=== PATIENT | female | born 1950 | race Caucasian/White ===

== ENCOUNTER → 2017-06-04 09:49 | Outpatient (CLI) | payer MEDICARE, SELFPAY ==
--- NOTE | 2017-06-04 09:54 | VDLE_ITS ---
Reason For Study: LEG PAIN AND SWELLING RIGHT LEFT GSV is normal. CFV is compressible, spontaneous, phasic, CFV is compressible, spontaneous, phasic, competent, and demonstrates normal competent and demonstrates normal augmentation. augmentation. FV is compressible, spontaneous, phasic, competent and demonstrates normal augmentation. POP V is compressible, spontaneous, phasic, competent and demonstrates normal augmentation. T/P Trunk is compressible. PTV is compressible. RT PerV is compressible. Procedure Exam performed in department. A preliminary report was called and/or faxed to Dr. Johnson. Interpretation Summary Deep veins of the right lower extremity are patent and compressible segmentally. There is no evidence of right lower extremity deep vein thrombosis. Valvular competence appears intact within the proximal deep venous system on the right . The right greater saphenous vein appears patent and compressible segmentally. Ordering Physician: Nicola Johnson Performed By: Ayleen Tong RVT
--- NOTE | 2017-06-06 10:59 | LEAS ---
Arterial Study - Arterial Study Arterial Study: This is a 66-year-old female with a history of smoking and diabetes mellitus. The patient presents with right lower extremity pain and discoloration of her toes, suspicious for ischemia. She is brought to the noninvasive vascular laboratory at this time for the purpose of bilateral noninvasive lower extremity arterial assessment. Doppler signal assessment was used to evaluate the pulses at ankle level bilaterally. The posterior tibial and dorsalis pedis pulses were triphasic bilaterally. Segmental limb pressures were obtained bilaterally. The right ankle pressure, as determined by posterior tibial pulse, was measured at 179 mmHg. The right ankle pressure, as determined by dorsalis pedis pulse, was measured at 154 mmHg. The right digital pressure was measured at 131 mmHg. The left ankle pressure, as determined by posterior tibial pulse, was measured at 189 mmHg. The left ankle pressure, as determined by dorsalis pedis pulse, was measured at 186 mmHg. The left digital pressure was measured at 148 mmHg. Pulse-volume recordings were obtained bilaterally and segmentally. Waveform amplitudes appeared to be satisfactory at all levels bilaterally, including low thigh, calf, ankle, and digital levels. Resting ankle-brachial indices were calculated bilaterally. The resting right ankle-brachial index was calculated to be 1.14. The resting left ankle-brachial index was calculated to be 1.20. Digital-brachial indices were calculated bilaterally. The right digital-brachial index was calculated to be 0.83. The left digital-brachial index was calculated to be 0.94. Impression: Based upon the findings of this resting noninvasive lower extremity arterial study, there is no evidence of significant atherosclerotic peripheral arterial occlusive disease in the lower extremities bilaterally. Triphasic waveforms were noted at ankle level bilaterally. Resting ankle-brachial indices are bilaterally normal. Digital-brachial indices are also normal bilaterally. In summary, this represents a normal resting noninvasive lower extremity arterial study bilaterally.
--- NOTE | 2017-06-06 11:02 | LEAS_ITS ---
Arterial Study - Arterial Study Arterial Study: This is a 66-year-old female with a history of smoking and diabetes mellitus. The patient presents with right lower extremity pain and discoloration of her toes, suspicious for ischemia. She is brought to the noninvasive vascular laboratory at this time for the purpose of bilateral noninvasive lower extremity arterial assessment. Doppler signal assessment was used to evaluate the pulses at ankle level bilaterally. The posterior tibial and dorsalis pedis pulses were triphasic bilaterally. Segmental limb pressures were obtained bilaterally. The right ankle pressure, as determined by posterior tibial pulse, was measured at 179 mmHg. The right ankle pressure, as determined by dorsalis pedis pulse, was measured at 154 mmHg. The right digital pressure was measured at 131 mmHg. The left ankle pressure, as determined by posterior tibial pulse, was measured at 189 mmHg. The left ankle pressure, as determined by dorsalis pedis pulse, was measured at 186 mmHg. The left digital pressure was measured at 148 mmHg. Pulse-volume recordings were obtained bilaterally and segmentally. Waveform amplitudes appeared to be satisfactory at all levels bilaterally, including low thigh, calf, ankle, and digital levels. Resting ankle-brachial indices were calculated bilaterally. The resting right ankle-brachial index was calculated to be 1.14. The resting left ankle- brachial index was calculated to be 1.20. Digital-brachial indices were calculated bilaterally. The right digital- brachial index was calculated to be 0.83. The left digital-brachial index was calculated to be 0.94. Impression: Based upon the findings of this resting noninvasive lower extremity arterial study, there is no evidence of significant atherosclerotic peripheral arterial occlusive disease in the lower extremities bilaterally. Triphasic waveforms were noted at ankle level bilaterally. Resting ankle-brachial indices are bilaterally normal. Digital-brachial indices are also normal bilaterally. In summary, this represents a normal resting noninvasive lower extremity arterial study bilaterally.
== END ==
PROVIDERS: Family Provider Family Medicine; PCP Family Medicine; Visit Provider Family Medicine
DX: I73.9 Peripheral vascular disease, unspecified (principal); M79.604 Pain in right leg
CPT/HCPCS: 93923; 93971

== ENCOUNTER → 2017-10-19 10:23 | Outpatient (CLI) | payer MEDICARE, SELFPAY | LOC: CVS 10:25 | PROVIDERS: Family Provider Family Medicine; PCP Family Medicine; Visit Provider Surgery Vascular Surgery | DX: M79.89 Other specified soft tissue disorders (principal); I87.2 Venous insufficiency (chronic) (peripheral); M79.604 Pain in right leg; M79.605 Pain in left leg | CPT/HCPCS: 93970 ==

== ENCOUNTER → 2018-04-27 09:05 | Outpatient (CLI) | payer MEDICARE, SELFPAY ==
--- NOTE | 2018-04-27 09:10 | ART_ITS ---
Reason For Study: Atherosclerosis Procedure A bilateral lower extremity continuous wave Doppler with analog waveform analysis and ankle brachial indexes. Left Segmental Pressures Left brachial= 178mmHg. Left posterior tibial artery = 187mmHg. Left dorsalis pedis artery = 206mmHg. Left digit = 163 mmHg. The left dorsalis pedis waveforms are triphasic. The left posterior tibial artery waveforms are triphasic. Right Segmental Pressures Right brachial= 157mmHg. Right posterior tibial artery = 187mmHg. Right dorsalis pedis artery = 190mmHg. Right digit = 161 mmHg. The right dorsalis pedis waveforms are triphasic. The right posterior tibial artery waveforms are triphasic. Indices The right ankle brachial index by the dorsalis pedis is 1.07. The right ankle brachial index by the posterior tibial artery is 1.05. The right digital-brachial index is 0.90. The left ankle brachial index by the dorsalis pedis is 1.16. The left ankle brachial index by the posterior tibial artery is 1.05. The left digital-brachial index is 0.92. Interpretation Summary 1. Bilateral triphasic flow with BRANDT 1.07/1.16 2. DBI 0.9/0.92. Ordering Physician: Armen Rivas Referring Physician: Nicola Johnson M.D. Performed By: Ayleen Tong RVT and Student
--- NOTE | 2018-04-27 09:10 | ADU_ITS ---
Reason For Study: Atheroslcerosis Right Velocities Left Velocities Ext. Iliac Artery, dist = 141 cm./sec. Ext Iliac Artery, dist = 167 cm./sec. Common Femoral Artery, mid = 139 cm./sec. Common Femoral Artery, mid = 154 cm./sec. Supf Femoral Artery, prox = 120 cm./sec. Supf. Femoral Artery, prox = 112 cm./sec. Supf Femoral Artery, mid = 101 cm./sec. Supf. Femoral Artery, mid = 111 cm./sec. Supf Femoral Artery, dist. = 99.3 cm./sec. Supf. Femoral Artery, dist = 101 cm./sec. Profunda Femoral Artery = 126 cm./sec. Profunda Femoral Artery = 91.9 cm./sec. Popliteal Artery, prox. = 55.2 cm./sec. Popliteal Artery, proximal, = 80.1 cm./sec. Popliteal Artery, mid = 65.4 cm./sec. Popliteal Artery, mid = 61.7 cm./sec. Popliteal Artery, dist = 90.4 cm./sec. Popliteal Artery, distal = 72.1 cm./sec. Post. Tibial Artery, prox = 76.8 cm./sec. Post Tibial Artery, mid = 118 cm./sec. Post. Tibial Artery, mid = 76.8 cm./sec. Post Tibial Artery, dist. = 72.1 cm./sec. Post. Tibial Artery, dist = 82.1 cm./sec. Post Tibial Arterty, prox was not visualized. Peroneal Artery not visualized due to pt body Peroneal Artery was not visualized due to pt body habitus. habitus. Ant. Tibial Artery, prox = 42 cm./sec. Ant.Tibial Artery, prox = 45.2 cm./sec. Ant. Tibial Artery, mid = 55 cm./sec. Ant Tibial Artery, mid = 53.8 cm./sec. Ant. Tibial Artery, dist = 60.1 cm./sec. Ant. Tibial Artery, distal = 58.1 cm./sec. Interpretation Summary 1. Bilateral with no stenosis where visualized and triphasic flow noted through tibials and into foot. Ordering Physician: Armen Rivas Referring Physician: Nicola Johnson M.D. Performed By: Ayleen Tong RVT and Student
== END ==
PROVIDERS: Family Provider Family Medicine; PCP Family Medicine; Referring Provider Surgery Vascular Surgery; Visit Provider Surgery Vascular Surgery
DX: I70.213 Atherosclerosis of native arteries of extremities with intermittent claudication, bilateral legs (principal)
CPT/HCPCS: 93922; 93925

== ENCOUNTER 2018-05-22 19:40 | Emergency (ER) | payer MEDICARE, SELFPAY ==
[2018-05-22 19:41] VITALS: BP 172/101; PULSE 104; RESP 26; TEMP 36.9; O2SAT 97; BMI 58.9
--- NOTE | 2018-05-22 19:43 | ED.RN ---
CALLED FOR EKG PER RN REQUEST, PULLED OLD EKGS FOR
--- NOTE | 2018-05-22 19:58 | RAD_ITS ---
STUDY: X-RAY CHEST REASON FOR EXAM: Female, 67 years old. Shortness of breath TECHNIQUE: Single frontal view COMPARISON: September 29, 2014 FINDINGS: The lungs are expanded. Mild interstitial prominence. Calcified granulomas of the left lung are stable. Normal size heart. Normal mediastinum and cheryle. Normal visualized pulmonary arteries. Calcified aortic arch and descending thoracic aorta. Degenerative changes of the thoracic spine. Normal visualized ribs, clavicles, and shoulders. There is no demonstrated abnormality of the visualized soft tissue structures of the upper abdomen. RAD/Chest 1 View (Portable) IMPRESSION: Stable mild interstitial prominence. Stable left calcified granulomas. Electronically Signed: Yann Tsang DO at 22:03 EDT Tel [phone], Service support ,
--- NOTE | 2018-05-22 19:59 | EKG12_ITS ---
Test Reason : PALPITATIONS Blood Pressure : / mmHG Vent. Rate : 103 BPM Atrial Rate : 103 BPM P-R Int : 166 ms QRS Dur : 092 ms QT Int : 332 ms P-R-T Axes : 060 051 039 degrees QTc Int : 434 ms Sinus tachycardia Otherwise normal ECG Confirmed by GREER BRAGG, BOB ([id number]), editor in chief DESTINY SAENZ ([id number]) on 05/24/2018 1:25:15 PM Referred By: JUN Confirmed By:BOB BUTTERFIELD MD
[2018-05-22 20:08] LABS: Basophil# 0.05 X10^3/uL; Basophil% 0.4 % (0-1); Eosinophil# 0.13 X10^3/uL; Eosinophils% 1.1 % (0-5); Hemoglobin 15.2 g/dl (12.0-15.0); Lymphocyte % 29.1 % (19-41); Mean Corpuscular Hgb 31.5 pg (27.0-32.0); Mean Corpuscular Volume 95.2 fL (81-99); Mean Platelet Vol. 12.1 fl (6.2-12.0); Monocyte# 0.85 X10^3/uL; Monocyte% 7.5 % (0-10); Neutrophil # 6.98 X10^3/uL (2.7-7.7); Neutrophil % 61.6 % (47-70); Platelet Count 275 K/mm3 (150-450); RBC Distribution Width CV 13.5 % (11.6-14.6); RBC Distribution Width SD 46.5 fl (35.1-43.9); Red Blood Count 4.83 M/mm3 (4.2-5.4); White Blood Count 11.3 K/mm3 (4.4-11.0)
[2018-05-22 20:10] LABS: POSITIVE COUNT NO; POSITIVE DIFFERENTIAL NO; POSITIVE MORPHOLOGY NO
[2018-05-22] MEDS: 0.9% Normal Saline 1,000 ML 150 ML IV (20:13)
[2018-05-22 20:27] LABS: Anion Gap 4 (5-15); BUN 13 mg/dL (7-18); BUN/Creat Ratio 15.9 RATIO (10-20); Calcium,Total 8.8 mg/dL (8.5-10.1); Chloride 101 mmol/L (98-107); Creatinine, Serum 0.82 mg/dL (0.55-1.02); EST Glomerular Filtration Rate 74 mL/min (>60); Est Glom Filt Rate - Afr Amer 90 mL/min (>60); Estimated Creatinine Clearance 48.47 ml/min; Glucose 114 mg/dL (74-106); Potassium 3.7 mmol/L (3.5-5.1); Sodium Level 137 mmol/L (136-145); Thyroid Stim Hormone (TSH) 2.84 uIU/mL (0.358-3.74)
[2018-05-22 20:40] VITALS: BP 157/92; PULSE 92; RESP 18; O2SAT 96
--- NOTE | 2018-05-22 20:49 | ED.VISSUMM ---
- ER Visit Summary Date of Service: 05/22/18 Chief Complaint: Palpitations History of Present Illness: The patient is a 67 F with a several week history of intermittent palpitations and chest heaviness. She reports a history of paroxysmal A. fib. 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 She believes she was on Rythmol and a medication that may have been metoprolol. Denies being on anticoagulant. Today the palpitations seemed worse so she called family member who brought her to the emergency room. Physical Examination: Blood pressure is 172/101, temperature 98.4, heart rate 104, respiratory rate 26, pulse ox 97% on room air. Patient is sitting upright in bed no acute distress. She is speaking full sentences. Head neck examination is unremarkable. Heart is tachycardic. Lungs sounds are clear. Abdomen is soft and nontender. Lower extremity examination was 2+ edema bilaterally. Test Results: EKG is sinus tach at 103 with no acute ischemia. CBC was a white count 11.3. Hemoglobin 15.2. Chemistry studies significant only for glucose of 114. Troponin and TSH are both unremarkable. Portable chest x-ray per my review shows chronic changes. Emergency Department Course and Treatment: With observation patient's heart rate is in the upper 70s to low 90s. Blood pressure is 119/91. I spoke with Dr. Montiel, on-call for cardiology. He recommended having the patient take a full size aspirin daily, Toprol-XL 25 mg daily, and place a 24-hour Holter monitor on the patient. He will see the patient in the office for follow-up. Patient is agreeable to this plan. She will be given aspirin and first dose of Toprol in the emergency room. Treatment Plan: [] Disposition: Discharge Impression: Palpitations with history of paroxysmal A. fib This note was generated with Total-traxation software. It may contain incorrect words, spelling, and punctuation that were not noted in review of the chart prior to signing ED Disposition - Plan for ED Patient: Referrals: Nicola Johnson DO [Primary Care Provider] -
[2018-05-22 20:54] VITALS: BP 119/91; PULSE 86; RESP 17; O2SAT 97
[2018-05-22 21:00] VITALS: BP 136/88; PULSE 97; RESP 19; O2SAT 100
--- NOTE | 2018-05-22 21:11 | ED.DEP ---
ED Disposition - Plan for ED Patient: Disposition: Home or Assisted Living Instructions: ED Palpitations Prescriptions: Aspirin 325 mg PO DAILY@0800 #30 tablet Metoprolol Succinate [Toprol Xl] 25 mg PO DAILY #30 tab.er.24h Referrals: yRder Montiel MD [STAFF PHYSICIAN] - 1-2 Weeks
[2018-05-22] MEDS: Aspirin 325 MG Tablet PO (21:18)
[2018-05-22] MEDS: Metoprolol(XL)Succ 25 MG Tablet PO (21:18)
[2018-05-22 21:27] VITALS: BP 136/80; PULSE 93; RESP 21; O2SAT 98
== END 2018-05-22 22:04 | disposition home or self-care (01) ==
PROVIDERS: Emergency Provider Emergency Medicine; Family Provider Family Medicine; PCP Family Medicine
DX: R00.2 Palpitations (principal); I48.0 Paroxysmal atrial fibrillation; G47.33 Obstructive sleep apnea (adult) (pediatric); M19.90 Unspecified osteoarthritis, unspecified site; Z72.0 Tobacco use
CPT/HCPCS: 71045; 80048; 84443; 84484; 85025; 93005; J7030; A4216

== ENCOUNTER → 2018-05-22 21:08 | Outpatient (CLI) | payer MEDICARE, SELFPAY ==
[2018-05-22 19:41] VITALS: BMI 58.9
== END ==
PROVIDERS: Family Provider Family Medicine; PCP Family Medicine; Visit Provider Internal Medicine Cardiovascular Disease
DX: R00.2 Palpitations (principal); I48.0 Paroxysmal atrial fibrillation; G47.33 Obstructive sleep apnea (adult) (pediatric); M19.90 Unspecified osteoarthritis, unspecified site; Z72.0 Tobacco use
CPT/HCPCS: 71045; 80048; 84443; 84484; 85025; 93005; 93225; 93226; 96360; 96361; 99285; J7030; A4216

== ENCOUNTER → 2018-08-16 | Outpatient (CLI) | payer MEDICARE, SELFPAY ==
[2018-07-07 15:13] VITALS: BMI 58.1
--- NOTE | 2018-08-16 14:49 | ECHOCS_ITS ---
Reason For Study: DYSPNEA/SOB Procedure This was a 2D Doppler, Color Flow transthoracic echocardiogram. The study was technically difficult. Contrast injection was performed. Exam performed in department. Left Ventricle Normal LV size. Left ventricular systolic function is normal. The estimated ejection fraction is 65 %. Diastolic function is indeterminate. No regional wall motion abnormalities noted. Right Ventricle Normal RV size. Normal systolic function. Atria Normal left atrium. Normal right atrium. No doppler evidence for ASD. Mitral Valve There is no mitral annular calcification. Normal mitral valve. Trivial mitral valve insufficiency. Tricuspid Valve Normal tricuspid valve. Trivial tricuspid valve insufficiency. Unable to estimate RV systolic pressure/pulmonary artery pressure due to technically difficult study. Aortic Valve The aortic valve is not well visualized. Pulmonic Valve The pulmonic valve is not well visualized. Great Vessels The aortic root is not well visualized. Pericardium/Pleural No pericardial effusion. Medication 22 gauge I.V. with prn adaptor inserted into right arm. Diluted definity 5ml given slow IV push to enhance endocardial definition. MMode/2D Measurements & Calculations LVIDd: 5.5 cm IVSd: 0.94 cm LAV(MOD-bp): 33.0 ml LVIDs: 3.8 cm LVPWd: 0.95 cm RVDd: 3.2 cm FS: 31.0 % LAV(MOD-bp) Indexed: 15.0 ml/m2 LAV(MOD-sp2): 39.4 ml LAV(MOD-sp4): 22.9 ml SV(MOD-sp4): 63.6 ml SV(sp4-el): 70.8 ml LVAd ap4: 33.1 cm2 EDV(MOD-sp4): 119.4 ml EDV(sp4-el): 127.5 ml LVAs ap4: 20.7 cm2 ESV(MOD-sp4): 55.8 ml ESV(sp4-el): 56.7 ml EF(MOD-sp4): 53.3 % EF(sp4-el): 55.5 % LA A4 area: 10.8 cm2 RA A4 area: 11.3 cm2 Time Measurements MV dec time: 0.30 sec Doppler Measurements & Calculations MV E max santiago: 68.5 cm/sec Lat Peak E' Santiago: 8.3 cm/sec Med Peak E' Santiago: 6.8 cm/sec MV A max santiago: 89.2 cm/sec E/E' lat: 8.3 E/E' med: 10.1 MV E/A: 0.77 Ao V2 max: 135.2 cm/sec LV V1 max: 108.7 cm/sec PA V2 max: 88.9 cm/sec Ao max P.3 mmHg LV V1 max P.7 mmHg Interpretation Summary The study was technically difficult. Contrast injection was performed. Left ventricular systolic function is normal. The estimated ejection fraction is 65 %. Trivial mitral valve insufficiency. Trivial tricuspid valve insufficiency. Unable to estimate RV systolic pressure/pulmonary artery pressure due to technically difficult study. Diastolic function is indeterminate. Ordering Physician: Ryder Montiel Referring Physician: ACOSTA KESSLER Performed By: Melissa Christensen RDCS
== END | disposition home or self-care (01) ==
LOC: CVS 14:49
PROVIDERS: Family Provider Family Medicine; PCP Family Medicine; Referring Provider Internal Medicine Cardiovascular Disease; Visit Provider Internal Medicine Cardiovascular Disease
DX: R06.00 Dyspnea, unspecified (principal); R00.2 Palpitations; I48.0 Paroxysmal atrial fibrillation
CPT/HCPCS: 93306; Q9957; A4216; C8929

== ENCOUNTER → 2019-03-29 10:45 | Outpatient (CLI) | payer MEDICARE, SELFPAY ==
[2018-07-07 15:13] VITALS: BMI 58.1
--- NOTE | 2019-03-29 10:48 | ECHOCS_ITS ---
Reason For Study: Palpitations Procedure This was a 2D Doppler, Color Flow transthoracic echocardiogram. The study was technically difficult. Contrast injection was performed. Exam performed in department. Left Ventricle Based upon the 2D echocardiographic and contrast enhanced images obtained there appears to be grossly normal left ventricular size, wall motion, and systolic function. The estimated ejection fraction is 65 %. Diastolic function is indeterminate. Right Ventricle Normal RV size. Normal systolic function. Atria The left atrium is mildly enlarged. Normal right atrium. No doppler evidence for ASD. Mitral Valve There is mild mitral annular calcification. Extension of the mitral annular calcification onto the base of the posterior mitral valve leaflet. Trivial mitral valve insufficiency. Tricuspid Valve Normal tricuspid valve. Trivial tricuspid valve insufficiency. Unable to estimate RV systolic pressure/pulmonary artery pressure due to technically difficult study. Aortic Valve The aortic valve is not well visualized. Pulmonic Valve The pulmonic valve is not well visualized. Great Vessels The aortic root is not well visualized. Pericardium/Pleural No pericardial effusion. Epicardial fat. Medication 22 gauge I.V. with prn adaptor inserted into right arm. Diluted definity 3ml given slow IV push to enhance endocardial definition. MMode/2D Measurements & Calculations LVIDd: 5.2 cm IVSd: 1.0 cm LA dimension: 3.9 cm LVIDs: 3.5 cm LVPWd: 1.1 cm FS: 31.7 % LAV(MOD-bp): 55.4 ml LA A4 area: 19.0 cm2 RA A4 area: 11.3 cm2 LAV(MOD-bp) Indexed: 25.1 ml/m2 LAV(MOD-sp2): 52.8 ml LAV(MOD-sp4): 55.6 ml Time Measurements MV dec time: 0.19 sec Doppler Measurements & Calculations MV E max santiago: 68.9 cm/sec Lat Peak E' Santiago: 7.2 cm/sec Med Peak E' Santiago: 6.7 cm/sec MV A max santiago: 86.6 cm/sec E/E' lat: 9.5 E/E' med: 10.3 MV E/A: 0.80 MV V2 max: 122.1 cm/sec MV P1/2t max santiago: 98.9 cm/sec Ao V2 max: 136.3 cm/sec MV max P.0 mmHg MV P1/2t: 46.8 msec Ao max P.4 mmHg MV V2 mean: 71.9 cm/sec MV dec slope: 618.4 cm/sec2 MV mean P.4 mmHg MV V2 VTI: 25.7 cm MVA(P1/2t): 4.7 cm2 LV V1 max: 93.0 cm/sec PA V2 max: 88.6 cm/sec LV V1 max P.5 mmHg Interpretation Summary The study was technically difficult. Contrast injection was performed. Based upon the 2D echocardiographic and contrast enhanced images obtained there appears to be grossly normal left ventricular size, wall motion, and systolic function. The estimated ejection fraction is 65 %. The left atrium is mildly enlarged. There is mild mitral annular calcification. Extension of the mitral annular calcification onto the base of the posterior mitral valve leaflet. Trivial mitral valve insufficiency. Trivial tricuspid valve insufficiency. Epicardial fat. Unable to estimate RV systolic pressure/pulmonary artery pressure due to technically difficult study. Diastolic function is indeterminate. Ordering Physician: Jarett Hurley Referring Physician: Jarett Hurley V Performed By: Juliocesar Romero RCS
== END ==
LOC: CVS 10:46
PROVIDERS: PCP Preventive Medicine Occupational Medicine; Referring Provider Internal Medicine Pulmonary Disease; Visit Provider Internal Medicine Pulmonary Disease
DX: R06.00 Dyspnea, unspecified (principal); R00.2 Palpitations
CPT/HCPCS: 93306; Q9957; A4216; C8929

== ENCOUNTER → 2019-04-19 10:30 | Outpatient (CLI) | payer MEDICARE, SELFPAY ==
[2018-07-07 15:13] VITALS: BMI 58.1
[2019-04-19 11:35] LABS: Erythrocyte Sedimentation Rate 14 mm/hr (0-30)
[2019-04-19 11:37] LABS: Hematocrit 43.3 % (37-47); Hemoglobin 13.8 g/dL (12.0-15.0); Mean Corp Hgb Conc 31.9 g/dL (32-36); Mean Corpuscular Hgb 30.3 pg (27.0-32.0); Mean Platelet Vol. 11.9 fl (6.2-12.0); Platelet Count 261 K/mm3 (150-450); RBC Distribution Width SD 45.1 fl (35.1-43.9); Red Blood Count 4.56 M/mm3 (4.2-5.4); White Blood Count 8.4 K/mm3 (4.4-11.0)
[2019-04-19 12:14] LABS: ALB/GLOB Ratio 0.9 RATIO (0.9-2.4); AST(SGOT) 8 U/L (15-37); Alanine Aminotransfer ALT/SGPT 20 U/L (13-56); Albumin, Serum 3.3 g/dL (3.2-5.0); Alkaline Phosphatase 119 U/L (45-117); Anion Gap 4 (5-15); BUN 13 mg/dL (7-18); BUN/Creat Ratio 16.6 RATIO (10-20); Calcium,Total 8.5 mg/dL (8.5-10.1); Chloride 103 mmol/L (98-107); Creatinine, Serum 0.78 mg/dL (0.55-1.02); EST Glomerular Filtration Rate 78 mL/min (>60); Est Glom Filt Rate - Afr Amer 94 mL/min (>60); Globulin 3.8 g/dL (2.2-4.2); Glucose 203 mg/dL (74-106); Protein, Total 7.1 g/dL (6.4-8.2); Rheumatoid Factor < 10.0 IU/mL (<15); Sodium Level 137 mmol/L (136-145); Thyroid Stim Hormone (TSH) 1.98 uIU/mL (0.358-3.74)
[2019-04-20 15:45] LABS: ANTINUCLEAR ANTIBODIES DIRECT Negative (Negative)
== END ==
LOC: LAB 10:32
PROVIDERS: PCP Preventive Medicine Occupational Medicine; Visit Provider Student in an Organized Health Care Education/Training Program
DX: M25.50 Pain in unspecified joint (principal); F41.9 Anxiety disorder, unspecified
CPT/HCPCS: 36415; 80053; 84443; 85027; 85652; 86038; 86140; 86431

== ENCOUNTER 2019-07-16 12:22 | Inpatient (IN) | payer MEDICARE, SELFPAY ==
[2018-07-07 15:13] VITALS: BMI 58.1
[2019-07-16] VITALS (14 sets, daily range): BP systolic 103–166; BP diastolic 77–92; PULSE 94–117; RESP 18–30; TEMP 36.6–37.8; O2SAT 94–98; BMI 58.8; BMI 58.1
--- NOTE | 2019-07-16 12:39 | RAD_ITS ---
STUDY: X-RAY CHEST REASON FOR EXAM: Female, 68 years old. CP SINCE YESTERDAY TECHNIQUE: Single frontal view of the chest. COMPARISON: May 22, 2018. FINDINGS: There are stable prominent interstitial markings. There is no new focal consolidation. There is a stable well-circumscribed round calcification within the left midlung which may reflect a granuloma. There is mild cardiomegaly. Normal mediastinum and cheryle. Normal visualized pulmonary arteries. Normal visualized aortic arch and descending thoracic aorta. There are diffuse degenerative changes of the visualized thoracic spine. Normal visualized ribs, clavicles, and shoulders. There is no demonstrated abnormality of the visualized soft tissue structures of the upper abdomen. RAD/Chest 1 View (Portable) IMPRESSION: Cardiomegaly. Electronically Signed: Viviane Bo MD at 14:12 EDT Tel , Service support ,
--- NOTE | 2019-07-16 12:40 | EKG12_ITS ---
Test Reason : Blood Pressure : / mmHG Vent. Rate : 114 BPM Atrial Rate : 114 BPM P-R Int : 162 ms QRS Dur : 094 ms QT Int : 320 ms P-R-T Axes : 068 -23 066 degrees QTc Int : 441 ms Sinus tachycardia Otherwise normal ECG Confirmed by BOB BUTTERFIELD MD ([id number]), editor department DIANA BERMAN ([id number] on 07/18/2019 3:18:33 PM Referred By: Confirmed By:BOB BUTTERFIELD MD
--- NOTE | 2019-07-16 12:43 | ED.VIS.GEN ---
History of Present Illness Chief Complaint: Chest Pain Informant: Patient Onset: Days - 2 days Context: Gradual Onset Current Severity: Moderate Maximum Severity: Moderate Narrative: Patient presents with chest pain or shortness of breath of the past 2 days. Patient states she went to the doctor last Wednesday to get her back adjusted. She woke the next morning with pain around her ribs and up into the left side of her neck. She does feel short of breath. She is coughing but states is not really any worse than her baseline. She has not noted a fever at home. - Past Medical History (1) Diabetes mellitus type 2 in obese Status: Chronic (2) Hypercholesteremia Status: Chronic (3) Obesity Status: Chronic (4) Obstructive sleep apnea Status: Chronic (5) Osteoarthritis Status: Chronic (6) Paroxysmal atrial fibrillation Status: Chronic (7) Peripheral vascular disease Status: Chronic Past Medical History - Allergies and Home Meds Allergies/Adverse Reactions: Allergies acetaminophen [From Darvocet-N] Allergy (Verified 07/16/19 12:31) Hives ampicillin Allergy (Verified 07/16/19 12:31) Hives codeine Allergy (Verified 07/16/19 12:31) Hives meperidine HCl [From Demerol] Allergy (Verified 07/16/19 12:31) Hives Penicillins [PCN] Allergy (Verified 07/16/19 12:31) Hives propoxyphene napsylate [From Darvocet-N] Allergy (Verified 07/16/19 12:31) Hives Primary Care Physician: Jarett Davies DO [COURTESY STAFF PHYSICIAN] - Prior records reviewed: Yes Surgical History: appendectomy, cholecystectomy, - - Patient has bilateral knee replacement cholecystectomy appendectomy Smoking Status: Current every day smoker - Family History Maternal Family History: Family History (Last Reviewed 07/07/18 @ 15:18 by Charleen Hall) Mother Heart disease Brother Heart disease Grandfather CVA (cerebral vascular accident) Grandmother Myocardial infarction Family History: Reports: Unknown, No pertinent history Review of Systems General: Denies: Fever Eyes: Denies: Visual changes - bilaterally ENT: Denies: Bilateral ear pain Cardiovascular: Reports: Chest pain Respiratory: Reports: Dyspnea, Cough Gastrointestinal: Denies: Abdominal pain, Nausea, Vomiting, Diarrhea Genitourinary: Denies: Dysuria Musculoskeletal: Denies: Extremity Pain Skin: Denies: Rash Neurological: Denies: Headache Hematologic: Denies: Easy bruising Allergy: Denies: Uticaria Physical Exam Vital Signs/Narrative: Vital Signs Temp Pulse Resp BP Pulse Ox 07/16/19 12:26 117 H 24 H 95 07/16/19 12:25 100.1 F H 117 H 30 H 166/79 H 94 07/16/19 12:22 100.1 F H 117 H 30 H 166/79 H 94 Inital Vital Signs reviewed: Yes General: Well nourished, Well developed Head: Normocephalic ENT: Moist mucous membranes Neck: Supple Cardiovascular: Tachycardia Respiratory: No distress, Diminished, - - Mild expiratory wheezes, most noted left upper lung Abdomen: Soft, Nontender Skin: Normal color Neurological: Alert, Oriented x3 Psychological: Normal affect Diagnostic/Tx/Re-eval 07/16/19 12:39 Chest 1 View (Portable) [RAD] Stat -Cardiomegaly Laboratory Results 07/16/19 07/16/19 07/16/19 12:35 12:35 12:35 WBC 17.5 H RBC 4.47 Hgb 13.8 Hct 42.7 MCV 95.5 MCH 30.9 MCHC 32.3 RDW Std Deviation 45.6 H RDW Coeff of Penny 13.1 Plt Count 317 MPV 11.1 Immature Gran % (Auto) 0.600 Neut % (Auto) 79.3 H Lymph % (Auto) 11.0 L Levy % (Auto) 8.5 Eos % (Auto) 0.2 Baso % (Auto) 0.4 Absolute Neuts (auto) 13.8 H Absolute Lymphs (auto) 1.92 Nucleated RBC % 0 Sodium 134 L Potassium 4.3 Chloride 98 Carbon Dioxide 30.0 Anion Gap 6 BUN 10 Creatinine 0.70 Estim Creat Clear Calc 39.21 Est GFR (MDRD) Af Amer 107 Est GFR (MDRD) Non-Af 89 BUN/Creatinine Ratio 14.3 Glucose 141 H Lactic Acid 1.1 Calcium 9.0 Total Bilirubin 1.00 Direct Bilirubin 0.28 AST 10 L ALT 17 Alkaline Phosphatase 96 Troponin I < 0.015 Total Protein 7.3 Albumin 2.9 L Globulin 4.4 H - EKG Initial EKG Interpretation: Sinus Tachycardia - Sinus tachycardia at 114. No acute ST change. - Medical Decision Making Patient was given albuterol MDI with spacer. Vital signs remained stable. Chest x-ray was read as cardiomegaly, however I am suspicious that she may have an infiltrate at the left base. She will be covered with Levaquin. Troponin is negative at this time with greater than 6 hours of pain. Covid test is currently pending. Patient will be admitted to the Covid floor for further testing and evaluation. ED Disposition - Plan for ED Patient: Disposition: Acute Care Hospital [facility] Diagnosis: Pneumonia, Chest pain Referrals: Jarett Davies DO [COURTESY STAFF PHYSICIAN] -
[2019-07-16 12:47] LABS: Absolute Lymphocyte Count 1.92 X10^3/uL (0.83-4.51); Absolute Neutrophil Count 13.8 X10^3/uL (2.0-7.7); Basophil# 0.07 X10^3/uL; Basophil% 0.4 % (0-1); Eosinophil# 0.03 X10^3/uL; Eosinophils% 0.2 % (0-5); Hematocrit 42.7 % (37-47); Hemoglobin 13.8 g/dL (12.0-15.0); Lymphocyte # 1.92 X10^3/ul (4.0); Mean Corp Hgb Conc 32.3 g/dL (32-36); Mean Corpuscular Hgb 30.9 pg (27.0-32.0); Mean Corpuscular Volume 95.5 fL (81-99); Mean Platelet Vol. 11.1 fl (6.2-12.0); Monocyte# 1.49 X10^3/uL; Monocyte% 8.5 % (0-10); NRBC Flagged by Analyzer 0 % (0-5); Neutrophil # 13.84 X10^3/uL (2.7-7.7); Neutrophil % 79.3 % (47-70); Platelet Count 317 K/mm3 (150-450); RBC Distribution Width CV 13.1 % (11.6-14.6); RBC Distribution Width SD 45.6 fl (35.1-43.9); Red Blood Count 4.47 M/mm3 (4.2-5.4); White Blood Count 17.5 K/mm3 (4.4-11.0)
[2019-07-16] MEDS: Acetaminophen 325 MG Tablet 650 MG PO (13:03)
[2019-07-16] MEDS: Aspirin 81 MG TAB.CHEW 324 MG PO (13:03)
[2019-07-16 13:06] LABS: AST(SGOT) 10 U/L (15-37); Alanine Aminotransfer ALT/SGPT 17 U/L (13-56); Albumin, Serum 2.9 g/dL (3.2-5.0); Alkaline Phosphatase 96 U/L (45-117); Anion Gap 6 (5-15); BUN 10 mg/dL (7-18); BUN/Creat Ratio 14.3 RATIO (10-20); Bilirubin, Direct 0.28 mg/dL (0.00-0.30); Chloride 98 mmol/L (98-107); EST Glomerular Filtration Rate 89 mL/min (>60); Est Glom Filt Rate - Afr Amer 107 mL/min (>60); Estimated Creatinine Clearance 39.21 ml/min; Globulin 4.4 g/dL (2.2-4.2); Glucose 141 mg/dL (74-106); Potassium 4.3 mmol/L (3.5-5.1); Protein, Total 7.3 g/dL (6.4-8.2); Sodium Level 134 mmol/L (136-145)
[2019-07-16 13:13] LABS: Lactic Acid 1.1 mmol/L (0.4-1.9)
[2019-07-16] MEDS: INHALER, ASSIST DEVICES 1 EACH SPACER INHALATION (13:56)
--- NOTE | 2019-07-16 14:21 | PCM.HP.STD ---
Problem List (1) Acute respiratory failure with hypoxia Status: Acute (2) Pneumonia Status: Acute Qualifiers: Pneumonia type: due to unspecified organism Laterality: left Lung location: lower lobe of lung Qualified Code(s): J18.9 - Pneumonia, unspecified organism (3) COPD exacerbation Status: Acute (4) HTN (hypertension) Status: Chronic Qualifiers: Hypertension type: essential hypertension Qualified Code(s): I10 - Essential (primary) hypertension (5) Morbid obesity Status: Chronic (6) Hypercholesteremia Status: Chronic (7) Peripheral vascular disease Status: Chronic (8) Osteoarthritis Status: Chronic Qualifiers: Osteoarthritis location: unspecified site Osteoarthritis type: unspecified Qualified Code(s): M19.90 - Unspecified osteoarthritis, unspecified site (9) Tobacco abuse disorder Status: Chronic (10) Diabetes mellitus type 2 in obese Status: Chronic (11) Paroxysmal atrial fibrillation Status: Chronic (12) Obstructive sleep apnea Status: Chronic History of Present Illness Date of Admission: 07/16/19 Chief Complaint: Dyspnea, cough, chest pain, fever The patient is a 68 y/o F w/ PMHx: Chronic COPD, Tobacco use, TUSHAR with q HS O2, HTN, HLD, PVD, PAF, Diabetes mellitus type II, Morbid Obesity who presents to the [facility] ED on 07/16/19 who presents to the [facility] ED on 07/16/19 with history of fatigue, malaise, lower back discomfort with adjustment per her primary care on Wednesday with following this awakening on Wednesday noting onset of worsening back discomfort, some neck discomfort, chest tightness and dyspnea as well as increased cough without productive sputum and mild nasal congestion with denied nausea, emesis, abdominal pain, diarrhea, alterations in sense of taste or smell, headache however not improving from to ED presentation with noted elevated temperatures although she denied any history of fever prior to this or did not notice it she states. She lives with several family members and friends and denies any of them having been recently ill. Work-up in the ED included T1 100.1, heart rate 117, BP 166/79, respiratory rate 30, 94% on room air, CBC with WC 17.5, hemoglobin 13.8, platelet 317 with left shift, no evidence of lymphopenia, CMP with sodium 134, glucose 141, lactic acid 1.1, otherwise not marked appearing, troponin less than 0.015, EKG with sinus tachycardia with no acute evidence of ischemia, chest x-ray read currently pending but per evaluation suspicious for possible left basilar infiltrate. In the ED patient administered aspirin, albuterol, Tylenol and Levaquin therapy. Past Medical History Past Medical History (Chronic Problems): Chronic Problems (Last Reviewed 07/07/18 @ 15:18 by Charleen Hall) HTN (hypertension) (Chronic) Morbid obesity (Chronic) Hypercholesteremia (Chronic) Peripheral vascular disease (Chronic) Urinary, incontinence, stress female (Chronic) Osteoarthritis (Chronic) Tobacco abuse disorder (Chronic) Obesity (Chronic) Diabetes mellitus type 2 in obese (Chronic) Paroxysmal atrial fibrillation (Chronic) Obstructive sleep apnea (Chronic) Medical History: Medical History (Last Reviewed 07/07/18 @ 15:18 by Charleen Hall) Hypercholesteremia (Chronic) E78.00 Peripheral vascular disease (Chronic) I73.9 Palpitations (Acute) R00.2 Vertigo (Acute) R42 Osteoarthritis (Chronic) M19.90 Diabetes mellitus type 2 in obese (Chronic) E11.9, E66.9 Paroxysmal atrial fibrillation (Chronic) I48.0 Obstructive sleep apnea (Chronic) G47.33 Allergies acetaminophen [From Darvocet-N] Allergy (Verified 07/16/19 12:31) Hives ampicillin Allergy (Verified 07/16/19 12:31) Hives codeine Allergy (Verified 07/16/19 12:31) Hives meperidine HCl [From Demerol] Allergy (Verified 07/16/19 12:31) Hives Penicillins [PCN] Allergy (Verified 07/16/19 12:31) Hives propoxyphene napsylate [From Darvocet-N] Allergy (Verified 07/16/19 12:31) Hives Home Medications: Ambulatory Orders Medication Instructions Recorded Insulin Glargine [Lantus SoloStar 100 units SUBCUT QHS 03/14/14 Pen] Liraglutide [Victoza 2-Bronson] 0.8 mg SQ DAILY 12/04/14 Oxycodone HCl/Acetaminophen 1 tab PO Q6H 04/02/16 [Percocet 5/325] Gabapentin [Neurontin] 300 mg PO TID 05/22/18 aspirin 81 mg tablet,delayed 81 mg PO DAILY #90 tab 05/16/19 release metoprolol succinate 25 mg 25 mg PO DAILY #90 tab 07/10/19 tablet,extended release 24 hr Fluticasone 0.05% [Flonase Nasal 1 spray NARES BID 07/16/19 [place]] Surgical History: Surgical History (Last Reviewed 07/07/18 @ 15:18 by Charleen Hall) History of appendectomy Z90.49 History of cardiac catheterization Z98.890 History of hysterectomy Z90.710 History of knee replacement Z96.659 Bilateral History of lumpectomy of both breasts Z98.890 History of tubal ligation Z98.51 Surgical History: appendectomy, cholecystectomy, - - Patient has bilateral knee replacement cholecystectomy appendectomy Psychiatric History: Anxiety, Depression [employer] History: No pertinent [employer] history Lives: With Family, Friends Smoking Status: Current every day smoker - Patient with ongoing 1 pack/day cigarette tobacco usage since youth. Tobacco Use: Cigarettes Alcohol: None Drugs: None - *Family History Maternal Family History: Family History (Last Reviewed 07/07/18 @ 15:18 by Charleen Hall) Mother Heart disease Brother Heart disease Grandfather CVA (cerebral vascular accident) Grandmother Myocardial infarction History Items: High Cholesterol, Heart Disease, Hypertension Paternal Family History: Family History (Last Reviewed 07/07/18 @ 15:18 by Cahrleen Hall) Mother Heart disease Brother Heart disease Grandfather CVA (cerebral vascular accident) Grandmother Myocardial infarction History Items: Hypertension Review of Systems Constitutional: Reports: Anorexia, Fever, Malaise, Weakness, Fatigue. Denies: Chills, Weight Change HEENT: Reports: Nasal Congestion, Sinus Congestion, Sinus Drainage. Denies: Head Aches Cardiovascular: Reports: Chest Tightness. Denies: Chest Pain, Chest Pressure, Light Headedness, Orthopnea, Palpitations, Syncope Respiratory: Reports: Cough, Shortness of Breath, Shortness of breath at rest, Shortness of breath upon exertion, Wheezing. Denies: Sputum production Gastrointestinal: Denies: Abdominal Pain, Nausea, Vomiting Genitourinary: Denies: Dysuria Musculoskeletal: Reports: Back Pain, Joint Pain, Muscle pain. Denies: Joint Tenderness Skin: Denies: Rash, Wounds Neurological: Denies: Numbness, Tingling, Focal weakness Psychiatric: Denies: Anxiety, Depression, Homicidal Ideations, Suicidal Ideations Hematologic/ Lymphatic: Denies: Easy Bruising, Easy Bleeding VTE Information - Inpt Only VTE Present on Admission: No VTE Mechan Device Prophylaxis: SCD's VTE Pharm Prophylaxis ordered?: Yes Patient Problems: Active and Suspected Problems (Last Reviewed 07/07/18 @ 15:18 by Charleen Hall) COPD exacerbation (Acute) Acute respiratory failure with hypoxia (Acute) Pneumonia (Acute) Subjective: Patient seated upright in ED bed, fatigued appearance, some conversational dyspnea noted, mild accessory muscle usage. Objective: Physical Examination: General: awake, alert, oriented x 3 and cooperative, seated upright in the ED bed, some conversational dyspnea, some accessory muscle usage, fatigued appearance, no market distress. Skin: normal color, turgor, no icterus, cyanosis. HEENT: AT/NC, EOMI, PERRLA, dry MM, no carotid bruits or JVD noted. Lungs: Diminished breath sounds, greater left based, and expiratory wheezing, worse posterior schmidt, mild increased work of breathing with very mild accessory muscle usage and some conversational dyspnea, no obvious rhonchi or rales. Heart: Tachycardic with regular rhythm; no gallop, rub audible. Abdomen: soft, morbidly obese, NTTP, ND, distant normal BS, no obvious HSM; however, habitus makes examination difficult. Extremities: no cyanosis, clubbing, or edema. Neurological: patient awake, alert, oriented x 3; cognitive function intact; pupils equally reactive to light and accomodation; cranial nerves II-XII grossly normal, moving all 4 extremities, no focal deficits, strength severely globally decreased secondary to acute presentation. Psychiatric: affect appears fatigued, ill-appearing, no acute evidence of depressive or anxiety feelings. - Physical Exam Vitals/I&O's: Vital Signs Temp Pulse Resp BP Pulse Ox 98 F 108 H 20 H 134/77 H 98 07/16/19 13:34 07/16/19 13:56 07/16/19 13:56 07/16/19 13:34 07/16/19 13:34 Oxygen Delivery Method Room Air Weight: 301 lb 9.478 oz Body Mass Index (BMI) 58.8 Laboratory Results 07/16/19 12:35: WBC 17.5 H, RBC 4.47, Hgb 13.8, Hct 42.7, MCV 95.5, MCH 30.9, MCHC 32.3, RDW Std Deviation 45.6 H, RDW Coeff of Penny 13.1, Plt Count 317, MPV 11.1, Immature Gran % (Auto) 0.600, Neut % (Auto) 79.3 H, Lymph % (Auto) 11.0 L, Haralson % (Auto) 8.5, Eos % (Auto) 0.2, Baso % (Auto) 0.4, Absolute Neuts (auto) 13.8 H, Absolute Lymphs (auto) 1.92, Nucleated RBC % 0 07/16/19 12:35: Sodium 134 L, Potassium 4.3, Chloride 98, Carbon Dioxide 30.0, Anion Gap 6, BUN 10, Creatinine 0.70, Estim Creat Clear Calc 39.21, Est GFR (MDRD) Af Amer 107, Est GFR (MDRD) Non-Af 89, BUN/Creatinine Ratio 14.3, Glucose 141 H, Calcium 9.0, Total Bilirubin 1.00, Direct Bilirubin 0.28, AST 10 L, ALT 17, Alkaline Phosphatase 96, Troponin I < 0.015, Total Protein 7.3, Albumin 2.9 L, Globulin 4.4 H 07/16/19 12:35: Lactic Acid 1.1 Assessment/Plan All Active Problems (Last Reviewed 07/07/18 @ 15:18 by Charleen Hall) COPD exacerbation (Acute) Acute respiratory failure with hypoxia (Acute) Pneumonia (Acute) Palpitations (Acute) Vertigo (Acute) Fatigue, malaise, lower back discomfort with adjustment per her primary care on Wednesday with following this awakening on Wednesday noting onset of worsening back discomfort, some neck discomfort, chest tightness and dyspnea as well as increased cough without productive sputum and mild nasal congestion with denied nausea, emesis, abdominal pain, diarrhea, alterations in sense of taste or smell, headache however not improving from to ED presentation with noted elevated temperatures although she denied any history of fever prior to this or did not notice it she states. 1. Acute Sepsis secondary to Acute Hypoxic Respiratory Failure secondary to Acute on chronic COPD exacerbation with suspected LLL PNA, Possible Acute Viral Syndrome, COVID-19: Will admit to the COVID unit with pending admission COVID testing per ED, will maintain on oxygen with wean as tolerated to room air, ATC duoneb, PRN albuterol, maintain on IV Levaquin, initiate and continue IV solumedrol, HOB, IS parameters w/ pending sputum cultures, respiratory viral panel and urine antigens, will obtain procalcitonin, CRP, D-dimer, CPK, Ferritin, LDH, cycle cardiac enzymes, repeat EKG in AM, continue supportive care including q 2 hour turning, judicious hydration, closely monitor for worsening status. 2. PAF: We will continue patient home metoprolol regimen, not anticoagulated. 3. Hypertension: Continue home regimen including metoprolol, PRN hydralazine. 4. Hyperlipidemia: Not on regimen, FLP in AM. 5. Morbid Obesity: Weight loss and lifestyle changes encouraged, nutrition consulted. 6. PVD: Continue aspirin, hypertensive regimen, diabetic regimen, FLP in a.m. as noted but not currently on statin therapy. 7. Tobacco Abuse: Encouraged cessation, inpatient consultation per RT, NR if desired. 8. Chronic pain syndrome: We will continue patient chronic scheduled narcotic regimen with current breakthrough given acute presentation as noted. 9. TUSHAR: Notes need for repeat assessment, following outpatient with Dr. Hurley, uses oxygen supplementation at night only. 10. GERD: Maintain on famotidine. 11. DVT prophylaxis: SCDs, Lovenox with pending d-dimer and if further elevated given COVID concerns will transition to higher dose. 12. CODE status: Patient does not have HCPOA nor living will in place. Given patient's comorbidities encouraged her to consider settings up another that she could discuss this with case management/social work. Discussed CODE status at length including difference between FULL code, DNR-CCA and DNR-CC status. Following discussions about the differences in these status, requested Full Code. Advanced Care Planning Face to Face Time: 16 minutes. Inpatient E&M: 21172 Init Hosp L3 Procedures: 20873 Advncd Care Plan 30 Min
--- NOTE | 2019-07-16 14:28 | NURSING ---
MS2 COVID FLOOR PNEUMONIA, CP WHITE
--- NOTE | 2019-07-16 14:42 | NURSING ---
CV ICU 203
[2019-07-16] MEDS: levoFLOXacin IV 750 MG/150 ML BAG 100 MG IV (15:19)
[2019-07-16 15:45] LABS: D-Dimer Quantitative (DVT/PE) 4.15 FEU/ug/m (0.27-0.49)
--- NOTE | 2019-07-16 16:19 | CT_ITS ---
STUDY: CTA CHEST REASON FOR EXAM: Female, 68 years old. COUGH,FATIGUE,MALAISE,LOW BACK Pain, chest TIGHNESS,DYSPNEA --history of respiratory FAILURE,PNEUMONIA,COPD, diabetes, hypertension-- +SMOKER 1PPD RADIATION DOSAGE (If Supplied By Facility): CTDIvol = ( 11.47 ) mGy, DLP = ( 500.17 ) mGycm TECHNIQUE: The examination was performed with the intravenous administration of 100CC ISOVUE 370. Post-processing of the angiographic images was performed, with multiplanar reformation and 3D reconstruction. Individualized dose optimization techniques were used for this CT. COMPARISON: None. FINDINGS: There is a small left pleural effusion associated with dependent consolidation within the left lower lobe. There is minimal dependent atelectasis within the right lower lobe. There are scattered tree-in-bud opacities throughout the lungs. There is bronchiectasis within the right middle lobe associated with partial collapse of the medial segment. There are scattered granulomas. There is a 2.3 mm nodule within the left upper lobe. Normal enhancement of the main pulmonary artery and right and left pulmonary arteries. Normal enhancement of the bilateral peripheral pulmonary arteries. There is no demonstrated pulmonary embolism. There is atherosclerotic calcification of the aortic arch . There is no demonstrated aortic dissection. There are calcifications of the coronary arteries. There is a small pericardial effusion measuring up to 5.1 mm. There are calcified mediastinal and hilar lymph nodes. Normal visualized trachea and bronchi. Normal chest wall structures. There are degenerative changes of thoracic spine. The limited images of the upper abdomen demonstrates splenic granulomas. There is a well-circumscribed low-attenuation 1.2 cm rounded focus within the left hepatic lobe which may reflect underlying granulomas. CT/CTA Chest W/WO Contrast IMPRESSION: No demonstrated pulmonary embolism or arterial dissection. Scattered tree-in-bud opacities, suggestive of small airway disease possibly of an infectious etiology. Left pleural effusion associated with dependent consolidation within the left lower lobe. Atherosclerosis. Minimal right basilar dependent atelectasis. Evidence of prior granulomatous disease. Electronically Signed: Viviane Bo MD at 19:04 EDT Tel , Service support ,
[2019-07-16] MEDS: 0.9% Normal Saline 1,000 ML 100 ML IV (16:29)
[2019-07-16] MEDS: oxyCODONE 5 MG Tablet PO ×2 (16:30→21:58)
[2019-07-16] MEDS: Insulin Lispro 100 UNIT/ML INSULN.PEN SC ×2 (16:30→21:50)
[2019-07-16 16:31] LABS: Bedside Glucose 162 mg/dL (70-110)
[2019-07-16] MEDS: MethylPREDNISolone 125 MG/2 ML Vial IV (16:34)
[2019-07-16 17:05] LABS: CPK Total, Creatine Kinase 26 U/L (26-192); Ferritin 248 ng/mL (8-252); LDH 188 U/L (84-246); Magnesium 1.8 mg/dL (1.6-2.6)
[2019-07-16] MEDS: Enoxaparin 150 MG/ML Syringe 140 MG SC (18:40)
[2019-07-16] MEDS: Ipratropium/Albuterol Sulfate 3 ML AMPUL.NEB INHALATION (19:25)
[2019-07-16] MEDS: Fluticasone 0.05% 1 SPRAY NASAL.SRY NASAL (21:48)
[2019-07-16] MEDS: 0.9% Saline Lock 10 ML Syringe IV (21:49)
[2019-07-16] MEDS: Gabapentin 300 MG Capsule PO (21:49)
[2019-07-16 22:36] LABS: Bedside Glucose 248 mg/dL (70-110)
--- NOTE | 2019-07-16 22:45 | NURSING ---
Report given to Lisa cuevasu weigh and charge worker at this time.
--- NOTE | 2019-07-16 22:58 | NURSING ---
Pts nandini Holloway aware of pts transfer to pcu 128 at this time.
[2019-07-17] VITALS (10 sets, daily range): BP systolic 119–153; BP diastolic 67–84; PULSE 72–114; RESP 16–22; TEMP 36.4–36.9; O2SAT 92–96
[2019-07-17] MEDS: Acetaminophen 325 MG Tablet 650 MG PO (00:52)
[2019-07-17] MEDS: guaiFENesin 10 ML UDC (200MG/10ML) 20 ML PO ×2 (01:37→14:12)
[2019-07-17] MEDS: Albuterol 2.5 MG/3 ML VIAL.NEB. INHALATION (01:49)
[2019-07-17] MEDS: oxyCODONE 5 MG Tablet PO ×5 (02:01→23:14)
[2019-07-17] MEDS: 0.9% Normal Saline 1,000 ML 100 ML IV ×2 (05:07→17:16)
[2019-07-17] MEDS: Enoxaparin 150 MG/ML Syringe 140 MG SC ×2 (05:29→19:00)
[2019-07-17] MEDS: Gabapentin 300 MG Capsule PO ×3 (05:29→21:58)
[2019-07-17] MEDS: 0.9% Saline Lock 10 ML Syringe IV ×2 (05:29→14:13)
--- NOTE | 2019-07-17 05:55 | RAD_ITS ---
STUDY: X-RAY CHEST REASON FOR EXAM: Female, 68 years old. Shortness of breath and cough TECHNIQUE: Single AP portable view of the chest. COMPARISON: 07/16/2019 FINDINGS: Stable thickening of the interstitial lung markings. There is a calcified granuloma in the peripheral left upper lobe. A small left pleural effusion. Mild enlargement of the cardiac silhouette. Normal mediastinum and cheryle. Normal visualized pulmonary arteries. Normal visualized aortic arch and descending thoracic aorta. Normal visualized thoracic spine. Normal visualized ribs, clavicles, and shoulders. There is no demonstrated abnormality of the visualized soft tissue structures of the upper abdomen. RAD/Chest 1 View (Portable) IMPRESSION: Diffuse pulmonary edema and small left pleural effusion suggestive of acute CHF exacerbation. Electronically Signed: Carl Canchola, at 17:03 EDT Tel , Service support ,
--- NOTE | 2019-07-17 05:55 | EKG12_ITS ---
Test Reason : AM EKG Blood Pressure : / mmHG Vent. Rate : 091 BPM Atrial Rate : 091 BPM P-R Int : 178 ms QRS Dur : 090 ms QT Int : 368 ms P-R-T Axes : 074 -18 043 degrees QTc Int : 452 ms Normal sinus rhythm Low voltage QRS Borderline ECG Confirmed by EMILY BRAGG, CLEMENCIA ([id number]), editorial specialist DIANA BERMAN ([id number]) on 07/20/2019 3:07:08 PM Referred By: ANIVAL Confirmed By:CLEMENCIA DIAZ MD
[2019-07-17 07:01] LABS: Absolute Lymphocyte Count 0.89 X10^3/uL (0.83-4.51); Absolute Neutrophil Count 13.8 X10^3/uL (2.0-7.7); Basophil# 0.01 X10^3/uL; Basophil% 0.1 % (0-1); Hematocrit 37.9 % (37-47); Hemoglobin 12.4 g/dL (12.0-15.0); Lymphocyte # 0.89 X10^3/ul (4.0); Lymphocyte % 5.8 % (19-41); Mean Corp Hgb Conc 32.7 g/dL (32-36); Mean Corpuscular Hgb 30.8 pg (27.0-32.0); Mean Platelet Vol. 11.2 fl (6.2-12.0); Monocyte# 0.51 X10^3/uL; Monocyte% 3.3 % (0-10); NRBC Flagged by Analyzer 0 % (0-5); Neutrophil % 90.1 % (47-70); Platelet Count 304 K/mm3 (150-450); RBC Distribution Width CV 12.7 % (11.6-14.6); Red Blood Count 4.03 M/mm3 (4.2-5.4); White Blood Count 15.3 K/mm3 (4.4-11.0)
[2019-07-17] MEDS: Insulin Lispro 100 UNIT/ML INSULN.PEN SC ×4 (07:06→21:56)
[2019-07-17 07:10] LABS: Bedside Glucose 222 mg/dL (70-110)
[2019-07-17] MEDS: Ipratropium/Albuterol Sulfate 3 ML AMPUL.NEB INHALATION ×3 (07:14→19:22)
[2019-07-17 07:26] LABS: ALB/GLOB Ratio 0.6 RATIO (0.9-2.4); AST(SGOT) 10 U/L (15-37); Alanine Aminotransfer ALT/SGPT 18 U/L (13-56); Albumin, Serum 2.5 g/dL (3.2-5.0); Alkaline Phosphatase 88 U/L (45-117); Anion Gap 5 (5-15); BUN 14 mg/dL (7-18); Calcium,Total 8.7 mg/dL (8.5-10.1); Chloride 103 mmol/L (98-107); Cholesterol 163 mg/dL (200); Creatinine, Serum 0.64 mg/dL (0.55-1.02); EST Glomerular Filtration Rate 99 mL/min (>60); Est Glom Filt Rate - Afr Amer 120 mL/min (>60); Estimated Creatinine Clearance 39.21 ml/min; Globulin 4.3 g/dL (2.2-4.2); Glucose 231 mg/dL (74-106); High Density Lipoprotein 36 mg/dL; Potassium 4.3 mmol/L (3.5-5.1); Protein, Total 6.8 g/dL (6.4-8.2); Sodium Level 135 mmol/L (136-145); Triglycerides 88 mg/dL; Very Low Density Lipoprotein 18 mg/dL (5-40)
[2019-07-17] MEDS: Aspirin 81 MG TAB.CHEW PO (08:33)
[2019-07-17] MEDS: Famotidine 20 MG Tablet PO (08:34)
[2019-07-17] MEDS: Metoprolol(XL)Succ 25 MG Tablet PO (08:34)
[2019-07-17 09:13] LABS: Procalcitonin 0.07 ng/mL (0.00-0.09)
[2019-07-17] MEDS: levoFLOXacin IV 750 MG/150 ML BAG 100 MG IV (11:00)
[2019-07-17 11:16] LABS: Bedside Glucose 246 mg/dL (70-110)
--- NOTE | 2019-07-17 16:18 | PCM.PN.HOSP ---
Patient Problems: Active and Suspected Problems (Last Reviewed 07/07/18 @ 15:18 by Charleen Hall) COPD exacerbation (Acute) Acute respiratory failure with hypoxia (Acute) Pneumonia (Acute) Pneumonia (Acute) Chest pain (Acute) Reason for Visit: pneumonia Subjective: anxious. breathing well. Vitals/I&O's: Vital Signs Temp Pulse Resp BP Pulse Ox 36.9 C 104 H 18 133/84 H 93 07/17/19 11:00 07/17/19 13:30 07/17/19 13:30 07/17/19 11:00 07/17/19 11:00 Oxygen Flow Rate (L/min) 2 Oxygen Delivery Method Room Air Weight: 135 kg Body Mass Index (BMI) 58.1 Intake and Output for Last 24 Hours 07/15/19 07/16/19 07/17/19 23:59 23:59 23:59 Intake Total 905 / 905 1805 / 1805 Balance 905 / 905 1805 / 1805 General: Alert, No apparent distress HEENT: Atraumatic, Normocephalic Oral: Moist Mucosa, No Gingival or Mucosal Lesions/ Ulcerations Neck: No Nodes, Trachea Midline Lungs: Clear to auscultation, Normal air movement, No rhonchi, No wheeze Cardiovascular: Regular rate, Regular Rhythm, Normal S1, Normal S2, No murmurs Abdomen: Bowel Sounds Present, Soft, Non Tender, Non-Distended, No Hepato-splenomegaly Extremities: No edema, No Calf Tenderness Psych/Mental Status: Normal Affect, Appropriate Microbiology Past 72 Hours 07/16/19 16:40 Mucosa - Nasopharyngeal Respiratory Panel (PCR) - Final 07/16/19 18:55 Urine, Clean Catch Legionella Antigen - Final 07/16/19 18:55 Urine, Clean Catch Streptococcus pneumoniae Antigen (M - Final 07/16/19 12:49 Mucosa - Nasopharyngeal Coronavirus COVID-19 PCR - Final Laboratory Results 07/16/19 12:35: Magnesium 1.8, Ferritin 248, Lactate Dehydrogenase 188, Total Creatine Kinase 26, C-React Prot Ext Range 150.00 H 07/16/19 14:25: Procalcitonin 0.07 07/16/19 14:25: Troponin I < 0.015 07/16/19 16:21: POC Glucose 162 H 07/16/19 18:45: Troponin I < 0.015 07/16/19 21:45: POC Glucose 248 H 07/17/19 06:53: WBC 15.3 H, RBC 4.03 L, Hgb 12.4, Hct 37.9, MCV 94.0, MCH 30.8, MCHC 32.7, RDW Std Deviation 44.0 H, RDW Coeff of Penny 12.7, Plt Count 304, MPV 11.2, Immature Gran % (Auto) 0.700, Neut % (Auto) 90.1 H, Lymph % (Auto) 5.8 L, Howell % (Auto) 3.3, Eos % (Auto) 0.0, Baso % (Auto) 0.1, Absolute Neuts (auto) 13.8 H, Absolute Lymphs (auto) 0.89, Nucleated RBC % 0 07/17/19 06:53: Sodium 135 L, Potassium 4.3, Chloride 103, Carbon Dioxide 27.0, Anion Gap 5, BUN 14, Creatinine 0.64, Estim Creat Clear Calc 39.21, Est GFR (MDRD) Af Amer 120, Est GFR (MDRD) Non-Af 99, BUN/Creatinine Ratio 22.0 H, Glucose 231 H, Calcium 8.7, Total Bilirubin 0.40, AST 10 L, ALT 18, Alkaline Phosphatase 88, Total Protein 6.8, Albumin 2.5 L, Globulin 4.3 H, Albumin/Globulin Ratio 0.6 L, Triglycerides 88, Cholesterol 163, LDL Cholesterol 109, VLDL Cholesterol 18, HDL Cholesterol 36 L 07/17/19 07:04: POC Glucose 222 H 07/17/19 10:59: POC Glucose 246 H Current Medications Acetaminophen (Tylenol) 650 mg PO Q4H PRN PRN PRN Reason: Pain Score 1-10/Temp > 100.7 F Last Admin: 07/17/19 00:52 Dose: 650 mg Documented by: Al Hydroxide/Mg Hydroxide (Mylanta Ii) 30 ml PO Q6H PRN PRN PRN Reason: Gastric Burning Albuterol Sulfate (Ventolin Aerosols) 2.5 mg INHALATION Q2H PRN PRN PRN Reason: Dyspnea, wheezing Last Admin: 07/17/19 01:49 Dose: 2.5 mg Documented by: Albuterol/Ipratropium (Duoneb) 3 ml INHALATION Q4HWA.RT KATHY Last Admin: 07/17/19 13:30 Dose: 3 ml Documented by: Aspirin (Aspirin, Baby) 81 mg PO DAILY@0800 [facility] Last Admin: 07/17/19 08:33 Dose: 81 mg Documented by: Dextrose (D50w Syringe) 0 gm IV X1 PRN; Protocol PRN Reason: Hypoglycemia Enoxaparin Sodium (Lovenox) 140 mg SC Q12@0600,1800 [facility] Last Admin: 07/17/19 05:29 Dose: 140 mg Documented by: Famotidine (Pepcid) 20 mg PO DAILY [facility] Last Admin: 07/17/19 08:34 Dose: 20 mg Documented by: Fluticasone Propionate (Flonase Nasal [place]) 1 spray NASAL BID [facility] Last Admin: 07/17/19 09:15 Dose: Not Given Documented by: Gabapentin (Neurontin) 300 mg PO TID [facility] Last Admin: 07/17/19 14:12 Dose: 300 mg Documented by: Glucagon () 1 mg IM .X1 PRN PRN Reason: Hypoglycemia Guaifenesin (Robitussin) 20 ml PO Q4H PRN PRN PRN Reason: COUGH Last Admin: 07/17/19 14:12 Dose: 20 ml Documented by: Hydralazine HCl (Apresoline Iv) 10 mg IV Q4H PRN PRN PRN Reason: SBP > 160 Sodium Chloride () 1,000 mls @ 100 mls/hr IV .Q10H [facility] Last Admin: 07/17/19 05:07 Dose: 100 mls/hr Documented by: Levofloxacin (Levaquin Iv) 750 mg in 150 mls @ 100 mls/hr IV Q24 [facility] Last Admin: 07/17/19 11:00 Dose: 100 mls/hr Documented by: Sodium Chloride () 250 mls @ 15 mls/hr IV .[id number] PRN PRN Reason: Saline Flush Sodium Chloride () 250 mls @ 15 mls/hr IV .[id number] PRN PRN Reason: Additional IVPB Infusion Insulin Glargine (Lantus (Bk)) 100 units SC QHS [facility] Last Admin: 07/16/19 21:50 Dose: 100 u Documented by: Insulin Human Lispro (Humalog Kwikpen (Bk)) 0 unit SC ACHS [facility]; Protocol Last Admin: 07/17/19 11:01 Dose: 4 u Documented by: Magnesium Hydroxide (Milk Of Magnesia) 30 ml PO DAILY PRN PRN PRN Reason: Constipation Melatonin (Melatonin) 3 mg PO QHS PRN PRN PRN Reason: INSOMNIA Methylprednisolone (Solu-Medrol) 40 mg IV Q8 [facility] Last Admin: 07/17/19 14:11 Dose: 40 mg Documented by: Metoprolol Succinate (Toprol Xl (Beta Vaughn)) 25 mg PO DAILY [facility] Last Admin: 07/17/19 08:34 Dose: 25 mg Documented by: Morphine Sulfate () 2 mg IV Q3H PRN PRN PRN Reason: Pain Score 6-10/10 Nicotine (Nicoderm Cq (Pbkc)) 21 mg TRANSDERM. DAILY [facility] Last Admin: 07/17/19 08:33 Dose: 21 mg Documented by: Nitroglycerin (Nitrostat) 0.4 mg SUBLINGUAL Q5M PRN PRN Reason: CARDIAC/CHEST PAIN Ondansetron HCl (Zofran) 4 mg IV Q8H PRN PRN PRN Reason: NAUSEA/VOMITING Oxycodone HCl (Oxyir) 5 mg PO Q6 [facility] Last Admin: 07/17/19 11:00 Dose: 5 mg Documented by: Oxycodone HCl (Oxyir) 5 mg PO Q4H PRN PRN PRN Reason: Pain Score 4-5/10 Last Admin: 07/17/19 02:01 Dose: 5 mg Documented by: Prochlorperazine Edisylate (Compazine Iv) 5 mg IV Q4H PRN PRN PRN Reason: Breakthrough Nausea/Vomiting Psyllium Hydrophilic Mucilloid (Metamucil) 1 packet PO DAILY PRN PRN PRN Reason: Constipation Senna/Docusate Sodium (Senokot-S, Joanne-Colace) 2 tablet PO BID PRN PRN PRN Reason: Constipation Sodium Chloride () 10 - 40 ml IV UD PRN PRN Reason: SALINE FLUSH Last Admin: 07/17/19 14:13 Dose: 10 ml Documented by: Throat Lozenges (Cepacol Sore Throat Lozenge) 1 lozenge MUCOUS MEM Q2H PRN PRN PRN Reason: SORE THROAT STROKE Vital Signs/Narrative: Vital Signs Pulse Resp 07/17/19 13:30 104 H 18 Medical Necessity - Tobacco Use Smoking Status: Current every day smoker Tobacco Use: Cigarettes Assessment/Plan All Active Problems (Last Reviewed 07/07/18 @ 15:18 by Charleen Hall) COPD exacerbation (Acute) Acute respiratory failure with hypoxia (Acute) Pneumonia (Acute) Pneumonia (Acute) Chest pain (Acute) Palpitations (Acute) Vertigo (Acute) 1. sepsis improved related to pneumonia recheck COVID-19 2. pneumonia presumed pneumococcal on levofloxacin 3. COPD exacerbation on methylpred 4. acute hypoxic respiratory insufficiency no respiratory failure 2/2 above 5. VTE prophylaxis: anticoagulated greater than 40 minutes, of which greater than 50% of the time was discussing COVID-19, COVID-19 sensitivity, pneumonia Inpatient E&M: 09872 Subs Hosp L3
[2019-07-17 16:41] LABS: Bedside Glucose 251 mg/dL (70-110)
--- NOTE | 2019-07-17 20:19 | EKG12_ITS ---
Test Reason : CHEST PAIN Blood Pressure : / mmHG Vent. Rate : 108 BPM Atrial Rate : 108 BPM P-R Int : 162 ms QRS Dur : 094 ms QT Int : 334 ms P-R-T Axes : 064 -21 050 degrees QTc Int : 447 ms Sinus tachycardia Low voltage QRS Poor R wave progression Borderline ECG Confirmed by EMILY BRAGG, CLEMENCIA ([id number]), writer editor DIANA BERMAN ([id number]) on 07/20/2019 2:57:13 PM Referred By: ELAINE Confirmed By:CLEMENCIA DIAZ MD
[2019-07-17] MEDS: Senna/Docusate Sodium 1 Tablet 2 TABLET PO (21:58)
[2019-07-17 22:26] LABS: Bedside Glucose 231 mg/dL (70-110)
[2019-07-18] VITALS (14 sets, daily range): BP systolic 125–151; BP diastolic 60–78; PULSE 86–105; RESP 19–25; TEMP 36.4–36.6; O2SAT 91–96
[2019-07-18] MEDS: 0.9% Normal Saline 1,000 ML 100 ML IV (02:58)
[2019-07-18] MEDS: Enoxaparin 150 MG/ML Syringe 140 MG SC (05:51)
[2019-07-18] MEDS: Gabapentin 300 MG Capsule PO (05:52)
[2019-07-18] MEDS: oxyCODONE 5 MG Tablet PO ×2 (05:52→12:13)
[2019-07-18] MEDS: Ipratropium/Albuterol Sulfate 3 ML AMPUL.NEB INHALATION ×2 (06:36→11:12)
[2019-07-18] MEDS: Insulin Lispro 100 UNIT/ML INSULN.PEN SC ×2 (06:49→11:13)
[2019-07-18 07:05] LABS: Bedside Glucose 162 mg/dL (70-110)
[2019-07-18] MEDS: Famotidine 20 MG Tablet PO (08:38)
[2019-07-18] MEDS: Aspirin 81 MG TAB.CHEW PO (08:38)
[2019-07-18] MEDS: Fluticasone 0.05% 1 SPRAY NASAL.SRY NASAL (08:39)
[2019-07-18] MEDS: guaiFENesin 10 ML UDC (200MG/10ML) 20 ML PO (08:41)
[2019-07-18] MEDS: Metoprolol(XL)Succ 25 MG Tablet PO (08:42)
--- NOTE | 2019-07-18 10:06 | CASEMGMT ---
RN CM Assessment Note Presentation: shortness of breath,pneumonia Intro role of CM and purpose of RN CM assessment to patient via phone. Pt is awake, alert and able to participate in assessment. Demographics, PCP and Pharmacy verified. Pt states she lives independently in home. independent in ADL, driving, but states her niece lives nearby and is able to assist if needed. PCP: Dr. Curran Specialists: Dr. Hurley, pulmonology; Dr. Montiel, cardiology; sees arthritis physician, not sure of name. Preferred Pharmacy: [facility] Insurance: Mad Mimi, card not available- call to company to verify, pt is [facility] medicare plan 1 HM and they use [facility] network. website [email or web address] Prescription Benefit: yes LNOK : NieceAmie Living Arrangements: Lives in one story home. one step down to living area, and one step up to kitchen. States she is independent in ADL. No care needs identified @ this time. Transportation: drives, or niece is able to assist with driving DME: Cpap, States she has walker but does not use. HHC/SNF: none Patient DC goals: Home DC PLAN: Home on dc. If home oxygen is needed, [facility] and [facility] are [facility] per [facility] site. RN CM advised to contact cm for any concerns/needs that may arise. Santosh SELBY RN ACM
[2019-07-18] MEDS: levoFLOXacin IV 750 MG/150 ML BAG 100 MG IV (10:52)
[2019-07-18 11:25] LABS: Bedside Glucose 254 mg/dL (70-110)
--- NOTE | 2019-07-18 11:33 | PCM.DC ---
- Discharge Diagnoses Current Active Problems: Current Active and Chronic Problems (Last Reviewed 07/07/18 @ 15:18 by Charleen Hall) HTN (hypertension) (Chronic) Morbid obesity (Chronic) COPD exacerbation (Acute) Acute respiratory failure with hypoxia (Acute) Pneumonia (Acute) Pneumonia (Acute) Chest pain (Acute) You will use the following diet at home:: Calorie/Carbohydrate Controlled (specify 1200, 1400, etc) - 1800 Your food should be the consistency of: Regular Discharge Activity: Return to Normal Activity Call your doctor if you observe: Fever of 101 or Higher, Shortness of breath Allergies/Adverse Reactions: Allergies acetaminophen [From Darvocet-N] Allergy (Verified 07/16/19 12:31) Hives ampicillin Allergy (Verified 07/16/19 12:31) Hives codeine Allergy (Verified 07/16/19 12:31) Hives meperidine HCl [From Demerol] Allergy (Verified 07/16/19 12:31) Hives Penicillins [PCN] Allergy (Verified 07/16/19 12:31) Hives propoxyphene napsylate [From Darvocet-N] Allergy (Verified 07/16/19 12:31) Hives Medications to take at Discharge Insulin Glargine [Lantus SoloStar Pen] 100 units SUBCUT QHS 03/14/14 Liraglutide [Victoza 2-Bronson] 0.8 mg SQ DAILY 12/04/14 Oxycodone HCl/Acetaminophen [Percocet 5-325] 1 tab PO Q6H 04/02/16 Gabapentin [Neurontin] 300 mg PO TID 05/22/18 aspirin 81 mg tablet,delayed release 81 mg PO DAILY #90 tab 07/07/18 metoprolol succinate 25 mg tablet,extended release 24 hr 25 mg PO DAILY #90 tab 07/10/19 Fluticasone 0.05% [Flonase Nasal [place]] 1 spray NARES BID 07/16/19 Levofloxacin [Levaquin] 750 mg PO DAILY #4 tab 07/18/19 Prednisone 10 mg PO DAILY #26 tab 07/18/19 The following prescriptions were given: Levofloxacin [Levaquin] 750 mg PO DAILY #4 tab Transmission Status: Pending to [facility]/pharmacy #[id number] Prednisone 10 mg PO DAILY #26 tab Transmission Status: Pending to [facility]/pharmacy #[id number] Primary Care Physician: Jarett Davies DO [COURTESY STAFF PHYSICIAN] - Within 2 Weeks Test Results: Test results from this visit will be discussed in further detail at your follow-up appointment, if applicable. Please Follow Up With: Jarett Hurley MD When: 4-6 weeks Proposed Discharge Date: 07/18/19
--- NOTE | 2019-07-18 11:37 | DS.PCM_ITS ---
Discharge Date and Diagnosis - Problem List Patient Problems: Active and Suspected Problems (Last Reviewed 07/07/18 @ 15:18 by Charleen Hall) COPD exacerbation (Acute) Acute respiratory failure with hypoxia (Acute) Pneumonia (Acute) Pneumonia (Acute) Chest pain (Acute) Date of Admission: 07/16/19 Date of Discharge: 07/18/19 - Primary Discharge Diagnosis Acute Problems: Active Problems (Last Reviewed 07/07/18 @ 15:18 by Charleen Hall) COPD exacerbation (Acute) Acute respiratory failure with hypoxia (Acute) Pneumonia (Acute) Pneumonia (Acute) Chest pain (Acute) - Secondary Discharge Diagnosis Chronic Problems: Chronic Problems (Last Reviewed 07/07/18 @ 15:18 by Charleen Hall) HTN (hypertension) (Chronic) Morbid obesity (Chronic) Hypercholesteremia (Chronic) Peripheral vascular disease (Chronic) Urinary, incontinence, stress female (Chronic) Osteoarthritis (Chronic) Tobacco abuse disorder (Chronic) Obesity (Chronic) Diabetes mellitus type 2 in obese (Chronic) Paroxysmal atrial fibrillation (Chronic) Obstructive sleep apnea (Chronic) Hospital Course and Treatment Imaging Results: Clinical Impression(s) from Imaging Studies Chest X-Ray 07/17/19 05:55 IMPRESSION: Diffuse pulmonary edema and small left pleural effusion suggestive of acute CHF exacerbation. Electronically Signed: Carl Canchola, at 17:03 EDT Tel , Service support , Operations: None Procedures: None Summary of Care Provided: The patient is a 68 year old F presents with dyspnea, cough, chest pain and fever. Patient had a CAT scan that was significant for an effusion and pneumonia. Patient was checked for COVID-19 x3 which were all negative. Patient had no obvious risk factors for COVID-19 so that is presumed to be a true negative test. Course complicated by her underlying COPD and was on steroids and breathing treatments and overall has done well. Patient will have an amatory pulse ox prior to discharge and if needed, patient will be given oxygen prior to discharge. Patient instructed to follow-up with her tax accountant, Dr. Hurley in the coming weeks. Patient expressed some concern as some black mold has been recently found in her attic. I informed the patient that that was likely not contributing directly to this acute exacerbation and pneumonia but did recommend that further be looked into by proper professionals. Also advised that she may bring that up with her tax accountant as well. [] Patient Problems: Active and Suspected Problems (Last Reviewed 07/07/18 @ 15:18 by Charleen Hall) COPD exacerbation (Acute) Acute respiratory failure with hypoxia (Acute) Pneumonia (Acute) Pneumonia (Acute) Chest pain (Acute) - Physical Exam Vitals/I&O's: Vital Signs Temp Pulse Resp BP Pulse Ox 36.5 C L 98 20 H 144/60 H 91 07/18/19 10:30 07/18/19 10:30 07/18/19 10:30 07/18/19 10:30 07/18/19 11:16 Oxygen Flow Rate (L/min) 2 Oxygen Delivery Method Room Air Weight: 135 kg Body Mass Index (BMI) 58.1 Intake and Output for Last 24 Hours 07/16/19 07/17/19 07/18/19 23:59 23:59 23:59 Intake Total 905 / 905 3435 / 3435 2560 / 2560 Output Total 325 / 325 275 / 275 Balance 905 / 905 3110 / 3110 2285 / 2285 General: Alert, No apparent distress HEENT: Atraumatic, Normocephalic Oral: Moist Mucosa, No Gingival or Mucosal Lesions/ Ulcerations Lungs: Clear to auscultation, Normal air movement, No rhonchi, No wheeze Cardiovascular: Regular rate, Regular Rhythm, Normal S1, Normal S2 Abdomen: Bowel Sounds Present, Soft, Non Tender, Non-Distended Microbiology Past 72 Hours 07/16/19 12:35 Blood Culture (Wb) - Anticubital Right Blood Culture - Preliminary No growth in 48 hours. 07/16/19 13:00 Blood Culture (Wb) - Right Hand Blood Culture - Preliminary No growth in 48 hours. 07/17/19 13:17 Mucosa - Nasopharyngeal Coronavirus COVID-19 PCR - Final 07/16/19 16:40 Mucosa - Nasopharyngeal Respiratory Panel (PCR) - Final 07/16/19 18:55 Urine, Clean Catch Legionella Antigen - Final 07/16/19 18:55 Urine, Clean Catch Streptococcus pneumoniae Antigen (M - Final 07/16/19 12:49 Mucosa - Nasopharyngeal Coronavirus COVID-19 PCR - Final Laboratory Results 07/17/19 16:34: POC Glucose 251 H 07/17/19 21:54: POC Glucose 231 H 07/18/19 06:48: POC Glucose 162 H 07/18/19 11:09: POC Glucose 254 H Current Medications Acetaminophen (Tylenol) 650 mg PO Q4H PRN PRN PRN Reason: Pain Score 1-10/Temp > 100.7 F Last Admin: 07/17/19 00:52 Dose: 650 mg Documented by: Al Hydroxide/Mg Hydroxide (Mylanta Ii) 30 ml PO Q6H PRN PRN PRN Reason: Gastric Burning Albuterol Sulfate (Ventolin Aerosols) 2.5 mg INHALATION Q2H PRN PRN PRN Reason: Dyspnea, wheezing Last Admin: 07/17/19 01:49 Dose: 2.5 mg Documented by: Albuterol/Ipratropium (Duoneb) 3 ml INHALATION Q4HWA.RT ON LICENSE OF [facility] Last Admin: 07/18/19 11:12 Dose: 3 ml Documented by: Aspirin (Aspirin, Baby) 81 mg PO DAILY@0800 ON LICENSE OF [facility] Last Admin: 07/18/19 08:38 Dose: 81 mg Documented by: Dextrose (D50w Syringe) 0 gm IV X1 PRN; Protocol PRN Reason: Hypoglycemia Enoxaparin Sodium (Lovenox) 140 mg SC Q12@0600,1800 ON LICENSE OF [facility] Last Admin: 07/18/19 05:51 Dose: 140 mg Documented by: Famotidine (Pepcid) 20 mg PO DAILY ON LICENSE OF [facility] Last Admin: 07/18/19 08:38 Dose: 20 mg Documented by: Fluticasone Propionate (Flonase Nasal [place]) 1 spray NASAL BID ON LICENSE OF [facility] Last Admin: 07/18/19 08:39 Dose: 1 spray Documented by: Gabapentin (Neurontin) 300 mg PO TID ON LICENSE OF [facility] Last Admin: 07/18/19 05:52 Dose: 300 mg Documented by: Glucagon () 1 mg IM .X1 PRN PRN Reason: Hypoglycemia Guaifenesin (Robitussin) 20 ml PO Q4H PRN PRN PRN Reason: COUGH Last Admin: 07/18/19 08:41 Dose: 20 ml Documented by: Hydralazine HCl (Apresoline Iv) 10 mg IV Q4H PRN PRN PRN Reason: SBP > 160 Sodium Chloride () 1,000 mls @ 100 mls/hr IV .Q10H ON LICENSE OF [facility] Last Infusion: 07/18/19 10:52 Dose: 0 mls/hr Documented by: Levofloxacin (Levaquin Iv) 750 mg in 150 mls @ 100 mls/hr IV Q24 ON LICENSE OF [facility] Last Admin: 07/18/19 10:52 Dose: 100 mls/hr Documented by: Sodium Chloride () 250 mls @ 15 mls/hr IV .[id number] PRN PRN Reason: Saline Flush Sodium Chloride () 250 mls @ 15 mls/hr IV .[id number] PRN PRN Reason: Additional IVPB Infusion Insulin Glargine (Lantus ([facility])) 100 units SC QHS ON LICENSE OF [facility] Last Admin: 07/17/19 21:57 Dose: 100 u Documented by: Insulin Human Lispro (Humalog Kwikpen ([facility])) 0 unit SC ACHS ON LICENSE OF [facility]; Protocol Last Admin: 07/18/19 11:13 Dose: 4 u Documented by: Magnesium Hydroxide (Milk Of Magnesia) 30 ml PO DAILY PRN PRN PRN Reason: Constipation Melatonin (Melatonin) 3 mg PO QHS PRN PRN PRN Reason: INSOMNIA Metoprolol Succinate (Toprol Xl (Beta Vaughn)) 25 mg PO DAILY ON LICENSE OF [facility] Last Admin: 07/18/19 08:42 Dose: 25 mg Documented by: Morphine Sulfate () 2 mg IV Q3H PRN PRN PRN Reason: Pain Score 6-10/10 Nicotine (Nicoderm Cq (Pbkc)) 21 mg TRANSDERM. DAILY ON LICENSE OF [facility] Last Admin: 07/18/19 08:38 Dose: 21 mg Documented by: Nitroglycerin (Nitrostat) 0.4 mg SUBLINGUAL Q5M PRN PRN Reason: CARDIAC/CHEST PAIN Ondansetron HCl (Zofran) 4 mg IV Q8H PRN PRN PRN Reason: NAUSEA/VOMITING Oxycodone HCl (Oxyir) 5 mg PO Q6 ON LICENSE OF [facility] Last Admin: 07/18/19 05:52 Dose: 5 mg Documented by: Oxycodone HCl (Oxyir) 5 mg PO Q4H PRN PRN PRN Reason: Pain Score 4-5/10 Last Admin: 07/17/19 02:01 Dose: 5 mg Documented by: Prednisone () 40 mg PO DAILY@0800 ON LICENSE OF [facility] Prochlorperazine Edisylate (Compazine Iv) 5 mg IV Q4H PRN PRN PRN Reason: Breakthrough Nausea/Vomiting Psyllium Hydrophilic Mucilloid (Metamucil) 1 packet PO DAILY PRN PRN PRN Reason: Constipation Senna/Docusate Sodium (Senokot-S, Joanne-Colace) 2 tablet PO BID PRN PRN PRN Reason: Constipation Last Admin: 07/17/19 21:58 Dose: 2 tablet Documented by: Sodium Chloride () 10 - 40 ml IV UD PRN PRN Reason: SALINE FLUSH Last Admin: 07/17/19 14:13 Dose: 10 ml Documented by: Throat Lozenges (Cepacol Sore Throat Lozenge) 1 lozenge MUCOUS MEM Q2H PRN PRN PRN Reason: SORE THROAT Discharge Diet: No Restrictions Discharge Activity: Return to Normal Activity Call your doctor if you observe: Fever of 101 or Higher, Shortness of breath Home Medications: Medications to take at Discharge Insulin Glargine [Lantus SoloStar Pen] 100 units SUBCUT QHS 03/14/14 Liraglutide [Victoza 2-Bronson] 0.8 mg SQ DAILY 12/04/14 Oxycodone HCl/Acetaminophen [Percocet 5-325] 1 tab PO Q6H 04/02/16 Gabapentin [Neurontin] 300 mg PO TID 05/22/18 aspirin 81 mg tablet,delayed release 81 mg PO DAILY #90 tab 07/07/18 metoprolol succinate 25 mg tablet,extended release 24 hr 25 mg PO DAILY #90 tab 07/10/19 Fluticasone 0.05% [Flonase Nasal [place]] 1 spray NARES BID 07/16/19 Levofloxacin [Levaquin] 750 mg PO DAILY #4 tab 07/18/19 Prednisone 10 mg PO DAILY #26 tab 07/18/19 Following Prescrptions Were Given to Patient: Levofloxacin [Levaquin] 750 mg PO DAILY #4 tab Transmission Status: [id number] Prednisone 10 mg PO DAILY #26 tab Transmission Status: Pending to [facility]/pharmacy #[id number] Primary Care Physician: Jarett Davies DO [COURTESY STAFF PHYSICIAN] - Within 2 Weeks Please Follow Up With: Jarett Hurley MD When: 4-6 weeks Disposition: Home Minutes spent on discharge:: 32 Patient Condition:: Good Medical Necessity - Tobacco Use Smoking Status: Current every day smoker Tobacco Use: Cigarettes Meaningful Use Info Meaningful Use Diagnoses (Choose all that apply): None applicable Inpatient E&M: 03838 Disch Hosp
[2019-07-18] MEDS: predniSONE 20 MG Tablet 40 MG PO (12:13)
--- NOTE | 2019-07-20 15:17 | CASEMGMT ---
RN MARANDA Discharge Follow-Up Phone Call. Lace: 10 Strata: 3 Discharge Date: 07/18/19 Adm Dx: Possible COVID, ? PNA, CP Attempted discharge follow-up phone call. No answer. VM message left for pt to return call if she has any concerns/needs. Phone number provided to this RN MARANDA. Domi NIETON RN CM
== END 2019-07-18 13:47 | disposition home or self-care (01) | DRG 871 ==
LOC: ED 14:38 → ICU 14:51 → PCU 07-17 01:27 → ICU 07-17 12:17
PROVIDERS: Admitting Provider Family Medicine; Emergency Provider Emergency Medicine; PCP Student in an Organized Health Care Education/Training Program
DX: A41.9 Sepsis, unspecified organism (principal); J18.9 Pneumonia, unspecified organism; J13 Pneumonia due to Streptococcus pneumoniae; J44.0 Chronic obstructive pulmonary disease with (acute) lower respiratory infection; J44.1 Chronic obstructive pulmonary disease with (acute) exacerbation; Z68.43 Body mass index [BMI] 50.0-59.9, adult; R09.02 Hypoxemia; I48.0 Paroxysmal atrial fibrillation; E11.51 Type 2 diabetes mellitus with diabetic peripheral angiopathy without gangrene; I10 Essential (primary) hypertension; N39.3 Stress incontinence (female) (male); E78.5 Hyperlipidemia, unspecified; M19.90 Unspecified osteoarthritis, unspecified site; G89.4 Chronic pain syndrome; K21.9 Gastro-esophageal reflux disease without esophagitis; G47.33 Obstructive sleep apnea (adult) (pediatric); F32.9 Major depressive disorder, single episode, unspecified; F41.9 Anxiety disorder, unspecified; F17.210 Nicotine dependence, cigarettes, uncomplicated; E66.01 Morbid (severe) obesity due to excess calories; Z79.4 Long term (current) use of insulin; Z79.899 Other long term (current) drug therapy; Z79.82 Long term (current) use of aspirin; Z96.653 Presence of artificial knee joint, bilateral
CPT/HCPCS: 36415; 71045; 71275; 80048; 80053; 80061; 80076; 82550; 82728; 82962; 83605; 83615; 83735; 84145; 84484; 85025; 85379; 86140; 87040; 87449; 87633; 87635; 93005; 94640; 97802; 99285; 99406; G2023; J7030; J7050; Q9967; A4216; U0004

== ENCOUNTER → 2019-07-18 13:53 | Outpatient (CLI) | payer MEDICARE, SELFPAY ==
[2019-07-16 16:07] VITALS: BMI 58.1
[2019-07-18 14:37] LABS: Absolute Lymphocyte Count 0.99 X10^3/uL (0.83-4.51); Absolute Neutrophil Count 18.1 X10^3/uL (2.0-7.7); Basophil# 0.04 X10^3/uL; Basophil% 0.2 % (0-1); Hematocrit 38.6 % (37-47); Hemoglobin 12.4 g/dL (12.0-15.0); Lymphocyte # 0.99 X10^3/ul (4.0); Lymphocyte % 4.8 % (19-41); Mean Corp Hgb Conc 32.1 g/dL (32-36); Mean Corpuscular Hgb 30.6 pg (27.0-32.0); Mean Corpuscular Volume 95.3 fL (81-99); Mean Platelet Vol. 11.7 fl (6.2-12.0); Monocyte# 1.36 X10^3/uL; Monocyte% 6.6 % (0-10); NRBC Flagged by Analyzer 0 % (0-5); Neutrophil # 18.06 X10^3/uL (2.7-7.7); Neutrophil % 87.3 % (47-70); Platelet Count 354 K/mm3 (150-450); RBC Distribution Width CV 12.9 % (11.6-14.6); RBC Distribution Width SD 45.1 fl (35.1-43.9); Red Blood Count 4.05 M/mm3 (4.2-5.4); White Blood Count 20.7 K/mm3 (4.4-11.0)
[2019-07-18 14:44] LABS: ALB/GLOB Ratio 0.6 RATIO (0.9-2.4); AST(SGOT) 13 U/L (15-37); Alanine Aminotransfer ALT/SGPT 19 U/L (13-56); Albumin, Serum 2.5 g/dL (3.2-5.0); Alkaline Phosphatase 87 U/L (45-117); Anion Gap 9 (5-15); BUN 18 mg/dL (7-18); BUN/Creat Ratio 20.7 RATIO (10-20); Calcium,Total 8.6 mg/dL (8.5-10.1); Chloride 104 mmol/L (98-107); Creatinine, Serum 0.87 mg/dL (0.55-1.02); EST Glomerular Filtration Rate 69 mL/min (>60); Est Glom Filt Rate - Afr Amer 83 mL/min (>60); Globulin 4.2 g/dL (2.2-4.2); Glucose 286 mg/dL (74-106); Potassium 4.4 mmol/L (3.5-5.1); Protein, Total 6.7 g/dL (6.4-8.2); Rheumatoid Factor < 10.0 IU/mL (<15); Sodium Level 139 mmol/L (136-145)
[2019-07-18 15:17] LABS: Hepatitis B Surface Antibody Non-Reactive; Hepatitis B Surface Antigen Non-Reactive (Nonreactive); Hepatitis C Antibody Non-Reactive (Nonreactive)
[2019-07-18 15:38] LABS: Erythrocyte Sedimentation Rate 69 mm/hr (0-30)
[2019-07-20 15:30] LABS: ANTINUCLEAR ANTIBODIES DIRECT Negative (Negative)
[2019-07-21 09:12] LABS: CCP IgG Antibodies 4 units (0-19); Hepatitis B Core AB IgM Negative (Negative)
== END ==
PROVIDERS: PCP Student in an Organized Health Care Education/Training Program; Visit Provider Internal Medicine Rheumatology
DX: M06.4 Inflammatory polyarthropathy (principal); M79.7 Fibromyalgia; M19.041 Primary osteoarthritis, right hand; M17.0 Bilateral primary osteoarthritis of knee; M21.41 Flat foot [pes planus] (acquired), right foot; M47.897 Other spondylosis, lumbosacral region; G25.81 Restless legs syndrome; I48.91 Unspecified atrial fibrillation
CPT/HCPCS: 36415; 80053; 85025; 85652; 86038; 86140; 86200; 86431; 86705; 86706; 86803; 87340

== ENCOUNTER 2019-11-15 22:38 | Observation (INO) | payer MEDICARE, SELFPAY ==
[2019-07-16 16:07] VITALS: BMI 58.1
[2019-11-15 21:21] VITALS: BMI 52.5
[2019-11-15 21:29] VITALS: BMI 52.6
[2019-11-15 21:47] VITALS: BP 138/80; PULSE 98; RESP 16; TEMP 37.1; O2SAT 97
[2019-11-15 21:50] VITALS: BMI 52.5
--- NOTE | 2019-11-15 22:40 | HP.PCM_ITS ---
Problem List (1) Acute cholecystitis Status: Acute History of Present Illness Date of Admission: 11/15/19 The patient is a 69 year old F who was transferred from outside ER with acute cholecystitis. The patient reports 5-day history of abdominal pain. She said the pain started in her lower abdomen is now migrated to the right upper quadrant and radiates to the back. She denies any fevers or chills or nausea or vomiting. Past Medical History Past Medical History (Chronic Problems): Chronic Problems (Last Reviewed 07/07/18 @ 15:18 by Charleen Hall) HTN (hypertension) (Chronic) Morbid obesity (Chronic) Hypercholesteremia (Chronic) Peripheral vascular disease (Chronic) Urinary, incontinence, stress female (Chronic) Osteoarthritis (Chronic) Tobacco abuse disorder (Chronic) Obesity (Chronic) Diabetes mellitus type 2 in obese (Chronic) Paroxysmal atrial fibrillation (Chronic) Obstructive sleep apnea (Chronic) Medical History: Medical History (Last Reviewed 07/07/18 @ 15:18 by Charleen Hall) Hypercholesteremia (Chronic) E78.00 Peripheral vascular disease (Chronic) I73.9 Palpitations (Acute) R00.2 Vertigo (Acute) R42 Osteoarthritis (Chronic) M19.90 Diabetes mellitus type 2 in obese (Chronic) E11.9, E66.9 Paroxysmal atrial fibrillation (Chronic) I48.0 Obstructive sleep apnea (Chronic) G47.33 Allergies ampicillin Allergy (Verified 07/16/19 12:31) Hives codeine Allergy (Verified 07/16/19 12:31) Hives meperidine HCl [From Demerol] Allergy (Verified 07/16/19 12:31) Hives Penicillins [PCN] Allergy (Verified 07/16/19 12:31) Hives propoxyphene napsylate [From Darvocet-N] Allergy (Verified 07/16/19 12:31) Hives Home Medications: Ambulatory Orders Medication Instructions Recorded Insulin Glargine [Lantus SoloStar 100 units SUBCUT QHS 03/14/14 Pen] Liraglutide [Victoza 2-Bronson] 0.8 mg SQ DAILY 12/04/14 Oxycodone HCl/Acetaminophen 1 tab PO Q6H 04/02/16 [Percocet 5-325] Fluticasone 0.05% [Flonase Nasal 1 spray NARES BID PRN 07/16/19 [place]] Aspirin [Low Dose Aspirin EC] 81 mg PO DAILY 11/15/19 Gabapentin [Neurontin] 400 mg PO TID 11/15/19 Metoprolol Succinate [Toprol Xl] 25 mg PO DAILY 11/15/19 Surgical History: Surgical History (Last Reviewed 07/07/18 @ 15:18 by Charleen Hall) History of appendectomy Z90.49 History of cardiac catheterization Z98.890 History of hysterectomy Z90.710 History of knee replacement Z96.659 Bilateral History of lumpectomy of both breasts Z98.890 History of tubal ligation Z98.51 Surgical History: appendectomy, cholecystectomy, - - Patient has bilateral knee replacement cholecystectomy appendectomy Psychiatric History: Anxiety, Depression 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: No pertinent 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 WINDOW TINTER history Smoking Status: Current every day smoker Tobacco Use: Cigarettes - *Family History Paternal Family History: Family History (Last Reviewed 07/07/18 @ 15:18 by Charleen Hall) Mother Heart disease Brother Heart disease Grandfather CVA (cerebral vascular accident) Grandmother Myocardial infarction History Items: Hypertension Maternal Family History: Family History (Last Reviewed 07/07/18 @ 15:18 by Charleen Hall) Mother Heart disease Brother Heart disease Grandfather CVA (cerebral vascular accident) Grandmother Myocardial infarction History Items: High Cholesterol, Heart Disease, Hypertension Review of Systems Constitutional: Denies: Anorexia, Fever HEENT: Denies: Difficulty Swallowing Cardiovascular: Denies: Chest Pain Respiratory: Denies: Cough, Pleuritic Pain, Shortness of Breath Gastrointestinal: Reports: Abdominal Pain. Denies: Diarrhea, Dyspepsia, Hematemesis, Hematochezia, Nausea, Vomiting Genitourinary: Denies: Dysuria Musculoskeletal: Denies: Joint Tenderness Skin: Denies: Jaundice Neurological: Denies: Balance problems Hematologic/ Lymphatic: Denies: Anemia VTE Information - Inpt Only VTE Present on Admission: No VTE Mechan Device Prophylaxis: SCD's Patient Problems: Active and Suspected Problems (Last Reviewed 07/07/18 @ 15:18 by Charleen Hall) Acute cholecystitis (Acute) - Physical Exam Vitals/I&O's: Vital Signs Temp Pulse Resp BP Pulse Ox 98.7 F 98 16 138/80 H 97 11/15/19 21:47 11/15/19 21:47 11/15/19 21:47 11/15/19 21:47 11/15/19 21:47 Oxygen Delivery Method Room Air Weight: 278 lb 3.2 oz Body Mass Index (BMI) 52.5 General: Alert, Oriented x3 Neck: No JVD Lungs: Normal air movement Cardiovascular: Regular rate, Regular Rhythm Abdomen: Soft, Non-Distended, Tender - Tender right upper quadrant with no guarding or rebound Extremities: No clubbing Skin: No rashes Musculoskeletal: No Muscle Wasting Neurological: Cranial nerves II-XII grossly intact Psych/Mental Status: Normal Affect Current Medications Acetaminophen (Tylenol) 650 mg PO Q4H PRN PRN PRN Reason: Pain or Fever Fluticasone Propionate (Flonase Nasal [place]) 1 spray NASAL BID PRN PRN Reason: ALLERGIES Gabapentin (Neurontin) 400 mg PO TID PENDING SALE TO [facility] Sodium Chloride () 250 mls @ 15 mls/hr IV .[id number] PRN PRN Reason: Saline Flush Sodium Chloride () 1,000 mls @ 100 mls/hr IV .Q10H KATHY Pantoprazole Sodium 40 mg/ (Sodium Chloride) 110 mls @ 330 mls/hr IV Q24 KATHY Ciprofloxacin (Cipro) 400 mg in 200 mls @ 200 mls/hr IV Q12 KATHY Metronidazole (Flagyl) 500 mg in 100 mls @ 100 mls/hr IV Q8 PENDING SALE TO [facility] Influenza Virus Vaccine Quadrival (Flucelvax /Fluzone ) 0.5 ml IM .ONCE ONE Stop: 11/16/19 10:01 Insulin Human Lispro (Humalog Kwikpen (Bkc)) 0 unit SC Q6 KATHY; Protocol Metoprolol Succinate (Toprol Xl (Beta Vaughn)) 25 mg PO DAILY PENDING SALE TO [facility] Morphine Sulfate () 2 - 4 mg IV Q2H PRN PRN PRN Reason: Pain Score 4-10/10 Ondansetron HCl (Zofran) 4 mg IV Q6H PRN PRN PRN Reason: NAUSEA Sodium Chloride () 10 - 40 ml IV UD PRN PRN Reason: SALINE FLUSH Assessment/Plan All Active Problems (Last Reviewed 07/07/18 @ 15:18 by Charleen Hall) COPD exacerbation (Acute) Acute respiratory failure with hypoxia (Acute) Pneumonia (Acute) Pneumonia (Acute) Chest pain (Acute) Acute cholecystitis (Acute) Palpitations (Acute) Vertigo (Acute) 69-year-old female with acute cholecystitis and dilated common bile duct 1. Patient was transferred from outside hospital with an ultrasound that showed a thickened gallbladder wall at 5 mm with multiple stones. The common bile duct was also over 7 mm. Her LFTs are normal. Patient also has elevated white count with left shift. 2. I discussed surgical options with the patient in detail. I discussed performing a laparoscopic cholecystectomy with possible common bile duct exploration tomorrow. I discussed the procedure in detail with the patient. I discussed the risks, benefits, and alternatives of the procedure. I discussed the risks including but not limited to bleeding, infection, pancreatitis, trans- cystic stent placement, injury to surrounding organs such as the liver, bile duct, bowels. I did discuss the possibility of having to convert to an open procedure as well as the possibility that if any injuries occurred this may necessitate further surgery at a tertiary care center. I discussed that if there was a stone is unable to be removed or stent was unable to be placed trans-cystic that I would perform an ERCP on Wednesday. 3. Patient will be admitted and labs will be rechecked in the morning and started on Cipro and Flagyl due to penicillin allergy. Patient will be kept n.p.o. and started on IV fluids. Insulin sliding scale for diabetes. Pain control. SCDs. PPI. Bossman Rios MD Pager: [facility] [address] [place] [address], [address] [place] [address] Office:
[2019-11-15] MEDS: 0.9% Normal Saline 1,000 ML 100 ML IV (23:08)
[2019-11-15] MEDS: Morphine 2 MG/ML Syringe IV (23:17)
[2019-11-15 23:21] LABS: Bedside Glucose 140 mg/dL (70-110)
[2019-11-16] VITALS (16 sets, daily range): BP systolic 126–179; BP diastolic 62–86; PULSE 89–97; RESP 16–18; TEMP 36.7–37.1; O2SAT 91–98; BMI 52.5; BMI 52.6
[2019-11-16] MEDS: Ondansetron 4 MG/2 ML Vial IV (02:59)
[2019-11-16] MEDS: Morphine 2 MG/ML Syringe IV ×5 (02:59→20:37)
[2019-11-16] MEDS: 0.9% Saline Lock 10 ML Syringe IV (02:59)
--- NOTE | 2019-11-16 05:00 | RAD_ITS ---
STUDY: X-RAY CHEST REASON FOR EXAM: Female, 69 years old. DYSPNEA -- PRE OP TECHNIQUE: Single AP portable view of the chest. COMPARISON: July 17, 2019 chest x-ray FINDINGS: There is increased linear density in the bilateral lung bases. There is a calcified granuloma in the left upper lobe. There is no demonstrated pleural abnormality. Normal size heart. Normal mediastinum and cheryle. Normal visualized pulmonary arteries. There is atherosclerotic calcification of the aortic arch with tortuosity. There are diffuse degenerative changes of the visualized thoracic spine. Normal visualized ribs, clavicles, and shoulders. There is no demonstrated abnormality of the visualized soft tissue structures of the upper abdomen. RAD/Chest 1 View (Portable) IMPRESSION: Bilateral lower lobe atelectasis cannot exclude early developing infiltrates. Findings suspicious for underlying chronic lung disease. Evidence of a granulomatous disease left upper lobe. Electronically Signed: Naima Marquez MD at 5:33 EDT Tel , Service support ,
[2019-11-16 05:20] LABS: Bedside Glucose 113 mg/dL (70-110)
[2019-11-16 05:51] LABS: Absolute Lymphocyte Count 1.54 X10^3/uL (0.83-4.51); Absolute Neutrophil Count 6.9 X10^3/uL (2.0-7.7); Basophil# 0.04 X10^3/uL; Basophil% 0.4 % (0-1); Eosinophil# 0.09 X10^3/uL; Eosinophils% 0.9 % (0-5); Hematocrit 37.3 % (37-47); Lymphocyte # 1.54 X10^3/ul (4.0); Mean Corp Hgb Conc 32.2 g/dL (32-36); Mean Corpuscular Hgb 29.8 pg (27.0-32.0); Mean Corpuscular Volume 92.6 fL (81-99); Mean Platelet Vol. 11.3 fl (6.2-12.0); Monocyte# 1.03 X10^3/uL; Monocyte% 10.7 % (0-10); NRBC Flagged by Analyzer 0 % (0-5); Neutrophil # 6.89 X10^3/uL (2.7-7.7); Neutrophil % 71.6 % (47-70); POSITIVE MORPHOLOGY YES; Platelet Count 309 K/mm3 (150-450); RBC Distribution Width CV 13.2 % (11.6-14.6); RBC Distribution Width SD 44.9 fl (35.1-43.9); Red Blood Count 4.03 M/mm3 (4.2-5.4); White Blood Count 9.6 K/mm3 (4.4-11.0)
[2019-11-16 05:58] LABS: Differential Indicated SCAN CRITERIA MET
--- NOTE | 2019-11-16 06:00 | EKG12_ITS ---
Test Reason : PRE-OP Blood Pressure : / mmHG Vent. Rate : 087 BPM Atrial Rate : 087 BPM P-R Int : 168 ms QRS Dur : 092 ms QT Int : 370 ms P-R-T Axes : 072 -43 021 degrees QTc Int : 445 ms Normal sinus rhythm Left axis deviation Abnormal ECG When compared with ECG of 17-JUL-2019 20:25, Non-specific change in ST segment in Inferior leads Confirmed by GREER BRAGG, BOB ([id number]), supervising editor trailer DESTINY SAENZ ([id number]) on 11/21/2019 12:44:09 PM Referred By: YARON Confirmed By:BOB BUTTERFIELD MD
[2019-11-16 06:13] LABS: Differential Comment SCANNED; Reactive Lymphocyte RARE
[2019-11-16] MEDS: metroNIDAZOLE 500 MG/100 ML BAG 100 MG IV ×3 (06:14→21:46)
[2019-11-16 06:37] LABS: ALB/GLOB Ratio 0.5 RATIO (0.9-2.4); AST(SGOT) 6 U/L (15-37); Alanine Aminotransfer ALT/SGPT 11 U/L (13-56); Albumin, Serum 2.3 g/dL (3.2-5.0); Alkaline Phosphatase 73 U/L (45-117); Anion Gap 5 (5-15); BUN 7 mg/dL (7-18); BUN/Creat Ratio 13.1 RATIO (10-20); Calcium,Total 8.5 mg/dL (8.5-10.1); Chloride 104 mmol/L (98-107); Creatinine, Serum 0.54 mg/dL (0.55-1.02); EST Glomerular Filtration Rate 121 mL/min (>60); Est Glom Filt Rate - Afr Amer 146 mL/min (>60); Estimated Creatinine Clearance 40.63 ml/min; Globulin 4.2 g/dL (2.2-4.2); Glucose 117 mg/dL (74-106); Lipase 46 U/L (73-393); Potassium 4.1 mmol/L (3.5-5.1); Protein, Total 6.5 g/dL (6.4-8.2); Sodium Level 136 mmol/L (136-145)
--- NOTE | 2019-11-16 07:19 | PN.SURG_ITS ---
Patient Problems: Active and Suspected Problems (Last Reviewed 07/07/18 @ 15:18 by Charleen Hall) Acute cholecystitis (Acute) Subjective: Patient reports feeling better than yesterday - Physical Exam Vitals/I&O's: Vital Signs Temp Pulse Resp BP Pulse Ox 98.4 F 91 18 126/62 H 98 11/16/19 03:37 11/16/19 03:37 11/16/19 03:37 11/16/19 03:37 11/16/19 03:37 Oxygen Flow Rate (L/min) 2 Oxygen Delivery Method Nasal Cannula Weight: 278 lb 3.2 oz Body Mass Index (BMI) 52.5 Intake and Output for Last 24 Hours 11/14/19 11/15/19 11/16/19 23:59 23:59 23:59 Intake Total 710 / 710 Output Total 500 / 500 Balance 210 / 210 General: Alert, Oriented x3 Neck: No JVD Cardiovascular: Regular rate, Regular Rhythm Abdomen: Tender - Tender right upper quadrant Laboratory Results 11/15/19 23:09: POC Glucose 140 H 11/16/19 05:12: POC Glucose 113 H 11/16/19 05:40: WBC 9.6, RBC 4.03 L, Hgb 12.0, Hct 37.3, MCV 92.6, MCH 29.8, MCHC 32.2, RDW Std Deviation 44.9 H, RDW Coeff of Penny 13.2, Plt Count 309, MPV 11.3, Immature Gran % (Auto) 0.400, Neut % (Auto) 71.6 H, Lymph % (Auto) 16.0 L, [place] % (Auto) 10.7 H, Eos % (Auto) 0.9, Baso % (Auto) 0.4, Absolute Neuts (auto) 6.9, Absolute Lymphs (auto) 1.54, Nucleated RBC % 0, Differential Comment SCANNED, Reactive Lymphocytes RARE 11/16/19 05:40: Sodium 136, Potassium 4.1, Chloride 104, Carbon Dioxide 27.0, Anion Gap 5, BUN 7, Creatinine 0.54 L, Estim Creat Clear Calc 40.63, Est GFR (MDRD) Af Amer 146, Est GFR (MDRD) Non-Af 121, BUN/Creatinine Ratio 13.1, Glucose 117 H, Calcium 8.5, Total Bilirubin 0.50, AST 6 L, ALT 11 L, Alkaline Phosphatase 73, Total Protein 6.5, Albumin 2.3 L, Globulin 4.2, Albumin/Globulin Ratio 0.5 L, Lipase 46 L 11/16/19 05:40: Hemoglobin A1c Pending Current Medications Acetaminophen (Tylenol) 650 mg PO Q4H PRN PRN PRN Reason: Pain Score 1-10/10/FEVER Dextrose (D50w Syringe) 0 gm IV X1 PRN; Protocol PRN Reason: Hypoglycemia Fluticasone Propionate (Flonase Nasal [place]) 1 spray NASAL BID PRN PRN PRN Reason: ALLERGIES Gabapentin (Neurontin) 400 mg PO TID [facility] Last Admin: 11/16/19 05:14 Dose: Not Given Documented by: Glucagon () 1 mg IM .X1 PRN PRN Reason: Hypoglycemia Sodium Chloride () 250 mls @ 15 mls/hr IV .[id number] PRN PRN Reason: Saline Flush Sodium Chloride () 1,000 mls @ 100 mls/hr IV .Q10H [facility] Last Infusion: 11/16/19 06:14 Dose: 0 mls/hr Documented by: Pantoprazole Sodium 40 mg/ (Sodium Chloride) 110 mls @ 330 mls/hr IV Q24 KATHY Ciprofloxacin (Cipro) 400 mg in 200 mls @ 200 mls/hr IV Q12 KATHY Metronidazole (Flagyl) 500 mg in 100 mls @ 100 mls/hr IV Q8 [facility] Last Admin: 11/16/19 06:14 Dose: 100 mls/hr Documented by: Influenza Virus Vaccine Quadrival (Flucelvax /Fluzone ) 0.5 ml IM .ONCE ONE Stop: 11/16/19 10:01 Insulin Human Lispro (Humalog Kwikpen (Bkc)) 0 unit SC Q6 KATHY; Protocol Last Admin: 11/16/19 05:13 Dose: Not Given Documented by: Metoprolol Succinate (Toprol Xl (Beta Vaughn)) 25 mg PO DAILY [facility] Morphine Sulfate () 2 - 4 mg IV Q2H PRN PRN PRN Reason: Pain Score 4-10/10 Last Admin: 11/16/19 02:59 Dose: 4 mg Documented by: Ondansetron HCl (Zofran) 4 mg IV Q6H PRN PRN PRN Reason: NAUSEA Last Admin: 11/16/19 02:59 Dose: 4 mg Documented by: Sodium Chloride () 10 - 40 ml IV UD PRN PRN Reason: SALINE FLUSH Last Admin: 11/16/19 02:59 Dose: 10 ml Documented by: Medical Necessity - Tobacco Use Smoking Status: Current every day smoker Tobacco Use: Cigarettes Assessment/Plan All Active Problems (Last Reviewed 07/07/18 @ 15:18 by Charleen Hall) COPD exacerbation (Acute) Acute respiratory failure with hypoxia (Acute) Pneumonia (Acute) Pneumonia (Acute) Chest pain (Acute) Acute cholecystitis (Acute) Palpitations (Acute) Vertigo (Acute) 69-year-old female with acute cholecystitis 1. Patient is doing well this morning but still having some pain. White count is returned normal. Plan for laparoscopic cholecystectomy with possible bile duct exploration this afternoon. ERCP if necessary tomorrow. Bossman Rios MD Pager: [facility] [address] [place] [address] [address] [place] [address] Office:
[2019-11-16 08:09] LABS: Hemoglobin A1c 6.2 % (3.8-5.6)
[2019-11-16] MEDS: Metoprolol(XL)Succ 25 MG Tablet PO (08:16)
[2019-11-16 09:55] LABS: Bedside Glucose 143 mg/dL (70-110)
--- NOTE | 2019-11-16 10:30 | GALL_PTH ---
PATIENT: [address] LOC: MS3 U#:[id number] AGE/SX: 69/F ROOM: UT322 RE11/15/[address]: Dr. Bossman Rios MD : [id number] BED: 1 DIS: 11/18/2019 SPEC #: [id number] RECD: 11/16/19 12:05 STATUS: MACHELLE YVETTE #: [id number] MENDEZ: 11/16/19 10:[address]: Bossman Rios DEPT: SURGICAL PATHOLOGY RECD BY: Romina Camacho ENTERED: 11/16/19 13:23 SP TYPE: ANGELITA LLAMAS DR: Dr. Jesse Curran DO Tissues: Gallbladder, NOS Procedures: Surgery Specimen Level III HEADER OPERATION: Laparoscopic cholecystectomy with IOC PRE-OP DIAGNOSIS: Acute cholecystitis TISSUE SUBMITTED: Gallbladder MICROSCOPIC DIAGNOSIS Gallbladder, cholecystectomy: Acute and chronic ulcerated cholecystitis and cholelithiasis. Focal dysplastic changes present. Cystic duct margin with no pathologic change. BEAN:kaden 11/20/19 COMMENT Case has been reviewed in consultation with Dr. Ramos who concurs with the above diagnosis. IDC:SJ MICROSCOPIC DESCRIPTION Slides are reviewed. GROSS DESCRIPTION Received is one container labeled with the patient's name and designated gallbladder. The specimen consists of a gallbladder measuring 12 cm in length and up to 4 cm in diameter. The external surface is pink-gurrola, smooth and glistening for the most part. Focally it is granular, hemorrhagic and contains cautery artifact. The gallbladder contains green-yellow mucoid bile and multiple multifaceted, utqdlsdt-snvtuy-itnxmd stones measuring in aggregate 7 x 6 x 3 cm and 1.5 to 2 cm in greatest dimension. The mucosa is bile-stained and without any mass lesions. The gallbladder wall measures 0.2 cm in thickness. [employer]iologic Technology Instructor sections from the gallbladder and the cystic duct are submitted in four cassettes. / BEAN:kaden 11/16/19 More sections are submitted in three more cassettes, 2-4. / BEAN:kaden 11/17/19 TC:2 CPT: 32785
[2019-11-16] MEDS: Ciprofloxacin 400 MG/200 ML BAG 200 MG IV ×2 (10:37→21:45)
[2019-11-16] MEDS: Bupiv/Epi 0.25% 30 ML Vial (10:50)
--- NOTE | 2019-11-16 10:56 | RAD_ITS ---
STUDY: INTRAOPERATIVE CHOLANGIOGRAM. REASON FOR EXAM: Female, 69 years old. LAP ESTEFANI -- 1 CINE RUN, 16.4 FLUORO SEC, 13.16mGy FLUOROSCOPY TIME (if supplied): ( 16.4 seconds ) minutes/seconds. A single loop consisting of 108 frames was submitted. TECHNIQUE: Intraoperative quadrant was performed by the surgeon. Imaging was submitted. COMPARISON: None. FINDINGS: The visualized intra and extrahepatic biliary ducts are unremarkable. No intraluminal filling defect is seen. There is free flow of contrast into the duodenum. RAD/Cholangiogram/ O R,Initial IMPRESSION: Unremarkable intraoperative cholangiogram. Electronically Signed: Jesse Huntley, at 13:31 EDT , Service support ,
--- NOTE | 2019-11-16 10:58 | CPS ---
SMI AT BEDSIDE...PT NOT IN ROOM
--- NOTE | 2019-11-16 12:39 | OP.PCM_ITS ---
Problem List (1) Acute cholecystitis Status: Resolved Report of Operation Date of Procedure: 11/16/19 Pre-Operative Diagnosis: Acute cholecystitis Post-Operative Diagnosis: Same Surgery/Procedure Performed:: Laparoscopic cholecystectomy with cholangiogram Description of Surgical Findings:: Inflamed area in the right upper quadrant. Inflamed gallbladder. Normal intraoperative cholangiogram Specimen's removed: Gallbladder and contents Description of Procedure: After obtaining informed consent patient was brought back to the operating room. General anesthesia was induced. The abdomen was prepped and draped in usual sterile fashion. A small midline incision was made superior to the umbilicus and deepened to the level of fascia. The fascia was elevated and incised. Next the peritoneum was elevated and incised in the same fashion. Finger sweep was performed and the Marsh trocar was placed into the abdomen. The balloon was inflated. The abdomen was inflated to 15 mmHg. Next a camera was introduced into the abdomen and the abdomen was inspected. Next under direct visualization three 5-mm ports were placed one subxiphoid and 2 subcostal. Next the gallbladder was elevated and retracted toward the right shoulder. The peritoneum was stripped from the gallbladder. The infundibulum was located and retracted laterally. Next the triangle of Calot was dissected and the cystic duct and cystic artery were identified. Cholangiograms were performed. The Rizo clamp was used to clamp across the infundibulum and the catheter needle was inserted into the gallbladder. Under fluoroscopy contrast was instilled into the gallbladder and the common duct, cystic duct as well as proximal hepatic ducts were identified. There was good filling of the duodenum. There were no filling defects noted in the common bile duct. The clamp was removed as well as the needle and the infundibulum was grasped once more. Three hemolock clips were placed across the cystic duct. The cystic duct was then divided leaving 2 clips on the stump. The cystic artery was clipped and divided in the same fashion. The hook cautery was then used to take the gallbladder off of the gallbladder bed. Hemostasis was obtained. Gallbladder fossa was irrigated and no active bleeding or bile leakage was noted. Next the camera was introduced in the subxiphoid port. An Endopouch bag was placed through the umbilical port and the gallbladder was placed into it. The gallbladder was then removed through the umbilical incision. The camera was then reinserted through the umbilical port. The gallbladder fossa was inspected once more and noted to be hemostatic with no leaking bile. The abdomen was suctioned dry. The 5 mm ports were remove d under direct visualization. The umbilical port was then removed and the air was removed from the abdomen. Next using an 0 Vicryl suture the umbilical fascia was closed in a [id number]-[id number] fashion. The umbilical port site was irrigated local anesthetic was administered to all the incisions. All the incisions were closed with interrupted subcuticular 4-0 Monocryl sutures followed by Steri-Strips and dressings. The patient was awoken and taken to PACU in stable condition. - Admit VTE Documentation VTE Mechan Device Prophylaxis: SCD's
[2019-11-16 13:21] LABS: Bedside Glucose 179 mg/dL (70-110)
[2019-11-16] MEDS: 0.9% Normal Saline 1,000 ML 100 ML IV (14:18)
[2019-11-16 14:30] LABS: Bedside Glucose 169 mg/dL (70-110)
[2019-11-16] MEDS: Insulin Lispro 100 UNIT/ML INSULN.PEN SC (14:32)
[2019-11-16] MEDS: Gabapentin 400 MG Capsule PO ×2 (15:54→21:45)
--- NOTE | 2019-11-16 16:10 | CASEMGMT ---
KWAKU CM in to complete JENKINS form with patient. JENKINS form explained to patient, patient voiced understanding. Patient signed JENKINS form and original filed in chart. Patient provided with copy of signed JENKINS form. Patient had no further questions or concerns at this time.
--- NOTE | 2019-11-16 17:06 | CPS ---
patient not interested
[2019-11-16 18:55] LABS: Bedside Glucose 122 mg/dL (70-110)
[2019-11-16 23:55] LABS: Bedside Glucose 134 mg/dL (70-110)
[2019-11-17] VITALS (8 sets, daily range): BP systolic 127–159; BP diastolic 50–78; PULSE 86–97; RESP 16–18; TEMP 36.8–37.2; O2SAT 91–97; BMI 52.6
[2019-11-17] MEDS: Morphine 2 MG/ML Syringe IV ×4 (01:14→15:26)
[2019-11-17] MEDS: 0.9% Normal Saline 1,000 ML 100 ML IV ×2 (02:45→15:20)
[2019-11-17] MEDS: metroNIDAZOLE 500 MG/100 ML BAG 100 MG IV ×3 (05:22→21:03)
[2019-11-17] MEDS: Gabapentin 400 MG Capsule PO ×3 (05:30→21:03)
[2019-11-17 05:41] LABS: Bedside Glucose 119 mg/dL (70-110)
[2019-11-17 06:08] LABS: Absolute Lymphocyte Count 1.31 X10^3/uL (0.83-4.51); Absolute Neutrophil Count 8.2 X10^3/uL (2.0-7.7); Basophil# 0.04 X10^3/uL; Basophil% 0.4 % (0-1); Eosinophil# 0.06 X10^3/uL; Eosinophils% 0.6 % (0-5); Hematocrit 38.8 % (37-47); Hemoglobin 12.1 g/dL (12.0-15.0); Lymphocyte # 1.31 X10^3/ul (4.0); Lymphocyte % 12.2 % (19-41); Mean Corp Hgb Conc 31.2 g/dL (32-36); Mean Corpuscular Hgb 29.4 pg (27.0-32.0); Mean Corpuscular Volume 94.2 fL (81-99); Mean Platelet Vol. 11.1 fl (6.2-12.0); Monocyte# 1.12 X10^3/uL; Monocyte% 10.4 % (0-10); NRBC Flagged by Analyzer 0 % (0-5); Neutrophil # 8.15 X10^3/uL (2.7-7.7); Neutrophil % 75.8 % (47-70); Platelet Count 297 K/mm3 (150-450); RBC Distribution Width SD 45.1 fl (35.1-43.9); Red Blood Count 4.12 M/mm3 (4.2-5.4); White Blood Count 10.7 K/mm3 (4.4-11.0)
[2019-11-17 06:40] LABS: ALB/GLOB Ratio 0.5 RATIO (0.9-2.4); AST(SGOT) 16 U/L (15-37); Alanine Aminotransfer ALT/SGPT 15 U/L (13-56); Albumin, Serum 2.2 g/dL (3.2-5.0); Alkaline Phosphatase 71 U/L (45-117); Anion Gap 3 (5-15); BUN 6 mg/dL (7-18); BUN/Creat Ratio 10.5 RATIO (10-20); Calcium,Total 8.3 mg/dL (8.5-10.1); Chloride 103 mmol/L (98-107); Creatinine, Serum 0.57 mg/dL (0.55-1.02); EST Glomerular Filtration Rate 111 mL/min (>60); Est Glom Filt Rate - Afr Amer 135 mL/min (>60); Estimated Creatinine Clearance 40.63 ml/min; Globulin 4.1 g/dL (2.2-4.2); Glucose 132 mg/dL (74-106); Potassium 4.1 mmol/L (3.5-5.1); Protein, Total 6.3 g/dL (6.4-8.2); Sodium Level 137 mmol/L (136-145)
--- NOTE | 2019-11-17 07:24 | PN.SURG_ITS ---
Subjective: Patient reports that she tolerated clears. No nausea or vomiting overnight. Abdominal pain is improved. - Physical Exam Vitals/I&O's: Vital Signs Temp Pulse Resp BP Pulse Ox 98.3 F 90 18 140/68 H 94 11/17/19 04:35 11/17/19 04:35 11/17/19 04:35 11/17/19 04:35 11/17/19 04:35 Oxygen Flow Rate (L/min) 2 Oxygen Delivery Method Nasal Cannula Weight: 278 lb 3.2 oz Body Mass Index (BMI) 52.5 Intake and Output for Last 24 Hours 11/15/19 11/16/19 11/17/19 23:59 23:59 23:59 Intake Total 2009 / 0 1900 / 1900 Output Total 1200 / 1400 850 / 850 Balance 810 / 1110 1050 / 1050 General: Alert, Oriented x3 Neck: No JVD Lungs: Clear to auscultation, Normal air movement Abdomen: Soft, Non-Distended, Tender - Mildly tender Musculoskeletal: No Muscle Wasting Neurological: Cranial nerves II-XII grossly intact Laboratory Results 11/16/19 05:40: Hemoglobin A1c 6.2 H 11/16/19 09:44: POC Glucose 143 H 11/16/19 13:15: POC Glucose 179 H 11/16/19 14:23: POC Glucose 169 H 11/16/19 18:04: POC Glucose 122 H 11/16/19 23:51: POC Glucose 134 H 11/17/19 05:28: POC Glucose 119 H 11/17/19 05:55: WBC 10.7, RBC 4.12 L, Hgb 12.1, Hct 38.8, MCV 94.2, MCH 29.4, MCHC 31.2 L, RDW Std Deviation 45.1 H, RDW Coeff of Penny 13.0, Plt Count 297, MPV 11.1, Immature Gran % (Auto) 0.600, Neut % (Auto) 75.8 H, Lymph % (Auto) 12.2 L, [place] % (Auto) 10.4 H, Eos % (Auto) 0.6, Baso % (Auto) 0.4, Absolute Neuts (auto) 8.2 H, Absolute Lymphs (auto) 1.31, Nucleated RBC % 0 11/17/19 05:55: Sodium 137, Potassium 4.1, Chloride 103, Carbon Dioxide 31.0, Anion Gap 3 L, BUN 6 L, Creatinine 0.57, Estim Creat Clear Calc 40.63, Est GFR (MDRD) Af Amer 135, Est GFR (MDRD) Non-Af 111, BUN/Creatinine Ratio 10.5, Glucose 132 H, Calcium 8.3 L, Total Bilirubin 0.40, AST 16, ALT 15, Alkaline Phosphatase 71, Total Protein 6.3 L, Albumin 2.2 L, Globulin 4.1, Albumin/Globulin Ratio 0.5 L Current Medications Acetaminophen (Tylenol) 650 mg PO Q4H PRN PRN PRN Reason: Pain Score 1-10/10/FEVER Dextrose (D50w Syringe) 0 gm IV X1 PRN; Protocol PRN Reason: Hypoglycemia Fluticasone Propionate (Flonase Nasal [place]) 1 spray NASAL BID PRN PRN PRN Reason: ALLERGIES Gabapentin (Neurontin) 400 mg PO TID [facility] Last Admin: 11/17/19 05:30 Dose: 400 mg Documented by: Glucagon () 1 mg IM .X1 PRN PRN Reason: Hypoglycemia Sodium Chloride () 250 mls @ 15 mls/hr IV .[id number] PRN PRN Reason: Saline Flush Sodium Chloride () 1,000 mls @ 100 mls/hr IV .Q10H [facility] Last Admin: 11/17/19 02:45 Dose: 100 mls/hr Documented by: Pantoprazole Sodium 40 mg/ (Sodium Chloride) 110 mls @ 330 mls/hr IV Q24 [facility] Last Infusion: 11/16/19 10:10 Dose: Infused Documented by: Ciprofloxacin (Cipro) 400 mg in 200 mls @ 200 mls/hr IV Q12 KATHY Last Infusion: 11/16/19 22:49 Dose: Infused Documented by: Metronidazole (Flagyl) 500 mg in 100 mls @ 100 mls/hr IV Q8 [facility] Last Infusion: 11/17/19 06:28 Dose: Infused Documented by: Influenza Virus Vaccine Quadrival (Flucelvax /Fluzone ) 0.5 ml IM .ONCE ONE Stop: 11/17/19 10:01 Insulin Human Lispro (Humalog Kwikpen (Bkc)) 0 unit SC Q6 [facility]; Protocol Last Admin: 11/17/19 05:29 Dose: Not Given Documented by: Metoprolol Succinate (Toprol Xl (Beta Vaughn)) 25 mg PO DAILY KATHY Last Admin: 11/16/19 08:16 Dose: 25 mg Documented by: Morphine Sulfate () 2 - 4 mg IV Q2H PRN PRN PRN Reason: Pain Score 4-10/10 Last Admin: 11/17/19 05:29 Dose: 4 mg Documented by: Ondansetron HCl (Zofran) 4 mg IV Q6H PRN PRN PRN Reason: NAUSEA Last Admin: 11/16/19 02:59 Dose: 4 mg Documented by: Sodium Chloride () 10 - 40 ml IV UD PRN PRN Reason: SALINE FLUSH Last Admin: 11/16/19 02:59 Dose: 10 ml Documented by: Medical Necessity - Tobacco Use Smoking Status: Current every day smoker Tobacco Use: Cigarettes Assessment/Plan All Active Problems (Last Reviewed 07/07/18 @ 15:18 by Charleen Hall) COPD exacerbation (Acute) Acute respiratory failure with hypoxia (Acute) Pneumonia (Acute) Pneumonia (Acute) Chest pain (Acute) Acute cholecystitis (Resolved) Palpitations (Acute) Vertigo (Acute) 69-year-old female with acute cholecystitis 1. Patient is doing well today. Her white count is returned to normal. She tolerated clears and I will advance her to full's for breakfast. If she tolerates that she can try regular food for lunch and maybe be discharged today or tomorrow. I encouraged her to ambulate and use incentive spirometer. Patient is on a sliding scale for her diabetes. Bossman Rios MD Pager: [facility] [address] [place] [address], [address] [place] [address] Office:
--- NOTE | 2019-11-17 07:28 | PCM.DC.GB ---
Discharge Diet: Light diet - advance as tolerated Discharge Activity: Return to Normal Activity, May Not Drive - for 2-3 days or while taking narcotic pain medicataions., - - Do not drive, work heavy equipment or sign legal documents for 24 hours. May shower in (days): 1 - with the bandage in place. Additional Activity Instructions:: Pain medication may cause nausea. You should typically eat light foods as you take your pain medications. Pain medication may also cause constipation. If this is a problem for you, please discuss with your doctor. Call your doctor if your incision/area has: Continuous Slow Oozing, Sudden Increased Bleeding, Increased Pain/ Swelling, Increased Redness, Foul Smelling Discharge, Fever of 101 or Higher Call your doctor if you observe: Fever of 101 or Higher Suture Line Care: Avoid Pulling/Pushing, Avoid Pinching/Bending Additional Dressing/Incision Instructions:: Leave operative bandaids on for 2 days. When you remove dressing, leave Steri-Strips on until your follow-up appointment, or until the Steri-Strips fall off on their own. Allergies/Adverse Reactions: Allergies ampicillin Allergy (Verified 07/16/19 12:31) Hives codeine Allergy (Verified 07/16/19 12:31) Hives meperidine HCl [From Demerol] Allergy (Verified 07/16/19 12:31) Hives Penicillins [PCN] Allergy (Verified 07/16/19 12:31) Hives propoxyphene napsylate [From Darvocet-N] Allergy (Verified 07/16/19 12:31) Hives Medications to take at Discharge Insulin Glargine [Lantus SoloStar Pen] 100 units SUBCUT QHS 03/14/14 Liraglutide [Victoza 2-Bronson] 0.8 mg SQ DAILY 12/04/14 Oxycodone HCl/Acetaminophen [Percocet 5-325] 1 tab PO Q6H 04/02/16 Fluticasone 0.05% [Flonase Nasal [place]] 1 spray NARES BID PRN 07/16/19 Aspirin [Low Dose Aspirin EC] 81 mg PO DAILY 11/15/19 Gabapentin [Neurontin] 400 mg PO TID 11/15/19 Metoprolol Succinate [Toprol Xl] 25 mg PO DAILY 11/15/19 Primary Care Physician: Jesse Curran DO [Primary Care Provider] - Test Results: Test results from this visit will be discussed in further detail at your follow-up appointment, if applicable. Please Follow Up With: Bossman Rios MD When: Please call to schedule 2 week follow up appointment. [phone]
[2019-11-17] MEDS: Metoprolol(XL)Succ 25 MG Tablet PO (09:32)
[2019-11-17] MEDS: Ciprofloxacin 400 MG/200 ML BAG 200 MG IV ×2 (09:51→21:03)
[2019-11-17] MEDS: oxyCODONE 5 MG Tablet PO ×3 (09:56→18:49)
--- NOTE | 2019-11-17 10:12 | NURSING ---
Sitting up in chair. Went for her first walk this morning.
[2019-11-17] MEDS: Insulin Lispro 100 UNIT/ML INSULN.PEN SC ×2 (11:51→18:49)
[2019-11-17 12:00] LABS: Bedside Glucose 223 mg/dL (70-110)
[2019-11-17 17:50] LABS: Bedside Glucose 150 mg/dL (70-110)
[2019-11-18] MEDS: oxyCODONE 5 MG Tablet PO ×3 (01:21→10:25)
[2019-11-18 01:26] LABS: Bedside Glucose 147 mg/dL (70-110)
[2019-11-18 03:00] VITALS: O2SAT 95
[2019-11-18 03:30] VITALS: BP 146/56; PULSE 97; RESP 18; TEMP 37; O2SAT 95
[2019-11-18] MEDS: Acetaminophen 325 MG Tablet 650 MG PO ×2 (03:49→08:26)
[2019-11-18] MEDS: 0.9% Normal Saline 1,000 ML 100 ML IV (03:52)
[2019-11-18] MEDS: metroNIDAZOLE 500 MG/100 ML BAG 100 MG IV (05:08)
[2019-11-18] MEDS: Insulin Lispro 100 UNIT/ML INSULN.PEN SC ×2 (05:28→11:31)
[2019-11-18] MEDS: Gabapentin 400 MG Capsule PO (05:29)
[2019-11-18 05:46] LABS: Bedside Glucose 176 mg/dL (70-110)
[2019-11-18 07:15] VITALS: O2SAT 95
[2019-11-18 08:20] VITALS: BP 141/72; PULSE 97; RESP 20; TEMP 36.6; O2SAT 93
[2019-11-18 08:25] VITALS: PULSE 97
[2019-11-18] MEDS: Metoprolol(XL)Succ 25 MG Tablet PO (08:25)
--- NOTE | 2019-11-18 10:09 | PCM.PN.SRG ---
Subjective: Patient without complaints of discomfort this morning. Tolerating diet. Objective: Abdomen is obese and soft - Physical Exam Vitals/I&O's: Vital Signs Temp Pulse Resp BP Pulse Ox 98.6 F 97 18 146/56 H 95 11/18/19 03:30 11/18/19 08:25 11/18/19 03:30 11/18/19 03:30 11/18/19 07:15 Oxygen Flow Rate (L/min) 2 Oxygen Delivery Method Nasal Cannula Weight: 278 lb 3.2 oz Body Mass Index (BMI) 52.5 Intake and Output for Last 24 Hours 11/16/19 11/17/19 11/18/19 23:59 23:59 23:59 Intake Total 2009 / 0 4800.00 / 5200.00 1770 / 1770 Output Total 1200 / 1400 2300 / 2450 700 / 700 Balance 810 / 1110 2500.00 / 2750.00 1070 / 1070 Laboratory Results 11/17/19 11:49: POC Glucose 223 H 11/17/19 17:34: POC Glucose 150 H 11/18/19 01:17: POC Glucose 147 H 11/18/19 05:25: POC Glucose 176 H Current Medications Acetaminophen (Tylenol) 650 mg PO Q4H PRN PRN PRN Reason: Pain Score 1-10/10/FEVER Last Admin: 11/18/19 08:26 Dose: 650 mg Documented by: Dextrose (D50w Syringe) 0 gm IV X1 PRN; Protocol PRN Reason: Hypoglycemia Fluticasone Propionate (Flonase Nasal [place]) 1 spray NASAL BID PRN PRN PRN Reason: ALLERGIES Gabapentin (Neurontin) 400 mg PO TID [facility] Last Admin: 11/18/19 05:29 Dose: 400 mg Documented by: Glucagon () 1 mg IM .X1 PRN PRN Reason: Hypoglycemia Sodium Chloride () 250 mls @ 15 mls/hr IV .[id number] PRN PRN Reason: Saline Flush Sodium Chloride () 1,000 mls @ 100 mls/hr IV .Q10H [facility] Last Admin: 11/18/19 03:52 Dose: 100 mls/hr Documented by: Pantoprazole Sodium 40 mg/ (Sodium Chloride) 110 mls @ 330 mls/hr IV Q24 [facility] Last Admin: 09/26/20 08:27 Dose: 330 mls/hr Documented by: Ciprofloxacin (Cipro) 400 mg in 200 mls @ 200 mls/hr IV Q12 [facility] Last Infusion: 11/17/19 22:11 Dose: Infused Documented by: Metronidazole (Flagyl) 500 mg in 100 mls @ 100 mls/hr IV Q8 [facility] Last Infusion: 11/18/19 06:18 Dose: Infused Documented by: Insulin Human Lispro (Humalog Kwikpen (Bkc)) 0 unit SC Q6 [facility]; Protocol Last Admin: 11/18/19 05:28 Dose: 2 u Documented by: Metoprolol Succinate (Toprol Xl (Beta Vaughn)) 25 mg PO DAILY [facility] Last Admin: 11/18/19 08:25 Dose: 25 mg Documented by: Morphine Sulfate () 2 - 4 mg IV Q2H PRN PRN PRN Reason: Pain Score 4-10/10 Last Admin: 11/17/19 15:26 Dose: 2 mg Documented by: Ondansetron HCl (Zofran) 4 mg IV Q6H PRN PRN PRN Reason: NAUSEA Last Admin: 11/16/19 02:59 Dose: 4 mg Documented by: Oxycodone HCl (Oxyir) 5 - 10 mg PO Q4H PRN PRN PRN Reason: Pain Score 4-10/10 Last Admin: 11/18/19 05:29 Dose: 5 mg Documented by: Sodium Chloride () 10 - 40 ml IV UD PRN PRN Reason: SALINE FLUSH Last Admin: 11/16/19 02:59 Dose: 10 ml Documented by: Medical Necessity - Tobacco Use Smoking Status: Current every day smoker Tobacco Use: Cigarettes Assessment/Plan All Active Problems (Last Reviewed 07/07/18 @ 15:18 by Charleen Hall) COPD exacerbation (Acute) Acute respiratory failure with hypoxia (Acute) Pneumonia (Acute) Pneumonia (Acute) Chest pain (Acute) Acute cholecystitis (Resolved) Palpitations (Acute) Vertigo (Acute) Okay for discharge home.
[2019-11-18] MEDS: Ciprofloxacin 400 MG/200 ML BAG 200 MG IV (10:25)
[2019-11-18 11:36] LABS: Bedside Glucose 228 mg/dL (70-110)
[2019-11-18 12:15] VITALS: BP 135/103; PULSE 88; RESP 18; TEMP 36.6; O2SAT 94
== END 2019-11-18 12:30 | disposition home or self-care (01) ==
PROVIDERS: Anesthesiology; Admitting Provider Surgery; PCP Student in an Organized Health Care Education/Training Program; Visit Provider Surgery
PROC: (CPT 47610; principal; 2019-11-16 10:10)
DX: K80.12 Calculus of gallbladder with acute and chronic cholecystitis without obstruction (principal); E66.01 Morbid (severe) obesity due to excess calories; E11.51 Type 2 diabetes mellitus with diabetic peripheral angiopathy without gangrene; M19.90 Unspecified osteoarthritis, unspecified site; G47.33 Obstructive sleep apnea (adult) (pediatric); I48.0 Paroxysmal atrial fibrillation; E78.00 Pure hypercholesterolemia, unspecified; I10 Essential (primary) hypertension; Z23 Encounter for immunization; N39.3 Stress incontinence (female) (male); F17.210 Nicotine dependence, cigarettes, uncomplicated; Z68.43 Body mass index [BMI] 50.0-59.9, adult; K83.8 Other specified diseases of biliary tract; Z79.899 Other long term (current) drug therapy; Z79.4 Long term (current) use of insulin; Z79.82 Long term (current) use of aspirin; Z86.718 Personal history of other venous thrombosis and embolism
CPT/HCPCS: 00790; 47563; 36415; 71045; 74300; 76000; 80053; 82962; 83036; 83690; 85025; 88304; 93005; 96361; 96365; 96366; 96367; 96375; 96376; 99218; 99406; G0008; J7030; J7120; 90686; A4216; G0378; J0744; J2405

== ENCOUNTER 2019-11-20 15:22 | Emergency (ER) | payer MEDICARE, SELFPAY ==
[2019-11-16 09:33] VITALS: BMI 52.5
[2019-11-20 15:24] VITALS: BP 130/71; PULSE 99; RESP 16; TEMP 36.8; O2SAT 97; BMI 56.0
--- NOTE | 2019-11-20 17:25 | ED.DCSUM_ITS ---
- ER Visit Summary Date of Service: 11/20/19 Chief Complaint: Cellulitis? History of Present Illness: The patient is a [address] Leoncio Olmstead. 4 days ago she had a laparoscopic cholecystectomy by Dr. Rios. She was discharged from the hospital 2 days ago. She reports that the day prior to discharge she began having pain in her right antecubital fossa where the IV was. States pain is now worsened. It is a sharp pain that is 7 on 10 at worst and 3-10 currently. Is worsened by bending her elbow and relieved by rest. She denies any paresthesias distally. Patient denies any fever or chills. She reports that her abdomen is healing well and she has no concerns in that regard. She reports that she has had 2 episodes of diarrhea today after eating yogurt. She is had nausea without vomiting. Her pain is controlled with oxycodone. She denies any pain currently. Physical Examination: Vitals: Stable. Afebrile. General: Well-nourished and well-developed. Head: Normocephalic atraumatic. Neck: Supple, no lymphadenopathy. No JVD. Nontender. Cardiovascular: Regular rate and rhythm. No murmurs. Respiratory: No respiratory distress. Clear to auscultation bilaterally. Abdominal: Soft, nontender, nondistended, normal bowel sounds. No guarding, rebound, or peritoneal signs. Incisions are clean, dry, intact. There is no erythema or induration to suggest infection. Back: Nontender. Extremities: Right antecubital fossa shows a palpable superficial clot with minimal surrounding erythema consistent with superficial thrombophlebitis. She has no swelling distal to this. There is no evidence of a deeper venous thrombosis. She is a 2+ radial pulse and normal sensation light touch. Skin: Normal color, no rash. Neurologic: Alert and oriented ?3. Cranial nerves II through XII are intact. Normal strength and sensation. Psych: Normal affect. Emergency Department Course and Treatment: Patient was treated with ibuprofen. Had a prolonged discussion with her about symptomatic management of this. Treatment Plan: Patient we discharged instructions to use ibuprofen and warm compresses. Follow-up with her primary care physician in 2 days for wound check. Return to the emergency department for any worsening symptoms. Disposition: To home in improved and stable condition. Impression: 1. Superficial thrombophlebitis right antecubital fossa. 2. 4-day status post cholecystectomy. This note was generated with [employer] dictation software. It may contain incorrect words, spelling, and punctuation that were not noted in review of the chart prio r to signing ED Disposition - Plan for ED Patient: Disposition: Home or Assisted Living Instructions: ED Phlebitis Superficial Referrals: Jesse Curran DO [Primary Care Provider] - 2 Days for wound check
[2019-11-20] MEDS: Ibuprofen 600 MG Tablet PO (17:41)
== END 2019-11-20 17:44 | disposition home or self-care (01) ==
LOC: ED 17:37
PROVIDERS: Emergency Provider Emergency Medicine; PCP Student in an Organized Health Care Education/Training Program
DX: I80.9 Phlebitis and thrombophlebitis of unspecified site (principal); Z90.49 Acquired absence of other specified parts of digestive tract; E11.9 Type 2 diabetes mellitus without complications; Z72.0 Tobacco use
CPT/HCPCS: 99283

== ENCOUNTER → 2020-04-08 10:10 | Outpatient (CLI) | payer MEDICARE, SELFPAY ==
[2020-04-08 11:25] LABS: Anion Gap 6 (5-15); BUN 14 mg/dL (7-18); BUN/Creat Ratio 16.2 RATIO (10-20); Calcium,Total 8.7 mg/dL (8.5-10.1); Chloride 100 mmol/L (98-107); Creatinine, Serum 0.87 mg/dL (0.55-1.02); EST Glomerular Filtration Rate 69 mL/min (>60); Est Glom Filt Rate - Afr Amer 84 mL/min (>60); Glucose 291 mg/dL (74-106); Potassium 4.1 mmol/L (3.5-5.1); Sodium Level 135 mmol/L (136-145)
== END ==
PROVIDERS: PCP Student in an Organized Health Care Education/Training Program; Referring Provider Student in an Organized Health Care Education/Training Program; Visit Provider Student in an Organized Health Care Education/Training Program
DX: I50.9 Heart failure, unspecified (principal)
CPT/HCPCS: 36415; 80048

== ENCOUNTER → 2020-07-11 13:08 | Outpatient (CLI) | payer MEDICARE, SELFPAY ==
--- NOTE | 2020-07-11 13:10 | CT_ITS ---
STUDY: LOW DOSE CT LUNG CANCER SCREENING REASON FOR EXAM: Female, 69 years old. TOBACCO USE 1.5 pack per day x55 years RADIATION DOSAGE (If Supplied By Facility): CTDIvol = ( 3.18 ) mGy, DLP = ( 104.83 ) mGycm TECHNIQUE: No contrast was administered. Low dose technique was utilized (average mAS-38 and kVp 120). 1.25 mm axial source images with a slice interval of 1.25-mm were reconstructed in lung windows. 2.5 mm axial source images with a slice interval of 2.5-mm were reconstructed in lung windows. 5.0 mm axial source images with a slice interval of 5.0-mm were reconstructed in soft tissue windows. Nodule measured using lung windows on PACS and/or independent workstation with automated measurement of minimum and maximum diameter. Nodule measurement reported as average diameter rounded to the nearest whole number. Growth is defined as an increase ins size of greater than 1.5 mm. COMPARISON: 07/16/2019 There is underlying emphysema. No organized infiltrate. No suspicious noncalcified mass or nodule. Scattered groundglass opacifications are noted along with tree-in-bud opacification suggesting small airways inflammation. There is a calcified granuloma in the left upper lobe. There is dependent atelectasis. Calcified coronary vessels noted. Peripheral calcifications in the thoracic aorta without aneurysm. Bony structures show degenerative change CT/Low Dose CT Lung Screening IMPRESSION: Lung-RADS category 2 - Continue annual screening with LDCT in 12 months. IMPORTANT NOTES FOR USE: ACR Lung-RADS Version 1.1 Assessment Categories Release Date: 2018 Category: Coded 0-4 bases on nodule(s) with highest degree of suspicion. Negative screen is defined as categories 1 and 2; a positive screen is defined as categories 3 and 4. Category 3 and 4A nodules that are unchanged on interval CT should be coded as category 2, and individuals returned to screening in 12 months. Category 4X: Category 3 or 4 nodules with additional imaging findings that increase the suspicion of lung cancer, such as spiculation, GGN that doubles in size in 1 year, enlarged lymph notes, etc. Category Modifiers: S (significant finding unrelated to lung cancer) Electronically Signed: Aftab Marquez MD at 13:36 EDT , Service support ,
[2020-07-11 13:38] LABS: Hematocrit 43.4 % (37-47); Hemoglobin 13.6 g/dL (12.0-15.0); Mean Corp Hgb Conc 31.3 g/dL (32-36); Mean Corpuscular Hgb 29.3 pg (27.0-32.0); Mean Corpuscular Volume 93.5 fL (81-99); Mean Platelet Vol. 11.4 fl (6.2-12.0); Platelet Count 303 K/mm3 (150-450); RBC Distribution Width CV 14.1 % (11.6-14.6); RBC Distribution Width SD 48.4 fl (35.1-43.9); Red Blood Count 4.64 M/mm3 (4.2-5.4); White Blood Count 8.3 K/mm3 (4.4-11.0)
[2020-07-11 13:52] LABS: Anion Gap 4 (5-15); BUN 12 mg/dL (7-18); BUN/Creat Ratio 16.3 RATIO (10-20); Calcium,Total 8.9 mg/dL (8.5-10.1); Chloride 104 mmol/L (98-107); Creatinine, Serum 0.74 mg/dL (0.55-1.02); EST Glomerular Filtration Rate 83 mL/min (>60); Est Glom Filt Rate - Afr Amer 101 mL/min (>60); Glucose 160 mg/dL (74-106); Potassium 4.3 mmol/L (3.5-5.1); Sodium Level 139 mmol/L (136-145)
== END ==
PROVIDERS: PCP Student in an Organized Health Care Education/Training Program; Referring Provider Internal Medicine Pulmonary Disease; Visit Provider Internal Medicine Pulmonary Disease
DX: Z01.818 Encounter for other preprocedural examination (principal); Z87.891 Personal history of nicotine dependence; Z12.2 Encounter for screening for malignant neoplasm of respiratory organs
CPT/HCPCS: 36415; 71271; 80048; 85027

== ENCOUNTER → 2020-08-16 16:26 | Outpatient (CLI) | payer MEDICARE, SELFPAY | PROVIDERS: PCP Student in an Organized Health Care Education/Training Program; Visit Provider Otolaryngology | DX: Z11.52 Encounter for screening for COVID-19 (principal) | CPT/HCPCS: 87635; U0005; U0003 ==

== ENCOUNTER 2020-10-04 21:01 | Emergency (ER) | payer MEDICARE, SELFPAY ==
[2020-10-04 21:03] VITALS: BP 155/100; PULSE 91; RESP 16; TEMP 36.4; O2SAT 98; BMI 51.7
[2020-10-04 21:37] VITALS: BP 172/70; PULSE 83; RESP 24; O2SAT 98
--- NOTE | 2020-10-04 21:37 | EKG12_ITS ---
Test Reason : CP Blood Pressure : / mmHG Vent. Rate : 078 BPM Atrial Rate : 078 BPM P-R Int : 164 ms QRS Dur : 088 ms QT Int : 382 ms P-R-T Axes : 065 -10 017 degrees QTc Int : 435 ms Normal sinus rhythm Low voltage QRS Borderline ECG Confirmed by GREER BRAGG, BOB ([id number]), purchase request editor DESTINY SAENZ ([id number]) on 10/08/2020 9:13:58 AM Referred By: Confirmed By:BOB BUTTERFIELD MD
[2020-10-04 21:56] LABS: Absolute Lymphocyte Count 2.86 X10^3/uL (0.83-4.51); Absolute Neutrophil Count 8.7 X10^3/uL (2.0-7.7); Basophil# 0.08 X10^3/uL; Basophil% 0.6 % (0-1); Eosinophil# 0.26 X10^3/uL; Hematocrit 43.6 % (37-47); Lymphocyte # 2.86 X10^3/ul (0.83-4.51); Lymphocyte % 22.2 % (19-41); Mean Corp Hgb Conc 32.1 g/dL (32-36); Mean Corpuscular Hgb 30.6 pg (27.0-32.0); Mean Corpuscular Volume 95.2 fL (81-99); Mean Platelet Vol. 11.2 fl (6.2-12.0); Monocyte# 0.87 X10^3/uL; Monocyte% 6.7 % (0-10); NRBC Flagged by Analyzer 0 % (0-5); Neutrophil # 8.72 X10^3/uL (2.7-7.7); Neutrophil % 67.7 % (47-70); Platelet Count 310 K/mm3 (150-450); RBC Distribution Width CV 14.5 % (11.6-14.6); RBC Distribution Width SD 50.3 fl (35.1-43.9); Red Blood Count 4.58 M/mm3 (4.2-5.4); White Blood Count 12.9 K/mm3 (4.4-11.0)
--- NOTE | 2020-10-04 22:00 | RAD_ITS ---
INDICATION: chest pain EXAMINATION/TECHNIQUE: X-RAY - XR Chest 1 View COMPARISON: CT chest 07/16/2019 and chest x-ray 11/16/2019 FINDINGS: LINES/DEVICES: None. Overlying heart monitoring wires are present. LUNGS: Calcified pulmonary nodule periphery left upper lobe. Mildly increased interstitial markings lung bases likely representing atelectasis. No pleural effusion. No pneumothorax. MEDIASTINUM AND CARDIOVASCULAR STRUCTURES: Cardiac silhouette not enlarged. Central airways and mediastinal contour are unremarkable. BONES AND SOFT TISSUES: Age expected degenerative thoracic spine. RAD/Chest 1 View (Portable) IMPRESSION: All increased interstitial markings lung bases likely representing atelectasis. Electronically Signed: Jesse Harden DO at 22:49 EDT Tel , Service support ,
[2020-10-04 22:21] LABS: Anion Gap 5 (5-15); BUN 21 mg/dL (7-18); Calcium,Total 8.4 mg/dL (8.5-10.1); Chloride 106 mmol/L (98-107); EST Glomerular Filtration Rate 88 mL/min (>60); Est Glom Filt Rate - Afr Amer 107 mL/min (>60); Estimated Creatinine Clearance 38.14 ml/min; Glucose 137 mg/dL (74-106); Potassium 3.9 mmol/L (3.5-5.1); Sodium Level 140 mmol/L (136-145); Troponin-I HS 9.5 pg/mL (3.0-53.7)
--- NOTE | 2020-10-04 22:22 | EDS_ITS ---
HPI History of Present Illness Chief Complaint: Chest Pain Informant: patient Onset/Context/Timing Onset: Yesterday Activity at onset: gradual Timing: Continuous and Waxes and wanes Quality: Positive for Heaviness and Tightness Location: Substernal (Without radiation) Current Severity: Moderate Maximum Severity: Moderate Worsened By: Exertion; Not Worsened By Movement of Arm, Movement of Torso, Palpation and Breathing Relieved By: Nothing (Tried an albuterol treatment at home) Associated Symptoms: Positive for Dyspnea (Mild with wheezing), Cough (Bronchitis) and Palpitations (Occasional brief skipping-sensation); Negative for Nausea, Vomiting, Diaphoresis, Fever and Lightheadedness Narrative Narrative: Patient states I get bronchitis every time the weather changes and her doctor has her on prednisone for it, 50 mg daily, states it is helping some but she just started this course, she has been having chest heaviness and tightness since yesterday. She denies any known cardiac history. She sees pulmonary. She has been vaccinated against Covid. [facility] Medical History Diabetes mellitus type 2 in obese Hypercholesteremia Obstructive sleep apnea Osteoarthritis Palpitations Paroxysmal atrial fibrillation Peripheral vascular disease Vertigo Home Medications insulin glargine 100 units SC QHS 03/14/14 [History Last Taken 11/14/19 23:00] oxycodone-acetaminophen 1 tab PO Q6H 04/02/16 [History Last Taken 11/15/19 13:00] aspirin 81 mg PO DAILY 11/15/19 [History Last Taken 11/15/19 07:00] gabapentin 400 mg PO TID 11/15/19 [History Last Taken 11/15/19 12:00] metoprolol succinate 25 mg tablet,extended release 24 hr 25 mg PO DAILY #90 tab 07/23/20 [Rx Last Taken Unknown] Allergy/AdvReac Type Severity Reaction Status Date / Time ampicillin Allergy Hives Verified 10/04/20 21:03 codeine Allergy Hives Verified 10/04/20 21:03 meperidine HCl [From Demerol] Allergy Hives Verified 10/04/20 21:03 Penicillins [PCN] Allergy Hives Verified 10/04/20 21:03 propoxyphene napsylate Allergy Hives Verified 10/04/20 21:03 [From Darvocet-N] Family History Mother Heart disease Brother Heart disease Grandfather CVA (cerebral vascular accident) Grandmother Myocardial infarction Surgical History History of appendectomy History of cardiac catheterization History of hysterectomy History of knee replacement History of laparoscopic cholecystectomy (~11/2019) History of lumpectomy of both breasts History of tubal ligation Social History Smoking Status: Current every day smoker tobacco type: cigarettes alcohol intake: never substance use type: does not use caffeine: Yes Type: coffee Number of servings: 5 ROS ROS ED Constitutional Constitutional ED: Denies chills or fever(s) Eyes Eyes: Denies change in vision or diplopia ENT ENT ED: Denies rhinorrhea or sore throat Cardiovascular Cardiovascular: Reports as per HPI, chest pain and palpitations; Denies pounding heartbeat, racing heartbeat, rapid heart rate, syncope or vomiting Respiratory/Chest Respiratory/Chest: Reports as per HPI, chest congestion, cough, dyspnea, dyspnea on exertion and wheezing Gastrointestinal Gastrointestinal: Denies abdominal pain, diarrhea, nausea or vomiting Genitourinary Genitourinary ED: Denies dysuria or hematuria Musculoskeletal Musculoskeletal: Denies back pain or neck pain Integumentary Denies abscess or rash Neurologic Neurologic: Denies headache(s), paresthesias or weakness Psychiatric Psychiatric: Denies anxiety or suicidal thoughts EXAM Physical Exam Const Vital Signs: 10/04/20 21:03 10/04/20 21:37 10/04/20 21:38 Temperature 97.6 F L Temperature Source Temporal Pulse Rate 91 83 Respiratory Rate 16 24 H Respiratory Pattern Blood Pressure 155/100 H 172/70 H Blood Pressure Mean 118 104 Pulse Ox 98 98 Oxygen Delivery Method Room Air Room Air Room Air 10/04/20 22:45 10/04/20 23:15 Temperature Temperature Source Pulse Rate 77 83 Respiratory Rate 18 16 Respiratory Pattern Normal Blood Pressure 148/59 H Blood Pressure Mean 88 Pulse Ox 94 95 Oxygen Delivery Method Room Air Room Air Positive well nourished, well developed and obese Constitutional Narrative: No distress. Speaking full sentences. General Appearance ED: well developed and NAD Nutritional Appearance: obese HEENT Reports moist mucous membranes normocephalic and atraumatic Eyes PERRL and EOMs intact bilaterally Neck full ROM and supple Resp normal respiratory effort Auscultation: wheezes expiratory wheezes and throughout; Negative for crackles, rales or rhonchi Cardio regular rate, regular rhythm and no murmurs GI non-tender and non-distended Auscultation: normoactive bowel sounds Palpation: soft Back/Spine no CVA tenderness General Back: other FROM Extremity normal to inspection General Extremety ED: Yes edema; Negative for pulses abnormal or tenderness General Extremity: edema bilateral lower extremity Details: trace; Negative for pulses abnormal Neuro oriented x3, CN's II-XII intact bilaterally and no sensory deficits noted Sensorium / Orientation: awake and alert Motor Exam: strength 5/5 throughout Skin no rashes or lesions noted and no wounds Heart Score History: Slightly/Non-Suspicious ECG: Normal Age: >/= 65 years Risk Factors: >/= 3 Risk Factors or History of CAD Troponin: </= Normal Limit Score: 4 MDM MDM MDM Narrative Medical decision making narrative: I think his symptoms are likely pulmonary in etiology and less likely cardiac. The work-up is confirming the suspicion with normal EKG and troponin after having over 24 hours worth of discomfort. I do not think she needs to be admitted for this at this time given that. She was given a duo nebulizer treatment. She did have improvement, she was given another albuterol as well. She was offered more but declines and prefers to go home. I advised following up with her range scientist, she is comfortable with that plan and has nebulizer treatments at home which we discussed using. Lab Data Attestation: I reviewed the patient's lab results. Labs: Laboratory Results - last 24 hr 10/04/20 10/04/20 21:43 21:43 WBC 12.9 H RBC 4.58 Hgb 14.0 Hct 43.6 MCV 95.2 MCH 30.6 MCHC 32.1 RDW Std Deviation 50.3 H RDW Coeff of Penny 14.5 Plt Count 310 MPV 11.2 Immature Gran % (Auto) 0.800 Neut % (Auto) 67.7 Lymph % (Auto) 22.2 [place] % (Auto) 6.7 Eos % (Auto) 2.0 Baso % (Auto) 0.6 Absolute Neuts (auto) 8.7 H Absolute Lymphs (auto) 2.86 Nucleated RBC % 0 Sodium 140 Potassium 3.9 Chloride 106 Carbon Dioxide 29.0 Anion Gap 5 BUN 21 H Creatinine 0.70 Estim Creat Clear Calc 38.14 Est GFR (MDRD) Af Amer 107 Est GFR (MDRD) Non-Af 88 BUN/Creatinine Ratio 30.0 H Glucose 137 H Calcium 8.4 L Troponin I High Sens 9.5 Radiography Chest X-Ray - ED: 1 View, Read by ED Physician and No Acute Disease Diagnostic Testing: Radiology Impression Chest X-Ray 10/04/20 22:00 IMPRESSION: All increased interstitial markings lung bases likely representing atelectasis. Electronically Signed: Jesse Harden DO at 22:49 EDT Tel , Service support , EKG Initial EKG: Attestation: I personally reviewed and interpreted this EKG as follows: Interpretation: Sinus Rhythm and No Acute Injury Pattern Comments: normal EKG Discharge Plan Triage Chief Complaint: Chest Pain ED Provider: Coy Syed Dx/Rx/DC Orders Clinical Impression: Chest pain, unspecified, Chronic wheezy bronchitis Instructions: Bronchitis Chronic Dc Prescriptions: No Action insulin glargine 100 UNITS/ML insulin pen 100 units SC QHS RF: 0 oxycodone-acetaminophen 1 TABLET tablet 1 tab PO Q6H RF: 0 gabapentin 400 MG capsule 400 mg PO TID RF: 0 aspirin 81 MG tablet,delayed release (DR/EC) 81 mg PO DAILY RF: 0 metoprolol succinate 25 mg tablet extended release 24 hr 25 mg PO DAILY Qty: 90 RF: 3 Primary Care Provider: Jesse Curran Referrals: Jesse Curran DO [Primary Care Provider] - Jarett Hurley MD [STAFF PHYSICIAN] - 3-5 Days Disposition Disposition: Home, Self Care
[2020-10-04] MEDS: Ipratropium/Albuterol Sulfate 3 ML AMPUL.NEB INHALATION (22:44)
[2020-10-04] MEDS: Albuterol 2.5 MG/3 ML VIAL.NEB. INHALATION (22:44)
[2020-10-04 22:45] VITALS: PULSE 77; RESP 18; O2SAT 94
[2020-10-04 23:15] VITALS: BP 148/59; PULSE 83; RESP 16; O2SAT 95
[2020-10-05 00:45] VITALS: BP 153/66
== END 2020-10-05 00:48 | disposition home or self-care (01) ==
PROVIDERS: Emergency Provider Emergency Medicine; PCP Student in an Organized Health Care Education/Training Program
DX: R07.9 Chest pain, unspecified (principal); J42 Unspecified chronic bronchitis; E11.9 Type 2 diabetes mellitus without complications; E66.9 Obesity, unspecified; E78.00 Pure hypercholesterolemia, unspecified; M19.90 Unspecified osteoarthritis, unspecified site; F17.210 Nicotine dependence, cigarettes, uncomplicated; Z79.52 Long term (current) use of systemic steroids; Z79.4 Long term (current) use of insulin; Z79.899 Other long term (current) drug therapy
CPT/HCPCS: 71045; 80048; 84484; 85025; 93005; 94640; 99284; A4216

== ENCOUNTER → 2020-11-02 12:11 | Outpatient (CLI) | payer MEDICARE, SELFPAY ==
[2020-11-02 13:03] LABS: BUN 11 mg/dL (7-18); BUN/Creat Ratio 16.3 RATIO (10-20); Calcium,Total 8.9 mg/dL (8.5-10.1); Chloride 102 mmol/L (98-107); Creatinine, Serum 0.67 mg/dL (0.55-1.02); EST Glomerular Filtration Rate 92 mL/min (>60); Est Glom Filt Rate - Afr Amer 112 mL/min (>60); Glucose 157 mg/dL (74-106); Phosphorus 4.1 mg/dL (2.5-4.9); Potassium 4.2 mmol/L (3.5-5.1); Sodium Level 137 mmol/L (136-145)
== END ==
PROVIDERS: PCP Student in an Organized Health Care Education/Training Program; Visit Provider Student in an Organized Health Care Education/Training Program
DX: M79.89 Other specified soft tissue disorders (principal)
CPT/HCPCS: 36415; 80069

== ENCOUNTER 2021-04-26 12:59 | Emergency (ER) | payer MEDICARE, SELFPAY ==
[2021-04-26 13:00] VITALS: BP 128/99; PULSE 89; RESP 16; TEMP 36.2; O2SAT 94; BMI 48.2
--- NOTE | 2021-04-26 13:28 | EDS_ITS ---
HPI History of Present Illness Chief Complaint: Back Informant: patient Onset/Context/Timing Onset: Weeks (1) Timing: Continuous Quality: Sharp Location: Lumbar, Buttock and Right Leg Worsened by: improves with Movement Relieved by: Nothing Associated Symptoms Associated Symptoms: Radiation to Right Leg; Negative for Numbness, Tingling, Radiation to Left Leg, Fever, Abdominal Pain, Dysuria, Unable to Ambulate, Unable to Transfer, Urinary Retention, Urinary Incontinence, Constipation and Fecal Incontinence Narrative Narrative: Patient presents with sciatic nerve pain that has been getting prog ressively worse over the past week. Patient states she saw her doctor last week and he pulled on her right leg. Patient states she felt a pop. Patient states her pain has gotten worse since that time. Patient describes her pain is sharp and stabbing. Patient states her pain is worse with any ambulation. Patient denies any radiation into her abdomen. Patient denies any paresthesias or weakness. Patient denies any bowel or bladder changes. Patient denies any saddle anesthesia. [facility] Medical History Diabetes mellitus type 2 in obese Hypercholesteremia Obstructive sleep apnea Osteoarthritis Palpitations Paroxysmal atrial fibrillation Peripheral vascular disease Vertigo Home Medications insulin glargine 100 units SC QHS 03/14/14 [History Last Taken 11/14/19 23:00] oxycodone-acetaminophen 1 tab PO Q6H 04/02/16 [History Last Taken 11/15/19 13:00] gabapentin 400 mg PO TID 11/15/19 [History Last Taken 11/15/19 12:00] metoprolol succinate 25 mg tablet,extended release 24 hr 25 mg PO DAILY #90 tab 07/23/20 [Rx Last Taken Unknown] aspirin 81 mg tablet,delayed release 81 mg PO DAILY #90 tab 10/25/20 [Rx Last Taken Unknown] Allergy/AdvReac Type Severity Reaction Status Date / Time ampicillin Allergy Hives Verified 04/26/21 12:59 codeine Allergy Hives Verified 04/26/21 12:59 meperidine HCl [From Demerol] Allergy Hives Verified 04/26/21 12:59 Penicillins [PCN] Allergy Hives Verified 04/26/21 12:59 propoxyphene napsylate Allergy Hives Verified 04/26/21 12:59 [From Darvocet-N] Family History Mother Heart disease Brother Heart disease Grandfather CVA (cerebral vascular accident) Grandmother Myocardial infarction Surgical History History of appendectomy History of cardiac catheterization History of hysterectomy History of knee replacement History of laparoscopic cholecystectomy (~11/2019) History of lumpectomy of both breasts History of tubal ligation Social History Smoking Status: Current every day smoker tobacco type: cigarettes alcohol intake: never substance use type: does not use caffeine: Yes Type: coffee Number of servings: 5 ROS ROS ED Constitutional Constitutional ED: Denies chills or fever(s) Eyes Eyes: Denies blurry vision or change in vision ENT ENT ED: Denies rhinorrhea or sore throat Cardiovascular Cardiovascular: Denies chest pain or palpitations Respiratory/Chest Respiratory/Chest: Reports cough; Denies dyspnea Gastrointestinal Gastrointestinal: Denies nausea or vomiting Genitourinary Genitourinary ED: Denies dysuria or hematuria Musculoskeletal Musculoskeletal: Reports back pain; Denies neck pain Integumentary Reports rash; Denies abscess Neurologic Neurologic: Denies headache(s) or weakness Allergic/Immunologic Allergic/Immunologic ED: Denies mouth swelling or urticaria EXAM Physical Exam Const Vital Signs: 04/26/21 13:00 Temperature 97.1 F L Temperature Source Temporal Pulse Rate 89 Respiratory Rate 16 Blood Pressure 128/99 H Blood Pressure Mean 108 Pulse Ox 94 Oxygen Delivery Method Room Air Positive well nourished, well developed and obese General Appearance ED: well developed and NAD Nutritional Appearance: obese HEENT Reports moist mucous membranes Neck supple and no JVD Back/Spine Back/Spine Narrative: There is tenderness over the right lumbar paraspinal muscles and over the sciatic notch on the right. There is also tenderness in t he right gluteal area. Strength is 5/5 bilaterally in the lower extremities. There are no sensory deficits noted. Straight leg raises were negative bilaterally. Lumbar Spine / Lower Back: ROM limited and straight leg raise negative bilaterally Extremity normal to inspection Extremity Narrative: There is some mild tenderness over the anterior aspect of the right lower leg. There is no bony crepitance or step-off. There is no edema or ecchymosis. General Extremety ED: Yes tenderness Psych mental status grossly normal MDM MDM MDM Narrative Medical decision making narrative: Injection of morphine here. X-rays of the tibia and fibula were obtained. There are 2 views. On my interpretation, there are no acute fractures noted. There is no dislocation noted. There is no soft tissue swelling. Radiologist also interpreted the x-rays and agrees. X-rays of the lumbar spine were obtained. There are 3 views. On my interpretation, there is no acute fracture or spondylolisthesis. There is some mild degenerative changes noted. Radiologist also interpreted the x-rays and agrees. Patient is feeling better on reevaluation. Patient was instructed to continue her pain medications as previously prescribed. Patient was instructed use ice to the area. Patient was instructed to follow-up with her primary care physician in 5 to 7 days. Patient understood and was agreeable with the plan. All questions were answered. Radiography X-Ray: LS SPine, Read by ED Physician, Read by Radiologist, No Fracture, Normal Bony Alignment and DJD Diagnostic Testing: Clinical Impression(s) from Imaging Studies Tibia/Fibula X-Ray 04/26/21 14:00 IMPRESSION: No acute osseous finding. Total knee arthroplasty without evidence of hardware failure. at 1423 Reported and signed by: Monster Sneed MD Electronically Signed: Monster Sneed MD at 14:22 EST , Lumbar Spine X-Ray 04/26/21 14:05 IMPRESSION: Moderate lumbar spondylosis. No evidence of lumbar spinal fracture or spondylolisthesis. at 1420 Reported and signed by: Monster Sneed MD Electronically Signed: Monster Sneed MD at 14:19 EST , Discharge Plan Triage Chief Complaint: Back ED Provider: Mejia Cohn Dx/Rx/DC Orders Clinical Impression: Acute exacerbation of chronic low back pain Instructions: ED Sciatica Prescriptions: No Action insulin glargine 100 UNITS/ML insulin pen 100 units SC QHS RF: 0 oxycodone-acetaminophen 1 TABLET tablet 1 tab PO Q6H RF: 0 gabapentin 400 MG capsule 400 mg PO TID RF: 0 metoprolol succinate 25 mg tablet extended release 24 hr 25 mg PO DAILY Qty: 90 RF: 3 aspirin 81 mg tablet,delayed release (DR/EC) 81 mg PO DAILY Qty: 90 RF: 3 Primary Care Provider: Jesse Curran Referrals: Jesse Curran DO [Primary Care Provider] - 5-7 Days Disposition Disposition: Home, Self Care
[2021-04-26] MEDS: Morphine 4 MG/ML Syringe IM (13:37)
--- NOTE | 2021-04-26 14:00 | RAD_ITS ---
HISTORY: Injury/Pain COMPARISON: None FINDINGS: # of images incl. paperwork: 2 XR Tibia/Fibula 2 Views: Frontal and lateral tibia-fibula SOFT TISSUES: Diffuse soft tissue prominence about the lower extremity. No radiodense soft tissue foreign body. Anterior garrido peripheral venous calcifications. OSSEOUS: Total knee arthroplasty with patellar resurfacing. No evidence of hardware failure. No dislocation. No fracture. No aggressive osseous lesion. BONE MINERALIZATION: Unremarkable. RAD/Tibia & Fibula 2 Views IMPRESSION: No acute osseous finding. Total knee arthroplasty without evidence of hardware failure. at 1423 Reported and signed by: Monster Sneed MD Electronically Signed: Monster Sneed MD at 14:22 EST Reading Location ID and State: [facility] / [place] Tel , Service support ,
--- NOTE | 2021-04-26 14:05 | RAD_ITS ---
HISTORY: Injury/Pain EXAMINATION/TECHNIQUE: XR Spine Lumbar 2 or 3 Views: Three-view lumbar spine COMPARISON: None FINDINGS: VERTEBRAE: 6 [id number] lumbar type vertebra. No fracture or acute compression deformity. Preservation of the normal lumbar lordosis. Bulky bridging osteophytes in the upper lumbar spine. Diffuse facet arthropathy most prominent at L5-S1. DISCS: Mild diffuse disc height loss with endplate osteophyte formation.. INCLUDED ABDOMEN: Included bowel gas pattern is non-obstructive. Diffuse aortic atherosclerosis. RAD/Lumbar Spine 2 or 3 Views IMPRESSION: Moderate lumbar spondylosis. No evidence of lumbar spinal fracture or spondylolisthesis. at 1420 Reported and signed by: Monster Sneed MD Electronically Signed: Monster Sneed MD at 14:19 EST ,
[2021-04-26 15:06] VITALS: BP 154/74; PULSE 87; RESP 16; O2SAT 95
== END 2021-04-26 15:34 | disposition home or self-care (01) ==
PROVIDERS: Emergency Provider Emergency Medicine; PCP Student in an Organized Health Care Education/Training Program; Visit Provider Emergency Medicine
DX: M54.50 Low back pain, unspecified (principal); E11.51 Type 2 diabetes mellitus with diabetic peripheral angiopathy without gangrene; E11.69 Type 2 diabetes mellitus with other specified complication; I48.0 Paroxysmal atrial fibrillation; Z68.42 Body mass index [BMI] 45.0-49.9, adult; E11.9 Type 2 diabetes mellitus without complications; Z79.4 Long term (current) use of insulin; E78.00 Pure hypercholesterolemia, unspecified; G89.29 Other chronic pain; E66.9 Obesity, unspecified; G47.33 Obstructive sleep apnea (adult) (pediatric); M19.90 Unspecified osteoarthritis, unspecified site; Z79.82 Long term (current) use of aspirin; Z79.899 Other long term (current) drug therapy; F17.210 Nicotine dependence, cigarettes, uncomplicated
CPT/HCPCS: 72100; 73590; 96372; 99282; A4216

== ENCOUNTER 2021-05-23 20:39 | Emergency (ER) | payer MEDICARE, SELFPAY ==
[2021-05-23 20:40] VITALS: BP 128/79; PULSE 90; RESP 18; TEMP 36.7; O2SAT 94; BMI 46.3
--- NOTE | 2021-05-23 20:58 | EKG12_ITS ---
Test Reason : DIZZY Blood Pressure : / mmHG Vent. Rate : 075 BPM Atrial Rate : 075 BPM P-R Int : 158 ms QRS Dur : 096 ms QT Int : 402 ms P-R-T Axes : 066 -29 026 degrees QTc Int : 448 ms Normal sinus rhythm poor r wave progression anterio MS, age undetermined, cannot be excluded Left wave axis Confirmed by EMILY BRAGG, CLEMENCIA ([id number]), editor in chief newspaper JASVIR NESBITT ([id number]) on 05/27/2021 11:26:43 AM Referred By: DEMETRICE Confirmed By:CLEMENCIA DIAZ MD
--- NOTE | 2021-05-23 20:59 | EX.ED.DYSGE1 ---
HPI History of Present Illness Chief Complaint: Dizziness Narrative Narrative: 70-year-old female with past medical history of diabetes presents with vertigo for the last 4 days. She also states that her right-sided sciatica is acting up. She has had vertigo in the past but does not take medications, the last episode being a few years ago. She states her symptoms began 4 days ago and were subsiding as she tried not to bend over that much. However, within the last 2 days it has become severe that it is even at rest when she is lying flat on her back. She could not get up because of her sciatica. She states she is nauseated and vomited a little. States she has a slight headache. This is typical of her previous vertigo symptoms. She denies other symptoms. No dysuria or hematuria. She states that the last time this happened she had to be hospitalized overnight because of her previous vertigo. [facility] Medical History Diabetes mellitus type 2 in obese Hypercholesteremia Obstructive sleep apnea Osteoarthritis Palpitations Paroxysmal atrial fibrillation Peripheral vascular disease Vertigo Home Medications insulin glargine 100 units SC QHS 03/14/14 [History Last Taken 11/14/19 23:00] oxycodone-acetaminophen 1 tab PO Q6H 04/02/16 [History Last Taken 11/15/19 13:00] gabapentin 400 mg PO TID 11/15/19 [History Last Taken 11/15/19 12:00] metoprolol succinate 25 mg tablet,extended release 24 hr 25 mg PO DAILY #90 tab 07/23/20 [Rx Last Taken Unknown] aspirin 81 mg tablet,delayed release 81 mg PO DAILY #90 tab 10/25/20 [Rx Last Taken Unknown] empagliflozin [Jardiance] 25 mg DAILY 05/23/21 [History Last Taken Unknown] furosemide 40 mg DAILY 05/23/21 [History Last Taken Unknown] meclizine 25 mg PO TID #20 tab 05/23/21 [Rx Last Taken Unknown] metformin 500 mg PO BID 05/23/21 [History Last Taken Unknown] ropinirole 1 mg QHS 05/23/21 [History Last Taken Unknown] Allergy/AdvReac Type Severity Reaction Status Date / Time ampicillin Allergy Hives Verified 05/23/21 20:44 codeine Allergy Hives Verified 05/23/21 20:44 meperidine HCl [From Demerol] Allergy Hives Verified 05/23/21 20:44 Penicillins [PCN] Allergy Hives Verified 05/23/21 20:44 propoxyphene napsylate Allergy Hives Verified 05/23/21 20:44 [From Darvocet-N] Family History Mother Heart disease Brother Heart disease Grandfather CVA (cerebral vascular accident) Grandmother Myocardial infarction Surgical History History of appendectomy History of cardiac catheterization History of hysterectomy History of knee replacement History of laparoscopic cholecystectomy (~11/2019) History of lumpectomy of both breasts History of tubal ligation Social History Smoking Status: Current every day smoker tobacco type: cigarettes alcohol intake: never substance use type: does not use caffeine: Yes Type: coffee Number of servings: 5 ROS ROS ED ROS Narrative Constitutional: No fever, no chills. HEENT: No sore throat. No neck pain. No loss of vision. No rhinorrhea. Cardiovascular: No chest pain. No palpitations. No pedal edema. Respiratory: No cough, no shortness of breath. Abdominal: No abdominal pain. No nausea. No vomiting. Genitourinary: No dysuria. No hematuria. Musculoskeletal: No myalgias. No arthralgias. Neurologic: Mild headaches. Positive dizziness/vertigo. No lightheadedness. Skin: No rash. No change in color. Psychiatric: No depression. No anxiety. EXAM Physical Exam Narrative Exam Narrative: Afebrile. Vital signs noted. HEENT: Normocephalic. Atraumatic. PERRL, EOMI. Neck soft and supple. No point tenderness or step off. Cardiovascular: Regular rate and rhythm. No murmurs, rubs, or gallops appreciated. Respiratory: No tachypnea. Lungs clear to auscultation bilaterally. Gastrointestinal: Abdomen soft, nontender, with normoactive bowel sounds. No rebound or guarding. Neurological: Awake. Alert. Oriented x3. Nonfocal, nonlateralizing. Courtney functioning normal with [id number]. Skin: No rash. Normal color. No pallor. Musculoskeletal: No pedal edema. Full range of motion extremities. Const Vital Signs: 05/23/21 20:40 05/23/21 22:08 05/23/21 23:04 Temperature 98.1 F Temperature Source Oral Pulse Rate 90 75 68 Respiratory Rate 18 18 Blood Pressure 128/79 H 135/57 H Blood Pressure Mean 95 83 Pulse Ox 94 96 Oxygen Delivery Method Room Air Room Air MDM MDM MDM Narrative Medical decision making narrative: As she has not had this problem in a few years, I will obtain CT imaging of her brain. Since she is diabetic I will check her electrolytes. She will be bolused normal saline. I will consider meclizine after normal CT of the brain. EKG will also be obtained. EKG demonstrates normal sinus rhythm at 75 bpm without ectopy or acute ST changes, no STEMI. She has a normal CBC with a white count of 7.4 and hemoglobin slightly hemoconcentrated at 15.1, normal platelets of 291. High-sensitivity troponin negative at 8. CT of the brain shows no acute intracranial finding. BMP will also be checked. As she has a negative CT of the brain, she will be given 1 meclizine 25 mg tablet by mouth then reevaluated. Her BMP shows a chloride of 108 but normal sodium of 139. For her sciatic pain, she was administered Toradol 30 mg intravenously. She will be ambulating and I will write her prescription for 20 tablets of meclizine to take up to 3 times a day for her vertigo. She was able to ambulate to the bathroom. At this point in time, I feel she can be discharged safely home with follow-up. Return instructions were reviewed. Disposition is discharged home in stable condition. Lab Data Attestation: I reviewed the patient's lab results. Labs: Laboratory Results - last 24 hr 05/23/21 05/23/21 05/23/21 21:10 21:10 21:10 WBC 7.4 RBC 4.88 Hgb 15.1 H Hct 46.3 MCV 94.9 MCH 30.9 MCHC 32.6 RDW Std Deviation 47.0 H RDW Coeff of Penny 13.2 Plt Count 291 MPV 11.8 Immature Gran % (Auto) 0.500 Neut % (Auto) 64.7 Lymph % (Auto) 24.8 Foster % (Auto) 8.4 Eos % (Auto) 1.2 Baso % (Auto) 0.4 Absolute Neuts (auto) 4.8 Absolute Lymphs (auto) 1.83 Nucleated RBC % 0 Sodium 139 Potassium 3.9 Chloride 108 H Carbon Dioxide 26.0 Anion Gap 5 BUN 8 Creatinine 1.04 H Estim Creat Clear Calc 36.67 Est GFR (MDRD) Af Amer 67 Est GFR (MDRD) Non-Af 56 L BUN/Creatinine Ratio 7.7 L Glucose 170 H Calcium 8.9 Troponin I High Sens 8 Radiography Diagnostic Testing: Clinical Impression(s) from Imaging Studies Brain CT 05/23/21 21:22 IMPRESSION: No acute intracranial finding. MRI may be obtained if clinically indicated. Electronically Signed: Corey Agarwal MD at 21:51 EDT , Discharge Plan Triage Chief Complaint: Dizziness ED Provider: Hunter Ryan Dx/Rx/DC Orders Clinical Impression: Vertigo, Sciatica Instructions: ED Sciatica, ED Vertigo, Unspecified Prescriptions: New meclizine 25 mg tablet 25 mg PO TID Qty: 20 RF: 0 No Action insulin glargine 100 UNITS/ML insulin pen 100 units SC QHS RF: 0 oxycodone-acetaminophen 1 TABLET tablet 1 tab PO Q6H RF: 0 gabapentin 400 MG capsule 400 mg PO TID RF: 0 furosemide 40 mg tablet 40 mg DAILY RF: 0 ropinirole 0.5 mg tablet 1 mg QHS RF: 0 metformin 500 mg tablet extended release 24 hr 500 mg PO BID RF: 0 Jardiance 25 mg tablet 25 mg DAILY RF: 0 metoprolol succinate 25 mg tablet extended release 24 hr 25 mg PO DAILY Qty: 90 RF: 3 aspirin 81 mg tablet,delayed release (DR/EC) 81 mg PO DAILY Qty: 90 RF: 3 Primary Care Provider: Jesse Curran Referrals: Jesse Curran DO [Primary Care Provider] - 3-5 Days if not improving Disposition Disposition: Home, Self Care
[2021-05-23] MEDS: 0.9% Normal Saline 1,000 ML 1000 ML IV (21:10)
--- NOTE | 2021-05-23 21:22 | CT_ITS ---
STUDY: CT BRAIN WITHOUT CONTRAST REASON FOR EXAM: Female, 70 years old. Dizziness RADIATION DOSAGE (If Supplied By Facility): CTDIvol = ( 44.99 ) mGy, DLP = ( 829.85 ) mGycm TECHNIQUE: Transaxial CT imaging of the brain was performed without administration of intravenous contrast material. Individualized dose optimization techniques were used for this CT. COMPARISON: No relevant priors. FINDINGS: There is no intra-/extra-axial fluid collection, mass effect, or midline shift. The delvalle/white matter junction is preserved. Hypoattenuation of periventricular and subcortical white matter suggestive of chronic small vessel ischemic disease. Mild diffuse parenchymal volume loss is noted. There is vascular calcification. The basal cisterns are patent. Bilateral paranasal sinuses and mastoid air cells are clear. The calvarium is intact. CT/Brain/Head without Contrast IMPRESSION: No acute intracranial finding. MRI may be obtained if clinically indicated. Electronically Signed: Corey Agarwal MD at 21:51 EDT ,
[2021-05-23 21:36] LABS: Absolute Lymphocyte Count 1.83 X10^3/uL (0.83-4.51); Absolute Neutrophil Count 4.8 X10^3/uL (2.0-7.7); Basophil# 0.03 X10^3/uL; Basophil% 0.4 % (0-1); Eosinophil# 0.09 X10^3/uL; Eosinophils% 1.2 % (0-5); Hematocrit 46.3 % (37-47); Hemoglobin 15.1 g/dL (12.0-15.0); Lymphocyte # 1.83 X10^3/ul (0.83-4.51); Lymphocyte % 24.8 % (19-41); Mean Corp Hgb Conc 32.6 g/dL (32-36); Mean Corpuscular Hgb 30.9 pg (27.0-32.0); Mean Corpuscular Volume 94.9 fL (81-99); Mean Platelet Vol. 11.8 fl (6.2-12.0); Monocyte# 0.62 X10^3/uL; Monocyte% 8.4 % (0-10); NRBC Flagged by Analyzer 0 % (0-5); Neutrophil # 4.76 X10^3/uL (2.7-7.7); Neutrophil % 64.7 % (47-70); Platelet Count 291 K/mm3 (150-450); RBC Distribution Width CV 13.2 % (11.6-14.6); Red Blood Count 4.88 M/mm3 (4.2-5.4); White Blood Count 7.4 K/mm3 (4.4-11.0)
[2021-05-23 21:57] LABS: Troponin-I HS 8 pg/mL (3.0-54.0)
[2021-05-23 22:08] VITALS: PULSE 75
[2021-05-23 22:29] LABS: Anion Gap 5 (5-15); BUN 8 mg/dL (7-18); BUN/Creat Ratio 7.7 RATIO (10-20); Calcium,Total 8.9 mg/dL (8.5-10.1); Chloride 108 mmol/L (98-107); Creatinine, Serum 1.04 mg/dL (0.55-1.02); EST Glomerular Filtration Rate 56 mL/min (>60); Est Glom Filt Rate - Afr Amer 67 mL/min (>60); Estimated Creatinine Clearance 36.67 ml/min; Glucose 170 mg/dL (74-106); Potassium 3.9 mmol/L (3.5-5.1); Sodium Level 139 mmol/L (136-145)
[2021-05-23] MEDS: Meclizine HCl 25 MG Tablet PO (22:46)
[2021-05-23] MEDS: Ketorolac 30 MG/ML Syringe IV (23:00)
[2021-05-23 23:04] VITALS: BP 135/57; PULSE 68; RESP 18; O2SAT 96
== END 2021-05-23 23:32 | disposition home or self-care (01) ==
PROVIDERS: Emergency Provider Emergency Medicine; PCP Student in an Organized Health Care Education/Training Program; Visit Provider Emergency Medicine
DX: R42 Dizziness and giddiness (principal); E11.51 Type 2 diabetes mellitus with diabetic peripheral angiopathy without gangrene; I48.0 Paroxysmal atrial fibrillation; Z79.4 Long term (current) use of insulin; E78.00 Pure hypercholesterolemia, unspecified; M54.30 Sciatica, unspecified side; E66.9 Obesity, unspecified; G47.33 Obstructive sleep apnea (adult) (pediatric); M19.90 Unspecified osteoarthritis, unspecified site; Z79.899 Other long term (current) drug therapy; Z79.82 Long term (current) use of aspirin; F17.210 Nicotine dependence, cigarettes, uncomplicated
CPT/HCPCS: 70450; 80048; 84484; 85025; 93005; 96361; 96374; 99285; J7030; A4216

== ENCOUNTER → 2021-11-06 | Outpatient (CLI) | payer MEDICARE, SELFPAY ==
--- NOTE | 2021-11-06 13:32 | RAD_ITS ---
STUDY: XR Shoulder Min 2 Views REASON FOR EXAM: Female, 71 years old. LEFT SHOULDER PAIN TECHNIQUE: XR Shoulder Min 2 Views LEFT COMPARISON: None. FINDINGS: Normal glenohumeral articulation. There is degenerative arthrosis of the acromioclavicular joint without inferior osseous spur formation. Normal acromion. Comminuted impaction fracture of the lateral humeral head. Small fracture fragment near the joint space. The soft tissue structures are unremarkable. Normal visualized pulmonary apex. RAD/Shoulder min 2 Views IMPRESSION: Comminuted impaction fracture of the lateral humeral head. Small fracture fragment near the joint space. Electronically Signed: Pritesh Benson MD at 17:01 EDT ,
== END | disposition home or self-care (01) ==
PROVIDERS: PCP Student in an Organized Health Care Education/Training Program; Visit Provider Student in an Organized Health Care Education/Training Program
DX: M25.512 Pain in left shoulder (principal)
CPT/HCPCS: 73030

== ENCOUNTER → 2022-03-03 | Outpatient (CLI) | payer MEDICARE, SELFPAY ==
[2022-03-03 16:35] LABS: Hematocrit 42.3 % (37-47); Hemoglobin 13.5 g/dL (12.0-15.0); Mean Corp Hgb Conc 31.9 g/dL (32-36); Mean Corpuscular Hgb 30.8 pg (27.0-32.0); Mean Corpuscular Volume 96.4 fL (81-99); Mean Platelet Vol. 11.7 fl (6.2-12.0); Platelet Count 225 K/mm3 (150-450); RBC Distribution Width CV 14.3 % (11.6-14.6); RBC Distribution Width SD 51.1 fl (35.1-43.9); Red Blood Count 4.39 M/mm3 (4.2-5.4); White Blood Count 6.8 K/mm3 (4.4-11.0)
[2022-03-03 16:39] LABS: Color, Urine Yellow (Yellow); Glucose, Dipstick Normal (Normal); Ketone-Dipstick Negative (Negative); Leukocyte Esterase-Dipstick Negative /ul (Negative); Nitrite-Dipstick Negative (Negative); Occult Blood-Urine Negative /ul (Negative); Protein-Dipstick Negative (Negative); Urine Bilirubin Dipstick Negative (Negative); Urine Clarity Clear (Clear); Urine Urobilinogen Normal (Normal)
[2022-03-03 17:05] LABS: ALB/GLOB Ratio 1.1 RATIO (0.9-2.4); AST(SGOT) 12 U/L (15-37); Alanine Aminotransfer ALT/SGPT 20 U/L (13-56); Albumin, Serum 3.3 g/dL (3.2-5.0); Alkaline Phosphatase 68 U/L (45-117); Anion Gap 7 (5-15); BUN 25 mg/dL (7-18); Calcium,Total 8.8 mg/dL (8.5-10.1); Chloride 103 mmol/L (98-107); Cholesterol 170 mg/dL (200); Creatinine, Serum 0.74 mg/dL (0.55-1.02); EST Glomerular Filtration Rate 83 mL/min (>60); Est Glom Filt Rate - Afr Amer 100 mL/min (>60); Glucose 153 mg/dL (74-106); High Density Lipoprotein 44 mg/dL; Microalbumin,Random Urine 26.7 mg/L (NO RANGE EST.); Potassium 4.4 mmol/L (3.5-5.1); Protein, Total 6.3 g/dL (6.4-8.2); Sodium Level 138 mmol/L (136-145); Thyroid Stim Hormone (TSH) 1.74 uIU/mL (0.358-3.74); Triglycerides 128 mg/dL; Very Low Density Lipoprotein 26 mg/dL (5-40)
[2022-03-03 17:09] LABS: Hemoglobin A1c 6.6 % (3.8-5.6)
== END | disposition home or self-care (01) ==
LOC: LAB.FUTURE 14:45 → LAB 15:21
PROVIDERS: PCP Student in an Organized Health Care Education/Training Program; Referring Provider Student in an Organized Health Care Education/Training Program; Visit Provider Student in an Organized Health Care Education/Training Program
DX: E11.9 Type 2 diabetes mellitus without complications (principal); E03.9 Hypothyroidism, unspecified
CPT/HCPCS: 36415; 80053; 80061; 81002; 82043; 83036; 84439; 84443; 85027

== ENCOUNTER → 2022-04-22 | Outpatient (CLI) | payer MEDICARE, SELFPAY ==
--- NOTE | 2022-04-22 13:19 | CDU_ITS ---
Reason For Study: Ocular Ischemia Rt. Velocities/BP Lt. Velocities/BP Prox CCA 81.5/12.6 cm/sec. Prox CCA 115.6/15.2 cm/sec. Mid CCA 57.9/12.6 cm/sec. Mid CCA 115.6/13.3 cm/sec. Dist CCA 49.4/11.6 cm/sec. Dist CCA 79.1/15.2 cm/sec. Prox ICA 52.9/13.7 cm/sec. Prox ICA 88.2/24.3 cm/sec. Mid ICA 61.4/12.3 cm/sec. Mid ICA 88.2/18.8 cm/sec. Dist ICA 61.4/14.4 cm/sec. Dist ICA 70.0/21.3 cm/sec. Rt. ICA/CCA = 1.1. Lt. ICA/CCA = 0.8. Prox ECA 51.3/13.5 cm/sec. Prox ECA 121.9/12.6 cm/sec. Rt. Vert. 45.0/10.9 cm/sec. Lt. Vert. 52.6/9.0 cm/sec. Right Extracranial There is homogeneous, smooth atherosclerotic plaque noted in the right common carotid artery. There is heterogeneous, irregular atherosclerotic plaque noted in the right internal carotid artery. There is heterogeneous, irregular atherosclerotic plaque noted in the right external carotid artery. Antegrade flow is noted in the right vertebral artery. Left Extracranial There is homogeneous, smooth atherosclerotic plaque noted in the left common carotid artery. There is heterogeneous, irregular atherosclerotic plaque noted in the left internal carotid artery. The atherosclerotic plaque causes acoustic shadowing. There is heterogeneous, irregular atherosclerotic plaque noted in the left external carotid artery. Antegrade flow is noted in the left vertebral artery. Procedure Carotid Duplex [id number]. This is a Carotid Duplex examination using B-mode, color flow and specral Doppler. The study was technically difficult. Exam performed in department. VL/Carotid Duplex Ultrasound Interpretation Summary Mild (<50%) stenosis right extracranial internal carotid. Mild (<50%) stenosis left extracranial internal carotid. Patent and antegrade vertebrals bilaterally. Ordering Physician: Jarett Hurley V Referring Physician: Jesse Curran Performed By: Esteban Maddox RVT
--- NOTE | 2022-04-22 13:21 | CT_ITS ---
STUDY: CT CHEST T ABDOMEN CONTRAST REASON FOR EXAM: Female, 71 years old. COUGH RADIATION DOSAGE (If Supplied By Facility): CTDIvol = ( 27.55 ) mGy, DLP = ( 937.61 ) mGycm TECHNIQUE: Transaxial imaging was performed without the administration of intravenous contrast material. Multiplanar coronal and sagittal images were reformatted. Individualized dose optimization techniques were used for this CT. COMPARISON: Comparison is made with prior study dated 07/11/2020. FINDINGS: CHEST Calcified granulomas in the lateral aspect of the left upper lobe. There is no demonstrated pleural abnormality. There are calcifications of the coronary arteries. There are multiple small lymph nodes within the mediastinum, which are normal in size and morphology most compatible with reactive lymph hyperplasia. Normal hilar regions. Normal unenhanced pulmonary arteries. There is atherosclerotic calcification of the aortic arch with tortuosity and elongation of the aortic arch and descending thoracic aorta. There are multi-level degenerative changes of the thoracic spine. 1.7 cm cyst in the left lobe of the liver. Calcified splenic granulomas. CT/Chest without Contrast IMPRESSION: Calcified granuloma in the lateral aspect of the left upper lobe. Electronically Signed: Jesse Huntley MD at 15:16 EST ,
== END | disposition home or self-care (01) ==
LOC: CVS 13:15
PROVIDERS: PCP Student in an Organized Health Care Education/Training Program; Visit Provider Internal Medicine Pulmonary Disease
DX: H35.82 Retinal ischemia (principal); R05.9 Cough, unspecified
CPT/HCPCS: 71250; 93880

== ENCOUNTER → 2022-07-07 | Outpatient (CLI) | payer MEDICARE, MEDICAID, SELFPAY ==
[2022-07-07 17:21] LABS: Hematocrit 43.9 % (37-47); Hemoglobin 14.2 g/dL (12.0-15.0); Mean Corp Hgb Conc 32.3 g/dL (32-36); Mean Corpuscular Hgb 31.5 pg (27.0-32.0); Mean Corpuscular Volume 97.3 fL (81-99); Mean Platelet Vol. 11.1 fl (6.2-12.0); Platelet Count 263 K/mm3 (150-450); RBC Distribution Width CV 13.5 % (11.6-14.6); RBC Distribution Width SD 48.2 fl (35.1-43.9); Red Blood Count 4.51 M/mm3 (4.2-5.4); White Blood Count 11.8 K/mm3 (4.4-11.0)
[2022-07-07 17:34] LABS: Hemoglobin A1c 6.5 % (3.8-5.6)
[2022-07-07 18:43] LABS: AST(SGOT) 14 U/L (15-37); Alanine Aminotransfer ALT/SGPT 24 U/L (13-56); Albumin, Serum 3.5 g/dL (3.2-5.0); Alkaline Phosphatase 80 U/L (45-117); Anion Gap 6 (5-15); BUN 23 mg/dL (7-18); BUN/Creat Ratio 25.1 RATIO (10-20); Calcium,Total 9.1 mg/dL (8.5-10.1); Chloride 104 mmol/L (98-107); Creatinine, Serum 0.92 mg/dL (0.55-1.02); EST Glomerular Filtration Rate 64 mL/min (>60); Est Glom Filt Rate - Afr Amer 78 mL/min (>60); Globulin 3.5 g/dL (2.2-4.2); Glucose 161 mg/dL (74-106); Potassium 4.6 mmol/L (3.5-5.1); Sodium Level 138 mmol/L (136-145); T4 Free Direct 0.96 ng/dL (0.76-1.46); Thyroid Stim Hormone (TSH) 2.44 uIU/mL (0.358-3.74)
[2022-07-07 18:50] LABS: BNP,B-Type NATRIURETIC PEPTIDE 76.7 pg/mL (0-100)
== END | disposition home or self-care (01) ==
PROVIDERS: PCP Student in an Organized Health Care Education/Training Program; Referring Provider Student in an Organized Health Care Education/Training Program; Visit Provider Student in an Organized Health Care Education/Training Program
DX: I50.30 Unspecified diastolic (congestive) heart failure (principal); E11.69 Type 2 diabetes mellitus with other specified complication; R53.83 Other fatigue; M79.89 Other specified soft tissue disorders
CPT/HCPCS: 80053; 83036; 83880; 84439; 84443; 85027

== ENCOUNTER 2022-10-20 19:22 | Emergency (ER) | payer MEDICARE, MEDICAID, SELFPAY ==
[2022-10-20 19:23] VITALS: BP 140/111; PULSE 111; RESP 18; TEMP 36.6; O2SAT 98
--- NOTE | 2022-10-20 20:17 | US_ITS ---
STUDY: VENOUS DOPPLER ULTRASOUND - LEFT LOWER EXTREMITY REASON FOR EXAM: Female, 72 years old. LT LEG PAIN TECHNIQUE: Ultrasound evaluation of the deep vein system to include hawthorne-scale imaging and compression was performed. Hawthorne-scale imaging and Doppler sonographic evaluation, including duplex spectral analysis and qualitative color flow sonography, was performed. COMPARISON: None. FINDINGS: Common Femoral Vein: Normal compression, spontaneity and augmentation. Normal color Doppler. Common Femoral Vein/Greater Saphenous Junction: Normal compression, spontaneity and augmentation. Normal color Doppler. Deep Femoral Vein: Normal compression, spontaneity and augmentation. Normal color Doppler. Femoral Proximal: Normal compression, spontaneity and augmentation. Normal color Doppler. Femoral Middle: Normal compression, spontaneity and augmentation. Normal color Doppler. Femoral Distal: Normal compression, spontaneity and augmentation. Normal color Doppler. Popliteal Vein: Normal compression, spontaneity and augmentation. Normal color Doppler. Posterior Tibial Vein: Normal compression, spontaneity and augmentation. Normal color Doppler. Peroneal Vein: Normal compression, spontaneity and augmentation. Normal color Doppler. Thrombosed superficial vein in the calf. US/Venous Duplex Imag/Limited/Uni IMPRESSION: No deep venous thrombosis. Electronically Signed: Luis Cedeno MD at 21:30 EDT ,
--- NOTE | 2022-10-20 20:40 | EKG12_ITS ---
Test Reason : DYSRHYTHMIA Blood Pressure : / mmHG Vent. Rate : 094 BPM Atrial Rate : 094 BPM P-R Int : 170 ms QRS Dur : 094 ms QT Int : 364 ms P-R-T Axes : 069 -52 056 degrees QTc Int : 455 ms Normal sinus rhythm Left anterior fascicular block Cannot rule out Inferior infarct , age undetermined Abnormal ECG Confirmed by CHRISTIAN BRAGG, FIONA ([id number]), index editor JASVIR NESBITT ([id number]) on 11/26/2022 1:22:49 PM Referred By: Confirmed By:JESUS GONZALES MD
--- NOTE | 2022-10-20 20:45 | EX.ED.DYSGE1 ---
HPI History of Present Illness Chief Complaint: General Illness Informant: patient and family Narrative Narrative: 72-year-old female presenting to the emergency room with a multiple of complaints. She states that she has had pain in her bilateral legs for a very long time. She went to see her family doctor yesterday who felt that she may have a blood clot in her left leg scheduled an ultrasound for today but she did not make that appointment. She states that she has had diarrhea for the past 2 days. She notes that her lungs hurt (while pointing to her abdomen). She is concerned that she has blood clots in her lungs. She states that she feels like her feet are tingling. She feels short of breath. Patient is a diabetic type II. No reported fevers. She wears home oxygen at night. [facility] Medical History Diabetes mellitus type 2 in obese Hypercholesteremia Obstructive sleep apnea Osteoarthritis Palpitations Paroxysmal atrial fibrillation Peripheral vascular disease Vertigo Home Medications insulin glargine 100 unit/mL (3 mL) subcutaneous pen 100 units subcut QHS diabetes 03/14/14 [History Last Taken 11/14/19 23:00] oxycodone-acetaminophen 5 mg-325 mg tablet 1 tab PO Q6H pain 04/02/16 [History Last Taken 11/15/19 13:00] gabapentin 400 mg capsule 400 mg PO TID neuropathy 11/15/19 [History Last Taken 11/15/19 12:00] metoprolol succinate 25 mg tablet,extended release 24 hr 25 mg PO DAILY blood pressure #90 tabs 07/23/20 [Rx Last Taken Unknown] aspirin 81 mg tablet,delayed release 81 mg PO DAILY heart #90 tabs 10/25/20 [Rx Last Taken Unknown] empagliflozin 25 mg tablet (Jardiance) 25 mg DAILY 05/23/21 [History Last Taken Unknown] furosemide 40 mg tablet 40 mg DAILY 05/23/21 [History Last Taken Unknown] meclizine 25 mg tablet 25 mg PO TID #20 tabs 05/23/21 [Rx Last Taken Unknown] metformin 500 mg tablet,extended release 24 hr 500 mg PO BID 05/23/21 [History Last Taken Unknown] ropinirole 0.5 mg tablet 1 mg QHS 05/23/21 [History Last Taken Unknown] bupropion HCl 150 mg tablet,12 hr sustained-release 150 mg PO BID 06/06/21 [History Last Taken Unknown] Allergy/AdvReac Type Severity Reaction Status Date / Time ampicillin Allergy Hives Verified 10/20/22 19:25 codeine Allergy Hives Verified 10/20/22 19:25 meperidine HCl [From Demerol] Allergy Hives Verified 10/20/22 19:25 Penicillins [PCN] Allergy Hives Verified 10/20/22 19:25 propoxyphene napsylate Allergy Hives Verified 10/20/22 19:25 [From Darvocet-N] Family History Mother Heart disease Brother Heart disease Grandfather CVA (cerebral vascular accident) Grandmother Myocardial infarction Surgical History History of appendectomy History of cardiac catheterization History of hysterectomy History of knee replacement History of laparoscopic cholecystectomy (~11/2019) History of lumpectomy of both breasts History of tubal ligation Social History Smoking Status: Current every day smoker tobacco type: cigarettes alcohol intake: never substance use type: does not use caffeine: Yes Type: coffee Number of servings: 5 ROS ROS ED Constitutional Constitutional ED: Reports sweats; Denies chills, fever(s) or weight loss Eyes Eyes: Denies change in vision or diplopia ENT ENT ED: Denies ear pain, rhinorrhea or sore throat Cardiovascular Cardiovascular: Reports chest pain; Denies orthopnea, palpitations or racing heartbeat Respiratory/Chest Respiratory/Chest: Reports cough, dyspnea and dyspnea on exertion; Denies orthopnea Gastrointestinal Gastrointestinal: Reports diarrhea; Denies abdominal pain, nausea or vomiting Genitourinary Genitourinary ED: Denies dysuria, hematuria or urinary frequency Musculoskeletal Musculoskeletal: Reports other Details: Left greater than right leg pain. ; Denies arthralgias, myalgias or neck pain Integumentary Denies abscess or rash Neurologic Neurologic: Reports paresthesias; Denies headache(s) or weakness Psychiatric Psychiatric: Denies anxiety, depression, suicidal ideation or suicidal thoughts Endocrine Endocrinology: Denies polydipsia, polyphagia or polyuria Allergic/Immunologic Allergic/Immunologic ED: Denies mouth swelling, tongue swelling or urticaria EXAM Physical Exam Const Vital Signs: 10/20/22 19:23 10/20/22 20:31 10/20/22 21:55 Temperature 97.8 F 97.7 F L Temperature Source Temporal Temporal Pulse Rate 111 H 101 H Respiratory Rate 18 16 Respiratory Effort Short of Breath Blood Pressure 140/111 H 114/66 Blood Pressure Mean 120 82 Pulse Ox 98 98 Oxygen Delivery Method Room Air Room Air Positive well nourished, well developed and obese General Appearance ED: well developed Nutritional Appearance: obese HEENT Reports normocephalic, head/scalp atraumatic and moist mucous membranes Eyes PERRL and EOMs intact bilaterally Neck no lymphadenopathy, supple and no JVD Resp normal respiratory effort and clear to auscultation bilaterally Cardio regular rate, regular rhythm and no murmurs GI normal to inspection, nondistended, normoactive bowel sounds and non-tender GI Narrative: Abdominal habitus precludes confident palpable exam. Palpation: soft Back/Spine no CVA tenderness and normal ROM Extremity Extremity Narrative: There is no significant lower extremity edema from side to side. There appears to be some superficial thrombosed veins on the left medial aspect of the lower leg. She has multiple varicosities. General Extremety ED: Negative for edema General Extremity: Negative for edema Neuro oriented x3 and CN's II-XII intact bilaterally Sensorium / Orientation: alert Motor Exam: strength 5/5 throughout Psych mental status grossly normal Mood & Affect: Negative for depressed or tearful Skin no rashes or lesions noted and no wounds MDM MDM MDM Narrative Medical decision making narrative: Duplex was negative for DVT. CTA of the chest is negative for pulmonary embolism. White count is 13.7 hemoglobin 13.3. See the showed a glucose of 150 creatinine of 1.12. Patient has not required any supplemental oxygen. She has had several bouts of diarrhea. This was sent to the lab for C. difficile enteric pathogens ova and parasites as well as fecal leukocytes. She was advised that this test will not come back during her emergency room stay. Pain is most likely a viral illness. The abdominal exam is benign. She appears hydrated. Patient to be discharged home instructions for Imodium oral hydration follow-up with primary care return if worsening Lab Data Attestation: I reviewed the patient's lab results. Labs: Laboratory Results - last 24 hr 10/20/22 10/20/22 10/20/22 20:30 20:30 21:20 WBC Cancelled 13.7 H Corrected WBC Cancelled RBC Cancelled 4.46 Hgb Cancelled 13.6 Hct Cancelled 43.4 MCV Cancelled 97.3 MCH Cancelled 30.5 MCHC Cancelled 31.3 L RDW Std Deviation Cancelled 47.7 H RDW Coeff of Penny Cancelled 13.2 Plt Count Cancelled 370 MPV Cancelled 11.1 Immature Gran % (Auto) Cancelled 0.700 Neut % (Auto) Cancelled 81.1 H Lymph % (Auto) Cancelled 9.5 L [place] % (Auto) Cancelled 7.9 Eos % (Auto) Cancelled 0.4 Baso % (Auto) Cancelled 0.4 Absolute Neuts (auto) Cancelled 11.1 H Absolute Lymphs (auto) Cancelled 1.30 Total Counted Cancelled Neutrophils % (Manual) Cancelled Band Neutrophils % Cancelled Lymphocytes % (Manual) Cancelled Monocytes % (Manual) Cancelled Eosinophils % (Manual) Cancelled Basophils % (Manual) Cancelled Metamyelocytes % Cancelled Myelocytes % Cancelled Promyelocytes % Cancelled Blast Cells % Cancelled Plasma Cell % (Manual) Cancelled Other Cells % Cancelled Nucleated RBC % Cancelled 0 Nucleated RBCs/100 WBC Cancelled Differential Comment Cancelled Diff Path Review Cancelled Hypersegmented Neuts Cancelled Atypical Lymphocytes Cancelled Reactive Lymphocytes Cancelled Smudge Cells Cancelled Toxic Granulation Cancelled Toxic Vacuolation Cancelled Dohle Bodies Cancelled Ravi Rods Cancelled Platelet Estimate Cancelled Plt Morphology Comment Cancelled RBC Morphology Cancelled Cancelled Polychromasia Cancelled Hypochromasia Cancelled Poikilocytosis Cancelled Basophilic Stippling Cancelled Anisocytosis Cancelled Microcytosis Cancelled Macrocytosis Cancelled Spherocytes Cancelled Sickle Cells Cancelled Target Cells Cancelled Tear Drop Cells Cancelled Ovalocytes Cancelled Stomatocytes Cancelled [place] Bodies Cancelled West Cells Cancelled Bite Cells Cancelled Crenated Cell Cancelled Acanthocytes (Spur) Cancelled Rouleaux Cancelled Schistocytes Cancelled Sodium 132 L Potassium 4.8 Chloride 101 Carbon Dioxide 21.0 Anion Gap 10 BUN 17 Creatinine 1.12 H Est GFR (MDRD) Af Amer 62 Est GFR (MDRD) Non-Af 51 L BUN/Creatinine Ratio 15.2 Glucose 150 H Calcium 9.5 Total Bilirubin 0.70 AST 21 ALT 16 Alkaline Phosphatase 70 Troponin I High Sens 17 Total Protein 7.3 Albumin 2.9 L Globulin 4.4 H Albumin/Globulin Ratio 0.7 L Radiography Diagnostic Testing: Clinical Impression(s) from Imaging Studies Venous Duplex 10/20/22 20:17 IMPRESSION: No deep venous thrombosis. Electronically Signed: Luis Cedeno MD at 21:30 EDT Reading Location ID and State: [id number] / [employer] Tel , Service support , Chest CTA 10/20/22 20:53 IMPRESSION: Normal CTA chest examination, without a demonstrated pulmonary embolism or arterial dissection. Electronically Signed: Luis Cedeno MD at 22:27 EDT Reading Location ID and State: [id number] / [employer] Tel , Service support , EKG Initial EKG: Attestation: I personally reviewed and interpreted this EKG as follows: Comments: Normal sinus rhythm with a ventricular rate of 94 bpm Discharge Plan Triage Chief Complaint: General Illness ED Provider: Darius Ryan Dx/Rx/DC Orders Clinical Impression: Acute dyspnea, Diarrhea, Superficial thrombophlebitis of leg, Diabetes mellitus type 2 in obese Instructions: ED Diarrhea, Unknown Cause, ED Thrombophlebitis, Superficial Prescriptions: No Action bupropion HCl 150 mg tablet sustained-release 12 hr 150 mg PO BID insulin glargine 100 UNITS/ML insulin pen 100 units SC QHS Patient Comments: blood sugar oxycodone-acetaminophen 1 TABLET tablet 1 tab PO Q6H gabapentin 400 MG capsule 400 mg PO TID furosemide 40 mg tablet 40 mg DAILY Patient Comments: TAKE 1 TABLET BY MOUTH EVERY DAY ropinirole 0.5 mg tablet 1 mg QHS Patient Comments: TAKE 1 TO 2 TABLETS BY MOUTH EVERY NIGHT AT BEDTIME metformin 500 mg tablet extended release 24 hr 500 mg PO BID Patient Comments: PLEASE SEE ATTACHED FOR DETAILED DIRECTIONS Jardiance 25 mg tablet 25 mg DAILY Patient Comments: TAKE 1 TABLET BY MOUTH EVERY MORNING meclizine 25 mg tablet 25 mg PO TID Qty: 20 0RF metoprolol succinate 25 mg tablet extended release 24 hr 25 mg PO DAILY Qty: 90 3RF aspirin 81 mg tablet,delayed release (DR/EC) 81 mg PO DAILY Qty: 90 3RF Primary Care Provider: Jesse Curran Referrals: Jesse Curran DO [Primary Care Provider] - 3-5 Days if not improving Disposition Disposition: Home, Self Care
[2022-10-20 20:52] LABS: ALB/GLOB Ratio 0.7 RATIO (0.9-2.4); AST(SGOT) 21 U/L (15-37); Alanine Aminotransfer ALT/SGPT 16 U/L (13-56); Albumin, Serum 2.9 g/dL (3.2-5.0); Alkaline Phosphatase 70 U/L (45-117); Anion Gap 10 (5-15); BUN 17 mg/dL (7-18); BUN/Creat Ratio 15.2 RATIO (10-20); Calcium,Total 9.5 mg/dL (8.5-10.1); Chloride 101 mmol/L (98-107); Creatinine, Serum 1.12 mg/dL (0.55-1.02); EST Glomerular Filtration Rate 51 mL/min (>60); Est Glom Filt Rate - Afr Amer 62 mL/min (>60); Globulin 4.4 g/dL (2.2-4.2); Glucose 150 mg/dL (74-106); Potassium 4.8 mmol/L (3.5-5.1); Protein, Total 7.3 g/dL (6.4-8.2); Sodium Level 132 mmol/L (136-145); Troponin-I HS 17 pg/mL (3.0-54.0)
--- NOTE | 2022-10-20 20:53 | CT_ITS ---
STUDY: CTA CHEST REASON FOR EXAM: Female, 72 years old. pulmonary embolism RADIATION DOSAGE (If Supplied By Facility): CTDIvol = ( 16.21 ) mGy, DLP = ( 753.74 ) mGycm TECHNIQUE: The examination was performed with the intravenous administration of IV 100mL Isovue-370. Post-processing of the angiographic images was performed, with multiplanar reformation and 3D reconstruction. Individualized dose optimization techniques were used for this CT. COMPARISON: 04/22/2022 FINDINGS: Normal enhancement of the main pulmonary artery and right and left pulmonary arteries. Normal enhancement of the bilateral peripheral pulmonary arteries. There is no demonstrated pulmonary embolism. Normal thoracic aorta and visualized great vessels. There is no demonstrated aortic dissection. Normal heart and pericardium. Normal mediastinum. Normal hilar regions. Normal visualized trachea and bronchi. The lungs are well expanded. Mild emphysema. Normal pleura. Normal chest wall structures. Normal osseous structures. Normal visualized upper abdomen. CT/CTA Chest W/WO Contrast IMPRESSION: Normal CTA chest examination, without a demonstrated pulmonary embolism or arterial dissection. Electronically Signed: Luis Cedeno MD at 22:27 EDT ,
[2022-10-20 21:19] VITALS: BMI 51.4
[2022-10-20 21:27] LABS: Absolute Neutrophil Count 11.1 X10^3/uL (2.0-7.7); Basophil# 0.06 X10^3/uL; Basophil% 0.4 % (0-1); Eosinophil# 0.05 X10^3/uL; Eosinophils% 0.4 % (0-5); Hematocrit 43.4 % (37-47); Hemoglobin 13.6 g/dL (12.0-15.0); Lymphocyte % 9.5 % (19-41); Mean Corp Hgb Conc 31.3 g/dL (32-36); Mean Corpuscular Hgb 30.5 pg (27.0-32.0); Mean Corpuscular Volume 97.3 fL (81-99); Mean Platelet Vol. 11.1 fl (6.2-12.0); Monocyte# 1.08 X10^3/uL; Monocyte% 7.9 % (0-10); NRBC Flagged by Analyzer 0 % (0-5); Neutrophil % 81.1 % (47-70); Platelet Count 370 K/mm3 (150-450); RBC Distribution Width CV 13.2 % (11.6-14.6); RBC Distribution Width SD 47.7 fl (35.1-43.9); Red Blood Count 4.46 M/mm3 (4.2-5.4); White Blood Count 13.7 K/mm3 (4.4-11.0)
[2022-10-20 21:55] VITALS: BP 114/66; PULSE 101; RESP 16; TEMP 36.5; O2SAT 98
== END 2022-10-20 23:29 | disposition home or self-care (01) ==
PROVIDERS: Emergency Provider Emergency Medicine; PCP Student in an Organized Health Care Education/Training Program; Visit Provider Emergency Medicine
DX: R06.00 Dyspnea, unspecified (principal); E11.51 Type 2 diabetes mellitus with diabetic peripheral angiopathy without gangrene; I73.9 Peripheral vascular disease, unspecified; R19.7 Diarrhea, unspecified; E78.00 Pure hypercholesterolemia, unspecified; I80.00 Phlebitis and thrombophlebitis of superficial vessels of unspecified lower extremity; M79.604 Pain in right leg; M79.605 Pain in left leg; F17.210 Nicotine dependence, cigarettes, uncomplicated; R07.9 Chest pain, unspecified; E66.9 Obesity, unspecified
CPT/HCPCS: 36415; 71275; 80053; 83630; 84484; 85025; 87177; 87209; 87493; 87506; 93005; 93971; 99285; Q9967; A4216

== ENCOUNTER → 2023-01-25 | Outpatient (CLI) | payer MEDICARE, MEDICAID, SELFPAY ==
[2023-01-25 13:44] LABS: Hemoglobin 13.5 g/dL (12.0-15.0); Mean Corp Hgb Conc 31.4 g/dL (32-36); Mean Corpuscular Hgb 30.8 pg (27.0-32.0); Mean Corpuscular Volume 97.9 fL (81-99); Mean Platelet Vol. 12.4 fl (6.2-12.0); Platelet Count 246 K/mm3 (150-450); RBC Distribution Width CV 15.3 % (11.6-14.6); RBC Distribution Width SD 55.4 fl (35.1-43.9); Red Blood Count 4.39 M/mm3 (4.2-5.4); White Blood Count 7.7 K/mm3 (4.4-11.0)
[2023-01-25 14:08] LABS: Vitamin B12 199 pg/mL (211-911)
[2023-01-25 14:17] LABS: ALB/GLOB Ratio 0.9 RATIO (0.9-2.4); AST(SGOT) 9 U/L (15-37); Alanine Aminotransfer ALT/SGPT 11 U/L (13-56); Albumin, Serum 3.4 g/dL (3.2-5.0); Alkaline Phosphatase 84 U/L (45-117); Anion Gap 4 (5-15); BUN 18 mg/dL (7-18); BUN/Creat Ratio 16.5 RATIO (10-20); Calcium,Total 9.2 mg/dL (8.5-10.1); Chloride 104 mmol/L (98-107); Cholesterol 142 mg/dL (200); Creatinine, Serum 1.09 mg/dL (0.55-1.02); EST Glomerular Filtration Rate 53 mL/min (>60); Est Glom Filt Rate - Afr Amer 64 mL/min (>60); Globulin 3.6 g/dL (2.2-4.2); Glucose 83 mg/dL (74-106); High Density Lipoprotein 35 mg/dL; Potassium 4.6 mmol/L (3.5-5.1); Sodium Level 139 mmol/L (136-145); T4 Free Direct 0.95 ng/dL (0.76-1.46); Thyroid Stim Hormone (TSH) 4.44 uIU/mL (0.358-3.74); Triglycerides 173 mg/dL; Very Low Density Lipoprotein 35 mg/dL (5-40)
== END | disposition home or self-care (01) ==
LOC: LAB 12:42
PROVIDERS: PCP Student in an Organized Health Care Education/Training Program; Referring Provider Student in an Organized Health Care Education/Training Program; Visit Provider Student in an Organized Health Care Education/Training Program
DX: E03.9 Hypothyroidism, unspecified (principal); E11.69 Type 2 diabetes mellitus with other specified complication; R41.3 Other amnesia
CPT/HCPCS: 36415; 80053; 80061; 82607; 84439; 84443; 85027

== ENCOUNTER 2023-01-27 08:30 | Inpatient (IN) | payer MEDICARE, MEDICAID, SELFPAY ==
[2023-01-27] VITALS (39 sets, daily range): BP systolic 88–199; BP diastolic 47–147; PULSE 87–173; RESP 12–97; TEMP 37.3–39.5; O2SAT 8–100; BMI 49.8; BMI 49.2
--- NOTE | 2023-01-27 08:39 | CT_ITS ---
STUDY: CT BRAIN WITHOUT CONTRAST REASON FOR EXAM: Female, 72 years old. Altered mental status. RADIATION DOSAGE (If Supplied By Facility): CTDIvol = ( 44.99 ) mGy, DLP = ( 812.98 ) mGycm TECHNIQUE: Transaxial CT imaging of the brain was performed without administration of intravenous contrast material. Individualized dose optimization techniques were used for this CT. COMPARISON: Comparison is made with prior study May 23, 2021. FINDINGS: Normal soft tissue structures. Normal calvarium. There is mild cerebral atrophy with widening of the extra-axial spaces and ventricular dilatation. Normal white matter tracts of the cerebral hemispheres. There are small punctate calcifications of the basal ganglia which are seen in the aging brain as a normal variant. Normal brainstem. Normal cerebellum. There is no intracranial hemorrhage. There are no findings of an acute ischemic infarction. Atherosclerotic calcific plaques of the vertebral arteries bilaterally as well as the cavernous portions of the internal carotid arteries bilaterally. Normal visualized paranasal sinuses. CT/Brain/Head without Contrast IMPRESSION: Chronic involutional changes of the brain. Electronically Signed: Jesse Huntley MD at 9:28 EST ,
--- NOTE | 2023-01-27 08:49 | EX.ED.DYSGE1 ---
HPI History of Present Illness Chief Complaint: Unresponsive Informant: family and EMS Narrative Narrative: 72-year-old female brought to the emergency department with a chief complaint of being unresponsive. Family states the patient seemed fine last evening. She cooked dinner and went to bed. Family notes that around 0300 hrs. the patient was noted to have nausea and took Zofran. When they checked on her this morning she was unresponsive. They noted that she did not have her CPAP on. They noted that her pulse ox was in the mid 80s. EMS was called. They confirm some hypoxia and administer supplemental oxygen. They note that she feels very warm. She is a long-term smoker but does not wear home oxygen. [facility] Medical History Diabetes mellitus type 2 in obese Hypercholesteremia Obstructive sleep apnea Osteoarthritis Palpitations Paroxysmal atrial fibrillation Peripheral vascular disease Vertigo Home Medications insulin glargine 100 unit/mL (3 mL) subcutaneous pen 100 units subcut QHS diabetes 03/14/14 [History Last Taken 11/14/19 23:00] oxycodone-acetaminophen 5 mg-325 mg tablet 1 tab PO Q6H PAIN 04/02/16 [History Last Taken 01/26/23] gabapentin 400 mg capsule 400 mg PO DAILY NEUROPATHY 11/15/19 [History Last Taken 01/26/23] aspirin 81 mg tablet,delayed release 81 mg PO DAILY HEART HEALTH #90 tabs 10/25/20 [Rx Last Taken 01/26/23] empagliflozin 25 mg tablet (Jardiance) 25 mg PO DAILY DIABETES 05/23/21 [History Last Taken 01/26/23] metformin 500 mg tablet,extended release 24 hr 1,000 mg PO DAILY DIABETES 05/23/21 [History Last Taken 01/26/23] ropinirole 0.5 mg tablet 0.5 - 1 mg PO QHS RESTLESS LEGS 05/23/21 [History Last Taken 01/26/23] albuterol sulfate 90 mcg/actuation aerosol inhaler 2 puff inhalation Q4H SHORTNESS OF BREATH 01/27/23 [History Last Taken 01/26/23] bumetanide 1 mg tablet 1 mg PO DAILY EDEMA 01/27/23 [History Last Taken 01/26/23] bupropion HCl 150 mg 24 hr tablet, extended release 150 mg PO DAILY DEPRESSION 01/27/23 [History Last Taken 01/26/23] calcium carbonate 600 mg-vitamin D3 10 mcg (400 unit) tablet 1 tab PO BID SUPPLEMENT 01/27/23 [History Last Taken 01/26/23] escitalopram oxalate 20 mg tablet 20 mg PO DAILY DEPRESSION 01/27/23 [History Last Taken 01/26/23] fluticasone fur. 100 mcg-umeclid 62.5 mcg-vilant 25 mcg inhalat.powder (Trelegy Ellipta) 1 inh inhalation DAILY SHORTNESS OF BREATH/WHEEZING 01/27/23 [History Last Taken 01/26/23] gabapentin 400 mg capsule 800 mg PO QPM NEUROPATHY 01/27/23 [History Last Taken 01/26/23] meloxicam 15 mg tablet 15 mg PO DAILY ARTHRITIS 01/27/23 [History Last Taken 01/26/23] pravastatin 40 mg tablet 40 mg PO QPM CHOLESTEROL 01/27/23 [History Last Taken 01/26/23] ropinirole 0.5 mg tablet 1 mg PO QPM PRN RESTLESS LEGS 01/27/23 [History Last Taken Unknown] Allergy/AdvReac Type Severity Reaction Status Date / Time ampicillin Allergy Hives Verified 01/27/23 08:31 codeine Allergy Hives Verified 01/27/23 08:31 meperidine HCl [From Demerol] Allergy Hives Verified 01/27/23 08:31 Penicillins [PCN] Allergy Hives Verified 01/27/23 08:31 propoxyphene napsylate Allergy Hives Verified 01/27/23 08:31 [From Darvocet-N] Family History Mother Heart disease Brother Heart disease Grandfather CVA (cerebral vascular accident) Grandmother Myocardial infarction Surgical History History of appendectomy History of cardiac catheterization History of hysterectomy History of knee replacement History of laparoscopic cholecystectomy (~11/2019) History of lumpectomy of both breasts History of tubal ligation Social History Smoking Status: Current every day smoker tobacco type: cigarettes alcohol intake: never substance use type: does not use caffeine: Yes Type: coffee Number of servings: 5 ROS ROS ED Review of Systems ROS Unobtainable: due to mental status EXAM Physical Exam Const Vital Signs: 01/27/23 08:31 01/27/23 08:39 01/27/23 08:34 Temperature 99.8 F H 99.8 F H Temperature Source Temporal Temporal Pulse Rate 119 H 119 H Respiratory Rate 26 H 26 H Blood Pressure 155/84 H 155/84 H Blood Pressure Mean 107 107 Pulse Ox 100 100 Oxygen Delivery Method Non-Rebreather Non-Rebreather Non-Rebreather Oxygen Flow Rate (L/min) 01/27/23 09:34 01/27/23 09:31 01/27/23 10:31 Temperature 102.4 F H Temperature Source Core Pulse Rate 115 H 116 H 104 H Respiratory Rate 23 H 23 H 23 H Blood Pressure 103/66 124/69 H 88/57 L Blood Pressure Mean 78 87 67 Pulse Ox 97 98 96 Oxygen Delivery Method Venturi Mask Room Air Nasal Cannula Oxygen Flow Rate (L/min) 01/27/23 11:23 01/27/23 11:32 Temperature 101 F H 100.9 F H Temperature Source Core Pulse Rate 97 97 Respiratory Rate 24 H 17 Blood Pressure 103/55 L 106/57 L Blood Pressure Mean 71 73 Pulse Ox 97 99 Oxygen Delivery Method Nasal Cannula Oxygen Flow Rate (L/min) 4 Positive well nourished, well developed and obese General Appearance ED: well developed Nutritional Appearance: obese HEENT Reports normocephalic, head/scalp atraumatic and moist mucous membranes Eyes PERRL and EOMs intact bilaterally Eyes Narrative: Pupils 4-2 bilaterally Neck no lymphadenopathy, supple and no JVD Neck Narrative: The neck is supple with no meningeal signs Resp normal respiratory effort and clear to auscultation bilaterally Cardio regular rate, regular rhythm and no murmurs Rate: tachycardic GI normal to inspection, nondistended, normoactive bowel sounds and non-tender Palpation: soft Back/Spine no CVA tenderness and normal ROM Extremity normal to inspection General Extremety ED: Yes edema General Extremity: edema bilateral (Mild bilateral lower extremity edema) lower extremity Neuro CN's II-XII intact bilaterally Neuro Narrative: Patient is able to communicate but is lethargic. She notes that she needs to use the bathroom. Sensorium / Orientation: lethargic Motor Exam: strength 5/5 throughout Psych Psych Narrative: Unable to assess Skin no rashes or lesions noted and no wounds Sepsis Attestation Sepsis Alert: Yes Sepsis Attestation: Agree w/Sepsis Date exam was performed: 01/27/23 Time exam was performed: 11:30 Possible Source of Sepsis: Unknown Sepsis Organ Dysfunction Criteria Present: Lactic Acid > 2 mmol/L and New/Unexplained change in mental status MDM MDM MDM Narrative Medical decision making narrative: Broad-based differential. Pulmonary infection bacteremia UTI ACS. temperature sensitive Das was placed. Her temperature was 102.4 and she received Tylenol. She received supplemental oxygen. Mental status has gradually been improving. White count 10.8 with 95.3 neutrophils. Lactic acid slightly elevated at 2.2. This is probably multifactorial. She is on metformin and she has been hypoxic. I think this is most likely the cause of the elevated lactic acid. She has not had hypotension. Troponin is elevated did at 852. Patient received a dose of aspirin. EKG is nonischemic in nature. BMP showed a creatinine 1.2 with a BUN of 18. Liver and normal. Urinalysis 0-5 white is 10-25 epithelial cells. Negative nitrates 2+ bacteria. Most likely contaminant but no overt infection. This was sent for culture. Blood cultures were also obtained. CT the brain demonstrates no acute findings. My independent interpretation of the chest x-ray is no definitive infiltrate. Normal mediastinal silhouette. Patient had some lower than expected blood pressures but still greater than mean of 65. It is being taken off of a forearm cuff. We will attempt a upper arm reading but due to the patient's body habitus this may be difficult. We will continue to provide IV fluids. At this point I am think that the patient's mental status is improving. I am not convinced that she needs pressors at this point. As she continues to improve I am not convinced that large volume fluid resuscitation is necessarily needed. We will continue with hydration with frequent reassessments. Her second troponin came back elevated more so than the first. We are going to obtain a CTA. History & Record Review Discussion w/independent historian: EMS personnel, Patient and Family Additional record(s) reviewed:: Prior inpatient record, Prior ED visit and Prior labs Lab Data Attestation: I reviewed the patient's lab results. Labs: Laboratory Results - last 24 hr 01/27/23 01/27/23 01/27/23 08:51 08:56 10:57 WBC 10.8 RBC 4.78 Hgb 14.4 Hct 45.3 MCV 94.8 MCH 30.1 MCHC 31.8 L RDW Std Deviation 53.7 H RDW Coeff of Penny 15.2 H Plt Count 200 MPV 11.6 Immature Gran % (Auto) 0.400 Neut % (Auto) 95.3 H Lymph % (Auto) 3.0 L [place] % (Auto) 0.7 Eos % (Auto) 0.3 Baso % (Auto) 0.3 Absolute Neuts (auto) 10.3 H Absolute Lymphs (auto) 0.32 L Nucleated RBC % 0 Differential Comment COMMENT PT 13.3 INR 1.0 APTT 25.3 Sodium 135 L Potassium 4.5 Chloride 104 Carbon Dioxide 26.0 Anion Gap 5 BUN 16 Creatinine 1.20 H Estim Creat Clear Calc 78.20 Est GFR (MDRD) Af Amer 57 L Est GFR (MDRD) Non-Af 47 L BUN/Creatinine Ratio 13.3 Glucose 150 H Lactic Acid 2.2 H* Calcium 9.2 Total Bilirubin 0.80 Direct Bilirubin 0.19 AST 10 L ALT 13 Alkaline Phosphatase 92 Troponin I High Sens 852 H* 1612 H* Total Protein 6.9 Albumin 3.3 Globulin 3.6 Lipase 25 Urine Color Yellow Urine Clarity Sl. Cloudy Urine pH 7.0 Ur Specific [place] 1.005 Urine Protein 30 H Urine Glucose (UA) 1000 H Urine Ketones Negative Urine Occult Blood 50 H Urine Nitrite Negative Urine Bilirubin Negative Urine Urobilinogen Normal Ur Leukocyte Esterase 25 H Urine RBC 0-5 SEEN Urine WBC 0-5 SEEN Ur Squamous Epith Cells 10-25 SEEN Urine Bacteria 2+ Urine Mucus 0 SEEN Radiography Diagnostic Testing: Clinical Impression(s) from Imaging Studies Brain CT 01/27/23 08:39 IMPRESSION: Chronic involutional changes of the brain. Electronically Signed: Jesse Huntley MD at 9:28 EST , Chest X-Ray 01/27/23 09:12 IMPRESSION: Stable mild increased markings at the lung bases. No acute abnormality is seen. Electronically Signed: Jesse Huntley MD at 9:41 EST , EKG Initial EKG: Attestation: I personally reviewed and interpreted this EKG as follows: Comments: Sinus tachycardia ventricular rate of 117 bpm. No definitive features of ACS noted. Follow-up EKG: Attestation: I personally reviewed and interpreted this EKG as follows: Comments: Normal sinus rhythm ventricular rate of 98 bpm. No definitive features of ACS noted Management Discussion w/another healthcare provider: Hospitalist Discharge Plan Dx/Rx/DC Orders Clinical Impression: Obstructive sleep apnea, Morbid obesity, Diabetes mellitus type 2 in obese, Hypoxemia, Elevated troponin, Altered mental status, Acute febrile illness Disposition Disposition: Acute Care [facility]
[2023-01-27 09:05] LABS: Absolute Lymphocyte Count 0.32 X10^3/uL (0.83-4.51); Absolute Neutrophil Count 10.3 X10^3/uL (2.0-7.7); Basophil# 0.03 X10^3/uL; Basophil% 0.3 % (0-1); Eosinophil# 0.03 X10^3/uL; Eosinophils% 0.3 % (0-5); Hematocrit 45.3 % (37-47); Hemoglobin 14.4 g/dL (12.0-15.0); Lymphocyte # 0.32 X10^3/ul (0.83-4.51); Mean Corp Hgb Conc 31.8 g/dL (32-36); Mean Corpuscular Hgb 30.1 pg (27.0-32.0); Mean Corpuscular Volume 94.8 fL (81-99); Mean Platelet Vol. 11.6 fl (6.2-12.0); Monocyte# 0.08 X10^3/uL; Monocyte% 0.7 % (0-10); NRBC Flagged by Analyzer 0 % (0-5); Neutrophil # 10.32 X10^3/uL (2.7-7.7); Neutrophil % 95.3 % (47-70); POSITIVE DIFFERENTIAL YES; Platelet Count 200 K/mm3 (150-450); RBC Distribution Width CV 15.2 % (11.6-14.6); RBC Distribution Width SD 53.7 fl (35.1-43.9); Red Blood Count 4.78 M/mm3 (4.2-5.4); White Blood Count 10.8 K/mm3 (4.4-11.0)
[2023-01-27 09:11] LABS: Differential Indicated SCAN CRITERIA MET
--- NOTE | 2023-01-27 09:12 | RAD_ITS ---
STUDY: X-RAY CHEST REASON FOR EXAM: Female, 72 years old. Fever TECHNIQUE: Patient was found unresponsive. COMPARISON: Comparison is made with prior study dated October 04, 2020. FINDINGS: EKG electrodes are seen. Hyperinflation. Stable mild increased markings at the lung bases suggestive of basilar scarring. Stable calcified granuloma in the lateral aspect of the left upper lobe. There is no demonstrated pleural abnormality. Normal size heart. Normal mediastinum and cheryle. Normal visualized pulmonary arteries. There is atherosclerotic calcification of the aortic arch with tortuosity. Normal visualized thoracic spine. Normal visualized ribs, clavicles, and shoulders. There is no demonstrated abnormality of the visualized soft tissue structures of the upper abdomen. RAD/Chest 1 View (Portable) IMPRESSION: Stable mild increased markings at the lung bases. No acute abnormality is seen. Electronically Signed: Jesse Huntley MD at 9:41 EST ,
[2023-01-27 09:16] LABS: Prothrombin Time (Protime)PT. 13.3 SECONDS (11.7-14.9)
[2023-01-27 09:17] LABS: Partial Thromboplast Time 25.3 Seconds (24.1-36.2)
[2023-01-27 09:20] LABS: Mucous, Urine 0 SEEN /hpf (<or=2+)
[2023-01-27 09:25] LABS: Color, Urine Yellow (Yellow); Glucose, Dipstick 1000 mg/dl (Normal); Ketone-Dipstick Negative (Negative); Leukocyte Esterase-Dipstick 25 /ul (Negative); Nitrite-Dipstick Negative (Negative); Occult Blood-Urine 50 /ul (Negative); Protein-Dipstick 30 mg/dl (Negative); Specific Gravity, Urine 1.005 (1.002-1.030); Urine Bilirubin Dipstick Negative (Negative); Urine Clarity Sl. Cloudy (Clear); Urine Urobilinogen Normal (Normal)
[2023-01-27] MEDS: Acetaminophen 650 MG Suppository RC (09:27)
[2023-01-27] MEDS: 0.9% Normal Saline (1000mL) 1,000 ML 200 ML IV ×3 (09:28→23:11)
[2023-01-27 09:31] LABS: Lactic Acid 2.2 mmol/L (0.4-1.9)
[2023-01-27 09:35] LABS: Bacteria 2+ /hpf (None Seen); Red Blood Cells-Urine 0-5 SEEN /hpf (0-5); Squamous Epithelial Cells - UA 10-25 SEEN /hpf (5-10); White Blood Cells 0-5 SEEN /hpf (0-5)
[2023-01-27 09:38] LABS: AST(SGOT) 10 U/L (15-37); Alanine Aminotransfer ALT/SGPT 13 U/L (13-56); Albumin, Serum 3.3 g/dL (3.2-5.0); Alkaline Phosphatase 92 U/L (45-117); Anion Gap 5 (5-15); BUN 16 mg/dL (7-18); BUN/Creat Ratio 13.3 RATIO (10-20); Bilirubin, Direct 0.19 mg/dL (0.00-0.30); Calcium,Total 9.2 mg/dL (8.5-10.1); Chloride 104 mmol/L (98-107); EST Glomerular Filtration Rate 47 mL/min (>60); Est Glom Filt Rate - Afr Amer 57 mL/min (>60); Globulin 3.6 g/dL (2.2-4.2); Glucose 150 mg/dL (74-106); Lipase 25 U/L (13-75); Potassium 4.5 mmol/L (3.5-5.1); Protein, Total 6.9 g/dL (6.4-8.2); Sodium Level 135 mmol/L (136-145); Troponin-I HS 852 pg/mL (3.0-54.0)
[2023-01-27] MEDS: 0.9% Normal Saline (1000mL) 1,000 ML 999 ML IV ×2 (10:36→11:24)
[2023-01-27] MEDS: Cefepime HCl 2 GM in 0.9% Normal Saline (100mL MB+) 100 ML IV ×2 (11:24→22:06)
--- NOTE | 2023-01-27 11:26 | HP.PCM.HOS_ITS ---
HPI - General General Date of Admission: 01/27/23 Date of Service: 01/27/23 Chief Complaint: Generalized weakness HPI Narrative [address], is a 72 F who presents with past medical history significant diabetes mellitus type 2, COPD who was brought to the emergency department by the family. Patient was apparently in her usual state of health the day prior to admission however on the morning of her presentation patient was found by family not to be acting right. Patient was reported to be confused unable to recognize family members who were with her. Her level of sensorium continued to worsen resulting in family calling EMS. Patient was brought to the emergency department an assessment of sepsis secondary to acute cystitis was made treatment initiated per protocol patient admitted to intensive care unit for further management [facility] Medical History Diabetes mellitus type 2 in obese Hypercholesteremia Obstructive sleep apnea Osteoarthritis Palpitations Paroxysmal atrial fibrillation Peripheral vascular disease Vertigo Home Medications insulin glargine 100 unit/mL (3 mL) subcutaneous pen 100 units subcut QHS diabetes 03/14/14 [History Last Taken 11/14/19 23:00] oxycodone-acetaminophen 5 mg-325 mg tablet 1 tab PO Q6H PAIN 04/02/16 [History Last Taken 01/26/23] gabapentin 400 mg capsule 400 mg PO DAILY NEUROPATHY 11/15/19 [History Last Taken 01/26/23] aspirin 81 mg tablet,delayed release 81 mg PO DAILY HEART HEALTH #90 tabs 10/25/20 [Rx Last Taken 01/26/23] empagliflozin 25 mg tablet (Jardiance) 25 mg PO DAILY DIABETES 05/23/21 [History Last Taken 01/26/23] metformin 500 mg tablet,extended release 24 hr 1,000 mg PO DAILY DIABETES 05/23/21 [History Last Taken 01/26/23] ropinirole 0.5 mg tablet 0.5 - 1 mg PO QHS RESTLESS LEGS 05/23/21 [History Last Taken 01/26/23] albuterol sulfate 90 mcg/actuation aerosol inhaler 2 puff inhalation Q4H SHORTNESS OF BREATH 01/27/23 [History Last Taken 01/26/23] bumetanide 1 mg tablet 1 mg PO DAILY EDEMA 01/27/23 [History Last Taken 01/26/23] bupropion HCl 150 mg 24 hr tablet, extended release 150 mg PO DAILY DEPRESSION 01/27/23 [History Last Taken 01/26/23] calcium carbonate 600 mg-vitamin D3 10 mcg (400 unit) tablet 1 tab PO BID SUPPLEMENT 01/27/23 [History Last Taken 01/26/23] escitalopram oxalate 20 mg tablet 20 mg PO DAILY DEPRESSION 01/27/23 [History Last Taken 01/26/23] fluticasone fur. 100 mcg-umeclid 62.5 mcg-vilant 25 mcg inhalat.powder (Trelegy Ellipta) 1 inh inhalation DAILY SHORTNESS OF BREATH/WHEEZING 01/27/23 [History Last Taken 01/26/23] gabapentin 400 mg capsule 800 mg PO QPM NEUROPATHY 01/27/23 [History Last Taken 01/26/23] meloxicam 15 mg tablet 15 mg PO DAILY ARTHRITIS 01/27/23 [History Last Taken 01/26/23] pravastatin 40 mg tablet 40 mg PO QPM CHOLESTEROL 01/27/23 [History Last Taken 01/26/23] ropinirole 0.5 mg tablet 1 mg PO QPM PRN RESTLESS LEGS 01/27/23 [History Last Taken Unknown] Allergy/AdvReac Type Severity Reaction Status Date / Time ampicillin Allergy Hives Verified 01/27/23 08:31 codeine Allergy Hives Verified 01/27/23 08:31 meperidine HCl [From Demerol] Allergy Hives Verified 01/27/23 08:31 Penicillins [PCN] Allergy Hives Verified 01/27/23 08:31 propoxyphene napsylate Allergy Hives Verified 01/27/23 08:31 [From Darvocet-N] Family History Mother Heart disease Brother Heart disease Grandfather CVA (cerebral vascular accident) Grandmother Myocardial infarction Surgical History History of appendectomy History of cardiac catheterization History of hysterectomy History of knee replacement History of laparoscopic cholecystectomy (~11/2019) History of lumpectomy of both breasts History of tubal ligation Social History Smoking Status: Current every day smoker tobacco type: cigarettes alcohol intake: never substance use type: does not use caffeine: Yes Type: coffee Number of servings: 5 ROS ROS Narrative GENERAL: Generalized weakness HEENT: denies headache, sinus congestion, RESPIRATORY: denies cough, sputum production, CARDIAC: denies chest pain, palpitations, orthopnea, GASTROINTESTINAL: denies abdominal pain, nausea, GENITOURINARY: denies dysuria, urgency, frequency, EXTREMITY: denies swelling MUSCULOSKELETAL: denies current joint pain or tenderness NEUROLOGIC: Forgetfulness HEMATOLOGIC: denies easy bruising and/or hemorrhage INTEGUMENT: denies rashes PSYCHIATRIC: denies suicidal or homicidal ideation Vital Signs Vital Signs Vital Signs: 01/27/23 08:31 01/27/23 08:39 01/27/23 08:34 Temperature 99.8 F H 99.8 F H Temperature Source Temporal Temporal Pulse Rate 119 H 119 H Respiratory Rate 26 H 26 H Blood Pressure 155/84 H 155/84 H Blood Pressure Mean 107 107 Pulse Ox 100 100 Oxygen Delivery Method Non-Rebreather Non-Rebreather Non-Rebreather Oxygen Flow Rate (L/min) 01/27/23 09:34 01/27/23 09:31 01/27/23 10:31 Temperature 102.4 F H Temperature Source Core Pulse Rate 115 H 116 H 104 H Respiratory Rate 23 H 23 H 23 H Blood Pressure 103/66 124/69 H 88/57 L Blood Pressure Mean 78 87 67 Pulse Ox 97 98 96 Oxygen Delivery Method Venturi Mask Room Air Nasal Cannula Oxygen Flow Rate (L/min) 01/27/23 11:23 Temperature 101 F H Temperature Source Core Pulse Rate 97 Respiratory Rate 24 H Blood Pressure 103/55 L Blood Pressure Mean 71 Pulse Ox 97 Oxygen Delivery Method Nasal Cannula Oxygen Flow Rate (L/min) 4 Weight Weight: 115.2 kg Body Mass Index (BMI) 49.8 Physical Exam Narrative GENERAL: Somewhat lethargic HEENT: Atraumatic; normocephalic EYES; Anicteric, Normal Conjunctiva NECK; supple, normal thyroid, RESPIRATORY: Diminished to auscultation CARDIOVASCULAR: Regular S1 S2, GI: soft, normoactive bowel sounds, : No Renal angle tenderness; EXTREMITIES: No edema, no clubbing, MUSCULOSKELETAL: no muscle wasting NEURO: Awake; no lateralizing signs. SKIN: No Rash PSYCH; Flat affect Results Lab / Micro Data 01/27/23 08:56 01/27/23 08:56 Labs: Laboratory Results - last 24 hr 01/27/23 08:51: Urine Color Yellow, Urine Clarity Sl. Cloudy, Urine pH 7.0, Ur Specific [place] 1.005, Urine Protein 30 H, Urine Glucose (UA) 1000 H, Urine Ketones Negative, Urine Occult Blood 50 H, Urine Nitrite Negative, Urine Bilirubin Negative, Urine Urobilinogen Normal, Ur Leukocyte Esterase 25 H, Urine RBC 0-5 SEEN, Urine WBC 0-5 SEEN, Ur Squamous Epith Cells 10-25 SEEN, Urine Bacteria 2+, Urine Mucus 0 SEEN 01/27/23 08:56: WBC 10.8, RBC 4.78, Hgb 14.4, Hct 45.3, MCV 94.8, MCH 30.1, MCHC 31.8 L, RDW Std Deviation 53.7 H, RDW Coeff of Penny 15.2 H, Plt Count 200, MPV 11.6, Immature Gran % (Auto) 0.400, Neut % (Auto) 95.3 H, Lymph % (Auto) 3.0 L, [place] % (Auto) 0.7, Eos % (Auto) 0.3, Baso % (Auto) 0.3, Absolute Neuts (auto) 10.3 H, Absolute Lymphs (auto) 0.32 L, Nucleated RBC % 0, Differential Comment COMMENT, PT 13.3, INR 1.0, APTT 25.3, Sodium 135 L, Potassium 4.5, Chloride 104, Carbon Dioxide 26.0, Anion Gap 5, BUN 16, Creatinine 1.20 H, Estim Creat Clear Calc 78.20, Est GFR (MDRD) Af Amer 57 L, Est GFR (MDRD) Non-Af 47 L, BUN/Creatinine Ratio 13.3, Glucose 150 H, Lactic Acid 2.2 H*, Calcium 9.2, Total Bilirubin 0.80, Direct Bilirubin 0.19, AST 10 L, ALT 13, Alkaline Phosphatase 92, Troponin I High Sens 852 H*, Total Protein 6.9, Albumin 3.3, Globulin 3.6, Lipase 25 Micro: Microbiology 01/27/23 08:51 Nasal Secretion SARS-CoV-2 & FLU Antigen (Rapid) - Final Imagaing Radiology Impression Brain CT 01/27/23 08:39 IMPRESSION: Chronic involutional changes of the brain. Electronically Signed: Jesse Huntley MD at 9:28 EST , Chest X-Ray 01/27/23 09:12 IMPRESSION: Stable mild increased markings at the lung bases. No acute abnormality is seen. Electronically Signed: Jesse Huntley MD at 9:41 EST , Assessment & Plan Assessment/Plan (1) Sepsis: QUALIFIERS: Sepsis acute organ dysfunction status: with acute organ dysfunction Sepsis type: sepsis due to unspecified organism Acute renal failure type: with acute tubular necrosis Severe sepsis shock status: without septic shock Severe sepsis acute organ dysfunction type: acute renal failure Qualified Code(s): A41.9 - Sepsis, unspecified organism; R65.20 - Severe sepsis without septic shock; N17.0 - Acute kidney failure with tubular necrosis PLAN: Plan Patient is a 72-year-old lady presented with increasing lethargy workup was consistent with sepsis secondary to acute acute cystitis admitted to a monitored bed for further management 1. Sepsis ? Secondary to acute cystitis evidence of sepsis (patient febrile with temperature of 102.4, respiratory rate of 26,Pulse rate of 120, with evidence of endorgan dysfunction acute kidney injury and lactic acidosis) admitted to monitored bed treatment initiated per protocol with aggressive IV fluid resusc itation after cultures have been sent. Patient response to therapy being monitored with blood pressure as well as serial lactic acid levels 2. Acute cystitis ? Patient started on cefepime cultures sent 3. Acute kidney injury ? Creatinine on admission was 1.20. Patient baseline creatinine from November 2022 was 0.73 started on IV fluid with subsequent monitoring of electrolytes ordered 4. COPD ? Without acute exacerbation aerosol treatment as needed 5. Diabetes mellitus type II -patient's oral hypoglycemics held. Placed on long acting insulin, Accu-Cheks a.c. and at bedtime and covered with sliding scale insulin 6. Class III obesity with BMI of 49.9 ? Complicating care weight loss advised 7. Paroxysmal A-fib ? Patient was in sinus rhythm on admission 8. Obstructive sleep apnea ? Consistent use of PAP therapy encourage 9. Tobacco dependence - Counseled on cessation, offered nicotine patch for tobacco cravings 10. Depression with anxiety ? Patient is on escitalopram as well as bupropion continue 11. Restless leg syndrome ? Patient is on ropinirole continue 12. DVT prophylaxis - On enoxaparin Time spent in the patient's overall evaluation,decision-making process, review of diagnostic data, adjustment of management, discussion with other providers, nursing nursing and ancillary staff involved in patient's care documentation, 76 Minutes Advance planning; did discuss with the patient and family regarding advanced directives as well as CODE STATUS. Did explain the various scenarios involved ( FULL CODE, DNR CCA, DNR CCA with no intubation, and DNR CC and what each meant) patient elected remain full code with CPR and intubation if needed. Order was placed. Time spent on discussion 18 minutes. Sepsis Attestation Sepsis Attestation: Agree w/Sepsis Date exam was performed: 01/27/23 Time exam was performed: 11:53 Possible Source of Sepsis: Genitourinary Sepsis Organ Dysfunction Criteria Present: SBP < 90 mmHg or MAP < 65 mmHg, Lactic Acid > 2 mmol/L and New/Unexplained change in mental status Fluid Resuscitation Fluid resuscitation indicated?: Yes Fluid Resuscitation ordered: 30 ml/kg fluid bolus ordered Sepsis Note Date exam was performed: 01/27/23 Response to fluids: Fluid responsive hypotension Charges/Coding Visit Charges Inpatient E&M: 07476 Init Hosp L3 Procedures Hospitalists Procedures: 50269 Advncd Care Plan 30 Min
[2023-01-27] MEDS: Aspirin 325 MG Tablet PO (11:31)
--- NOTE | 2023-01-27 11:35 | ED.RN ---
2000ml ordered for fluid resuscitation per ED MD
[2023-01-27 12:09] LABS: Troponin-I HS 1612 pg/mL (3.0-54.0)
--- NOTE | 2023-01-27 12:12 | ECHOD_ITS ---
Reason For Study: s/p mi Procedure This was a 2D Doppler, Color Flow transthoracic echocardiogram. The study was technically difficult. PT had difficulty lying still due to RLS. Exam performed portable in ICU/CCU. Left Ventricle Normal LV size. Mild concentric left ventricular hypertrophy. The left ventricular ejection fraction is 65 %. Diastolic function is indeterminate. Right Ventricle Normal right ventricle. Atria The left atrium is mildly enlarged. Normal right atrium. Mitral Valve Severe mitral annular calcification. Mild (1+) mitral valve insufficiency. Tricuspid Valve Mild tricuspid valve insufficiency. Right ventricular systolic pressure estimated to be 35 mmHg. Aortic Valve Aortic sclerosis, no stenosis. Pulmonic Valve The pulmonic valve is not well visualized. Great Vessels Normal aortic root. Pericardium/Pleural Trivial pericardial effusion. MMode/2D Measurements & Calculations LVIDd: 4.8 cm IVSd: 1.2 cm Ao root diam: 2.9 cm LVIDs: 3.6 cm LVPWd: 1.1 cm RVDd: 3.7 cm FS: 25.1 % LAV(MOD-bp): 59.8 ml LVAd ap4: 25.5 cm2 LVAd ap2: 30.2 cm2 LAV(MOD-bp) Indexed: 29.3 ml/m2 LVLd ap4: 7.0 cm LVLd ap2: 7.3 cm LAV(MOD-sp2): 66.4 ml EDV(MOD-sp4): 76.1 ml EDV(MOD-sp2): 105.0 ml LAV(MOD-sp4): 49.6 ml EDV(sp4-el): 78.3 ml EDV(sp2-el): 106.7 ml LVAs ap4: 14.0 cm2 LVAs ap2: 18.8 cm2 LVLs ap4: 5.7 cm LVLs ap2: 6.5 cm ESV(MOD-sp4): 31.0 ml ESV(MOD-sp2): 46.6 ml ESV(sp4-el): 29.0 ml ESV(sp2-el): 46.3 ml EF(MOD-sp4): 59.2 % EF(MOD-sp2): 55.6 % EF(sp4-el): 62.9 % SV(MOD-sp4): 45.1 ml SV(MOD-sp2): 58.4 ml SV(sp4-el): 49.3 ml LA dimension(2D): 3.9 cm LA A4 area: 19.0 cm2 RA A4 area: 15.8 cm2 TAPSE: 2.3 cm Time Measurements MV dec time: 0.21 sec Doppler Measurements & Calculations MV E max santiago: 106.4 cm/sec Lat Peak E' Santiago: 7.3 cm/sec Med Peak E' Santiago: 5.3 cm/sec MV A max santiago: 85.2 cm/sec E/E' lat: 14.7 E/E' med: 19.9 MV E/A: 1.2 MV V2 max: 135.4 cm/sec MV P1/2t max santiago: 135.4 cm/sec Ao V2 max: 159.3 cm/sec MV max P.3 mmHg MV P1/2t: 69.5 msec Ao max P.2 mmHg MV V2 mean: 81.4 cm/sec MV dec slope: 571.1 cm/sec2 Ao V2 mean: 112.0 cm/sec MV mean P.9 mmHg Ao mean P.7 mmHg MV V2 VTI: 26.6 cm MVA(P1/2t): 3.2 cm2 Ao V2 VTI: 34.9 cm AV (velocity ratio): 0.61 LV V1 max: 106.9 cm/sec MR max santiago: 465.3 cm/sec PA V2 max: 75.1 cm/sec LV V1 max P.6 mmHg MR max P.6 mmHg PA V2 mean: 59.5 cm/sec LV V1 mean P.7 mmHg LV V1 mean: 78.6 cm/sec LV V1 VTI: 21.4 cm TR max santiago: 274.4 cm/sec TR max P.1 mmHg ECHO/Echo Complete Interpretation Summary Mild concentric left ventricular hypertrophy. The left ventricular ejection fraction is 65 %. Diastolic function is indeterminate. Severe mitral annular calcification. Mild (1+) mitral valve insufficiency. Aortic sclerosis, no stenosis. Ordering Physician: Maximilian Kitchen Referring Physician: Jesse Curran Performed By: Amelia Giron RDCS, RVT
--- NOTE | 2023-01-27 12:13 | CT_ITS ---
STUDY: CTA CHEST REASON FOR EXAM: Female, 72 years old. Pulmonary embolism RADIATION DOSAGE (If Supplied By Facility): CTDIvol = ( 19.74 ) mGy, DLP = ( 752.70 ) mGycm TECHNIQUE: The examination was performed with the intravenous administration of IV 100mL Isovue-370. Post-processing of the angiographic images was performed, with multiplanar reformation and 3D reconstruction. Individualized dose optimization techniques were used for this CT. COMPARISON: Comparison is made with prior study dated October 20, 2022. FINDINGS: Normal enhancement of the main pulmonary artery and right and left pulmonary arteries. Normal enhancement of the bilateral peripheral pulmonary arteries. There is no demonstrated pulmonary embolism. There is atherosclerotic calcification of the aortic arch with tortuosity. There is no demonstrated aortic dissection. There are calcifications of the coronary arteries. Normal mediastinum. Normal hilar regions. Normal visualized trachea and bronchi. The lungs are well expanded. Emphysematous changes. Small bullous formation seen in the right upper lobe. Stable calcified granuloma in the left lower lobe. There is evidence of scarring and bronchiectasis in the posterior medial aspect of the right middle lobe. Findings suggest mild atelectasis superimposed on scarring in the lower lobes. Normal pleura. Normal chest wall structures. There are degenerative changes of thoracic spine. Stable 1.4 cm hypodensity in the left lobe of the liver suggestive of a small cyst. Calcified splenic granulomas. CT/CTA Chest W/WO Contrast IMPRESSION: No evidence of pulmonary embolism. Mild degree of emphysematous changes with scarring and bronchiectasis as described. Electronically Signed: Jeses Huntley MD at 12:47 EST ,
[2023-01-27] MEDS: Vancomycin HCl 2,000 MG in 0.9% Normal Saline (500mL Bag) 500 ML 250 MG IV (12:39)
[2023-01-27] MEDS: Lactated Ringers 1,000 ML 999 ML IV (12:46)
[2023-01-27 13:00] LABS: Reflex Lactate? Y
[2023-01-27 13:39] LABS: Lactic Acid 1.3 mmol/L (0.4-1.9)
--- NOTE | 2023-01-27 13:50 | ED.RN ---
RADIOLOGY NURSING AT BEDSIDE FOR PICC PLACEMENT
--- NOTE | 2023-01-27 15:25 | ED.RN ---
instructed to notify family member Amie when pt. ready to move to floor, called Amie at this time regarding inpatient room number.
--- NOTE | 2023-01-27 15:37 | SEPSISATNOTE ---
Sepsis Attestation Sepsis Alert: Yes Date exam was performed: 01/27/23 Time exam was performed: 11:53 Possible Source of Sepsis: Genitourinary Sepsis Organ Dysfunction Criteria Present: SBP < 90 mmHg or MAP < 65 mmHg and Lactic Acid > 2 mmol/L Fluid Resuscitation Fluid Resuscitation ordered: 30 ml/kg fluid bolus ordered Sepsis Note Date exam was performed: 01/27/23 Time exam was performed: 15:38 Response to fluids: Fluid responsive hypotension
--- NOTE | 2023-01-27 16:27 | PRO.PCM_ITS ---
Procedure Report Date of Procedure: 01/27/23 Assessment & Plan Assessment/Plan (1) Sepsis: QUALIFIERS: Sepsis type: sepsis due to unspecified organism Sepsis acute organ dysfunction status: with acute organ dysfunction Severe sepsis acute organ dysfunction type: acute renal failure Acute renal failure type: with acute tubular necrosis Severe sepsis shock status: without septic shock Qualified Code(s): A41.9 - Sepsis, unspecified organism; R65.20 - Severe sepsis without septic shock; N17.0 - Acute kidney failure with tubular necrosis Procedures Radiology Radiology Access Procedures: PICC Procedure Time Out Time Out Informed consent given: Yes Consent signed: Yes Time out checklist: patient, procedure, positioning of patient, supplies available, allergies confirmed and team agrees on procedure Time out staff in room: No Time out verified: Yes Time out date: 01/27/23 Time out time: 13:30 PICC Line Consent Screening tool completed:: Yes Consent obtained:: Yes Consent given by (patient or responsible republican):: niece Line successful (if no, document why in comments):: Yes Insertion Reason for Insertion: Poor Venous Access Date of Insertion: 01/27/23 Ok to use: Yes Type of PICC inserted: Dual Power PICC PICC Lot #: [id number] PICC Reference #: [id number] Ultrasound/Equipment Used: Probe Cover Kit Trimmed Length (cm): 53 Insertion Length (cm): 49 Exposed Length (cm): 1 Tip Placement: Caval Atrial Junction Placement Confirmation: 3CG Insertion Vein: Left Basilic Insertion Attempts: 2 Local Anesthesia Used: Lidocaine 1% (in kit) Dressing Applied: Statlock and Tegaderm CHG Arm Measurement above site (in cm): 46 Patient Tolerated Procedure: Well Threading Difficulties: No Comments Comment: PICC line insertion initially attempted on the right basilic. However, the PICC line would not assume a downward descent into the SVC, despite attempts to troubleshoot. Second PICC line insertion attempt on left basilic was successful. Towards the end of the procedure, the patient became restless, complaining of chills. Patient was also complaining of shortness of breath. Primary RN was notified. Patient was placed on nonrebreather, respiratory was called to obtain BiPAP. Charge nurse and ED physician were also at bedside to evaluate. Patient was placed on BiPAP and plan for admission was to be discussed with hospitalist for possible transfer to ICU. Right PICC line was removed and sterile occlusive dressing was applied.
--- NOTE | 2023-01-27 16:27 | ED.RN ---
Dr Kitchen update on pt's change in status and vital signs. Lasix 40 mg iv ordered
[2023-01-27] MEDS: Furosemide 40 MG/4 ML Vial IV (16:29)
--- NOTE | 2023-01-27 18:03 | ED.RN ---
report called to ICU nurseKoko at [id number]
[2023-01-27] MEDS: Albuterol 2.5 MG/3 ML VIAL.NEB. INHALATION (19:17)
[2023-01-27 19:23] LABS: Troponin-I HS 6729 pg/mL (3.0-54.0)
[2023-01-27 20:52] LABS: Troponin-I HS 6714 pg/mL (3.0-54.0)
[2023-01-27 21:35] LABS: Allen Test Positive; Base Excess -2 mmol/L (-2 to +2); Blood Gas Specimen Type ART; Mode Not entered; O2 Delivery Device BiPAP; PEEP 10; PO2 86 mmHG (75-100); RR 12; SITE R Radial; SO2 96 % (95-99); Total Carbon Dioxide 25 mmol/L; pCO2 42.5 mmHg (35-45); pH 7.36 (7.35-7.45)
[2023-01-27] MEDS: 0.9% Saline Lock 10 ML Syringe IV (22:07)
[2023-01-27 22:27] LABS: Bedside Glucose 118 mg/dL (74-106)
[2023-01-27] MEDS: Acetaminophen 325 MG Tablet 650 MG PO (23:10)
[2023-01-28] VITALS (24 sets, daily range): BP systolic 96–156; BP diastolic 51–105; PULSE 75–103; RESP 12–33; TEMP 36.7–38.2; O2SAT 91–100; BMI 49.3
[2023-01-28] MEDS: 0.9% Saline Lock 10 ML Syringe IV ×4 (00:23→23:20)
[2023-01-28 01:21] LABS: Troponin-I HS 4907 pg/mL (3.0-54.0)
[2023-01-28] MEDS: 0.9% Normal Saline (1000mL) 1,000 ML 200 ML IV ×2 (04:26→13:24)
[2023-01-28 04:30] LABS: Absolute Lymphocyte Count 2.14 X10^3/uL (0.83-4.51); Basophil# 0.07 X10^3/uL; Basophil% 0.4 % (0-1); Eosinophil# 0.07 X10^3/uL; Eosinophils% 0.4 % (0-5); Hematocrit 38.2 % (37-47); Hemoglobin 11.9 g/dL (12.0-15.0); Lymphocyte # 2.14 X10^3/ul (0.83-4.51); Lymphocyte % 12.9 % (19-41); Mean Corp Hgb Conc 31.2 g/dL (32-36); Mean Corpuscular Hgb 30.3 pg (27.0-32.0); Mean Corpuscular Volume 97.2 fL (81-99); Monocyte# 1.24 X10^3/uL; Monocyte% 7.5 % (0-10); NRBC Flagged by Analyzer 0 % (0-5); Neutrophil # 12.98 X10^3/uL (2.7-7.7); Neutrophil % 78.3 % (47-70); Platelet Count 196 K/mm3 (150-450); RBC Distribution Width CV 15.5 % (11.6-14.6); RBC Distribution Width SD 55.7 fl (35.1-43.9); Red Blood Count 3.93 M/mm3 (4.2-5.4); White Blood Count 16.6 K/mm3 (4.4-11.0)
--- NOTE | 2023-01-28 04:34 | NURSING ---
pt taken off of bi-pap for a drink at approximately 0230. 1 hour later, this RN offered bi-pap to be placed back on patient. Pt refused at this time despite education taught by RN, pt states lets see how i do on just oxygen
[2023-01-28 05:01] LABS: Anion Gap 3 (5-15); BUN 21 mg/dL (7-18); BUN/Creat Ratio 19.3 RATIO (10-20); Calcium,Total 7.6 mg/dL (8.5-10.1); Chloride 111 mmol/L (98-107); Creatinine, Serum 1.09 mg/dL (0.55-1.02); EST Glomerular Filtration Rate 53 mL/min (>60); Est Glom Filt Rate - Afr Amer 64 mL/min (>60); Estimated Creatinine Clearance 85.12 ml/min; Glucose 102 mg/dL (74-106); Phosphorus 3.7 mg/dL (2.5-4.9); Potassium 4.6 mmol/L (3.5-5.1); Sodium Level 141 mmol/L (136-145)
[2023-01-28] MEDS: Albuterol 2.5 MG/3 ML VIAL.NEB. INHALATION ×3 (06:49→20:19)
[2023-01-28] MEDS: Dextrose 50%-Water 25 GM/50 ML DISP.SYRIN IV (07:57)
[2023-01-28] MEDS: Cefepime HCl 2 GM in 0.9% Normal Saline (100mL MB+) 100 ML IV ×3 (08:41→22:18)
[2023-01-28] MEDS: Acetaminophen 325 MG Tablet 650 MG PO ×2 (08:42→16:25)
[2023-01-28] MEDS: Aspirin E.C. 81 MG Tablet PO (08:42)
[2023-01-28] MEDS: Calcium Carb/Vitamin D 1 TABLET Tablet PO ×2 (08:42→16:25)
[2023-01-28 09:11] LABS: Bedside Glucose 38 mg/dL (74-106)
[2023-01-28 09:11] LABS: Bedside Glucose 65 mg/dL (74-106)
[2023-01-28 09:11] LABS: Bedside Glucose 91 mg/dL (74-106)
--- NOTE | 2023-01-28 09:11 | PN.HOSP_ITS ---
Reason for Visit Reason for Visit: Diagnoses Sepsis, unspecified organism (01/27/23) Acute kidney failure with tubular necrosis (01/27/23) Severe sepsis without septic shock (01/27/23) Subjective Subjective Patient went into respiratory distress thought to be secondary to aggressive fluid resuscitation. Patient did receive Lasix placed on BiPAP and transferred to the intensive care unit. Patient troponin peaked at 6000. Objective Data Objective Data Vital Signs: Vital Signs Temp Pulse Resp BP Pulse Ox O2 Del Method O2 Flow Rate 98.7 F 103 H 22 H 125/63 H 96 Nasal Cannula 5 01/28/23 08:00 01/28/23 08:00 01/28/23 08:00 01/28/23 08:00 01/28/23 08:40 01/28/23 08:40 01/28/23 08:40 FiO2 55 01/28/23 07:00 Oxygen Flow Rate (L/min) 5 Oxygen Delivery Method Nasal Cannula Weight: 113.9 kg Body Mass Index (BMI) 49.3 Intake & Output: Intake and Output for Last 24 Hours 01/26/23 01/27/23 01/28/23 23:59 23:59 23:59 Intake Total 5596.67 / 5596.67 1000 / 1000 Output Total 1840 / 1900 225 / 225 Balance 3756.67 / 3696.67 775 / 775 Lab / Micro Data 01/28/23 04:23 01/28/23 04:23 Labs: Laboratory Results - last 24 hr 01/27/23 08:51: Urine Color Yellow, Urine Clarity Sl. Cloudy, Urine pH 7.0, Ur Specific [place] 1.005, Urine Protein 30 H, Urine Glucose (UA) 1000 H, Urine Ketones Negative, Urine Occult Blood 50 H, Urine Nitrite Negative, Urine Placido irubin Negative, Urine Urobilinogen Normal, Ur Leukocyte Esterase 25 H, Urine RBC 0-5 SEEN, Urine WBC 0-5 SEEN, Ur Squamous Epith Cells 10-25 SEEN, Urine Bacteria 2+, Urine Mucus 0 SEEN 01/27/23 08:56: WBC 10.8, RBC 4.78, Hgb 14.4, Hct 45.3, MCV 94.8, MCH 30.1, MCHC 31.8 L, RDW Std Deviation 53.7 H, RDW Coeff of Penny 15.2 H, Plt Count 200, MPV 11.6, Immature Gran % (Auto) 0.400, Neut % (Auto) 95.3 H, Lymph % (Auto) 3.0 L, [place] % (Auto) 0.7, Eos % (Auto) 0.3, Baso % (Auto) 0.3, Absolute Neuts (auto) 10.3 H, Absolute Lymphs (auto) 0.32 L, Nucleated RBC % 0, Differential Comment COMMENT, PT 13.3, INR 1.0, APTT 25.3, Sodium 135 L, Potassium 4.5, Chloride 104, Carbon Dioxide 26.0, Anion Gap 5, BUN 16, Creatinine 1.20 H, Estim Creat Clear Calc 78.20, Est GFR (MDRD) Af Amer 57 L, Est GFR (MDRD) Non-Af 47 L, BUN/Creatinine Ratio 13.3, Glucose 150 H, Lactic Acid 2.2 H*, Calcium 9.2, Total Bilirubin 0.80, Direct Bilirubin 0.19, AST 10 L, ALT 13, Alkaline Phosphatase 92, Troponin I High Sens 852 H*, Total Protein 6.9, Albumin 3.3, Globulin 3.6, Lipase 25 01/27/23 10:57: Troponin I High Sens 1612 H* 01/27/23 13:05: Lactic Acid 1.3 01/27/23 18:45: Troponin I High Sens 6729 H* 01/27/23 20:21: Troponin I High Sens 6714 H* 01/27/23 22:01: POC Glucose 118 H 01/28/23 00:18: Troponin I High Sens 4907 H* 01/28/23 04:23: WBC 16.6 H, RBC 3.93 L, Hgb 11.9 L, Hct 38.2, MCV 97.2, MCH 30.3, MCHC 31.2 L, RDW Std Deviation 55.7 H, RDW Coeff of Penny 15.5 H, Plt Count 196, MPV 12.0, Immature Gran % (Auto) 0.500, Neut % (Auto) 78.3 H, Lymph % (Auto) 12.9 L, [place] % (Auto) 7.5, Eos % (Auto) 0.4, Baso % (Auto) 0.4, Absolute Neuts (auto) 13.0 H, Absolute Lymphs (auto) 2.14, Nucleated RBC % 0, Sodium 141, Potassium 4.6, Chloride 111 H, Carbon Dioxide 27.0, Anion Gap 3 L, BUN 21 H, Creatinine 1.09 H, Estim Creat Clear Calc 85.12, Est GFR (MDRD) Af Amer 64, Est GFR (MDRD) Non-Af 53 L, BUN/Creatinine Ratio 19.3, Glucose 102, Calcium 7.6 L, Phosphorus 3.7, Magnesium 2.0 Micro: Microbiology 01/27/23 08:56 Blood Culture (Wb) - Venous Blood Culture - Preliminary Gram negative gregg 01/27/23 10:54 Mucosa - Nasopharyngeal Respiratory Panel (PCR) - Final 01/27/23 08:51 Nasal Secretion SARS-CoV-2 & FLU Antigen (Rapid) - Final ABG Data ABG results: ABG 01/27/23 21:32 Specimen Type ART Sample Site R Radial pH 7.36 Bicarbonate Actual 24.0 Total CO2 25 Base Excess -2 O2 Saturation 96 O2 % 35.0 ABG pCO2 42.5 ABG pO2 86 Tobi Test Positive Respiration Rate 12 O2 Delivery Device BiPAP Vent Mode Not entered POC PEEP 10 Radiography Diagnostic Testing: Radiology Impression Brain CT 01/27/23 08:39 IMPRESSION: Chronic involutional changes of the brain. Electronically Signed: Jesse Huntley MD at 9:28 EST , Chest X-Ray 01/27/23 09:12 IMPRESSION: Stable mild increased markings at the lung bases. No acute abnormality is seen. Electronically Signed: Jesse Huntley MD at 9:41 EST , Chest CTA 01/27/23 12:13 IMPRESSION: No evidence of pulmonary embolism. Mild degree of emphysematous changes with scarring and bronchiectasis as described. Electronically Signed: Jesse Huntley MD at 12:47 EST , Physical Exam Narrative GENERAL: Dyspneic at rest HEENT: Atraumatic; normocephalic EYES; Anicteric, Normal Conjunctiva NECK; supple, normal thyroid, RESPIRATORY: Diminished to auscultation CARDIOVASCULAR: Regular S1 S2, GI: soft, normoactive bowel sounds, : No Renal angle tenderness; EXTREMITIES: edema, no clubbing, MUSCULOSKELETAL: no muscle wasting NEURO: Awake; no lateralizing signs. SKIN: No Rash PSYCH; Flat affect Assessment & Plan Assessment/Plan (1) Sepsis: QUALIFIERS: Acute renal failure type: with acute tubular necrosis Sepsis acute organ dysfunction status: with acute organ dysfunction Sepsis type: sepsis due to unspecified organism Severe sepsis acute organ dysfunction type: acute renal failure Severe sepsis shock status: without septic shock Qualified Code(s): A41.9 - Sepsis, unspecified organism; R65.20 - Severe sepsis without septic shock; N17.0 - Acute kidney failure with tubular necrosis PLAN: Plan Patient is a 72-year-old lady presented with increasing lethargy workup was consistent with sepsis secondary to acute acute cystitis admitted to a monitored bed for further management 1. Sepsis ? Secondary to acute cystitis evidence of sepsis (patient febrile with temperature of 102.4, respiratory rate of 26,Pulse rate of 120, with evidence of endorgan dysfunction acute kidney injury and lactic acidosis) admitted to monitored bed treatment initiated per protocol with aggressive IV fluid resuscitation after cultures have been sent. Patient response to therapy being monitored with blood pressure as well as serial lactic acid levels ? 01/28/2023 patient cultures so far positive for gram-negative rods in the blood 2. Acute cystitis ? Patient started on cefepime cultures sent 3. Acute kidney injury ? Creatinine on admission was 1.20. Patient baseline creatinine from November 2022 was 0.73 started on IV fluid with subsequent monitoring of electrolytes ordered ? 01/28/2023; patient on IV fluid with subsequent monitoring of electrolyte 4. Acute hypoxic respiratory failure ? This was evidenced by tachypnea as well as hypoxia secondary to fluid overload patient had to be placed on noninvasive ventilation BiPAP and subsequently transferred to the intensive care unit. Patient has since been weaned off BiPAP as of this a.m. 5. Elevated troponin ? Secondary to suspected myocardial injury from above patient started on heparin drip consult placed to cardiology also ordered 2D echo 6. Diabetes mellitus type II -patient's oral hypoglycemics held. Placed on long acting insulin, Accu-Cheks a.c. and at bedtime and covered with sliding scale insulin 7. COPD ? Without acute exacerbation aerosol treatment as needed 8. Class III obesity with BMI of 49.9 ? Complicating care weight loss advised 9. Paroxysmal A-fib ? Patient was in sinus rhythm on admission 10. Obstructive sleep apnea ? Consistent use of PAP therapy encourage 11. Tobacco dependence - Counseled on cessation, offered nicotine patch for tobacco cravings 12. Depression with anxiety ? Patient is on escitalopram as well as bupropion continue 13. Restless leg syndrome ? Patient is on ropinirole continue 14. DVT prophylaxis - On enoxaparin Time critical Spent in the patient's overall evaluation,decision-making process, review of diagnostic data, adjustment of management, discussion with other providers, nursing nursing and ancillary staff involved in patient's care documentation, 55 minutes Charges/Coding Procedures Hospitalists Procedures: [id number] [facility]
[2023-01-28] MEDS: Escitalopram Oxalate 20 MG Tablet PO (10:56)
[2023-01-28 11:03] LABS: International Normalized Ratio 1.3; Partial Thromboplast Time 32.2 Seconds (24.1-36.2)
[2023-01-28] MEDS: HEPARIN/D5w 25,000 UNITS 25,000 UNITS/250 ML IV.SOLN. 10 UNITS CONT INF (11:15)
[2023-01-28] MEDS: Heparin Injection (Vial) 5,000 UNIT/ML VIAL 4000 UNIT IV (11:18)
[2023-01-28 13:44] LABS: Bedside Glucose 95 mg/dL (74-106)
--- NOTE | 2023-01-28 14:50 | PCM.CONS.C ---
Assessment & Plan Assessment/Plan (1) NSTEMI (non-ST elevated myocardial infarction): PLAN: Likely type II elevation in the setting of sepsis with febrile illness. Continue aspirin. Check echo. (2) Sepsis: QUALIFIERS: Sepsis type: sepsis due to unspecified organism Sepsis acute organ dysfunction status: with acute organ dysfunction Severe sepsis acute organ dysfunction type: acute renal failure Acute renal failure type: with acute tubular necrosis Severe sepsis shock status: without septic shock Qualified Code(s): A41.9 - Sepsis, unspecified organism; R65.20 - Severe sepsis without septic shock; N17.0 - Acute kidney failure with tubular necrosis PLAN: On antibiotics. Continue to manage as per internal medicine/critical care. (3) HTN (hypertension): QUALIFIERS: Hypertension type: essential hypertension Qualified Code(s): I10 - Essential (primary) hypertension PLAN: Monitor. (4) Diabetes mellitus type 2 in obese: (5) Paroxysmal atrial fibrillation: PLAN: Maintaining sinus rhythm. HPI Consult Data Date of Consult: 01/28/23 HPI Narrative Reason for Consultation: NSTEMI HPI Narrative: This lady has history significant for diabetes mellitus, dyslipidemia and paroxysmal atrial fibrillation. She was brought to the hospital with complaints of confusion at home. Workup revealed cystitis. Diagnosis of acute cystitis with sepsis was made. As part of her workup, troponins were checked. These are noted to be elevated ruling her in for NSTEMI. Patient denies any chest pains or shortness of breath. Denies any palpitations. FORMERLY [facility] Medical History Diabetes mellitus type 2 in obese Hypercholesteremia Obstructive sleep apnea Osteoarthritis Palpitations Paroxysmal atrial fibrillation Peripheral vascular disease Vertigo Home Medications insulin glargine 100 unit/mL (3 mL) subcutaneous pen 100 units subcut QHS diabetes 03/14/14 [History Last Taken 11/14/19 23:00] oxycodone-acetaminophen 5 mg-325 mg tablet 1 tab PO Q6H PAIN 04/02/16 [History Last Taken 01/26/23] gabapentin 400 mg capsule 400 mg PO DAILY NEUROPATHY 11/15/19 [History Last Taken 01/26/23] aspirin 81 mg tablet,delayed release 81 mg PO DAILY HEART HEALTH #90 tabs 10/25/20 [Rx Last Taken 01/26/23] empagliflozin 25 mg tablet (Jardiance) 25 mg PO DAILY DIABETES 05/23/21 [History Last Taken 01/26/23] metformin 500 mg tablet,extended release 24 hr 1,000 mg PO DAILY DIABETES 05/23/21 [History Last Taken 01/26/23] ropinirole 0.5 mg tablet 0.5 - 1 mg PO QHS RESTLESS LEGS 05/23/21 [History Last Taken 01/26/23] albuterol sulfate 90 mcg/actuation aerosol inhaler 2 puff inhalation Q4H SHORTNESS OF BREATH 01/27/23 [History Last Taken 01/26/23] bumetanide 1 mg tablet 1 mg PO DAILY EDEMA 01/27/23 [History Last Taken 01/26/23] bupropion HCl 150 mg 24 hr tablet, extended release 150 mg PO DAILY DEPRESSION 01/27/23 [History Last Taken 01/26/23] calcium carbonate 600 mg-vitamin D3 10 mcg (400 unit) tablet 1 tab PO BID SUPPLEMENT 01/27/23 [History Last Taken 01/26/23] escitalopram oxalate 20 mg tablet 20 mg PO DAILY DEPRESSION 01/27/23 [History Last Taken 01/26/23] fluticasone fur. 100 mcg-umeclid 62.5 mcg-vilant 25 mcg inhalat.powder (Trelegy Ellipta) 1 inh inhalation DAILY SHORTNESS OF BREATH/WHEEZING 01/27/23 [History Last Taken 01/26/23] gabapentin 400 mg capsule 800 mg PO QPM NEUROPATHY 01/27/23 [History Last Taken 01/26/23] meloxicam 15 mg tablet 15 mg PO DAILY ARTHRITIS 01/27/23 [History Last Taken 01/26/23] pravastatin 40 mg tablet 40 mg PO QPM CHOLESTEROL 01/27/23 [History Last Taken 01/26/23] ropinirole 0.5 mg tablet 1 mg PO QPM PRN RESTLESS LEGS 01/27/23 [History Last Taken Unknown] Allergy/AdvReac Type Severity Reaction Status Date / Time ampicillin Allergy Hives Verified 01/27/23 08:31 codeine Allergy Hives Verified 01/27/23 08:31 meperidine HCl [From Demerol] Allergy Hives Verified 01/27/23 08:31 Penicillins [PCN] Allergy Hives Verified 01/27/23 08:31 propoxyphene napsylate Allergy Hives Verified 01/27/23 08:31 [From Saira-N] Family History Mother Heart disease Brother Heart disease Grandfather CVA (cerebral vascular accident) Grandmother Myocardial infarction Surgical History History of appendectomy History of cardiac catheterization History of hysterectomy History of knee replacement History of laparoscopic cholecystectomy (~11/2019) History of lumpectomy of both breasts History of tubal ligation Social History Smoking Status: Current every day smoker tobacco type: cigarettes alcohol intake: never substance use type: does not use caffeine: Yes Type: coffee Number of servings: 5 Physical Exam Narrative Appears comfortable. No apparent distress. Heart sounds 1 and 2 are noted. Decreased breath sounds both bases. Alert oriented x 3. No ankle edema. Risk Stratification Risk Stratification Applicable: No Objective Data Vital Signs: Vital Signs Temp Pulse Resp BP Pulse Ox O2 Del Method O2 Flow Rate 99.6 F H 88 18 142/62 H 97 Nasal Cannula 2 01/28/23 13:00 01/28/23 14:16 01/28/23 14:16 01/28/23 13:00 01/28/23 14:16 01/28/23 14:16 01/28/23 14:16 FiO2 55 01/28/23 07:00 Oxygen Flow Rate (L/min) 2 Oxygen Delivery Method Nasal Cannula Weight: 251 lb 1.704 oz Body Mass Index (BMI) 49.3 Intake & Output: Intake and Output for Last 24 Hours 01/26/23 01/27/23 01/28/23 23:59 23:59 23:59 Intake Total 5596.67 / 5596.67 2580 / 2580 Output Total 1840 / 1900 675 / 675 Balance 3756.67 / 3696.67 1905 / 1905 Lab / Micro Data 01/28/23 04:23 01/28/23 04:23 Labs: Laboratory Results - last 24 hr 01/27/23 18:45: Troponin I High Sens 6729 H* 01/27/23 20:21: Troponin I High Sens 6714 H* 01/27/23 22:01: POC Glucose 118 H 01/28/23 00:18: Troponin I High Sens 4907 H* 01/28/23 04:23: WBC 16.6 H, RBC 3.93 L, Hgb 11.9 L, Hct 38.2, MCV 97.2, MCH 30.3, MCHC 31.2 L, RDW Std Deviation 55.7 H, RDW Coeff of Penny 15.5 H, Plt Count 196, MPV 12.0, Immature Gran % (Auto) 0.500, Neut % (Auto) 78.3 H, Lymph % (Auto) 12.9 L, [place] % (Auto) 7.5, Eos % (Auto) 0.4, Baso % (Auto) 0.4, Absolute Neuts (auto) 13.0 H, Absolute Lymphs (auto) 2.14, Nucleated RBC % 0, Sodium 141, Potassium 4.6, Chloride 111 H, Carbon Dioxide 27.0, Anion Gap 3 L, BUN 21 H, Creatinine 1.09 H, Estim Creat Clear Calc 85.12, Est GFR (MDRD) Af Amer 64, Est GFR (MDRD) Non-Af 53 L, BUN/Creatinine Ratio 19.3, Glucose 102, Calcium 7.6 L, Phosphorus 3.7, Magnesium 2.0 01/28/23 07:52: POC Glucose 38 L* 01/28/23 08:20: POC Glucose 65 L 01/28/23 08:52: POC Glucose 91 01/28/23 10:40: PT 16.0 H, INR 1.3, APTT 32.2 01/28/23 13:20: POC Glucose 95 Micro: Microbiology 01/27/23 08:51 Urine Catheter - Das Urine Culture - Preliminary Gram negative gregg Gram negative gregg#2 01/27/23 08:56 Blood Culture (Wb) - Venous Blood Culture - Preliminary Gram negative gregg 01/27/23 10:54 Mucosa - Nasopharyngeal Respiratory Panel (PCR) - Final ABG Data ABG results: ABG 01/27/23 21:32 Specimen Type ART Sample Site R Radial pH 7.36 Bicarbonate Actual 24.0 Total CO2 25 Base Excess -2 O2 Saturation 96 O2 % 35.0 ABG pCO2 42.5 ABG pO2 86 Tobi Test Positive Respiration Rate 12 O2 Delivery Device BiPAP Vent Mode Not entered POC PEEP 10 Cardiology Labs/Tests 01/27/23 21:32: pH 7.36, Bicarbonate Actual 24.0, Base Excess -2, O2 Saturation 96, ABG pCO2 42.5, ABG pO2 86, Tobi Test Positive 01/28/23 04:23: WBC 16.6 H, RBC 3.93 L, Hgb 11.9 L, Hct 38.2, MCV 97.2, MCH 30.3, MCHC 31.2 L, Plt Count 196, MPV 12.0, Immature Gran % (Auto) 0.500, Neut % (Auto) 78.3 H, Lymph % (Auto) 12.9 L, [place] % (Auto) 7.5, Eos % (Auto) 0.4, Baso % (Auto) 0.4, Absolute Neuts (auto) 13.0 H, Nucleated RBC % 0, Sodium 141, Potassium 4.6, Chloride 111 H, Carbon Dioxide 27.0, Anion Gap 3 L, BUN 21 H, Creatinine 1.09 H, Est GFR (MDRD) Af Amer 64, Est GFR (MDRD) Non-Af 53 L, BUN/Creatinine Ratio 19.3, Glucose 102, Calcium 7.6 L, Phosphorus 3.7, Magnesium 2.0 01/28/23 10:40: PT 16.0 H, INR 1.3, APTT 32.2 Rhythm: EKG: ECHO: Stress Test: Cardiac Cath: PCI: CT Surgery: Holter monitor: EPS: PPM: CXR: Chest CT Scan:
[2023-01-28 16:21] LABS: M R Staph aureus DNA By PCR Negative (Negative); Probe Check PASS; Specimen Processing Control PASS
--- NOTE | 2023-01-28 16:35 | CHAPLAIN ---
Type of Pastoral Visit _x__ Initial Visit ___ Follow-up Visit ___ On-call Visit ___ General Patient Visit ___ Spiritual Assessment ___ Family Conference ___ Bereavement ___ Rapid Response ___ Code Blue ___ Other (describe below) Pastoral Care Referral From _x__ Patient ___ Family ___ Nurse ___ Physician ___ Scouts ___ Commercial Analyst ___ Other (describe below) Sacrament/Intervention _x__ Active listening ___ Anointing ___ Druze ___ Bereavement ___ Communion _x__ Jud exploration ___ _x__ Life review _x__ Prayer ___ Reconciliation ___ Sacrament of Sick _x__ Supportive presence ___ Wedding ___ Other (describe below) Pastoral Comments patient is very open to talk and expresses her fears of how her memory is bad right now and that she is missing her family really bad; physical effects and mental / emotional concerns are discussed; pt is reminded of the good events that have led to her receiving care and that improvement has started; time given to listen, console, support, review her resources, discover her jud heritage, and prayer are used to help pt; pt would like future visits if possible
[2023-01-28 16:41] LABS: Bedside Glucose 116 mg/dL (74-106)
[2023-01-28 17:58] LABS: Partial Thromboplast Time 39.4 Seconds (24.1-36.2)
[2023-01-28] MEDS: Heparin Injection (Vial) 5,000 UNIT/ML VIAL IV (18:29)
[2023-01-28] MEDS: Budesonide Respules 0.5 MG/2 ML AMPUL.NEB. INHALATION (20:19)
[2023-01-28] MEDS: Pravastatin 40 MG Tablet PO (22:25)
[2023-01-28 22:44] LABS: Bedside Glucose 105 mg/dL (74-106)
[2023-01-28] MEDS: Ondansetron 4 MG/2 ML Vial IV (23:20)
[2023-01-28] MEDS: Nystatin Powder 15gm Bottle 1 APPLIC TOPICAL (23:37)
[2023-01-29] VITALS (14 sets, daily range): BP systolic 103–167; BP diastolic 68–83; PULSE 82–98; RESP 12–24; TEMP 36.6–36.9; O2SAT 95–99; BMI 49.6
[2023-01-29 01:29] LABS: Partial Thromboplast Time 46.3 Seconds (24.1-36.2)
[2023-01-29] MEDS: Cefepime HCl 2 GM in 0.9% Normal Saline (100mL MB+) 100 ML IV ×3 (05:27→21:24)
[2023-01-29] MEDS: Nystatin Powder 15gm Bottle 1 APPLIC TOPICAL ×3 (05:28→21:28)
[2023-01-29] MEDS: 0.9% Normal Saline (1000mL) 1,000 ML 200 ML IV (05:28)
[2023-01-29] MEDS: Albuterol 2.5 MG/3 ML VIAL.NEB. INHALATION ×3 (07:14→19:37)
[2023-01-29] MEDS: Budesonide Respules 0.5 MG/2 ML AMPUL.NEB. INHALATION ×2 (07:14→19:38)
--- NOTE | 2023-01-29 07:44 | PCM.PN.HOSP ---
Reason for Visit Reason for Visit: Diagnoses Sepsis, unspecified organism (01/27/23) Type 2 diabetes mellitus without complications (01/27/23) Obesity, unspecified (01/27/23) Essential (primary) hypertension (01/27/23) Non-ST elevation (NSTEMI) myocardial infarction (01/27/23) Paroxysmal atrial fibrillation (01/27/23) Acute kidney failure with tubular necrosis (01/27/23) Severe sepsis without septic shock (01/27/23) Subjective Subjective Patient blood cultures positive for Escherichia coli. Patient remains on appropriate antibiotic therapy. Also complains of having experienced restlessness during the night. Objective Data Objective Data Vital Signs: Vital Signs Temp Pulse Resp BP Pulse Ox O2 Del Method O2 Flow Rate 97.9 F 98 23 H 144/83 H 95 Room Air 2 01/29/23 04:00 01/29/23 04:35 01/29/23 04:35 01/29/23 04:00 01/29/23 04:35 01/29/23 04:00 01/28/23 14:16 FiO2 30 01/29/23 04:35 Oxygen Flow Rate (L/min) 2 Oxygen Delivery Method Room Air Weight: 114.7 kg Body Mass Index (BMI) 49.6 Intake & Output: Intake and Output for Last 24 Hours 01/27/23 01/28/23 01/29/23 23:59 23:59 23:59 Intake Total 5596.67 / 5596.67 3972.83 / 4122.83 435.4 / 435.4 Output Total 1840 / 1900 675 / 1025 353 / 353 Balance 3756.67 / 3696.67 3297.83 / 3097.83 82.4 / 82.4 Lab / Micro Data 01/28/23 04:23 01/28/23 04:23 Labs: Laboratory Results - last 24 hr 01/28/23 07:52: POC Glucose 38 L* 01/28/23 08:20: POC Glucose 65 L 01/28/23 08:52: POC Glucose 91 01/28/23 10:40: PT 16.0 H, INR 1.3, APTT 32.2 01/28/23 13:20: POC Glucose 95 01/28/23 14:17: MRSA (PCR) Negative 01/28/23 16:23: POC Glucose 116 H 01/28/23 17:30: APTT 39.4 H 01/28/23 22:24: POC Glucose 105 01/29/23 01:00: APTT 46.3 H Micro: Microbiology 01/28/23 19:40 Stool Stool Occult Blood (TWYLA) - Final 01/28/23 14:17 Mucosa - Nose Influenza Types A,B Direct FA (TWYLA) - Final 01/28/23 14:17 Mucosa - Nasopharyngeal Rapid RSV (DFA) - Final 01/27/23 08:51 Urine Catheter - Das Urine Culture - Preliminary Gram negative gregg Gram negative gregg#2 01/27/23 08:56 Blood Culture (Wb) - Venous Blood Culture - Preliminary Gram negative gregg 01/27/23 10:54 Mucosa - Nasopharyngeal Respiratory Panel (PCR) - Final 01/27/23 08:51 Nasal Secretion SARS-CoV-2 & FLU Antigen (Rapid) - Final Radiography Diagnostic Testing: Radiology Impression Echocardiogram 01/27/23 12:12 Interpretation Summary Mild concentric left ventricular hypertrophy. The left ventricular ejection fraction is 65 %. Diastolic function is indeterminate. Severe mitral annular calcification. Mild (1+) mitral valve insufficiency. Aortic sclerosis, no stenosis. Ordering Physician: Maximilian Kitchen Referring Physician: Jesse Curran Performed By: Amelia Giron, JOHANN, RVT Physical Exam Narrative GENERAL: Dyspneic at rest HEENT: Atraumatic; normocephalic EYES; Anicteric, Normal Conjunctiva NECK; supple, normal thyroid, RESPIRATORY: Diminished to auscultation CARDIOVASCULAR: Regular S1 S2, GI: soft, normoactive bowel sounds, : No Renal angle tenderness; EXTREMITIES: edema, no clubbing, MUSCULOSKELETAL: no muscle wasting NEURO: Awake; no lateralizing signs. SKIN: No Rash PSYCH; Flat affect Assessment & Plan Assessment/Plan (1) Sepsis: QUALIFIERS: Acute renal failure type: with acute tubular necrosis Sepsis acute organ dysfunction status: with acute organ dysfunction Sepsis type: sepsis due to unspecified organism Severe sepsis acute organ dysfunction type: acute renal failure Severe sepsis shock status: without septic shock Qualified Code(s): A41.9 - Sepsis, unspecified organism; R65.20 - Severe sepsis without septic shock; N17.0 - Acute kidney failure with tubular necrosis PLAN: Plan Patient is a 72-year-old lady presented with increasing lethargy workup was consistent with sepsis secondary to acute acute cystitis admitted to a monitored bed for further management 1. Sepsis secondary to acute cystitis with E. coli ? Secondary to acute cystitis evidence of sepsis (patient febrile with temperature of 102.4, respiratory rate of 26,Pulse rate of 120, with evidence of endorgan dysfunction acute kidney injury and lactic acidosis) admitted to monitored bed treatment initiated per protocol with aggressive IV fluid resuscitation after cultures have been sent. Patient response to therapy being monitored with blood pressure as well as serial lactic acid levels ? 01/28/2023 patient cultures so far positive for gram-negative rods in the blood ? 01/29/2023 patient blood cultures positive for E. coli 2. Acute cystitis with E. coli ? Patient started on cefepime cultures sent ? 01/29/2023; patient remains on appropriate antibiotic therapy 3. Acute kidney injury ? Creatinine on admission was 1.20. Patient baseline creatinine from November 2022 was 0.73 started on IV fluid with subsequent monitoring of electrolytes ordered ? 01/28/2023; patient on IV fluid with subsequent monitoring of electrolyte 4. Acute hypoxic respiratory failure ? This was evidenced by tachypnea as well as hypoxia secondary to fluid overload patient had to be placed on noninvasive ventilation BiPAP and subsequently transferred to the intensive care unit. Patient has since been weaned off BiPAP as of this a.m. 5. Elevated troponin ? Secondary to suspected myocardial injury from above patient started on heparin drip consult placed to cardiology also ordered 2D echo ? 01/29/2023 patient was seen in consultation by Dr. Saravia's notes and recommendations reviewed. 6. Diabetes mellitus type II -patient's oral hypoglycemics held. Placed on long acting insulin, Accu-Cheks a.c. and at bedtime and covered with sliding scale insulin 7. COPD ? Without acute exacerbation aerosol treatment as needed 8. Class III obesity with BMI of 49.9 ? Complicating care weight loss advised 9. Paroxysmal A-fib ? Patient was in sinus rhythm on admission 10. Obstructive sleep apnea ? Consistent use of PAP therapy encourage 11. Tobacco dependence - Counseled on cessation, offered nicotine patch for tobacco cravings 12. Depression with anxiety ? Patient is on escitalopram as well as bupropion continue 13. Restless leg syndrome ? Patient is on ropinirole continue 14. DVT prophylaxis - On enoxaparin Time critical Spent in the patient's overall evaluation,decision-making process, review of diagnostic data, adjustment of management, discussion with other providers, nursing nursing and ancillary staff involved in patient's care documentation, 50 minutes Charges/Coding Visit Charges Inpatient E&M: 92472 Subs Hosp L3
[2023-01-29 08:23] LABS: Bedside Glucose 105 mg/dL (74-106)
[2023-01-29] MEDS: HEPARIN/D5w 25,000 UNITS 25,000 UNITS/250 ML IV.SOLN. 13 UNITS CONT INF (08:24)
[2023-01-29 08:58] LABS: Partial Thromboplast Time 46.2 Seconds (24.1-36.2)
[2023-01-29] MEDS: Aspirin E.C. 81 MG Tablet PO (09:39)
[2023-01-29] MEDS: Calcium Carb/Vitamin D 1 TABLET Tablet PO ×2 (09:39→17:25)
[2023-01-29] MEDS: Escitalopram Oxalate 20 MG Tablet PO (09:40)
--- NOTE | 2023-01-29 11:35 | CASEMGMT ---
KWAKU LOW Face to Face with patient for initial transition planning/care coordination assessment. RN MARANDA introduced self and role at [facility]. Patient sitting chair, alert and oriented. Patient willing to participate in assessment and is able to answer all questions appropriately. Care providers, pharmacy, and demographics verified. Patient wishes to discharge home with possible HHC, patient provided with HHC list . Patient states she has no further needs or concerns at this time. CM to follow for discharge planning needs that may arise. PCP: Magdy Specialists: Babita Chandler Pharmacy: [facility] Insurance: [facility] Dual MCR Prescription Benefit: yes Living Will/HPOA: none, interested in completing, SW notified LNOK: nieces Living Arrangements: Patient lives with nieces in a mobile home with 4 steps and railing to enter the home. Patient states she was independent at home prior to current illness. Transportation: self, nieces DME/HHC: Patient has shower chair, walker, rollator, cpap, pulse ox, glucometer, and home oxygen through [facility] at 1lpm at . No previous HHC or SNF. Patient has waiver services with [facility] at Disposition Plan: Patient to discharge home with family support and follow-up plans in plans. Sarai SELBY, RN, CM
[2023-01-29] MEDS: Gabapentin 400 MG Capsule PO ×2 (11:53→17:24)
[2023-01-29] MEDS: Oxycodone/Apap 5/325 Tablet PO ×3 (11:56→23:43)
[2023-01-29 12:01] LABS: Bedside Glucose 97 mg/dL (74-106)
--- NOTE | 2023-01-29 12:06 | CASEMGMT ---
Discharge Planning A list of?HH providers including quality and resource use data and consistent with the patient's preferred geographic region, medical needs, and insurance network was created in [facility] Guide.? This list was provided to the RN MARANDA. Kira Krause, Discharge Planning Asst.
[2023-01-29] MEDS: buPROPion (XL) 150 MG TABLET.XL PO (13:57)
[2023-01-29 16:05] LABS: Absolute Lymphocyte Count 1.26 X10^3/uL (0.83-4.51); Absolute Neutrophil Count 6.6 X10^3/uL (2.0-7.7); Basophil# 0.04 X10^3/uL; Basophil% 0.5 % (0-1); Eosinophils% 1.2 % (0-5); Hematocrit 31.7 % (37-47); Hemoglobin 10.3 g/dL (12.0-15.0); Lymphocyte # 1.26 X10^3/ul (0.83-4.51); Lymphocyte % 14.6 % (19-41); Mean Corp Hgb Conc 32.5 g/dL (32-36); Mean Corpuscular Hgb 31.5 pg (27.0-32.0); Mean Corpuscular Volume 96.9 fL (81-99); Mean Platelet Vol. 12.3 fl (6.2-12.0); Monocyte# 0.62 X10^3/uL; Monocyte% 7.2 % (0-10); NRBC Flagged by Analyzer 0 % (0-5); Neutrophil # 6.55 X10^3/uL (2.7-7.7); Platelet Count 147 K/mm3 (150-450); RBC Distribution Width CV 15.3 % (11.6-14.6); RBC Distribution Width SD 54.3 fl (35.1-43.9); Red Blood Count 3.27 M/mm3 (4.2-5.4); White Blood Count 8.6 K/mm3 (4.4-11.0)
[2023-01-29 16:26] LABS: Anion Gap 0 (5-15); BUN 15 mg/dL (7-18); BUN/Creat Ratio 23.3 RATIO (10-20); Calcium,Total 7.5 mg/dL (8.5-10.1); Chloride 117 mmol/L (98-107); Creatinine, Serum 0.64 mg/dL (0.55-1.02); EST Glomerular Filtration Rate 96 mL/min (>60); Est Glom Filt Rate - Afr Amer 117 mL/min (>60); Estimated Creatinine Clearance 93.43 ml/min; Glucose 93 mg/dL (74-106); Potassium 3.9 mmol/L (3.5-5.1); Sodium Level 142 mmol/L (136-145)
[2023-01-29] MEDS: Enoxaparin 40 MG/0.4 ML Syringe SC (17:24)
[2023-01-29 17:47] LABS: Bedside Glucose 78 mg/dL (74-106)
[2023-01-29] MEDS: 0.9% Saline Lock 10 ML Syringe IV (21:24)
[2023-01-29 22:30] LABS: Bedside Glucose 95 mg/dL (74-106)
[2023-01-29] MEDS: Pravastatin 40 MG Tablet PO (23:21)
[2023-01-30] VITALS (8 sets, daily range): BP systolic 123–127; BP diastolic 57–72; PULSE 74–94; RESP 12–18; TEMP 36.4–36.8; O2SAT 87–99; BMI 49.6
[2023-01-30] MEDS: Cefepime HCl 2 GM in 0.9% Normal Saline (100mL MB+) 100 ML IV ×2 (05:45→13:56)
[2023-01-30] MEDS: Nystatin Powder 15gm Bottle 1 APPLIC TOPICAL ×2 (05:45→13:56)
[2023-01-30] MEDS: Enoxaparin 40 MG/0.4 ML Syringe SC (06:07)
[2023-01-30] MEDS: Oxycodone/Apap 5/325 Tablet PO ×2 (06:07→11:57)
[2023-01-30 06:32] LABS: Bedside Glucose 86 mg/dL (74-106)
[2023-01-30 06:51] LABS: Absolute Lymphocyte Count 1.18 X10^3/uL (0.83-4.51); Absolute Neutrophil Count 5.6 X10^3/uL (2.0-7.7); Basophil# 0.04 X10^3/uL; Basophil% 0.5 % (0-1); Eosinophil# 0.16 X10^3/uL; Eosinophils% 2.1 % (0-5); Hematocrit 33.6 % (37-47); Hemoglobin 10.5 g/dL (12.0-15.0); Lymphocyte # 1.18 X10^3/ul (0.83-4.51); Lymphocyte % 15.4 % (19-41); Mean Corp Hgb Conc 31.3 g/dL (32-36); Mean Corpuscular Hgb 30.3 pg (27.0-32.0); Mean Corpuscular Volume 97.1 fL (81-99); Mean Platelet Vol. 12.6 fl (6.2-12.0); Monocyte# 0.65 X10^3/uL; Monocyte% 8.5 % (0-10); NRBC Flagged by Analyzer 0 % (0-5); Neutrophil % 73.1 % (47-70); Platelet Count 168 K/mm3 (150-450); RBC Distribution Width CV 15.3 % (11.6-14.6); RBC Distribution Width SD 54.1 fl (35.1-43.9); Red Blood Count 3.46 M/mm3 (4.2-5.4); White Blood Count 7.7 K/mm3 (4.4-11.0)
[2023-01-30] MEDS: Budesonide Respules 0.5 MG/2 ML AMPUL.NEB. INHALATION (07:08)
[2023-01-30] MEDS: Albuterol 2.5 MG/3 ML VIAL.NEB. INHALATION (07:08)
[2023-01-30 07:18] LABS: Anion Gap 2 (5-15); BUN 10 mg/dL (7-18); BUN/Creat Ratio 14.7 RATIO (10-20); Calcium,Total 8.1 mg/dL (8.5-10.1); Chloride 113 mmol/L (98-107); Creatinine, Serum 0.68 mg/dL (0.55-1.02); EST Glomerular Filtration Rate 91 mL/min (>60); Est Glom Filt Rate - Afr Amer 110 mL/min (>60); Estimated Creatinine Clearance 93.51 ml/min; Glucose 78 mg/dL (74-106); Potassium 4.2 mmol/L (3.5-5.1); Sodium Level 140 mmol/L (136-145)
--- NOTE | 2023-01-30 08:08 | PCM.PN.HOSP ---
Reason for Visit Reason for Visit: Diagnoses Sepsis, unspecified organism (01/27/23) Type 2 diabetes mellitus without complications (01/27/23) Obesity, unspecified (01/27/23) Essential (primary) hypertension (01/27/23) Non-ST elevation (NSTEMI) myocardial infarction (01/27/23) Paroxysmal atrial fibrillation (01/27/23) Acute kidney failure with tubular necrosis (01/27/23) Severe sepsis without septic shock (01/27/23) Subjective Subjective Seen back to baseline culture results reviewed. Patient will be assessed for possible discharge Objective Data Objective Data Vital Signs: Vital Signs Temp Pulse Resp BP Pulse Ox O2 Del Method O2 Flow Rate 98.2 F 74 15 123/57 H 98 Bi-pap 2 01/30/23 03:40 01/30/23 04:38 01/30/23 04:38 01/30/23 03:40 01/30/23 04:38 01/30/23 03:40 01/29/23 18:06 FiO2 30 01/30/23 04:38 Oxygen Flow Rate (L/min) 2 Oxygen Delivery Method Bi-pap Weight: 114.8 kg Body Mass Index (BMI) 49.6 Intake & Output: Intake and Output for Last 24 Hours 01/28/23 01/29/23 01/30/23 23:59 23:59 23:59 Intake Total 3972.83 / 4122.83 1721.80 / 2121.80 720 / 720 Output Total 675 / 1025 353 / 353 Balance 3297.83 / 3097.83 1368.80 / 1768.80 720 / 720 Lab / Micro Data 01/30/23 05:55 01/30/23 05:55 Labs: Laboratory Results - last 24 hr 01/29/23 08:00: APTT 46.2 H, POC Glucose 105 01/29/23 11:41: POC Glucose 97 01/29/23 15:55: WBC 8.6, RBC 3.27 L, Hgb 10.3 L, Hct 31.7 L, MCV 96.9, MCH 31.5, MCHC 32.5, RDW Std Deviation 54.3 H, RDW Coeff of Penny 15.3 H, Plt Count 147 L, MPV 12.3 H, Immature Gran % (Auto) 0.500, Neut % (Auto) 76.0 H, Lymph % (Auto) 14.6 L, [place] % (Auto) 7.2, Eos % (Auto) 1.2, Baso % (Auto) 0.5, Absolute Neuts (auto) 6.6, Absolute Lymphs (auto) 1.26, Nucleated RBC % 0, Sodium 142, Potassium 3.9, Chloride 117 H, Carbon Dioxide 25.0, Anion Gap 0 L, BUN 15, Creatinine 0.64, Estim Creat Clear Calc 93.43, Est GFR (MDRD) Af Amer 117, Est GFR (MDRD) Non-Af 96, BUN/Creatinine Ratio 23.3 H, Glucose 93, Calcium 7.5 L 01/29/23 17:29: POC Glucose 78 01/29/23 21:27: POC Glucose 95 01/30/23 05:55: WBC 7.7, RBC 3.46 L, Hgb 10.5 L, Hct 33.6 L, MCV 97.1, MCH 30.3, MCHC 31.3 L, RDW Std Deviation 54.1 H, RDW Coeff of Penny 15.3 H, Plt Count 168, MPV 12.6 H, Immature Gran % (Auto) 0.400, Neut % (Auto) 73.1 H, Lymph % (Auto) 15.4 L, [place] % (Auto) 8.5, Eos % (Auto) 2.1, Baso % (Auto) 0.5, Absolute Neuts (auto) 5.6, Absolute Lymphs (auto) 1.18, Nucleated RBC % 0, Sodium 140, Potassium 4.2, Chloride 113 H, Carbon Dioxide 25.0, Anion Gap 2 L, BUN 10, Creatinine 0.68, Estim Creat Clear Calc 93.51, Est GFR (MDRD) Af Amer 110, Est GFR (MDRD) Non-Af 91, BUN/Creatinine Ratio 14.7, Glucose 78, Calcium 8.1 L 01/30/23 06:14: POC Glucose 86 Micro: Microbiology 01/27/23 08:51 Urine Catheter - Das Urine Culture - Final Escherichia coli 01/29/23 01:40 Stool Enteric Bacteriology - Final 01/29/23 13:13 Sputum, Expectorated/Coughed Gram Stain - Final 01/27/23 09:40 Blood Culture (Wb) - Right Forearm Blood Culture - Preliminary No growth in 48 hours. 01/27/23 08:56 Blood Culture (Wb) - Venous Blood Culture - Final Escherichia coli 01/28/23 19:40 Stool Stool Occult Blood (TWYLA) - Final 01/28/23 14:17 Mucosa - Nose Influenza Types A,B Direct FA (TWYLA) - Final 01/28/23 14:17 Mucosa - Nasopharyngeal Rapid RSV (DFA) - Final 01/27/23 10:54 Mucosa - Nasopharyngeal Respiratory Panel (PCR) - Final 01/27/23 08:51 Nasal Secretion SARS-CoV-2 & FLU Antigen (Rapid) - Final Physical Exam Narrative GENERAL: Dyspneic at rest HEENT: Atraumatic; normocephalic EYES; Anicteric, Normal Conjunctiva NECK; supple, normal thyroid, RESPIRATORY: Diminished to auscultation CARDIOVASCULAR: Regular S1 S2, GI: soft, normoactive bowel sounds, : No Renal angle tenderness; EXTREMITIES: edema, no clubbing, MUSCULOSKELETAL: no muscle wasting NEURO: Awake; no lateralizing signs. SKIN: No Rash PSYCH; Flat affect Assessment & Plan Assessment/Plan (1) Sepsis: QUALIFIERS: Acute renal failure type: with acute tubular necrosis Sepsis acute organ dysfunction status: with acute organ dysfunction Sepsis type: sepsis due to unspecified organism Severe sepsis acute organ dysfunction type: acute renal failure Severe sepsis shock status: without septic shock Qualified Code(s): A41.9 - Sepsis, unspecified organism; R65.20 - Severe sepsis without septic shock; N17.0 - Acute kidney failure with tubular necrosis PLAN: Plan Patient is a 72-year-old lady presented with increasing lethargy workup was consistent with sepsis secondary to acute acute cystitis admitted to a monitored bed for further management 1. Sepsis secondary to acute cystitis with E. coli ? Secondary to acute cystitis evidence of sepsis (patient febrile with temperature of 102.4, respiratory rate of 26,Pulse rate of 120, with evidence of endorgan dysfunction acute kidney injury and lactic acidosis) admitted to monitored bed treatment initiated per protocol with aggressive IV fluid resuscitation after cultures have been sent. Patient response to therapy being monitored with blood pressure as well as serial lactic acid levels ? 01/28/2023 patient cultures so far positive for gram-negative rods in the blood ? 01/29/2023 patient blood cultures positive for E. coli 2. Acute cystitis with E. coli ? Patient started on cefepime cultures sent ? 01/29/2023; patient remains on appropriate antibiotic therapy 3. Acute kidney injury ? Creatinine on admission was 1.20. Patient baseline creatinine from November 2022 was 0.73 started on IV fluid with subsequent monitoring of electrolytes ordered ? 01/28/2023; patient on IV fluid with subsequent monitoring of electrolyte 4. Acute hypoxic respiratory failure ? This was evidenced by tachypnea as well as hypoxia secondary to fluid overload patient had to be placed on noninvasive ventilation BiPAP and subsequently transferred to the intensive care unit. Patient has since been weaned off BiPAP as of this a.m. 5. Elevated troponin ? Secondary to suspected myocardial injury from above patient started on heparin drip consult placed to cardiology also ordered 2D echo ? 01/29/2023 patient was seen in consultation by Dr. Saravia's notes and recommendations reviewed. 6. Diabetes mellitus type II -patient's oral hypoglycemics held. Placed on long acting insulin, Accu-Cheks a.c. and at bedtime and covered with sliding scale insulin 7. COPD ? Without acute exacerbation aerosol treatment as needed 8. Class III obesity with BMI of 49.9 ? Complicating care weight loss advised 9. Paroxysmal A-fib ? Patient was in sinus rhythm on admission 10. Obstructive sleep apnea ? Consistent use of PAP therapy encourage 11. Tobacco dependence - Counseled on cessation, offered nicotine patch for tobacco cravings 12. Depression with anxiety ? Patient is on escitalopram as well as bupropion continue 13. Restless leg syndrome ? Patient is on ropinirole continue 14. DVT prophylaxis - On enoxaparin Time critical Spent in the patient's overall evaluation,decision-making process, review of diagnostic data, adjustment of management, discussion with other providers, nursing nursing and ancillary staff involved in patient's care documentation, 35 minutes Charges/Coding Visit Charges Inpatient E&M: 03134 Subs Hosp L2
[2023-01-30] MEDS: Gabapentin 400 MG Capsule PO (09:49)
[2023-01-30] MEDS: Aspirin E.C. 81 MG Tablet PO (09:51)
[2023-01-30] MEDS: Calcium Carb/Vitamin D 1 TABLET Tablet PO (10:01)
[2023-01-30] MEDS: buPROPion (XL) 150 MG TABLET.XL PO (10:01)
[2023-01-30] MEDS: Escitalopram Oxalate 20 MG Tablet PO (10:01)
--- NOTE | 2023-01-30 10:56 | DS.PCM_ITS ---
Providers Date of Admission: 01/27/23 Date of Discharge: 01/30/23 Primary Care Physician: Dr. Jesse Curran, DO Consultations 01/27/23 12:12 Consult: Cardiology Routine Consulting Provider: Michael Saravia Reason for Consult: Elevated troponin EMERGENT Consult: No MD Notified: Yes Date Notified: 01/27/23 Time Notified: 12:13 Method of Notification: ED Physician Initiated Reason For Visit: SEPSIS Diagnosis Discharge Diagnosis (1) Sepsis: Status: Acute Code(s): A41.9 - Sepsis, unspecified organism Qualifiers: Sepsis type: sepsis due to unspecified organism Sepsis acute organ dysfunction status: with acute organ dysfunction Severe sepsis acute organ dysfunction type: acute renal failure Acute renal failure type: with acute tubular necrosis Severe sepsis shock status: without septic shock Qualified Code(s): A41.9 - Sepsis, unspecified organism; R65.20 - Severe sepsis without septic shock; N17.0 - Acute kidney failure with tubular necrosis Plan Patient is a 72-year-old lady presented with increasing lethargy workup was consistent with sepsis secondary to acute acute cystitis admitted to a monitored bed for further management 1. Sepsis secondary to acute cystitis with E. coli ? Secondary to acute cystitis evidence of sepsis (patient febrile with temperature of 102.4, respiratory rate of 26,Pulse rate of 120, with evidence of endorgan dysfunction acute kidney injury and lactic acidosis) admitted to monitored bed treatment initiated per protocol with aggressive IV fluid resuscitation after cultures have been sent. Patient response to therapy being monitored with blood pressure as well as serial lactic acid levels ? 01/28/2023 patient cultures so far positive for gram-negative rods in the blood ? 01/29/2023 patient blood cultures positive for E. coli 2. Acute cystitis with E. coli ? Patient started on cefepime cultures sent ? 01/29/2023; patient remains on appropriate antibiotic therapy 3. Acute kidney injury ? Creatinine on admission was 1.20. Patient baseline creatinine from November 2022 was 0.73 started on IV fluid with subsequent monitoring of electrolytes ordered ? 01/28/2023; patient on IV fluid with subsequent monitoring of electrolyte 4. Acute hypoxic respiratory failure ? This was evidenced by tachypnea as well as hypoxia secondary to fluid overload patient had to be placed on noninvasive ventilation BiPAP and subsequently transferred to the intensive care unit. Patient has since been weaned off BiPAP as of this a.m. 5. Elevated troponin ? Secondary to suspected myocardial injury from above patient started on heparin drip consult placed to cardiology also ordered 2D echo ? 01/29/2023 patient was seen in consultation by Dr. Saravia's notes and recommendations reviewed. 6. Diabetes mellitus type II -patient's oral hypoglycemics held. Placed on long acting insulin, Accu-Cheks a.c. and at bedtime and covered with sliding scale insulin 7. COPD ? Without acute exacerbation aerosol treatment as needed 8. Class III obesity with BMI of 49.9 ? Complicating care weight loss advised 9. Paroxysmal A-fib ? Patient was in sinus rhythm on admission 10. Obstructive sleep apnea ? Consistent use of PAP therapy encourage 11. Tobacco dependence - Counseled on cessation, offered nicotine patch for tobacco cravings 12. Depression with anxiety ? Patient is on escitalopram as well as bupropion continue 13. Restless leg syndrome ? Patient is on ropinirole continue 14. DVT prophylaxis - On enoxaparin Time critical Spent in the patient's overall evaluation,decision-making process, review of diagnostic data, adjustment of management, discussion with other providers, nursing nursing and ancillary staff involved in patient's care documentation, 35 minutes Medications at Discharge Home Medications insulin glargine 100 unit/mL (3 mL) subcutaneous pen 100 units subcut QHS diabetes 03/14/14 oxycodone-acetaminophen 5 mg-325 mg tablet 1 tab PO Q6H PAIN 04/02/16 gabapentin 400 mg capsule 400 mg PO DAILY NEUROPATHY 11/15/19 aspirin 81 mg tablet,delayed release 81 mg PO DAILY HEART HEALTH #90 tabs 10/25/20 empagliflozin 25 mg tablet (Jardiance) 25 mg PO DAILY DIABETES 05/23/21 metformin 500 mg tablet,extended release 24 hr 1,000 mg PO DAILY DIABETES 05/23/21 ropinirole 0.5 mg tablet 0.5 - 1 mg PO QHS RESTLESS LEGS 05/23/21 albuterol sulfate 90 mcg/actuation aerosol inhaler 2 puff inhalation Q4H SHORTNESS OF BREATH 01/27/23 bumetanide 1 mg tablet 1 mg PO DAILY EDEMA 01/27/23 bupropion HCl 150 mg 24 hr tablet, extended release 150 mg PO DAILY DEPRESSION 01/27/23 calcium carbonate 600 mg-vitamin D3 10 mcg (400 unit) tablet 1 tab PO BID SUPPLEMENT 01/27/23 escitalopram oxalate 20 mg tablet 20 mg PO DAILY DEPRESSION 01/27/23 fluticasone fur. 100 mcg-umeclid 62.5 mcg-vilant 25 mcg inhalat.powder (Trelegy Ellipta) 1 inh inhalation DAILY SHORTNESS OF BREATH/WHEEZING 01/27/23 gabapentin 400 mg capsule 800 mg PO QPM NEUROPATHY 01/27/23 meloxicam 15 mg tablet 15 mg PO DAILY ARTHRITIS 01/27/23 pravastatin 40 mg tablet 40 mg PO QPM CHOLESTEROL 01/27/23 ropinirole 0.5 mg tablet 1 mg PO QPM PRN RESTLESS LEGS 01/27/23 cefdinir 300 mg capsule 300 mg PO BID #14 caps 01/30/23 Hospital Course Summary of Care Provided Minutes Spent on Discharge: 35 Physical Exam Narrative GENERAL: Cooperative no acute distress HEENT: Atraumatic; normocephalic EYES; Anicteric, Normal Conjunctiva NECK; supple, normal thyroid, RESPIRATORY: Diminished to auscultation CARDIOVASCULAR: Regular S1 S2, GI: soft, normoactive bowel sounds, : No Renal angle tenderness; EXTREMITIES: edema, no clubbing, MUSCULOSKELETAL: no muscle wasting NEURO: Awake; no lateralizing signs. SKIN: No Rash PSYCH; Flat affect Weight / BMI Weight Weight: 114.8 kg Body Mass Index (BMI) 49.6 ABG / Lab / Microbiology Data 01/30/23 05:55 01/30/23 05:55 Laboratory: Laboratory Results - last 24 hr 01/29/23 11:41: POC Glucose 97 01/29/23 15:55: WBC 8.6, RBC 3.27 L, Hgb 10.3 L, Hct 31.7 L, MCV 96.9, MCH 31.5, MCHC 32.5, RDW Std Deviation 54.3 H, RDW Coeff of Penny 15.3 H, Plt Count 147 L, MPV 12.3 H, Immature Gran % (Auto) 0.500, Neut % (Auto) 76.0 H, Lymph % (Auto) 14.6 L, [place] % (Auto) 7.2, Eos % (Auto) 1.2, Baso % (Auto) 0.5, Absolute Neuts (auto) 6.6, Absolute Lymphs (auto) 1.26, Nucleated RBC % 0, Sodium 142, Potassium 3.9, Chloride 117 H, Carbon Dioxide 25.0, Anion Gap 0 L, BUN 15, Creatinine 0.64, Estim Creat Clear Calc 93.43, Est GFR (MDRD) Af Amer 117, Est GFR (MDRD) Non-Af 96, BUN/Creatinine Ratio 23.3 H, Glucose 93, Calcium 7.5 L 01/29/23 17:29: POC Glucose 78 01/29/23 21:27: POC Glucose 95 01/30/23 05:55: WBC 7.7, RBC 3.46 L, Hgb 10.5 L, Hct 33.6 L, MCV 97.1, MCH 30.3, MCHC 31.3 L, RDW Std Deviation 54.1 H, RDW Coeff of Penny 15.3 H, Plt Count 168, MPV 12.6 H, Immature Gran % (Auto) 0.400, Neut % (Auto) 73.1 H, Lymph % (Auto) 15.4 L, [place] % (Auto) 8.5, Eos % (Auto) 2.1, Baso % (Auto) 0.5, Absolute Neuts (auto) 5.6, Absolute Lymphs (auto) 1.18, Nucleated RBC % 0, Sodium 140, Potassium 4.2, Chloride 113 H, Carbon Dioxide 25.0, Anion Gap 2 L, BUN 10, Creatinine 0.68, Estim Creat Clear Calc 93.51, Est GFR (MDRD) Af Amer 110, Est GFR (MDRD) Non-Af 91, BUN/Creatinine Ratio 14.7, Glucose 78, Calcium 8.1 L 01/30/23 06:14: POC Glucose 86 Microbiology: Microbiology 01/27/23 08:51 Urine Catheter - Das Urine Culture - Final Escherichia coli 01/29/23 01:40 Stool Enteric Bacteriology - Final 01/29/23 13:13 Sputum, Expectorated/Coughed Gram Stain - Final 01/27/23 09:40 Blood Culture (Wb) - Right Forearm Blood Culture - Preliminary No growth in 48 hours. 01/27/23 08:56 Blood Culture (Wb) - Venous Blood Culture - Final Escherichia coli 01/28/23 19:40 Stool Stool Occult Blood (TWYLA) - Final 01/28/23 14:17 Mucosa - Nose Influenza Types A,B Direct FA (TWYLA) - Final 01/28/23 14:17 Mucosa - Nasopharyngeal Rapid RSV (DFA) - Final 01/27/23 10:54 Mucosa - Nasopharyngeal Respiratory Panel (PCR) - Final 01/27/23 08:51 Nasal Secretion SARS-CoV-2 & FLU Antigen (Rapid) - Final D/C Instructions Discharge Diet: 1800 Calorie Control Diet Discharge Activity: Return to Normal Activity Call your doctor if you observe: Fever of 101 or Higher, Shortness of breath, Fainting spells and Chest pain Meaningful Use Info Meaningful Use Diagnoses (Choose all that apply): None applicable Discharge Plan Admission Admit Date/Time: 01/27/23 13:11 Attending Provider: Maximilian Kitchen Primary Care Provider: Jesse Curran Consulting Providers: Michael Saravia Discharge Orders/Prescriptions Prescriptions: New cefdinir 300 mg capsule 300 mg PO BID Qty: 14 0RF Continued insulin glargine 100 UNITS/ML insulin pen 100 units SC QHS Patient Comments: PTS FAMILY MEMBER STATES THAT THE PT IS SUPPOSED TO BE USING INSULIN BUT THEY HAVE NOT BEEN DOING THAT. UNSURE OF WHEN THE PT LAST USED THEIR INSULIN. ( OF 01-27-23) oxycodone-acetaminophen 1 TABLET tablet 1 tab PO Q6H gabapentin 400 MG capsule 400 mg PO DAILY ropinirole 0.5 mg tablet 0.5 - 1 mg PO QHS Patient Comments: TAKE TWO TABLETS (1MG) BY MOUTH ONCE EVERY EVENING IF NEEDED. TAKE AN ADDITIONAL 1-2 TABLETS (0.5MG-1MG) AT BEDTIME. metformin 500 mg tablet extended release 24 hr 1,000 mg PO DAILY Jardiance 25 mg tablet 25 mg PO DAILY ropinirole 0.5 mg tablet 1 mg PO QPM PRN (Reason: RESTLESS LEGS) Rx Instructions: TAKE TWO TABLETS (1MG) BY MOUTH ONCE EVERY EVENING IF NEEDED. TAKE AN ADDITIONAL 1-2 TABLETS (0.5MG-1MG) AT BEDTIME. albuterol sulfate 90 mcg/actuation HFA aerosol inhaler 2 puff INHALATION Q4H bumetanide 1 mg tablet 1 mg PO DAILY bupropion HCl 150 mg tablet extended release 24 hr 150 mg PO DAILY calcium carbonate-vitamin D3 600 mg-10 mcg (400 unit) tablet 1 tab PO BID Trelegy Ellipta 100-62.5-25 mcg blister with device 1 inh INHALATION DAILY meloxicam 15 mg tablet 15 mg PO DAILY pravastatin 40 mg tablet 40 mg PO QPM escitalopram oxalate 20 mg tablet 20 mg PO DAILY gabapentin 400 mg capsule 800 mg PO QPM aspirin 81 mg tablet,delayed release (DR/EC) 81 mg PO DAILY Qty: 90 3RF Referrals / Follow Up: Jesse Curran DO [Primary Care Provider] - In 1 Week Disposition Disposition (needs filled in before D/C Order can be placed): Home, Self Care Charges/Coding Visit Charges Inpatient E&M: 25339 Disch Hosp >30min
--- NOTE | 2023-01-30 11:22 | PN.CARD_ITS ---
Subjective Subjective Denies any complaints. Objective Data Vital Signs: Vital Signs Temp Pulse Resp BP Pulse Ox O2 Del Method O2 Flow Rate 97.8 F 94 16 127/66 H 99 Nasal Cannula 3 01/30/23 09:45 01/30/23 09:45 01/30/23 09:45 01/30/23 09:45 01/30/23 09:45 01/30/23 09:45 01/30/23 09:45 FiO2 30 01/30/23 04:38 Oxygen Flow Rate (L/min) 3 Oxygen Delivery Method Nasal Cannula Weight: 253 lb 1.451 oz Body Mass Index (BMI) 49.6 Intake & Output: Intake and Output for Last 24 Hours 01/28/23 01/29/23 01/30/23 23:59 23:59 23:59 Intake Total 3972.83 / 4122.83 1721.80 / 2121.80 720 / 720 Output Total 675 / 1025 353 / 353 Balance 3297.83 / 3097.83 1368.80 / 1768.80 720 / 720 Lab / Micro Data 01/30/23 05:55 01/30/23 05:55 Labs: Laboratory Results - last 24 hr 01/29/23 11:41: POC Glucose 97 01/29/23 15:55: WBC 8.6, RBC 3.27 L, Hgb 10.3 L, Hct 31.7 L, MCV 96.9, MCH 31.5, MCHC 32.5, RDW Std Deviation 54.3 H, RDW Coeff of Penny 15.3 H, Plt Count 147 L, MPV 12.3 H, Immature Gran % (Auto) 0.500, Neut % (Auto) 76.0 H, Lymph % (Auto) 14.6 L, [place] % (Auto) 7.2, Eos % (Auto) 1.2, Baso % (Auto) 0.5, Absolute Neuts (auto) 6.6, Absolute Lymphs (auto) 1.26, Nucleated RBC % 0, Sodium 142, Potassium 3.9, Chloride 117 H, Carbon Dioxide 25.0, Anion Gap 0 L, BUN 15, Creatinine 0.64, Estim Creat Clear Calc 93.43, Est GFR (MDRD) Af Amer 117, Est GFR (MDRD) Non-Af 96, BUN/Creatinine Ratio 23.3 H, Glucose 93, Calcium 7.5 L 01/29/23 17:29: POC Glucose 78 01/29/23 21:27: POC Glucose 95 01/30/23 05:55: WBC 7.7, RBC 3.46 L, Hgb 10.5 L, Hct 33.6 L, MCV 97.1, MCH 30.3, MCHC 31.3 L, RDW Std Deviation 54.1 H, RDW Coeff of Penny 15.3 H, Plt Count 168, MPV 12.6 H, Immature Gran % (Auto) 0.400, Neut % (Auto) 73.1 H, Lymph % (Auto) 15.4 L, [place] % (Auto) 8.5, Eos % (Auto) 2.1, Baso % (Auto) 0.5, Absolute Neuts (auto) 5.6, Absolute Lymphs (auto) 1.18, Nucleated RBC % 0, Sodium 140, Potassium 4.2, Chloride 113 H, Carbon Dioxide 25.0, Anion Gap 2 L, BUN 10, Creatinine 0.68, Estim Creat Clear Calc 93.51, Est GFR (MDRD) Af Amer 110, Est GFR (MDRD) Non-Af 91, BUN/Creatinine Ratio 14.7, Glucose 78, Calcium 8.1 L 01/30/23 06:14: POC Glucose 86 Micro: Microbiology 01/27/23 08:51 Urine Catheter - Das Urine Culture - Final Escherichia coli 01/29/23 01:40 Stool Enteric Bacteriology - Final 01/29/23 13:13 Sputum, Expectorated/Coughed Gram Stain - Final 01/27/23 09:40 Blood Culture (Wb) - Right Forearm Blood Culture - Preliminary No growth in 48 hours. 01/27/23 08:56 Blood Culture (Wb) - Venous Blood Culture - Final Escherichia coli Cardiology Labs/Tests 01/29/23 15:55: WBC 8.6, RBC 3.27 L, Hgb 10.3 L, Hct 31.7 L, MCV 96.9, MCH 31.5, MCHC 32.5, Plt Count 147 L, MPV 12.3 H, Immature Gran % (Auto) 0.500, Neut % (Auto) 76.0 H, Lymph % (Auto) 14.6 L, [place] % (Auto) 7.2, Eos % (Auto) 1.2, Baso % (Auto) 0.5, Absolute Neuts (auto) 6.6, Nucleated RBC % 0, Sodium 142, Potassium 3.9, Chloride 117 H, Carbon Dioxide 25.0, Anion Gap 0 L, BUN 15, Creatinine 0.64, Est GFR (MDRD) Af Amer 117, Est GFR (MDRD) Non-Af 96, BUN/Creatinine Ratio 23.3 H, Glucose 93, Calcium 7.5 L 01/30/23 05:55: WBC 7.7, RBC 3.46 L, Hgb 10.5 L, Hct 33.6 L, MCV 97.1, MCH 30.3, MCHC 31.3 L, Plt Count 168, MPV 12.6 H, Immature Gran % (Auto) 0.400, Neut % (Auto) 73.1 H, Lymph % (Auto) 15.4 L, [place] % (Auto) 8.5, Eos % (Auto) 2.1, Baso % (Auto) 0.5, Absolute Neuts (auto) 5.6, Nucleated RBC % 0, Sodium 140, Potassium 4.2, Chloride 113 H, Carbon Dioxide 25.0, Anion Gap 2 L, BUN 10, Creatinine 0.68, Est GFR (MDRD) Af Amer 110, Est GFR (MDRD) Non-Af 91, BUN/Creatinine Ratio 14.7, Glucose 78, Calcium 8.1 L Rhythm: EKG: ECHO: Stress Test: Cardiac Cath: PCI: CT Surgery: Holter monitor: EPS: PPM: CXR: Chest CT Scan: Physical Exam Narrative Appears comfortable. No apparent distress. Heart sounds 1 and 2 are noted. Chest clear to auscultation bilaterally.. Alert oriented x 3. No ankle edema. Assessment & Plan Assessment/Plan (1) NSTEMI (non-ST elevated myocardial infarction): PLAN: Likely type II elevation in the setting of sepsis with febrile illness. Continue aspirin. Normal LV systolic function. Start low-dose beta-blockers. Recommend pharmacological stress test as outpatient. (2) Sepsis: QUALIFIERS: Sepsis type: sepsis due to unspecified organism Sepsis acute organ dysfunction status: with acute organ dysfunction Severe sepsis acute organ dysfunction type: acute renal failure Acute renal failure type: with acute tubular necrosis Severe sepsis shock status: without septic shock Qualified Code(s): A41.9 - Sepsis, unspecified organism; R65.20 - Severe sepsis without septic shock; N17.0 - Acute kidney failure with tubular necrosis PLAN: On antibiotics. Continue to manage as per internal medicine/critical care. (3) HTN (hypertension): QUALIFIERS: Hypertension type: essential hypertension Qualified Code(s): I10 - Essential (primary) hypertension PLAN: Monitor. (4) Diabetes mellitus type 2 in obese:
[2023-01-30] MEDS: Metoprolol Tartrate 25 MG Tablet 12.5 MG PO (12:03)
--- NOTE | 2023-01-30 12:05 | CASEMGMT ---
KWAKU CM into pt room, pt sitting up in chair. Pt gave the following HHC for preference: [facility]. [facility]. [facility] 3. [facility]. Pt is dc'ing today, she is aware that HHC will be set up on Wednesday. Pt states she will have people staying with her and will be fine.
[2023-01-30 12:28] LABS: Bedside Glucose 91 mg/dL (74-106)
[2023-01-30 17:55] LABS: Bedside Glucose 81 mg/dL (74-106)
--- NOTE | 2023-02-01 09:41 | CASEMGMT ---
Addendum entered by Kira Krause 02/01/23 11:42: Discharge Planning Rec'd call from patient. [facility] Patiend provided updated contact number (niiveth phone). Msg sent via [facility] with new phone number. Kira Krause, Discharge Planning Asst. Addendum entered by Kira Krause 02/01/23 11:38: Discharge Planning Patient has been accepted by [facility] with soc within 48hrs. This editorial writer attempted to update patient with number provide but it was out of service. A vm was left for patients niece who is listed as an emergency contact. KWAKU LOW updated. Kira Krause, Discharge Planning Asst. Original Note: Discharge Planning HH referral sent to [facility], [facility], and [facility]. Kira Krause, Discharge Planning Asst.
== END 2023-01-30 17:56 | disposition home health service (06) | DRG 871 ==
LOC: ED 11:19 → PCU 15:29 → ICU 17:21 → PCU 01-30 10:59
PROVIDERS: Internal Medicine; Admitting Provider Internal Medicine; Emergency Provider Emergency Medicine; PCP Student in an Organized Health Care Education/Training Program; Referring Provider Emergency Medicine; Visit Provider Internal Medicine
DX: A41.51 Sepsis due to Escherichia coli [E. coli] (principal); J96.01 Acute respiratory failure with hypoxia; N17.0 Acute kidney failure with tubular necrosis; I5A Non-ischemic myocardial injury (non-traumatic); Z68.42 Body mass index [BMI] 45.0-49.9, adult; N30.00 Acute cystitis without hematuria; E11.51 Type 2 diabetes mellitus with diabetic peripheral angiopathy without gangrene; I48.0 Paroxysmal atrial fibrillation; G25.81 Restless legs syndrome; J44.9 Chronic obstructive pulmonary disease, unspecified; E66.01 Morbid (severe) obesity due to excess calories; Z79.4 Long term (current) use of insulin; R65.20 Severe sepsis without septic shock; I10 Essential (primary) hypertension; F32.A Depression, unspecified; E78.00 Pure hypercholesterolemia, unspecified; G47.33 Obstructive sleep apnea (adult) (pediatric); F41.9 Anxiety disorder, unspecified; F17.210 Nicotine dependence, cigarettes, uncomplicated; E87.70 Fluid overload, unspecified; Z79.82 Long term (current) use of aspirin; Z79.84 Long term (current) use of oral hypoglycemic drugs; Z79.51 Long term (current) use of inhaled steroids; Z79.899 Other long term (current) drug therapy
CPT/HCPCS: 36415; 36569; 36600; 51702; 70450; 71045; 71275; 80048; 80053; 80061; 80076; 81001; 82274; 82607; 82803; 82962; 83605; 83690; 83735; 84100; 84439; 84443; 84484; 85025; 85027; 85610; 85730; 87040; 87070; 87077; 87086; 87088; 87177; 87186; 87205; 87209; 87329; 87428; 87506; 87633; 87641; 87804; 87807; 93005; 93306; 94002; 94003; 94640; 94762; 97162; 97166; 97802; 99285; 99406; J7030; J7040; J7050; J7120; Q9957; Q9967; A4216; J1940; J2405

== ENCOUNTER → 2023-04-20 | Outpatient (CLI) | payer MEDICARE, MEDICAID, SELFPAY ==
[2023-04-20 13:19] LABS: Hematocrit 43.7 % (37-47); Hemoglobin 13.6 g/dL (12.0-15.0); Mean Corp Hgb Conc 31.1 g/dL (32-36); Mean Corpuscular Hgb 29.9 pg (27.0-32.0); Mean Platelet Vol. 11.5 fl (6.2-12.0); Platelet Count 320 K/mm3 (150-450); RBC Distribution Width SD 49.8 fl (35.1-43.9); Red Blood Count 4.55 M/mm3 (4.2-5.4); White Blood Count 8.1 K/mm3 (4.4-11.0)
[2023-04-20 13:50] LABS: BNP,B-Type NATRIURETIC PEPTIDE 106.6 pg/mL (0-100)
[2023-04-20 13:54] LABS: Vitamin B12 655 pg/mL (211-911); Vitamin D,25 Hydroxy 26.1 ng/mL
[2023-04-20 13:58] LABS: Hemoglobin A1c 5.8 % (3.8-5.6)
[2023-04-20 14:43] LABS: Microalbumin,Random Urine 10.4 mg/L (NO RANGE EST.); Microalbumin:Creatinine Ratio 8.3 mg/g CRE (<30 mg/g CRE)
[2023-04-20 14:48] LABS: AST(SGOT) 10 U/L (15-37); Alanine Aminotransfer ALT/SGPT 14 U/L (13-56); Albumin, Serum 3.4 g/dL (3.2-5.0); Alkaline Phosphatase 102 U/L (45-117); Anion Gap 1 (5-15); BUN 28 mg/dL (7-18); BUN/Creat Ratio 25.9 RATIO (10-20); Calcium,Total 9.6 mg/dL (8.5-10.1); Chloride 106 mmol/L (98-107); Cholesterol 191 mg/dL (200); Creatinine, Serum 1.08 mg/dL (0.55-1.02); EST Glomerular Filtration Rate 53 mL/min (>60); Est Glom Filt Rate - Afr Amer 64 mL/min (>60); Globulin 3.5 g/dL (2.2-4.2); Glucose 130 mg/dL (74-106); High Density Lipoprotein 46 mg/dL; Potassium 4.4 mmol/L (3.5-5.1); Protein, Total 6.9 g/dL (6.4-8.2); Sodium Level 139 mmol/L (136-145); T4 Free Direct 0.92 ng/dL (0.76-1.46); Triglycerides 114 mg/dL; Very Low Density Lipoprotein 23 mg/dL (5-40)
[2023-04-26 12:08] LABS: Vitamin B1, Thiamine 126.6 nmol/L (66.5-200.0)
== END | disposition home or self-care (01) ==
PROVIDERS: PCP Student in an Organized Health Care Education/Training Program; Referring Provider Student in an Organized Health Care Education/Training Program; Visit Provider Student in an Organized Health Care Education/Training Program
DX: R41.3 Other amnesia (principal); E11.40 Type 2 diabetes mellitus with diabetic neuropathy, unspecified; E03.9 Hypothyroidism, unspecified; E55.9 Vitamin D deficiency, unspecified; M79.89 Other specified soft tissue disorders
CPT/HCPCS: 36415; 80053; 80061; 82043; 82306; 82570; 82607; 82746; 83036; 83880; 84425; 84439; 84443; 85027

== ENCOUNTER 2023-07-26 15:52 | Emergency (ER) | payer MEDICAID, MEDICARE, SELFPAY ==
[2023-07-26 15:53] VITALS: BP 119/41; PULSE 74; RESP 11; TEMP 36.8; O2SAT 100; BMI 49.4
--- NOTE | 2023-07-26 16:21 | EKG12_ITS ---
Test Reason : CONFUSED Blood Pressure : / mmHG Vent. Rate : 071 BPM Atrial Rate : 071 BPM P-R Int : 182 ms QRS Dur : 100 ms QT Int : 404 ms P-R-T Axes : 072 -26 015 degrees QTc Int : 439 ms Normal sinus rhythm Low voltage QRS Abnormal ECG Confirmed by GREER BRAGG, BOB ([id number]), brands editor JASVIR NESBITT ([id number]) on 07/27/2023 2:13:58 PM Referred By: DEMETRICE SURESH Confirmed By:BOB BUTTERFIELD MD
--- NOTE | 2023-07-26 16:32 | EX.ED.DYSGE1 ---
HPI History of Present Illness Chief Complaint: Fatigue Narrative Narrative: 73-year-old female past medical history of COPD, wears oxygen per nasal cannula at all times presents with feelings of fatigue, and lethargy. She lives at home, states that she has been tired all day. She denies fevers or chills, no cough, no problems with urination. She states that this morning all she wanted to do was sleep all day. [facility] Medical History Hypercholesteremia Peripheral vascular disease Palpitations Vertigo Osteoarthritis Diabetes mellitus type 2 in obese Paroxysmal atrial fibrillation Obstructive sleep apnea Home Medications ?Medication ?Instructions ?Recorded ?Last Taken ?Type insulin glargine 100 unit/mL (3 100 units subcut QHS diabetes 03/14/14 11/14/19 23:00 History mL) subcutaneous pen oxycodone-acetaminophen 5 mg-325 1 tab PO Q6H PAIN 04/02/16 01/26/23 History mg tablet gabapentin 400 mg capsule 400 mg PO DAILY NEUROPATHY 11/15/19 01/26/23 History aspirin 81 mg tablet,delayed 81 mg PO DAILY HEART HEALTH #90 10/25/20 01/26/23 Rx release tabs empagliflozin 25 mg tablet 25 mg PO DAILY DIABETES 05/23/21 01/26/23 History (Jardiance) metformin 500 mg tablet,extended 1,000 mg PO DAILY DIABETES 05/23/21 01/26/23 History release 24 hr ropinirole 0.5 mg tablet 0.5 - 1 mg PO QHS RESTLESS LEGS 05/23/21 01/26/23 History albuterol sulfate 90 mcg/actuation 2 puff inhalation Q4H SHORTNESS OF 01/27/23 01/26/23 History aerosol inhaler BREATH bumetanide 1 mg tablet 1 mg PO DAILY EDEMA 01/27/23 01/26/23 History bupropion HCl 150 mg 24 hr tablet, 150 mg PO DAILY DEPRESSION 01/27/23 01/26/23 History extended release calcium carbonate 600 mg-vitamin 1 tab PO BID SUPPLEMENT 01/27/23 01/26/23 History D3 10 mcg (400 unit) tablet escitalopram oxalate 20 mg tablet 20 mg PO DAILY DEPRESSION 01/27/23 01/26/23 History fluticasone fur. 100 mcg-umeclid 1 inh inhalation DAILY SHORTNESS 01/27/23 01/26/23 History 62.5 mcg-vilant 25 mcg OF BREATH/WHEEZING inhalat.powder (Trelegy Ellipta) gabapentin 400 mg capsule 800 mg PO QPM NEUROPATHY 01/27/23 01/26/23 History meloxicam 15 mg tablet 15 mg PO DAILY ARTHRITIS 01/27/23 01/26/23 History pravastatin 40 mg tablet 40 mg PO QPM CHOLESTEROL 01/27/23 01/26/23 History ropinirole 0.5 mg tablet 1 mg PO QPM PRN RESTLESS LEGS 01/27/23 Unknown History cefdinir 300 mg capsule 300 mg PO BID #14 caps 01/30/23 Unknown Rx Allergy/AdvReac Type Severity Reaction Status Date / Time ampicillin Allergy Hives Verified 01/27/23 08:31 codeine Allergy Hives Verified 01/27/23 08:31 meperidine HCl (From Demerol) Allergy Hives Verified 01/27/23 08:31 Penicillins (PCN) Allergy Hives Verified 01/27/23 08:31 propoxyphene napsylate (From Allergy Hives Verified 01/27/23 08:31 Darvocet-N) Family History Mother Heart disease Brother Heart disease Grandfather CVA (cerebral vascular accident) Grandmother Myocardial infarction Surgical History History of laparoscopic cholecystectomy (~11/2019) History of lumpectomy of both breasts History of cardiac catheterization History of knee replacement History of hysterectomy History of tubal ligation History of appendectomy Social History Smoking Status: Former smoker alcohol intake: never substance use type: does not use caffeine: Yes Type: coffee Number of servings: 5 ROS ROS ED ROS Narrative Constitutional: No fever, no chills. Positive fatigue. Increased sleepiness/drowsiness. HEENT: No sore throat. No neck pain. No loss of vision. No rhinorrhea. Cardiovascular: No chest pain. No palpitations. No pedal edema. Respiratory: No cough, no shortness of breath. Abdominal: No abdominal pain. No nausea. No vomiting. Genitourinary: No dysuria. No hematuria. Musculoskeletal: No myalgias. No arthralgias. Neurologic: No headaches. No dizziness. No lightheadedness. Skin: No rash. No change in color. Psychiatric: No depression. No anxiety. EXAM Physical Exam Narrative Exam Narrative: Afebrile. Vital signs noted. HEENT: Normocephalic. Atraumatic. PERRL, EOMI. Neck soft and supple. No point tenderness or step off. Cardiovascular: Regular rate and rhythm. No murmurs, rubs, or gallops appreciated. Respiratory: No tachypnea. Lungs clear to auscultation bilaterally. Gastrointestinal: Abdomen soft, nontender, with normoactive bowel sounds. No rebound or guarding. Neurological: Awake. Alert. Nonfocal, nonlateralizing. Skin: No rash. Normal color. No pallor. Musculoskeletal: No pedal edema. Full range of motion extremities. Const Vital Signs: 07/26/23 15:53 07/26/23 16:00 Temperature 98.2 F Temperature Source Oral Pulse Rate 74 Respiratory Rate 11 L Respiratory Pattern Normal Blood Pressure 119/41 L Blood Pressure Mean 67 Pulse Ox 100 Oxygen Delivery Method Nasal Cannula Oxygen Flow Rate (L/min) 3 MDM MDM MDM Narrative Medical decision making narrative: Concern is for hepatic encephalopathy although she has no history of this versus CO2 retention versus infectious process or dehydration/electrolyte imbalance. Comprehensive workup was pursued. EKG was obtained and interpreted by myself independently as normal sinus rhythm at 71 bpm without ectopy or acute ST changes. No STEMI. I reviewed her laboratory work and she has a normal white count of 7.7, hemoglobin normal at 13.2 with platelet count normal at 312. Electrolytes show normal sodium of 141 with potassium 3.7, chloride 104, BUN slightly elevated at 22 with a creatinine of 1.05. Glucose is appropriately elevated at 95 with a normal anion gap of 5. Urinalysis is negative for infection with 0-5 WBCs, I do not feel she needs antibiotics. There is 2+ yeast but there is a possibility that this is a skin contaminant. She has a normal ammonia level. Venous blood gas does show a pH of 7.38 with a pCO2 slightly elevated at 59. Chest x-ray interpreted by myself independently shows no pneumonia, but she does have interstitial lung disease. I reviewed the radiology report which confirms my independent interpretation. I do not feel that her CO2 retention requires BiPAP or admission at this time. Repeat examination at approximately 1735 shows her more awake and not drowsy. She does state that she is supposed to be wearing CPAP at night, but she wakes up with the mask off. She was told that if she is drowsy during the day that may be she should wear her CPAP for an hour, she does wear her oxygen at night. At this point in time, she is agreeable to discharge and feels well enough to go home. Her family is at the bedside. Return instructions to the emergency department were reviewed. Disposition is discharged home in stable condition. History & Record Review Discussion w/independent historian: Patient Lab Data Attestation: I reviewed the patient's lab results. Labs: Laboratory Results - last 24 hr 07/26/23 07/26/23 15:35 16:30 WBC 7.7 RBC 4.20 Hgb 13.2 Hct 41.9 MCV 99.8 H MCH 31.4 MCHC 31.5 L RDW Std Deviation 48.7 H RDW Coeff of Penny 13.3 Plt Count 312 MPV 11.6 Immature Gran % (Auto) 0.500 Neut % (Auto) 61.7 Lymph % (Auto) 28.4 [place] % (Auto) 6.6 Eos % (Auto) 2.2 Baso % (Auto) 0.6 Absolute Neuts (auto) 4.8 Absolute Lymphs (auto) 2.19 Nucleated RBC % 0 Sodium 141 Potassium 3.7 Chloride 104 Carbon Dioxide 32.0 Anion Gap 5 BUN 22 H Creatinine 1.05 H Estim Creat Clear Calc 54.79 Est GFR (MDRD) Af Amer 66 Est GFR (MDRD) Non-Af 55 L BUN/Creatinine Ratio 21.0 H Glucose 95 Calcium 8.8 Total Bilirubin 0.20 AST 18 ALT 21 Alkaline Phosphatase 144 H Ammonia 19.0 Troponin I High Sens 9 Total Protein 6.8 Albumin 3.3 Globulin 3.5 Albumin/Globulin Ratio 0.9 Urine Color Yellow Urine Clarity Sl. Cloudy Urine pH 5.0 Ur Specific [place] 1.020 Urine Protein Negative Urine Glucose (UA) 1000 H Urine Ketones Negative Urine Occult Blood Negative Urine Nitrite Negative Urine Bilirubin Negative Urine Urobilinogen Normal Ur Leukocyte Esterase Negative Urine RBC 0 SEEN Urine WBC 0-5 SEEN Ur Squamous Epith Cells 0-5 SEEN Urine Bacteria 0 SEEN Urine Mucus 0 SEEN Urine Yeast 2+ Radiography Diagnostic Testing: Clinical Impression(s) from Imaging Studies Chest X-Ray 07/26/23 16:34 IMPRESSION: Interstitial prominence. Electronically Signed: Yann Tsang DO at 16:51 EDT , Discharge Plan Triage Chief Complaint: Fatigue ED Provider: Hunter Ryan Dx/Rx/DC Orders Clinical Impression: Fatigue, Increased sleeping Instructions: ED Weakness (Uncertain Cause) Prescriptions: No Action insulin glargine 100 UNITS/ML insulin pen 100 units SC QHS Patient Comments: PTS FAMILY MEMBER STATES THAT THE PT IS SUPPOSED TO BE USING INSULIN BUT THEY HAVE NOT BEEN DOING THAT. UNSURE OF WHEN THE PT LAST USED THEIR INSULIN. ( OF 01-27-23) oxycodone-acetaminophen 1 TABLET tablet 1 tab PO Q6H gabapentin 400 MG capsule 400 mg PO DAILY ropinirole 0.5 mg tablet 0.5 - 1 mg PO QHS Patient Comments: TAKE TWO TABLETS (1MG) BY MOUTH ONCE EVERY EVENING IF NEEDED. TAKE AN ADDITIONAL 1-2 TABLETS (0.5MG-1MG) AT BEDTIME. metformin 500 mg tablet extended release 24 hr 1,000 mg PO DAILY Jardiance 25 mg tablet 25 mg PO DAILY ropinirole 0.5 mg tablet 1 mg PO QPM PRN (Reason: RESTLESS LEGS) Rx Instructions: TAKE TWO TABLETS (1MG) BY MOUTH ONCE EVERY EVENING IF NEEDED. TAKE AN ADDITIONAL 1-2 TABLETS (0.5MG-1MG) AT BEDTIME. albuterol sulfate 90 mcg/actuation HFA aerosol inhaler 2 puff INHALATION Q4H bumetanide 1 mg tablet 1 mg PO DAILY bupropion HCl 150 mg tablet extended release 24 hr 150 mg PO DAILY calcium carbonate-vitamin D3 600 mg-10 mcg (400 unit) tablet 1 tab PO BID Trelegy Ellipta 100-62.5-25 mcg blister with device 1 inh INHALATION DAILY meloxicam 15 mg tablet 15 mg PO DAILY pravastatin 40 mg tablet 40 mg PO QPM escitalopram oxalate 20 mg tablet 20 mg PO DAILY gabapentin 400 mg capsule 800 mg PO QPM cefdinir 300 mg capsule 300 mg PO BID Qty: 14 0RF aspirin 81 mg tablet,delayed release (DR/EC) 81 mg PO DAILY Qty: 90 3RF Primary Care Provider: Jesse Curran Referrals: Jesse Curran, [Primary Care Provider] - 3-5 Days if not improving Activity Restrictions/Additional Instructions: Wear your CPAP at night. You may need to wear it during the day for at least an hour as well. Return with fever, new or worsening symptoms. Print Language: Kyrgyz Disposition Disposition: Home, Self Care
--- NOTE | 2023-07-26 16:34 | RAD_ITS ---
INDICATION: shortness of breath EXAMINATION/TECHNIQUE: X-RAY - XR Chest 1 View COMPARISON: FINDINGS: LINES/DEVICES: None. LUNGS: No consolidation, edema or effusion. Interstitial prominence. Left pulmonary calcified granulomas. No pneumothorax. MEDIASTINUM AND CARDIOVASCULAR STRUCTURES: Cardiac silhouette not enlarged. Central airways and mediastinal contour are unremarkable. BONES AND SOFT TISSUES: Degenerative vertebral changes. RAD/Chest 1 View (Portable) IMPRESSION: Interstitial prominence. Electronically Signed: Yann Tsang DO at 16:51 EDT ,
[2023-07-26 16:39] LABS: Bacteria 0 SEEN /hpf (None Seen); Mucous, Urine 0 SEEN /hpf (<or=2+); Red Blood Cells-Urine 0 SEEN /hpf (0-5)
[2023-07-26 16:43] LABS: Absolute Lymphocyte Count 2.19 X10^3/uL (0.83-4.51); Absolute Neutrophil Count 4.8 X10^3/uL (2.0-7.7); Basophil# 0.05 X10^3/uL; Basophil% 0.6 % (0-1); Eosinophil# 0.17 X10^3/uL; Eosinophils% 2.2 % (0-5); Hematocrit 41.9 % (37-47); Hemoglobin 13.2 g/dL (12.0-15.0); Lymphocyte # 2.19 X10^3/ul (0.83-4.51); Lymphocyte % 28.4 % (19-41); Mean Corp Hgb Conc 31.5 g/dL (32-36); Mean Corpuscular Hgb 31.4 pg (27.0-32.0); Mean Corpuscular Volume 99.8 fL (81-99); Mean Platelet Vol. 11.6 fl (6.2-12.0); Monocyte# 0.51 X10^3/uL; Monocyte% 6.6 % (0-10); NRBC Flagged by Analyzer 0 % (0-5); Neutrophil # 4.76 X10^3/uL (2.7-7.7); Neutrophil % 61.7 % (47-70); Platelet Count 312 K/mm3 (150-450); RBC Distribution Width CV 13.3 % (11.6-14.6); RBC Distribution Width SD 48.7 fl (35.1-43.9); White Blood Count 7.7 K/mm3 (4.4-11.0)
[2023-07-26 16:43] LABS: Color, Urine Yellow (Yellow); Glucose, Dipstick 1000 mg/dl (Normal); Ketone-Dipstick Negative (Negative); Leukocyte Esterase-Dipstick Negative /ul (Negative); Nitrite-Dipstick Negative (Negative); Occult Blood-Urine Negative /ul (Negative); Protein-Dipstick Negative (Negative); Urine Bilirubin Dipstick Negative (Negative); Urine Clarity Sl. Cloudy (Clear); Urine Urobilinogen Normal (Normal)
[2023-07-26 16:51] LABS: Yeast-Urine 2+ /hpf (None Seen)
[2023-07-26 16:52] LABS: Squamous Epithelial Cells - UA 0-5 SEEN /hpf (5-10); White Blood Cells 0-5 SEEN /hpf (0-5)
[2023-07-26 17:04] LABS: ALB/GLOB Ratio 0.9 RATIO (0.9-2.4); AST(SGOT) 18 U/L (15-37); Alanine Aminotransfer ALT/SGPT 21 U/L (13-56); Albumin, Serum 3.3 g/dL (3.2-5.0); Alkaline Phosphatase 144 U/L (45-117); Anion Gap 5 (5-15); BUN 22 mg/dL (7-18); Calcium,Total 8.8 mg/dL (8.5-10.1); Chloride 104 mmol/L (98-107); Creatinine, Serum 1.05 mg/dL (0.55-1.02); EST Glomerular Filtration Rate 55 mL/min (>60); Est Glom Filt Rate - Afr Amer 66 mL/min (>60); Estimated Creatinine Clearance 54.79 ml/min; Globulin 3.5 g/dL (2.2-4.2); Glucose 95 mg/dL (74-106); Potassium 3.7 mmol/L (3.5-5.1); Protein, Total 6.8 g/dL (6.4-8.2); Sodium Level 141 mmol/L (136-145); Troponin-I HS 9 pg/mL (3.0-54.0)
[2023-07-26 17:52] VITALS: BP 121/51; PULSE 82; RESP 16; TEMP 36.8; O2SAT 100
[2023-07-27 06:56] LABS: Blood Gas Specimen Type VEN; O2 Delivery Device Cannula; SITE Not entered; VBG BASE EXCESS 10 mmol/L (-1.0-3.5); VBG Bicarbonate 35 mmol/L (22-26); VBG PO2 45 mmHg (25-40); VBG SO2 78 % (50-70); VBG TCO2 37 mmol/L (23-33); VBG pCO2 59.8 mmHg (41-51); VBG pH 7.38 (7.32-7.42)
== END 2023-07-26 17:56 | disposition home or self-care (01) ==
PROVIDERS: Emergency Provider Emergency Medicine; PCP Student in an Organized Health Care Education/Training Program; Visit Provider Emergency Medicine
DX: R53.83 Other fatigue (principal); J84.9 Interstitial pulmonary disease, unspecified; J44.9 Chronic obstructive pulmonary disease, unspecified; E11.9 Type 2 diabetes mellitus without complications; Z87.891 Personal history of nicotine dependence; Z99.81 Dependence on supplemental oxygen; E78.00 Pure hypercholesterolemia, unspecified
CPT/HCPCS: 51701; 71045; 80053; 81001; 82140; 82803; 84484; 85025; 93005; 99285; P9612; A4216

== ENCOUNTER 2023-08-25 05:05 | Inpatient (IN) | payer MEDICARE, MEDICAID, SELFPAY ==
[2023-08-25] VITALS (15 sets, daily range): BP systolic 110–142; BP diastolic 54–116; PULSE 64–110; RESP 16–20; TEMP 36.5–38.3; O2SAT 88–100; BMI 48.2; BMI 47.0
--- NOTE | 2023-08-25 05:12 | RAD_ITS ---
INDICATION: fall/injury EXAMINATION/TECHNIQUE: X-RAY - XR Ribs Unilateral W/ PA Chest Min 3 Views COMPARISON: No relevant prior comparison study available FINDINGS: SOFT TISSUES: No soft tissue swelling or gas. BONES: No displaced fracture. No sclerotic or destructive changes observed. VISUALIZED LUNGS: Clear. No pneumothorax. There is a calcified granuloma in the left lung upper lobe measures 1.2 cm in diameter. RAD/Ribs Uni Min 3V w/PA Chest IMPRESSION: No evidence of displaced rib fracture. Electronically Signed: Maximo Khoury MD at 7:10 EDT ,
--- NOTE | 2023-08-25 05:22 | RAD_ITS ---
EXAM: XR PELVIS, 1 OR 2 VIEWS CLINICAL INDICATION: fall/pain (pain right, fell on left; nontend) TECHNIQUE: Frontal view of the pelvis. COMPARISON: No relevant prior studies available. FINDINGS: BONES/JOINTS: Unremarkable. No displaced fracture. No destructive or sclerotic lesions. Note that overlapping bowel shadows may however obscure fine detail. Sacroiliac joints are unremarkable. No widening of the pubic symphysis. The articular structures are unremarkable. SOFT TISSUES: Unremarkable. No soft tissue swelling or gas. RAD/Pelvis 1 or 2 Views IMPRESSION: No evidence of displaced pelvic fracture. Electronically Signed: Jesse Lopez MD at 7:09 EDT ,
--- NOTE | 2023-08-25 05:23 | ED.VIS.FALL ---
HPI HPI - Fall History of Present Illness Chief Complaint: Fall Informant: patient and EMS Narrative Narrative: 73-year-old female accidentally rolled out of bed falling to the floor against her left side, saying that she is having pain on the right side. Initially EMS reported that she was having pain in her right hip but the patient is pointing to her right flank/ribs. She has no more dyspnea than she usually does, she is on 4 L of oxygen at home for COPD stating that her symptoms have been relatively consistent there with regards to cough and trouble breathing. EMS did not appreciate any length discrepancy with regards to her lower extremities. Patient denies any pain or injury to her arms or her legs otherwise. She complains of no pain on the left hip where she landed. [facility] Medical History Hypercholesteremia Peripheral vascular disease Palpitations Vertigo Osteoarthritis Diabetes mellitus type 2 in obese Paroxysmal atrial fibrillation Obstructive sleep apnea Home Medications ?Medication ?Instructions ?Recorded ?Last Taken ?Type insulin glargine 100 unit/mL (3 100 units subcut QHS diabetes 03/14/14 11/14/19 23:00 History mL) subcutaneous pen oxycodone-acetaminophen 5 mg-325 1 tab PO Q6H PAIN 04/02/16 01/26/23 History mg tablet gabapentin 400 mg capsule 400 mg PO DAILY NEUROPATHY 11/15/19 01/26/23 History aspirin 81 mg tablet,delayed 81 mg PO DAILY HEART HEALTH #90 10/25/20 01/26/23 Rx release tabs empagliflozin 25 mg tablet 25 mg PO DAILY DIABETES 05/23/21 01/26/23 History (Jardiance) metformin 500 mg tablet,extended 1,000 mg PO DAILY DIABETES 05/23/21 01/26/23 History release 24 hr ropinirole 0.5 mg tablet 0.5 - 1 mg PO QHS RESTLESS LEGS 05/23/21 01/26/23 History albuterol sulfate 90 mcg/actuation 2 puff inhalation Q4H SHORTNESS OF 01/27/23 01/26/23 History aerosol inhaler BREATH bumetanide 1 mg tablet 1 mg PO DAILY EDEMA 01/27/23 01/26/23 History bupropion HCl 150 mg 24 hr tablet, 150 mg PO DAILY DEPRESSION 01/27/23 01/26/23 History extended release calcium carbonate 600 mg-vitamin 1 tab PO BID SUPPLEMENT 01/27/23 01/26/23 History D3 10 mcg (400 unit) tablet escitalopram oxalate 20 mg tablet 20 mg PO DAILY DEPRESSION 01/27/23 01/26/23 History fluticasone fur. 100 mcg-umeclid 1 inh inhalation DAILY SHORTNESS 01/27/23 01/26/23 History 62.5 mcg-vilant 25 mcg OF BREATH/WHEEZING inhalat.powder (Trelegy Ellipta) gabapentin 400 mg capsule 800 mg PO QPM NEUROPATHY 01/27/23 01/26/23 History meloxicam 15 mg tablet 15 mg PO DAILY ARTHRITIS 01/27/23 01/26/23 History pravastatin 40 mg tablet 40 mg PO QPM CHOLESTEROL 01/27/23 01/26/23 History ropinirole 0.5 mg tablet 1 mg PO QPM PRN RESTLESS LEGS 01/27/23 Unknown History cefdinir 300 mg capsule 300 mg PO BID #14 caps 01/30/23 Unknown Rx Allergy/AdvReac Type Severity Reaction Status Date / Time ampicillin Allergy Hives Verified 08/25/23 05:14 codeine Allergy Hives Verified 08/25/23 05:14 meperidine HCl (From Demerol) Allergy Hives Verified 08/25/23 05:14 Penicillins (PCN) Allergy Hives Verified 08/25/23 05:14 propoxyphene napsylate (From Allergy Hives Verified 08/25/23 05:14 Darvocet-N) Family History Mother Heart disease Brother Heart disease Grandfather CVA (cerebral vascular accident) Grandmother Myocardial infarction Surgical History History of laparoscopic cholecystectomy (~11/2019) History of lumpectomy of both breasts History of cardiac catheterization History of knee replacement History of hysterectomy History of tubal ligation History of appendectomy Social History Smoking Status: Former smoker alcohol intake: never substance use type: does not use caffeine: Yes Type: coffee Number of servings: 5 ROS ROS ED Constitutional Constitutional ED: Denies chills or fever(s) Eyes Eyes: Denies change in vision or diplopia ENT ENT ED: Denies rhinorrhea or sore throat Cardiovascular Cardiovascular: Reports other Details: Right-sided rib pain see HPI ; Denies chest pain or palpitations Respiratory/Chest Respiratory/Chest: Reports cough and dyspnea on exertion Gastrointestinal Gastrointestinal: Denies abdominal pain, diarrhea, nausea or vomiting Genitourinary Genitourinary ED: Denies dysuria or hematuria Musculoskeletal Musculoskeletal: Reports other Details: Chronic pain in both knees ; Denies back pain or neck pain Integumentary Denies abscess Neurologic Neurologic: Denies headache(s), paresthesias or weakness Psychiatric Psychiatric: Denies suicidal thoughts EXAM Physical Exam Const Vital Signs: 08/25/23 05:07 08/25/23 05:15 08/25/23 05:23 Temperature 101.0 F H 101 F H Temperature Source Oral Pulse Rate 100 Respiratory Rate 20 H Respiratory Effort Short of Breath Labored Blood Pressure 137/116 H Blood Pressure Mean 123 Pulse Ox 100 100 Oxygen Delivery Method Nasal Cannula Nasal Cannula Oxygen Flow Rate (L/min) 4 4 4 Positive well nourished, well developed and obese General Appearance ED: well developed and NAD Nutritional Appearance: obese HEENT Reports moist mucous membranes normocephalic and atraumatic Eyes PERRL and EOMs intact bilaterally Neck full ROM and supple Chest Wall Chest Narrative: Tenderness throughout much of the very lateral right chest wall from the level of the fourth breast quadrant all the way down. There is no palpable crepitance but this portion of the exam is limited by her morbid obesity. There is no splinting with deep inspiration but when trying to sit her up she refuses and forces herself back to a supine position due to pain in the right rib cage. Resp normal respiratory effort and clear to auscultation bilaterally Cardio regular rate, regular rhythm and no murmurs GI non-tender and non-distended Auscultation: normoactive bowel sounds Palpation: soft Back/Spine Back/Spine Narrative: Limited range of motion and limited exam due to patient refusing to sit up. We did roll her over she has no spinal tenderness throughout. No obvious signs of injury, no ecchymosis or rash. Extremity normal to inspection Extremity Narrative: Limited range of motion of the lower extremities due to pain in the knees that she states is chronic and stable. She has well-healed TKA anterior surgical incisions bilaterally without any signs of erythema, cellulitis, deformity, swelling. With regards to the hip she has painless full range of motion without any difficulty including logroll bilaterally. ASIS nontender bilaterally, pelvis stable to AP compression. Arms full range of motion throughout both and they are atraumatic. General Extremety ED: Negative for edema, pulses abnormal or tenderness General Extremity: Negative for edema or pulses abnormal Neuro oriented x3, CN's II-XII intact bilaterally and no sensory deficits noted Sensorium / Orientation: awake and alert Motor Exam: strength 5/5 throughout Psych Mood & Affect: anxious Skin no wounds Skin Narrative: Although across beneath her pannus, there is a foul-smelling yeasty erythematous rash. No other rashes or signs of trauma. MDM MDM MDM Narrative Medical decision making narrative: Nurses are doing vital signs and she has a temperature of 101.0 Fahrenheit. She is on her home oxygen and at 100% on 4 L. Given all of the history and exam, and the fact that after I left the room the patient still indicates that her right hip is hurting, pointing to her right ASIS, in addition to the right rib cage which is hurting her more than anything else, performing right rib series with PA chest, a pelvis AP, as well as more of a septic workup including COVID/influenza/RSV and urinalysis, labs, lactic acid. In addition given her dose of morphine, I reviewed her allergy list she has had morphine before and states she does not react to it. This helped her pain. With regards to her workup, she does have a leukocytosis without bandemia, her urine looks clean, rib series with PA chest 5 views of my interpretation shows no acute fractures and no pneumonia, radiology was in agreement. COVID/influenza/RSV test is negative. Pelvis AP 1 view on my interpretation is negative for fracture radiology also in agreement. I discussed more with the patient, she states she was running some fevers yesterday and agrees that the fall today was accidental from rolling out of bed and seems unrelated to her fever. She does states she has been coughing more than usual, sometimes the sputum is discolored no blood/hemoptysis. Short of breath but not necessarily more than usual she states she always is with regards to her COPD/wheezing. At this time I see no evidence of pneumonia so my suspicion is that she has a viral infection that is making her COPD worse perhaps making her febrile with a white blood count. Providing broad-spectrum antibiotics to prevent bacterial superinfection is reasonable so I am starting her on doxycycline. Nursing attempted to help her out of bed. She is not able to walk even with a walker due to being in so much pain with regards to her right rib cage. I see no evidence of fracture, but even if she had a small nondisplaced fracture not visible on x-ray, the treatment would not be any different. However, she states she lives with her 90-year-old mother who is worse off than she is, and it does not sound like she has help at home, and although she does not initially want to stay in the hospital she later agrees that it is safer. With bearing weight on her legs, she does not have limiting hip discomfort. Lab Data Attestation: I reviewed the patient's lab results. Labs: Laboratory Results - last 24 hr 08/25/23 08/25/23 05:36 05:50 WBC 14.3 H RBC 4.16 L Hgb 13.1 Hct 40.2 MCV 96.6 MCH 31.5 MCHC 32.6 RDW Std Deviation 47.8 H RDW Coeff of Penny 13.4 Plt Count 266 MPV 11.1 Immature Gran % (Auto) 0.900 Neut % (Auto) 86.5 H Lymph % (Auto) 6.3 L [place] % (Auto) 5.5 Eos % (Auto) 0.3 Baso % (Auto) 0.5 Absolute Neuts (auto) 12.4 H Absolute Lymphs (auto) 0.90 Nucleated RBC % 0 Sodium 135 L Potassium 3.6 Chloride 100 Carbon Dioxide 27.0 Anion Gap 8 BUN 18 Creatinine 1.42 H Estim Creat Clear Calc 39.92 Est GFR (MDRD) Af Amer 47 L Est GFR (MDRD) Non-Af 39 L BUN/Creatinine Ratio 12.7 Glucose 176 H Lactic Acid 2.0 Calcium 8.7 Urine Color Yellow Urine Clarity Clear Urine pH 6.0 Ur Specific [place] 1.015 Urine Protein Negative Urine Glucose (UA) 1000 H Urine Ketones Negative Urine Occult Blood Negative Urine Nitrite Negative Urine Bilirubin Negative Urine Urobilinogen Normal Ur Leukocyte Esterase Negative Urine RBC 0 SEEN Urine WBC 0 SEEN Ur Squamous Epith Cells 0 SEEN Urine Bacteria 0 SEEN Urine Mucus 0 SEEN Radiography Diagnostic Testing: Clinical Impression(s) from Imaging Studies Ribs w/Chest X-Ray 08/25/23 05:12 IMPRESSION: No evidence of displaced rib fracture. Electronically Signed: Maximo Khoury MD at 7:10 EDT , Pelvis X-Ray 08/25/23 05:22 IMPRESSION: No evidence of displaced pelvic fracture. Electronically Signed: Jesse Lopez MD at 7:09 EDT , Rhythm Strip Rhythm Strip: Sinus Tach Rate: 100 Ectopy: None Management Discussion w/another healthcare provider: Hospitalist Discharge Plan Triage Chief Complaint: Fall ED Provider: Coy Syed Dx/Rx/DC Orders Clinical Impression: Intractable pain, Acute exacerbation of chronic obstructive pulmonary disease (COPD), Contusion of right chest wall, Accidental fall from bed Prescriptions: No Action insulin glargine 100 UNITS/ML insulin pen 100 units SC QHS Patient Comments: PTS FAMILY MEMBER STATES THAT THE PT IS SUPPOSED TO BE USING INSULIN BUT THEY HAVE NOT BEEN DOING THAT. UNSURE OF WHEN THE PT LAST USED THEIR INSULIN. ( OF 01-27-23) oxycodone-acetaminophen 1 TABLET tablet 1 tab PO Q6H gabapentin 400 MG capsule 400 mg PO DAILY ropinirole 0.5 mg tablet 0.5 - 1 mg PO QHS Patient Comments: TAKE TWO TABLETS (1MG) BY MOUTH ONCE EVERY EVENING IF NEEDED. TAKE AN ADDITIONAL 1-2 TABLETS (0.5MG-1MG) AT BEDTIME. metformin 500 mg tablet extended release 24 hr 1,000 mg PO DAILY Jardiance 25 mg tablet 25 mg PO DAILY ropinirole 0.5 mg tablet 1 mg PO QPM PRN (Reason: RESTLESS LEGS) Rx Instructions: TAKE TWO TABLETS (1MG) BY MOUTH ONCE EVERY EVENING IF NEEDED. TAKE AN ADDITIONAL 1-2 TABLETS (0.5MG-1MG) AT BEDTIME. albuterol sulfate 90 mcg/actuation HFA aerosol inhaler 2 puff INHALATION Q4H bumetanide 1 mg tablet 1 mg PO DAILY bupropion HCl 150 mg tablet extended release 24 hr 150 mg PO DAILY calcium carbonate-vitamin D3 600 mg-10 mcg (400 unit) tablet 1 tab PO BID Trelegy Ellipta 100-62.5-25 mcg blister with device 1 inh INHALATION DAILY meloxicam 15 mg tablet 15 mg PO DAILY pravastatin 40 mg tablet 40 mg PO QPM escitalopram oxalate 20 mg tablet 20 mg PO DAILY gabapentin 400 mg capsule 800 mg PO QPM cefdinir 300 mg capsule 300 mg PO BID Qty: 14 0RF aspirin 81 mg tablet,delayed release (DR/EC) 81 mg PO DAILY Qty: 90 3RF Primary Care Provider: Jesse Curran Referrals: Jesse Curran DO [Primary Care Provider] - Print Language: Thai Disposition Disposition: Acute Care Hospital [facility]
[2023-08-25 05:50] LABS: Bacteria 0 SEEN /hpf (None Seen); Mucous, Urine 0 SEEN /hpf (<or=2+); Red Blood Cells-Urine 0 SEEN /hpf (0-5); Squamous Epithelial Cells - UA 0 SEEN /hpf (5-10); White Blood Cells 0 SEEN /hpf (0-5)
[2023-08-25] MEDS: Acetaminophen 500 MG Tablet 1000 MG PO ×3 (05:55→21:06)
[2023-08-25] MEDS: Morphine 4 MG/ML Syringe IV ×2 (05:56→07:36)
[2023-08-25 06:07] LABS: Absolute Neutrophil Count 12.4 X10^3/uL (2.0-7.7); Basophil# 0.07 X10^3/uL; Basophil% 0.5 % (0-1); Eosinophil# 0.04 X10^3/uL; Eosinophils% 0.3 % (0-5); Hematocrit 40.2 % (37-47); Hemoglobin 13.1 g/dL (12.0-15.0); Lymphocyte % 6.3 % (19-41); Mean Corp Hgb Conc 32.6 g/dL (32-36); Mean Corpuscular Hgb 31.5 pg (27.0-32.0); Mean Corpuscular Volume 96.6 fL (81-99); Mean Platelet Vol. 11.1 fl (6.2-12.0); Monocyte# 0.78 X10^3/uL; Monocyte% 5.5 % (0-10); NRBC Flagged by Analyzer 0 % (0-5); Neutrophil # 12.36 X10^3/uL (2.7-7.7); Neutrophil % 86.5 % (47-70); Platelet Count 266 K/mm3 (150-450); RBC Distribution Width CV 13.4 % (11.6-14.6); RBC Distribution Width SD 47.8 fl (35.1-43.9); Red Blood Count 4.16 M/mm3 (4.2-5.4); White Blood Count 14.3 K/mm3 (4.4-11.0)
[2023-08-25 06:14] LABS: Glucose, Dipstick 1000 mg/dl (Normal); Ketone-Dipstick Negative (Negative); Leukocyte Esterase-Dipstick Negative /ul (Negative); Nitrite-Dipstick Negative (Negative); Occult Blood-Urine Negative /ul (Negative); Protein-Dipstick Negative (Negative); Specific Gravity, Urine 1.015 (1.002-1.030); Urine Bilirubin Dipstick Negative (Negative); Urine Urobilinogen Normal (Normal)
[2023-08-25 06:22] LABS: Color, Urine Yellow (Yellow); Urine Clarity Clear (Clear)
[2023-08-25 06:24] LABS: Anion Gap 8 (5-15); BUN 18 mg/dL (7-18); BUN/Creat Ratio 12.7 RATIO (10-20); Calcium,Total 8.7 mg/dL (8.5-10.1); Chloride 100 mmol/L (98-107); Creatinine, Serum 1.42 mg/dL (0.55-1.02); EST Glomerular Filtration Rate 39 mL/min (>60); Est Glom Filt Rate - Afr Amer 47 mL/min (>60); Estimated Creatinine Clearance 39.92 ml/min; Glucose 176 mg/dL (74-106); Potassium 3.6 mmol/L (3.5-5.1); Sodium Level 135 mmol/L (136-145)
--- NOTE | 2023-08-25 07:16 | ED.RN ---
PT BENNIE DOMINGUEZ. [address]. PT AND NURSE BUSY IN PT RM. NUMBER LEFT [phone]
[2023-08-25] MEDS: Ipratropium/Albuterol Sulfate 3 ML AMPUL.NEB INHALATION ×5 (07:36→23:34)
[2023-08-25] MEDS: Doxycycline 100 MG CAPSULE PO (07:36)
--- NOTE | 2023-08-25 07:45 | PCM.HP.STD ---
[facility] - General General Date of Admission: 08/25/23 Date of Service: 08/25/23 Chief Complaint: Shortness of breath HPI Narrative [address], is a 73 F with past medical history is again for diabetes mellitus type 2, morbid obesity with BMI of 48.2, chronic hypoxic respiratory failure on baseline home oxygen who presented with shortness of breath. Per patient symptoms have been ongoing for the past couple of days. She in addition did extremities intermittent fever and chills. She apparently had a fall on the morning of her admission. She did call the EMS squad and was brought to the emergency department. She did complain of right flank pain imaging studies however did not show any broken ribs. She was found to have elevated WBC count as well as low-grade fever in addition to tachycardia. Checks x-ray and urinalysis both came back unremarkable admitted to regular nursing floor for further management [facility] Medical History Hypercholesteremia Peripheral vascular disease Palpitations Vertigo Osteoarthritis Diabetes mellitus type 2 in obese Paroxysmal atrial fibrillation Obstructive sleep apnea Home Medications ?Medication ?Instructions ?Recorded ?Last Taken ?Type insulin glargine 100 unit/mL (3 100 units subcut QHS diabetes 03/14/14 11/14/19 23:00 History mL) subcutaneous pen oxycodone-acetaminophen 5 mg-325 1 tab PO Q6H PAIN 04/02/16 01/26/23 History mg tablet gabapentin 400 mg capsule 400 mg PO DAILY NEUROPATHY 11/15/19 01/26/23 History aspirin 81 mg tablet,delayed 81 mg PO DAILY HEART HEALTH #90 10/25/20 01/26/23 Rx release tabs empagliflozin 25 mg tablet 25 mg PO DAILY DIABETES 05/23/21 01/26/23 History (Jardiance) metformin 500 mg tablet,extended 1,000 mg PO DAILY DIABETES 05/23/21 01/26/23 History release 24 hr ropinirole 0.5 mg tablet 0.5 - 1 mg PO QHS RESTLESS LEGS 05/23/21 01/26/23 History albuterol sulfate 90 mcg/actuation 2 puff inhalation Q4H SHORTNESS OF 01/27/23 01/26/23 History aerosol inhaler BREATH bumetanide 1 mg tablet 1 mg PO DAILY EDEMA 01/27/23 01/26/23 History bupropion HCl 150 mg 24 hr tablet, 150 mg PO DAILY DEPRESSION 01/27/23 01/26/23 History extended release calcium carbonate 600 mg-vitamin 1 tab PO BID SUPPLEMENT 01/27/23 01/26/23 History D3 10 mcg (400 unit) tablet escitalopram oxalate 20 mg tablet 20 mg PO DAILY DEPRESSION 01/27/23 01/26/23 History fluticasone fur. 100 mcg-umeclid 1 inh inhalation DAILY SHORTNESS 01/27/23 01/26/23 History 62.5 mcg-vilant 25 mcg OF BREATH/WHEEZING inhalat.powder (Trelegy Ellipta) gabapentin 400 mg capsule 800 mg PO QPM NEUROPATHY 01/27/23 01/26/23 History meloxicam 15 mg tablet 15 mg PO DAILY ARTHRITIS 01/27/23 01/26/23 History pravastatin 40 mg tablet 40 mg PO QPM CHOLESTEROL 01/27/23 01/26/23 History ropinirole 0.5 mg tablet 1 mg PO QPM PRN RESTLESS LEGS 01/27/23 Unknown History cefdinir 300 mg capsule 300 mg PO BID #14 caps 01/30/23 Unknown Rx Allergy/AdvReac Type Severity Reaction Status Date / Time ampicillin Allergy Hives Verified 08/25/23 05:14 codeine Allergy Hives Verified 08/25/23 05:14 meperidine HCl (From Demerol) Allergy Hives Verified 08/25/23 05:14 Penicillins (PCN) Allergy Hives Verified 08/25/23 05:14 propoxyphene napsylate (From Allergy Hives Verified 08/25/23 05:14 Darvocet-N) Family History Mother Heart disease Brother Heart disease Grandfather CVA (cerebral vascular accident) Grandmother Myocardial infarction Surgical History History of laparoscopic cholecystectomy (~11/2019) History of lumpectomy of both breasts History of cardiac catheterization History of knee replacement History of hysterectomy History of tubal ligation History of appendectomy Social History Smoking Status: Former smoker alcohol intake: never substance use type: does not use caffeine: Yes Type: coffee Number of servings: 5 ROS ROS Narrative GENERAL: fever, chills, night sweats, HEENT: denies headache, sinus congestion, RESPIRATORY: shortness of breath, dyspnea on exertion CARDIAC: denies chest pain, palpitations, orthopnea, GASTROINTESTINAL: denies abdominal pain, nausea, GENITOURINARY: denies dysuria, urgency, frequency, EXTREMITY: denies swelling MUSCULOSKELETAL: Right flank pain NEUROLOGIC: denies focal numbness, weakness, tingling HEMATOLOGIC: denies easy bruising and/or hemorrhage INTEGUMENT: denies rashes PSYCHIATRIC: denies suicidal or homicidal ideation Vital Signs Vital Signs Vital Signs: 08/25/23 05:07 08/25/23 05:15 08/25/23 05:23 Temperature 101.0 F H 101 F H Temperature Source Oral Pulse Rate 100 Respiratory Rate 20 H Respiratory Effort Short of Breath Labored Respiratory Pattern Blood Pressure 137/116 H Blood Pressure Mean 123 Pulse Ox 100 100 Oxygen Delivery Method Nasal Cannula Nasal Cannula Oxygen Flow Rate (L/min) 4 4 4 08/25/23 07:07 08/25/23 07:33 08/25/23 07:40 Temperature 98.2 F Temperature Source Pulse Rate 88 78 110 H Respiratory Rate 17 18 16 Respiratory Effort Respiratory Pattern Normal Blood Pressure 123/63 H 110/56 L Blood Pressure Mean 83 74 Pulse Ox 100 100 Oxygen Delivery Method Nasal Cannula Oxygen Flow Rate (L/min) 4 Weight Weight: 108.3 kg Body Mass Index (BMI) 48.2 Physical Exam Narrative GENERAL: cooperative HEENT: Atraumatic; normocephalic EYES; Anicteric, Normal Conjunctiva NECK; supple, normal thyroid, RESPIRATORY: Diminished to auscultation CARDIOVASCULAR: Regular S1 S2, GI: soft, normoactive bowel sounds, : No Renal angle tenderness; EXTREMITIES: No edema, no clubbing, MUSCULOSKELETAL: no muscle wasting NEURO: Awake; no lateralizing signs. SKIN: No Rash PSYCH; Flat affect Results Lab / Micro Data 08/25/23 05:50 08/25/23 05:50 Labs: Laboratory Results - last 24 hr 08/25/23 05:36: Urine Color Yellow, Urine Clarity Clear, Urine pH 6.0, Ur Specific [place] 1.015, Urine Protein Negative, Urine Glucose (UA) 1000 H, Urine Ketones Negative, Urine Occult Blood Negative, Urine Nitrite Negative, Urine Bilirubin Negative, Urine Urobilinogen Normal, Ur Leukocyte Esterase Negative, Urine RBC 0 SEEN, Urine WBC 0 SEEN, Ur Squamous Epith Cells 0 SEEN, Urine Bacteria 0 SEEN, Urine Mucus 0 SEEN 08/25/23 05:50: WBC 14.3 H, RBC 4.16 L, Hgb 13.1, Hct 40.2, MCV 96.6, MCH 31.5, MCHC 32.6, RDW Std Deviation 47.8 H, RDW Coeff of Penny 13.4, Plt Count 266, MPV 11.1, Immature Gran % (Auto) 0.900, Neut % (Auto) 86.5 H, Lymph % (Auto) 6.3 L, [place] % (Auto) 5.5, Eos % (Auto) 0.3, Baso % (Auto) 0.5, Absolute Neuts (auto) 12.4 H, Absolute Lymphs (auto) 0.90, Nucleated RBC % 0, Sodium 135 L, Potassium 3.6, Chloride 100, Carbon Dioxide 27.0, Anion Gap 8, BUN 18, Creatinine 1.42 H, Estim Creat Clear Calc 39.92, Est GFR (MDRD) Af Amer 47 L, Est GFR (MDRD) Non-Af 39 L, BUN/Creatinine Ratio 12.7, Glucose 176 H, Lactic Acid 2.0, Calcium 8.7 Micro: Microbiology 08/25/23 05:36 Mucosa - Nose SARS-CoV-2, Influenza & RSV (PCR) - Final Rhythm Strip Rhythm Strip: Sinus Tach Rate: 100 Ectopy: None Imaging Radiology Impression Ribs w/Chest X-Ray 08/25/23 05:12 IMPRESSION: No evidence of displaced rib fracture. Electronically Signed: Maximo Khoury MD at 7:10 EDT , Pelvis X-Ray 08/25/23 05:22 IMPRESSION: No evidence of displaced pelvic fracture. Electronically Signed: Jesse Lopez MD at 7:09 EDT , Assessment & Plan Assessment/Plan (1) Accidental fall from bed: (2) Acute exacerbation of chronic obstructive pulmonary disease (COPD): PLAN: Plan Patient is a 73-year-old lady presented with shortness of breath, intermittent fever as well as falls 1. COPD with acute exacerbation - Patient started on bronchodilator treatment, systemic steroid as well as antibiotic therapy. Patient placed on oxygen titrated to keep saturation greater than 90. As part of evaluation ordered ABGs 2. Adult failure to thrive with falls ? Patient did complain of right flank pain imaging studies however negative for any rib fractures. Patient admitted to regular nursing floor requested for PT OT eval and social work supervisor to assist with discharge planning 3. Intermittent fever ?Urinalysis obtained came back unremarkable checks x-ray did not show any infiltrate do suspect bronchitis. Patient has been started on azithromycin as part of management of her COPD exacerbation 4. Chronic hypoxic respiratory failure ? Secondary to COPD patient is on home oxygen 4 L at rest 5. Elevated troponin ? Secondary to suspected myocardial injury from above 6. Diabetes mellitus type II -patient's oral hypoglycemics held. Placed on long acting insulin, Accu-Cheks a.c. and at bedtime and covered with sliding scale insulin 7. Class III obesity with BMI of 48 ? Complicating care weight loss advised 8. Intertrigo ? Requested for nystatin powder to be applied to skin folds 9. Paroxysmal A-fib ? Patient was in sinus rhythm on admission 10. Obstructive sleep apnea ? Consistent use of PAP therapy encourage 11. Depression with anxiety ? Patient is on escitalopram as well as bupropion continue 12. Restless leg syndrome ? Patient is on ropinirole continue 13. Acute kidney injury ? Baseline creatinine from 01/30/2023 was 0.68 creatinine on admission was 1.42 started on IV fluids with avoidance of potential nephrotoxic medications 14. DVT prophylaxis -Heparin SC Time spent in the patient's overall evaluation,decision-making process, review of diagnostic data, adjustment of management, discussion with other providers, nursing nursing and ancillary staff involved in patient's care documentation, 75 Minutes Advance planning; did discuss with the patient and family regarding advanced directives as well as CODE STATUS. Did explain the various scenarios involved ( FULL CODE, DNR CCA, DNR CCA with no intubation, and DNR CC and what each meant) patient elected remain full code with CPR and intubation if needed. Order was placed. Time spent on discussion 16 minutes. Charges/Coding Multi Select Codes Visit Charges Visit Charges: 15805 Init Hosp L3 Hospitalists' Procedures Procedures: 19152 Advncd Care Plan 30 Min
[2023-08-25 08:36] LABS: Allen Test Positive; Base Excess 3 mmol/L (-2 to +2); Bicarbonate 26.9 mmol/L (22-26); Blood Gas Specimen Type ART; Mode Not entered; O2 Delivery Device Cannula; PO2 90 mmHG (75-100); SITE R Brach; SO2 97 % (95-99); Total Carbon Dioxide 28 mmol/L; pCO2 40.3 mmHg (35-45); pH 7.43 (7.35-7.45)
[2023-08-25] MEDS: Azithromycin 250 MG Tablet 500 MG PO (09:39)
[2023-08-25] MEDS: 0.9% Normal Saline (1000mL) 1,000 ML 100 ML IV ×2 (09:40→17:38)
[2023-08-25 10:02] LABS: Reflex Lactate? Y
[2023-08-25 11:03] LABS: Lactic Acid 3.2 mmol/L (0.4-1.9)
[2023-08-25 11:34] LABS: Bedside Glucose 107 mg/dL (74-106)
[2023-08-25] MEDS: oxyCODONE 5 MG Tablet PO ×3 (12:13→21:06)
--- NOTE | 2023-08-25 12:26 | CASEMGMT ---
Addendum entered by Nohemi Mccarty 08/25/23 16:17: Dr. Kitchen anticipates DC home tomorrow (08/25). RN CM to pt room at this time. Pt states that she prefers [facility] over all of the other options. TC to [facility] and Dora states that they can accept the pt for SN and PT with SOC on Saturday 08/26. Dora states that they need an OT eval to add on OT for home. KWAKU LOW updated the pt and the pt states that she is content with this plan. Green Sheet placed on chart regarding HH and potential updated home oxygen needs. Original Note: RN MARANDA Assessment Face to Face with patient for initial transition planning/care coordination assessment. RN MARANDA introduced self and role at [facility], pt voices understanding. Pt is A&Ox4 and is resting comfortably in bed and is calm. Care providers, pharmacy, and demographics verified. Admitting dx: FTT PCP: Jesse Curran Specialists: Mei (Pulm) Preferred Pharmacy: [facility] during this stay Insurance: [facility] Community Plan ([facility]), [facility] H[facility] Prescription Benefit: Yes LNOK: Amie Josealla (Niece), Eliud (Nephew) Living Arrangements: Pt lives with her Great Nephew Eliud (21 y/o) in a mobile home with 4 steps to enter with a handrail ADLs/IADLs: States independent at baseline Transportation: Niece, Nephew. Pt stopped driving x 1 year ago DME: Home oxygen through [facility]. Verified that the pt current order states 2L continuous via NC and 2L @ HS through CPAP. Pt has a pulse ox, concentrator, and portable oxygen. Pt states that she does not have portability with her currently and states that someone can bring this in for her. Pt also reports that she has a working BGM and supplies. Shower chair. FWW. Rollator. HHC/SNF: States HHC Hx with [place] services. Denies SNF Hx or needs. Pt is active with [facility]. TC to the Agency. [facility] states that the pt CM is Ele Frank. TC to the CM, no answer at this time. VM left. Pt states that she has a home health aide that comes to her home every Wednesday and . Pt?s goal: Home with HHC Plan: Home with HHC. CM to follow for updated O2 Rx. 6-click is 18. PT/OT eval pending. Pt is refusing SNF needs at this time. Pt states that she would benefit from HHC services again. A local list of in-network HHC agencies (printed via [employer]) provided to the pt at this time for review. WCTM. Jessica Mccarty RN CM
[2023-08-25] MEDS: Heparin Injection (Vial) 5,000 UNIT/ML VIAL 5000 UNIT SC ×2 (13:47→21:08)
--- NOTE | 2023-08-25 15:42 | CASEMGMT ---
Social Work SW met with pt to validate advance directives. Pt stating she and her niece Amie were working on documents. SW informed pt that SW can assist in completion of advance directives. Pt does not feel up to it today but is agreeable for SW to visit another day for this. SW will follow up for Advance Directives. SUZY Mcguire
[2023-08-25 16:37] LABS: Bedside Glucose 189 mg/dL (74-106)
[2023-08-25] MEDS: Calcium Carb/Vitamin D 1 TABLET Tablet PO (17:38)
[2023-08-25] MEDS: Pramipexole Di-HCl 0.25 MG Tablet PO (21:05)
[2023-08-25] MEDS: Gabapentin 400 MG Capsule 800 MG PO (21:06)
[2023-08-25] MEDS: Insulin Glargine-YFGN 100 UNIT/ML Pen 10 UNIT SC (21:06)
[2023-08-25] MEDS: Pravastatin 40 MG Tablet PO (21:06)
[2023-08-25] MEDS: Menthol/Lanolin/Calamine/Znox 113 GM Tube 1 APPLIC TOPICAL (21:09)
[2023-08-25] MEDS: Nystatin Powder 15gm Bottle 1 APPLIC TOPICAL (21:09)
[2023-08-25 21:54] LABS: Bedside Glucose 181 mg/dL (74-106)
[2023-08-26] VITALS (13 sets, daily range): BP systolic 94–140; BP diastolic 42–72; PULSE 89–129; RESP 16–22; TEMP 36.4–39.1; O2SAT 92–100
[2023-08-26] MEDS: Ipratropium/Albuterol Sulfate 3 ML AMPUL.NEB INHALATION ×6 (03:23→23:06)
[2023-08-26] MEDS: Acetaminophen 500 MG Tablet 1000 MG PO ×3 (05:02→22:44)
[2023-08-26] MEDS: Heparin Injection (Vial) 5,000 UNIT/ML VIAL 5000 UNIT SC ×3 (05:14→22:43)
--- NOTE | 2023-08-26 05:32 | EKG12_ITS ---
Test Reason : TACHY Blood Pressure : / mmHG Vent. Rate : 114 BPM Atrial Rate : 115 BPM P-R Int : 174 ms QRS Dur : 098 ms QT Int : 334 ms P-R-T Axes : 073 -40 060 degrees QTc Int : 460 ms Sinus tachycardia Left axis deviation Cannot rule out Inferior [place] Cannot rule out Anterior infarct , age undetermined Abnormal ECG When compared with ECG of 26-JUL-2023 16:55, Vent. rate has increased BY 43 BPM Nonspecific T wave abnormality now evident in Lateral leads Confirmed by Jesse Small ([id number]), manuscript editor DESTINY SAENZ ([id number]) on 08/31/2023 7:55:15 AM Referred By: Confirmed By:Jesse Small
[2023-08-26 05:41] LABS: Bedside Glucose 160 mg/dL (74-106)
[2023-08-26] MEDS: 0.9% Normal Saline (500mL Bag) 500 ML 999 ML IV (05:45)
[2023-08-26 05:49] LABS: Hematocrit 38.5 % (37-47); Hemoglobin 12.5 g/dL (12.0-15.0); Mean Corp Hgb Conc 32.5 g/dL (32-36); Mean Corpuscular Hgb 31.7 pg (27.0-32.0); Mean Corpuscular Volume 97.7 fL (81-99); Mean Platelet Vol. 11.4 fl (6.2-12.0); POSITIVE DIFFERENTIAL YES; POSITIVE MORPHOLOGY YES; Platelet Count 212 K/mm3 (150-450); RBC Distribution Width CV 13.6 % (11.6-14.6); RBC Distribution Width SD 49.7 fl (35.1-43.9); Red Blood Count 3.94 M/mm3 (4.2-5.4); White Blood Count 16.9 K/mm3 (4.4-11.0)
[2023-08-26 06:12] LABS: Phosphorus 1.7 mg/dL (2.5-4.9)
[2023-08-26 06:18] LABS: Anion Gap 10 (5-15); BUN 23 mg/dL (7-18); Calcium,Total 8.5 mg/dL (8.5-10.1); Chloride 104 mmol/L (98-107); Creatinine, Serum 1.15 mg/dL (0.55-1.02); EST Glomerular Filtration Rate 49 mL/min (>60); Est Glom Filt Rate - Afr Amer 60 mL/min (>60); Estimated Creatinine Clearance 48.54 ml/min; Glucose 197 mg/dL (74-106); Magnesium 1.4 mg/dL (1.6-2.6); Potassium 3.8 mmol/L (3.5-5.1); Sodium Level 138 mmol/L (136-145)
[2023-08-26] MEDS: oxyCODONE 5 MG Tablet PO ×2 (06:20→17:16)
[2023-08-26 06:21] LABS: Lactic Acid 2.5 mmol/L (0.4-1.9)
--- NOTE | 2023-08-26 08:29 | PN.HOSP_ITS ---
Reason for Visit Reason for Visit: Diagnoses Chronic obstructive pulmonary disease with (acute) exacerbation (08/25/23) Fall from bed, initial encounter (08/25/23) Subjective Subjective 74-year-old female with history of type 2 diabetes, morbid obesity with BMI of 48.2, chronic respiratory failure on home oxygen, presented to the ED with concerns regarding fall at home and worsening shortness of breath. At the time of presentation she was found to have elevated WBCs with low-grade fever and tachycardia. Chest x-ray was unremarkable and she is being treated on the lines of acute exacerbation of COPD. This morning she had an episode of fever with associated delirium and altered mentation. Urgent CT head was done to rule out stroke but no infarct was seen. Her care was escalated and she was transferred from [facility] to PCU. On repeat evaluation there was some improvement in alertness and orientation. Still having fever spikes. Given her presentation blood cultures were sent, and steroids were discontinued as presentation is more concerning for pneumonia and sepsis. Objective Data Objective Data Vital Signs: Vital Signs Temp Pulse Resp BP Pulse Ox O2 Del Method O2 Flow Rate 100.1 F H 108 H 20 H 111/53 L 96 Nasal Cannula 3 08/26/23 06:14 08/26/23 07:15 08/26/23 07:15 08/26/23 06:14 08/26/23 06:14 08/26/23 07:49 08/26/23 07:49 Oxygen Flow Rate (L/min) 3 Oxygen Delivery Method Nasal Cannula Weight: 232 lb 12.8 oz Body Mass Index (BMI) 47.0 Intake & Output: Intake and Output for Last 24 Hours 08/24/23 08/25/23 08/26/23 23:59 23:59 23:59 Intake Total 1246.67 / 1246.67 1500 / 1500 Output Total 750 / 750 900 / 900 Balance 496.67 / 496.67 600 / 600 Lab / Micro Data 08/26/23 05:30 08/26/23 05:30 Labs: Laboratory Results - last 24 hr 08/25/23 10:14: Lactic Acid 3.2 H* 08/25/23 11:14: POC Glucose 107 H 08/25/23 16:18: POC Glucose 189 H 08/25/23 21:04: POC Glucose 181 H 08/26/23 04:58: POC Glucose 160 H 08/26/23 05:30: WBC 16.9 H, RBC 3.94 L, Hgb 12.5, Hct 38.5, MCV 97.7, MCH 31.7, MCHC 32.5, RDW Std Deviation 49.7 H, RDW Coeff of Penny 13.6, Plt Count 212, MPV 11.4, Immature Gran % (Auto) 0.700, Neut % (Auto) 84.1 H, Lymph % (Auto) 1.5 L, [place] % (Auto) 4.1, Eos % (Auto) 9.2 H, Baso % (Auto) 0.4, Absolute Neuts (auto) 14.2 H, Absolute Lymphs (auto) 0.25 L, Nucleated RBC % 0, Sodium 138, Potassium 3.8, Chloride 104, Carbon Dioxide 24.0, Anion Gap 10, BUN 23 H, Creatinine 1.15 H, Estim Creat Clear Calc 48.54, Est GFR (MDRD) Af Amer 60, Est GFR (MDRD) Non- Af 49 L, BUN/Creatinine Ratio 20.0, Glucose 197 H, Lactic Acid 2.5 H*, Calcium 8.5, Phosphorus 1.7 L, Magnesium 1.4 L Micro: Microbiology 08/25/23 08:17 Mucosa - Nasopharyngeal Respiratory Panel (PCR) - Final 08/25/23 05:36 Mucosa - Nose SARS-CoV-2, Influenza & RSV (PCR) - Final ABG Data ABG results: ABG 08/25/23 08:33 Specimen Type ART Sample Site R Brach pH 7.43 Bicarbonate Actual 26.9 H Total CO2 28 Base Excess 3 H O2 Saturation 97 O2 % 4.0 ABG pCO2 40.3 ABG pO2 90 Tobi Test Positive O2 Delivery Device Cannula Vent Mode Not entered Rhythm Strip Rhythm Strip: Sinus Tach Rate: 100 Ectopy: None Physical Exam Const alert and oriented x3 Constitutional Narrative: Intermittent episodes of confusion present Eyes PERRL Neck no lymphadenopathy Resp Resp Narrative: Left-sided crepitations present, intermittent wheezes on the inter scapular region. Cardio regular rate GI normal to inspection, nondistended, normoactive bowel sounds Extremity normal to inspection Neuro oriented x3 Sensorium / Orientation: awake, alert and oriented to person Assessment & Plan Assessment/Plan (1) Hypoxemia: PLAN: Plan 73-year-old female with past medical history of type 2 diabetes, morbid obesity [BMI 40.2] COPD on home oxygen was admitted for evaluation of acute on chronic respiratory failure with worsening shortness of breath and hide features consistent with COPD exacerbation. There was a deviation of her presentation this morning, with an episode of confusion, fever and she has been transferred to the PCU. Given her presentation and examination findings of crepitations on the left side this is more concerning for pneumonia and sepsis. Her lactic acid is also elevated. For this reason we have discontinued the steroids and started her on IV antibiotics. #Community-acquired pneumonia with sepsis -IV ceftriaxone and azithromycin -IV fluids LR at the rate 100 cc/h 1 L -Repeat lactate levels after the fluid bolus -Transfer to PCU and continuous monitoring -Follow-up on the blood cultures # COPD with acute exacerbation -On albuterol every 2 hours as needed -Switch to azithromycin IV -Hold steroids for now -Target saturation 88 to 92% # Adult failure to thrive with falls ? Patient did complain of right flank pain imaging studies however negative for any rib fractures. Patient admitted to regular nursing floor requested for PT OT eval and social sciences instructor to assist with discharge planning # Elevated troponin ? Secondary to suspected myocardial injury from above -Echocardiogram to assess current further function #. Diabetes mellitus type II -patient's oral hypoglycemics held. Placed on long acting insulin, Accu-Cheks a.c. and at bedtime and covered with sliding scale insulin # Class III obesity with BMI of 48 ? Complicating care weight loss advised # Intertrigo ? Requested for nystatin powder to be applied to skin folds # Paroxysmal A-fib ? Patient was in sinus rhythm on admission # Obstructive sleep apnea ? Consistent use of PAP therapy encourage # Depression with anxiety ? Patient is on escitalopram as well as bupropion continue # Restless leg syndrome ? Patient is on ropinirole continue # Acute kidney injury ? Baseline creatinine from 01/30/2023 was 0.68 creatinine on admission was 1.42 started on IV fluids with avoidance of potential nephrotoxic medications # DVT prophylaxis -Heparin SC
[2023-08-26 08:43] LABS: Differential Indicated MANUAL DIFF
[2023-08-26 08:49] LABS: Lymphocyte 2 % (19-41); Metamyelocyte 1 % (0-1); Monocyte 4 % (0-10); Neutrophil-Band 4 % (0-5); Neutrophil-Segmented 89 % (47-70); Total Cells Counted 100 (MANUAL DIFF)
[2023-08-26 08:50] LABS: Absolute Neutrophil Count 14.6 X10^3/uL (2.0-7.7); Lymphocyte # 0.34 X10^3/ul (0.83-4.51); Neutrophil # 14.57 X10^3/uL (2.7-7.7)
[2023-08-26 08:51] LABS: Absolute Lymphocyte Count 0.34 X10^3/uL (0.83-4.51); Platelet Estimate ADEQUATE (ADEQ); Red Cell Morphology NORM C+C NORMAL (NORM C&C)
[2023-08-26 09:46] LABS: Reflex Lactate? Y
--- NOTE | 2023-08-26 10:18 | CT_ITS ---
STUDY: CT BRAIN WITH AND WITHOUT CONTRAST REASON FOR EXAM: Female, 73 years old. confusion RADIATION DOSAGE (If Supplied By Facility): CTDIvol = ( 44.99 ) mGy, DLP = ( 1580.97 ) mGycm TECHNIQUE: Transaxial CT imaging of the brain was performed pre and post contrast administration. The examination was performed with intravenous administration of IV 50mL Isovue-370. Individualized dose optimization techniques were used for this CT. COMPARISON: None. FINDINGS: Normal soft tissue structures. Normal calvarium. There is mild cerebral atrophy with widening of the extra-axial spaces and ventricular dilatation. There are areas of decreased attenuation within the white matter tracts of the supratentorial brain, consistent with microvascular disease changes. There are small punctate calcifications of the basal ganglia which are seen in the aging brain as a normal variant. Normal brainstem. Normal cerebellum. No suspicious enhancing lesion. There is no intracranial hemorrhage. There are no findings of an acute ischemic infarction. Normal visualized paranasal sinuses. CT/Brain/Head W/WO Contrast IMPRESSION: Age consistent senescent changes, no acute hemorrhage or midline shift, mass effect or enhancing lesion Electronically Signed: Aftab Marquez MD at 11:13 EDT ,
[2023-08-26 10:23] LABS: Allen Test Positive; Base Excess -1 mmol/L (-2 to +2); Bicarbonate 23.3 mmol/L (22-26); Blood Gas Specimen Type ART; Mode Not entered; O2 Delivery Device Cannula; PO2 99 mmHG (75-100); SITE R Radial; SO2 98 % (95-99); Total Carbon Dioxide 24 mmol/L; pCO2 32.3 mmHg (35-45); pH 7.47 (7.35-7.45)
[2023-08-26] MEDS: Gabapentin 400 MG Capsule PO (11:34)
[2023-08-26] MEDS: Calcium Carb/Vitamin D 1 TABLET Tablet PO ×2 (11:34→16:29)
[2023-08-26] MEDS: Escitalopram Oxalate 20 MG Tablet PO (11:35)
[2023-08-26] MEDS: Empagliflozin 25 MG Tablet PO (11:35)
[2023-08-26] MEDS: buPROPion (XL) 150 MG TABLET.XL PO (11:35)
[2023-08-26] MEDS: Menthol/Lanolin/Calamine/Znox 113 GM Tube 1 APPLIC TOPICAL ×2 (11:36→22:43)
[2023-08-26] MEDS: Aspirin E.C. 81 MG Tablet PO (11:36)
[2023-08-26] MEDS: Meloxicam 15 MG Tablet PO (11:36)
[2023-08-26] MEDS: Nystatin Powder 15gm Bottle 1 APPLIC TOPICAL ×2 (11:37→22:45)
[2023-08-26 12:42] LABS: Bedside Glucose 139 mg/dL (74-106)
[2023-08-26] MEDS: Ceftriaxone 2 GM in 0.9% Normal Saline (50mL MB+) 50 ML IV (13:08)
[2023-08-26] MEDS: Azithromycin 500 MG in Dextrose 5%-Water (250mL Bag) 250 ML 250 MG IV (13:49)
--- NOTE | 2023-08-26 15:07 | EKG12_ITS ---
Test Reason : CHANGE Blood Pressure : / mmHG Vent. Rate : 152 BPM Atrial Rate : 138 BPM P-R Int : 144 ms QRS Dur : 096 ms QT Int : 300 ms P-R-T Axes : 042 -67 083 degrees QTc Int : 477 ms Critical Test Result: High HR Paroxysmal Atrial Fibrillation and Sinus Tachycardia Left anterior fascicular block Cannot rule out Inferior infarct , age undetermined Cannot rule out Anterior infarct , age undetermined Abnormal ECG When compared with ECG of 26-AUG-2023 14:58, MANUAL COMPARISON REQUIRED, DATA IS UNCONFIRMED Confirmed by GREER BRAGG, BOB ([id number]), mapping editor DESTINY SAENZ ([id number]) on 08/30/2023 10:25:45 AM Referred By: DAVID Confirmed By:BOB BUTTERFIELD MD
[2023-08-26 15:14] LABS: Lactic Acid 3.4 mmol/L (0.4-1.9)
--- NOTE | 2023-08-26 16:26 | ECHOD_ITS ---
Reason For Study: AFIB Procedure This was a 2D Doppler, Color Flow transthoracic echocardiogram. The study was technically difficult. Definity deferred due to patient becoming sick. Exam performed portable in patient room. Left Ventricle Normal LV size. Left ventricular systolic function is normal. The left ventricular ejection fraction is 60 %. No regional wall motion abnormalities noted. Right Ventricle Normal RV size. Normal systolic function. Mitral Valve There is moderate mitral annular calcification. Great Vessels Normal aortic root. Pericardium/Pleural No pericardial effusion. MMode/2D Measurements & Calculations Ao root diam: 2.6 cm LAV(MOD-bp): 47.0 ml LA A4 area: 18.9 cm2 LAV(MOD-bp) Indexed: 24.2 ml/m2 LAV(MOD-sp2): 38.2 ml LAV(MOD-sp4): 45.9 ml LA dimension(2D): 3.8 cm RA A4 area: 12.2 cm2 TAPSE: 2.4 cm Doppler Measurements & Calculations Ao V2 max: 162.3 cm/sec LV V1 max: 125.9 cm/sec Ao max P.6 mmHg LV V1 max P.3 mmHg Ao V2 mean: 122.9 cm/sec LV V1 mean P.9 mmHg Ao mean P.7 mmHg LV V1 mean: 93.3 cm/sec Ao V2 VTI: 23.5 cm LV V1 VTI: 23.3 cm AV (velocity ratio): 0.99 ECHO/Echo Complete Interpretation Summary Normal LV size. Left ventricular systolic function is normal. The left ventricular ejection fraction is 60 %. There is moderate mitral annular calcification. Ordering Physician: Daryl Verduzco Referring Physician: RICHIE HEREDIA Performed By: Laura Moeller and Student
[2023-08-26] MEDS: 0.9% Normal Saline (1000mL) 1,000 ML 100 ML IV (16:28)
[2023-08-26] MEDS: Insulin Lispro 100 UNIT/ML INSULN.PEN SC ×2 (16:32→22:46)
[2023-08-26 16:52] LABS: Bedside Glucose 155 mg/dL (74-106)
[2023-08-26] MEDS: Acetaminophen 325 MG Tablet 650 MG PO (17:16)
[2023-08-26] MEDS: Magnesium Sulfate 4gm/100mL 4 GM/100 ML IV.SOLN. IV (17:17)
[2023-08-26] MEDS: Sodium Phosphate/Na Biphos 30 MMOL in 0.9% Normal Saline (250mL Bag) 250 ML 62.5 MMOL IV (17:18)
[2023-08-26 22:24] LABS: Bedside Glucose 188 mg/dL (74-106)
[2023-08-26] MEDS: Gabapentin 400 MG Capsule 800 MG PO (22:41)
[2023-08-26] MEDS: Pravastatin 40 MG Tablet PO (22:43)
[2023-08-26] MEDS: Insulin Glargine-YFGN 100 UNIT/ML Pen 10 UNIT SC (22:46)
[2023-08-27] VITALS (12 sets, daily range): BP systolic 91–140; BP diastolic 53–86; PULSE 89–129; RESP 16–20; TEMP 36.1–38.1; O2SAT 93–99
[2023-08-27] MEDS: oxyCODONE 5 MG Tablet PO ×2 (01:56→08:41)
[2023-08-27] MEDS: 0.9% Normal Saline (1000mL) 1,000 ML 100 ML IV ×3 (02:30→20:38)
[2023-08-27] MEDS: Ipratropium/Albuterol Sulfate 3 ML AMPUL.NEB INHALATION ×2 (03:44→07:03)
[2023-08-27] MEDS: Heparin Injection (Vial) 5,000 UNIT/ML VIAL 5000 UNIT SC ×3 (05:32→20:32)
[2023-08-27] MEDS: Acetaminophen 500 MG Tablet 1000 MG PO ×3 (05:33→20:33)
[2023-08-27 05:58] LABS: Bedside Glucose 79 mg/dL (74-106)
[2023-08-27] MEDS: Gabapentin 400 MG Capsule PO (07:43)
[2023-08-27] MEDS: Calcium Carb/Vitamin D 1 TABLET Tablet PO ×2 (07:44→15:55)
[2023-08-27] MEDS: Aspirin E.C. 81 MG Tablet PO (07:44)
[2023-08-27] MEDS: Menthol/Lanolin/Calamine/Znox 113 GM Tube 1 APPLIC TOPICAL ×2 (07:44→20:32)
[2023-08-27] MEDS: Nystatin Powder 15gm Bottle 1 APPLIC TOPICAL ×2 (07:45→20:33)
[2023-08-27] MEDS: buPROPion (XL) 150 MG TABLET.XL PO (07:46)
[2023-08-27] MEDS: Escitalopram Oxalate 20 MG Tablet PO (07:46)
[2023-08-27] MEDS: Ceftriaxone 2 GM in 0.9% Normal Saline (50mL MB+) 50 ML IV (08:24)
[2023-08-27] MEDS: Meloxicam 15 MG Tablet PO (08:41)
[2023-08-27 09:34] LABS: Pathologist Review Reviewed
[2023-08-27] MEDS: Azithromycin 500 MG in Dextrose 5%-Water (250mL Bag) 250 ML 250 MG IV (09:46)
--- NOTE | 2023-08-27 10:44 | EKG12_ITS ---
Test Reason : TACHY Blood Pressure : / mmHG Vent. Rate : 120 BPM Atrial Rate : 120 BPM P-R Int : 158 ms QRS Dur : 096 ms QT Int : 318 ms P-R-T Axes : 065 -45 071 degrees QTc Int : 449 ms Sinus tachycardia with Premature atrial complexes Low voltage QRS Left anterior fascicular block Cannot rule out Inferior infarct , age undetermined Cannot rule out Anterior infarct , age undetermined Abnormal ECG When compared with ECG of 26-AUG-2023 05:31, MANUAL COMPARISON REQUIRED, DATA IS UNCONFIRMED Confirmed by Jesse Small ([id number]), newspaper managing editor DESTINY SAENZ ([id number]) on 08/31/2023 7:54:48 AM Referred By: Confirmed By:Jesse Small
--- NOTE | 2023-08-27 11:13 | EKG12_ITS ---
Test Reason : REPEAT Blood Pressure : / mmHG Vent. Rate : 139 BPM Atrial Rate : 139 BPM P-R Int : 154 ms QRS Dur : 098 ms QT Int : 294 ms P-R-T Axes : 068 -60 075 degrees QTc Int : 447 ms Sinus tachycardia Left anterior fascicular block Inferior infarct , age undetermined Abnormal ECG When compared with ECG of 27-AUG-2023 10:48, MANUAL COMPARISON REQUIRED, DATA IS UNCONFIRMED Confirmed by GREER BRAGG, BOB ([id number]), publications editor DESTINY SAENZ ([id number]) on 08/30/2023 10:26:24 AM Referred By: DAVID Confirmed By:BOB BUTTERFIELD MD
--- NOTE | 2023-08-27 12:10 | CASEMGMT ---
Addendum entered by Willa Kemp 08/27/23 12:32: [facility] states they are able to accept pt w/SOC slated for 08/30 w/anticipated discharge 08/29. Original Note: KWAKU LOW NOTE: Call received from [facility], who states with pt's change in medical condition they will need new HHC order placed and new referral if HHC is still the plan. Therapy notes reviewed from this AM, needing 2 assist, and additional therapy recommended. KWAKU LOW to room. Introduced self and role. Discussed discharge planning. Pt verifies she is more weak than usual. Broached topic of SNF. Pt adamant she does not want to go to a SNF and wishes to discharge home. She states she has enough help @ home that she could have 2 people w/her when up ambulating, if needed. She states her great-niece, Michell, is w/her basically all the time. She also states her niece, Amie, comes in the AM and PM, and her great nephew, Elgin, comes every day around 4 PM. She also has aides 2 x's/week. She states she feels she will be safe @ home and plans to talk w/her family today to ensure they are aware she is more weak than usual. Discussed HHC and she verifies she does still want [facility] @ [place]. KWAKU LOW spoke w/Elizabeth from therapy who states with the help available @ home, she feels pt is safe to discharge home. Call placed to [facility] and referral placed. Per Dr Verduzco, he anticipates pt will not be medically ready until at least Wed. Paula made aware of same. Awaiting response re: acceptance. Domi SELBY RN, CM
[2023-08-27 12:26] LABS: Bedside Glucose 136 mg/dL (74-106)
--- NOTE | 2023-08-27 13:32 | CASEMGMT ---
Social Work SW checked in w/pt to see if she spoke w/family yet about needing more support at home, pt states she sent them messages and is waiting for them to call her back. SW spoke w/pt about completing LW/POA. Pt states wants to speak w/her family about this before doing the documents, not ready to do them today. SW provided to pt blank forms along with a RAC card to call the SW dept should she want to come in at a later time to complete the paperwork. Pt states understanding. ANTHONY Reed
[2023-08-27 14:21] LABS: Absolute Lymphocyte Count 0.66 X10^3/uL (0.83-4.51); Absolute Neutrophil Count 13.3 X10^3/uL (2.0-7.7); Basophil# 0.04 X10^3/uL; Basophil% 0.3 % (0-1); Eosinophil# 0.01 X10^3/uL; Eosinophils% 0.1 % (0-5); Hematocrit 37.1 % (37-47); Hemoglobin 11.9 g/dL (12.0-15.0); Lymphocyte # 0.66 X10^3/ul (0.83-4.51); Lymphocyte % 4.4 % (19-41); Mean Corp Hgb Conc 32.1 g/dL (32-36); Mean Corpuscular Hgb 31.2 pg (27.0-32.0); Mean Corpuscular Volume 97.4 fL (81-99); Mean Platelet Vol. 12.1 fl (6.2-12.0); Monocyte# 0.65 X10^3/uL; Monocyte% 4.4 % (0-10); NRBC Flagged by Analyzer 0 % (0-5); Neutrophil # 13.28 X10^3/uL (2.7-7.7); Neutrophil % 89.3 % (47-70); POSITIVE MORPHOLOGY YES; Platelet Count 173 K/mm3 (150-450); RBC Distribution Width CV 13.9 % (11.6-14.6); RBC Distribution Width SD 50.1 fl (35.1-43.9); Red Blood Count 3.81 M/mm3 (4.2-5.4); White Blood Count 14.9 K/mm3 (4.4-11.0)
[2023-08-27 14:33] LABS: Differential Indicated SCAN CRITERIA MET
[2023-08-27 14:40] LABS: ALB/GLOB Ratio 0.5 RATIO (0.9-2.4); AST(SGOT) 20 U/L (15-37); Alanine Aminotransfer ALT/SGPT 11 U/L (13-56); Albumin, Serum 2.1 g/dL (3.2-5.0); Alkaline Phosphatase 96 U/L (45-117); Anion Gap 9 (5-15); BUN 34 mg/dL (7-18); BUN/Creat Ratio 24.6 RATIO (10-20); Calcium,Total 8.4 mg/dL (8.5-10.1); Chloride 104 mmol/L (98-107); Creatinine, Serum 1.38 mg/dL (0.55-1.02); EST Glomerular Filtration Rate 40 mL/min (>60); Est Glom Filt Rate - Afr Amer 48 mL/min (>60); Estimated Creatinine Clearance 40.45 ml/min; Globulin 4.1 g/dL (2.2-4.2); Glucose 175 mg/dL (74-106); Potassium 3.4 mmol/L (3.5-5.1); Protein, Total 6.2 g/dL (6.4-8.2); Sodium Level 138 mmol/L (136-145)
--- NOTE | 2023-08-27 14:49 | PCM.PN.HOSP ---
Reason for Visit Reason for Visit: Diagnoses Chronic obstructive pulmonary disease with (acute) exacerbation (08/26/23) Hypoxemia (08/26/23) Fall from bed, initial encounter (08/26/23) Subjective Subjective No active symptoms, 1 fever spike this morning, participating actively with physical therapy. Objective Data Objective Data Leukocytosis is improving Vital Signs: Vital Signs Temp Pulse Resp BP Pulse Ox O2 Del Method O2 Flow Rate 98.4 F 119 H 18 102/59 L 99 Nasal Cannula 2 08/27/23 13:30 08/27/23 13:30 08/27/23 13:30 08/27/23 13:30 08/27/23 13:30 08/27/23 13:30 08/27/23 13:30 Oxygen Flow Rate (L/min) 2 Oxygen Delivery Method Nasal Cannula Weight: 232 lb 12.8 oz Body Mass Index (BMI) 47.0 Intake & Output: Intake and Output for Last 24 Hours 08/25/23 08/26/23 08/27/23 23:59 23:59 23:59 Intake Total 1246.67 / 1246.67 2165 / 2165 3515 / 3515 Output Total 750 / 750 900 / 900 825 / 825 Balance 496.67 / 496.67 1265 / 1265 2690 / 2690 Lab / Micro Data Attestation: I reviewed the patient's lab results. 08/27/23 14:04 08/27/23 14:04 Labs: Laboratory Results - last 24 hr 08/26/23 05:30: Diff Path Review Reviewed 08/26/23 14:25: Lactic Acid 3.4 H* 08/26/23 16:31: POC Glucose 155 H 08/26/23 21:58: POC Glucose 188 H 08/27/23 05:26: POC Glucose 79 08/27/23 11:54: POC Glucose 136 H 08/27/23 14:04: WBC 14.9 H, RBC 3.81 L, Hgb 11.9 L, Hct 37.1, MCV 97.4, MCH 31.2, MCHC 32.1, RDW Std Deviation 50.1 H, RDW Coeff of Penny 13.9, Plt Count 173, MPV 12.1 H, Immature Gran % (Auto) 1.500 H, Neut % (Auto) 89.3 H, Lymph % (Auto) 4.4 L, [place] % (Auto) 4.4, Eos % (Auto) 0.1, Baso % (Auto) 0.3, Absolute Neuts (auto) 13.3 H, Absolute Lymphs (auto) 0.66 L, Nucleated RBC % 0, Sodium 138, Potassium 3.4 L, Chloride 104, Carbon Dioxide 25.0, Anion Gap 9, BUN 34 H, Creatinine 1.38 H, Estim Creat Clear Calc 40.45, Est GFR (MDRD) Af Amer 48 L, Est GFR (MDRD) Non-Af 40 L, BUN/Creatinine Ratio 24.6 H, Glucose 175 H, Calcium 8.4 L, Total Bilirubin 0.20, AST 20, ALT 11 L, Alkaline Phosphatase 96, Total Protein 6.2 L, Albumin 2.1 L, Globulin 4.1, Albumin/Globulin Ratio 0.5 L Micro: Microbiology 08/26/23 10:10 Mucosa - Nasopharyngeal SARS-CoV-2, Influenza & RSV (PCR) - Final 08/25/23 08:17 Mucosa - Nasopharyngeal Respiratory Panel (PCR) - Final 08/25/23 05:36 Mucosa - Nose SARS-CoV-2, Influenza & RSV (PCR) - Final Rhythm Strip Rhythm Strip: Sinus Tach Rate: 100 Ectopy: None Physical Exam Const alert and oriented x3 HEENT head/scalp atraumatic Eyes PERRL Neck no lymphadenopathy Resp normal respiratory effort Resp Narrative: No adventitious sounds present Cardio regular rate and regular rhythm GI normal to inspection, nondistended, normoactive bowel sounds Extremity normal to inspection Neuro oriented x3, CN's II-XII intact bilaterally and moves all extremities Psych affect normal Assessment & Plan Assessment/Plan (1) Accidental fall from bed: (2) Acute exacerbation of chronic obstructive pulmonary disease (COPD): PLAN: Plan 73-year-old female with past medical history of type 2 diabetes, morbid obesity [BMI 40.2] COPD on home oxygen was admitted for evaluation of acute on chronic respiratory failure with worsening shortness of breath and hide features consistent with COPD exacerbation. There was a deviation of her presentation this morning, with an episode of confusion, fever and she has been transferred to the PCU. With IV antibiotics her clinical symptoms have improved, and she is working now with physical therapy. Will continue antibiotics for now. #Community-acquired pneumonia with sepsis -IV ceftriaxone and azithromycin -IV fluids LR at the rate 100 cc/h 1 L -Follow-up on the blood cultures # COPD with acute exacerbation -On albuterol every 2 hours as needed -Switch to azithromycin IV -Hold steroids for now -Target saturation 88 to 92% # Adult failure to thrive with falls ? Patient did complain of right flank pain imaging studies however negative for any rib fractures. Patient admitted to regular nursing floor requested for PT OT eval and social work coordinator to assist with discharge planning # Elevated troponin ? Secondary to suspected myocardial injury from above -Echocardiogram to assess current further function #. Diabetes mellitus type II -patient's oral hypoglycemics held. Placed on long acting insulin, Accu-Cheks a.c. and at bedtime and covered with sliding scale insulin # Class III obesity with BMI of 48 ? Complicating care weight loss advised # Intertrigo ? Requested for nystatin powder to be applied to skin folds # Paroxysmal A-fib ? Patient was in sinus rhythm on admission # Obstructive sleep apnea ? Consistent use of PAP therapy encourage # Depression with anxiety ? Patient is on escitalopram as well as bupropion continue # Restless leg syndrome ? Patient is on ropinirole continue # Acute kidney injury ? Baseline creatinine from 01/30/2023 was 0.68 creatinine on admission was 1.42 started on IV fluids with avoidance of potential nephrotoxic medications # DVT prophylaxis -Heparin SC Charges/Coding Visit Charges Inpatient E&M: 86797 Subs Hosp L2
[2023-08-27] MEDS: Potassium Chloride Oral Tablet 20 MEQ 40 MEQ PO (15:55)
[2023-08-27] MEDS: Insulin Lispro 100 UNIT/ML INSULN.PEN SC (16:00)
[2023-08-27 16:18] LABS: Bedside Glucose 179 mg/dL (74-106)
[2023-08-27] MEDS: Gabapentin 400 MG Capsule 800 MG PO (20:32)
[2023-08-27] MEDS: Pravastatin 40 MG Tablet PO (20:32)
[2023-08-27] MEDS: Insulin Glargine-YFGN 100 UNIT/ML Pen 10 UNIT SC (20:38)
[2023-08-27 20:57] LABS: Bedside Glucose 123 mg/dL (74-106)
--- NOTE | 2023-08-27 22:56 | NURSING ---
Previously, IV's were being documented in the Right AC and Right forearm. This RN assessed patient and noticed that the IV's are both in the left arm. I added those IV's to the assessment and made the right side IV's inactive.
[2023-08-28] VITALS (10 sets, daily range): BP systolic 103–148; BP diastolic 58–90; PULSE 80–123; RESP 16–26; TEMP 36.6–36.9; O2SAT 92–99
[2023-08-28] MEDS: oxyCODONE 5 MG Tablet PO ×3 (01:07→17:36)
[2023-08-28] MEDS: Ipratropium/Albuterol Sulfate 3 ML AMPUL.NEB INHALATION ×2 (03:27→07:24)
[2023-08-28] MEDS: Ondansetron 4 MG/2 ML Vial IV (05:38)
[2023-08-28] MEDS: Heparin Injection (Vial) 5,000 UNIT/ML VIAL 5000 UNIT SC ×3 (05:38→20:24)
[2023-08-28] MEDS: 0.9% Normal Saline (1000mL) 1,000 ML 100 ML IV ×2 (05:39→15:34)
[2023-08-28 06:49] LABS: Bedside Glucose 101 mg/dL (74-106)
--- NOTE | 2023-08-28 08:30 | PN.HOSP_ITS ---
Reason for Visit Reason for Visit: Diagnoses Chronic obstructive pulmonary disease with (acute) exacerbation (08/26/23) Hypoxemia (08/26/23) Fall from bed, initial encounter (08/26/23) Objective Data Objective Data Vital Signs: Vital Signs Temp Pulse Resp BP Pulse Ox O2 Del Method O2 Flow Rate 97.9 F 80 16 103/90 H 92 Nasal Cannula 2 08/28/23 03:00 08/28/23 07:24 08/28/23 07:24 08/28/23 03:00 08/28/23 07:24 08/28/23 07:52 08/28/23 07:52 Oxygen Flow Rate (L/min) 2 Oxygen Delivery Method Nasal Cannula Weight: 232 lb 12.8 oz Body Mass Index (BMI) 47.0 Intake & Output: Intake and Output for Last 24 Hours 08/26/23 08/27/23 08/28/23 23:59 23:59 23:59 Intake Total 2165 / 2165 4968.33 / 4968.33 901.67 / 901.67 Output Total 900 / 900 1175 / 1175 Balance 1265 / 1265 3793.33 / 3793.33 901.67 / 901.67 Lab / Micro Data 08/27/23 14:04 08/27/23 14:04 Labs: Laboratory Results - last 24 hr 08/26/23 05:30: Diff Path Review Reviewed 08/27/23 11:54: POC Glucose 136 H 08/27/23 14:04: WBC 14.9 H, RBC 3.81 L, Hgb 11.9 L, Hct 37.1, MCV 97.4, MCH 31.2, MCHC 32.1, RDW Std Deviation 50.1 H, RDW Coeff of Penny 13.9, Plt Count 173, MPV 12.1 H, Immature Gran % (Auto) 1.500 H, Neut % (Auto) 89.3 H, Lymph % (Auto) 4.4 L, [place] % (Auto) 4.4, Eos % (Auto) 0.1, Baso % (Auto) 0.3, Absolute Neuts (auto) 13.3 H, Absolute Lymphs (auto) 0.66 L, Nucleated RBC % 0, Sodium 138, P otassium 3.4 L, Chloride 104, Carbon Dioxide 25.0, Anion Gap 9, BUN 34 H, C reatinine 1.38 H, Estim Creat Clear Calc 40.45, Est GFR (MDRD) Af Amer 48 L, Est GFR (MDRD) Non-Af 40 L, BUN/Creatinine Ratio 24.6 H, Glucose 175 H, Calcium 8.4 L, Total Bilirubin 0.20, AST 20, ALT 11 L, Alkaline Phosphatase 96, Total Protein 6.2 L, Albumin 2.1 L, Globulin 4.1, Albumin/Globulin Ratio 0.5 L 08/27/23 15:57: POC Glucose 179 H 08/27/23 20:37: POC Glucose 123 H 08/28/23 06:31: POC Glucose 101 Micro: Microbiology 08/26/23 10:10 Mucosa - Nasopharyngeal SARS-CoV-2, Influenza & RSV (PCR) - Final 08/25/23 08:17 Mucosa - Nasopharyngeal Respiratory Panel (PCR) - Final 08/25/23 05:36 Mucosa - Nose SARS-CoV-2, Influenza & RSV (PCR) - Final Radiography Diagnostic Testing: Radiology Impression Echocardiogram 08/26/23 16:26 Interpretation Summary Normal LV size. Left ventricular systolic function is normal. The left ventricular ejection fraction is 60 %. There is moderate mitral annular calcification. Ordering Physician: Daryl Verduzco Referring Physician: JESSE HEREDIA Performed By: Laura Moeller and Student Rhythm Strip Rhythm Strip: Sinus Tach Rate: 100 Ectopy: None Physical Exam Narrative Seen and examined. The patient complain of leg cramps, starts from heel of right leg and then goes to calf. She has a history of restless leg disease and is on Restoril 0.5 to 1 mg daily and as needed. Patient also found tachycardic heart rate 123/min. Patient has history of paroxysmal A-fib. Physical exam General: Alert, Oriented x3, Cooperative. Morbid obesity BMI 47.0 kg/m?. HEENT: Atraumatic, PERRLA, EOMI, Normocephalic Oral: No Gingival or Mucosal Lesions/ Ulcerations. Deep pharyngeal structures could not be visualized Neck: Supple, No JVD, Negative Carotid Bruits Chest wall/Lungs: Air entry diminished in bilateral lung bases. No crepitation/rhonchi Cardiovascular: Irregular rate and rhythm, multiple PVCs normal S1, Normal S2, sinus tachycardia. Abdomen: Bowel Sounds Present, Soft, Non Tender, Non-Distended : No dysuria. No renal angle tenderness. No suprapubic tenderness. Extremities: Mild bilateral pitting edema, Capillary Refill Less than 3 Seconds Skin: No rashes, No breakdown Musculoskeletal: Muscle tenderness present on right calf. Muscle strength 4/5 at knees and hip joints. Bilateral TKR. Right knee multiple surgical scar. ROM limited. Neurological: Cranial nerves II-XII grossly intact, DTR 2+/4. No acute focal neurological deficit. Psych/Mental Status: Flat affect. Assessment & Plan Assessment/Plan (1) Accidental fall from bed: (2) Acute exacerbation of chronic obstructive pulmonary disease (COPD): PLAN: Plan 73-year-old female with past medical history of type 2 diabetes, morbid obesity, COPD on home oxygen was admitted for evaluation of acute on chronic respiratory failure with worsening shortness of breath and hide features consistent with COPD exacerbation. There was a deviation of her presentation this morning, with an episode of confusion, fever and she has been transferred to the PCU. With IV antibiotics her clinical symptoms have improved, and she is working now with physical therapy. continue antibiotics for now. #Community-acquired pneumonia. -IV ceftriaxone and azithromycin. Respiratory panel and triple PCR test for flu, RSV and COVID-19 are negative. No acute fever. Patient has leukocytosis with immature granulocyte 1.5%. Mainly polymorphs. Patient has positive SIRS criteria including tachycardia, tachypnea but has history of paroxysmal A-fib and is on metoprolol succinate 50 mg daily which was held. BP dropped to 91/53, 1 time on 08/26 noontime. Low- grade fever temperature 100.5 ?F. Patient does not look toxic and does not meet criteria for organ dysfunction. The patient has lactic acidosis but that might be confounding factors for example metformin 1 g and multiple other comorbidities. # COPD with acute exacerbation -On albuterol every 2 hours as needed -Switch to azithromycin IV -Hold steroids for now -Target saturation 88 to 92% # Adult failure to thrive with falls ? Patient did complain of right flank pain imaging studies however negative for any rib fractures. Patient admitted to regular nursing floor requested for PT OT eval and psychotherapist social worker to assist with discharge planning # Elevated troponin ? Secondary to suspected myocardial injury from above -Echocardiogram reported EF 65% with normal systolic function. #. Diabetes mellitus type II -patient's oral hypoglycemics held. Placed on long acting insulin, Accu-Cheks a.c. and at bedtime and covered with sliding scale insulin # Class III obesity with BMI of 48 ? Complicating care weight loss advised # Intertrigo ? Requested for nystatin powder to be applied to skin folds # Paroxysmal A-fib ? Patient was in sinus rhythm on admission # Obstructive sleep apnea ? Consistent use of PAP therapy encourage # Depression with anxiety ? Patient is on escitalopram as well as bupropion continue # Restless leg syndrome ? Patient is on ropinirole continue # Acute kidney injury ? Baseline creatinine from 01/30/2023 was 0.68 creatinine on admission was 1.42 started on IV fluids with avoidance of potential nephrotoxic medications 08/27: Creatinine fluctuates, decreased to 1.15 and then 1.38. Patient on bumetanide 1 mg daily at home currently on hold # DVT prophylaxis -Heparin SC Total time of the visit including total time spent in counseling or coordination of care, (more than 50% of the total time, spent in obtaining medical information from nurses and other ancillary care providers,explaining to the patient about labs, imaging, diagnosis and management of active complex medical conditions), multiple EKGs, discussion with nursing staff, review of labs and imaging is 40 minutes. Clinical Impression(s) from Imaging Studies Ribs w/Chest X-Ray 08/25/23 05:12 IMPRESSION: No evidence of displaced rib fracture. Electronically Signed: Maximo Khoury MD at 7:10 EDT , Pelvis X-Ray 08/25/23 05:22 IMPRESSION: No evidence of displaced pelvic fracture. Electronically Signed: Jesse Lopez MD at 7:09 EDT , Brain CT 08/26/23 10:18 IMPRESSION: Age consistent senescent changes, no acute hemorrhage or midline shift, mass effect or enhancing lesion Electronically Signed: Aftab Marquez MD at 11:13 EDT , Echocardiogram 08/26/23 16:26 Interpretation Summary Normal LV size. Left ventricular systolic function is normal. The left ventricular ejection fraction is 60 %. There is moderate mitral annular calcification. Ordering Physician: Daryl Verduzco Referring Physician: JESSE HEREDIA Performed By: Laura Moeller and Student Charges/Coding Visit Charges Inpatient E&M: 03607 Subs Hosp L3
[2023-08-28] MEDS: Meloxicam 7.5 MG Tablet PO (09:28)
[2023-08-28] MEDS: Escitalopram Oxalate 20 MG Tablet PO (09:28)
[2023-08-28] MEDS: Aspirin E.C. 81 MG Tablet PO (09:28)
[2023-08-28] MEDS: buPROPion (XL) 150 MG TABLET.XL PO (09:28)
[2023-08-28] MEDS: Empagliflozin 25 MG Tablet PO (09:30)
[2023-08-28] MEDS: Calcium Carb/Vitamin D 1 TABLET Tablet PO ×2 (09:30→17:36)
[2023-08-28] MEDS: Menthol/Lanolin/Calamine/Znox 113 GM Tube 1 APPLIC TOPICAL (09:31)
[2023-08-28] MEDS: Nystatin Powder 15gm Bottle 1 APPLIC TOPICAL ×2 (09:31→20:25)
[2023-08-28] MEDS: Metoprolol(XL)Succ 50 MG Tablet PO (09:38)
[2023-08-28] MEDS: Gabapentin 400 MG Capsule PO (09:39)
[2023-08-28] MEDS: Azithromycin 500 MG in Dextrose 5%-Water (250mL Bag) 250 ML 250 MG IV (09:40)
[2023-08-28 09:49] LABS: Magnesium 2.5 mg/dL (1.6-2.6); Phosphorus 2.6 mg/dL (2.5-4.9)
[2023-08-28] MEDS: Ipratropium 0.5 MG/2.5 ML SOLUTION INHALATION ×3 (11:11→22:24)
[2023-08-28] MEDS: Ceftriaxone 2 GM in 0.9% Normal Saline (50mL MB+) 50 ML IV (11:11)
[2023-08-28] MEDS: Senna/Docusate Sodium 1 Tablet 2 TABLET PO ×2 (11:17→20:22)
[2023-08-28 11:40] LABS: Bedside Glucose 138 mg/dL (74-106)
--- NOTE | 2023-08-28 14:44 | CASEMGMT ---
Social Work SW assisted pt in completing Living will and health care POA naming her niece Amie Maria. Copy placed on chart and original given to pt. SUZY Mcguire
[2023-08-28] MEDS: Acetaminophen 500 MG Tablet 1000 MG PO ×2 (15:23→20:22)
[2023-08-28] MEDS: Acetaminophen 325 MG Tablet 650 MG PO (17:37)
[2023-08-28 17:40] LABS: Bedside Glucose 96 mg/dL (74-106)
[2023-08-28] MEDS: Gabapentin 400 MG Capsule 800 MG PO (20:22)
[2023-08-28] MEDS: Pramipexole Di-HCl 0.5 MG Tablet PO (20:22)
[2023-08-28] MEDS: Pravastatin 40 MG Tablet PO (20:24)
[2023-08-28 21:03] LABS: Bedside Glucose 88 mg/dL (74-106)
[2023-08-29] VITALS (8 sets, daily range): BP systolic 114–135; BP diastolic 59–72; PULSE 76–88; RESP 15–18; TEMP 36.1–36.5; O2SAT 94–98
[2023-08-29] MEDS: 0.9% Normal Saline (1000mL) 1,000 ML 100 ML IV (01:12)
[2023-08-29 05:50] LABS: Absolute Lymphocyte Count 1.15 X10^3/uL (0.83-4.51); Absolute Neutrophil Count 11.4 X10^3/uL (2.0-7.7); Basophil# 0.05 X10^3/uL; Basophil% 0.4 % (0-1); Eosinophil# 0.07 X10^3/uL; Eosinophils% 0.5 % (0-5); Hematocrit 35.8 % (37-47); Hemoglobin 11.4 g/dL (12.0-15.0); Lymphocyte # 1.15 X10^3/ul (0.83-4.51); Lymphocyte % 8.5 % (19-41); Mean Corp Hgb Conc 31.8 g/dL (32-36); Mean Corpuscular Hgb 31.4 pg (27.0-32.0); Mean Corpuscular Volume 98.6 fL (81-99); Monocyte# 0.75 X10^3/uL; Monocyte% 5.5 % (0-10); NRBC Flagged by Analyzer 0 % (0-5); Neutrophil # 11.43 X10^3/uL (2.7-7.7); Neutrophil % 84.6 % (47-70); Platelet Count 148 K/mm3 (150-450); RBC Distribution Width SD 51.8 fl (35.1-43.9); Red Blood Count 3.63 M/mm3 (4.2-5.4); White Blood Count 13.5 K/mm3 (4.4-11.0)
[2023-08-29] MEDS: Acetaminophen 500 MG Tablet 1000 MG PO ×3 (05:50→20:44)
[2023-08-29] MEDS: Heparin Injection (Vial) 5,000 UNIT/ML VIAL 5000 UNIT SC ×3 (05:50→20:44)
[2023-08-29 06:13] LABS: Bedside Glucose 82 mg/dL (74-106)
[2023-08-29 06:25] LABS: Anion Gap 7 (5-15); BUN 29 mg/dL (7-18); BUN/Creat Ratio 37.9 RATIO (10-20); Calcium,Total 8.8 mg/dL (8.5-10.1); Chloride 105 mmol/L (98-107); Creatinine, Serum 0.76 mg/dL (0.55-1.02); EST Glomerular Filtration Rate 79 mL/min (>60); Est Glom Filt Rate - Afr Amer 96 mL/min (>60); Estimated Creatinine Clearance 69.78 ml/min; Glucose 70 mg/dL (74-106); Potassium 3.8 mmol/L (3.5-5.1); Sodium Level 138 mmol/L (136-145)
[2023-08-29] MEDS: Ipratropium 0.5 MG/2.5 ML SOLUTION INHALATION ×3 (07:08→20:05)
--- NOTE | 2023-08-29 07:59 | PCM.PN.HOSP ---
Reason for Visit Reason for Visit: Diagnoses Chronic obstructive pulmonary disease with (acute) exacerbation (08/26/23) Hypoxemia (08/26/23) Fall from bed, initial encounter (08/26/23) Objective Data Objective Data Vital Signs: Vital Signs Temp Pulse Resp BP Pulse Ox O2 Del Method O2 Flow Rate 97 F L 82 16 124/63 H 98 Nasal Cannula 3.5 08/29/23 03:15 08/29/23 07:08 08/29/23 07:08 08/29/23 03:15 08/29/23 07:08 08/29/23 07:08 08/29/23 07:08 Oxygen Flow Rate (L/min) 3.5 Oxygen Delivery Method Nasal Cannula Weight: 232 lb 12.8 oz Body Mass Index (BMI) 47.0 Intake & Output: Intake and Output for Last 24 Hours 08/27/23 08/28/23 08/29/23 23:59 23:59 23:59 Intake Total 4968.33 / 4968.33 2678.34 / 2878.34 1163.33 / 1163.33 Output Total 1175 / 1175 Balance 3793.33 / 3793.33 2678.34 / 2878.34 1163.33 / 1163.33 Lab / Micro Data 08/29/23 04:45 08/29/23 04:45 Labs: Laboratory Results - last 24 hr 08/28/23 09:04: Phosphorus 2.6, Magnesium 2.5 08/28/23 11:18: POC Glucose 138 H 08/28/23 17:20: POC Glucose 96 08/28/23 20:20: POC Glucose 88 08/29/23 04:45: WBC 13.5 H, RBC 3.63 L, Hgb 11.4 L, Hct 35.8 L, MCV 98.6, MCH 31.4, MCHC 31.8 L, RDW Std Deviation 51.8 H, RDW Coeff of Penny 14.0, Plt Count 148 L, MPV 13.0 H, Immature Gran % (Auto) 0.500, Neut % (Auto) 84.6 H, Lymph % (Auto) 8.5 L, [place] % (Auto) 5.5, Eos % (Auto) 0.5, Baso % (Auto) 0.4, Absolute Neuts (auto) 11.4 H, Absolute Lymphs (auto) 1.15, Nucleated RBC % 0, Sodium 138, Potassium 3.8, Chloride 105, Carbon Dioxide 26.0, Anion Gap 7, BUN 29 H, Creatinine 0.76, Estim Creat Clear Calc 69.78, Est GFR (MDRD) Af Amer 96, Est GFR (MDRD) Non-Af 79, BUN/Creatinine Ratio 37.9 H, Glucose 70 L, Calcium 8.8 08/29/23 05:49: POC Glucose 82 Micro: Microbiology 08/26/23 14:05 Blood Culture (Wb) - Right Hand Blood Culture - Preliminary No growth in 48 hours. 08/26/23 14:25 Blood Culture (Wb) - Right Wrist Blood Culture - Preliminary No growth in 48 hours. 08/26/23 10:10 Mucosa - Nasopharyngeal SARS-CoV-2, Influenza & RSV (PCR) - Final 08/25/23 08:17 Mucosa - Nasopharyngeal Respiratory Panel (PCR) - Final 08/25/23 05:36 Mucosa - Nose SARS-CoV-2, Influenza & RSV (PCR) - Final Rhythm Strip Rhythm Strip: Sinus Tach Rate: 100 Ectopy: None Physical Exam Narrative Seen and examined. The patient complain of leg cramps, starts from right foot and then goes to calf. All toes are very tender and swollen. She also has neuropathy pain but is mainly hurting her right toes, foot and leg. She has a history of restless leg disease and is on Restoril 0.5 to 1 mg daily and as needed. Tachycardia has resolved. Patient has history of paroxysmal A-fib. Physical exam General: Alert, Oriented x3, Cooperative. Morbid obesity BMI 47.0 kg/m?. HEENT: Atraumatic, PERRLA, EOMI, Normocephalic Oral: No Gingival or Mucosal Lesions/ Ulcerations. Deep pharyngeal structures could not be visualized Neck: Supple, No JVD, Negative Carotid Bruits Chest wall/Lungs: Air entry diminished in bilateral lung bases. No crepitation/rhonchi Cardiovascular: Irregular rate and rhythm, multiple PVCs normal S1, Normal S2. No murmur. Abdomen: Bowel Sounds Present, Soft, Non Tender, Non-Distended : No dysuria. No renal angle tenderness. No suprapubic tenderness. Extremities: Mild bilateral pitting edema, Capillary Refill Less than 3 Seconds Skin: No rashes, No breakdown Musculoskeletal: Toes of right foot, forefoot are swollen and tender. Muscle tenderness present on right calf. Muscle strength 4/5 at knees and hip joints. Bilateral TKR. Right knee multiple surgical scar. ROM limited. Neurological: Cranial nerves II-XII grossly intact, DTR 2+/4. No acute focal neurological deficit. Psych/Mental Status: Flat affect. Assessment & Plan Assessment/Plan (1) Accidental fall from bed: (2) Acute exacerbation of chronic obstructive pulmonary disease (COPD): PLAN: Plan 73-year-old female with past medical history of type 2 diabetes, morbid obesity, COPD on home oxygen was admitted for evaluation of acute on chronic respiratory failure with worsening shortness of breath and hide features consistent with COPD exacerbation. There was a deviation of her presentation this morning, with an episode of confusion, fever and she has been transferred to the PCU. With IV antibiotics her clinical symptoms have improved, and she is working now with physical therapy. continue antibiotics for now. #Community-acquired pneumonia. -IV ceftriaxone and azithromycin. Respiratory panel and triple PCR test for flu, RSV and COVID-19 are negative. No acute fever. Patient has leukocytosis with immature granulocyte 1.5%. Mainly polymorphs. Patient has positive SIRS criteria including tachycardia, tachypnea but has history of paroxysmal A-fib and is on metoprolol succinate 50 mg daily which was held. BP dropped to 91/53, 1 time on 08/26 noontime. Low-grade fever temperature 100.5 ?F. Patient does not look toxic and does not meet criteria for organ dysfunction. The patient has lactic acidosis but that might be confounding factors for example metformin 1 g and multiple other comorbidities. 08/28: Cough shortness of breath and congestion much better. Leukocytosis improving but gradual. Patient had 4 days of azithromycin therefore discontinued. Continue IV ceftriaxone. Severe pain over right leg possible inflammatory arthropathy/neuropathy: On exam there is tenderness and swelling of right foot and toes and very sensitive. Mild leukocytosis probably due to inflammatory arthropathy. Pain is from right foot goes all the way to the right calf. Venous duplex has already been ordered. Patient on meloxicam but has not gotten better. She states oxycodone gives relief for 6 hours. Patient on gabapentin 400 mg a.m. and 800 mg p.m. but not effective therefore discontinued. Started on Lyrica 75 mg 3 times daily. ESR, CRP and uric acid ordered. Colchicine 1.2 mg 1 dose to see medication response. # COPD with acute exacerbation -On albuterol every 2 hours as needed -Switch to azithromycin IV -Hold steroids for now -Target saturation 88 to 92% # Adult failure to thrive with falls ? Patient did complain of right flank pain imaging studies however negative for any rib fractures. Patient admitted to regular nursing floor requested for PT OT eval and social worker masters to assist with discharge planning # Elevated troponin ? Secondary to suspected myocardial injury from above -Echocardiogram reported EF 65% with normal systolic function. #. Diabetes mellitus type II -patient's oral hypoglycemics held. Placed on long acting insulin, Accu-Cheks a.c. and at bedtime and covered with sliding scale insulin # Class III obesity with BMI of 48 ? Complicating care weight loss advised # Intertrigo ? Requested for nystatin powder to be applied to skin folds # Paroxysmal A-fib ? Patient was in sinus rhythm on admission # Obstructive sleep apnea ? Consistent use of PAP therapy encourage # Depression with anxiety ? Patient is on escitalopram as well as bupropion continue # Restless leg syndrome ? Patient is on ropinirole continue # Acute kidney injury ? Baseline creatinine from 01/30/2023 was 0.68 creatinine on admission was 1.42 started on IV fluids with avoidance of potential nephrotoxic medications 08/27: Creatinine fluctuates, decreased to 1.15 and then 1.38. Patient on bumetanide 1 mg daily at home currently on hold 08/28: BUNs/creatinine 29/0.76. CHONG resolved. # DVT prophylaxis -Heparin SC Total time of the visit including total time spent in counseling or coordination of care, (more than 50% of the total time, spent in obtaining medical information from nurses and other ancillary care providers,explaining to the patient about labs, imaging, diagnosis and management of active complex medical conditions), multiple EKGs, discussion with nursing staff, review of labs and imaging is 40 minutes. Microbiology Past 72 Hours 08/26/23 14:05 Blood Culture (Wb) - Right Hand Blood Culture - Preliminary No growth in 48 hours. 08/26/23 14:25 Blood Culture (Wb) - Right Wrist Blood Culture - Preliminary No growth in 48 hours. 08/26/23 10:10 Mucosa - Nasopharyngeal SARS-CoV-2, Influenza & RSV (PCR) - Final Laboratory Results 08/28/23 17:20: POC Glucose 96 08/28/23 20:20: POC Glucose 88 08/29/23 04:45: WBC 13.5 H, RBC 3.63 L, Hgb 11.4 L, Hct 35.8 L, MCV 98.6, MCH 31.4, MCHC 31.8 L, RDW Std Deviation 51.8 H, RDW Coeff of Penny 14.0, Plt Count 148 L, MPV 13.0 H, Immature Gran % (Auto) 0.500, Neut % (Auto) 84.6 H, Lymph % (Auto) 8.5 L, [place] % (Auto) 5.5, Eos % (Auto) 0.5, Baso % (Auto) 0.4, Absolute Neuts (auto) 11.4 H, Absolute Lymphs (auto) 1.15, Nucleated RBC % 0, Sodium 138, Potassium 3.8, Chloride 105, Carbon Dioxide 26.0, Anion Gap 7, BUN 29 H, Creatinine 0.76, Estim Creat Clear Calc 69.78, Est GFR (MDRD) Af Amer 96, Est GFR (MDRD) Non-Af 79, BUN/Creatinine Ratio 37.9 H, Glucose 70 L, Calcium 8.8 08/29/23 05:49: POC Glucose 82 08/29/23 11:25: POC Glucose 122 H Clinical Impression(s) from Imaging Studies Ribs w/Chest X-Ray 08/25/23 05:12 IMPRESSION: No evidence of displaced rib fracture. Electronically Signed: Maximo Khoury MD at 7:10 EDT , Pelvis X-Ray 08/25/23 05:22 IMPRESSION: No evidence of displaced pelvic fracture. Electronically Signed: Jesse Lopez MD at 7:09 EDT , Brain CT 08/26/23 10:18 IMPRESSION: Age consistent senescent changes, no acute hemorrhage or midline shift, mass effect or enhancing lesion Electronically Signed: Aftab Marquez MD at 11:13 EDT , Echocardiogram 08/26/23 16:26 Interpretation Summary Normal LV size. Left ventricular systolic function is normal. The left ventricular ejection fraction is 60 %. There is moderate mitral annular calcification. Ordering Physician: Daryl Verduzco Referring Physician: JESSE HEREDIA Performed By: Laura Moeller and Student Charges/Coding Visit Charges Inpatient E&M: 55484 Subs Hosp L2
[2023-08-29] MEDS: Ceftriaxone 2 GM in 0.9% Normal Saline (50mL MB+) 50 ML IV (09:12)
[2023-08-29] MEDS: Metoprolol(XL)Succ 50 MG Tablet PO (09:17)
[2023-08-29] MEDS: Calcium Carb/Vitamin D 1 TABLET Tablet PO ×2 (09:18→16:08)
[2023-08-29] MEDS: Empagliflozin 25 MG Tablet PO (09:18)
[2023-08-29] MEDS: Escitalopram Oxalate 20 MG Tablet PO (09:18)
[2023-08-29] MEDS: buPROPion (XL) 150 MG TABLET.XL PO (09:18)
[2023-08-29] MEDS: Meloxicam 7.5 MG Tablet PO (09:18)
[2023-08-29] MEDS: Aspirin E.C. 81 MG Tablet PO (09:18)
[2023-08-29] MEDS: Nystatin Powder 15gm Bottle 1 APPLIC TOPICAL ×2 (09:19→20:44)
[2023-08-29] MEDS: Menthol/Lanolin/Calamine/Znox 113 GM Tube 1 APPLIC TOPICAL ×2 (09:19→20:45)
[2023-08-29] MEDS: Gabapentin 400 MG Capsule PO (09:22)
[2023-08-29] MEDS: Azithromycin 500 MG in Dextrose 5%-Water (250mL Bag) 250 ML 250 MG IV (10:04)
[2023-08-29] MEDS: Pregabalin 75 MG Capsule PO ×3 (11:28→20:47)
[2023-08-29 11:43] LABS: Bedside Glucose 122 mg/dL (74-106)
--- NOTE | 2023-08-29 12:36 | VDLE_ITS ---
Reason For Study: Bilateral leg pain RIGHT LEFT GSV is normal. GSV is normal. CFV is compressible, spontaneous, phasic, CFV is compressible, spontaneous, phasic, competent and demonstrates normal competent, and demonstrates normal augmentation. augmentation. FV is compressible, spontaneous, phasic, FV is compressible, spontaneous, phasic, competent and demonstrates normal competent and demonstrates normal augmentation. augmentation. POP V is compressible, spontaneous, phasic, POP V is compressible, spontaneous, phasic, competent and demonstrates normal competent and demonstrates normal augmentation. augmentation. T/P Trunk is compressible. T/P Trunk is compressible. PTV is compressible. PTV is compressible. RT PerV is compressible. LT PerV is compressible. Procedure This is a venous duplex using B-mode, color flow and spectral Doppler. Exam performed portable in patient room. The study was technically difficult. A preliminary report was called and/or faxed to [facility]. VL/Venous Duplex US - Placido Extrem Interpretation Summary Deep veins of the bilateral lower extremities are patent and compressible segme ntally. There is no evidence of bilateral lower extremity deep vein thrombosis. The bilateral great saphenous veins appear patent and compressible segmentally. Ordering Physician: Jaya Rachel Referring Physician: Jesse Curran Performed By: Sarai Ashby RVT
--- NOTE | 2023-08-29 12:38 | RAD_ITS ---
INDICATION: RIGHT FOOT AND TOES PAIN EXAMINATION/TECHNIQUE: X-RAY - RIGHT XR Foot Min 3 Views 3 VIEWS COMPARISON: No relevant prior comparison study available FINDINGS: SOFT TISSUES: No soft tissue swelling or gas. No radiopaque foreign body. BONES/JOINTS: No acute fracture or subluxation.. Normal alignment. Preservation of the joint space.. No sclerotic or destructive changes observed. Heel spurs are noted. RAD/Foot min 3 Views IMPRESSION: No fracture or malalignment. Electronically Signed: Christian Huggins MD at 5:21 EDT ,
[2023-08-29 13:14] LABS: Erythrocyte Sedimentation Rate 77 mm/hr (0-30)
[2023-08-29] MEDS: Colchicine 0.6 MG TABLET 1.2 MG PO (13:21)
[2023-08-29 13:32] LABS: Uric Acid 5.7 mg/dL (2.6-6.0)
[2023-08-29] MEDS: oxyCODONE 5 MG Tablet PO (14:25)
[2023-08-29 16:28] LABS: Bedside Glucose 78 mg/dL (74-106)
--- NOTE | 2023-08-29 18:20 | RAD_ITS ---
EXAM: XR RIGHT TIBIA AND FIBULA, 1 VIEW CLINICAL INDICATION: RIGHT LEG PAIN TECHNIQUE: Frontal or lateral views of the right tibia and fibula. COMPARISON: No relevant prior studies available. FINDINGS: BONES/JOINTS: Total knee arthroplasty. Achilles enthesophyte. No acute fracture. No dislocation. SOFT TISSUES: Soft tissue calcifications. No radiopaque foreign body. RAD/Tibia & Fibula 2 Views IMPRESSION: No acute findings in the right tibia and fibula or surrounding soft tissues. Electronically Signed: Pritesh Benson MD at 21:44 EDT ,
--- NOTE | 2023-08-29 20:07 | CPS ---
pt very lethargic. RN notified
[2023-08-29] MEDS: Pravastatin 40 MG Tablet PO (20:44)
[2023-08-29] MEDS: Pramipexole Di-HCl 0.5 MG Tablet PO (20:48)
[2023-08-29] MEDS: 0.9% Saline Lock 10 ML Syringe IV (20:59)
[2023-08-29] MEDS: Dextrose 10%-Water 250 ML 999 ML IV (21:31)
--- NOTE | 2023-08-29 21:35 | NURSING ---
Patient refusing to eat for RN, states she will eat later is not hungry. Blood sugar 60 so follow hypoglycemia protocol
[2023-08-29 22:17] LABS: Bedside Glucose 60 mg/dL (74-106)
[2023-08-29 22:17] LABS: Bedside Glucose 67 mg/dL (74-106)
[2023-08-29 22:17] LABS: Bedside Glucose 75 mg/dL (74-106)
[2023-08-29 23:19] LABS: Bedside Glucose 101 mg/dL (74-106)
[2023-08-30] VITALS (7 sets, daily range): BP systolic 115–149; BP diastolic 55–95; PULSE 83–92; RESP 17–18; TEMP 36.1–36.7; O2SAT 94–99
[2023-08-30] MEDS: Pramipexole Di-HCl 0.25 MG Tablet PO ×2 (01:11→14:02)
[2023-08-30] MEDS: oxyCODONE 5 MG Tablet PO ×2 (01:11→18:54)
--- NOTE | 2023-08-30 01:26 | NURSING ---
Patient blood sugar 64 getting second part of d10w bag that was hung earlier
[2023-08-30 01:44] LABS: Bedside Glucose 69 mg/dL (74-106)
[2023-08-30] MEDS: Heparin Injection (Vial) 5,000 UNIT/ML VIAL 5000 UNIT SC ×3 (05:36→20:58)
[2023-08-30] MEDS: Acetaminophen 500 MG Tablet 1000 MG PO ×3 (05:36→20:57)
[2023-08-30] MEDS: Pregabalin 75 MG Capsule PO ×3 (05:36→20:57)
[2023-08-30 06:19] LABS: Absolute Lymphocyte Count 1.34 X10^3/uL (0.83-4.51); Absolute Neutrophil Count 11.5 X10^3/uL (2.0-7.7); Basophil# 0.06 X10^3/uL; Basophil% 0.4 % (0-1); Eosinophil# 0.08 X10^3/uL; Eosinophils% 0.6 % (0-5); Hematocrit 37.9 % (37-47); Lymphocyte # 1.34 X10^3/ul (0.83-4.51); Lymphocyte % 9.7 % (19-41); Mean Corp Hgb Conc 31.7 g/dL (32-36); Mean Corpuscular Hgb 31.3 pg (27.0-32.0); Mean Platelet Vol. 12.5 fl (6.2-12.0); Monocyte# 0.71 X10^3/uL; Monocyte% 5.1 % (0-10); NRBC Flagged by Analyzer 0 % (0-5); Neutrophil # 11.46 X10^3/uL (2.7-7.7); Neutrophil % 82.8 % (47-70); Platelet Count 173 K/mm3 (150-450); RBC Distribution Width CV 14.2 % (11.6-14.6); RBC Distribution Width SD 52.1 fl (35.1-43.9); Red Blood Count 3.83 M/mm3 (4.2-5.4); White Blood Count 13.9 K/mm3 (4.4-11.0)
[2023-08-30 06:20] LABS: Bedside Glucose 90 mg/dL (74-106)
[2023-08-30 06:20] LABS: Bedside Glucose 79 mg/dL (74-106)
[2023-08-30 06:37] LABS: Anion Gap 7 (5-15); BUN 25 mg/dL (7-18); BUN/Creat Ratio 39.5 RATIO (10-20); Chloride 107 mmol/L (98-107); Creatinine, Serum 0.63 mg/dL (0.55-1.02); EST Glomerular Filtration Rate 98 mL/min (>60); Est Glom Filt Rate - Afr Amer 119 mL/min (>60); Estimated Creatinine Clearance 69.78 ml/min; Glucose 77 mg/dL (74-106); Potassium 3.8 mmol/L (3.5-5.1); Sodium Level 138 mmol/L (136-145)
[2023-08-30] MEDS: Ceftriaxone 2 GM in 0.9% Normal Saline (50mL MB+) 50 ML IV (09:16)
[2023-08-30] MEDS: Empagliflozin 25 MG Tablet PO (09:21)
[2023-08-30] MEDS: Escitalopram Oxalate 20 MG Tablet PO (09:21)
[2023-08-30] MEDS: Nystatin Powder 15gm Bottle 1 APPLIC TOPICAL ×2 (09:22→21:07)
[2023-08-30] MEDS: Aspirin E.C. 81 MG Tablet PO (09:22)
[2023-08-30] MEDS: Calcium Carb/Vitamin D 1 TABLET Tablet PO ×2 (09:22→16:38)
[2023-08-30] MEDS: Menthol/Lanolin/Calamine/Znox 113 GM Tube 1 APPLIC TOPICAL ×2 (09:22→21:07)
[2023-08-30] MEDS: buPROPion (XL) 150 MG TABLET.XL PO (09:23)
[2023-08-30] MEDS: Metoprolol(XL)Succ 50 MG Tablet PO (09:23)
--- NOTE | 2023-08-30 09:25 | PN.HOSP_ITS ---
Reason for Visit Reason for Visit: Diagnoses Chronic obstructive pulmonary disease with (acute) exacerbation (08/26/23) Hypoxemia (08/26/23) Fall from bed, initial encounter (08/26/23) Subjective Subjective Complaining of pain in her legs. Objective Data Objective Data Vital Signs: Vital Signs Temp Pulse Resp BP Pulse Ox O2 Del Method O2 Flow Rate 36.3 C L 92 18 149/55 H 98 Nasal Cannula 1.5 08/30/23 09:00 08/30/23 09:00 08/30/23 09:00 08/30/23 09:00 08/30/23 09:00 08/30/23 09:00 08/30/23 09:00 Oxygen Flow Rate (L/min) 1.5 Oxygen Delivery Method Nasal Cannula Weight: 105.596 kg Body Mass Index (BMI) 47.0 Intake & Output: Intake and Output for Last 24 Hours 08/28/23 08/29/23 08/30/23 23:59 23:59 23:59 Intake Total 2678.34 / 2878.34 2684.78 / 2684.78 350 / 350 Balance 2678.34 / 2878.34 2684.78 / 2684.78 350 / 350 Lab / Micro Data 08/30/23 05:48 08/30/23 05:48 Labs: Laboratory Results - last 24 hr 08/29/23 04:45: ESR 77 H, Uric Acid 5.7, C-React Prot Ext Range 311.00 H 08/29/23 11:25: POC Glucose 122 H 08/29/23 16:06: POC Glucose 78 08/29/23 20:39: POC Glucose 67 L 08/29/23 21:28: POC Glucose 60 L 08/29/23 21:59: POC Glucose 75 08/29/23 23:01: POC Glucose 101 08/30/23 01:21: POC Glucose 69 L 08/30/23 01:48: POC Glucose 90 08/30/23 05:38: POC Glucose 79 08/30/23 05:48: WBC 13.9 H, RBC 3.83 L, Hgb 12.0, Hct 37.9, MCV 99.0, MCH 31.3, MCHC 31.7 L, RDW Std Deviation 52.1 H, RDW Coeff of Penny 14.2, Plt Count 173, MPV 12.5 H, Immature Gran % (Auto) 1.400 H, Neut % (Auto) 82.8 H, Lymph % (Auto) 9.7 L, Sanders % (Auto) 5.1, Eos % (Auto) 0.6, Baso % (Auto) 0.4, Absolute Neuts (auto) 11.5 H, Absolute Lymphs (auto) 1.34, Nucleated RBC % 0, Sodium 138, Potassium 3.8, Chloride 107, Carbon Dioxide 24.0, Anion Gap 7, BUN 25 H, Creatinine 0.63, Estim Creat Clear Calc 69.78, Est GFR (MDRD) Af Amer 119, Est GFR (MDRD) Non-Af 98, BUN/Creatinine Ratio 39.5 H, Glucose 77, Calcium 9.0 Micro: Microbiology 08/26/23 14:05 Blood Culture (Wb) - Right Hand Blood Culture - Preliminary No growth in 48 hours. 08/26/23 14:25 Blood Culture (Wb) - Right Wrist Blood Culture - Preliminary No growth in 48 hours. 08/26/23 10:10 Mucosa - Nasopharyngeal SARS-CoV-2, Influenza & RSV (PCR) - Final 08/25/23 08:17 Mucosa - Nasopharyngeal Respiratory Panel (PCR) - Final 08/25/23 05:36 Mucosa - Nose SARS-CoV-2, Influenza & RSV (PCR) - Final Radiography Diagnostic Testing: Radiology Impression Foot X-Ray 08/29/23 12:38 IMPRESSION: No fracture or malalignment. Electronically Signed: Christian Huggins MD at 5:21 EDT , Tibia/Fibula X-Ray 08/29/23 18:20 IMPRESSION: No acute findings in the right tibia and fibula or surrounding soft tissues. Electronically Signed: Pritesh Benson MD at 21:44 EDT , Rhythm Strip Rhythm Strip: Sinus Tach Rate: 100 Ectopy: None Physical Exam Const Constitutional Narrative: oriented to self. Orientation / Consciousness: confused HEENT head/scalp atraumatic and moist oral mucous membranes Resp normal respiratory effort and no retractions Cardio regular rate, regular rhythm, S1 normal heart sound and S2 normal heart sound GI normal to inspection, nondistended, normoactive bowel sounds, soft to palpation, non-tender and non-distended Extremity normal to inspection and no clubbing, cyanosis or edema Neuro Sensorium / Orientation: awake Assessment & Plan Assessment/Plan (1) Accidental fall from bed: (2) Acute exacerbation of chronic obstructive pulmonary disease (COPD): PLAN: Plan Community-acquired pneumonia. * RULED OUT * infectious work up negative * DC abx and observe. COPD w/o exacarbation * stable * BDs Adult failure to thrive with falls * PT OT Elevated troponin * I see no troponins in recent labs, though they had been high in 02/13. * ?Echo 08/26 shows an EF of 60% Elevated ESR and CRP * have been both elevated in the past, though higher now. * infectious work up, tib-fib xrays, foot xray negative. * in 2020, had RF, CCP, NATALIE that were negative. * recommend outpt follow up with rheumatology. DM2 * stable * glargine, empagliflozin Acute kidney injury * improved with IVF. Chronic conditions: * Class III obesity with BMI of 48? Complicating care weight loss advised * Intertrigo? Requested for nystatin powder to be applied to skin folds * Paroxysmal A-fib? Patient was in sinus rhythm on admission * Obstructive sleep apnea? Consistent use of PAP therapy encourage * Depression with anxiety? Patient is on escitalopram as well as bupropion continue * Restless leg syndrome? Patient is on ropinirole continue VTE prophylaxis: -Heparin SC Charges/Coding Visit Charges Inpatient E&M: 84750 Subs Hosp L2
--- NOTE | 2023-08-30 09:54 | CASEMGMT ---
Patient is not doing well with therapy. SW met with patient. Patient was sleeping, but did wake somewhat to talk to SW. SW explained recommendations. Patient was agreeable to a list of SNF's. Arin RANDALL
--- NOTE | 2023-08-30 10:05 | CASEMGMT ---
Discharge Planning A list of?SNF providers including quality and resource use data and consistent with the patient's preferred geographic region, medical needs, and insurance network was created in [facility].? This list was provided to the SW. Kira Krause Discharge Planning Asst.
--- NOTE | 2023-08-30 11:23 | CASEMGMT ---
SW went back to patient's room with SNF list. Patient was sitting up in her chair, still sleepy. SW re-introduced self and role at [facility]. SW explained therapy's [facility]hab. Patient did not say anything. SW asked patient if patient would like SW to call family to discuss which facility. Patient said yes. SW called patient's niece, Amie. SW explained that patient is not doing well with therapy and will need to go somewhere short term for rehab. JESSICA explained patient has not been agreeable earlier in her stay, however she is currently in agreement. Amie said she will be in to [facility] and will look over the list and talk with patient. Amie is thinking [facility] or [place], but she will talk with patient. Arin Burton MSW [place]
[2023-08-30 12:01] LABS: Bedside Glucose 93 mg/dL (74-106)
[2023-08-30 16:57] LABS: Bedside Glucose 77 mg/dL (74-106)
[2023-08-30] MEDS: Ipratropium 0.5 MG/2.5 ML SOLUTION INHALATION (19:04)
[2023-08-30] MEDS: Pramipexole Di-HCl 0.5 MG Tablet PO (20:57)
[2023-08-30] MEDS: Pravastatin 40 MG Tablet PO (20:58)
[2023-08-30] MEDS: Senna/Docusate Sodium 1 Tablet 2 TABLET PO (20:58)
[2023-08-30] MEDS: MELATONIN 10 MG TABLET PO (21:00)
[2023-08-30 21:30] LABS: Bedside Glucose 77 mg/dL (74-106)
[2023-08-31] VITALS (8 sets, daily range): BP systolic 146–159; BP diastolic 84–96; PULSE 85–92; RESP 18; TEMP 36.5–36.9; O2SAT 95–98
[2023-08-31] MEDS: Heparin Injection (Vial) 5,000 UNIT/ML VIAL 5000 UNIT SC ×3 (06:00→21:57)
[2023-08-31] MEDS: Pregabalin 75 MG Capsule PO (06:00)
[2023-08-31] MEDS: Acetaminophen 500 MG Tablet 1000 MG PO ×3 (06:00→21:56)
[2023-08-31 06:53] LABS: Bedside Glucose 79 mg/dL (74-106)
[2023-08-31 06:53] LABS: Bedside Glucose 67 mg/dL (74-106)
[2023-08-31] MEDS: Ipratropium 0.5 MG/2.5 ML SOLUTION INHALATION ×3 (07:20→23:01)
--- NOTE | 2023-08-31 07:49 | PN.HOSP_ITS ---
Reason for Visit Reason for Visit: Diagnoses Chronic obstructive pulmonary disease with (acute) exacerbation (08/26/23) Hypoxemia (08/26/23) Fall from bed, initial encounter (08/26/23) Objective Data Objective Data Vital Signs: Vital Signs Temp Pulse Resp BP Pulse Ox O2 Del Method O2 Flow Rate 36.5 C L 91 18 159/86 H 96 Room Air 1.5 08/31/23 02:45 08/31/23 02:45 08/31/23 02:45 08/31/23 02:45 08/31/23 02:45 08/31/23 04:00 08/30/23 10:52 Oxygen Flow Rate (L/min) 1.5 Oxygen Delivery Method Room Air Weight: 105.596 kg Body Mass Index (BMI) 47.0 Intake & Output: Intake and Output for Last 24 Hours 08/29/23 08/30/23 08/31/23 23:59 23:59 23:59 Intake Total 2684.78 / 2684.78 880 / 880 Output Total 300 / 400 250 / 250 Balance 2684.78 / 2684.78 580 / 480 -250 / -250 Lab / Micro Data 08/30/23 05:48 08/30/23 05:48 Labs: Laboratory Results - last 24 hr 08/30/23 11:42: POC Glucose 93 08/30/23 16:36: POC Glucose 77 08/30/23 21:02: POC Glucose 77 08/31/23 06:02: POC Glucose 67 L 08/31/23 06:36: POC Glucose 79 Micro: Microbiology 08/26/23 14:05 Blood Culture (Wb) - Right Hand Blood Culture - Preliminary No growth in 48 hours. 08/26/23 14:25 Blood Culture (Wb) - Right Wrist Blood Culture - Preliminary No growth in 48 hours. 08/26/23 10:10 Mucosa - Nasopharyngeal SARS-CoV-2, Influenza & RSV (PCR) - Final 08/25/23 08:17 Mucosa - Nasopharyngeal Respiratory Panel (PCR) - Final 08/25/23 05:36 Mucosa - Nose SARS-CoV-2, Influenza & RSV (PCR) - Final Rhythm Strip Rhythm Strip: Sinus Tach Rate: 100 Ectopy: None Assessment & Plan Assessment/Plan (1) Accidental fall from bed: (2) Acute exacerbation of chronic obstructive pulmonary disease (COPD): PLAN: Plan Community-acquired pneumonia. * RULED OUT * infectious work up negative * DC abx and observe. COPD w/o exacarbation * stable * BDs Adult failure to thrive with falls * PT OT Elevated troponin * I see no troponins in recent labs, though they had been high in 02/13. * ?Echo 08/26 shows an EF of 60% Elevated ESR and CRP * have been both elevated in the past, though higher now. * infectious work up, tib-fib xrays, foot xray negative. * in 2019, had RF, CCP, NATALIE that were negative. * recommend outpt follow up with rheumatology. DM2 * stable * glargine, empagliflozin Acute kidney injury * improved with IVF. Chronic conditions: * Class III obesity with BMI of 48? Complicating care weight loss advised * Intertrigo? Requested for nystatin powder to be applied to skin folds * Paroxysmal A-fib? Patient was in sinus rhythm on admission * Obstructive sleep apnea? Consistent use of PAP therapy encourage * Depression with anxiety? Patient is on escitalopram as well as bupropion continue * Restless leg syndrome? Patient is on ropinirole continue VTE prophylaxis: -Heparin SC
--- NOTE | 2023-08-31 07:49 | PCM.PN.HOSP ---
Reason for Visit Reason for Visit: Diagnoses Chronic obstructive pulmonary disease with (acute) exacerbation (08/26/23) Hypoxemia (08/26/23) Fall from bed, initial encounter (08/26/23) Subjective Subjective Feels well. Complains of pain in right big toe. Objective Data Objective Data Vital Signs: Vital Signs Temp Pulse Resp BP Pulse Ox O2 Del Method O2 Flow Rate 36.5 C L 91 18 159/86 H 96 Room Air 1.5 08/31/23 02:45 08/31/23 02:45 08/31/23 02:45 08/31/23 02:45 08/31/23 02:45 08/31/23 04:00 08/30/23 10:52 Oxygen Flow Rate (L/min) 1.5 Oxygen Delivery Method Room Air Weight: 105.596 kg Body Mass Index (BMI) 47.0 Intake & Output: Intake and Output for Last 24 Hours 08/29/23 08/30/23 08/31/23 23:59 23:59 23:59 Intake Total 2684.78 / 2684.78 880 / 880 Output Total 300 / 400 250 / 250 Balance 2684.78 / 2684.78 580 / 480 -250 / -250 Lab / Micro Data 08/30/23 05:48 08/30/23 05:48 Labs: Laboratory Results - last 24 hr 08/30/23 11:42: POC Glucose 93 08/30/23 16:36: POC Glucose 77 08/30/23 21:02: POC Glucose 77 08/31/23 06:02: POC Glucose 67 L 08/31/23 06:36: POC Glucose 79 Micro: Microbiology 08/26/23 14:05 Blood Culture (Wb) - Right Hand Blood Culture - Preliminary No growth in 48 hours. 08/26/23 14:25 Blood Culture (Wb) - Right Wrist Blood Culture - Preliminary No growth in 48 hours. 08/26/23 10:10 Mucosa - Nasopharyngeal SARS-CoV-2, Influenza & RSV (PCR) - Final 08/25/23 08:17 Mucosa - Nasopharyngeal Respiratory Panel (PCR) - Final 08/25/23 05:36 Mucosa - Nose SARS-CoV-2, Influenza & RSV (PCR) - Final Rhythm Strip Rhythm Strip: Sinus Tach Rate: 100 Ectopy: None Physical Exam Const alert and no apparent distress HEENT head/scalp atraumatic and moist oral mucous membranes Resp normal respiratory effort, no retractions, no use of accessory muscles and clear to auscultation bilaterally Cardio regular rate, regular rhythm, S1 normal heart sound and S2 normal heart sound GI normal to inspection, nondistended, normoactive bowel sounds, soft to palpation, non-tender and non-distended Extremity normal to inspection Extremity Narrative: no TTP of right great toe. Neuro Sensorium / Orientation: awake and alert Assessment & Plan Assessment/Plan (1) Accidental fall from bed: (2) Acute exacerbation of chronic obstructive pulmonary disease (COPD): PLAN: Plan Community-acquired pneumonia. RULED OUT infectious work up negative DC abx and observe. COPD w/o exacarbation stable BDs Adult failure to thrive with falls PT OT Elevated troponin I see no troponins in recent labs, though they had been high in 02/13. Echo 08/26 shows an EF of 60% Elevated ESR and CRP have been both elevated in the past, though higher now. infectious work up, tib-fib xrays, foot xray negative. in 2019, had RF, CCP, NATALIE that were negative. recommend outpt follow up with rheumatology. DM2 stable glargine, empagliflozin Acute kidney injury improved with IVF. Chronic conditions: Class III obesity with BMI of 48? Complicating care weight loss advised Intertrigo? Requested for nystatin powder to be applied to skin folds Paroxysmal A-fib? Patient was in sinus rhythm on admission Obstructive sleep apnea? Consistent use of PAP therapy encourage Depression with anxiety? Patient is on escitalopram as well as bupropion continue Restless leg syndrome? Patient is on ropinirole continue VTE prophylaxis: -Heparin SC Charges/Coding Visit Charges Inpatient E&M: 56477 Subs Hosp L2
--- NOTE | 2023-08-31 09:15 | CASEMGMT ---
SW met with patient. Introduced self and role at [facility]. SW went over therapy recommendations. Patient and her niece Amie talked and they would like for patient to go to [facility]. SW asked Kira to please make a referral to [facility]. Arin Burton CHIEF BUSINESS OFFICER [place]
--- NOTE | 2023-08-31 09:50 | CASEMGMT ---
Discharge Planning Referral sent to [facility]. Kira Krause DC Planning Asst.
--- NOTE | 2023-08-31 11:00 | CASEMGMT ---
[facility] accepted patient and will start pre-cert. called patient's niece Amie and let her know above. JESSICA did tell Amie that we could have a response today vs tomorrow. Someone will definitely let her know. Plan: d/c to [facility] pending pre-cert. Arin Burton MSW [place]
[2023-08-31] MEDS: buPROPion (XL) 150 MG TABLET.XL PO (11:18)
[2023-08-31] MEDS: Calcium Carb/Vitamin D 1 TABLET Tablet PO ×2 (11:18→17:18)
[2023-08-31] MEDS: Metoprolol(XL)Succ 50 MG Tablet PO (11:18)
[2023-08-31] MEDS: Escitalopram Oxalate 20 MG Tablet PO (11:18)
[2023-08-31] MEDS: Aspirin E.C. 81 MG Tablet PO (11:19)
[2023-08-31] MEDS: Nystatin Powder 15gm Bottle 1 APPLIC TOPICAL ×2 (11:23→21:55)
[2023-08-31] MEDS: Menthol/Lanolin/Calamine/Znox 113 GM Tube 1 APPLIC TOPICAL ×2 (11:23→21:55)
--- NOTE | 2023-08-31 11:57 | TREXTCAR_ITS ---
Diet Diet Order/Speech Therapy: 08/25/23 08:44 Diet: Consistent Carb - Calorie Controlled Food consistency:: Regular Liquid Consistency:: Regular/Thin Type of Dietary Supplement:: Glucerna Shake Diet Comments: 240 ml GS w/ meals tid How many daily calories?: 1600 calorie Routine Orders/Code Status Code Status: Full Code Wound(s) buttocks: Wound Type: Pressure Injury groin fold: Wound Type: Abrasion Therapies Weight Bearing: Full weight bearing Physical Therapy: Eval and Treat Occupational Therapy: Eval and Treat Problem/Diagnosis (1) Accidental fall from bed: Status: Acute Code(s): W06.XXXA - Fall from bed, initial encounter (2) Acute exacerbation of chronic obstructive pulmonary disease (COPD): Status: Chronic Code(s): J44.1 - Chronic obstructive pulmonary disease with (acute) exacerbation Plan Community-acquired pneumonia. * RULED OUT * infectious work up negative * DC abx and observe. COPD w/o exacarbation * stable * BDs Adult failure to thrive with falls * PT OT Elevated troponin * I see no troponins in recent labs, though they had been high in 02/13. * Echo 08/26 shows an EF of 60% Elevated ESR and CRP * have been both elevated in the past, though higher now. * infectious work up, tib-fib xrays, foot xray negative. * in 2019, had RF, CCP, NATALIE that were negative. * recommend outpt follow up with rheumatology. DM2 * stable * glargine, empagliflozin Acute kidney injury * improved with IVF. Chronic conditions: * Class III obesity with BMI of 48? Complicating care weight loss advised * Intertrigo? Requested for nystatin powder to be applied to skin folds * Paroxysmal A-fib? Patient was in sinus rhythm on admission * Obstructive sleep apnea? Consistent use of PAP therapy encourage * Depression with anxiety? Patient is on escitalopram as well as bupropion continue * Restless leg syndrome? Patient is on ropinirole continue VTE prophylaxis: -Heparin SC Allergies/Procedures Done in Hospital Allergies ampicillin Allergy (Verified 08/25/23 05:14) Hives codeine Allergy (Verified 08/25/23 05:14) Hives meperidine HCl (From Demerol) Allergy (Verified 08/25/23 05:14) Hives Penicillins (PCN) Allergy (Verified 08/25/23 05:14) H[facility] (Verified 08/25/23 05:14) Hives Procedures: None Type of Care/Length of Stay Estimated LOS: Convalescent Care Less Than 30 days Type of Care Needed: Skilled Rehab Potential: Fair Prognosis: Fair Additional Orders/Day of Discharge Day of Discharge: 08/31/23 Dietary and Speech Recommendations Dietitian Recommendations/Changes: Continue 1600 addy Consistent CHO Continue 240 ml glucerna shake tid w/ meals for increased nutrition if consumed. Discharge Plan Admission Admit Date/Time: 08/26/23 16:20 Attending Provider: Mejia Grissom Primary Care Provider: Jesse Curran Consulting Providers: Maximilian Kitchen; Daryl Verduzco; Jaya Rachel Discharge Orders/Prescriptions Prescriptions: New acetaminophen 500 mg Tablet 1,000 mg PO Q8 Qty: 0 0RF nystatin [Nyamyc] 100,000 unit/gram Powder 1 applic topical BID Qty: 0 0RF Protocol: *Topical Application Instructions APPLICATION INSTRUCTIONS: groin folds, under breasts Continued albuterol sulfate 90 mcg/actuation HFA aerosol inhaler 2 puff INHALATION Q4H bumetanide 1 mg tablet 1 mg PO DAILY bupropion HCl 150 mg tablet extended release 24 hr 150 mg PO DAILY calcium carbonate-vitamin D3 600 mg-10 mcg (400 unit) tablet 1 tab PO BID Trelegy Ellipta 100-62.5-25 mcg blister with device 1 inh INHALATION DAILY meloxicam 15 mg tablet 15 mg PO DAILY pravastatin 40 mg tablet 40 mg PO QPM escitalopram oxalate 20 mg tablet 20 mg PO DAILY metoprolol succinate 50 mg tablet extended release 24 hr 50 mg PO DAILY aspirin 81 mg tablet,delayed release (DR/EC) 81 mg PO DAILY Qty: 90 3RF Discontinued insulin glargine 100 UNITS/ML insulin pen 100 units SC QHS Patient Comments: PTS FAMILY MEMBER STATES THAT THE PT IS SUPPOSED TO BE USING INSULIN BUT THEY HAVE NOT BEEN DOING THAT. UNSURE OF WHEN THE PT LAST USED THEIR INSULIN. ( OF 01-27-23) oxycodone-acetaminophen 1 TABLET tablet 1 tab PO Q6H gabapentin 400 MG capsule 400 mg PO DAILY ropinirole 0.5 mg tablet 0.5 - 1 mg PO QHS Patient Comments: TAKE TWO TABLETS (1MG) BY MOUTH ONCE EVERY EVENING IF NEEDED. TAKE AN ADDITIONAL 1-2 TABLETS (0.5MG-1MG) AT BEDTIME. metformin 500 mg tablet extended release 24 hr 1,000 mg PO DAILY Jardiance 25 mg tablet 25 mg PO DAILY ropinirole 0.5 mg tablet 1 mg PO QPM PRN (Reason: RESTLESS LEGS) Rx Instructions: TAKE TWO TABLETS (1MG) BY MOUTH ONCE EVERY EVENING IF NEEDED. TAKE AN ADDITIONAL 1-2 TABLETS (0.5MG-1MG) AT BEDTIME. gabapentin 400 mg capsule 800 mg PO QPM Referrals / Follow Up: Jesse Curran DO [Primary Care Provider] - Disposition Disposition (needs filled in before D/C Order can be placed): Longterm Facility
[2023-08-31 12:15] LABS: Bedside Glucose 80 mg/dL (74-106)
[2023-08-31 12:16] LABS: Bedside Glucose 48 mg/dL (74-106)
[2023-08-31 16:08] LABS: Bedside Glucose 107 mg/dL (74-106)
[2023-08-31] MEDS: Pravastatin 40 MG Tablet PO (21:56)
[2023-08-31] MEDS: Senna/Docusate Sodium 1 Tablet 2 TABLET PO (21:56)
[2023-08-31 22:27] LABS: Bedside Glucose 94 mg/dL (74-106)
[2023-09-01] VITALS (9 sets, daily range): BP systolic 140–159; BP diastolic 88–97; PULSE 80–95; RESP 16–18; TEMP 36.1–36.7; O2SAT 92–100
[2023-09-01] MEDS: Acetaminophen 500 MG Tablet 1000 MG PO ×2 (06:38→14:29)
[2023-09-01] MEDS: Heparin Injection (Vial) 5,000 UNIT/ML VIAL 5000 UNIT SC ×2 (06:38→14:28)
[2023-09-01 07:07] LABS: Bedside Glucose 131 mg/dL (74-106)
[2023-09-01] MEDS: Ipratropium 0.5 MG/2.5 ML SOLUTION INHALATION ×2 (07:26→15:03)
[2023-09-01] MEDS: Metoprolol(XL)Succ 50 MG Tablet PO (08:04)
[2023-09-01] MEDS: Escitalopram Oxalate 20 MG Tablet PO (08:04)
[2023-09-01] MEDS: Aspirin E.C. 81 MG Tablet PO (08:04)
[2023-09-01] MEDS: Menthol/Lanolin/Calamine/Znox 113 GM Tube 1 APPLIC TOPICAL (08:05)
[2023-09-01] MEDS: Calcium Carb/Vitamin D 1 TABLET Tablet PO ×2 (08:05→18:40)
[2023-09-01] MEDS: Nystatin Powder 15gm Bottle 1 APPLIC TOPICAL (08:21)
--- NOTE | 2023-09-01 08:42 | PN.HOSP_ITS ---
Reason for Visit Reason for Visit: Diagnoses Chronic obstructive pulmonary disease with (acute) exacerbation (08/26/23) Hypoxemia (08/26/23) Fall from bed, initial encounter (08/26/23) Subjective Subjective Feels well. Objective Data Objective Data Vital Signs: Vital Signs Temp Pulse Resp BP Pulse Ox O2 Del Method O2 Flow Rate 36.1 C L 88 16 144/92 H 92 Room Air 1.5 09/01/23 03:40 09/01/23 08:04 09/01/23 07:26 09/01/23 08:04 09/01/23 07:26 09/01/23 07:26 08/30/23 10:52 Oxygen Flow Rate (L/min) 1.5 Oxygen Delivery Method Room Air Weight: 105.596 kg Body Mass Index (BMI) 47.0 Intake & Output: Intake and Output for Last 24 Hours 08/30/23 08/31/23 09/01/23 23:59 23:59 23:59 Intake Total 880 / 880 1000 / 1300 650 / 650 Output Total 300 / 400 1600 / 2000 1100 / 1100 Balance 580 / 480 -600 / -700 -450 / -450 Lab / Micro Data 08/30/23 05:48 08/30/23 05:48 Labs: Laboratory Results - last 24 hr 08/31/23 11:13: POC Glucose 48 L 08/31/23 11:55: POC Glucose 80 08/31/23 15:39: POC Glucose 107 H 08/31/23 22:04: POC Glucose 94 09/01/23 06:37: POC Glucose 131 H Micro: Microbiology 08/26/23 14:05 Blood Culture (Wb) - Right Hand Blood Culture - Final No growth in 5 days. 08/26/23 14:25 Blood Culture (Wb) - Right Wrist Blood Culture - Final No growth in 5 days. 08/26/23 10:10 Mucosa - Nasopharyngeal SARS-CoV-2, Influenza & RSV (PCR) - Final 08/25/23 08:17 Mucosa - Nasopharyngeal Respiratory Panel (PCR) - Final 08/25/23 05:36 Mucosa - Nose SARS-CoV-2, Influenza & RSV (PCR) - Final Radiography Diagnostic Testing: Radiology Impression Venous Doppler Study 08/29/23 12:36 Interpretation Summary Deep veins of the bilateral lower extremities are patent and compressible segmentally. There is no evidence of bilateral lower extremity deep vein thrombosis. The bilateral great saphenous veins appear patent and compressible segmentally. Ordering Physician: Jaya Rachel Referring Physician: Jesse Curran Performed By: Sarai Ashby RVT Rhythm Strip Rhythm Strip: Sinus Tach Rate: 100 Ectopy: None Physical Exam Const alert Constitutional Narrative: pleasant. Orientation / Consciousness: confused HEENT head/scalp atraumatic and moist oral mucous membranes Resp normal respiratory effort, no retractions, no use of accessory muscles and clear to auscultation bilaterally Cardio regular rate, regular rhythm, S1 normal heart sound and S2 normal heart sound GI normal to inspection, nondistended, normoactive bowel sounds, soft to palpation and non-tender Extremity normal to inspection and full ROM Extremity Narrative: ice pack on right ankle. no edema. Assessment & Plan Assessment/Plan (1) Accidental fall from bed: (2) Acute exacerbation of chronic obstructive pulmonary disease (COPD): PLAN: Plan Community-acquired pneumonia. * RULED OUT * infectious work up negative * DC abx and observe. COPD w/o exacarbation * stable * BDs Adult failure to thrive with falls * PT OT Elevated troponin * I see no troponins in recent labs, though they had been high in 02/13. * Echo 08/26 shows an EF of 60% Elevated ESR and CRP * have been both elevated in the past, though higher now. * infectious work up, tib-fib xrays, foot xray negative. * in 2019, had RF, CCP, NATALIE that were negative. * recommend outpt follow up with rheumatology. DM2 * stable * glargine, empagliflozin Acute kidney injury * improved with IVF. Chronic conditions: * Class III obesity with BMI of 48? Complicating care weight loss advised * Intertrigo? Requested for nystatin powder to be applied to skin folds * Paroxysmal A-fib? Patient was in sinus rhythm on admission * Obstructive sleep apnea? Consistent use of PAP therapy encourage * Depression with anxiety? Patient is on escitalopram as well as bupropion continue * Restless leg syndrome? Patient is on ropinirole continue VTE prophylaxis: -Heparin SC Disposition: pending insurance authorization. Charges/Coding Visit Charges Inpatient E&M: 22532 Subs Hosp L2
[2023-09-01] MEDS: Insulin Lispro 100 UNIT/ML INSULN.PEN SC (11:39)
[2023-09-01 11:54] LABS: Bedside Glucose 188 mg/dL (74-106)
--- NOTE | 2023-09-01 15:47 | CASEMGMT ---
JESSICA sent today's PT/OT notes to [facility] and asked if they have heard anything from insurance. They have not, but will check. Arin RANDALL
--- NOTE | 2023-09-01 16:00 | DS.PCM_ITS ---
Providers Date of Admission: 08/26/23 Primary Care Physician: Dr. Jesse Curran, DO Reason For Visit: FAILURE TO THRIVE Diagnosis Discharge Diagnosis (1) Accidental fall from bed: Status: Acute Code(s): W06.XXXA - Fall from bed, initial encounter (2) Acute exacerbation of chronic obstructive pulmonary disease (COPD): Status: Chronic Code(s): J44.1 - Chronic obstructive pulmonary disease with (acute) exacerbation Plan Community-acquired pneumonia. * RULED OUT * infectious work up negative * DC abx and observe. 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 * Echo 08/26 shows an EF of 60% Elevated ESR and CRP * have been both elevated in the past, though higher now. * infectious work up, tib-fib xrays, foot xray negative. * in 2019, had RF, CCP, NATALIE that were negative. * recommend outpt follow up with rheumatology. DM2 * stable * glargine, empagliflozin Acute kidney injury * improved with IVF. Chronic conditions: * Class III obesity with BMI of 48? Complicating care weight loss advised * Intertrigo? Requested for nystatin powder to be applied to skin folds * Paroxysmal A-fib? Patient was in sinus rhythm on admission * Obstructive sleep apnea? Consistent use of PAP therapy encourage * Depression with anxiety? Patient is on escitalopram as well as bupropion continue * Restless leg syndrome? Patient is on ropinirole continue VTE prophylaxis: -Heparin SC Disposition: to [facility] Medications at Discharge Home Medications aspirin 81 mg tablet,delayed release 81 mg PO DAILY HEART HEALTH #90 tabs 10/25/20 albuterol sulfate 90 mcg/actuation aerosol inhaler 2 puff inhalation Q4H SHORTNESS OF BREATH 01/27/23 bumetanide 1 mg tablet 1 mg PO DAILY EDEMA 01/27/23 bupropion HCl 150 mg 24 hr tablet, extended release 150 mg PO DAILY DEPRESSION 01/27/23 calcium carbonate 600 mg-vitamin D3 10 mcg (400 unit) tablet 1 tab PO BID SUPPLEMENT 01/27/23 escitalopram oxalate 20 mg tablet 20 mg PO DAILY DEPRESSION 01/27/23 fluticasone fur. 100 mcg-umeclid 62.5 mcg-vilant 25 mcg inhalat.powder (Trelegy Ellipta) 1 inh inhalation DAILY SHORTNESS OF BREATH/WHEEZING 01/27/23 meloxicam 15 mg tablet 15 mg PO DAILY ARTHRITIS 01/27/23 pravastatin 40 mg tablet 40 mg PO QPM CHOLESTEROL 01/27/23 metoprolol succinate 50 mg tablet,extended release 24 hr 50 mg PO DAILY blood pressure 08/28/23 acetaminophen 500 mg tablet 1,000 mg (2 x 500 mg) PO Q8 #0 tabs 08/31/23 nystatin 100,000 unit/gram topical powder (Nyamyc) 1 applic topical BID #0 grams 08/31/23 Hospital Course Operations None Summary of Care Provided Hospital Course: Patient presents with shortness of breath. There was some initial concern for pneumonia but no infiltrate was noted on chest x-ray so antibiotics discontinued. Seen primarily her symptoms related with COPD exacerbation. Patient was started on bronchodilators and steroids and patient overall improved. Patient will be discharged with prednisone. Patient does have elevated ESR and CRP but that is been elevated in the past. Patient's workup here was negative. She has also been evaluated for rheumatologic workup in the past which is also been negative. Would advise patient follow-up with rheumatology as outpatient. Patient was weak and debilitated will be going to [facility] in stable condition. Weight / BMI Weight Weight: 105.596 kg Body Mass Index (BMI) 47.0 ABG / Lab / Microbiology Data 08/30/23 05:48 08/30/23 05:48 Laboratory: Laboratory Results - last 24 hr 08/31/23 15:39: POC Glucose 107 H 08/31/23 22:04: POC Glucose 94 09/01/23 06:37: POC Glucose 131 H 09/01/23 11:37: POC Glucose 188 H Microbiology: Microbiology 08/26/23 14:05 Blood Culture (Wb) - Right Hand Blood Culture - Final No growth in 5 days. 08/26/23 14:25 Blood Culture (Wb) - Right Wrist Blood Culture - Final No growth in 5 days. 08/26/23 10:10 Mucosa - Nasopharyngeal SARS-CoV-2, Influenza & RSV (PCR) - Final 08/25/23 08:17 Mucosa - Nasopharyngeal Respiratory Panel (PCR) - Final 08/25/23 05:36 Mucosa - Nose SARS-CoV-2, Influenza & RSV (PCR) - Final Meaningful Use Info Meaningful Use Meaningful Use Diagnoses (Choose all that apply): None applicable Ischemic Stroke Statin Dosing Therapy Reference: STATIN DOSE THERAPY REFERENCE: * Patients > 75 years receive moderate or high dose statin therapy. * Patients 75 years or YOUNGER should receive HIGH intensity statin dose unless contraindicated. You will be required to document reason for non-treatment if statin daily dose does not meet guidelines. HIGH DOSE STATIN THERAPY DAILY Atorvastatin > than or = to 40 mg Rosuvastatin > than or = to 20 mg Amlodipine + Atorvastatin > than or = to 2.5/40 mg Ezetimibe + Simvastatin 10/80 mg Simvastatin 80mg Discharge Plan Admission Admit Date/Time: 08/26/23 16:20 Attending Provider: Mejia Grissom Primary Care Provider: Jesse Curran Consulting Providers: Maximilian Kitchen; Daryl Verduzco; Jaya Rachel Instructions Additional Instructions / Restrictions: Follow up with Rheumatology in next 2-3 months. Discharge Orders/Prescriptions Prescriptions: New acetaminophen 500 mg Tablet 1,000 mg PO Q8 Qty: 0 0RF nystatin [Nyamyc] 100,000 unit/gram Powder 1 applic topical BID Qty: 0 0RF Protocol: *Topical Application Instructions APPLICATION INSTRUCTIONS: groin folds, under breasts Continued albuterol sulfate 90 mcg/actuation HFA aerosol inhaler 2 puff INHALATION Q4H bumetanide 1 mg tablet 1 mg PO DAILY bupropion HCl 150 mg tablet extended release 24 hr 150 mg PO DAILY calcium carbonate-vitamin D3 600 mg-10 mcg (400 unit) tablet 1 tab PO BID Trelegy Ellipta 100-62.5-25 mcg blister with device 1 inh INHALATION DAILY meloxicam 15 mg tablet 15 mg PO DAILY pravastatin 40 mg tablet 40 mg PO QPM escitalopram oxalate 20 mg tablet 20 mg PO DAILY metoprolol succinate 50 mg tablet extended release 24 hr 50 mg PO DAILY aspirin 81 mg tablet,delayed release (DR/EC) 81 mg PO DAILY Qty: 90 3RF Discontinued insulin glargine 100 UNITS/ML insulin pen 100 units SC QHS Patient Comments: PTS FAMILY MEMBER STATES THAT THE PT IS SUPPOSED TO BE USING INSULIN BUT THEY HAVE NOT BEEN DOING THAT. UNSURE OF WHEN THE PT LAST USED THEIR INSULIN. ( OF 01-27-23) oxycodone-acetaminophen 1 TABLET tablet 1 tab PO Q6H gabapentin 400 MG capsule 400 mg PO DAILY ropinirole 0.5 mg tablet 0.5 - 1 mg PO QHS Patient Comments: TAKE TWO TABLETS (1MG) BY MOUTH ONCE EVERY EVENING IF NEEDED. TAKE AN ADDITIONAL 1-2 TABLETS (0.5MG-1MG) AT BEDTIME. metformin 500 mg tablet extended release 24 hr 1,000 mg PO DAILY Jardiance 25 mg tablet 25 mg PO DAILY ropinirole 0.5 mg tablet 1 mg PO QPM PRN (Reason: RESTLESS LEGS) Rx Instructions: TAKE TWO TABLETS (1MG) BY MOUTH ONCE EVERY EVENING IF NEEDED. TAKE AN ADDITIONAL 1-2 TABLETS (0.5MG-1MG) AT BEDTIME. gabapentin 400 mg capsule 800 mg PO QPM Referrals / Follow Up: Jesse Curran DO [Primary Care Provider] - Disposition Disposition (needs filled in before D/C Order can be placed): [facility] Charges/Coding Visit Charges Inpatient E&M: 94988 Disch Hosp
--- NOTE | 2023-09-01 16:02 | CASEMGMT ---
Discharge Planning Msg received from [facility] that patient can admit today. Kira Krause DC Planning Asst.
--- NOTE | 2023-09-01 16:03 | CASEMGMT ---
[facility] said they don't have official approval, but they will have it by the end of the day so transport can be set up. SW notified physician and RN. SW completed a 7000 in HENS system. Plan: d/c to [facility] under skilled level of care on a convalescent stay. Physicians will transport patient via cot. Arin RANDALL
--- NOTE | 2023-09-01 16:11 | NURSING ---
report called to [facility]
--- NOTE | 2023-09-01 16:17 | CASEMGMT ---
Discharge Planning Discharge orders, signed med list, and transport time sent to [facility] via [facility]. Physicians will transport patient by cot at 7:30p. Nursing and SW updated. Attempted to call pts niece (Amie) but her vm was not set up. typing secretary updated. Kira Krause DC Planning Asst.
[2023-09-01 18:59] LABS: Bedside Glucose 99 mg/dL (74-106)
== END 2023-09-01 21:00 | disposition skilled nursing facility (03) | DRG 191 ==
LOC: ED 07:58 → MS3 08:00 → PCU 08-26 10:50
PROVIDERS: Internal Medicine; Admitting Provider Internal Medicine; Emergency Provider Emergency Medicine; PCP Student in an Organized Health Care Education/Training Program
DX: J44.1 Chronic obstructive pulmonary disease with (acute) exacerbation (principal); E87.20 Acidosis, unspecified; N17.9 Acute kidney failure, unspecified; J96.11 Chronic respiratory failure with hypoxia; Z68.42 Body mass index [BMI] 45.0-49.9, adult; E11.51 Type 2 diabetes mellitus with diabetic peripheral angiopathy without gangrene; I48.0 Paroxysmal atrial fibrillation; G25.81 Restless legs syndrome; R62.7 Adult failure to thrive; E66.01 Morbid (severe) obesity due to excess calories; Z79.4 Long term (current) use of insulin; F32.A Depression, unspecified; E78.00 Pure hypercholesterolemia, unspecified; G47.33 Obstructive sleep apnea (adult) (pediatric); F41.9 Anxiety disorder, unspecified; S20.211A Contusion of right front wall of thorax, initial encounter; W06.XXXA Fall from bed, initial encounter; L30.4 Erythema intertrigo; M79.604 Pain in right leg; R50.9 Fever, unspecified; Z99.81 Dependence on supplemental oxygen; Z11.52 Encounter for screening for COVID-19; Z79.84 Long term (current) use of oral hypoglycemic drugs; Z79.51 Long term (current) use of inhaled steroids; Z79.82 Long term (current) use of aspirin; Z79.899 Other long term (current) drug therapy; Z87.891 Personal history of nicotine dependence; R41.0 Disorientation, unspecified
CPT/HCPCS: 36415; 36600; 70470; 71101; 72170; 73590; 73630; 80048; 80053; 81001; 82803; 82962; 83605; 83735; 84100; 84550; 85025; 85652; 86140; 87040; 87631; 87633; 93005; 93306; 93970; 94640; 97163; 97166; 97530; 97535; 99284; 99406; J7030; J7040; J7050; P9612; Q9957; Q9967; A4216; J0696; J2405

== ENCOUNTER 2024-02-21 21:12 | Emergency (ER) | payer MEDICARE, MEDICAID, SELFPAY ==
[2024-02-21 21:13] VITALS: BP 150/98; PULSE 102; RESP 40; TEMP 36.6; O2SAT 97
[2024-02-21 21:42] VITALS: O2SAT 100
--- NOTE | 2024-02-21 21:42 | EKG12_ITS ---
Test Reason : SOB Blood Pressure : */* mmHG Vent. Rate : 92 BPM Atrial Rate : 92 BPM P-R Int : 164 ms QRS Dur : 90 ms QT Int : 366 ms P-R-T Axes : 68 -49 57 degrees QTcB Int : 452 ms Normal sinus rhythm Left anterior fascicular block Cannot rule out Inferior infarct (cited on or before 26-Jul-2023) Cannot rule out Anterior infarct , age undetermined Abnormal ECG Confirmed by BOB BUTTERFIELD MD ([id number]), news video editor JASVIR NESBITT ([id number]) on 02/22/2024 8:03:35 AM Referred By: Confirmed By: BOB BUTTERFIELD MD
[2024-02-21] MEDS: Ipratropium/Albuterol Sulfate 3 ML AMPUL.NEB 9 ML INHALATION (21:48)
[2024-02-21 21:51] VITALS: PULSE 118; RESP 24
[2024-02-21] MEDS: MethylPREDNISolone 125 MG/2 ML Vial IV (22:05)
[2024-02-21] MEDS: 0.9% Normal Saline (500mL Bag) 500 ML 999 ML IV (22:05)
--- NOTE | 2024-02-21 22:05 | ED.VIS.DYS ---
HPI History of Present Illness Chief Complaint: Shortness of Breath Narrative Narrative: Chief complaint and HPI: Shortness of breath. 73-year-old female with history of COPD on as needed oxygen, HTN, HLD presents for evaluation of shortness of breath. Patient states that a young family member was recently diagnosed with RSV. Patient states this evening she became progressively short of breath. She endorses nasal congestion and mild cough. Endorses chest tightness but no true chest pain. She denies any fever, chills, abdominal pain, nausea, vomiting. Patient is on Trelegy Ellipta 1-year-old and as needed albuterol for her COPD. Previous smoker. She does not use nebulizers. Review of systems: See HPI Medications: As listed on the chart Allergies: As listed on the chart PFSH: Per chart Vital signs: As listed on the chart. Reviewed. Physical exam: Gen: A&O x3, NAD Head: Normocephalic, atraumatic Eyes: No sclera icterus, conjunctiva clear ENT: Moist mucous membranes Neck: Trachea midline, No JVD CV: Tachycardic, regular rhythm, no murmurs, no peripheral edema Resp: Poor airflow, diminished throughout, tight, expiratory wheezing GI: Abd soft, non-distended, non-tender, no r/r/g Musc: Full ROM, no deformity Skin: Warm, dry Neuro: Alert, oriented, grossly intact, sensation intact Psych: Cooperative, appropriate mood and affect [facility] Medical History Hypercholesteremia Peripheral vascular disease Palpitations Vertigo Osteoarthritis Diabetes mellitus type 2 in obese Paroxysmal atrial fibrillation Obstructive sleep apnea Home Medications ?Medication ?Instructions ?Recorded ?Last Taken ?Type aspirin 81 mg tablet,delayed 81 mg PO DAILY HEART HEALTH #90 10/25/20 01/26/23 Rx release tabs albuterol sulfate 90 mcg/actuation 2 puff inhalation Q4H SHORTNESS OF 01/27/23 01/26/23 History aerosol inhaler BREATH bumetanide 1 mg tablet 1 mg PO DAILY EDEMA 01/27/23 01/26/23 History bupropion HCl 150 mg 24 hr tablet, 150 mg PO DAILY DEPRESSION 01/27/23 01/26/23 History extended release calcium 600 mg (as 1 tab PO BID SUPPLEMENT 01/27/23 01/26/23 History carbonate)-vitamin D3 10 mcg (400 unit) tablet escitalopram oxalate 20 mg tablet 20 mg PO DAILY DEPRESSION 01/27/23 01/26/23 History fluticasone fur. 100 mcg-umeclid 1 inh inhalation DAILY SHORTNESS 01/27/23 01/26/23 History 62.5 mcg-vilant 25 mcg OF BREATH/WHEEZING inhalat.powder (Trelegy Ellipta) meloxicam 15 mg tablet 15 mg PO DAILY ARTHRITIS 01/27/23 01/26/23 History pravastatin 40 mg tablet 40 mg PO QPM CHOLESTEROL 01/27/23 01/26/23 History metoprolol succinate 50 mg 50 mg PO DAILY blood pressure 08/28/23 Unknown History tablet,extended release 24 hr acetaminophen 500 mg tablet 1,000 mg (2 x 500 mg) PO Q8 #0 tabs 08/31/23 Unknown Rx nystatin 100,000 unit/gram topical 1 applic topical BID #0 grams 08/31/23 Unknown Rx powder ([facility]) prednisone 20 mg tablet 60 mg (3 x 20 mg) PO DAILY 5 days 02/21/24 Unknown Rx #15 TABLETS Allergy/AdvReac Type Severity Reaction Status Date / Time ampicillin Allergy Hives Verified 02/21/24 21:16 codeine Allergy Hives Verified 02/21/24 21:16 meperidine HCl (From Demerol) Allergy Hives Verified 02/21/24 21:16 Penicillins (PCN) Allergy Hives Verified 02/21/24 21:16 propoxyphene napsylate (From Allergy Hives Verified 02/21/24 21:16 Darvocet-N) Family History Mother Heart disease Brother Heart disease Grandfather CVA (cerebral vascular accident) Grandmother Myocardial infarction Surgical History History of laparoscopic cholecystectomy (~11/2019) History of lumpectomy of both breasts History of cardiac catheterization History of knee replacement History of hysterectomy History of tubal ligation History of appendectomy Social History Smoking Status: Former smoker alcohol intake: never substance use type: does not use caffeine: Yes Type: coffee Number of servings: 5 EXAM Physical Exam Const Vital Signs: 02/21/24 21:13 02/21/24 21:42 02/21/24 21:51 Temperature 97.8 F Temperature Source Temporal Pulse Rate 102 H 118 H Respiratory Rate 40 H 24 H Respiratory Effort Respiratory Depth Respiratory Pattern Blood Pressure 150/98 H Blood Pressure Mean 115 Pulse Ox 97 100 Oxygen Delivery Method Room Air Room Air 02/21/24 22:00 02/21/24 22:12 02/21/24 23:00 Temperature Temperature Source Pulse Rate 98 88 Respiratory Rate 16 18 Respiratory Effort Short of Breath Respiratory Depth Deep Respiratory Pattern Tachypnea Blood Pressure 154/67 H 154/80 H Blood Pressure Mean 96 104 Pulse Ox 98 98 Oxygen Delivery Method Room Air Room Air Room Air 02/21/24 23:54 Temperature 97.8 F Temperature Source Pulse Rate 93 Respiratory Rate 20 H Respiratory Effort Respiratory Depth Respiratory Pattern Blood Pressure 160/82 H Blood Pressure Mean 108 Pulse Ox 98 Oxygen Delivery Method MDM MDM MDM Narrative Medical decision making narrative: 73-year-old female with history of COPD on oxygen as needed, HTN, HLD presents for evaluation of shortness of breath. Differential diagnosis includes but is not limited to COPD exacerbation, RSV infection, COVID-19 infection, influenza, pneumonia. Suspect less likely ACS. Solu-Medrol, NS bolus, DuoNebs x 3 ordered. Respiratory workup ordered. Chest x-ray and EKG reviewed. No pneumonia. CBC with mild leukocytosis of 11.6. No anemia. BMP shows renal insufficiency with a creatinine of 1.36. Patient has a history of renal insufficiency on chart review. Troponin unremarkable. COVID, influenza, RSV negative. On reexamination, patient's shortness of breath has improved. Her vitals are stable other than mild hypertension. No hypoxia. She has more airflow and is no longer tight. Wheezing improved. Patient's symptoms are likely secondary to his COPD exacerbation. Plan is for discharge home on 5-day course of prednisone. Follow-up with PCP. Continue home inhalers. Patient confirmed understanding of the plan. EKG: Interpreted by me/EM physician: EKG shows normal sinus rhythm without any acute ischemic changes. Patient does have a left anterior fascicular block that's known. Heart rate 92. Diagnostic: Interpreted by me/EM physician: Chest x-ray without pneumonia, effusion, cardiomegaly, pneumothorax Impression: 1. COPD exacerbation Lab Data Labs: Laboratory Results - last 24 hr 02/21/24 22:06 WBC 11.6 H RBC 4.04 L Hgb 13.0 Hct 39.3 MCV 97.3 MCH 32.2 H MCHC 33.1 RDW Std Deviation 51.4 H RDW Coeff of Penny 14.3 Plt Count 375 MPV 10.8 Immature Gran % (Auto) 0.700 Neut % (Auto) 69.9 Lymph % (Auto) 22.2 [place] % (Auto) 5.5 Eos % (Auto) 1.2 Baso % (Auto) 0.5 Absolute Neuts (auto) 8.1 H Absolute Lymphs (auto) 2.58 Nucleated RBC % 0 Sodium 138 Potassium 3.8 Chloride 100 Carbon Dioxide 30.0 Anion Gap 8 BUN 18 Creatinine 1.36 H Est GFR (MDRD) Af Amer 49 L Est GFR (MDRD) Non-Af 41 L BUN/Creatinine Ratio 13.2 Glucose 148 H Calcium 9.7 Troponin I High Sens 12 ABG Data ABG results: ABG 02/21/24 22:35 Specimen Type ANDRÉS Sample Site Not entered VBG pH 7.51 H VBG pO2 28 VBG HCO3 24 VBG Total CO2 25 VBG O2 Sat (Calc) 61 VBG Base Excess 1 POC Mix VBG pCO2 Pt Tmp 29.7 L O2 Delivery Device Room Air Radiography Diagnostic Testing: Clinical Impression(s) from Imaging Studies Chest X-Ray 02/21/24 22:32 IMPRESSION: No acute cardiopulmonary disease. Electronically Signed: Mikey Vanegas MD at 0:08 EST , Discharge Plan Triage Chief Complaint: Shortness of Breath ED Provider: Juliocesar Hyatt Dx/Rx/DC Orders Clinical Impression: COPD exacerbation Instructions: ED COPD Flare Prescriptions: New prednisone 20 mg tablet 60 mg PO DAILY 5 Days Qty: 15 0RF No Action albuterol sulfate 90 mcg/actuation HFA aerosol inhaler 2 puff INHALATION Q4H bumetanide 1 mg tablet 1 mg PO DAILY bupropion HCl 150 mg tablet extended release 24 hr 150 mg PO DAILY calcium carbonate-vitamin D3 600 mg-10 mcg (400 unit) tablet 1 tab PO BID Trelegy Ellipta 100-62.5-25 mcg blister with device 1 inh INHALATION DAILY meloxicam 15 mg tablet 15 mg PO DAILY pravastatin 40 mg tablet 40 mg PO QPM escitalopram oxalate 20 mg tablet 20 mg PO DAILY metoprolol succinate 50 mg tablet extended release 24 hr 50 mg PO DAILY acetaminophen 500 mg Tablet 1,000 mg PO Q8 Qty: 0 0RF nystatin [Nyamyc] 100,000 unit/gram Powder 1 applic topical BID Qty: 0 0RF Protocol: *Topical Application Instructions APPLICATION INSTRUCTIONS: groin folds, under breasts aspirin 81 mg tablet,delayed release (DR/EC) 81 mg PO DAILY Qty: 90 3RF Primary Care Provider: Jesse Curran Referrals: Jesse Curran DO [Primary Care Provider] - 3-5 Days Activity Restrictions/Additional Instructions: Return back to the ED if symptoms change or worsen. Follow-up with your primary care physician. Use your inhalers Print Language: Palauan Disposition Disposition: Home, Self Care Discharge Date/Time: 02/21/24 23:55
[2024-02-21 22:12] VITALS: BP 154/67; PULSE 98; RESP 16; O2SAT 98
[2024-02-21 22:13] LABS: Absolute Lymphocyte Count 2.58 X10^3/uL (0.83-4.51); Absolute Neutrophil Count 8.1 X10^3/uL (2.0-7.7); Basophil# 0.06 X10^3/uL; Basophil% 0.5 % (0-1); Eosinophil# 0.14 X10^3/uL; Eosinophils% 1.2 % (0-5); Hematocrit 39.3 % (37-47); Lymphocyte # 2.58 X10^3/ul (0.83-4.51); Lymphocyte % 22.2 % (19-41); Mean Corp Hgb Conc 33.1 g/dL (32-36); Mean Corpuscular Hgb 32.2 pg (27.0-32.0); Mean Corpuscular Volume 97.3 fL (81-99); Mean Platelet Vol. 10.8 fl (6.2-12.0); Monocyte# 0.64 X10^3/uL; Monocyte% 5.5 % (0-10); NRBC Flagged by Analyzer 0 % (0-5); Neutrophil % 69.9 % (47-70); Platelet Count 375 K/mm3 (150-450); RBC Distribution Width CV 14.3 % (11.6-14.6); RBC Distribution Width SD 51.4 fl (35.1-43.9); Red Blood Count 4.04 M/mm3 (4.2-5.4); White Blood Count 11.6 K/mm3 (4.4-11.0)
[2024-02-21 22:30] LABS: Anion Gap 8 (5-15); BUN 18 mg/dL (7-18); BUN/Creat Ratio 13.2 RATIO (10-20); Calcium,Total 9.7 mg/dL (8.5-10.1); Chloride 100 mmol/L (98-107); Creatinine, Serum 1.36 mg/dL (0.55-1.02); EST Glomerular Filtration Rate 41 mL/min (>60); Est Glom Filt Rate - Afr Amer 49 mL/min (>60); Glucose 148 mg/dL (74-106); Potassium 3.8 mmol/L (3.5-5.1); Sodium Level 138 mmol/L (136-145); Troponin-I HS 12 pg/mL (3.0-54.0)
--- NOTE | 2024-02-21 22:32 | RAD_ITS ---
EXAM: XR CHEST, 2 VIEWS CLINICAL INDICATION: Shortness of breath TECHNIQUE: Frontal and lateral views of the chest. COMPARISON: No relevant prior studies available. FINDINGS: LUNGS AND PLEURAL SPACES: Calcified granulomas at the periphery of the left upper lobe. Mild subsegmental atelectasis and/or scarring at the lung bases. No consolidation. No pleural effusion or pneumothorax. HEART: Unremarkable. Cardiac silhouette not enlarged. MEDIASTINUM: Central airways and mediastinal contour are unremarkable. BONES/JOINTS: Degenerative changes of the spine and acromioclavicular joints. No acute fracture. SOFT TISSUES: Unremarkable. VASCULATURE: Atherosclerotic calcifications of the nonenlarged thoracic arch. RAD/Chest PA and Lateral IMPRESSION: No acute cardiopulmonary disease. Electronically Signed: Mikey Vanegas MD at 0:08 EST ,
[2024-02-21 22:38] LABS: Blood Gas Specimen Type VEN; O2 Delivery Device Room Air; SITE Not entered; VBG BASE EXCESS 1 mmol/L (-1.0-3.5); VBG Bicarbonate 24 mmol/L (22-26); VBG PO2 28 mmHg (25-40); VBG SO2 61 % (50-70); VBG TCO2 25 mmol/L (23-33); VBG pCO2 29.7 mmHg (41-51); VBG pH 7.51 (7.32-7.42)
[2024-02-21 23:00] VITALS: BP 154/80; PULSE 88; RESP 18; O2SAT 98
[2024-02-21 23:54] VITALS: BP 160/82; PULSE 93; RESP 20; TEMP 36.6; O2SAT 98
== END 2024-02-21 23:55 | disposition home or self-care (01) ==
PROVIDERS: Emergency Provider Surgery; PCP Student in an Organized Health Care Education/Training Program; Visit Provider Surgery
DX: J44.1 Chronic obstructive pulmonary disease with (acute) exacerbation (principal); I48.0 Paroxysmal atrial fibrillation; E11.9 Type 2 diabetes mellitus without complications; E78.00 Pure hypercholesterolemia, unspecified; I10 Essential (primary) hypertension; Z87.891 Personal history of nicotine dependence; Z79.51 Long term (current) use of inhaled steroids; Z79.82 Long term (current) use of aspirin; Z79.899 Other long term (current) drug therapy; M19.90 Unspecified osteoarthritis, unspecified site; Z90.49 Acquired absence of other specified parts of digestive tract; Z96.659 Presence of unspecified artificial knee joint; Z90.710 Acquired absence of both cervix and uterus; Z98.51 Tubal ligation status
CPT/HCPCS: 71046; 80048; 82803; 84484; 85025; 87631; 93005; 94640; 96361; 96374; 99284

== ENCOUNTER 2024-03-09 22:06 | Emergency (ER) | payer MEDICARE, MEDICAID, SELFPAY ==
[2024-03-09 22:06] VITALS: PULSE 100; RESP 24; TEMP 36.6; O2SAT 100; O2SAT 96; BMI 45.5
[2024-03-09 22:13] VITALS: BP 166/87; PULSE 100; RESP 24; TEMP 36.6; O2SAT 100
[2024-03-09 22:32] VITALS: O2SAT 100
--- NOTE | 2024-03-09 22:36 | EDS_ITS ---
HPI History of Present Illness Chief Complaint: Shortness of Breath Narrative Narrative: 73-year-old female past medical history of COPD presents via EMS with 1 hour of shortness of breath. She states it was sudden onset. Of note, she states she was also seen in the emergency department about a week ago for COPD and was discharged home. She has multiple somatic complaints. She states has been out of aerosol treatments for at least a month. She quit smoking a year ago. She has oxygen at home which she wears as needed but mostly during the day. States she has been coughing, sometimes productive. She has chest tightness as well. No exacerbating or alleviating factors. [facility] Medical History Morbid obesity HTN (hypertension) Urinary, incontinence, stress female Tobacco abuse disorder Obesity Hypercholesteremia Peripheral vascular disease Palpitations Vertigo Osteoarthritis Diabetes mellitus type 2 in obese Paroxysmal atrial fibrillation Obstructive sleep apnea Home Medications ?Medication ?Instructions ?Recorded ?Last Taken ?Type aspirin 81 mg tablet,delayed 81 mg PO DAILY HEART [employer] #90 10/25/20 01/26/23 Rx release tabs albuterol sulfate 90 mcg/actuation 2 puff inhalation Q4H SHORTNESS OF 01/27/23 01/26/23 History aerosol inhaler BREATH bumetanide 1 mg tablet 1 mg PO DAILY EDEMA 01/27/23 01/26/23 History bupropion HCl 150 mg 24 hr tablet, 150 mg PO DAILY DEPRESSION 01/27/23 01/26/23 History extended release calcium 600 mg (as 1 tab PO BID SUPPLEMENT 01/27/23 01/26/23 History carbonate)-vitamin D3 10 mcg (400 unit) tablet escitalopram oxalate 20 mg tablet 20 mg PO DAILY DEPRESSION 01/27/23 01/26/23 History fluticasone fur. 100 mcg-umeclid 1 inh inhalation DAILY SHORTNESS 01/27/23 01/26/23 History 62.5 mcg-vilant 25 mcg OF BREATH/WHEEZING inhalat.powder (Trelegy Ellipta) pravastatin 40 mg tablet 40 mg PO QPM CHOLESTEROL 01/27/23 01/26/23 History metoprolol succinate 50 mg 50 mg PO DAILY blood pressure 08/28/23 Unknown History tablet,extended release 24 hr acetaminophen 500 mg tablet 1,000 mg (2 x 500 mg) PO Q8 #0 tabs 08/31/23 Unknown Rx apixaban 5 mg tablet (Eliquis) 5 mg PO BID 03/09/24 Unknown History empagliflozin 25 mg tablet 25 mg PO DAILY 03/09/24 Unknown History (Jardiance) gabapentin 400 mg capsule 400 mg PO TID 03/09/24 Unknown History levothyroxine 75 mcg tablet 75 mcg PO DAILY 03/09/24 Unknown History meloxicam 7.5 mg tablet 7.5 mg PO DAILY 03/09/24 Unknown History metformin 500 mg tablet,extended 1,000 mg PO DAILY 03/09/24 Unknown History release 24 hr mupirocin 2 % topical ointment 1 applic topical DAILY 03/09/24 Unknown History nystatin 100,000 unit/gram topical 1 applic topical BID PRN rash 03/09/24 Unknown History powder ([facility] [place]) oxycodone-acetaminophen 5 mg-325 1 tab PO Q6H PRN pain 03/09/24 Unknown History mg tablet ropinirole 0.5 mg tablet 1 mg PO BID 03/09/24 Unknown History venlafaxine 225 mg tablet,extended 225 mg PO DAILY 03/09/24 Unknown History release 24 hr Allergy/AdvReac Type Severity Reaction Status Date / Time ampicillin Allergy Hives Verified 03/09/24 22:08 codeine Allergy Hives Verified 03/09/24 22:08 meperidine HCl (From Demerol) Allergy Hives Verified 03/09/24 22:08 Penicillins (PCN) Allergy Hives Verified 03/09/24 22:08 propoxyphene napsylate (From Allergy Hives Verified 03/09/24 22:08 Darvocet-N) Family History Mother Heart disease Brother Heart disease Grandfather CVA (cerebral vascular accident) Grandmother Myocardial infarction Surgical History History of laparoscopic cholecystectomy (~11/2019) History of lumpectomy of both breasts History of cardiac catheterization History of knee replacement History of hysterectomy History of tubal ligation History of appendectomy Social History Smoking Status: Former smoker alcohol intake: never substance use type: does not use caffeine: Yes Type: coffee Number of servings: 5 ROS ROS ED ROS Narrative Constitutional: No fever, no chills. HEENT: No sore throat. No neck pain. No loss of vision. No rhinorrhea. Cardiovascular: Positive chest tightness/chest pain. No palpitations. No pedal edema. Respiratory: Positive cough, 1 hour shortness of breath. Abdominal: No abdominal pain. Positive nausea. Genitourinary: No dysuria. No hematuria. Musculoskeletal: No myalgias. No arthralgias. Neurologic: No headaches. No dizziness. No lightheadedness. Skin: No rash. No change in color. Psychiatric: No depression. No anxiety. EXAM Physical Exam Narrative Exam Narrative: Afebrile. Vital signs noted. Nontoxic-appearing. HEENT examination grossly unremarkable. Neck soft and supple without stridor. Cardiovascular examination reveals a regular rate and rhythm. Mild tachypnea. Lungs are clear to auscultation bilaterally without wheezing, moving a good amount of air. Speaking in full sentences. Abdomen soft, nontender, obese, with positive bowel sounds. Neurological examination shows her to be awake, alert, and oriented. Const Vital Signs: 03/09/24 22:06 03/09/24 22:13 03/09/24 22:32 Temperature 97.8 F 97.8 F Temperature Source Oral Oral Pulse Rate 100 100 Respiratory Rate 24 H 24 H Respiratory Effort Short of Breath Respiratory Depth Deep Respiratory Pattern Tachypnea Blood Pressure 166/87 H Blood Pressure Mean 113 Pulse Ox 100 100 Oxygen Delivery Method Room Air Room Air Room Air 03/09/24 22:33 03/09/24 23:13 03/10/24 00:00 Temperature 98 F 97.8 F Temperature Source Oral Oral Pulse Rate 92 66 Respiratory Rate 19 H 22 H Respiratory Effort Respiratory Depth Respiratory Pattern Blood Pressure 139/107 H 99/67 Blood Pressure Mean 117 77 Pulse Ox 97 98 Oxygen Delivery Method Room Air Room Air Room Air MDM MDM MDM Narrative Medical decision making narrative: Differential diagnosis includes but not limited to ACS versus COPD exacerbation versus pneumonia versus pneumothorax versus CHF. Comprehensive workup was pursued. EKG was obtained and interpreted by myself independently as normal sinus rhythm at 87 bpm with premature supraventricular complexes. No acute ST changes. No STEMI. Her pulse ox is 100% on room air. She was placed on 3 L nasal cannula for comfort. She was weaned off oxygen later. She is satting 98 to 100% on room air. I reviewed her laboratory work and she has slight leukocytosis of 13.1 which I think is nonspecific and additionally she has chronic leukocytosis, hemoglobin normal at 14.9, platelet count normal at 332. Electrolyte panel shows BUN of 20 with creatinine slightly elevated at 1.46, glucose 171 but normal anion gap of 7. BNP is normal at 49 so I doubt CHF. Initial high-sensitivity troponin is 16 with repeat at 2 hours being 17 for an acceptable delta troponin. I doubt ACS and feel she has not been ruled out for this with biomarkers. Chest x-ray 1 view interpreted by myself shows no pneumonia or pneumothorax. I reviewed the radiology report which confirms my independent interpretation. At this point in time, I do not feel she requires observation or admission. She has home oxygen to use. Additionally, I asked if she used a nebulizer but do not see any nebulizer treatments written as home medications. She states she has 3 albuterol inhalers at home and she was encouraged to use them 1 to 2 puffs inhaled every 4-6 hours especially over the next few days. Additionally, previously she was given a 5-day burst of steroids. I offered this to her again, but she declined. She will call her business excellence leader tomorrow. I feel she can be discharged safely home with follow-up. Return instructions reviewed. Disposition is discharged home in stable condition. History & Record Review Discussion w/independent historian: Patient Additional record(s) reviewed:: Prior labs Lab Data Attestation: I reviewed the patient's lab results. Labs: Laboratory Results - last 24 hr 03/09/24 03/10/24 22:21 00:35 WBC 13.1 H RBC 4.65 Hgb 14.9 Hct 44.8 MCV 96.3 MCH 32.0 MCHC 33.3 RDW Std Deviation 49.6 H RDW Coeff of Penny 14.0 Plt Count 332 MPV 11.7 Immature Gran % (Auto) 0.800 Neut % (Auto) 67.2 Lymph % (Auto) 23.9 [place] % (Auto) 6.5 Eos % (Auto) 0.8 Baso % (Auto) 0.8 Absolute Neuts (auto) 8.8 H Absolute Lymphs (auto) 3.14 Nucleated RBC % 0 Sodium 137 Potassium 3.8 Chloride 102 Carbon Dioxide 28.0 Anion Gap 7 BUN 20 H Creatinine 1.46 H Estim Creat Clear Calc 37.51 Est GFR (MDRD) Af Amer 45 L Est GFR (MDRD) Non-Af 37 L BUN/Creatinine Ratio 13.7 Glucose 171 H Calcium 9.9 Troponin I High Sens 16 17 B-Natriuretic Peptide 49.2 Radiography Chest X-Ray - ED: 1 View, Read by ED Physician, Read by Radiologist and Normal Diagnostic Testing: Clinical Impression(s) from Imaging Studies Chest X-Ray 03/09/24 23:00 IMPRESSION: No acute findings in the chest. Electronically Signed: Perez Khoury MD at 23:34 EST , Discharge Plan Triage Chief Complaint: Shortness of Breath ED Provider: Hunter Ryan Dx/Rx/DC Orders Clinical Impression: SOB (shortness of breath), COPD exacerbation, Chest pain Instructions: ED COPD Flare, ED Chest Pain, Uncertain Cause, ED Dyspnea Prescriptions: No Action albuterol sulfate 90 mcg/actuation HFA aerosol inhaler 2 puff INHALATION Q4H bumetanide 1 mg tablet 1 mg PO DAILY bupropion HCl 150 mg tablet extended release 24 hr 150 mg PO DAILY calcium carbonate-vitamin D3 600 mg-10 mcg (400 unit) tablet 1 tab PO BID Trelegy Ellipta 100-62.5-25 mcg blister with device 1 inh INHALATION DAILY pravastatin 40 mg tablet 40 mg PO QPM escitalopram oxalate 20 mg tablet 20 mg PO DAILY metoprolol succinate 50 mg tablet extended release 24 hr 50 mg PO DAILY acetaminophen 500 mg Tablet 1,000 mg PO Q8 Qty: 0 0RF Eliquis 5 mg tablet 5 mg PO BID Jardiance 25 mg tablet 25 mg PO DAILY gabapentin 400 mg capsule 400 mg PO TID levothyroxine 75 mcg tablet 75 mcg PO DAILY meloxicam 7.5 mg tablet 7.5 mg PO DAILY oxycodone-acetaminophen 5-325 mg tablet 1 tab PO Q6H PRN (Reason: pain) ropinirole 0.5 mg tablet 1 mg PO BID mupirocin 2 % ointment 1 applic topical DAILY metformin 500 mg tablet extended release 24 hr 1,000 mg PO DAILY venlafaxine 225 mg tablet extended release 24hr 225 mg PO DAILY nystatin [Nyamyc] 100,000 unit/gram Powder 1 applic topical BID PRN (Reason: rash) Protocol: *Topical Application Instructions APPLICATION INSTRUCTIONS: groin folds, under breasts aspirin 81 mg tablet,delayed release (DR/EC) 81 mg PO DAILY Qty: 90 3RF Primary Care Provider: Jesse Curran Referrals: Jesse Curran, [Primary Care Provider] - 3-5 Days if not improving Activity Restrictions/Additional Instructions: Call your business excellence leader tomorrow. Return to the emergency department with increased difficulty breathing, new or worsening symptoms. Use your albuterol inhaler 1 to 2 puffs inhaled every 4-6 hours especially over the next few days. Print Language: Nauruan Disposition Disposition: Home, Self Care
[2024-03-09 22:51] LABS: Absolute Lymphocyte Count 3.14 X10^3/uL (0.83-4.51); Absolute Neutrophil Count 8.8 X10^3/uL (2.0-7.7); Basophil% 0.8 % (0-1); Eosinophils% 0.8 % (0-5); Hematocrit 44.8 % (37-47); Hemoglobin 14.9 g/dL (12.0-15.0); Lymphocyte # 3.14 X10^3/ul (0.83-4.51); Lymphocyte % 23.9 % (19-41); Mean Corp Hgb Conc 33.3 g/dL (32-36); Mean Corpuscular Volume 96.3 fL (81-99); Mean Platelet Vol. 11.7 fl (6.2-12.0); Monocyte# 0.86 X10^3/uL; Monocyte% 6.5 % (0-10); NRBC Flagged by Analyzer 0 % (0-5); Neutrophil # 8.84 X10^3/uL (2.7-7.7); Neutrophil % 67.2 % (47-70); Platelet Count 332 K/mm3 (150-450); RBC Distribution Width SD 49.6 fl (35.1-43.9); Red Blood Count 4.65 M/mm3 (4.2-5.4); White Blood Count 13.1 K/mm3 (4.4-11.0)
--- NOTE | 2024-03-09 23:00 | RAD_ITS ---
EXAM: XR CHEST, 1 VIEW CLINICAL INDICATION: Shortness of breath TECHNIQUE: Frontal view of the chest. COMPARISON: 02/21/2024 FINDINGS: LUNGS AND PLEURAL SPACES: There is a calcified granuloma in the left midlung. No pneumothorax. No effusion. HEART: Unremarkable. Cardiac silhouette not enlarged. MEDIASTINUM: Central airways and mediastinal contour are unremarkable. BONES/JOINTS: Unremarkable. No acute fracture. SOFT TISSUES: Unremarkable. RAD/Chest 1 View (Portable) IMPRESSION: No acute findings in the chest. Electronically Signed: Perez Khoury MD at 23:34 EST ,
[2024-03-09 23:03] VITALS: O2SAT 100
[2024-03-09 23:10] LABS: BNP,B-Type NATRIURETIC PEPTIDE 49.2 pg/mL (0-100)
[2024-03-09 23:11] LABS: Anion Gap 7 (5-15); BUN 20 mg/dL (7-18); BUN/Creat Ratio 13.7 RATIO (10-20); Calcium,Total 9.9 mg/dL (8.5-10.1); Chloride 102 mmol/L (98-107); Creatinine, Serum 1.46 mg/dL (0.55-1.02); EST Glomerular Filtration Rate 37 mL/min (>60); Est Glom Filt Rate - Afr Amer 45 mL/min (>60); Estimated Creatinine Clearance 37.51 ml/min; Glucose 171 mg/dL (74-106); Potassium 3.8 mmol/L (3.5-5.1); Sodium Level 137 mmol/L (136-145); Troponin-I HS 16 pg/mL (3.0-54.0)
[2024-03-09 23:13] VITALS: BP 139/107; PULSE 92; RESP 19; TEMP 36.6; O2SAT 97
[2024-03-10] VITALS: BP 99/67; PULSE 66; RESP 22; TEMP 36.6; O2SAT 98
[2024-03-10 00:58] LABS: Troponin-I HS 17 pg/mL (3.0-54.0)
[2024-03-10 01:00] VITALS: BP 133/88; PULSE 94; RESP 20; O2SAT 98
[2024-03-10 01:11] VITALS: BP 132/78; PULSE 97; RESP 16; TEMP 36.6; O2SAT 99
== END 2024-03-10 01:12 | disposition home or self-care (01) ==
PROVIDERS: Emergency Provider Emergency Medicine; PCP Student in an Organized Health Care Education/Training Program; Visit Provider Emergency Medicine
DX: J44.1 Chronic obstructive pulmonary disease with (acute) exacerbation (principal); E11.9 Type 2 diabetes mellitus without complications; Z87.891 Personal history of nicotine dependence; E78.00 Pure hypercholesterolemia, unspecified; I10 Essential (primary) hypertension; Z79.84 Long term (current) use of oral hypoglycemic drugs; Z79.890 Hormone replacement therapy; Z79.01 Long term (current) use of anticoagulants; Z79.899 Other long term (current) drug therapy; R06.02 Shortness of breath; R07.9 Chest pain, unspecified
CPT/HCPCS: 71045; 80048; 83880; 84484; 85025; 87631; 93005; 99285; A4216

== ENCOUNTER 2024-06-01 10:44 | Emergency (ER) | payer MEDICAID, MEDICARE, SELFPAY ==
[2024-06-01 10:45] VITALS: BP 96/78; PULSE 92; RESP 26; TEMP 36.8; O2SAT 100; BMI 49.9
[2024-06-01 11:06] VITALS: BP 135/44
--- NOTE | 2024-06-01 11:07 | EKG12_ITS ---
Test Reason : CONFUSION Blood Pressure : */* mmHG Vent. Rate : 90 BPM Atrial Rate : 90 BPM P-R Int : 174 ms QRS Dur : 98 ms QT Int : 388 ms P-R-T Axes : 70 -32 63 degrees QTcB Int : 474 ms Sinus rhythm with occasional Premature ventricular complexes Left axis deviation Low voltage QRS Cannot rule out Anterior infarct , age undetermined Abnormal ECG Confirmed by Jesse Small ([id number]), graphic editor DESTINY SAENZ ([id number]) on 06/05/2024 6:39:06 AM Referred By: Confirmed By: Jesse Small
--- NOTE | 2024-06-01 11:08 | EX.ED.DYSGE1 ---
HPI History of Present Illness Chief Complaint: Weakness Informant: patient Narrative Narrative: 73-year-old female presenting to the emergency room with weakness. Patient states she got up to use the bathroom the middle of the night and felt like her legs were shaky and she felt weak. She states that her home appraiser came this morning and she was very shaky when she tried to get out of the chair. Therefore EMS was called. She denies any fevers nausea vomiting diarrhea change in cough chest pains. She does note that occasionally her voice goes a week when she talks. She denies new medications. She states that she does not have any urinary symptoms but her doctor tells her that her urine is contaminated whenever she tries to give a specimen. [facility] Medical History Morbid obesity HTN (hypertension) Urinary, incontinence, stress female Tobacco abuse disorder Obesity Hypercholesteremia Peripheral vascular disease Palpitations Vertigo Osteoarthritis Diabetes mellitus type 2 in obese Paroxysmal atrial fibrillation Obstructive sleep apnea Home Medications ?Medication ?Instructions ?Recorded ?Last Taken ?Type aspirin 81 mg tablet,delayed 81 mg PO DAILY HEART HEALTH #90 10/25/20 01/26/23 Rx release tabs albuterol sulfate 90 mcg/actuation 2 puff inhalation Q4H SHORTNESS OF 01/27/23 01/26/23 History aerosol inhaler BREATH bumetanide 1 mg tablet 1 mg PO Q12H EDEMA 01/27/23 01/26/23 History calcium 600 mg (as 1 tab PO BID SUPPLEMENT 01/27/23 01/26/23 History carbonate)-vitamin D3 10 mcg (400 unit) tablet fluticasone fur. 100 mcg-umeclid 1 inh inhalation DAILY SHORTNESS 01/27/23 01/26/23 History 62.5 mcg-vilant 25 mcg OF BREATH/WHEEZING inhalat.powder (Trelegy Ellipta) pravastatin 40 mg tablet 40 mg PO QPM CHOLESTEROL 01/27/23 01/26/23 History metoprolol succinate 50 mg 50 mg PO DAILY blood pressure 08/28/23 Unknown History tablet,extended release 24 hr acetaminophen 500 mg tablet 1,000 mg (2 x 500 mg) PO Q8 #0 tabs 08/31/23 Unknown Rx apixaban 5 mg tablet (Eliquis) 5 mg PO BID 03/09/24 Unknown History empagliflozin 25 mg tablet 25 mg PO DAILY 03/09/24 Unknown History (Jardiance) gabapentin 400 mg capsule 400 mg PO Q12H 03/09/24 Unknown History levothyroxine 75 mcg tablet 75 mcg PO DAILY 03/09/24 Unknown History meloxicam 7.5 mg tablet 7.5 mg PO DAILY 03/09/24 Unknown History metformin 500 mg tablet,extended 500 mg PO DAILY 03/09/24 Unknown History release 24 hr mupirocin 2 % topical ointment 1 applic topical DAILY 03/09/24 Unknown History nystatin 100,000 unit/gram topical 1 applic topical BID PRN rash 03/09/24 Unknown History powder ([facility]) oxycodone-acetaminophen 5 mg-325 1 tab PO Q6H PRN pain 03/09/24 Unknown History mg tablet ropinirole 0.5 mg tablet 1 mg PO QHS 03/09/24 Unknown History venlafaxine 225 mg tablet,extended 225 mg PO DAILY 03/09/24 Unknown History release 24 hr vitamin B complex 1 tab PO DAILY 06/01/24 Unknown History Allergy/AdvReac Type Severity Reaction Status Date / Time ampicillin Allergy Hives Verified 06/01/24 10:49 codeine Allergy Hives Verified 06/01/24 10:49 meperidine HCl (From Demerol) Allergy Hives Verified 06/01/24 10:49 Penicillins (PCN) Allergy Hives Verified 06/01/24 10:49 propoxyphene napsylate (From Allergy Hives Verified 06/01/24 10:49 Darvocet-N) Family History Mother Heart disease Brother Heart disease Grandfather CVA (cerebral vascular accident) Grandmother Myocardial infarction Surgical History History of laparoscopic cholecystectomy (~11/2019) History of lumpectomy of both breasts History of cardiac catheterization History of knee replacement History of hysterectomy History of tubal ligation History of appendectomy Social History Smoking Status: Former smoker alcohol intake: never substance use type: does not use caffeine: Yes Type: coffee Number of servings: 5 ROS ROS ED ROS Narrative Generalized weakness and jittery Constitutional Constitutional ED: Denies chills or weight loss Eyes Eyes: Denies change in vision or diplopia ENT ENT ED: Denies ear pain, rhinorrhea or sore throat Cardiovascular Cardiovascular: Denies chest pain, orthopnea, palpitations or racing heartbeat Respiratory/Chest Respiratory/Chest: Denies cough, dyspnea or orthopnea Gastrointestinal Gastrointestinal: Denies abdominal pain, diarrhea, nausea or vomiting Genitourinary Genitourinary ED: Denies dysuria, hematuria or urinary frequency Musculoskeletal Musculoskeletal: Denies arthralgias or myalgias Integumentary Denies abscess or rash Neurologic Neurologic: Denies headache(s) or weakness Psychiatric Psychiatric: Denies anxiety, depression, suicidal ideation or suicidal thoughts Endocrine Endocrinology: Denies polydipsia, polyphagia or polyuria Allergic/Immunologic Allergic/Immunologic ED: Denies mouth swelling, tongue swelling or urticaria EXAM Physical Exam Const Vital Signs: 06/01/24 10:45 06/01/24 11:01 06/01/24 11:06 Temperature 98.2 F Temperature Source Oral Pulse Rate 92 Respiratory Rate 26 H Respiratory Effort Short of Breath Respiratory Pattern Irregular Blood Pressure 96/78 135/44 H Blood Pressure Mean 84 74 Pulse Ox 100 Oxygen Delivery Method Nasal Cannula Oxygen Flow Rate (L/min) 3 06/01/24 12:10 06/01/24 12:17 Temperature Temperature Source Pulse Rate 89 86 Respiratory Rate 16 18 Respiratory Effort Respiratory Pattern Blood Pressure 154/78 H 140/72 H Blood Pressure Mean 103 94 Pulse Ox 100 100 Oxygen Delivery Method Nasal Cannula Nasal Cannula Oxygen Flow Rate (L/min) 3 3 Positive well nourished, well developed and obese General Appearance ED: well developed and NAD Nutritional Appearance: obese HEENT Reports normocephalic, head/scalp atraumatic and moist mucous membranes Eyes PERRL and EOMs intact bilaterally Neck no lymphadenopathy, supple and no JVD Resp normal respiratory effort and clear to auscultation bilaterally Cardio regular rate, regular rhythm and no murmurs GI normal to inspection, nondistended, normoactive bowel sounds and non-tender Palpation: soft Back/Spine no CVA tenderness and normal ROM Extremity normal to inspection General Extremety ED: Negative for edema General Extremity: Negative for edema Neuro oriented x3 and CN's II-XII intact bilaterally Sensorium / Orientation: alert Motor Exam: strength 5/5 throughout Psych Psych Narrative: Patient is intermittently tearful when speaking. Mood & Affect: depressed and tearful Skin no rashes or lesions noted and no wounds MDM MDM MDM Narrative Medical decision making narrative: Differential diagnosis includes but not limited to UTI and dehydration hide abnormalities viral syndrome anxiety depression anemia Patient's EKG is nonischemic and sinus rhythm. My independent interpretation of the chest x-ray is no acute process. COVID influenza RSV swab is negative. Urinalysis which was a cath specimen showed no overt infection. Will be sent for culture. White count 10.8 hemoglobin 11.8 platelet count 339. BUN of 33 creatinine 1.63. Patient able to use the rollator to get down to the bathroom. I social work visit with the patient to discuss home care. She does have 5 days a week help coming into the home as well as supportive family. I do not have a clear explanation for the patient's intermittent shaky legs and weakness. Patient feels comfortable going home. I do not see an obvious reason to hospitalize her. Patient to follow-up with primary care return if worsening History & Record Review Discussion w/independent historian: Patient Lab Data Attestation: I reviewed the patient's lab results. Labs: Laboratory Results - last 24 hr 06/01/24 06/01/24 10:26 11:40 WBC 10.5 RBC 3.73 L Hgb 11.8 L Hct 36.6 L MCV 98.1 MCH 31.6 MCHC 32.2 RDW Std Deviation 49.4 H RDW Coeff of Penny 13.8 Plt Count 339 MPV 11.4 Immature Gran % (Auto) 0.500 Neut % (Auto) 64.8 Lymph % (Auto) 25.7 [place] % (Auto) 5.7 Eos % (Auto) 2.8 Baso % (Auto) 0.5 Absolute Neuts (auto) 6.8 Absolute Lymphs (auto) 2.69 Nucleated RBC % 0 Sodium 138 Potassium 3.4 Chloride 98 Carbon Dioxide 29.1 Anion Gap 11 BUN 33 H Creatinine 1.63 H Estim Creat Clear Calc 35.55 L Est GFR (MDRD) Non-Af 33 L BUN/Creatinine Ratio 20.4 H Glucose 211 H Calcium 9.2 Total Bilirubin < 0.15 AST 17 ALT 17 Alkaline Phosphatase 104 Total Protein 6.7 Albumin 3.7 Globulin 3.0 Albumin/Globulin Ratio 1.3 Urine Color Straw Urine Clarity Cloudy Urine pH 5.0 Ur Specific [place] 1.010 Urine Protein Negative Urine Glucose (UA) 1000 H Urine Ketones Negative Urine Occult Blood 10 H Urine Nitrite Positive H Urine Bilirubin Negative Urine Urobilinogen Normal Ur Leukocyte Esterase 100 H Urine RBC 0-5 SEEN Urine WBC 0-5 SEEN Ur Squamous Epith Cells 0 SEEN Ur Renal Epithelial Cell 0-5 SEEN Calcium Oxalate Crystal 1+ Urine Bacteria 1+ Urine Mucus 0 SEEN Radiography Diagnostic Testing: Clinical Impression(s) from Imaging Studies Chest X-Ray 06/01/24 11:55 IMPRESSION: No acute cardiopulmonary process. Reading Location: [facility] EKG Initial EKG: Attestation: I personally reviewed and interpreted this EKG as follows: Comments: Sinus rhythm with occasional PVC ventricular rate of 90 bpm Discharge Plan Triage Chief Complaint: Weakness ED Provider: Darius Ryan Dx/Rx/DC Orders Clinical Impression: Weakness, Hypertension, Chronic kidney disease Instructions: ED Weakness Uncertain Cause Prescriptions: No Action albuterol sulfate 90 mcg/actuation HFA aerosol inhaler 2 puff INHALATION Q4H bumetanide 1 mg tablet 1 mg PO Q12H calcium carbonate-vitamin D3 600 mg-10 mcg (400 unit) tablet 1 tab PO BID Trelegy Ellipta 100-62.5-25 mcg blister with device 1 inh INHALATION DAILY pravastatin 40 mg tablet 40 mg PO QPM metoprolol succinate 50 mg tablet extended release 24 hr 50 mg PO DAILY acetaminophen 500 mg Tablet 1,000 mg PO Q8 Qty: 0 0RF Eliquis 5 mg tablet 5 mg PO BID Jardiance 25 mg tablet 25 mg PO DAILY gabapentin 400 mg capsule 400 mg PO Q12H levothyroxine 75 mcg tablet 75 mcg PO DAILY meloxicam 7.5 mg tablet 7.5 mg PO DAILY oxycodone-acetaminophen 5-325 mg tablet 1 tab PO Q6H PRN (Reason: pain) ropinirole 0.5 mg tablet 1 mg PO QHS mupirocin 2 % ointment 1 applic topical DAILY metformin 500 mg tablet extended release 24 hr 500 mg PO DAILY venlafaxine 225 mg tablet extended release 24hr 225 mg PO DAILY nystatin [Nyamyc] 100,000 unit/gram Powder 1 applic topical BID PRN (Reason: rash) Protocol: *Topical Application Instructions APPLICATION INSTRUCTIONS: groin folds, under breasts vitamin B complex Tablet 1 tab PO DAILY aspirin 81 mg tablet,delayed release (DR/EC) 81 mg PO DAILY Qty: 90 3RF Primary Care Provider: Jesse Curran Referrals: Jesse Curran DO [Primary Care Provider] - 3-5 Days Print Language: Serbian Disposition Disposition: Home, Self Care
[2024-06-01 11:43] LABS: Absolute Lymphocyte Count 2.69 X10^3/uL (0.83-4.51); Absolute Neutrophil Count 6.8 X10^3/uL (2.0-7.7); Basophil# 0.05 X10^3/uL; Basophil% 0.5 % (0-1); Eosinophil# 0.29 X10^3/uL; Eosinophils% 2.8 % (0-5); Hematocrit 36.6 % (37-47); Hemoglobin 11.8 g/dL (12.0-15.0); Lymphocyte # 2.69 X10^3/ul (0.83-4.51); Lymphocyte % 25.7 % (19-41); Mean Corp Hgb Conc 32.2 g/dL (32-36); Mean Corpuscular Hgb 31.6 pg (27.0-32.0); Mean Corpuscular Volume 98.1 fL (81-99); Mean Platelet Vol. 11.4 fl (6.2-12.0); Monocyte% 5.7 % (0-10); NRBC Flagged by Analyzer 0 % (0-5); Neutrophil # 6.77 X10^3/uL (2.7-7.7); Neutrophil % 64.8 % (47-70); Platelet Count 339 K/mm3 (150-450); RBC Distribution Width CV 13.8 % (11.6-14.6); RBC Distribution Width SD 49.4 fl (35.1-43.9); Red Blood Count 3.73 M/mm3 (4.2-5.4); White Blood Count 10.5 K/mm3 (4.4-11.0)
[2024-06-01 11:50] LABS: Mucous, Urine 0 SEEN /hpf (<or=2+); Squamous Epithelial Cells - UA 0 SEEN /hpf (5-10)
[2024-06-01 11:52] LABS: ALB/GLOB Ratio 1.3 RATIO (0.9-2.4); AST(SGOT) 17 U/L (<=31); Alanine Aminotransfer ALT/SGPT 17 U/L (<=34); Albumin, Serum 3.7 g/dL (3.4-4.8); Alkaline Phosphatase 104 U/L (35-104); Anion Gap 11 (5-15); BUN 33 mg/dL (4-19); BUN/Creat Ratio 20.4 RATIO (10-20); Calcium,Total 9.2 mg/dL (7.6-11.0); Carbon Dioxide 29.1 mmol/L (21.0-32.0); Chloride 98 mmol/L (98-108); Creatinine, Serum 1.63 mg/dL (0.70-1.20); EST Glomerular Filtration Rate 33 (>60); Estimated Creatinine Clearance 35.55 ml/min (50-250); Glucose 211 mg/dL (70-99); Potassium 3.4 mmol/L (3.3-5.1); Protein, Total 6.7 g/dL (5.9-8.4); Sodium Level 138 mmol/L (133-145); Total Bilirubin < 0.15 mg/dL (0.00-1.30)
--- NOTE | 2024-06-01 11:55 | RAD_ITS ---
EXAM: XR Chest, 1 View CLINICAL INDICATION: WEAKNESS TECHNIQUE: Frontal view of the chest. COMPARISON: No relevant prior studies available. FINDINGS: LUNGS AND PLEURAL SPACES: Unremarkable. No consolidation. No pneumothorax. HEART: Unremarkable. No cardiomegaly. MEDIASTINUM: Unremarkable. Normal mediastinal contour. BONES/JOINTS: Unremarkable. No acute fracture. RAD/Chest 1 View (Portable) IMPRESSION: No acute cardiopulmonary process. Reading [id number]
[2024-06-01 12:10] VITALS: BP 154/78; PULSE 89; RESP 16; O2SAT 100
[2024-06-01 12:10] LABS: Color, Urine Straw (Yellow); Glucose, Dipstick 1000 mg/dl (Normal); Ketone-Dipstick Negative (Negative); Leukocyte Esterase-Dipstick 100 /ul (Negative); Nitrite-Dipstick Positive (Negative); Occult Blood-Urine 10 /ul (Negative); Protein-Dipstick Negative (Negative); Urine Bilirubin Dipstick Negative (Negative); Urine Clarity Cloudy (Clear); Urine Urobilinogen Normal (Normal)
[2024-06-01 12:17] VITALS: BP 140/72; PULSE 86; RESP 18; O2SAT 100
[2024-06-01 13:04] LABS: Calcium Oxalate Crystals Ur 1+ /hpf (<or=2+)
[2024-06-01 13:05] LABS: Red Blood Cells-Urine 0-5 SEEN /hpf (0-5); Renal Epithelial Cells 0-5 SEEN /hpf (0-5); White Blood Cells 0-5 SEEN /hpf (0-5)
[2024-06-01 13:06] LABS: Bacteria 1+ /hpf (None Seen)
[2024-06-01 14:23] VITALS: BP 137/59; PULSE 94; RESP 26; TEMP 36.2; O2SAT 95
--- NOTE | 2024-06-01 14:43 | CM.ED ---
Social Work SW introduced self to patient and explained role in the hospital. Patient consented to visit. Patient states that she lives with, what she calls her niece and nephew, altho they are not blood relatives. Patient stated that her husbands nephew had a girlfriend who had three children, an older daughter and then twins. Patient stated that the mother of the children became addicted to meth and would come in and out of the childrens lives. The children stayed at patients house and she ended up raising all three. Two of these children still live with patient, they are 23 and 25 years old. Patient reports that she has trouble ambulating long distances, that she uses a rollator and has to stop to take breaks. Patient also reports that she has been falling more and requires assistance to get up. Patient states her niece and nephew take care of things around the house for her such as cleaning, cooking and grocery shopping. Patient has two different aides that provide care 5 days a week. Patient states that she also has a life alert bracelet and is connected with [facility]. Patient denies concerns with safety, utilities or food. No concerns or resources needed. Kassandra Palmer, WARP DRAWER, STATISTICAL CONSULTANT
== END 2024-06-01 14:41 | disposition home or self-care (01) ==
PROVIDERS: Emergency Provider Emergency Medicine; PCP Student in an Organized Health Care Education/Training Program; Visit Provider Emergency Medicine
DX: R53.1 Weakness (principal); E11.22 Type 2 diabetes mellitus with diabetic chronic kidney disease; E78.00 Pure hypercholesterolemia, unspecified; N18.9 Chronic kidney disease, unspecified; Z87.891 Personal history of nicotine dependence; I12.9 Hypertensive chronic kidney disease with stage 1 through stage 4 chronic kidney disease, or unspecified chronic kidney disease; E66.9 Obesity, unspecified
CPT/HCPCS: 51701; 71045; 80053; 81001; 85025; 87077; 87086; 87088; 87631; 93005; 99285; P9612

== ENCOUNTER 2024-12-12 15:36 | Inpatient (IN) | payer MEDICARE, MEDICAID, SELFPAY ==
[2024-12-12] VITALS (7 sets, daily range): BP systolic 106–148; BP diastolic 65–92; PULSE 66–89; RESP 14–20; TEMP 36.5–36.6; O2SAT 96–100; BMI 40.8; BMI 38.7
--- NOTE | 2024-12-12 16:04 | CT_ITS ---
PROCEDURE: ABDOMEN/PELVIS W IV CONT ONLY 12/12/2024 REASON FOR EXAM: ABDOMINAL PAIN TECHNIQUE: Procedure Code: [id number] Modality: CT Procedure: ABDOMEN/PELVIS W IV CONT ONLY Coronal and Sagittal reconstruction series were provided. CONTRAST: Isovue 370 VOLUME: 75 mL One or more dose reduction techniques were used (e.g., Automated exposure control, adjustment of the mA and/or kV according to patient size, use of iterative reconstruction technique. RADIATION DOSE SUMMARY: CTDlvol: 9.97, 22.86 mGy DLP: 1055.97 mGycm COMPARISON: None. FINDINGS: LUNG BASES: No basilar airspace consolidation or pleural effusion. Calcified right lower lobe granuloma. Densely calcified mitral annulus. LIVER: Few hypodense lesions, the largest is 1.5 cm, likely cysts. GALLBLADDER: Prior cholecystectomy. BILE DUCTS: No ductal dilation. PANCREAS: Unremarkable. SPLEEN: Multiple calcified splenic granulomas. ADRENAL GLANDS: Unremarkable. KIDNEYS: The kidneys enhance symmetrically. Well-defined, rounded 2.1 (AP) x 2.0 (TR) x 2.3 (CC) cm exophytic mass in the anterior inferior left kidney, with central radiating low density areas. No infiltration into perinephric fat, collecting system or vessels. No regional lymphadenopathy. No hydronephrosis or hydroureter. STOMACH AND BOWEL: Several dilated small bowel loops, with no transition point seen. Air-fluid levels throughout the small bowel and in the colon to the splenic flexure. No perforation or signs of obstruction. No wall thickening. Colonic diverticulosis. No CT evidence of colitis or acute diverticulitis. APPENDIX: The appendix is not definitively seen. No pericecal inflammatory changes. RETRO/PERITONEUM: No free fluid. No free air. LYMPH NODES: No lymphadenopathy. PELVIC ORGANS: Unremarkable urinary bladder. Prior hysterectomy. No adnexal lesions. VASCULATURE: No aortic aneurysm. Scattered calcified atherosclerosis. ABDOMINAL WALL AND SOFT TISSUES: No acute abnormality. BONES: No fracture or suspicious osseous abnormality. Degenerative changes of the spine. Sacroiliac joint sclerosis bilaterally. CT/Abdomen/Pelvis W IV Cont ONLY IMPRESSION: 1. Left renal mass with central radiating hypodense areas, possibly an oncocyt jagruti with central scar or renal cell carcinoma with central necrosis. 2. Dilated small bowel loops with small and large bowel air-fluid levels. Fin dings likely represent acute enterocolitis, an ileus or other diarrheal illness. 3. Colonic diverticulosis without signs of diverticulitis. Reading Location: [id number]
--- NOTE | 2024-12-12 16:05 | EX.ED.DYSGE1 ---
HPI History of Present Illness Chief Complaint: Nausea/Vomiting/Diarrhea Detail of Chief Complaint: Vomiting, diarrhea, abdominal pain Informant: patient Narrative Narrative: Patient presents to the emergency department with vomiting and diarrhea started 3 days ago. She describes diffuse abdominal discomfort. Denies sick contacts. No recent antibiotics. She been feeling clammy and hot and cold at times but did not take her temperature. Denies eating any unusual or undercooked foods. Patient's had prior appendectomy and hysterectomy. Patient denies recent travel out of country [facility] Medical History Morbid obesity HTN (hypertension) Urinary, incontinence, stress female Tobacco abuse disorder Obesity Hypercholesteremia Peripheral vascular disease Palpitations Vertigo Osteoarthritis Diabetes mellitus type 2 in obese Paroxysmal atrial fibrillation Obstructive sleep apnea Home Medications Medication Instructions Recorded Last Taken Type aspirin 81 mg tablet,delayed 81 mg PO DAILY SEEC AB #90 10/25/20 01/26/23 Rx release tabs albuterol sulfate 90 mcg/actuation 2 puff inhalation Q4H SHORTNESS OF 01/27/23 01/26/23 History aerosol inhaler BREATH bumetanide 1 mg tablet 1 mg PO Q12H EDEMA 01/27/23 01/26/23 History calcium 600 mg (as 1 tab PO BID SUPPLEMENT 01/27/23 01/26/23 History carbonate)-vitamin D3 10 mcg (400 unit) tablet fluticasone fur. 100 mcg-umeclid 1 inh inhalation DAILY SHORTNESS 01/27/23 01/26/23 History 62.5 mcg-vilant 25 mcg OF BREATH/WHEEZING inhalat.powder (Trelegy Ellipta) pravastatin 40 mg tablet 40 mg PO QPM CHOLESTEROL 01/27/23 01/26/23 History metoprolol succinate 50 mg 50 mg PO DAILY blood pressure 08/28/23 Unknown History tablet,extended release 24 hr acetaminophen 500 mg tablet 1,000 mg (2 x 500 mg) PO Q8 #0 tabs 08/31/23 Unknown Rx apixaban 5 mg tablet (Eliquis) 5 mg PO BID 03/09/24 Unknown History empagliflozin 25 mg tablet 25 mg PO DAILY 03/09/24 Unknown History (Jardiance) gabapentin 400 mg capsule 400 mg PO TID 03/09/24 Unknown History levothyroxine 75 mcg tablet 75 mcg PO DAILY 03/09/24 Unknown History meloxicam 7.5 mg tablet 7.5 mg PO DAILY 03/09/24 Unknown History metformin 500 mg tablet,extended 500 mg PO DAILY 03/09/24 Unknown History release 24 hr oxycodone-acetaminophen 5 mg-325 1 tab PO Q6H PRN pain 03/09/24 Unknown History mg tablet ropinirole 0.5 mg tablet 1 mg PO QHS 03/09/24 Unknown History venlafaxine 225 mg tablet,extended 225 mg PO DAILY 03/09/24 Unknown History release 24 hr vitamin B complex 1 tab PO DAILY 06/01/24 Unknown History Allergy/AdvReac Type Severity Reaction Status Date / Time ampicillin Allergy Hives Verified 12/12/24 15:51 codeine Allergy Hives Verified 12/12/24 15:51 meperidine HCl (From Demerol) Allergy Hives Verified 12/12/24 15:51 Penicillins (PCN) Allergy Hives Verified 12/12/24 15:51 propoxyphene napsylate (From Allergy Hives Verified 12/12/24 15:51 Darvocet-N) Family History Mother Heart disease Brother Heart disease Grandfather CVA (cerebral vascular accident) Grandmother Myocardial infarction Surgical History History of laparoscopic cholecystectomy (~11/2019) History of lumpectomy of both breasts History of cardiac catheterization History of knee replacement History of hysterectomy History of tubal ligation History of appendectomy Social History Smoking Status: Current every day smoker tobacco type: cigarettes alcohol intake: never substance use type: does not use caffeine: Yes Type: coffee Number of servings: 5 ROS ROS ED Review of Systems ROS Unobtainable: other Constitutional Constitutional ED: Reports lethargy; Denies chills, fever(s), sweats or weight loss Eyes Eyes: Denies blurry vision, change in vision or diplopia ENT ENT ED: Denies rhinorrhea or sore throat Cardiovascular Cardiovascular: Denies chest pain, orthopnea or racing heartbeat Respiratory/Chest Respiratory/Chest: Denies cough, dyspnea, dyspnea on exertion, orthopnea or sputum Gastrointestinal Gastrointestinal: Reports abdominal pain, diarrhea, nausea and vomiting Genitourinary Genitourinary ED: Denies dysuria or urinary frequency Musculoskeletal Musculoskeletal: Denies arthralgias, back pain, myalgias or neck pain Integumentary Denies abscess, Abrasions or rash Neurologic Neurologic: Denies headache(s) or weakness Psychiatric Psychiatric: Denies anxiety, depression or suicidal thoughts Endocrine Endocrinology: Denies polydipsia, polyphagia or polyuria Hematologic/Lymphatic Hematologic/Lymphatic: Denies easy bleeding, easy bruising or lymphadenopathy Allergic/Immunologic Allergic/Immunologic ED: Denies mouth swelling, tongue swelling or urticaria EXAM Physical Exam Const Vital Signs: 12/12/24 15:39 12/12/24 17:36 12/12/24 19:03 Temperature 97.7 F L Temperature Source Oral Pulse Rate 89 85 84 Respiratory Rate 20 H Blood Pressure 148/92 H 119/76 106/71 Blood Pressure Mean 110 90 82 Pulse Ox 100 97 100 Oxygen Delivery Method Room Air Positive well nourished and well developed General Appearance ED: well developed and NAD HEENT Reports TM's clear and moist mucous membranes normocephalic and atraumatic; Negative for trauma or tenderness Tympanic Membrane ED: Yes TM's clear Eyes PERRL and EOMs intact bilaterally General Eye ED: Negative for pale conjunctiva or scleral icterus Neck no lymphadenopathy, supple and no JVD General: Negative for tenderness Chest Wall inspection of chest normal and palpation of chest normal Chest: Negative for tenderness Resp normal respiratory effort and clear to auscultation bilaterally Effort and Inspection: Negative for respiratory distress or pain with movement Auscultation: Negative for rhonchi, wheezes or diminished lung sounds Cardio regular rate, regular rhythm, S1 normal heart sound, S2 normal heart sound and no murmurs Peripheral Pulses: pulses 2+ throughout GI soft to palpation, non-distended and no masses; Negative for normal to inspection, nondistended, normoactive bowel sounds GI Narrative: Hyperactive bowel sounds. Mild diffuse tenderness throughout. No rebound or rigidity. No masses palpated. Morbidly obese. Back/Spine no CVA tenderness and no thoracic nor lumbar tenderness Extremity normal to inspection General Extremety ED: Negative for edema General Extremity: Negative for edema Neuro oriented x3, CN's II-XII intact bilaterally, no sensory deficits noted and gait normal Sensorium / Orientation: awake, alert, oriented to person, oriented to place and oriented to time Motor Exam: strength 5/5 throughout and strength abnormal Psych mental status grossly normal Skin no rashes or lesions noted and no wounds MDM MDM MDM Narrative Medical decision making narrative: Patient presents to the emergency department with vomiting and diarrhea. Complaining of abdominal pain. IV line established. Medicated with Zofran and Bentyl. She was given a liter Mustain fluid bolus. CBC with differential obtained showed white count 14.2 with hemoglobin 15 platelet count of 336. Chemistries unremarkable. BUN 26 and creatinine 1.61. Lactate normal at 1.5. LFTs normal. Urinalysis unremarkable. CT scan of the abdomen pelvis shows a left renal mass with central radiating hypodense areas possibly oncocytoma with central scar renal cell carcinoma with central necrosis. Patient had dilated bowel loops with small and large bowel air-fluid levels findings likely represent enterocolitis. Patient continues to feel nauseated. She went to the bathroom and was very lightheaded and dizzy after. Will discuss with hospitalist to evaluate for admission for hydration and symptom control. She will need further evaluation for the left renal mass. Lab Data Attestation: I reviewed the patient's lab results. Labs: Laboratory Results - last 24 hr 12/12/24 12/12/24 12/12/24 16:02 16:23 16:33 WBC 14.2 H RBC 4.93 Hgb 15.1 H Hct 46.1 MCV 93.5 MCH 30.6 MCHC 32.8 RDW Std Deviation 48.7 H RDW Coeff of Penny 14.2 Plt Count 336 MPV 12.4 H Immature Gran % (Auto) 0.500 Neut % (Auto) 74.2 H Lymph % (Auto) 16.1 L [place] % (Auto) 8.0 Eos % (Auto) 0.5 Baso % (Auto) 0.7 Absolute Neuts (auto) 10.5 H Absolute Lymphs (auto) 2.28 Nucleated RBC % 0 Differential Comment SCANNED Platelet Estimate ADEQUATE Sodium 138 Potassium 3.4 Chloride 94 L Carbon Dioxide 30.1 Anion Gap 14 BUN 26 H Creatinine 1.61 H Estim Creat Clear Calc 31.43 L Est GFR (MDRD) Non-Af 34 L BUN/Creatinine Ratio 16.0 Glucose 152 H Lactic Acid 1.5 Calcium 10.0 Total Bilirubin 0.49 AST 23 ALT 22 Alkaline Phosphatase 122 H Total Protein 7.8 Albumin 4.2 Globulin 3.6 Albumin/Globulin Ratio 1.2 Lipase 15 Urine Color Yellow Urine Clarity Sl. Cloudy Urine pH 6.0 Ur Specific [place] 1.010 Urine Protein 15 H Urine Glucose (UA) 1000 H Urine Ketones 5 H Urine Occult Blood Negative Urine Nitrite Negative Urine Bilirubin Negative Urine Urobilinogen Normal Ur Leukocyte Esterase Negative Radiography Diagnostic Testing: Clinical Impression(s) from Imaging Studies Abdomen/Pelvis CT 12/12/24 16:04 IMPRESSION: 1. Left renal mass with central radiating hypodense areas, possibly an oncocytoma with central scar or renal cell carcinoma with central necrosis. 2. Dilated small bowel loops with small and large bowel air-fluid levels. Findings likely represent acute enterocolitis, an ileus or other diarrheal illness. 3. Colonic diverticulosis without signs of diverticulitis. Reading Location: [id number] Discharge Plan Dx/Rx/DC Orders Clinical Impression: Viral gastroenteritis, Left renal mass, History of atrial fibrillation Disposition Disposition: Acute Care Hospital [facility]
[2024-12-12] MEDS: 0.9% Normal Saline (1000mL) 1,000 ML 999 ML IV (16:14)
[2024-12-12 16:34] LABS: Hematocrit 46.1 % (37-47); Hemoglobin 15.1 g/dL (12.0-15.0); Immature Granulocytes Count 0.070 X10^3/uL (0.0-0.0); Mean Corp Hgb Conc 32.8 g/dL (32-36); Mean Corpuscular Volume 93.5 fL (81-99); Mean Platelet Vol. 12.4 fl (6.2-12.0); NRBC Flagged by Analyzer 0 % (0-5); POSITIVE MORPHOLOGY YES; Platelet Count 336 K/mm3 (150-450); RBC Distribution Width CV 14.2 % (11.6-14.6); RBC Distribution Width SD 48.7 fl (35.1-43.9); Red Blood Count 4.93 M/mm3 (4.2-5.4); White Blood Count 14.2 K/mm3 (4.4-11.0)
[2024-12-12 16:37] LABS: Mucous, Urine 0 SEEN /hpf (<or=2+)
[2024-12-12 16:43] LABS: Differential Indicated SCAN CRITERIA MET
[2024-12-12 17:00] LABS: AST(SGOT) 23 U/L (<=31); Alanine Aminotransfer ALT/SGPT 22 U/L (<=34); Albumin, Serum 4.2 g/dL (3.4-4.8); Alkaline Phosphatase 122 U/L (35-104); Anion Gap 14 (5-15); BUN 26 mg/dL (4-19); BUN/Creat Ratio 16.0 RATIO (10-20); Calcium,Total 10.0 mg/dL (7.6-11.0); Carbon Dioxide 30.1 mmol/L (21.0-32.0); Chloride 94 mmol/L (98-108); Estimated Creatinine Clearance 31.43 ml/min (50-250); Globulin 3.6 g/dL (2.2-4.2); Glucose 152 mg/dL (70-99); Lipase 15 U/L (13-75); Potassium 3.4 mmol/L (3.3-5.1)
--- OUTSIDE RECORDS SUMMARY | 2024-12-12 17:01 | XMS RPT_ITS | CCD ---
Author Organization [facility] Care Team Providers Care Headrig Sawyer Name Role Phone Nicola Johnson Primary Care Provider RICHIE HEREDIA DO Primary Care Physician [phone] Giovanna LANDON MD, Michael Primary Care Provider [phone] Giovanna LANDON MD, Michael Primary Care Provider [phone] RICHIE HEREDIA IV Referring Unavailable RICHIE HEREDIA IV Primary Care Unavailable MARY THOMAS Attending Unavailable Dr. Richie Heredia Primary Care Provider Dr. Mejia Vega Attending Provider Dr. Richie Heredia Primary Care Provider Dr. Darius Ryan Referring Provider Dr. Darius Ryan Emergency Provider Dr. Junior Marquez Other Provider Dr. Remy Guido Other Provider Dr. Mora Live Other Provider Unavailable Dr. Dominic Cantu Other Provider Unavailab Castro RIBBON WINDER, RIBBON WINDER-C Maeve Other Provider Dr. Maximilian Kitchen Attending Provider Unavailable Dr. Michael Saravia Other Provider Dr. Maximilian Kitchen Admit Provider Unavailable Dr. Maximilian Kitchen Other Provider Unavailable RUPA Rodriguez Attending Provider Dr. Michael Saravia Attending Provider Dr. Richie Heredia Primary Care Provider Dr. Darius Ryan Referring Provider HALKO DO, RICHIE Attending Unavailable HALKO DO, RICHIE Primary Care Unavailable HALKO DO, RICHIE Attending Unavailable HALKO DO, RICHIE Primary Care Unavailable HALKO DO, RICHIE Attending Unavailable HALKO DO, RICHIE Primary Care Unavailable HALKO DO, RICHIE Attending Unavailable HALKO DO, RICHIE Primary Care Unavailable HALKO DO, RICHIE Attending Unavailable HALKO DO, RICHIE Primary Care Unavailable HALKO DO, RICHIE Attending Unavailable HALKO DO, RICHIE Primary Care Unavailable HALKO DO, RICHIE Attending Unavailable HALKO DO, RICHIE Primary Care Unavailable HALKO DO, RICHIE Attending Unavailable HALKO DO, RICHIE Primary Care Unavailable HALKO DO, RICHIE Attending Unavailable HALKO DO, RICHIE Primary Care Unavailable Halko DO, Dr. Molina Primary Care Provider [phone] Olena DAVISON, Dr. Gandara Attending Provider Dr. Juliocesar Hyatt DO Emergency Provider Hunter Ryan MD Attending Provider Hunter Ryan MD Emergency Provider [phone] Darius Ryan DO Emergency Provider [phone] Halko, Richie Primary Care Unavailable Halko, Richie Referring Unavailable Halko, Richie Attending Unavailable Halko, Richie Primary Care Unavailable Ryder Green Attending Unavailable Halko, Richie Primary Care Unavailable Maximilian Kitchen Attending Unavailable Maximilian Kitchen Consulting Unavailable KittoMaximilian jorgensen Admitting Unavailable Halko, Richie Primary Care Unavailable Kittoe, Maximilian Admitting Unavailable Kittoe, Maximilian Consulting Unavailable Verduzco, Achintya Attending Unavailable Verduzco, Achintya Consulting Unavailable Wilson, Jaya Attending Unavailable Wilson, Jaya Consulting Unavailable Mejia Grissom Attending Unavailable Mejia Grissom Consulting Unavailable Halko, Richie Primary Care Unavailable Mejia Vega Attending Unavailable Wilson, Jaya Referring Unavailable Halko, Richie Primary Care Unavailable Small, Richie Referring Unavailable Small, Richie Attending Unavailable Halko, Richie Primary Care Unavailable Alberto Williamson Attending Unavailable Halko, Richie Primary Care Unavailable Darius Ryan Attending Unavailable Halko, Richie Primary Care Unavailable Juliocesar Hyatt Attending Unavailabl e Halko, Richie Primary Care Unavailable Shelby, Hunter Attending Unavailable Halko, Richie Primary Care Unavailable Hunter Ryan Attending Unavailable Halko, Richie Primary Care Unavailable Maximilian Kitchen Consulting Unavailable Mejia Grissom Attending Unavailable Maximilian Kitchen Admitting Unavailable Verduzco, Achintya Consulting Unavailable Wilson, Jaya Consulting Unavailable HALKO, RICHIE Attending Unavailable HALKO, RICHIE Primary Care Unavailable HALKO, RICHIE Primary Care Unavailable HALKO, RICHIE Attending Unavailable HALKO, RICHIE Primary Care Unavailable HALKO, RICHIE Attending Unavailable HALKO, RICHIE Primary Care Unavailable HALKO, RICHIE Attending Unavailable FLORENCIA CALLAWAY MD Attending Unavailable HALKO, RICHIE Primary Care Unavailable HALKO, RICHIE Primary Care Unavailable HALKO, RICHIE Attending Unavailable HALKO, RICHIE Attending Unavailable HALKO, RICHIE Primary Care Unavailable HALKO, RICHIE Attending Unavailable HALKO, RICHIE Primary Care Unavailable Allergies Allergy Classification Reported Allergen(s) Allergy Type Date of Onset Reaction(s) Facility (17 sources) Meperidine; Translations: [MEPERIDINE] Drug Allergy 7 Burning (qualifier value) [facility] (16 sources) Penicillins; Translations: [PENICILLINS] Propensity to adverse reactions 7 [facility] (6 sources) Propoxyphene; Translations: [PROPOXYPHENE HCL] Drug Allergy 7 [facility] (6 sources) Propoxyphene N-Acetaminophen; Translations: [PROPOXYPHENE N-ACETAMINOPHEN] Propensity to adverse reactions 7 [facility] (20 sources) Ampicillin; Translations: [ampicillin] Drug Allergy 2 Unknown, [facility] (20 sources) Penicillin; Translations: [penicillin] Drug Allergy Unknown [facility] (20 sources) Propoxyphene; Translations: [propoxyphene] Drug Allergy Unknown [facility] (9 sources) Codeine Drug Allergy 2 [facility] (10 sources) Meperidine; Translations: [meperidine HCl] Drug Allergy 2 [facility] (10 sources) Propoxyphene; Translations: [propoxyphene napsylate] Drug Allergy 2 [facility] (11 sources) cilostazol; Translations: [cilostazol] Drug Allergy dizziness, peripheral edema [facility] (1 source) Ampicillin Drug Allergy 5 [facility] (1 source) Codeine Drug Allergy 5 [facility] Medications Current Medications Medication Drug Class(es) Dates Sig (Normalized) Sig (Original) ACCU-CHEK MAURISIO PLUS TEST STRP (17 sources) Start: 10-25-2018 ACCU-CHEK MAURISIO PLUS TEST STRP ACCU-CHEK MAUIRSIO PLUS TEST STRP, See Instructions, one daily, 0 Refill(s) Start Date: 10/25/18 Status: Ordered Repeat number: 1 Start: 10-25-2018 ACCU-CHEK MISAEL A PLUS TEST STRP ACCU-CHEK MAURISIO PLUS TEST STRP, See Instructions, one daily, 0 Refill(s) Start Date: 10/25/18 Status: Ordered acetaminophen 500 mg oral ta blet (3 sources) Start: 10-28-2023 End: 04-25-2024 acetaminophen 500 mg oral tablet Dose : 500 mg = 1 tab(s), Oral, q8h, PRN as needed for pain, X 90 day(s), # 270 tab(s), 1 Refill(s), 04/25/24 11:57:00 AM EST, Pharmacy: [facility], 155, cm, 10/28/23 11:31:00 EDT, Height, kg, 10/28/23 11:19:00 EDT, Dosing Weight Start Date: 10/28/23 Stop Date: 04/25/24 Status: Ordered Start: 08-31-2023 take 2 tablets by mo [facility] every eight hours Acetaminophen 500 mg Tablet Active 1000 mg PO EVERY 8 HOURS 0 August 31, 2023 12:00am acetaminophen 325 mg / oxyCODONE hydrochloride 5 mg oral tablet (20 sources) Opioid Agonist Start: 08-07-2024 End: 09-06-2024 take 1 tablet by mouth every four hours acetaminophen-oxyCODONE 325 mg-5 mg oral tablet Dose = 1 tab(s), Oral, q4h, fill on or after 08/07/2024; new pharmacy, [facility] closing per patient, # 180 tab(s), 0 Refill(s), Pharmacy: [id number], Low back pain with sciatica Inflammatory polyarthropathy, 150.3, cm, 08/07/24 15:40:00 EDT, Height, 104.8, kg, 08/07/24 15:40:00 EDT, Dosing Weight Start Date: 08/07/24 Stop Date: 09/06/24 Status: Ordered Quantity: 180.0 Unit: tab(s) Repeat number: 1 Indications: Inflammatory polyarthropathy; Lumbago with sciatica, unspecified side; Start: 03-09-2024 Oxycodone-Acet aminophen 5-325 mg tablet Active 1 {tbl} PO EVERY 6 HOURS as needed for pain March 09, 2024 1:00am Start: 11-25-2023 End: 12-25-2023 take 1 tablet by mouth every eight hours acetaminophen-oxyCODONE 325 mg-5 mg oral tablet Dose = 1 tab(s), Oral, q8h, to fill on or after 11/26/2023, # 90 tab(s), 0 Refill(s), [facility]acy: [facility] #[id number], Low back pain with sciatica Inflammatory polyarthropathy, 155, cm, 11/25/23 8:45:00 EDT, Height, 98.9, kg, 11/25/23 8:45:00 EDT, Dosing Weight Start Date: 11/25/23 Stop Date: 12/25/23 Status: Ordered Start: 08-12-2023 End: 09-11-2023 take 1 tablet by mouth every six hours acetaminophen-oxyCODONE 325 mg-5 mg oral tablet Dose = 1 tab(s), Oral, q6hr, to fill on or after 08/20/2023, # 120 tab(s), 0 Refill(s), Pharmacy: [facility], Low back pain with sciatica Inflammatory polyarthropathy, 155, cm, 08/12/23 13:54:00 EDT, Height, 107.2, kg, 08/12/23 13:54:00 EDT, Dosing Weight Start Date: 08/12/23 Stop Date: 09/11/23 Status: Ordered Start: 03-19-2023 End: 04-18-2023 take 1 tablet by mouth every six hours acetaminophen-oxyCODONE 325 mg-5 mg oral tablet Dose = 1 tab(s), Oral, q6hr, to fill on or after 03/20/2023, # 120 tab(s), 0 Refill(s), [facility]acy: [facility] #[id number], Low back pain with sciatica Inflammatory polyarthropathy, 155, cm, 02/05/23 10:24:00 EST, Height, 105.3, kg, 03/19/23 15:04:00 EST, Dosing Weight Start Date: 03/19/23 Stop Date: 04/18/23 Status: Ordered Start: 10-14-2022 End: 11-13-2022 take 1 tablet by mouth every six hours acetaminophen-oxyCODONE 325 mg-5 mg oral tablet Dose = 1 tab(s), Oral, q6hr, to fill on or after 10/25/22, # 120 tab(s), 0 Refill(s), [facility]: [facility] #[id number], Low back pain with sciatica Inflammatory polyarthropathy, 155, cm, 10/14/22 9:25:00 EDT, Height, 120.7, kg, 10/14/22 9:25:00 EDT, Dosing Weight Start Date: 10/14/22 Stop Date: 11/13/22 Status: Ordered Start: 03-27-2022 End: 05-23-2022 take 1 tablet by mouth every six hours acetaminophen-oxyCODONE 325 mg-5 mg oral tablet Dose = 1 tab(s), Oral, q6hr, to fill on or after 04/29/2022, # 120 tab(s), 0 Refill(s), [facility]: [facility] #[id number], Low back pain with sciatica Inflammatory polyarthropathy, 156, cm, 04/23/22 15:20:00 EST, Height, 120.9, kg, 04/23/22 15:20:00 EST, Dosi... Start Date: 04/23/22 Stop Date: 05/23/22 Status: Ordered Start: 08-13-2021 End: 09-12-2021 take 1 tablet by mouth every six hours Percocet 5 mg-325 mg oral tablet Dose = 1 tab(s), Oral, q6hr, to fill on or after 08/06/21; patient switching pharmacies for all meds, X 30 day(s), # 120 tab(s), 0 Refill(s), [facility]acy: [facility], Low back pain with sciatica, 152, cm, 07/11/21 15:19:00 EDT, Height, 103... Start Date: 08/13/21 Stop Date: 09/12/21 Status: Ordered Start: 04-02-2016 End: 08-31-2023 take 1 tablet by mouth every six hours Percocet 5 mg-325 mg oral tablet Dose = 1 tab(s), Oral, q6hr, to be filled on or after 05/28/21, X 30 day(s), # 120 tab(s), 0 Refill(s), Pharmacy: [facility]/pharmacy #[id number], Inflammatory polyarthropathy Chronic low back pain, 155.4, cm, 04/30/21 13:11:00 EST, Height, 106.6, kg, 05/19/21 15:... Start Date: 05/19/21 Stop Date: 06/18/21 Status: Ordered Start: 04-02-2016 take 1 tablet by kee th every six hours Oxycodone-Acetaminophen Active 1 TABLET PO EVERY 6 HOURS April 02, 2016 12:00am amitriptyline hydrochloride 25 mg oral tablet (2 sources) Tricyclic Antidepressant Start: 08-12-2023 End: 11-10-2023 amitriptyline 25 mg oral tablet Dose : 25 mg = 1 tab(s), Oral, qHS, new dose, # 90 tab(s), 0 Refill(s), Pharmacy: [facility], 155, cm, 08/12/23 13:54:00 EDT, Height, kg, 08/12/23 13:54:00 EDT, Dosing Weight Start Date: 08/12/23 Stop Date: 11/10/23 Status: Ordered Start: 04-12-2023 End: 05-12-2023 amitriptyline 25 mg oral tab let Dose : 25 mg = 1 tab(s), Oral, qHS, # 30 tab(s), 0 Refill(s), Pharmacy: [facility] #[id number], 155, cm, 02/05/23 10:24:00 EST, Height, kg, 04/12/23 15:40:00 EST, Dosing Weight Start Date: 04/12/23 Stop Date: 05/12/23 Status: Ordered apixaban 5 mg oral tablet (6 sources) Factor Xa Inhibitor Start: 03-09-2024 Eliquis 5 mg oral tablet Dose : 5 mg = 1 tab(s), Oral, BID, dx I48.91, # 180 tab(s), 1 Refill(s), Pharmacy: [facility], 155, cm, 03/30/24 15:26:00 EST, Height, 104.1, kg, 03/30/24 15:26:00 EST, Dosing Weight Start Date: 04/25/24 Status: Ordered Quantity: 180.0 Unit: tab(s) Repeat number: 2 Start: 10-28-2023 Eliquis 5 mg o ral tablet Dose : 5 mg = 1 tab(s), Oral, BID, dx I48.91, # 180 tab(s), 1 Refill(s), Pharmacy: [facility], 155, cm, 10/28/23 11:31:00 EDT, Height, 99.5, kg, 10/28/23 11:19:00 EDT, Dosing Weight Start Date: 10/28/23 Status: Ordered Start: 06-10-2023 Eliquis 5 mg o ral tablet Dose : 5 mg = 1 tab(s), Oral, BID, dx I48.91, # 180 tab(s), 1 Refill(s), Pharmacy: [facility] #[id number], 155, cm, 06/10/23 16:49:00 EDT, Height, 108, kg, 06/10/23 16:49:00 EDT, Dosing Weight Start Date: 06/10/23 Status: Ordered aspirin 81 mg delayed release oral tablet (20 sources) Platelet Aggregation Inhibitor, Nonsteroidal Anti-inflammatory Drug Start: 04-13-2024 aspirin 81 mg ora l delayed release tablet Dose : 81 mg = 1 tab(s), Oral, Daily, # 90 tab(s), 1 Refill(s), Pharmacy: [facility], 155, cm, 03/30/24 15:26:00 EST, Height, kg, 03/30/24 15:26:00 EST, Dosing Weight Start Date: 04/13/24 Status: Ordered Quantity: 90.0 Unit: tab(s) Repeat number: 2 Start: 10-28-2023 aspirin 81 mg oral delayed release tablet Dose : 81 mg = 1 tab(s), Oral, Daily, # 90 tab(s), 1 Refill(s), Pharmacy: [facility], 155, cm, 10/28/23 11:31:00 EDT, Height, kg, 10/28/23 11:19:00 EDT, Dosing Weight Start Date: 10/28/23 Status: Ordered Start: 05-22-2018 End: 07-07-2018 take 1 tablet by mouth once daily Aspirin 325 MG tablet Discontinued 325 mg PO DAILY@0800 May 22, 2018 12:00am July 07, 2018 3:14pm Start: 05-17-2006 End: 10-25-2020 take 1 tablet by mouth once daily Aspirin 81 mg tablet,delayed release (DR/EC) Discontinued 81 mg PO DAILY October 24, 2019 10:09am November 15, 2019 9:44pm Comment on above: Take one(1) tablet d sharee. Aspirin Enteric Coated 81 mg oral delayed release tablet (9 sources) Start: 10-25-2018 Aspirin Enteric Coated 81 mg oral delayed release tablet Dose : 81 mg = 1 tab(s), Oral, qDay, 0 Refill(s) Start Date: 10/25/18 Status: Ordered azithromycin 250 mg oral tablet (1 source) Macrolide Antimicrobial Start: 03-27-2022 End: 06-25-2022 azithromycin 250 mg oral tablet Dose : 250 mg = 1 tab(s), Oral, Every other day, start after completing Zpak, X 90 day(s), # 45 tab(s), 0 Refill(s), 06/25/22 16:52:00 EDT, [facility]acy: [facility] #[id number], 156, cm, 01/02/22 13:01:00 EST, Height, 118 Start Date: 03/27/22 Stop Date: 06/25/22 Status: Ordered bumetanide 1 mg oral tablet (12 sources) Loop Diuretic Start: 01-27-2023 bumetanide 1 mg oral tablet Dose : 1 mg = 1 tab(s), Oral, BID, # 180 tab(s), 1 Refill(s), Pharmacy: [facility], 155, cm, 03/30/24 15:26:00 EST, Height, kg, 03/30/24 15:26:00 EST, Dosing Weight Start Date: 04/25/24 Status: Ordered Quantity: 180.0 Unit: tab(s) Repeat number: 2 Start: 07-27-2022 End: 04-25-2024 bumetanide 1 mg oral tablet Dose : 1 mg = 1 tab(s), Oral, BID, # 180 tab(s), 1 Refill(s), Pharmacy: [facility], 155, cm, 10/28/23 11:31:00 EDT, Height, kg, 10/28/23 11:19:00 EDT, Dosing Weight Start Date: 10/28/23 Stop Date: 04/25/24 Status: Ordered buPROPion hydrochloride 75 mg oral tablet (15 sources) Aminoketone Start: 07-03-2024 buPROPion 75 m g oral tablet Dose : 75 mg = 1 tab(s), Oral, BID, am and afternoon, # 60 tab(s), 0 Refill(s), [facility]acy: [facility] #[id number], 150.3, cm, 07/03/24 14:25:00 EDT, Height, kg, 07/03/24 14:25:00 EDT, Dosing Weight Start Date: 07/03/24 Status: Ordered Quantity: 60.0 Unit: tab(s) Repeat number: 1 Start: 01-27-2023 End: 06-01-2024 take 1 tablet by mouth once daily Bupropion Hcl 150 mg tablet extended release 24 hr Discontinued 150 mg PO DAILY January 27, 2023 1:00am June 01, 2024 10:54am Start: 10-14-2022 take 1 tablet by kee th every hour, then take 1 tablet by mouth every twenty-four hours Wellbutrin XL 150 mg/24 hours oral tablet, extended release Dose : 150 mg = 1 tab(s), Oral, q24h, # 30 tab(s), 1 Refill(s), Pharmacy: [facility] #[id number], 155, cm, 10/14/22 9:25:00 EDT, Height, kg, 10/14/22 9:25:00 EDT, Dosing Weight Start Date: 10/14/22 Status: Ordered Start: 06-06-2021 End: 01-27-2023 take 1 tablet by mouth twice daily Bupropion Hcl 150 mg tablet sustained-release 12 hr Discontinued 150 mg PO TWICE A DAY June 06, 2021 12:00am January 27, 2023 11:18am calcium carbonate 1500 mg / cholecalciferol 0.01 mg oral tablet (15 sources) Vitamin D Start: 01-27-2023 take 1 tablet by mouth twice daily Calcium Carbonate-Vitamin D3 Active 1 TABLET PO TWICE A DAY January 27, 2023 12:00am Start: 02-25-2022 End: 09-26-2024 take 1 tablet by mouth twice daily calcium (as carbonate)-vitamin D 600 mg-10 mcg (400 intl units) oral tablet Dose = 1 tab(s), Oral, BID, # 180 tab(s), 1 Refill(s), Pharmacy: [facility] #[id number], 155, cm, 03/30/24 15:26:00 EST, Height, kg, 03/30/24 15:26:00 EST, Dosing Weight Start Date: 03/30/24 Stop Date: 09/26/24 Status: Ordered Quantity: 180.0 Unit: tab(s) Repeat number: 2 cefdinir 300 mg oral capsule (9 sources) Cephalosporin Antibacterial Start: 08-10-2024 End: 08-15-2024 cefdinir 300 mg oral capsule Dose : 300 mg = 1 cap(s), Oral, q12h, stop bactrim, X 5 day(s), # 10 cap(s), 0 Refill(s), 08/15/24 8:04:00 AM EDT, Pharmacy: [facility], 150.3, cm, 08/07/24 15:40:00 EDT, Height, 104.8, kg, 08/07/24 15:40:00 EDT, Dosing Weight Start Date: 08/10/24 Stop Date: 08/15/24 Status: Ordered Quantity: 10.0 Unit: cap(s) Repeat number: 1 Start: 11-25-2023 End: 12-05-2023 cefdinir 300 mg oral capsule Dose : 300 mg = 1 cap(s), Oral, q12h, X 10 day(s), # 20 cap(s), 0 Refill(s), 12/05/23 9:18:00 AM EDT, Pharmacy: [facility] #[id number], 155, cm, 11/25/23 8:45:00 EDT, Height, 98.9, kg, 11/25/23 8:45:00 EDT, Dosing Weight Start Date: 11/25/23 Stop Date: 12/05/23 Status: Ordered Start: 01-30-2023 End: 08-25-2023 take 1 capsule by mouth twice daily Cefdinir 300 mg capsule Discontinued 300 mg PO TWICE A DAY January 30, 2023 1:00am August 25, 2023 7:34pm cholecalciferol 0.125 mg oral capsule (5 sources) Vitamin D Start: 06-10-2023 End: 09-26-2024 cholecalciferol 125 mcg (5000 intl units) oral capsule Dose : 125 mcg = 1 cap(s), Oral, qDay, # 90 cap(s), 1 Refill(s), Pharmacy: [facility] #[id number], 155, cm, 03/30/24 15:26:00 EST, Height, kg, 03/30/24 15:26:00 EST, Dosing Weight Start Date: 03/30/24 Stop Date: 09/26/24 Status: Ordered Quantity: 90.0 Unit: cap(s) Repeat number: 2 DME MISCellaneous (20 sources) Start: 08-07-2024 DME MISCellane ous See Instructions, dx G89.4, J46.11, J43.9, M54.4, M79.7 dispense one standard wheelchair., # 1 EA, 0 Refill(s), Chronic pain disorder Bullous emphysema, 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 dx M54.4, M79.7, G89.4, # 1 EA, 0 Refill(s) Start Date: 03/30/24 Status: Ordered Quantity: 1.0 Unit: EA Repeat number: 1 Start: 03-30-2024 DME MISCellane ous See Instructions, dx J44.9, R53.81, R26.81; dispense one power scooter, # 1 EA, 0 Refill(s), Debility Unsteady gait Start Date: 03/30/24 Status: Ordered Quantity: 1.0 Unit: EA Repeat number: 1 Indications: Unsteadiness on feet; Other malaise; Start: 03-30-2024 DME MISCellane ous See Instructions, dx: M51.36, J44.9, R09.02 dispense one gel pressure relief mattress overlay, 1 EA, 0 Refill(s)., # 1 EA, 0 Refill(s), 104.1 Start Date: 03/30/24 Status: Ordered Quantity: 1.0 Unit: EA Repeat number: 1 Start: 03-01-2024 DME MISCellane ous See Instructions, dispense one lift chair with massage capabilities; dx M54.4, M79.7, G89.4., # 1 EA, 0 Refill(s) Start Date: 03/01/24 Status: Ordered Quantity: 1.0 Unit: EA Repeat number: 1 Start: 12-29-2023 DME MISCellane ous See Instructions, dx J43.9, J46.11, M51.36 dispense one wheeled walker with seat, # 1 EA, 0 Refill(s), COPD with emphysema, 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 Start Date: 12/29/23 Status: Ordered Quantity: 1.0 Unit: EA Repeat number: 1 Indications: Emphysema, unspecified; Start: 11-25-2023 DME MISCellane ous See Instructions, dispense one motorized scooter dx: G25.71, M51.36, E11.49, # 1 EA, 0 Refill(s), DDD (degenerative disc disease), lumbar Diabetic neuropathy, 98.9 Start Date: 11/25/23 Status: Ordered Quantity: 1.0 Unit: EA Repeat number: 1 Indications: Other intervertebral disc degeneration, lumbar region; Type 2 diabetes mellitus with diabetic neuropathy, unspecified; Start: 11-25-2023 DME MISCellane ous See Instructions, dispense one motorized scooter dx: G25.71, M51.36, E11.49, # 1 EA, 0 Refill(s), DDD (degenerative disc disease), lumbar Diabetic neuropathy, 98.9 Start Date: 11/25/23 Status: Ordered Start: 03-01-2023 DME MISCellane ous See Instructions, dispense one lift chair; dx M54.4, M79.7, G89.4., # 1 EA, 0 Refill(s), 110.5 Start Date: 03/01/23 Status: Ordered Start: 02-08-2023 DME MISCellane ous See Instructions, dx: M51.36, J44.9, R09.02 dispense one hosptial bed and pressure relief mattress, # 1 EA, 0 Refill(s), DDD (degenerative disc disease), lumbar COPD with hypoxia Start Date: 02/08/23 Status: Ordered Quantity: 1.0 Unit: EA Repeat number: 1 Indications: Other intervertebral disc degeneration, lumbar region; Chronic obstructive pulmonary disease, unspecified; Start: 02-08-2023 DME MISCellane ous See Instructions, dx: M51.36, J44.9, R09.02 dispense one hosptial bed and pressure relief mattress, # 1 EA, 0 Refill(s), DDD (degenerative disc disease), lumbar COPD with hypoxia Start Date: 02/08/23 Status: Ordered Start: 10-14-2022 DME MISCellane ous See Instructions, ., # 1 EA, 0 Refill(s), 120.7 Start Date: 10/14/22 Status: Ordered Quantity: 1.0 Unit: EA Repeat number: 1 Start: 10-14-2022 DME MISCellane ous See Instructions, dx J44.9, R53.81, R26.81; dispense one power scooter, # 1 EA, 0 Refill(s), Debility Unsteady gait, 120.7 Start Date: 10/14/22 Status: Ordered Start: 10-14-2022 DME MISCellane ous See Instructions, ., # 1 EA, 0 Refill(s), 120.7 Start Date: 10/14/22 Status: Ordered Start: 02-25-2022 DME MISCellane ous See Instructions, dispense one lift massaging reclining chair. dx M54.4, M79.7, G89.4, # 1 EA, 0 Refill(s), 117.1 Start Date: 02/25/22 Status: Ordered Start: 06-18-2021 DME MISCellane ous See Instructions, full breathing mask and tubing for nebulizer; dx J43.9, # 1 EA, 5 Refill(s), COPD with emphysema, 155.4, cm, 04/30/21 13:11:00 EST, Height, 105.2, kg, 06/18/21 14:30:00 EDT, Dosing Weight Start Date: 06/18/21 Status: Ordered Quantity: 1.0 Unit: EA Repeat number: 6 Indications: Emphysema, unspecified; Start: 06-18-2021 DME MISCellane ous See Instructions, full breathing mask and tubing for nebulizer; dx J43.9, # 1 EA, 5 Refill(s), COPD with emphysema, 155.4, cm, 04/30/21 13:11:00 EST, Height, 105.2, kg, 06/18/21 14:30:00 EDT, Dosing Weight Start Date: 06/18/21 Status: Ordered Start: 05-02-2021 DME MISCellane ous See Instructions, dispense one pair of crutches; dx M84.30XA, # 1 EA, 0 Refill(s), Stress fracture, 155.4, cm, 04/30/21 13:11:00 EST, Height, 109.7, kg, 04/30/21 13:11:00 EST, Dosing Weight Start Date: 05/02/21 Status: Ordered Quantity: 1.0 Unit: EA Repeat number: 1 Indications: Stress fracture, unspecified site, initial encounter for fracture; Start: 05-02-2021 DME MISCellane ous See Instructions, dispense one pair of crutches; dx M84.30XA, # 1 EA, 0 Refill(s), Stress fracture, 155.4, cm, 04/30/21 13:11:00 EST, Height, 109.7, kg, 04/30/21 13:11:00 EST, Dosing Weight Start Date: 05/02/21 Status: Ordered Start: 03-19-2021 DME MISCellane ous See Instructions, dx: M79.89; dispense 2 pair 20-30 mmHg knee high compresssion stockings, # 2 EA, 0 Refill(s), 117.2 Start Date: 03/19/21 Status: Ordered Quantity: 2.0 Unit: EA Repeat number: 1 Start: 03-19-2021 DME MISCellane ous See Instructions, dx: M79.89; dispense 2 pair 20-30 mmHg knee high compresssion stockings, # 2 EA, 0 Refill(s), 117.2 Start Date: 03/19/21 Status: Ordered Start: 10-17-2019 DME MISCellane ous See Instructions, full breathing mask and tubing for nebulizer; dx J43.9, # 1 EA, 5 Refill(s), COPD with emphysema, Dosing Weight Start Date: 10/17/19 Status: Ordered Start: 2019 DME MISCellane ous See Instructions, dispense one shower chair; dx R53.81, # 1 EA, 0 Refill(s), Debility, 152.5, cm, 07/14/19 15:58:00 EDT, Height, 137.4, kg, 07/24/19 15:44:00 EDT, Dosing Weight Start Date: 07/24/19 Status: Ordered Quantity: 1.0 Unit: EA Repeat number: 1 Indications: Other malaise; Start: 2019 DME MISCellane ous See Instructions, dispense one flutter valve; dx J44.1., # 1 EA, 0 Refill(s), 152.5, cm, 07/14/19 15:58:00 EDT, Height, 137.4, kg, 07/24/19 15:44:00 EDT, Dosing Weight Start Date: 07/24/19 Status: Ordered Quantity: 1.0 Unit: EA Repeat number: 1 Start: 2019 DME MISCellane ous See Instructions, dispense one shower chair; dx R53.81, # 1 EA, 0 Refill(s), Debility, 152.5, cm, 07/14/19 15:58:00 EDT, Height, 137.4, kg, 07/24/19 15:44:00 EDT, Dosing Weight Start Date: 07/24/19 Status: Ordered Start: 2019 DME MISCellane ous See Instructions, dispense one flutter valve; dx J44.1., # 1 EA, 0 Refill(s), 152.5, cm, 07/14/19 15:58:00 EDT, Height, 137.4, kg, 07/24/19 15:44:00 EDT, Dosing Weight Start Date: 07/24/19 Status: Ordered Start: 07-04-2019 DME MISCellane ous See Instructions, Accucheck 1 box of 100 testing 2 times daily; dx E11.42, # 1 EA, 11 Refill(s), [id number], Type 2 diabetes mellitus, 152.4, cm, 05/31/19 10:39:00 EDT, Height, 135.5, kg, 05/31/19 10:39:00 EDT, Dosing Weight Start Date: 07/04/19 Status: Ordered Quantity: 1.0 Unit: EA Repeat number: 12 Indications: Type 2 diabetes mellitus without complications; Start: 07-04-2019 DME MISCellane ous See Instructions, Accucheck 1 box of 100 testing 2 times daily; dx E11.42, # 1 EA, 11 Refill(s), Pharmacy: [facility]/pharmacy #[id number], Type 2 diabetes mellitus, 152.4, cm, 05/31/19 10:39:00 EDT, Height, 135.5, kg, 05/31/19 10:39:00 EDT, Dosing Weight Start Date: 07/04/19 Status: Ordered doxycycline hyclate 100 mg oral capsule (2 sources) Tetracycline-class Drug Start: 11-29-2023 End: 12-09-2023 doxycycline hyclate 100 mg oral capsule Dose : 100 mg = 1 cap(s), Oral, BID, stop cefdinir, X 10 day(s), # 20 cap(s), 0 Refill(s), 12/09/23 12:50:00 PM EDT, Pharmacy: [facility] #[id number], 155, cm, 11/25/23 8:45:00 EDT, Height, 98.9, kg, 11/25/23 8:45:00 EDT, Dosing Weight Start Date: 11/29/23 Stop Date: 12/09/23 Status: Ordered empagliflozin 25 mg oral tablet (20 sources) Sodium-Glucose Cotransporter 2 Inhibitor Start: 03-09-2024 Jardiance 25 m g oral tablet Dose : 25 mg = 1 tab(s), Oral, qAM, # 90 tab(s), 1 Refill(s), Pharmacy: [facility], 155, cm, 03/30/24 15:26:00 EST, Height, kg, 03/30/24 15:26:00 EST, Dosing Weight Start Date: 04/13/24 Status: Ordered Quantity: 90.0 Unit: tab(s) Repeat number: 2 Start: 10-25-2020 End: 12-07-2023 take 1 tablet by mouth once daily Empagliflozin (Jardiance) 25 mg tablet Discontinued 25 mg PO DAILY May 23, 2021 12:00am August 31, 2023 12:00pm Comment on above: Take 25 mg by mouth daily with breakfast. Fluticasone-Umeclidin -Vilanter (4 sources) Anticholinergic, Corticosteroid, beta2-Adrenergic Agonist Start: 01-27-2023 Jzvwfnbmnwy-Bxvnzxjhr-Hv lanter (Trelegy Ellipta) 100-62.5-25 mcg blister with device Active 1 NMA INHALATION DAILY January 27, 2023 1:00am Start: 01-27-2023 Fluticasone-Um eclidin-Vilanter (Trelegy Ellipta) 100-62.5-25 mcg blister with device Active 1 INH INHALATION DAILY January 27, 2023 12:00am Start: 01-27-2023 Fluticasone-Um eclidin-Vilanter [Fluticasone Fur. 100 Mcg- Umeclid 62.5 Mcg-Vilant 25 Mcg Inhalat.Powder] (Fluticasone Fur. 100 Mcg-Umeclid 62.5 Mcg-Vilant ) 100-62.5-25 mcg blister with device Active 1 INH INHALATION DAILY January 27, 2023 12:00am gabapentin 400 mg oral capsule (20 sources) Anti-epileptic Agent Start: 08-07-2024 End: 11-05-2024 gabapentin 400 mg oral capsule Dose : 400 mg = 1 cap(s), Oral, TID, fill on or after 08/07/2024, # 90 cap(s), 2 Refill(s), Pharmacy: [facility], Low back pain with sciatica, 150.3, cm, 08/07/24 15:40:00 EDT, Height, 104.8, kg, 08/07/24 15:40:00 EDT, Dosing Weight Start Date: 08/07/24 Stop Date: 11/05/24 Status: Ordered Quantity: 90.0 Unit: cap(s) Repeat number: 3 Indications: Lumbago with sciatica, unspecified side; Start: 03-09-2024 take 1 capsule by mo [facility] every twelve hours Gabapentin 400 mg capsule Active 400 mg PO Q12H March 09, 2024 1:00am Start: 11-25-2023 End: 12-25-2023 gabapentin 400 mg oral capsu le Dose : 400 mg = 1 cap(s), Oral, BID, fill on or after 11/26/2023, # 60 cap(s), 0 Refill(s), [facility]: [facility][id number], Low back pain with sciatica, 155, cm, 11/25/23 8:45:00 EDT, Height, 98.9, kg, 11/25/23 8:45:00 EDT, Dosing Weight Start Date: 11/25/23 Stop Date: 12/25/23 Status: Ordered Start: 08-12-2023 End: 09-11-2023 gabapentin 600 mg oral table t Dose : 600 mg = 1 tab(s), Oral, TID, new dose fill on or after 08/12/2023, # 90 tab(s), 0 Refill(s), Pharmacy: [facility], Diabetic neuropathy, 155, cm, 08/12/23 13:54:00 EDT, Height, 107.2, kg, 08/12/23 13:54:00 EDT, Dosing Weight Start Date: 08/12/23 Stop Date: 09/11/23 Status: Ordered Start: 01-27-2023 End: 08-31-2023 take 2 capsules by mouth once daily in the evening Gabapentin 400 mg capsule Discontinued 800 mg PO EVERY EVENING January 27, 2023 1:00am August 31, 2023 12:00pm Start: 01-27-2023 take 800 mg by mouth once daily in the evening Gabapentin Active 800 MG PO EVERY EVENING January 27, 2023 12:00am Start: 11-15-2019 End: 08-31-2023 take 1 capsule by mouth once daily Gabapentin 400 MG capsule Discontinued 400 mg PO DAILY November 15, 2019 12:00am August 31, 2023 12:00pm Start: 11-15-2019 End: 05-26-2022 gabapentin 400 mg oral capsu le Dose : 400 mg = 1 cap(s), Oral, TID, oarrs appropriate; to be filled on or after 02/25/22, # 90 cap(s), 2 Refill(s), [facility]: [facility] #[id number], Radiculopathy, 156, cm, 01/02/22 13:01:00 EST, Height, 117.1, kg, 02/25/22 15:58:00 EST, Dosing Weight Start Date: 02/25/22 Stop Date: 05/26/22 Status: Ordered Start: 07-05-2018 End: 07-05-2018 take 1 capsule by mouth three times daily Gabapentin 300 mg capsule Discontinued 300 mg PO THREE TIMES A DAY July 05, 2018 12:00am July 05, 2018 2:14pm Comment on above: Take 400 mg by mouth three times daily. 12 hr guaiFENesin 600 mg extended release oral tablet (3 sources) Start: 01-27-20 End: 07-26-19 Mucinex 600 mg oral tablet, extended release Dose : 600 mg = 1 tab(s), Oral, q12h, X 90 day(s), # 180 tab(s), 1 Refill(s), 07/25/22 16:39:00 EDT, [facility]: [facility] #[id number], 156, cm, 01/02/22 13:01:00 EST, Height Start Date: 01/26/22 Stop Date: 07/25/22 Status: Ordered 3 ml insulin detemir 100 unt/ml pen injector (1 source) Insulin Analog Start: 09-17-19 End: 12-16-19 inject 1 dose by subcutaneous injection twice daily Levemir 100 units/mL FlexPen 3 mL Pen Dose : 50 unit(s) =, Subcutaneous, BID, # 90 mL, 0 Refill(s), [facility]: [facility] #[id number], 152, cm, 08/31/22 9:34:00 EDT, Height, kg, 08/31/22 9:34:00 EDT, Dosing Weight Start Date: 09/16/22 Stop Date: 12/15/22 Status: Ordered levothyroxine sodium 0.075 mg oral tablet (6 sources) l-Thyroxine Start: 04-13-19 levothyroxine 75 mcg (0.075 mg) oral tablet Dose : 75 mcg = 1 tab(s), Oral, qDay, new dose Take first thing in am on an empty stomach with plenty of water; wait 30 minutes before ingesting anything other than water, # 90 tab(s), 1 Refill(s), Pharmacy: [facility], 155, cm, 03/30/24 15:26:00 EST, Height, kg, 03/30/24 15:26:00 EST, Dosing Weight Start Date: 04/13/24 Status: Ordered Quantity: 90.0 Unit: tab(s) Repeat number: 2 Start: 03-09-2024 take 1 tablet by once daily Levothyroxine 75 mcg tablet Active 75 ug PO DAILY March 09, 2024 1:00am Start: 11-29-2023 levothyroxine 75 mcg (0.075 mg) oral tablet Dose : 75 mcg = 1 tab(s), Oral, qDay, new dose Take first thing in am on an empty stomach with plenty of water; wait 30 minutes before ingesting anything other than water, # 90 tab(s), 1 Refill(s), Pharmacy: [facility], 155, cm, 11/25/23 8:45:00 EDT, Height, kg, 11/25/23 8:45:00 EDT, Dosing Weight Start Date: 11/29/23 Status: Ordered Start: 08-13-2023 levothyroxine 50 mcg (0.05 mg) oral tablet Dose : 50 mcg = 1 tab(s), Oral, qDay, new dose Take first thin in am on an empty stomach with plenty of water; wait 30 minutes before ingesting anything other than water, # 90 tab(s), 0 Refill(s), Pharmacy: [facility], 155, cm, 08/12/23 13:54:00 EDT, Height, kg, 08/12/23 13:54:00 EDT, Dosing Weight Start Date: 08/13/23 Status: Ordered meclizine hydrochloride 25 m g oral tablet (20 sources) Antiemetic Start: 07-01-2023 meclizine 25 m g oral tablet Dose : 25 mg = 1 tab(s), Oral, TID, PRN as needed for dizziness, # 30 tab(s), 2 Refill(s), Pharmacy: [facility], 155, cm, 06/10/23 16:49:00 EDT, Height, kg, 06/10/23 16:49:00 EDT, Dosing Weight Start Date: 07/01/23 Status: Ordered Start: 05-23-2021 End: 01-27-2023 take 1 tablet by mouth three times daily Meclizine 25 mg tablet Discontinued 25 mg PO THREE TIMES A DAY May 23, 2021 12:00am January 27, 2023 11:14am Start: 05-31-2019 take 1-2 tablets by mouth three times daily as needed for dizziness meclizine 12.5 mg oral tablet 1 to 2 tabs, Oral, TID, PRN for dizziness, # 40 tab(s), 1 Refill(s), Pharmacy: [facility]/pharmacy #[id number], Benign positional vertigo, 152.4, cm, 05/31/19 10:39:00 EDT, Height, kg, 05/31/19 10:39:00 EDT, Dosing Weight Start Date: 05/31/19 Status: Ordered meloxicam 7.5 mg oral tablet (18 sources) Nonsteroidal Anti-inflammatory Drug Start: 03-09-2024 meloxicam 7.5 mg oral tablet Dose : 7.5 mg = 1 tab(s), Oral, qDay, # 90 tab(s), 1 Refill(s), Pharmacy: [facility], 155, cm, 03/30/24 15:26:00 EST, Height, kg, 03/30/24 15:26:00 EST, Dosing Weight Start Date: 04/13/24 Status: Ordered Quantity: 90.0 Unit: tab(s) Repeat number: 2 Start: 10-28-2023 meloxicam 7.5 mg oral tablet Dose : 7.5 mg = 1 tab(s), Oral, qDay, # 90 tab(s), 0 Refill(s), Pharmacy: [facility], 155, , 10/28/23 11:31:00 EDT, Height, kg, 10/28/23 11:19:00 EDT, Dosing Weight Start Date: 10/28/23 Status: Ordered Start: 07-26-2023 End: 01-22-2024 meloxicam 15 mg oral tablet Dose : 15 mg = 1 tab(s), Oral, qDay, # 90 tab(s), 1 Refill(s), Pharmacy: [facility], 155, , 07/08/23 16:10:00 EDT, Height, kg, 07/08/23 16:10:00 EDT, Dosing Weight Start Date: 07/26/23 Stop Date: 01/22/24 Status: Ordered Start: 07-27-2022 End: 06-19-2023 take 15 mg by mouth once daily Meloxicam Active 15 MG PO DAILY January 27, 2023 12:00am Start: 01-26-2022 End: 07-25-2022 meloxicam 15 mg oral tablet Dose : 15 mg = 1 tab(s), Oral, qDay, # 90 tab(s), 1 Refill(s), [facility]: [facility] #[id number], 156, cm, 01/02/22 13:01:00 EST, Height, kg, 01/26/22 15:00:00 EST, Dosing Weight Start Date: 01/26/22 Stop Date: 07/25/22 Status: Ordered take 1 tablet by kee once daily meloxicam (MOBIC) 15 mg tablet Take 15 mg by mouth once daily. 0 Active Comment on above: Take 15 mg by mouth once daily. metFORMIN hydrochloride 500 mg oral tablet (20 sources) Biguanide Start: 03-09-2024 take 1 tablet by mouth once daily Metformin 500 mg tablet extended release 24 hr Active 500 mg PO DAILY March 09, 2024 1:00am Start: 07-27-2022 End: 10-10-2024 MetFORMIN (Eqv-Glucophage XR ) 500 mg oral tablet, EXTENDED RELEASE Dose : 500 mg = 1 tab(s), Oral, qDay, # 90 tab(s), 1 Refill(s), [facility], 155, cm, 03/30/24 15:26:00 EST, Height, kg, 03/30/24 15:26:00 EST, Dosing Weight Start Date: 04/13/24 Stop Date: 10/10/24 Status: Ordered Quantity: 90.0 Unit: tab(s) Repeat number: 2 Start: 08-13-2021 End: 07-25-2022 MetFORMIN (Eqv-Glucophage XR ) 500 mg oral tablet, EXTENDED RELEASE Dose : 1,000 mg = 2 tab(s), Oral, qDay, # 180 tab(s), 1 Refill(s), [facility]: [facility] #[id number], 156, cm, 01/02/22 13:01:00 EST, Height, kg, 01/26/22 15:00:00 EST, Dosing Weight Start Date: 01/26/22 Stop Date: 07/25/22 Status: Ordered Start: 05-23-2021 End: 08-31-2023 Metformin 500 mg tablet exte nded release 24 hr Discontinued 1000 mg PO DAILY May 23, 2021 12:00am August 31, 2023 12:01pm Start: 05-23-2021 take 1000 mg by mout h once daily Metformin Active 1000 MG PO DAILY May 22, 2021 11:00pm Start: 05-23-2021 take 500 mg by mouth twice daily Metformin Active 500 MG PO TWICE A DAY May 23, 2021 12:00am Start: 04-30-2021 End: 07-29-2021 MetFORMIN (Eqv-Glucophage XR ) 500 mg oral tablet, EXTENDED RELEASE Dose : 1,000 mg = 2 tab(s), Oral, qDay, start 1 tab with dinner x7 days, then 1 tab BID x7d, then 1 tab am and 2 tabs pm x7d, then 2 tabs BID, # 180 tab(s), 0 Refill(s), Pharmacy: [facility]/pharmacy #[id number], 155.4, cm, 04/30/21 13:11:00 EST, Height, kg, 04/30... Start Date: 04/30/21 Stop Date: 07/29/21 Status: Ordered take 2 tablets by mo [facility] twice daily at mealtime metFORMIN (GLUCOPHAGE) 500 mg tablet Take 1,000 mg by mouth twice daily with meals. 0 Active Comment on above: Take 1,000 mg by kee twice daily with meals. methylPREDNISolone 4 mg oral tablet (2 sources) Corticosteroid Start: 04-23-2022 Medrol Dosepak 4 mg oral tablet 0 Refill(s) Start Date: 04/23/22 Status: Ordered metoprolol tartrate 50 mg oral tablet (20 sources) beta-Adrenergic Vaughn Start: 04-13-2024 Metoprolol Succinate ER 50 mg oral TABLET extended release Dose : 50 mg = 1 tab(s), Oral, qDay, new dose, # 90 tab(s), 1 Refill(s), Pharmacy: [facility], 155, cm, 03/30/24 15:26:00 EST, Height, kg, 03/30/24 15:26:00 EST, Dosing Weight Start Date: 04/13/24 Status: Ordered Quantity: 90.0 Unit: tab(s) Repeat number: 2 Start: 10-28-2023 Metoprolol Suc cinate ER 50 mg oral TABLET extended release Dose : 50 mg = 1 tab(s), Oral, qDay, new dose, # 90 tab(s), 1 Refill(s), Pharmacy: [facility], 155, cm, 10/28/23 11:31:00 EDT, Height, kg, 10/28/23 11:19:00 EDT, Dosing Weight Start Date: 10/28/23 Status: Ordered Start: 08-28-2023 take 1 tablet by [facility] once daily Metoprolol Succinate 50 mg tablet extended release 24 hr Active 50 mg PO DAILY August 28, 2023 12:00am Start: 07-01-2023 Metoprolol Suc cinate ER 50 mg oral TABLET extended release Dose : 50 mg = 1 tab(s), Oral, qDay, new dose, # 90 tab(s), 1 Refill(s), Pharmacy: [facility], 155, cm, 06/10/23 16:49:00 EDT, Height, kg, 06/10/23 16:49:00 EDT, Dosing Weight Start Date: 07/01/23 Status: Ordered Start: 04-14-2021 End: 09-15-2023 Metoprolol Succinate ER 25 m g oral TABLET extended release Dose : 25 mg = 1 tab(s), Oral, qDay, # 90 tab(s), 1 Refill(s), [facility]: [facility] #[id number], 155, cm, 02/05/23 10:24:00 EST, Height, kg, 03/19/23 15:04:00 EST, Dosing Weight Start Date: 03/19/23 Stop Date: 09/15/23 Status: Ordered Start: 07-26-2020 End: 03-23-2021 Metoprolol Succinate ER 25 m g oral TABLET extended release Dose : 25 mg = 1 tab(s), Oral, qDay, # 120 tab(s), 1 Refill(s), Pharmacy: [facility]/pharmacy #[id number], 152.5, cm, 07/26/20 15:04:00 EDT, Height, kg, 07/26/20 15:04:00 EDT, Dosing Weight Start Date: 07/26/20 Stop Date: 03/23/21 Status: Ordered Start: 05-22-2018 End: 01-27-2023 take 1 tablet by mouth once daily Metoprolol Succinate 25 mg tablet extended release 24 hr Discontinued 25 mg PO DAILY July 23, 2020 5:06pm January 27, 2023 12:01pm Comment on above: Take 25 mg by mouth once daily. mupirocin 0.02 mg/mg topical ointment (1 source) RNA Synthetase Inhibitor Antibacterial Start: 5 Mupirocin 2 % ointment Active 1 NMA TOPICAL DAILY March 09, 2024 1:00am Nasacort Allergy 24HR 55 mcg/inh nasal spray (4 sources) Start: 1 take 1 dose nasal route once daily Nasacort Allergy 24HR 55 mcg/inh nasal spray Dose = 1 spray(s), Nostril, each, qDay, # 16.9 mL, 0 Refill(s), Pharmacy: [facility]/pharmacy #[id number], 152.4, cm, 11/19/20 17:11:00 EDT, Height, kg, 11/19/20 17:11:00 EDT, Dosing Weight Start Date: 11/19/20 Status: Ordered 24 hr nicotine 0.292 mg/hr transdermal system (20 sources) Cholinergic Nicotinic Agonist Start: nicotine 14 mg/24 hr transdermal film, extended release Apply 1 patch(es), Transdermal, qDay, # 21 patch(es), 0 Refill(s), [facility]: [facility] #[id number], 155, cm, 02/05/23 10:24:00 EST, Height, 105.3, kg, 03/19/23 15:04:00 EST, Dosing Weight Start Date: 03/19/23 Status: Ordered Start: 03-19-2023 apply 1 dose transde rmal route once daily nicotine 21mg / 24hrs transdermal patch Dose = 1 patch(es), Transdermal, qDay, # 21 patch(es), 0 Refill(s), [facility]: [facility] #[id number], 155, cm, 02/05/23 10:24:00 EST, Height, kg, 03/19/23 15:04:00 EST, Dosing Weight Start Date: 03/19/23 Status: Ordered Start: 03-19-2023 nicotine 7 mg/ 24 hr transdermal film, extended release Apply 1 patch(es), Transdermal, qDay, # 21 patch(es), 0 Refill(s), [facility]: [facility][id number], 155, cm, 02/05/23 10:24:00 EST, Height, 105.3, kg, 03/19/23 15:04:00 EST, Dosing Weight Start Date: 03/19/23 Status: Ordered Start: 10-14-2022 nicotine 14 mg /24 hr transdermal film, extended release Apply 1 patch(es), Transdermal, qDay, # 21 patch(es), 0 Refill(s), Pharmacy: [facility] #[id number], 155, cm, 10/14/22 9:25:00 EDT, Height, 120.7, kg, 10/14/22 9:25:00 EDT, Dosing Weight Start Date: 10/14/22 Status: Ordered Start: 10-14-2022 nicotine 7 mg/ 24 hr transdermal film, extended release Apply 1 patch(es), Transdermal, qDay, # 21 patch(es), 0 Refill(s), Pharmacy: [facility] #[id number], 155, cm, 10/14/22 9:25:00 EDT, Height, 120.7, kg, 10/14/22 9:25:00 EDT, Dosing Weight Start Date: 10/14/22 Status: Ordered Start: 03-27-2022 apply 1 dose transde rmal route once daily nicotine 7mg / 24hrs transdermal patch Dose = 1 patch(es), Transdermal, qDay, # 21 patch(es), 0 Refill(s), [facility][id number], 156, cm, 01/02/22 13:01:00 EST, Height Start Date: 03/27/22 Status: Ordered Start: 01-26-2022 apply 1 dose transde rmal route once daily nicotine 21mg / 24hrs transdermal patch Dose = 1 patch(es), Transdermal, qDay, # 21 patch(es), 0 Refill(s), [facility]: [facility] #[id number], 156, cm, 01/02/22 13:01:00 EST, Height Start Date: 01/26/22 Status: Ordered Start: 01-26-2022 nicotine 14 mg /24 hr transdermal film, extended release Apply 1 patch(es), Transdermal, qDay, # 21 patch(es), 0 Refill(s), [facility][id number], 156, cm, 01/02/22 13:01:00 EST, Height, 118 Start Date: 03/27/22 Status: Ordered Start: 01-26-2022 nicotine 7 mg/ 24 hr transdermal film, extended release Apply 1 patch(es), Transdermal, qDay, # 21 patch(es), 0 Refill(s), [facility][id number], 156, cm, 01/02/22 13:01:00 EST, Height, 118, kg, 01/26/22 15:00:00 EST, Dosing Weight Start Date: 01/26/22 Status: Ordered nystatin 100 unt/mg topical powder (4 sources) Polyene Antifungal Start: 04-13-2024 nystatin 10 0,000 units/g topical powder Apply 1 moni, Topical, BID, # 60 gram(s), 1 Refill(s), Pharmacy: [facility], Powder, 155, cm, 03/30/24 15:26:00 EST, Height, 104.1, kg, 03/30/24 15:26:00 EST, Dosing Weight Start Date: 04/13/24 Status: Ordered Quantity: 60.0 Unit: g Repeat number: 2 Start: 08-31-2023 End: 03-09-2024 Nystatin ([facility]) 100,000 un it/gram Powder Active 1 NMA TOPICAL TWICE A DAY as needed for rash March 09, 2024 1:00am Please contact the information source for Protocol details. OLANZapine 5 mg oral tablet (4 sources) Atypical Antipsychotic Start: 08-07-2024 OLANZap ine 5 mg oral tablet Dose : 5 mg = 1 tab(s), Oral, Daily, fill after 2.5 starting dose, # 30 tab(s), 0 Refill(s), Pharmacy: [id number], 150.3, cm, 08/07/24 15:40:00 EDT, Height, kg, 08/07/24 15:40:00 EDT, Dosing Weight Start Date: 08/07/24 Status: Ordered Quantity: 30.0 Unit: tab(s) Repeat number: 1 Start: 08-07-2024 End: 08-14-2024 OLANZapine 2.5 mg oral table t Dose : 2.5 mg = 1 tab(s), Oral, Daily, # 7 tab(s), 0 Refill(s), Pharmacy: [facility], 150.3, cm, 08/07/24 15:40:00 EDT, Height, kg, 08/07/24 15:40:00 EDT, Dosing Weight Start Date: 08/07/24 Stop Date: 08/14/24 Status: Ordered Quantity: 7.0 Unit: tab(s) Repeat number: 1 ondansetron 4 mg oral tablet (5 sources) Serotonin-3 Receptor Antagonist Start: 10-25-2020 Zofran 4 mg oral tab let Dose : 4 mg = 1 tab(s), Oral, q8h, # 10 tab(s), 1 Refill(s), Pharmacy: [facility]/pharmacy #[id number], Superficial thrombophlebitis of arm S/P laparoscopic cholecystectomy, 152.5, cm, 10/25/20 14:47:00 EDT, Height, kg, 10/25/20 14:47:00 EDT, Dosing Weight Start Date: 10/25/20 Status: Ordered Pen needles (4 sources) Start: 05-10-2019 Pen needles Se e Instructions, dispense #60 Novofine 32 G pen needles; 11 refills; dx E11.9, # 60 EA, 11 Refill(s), Pharmacy: [facility]/pharmacy #[id number], 153.5, cm, 04/17/19 16:11:00 EST, Height, 136.1, kg, 04/17/19 16:11:00 EST, Dosing Weight Start Date: 05/10/19 Status: Ordered pravastatin sodium 40 mg oral tablet (19 sources) HMG-CoA Reductase Inhibitor Start: 07-27-2022 End: 10-10-2024 pravastatin 40 mg oral tablet Dose : 40 mg = 1 tab(s), Oral, qHS, # 90 tab(s), 1 Refill(s), Pharmacy: [facility], 155, cm, 03/30/24 15:26:00 EST, Height, kg, 03/30/24 15:26:00 EST, Dosing Weight Start Date: 04/13/24 Stop Date: 10/10/24 Status: Ordered Quantity: 90.0 Unit: tab(s) Repeat number: 2 Start: 08-13-2021 End: 07-25-2022 pravastatin 20 mg oral table t Dose : 20 mg = 1 tab(s), Oral, qDay, # 90 tab(s), 1 Refill(s), Pharmacy: [facility] #[id number], 156, cm, 01/02/22 13:01:00 EST, Height, kg, 01/26/22 15:00:00 EST, Dosing Weight Start Date: 01/26/22 Stop Date: 07/25/22 Status: Ordered take 1 tablet by kee once daily pravastatin (PRAVACHOL) 10 mg tablet Take 10 mg by mouth once daily. 0 Active Comment on above: Take 10 mg by mouth once daily. rOPINIRole 0.5 mg oral tablet (20 sources) Nonergot Dopamine Agonist Start: 03-09-2024 take 2 tablets by mouth at bedtime Ropinirole 0.5 mg tablet Active 1 mg PO AT BEDTIME March 09, 2024 1:00am Start: 05-23-2021 End: 08-31-2023 take 2 tablets by mouth once daily in the evening, then take 1-2 tablets by mouth at bedtime Ropinirole 0.5 mg tablet Discontinued 1 mg PO EVERY EVENING as needed for RESTLESS LEGS January 27, 2023 1:00am August 31, 2023 12:01pm TAKE TWO TABLETS (1MG) BY MOUTH ONCE EVERY EVENING IF NEEDED. TAKE AN ADDITIONAL 1-2 TABLETS (0.5MG-1MG) AT BEDTIME. Start: 05-23-2021 take 2 tablets by mo uth once daily in the evening, then take 1-2 tablets by mouth at bedtime Ropinirole Active 1 MG PO EVERY EVENING January 27, 2023 12:00am TAKE TWO TABLETS (1MG) BY MOUTH ONCE EVERY EVENING IF NEEDED. TAKE AN ADDITIONAL 1-2 TABLETS (0.5MG-1MG) AT BEDTIME. Start: 05-23-2021 take 1 mg by mouth at bedtime Ropinirole Active 1 MG PO AT BEDTIME May 23, 2021 12:00am Start: 05-23-2021 Ropinirole Act massimo 1 MG AT BEDTIME May 22, 2021 11:00pm Start: 04-02-2020 End: 10-10-2024 rOPINIRole 0.5 mg oral table t Dose : 1 mg = 2 tab(s), Oral, BID, # 360 tab(s), 1 Refill(s), Pharmacy: [facility], 155, cm, 03/30/24 15:26:00 EST, Height, kg, 03/30/24 15:26:00 EST, Dosing Weight Start Date: 04/13/24 Stop Date: 10/10/24 Status: Ordered Quantity: 360.0 Unit: tab(s) Repeat number: 2 Comment on above: Take 1 mg by mouth d aily at bedtime. silver sulfADIAZINE 10 mg/ml topical cream (3 sources) Sulfonamide Antibacterial Start: 11-29-19 silver sulfADIAZINE 1% topical cream Apply 1 moni, Topical, BID, # 30 gram(s), 2 Refill(s), [id number] Cream, 152, cm, 11/28/21 14:22:00 EDT, Height, 110.1 Start Date: 11/28/21 Status: Ordered Trelegy Ellipta 100 mcg-62.5 mcg-25 mcg/inh inhalation powder (17 sources) Start: 04-13-19 End: 10-11-19 take 1 dose by inhalation once daily Trelegy Ellipta 100 mcg-62.5 mcg-25 mcg/inh inhalation powder Dose = 1 puff(s), Inhalation, qDay, # 3 EA, 1 Refill(s), Pharmacy: [facility] [facility], [facility], cm, 03/30/24 15:26:00 EST, Height, kg, 03/30/24 15:26:00 EST, Dosing Weight Start Date: 04/13/24 Stop Date: 10/10/24 Status: Ordered Quantity: 3.0 Unit: EA Repeat number: 2 Start: 10-28-2023 End: 04-25-2024 take 1 dose by inhalation once daily Trelegy Ellipta 100 mcg-62.5 mcg-25 mcg/inh inhalation powder Dose = 1 puff(s), Inhalation, qDay, # 3 EA, 1 Refill(s), Pharmacy: [facility], 155, cm, 10/28/23 11:31:00 EDT, Height, kg, 10/28/23 11:19:00 EDT, Dosing Weight Start Date: 10/28/23 Stop Date: 04/25/24 Status: Ordered Start: 06-10-2023 End: 12-07-2023 take 1 dose by inhalation once daily Trelegy Ellipta 100 mcg-62.5 mcg-25 mcg/inh inhalation powder Dose = 1 puff(s), Inhalation, qDay, # 3 EA, 1 Refill(s), Pharmacy: [facility] #[id number], 155, cm, 06/10/23 16:49:00 EDT, Height, kg, 06/10/23 16:49:00 EDT, Dosing Weight Start Date: 06/10/23 Stop Date: 12/07/23 Status: Ordered Start: 12-21-2022 End: 06-19-2023 take 1 dose by inhalation once daily Trelegy Ellipta 100 mcg-62.5 mcg-25 mcg/inh inhalation powder Dose = 1 puff(s), Inhalation, qDay, # 3 EA, 1 Refill(s), Pharmacy: [facility] #[id number], 155, cm, 12/21/22 14:33:00 EDT, Height, kg, 12/21/22 14:33:00 EDT, Dosing Weight Start Date: 12/21/22 Stop Date: 06/19/23 Status: Ordered Start: 07-27-2022 End: 01-23-2023 take 1 dose by inhalation once daily Trelegy Ellipta 100 mcg-62.5 mcg-25 mcg/inh inhalation powder Dose = 1 puff(s), Inhalation, qDay, # 3 EA, 1 Refill(s), Pharmacy: [facility] #[id number], 153, cm, 07/27/22 16:06:00 EDT, Height, kg, 07/27/22 16:06:00 EDT, Dosing Weight Start Date: 07/27/22 Stop Date: 01/23/23 Status: Ordered Start: 01-26-2022 End: 07-25-2022 take 1 dose by inhalation once daily Trelegy Ellipta 100 mcg-62.5 mcg-25 mcg/inh inhalation powder Dose = 1 puff(s), Inhalation, qDay, # 3 EA, 1 Refill(s), Pharmacy: [facility] #[id number], 156, cm, 01/02/22 13:01:00 EST, Height, kg, 01/26/22 15:00:00 EST, Dosing Weight Start Date: 01/26/22 Stop Date: 07/25/22 Status: Ordered Start: 08-13-2021 End: 02-09-2022 take 1 dose by inhalation once daily Trelegy Ellipta 100 mcg-62.5 mcg-25 mcg/inh inhalation powder Dose = 1 puff(s), Inhalation, qDay, # 3 EA, 1 Refill(s), Pharmacy: [facility], 152, cm, 07/11/21 15:19:00 EDT, Height, kg, 08/13/21 13:00:00 EDT, Dosing Weight Start Date: 08/13/21 Stop Date: 02/09/22 Status: Ordered Start: 02-06-2020 End: 08-04-2020 take 1 dose by inhalation once daily Trelegy Ellipta 100 mcg-62.5 mcg-25 mcg/inh inhalation powder Dose = 1 puff(s), Inhalation, qDay, # 3 EA, 1 Refill(s), Pharmacy: [facility]/pharmacy #[id number], 152, cm, 02/06/20 13:12:00 EST, Height, kg, 02/06/20 13:12:00 EST, Dosing Weight Start Date: 02/06/20 Stop Date: 08/04/20 Status: Ordered 24 hr venlafaxine 225 mg extended release oral tablet (11 sources) Serotonin and Norepinephrine Reuptake Inhibitor Start: 08-04-2024 venlafaxine 225 mg oral tablet, extended release Dose : 225 mg = 1 tab(s), Oral, qDay, Take with food, # 90 tab(s), 0 Refill(s), Pharmacy: [facility], 150.3, cm, 07/03/24 14:25:00 EDT, Height, kg, 07/03/24 14:25:00 EDT, Dosing Weight Start Date: 08/04/24 Status: Ordered Quantity: 90.0 Unit: tab(s) Repeat number: 1 Start: 03-09-2024 take 1 tablet by [facility] once daily Venlafaxine 225 mg tablet extended release 24hr Active 225 mg PO DAILY March 09, 2024 1:00am Start: 08-02-2023 End: 01-29-2024 venlafaxine 225 mg oral tabl et, extended release Dose : 225 mg = 1 tab(s), Oral, qDay, new rx, # 90 tab(s), 1 Refill(s), Pharmacy: [facility], 155, cm, 10/28/23 11:31:00 EDT, Height, kg, 10/28/23 11:19:00 EDT, Dosing Weight Start Date: 10/28/23 Status: Ordered Start: 03-19-2023 End: 04-18-2023 take 3 capsules by mouth once daily, then take 2 capsules by mouth once daily, then take 3 capsules by mouth once daily venlafaxine 75 mg oral capsule, extended release 3 cap, Oral, qDay, stop lexapro and wellbutrin start 2 capsules daily for 3 days, then take 3 capsules daily, # 90 cap(s), 0 Refill(s), [facility]: [facility] #[id number], 155, cm, 02/05/23 10:24:00 EST, Height, kg, 03/19/23 15:04:00 EST, Dosing Weight Start Date: 03/19/23 Stop Date: 04/18/23 Status: Ordered Start: 05-17-2006 EFFEXOR 75 MG TAB Take one(1) tablet two(2) times daily. 0 05/17/2006 Active Comment on above: Take one(1) tablet t wo(2) times daily. Vitamin B Complex tablet (1 source) Start: 06-01-2024 Vitamin B Complex tablet Active 1 {tbl} PO DAILY June 01, 2024 12:00am vitamin b12 0.5 mg sublingual tablet (7 sources) Vitamin B12 Start: 03-30-2024 cyanocobalamin 500 mcg sublingual tablet Dose : 500 mcg = 1 tab(s), Sublingual, qDay, # 100 tab(s), 1 Refill(s), [facility]: [facility] #[id number], 155, cm, 03/30/24 15:26:00 EST, Height, kg, 03/30/24 15:26:00 EST, Dosing Weight Start Date: 03/30/24 Status: Ordered Quantity: 100.0 Unit: tab(s) Repeat number: 2 Start: 10-28-2023 cyanocobalamin 500 mcg sublingual tablet Dose : 500 mcg = 1 tab(s), Sublingual, qDay, # 100 tab(s), 1 Refill(s), [facility], [facility], cm, 10/28/23 11:31:00 EDT, Height, kg, 10/28/23 11:19:00 EDT, Dosing Weight Start Date: 10/28/23 Status: Ordered Start: 06-10-2023 cyanocobalamin 500 mcg sublingual tablet Dose : 500 mcg = 1 tab(s), Sublingual, qDay, # 100 tab(s), 1 Refill(s), [facility]: [facility] #[id number], 155, cm, 06/10/23 16:49:00 EDT, Height, kg, 06/10/23 16:49:00 EDT, Dosing Weight Start Date: 06/10/23 Status: Ordered Start: 01-26-2023 cyanocobalamin 500 mcg sublingual tablet Dose : 500 mcg = 1 tab(s), Sublingual, qDay, # 100 tab(s), 0 Refill(s), Pharmacy: [facility] #[id number], 155, cm, 01/08/23 16:04:00 EST, Height, kg, 01/08/23 16:04:00 EST, Dosing Weight Start Date: 01/26/23 Status: Ordered Start: 01-26-2023 cyanocobalamin 500 mcg sublingual tablet Dose : 500 mcg = 1 tab(s), Sublingual, qDay, # 100 tab(s), 0 Refill(s), [facility]: [facility] #[id number], 155, cm, 01/08/23 16:04:00 EST, Height, kg, 01/08/23 16:04:00 EST, Dosing Weight Start Date: 01/26/23 Status: Ordered Completed/Discontinued Medications Medication Drug Class(es) Dates Sig (Normalized) Sig (Original) albuterol 0.21 mg/ml inhalation solution (20 sources) beta2-Adrenergic Agonist Start: 06-10-2023 End: 04-25-2024 take 1 dose by inhalation four times daily albuterol 0.63 mg/3 mL (0.021%) inhalation solution Dose : 0.63 mg = 3 mL, Nebulized, QID, # 360 mL, 5 Refill(s), [facility], 155, cm, 10/28/23 11:31:00 EDT, Height, kg, 10/28/23 11:19:00 EDT, Dosing Weight Start Date: 10/28/23 Stop Date: 04/25/24 Status: Ordered Quantity: 360.0 Unit: mL Repeat number: 6 Start: 01-27-2023 Albuterol Sulf ate 90 mcg/actuation HFA aerosol inhaler Active 2 NMA INHALATION Q4H January 27, 2023 1:00am Start: 01-27-2023 take 1 puff(s) by in halation every four hours Albuterol Sulfate Active 2 PUFF INHALATION Q4H January 27, 2023 12:00am Start: 04-01-2022 End: 09-28-2022 take 2 puff(s) by inhalation every four hours as needed for wheezing ProAir HFA MDI (90 mcg/inh) inhalation aerosol 2 puff(s), Inhalation, q4h, PRN as needed for wheezing, # 3 EA, 1 Refill(s), Pharmacy: [facility] #[id number], 156, cm, 01/02/22 13:01:00 EST, Height Start Date: 04/01/22 Stop Date: 09/28/22 Status: Ordered Start: 04-14-2021 End: 07-25-2022 take 1 dose by inhalation four times daily albuterol 0.63 mg/3 mL (0.021%) inhalation solution Dose : 0.63 mg = 3 mL, Nebulized, QID, # 360 mL, 5 Refill(s), Pharmacy: [facility] #[id number], 156, cm, 01/02/22 13:01:00 EST, Height, kg, 01/26/22 15:00:00 EST, Dosing Weight Start Date: 01/26/22 Stop Date: 07/25/22 Status: Ordered Start: 04-14-2021 End: 10-11-2021 take 1 dose by inhalation four times daily albuterol 0.63 mg/3 mL (0.021%) inhalation solution Dose : 0.63 mg = 3 mL, Nebulized, QID, # 360 mL, 5 Refill(s), Pharmacy: [facility]/pharmacy #[id number], 154.5, cm, 04/14/21 16:08:00 EST, Height, kg, 04/14/21 16:08:00 EST, Dosing Weight Start Date: 04/14/21 Stop Date: 10/11/21 Status: Ordered Start: 2019 End: 01-20-2020 take 1 dose by inhalation four times daily albuterol 0.63 mg/3 mL (0.021%) inhalation solution Dose : 0.63 mg = 3 mL, Nebulized, QID, # 360 mL, 5 Refill(s), Pharmacy: [facility]/pharmacy #[id number], 152.5, cm, 07/14/19 15:58:00 EDT, Height, kg, 07/24/19 15:44:00 EDT, Dosing Weight Start Date: 07/24/19 Stop Date: 01/20/20 Status: Ordered albuterol MDI (90 mcg/inh) CFC free inhalation aerosol (17 sources) Start: 10-28-2023 End: 04-25-2024 take 2 puff(s) by inhalation every four hours albuterol MDI (90 mcg/inh) CFC free inhalation aerosol 2 puff(s), Inhalation, q4h, # 3 EA, 1 Refill(s), Pharmacy: [facility], [facility], 155, cm, 10/28/23 11:31:00 EDT, Height, kg, 10/28/23 11:19:00 EDT, Dosing Weight Start Date: 10/28/23 Stop Date: 04/25/24 Status: Ordered Quantity: 3.0 Unit: EA Repeat number: 2 Indications: Wheezing; Start: 10-28-2023 End: 04-25-2024 take 2 puff(s) by inhalation every four hours albuterol MDI (90 mcg/inh) CFC free inhalation aerosol 2 puff(s), Inhalation, q4h, # 3 EA, 1 Refill(s), Pharmacy: [facility], [facility], 155, cm, 10/28/23 11:31:00 EDT, Height, kg, 10/28/23 11:19:00 EDT, Dosing Weight Start Date: 10/28/23 Stop Date: 04/25/24 Status: Ordered Start: 07-26-2023 End: 01-22-2024 take 2 puff(s) by inhalation every four hours albuterol MDI (90 mcg/inh) CFC free inhalation aerosol 2 puff(s), Inhalation, q4h, # 3 EA, 1 Refill(s), Pharmacy: [facility], [place], 155, cm, 07/08/23 16:10:00 EDT, Height, kg, 07/08/23 16:10:00 EDT, Dosing Weight Start Date: 07/26/23 Stop Date: 01/22/24 Status: Ordered Start: 03-19-2023 End: 09-15-2023 take 2 puff(s) by inhalation every four hours albuterol MDI (90 mcg/inh) CFC free inhalation aerosol 2 puff(s), Inhalation, q4h, dispense Proair, # 3 EA, 1 Refill(s), [facility]: [facility] #[id number], [facility], 155, cm, 02/05/23 10:24:00 EST, Height, kg, 03/19/23 15:04:00 EST, Dosing Weight Start Date: 03/19/23 Stop Date: 09/15/23 Status: Ordered Start: 09-16-2022 End: 03-15-2023 take 2 puff(s) by inhalation every four hours albuterol MDI (90 mcg/inh) CFC free inhalation aerosol 2 puff(s), Inhalation, q4h, dispense Proair, # 3 EA, 1 Refill(s), Pharmacy: [facility] #[id number], [facility], 152, cm, 08/31/22 9:34:00 EDT, Height, kg, 08/31/22 9:34:00 EDT, Dosing Weight Start Date: 09/16/22 Stop Date: 03/15/23 Status: Ordered Start: 03-18-2022 End: 09-14-2022 take 2 puff(s) by inhalation every four hours albuterol MDI (90 mcg/inh) CFC free inhalation aerosol 2 puff(s), Inhalation, q4h, # 3 EA, 1 Refill(s), Pharmacy: [facility] #[id number], [facility], 156, cm, 01/02/22 13:01:00 EST, Height, kg, 02/25/22 15:58:00 EST, Dosing Weight Start Date: 03/18/22 Stop Date: 09/14/22 Status: Ordered Start: 08-13-2021 End: 02-09-2022 take 2 puff(s) by inhalation every four hours albuterol MDI (90 mcg/inh) CFC free inhalation aerosol 2 puff(s), Inhalation, q4h, # 3 EA, 1 Refill(s), [facility]acy: [facility], [facility], 152, cm, 07/11/21 15:19:00 EDT, Height, kg, 08/13/21 13:00:00 EDT, Dosing Weight Start Date: 08/13/21 Stop Date: 02/09/22 Status: Ordered Start: 03-13-2021 End: 09-09-2021 take 2 puff(s) by inhalation every four hours albuterol MDI (90 mcg/inh) CFC free inhalation aerosol 2 puff(s), Inhalation, q4h, # 3 EA, 1 Refill(s), Pharmacy: [facility]/pharmacy #[id number], [facility], 153.5, cm, 03/13/21 11:47:00 EST, Height, kg, 03/13/21 11:47:00 EST, Dosing Weight Start Date: 03/13/21 Stop Date: 09/09/21 Status: Ordered Start: 11-15-2019 End: 12-15-2019 take 2 puff(s) by inhalation every four hours albuterol MDI (90 mcg/inh) CFC free inhalation aerosol 2 puff(s), Inhalation, q4h, # 1 EA, 0 Refill(s), Pharmacy: [facility]/pharmacy #[id number], [facility], 155, cm, 11/15/19 15:33:00 EDT, Height, kg, 11/15/19 15:33:00 EDT, Dosing Weight Start Date: 11/15/19 Stop Date: 12/15/19 Status: Ordered citalopram 40 mg oral tablet (9 sources) Serotonin Reuptake Inhibitor Start: 07-05-2018 End: 07-07-2018 Citalopram 40 mg tablet Discontinued 20 mg PO DAILY July 05, 2018 12:00am July 07, 2018 3:14pm Start: 07-05-2018 End: 07-07-2018 take 20 mg by mouth once daily Citalopram Discontinued 20 MG PO DAILY July 04, 2018 11:00pm July 07, 2018 2:14pm dextromethorphan hydrobromide 3 mg/ml / promethazine hydrochloride 1.25 mg/ml oral solution (3 sources) Phenothiazine, Uncompetitive D-bqwmwy-S-aspartate Receptor Antagonist, Sigma-1 Agonist Start: 07-27-2022 End: 10-19-2022 take 1 dose by mouth every six hours dextromethorphan-promethazine 15 mg-6.25 mg/5 mL oral syrup Dose = 5 mL, Oral, q6hr, # 280 mL, 5 Refill(s), Pharmacy: [facility] #[id number], 153, cm, 07/27/22 16:06:00 EDT, Height Start Date: 07/27/22 Stop Date: 10/19/22 Status: Ordered Digitoxin (3 sources) Start: 05-17-2006 DIGITOXIN POWDER Take one(1) tablet daily. 0 05/17/2006 Active Comment on above: Take one(1) tablet d aily. 24 hr dilTIAZem hydrochloride 240 mg extended release oral capsule (3 sources) Calcium Channel Vaughn Start: 05-17-2006 DILTIAZEM CR 240 MG CAP Take one(1) tablet daily. 0 05/17/2006 Active Comment on above: Take one(1) tablet d aily. escitalopram 20 mg oral tablet (12 sources) Serotonin Reuptake Inhibitor Start: 01-27-2023 End: 06-01-2024 take 1 tablet by mouth once daily Escitalopram Oxalate 20 mg tablet Discontinued 20 mg PO DAILY January 27, 2023 1:00am June 01, 2024 10:54am Start: 07-27-2022 escitalopram 2 0 mg oral tablet Dose : 20 mg = 1 tab(s), Oral, qDay, increased dose, # 90 tab(s), 1 Refill(s), Pharmacy: [facility] #[id number], 153, cm, 07/27/22 16:06:00 EDT, Height, kg, 07/27/22 16:06:00 EDT, Dosing Weight Start Date: 07/27/22 Status: Ordered Start: 01-26-2022 escitalopram 2 0 mg oral tablet Dose : 20 mg = 1 tab(s), Oral, qDay, increased dose, # 90 tab(s), 1 Refill(s), Pharmacy: [facility] #[id number], 156, cm, 01/02/22 13:01:00 EST, Height, kg, 01/26/22 15:00:00 EST, Dosing Weight Start Date: 01/26/22 Status: Ordered Start: 08-13-2021 End: 02-09-2022 escitalopram 10 mg oral tabl et Dose : 10 mg = 1 tab(s), Oral, qDay, # 90 tab(s), 1 Refill(s), Pharmacy: [facility], 152, cm, 07/11/21 15:19:00 EDT, Height, kg, 08/13/21 13:00:00 EDT, Dosing Weight Start Date: 08/13/21 Stop Date: 02/09/22 Status: Ordered take 1 tablet by kee th once daily escitalopram oxalate (LEXAPRO) 20 mg tablet Take 20 mg by mouth once daily. 0 Active Comment on above: Take 20 mg by mouth once daily. 60 actuat fluticasone propionate 0.05 mg/actuat dry powder inhaler (9 sources) Corticosteroid Start: 07-05-2018 End: 07-07-2018 Fluticasone Propionate 50 mcg/actuation blister with device Discontinued 2 NMA INHALATION DAILY July 05, 2018 12:00am July 07, 2018 3:15pm Start: 07-05-2018 End: 07-07-2018 Fluticasone Propionate Disco ntinued 2 INH INHALATION DAILY July 04, 2018 11:00pm July 07, 2018 2:15pm furosemide 40 mg oral tablet (20 sources) Loop Diuretic Start: 10-29-2020 End: 01-27-2023 take 1 tablet by mouth once daily Furosemide 40 mg tablet Discontinued 40 mg PO DAILY May 23, 2021 12:00am January 27, 2023 11:14am Comment on above: Take 40 mg by mouth once daily. glipiZIDE 10 mg oral tablet (3 sources) Sulfonylurea Start: 05-17-2006 GLUCOTROL 10 MG TAB Take one(1) tablet daily. 0 05/17/2006 Active Comment on above: Take one(1) tablet daily. 3 ml insulin glargine 100 unt/ml pen injector (20 sources) Insulin Analog Start: 07-27-2022 End: 12-07-2023 inject 1 dose by subcutaneous injection twice daily Lantus Solostar Pen 100 units/mL 3 mL Pen Dose : 50 unit(s) =, Subcutaneous, BID, holding at this time, # 90 mL, 1 Refill(s), Pharmacy: [facility] #[id number], 155, cm, 06/10/23 16:49:00 EDT, Height, kg, 06/10/23 16:49:00 EDT, Dosing Weight Start Date: 06/10/23 Stop Date: 12/07/23 Status: Ordered Quantity: 90.0 Unit: mL Repeat number: 2 Start: 03-13-2021 End: 07-25-2022 inject 1 dose by subcutaneous injection twice daily Lantus Solostar Pen 100 units/mL 3 mL Pen Dose : 50 unit(s) =, Subcutaneous, BID, # 90 mL, 1 Refill(s), Pharmacy: [facility] #[id number], 156, cm, 01/02/22 13:01:00 EST, Height, kg, 01/26/22 15:00:00 EST, Dosing Weight Start Date: 01/26/22 Stop Date: 07/25/22 Status: Ordered Start: 12-17-2020 End: 09-09-2021 inject 1 dose by subcutaneous injection twice daily Lantus Solostar Pen 100 units/mL 3 mL Pen Dose : 50 unit(s) =, Subcutaneous, BID, # 90 mL, 1 Refill(s), Pharmacy: [facility]/pharmacy #[id number], 153.5, cm, 03/13/21 11:47:00 EST, Height, kg, 03/13/21 11:47:00 EST, Dosing Weight Start Date: 03/13/21 Stop Date: 09/09/21 Status: Ordered Start: 03-14-2014 End: 08-31-2023 Insulin Glargine 100 UNITS/M L insulin pen Discontinued 100 U SC AT BEDTIME March 14, 2014 1:00am August 31, 2023 12:00pm Start: 03-14-2014 Insulin Glargi ne Active 100 UNITS SC AT BEDTIME March 14, 2014 12:00am morphine sulfate 20 mg extended release oral capsule (6 sources) Opioid Agonist Start: 06-25-2006 take 1 tablet by mouth once daily morphine SR (MARISSA) 20 mg ORAL CSRP Take one(1) tablet two(2) times daily. 0 06/25/2006 Active Start: 06-15-2006 take 1 tablet by kee th once daily morphine SR 20 mg ORAL C24P Take one(1) tablet daily. 0 06/15/2006 Active Comment on above: Take one(1) tablet d aily. Take one(1) tablet t wo(2) times daily. oxyCODONE hydrochloride 5 mg oral tablet (12 sources) Opioid Agonist Start: 0 End: 0 take 5-10 mg by mouth every four hours as needed for pain Oxycodone 5 MG tablet Discontinued 5 - 10 mg PO EVERY 4 HOURS NEEDED as needed for Pain Score 4-10/10 40 5 November 17, 2019 November 21, 2019 12:00am November 22, 2019 12:02am take 1 tablet by mouth four time s daily oxyCODONE IR (ROXICODONE) 10 mg tab Take 10 mg by mouth four times daily. 0 Active Comment on above: Take 10 mg by mouth four times daily. polyethylene glycol 3350 [id number] mg / potassium chloride 2970 mg / sodium bicarbonate 6740 mg / sodium chloride 5860 mg / sodium sulfate 82935 mg powder for oral solution (2 sources) Osmotic Laxative Start: 2 End: 2 peg 3350-Electrolytes (GOLYTELY) 236-22.74-6.74 -5.86 gram suspension Take 4,000 mL by mouth one time only for 1 dose. 1 Each 0 09/09/2021 09/09/2021 Comment on above: Take 4,000 mL by kee th one time only for 1 dose. predniSONE 20 mg oral tablet (6 sources) Start: 4 End: 5 take 3 tablets by mouth once daily Prednisone 20 mg tablet Discontinued 60 mg PO DAILY 15 February 22, 2024 12:30am March 09, 2024 11:56pm Start: 04-25-2021 End: 04-30-2021 predniSONE 50 mg oral tablet Dose : 50 mg = 1 tab(s), Oral, qDayM, # 5 tab(s), 0 Refill(s), Pharmacy: [facility]/pharmacy #[id number], 154.5, cm, 04/14/21 16:08:00 EST, Height, kg, 04/14/21 16:08:00 EST, Dosing Weight Start Date: 04/25/21 Stop Date: 04/30/21 Status: Ordered Start: 04-14-2021 End: 04-19-2021 predniSONE 50 mg oral tablet Dose : 50 mg = 1 tab(s), Oral, qDayM, # 5 tab(s), 0 Refill(s), Pharmacy: [facility]/pharmacy #[id number], 154.5, cm, 04/14/21 16:08:00 EST, Height, kg, 04/14/21 16:08:00 EST, Dosing Weight Start Date: 04/14/21 Stop Date: 04/19/21 Status: Ordered Start: 01-13-2021 End: 01-18-2021 predniSONE 50 mg oral tablet Dose : 50 mg = 1 tab(s), Oral, qDayM, # 5 tab(s), 0 Refill(s), Pharmacy: [facility]/pharmacy #[id number], 153, cm, 12/24/20 14:55:00 EDT, Height, kg, 01/07/21 10:05:00 EST, Dosing Weight Start Date: 01/13/21 Stop Date: 01/18/21 Status: Ordered propafenone hydrochloride 150 mg oral tablet (3 sources) Antiarrhythmic Start: 05-17-2006 PROPAFENONE 150 MG TAB Take one(1) tablet daily. 0 05/17/2006 Active Comment on above: Take one(1) tablet d aily. 0.25 mg, 0.5 mg dose 1.5 ml semaglutide 1.34 mg/ml pen injector (2 sources) Start: 10-02-2020 End: 12-31-2020 inject 0.5 mg by subcutaneous injection every week Ozempic 2 mg/1.5 mL (0.25 mg or 0.5 mg dose) subcutaneous solution 0.5 mg, Subcutaneous, qWeek, # 3 EA, 0 Refill(s), [id number], 152.5, cm, 08/23/20 14:51:00 EDT, Height, kg, 09/20/20 14:33:00 EDT, Dosing Weight Start Date: 10/02/20 Stop Date: 12/31/20 Status: Ordered Problems Active Problems Problem Classification Problem Date Documented Da te Episodic/Chronic Acute myocardial infarction (7 sources) Myocardial infarction; Translations: [Non-ST elevation (NSTEMI) myocardial infarction] 01-28-2023 Chronic Anxiety disorders (20 sources) Anxiety; Translations: [Claustrophobia] 10-25-2018 Chronic Biliary tract disease (9 sources) Acute cholecystitis; Translations: [Acute cholecystitis] 11-16-2019 Episodic Cardiac dysrhythmias (20 sources) Atrial fibrillation; Translations: [Paroxysmal atrial fibrillation] 10-25-2018 Chronic Cardiac dysrhythmias (9 sources) Palpitations; Translations: [Palpitations] 05-30-2018 Episodic Chronic kidney disease (1 source) Chronic kidney disease; Translations: [Chronic kidney disease, unspecified] 06-01-2024 Chronic Chronic obstructive pulmonary disease and bronchiectasis (20 sources) Pulmonary emphysema; Translations: [Chronic bronchitis co-occurrent with wheeze] Onset: 4 08-23-2019 Chronic Comment on above: may call in for pred nisone when exacerbates Chronic obstructive pulmonary disease and bronchiectasis (10 sources) Bronchitis 01-09-2020 Episodic Conditions associated with dizziness or vertigo (20 sources) Benign paroxysmal positional vertigo; Translations: [Vertigo] 05-31-2019 Episodic Conduction disorders (10 sources) Bundle branch block 12-21-2022 Chronic Congestive heart failure; nonhypertensive (11 sources) Diastolic heart failure 05-27-2022 Chronic Coronary atherosclerosis and other heart disease (11 sources) Coronary arteriosclerosis 05-27-2022 Chronic Diabetes mellitus with complications (20 sources) Neuropathy due to diabetes mellitus; Translations: [Type II diabetes mellitus uncontrolled] Onset: 5 05-31-2020 Chronic Diabetes mellitus without complication (20 sources) Type 2 diabetes mellitus; Translations: [Type 2 diabetes mellitus without complications] Onset: 4 10-25-2018 Chronic Disorders of lipid metabolism (20 sources) Hypercholesterolemia; Translations: [Pure hypercholesterolemia, unspecified] 10-25-2018 Chronic Essential hypertension (13 sources) Hypertensive disorder; Translations: [Essential (primary) hypertension] 11-15-2019 Chronic Fever of unknown origin (7 sources) Fever; Translations: [Fever, unspecified] 01-27-2023 Episodic Genitourinary symptoms and ill-defined conditions (20 sources) Female stress incontinence; Translations: [Stress incontinence (female) (male)] 07-16-2019 Chronic Genitourinary symptoms and ill-defined conditions (4 sources) Unspecified symptoms and signs involving the genitourinary system; Translations: [Dysuria] Onset: 4 Episodic Immunity disorders (10 sources) Secondary immune deficiency disorder 11-13-2022 Chronic Malaise and fatigue (4 sources) Fatigue; Translations: [Other fatigue] Onset: 4 08-03-2023 Episodic Mood disorders (15 sources) Major depressive disorder; Translations: [Recurrent major depression] 06-18-2021 Chronic Mycoses (20 sources) Pityriasis versicolor 07-26-2020 Episodic Nausea and vomiting (20 sources) Nausea 11-22-2019 Episodic Nonspecific chest pain (19 sources) Chest pain; Translations: [Chest pain, unspecified] 07-16-2019 Episodic Nutritional deficiencies (12 sources) Vitamin D deficiency; Translations: [Vitamin D deficiency, unspecified] Onset: 4 04-23-2023 Chronic Osteoarthritis (20 sources) Arthritis; Translations: [Osteoarthritis of knee] 12-20-2018 Chronic Other aftercare (10 sources) Post-discharge follow-up 02-05-2023 Episodic Other and ill-defined heart disease (20 sources) Left atrial enlargement 04-01-2019 Chronic Other bone disease and musculoskeletal deformities (20 sources) Cervical somatic dysfunction 08-23-2019 Episodic Other bone disease and musculoskeletal deformities (20 sources) Somatic dysfunction of lower limb 04-17-2019 Episodic Other bone disease and musculoskeletal deformities (20 sources) Somatic dysfunction of lumbar region 08-23-2019 Episodic Other bone disease and musculoskeletal deformities (20 sources) Somatic dysfunction of pelvic region 08-23-2019 Episodic Other bone disease and musculoskeletal deformities (20 sources) Somatic dysfunction of rib 08-23-2019 Episodic Other bone disease and musculoskeletal deformities (20 sources) Somatic dysfunction of sacral region 08-23-2019 Episodic Other bone disease and musculoskeletal deformities (20 sources) Somatic dysfunction of thoracic region 08-23-2019 Episodic Other bone disease and musculoskeletal deformities (17 sources) Bone pain 04-30-2021 Episodic Other bone disease and musculoskeletal deformities (14 sources) Osteopenia 09-04-2021 Episodic Other connective tissue disease (20 sources) Fibromyalgia 06-28-2019 Episodic Other connective tissue disease (20 sources) Swelling of lower limb 04-02-2020 Episodic Other connective tissue disease (20 sources) Trochanteric bursitis 10-17-2019 Episodic Other connective tissue disease (8 sources) Achilles tendinitis 05-19-2021 Episodic Other connective tissue disease (16 sources) Tibialis posterior tendinitis 05-19-2021 Episodic Other connective tissue disease (11 sources) Pain in left lower limb 10-14-2022 Episodic Other ear and sense organ disorders (20 sources) Otitis externa 07-26-2020 Chronic Other gastrointestinal disorders (2 sources) Dysphagia; Translations: [Dysphagia, unspecified] Episodic Other gastrointestinal disorders (5 sources) Diarrhea; Translations: [Diarrhea, unspecified] 10-20-2022 Episodic Other gastrointestinal disorders (8 sources) Complete fecal incontinence 08-12-2023 Episodic Other injuries and conditions due to external causes (20 sources) Foreign body in ear 05-21-2021 Episodic Other injuries and conditions due to external causes (16 sources) At risk for falls 05-19-2021 Episodic Other lower respiratory disease (12 sources) Cough 01-04-2019 Episodic Other lower respiratory disease (20 sources) Dyspnea; Translations: [Dyspnea, unspecified] 04-02-2020 Episodic Other lower respiratory disease (20 sources) H/O: pneumonia 08-23-2019 Episodic Other lower respiratory disease (5 sources) Wheezing 12-21-2018 Episodic Other lower respiratory disease (11 sources) Hypoxia 06-22-2022 Episodic Other lower respiratory disease (4 sources) Hypoxemia; Translations: [Hypoxemia] 01-27-2023 Episodic Other lower respiratory disease (1 source) Shortness of breath; Translations: [Shortness of breath] Onset: 5 Episodic Other nervous system disorders (20 sources) Chronic pain syndrome 11-30-2018 Chronic Other nervous system disorders (20 sources) Nerve root disorder 07-14-2019 Chronic Other non-traumatic joint disorders (20 sources) Hip pain 11-19-2020 Episodic Other non-traumatic joint disorders (20 sources) Joint pain 04-17-2019 Episodic Other non-traumatic joint disorders (1 source) Pain in unspecified hip; Translations: [Pain in unspecified hip] Onset: 5 Episodic Other nutritional; endocrine; and metabolic disorders (20 sources) Morbid obesity; Translations: [Morbid (severe) obesity due to excess calories] 12-21-2018 Chronic Other nutritional; endocrine; and metabolic disorders (17 sources) Body mass index 40+ - severely obese 04-14-2021 Chronic Other nutritional; endocrine; and metabolic disorders (9 sources) Obesity; Translations: [Obesity, unspecified] 07-16-2019 Chronic Other nutritional; endocrine; and metabolic disorders (3 sources) Morbid (severe) obesity due to excess calories; Translations: [Morbid obesity] 01-27-2023 Chronic Other nutritional; endocrine; and metabolic disorders (9 sources) Metabolic syndrome X 04-12-2023 Chronic Other screening for suspected conditions (not mental disorders or infectious disease) (9 sources) Patient encounter status; Translations: [Encounter for screening for malignant neoplasm of colon] Episodic Other skin disorders (20 sources) Eruption 12-24-2020 Episodic Pathological fracture (2 sources) Stress fracture of tibia 05-13-2021 Episodic Peripheral and visceral atherosclerosis (20 sources) Intermittent claudication; Translations: [Peripheral vascular disease] 03-05-2020 Chronic Phlebitis; thrombophlebitis and thromboembolism (5 sources) Thrombophlebitis of superficial veins of lower extremity; Translations: [Phlebitis and thrombophlebitis of superficial vessels of unspecified lower extremity] 10-20-2022 Episodic Pneumonia (except that caused by tuberculosis or sexually transmitted disease) (18 sources) Pneumonia; Translations: [Pneumonia, unspecified organism] 11-15-2019 Episodic Residual codes; unclassified (9 sources) Sleep apnea 10-25-2018 Chronic Residual codes; unclassified (20 sources) Obstructive sleep apnea syndrome; Translations: [Obstructive sleep apnea (adult) (pediatric)] 07-16-2019 Chronic Residual codes; unclassified (5 sources) Obstructive sleep apnea (adult) (pediatric); Translations: [Obstructive sleep apnea (adult)(pediatric)] Onset: 01-27-2023 Chronic Residual codes; unclassified (1 source) Hypersomnia; Translations: [Hypersomnia, unspecified] 08-03-2023 Chronic Residual codes; unclassified (20 sources) Immunization due 12-24-2020 Episodic Residual codes; unclassified (20 sources) Insomnia 10-25-2018 Episodic Residual codes; unclassified (20 sources) Peripheral edema 10-25-2018 Episodic Residual codes; unclassified (20 sources) Tobacco user; Translations: [Tobacco use] 12-21-2018 Episodic Residual codes; unclassified (14 sources) Screening due 12-26-2021 Episodic Residual codes; unclassified (4 sources) Altered mental status; Translations: [Altered mental status, unspecified] 01-27-2023 Episodic Residual codes; unclassified (3 sources) Altered mental status, unspecified; Translations: [Altered mental status] 01-27-2023 Episodic Residual codes; unclassified (10 sources) Memory impairment 01-08-2023 Episodic Residual codes; unclassified (1 source) Pain; Translations: [Pain, unspecified] 09-09-2023 Episodic Residual codes; unclassified (1 source) Amnesia; Translations: [Other amnesia] Episodic Residual codes; unclassified (1 source) Other amnesia; Translations: [Other amnesia] Onset: Episodic Respiratory failure; insufficiency; arrest (adult) (15 sources) Dependence on supplemental oxygen; Translations: [Chronic hypoxemic respiratory failure] 04-23-2023 Chronic Respiratory failure; insufficiency; arrest (adult) (17 sources) Acute respiratory failure; Translations: [Acute respiratory failure with hypoxia] 11-15-2019 Episodic Rheumatoid arthritis and related disease (20 sources) Inflammatory polyarthropathy 06-28-2019 Chronic Septicemia (except in labor) (7 sources) Sepsis; Translations: [Sepsis, unspecified organism] 01-27-2023 Episodic Spondylosis; intervertebral disc disorders; other back problems (10 sources) Degeneration of lumbar intervertebral disc 12-21-2022 Chronic Spondylosis; intervertebral disc disorders; other back problems (20 sources) Chronic low back pain; Translations: [Lumbago with sciatica] 08-23-2019 Episodic Substance-related disorders (20 sources) Continuous opioid dependence 10-17-2019 Chronic Superficial injury; contusion (1 source) Contusion of right chest wall; Translations: [Contusion of right front wall of thorax, initial encounter] 09-09-2023 Episodic Thyroid disorders (20 sources) Hypothyroidism; Translations: [Hypothyroidism, unspecified] Onset: 4 10-25-2018 Chronic Unclassified (20 sources) Bilateral total knee chronic pain following arthroplasty 11-30-2018 Unclassified (20 sources) Patient encounter status 07-12-2020 Unclassified (14 sources) Burn of digit of hand 11-28-2021 Unclassified (14 sources) Drug therapy finding 03-27-2022 Unclassified (14 sources) Fracture of head of humerus 11-28-2021 Unclassified (11 sources) Coronary artery disease due to type 2 diabetes mellitus 05-27-2022 Unclassified (7 sources) Hypercoagulable state due to atrial fibrillation 10-28-2023 Unclassified (1 source) Other intervertebral disc degeneration, lumbar region with discogenic back pain only; Translations: [Other intervertebral disc degeneration, lumbar region with discogenic back pain only] Onset: 5 Unclassified (2 sources) Finding of employment status 05-22-2024 Urinary tract infections (6 sources) Acute cystitis; Translations: [Urinary tract infectious disease] Onset: 5 03-19-2023 Episodic Varicose veins of lower extremity (16 sources) Varicose veins of lower extremity 05-19-2021 Episodic Viral infection (17 sources) Herpes zoster 03-13-2021 Episodic Viral infection (18 sources) Disease caused by 2019-nCoV; Translations: [COVID-19] Onset: Past or Other Problems Problem Classification Problem Date Documented Date Episodic/Chronic Allergic reactions (20 sources) Allergic condition; Translations: [Allergy status to penicillin] Onset: 03-27-2024 11-19-2020 Episodic Complications of surgical procedures or medical care (5 sources) Other complications of procedures, not elsewhere classified, initial encounter; Translations: [Non-healing surgical wound] Onset: 06-25-2006 06-25-2006 Episodic E Codes: Fall (2 sources) Fall from bed, initial encounter; Translations: [Fall from bed] Onset: 09-02-2023 09-09-2023 Episodic Nutritional deficiencies (10 sources) Cobalamin deficiency; Translations: [Deficiency of other specified B group vitamins] Onset: 11-25-2023 08-12-2023 Episodic Other lower respiratory disease (4 sources) Hypoxemia; Translations: [Hypoxemia] Onset: 09-01-2023 01-27-2023 Episodic Other nutritional; endocrine; and metabolic disorders (1 source) Adult failure to thrive; Translations: [Adult failure to thrive] Onset: 09-14-2023 Episodic Screening and history of mental health and substance abuse codes (11 sources) Tobacco use and exposure - finding; Translations: [Personal history of nicotine dependence] Onset: 03-27-2024 Episodic Skin and subcutaneous tissue infections (2 sources) Cellulitis of right toe; Translations: [Cellulitis of right toe] Onset: 11-25-2023 Episodic Results Test Name Value Interpretation Reference Range Facility [facility] 09-07-2024 Order Number [id number] [facility] Comment on above: Order Comment: Send to [facility] lavender frozen [id number] pour off Performed By: #### U PACO HANNON #### [address] Test Name phosphorylated tau 217 [facility] Comment on above: Order Comment: Send to [facility] lavender frozen [id number] pour off Performed By: #### U PARVEZ UA #### [address] 09-06-2024 [facility] Test Result COMMENT Normal [facility] Comment on above: Order Comment: Send to [employer] lavender frozen [id number] pour off Result Comment: Test Ordered: [id number] [id number] 0.99 [H ] pg/mL L9 Reference Range: 0.00-0.18 This test was developed and its performance characteristics determined by [facility]. It has not been cleared or approved by the Food and Drug Administration. Clinical cutoff value was established using samples from a patient cohort characterized with amyloid PET data. A p-zeh694 value of >0.18 is a reported surrogate marker for beta amyloid pathology, and can be used to facilitate biological identification of Alzheimer's disease (1). p-[id number] has also been used in clinical trials to monitor patients on anti-amyloid therapy (2,3). Test performed by [employer] chemiluminescent enzyme immunoassay (CLEIA). Values obtained with different methods cannot be used interchangeably. The validated limit of quantification is 0.06 pg/mL. Assay detection limit is 0.03 pg/mL. Footnotes Comment L9 1. Obdulio Loyola, et al. "Diagnostic Accuracy of a Plasma Phosphorylated Tau 217 Immunoassay for Alzheimer Disease Pathology." [facility] (2023). 2. Obdulio Loyola, et al. "Differential roles of A42/40, p-ois502 and p-rzd459 for Alzheimer's trial selection and disease monitoring." Nature medicine 28.12 (2021): 1758-9726. 3. Livia ART, Peyton M, [place], et al. "Association of Donanemab Treatment With Exploratory Plasma Biomarkers in Early Symptomatic Alzheimer Disease: A Secondary Analysis of the TRAILBLAZER-ALZ Randomized Clinical Trial". [facility]. 2021;79(12):8683-5420. Performed At: [facility] [id number] Shi Joy PhD Ph:[phone] Performed At: [facility] [address] [place] [address], [place] [id number] Clem Nazario MD Ph:[phone] Performed By: #### U PARVEZ UA #### [address] [address] .Auto Diffon 09-01-2024 Basophil, Absolute 0.1 10 3/mcL Normal 0.0-0.3 [facility] Comment on above: Performed By: #### U AMICAO, UA #### [address] [address] Basophils/100 WBC (Bld) 0.8 % Normal 0.0-2.5 [facility] Comment on above: Performed By: #### U AMICAO, UA #### [address] [address] Eosinophil, Absolute 0.2 10 3/mcL Normal 0.0-0.7 [facility] Comment on above: Performed By: #### U AMICAO, UA #### [address] [address] Eosinophils/100 WBC (Bld) 1.7 % Normal 0.0-6.0 [facility] Comment on above: Performed By: #### U AMICAO, UA #### [address] [address] Lymphocyte, Absolute 2.7 10 3/mcL Normal 0.9-4.3 [facility] Comment on above: Performed By: #### U AMICAO, UA #### [address] [address] Lymphocytes/100 WBC (Bld) 27.3 % Normal 20.0-40.0 [facility] Comment on above: Performed By: #### U AMICAO, UA #### [address] [address] Monocyte, Absolute 0.6 10 3/mcL Normal 0.1-1.4 [facility] Comment on above: Performed By: #### U AMICAO, UA #### [address] [address] Monocytes/100 WBC (Bld) 5.9 % Normal 2.0-13.0 [facility] Comment on above: Performed By: #### U PARVEZ UA #### [address] [place], [place] [address] Neutrophils/100 WBC (Bld) 64.3 % Normal 50.0-75.0 [facility] Comment on above: Performed By: #### U PARVEZ UA #### [address] [place], [place] [address] .GFRon 09-01-2024 Estimated Glomerular Filtration Rate 41 ml/min/1.73sqm Normal [facility] Comment on above: Result Comment: Stages of Chronic Kidney Disease (CKD) Stage Description eGFR(ml/min/1.73 sq.m.) CKD 1 Normal kidney function or >=90 normal kindney function with possible kidney damage (ex. Proteinuria) CKD 2 Kidney damage with mild loss 60-89 of kidney function CKD 3a Mild to moderate loss of kidney 45-59 function CKD 3b Moderate to severe loss of 30-44 of kindey function CKD 4 Severe loss of kidney function 15-29 CKD 5 Kidney failure <15 Note: (go live 2024) the eGFR calculation was updated to the 2020 CKD-EPI creatinine equation without a race factor to calculate the eGFR results. Performed By: #### T SH, GFR, FT4, CBC, ADIFF, VIDH, A1C, CMP, ANEU #### [address] [address] #### B12 #### [address] [address] .NEUABSon 09-01-2024 Neutrophil, Absolute 6.3 10 3/mcL Normal 2.3-8.1 [facility] Comment on above: Performed By: #### U PARVEZ UA #### [address] [place], [place] [address] A1Con 09-01-2024 Glucose [Mass/Vol] 128 mg/dL Normal [facility] Comment on above: Result Comment: Eloisa mated Average Glucose calculated by equation ((28.7xA1C)-46.7) Estimated average glucose (eAG) is a calculated value from Hemoglobin A1C and is manufacturing sales representative of the average blood glucose level in the last 2-3 month period. Normal range: less than 114 mg/dL Performed By: #### T SH, GFR, FT4, CBC, ADIFF, VIDH, A1C, CMP, ANEU #### [address] [address] #### B12 #### [address] [address] HbA1c (Bld) [Mass fraction] 6.1 % Normal 4.3-6.4 [facility] Comment on above: Performed By: #### T SH, GFR, FT4, CBC, ADIFF, VIDH, A1C, CMP, ANEU #### [address] [address] #### B12 #### [address] [address] B12on 09-01-2024 Cobalamin (Vitamin B12) [Mass/Vol] 336 pg/mL Normal 211-911 [facility] Comment on above: Performed By: #### T SH, GFR, FT4, CBC, ADIFF, VIDH, A1C, CMP, ANEU #### [address] [address] #### B12 #### [address] [address] CBCon 09-01-2024 Erythrocyte distribution width (RBC) [Ratio] 14.9 % Normal 11.5-15.5 [facility] Comment on above: Performed By: #### U PARVEZ UA #### [address] [address] Hematocrit (Bld) [Volume fraction] 42.0 % Normal 34.0-46.0 [facility] Comment on above: Performed By: #### U PARVEZ UA #### [address] [address] Hgb 13.9 G/dL Normal 12.0-16.0 [facility] Comment on above: Performed By: #### PACO ASHFORD #### [address] [address] MCH (RBC) [Entitic mass] 31.3 pg Normal 27.0-33.0 [facility] Comment on above: Performed By: #### PACO ASHFORD #### [address] [address] MCHC 33.0 G/dL Normal 32.0-36.0 [facility] Comment on above: Performed By: #### Kush HANNON UA #### [address] [address] MCV (RBC) [Entitic vol] 94.8 fL Normal 80.0-99.0 [facility] Comment on above: Performed By: #### Kush HANNON UA #### [address] [address] Platelet 274 10 3/mcL Normal 150-450 [facility] Comment on above: Performed By: #### PACO ASHFORD #### [address] [address] Platelet mean volume (Bld) [Entitic vol] 10.8 fL High 6.6-10.5 [facility] Comment on above: Performed By: #### Kush HANNON UA #### [address] [address] RBC 4.43 10 6/mcL Normal 4.10-5.30 [facility] Comment on above: Performed By: #### Kush HANNON UA #### [address] [address] WBC 9.8 10 3/mcL Normal 4.5-10.8 [facility] Comment on above: Performed By: #### Kush HANNON UA #### [address] [address] CMPon 09-01-2024 Albumin Level 3.5 G/dL Normal 3.4-4.8 [facility] Comment on above: Performed By: #### T SH, GFR, FT4, CBC, ADIFF, VIDH, A1C, CMP, ANEU #### [place] [address] #### B12 #### [address] [address] Albumin/Globulin [Mass ratio] 0.9 {ratio} Low 1.1-2.5 [facility] Comment on above: Performed By: #### T SH, GFR, FT4, CBC, ADIFF, VIDH, A1C, CMP, ANEU #### [place] [address] #### B12 #### [address] [address] ALP [Catalytic activity/Vol] 114 U/L Normal 40-135 [facility] Comment on above: Performed By: #### T SH, GFR, FT4, CBC, ADIFF, VIDH, A1C, CMP, ANEU #### [place] [address] #### B12 #### [place] [address] ALT [Catalytic activity/Vol] 19 U/L Normal 14-59 [facility] Comment on above: Performed By: #### T SH, GFR, FT4, CBC, ADIFF, VIDH, A1C, CMP, ANEU #### [place] [address] #### B12 #### [place] [address] AST [Catalytic activity/Vol] 13 U/L Normal 10-40 [facility] Comment on above: Performed By: #### T SH, GFR, FT4, CBC, ADIFF, VIDH, A1C, CMP, ANEU #### [place] [address] #### B12 #### [place] [address] Bili Total 0.4 mg/dL Normal 0.2-1.0 [facility] Comment on above: Result Comment: Use of this assay is not recommended for patients undergoing treatment with eltrombopag due to the potential for falsely elevated results. Performed By: #### T SH, GFR, FT4, CBC, ADIFF, VIDH, A1C, CMP, ANEU #### [address] [address] #### B12 #### [address] [address] BUN/Creatinine Ratio 16 ratio Normal 7-27 [facility] Comment on above: Performed By: #### T SH, GFR, FT4, CBC, ADIFF, VIDH, A1C, CMP, ANEU #### [place] [address] #### B12 #### [address] [address] Calcium [Mass/Vol] 9.4 mg/dL Normal 8.4-10.2 [facility] Comment on above: Performed By: #### T SH, GFR, FT4, CBC, ADIFF, VIDH, A1C, CMP, ANEU #### [place] [address] #### B12 #### [address] [address] Chloride [Moles/Vol] 104 mmol/L Normal 98-107 [facility] Comment on above: Performed By: #### T SH, GFR, FT4, CBC, ADIFF, VIDH, A1C, CMP, ANEU #### [place] [address] #### B12 #### [address] [address] CO2 [Moles/Vol] 29 mmol/L Normal 23-31 [facility] Comment on above: Performed By: #### T SH, GFR, FT4, CBC, ADIFF, VIDH, A1C, CMP, ANEU #### [place] [address] #### B12 #### [address] [address] Creatinine [Mass/Vol] 1.37 mg/dL High 0.51-0.95 [facility] Comment on above: Performed By: #### T SH, GFR, FT4, CBC, ADIFF, VIDH, A1C, CMP, ANEU #### [place] [address] #### B12 #### [address] [address] Electrolyte Balance 10.0 mEq/L Normal 4.0-15.0 [facility] Comment on above: Performed By: #### T SH, GFR, FT4, CBC, ADIFF, VIDH, A1C, CMP, ANEU #### [place] [address] #### B12 #### [address] [address] Globulin 3.9 G/dL Normal 2.7-4.4 [facility] Comment on above: Performed By: #### T SH, GFR, FT4, CBC, ADIFF, VIDH, A1C, CMP, ANEU #### [place] [address] #### B12 #### [place] [address] Glucose [Mass/Vol] 174 mg/dL High 83-110 [facility] Comment on above: Performed By: #### T SH, GFR, FT4, CBC, ADIFF, VIDH, A1C, CMP, ANEU #### [place] [address] #### B12 #### [place] [address] Potassium [Moles/Vol] 3.5 mmol/L Normal 3.5-5.1 [facility] Comment on above: Performed By: #### T SH, GFR, FT4, CBC, ADIFF, VIDH, A1C, CMP, ANEU #### [place] [address] #### B12 #### [address] [address] Sodium [Moles/Vol] 143 mmol/L Normal 136-145 [facility] Comment on above: Performed By: #### T SH, GFR, FT4, CBC, ADIFF, VIDH, A1C, CMP, ANEU #### [address] [address] #### B12 #### [place] [address] Total Protein 7.4 G/dL Normal 6.4-8.2 [facility] Comment on above: Performed By: #### T SH, GFR, FT4, CBC, ADIFF, VIDH, A1C, CMP, ANEU #### [address] [address] #### B12 #### [place] [address] Urea nitrogen [Mass/Vol] 22 mg/dL High 7-18 [facility] Comment on above: Performed By: #### T SH, GFR, FT4, CBC, ADIFF, VIDH, A1C, CMP, ANEU #### [place] [address] #### B12 #### [place] [address] FT4on 09-01-2024 Free T4 [Mass/Vol] 0.99 ng/dL Normal 0.76-1.46 [facility] Comment on above: Performed By: #### T SH, GFR, FT4, CBC, ADIFF, VIDH, A1C, CMP, ANEU #### [place] [address] #### B12 #### [place] [address] LABORATORYOrdered By: SYSTEM SYSTEM on 09-01-2024 25-hydroxyvitamin D3 [Mass/Vol] 48.6 ng/mL Invalid Interpretation Code AO ADM SS Comment on above: Interpretive Data: I nterpretive Values Based on Total 25(OH) Vitamin D: Deficient <20 ng/mL Insufficient 20 - <30 ng/mL Sufficient 30-100 ng/mL Albumin BCP dye [Mass/Vol] 3.5 G/dL Normal 3.4 - 4.8 G/dL AO ADM SS Albumin/Globulin [Mass ratio] 0.9 {ratio} Low 1.1 - 2.5 ratio AO ADM SS ALP [Catalytic activity/Vol] 114 U/L Normal 40 - 135 U/L AO ADM SS ALT With P-5'-P [Catalytic activity/Vol] 19 U/L Normal 14 - 59 U/L AO ADM SS AST With P-5'-P [Catalytic activity/Vol] 13 U/L Normal 10 - 40 U/L AO ADM SS Basophils (Bld) [#/Vol] 0.1 103/mcL Normal 0.0 - 0.3 10^3/mcL AO Workflow SS Basophils/100 WBC (Bld) 0.8 % Normal 0.0 - 2.5 % AO Workflow SS Bilirubin [Mass/Vol] 0.4 mg/dL Normal 0.2 - 1 .0 mg/dL AO ADM SS Comment on above: Interpretive Data: U se of this assay is not recommended for patients undergoing treatment with eltrombopag due to the potential for falsely elevated results. Calcium [Mass/Vol] 9.4 mg/dL Normal 8.4 - 10. 2 mg/dL AO ADM SS Chloride [Moles/Vol] 104 mmol/L Normal 98 - 10 7 mmol/L AO ADM SS CO2 [Moles/Vol] 29 mmol/L Normal 23 - 31 mmol/L AO ADM SS Cobalamin (Vitamin B12) [Mass/Vol] 336 pg/mL Normal 211 - 911 pg/mL AH ADM SS Creatinine [Mass/Vol] 1.37 mg/dL High 0.51 - 0.95 mg/dL AO ADM SS Electrolyte Balance 10.0 mEq/L Normal 4.0 - 15 .0 mEq/L AO ADM SS Eosinophil, Absolute 0.2 103/mcL Normal 0.0 - 0 .7 10^3/mcL AO Workflow SS Eosinophils/100 WBC (Bld) 1.7 % Normal 0.0 - 6.0 % AO Workflow SS Erythrocyte distribution width (RBC) [Ratio] 14.9 % Normal 11.5 - 15.5 % AO Workflow SS Estimated Glomerular Filtration Rate 41 ml/min/1.73sqm Invalid Interpretation Code AO Chemistry S Comment on above: Interpretive Data: Stages of Chronic Kidney Disease (CKD) Stage Description eGFR(ml/min/1.73 sq.m.) CKD 1 Normal kidney function or >=90 normal kindney function with possible kidney damage (ex. Proteinuria) CKD 2 Kidney damage with mild loss 60-89 of kidney function CKD 3a Mild to moderate loss of kidney 45-59 function CKD 3b Moderate to severe loss of 30-44 of kindey function CKD 4 Severe loss of kidney function 15-29 CKD 5 Kidney failure <15 Note: (go live 2024) the eGFR calculation was updated to the 2020 CKD-EPI creatinine equation without a race factor to calculate the eGFR results. Free T4 [Mass/Vol] 0.99 ng/dL Normal 0.76 - 1. 46 ng/dL AO ADM SS Globulin 3.9 G/dL Normal 2.7 - 4.4 G/dL AO ADM SS Glucose [Mass/Vol] 174 mg/dL High 83 - 110 mg/dL AO ADM SS Glucose [Mass/Vol] 128 mg/dL Invalid Interpretation Code AO Chemistry S Comment on above: Interpretive Data: E stimated average glucose (eAG) is a calculated value from Hemoglobin A1C and is manufacturing sales representative of the average blood glucose level in the last 2-3 month period. Normal range: less than 114 mg/dL HbA1c (Bld) [Mass fraction] 6.1 % Normal 4.3 - 6.4 % AO ADM SS Hematocrit (Bld) [Volume fraction] 42.0 % Normal 34.0 - 46.0 % AO Workflow SS Hemoglobin (Bld) [Mass/Vol] 13.9 G/dL Normal 12.0 - 16.0 G/dL AO Workflow SS Lymphocytes (Bld) [#/Vol] 2.7 103/mcL Normal 0.9 - 4.3 10^3/mcL AO Workflow SS Lymphocytes/100 WBC (Bld) 27.3 % Normal 20.0 - 40.0 % AO Workflow SS MCH (RBC) [Entitic mass] 31.3 pg Normal 27. 0 - 33.0 pg AO Workflow SS MCHC 33.0 G/dL Normal 32.0 - 36.0 G/dL AO Workflow SS MCV (RBC) [Entitic vol] 94.8 fL Normal 80.0 - 99.0 fL AO Workflow SS Monocytes (Bld) [#/Vol] 0.6 103/mcL Normal 0.1 - 1.4 10^3/mcL AO Workflow SS Monocytes/100 WBC (Bld) 5.9 % Normal 2.0 - 13.0 % AO Workflow SS Neutrophils (Bld) [#/Vol] 6.3 103/mcL Normal 2.3 - 8.1 10^3/mcL AO Workflow SS Neutrophils/100 WBC (Bld) 64.3 % Normal 50.0 - 75.0 % AO Workflow SS Platelet mean volume (Bld) [Entitic vol] 10.8 fL High 6.6 - 10.5 fL AO Workflow SS Platelets (Bld) [#/Vol] 274 103/mcL Normal 150 - 450 10^3/mcL AO Workflow SS Potassium [Moles/Vol] 3.5 mmol/L Normal 3.5 - 5.1 mmol/L AO ADM SS Protein [Mass/Vol] 7.4 G/dL Normal 6.4 - 8.2 G/dL AO ADM SS RBC (Bld) [#/Vol] 4.43 106/mcL Normal 4.10 - 5.3 0 10^6/mcL AO Workflow SS Sodium [Moles/Vol] 143 mmol/L Normal 136 - 145 mmol/L AO ADM SS TSH Qn 0.86 m[IU]/L Normal 0.36 - 3.74 mcIU/mL AO ADM SS Urea nitrogen [Mass/Vol] 22 mg/dL High 7 - 18 mg/d L AO ADM SS Urea nitrogen/Creatinine [Mass ratio] 16 ratio Normal 7 - 27 ratio AO ADM SS WBC (Bld) [#/Vol] 9.8 103/mcL Normal 4.5 - 10.8 10^3/mcL AO Workflow SS LABORATORYOrdered By: Christie Broderick on 09-01-2024 Cholesterol [Mass/Vol] 167 mg/dL Normal 0 - 2 00 mg/dL AO ADM SS Comment on above: Interpretive Data: C holesterol Reference Interval: Less than 200 Desirable 200-239 Borderline high risk 240 and above High risk Cholesterol in HDL [Mass/Vol] 42 mg/dL Normal 40 - 60 mg/dL AO ADM SS Cholesterol in LDL [Mass/Vol] 98 mg/dL Normal 0 - 130 mg/dL AO ADM SS Triglyceride [Mass/Vol] 136 mg/dL Normal 0 - 150 mg/dL AO ADM SS Comment on above: Interpretive Data: T riglyceride Reference Interval: Less than 150 Normal 150-199 Borderline high risk 200-499 High risk 500 or higher Very high risk LIPIDon 09-01-2024 Cholesterol [Mass/Vol] 167 mg/dL Normal 0-200 [facility] Comment on above: Result Comment: Chol esterol Reference Interval: Less than 200 Desirable 200-239 Borderline high risk 240 and above High risk Performed By: #### T SH, GFR, FT4, CBC, ADIFF, VIDH, A1C, CMP, ANEU #### [address] [address] #### B12 #### [address] [address] Cholesterol in HDL [Mass/Vol] 42 mg/dL Normal 40-60 [facility] Comment on above: Performed By: #### T SH, GFR, FT4, CBC, ADIFF, VIDH, A1C, CMP, ANEU #### [address] [address] #### B12 #### [address] [address] Cholesterol in LDL [Mass/Vol] 98 mg/dL Normal 0-130 [facility] Comment on above: Performed By: #### T SH, GFR, FT4, CBC, ADIFF, VIDH, A1C, CMP, ANEU #### [address] [address] #### B12 #### [address] [address] Triglyceride [Mass/Vol] 136 mg/dL Normal 0-150 [facility] Comment on above: Result Comment: Trig lyceride Reference Interval: Less than 150 Normal 150-199 Borderline high risk 200-499 High risk 500 or higher Very high risk Performed By: #### T SH, GFR, FT4, CBC, ADIFF, VIDH, A1C, CMP, ANEU #### [address] [address] #### B12 #### [address] [address] TSHon 09-01-2024 TSH Qn 0.86 m[IU]/L Normal 0.36-3.74 [facility] Comment on above: Performed By: #### U AMIMIRYAM, UA #### [place] [address] VIDHon 09-01-2024 Vit. D 25-Hydroxy 48.6 ng/mL Normal [facility] Comment on above: Result Comment: Inte rpretive Values Based on Total 25(OH) Vitamin D: Deficient <20 ng/mL Insufficient 20 - <30 ng/mL Sufficient 30-100 ng/mL Performed By: #### T SH, GFR, FT4, CBC, ADIFF, VIDH, A1C, CMP, ANEU #### [facility] [address] [place], [place] [address] #### B12 #### [facility] [address] [place] [address] LEVOFLOXACIN:SUSC:PT:ISOLATE :ORDQN:MICon 08-07-2024 levoFLOXacin TWYLA [Susc] >100,000 cfu/ml Escherichia coli [facility] Work Phone: levoFLOXacin TWYLA [Susc]on Escherichia coli Escherichia coli [facility] Work Phone: Urine Cultureon 06-03-2024 URC Escherichia coli [place] Count >100,000 Escherichia coli: REACTION Ampicillin Islt TWYLA >=32 Ampicillin+Sulbac Islt TWYLA 4 S Cefepime Islt TWYLA <=0.12 S cefTRIAXone Islt TWYLA <=0.25 S Ciprofloxacin Islt TWYLA 0.5 I B-Lactamase Extended Susc Islt NEG Gentamicin Islt TWYLA <=1 S levoFLOXacin Islt TWYLA 0.5 S Meropenem Islt TWYLA <=0.25 S Nitrofurantoin Islt TWYLA 128 R Pip+Tazo Islt TWYLA <=4 S TMP SMX Islt TWYLA >=320 R Normal [facility] Comment on above: Performed By: #### L 501.4020, L500.2500, L100.0100 #### [facility] [address] [place], [address] 12 Lead EKGon 06-01-2024 12 Lead EKG [facility] Cardiovascular Services [address] [place] [address] 12 Lead EKG 06/01/24 1119 MR#: [id number] Acct: [id number] Name: DAVID STREET Rep #: [id number] : 1950 73 From: Richie Small MD Attending Dr: Status: DEP ER Ordering Dr: Darius Ryan DO Date: 06/01/24 Location: ED Sex: F C Admitted: Test Reason : CONFUSION Blood Pressure : */* mmHG Vent. Rate : 90 BPM Atrial Rate : 90 BPM P-R Int : 174 ms QRS Dur : 98 ms QT Int : 388 ms P-R-T Axes : 70 -32 63 degrees QTcB Int : 474 ms Sinus rhythm with occasional Premature ventricular complexes Left axis deviation Low voltage QRS Cannot rule out Anterior infarct , age undetermined Abnormal ECG Confirmed by Richie Small ([id number]), technical editor MARY SAENZ ([id number]) on 06/05/2024 6:39:06 AM Referred By: Confirmed By: Richie Small 06/05/24 0639 Date Richie Small MD CC: Dr. Darius Ryan DO; Dr. Richie Heredia DO Signed Normal [facility] Absolute neutrophil countOrd ered By: Darius Ryan on 06-01-2024 Neutrophils (Bld) [#/Vol] 6.8 10*3/uL 2.0-7.7 [facility] Anion gap in Serum or Plasma Ordered By: Darius Ryan on 06-01-2024 Anion gap [Moles/Vol] 11 mmol/L 5-15 [facility] BUN/creatinine ratioOrdered By: Darius Ryan on 06-01-2024 Urea nitrogen/Creatinine [Mass ratio] 20.4 mg/mg High 10-20 [facility] Basophil percentageOrdered B y: Darius Ryan on 06-01-2024 Basophils/100 WBC (Bld) 0.5 % 0-1 [facility] Bilirubin Test strip Ql (U)O rdered By: Darius Ryan on 06-01-2024 Bilirubin Ql (U) Negative Negative [facility] Bilirubin, totalOrdered By: Darius Ryan on 06-01-2024 Bilirubin [Mass/Vol] mg/dL 0.00-1.30 [facility] CBC W/Diff, Automatedon 04-1 0-5 Absolute Lymph 2.69 X10 3/uL Normal 0.83-4.51 [facility] Comment on above: Performed By: #### L 100.0100, L500.4050 ####[facility] [address] [place], [address] Absolute Neut 6.8 X10 3/uL Normal 2.0-7.7 [facility] Comment on above: Performed By: #### L 100.0100, L500.4050 ####[facility] [address] [place], [address] Basophils/100 WBC (Bld) 0.5 % Normal 0-1 [facility] Comment on above: Performed By: #### L 100.0100, L500.4050 ####[facility] [address] [place], [address] Eosinophils/100 WBC (Bld) 2.8 % Normal 0-5 [facility] Comment on above: Performed By: #### L 100.0100, L500.4050 ####[facility] [address] [place], [address] Erythrocyte distribution width (RBC) [Ratio] 13.8 % Normal 11.6-14.6 [facility] Comment on above: Performed By: #### L 100.0100, L500.4050 ####[facility] [address] [place], [address] Hematocrit (Bld) [Volume fraction] 36.6 % Low 37-47 [facility] Comment on above: Performed By: #### L 100.0100, L500.4050 ####[facility] [address] [place], [address] Hemoglobin (Bld) [Mass/Vol] 11.8 g/dL Low 12.0-15.0 [facility] Comment on above: Performed By: #### L 100.0100, L500.4050 ####[facility] [address] [place], [address] IG% 0.500 Normal 0.0-0.9 [facility] Comment on above: Result Comment: IG% - Immature Granulocytes (promyelocytes, myelocytes and metamyelocytes) > 1% indicates that a LEFT SHIFT is Present. Performed By: #### L 100.0100, L500.4050 ####[facility] [address] [place], [address] Lymphocytes/100 WBC (Bld) 25.7 % Normal 19-41 [facility] Comment on above: Performed By: #### L 100.0100, L500.4050 ####[facility] [address] [place], [address] MCH (RBC) [Entitic mass] 31.6 pg Normal 27.0-32.0 [facility] Comment on above: Performed By: #### L 100.0100, L500.4050 ####[facility] [address] [place], [address] MCHC (RBC) [Mass/Vol] 32.2 g/dL Normal 32-36 [facility] Comment on above: Performed By: #### L 100.0100, L500.4050 ####[facility] [address] [place], [address] MCV (RBC) [Entitic vol] 98.1 fL Normal 81-99 [facility] Comment on above: Performed By: #### L 100.0100, L500.4050 ####[facility] [address] [place], [address] Monocytes/100 WBC (Bld) 5.7 % Normal 0-10 [facility] Comment on above: Performed By: #### L 100.0100, L500.4050 ####[facility] [address] [place], [address] Neutrophils/100 WBC (Bld) 64.8 % Normal 47-70 [facility] Comment on above: Performed By: #### L 100.0100, L500.4050 ####[facility] [address] [place], [address] Nucleated RBC (Bld) [#/Vol] 0 10*3/uL Normal 0-5 [facility] Comment on above: Performed By: #### L 100.0100, L500.4050 ####[facility] [address] [place], [address] Platelet mean volume (Bld) [Entitic vol] 11.4 fL Normal 6.2-12.0 [facility] Comment on above: Performed By: #### L 100.0100, L500.4050 ####[facility] [address] [place], [address] Platelets (Bld) [#/Vol] 339 10*3/uL Normal 150-450 [facility] Comment on above: Performed By: #### L 100.0100, L500.4050 ####[facility] [address] [place], [address] RBC (Bld) [#/Vol] 3.73 10*6/uL Low 4.2-5.4 [facility] Comment on above: Performed By: #### L 100.0100, L500.4050 ####[facility] [address] [place], [address] RDW SD 49.4 fl High 35.1-43.9 [facility] Comment on above: Performed By: #### L 100.0100, L500.4050 ####[facility] [address] [place], [address] WBC (Bld) [#/Vol] 10.5 10*3/uL Normal 4.4-11.0 [facility] Comment on above: Performed By: #### L 100.0100, L500.4050 ####[facility] [address] [facility] [place], [place], [address] Calcium oxalate crystals LM Ql (Urine sed)Ordered By: Darius Ryan on 06-01-2024 Urine Calcium Oxalate Crystals 1+ /hpf [facility] Carbon dioxide, total [Moles /volume] in Central venous bloodOrdered By: Darius Ryan on 06-01-2024 CO2 [Moles/Vol] 29.1 mmol/L 21.0-32.0 [facility] Chest 1 View (Portable)on Chest 1 View (Portable) [facility] Imaging Services [address] [place] [address] Chest 1 View (Portable) MR#: [id number] Acct: [id number] Name: DAVID STREET Rep #: [id number] : 1950 F 73 From: Justin Jackson MD PCP: Dr. Richie Heredia DO Status: [facility] ER Study: Chest 1 View (Portable) Date of Exam: 06/01/24 Exam# [id number] Ordering Dr: Darius Ryan DO EXAM: XR Chest, 1 View CLINICAL INDICATION: WEAKNESS TECHNIQUE: Frontal view of the chest. COMPARISON: No relevant prior studies available. FINDINGS: LUNGS AND PLEURAL SPACES: Unremarkable. No consolidation. No pneumothorax. HEART: Unremarkable. No cardiomegaly. MEDIASTINUM: Unremarkable. Normal mediastinal contour. BONES/JOINTS: Unremarkable. No acute fracture. RAD/Chest 1 View (Portable) IMPRESSION: No acute cardiopulmonary process. Reading [facility] CC: Dr. Darius Ryan DO; Dr. 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, [address] Albumin/Globulin [Mass ratio] 1.3 {ratio} Normal 0.9-2.4 [facility] Comment on above: Performed By: #### L 100.0100, L500.4050 ####[facility] [address] [place], [address] ALK PHOS 104 U/L Normal 35-104 [facility] Comment on above: Performed By: #### L 100.0100, L500.4050 ####[facility] [address] [place], [address] ALT [Catalytic activity/Vol] 17 U/L Normal <=34 [facility] Comment on above: Performed By: #### L 100.0100, L500.4050 ####[facility] [address] [place], [address] AST [Catalytic activity/Vol] 17 U/L Normal <=31 [facility] Comment on above: Performed By: #### L 100.0100, L500.4050 ####[facility] [address] [place], [address] BUN/CRE 20.4 RATIO High 10-20 [facility] Comment on above: Performed By: #### L 100.0100, L500.4050 ####[facility] [address] [place], [address] Calcium [Mass/Vol] 9.2 mg/dL Normal 7.6-11.0 [facility] Comment on above: Performed By: #### L 100.0100, L500.4050 ####[facility] [address] [place], [address] Chloride [Moles/Vol] 98 mmol/L Normal 98-108 [facility] Comment on above: Performed By: #### L 100.0100, L500.4050 ####[facility] [address] [place], [address] CO2 [Moles/Vol] 29.1 mmol/L Normal 21.0-32.0 [facility] Comment on above: Performed By: #### L 100.0100, L500.4050 ####[facility] [address] [place], [address] Creatinine [Mass/Vol] 1.63 mg/dL High 0.70-1.20 [facility] Comment on above: Performed By: #### L 100.0100, L500.4050 ####[facility] [address] [place], [address] ECRCL 35.55 ml/min Low 50-250 [facility] Comment on above: Performed By: #### L 100.0100, L500.4050 ####[facility] [address] [place], [address] GAP 11 Normal 5-15 [facility] Comment on above: Performed By: #### L 100.0100, L500.4050 ####[facility] [address] [place], [address] GFR/1.73 sq M.predicted among non-blacks MDRD (S/P/Bld) [Vol rate/Area] 33 mL/min/{1.73_m2} Low >60 [facility] Comment on above: Result Comment: mL/m in/1.73m2 CKD-EPI Creatinine Equation (2020) Performed By: #### L 100.0100, L500.4050 ####[facility] [address] [place], [address] Globulin (S) [Mass/Vol] 3.0 g/dL Normal 2.2-4.2 [facility] Comment on above: Performed By: #### L 100.0100, L500.4050 ####[facility] [address] [place], [address] Glucose [Mass/Vol] 211 mg/dL High 70-99 [facility] Comment on above: Performed By: #### L 100.0100, L500.4050 ####[facility] [address] [place], [address] Potassium [Moles/Vol] 3.4 mmol/L Normal 3.3-5.1 [facility] Comment on above: Performed By: #### L 100.0100, L500.4050 ####[facility] [address] [place], [address] Sodium [Moles/Vol] 138 mmol/L Normal 133-145 [facility] Comment on above: Performed By: #### L 100.0100, L500.4050 ####[facility] [address] [place], [address] T BILI < 0.15 Normal 0.00-1.30 [facility] Comment on above: Performed By: #### L 100.0100, L500.4050 ####[facility] [address] [place], [address] T PROT 6.7 g/dL Normal 5.9-8.4 [facility] Comment on above: Performed By: #### L 100.0100, L500.4050 ####[facility] [address] [place], [address] Urea nitrogen [Mass/Vol] 33 mg/dL High 4-19 [facility] Comment on above: Performed By: #### L 100.0100, L500.4050 ####[facility] [address] [place], [address] Emergency Department Summary on 06-01-2024 Emergency Department Summary [facility] Medical Records Department [address] [place] [address] Emergency Department Summary 06/01/24 MR#: [id number] Acct: [id number] Name: DAVID STREET Rep #: [id number] : 1950 73 From: Darius Ryan DO PCP: Dr. Richie Heredia DO Status:DEP ER Location: ED HPI History of Present Illness Chief Complaint: Weakness Informant: patient Narrative Narrative: 73-year-old female presenting to the emergency room with weakness. Patient states she got up to use the bathroom the middle of the night and felt like her legs were shaky and she felt weak. She states that her home advisor came this morning and she was very shaky when she tried to get out of the chair. Therefore EMS was called. She denies any fevers nausea vomiting diarrhea change in cough chest pains. She does note that occasionally her voice goes a week when she talks. She denies new medications. She states that she does not have any urinary symptoms but her doctor tells her that her urine is contaminated whenever she tries to give a specimen. [facility] Medical History Morbid obesity HTN (hypertension) Urinary, incontinence, stress female Tobacco abuse disorder Obesity Hypercholesteremia Peripheral vascular disease Palpitations Vertigo Osteoarthritis Diabetes mellitus type 2 in obese Paroxysmal atrial fibrillation Obstructive sleep apnea Home Medications ???Medication ???Instructions ???Recorded ???Last Taken ???Type aspirin 81 mg tablet,delayed 81 mg PO DAILY [facility] 01/26/23 Rx release tabs albuterol sulfate 90 mcg/actuation 2 puff inhalation Q4H SHORTNESS OF 01/27/23 01/26/23 History aerosol inhaler BREATH bumetanide 1 mg tablet 1 mg PO Q12H EDEMA 01/27/23 History calcium 600 mg (as 1 tab PO BID SUPPLEMENT 01/27/23 1 03/29/22 History carbonate)-vitamin D3 10 mcg (400 unit) tablet fluticasone fur. 100 mcg-umeclid 1 inh inhalation DAILY SHORTNESS 1 03/30/22 01/26/23 History 62.5 mcg-vilant 25 mcg OF BREATH/WHEEZING inhalat.powder (Trelegy Ellipta) pravastatin 40 mg tablet 40 mg PO QPM CHOLESTEROL 01/27/23 01/26/23 History metoprolol succinate 50 mg 50 mg PO DAILY blood pressure 08/15 Unknown History tablet,extended release 24 hr acetaminophen 500 mg tablet 1,000 mg (2 x 500 mg) PO Q8 #0 tab s 08/31/23 Unknown Rx apixaban 5 mg tablet (Eliquis) 5 mg PO BID 03/09/24 Unknown Histo ry empagliflozin 25 mg tablet 25 mg PO DAILY 03/09/24 Unknown Hi story (Jardiance) gabapentin 400 mg capsule 400 mg PO Q12H 03/09/24 Unknown Hi story levothyroxine 75 mcg tablet 75 mcg PO DAILY 03/09/24 Unknown H istory meloxicam 7.5 mg tablet 7.5 mg PO DAILY 03/09/24 Unknown H istory metformin 500 mg tablet,extended 500 mg PO DAILY 03/09/24 Unknown H istory release 24 hr mupirocin 2 % topical ointment 1 applic topical DAILY 03/09/24 Un known History nystatin 100,000 unit/gram topical 1 applic topical BID PRN rash Unknown History powder (Nyamyc) oxycodone-acetaminop hen 5 mg-325 1 tab PO Q6H PRN pain 03/09/24 Unk nown History mg tablet ropinirole 0.5 mg tablet 1 mg PO QHS 03/09/24 Unknown Histo ry venlafaxine 225 mg tablet,extended 225 mg PO DAILY 03/09/24 Unknown History release 24 hr vitamin B complex 1 tab PO DAILY 06/01/24 Unknown Hi story Allergy/AdvReac Type Severity Reaction Status Date / Time ampicillin Allergy Hives Verified 06/01/24 10:49 codeine Allergy Hives Verified 06/01/24 10:49 meperidine HCl (From Demerol) Allergy Hives Verified 06/01/24 10:49 Penicillins (PCN) Allergy Hives Verified 06/01/24 10:49 propoxyphene napsylate (From Allergy Hives Verified 06/01/24 10:49 Darvocet-N) Family History Mother Heart disease Brother Heart disease Grandfather CVA (cerebral vascular accident) Grandmother Myocardial infarction Surgical History History of laparoscopic cholecystectomy ( 11/2019) History of lumpectomy of both breasts History of cardiac catheterization History of knee replacement History of hysterectomy History of tubal ligation History of appendectomy Social History Smoking Status: Former smoker alcohol intake: never substance use type: does not use caffeine: Yes Type: coffee Number of servings: 5 ROS ROS ED ROS Narrative Generalized weakness and jittery Constitutional Constitutional ED: Denies chills or weight loss Eyes Eyes: Denies change in vision or diplopia ENT ENT ED: Denies ear pain, rhinorrhea or sore throat Cardiovascular Cardiovascular: Denies chest pain, orthopnea, palpitation (more content not included)... Normal [facility] Eosinophil percentageOrdered By: Darius Ryan on 06-01-2024 Eosinophils/100 WBC (Bld) 2.8 % 0-5 [facility] Epithelial cells.renal LM.HP F (Urine sed) [#/Area]Ordered By: Darius Ryan on 06-01-2024 Urine Renal Epithelial Cells 0-5 SEEN /hpf 0-5 [facility] Epithelial cells.squamous LM Ql (Urine sed)Ordered By: Darius Ryan on 06-01-2024 Epithelial cells.squamous LM.HPF (Urine sed) [#/Area] 0 /[HPF] 5-10 [facility] Erythrocyte distribution wid th (RBC) [Ratio]Ordered By: Darius Ryan on 06-01-2024 Erythrocyte distribution width (RBC) [Entitic vol] 49.4 fL High 35.1-43.9 [facility] Erythrocyte distribution wid th ratioOrdered By: Darius Ryan on 06-01-2024 Erythrocyte distribution width (RBC) [Ratio] 13.8 % 11.6-14.6 [facility] Estimation of creatinine crissy aranceOrdered By: Darius Ryan on 06-01-2024 Estimated Creatinine Clearance Calc 35.55 ml/min Low 50-250 [facility] GFR/1.73 sq M.predicted olga g non-blacks MDRD (S/P/Bld) [Vol rate/Area]Ordered By: Darius Ryan on 06-01-2024 Estimated GFR (MDRD) Non-Af Amer 33 Low >60 [facility] Comment on above: mL/min/1.73m2 CKD-EP I Creatinine Equation (2020) Glucose Ql (U)Ordered By: Reymundo Ryan on 06-01-2024 Glucose (U) [Mass/Vol] 1000 mg/dL High Normal [facility] Hematocrit Auto (Bld) [Volum e fraction]Ordered By: Darius Ryan on 06-01-2024 Hematocrit (Bld) [Volume fraction] 36.6 % Low 37-47 [facility] Hemoglobin measurementOrdere d By: Darius Ryan on 06-01-2024 Hemoglobin (Bld) [Mass/Vol] 11.8 g/dL Low 12.0-15.0 [facility] Immature granulocytes/100 WB C Auto (Bld)Ordered By: Darius Ryan on 06-01-2024 Immature granulocytes/100 WBC (Bld) 0.500 % 0.0-0.9 [facility] Comment on above: IG% - Immature Granu locytes (promyelocytes, myelocytes and metamyelocytes) > 1% indicates that a LEFT SHIFT is Present. Influenza virus A and B and SARS-CoV-2 (COVID-19) and Respiratory syncytial virus RNAOrdered By: Darius Ryan on 06-01-2024 SARS-CoV-2 (COVID-19) RNA IVAN+probe Ql (Unsp spec) [facility] Ketones Test strip Ql (U)Ord ered By: Darius Ryan on 06-01-2024 Ketones Ql (U) Negative Negative [facility] - Chemistry and C hemistry - challengeOrdered By: Darius Ryan on 06-01-2024 AST [Catalytic activity/Vol] 17 U/L <32 [facility] Lymphocytes Auto (Unsp spec) [#/Vol]Ordered By: Darius Ryan on 06-01-2024 Lymphocytes (Bld) [#/Vol] 2.69 10*3/uL 0.83-4.51 [facility] Lymphocytes/100 WBC Auto (Un sp spec)Ordered By: Darius Ryan on 06-01-2024 Lymphocytes/100 WBC (Bld) 25.7 % 19-41 [facility] M100.678on 06-01-2024 M100.678 Normal Reference Range = Negative FLUABV+SARS-CoV-2+RS V Pnl Resp IVAN+probe GeneXpert Instrument, PCR method SARS-CoV-2 (COVID 19) Negative INFLUENZA A Negative INFLUENZA B Negative RSV PCR Negative Normal [facility] Comment on above: Performed By: #### L 501.4020, L500.2500, L100.0100 #### [facility] [address] [place], [address] MCV (mean corpuscular volume ) determinationOrdered By: Darius Ryan on 06-01-2024 MCV (RBC) [Entitic vol] 98.1 fL 81-99 [facility] Mean corpuscular hemoglobin (MCH) determinationOrdered By: Darius Ryan on 06-01-2024 MCH (RBC) [Entitic mass] 31.6 pg 27.0-32.0 [facility] Mean corpuscular hemoglobin concentration (MCHC) determinationOrdered By: Darius Ryan on 06-01-2024 MCHC (RBC) [Mass/Vol] 32.2 g/dL 32-36 [facility] Mean platelet volume determi nationOrdered By: Darius Ryan on 06-01-2024 Platelet mean volume (Bld) [Entitic vol] 11.4 fL 6.2-12.0 [facility] Microscopic analysis of urin e for red blood cells (RBC)Ordered By: Darius Ryan on 06-01-2024 Urine RBC 0-5 SEEN /hpf 0-5 [facility] Monocyte percentageOrdered B y: Darius Ryan on 06-01-2024 Monocytes/100 WBC (Bld) 5.7 % 0-10 [facility] Mucus LM Ql (Urine sed)Order ed By: Darius Ryan on 06-01-2024 Mucus Ql (Urine sed) 0 SEEN /hpf [facility] Neutrophil percentageOrdered By: Darius Ryan on 06-01-2024 Neutrophils/100 WBC (Bld) 64.8 % 47-70 [facility] Nitrite Test strip Ql (U)Ord ered By: Darius Ryan on 06-01-2024 Nitrite Ql (U) Positive High Negative [facility] Nucleated red blood cell per centageOrdered By: Darius Ryan on 06-01-2024 Nucleated RBC/100 WBC (Bld) [Ratio] 0 % 0-5 [facility] Platelet countOrdered By: Reymundo Ryan on 06-01-2024 Platelets (Bld) [#/Vol] 339 10*3/uL 150-450 [facility] Potassium (Unsp spec) [Mass/ Vol]Ordered By: Darius Ryan on 06-01-2024 Potassium [Moles/Vol] 3.4 mmol/L 3.3-5.1 [facility] Protein Test strip Ql (U)Ord ered By: Darius Ryan on 06-01-2024 Protein Ql (U) Negative Negative [facility] RBC Auto (Bld) [#/Vol]Ordere d By: Darius Ryan on 06-01-2024 RBC (Bld) [#/Vol] 3.73 10*6/uL Low 4.2-5.4 [facility] Serum creatinine measurement (mass/volume)Ordered By: Darius Ryan on 06-01-2024 Creatinine [Mass/Vol] 1.63 mg/dL High 0.70-1.20 [facility] Serum globulin measurementOr dered By: Darius Ryan on 06-01-2024 Globulin (S) [Mass/Vol] 3.0 g/dL 2.2-4.2 [facility] Serum glucose measurement (m ass/volume)Ordered By: Darius Ryan on 06-01-2024 Glucose [Mass/Vol] 211 mg/dL High 70-99 [facility] Serum or plasma alanine lawson otransferase (ALT) measurementOrdered By: Darius Ryan on 06-01-2024 ALT [Catalytic activity/Vol] 17 U/L <35 [facility] Serum or plasma albumin brittny urement (mass/volume)Ordered By: Darius Ryan on 06-01-2024 Albumin [Mass/Vol] 3.7 g/dL 3.4-4.8 [facility] Serum or plasma albumin/glob ulin mass ratioOrdered By: Darius Ryan on 06-01-2024 Albumin/Globulin [Mass ratio] 1.3 {ratio} 0.9-2.4 [facility] Serum or plasma alkaline ghazala sphatase measurementOrdered By: Darius Ryan on 06-01-2024 ALP [Catalytic activity/Vol] 104 U/L 35-104 [facility] Serum or plasma calcium brittny urement (mass/volume)Ordered By: Darius Ryan on 06-01-2024 Calcium [Mass/Vol] 9.2 mg/dL 7.6-11.0 [facility] Serum or plasma urea nitroge n measurement (mass/volume)Ordered By: Darius Ryan on 06-01-2024 Urea nitrogen [Mass/Vol] 33 mg/dL High 4-19 [facility] Sodium levelOrdered By: Jason Ryan on 06-01-2024 Sodium [Moles/Vol] 138 mmol/L 133-145 [facility] Total proteinOrdered By: Bruce Ryan on 06-01-2024 Protein [Mass/Vol] 6.7 g/dL 5.9-8.4 [facility] Urinalysis, Completeon 06-01 BACTERIA 1+ /hpf Normal None Seen [facility] Comment on above: Order Comment: AUDREY TER SPECIMEN Performed By: #### L [id number] ####[facility] [address] [place], [place], [id number] EPI,RENAL 0-5 SEEN Normal 0-5 [facility] Comment on above: Order Comment: AUDREY TER SPECIMEN Performed By: #### L [id number] ####[facility] [address] [place], [address] RBC 0-5 SEEN Normal 0-5 [facility] Comment on above: Order Comment: AUDREY TER SPECIMEN Performed By: #### L [id number] ####[facility] [address] [place], [address] WBC 0-5 SEEN Normal 0-5 [facility] Comment on above: Order Comment: AUDREY TER SPECIMEN Performed By: #### L [id number] ####[facility] [address] [place], [address] CA OX CRYSTAL 1+ /hpf Normal [facility] Comment on above: Order Comment: AUDREY TER SPECIMEN Performed By: #### L [id number] ####[facility] [address] [place], [address] EPI,SQUAMOUS 0 SEEN Normal 5-10 [facility] Comment on above: Order Comment: AUDREY TER SPECIMEN Performed By: #### L [id number] ####[facility] [address] [place], [address] Mucus Ql (Urine sed) 0 SEEN Normal [facility] Comment on above: Order Comment: AUDREY TER SPECIMEN Performed By: #### L [id number] ####[facility] [address] [place], [address] Urine blood detectionOrdered By: Daruis Ryan on 06-01-2024 Urine Occult Blood 10 /ul High Negative [facility] Urine clarityOrdered By: Bruce Ryan on 06-01-2024 Clarity (U) Cloudy Clear [facility] Urine color determinationOrd ered By: Darius Ryan on 06-01-2024 Color (U) Straw Yellow [facility] Urine leukocyte esterase det ection by dipstickOrdered By: Darius Ryan on 06-01-2024 Leukocyte esterase Test strip Ql (U) 100 /ul High Negative [facility] Urine pHOrdered By: Darius jennings on 06-01-2024 pH (U) 5.0 [pH] 5.0 - 8.0 [facility] Urine sediment bacteria coun t by microscopy (number/high power field)Ordered By: Darius Ryan on 06-01-2024 Bacteria LM.HPF (Urine sed) [#/Area] 1 /[HPF] None Seen [facility] Urine specific gravity measu rementOrdered By: Darius Ryan on 06-01-2024 Specific gravity (U) [Rel density] 1.010 1.002-1.030 [facility] Urobilinogen Ql (U)Ordered B y: Darius Ryan on 06-01-2024 Urine Urobilinogen Normal mg/dl Normal [facility] White blood cell (WBC) count Ordered By: Darius Ryan on 06-01-2024 WBC (Bld) [#/Vol] 10.5 10*3/uL 4.4-11.0 [facility] White blood cell countOrdere d By: Darius Ryan on 06-01-2024 Urine WBC 0-5 SEEN /hpf 0-5 [facility] MALBRon 05-05-2024 U Ratio Alb/Cre 61 mg/G High 0-30 [facility] Comment on above: Performed By: #### U AMICAO, UA #### [place] [address] .Urinalysis Microscopic (AO) on 04-20-2024 UA Bacteria 3+ /hpf Abnormal [facility] Comment on above: Performed By: #### U AMICAO, UA #### [place] [address] UA RBC 0-5 Abnormal None Seen [facility] Comment on above: Performed By: #### U AMICAO, UA #### [address] [address] UA Squam Epithelial 5-10 Abnormal None Seen [facility] Comment on above: Performed By: #### U AMICAO, UA #### [place] [address] UA WBC LOADED Abnormal None Seen [facility] Comment on above: Performed By: #### U AMICAO, UA #### [place] [id number] LABORATORYOrdered By: Kristie Hollis on 04-20-2024 Appearance (U) Cloudy *ABN* (04/20/24 3:32 PM) Invalid Interpretation Code Clear AO Auto Urine SS Bacteria LM.HPF (Urine sed) [#/Area] 3 /[HPF] Invalid Interpretation Code AO Auto Urine SS Bilirubin Ql (U) Negative (04/20/24 3:32 PM) Normal Negative AO Auto Urine SS Color (U) Yellow (04/20/24 3:32 PM) Normal AO Auto Urine SS Glucose Test strip (U) [Mass/Vol] >=1000 mg/dL Invalid Interpretation Code Negative AO Auto Urine SS Hemoglobin Auto test strip (U) [Mass/Vol] Trace *ABN* (04/20/24 3:32 PM) Invalid Interpretation Code Negative AO Auto Urine SS Ketones Ql (U) Negative Normal Negative AO Auto Urine SS UA Leuk Est Small *ABN* (04/20/24 3:32 PM) Invalid Interpretation Code Negative AO Auto Urine SS UA Nitrite Positive *ABN* (04/20/24 3:32 PM) Invalid Interpretation Code Negative AO Auto Urine SS UA pH 6.5 (04/20/24 3:32 PM) Normal 5.0 - 8.0 AO Auto Urine SS UA Protein Negative Normal Negative AO Auto Urine SS UA RBC 0-5 /HPF Invalid Interpretation Code None Seen AO Auto Urine SS UA Spec Grav 1.015 (04/20/24 3:32 PM) Normal 1.015-1.025 AO Auto Urine SS UA Specimen Type Clean Catch (04/20/24 3:32 PM) Normal AO Auto Urine SS UA Squam Epithelial 5-10 /HPF Invalid Interpretation Code None Seen AO Auto Urine SS UA Urobilinogen 0.2 E.U./dL Normal 0.2-1.0 AO Auto Urine SS WBC LM.HPF (Urine sed) [#/Area] LOADED /HPF Invalid Interpretation Code None Seen AO Auto Urine SS No Panel Informationon 04-20 Culture Urine >100,000 cfu/ml Multiple bacterial morphotypes present. Probable Contamination. Suggest recollection if clinically indicated. [facility] Work Phone: UAon 04-20-2024 Color (U) Yellow Normal [facility] Comment on above: Performed By: #### U TEEO, UA #### [address] [address] Glucose (U) [Mass/Vol] mg/dL Abnormal Negative [facility] Comment on above: Performed By: #### U AMICAO, UA #### [address] [address] Ketones Ql (U) Negative Normal Negative [facility] Comment on above: Performed By: #### U AMICAO, UA #### [place] [address] UA Appear Cloudy Abnormal Clear [facility] Comment on above: Performed By: #### U AMICAO, UA #### [place] [address] UA Blood Trace Abnormal Negative [facility] Comment on above: Performed By: #### U AMICAO, UA #### [place] [address] UA Leuk Est Small Abnormal Negative [facility] Comment on above: Performed By: #### U AMICAO, UA #### [place] [address] UA Nitrite Positive Abnormal Negative [facility] Comment on above: Performed By: #### U AMICAO, UA #### [place] [address] UA pH 6.5 Normal 5.0 - 8.0 [facility] Comment on above: Performed By: #### U AMICAO, UA #### [address] [address] UA Protein Negative Normal Negative [facility] Comment on above: Performed By: #### U AMICAO, UA #### [place] [address] UA Spec Grav 1.015 Normal 1.015-1.025 [facility] Comment on above: Performed By: #### U AMICAO, UA #### [place] [address] UA Specimen Type Clean Catch Normal [facility] Comment on above: Performed By: #### U AMICAO, UA #### [place] [address] UA Urobilinogen 0.2 E.U./dL Normal 0.2-1.0 [facility] Comment on above: Performed By: #### U AMICAO, UA #### [place] [address] Urobilinogen (U) [Mass/Vol] Negative Normal Negative [facility] Comment on above: Performed By: #### U AMICAO, UA #### [place] [address] MALBRon 03-31-2024 U Creatinine 71.3 mg/dL Normal [facility] Comment on above: Performed By: #### U AMICAO, UA #### [place] [address] U Microalb 43.7 mg/L Normal [facility] Comment on above: Performed By: #### U AMICAO, UA #### [place] [address] .Urinalysis Microscopic (AO) on 03-27-2024 UA Bacteria 1+ /hpf Abnormal [facility] Comment on above: Performed By: #### U AMICAO, UA #### [place] [address] UA RBC LOADED Abnormal None Seen [facility] Comment on above: Performed By: #### U AMICAO, UA #### [address] [address] UA Squam Epithelial None Seen Normal None Seen [facility] Comment on above: Performed By: #### U AMICAO, UA #### [place] [address] UA WBC 5-10 Abnormal None Seen [facility] Comment on above: Performed By: #### U AMICAO, UA #### [place] [address] [place], [place] [address] LABORATORYOrdered By: Pancho Luna on 03-27-2024 Appearance (U) Cloudy *ABN* (03/27/24 10:32 PM) Invalid Interpretation Code Clear AO Auto Urine SS Bacteria LM.HPF (Urine sed) [#/Area] 1 /[HPF] Invalid Interpretation Code AO Auto Urine SS Bilirubin Ql (U) Negative (03/27/24 10:32 PM) Normal Negative AO Auto Urine SS Color (U) Brown *ABN* (03/27/24 10:32 PM) Invalid Interpretation Code AO Auto Urine SS Glucose Test strip (U) [Mass/Vol] >=1000 mg/dL Invalid Interpretation Code Negative AO Auto Urine SS Hemoglobin Auto test strip (U) [Mass/Vol] Large *ABN* (03/27/24 10:32 PM) Invalid Interpretation Code Negative AO Auto Urine SS Ketones Ql (U) Negative Normal Negative AO Auto Urine SS UA Leuk Est Trace *ABN* (03/27/24 10:32 PM) Invalid Interpretation Code Negative AO Auto Urine SS UA Nitrite Positive *ABN* (03/27/24 10:32 PM) Invalid Interpretation Code Negative AO Auto Urine SS UA pH 5.5 (03/27/24 10:32 PM) Normal 5.0 - 8.0 AO Auto Urine SS UA Protein >=300 mg/dL Invalid Interpretation Code Negative AO Auto Urine SS UA RBC LOADED /HPF Invalid Interpretation Code None Seen AO Auto Urine SS UA Spec Grav 1.015 (03/27/24 10:32 PM) Normal 1.015-1.025 AO Auto Urine SS UA Specimen Type Void (03/27/24 10:32 PM) Normal AO Auto Urine SS UA Squam Epithelial None Seen /HPF Normal None Seen A O Auto Urine SS UA Urobilinogen 1.0 E.U./dL Normal 0.2-1.0 AO Auto Urine SS WBC LM.HPF (Urine sed) [#/Area] 5-10 /HPF Invalid Interpretation Code None Seen AO Auto Urine SS UAon 03-27-2024 Color (U) Brown Abnormal [facility] Comment on above: Performed By: #### U PARVEZ UA #### [place] [address] [place], [place] [address] Glucose (U) [Mass/Vol] mg/dL Abnormal Negative [facility] Comment on above: Performed By: #### U AMICAO, UA #### [place] [address] Ketones Ql (U) Negative Normal Negative [facility] Comment on above: Performed By: #### U AMICAO, UA #### [place] [address] UA Appear Cloudy Abnormal Clear [facility] Comment on above: Performed By: #### U AMICAO, UA #### [address] [address] UA Blood Large Abnormal Negative [facility] Comment on above: Performed By: #### U AMICAO, UA #### [place] [address] UA Leuk Est Trace Abnormal Negative [facility] Comment on above: Performed By: #### U AMICAO, UA #### [place] [address] UA Nitrite Positive Abnormal Negative [facility] Comment on above: Performed By: #### U AMICAO, UA #### [place] [address] UA pH 5.5 Normal 5.0 - 8.0 [facility] Comment on above: Performed By: #### U AMICAO, UA #### [place] [address] UA Protein >=300 Abnormal Negative [facility] Comment on above: Performed By: #### U AMICAO, UA #### [place] [address] UA Spec Grav 1.015 Normal 1.015-1.025 [facility] Comment on above: Performed By: #### U AMICAO, UA #### [place] [address] UA Specimen Type Void Normal [facility] Comment on above: Performed By: #### U AMICAO, UA #### [facility] [address] [place], [place] [address] UA Urobilinogen 1.0 E.U./dL Normal 0.2-1.0 [facility] Comment on above: Performed By: #### U AMICAO, UA #### [facility] [address] [place], [place] [address] Urobilinogen (U) [Mass/Vol] Negative Normal Negative [facility] Comment on above: Performed By: #### U AMICAO, UA #### [facility] [address] [place], [place] [address] L501.4020on 03-10-2024 TROPONIN-I HS 17 pg/mL Normal 3.0-54.0 [facility] Comment on above: Order Comment: 'TROP ' Serial specimen #1, #2 or #3: 2 Result Comment: Pledena feng Note: New Test Units and Gender Specific Reference Ranges. For more information see Policy Stat Procedure [place] High Sensitivity Troponin (TNIH) and attachments. Performed By: #### L [id number] ####[facility] [address] [place], [address] Troponin IOrdered By: Hunter cao on 03-10-2024 Troponin I High Sensitivity 17 pg/mL 3.0-54.0 [facility] Comment on above: Please Note: New Alanis t Units and Gender Specific Reference Ranges. For more information see Policy Stat Procedure [place] High Sensitivity Troponin (TNIH) and attachments. Absolute neutrophil countOrd ered By: Hunter Ryan on 03-09-2024 Neutrophils (Bld) [#/Vol] 8.8 10*3/uL High 2.0-7.7 [facility] BNP (brain natriuretic pepti de measurement)Ordered By: Hunter Ryan on 03-09-2024 Natriuretic peptide B (Bld) [Mass/Vol] 49.2 pg/mL 0-100 [facility] BNP,B-Type NATRIURETIC PEPTI Rory 03-09-2024 Natriuretic peptide B (Bld) [Mass/Vol] 49.2 pg/mL Normal 0-100 [facility] Comment on above: Performed By: #### L 501.080 #### [facility] [address] [place], [address] Basic Metabolic Profile (BMP )on 03-09-2024 BUN/CRE 13.7 RATIO Normal 10-20 [facility] Comment on above: Order Comment: 'TROP ' Serial specimen #1, #2 or #3: 1 Performed By: #### L 501.080 #### [facility] [address] [place], [address] CA,Total 9.9 mg/dL Normal 8.5-10.1 [facility] Comment on above: Order Comment: 'TROP ' Serial specimen #1, #2 or #3: 1 Performed By: #### L 501.080 #### [facility] [address] [place], [address] Chloride [Moles/Vol] 102 mmol/L Normal 98-107 [facility] Comment on above: Order Comment: 'TROP ' Serial specimen #1, #2 or #3: 1 Performed By: #### L 501.080 #### [facility] [address] [place], [address] CO2 [Moles/Vol] 28.0 mmol/L Normal 21.0-32.0 [facility] Comment on above: Order Comment: 'TROP ' Serial specimen #1, #2 or #3: 1 Performed By: #### L 501.080 #### [facility] [address] [place], [address] Creatinine [Mass/Vol] 1.46 mg/dL High 0.55-1.02 [facility] Comment on above: Order Comment: 'TROP ' Serial specimen #1, #2 or #3: 1 Result Comment: The validity of the calculated GFR GFRAA in patients over 70 years has not been determined. Clinical correlation is essential. Performed By: #### L 501.080 #### [facility] [address] [place], [address] ECRCL 37.51 ml/min Normal [facility] Comment on above: Order Comment: 'TROP ' Serial specimen #1, #2 or #3: 1 Performed By: #### L 501.080 #### [facility] [address] [place], [address] EST GFR - AA 45 mL/min Low >60 [facility] Comment on above: Order Comment: 'TROP ' Serial specimen #1, #2 or #3: 1 Result Comment: Afri can Latvian GFR Calc Performed By: #### L 501.080 #### [facility] [address] [place], [address] GAP 7 Normal 5-15 [facility] Comment on above: Order Comment: 'TROP ' Serial specimen #1, #2 or #3: 1 Performed By: #### L 501.080 #### [facility] [address] [place], [address] GFR/1.73 sq M.predicted among non-blacks MDRD (S/P/Bld) [Vol rate/Area] 37 mL/min/{1.73_m2} Low >60 [facility] Comment on above: Order Comment: 'TROP ' Serial specimen #1, #2 or #3: 1 Result Comment: Non- GFR Calc Performed By: #### L 501.080 #### [facility] [address] [place], [address] Glucose [Mass/Vol] 171 mg/dL High 74-106 [facility] Comment on above: Order Comment: 'TROP ' Serial specimen #1, #2 or #3: 1 Result Comment: Fast ing Glucose result greater than or equal to 126 mg/dL suggests DIABETES MELLITUS per A.D.A. criteria. Performed By: #### L 501.080 #### [facility] [address] [place], [address] Potassium [Moles/Vol] 3.8 mmol/L Normal 3.5-5.1 [facility] Comment on above: Order Comment: 'TROP ' Serial specimen #1, #2 or #3: 1 Result Comment: Mode rate Hemolysis, Result may be falsely increased. Performed By: #### L 501.080 #### [facility] [address] [place], [address] Sodium [Moles/Vol] 137 mmol/L Normal 136-145 [facility] Comment on above: Order Comment: 'TROP ' Serial specimen #1, #2 or #3: 1 Performed By: #### L 501.080 #### [facility] [address] [place], [address] Urea nitrogen [Mass/Vol] 20 mg/dL High 7-18 [facility] Comment on above: Order Comment: 'TROP ' Serial specimen #1, #2 or #3: 1 Performed By: #### L 501.080 #### [facility] [address] [place], [address] Basophil percentageOrdered B y: Hunter Ryan on 03-09-2024 Basophils/100 WBC (Bld) 0.8 % 0-1 [facility] Blood urea nitrogen (BUN)/cr eatinine ratioOrdered By: Hunter Ryan on 03-09-2024 Urea nitrogen/Creatinine [Mass ratio] 13.7 mg/mg 10-20 [facility] CBC W/Diff, Automatedon 02-22 Absolute Lymph 3.14 X10 3/uL Normal 0.83-4.51 [facility] Comment on above: Performed By: #### L 501.080 #### [facility] [address] [place], [address] Absolute Neut 8.8 X10 3/uL High 2.0-7.7 [facility] Comment on above: Performed By: #### L 501.080 #### [facility] [address] [place], [address] Basophils/100 WBC (Bld) 0.8 % Normal 0-1 [facility] Comment on above: Performed By: #### L [id number] #### [facility] [address] [place], [address] Eosinophils/100 WBC (Bld) 0.8 % Normal 0-5 [facility] Comment on above: Performed By: #### L [id number] #### [facility] [address] [place], [address] Erythrocyte distribution width (RBC) [Ratio] 14.0 % Normal 11.6-14.6 [facility] Comment on above: Performed By: #### L [id number] #### [facility] [address] [place], [address] Hematocrit (Bld) [Volume fraction] 44.8 % Normal 37-47 [facility] Comment on above: Performed By: #### L 501.080 #### [facility] [address] [place], [address] Hemoglobin (Bld) [Mass/Vol] 14.9 g/dL Normal 12.0-15.0 [facility] Comment on above: Performed By: #### L 501.080 #### [facility] [address] [place], [address] IG% 0.800 Normal 0.0-0.9 [facility] Comment on above: Result Comment: IG% - Immature Granulocytes (promyelocytes, myelocytes and metamyelocytes) > 1% indicates that a LEFT SHIFT is Present. Performed By: #### L 501.080 #### [facility] [address] [place], [address] Lymphocytes/100 WBC (Bld) 23.9 % Normal 19-41 [facility] Comment on above: Performed By: #### L 501.080 #### [facility] [address] [place], [address] MCH (RBC) [Entitic mass] 32.0 pg Normal 27.0-32.0 [facility] Comment on above: Performed By: #### L [id number] #### [facility] [address] [place], [address] MCHC (RBC) [Mass/Vol] 33.3 g/dL Normal 32-36 [facility] Comment on above: Performed By: #### L [id number] #### [facility] [address] [place], [address] MCV (RBC) [Entitic vol] 96.3 fL Normal 81-99 [facility] Comment on above: Performed By: #### L 501.080 #### [facility] [address] [place], [address] Monocytes/100 WBC (Bld) 6.5 % Normal 0-10 [facility] Comment on above: Performed By: #### L 501.080 #### [facility] [address] [place], [address] Neutrophils/100 WBC (Bld) 67.2 % Normal 47-70 [facility] Comment on above: Performed By: #### L 501.080 #### [facility] [address] [place], [address] Nucleated RBC (Bld) [#/Vol] 0 10*3/uL Normal 0-5 [facility] Comment on above: Performed By: #### L 501.080 #### [facility] [facility] [address] [place], [address] Platelet mean volume (Bld) [Entitic vol] 11.7 fL Normal 6.2-12.0 [facility] Comment on above: Performed By: #### L 501.080 #### [facility] [address] [place], [address] Platelets (Bld) [#/Vol] 332 10*3/uL Normal 150-450 [facility] Comment on above: Performed By: #### L 501.080 #### [facility] [address] [place], [address] RBC (Bld) [#/Vol] 4.65 10*6/uL Normal 4.2-5.4 [facility] Comment on above: Performed By: #### L 501.080 #### [facility] [address] [place], [address] RDW SD 49.6 fl High 35.1-43.9 [facility] Comment on above: Performed By: #### L 501.080 #### [facility] [address] [place], [address] WBC (Bld) [#/Vol] 13.1 10*3/uL High 4.4-11.0 [facility] Comment on above: Performed By: #### L 501.080 #### [facility] [address] [place], [address] Carbon dioxide measurementOr dered By: Hunter Ryan on 03-09-2024 CO2 [Moles/Vol] 28.0 mmol/L 21.0-32.0 [facility] Chest 1 View (Portable)on Chest 1 View (Portable) [facility] Imaging Services [address] [place] [address] Chest 1 View (Portable) MR#: [id number] Acct: [id number] Name: DAVID STREET Rep #: [id number] : 1950 F 73 From: Perez Khoury MD PCP: Dr. Richie Heredia, DO Status: [facility] ER Study: Chest 1 View (Portable) Date of Exam: 03/09/24 Exam# [id number] Ordering Dr: Hunter Ryan MD [id number] EXAM: XR CHEST, 1 VIEW CLINICAL INDICATION: Shortness of breath TECHNIQUE: Frontal view of the chest. COMPARISON: 02/21/2024 FINDINGS: LUNGS AND PLEURAL SPACES: There is a calcified granuloma in the left midlung. No pneumothorax. No effusion. HEART: Unremarkable. Cardiac silhouette not enlarged. MEDIASTINUM: Central airways and mediastinal contour are unremarkable. BONES/JOINTS: Unremarkable. No acute fracture. SOFT TISSUES: Unremarkable. RAD/Chest 1 View (Portable) IMPRESSION: No acute findings in the chest. Electronically Signed: Perez Khoury MD at 23:34 EST , CC: Dr. Hunter Ryan MD; Dr. 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 Richie Heredia, Status:REG ER Location: ED HPI History of Present Illness Chief Complaint: Shortness of Breath Narrative Narrative: 73-year-old female past medical history of COPD presents via EMS with 1 hour of shortness of breath. She states it was sudden onset. Of note, she states she was also seen in the emergency department about a week ago for COPD and was discharged home. She has multiple somatic complaints. She states has been out of aerosol treatments for at least a month. She quit smoking a year ago. She has oxygen at home which she wears as needed but mostly during the day. States she has been coughing, sometimes productive. She has chest tightness as well. No exacerbating or alleviating factors. PFS PFSH Medical History Morbid obesity HTN (hypertension) Urinary, incontinence, stress female Tobacco abuse disorder Obesity Hypercholesteremia Peripheral vascular disease Palpitations Vertigo Osteoarthritis Diabetes mellitus type 2 in obese Paroxysmal atrial fibrillation Obstructive sleep apnea Home Medications ???Medication ???Instructions ???Recorded ???Last Taken ???Type aspirin 81 mg tablet,delayed 81 mg PO DAILY [facility] #90 10/25/20 01/26/23 Rx release tabs albuterol sulfate 90 mcg/actuation 2 puff inhalation Q4H SHORTNESS OF 01/27/23 01/26/23 History aerosol inhaler BREATH bumetanide 1 mg tablet 1 mg PO DAILY EDEMA 01/27/23 01/26/23 History bupropion HCl 150 mg 24 hr tablet, 150 mg PO DAILY DEPRESSION 01/27/23 01/26/23 History extended release calcium 600 mg (as 1 tab PO BID SUPPLEMENT 01/27/23 01/26/23 History carbonate)-vitamin D3 10 mcg (400 unit) tablet escitalopram oxalate 20 mg tablet 20 mg PO DAILY DEPRESSION 01/27/23 01/26/23 History fluticasone fur. 100 mcg-umeclid 1 inh inhalation DAILY SHORTNESS 01/27/23 01/26/23 History 62.5 mcg-vilant 25 mcg OF BREATH/WHEEZING inhalat.powder (Trelegy Ellipta) pravastatin 40 mg tablet 40 mg PO QPM CHOLESTEROL 01/27/23 01/26/23 History metoprolol succinate 50 mg 50 mg PO DAILY blood pressure 08/28/23 Unknown History tablet,extended release 24 hr acetaminophen 500 mg tablet 1,000 mg (2 x 500 mg) PO Q8 #0 tabs 08/31/23 Unknown Rx apixaban 5 mg tablet (Eliquis) 5 mg PO BID 03/09/24 Unknown History empagliflozin 25 mg tablet 25 mg PO DAILY 03/09/24 Unknown History (Jardiance) gabapentin 400 mg capsule 400 mg PO TID 03/09/24 Unknown History levothyroxine 75 mcg tablet 75 mcg PO DAILY 03/09/24 Unknown History meloxicam 7.5 mg tablet 7.5 mg PO DAILY 03/09/24 Unknown History metformin 500 mg tablet,extended 1,000 mg PO DAILY 03/09/24 Unknown History release 24 hr mupirocin 2 % topical ointment 1 applic topical DAILY 03/09/24 Unknown History nystatin 100,000 unit/gram topical 1 applic topical BID PRN rash 03/09/24 Unknown History powder ([facility]) oxycodone-acetaminop hen 5 mg-325 1 tab PO Q6H PRN pain 03/09/24 Unknown History mg tablet ropinirole 0.5 mg tablet 1 mg PO BID 03/09/24 Unknown History venlafaxine 225 mg tablet,extended 225 mg PO DAILY 03/09/24 Unknown History release 24 hr Allergy/AdvReac Type Severity Reaction Status Date / Time ampicillin Allergy Hives Verified 03/09/24 22:08 codeine Allergy Hives Verified 03/09/24 22:08 meperidine HCl (From Demerol) Allergy Hives Verified 03/09/24 22:08 Penicillins (PCN) Allergy Hives Verified 03/09/24 22:08 propoxyphene napsylate (From Allergy Hives Verified 03/09/24 22:08 Darvocet-N) Family History Mother Heart disease Brother Heart disease Grandfather CVA (cerebral vascular accident) Grandmother Myocardial infarction Surgical History History of laparoscopic cholecystectomy ( 11/2019) History of lumpectomy of both breasts History of cardiac catheterization History of knee replacement History of hysterectomy History of tubal ligation History of appendectomy Social History Smoking Status: Former smoker alcohol intake: never substance use type: does not use caffeine: Yes Type: coffee Number of servings: 5 ROS ROS ED ROS Narrative Constitutional: No fever, no chills. HEENT: No sore throat. No neck pain. No loss of vision. No rhinorrhea. Cardiovascular: Positive chest tightness/chest pain. No palpitations. No pedal edema. Respiratory: Positive cough, 1 hour shortness of breath. Abdominal: No abdominal pain. Positive n (more content not included)... Normal [facility] Eosinophil percentageOrdered By: Hunter Ryan on 03-09-2024 Eosinophils/100 WBC (Bld) 0.8 % 0-5 [facility] Erythrocyte distribution wid th (RBC) [Ratio]Ordered By: Hunter Ryan on 03-09-2024 Erythrocyte distribution width (RBC) [Entitic vol] 49.6 fL High 35.1-43.9 [facility] Erythrocyte distribution wid th ratioOrdered By: Hunter Ryan on 03-09-2024 Erythrocyte distribution width (RBC) [Ratio] 14.0 % 11.6-14.6 [facility] Estimated glomerular filtrat ion rate (GFR) AmericanOrdered By: Hunter Ryan on 03-09-2024 Estimated GFR (MDRD) Amer 45 mL/min Low >60 [facility] Comment on above: GFR Calc Estimation of creatinine crissy aranceOrdered By: Hunter Ryan on 03-09-2024 Estimated Creatinine Clearance Calc 37.51 ml/min [facility] Glomerular filtration rate ( GFR) estimationOrdered By: Hunter Ryan on 03-09-2024 Estimated GFR (MDRD) Non-Af Amer 37 mL/min Low >60 [facility] Comment on above: Non- GFR Calc Glucose measurementOrdered B y: Hunter Ryan on 03-09-2024 Glucose [Mass/Vol] 171 mg/dL High 74-106 [facility] Comment on above: Fasting Glucose resu lt greater than or equal to 126 mg/dL suggests DIABETES MELLITUS per A.D.A. criteria. Hematocrit Auto (Bld) [Volum e fraction]Ordered By: Hunter Ryan on 03-09-2024 Hematocrit (Bld) [Volume fraction] 44.8 % 37-47 [facility] Hemoglobin measurementOrdere d By: Hunter Ryan on 03-09-2024 Hemoglobin (Bld) [Mass/Vol] 14.9 g/dL 12.0-15.0 [facility] Immature granulocytes/100 WB C Auto (Bld)Ordered By: Hunter Ryan on 03-09-2024 Immature granulocytes/100 WBC (Bld) 0.800 % 0.0-0.9 [facility] Comment on above: IG% - Immature Granu locytes (promyelocytes, myelocytes and metamyelocytes) > 1% indicates that a LEFT SHIFT is Present. Influenza virus A and B and SARS-CoV-2 (COVID-19) and Respiratory syncytial virus RNAOrdered By: Hunter yRan on 03-09-2024 SARS-CoV-2 (COVID-19) RNA IVAN+probe Ql (Unsp spec) [facility] L501.4020on 03-09-2024 TROPONIN-I HS 16 pg/mL Normal 3.0-54.0 [facility] Comment on above: Order Comment: 'TROP ' Serial specimen #1, #2 or #3: 1 Result Comment: Plea se Note: New Test Units and Gender Specific Reference Ranges. For more information see Policy Stat Procedure [place] High Sensitivity Troponin (TNIH) and attachments. Performed By: #### L 501.080 #### [facility] [address] [place], [address] Lymphocytes Auto (Unsp spec) [#/Vol]Ordered By: Hunter Ryan on 03-09-2024 Lymphocytes (Bld) [#/Vol] 3.14 10*3/uL 0.83-4.51 [facility] Lymphocytes/100 WBC Auto (Un sp spec)Ordered By: Hunter Ryan on 03-09-2024 Lymphocytes/100 WBC (Bld) 23.9 % 19-41 [facility] M100.678on 03-09-2024 M100.678 Pending SARS-CoV-2 (COVID 19) Negative INFLUENZA A Negative INFLUENZA B Negative RSV PCR Negative Normal [facility] Comment on above: Performed By: #### L 501.4020, L500.2500, L100.0100 #### [facility] [address] [facility] [place], [address] MCV (mean corpuscular volume ) determinationOrdered By: Hunter Ryan on 03-09-2024 MCV (RBC) [Entitic vol] 96.3 fL 81-99 [facility] Mean corpuscular hemoglobin (MCH) determinationOrdered By: Hunter Ryan on 03-09-2024 MCH (RBC) [Entitic mass] 32.0 pg 27.0-32.0 [facility] Mean corpuscular hemoglobin concentration (MCHC) determinationOrdered By: Hunter Ryan on 03-09-2024 MCHC (RBC) [Mass/Vol] 33.3 g/dL 32-36 [facility] Mean platelet volume determi nationOrdered By: Hunter Ryan on 03-09-2024 Platelet mean volume (Bld) [Entitic vol] 11.7 fL 6.2-12.0 [facility] Monocyte percentageOrdered B y: Hunter Ryan on 03-09-2024 Monocytes/100 WBC (Bld) 6.5 % 0-10 [facility] Neutrophil percentageOrdered By: Hunter Ryan on 03-09-2024 Neutrophils/100 WBC (Bld) 67.2 % 47-70 [facility] Nucleated red blood cell per centageOrdered By: Hunter Ryan on 03-09-2024 Nucleated RBC/100 WBC (Bld) [Ratio] 0 % 0-5 [facility] Platelet countOrdered By: Reynold Ryan on 03-09-2024 Platelets (Bld) [#/Vol] 332 10*3/uL 150-450 [facility] Potassium measurementOrdered By: Hunter Ryan on 03-09-2024 Potassium [Moles/Vol] 3.8 mmol/L 3.5-5.1 [facility] Comment on above: Moderate Hemolysis, Result may be falsely increased. RBC Auto (Bld) [#/Vol]Ordere d By: Hunter Ryan on 03-09-2024 RBC (Bld) [#/Vol] 4.65 10*6/uL 4.2-5.4 [facility] Serum anion gap measurementO rdered By: Hunter Ryan on 03-09-2024 Anion gap [Moles/Vol] 7 mmol/L 5-15 [facility] Serum or plasma calcium brittny urement (mass/volume)Ordered By: Hunter Ryan on 03-09-2024 Calcium [Mass/Vol] 9.9 mg/dL 8.5-10.1 [facility] Serum or plasma creatinine m easurement (mass/volume)Ordered By: Hunter Ryan on 03-09-2024 Creatinine [Mass/Vol] 1.46 mg/dL High 0.55-1.02 [facility] Comment on above: The validity of the calculated GFR & GFRAA in patients over 70 years has not been determined. Clinical correlation is essential. Serum or plasma urea nitroge n measurement (mass/volume)Ordered By: Hunter Ryan on 03-09-2024 Urea nitrogen [Mass/Vol] 20 mg/dL High 7-18 [facility] Sodium levelOrdered By: Hunter Ryan on 03-09-2024 Sodium [Moles/Vol] 137 mmol/L 136-145 [facility] White blood cell (WBC) count Ordered By: Hunter Ryan on 03-09-2024 WBC (Bld) [#/Vol] 13.1 10*3/uL High 4.4-11.0 [facility] 12 Lead EKGon 02-21-2024 12 Lead EKG [facility] Cardiovascular Services [address] [place] [address] 12 Lead EKG 02/21/242120 MR#: [id number] Acct: [id number] Name: DAVID STREET Rep #: [id number] : 1950 73 From: Alberto Williamson MD Attending Dr: Status: DEP ER Ordering Dr: Juliocesar Hyatt DO Date: 4 Location: ED Sex: F C Admitted: Test Reason : SOB Blood Pressure : */* mmHG Vent. Rate : 92 BPM Atrial Rate : 92 BPM P-R Int : 164 ms QRS Dur : 90 ms QT Int : 366 ms P-R-T Axes : 68 -49 57 degrees QTcB Int : 452 ms Normal sinus rhythm Left anterior fascicular block Cannot rule out Inferior infarct (cited on or before 26-Jul-2023) Cannot rule out Anterior infarct , age undetermined Abnormal ECG Confirmed by ALBERTO WILLIAMSON MD ([id number]), technical editor JASVIR NESBITT ([id number]) on 02/22/2024 8:03:35 AM Referred By: Confirmed By: ALBERTO WILLIAMSON MD 02/22/24 0803 Date Alberto Williamson MD CC: Dr. Juliocesar Hyatt, DO; Dr. Richie Heredia DO Signed Normal [facility] Absolute neutrophil countOrd ered By: Juliocesar Hyatt on 02-21-2024 Neutrophils (Bld) [#/Vol] 8.1 10*3/uL High 2.0-7.7 [facility] Base excess Calc (BldV) [Mol es/Vol]Ordered By: Juliocesar Hyatt on 02-21-2024 Venous Blood Base Excess 1 mmol/L -1.0-3.5 [facility] Basic Metabolic Profile (BMP )on 02-21-2024 BUN/CRE 13.2 RATIO Normal 10-20 [facility] Comment on above: Order Comment: 'TROP ' Serial specimen #1, #2 or #3: 1 Performed By: #### L 501.4020, L500.2500, L100.0100 #### [facility] [address] [place], [address] CA,Total 9.7 mg/dL Normal 8.5-10.1 [facility] Comment on above: Order Comment: 'TROP ' Serial specimen #1, #2 or #3: 1 Performed By: #### L 501.4020, L500.2500, L100.0100 #### [facility] [address] [place], [address] Chloride [Moles/Vol] 100 mmol/L Normal 98-107 [facility] Comment on above: Order Comment: 'TROP ' Serial specimen #1, #2 or #3: 1 Performed By: #### L 501.4020, L500.2500, L100.0100 #### [facility] [address] [place], [address] CO2 [Moles/Vol] 30.0 mmol/L Normal 21.0-32.0 [facility] Comment on above: Order Comment: 'TROP ' Serial specimen #1, #2 or #3: 1 Performed By: #### L 501.4020, L500.2500, L100.0100 #### [facility] [address] [place], [address] Creatinine [Mass/Vol] 1.36 mg/dL High 0.55-1.02 [facility] Comment on above: Order Comment: 'TROP ' Serial specimen #1, #2 or #3: 1 Result Comment: The validity of the calculated GFR GFRAA in patients over 70 years has not been determined. Clinical correlation is essential. Performed By: #### L 501.4020, L500.2500, L100.0100 #### [facility] [address] [place], [address] EST GFR - AA 49 mL/min Low >60 [facility] Comment on above: Order Comment: 'TROP ' Serial specimen #1, #2 or #3: 1 Result Comment: Afri can Latvian GFR Calc Performed By: #### L 501.4020, L500.2500, L100.0100 #### [facility] [address] [place], [address] GAP 8 Normal 5-15 [facility] Comment on above: Order Comment: 'TROP ' Serial specimen #1, #2 or #3: 1 Performed By: #### L 501.4020, L500.2500, L100.0100 #### [facility] [address] [place], [address] GFR/1.73 sq M.predicted among non-blacks MDRD (S/P/Bld) [Vol rate/Area] 41 mL/min/{1.73_m2} Low >60 [facility] Comment on above: Order Comment: 'TROP ' Serial specimen #1, #2 or #3: 1 Result Comment: Non- GFR Calc Performed By: #### L 501.4020, L500.2500, L100.0100 #### [facility] [address] [place], [address] Glucose [Mass/Vol] 148 mg/dL High 74-106 [facility] Comment on above: Order Comment: 'TROP ' Serial specimen #1, #2 or #3: 1 Result Comment: Fast ing Glucose result greater than or equal to 126 mg/dL suggests DIABETES MELLITUS per A.D.A. criteria. Performed By: #### L 501.4020, L500.2500, L100.0100 #### [facility] [address] [place], [address] Potassium [Moles/Vol] 3.8 mmol/L Normal 3.5-5.1 [facility] Comment on above: Order Comment: 'TROP ' Serial specimen #1, #2 or #3: 1 Performed By: #### L 501.4020, L500.2500, L100.0100 #### [facility] [address] [place], [address] Sodium [Moles/Vol] 138 mmol/L Normal 136-145 [facility] Comment on above: Order Comment: 'TROP ' Serial specimen #1, #2 or #3: 1 Performed By: #### L 501.4020, L500.2500, L100.0100 #### [facility] [address] [place], [address] Urea nitrogen [Mass/Vol] 18 mg/dL Normal 7-18 [facility] Comment on above: Order Comment: 'TROP ' Serial specimen #1, #2 or #3: 1 Performed By: #### L 501.4020, L500.2500, L100.0100 #### [facility] [address] [place], [address] Basophil percentageOrdered B y: Juliocesar Hyatt on 02-21-2024 Basophils/100 WBC (Bld) 0.5 % 0-1 [facility] Blood urea nitrogen (BUN)/cr eatinine ratioOrdered By: Juliocesar Hyatt on 02-21-2024 Urea nitrogen/Creatinine [Mass ratio] 13.2 mg/mg 10-20 [facility] CBC W/Diff, Automatedon 12-3 0-2024 Absolute Lymph 2.58 X10 3/uL Normal 0.83-4.51 [facility] Comment on above: Performed By: #### L 501.4020, L500.2500, L100.0100 #### [facility] [address] [place], [address] Absolute Neut 8.1 X10 3/uL High 2.0-7.7 [facility] Comment on above: Performed By: #### L 501.4020, L500.2500, L100.0100 #### [facility] [address] [place], [address] Basophils/100 WBC (Bld) 0.5 % Normal 0-1 [facility] Comment on above: Performed By: #### L 501.4020, L500.2500, L100.0100 #### [facility] [address] [place], [address] Eosinophils/100 WBC (Bld) 1.2 % Normal 0-5 [facility] Comment on above: Performed By: #### L 501.4020, L500.2500, L100.0100 #### [facility] [address] [place], [address] Erythrocyte distribution width (RBC) [Ratio] 14.3 % Normal 11.6-14.6 [facility] Comment on above: Performed By: #### L 501.4020, L500.2500, L100.0100 #### [facility] [address] [place], [address] Hematocrit (Bld) [Volume fraction] 39.3 % Normal 37-47 [facility] Comment on above: Performed By: #### L 501.4020, L500.2500, L100.0100 #### [facility] [address] [place], [address] Hemoglobin (Bld) [Mass/Vol] 13.0 g/dL Normal 12.0-15.0 [facility] Comment on above: Performed By: #### L 501.4020, L500.2500, L100.0100 #### [facility] [address] [place], [address] IG% 0.700 Normal 0.0-0.9 [facility] Comment on above: Result Comment: IG% - Immature Granulocytes (promyelocytes, myelocytes and metamyelocytes) > 1% indicates that a LEFT SHIFT is Present. Performed By: #### L 501.4020, L500.2500, L100.0100 #### [facility] [address] [place], [address] Lymphocytes/100 WBC (Bld) 22.2 % Normal 19-41 [facility] Comment on above: Performed By: #### L 501.4020, L500.2500, L100.0100 #### [facility] [address] [place], [address] MCH (RBC) [Entitic mass] 32.2 pg High 27.0-32.0 [facility] Comment on above: Performed By: #### L 501.4020, L500.2500, L100.0100 #### [facility] [address] [place], [address] MCHC (RBC) [Mass/Vol] 33.1 g/dL Normal 32-36 [facility] Comment on above: Performed By: #### L 501.4020, L500.2500, L100.0100 #### [facility] [address] [place], [address] MCV (RBC) [Entitic vol] 97.3 fL Normal 81-99 [facility] Comment on above: Performed By: #### L 501.4020, L500.2500, L100.0100 #### [facility] [address] [place], [address] Monocytes/100 WBC (Bld) 5.5 % Normal 0-10 [facility] Comment on above: Performed By: #### L 501.4020, L500.2500, L100.0100 #### [facility] [address] [place], [address] Neutrophils/100 WBC (Bld) 69.9 % Normal 47-70 [facility] Comment on above: Performed By: #### L 501.4020, L500.2500, L100.0100 #### [facility] [address] [place], [address] Nucleated RBC (Bld) [#/Vol] 0 10*3/uL Normal 0-5 [facility] Comment on above: Performed By: #### L 501.4020, L500.2500, L100.0100 #### [facility] [address] [place], [address] Platelet mean volume (Bld) [Entitic vol] 10.8 fL Normal 6.2-12.0 [facility] Comment on above: Performed By: #### L 501.4020, L500.2500, L100.0100 #### [facility] [address] [place], [address] Platelets (Bld) [#/Vol] 375 10*3/uL Normal 150-450 [facility] Comment on above: Performed By: #### L 501.4020, L500.2500, L100.0100 #### [facility] [address] [place], [address] RBC (Bld) [#/Vol] 4.04 10*6/uL Low 4.2-5.4 [facility] Comment on above: Performed By: #### L 501.4020, L500.2500, L100.0100 #### [facility] [address] [place], [address] RDW SD 51.4 fl High 35.1-43.9 [facility] Comment on above: Performed By: #### L 501.4020, L500.2500, L100.0100 #### [facility] [address] [place], [address] WBC (Bld) [#/Vol] 11.6 10*3/uL High 4.4-11.0 [facility] Comment on above: Performed By: #### L 501.4020, L500.2500, L100.0100 #### [facility] [address] [place], [address] CO2 (BldV) [Moles/Vol]Ordere d By: Juliocesar Hyatt on 02-21-2024 CO2 [Moles/Vol] 25 mmol/L 23-33 [facility] CO2 (BldV) [Partial pressure ]Ordered By: Juliocesar Hyatt on 02-21-2024 Bed Mix Venous Bld PCO2 at Pat Temp 29.7 mmHg Low 41-51 [facility] Carbon dioxide measurementOr dered By: Juliocesar Hyatt on 02-21-2024 CO2 [Moles/Vol] 30.0 mmol/L 21.0-32.0 [facility] Chest PA and Lateralon 02-20 Chest PA and Lateral [facility] Imaging Services [address] [place] [address] Chest PA and Lateral MR#: [id number] Acct: [id number] Name: DAVID STREET Ramesh Rep #: [id number] : 1950 F 73 From: Mikey Vanegas MD PCP: Dr. Richie Heredia, DO Status: [facility] ER Study: Chest PA and Lateral Date of Exam: 02/21/24 Exam# [id number] Ordering Dr: Juliocesar Hyatt DO [id number] EXAM: XR CHEST, 2 VIEWS CLINICAL INDICATION: Shortness of breath TECHNIQUE: Frontal and lateral views of the chest. COMPARISON: No relevant prior studies available. FINDINGS: LUNGS AND PLEURAL SPACES: Calcified granulomas at the periphery of the left upper lobe. Mild subsegmental atelectasis and/or scarring at the lung bases. No consolidation. No pleural effusion or pneumothorax. HEART: Unremarkable. Cardiac silhouette not enlarged. MEDIASTINUM: Central airways and mediastinal contour are unremarkable. BONES/JOINTS: Degenerative changes of the spine and acromioclavicular joints. No acute fracture. SOFT TISSUES: Unremarkable. VASCULATURE: Atherosclerotic calcifications of the nonenlarged thoracic arch. RAD/Chest PA and Lateral IMPRESSION: No acute cardiopulmonary disease. Electronically Signed: Mikey Vanegas MD at 0:08 EST , CC: Dr. Juliocesar Hyatt DO; Dr. 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 Richie Heredia DO Status:DEP ER Location: ED HPI History of Present Illness Chief Complaint: Shortness of Breath Narrative Narrative: Chief complaint and HPI: Shortness of breath. 73-year-old female with history of COPD on as needed oxygen, HTN, HLD presents for evaluation of shortness of breath. Patient states that a young family member was recently diagnosed with RSV. Patient states this evening she became progressively short of breath. She endorses nasal congestion and mild cough. Endorses chest tightness but no true chest pain. She denies any fever, chills, abdominal pain, nausea, vomiting. Patient is on Trelegy Ellipta 1-year-old and as needed albuterol for her COPD. Previous smoker. She does not use nebulizers. Review of systems: See HPI Medications: As listed on the chart Allergies: As listed on the chart PFSH: Per chart Vital signs: As listed on the chart. Reviewed. Physical exam: Gen: A O x3, NAD Head: Normocephalic, atraumatic Eyes: No sclera icterus, conjunctiva clear ENT: Moist mucous membranes Neck: Trachea midline, No JVD CV: Tachycardic, regular rhythm, no murmurs, no peripheral edema Resp: Poor airflow, diminished throughout, tight, expiratory wheezing GI: Abd soft, non-distended, non-tender, no r/r/g Musc: Full ROM, no deformity Skin: Warm, dry Neuro: Alert, oriented, grossly intact, sensation intact Psych: Cooperative, appropriate mood and affect [facility] Medical History Hypercholesteremia Peripheral vascular disease Palpitations Vertigo Osteoarthritis Diabetes mellitus type 2 in obese Paroxysmal atrial fibrillation Obstructive sleep apnea Home Medications ???Medication ???Instructions ???Recorded ???Last Taken ???Type aspirin 81 mg tablet,delayed 81 mg PO DAILY Zeebo #90 10/25/20 01/26/23 Rx release tabs albuterol sulfate 90 mcg/actuation 2 puff inhalation Q4H SHORTNESS OF 01/27/23 01/26/23 History aerosol inhaler BREATH bumetanide 1 mg tablet 1 mg PO DAILY EDEMA 01/27/23 01/26/23 History bupropion HCl 150 mg 24 hr tablet, 150 mg PO DAILY DEPRESSION 01/27/23 01/26/23 History extended release calcium 600 mg (as 1 tab PO BID SUPPLEMENT 01/27/23 01/26/23 History carbonate)-vitamin D3 10 mcg (400 unit) tablet escitalopram oxalate 20 mg tablet 20 mg PO DAILY DEPRESSION 01/27/23 01/26/23 History fluticasone fur. 100 mcg-umeclid 1 inh inhalation DAILY SHORTNESS 01/27/23 01/26/23 History 62.5 mcg-vilant 25 mcg OF BREATH/WHEEZING inhalat.powder (Trelegy Ellipta) meloxicam 15 mg tablet 15 mg PO DAILY ARTHRITIS 01/27/23 01/26/23 History pravastatin 40 mg tablet 40 mg PO QPM CHOLESTEROL 01/27/23 01/26/23 History metoprolol succinate 50 mg 50 mg PO DAILY blood pressure 08/28/23 Unknown History tablet,extended release 24 hr acetaminophen 500 mg tablet 1,000 mg (2 x 500 mg) PO Q8 #0 tabs 08/31/23 Unknown Rx nystatin 100,000 unit/gram topical 1 applic topical BID #0 grams 08/31/23 Unknown Rx powder ([facility]) prednisone 20 mg tablet 60 mg (3 x 20 mg) PO DAILY 5 days 02/21/24 Unknown Rx #15 TABLETS Allergy/AdvReac Type Severity Reaction Status Date / Time ampicillin Allergy Hives Verified 02/21/24 21:16 codeine Allergy Hives Verified 02/21/24 21:16 meperidine HCl (From Demerol) Allergy Hives Verified 02/21/24 21:16 Penicillins (PCN) Allergy Hives Verified 02/21/24 21:16 propoxyphene napsylate (From Allergy Hives Verified 02/21/24 21:16 Darvocet-N) Family History Mother Heart disease Brother Heart disease Grandfather CVA (cerebral vascular accident) Grandmother Myocardial infarction Surgical History History of laparoscopic cholecystectomy ( 11/2019) History of lumpectomy of both breasts History of cardiac catheterization History of knee replacement History of hysterectomy History of tubal ligation History of appendectomy Social History Smoking Status: Former smoker alcohol intake: never substance use type: does not use caffeine: Yes Type: coffee Number of servings: 5 EXAM Physical Exam Const Vital Signs: 02/21/24 21:13 02/21/24 21:42 02/21/24 21:51 Temperature 97.8 F Temperature Source Temporal Pulse Rate 102 H 118 H Respiratory Rate 40 H 24 H Respiratory Effort Respiratory Depth Respiratory Pattern Blood Pressure 150/98 H Blood Pressure Mean 115 Pul (more content not included)... Normal [facility] Eosinophil percentageOrdered By: Juliocesar Hyatt on 02-21-2024 Eosinophils/100 WBC (Bld) 1.2 % 0-5 [facility] Erythrocyte distribution wid th (RBC) [Ratio]Ordered By: Juliocesar Hyatt on 02-21-2024 Erythrocyte distribution width (RBC) [Entitic vol] 51.4 fL High 35.1-43.9 [facility] Erythrocyte distribution wid th ratioOrdered By: Magnolia Olena on 02-21-2024 Erythrocyte distribution width (RBC) [Ratio] 14.3 % 11.6-14.6 [facility] Estimated glomerular filtrat ion rate (GFR) AmericanOrdered By: Magnolia Olena on 02-21-2024 Estimated GFR (MDRD) Amer 49 mL/min Low >60 [facility] Comment on above: GFR Calc Glomerular filtration rate ( GFR) estimationOrdered By: Juliocesarmargarette Hyatt on 02-21-2024 Estimated GFR (MDRD) Non-Af Amer 41 mL/min Low >60 [facility] Comment on above: Non- GFR Calc Glucose measurementOrdered B y: Juliocesarmargarette TorresUsama on 02-21-2024 Glucose [Mass/Vol] 148 mg/dL High 74-106 [facility] Comment on above: Fasting Glucose resu lt greater than or equal to 126 mg/dL suggests DIABETES MELLITUS per A.D.A. criteria. Hematocrit Auto (Bld) [Volum e fraction]Ordered By: Juliocesarmargarette Hyatt on 02-21-2024 Hematocrit (Bld) [Volume fraction] 39.3 % 37-47 [facility] Hemoglobin measurementOrdere d By: Juliocesar Hyatt on 02-21-2024 Hemoglobin (Bld) [Mass/Vol] 13.0 g/dL 12.0-15.0 [facility] Immature granulocytes/100 WB C Auto (Bld)Ordered By: Juliocesarmargarette Hyatt on 02-21-2024 Immature granulocytes/100 WBC (Bld) 0.700 % 0.0-0.9 [facility] Comment on above: IG% - Immature Granu locytes (promyelocytes, myelocytes and metamyelocytes) > 1% indicates that a LEFT SHIFT is Present. Influenza virus A and B and SARS-CoV-2 (COVID-19) and Respiratory syncytial virus RNAOrdered By: Juliocesar Hyatt on 02-21-2024 SARS-CoV-2 (COVID-19) RNA IVAN+probe Ql (Unsp spec) [facility] L501.4020on 02-21-2024 TROPONIN-I HS 12 pg/mL Normal 3.0-54.0 [facility] Comment on above: Order Comment: 'TROP ' Serial specimen #1, #2 or #3: 1 Result Comment: Plea se Note: New Test Units and Gender Specific Reference Ranges. For more information see Policy Stat Procedure [place] High Sensitivity Troponin (TNIH) and attachments. Performed By: #### L 501.4020, L500.2500, L100.0100 #### [facility] [address] [place], [address] Lymphocytes Auto (Unsp spec) [#/Vol]Ordered By: Juliocesar Hyatt on 02-21-2024 Lymphocytes (Bld) [#/Vol] 2.58 10*3/uL 0.83-4.51 [facility] Lymphocytes/100 WBC Auto (Un sp spec)Ordered By: Juliocesar Hyatt on 02-21-2024 Lymphocytes/100 WBC (Bld) 22.2 % 19-41 [facility] M100.678on 02-21-2024 M100.678 Pending SARS-CoV-2 (COVID 19) Negative INFLUENZA A Negative INFLUENZA B Negative RSV PCR Negative Normal [facility] Comment on above: Performed By: #### M 100.678 ####[facility] [address] [place], [place], [id number] MCV (mean corpuscular volume ) determinationOrdered By: Juliocesar Hyatt on 02-21-2024 MCV (RBC) [Entitic vol] 97.3 fL 81-99 [facility] Mean corpuscular hemoglobin (MCH) determinationOrdered By: Juliocesar Hyatt on 02-21-2024 MCH (RBC) [Entitic mass] 32.2 pg High 27.0-32.0 [facility] Mean corpuscular hemoglobin concentration (MCHC) determinationOrdered By: Juliocesar Hyatt on 02-21-2024 MCHC (RBC) [Mass/Vol] 33.1 g/dL 32-36 [facility] Mean platelet volume determi nationOrdered By: Juliocesar Hyatt on 02-21-2024 Platelet mean volume (Bld) [Entitic vol] 10.8 fL 6.2-12.0 [facility] Monocyte percentageOrdered B y: Juliocesar Hyatt on 02-21-2024 Monocytes/100 WBC (Bld) 5.5 % 0-10 [facility] Neutrophil percentageOrdered By: Juliocesar Hyatt on 02-21-2024 Neutrophils/100 WBC (Bld) 69.9 % 47-70 [facility] No Panel InformationOrdered By: Juliocesar Hyatt on 02-21-2024 Blood Gas Sample Site Not entered [facility] Blood Gas Specimen Type ANDRÉS [facility] Oxygen Delivery Device Room Air [facility] Nucleated red blood cell per centageOrdered By: Juliocesar Hyatt on 02-21-2024 Nucleated RBC/100 WBC (Bld) [Ratio] 0 % 0-5 [facility] Oxygen (BldV) [Partial press ure]Ordered By: Juliocesar Hyatt on 02-21-2024 Venous Blood Partial Pressure O2 28 mmHg 25-40 [facility] Platelet countOrdered By: Errol Hyatt on 02-21-2024 Platelets (Bld) [#/Vol] 375 10*3/uL 150-450 [facility] Potassium measurementOrdered By: Juliocesar Hyatt on 02-21-2024 Potassium [Moles/Vol] 3.8 mmol/L 3.5-5.1 [facility] RBC Auto (Bld) [#/Vol]Ordere d By: Juliocesar Hyatt on 02-21-2024 RBC (Bld) [#/Vol] 4.04 10*6/uL Low 4.2-5.4 [facility] Serum anion gap measurementO rdered By: Juliocesar Hyatt on 02-21-2024 Anion gap [Moles/Vol] 8 mmol/L 5-15 [facility] Serum or plasma calcium brittny urement (mass/volume)Ordered By: Juliocesar Forrester on 02-21-2024 Calcium [Mass/Vol] 9.7 mg/dL 8.5-10.1 [facility] Serum or plasma creatinine m easurement (mass/volume)Ordered By: Juliocesar Forrester on 02-21-2024 Creatinine [Mass/Vol] 1.36 mg/dL High 0.55-1.02 [facility] Comment on above: The validity of the calculated GFR & GFRAA in patients over 70 years has not been determined. Clinical correlation is essential. Serum or plasma urea nitroge n measurement (mass/volume)Ordered By: Juliocesar Hyatt on 02-21-2024 Urea nitrogen [Mass/Vol] 18 mg/dL 7-18 [facility] Sodium levelOrdered By: Diego Hyatt on 02-21-2024 Sodium [Moles/Vol] 138 mmol/L 136-145 [facility] Troponin IOrdered By: Juliocesar Hyatt on 02-21-2024 Troponin I High Sensitivity 12 pg/mL 3.0-54.0 [facility] Comment on above: Please Note: New Alanis t Units and Gender Specific Reference Ranges. For more information see Policy Stat Procedure [place] High Sensitivity Troponin (TNIH) and attachments. Venous Blood Gason 4 Blood Gas Type ANDRÉS Normal [facility] Comment on above: Performed By: #### L 9000.0810 ####[facility] [address] [place], [address] CO2 [Moles/Vol] 25 mmol/L Normal 23-33 [facility] Comment on above: Performed By: #### L 9000.0810 ####[facility] [address] [place], [address] HCO3 (Bld) [Moles/Vol] 24 mmol/L Normal 22-26 [facility] Comment on above: Performed By: #### L 9000.0810 ####[facility] [address] [place], [address] O2 Delivery Dev Room Air Normal [facility] Comment on above: Performed By: #### L 900.0810 ####[facility] [address] [place], [address] SITE Not entered Normal [facility] Comment on above: Performed By: #### L 9000.0810 ####[facility] [address] [place], [address] VBG BE 1 mmol/L Normal -1.0-3.5 [facility] Comment on above: Performed By: #### L 900.0810 ####[facility] [address] [place], [address] VBG pCO2 29.7 mmHg Low 41-51 [facility] Comment on above: Performed By: #### L 900.0810 ####[facility] [address] [place], [address] VBG pH 7.51 High 7.32-7.42 [facility] Comment on above: Performed By: #### L 9000.0810 ####[facility] [address] [place], [address] VBG PO2 28 mmHg Normal 25-40 [facility] Comment on above: Performed By: #### L 9000.0810 ####[facility] [address] [place], [address] VBG SO2 61 Normal 50-70 [facility] Comment on above: Performed By: #### L 9000.0810 ####[facility] [address] [place], [address] Venous blood bicarbonate peter surementOrdered By: Juliocesar Hyatt on 02-21-2024 HCO3 (Bld) [Moles/Vol] 24 mmol/L - [facility] Venous blood oxygen saturati on measurementOrdered By: Juliocesar Hyatt on 02-21-2024 Oxygen saturation in Blood 61 % 50-70 [facility] White blood cell (WBC) count Ordered By: Juliocesar Hyatt on 02-21-2024 WBC (Bld) [#/Vol] 11.6 10*3/uL High 4.4-11.0 [facility] pH (BldV)Ordered By: Juliocesar Patricia on 02-21-2024 Venous Blood pH 7.51 High 7.32-7.42 [facility] .Auto Diffon 11-25-2023 Basophil, Absolute 0.1 10 3/mcL Normal 0.0-0.2 [facility] Comment on above: Performed By: #### T SH, GFR, FT4, CBC, ADIFF, VIDH, A1C, CMP, ANEU #### [address] [address] #### B12 #### [address] [address] Basophils/100 WBC (Bld) 0.9 % Normal 0.0-2.5 [facility] Comment on above: Performed By: #### T SH, GFR, FT4, CBC, ADIFF, VIDH, A1C, CMP, ANEU #### [address] [address] #### B12 #### [address] [address] Eosinophil, Absolute 0.3 10 3/mcL Normal 0.0-0.7 [facility] Comment on above: Performed By: #### T SH, GFR, FT4, CBC, ADIFF, VIDH, A1C, CMP, ANEU #### [address] [address] #### B12 #### [address] [address] Eosinophils/100 WBC (Bld) 2.8 % Normal 0.0-7.0 [facility] Comment on above: Performed By: #### T SH, GFR, FT4, CBC, ADIFF, VIDH, A1C, CMP, ANEU #### [address] [address] #### B12 #### [address] [address] Lymphocyte, Absolute 2.2 10 3/mcL Normal 0.9-4.3 [facility] Comment on above: Performed By: #### T SH, GFR, FT4, CBC, ADIFF, VIDH, A1C, CMP, ANEU #### [place] [address] #### B12 #### [address] [address] Lymphocytes/100 WBC (Bld) 20.5 % Normal 20.0-40.0 [facility] Comment on above: Performed By: #### T SH, GFR, FT4, CBC, ADIFF, VIDH, A1C, CMP, ANEU #### [place] [address] #### B12 #### [address] [address] Monocyte, Absolute 0.6 10 3/mcL Normal 0.1-1.4 [facility] Comment on above: Performed By: #### T SH, GFR, FT4, CBC, ADIFF, VIDH, A1C, CMP, ANEU #### [place] [address] #### B12 #### [address] [address] Monocytes/100 WBC (Bld) 5.9 % Normal 2.0-13.0 [facility] Comment on above: Performed By: #### T SH, GFR, FT4, CBC, ADIFF, VIDH, A1C, CMP, ANEU #### [place] [address] #### B12 #### [address] [address] Neutrophils/100 WBC (Bld) 69.9 % Normal 50.0-75.0 [facility] Comment on above: Performed By: #### T SH, GFR, FT4, CBC, ADIFF, VIDH, A1C, CMP, ANEU #### [address] [address] #### B12 #### [address] [address] .GFRon 11-25-2023 GFR 42 ml/min/1.73sqm Normal [facility] Comment on above: Result Comment: GFR Population mean for , Non- Americans Ages 20-29 = 116 mL/min/1.73 sq.m. Ages 30-39 = 107 mL/min/1.73 sq.m. Ages 40-49 = 99 mL/min/1.73 sq.m. Ages 50-59 = 93 mL/min/1.73 sq.m. Ages 60-69 = 85 mL/min/1.73 sq.m. Ages 70+ = 75 mL/min/1.73 sq.m. Chronic Kidney Disease: Less than 60 mL/min/1.73 square meters End Stage Renal Disease: Less than 15 mL/min/1.73 square meters Performed By: #### T SH, GFR, FT4, CBC, ADIFF, VIDH, A1C, CMP, ANEU #### [address] [address] #### B12 #### [address] [address] GFR Non- 34 ml/min/1.73sqm Normal [facility] Comment on above: Result Comment: GFR Population mean for , Non- Americans Ages 20-29 = 116 mL/min/1.73 sq.m. Ages 30-39 = 107 mL/min/1.73 sq.m. Ages 40-49 = 99 mL/min/1.73 sq.m. Ages 50-59 = 93 mL/min/1.73 sq.m. Ages 60-69 = 85 mL/min/1.73 sq.m. Ages 70+ = 75 mL/min/1.73 sq.m. Chronic Kidney Disease: Less than 60 mL/min/1.73 square meters End Stage Renal Disease: Less than 15 mL/min/1.73 square meters Performed By: #### T SH, GFR, FT4, CBC, ADIFF, VIDH, A1C, CMP, ANEU #### [address] [address] #### B12 #### [address] [address] .NEUABSon 11-25-2023 Neutrophil, Absolute 7.6 10 3/mcL Normal 2.3-8.1 [facility] Comment on above: Performed By: #### T SH, GFR, FT4, CBC, ADIFF, VIDH, A1C, CMP, ANEU #### [address] [address] #### B12 #### [address] [address] A1Con 11-25-2023 Glucose [Mass/Vol] 111 mg/dL Normal [facility] Comment on above: Result Comment: Eloisa mated Average Glucose calculated by equation ((28.7xA1C)-46.7) Estimated average glucose (eAG) is a calculated value from Hemoglobin A1C and is manufacturing sales representative of the average blood glucose level in the last 2-3 month period. Normal range: less than 114 mg/dL Performed By: #### U PARVEZ UA #### [address] [address] HbA1c (Bld) [Mass fraction] 5.5 % Normal 4.3-6.4 [facility] Comment on above: Performed By: #### Kush HANNON UA #### [address] [address] B12on 11-25-2023 Cobalamin (Vitamin B12) [Mass/Vol] 638 pg/mL Normal 211-911 [facility] Comment on above: Performed By: #### Kush HANNON UA #### [address] [address] CBCon 11-25-2023 Erythrocyte distribution width (RBC) [Ratio] 13.9 % Normal 11.5-15.5 [facility] Comment on above: Performed By: #### T SH, GFR, FT4, CBC, ADIFF, VIDH, A1C, CMP, ANEU #### [place] [address] #### B12 #### [place] [address] Hematocrit (Bld) [Volume fraction] 38.3 % Normal 34.0-46.0 [facility] Comment on above: Performed By: #### T SH, GFR, FT4, CBC, ADIFF, VIDH, A1C, CMP, ANEU #### [place] [address] #### B12 #### [place] [address] Hgb 12.9 G/dL Normal 12.0-16.0 [facility] Comment on above: Performed By: #### T SH, GFR, FT4, CBC, ADIFF, VIDH, A1C, CMP, ANEU #### [place] [address] #### B12 #### [place] [address] MCH (RBC) [Entitic mass] 31.9 pg Normal 27.0-33.0 [facility] Comment on above: Performed By: #### T SH, GFR, FT4, CBC, ADIFF, VIDH, A1C, CMP, ANEU #### [place] [address] #### B12 #### [place] [address] MCHC 33.5 G/dL Normal 32.0-36.0 [facility] Comment on above: Performed By: #### T SH, GFR, FT4, CBC, ADIFF, VIDH, A1C, CMP, ANEU #### [place] [address] #### B12 #### [place] [address] MCV (RBC) [Entitic vol] 95.1 fL Normal 80.0-99.0 [facility] Comment on above: Performed By: #### T SH, GFR, FT4, CBC, ADIFF, VIDH, A1C, CMP, ANEU #### [place] [address] #### B12 #### [place] [address] Platelet 340 10 3/mcL Normal 150-450 [facility] Comment on above: Performed By: #### T SH, GFR, FT4, CBC, ADIFF, VIDH, A1C, CMP, ANEU #### [place] [address] #### B12 #### [place] [address] Platelet mean volume (Bld) [Entitic vol] 10.4 fL Normal 6.6-10.5 [facility] Comment on above: Performed By: #### T SH, GFR, FT4, CBC, ADIFF, VIDH, A1C, CMP, ANEU #### [place] [address] #### B12 #### [place] [address] RBC 4.03 10 6/mcL Low 4.10-5.30 [facility] Comment on above: Performed By: #### T SH, GFR, FT4, CBC, ADIFF, VIDH, A1C, CMP, ANEU #### [place] [address] #### B12 #### [place] [address] WBC 10.9 10 3/mcL High 4.5-10.8 [facility] Comment on above: Performed By: #### T SH, GFR, FT4, CBC, ADIFF, VIDH, A1C, CMP, ANEU #### [place] [address] #### B12 #### [address] [address] CLINDAMYCIN:SUSC:PT:ISOLATE: ALEKSANDARQN:MICon 11-25-2023 Clindamycin TWYLA [Susc] Light Staphylococ cus aureus This staphylococci does not demonstrate inducible clindamycin resistance in vitro. Few normal skin alan present. Sensitivity testing not indicated. [facility] Albumin Level 3.5 G/dL Normal 3.4-4.8 [facility] Comment on above: Performed By: #### T SH, GFR, FT4, CBC, ADIFF, VIDH, A1C, CMP, ANEU #### [place] [address] #### B12 #### [place] [address] Albumin/Globulin [Mass ratio] 0.9 {ratio} Low 1.1-2.5 [facility] Comment on above: Performed By: #### T SH, GFR, FT4, CBC, ADIFF, VIDH, A1C, CMP, ANEU #### [place] [address] #### B12 #### [address] [address] ALP [Catalytic activity/Vol] 115 U/L Normal 40-135 [facility] Comment on above: Performed By: #### T SH, GFR, FT4, CBC, ADIFF, VIDH, A1C, CMP, ANEU #### [place] [address] #### B12 #### [address] [address] ALT [Catalytic activity/Vol] 19 U/L Normal 14-59 [facility] Comment on above: Performed By: #### T SH, GFR, FT4, CBC, ADIFF, VIDH, A1C, CMP, ANEU #### [place] [address] #### B12 #### [address] [address] AST [Catalytic activity/Vol] 9 U/L Low 10-40 [facility] Comment on above: Performed By: #### T SH, GFR, FT4, CBC, ADIFF, VIDH, A1C, CMP, ANEU #### [address] [address] #### B12 #### [place] [address] Bili Total 0.3 mg/dL Normal 0.2-1.0 [facility] Comment on above: Result Comment: Use of this assay is not recommended for patients undergoing treatment with eltrombopag due to the potential for falsely elevated results. Performed By: #### T SH, GFR, FT4, CBC, ADIFF, VIDH, A1C, CMP, ANEU #### [place] [address] #### B12 #### [place] [address] BUN/Creatinine Ratio 11 ratio Normal 7-27 [facility] Comment on above: Performed By: #### T SH, GFR, FT4, CBC, ADIFF, VIDH, A1C, CMP, ANEU #### [place] [address] #### B12 #### [place] [address] Calcium [Mass/Vol] 9.5 mg/dL Normal 8.4-10.2 [facility] Comment on above: Performed By: #### T SH, GFR, FT4, CBC, ADIFF, VIDH, A1C, CMP, ANEU #### [place] [address] #### B12 #### [place] [address] Chloride [Moles/Vol] 96 mmol/L Low 98-107 [facility] Comment on above: Performed By: #### T SH, GFR, FT4, CBC, ADIFF, VIDH, A1C, CMP, ANEU #### [place] [address] #### B12 #### [address] [address] CO2 [Moles/Vol] 26 mmol/L Normal 23-31 [facility] Comment on above: Performed By: #### T SH, GFR, FT4, CBC, ADIFF, VIDH, A1C, CMP, ANEU #### [place] [address] #### B12 #### [place] [address] Creatinine [Mass/Vol] 1.49 mg/dL High 0.55-1.02 [facility] Comment on above: Result Comment: Test ing performed on [employer] Dimension EXL analyzer using a modified kinetic Jesi technique. Performed By: #### T SH, GFR, FT4, CBC, ADIFF, VIDH, A1C, CMP, ANEU #### [place] [address] #### B12 #### [place] [address] Electrolyte Balance 14.0 mEq/L Normal 4.0-15.0 [facility] Comment on above: Performed By: #### T SH, GFR, FT4, CBC, ADIFF, VIDH, A1C, CMP, ANEU #### [place] [address] #### B12 #### [place] [address] Globulin 3.9 G/dL Normal [facility] Comment on above: Performed By: #### T SH, GFR, FT4, CBC, ADIFF, VIDH, A1C, CMP, ANEU #### [place] [address] #### B12 #### [place] [address] Glucose [Mass/Vol] 142 mg/dL High 83-110 [facility] Comment on above: Performed By: #### T SH, GFR, FT4, CBC, ADIFF, VIDH, A1C, CMP, ANEU #### [address] [address] #### B12 #### [address] [address] Potassium [Moles/Vol] 3.3 mmol/L Low 3.5-5.1 [facility] Comment on above: Performed By: #### T SH, GFR, FT4, CBC, ADIFF, VIDH, A1C, CMP, ANEU #### [address] [address] #### B12 #### [address] [address] Sodium [Moles/Vol] 136 mmol/L Normal 136-145 [facility] Comment on above: Performed By: #### T SH, GFR, FT4, CBC, ADIFF, VIDH, A1C, CMP, ANEU #### [place] [address] #### B12 #### [address] [address] Total Protein 7.4 G/dL Normal 6.4-8.2 [facility] Comment on above: Performed By: #### T SH, GFR, FT4, CBC, ADIFF, VIDH, A1C, CMP, ANEU #### [address] [address] #### B12 #### [address] [address] Urea nitrogen [Mass/Vol] 17 mg/dL Normal 7-18 [facility] Comment on above: Performed By: #### T SH, GFR, FT4, CBC, ADIFF, VIDH, A1C, CMP, ANEU #### [place] [address] #### B12 #### [address] [address] Clindamycin TWYLA [Susc]on GS No organisms seen. [facility] Work Phone: Staphylococcus aureus Staphylococcus aureus [facility] Work Phone: FT4on 11-25-2023 Free T4 [Mass/Vol] 1.05 ng/dL Normal 0.76-1.46 [facility] Comment on above: Performed By: #### T SH, GFR, FT4, CBC, ADIFF, VIDH, A1C, CMP, ANEU #### [facility] [address] [place], [place] [address] #### B12 #### [facility] [address] [place] [address] LABORATORYOrdered By: SYSTEM SYSTEM on 11-25-2023 25-hydroxyvitamin D3 [Mass/Vol] 34.6 ng/mL Invalid Interpretation Code AO ADM SS Comment on above: Interpretive Data: I nterpretive Values Based on Total 25(OH) Vitamin D: Deficient <20 ng/mL Insufficient 20 - <30 ng/mL Sufficient 30-100 ng/mL Albumin BCP dye [Mass/Vol] 3.5 G/dL Normal 3.4 - 4.8 G/dL AO ADM SS Albumin/Globulin [Mass ratio] 0.9 {ratio} Low 1.1 - 2.5 ratio AO ADM SS ALP [Catalytic activity/Vol] 115 U/L Normal 40 - 135 U/L AO ADM SS ALT With P-5'-P [Catalytic activity/Vol] 19 U/L Normal 14 - 59 U/L AO ADM SS AST With P-5'-P [Catalytic activity/Vol] 9 U/L Low 10 - 40 U/L AO ADM SS Basophils (Bld) [#/Vol] 0.1 103/mcL Normal 0.0 - 0.2 10^3/mcL AO Workflow SS Basophils/100 WBC (Bld) 0.9 % Normal 0.0 - 2.5 % AO Workflow SS Bilirubin [Mass/Vol] 0.3 mg/dL Normal 0.2 - 1 .0 mg/dL AO ADM SS Comment on above: Interpretive Data: U se of this assay is not recommended for patients undergoing treatment with eltrombopag due to the potential for falsely elevated results. Calcium [Mass/Vol] 9.5 mg/dL Normal 8.4 - 10. 2 mg/dL AO ADM SS Chloride [Moles/Vol] 96 mmol/L Low 98 - 10 7 mmol/L AO ADM SS CO2 [Moles/Vol] 26 mmol/L Normal 23 - 31 mmol/L AO ADM SS Cobalamin (Vitamin B12) [Mass/Vol] 638 pg/mL Normal 211 - 911 pg/mL AH ADM SS Creatinine [Mass/Vol] 1.49 mg/dL High 0.55 - 1.02 mg/dL AO ADM SS Comment on above: Interpretive Data: T esting performed on Siemens Dimension EXL analyzer using a modified kinetic Jesi technique. Electrolyte Balance 14.0 mEq/L Normal 4.0 - 15 .0 mEq/L AO ADM SS Eosinophil, Absolute 0.3 103/mcL Normal 0.0 - 0 .7 10^3/mcL AO Workflow SS Eosinophils/100 WBC (Bld) 2.8 % Normal 0.0 - 7.0 % AO Workflow SS Erythrocyte distribution width (RBC) [Ratio] 13.9 % Normal 11.5 - 15.5 % AO Workflow SS Free T4 [Mass/Vol] 1.05 ng/dL Normal 0.76 - 1. 46 ng/dL AO ADM SS GFR/1.73 sq M.predicted among blacks MDRD (S/P/Bld) [Vol rate/Area] 42 ml/min/1.73sqm Invalid Interpretation Code AO Chemistry S Comment on above: Interpretive Data: GFR Population mean for , Non- Americans Ages 20-29 = 116 mL/min/1.73 sq.m. Ages 30-39 = 107 mL/min/1.73 sq.m. Ages 40-49 = 99 mL/min/1.73 sq.m. Ages 50-59 = 93 mL/min/1.73 sq.m. Ages 60-69 = 85 mL/min/1.73 sq.m. Ages 70+ = 75 mL/min/1.73 sq.m. Chronic Kidney Disease: Less than 60 mL/min/1.73 square meters End Stage Renal Disease: Less than 15 mL/min/1.73 square meters GFR/1.73 sq M.predicted among non-blacks MDRD (S/P/Bld) [Vol rate/Area] 34 ml/min/1.73sqm Invalid Interpretation Code AO Chemistry S Comment on above: Interpretive Data: GFR Population mean for , Non- Americans Ages 20-29 = 116 mL/min/1.73 sq.m. Ages 30-39 = 107 mL/min/1.73 sq.m. Ages 40-49 = 99 mL/min/1.73 sq.m. Ages 50-59 = 93 mL/min/1.73 sq.m. Ages 60-69 = 85 mL/min/1.73 sq.m. Ages 70+ = 75 mL/min/1.73 sq.m. Chronic Kidney Disease: Less than 60 mL/min/1.73 square meters End Stage Renal Disease: Less than 15 mL/min/1.73 square meters Globulin 3.9 G/dL Invalid Interpretation Code AO ADM SS Glucose [Mass/Vol] 142 mg/dL High 83 - 110 mg/dL AO ADM SS Glucose [Mass/Vol] 111 mg/dL Invalid Interpretation Code AO Chemistry S Comment on above: Interpretive Data: E stimated average glucose (eAG) is a calculated value from Hemoglobin A1C and is manufacturing sales representative of the average blood glucose level in the last 2-3 month period. Normal range: less than 114 mg/dL HbA1c (Bld) [Mass fraction] 5.5 % Normal 4.3 - 6.4 % AO ADM SS Hematocrit (Bld) [Volume fraction] 38.3 % Normal 34.0 - 46.0 % AO Workflow SS Hemoglobin (Bld) [Mass/Vol] 12.9 G/dL Normal 12.0 - 16.0 G/dL AO Workflow SS Lymphocytes (Bld) [#/Vol] 2.2 103/mcL Normal 0.9 - 4.3 10^3/mcL AO Workflow SS Lymphocytes/100 WBC (Bld) 20.5 % Normal 20.0 - 40.0 % AO Workflow SS MCH (RBC) [Entitic mass] 31.9 pg Normal 27. 0 - 33.0 pg AO Workflow SS MCHC 33.5 G/dL Normal 32.0 - 36.0 G/dL AO Workflow SS MCV (RBC) [Entitic vol] 95.1 fL Normal 80.0 - 99.0 fL AO Workflow SS Monocytes (Bld) [#/Vol] 0.6 103/mcL Normal 0.1 - 1.4 10^3/mcL AO Workflow SS Monocytes/100 WBC (Bld) 5.9 % Normal 2.0 - 13.0 % AO Workflow SS Neutrophils (Bld) [#/Vol] 7.6 103/mcL Normal 2.3 - 8.1 10^3/mcL AO Workflow SS Neutrophils/100 WBC (Bld) 69.9 % Normal 50.0 - 75.0 % AO Workflow SS Platelet mean volume (Bld) [Entitic vol] 10.4 fL Normal 6.6 - 10.5 fL AO Workflow SS Platelets (Bld) [#/Vol] 340 103/mcL Normal 150 - 450 10^3/mcL AO Workflow SS Potassium [Moles/Vol] 3.3 mmol/L Low 3.5 - 5.1 mmol/L AO ADM SS Protein [Mass/Vol] 7.4 G/dL Normal 6.4 - 8.2 G/dL AO ADM SS RBC (Bld) [#/Vol] 4.03 106/mcL Low 4.10 - 5.3 0 10^6/mcL AO Workflow SS Sodium [Moles/Vol] 136 mmol/L Normal 136 - 145 mmol/L AO ADM SS TSH Qn 4.70 m[IU]/L High 0.36 - 3.74 mcIU/mL AO ADM SS Urea nitrogen [Mass/Vol] 17 mg/dL Normal 7 - 18 mg/d L AO ADM SS Urea nitrogen/Creatinine [Mass ratio] 11 ratio Normal 7 - 27 ratio AO ADM SS WBC (Bld) [#/Vol] 10.9 103/mcL High 4.5 - 10.8 10^3/mcL AO Workflow SS TSHon 11-25-2023 TSH Qn 4.70 m[IU]/L High 0.36-3.74 [facility] Comment on above: Performed By: #### T SH, GFR, FT4, CBC, ADIFF, VIDH, A1C, CMP, ANEU #### [place] [address] [place], [place] [address] #### B12 #### [address] [address] VIDHon 11-25-2023 Vit. D 25-Hydroxy 34.6 ng/mL Normal [facility] Comment on above: Result Comment: Inte rpretive Values Based on Total 25(OH) Vitamin D: Deficient <20 ng/mL Insufficient 20 - <30 ng/mL Sufficient 30-100 ng/mL Performed By: #### T SH, GFR, FT4, CBC, ADIFF, VIDH, A1C, CMP, ANEU #### [place] [address] [place], [place] [address] #### B12 #### [facility] [address] [place] [address] Basic Metabolic Profile (BMP )on 09-02-2023 BUN/CRE 33.1 RATIO High 10-20 [facility] Comment on above: Order Comment: 'TROP ' Serial specimen #1, #2 or #3: 1 Performed By: #### L 501.4020, L500.2500, L100.0100 #### [facility] [address] [place], [address] CA,Total 9.1 mg/dL Normal 8.5-10.1 [facility] Comment on above: Order Comment: 'TROP ' Serial specimen #1, #2 or #3: 1 Performed By: #### L 501.4020, L500.2500, L100.0100 #### [facility] [address] [place], [address] Chloride [Moles/Vol] 102 mmol/L Normal 98-107 [facility] Comment on above: Order Comment: 'TROP ' Serial specimen #1, #2 or #3: 1 Performed By: #### L 501.4020, L500.2500, L100.0100 #### [facility] [address] [place], [address] CO2 [Moles/Vol] 24.0 mmol/L Normal 21.0-32.0 [facility] Comment on above: Order Comment: 'TROP ' Serial specimen #1, #2 or #3: 1 Performed By: #### L [id number], L500.2500, L100.0100 #### [facility] [address] [place], [address] Creatinine [Mass/Vol] 0.36 mg/dL Low 0.55-1.02 [facility] Comment on above: Order Comment: 'TROP ' Serial specimen #1, #2 or #3: 1 Result Comment: The validity of the calculated GFR GFRAA in patients over 70 years has not been determined. Clinical correlation is essential. Performed By: #### L 501.4020, L500.2500, L100.0100 #### [facility] [address] [place], [address] EST GFR - AA 226 mL/min Normal >60 [facility] Comment on above: Order Comment: 'TROP ' Serial specimen #1, #2 or #3: 1 Result Comment: Afri can Latvian GFR Calc Performed By: #### L 501.4020, L500.2500, L100.0100 #### [facility] [address] [place], [address] GAP 10 Normal 5-15 [facility] Comment on above: Order Comment: 'TROP ' Serial specimen #1, #2 or #3: 1 Performed By: #### L 501.4020, L500.2500, L100.0100 #### [facility] [address] [place], [address] GFR/1.73 sq M.predicted among non-blacks MDRD (S/P/Bld) [Vol rate/Area] 187 mL/min/{1.73_m2} Normal >60 [facility] Comment on above: Order Comment: 'TROP ' Serial specimen #1, #2 or #3: 1 Result Comment: Non- GFR Calc Performed By: #### L 501.4020, L500.2500, L100.0100 #### [facility] [address] [place], [address] Glucose [Mass/Vol] 98 mg/dL Normal 74-106 [facility] Comment on above: Order Comment: 'TROP ' Serial specimen #1, #2 or #3: 1 Performed By: #### L 501.4020, L500.2500, L100.0100 #### [facility] [address] [place], [address] Potassium [Moles/Vol] 3.9 mmol/L Normal 3.5-5.1 [facility] Comment on above: Order Comment: 'TROP ' Serial specimen #1, #2 or #3: 1 Performed By: #### L 501.4020, L500.2500, L100.0100 #### [facility] [address] [place], [address] Sodium [Moles/Vol] 136 mmol/L Normal 136-145 [facility] Comment on above: Order Comment: 'TROP ' Serial specimen #1, #2 or #3: 1 Performed By: #### L 501.4020, L500.2500, L100.0100 #### [facility] [address] [place], [address] Urea nitrogen [Mass/Vol] 12 mg/dL Normal 7-18 [facility] Comment on above: Order Comment: 'TROP ' Serial specimen #1, #2 or #3: 1 Performed By: #### L 501.4020, L500.2500, L100.0100 #### [facility] [address] [place], [address] CBC-Complete Blood Cnt No Di ffon 09-02-2023 Erythrocyte distribution width (RBC) [Ratio] 14.0 % Normal 11.6-14.6 [facility] Comment on above: Order Comment: 'TROP ' Serial specimen #1, #2 or #3: 1 Performed By: #### L 501.4020, L500.2500, L100.0100 #### [facility] [address] [place], [address] Hematocrit (Bld) [Volume fraction] 37.3 % Normal 37-47 [facility] Comment on above: Order Comment: 'TROP ' Serial specimen #1, #2 or #3: 1 Performed By: #### L 501.4020, L500.2500, L100.0100 #### [facility] [address] [place], [address] Hemoglobin (Bld) [Mass/Vol] 12.0 g/dL Normal 12.0-15.0 [facility] Comment on above: Order Comment: 'TROP ' Serial specimen #1, #2 or #3: 1 Performed By: #### L 501.4020, L500.2500, L100.0100 #### [facility] [address] [place], [address] MCH (RBC) [Entitic mass] 30.8 pg Normal 27.0-32.0 [facility] Comment on above: Order Comment: 'TROP ' Serial specimen #1, #2 or #3: 1 Performed By: #### L 501.4020, L500.2500, L100.0100 #### [facility] [address] [place], [address] MCHC (RBC) [Mass/Vol] 32.2 g/dL Normal 32-36 [facility] Comment on above: Order Comment: 'TROP ' Serial specimen #1, #2 or #3: 1 Performed By: #### L 501.4020, L500.2500, L100.0100 #### [facility] [address] [place], [address] MCV (RBC) [Entitic vol] 95.9 fL Normal 81-99 [facility] Comment on above: Order Comment: 'TROP ' Serial specimen #1, #2 or #3: 1 Performed By: #### L 501.4020, L500.2500, L100.0100 #### [facility] [address] [place], [address] Platelet mean volume (Bld) [Entitic vol] 11.3 fL Normal 6.2-12.0 [facility] Comment on above: Order Comment: 'TROP ' Serial specimen #1, #2 or #3: 1 Performed By: #### L 501.4020, L500.2500, L100.0100 #### [facility] [address] [place], [address] Platelets (Bld) [#/Vol] 268 10*3/uL Normal 150-450 [facility] Comment on above: Order Comment: 'TROP ' Serial specimen #1, #2 or #3: 1 Performed By: #### L 501.4020, L500.2500, L100.0100 #### [facility] [address] [place], [address] RBC (Bld) [#/Vol] 3.89 10*6/uL Low 4.2-5.4 [facility] [place] Comment on above: Order Comment: 'TROP ' Serial specimen #1, #2 or #3: 1 Performed By: #### L 501.4020, L500.2500, L100.0100 #### [facility] [address] [place], [address] RDW SD 49.3 fl High 35.1-43.9 [facility] Comment on above: Order Comment: 'TROP ' Serial specimen #1, #2 or #3: 1 Performed By: #### L 501.4020, L500.2500, L100.0100 #### [facility] [address] [place], [address] WBC (Bld) [#/Vol] 14.2 10*3/uL High 4.4-11.0 [facility] [place] Comment on above: Order Comment: 'TROP ' Serial specimen #1, #2 or #3: 1 Performed By: #### L 501.4020, L500.2500, L100.0100 #### [facility] [address] [place], [address] Hemoglobin A1con 09-02-2023 HbA1c (Bld) [Mass fraction] 5.8 % High 3.8-5.6 [facility] Comment on above: Order Comment: 'TROP ' Serial specimen #1, #2 or #3: 1 Result Comment: Norm al < 5.7 % Prediabetic 5.7 - 6.4 % Diabetic >or= 6.5 % Please note range changes. Performed By: #### L 501.4020, L500.2500, L100.0100 #### [facility] [address] [place], [address] Lipid Profileon 09-02-2023 Cholesterol [Mass/Vol] 105 mg/dL Normal 200 [facility] Comment on above: Order Comment: 'TROP ' Serial specimen #1, #2 or #3: 1 Result Comment: <200 mg/dL Desirable 200-240 mg/dL Borderline >240 mg/dL High Risk Performed By: #### L 501.4020, L500.2500, L100.0100 #### [facility] [address] [place], [address] Cholesterol in HDL [Mass/Vol] 24 mg/dL Low [facility] Comment on above: Order Comment: 'TROP ' Serial specimen #1, #2 or #3: 1 Result Comment: The drugs N-Acetylcysteine and Metamizole may falsely depress this assay. Reference Range HDL <40 mg/dL Low HDL Cholesterol HDL >or= 60 mg/dL High HDL Cholesterol Performed By: #### L 501.4020, L500.2500, L100.0100 #### [facility] [address] [place], [address] Cholesterol in LDL [Mass/Vol] 39 mg/dL Normal 0-130 [facility] Comment on above: Order Comment: 'TROP ' Serial specimen #1, #2 or #3: 1 Performed By: #### L 501.4020, L500.2500, L100.0100 #### [facility] [address] [place], [address] Cholesterol in VLDL [Mass/Vol] 42 mg/dL High 5-40 [facility] Comment on above: Order Comment: 'TROP ' Serial specimen #1, #2 or #3: 1 Performed By: #### L 501.4020, L500.2500, L100.0100 #### [facility] [address] [place], [address] Triglyceride [Mass/Vol] 209 mg/dL High [facility] Comment on above: Order Comment: 'TROP ' Serial specimen #1, #2 or #3: 1 Result Comment: The drugs N-Acetylcysteine and Metamizole may falsely depress this assay. Serum Triglycerides Reference Interval Normal <150 mg/dL Borderline high 150 - 199 mg/dL High 200 - 499 mg/dL Very High > or = 500 mg/dL Performed By: #### L 501.4020, L500.2500, L100.0100 #### [facility] [address] [place], [address] Bedside Glucoseon 09-01-2023 FINGERSTICK GLU 99 mg/dL Normal 74-106 [facility] Comment on above: Result Comment: JEAN GEMENT OF PATIENT CARE PER NURSING PROTOCOL Performed By: #### L 501.080 ####[facility] [address] [place], [address] FINGERSTICK GLU 188 mg/dL High 74-106 [facility] Comment on above: Result Comment: JEAN GEMENT OF PATIENT CARE PER NURSING PROTOCOL Performed By: #### L 501.080 ####[facility] [address] [place], [address] FINGERSTICK GLU 131 mg/dL High 74-106 [facility] Comment on above: Result Comment: JEAN GEMENT OF PATIENT CARE PER NURSING PROTOCOL Performed By: #### L 501.4020, L500.2500, L100.0100 #### [facility] [address] [place], [address] Bedside Glucoseon 08-31-2023 FINGERSTICK GLU 94 mg/dL Normal 74-106 [facility] Comment on above: Result Comment: JEAN GEMENT OF PATIENT CARE PER NURSING PROTOCOL Performed By: #### L 501.080 ####[facility] [address] [place], [address] FINGERSTICK GLU 107 mg/dL High 74-106 [facility] Comment on above: Result Comment: JEAN GEMENT OF PATIENT CARE PER NURSING PROTOCOL Performed By: #### L 501.080 ####[facility] [address] [place], [address] FINGERSTICK GLU 48 mg/dL Low 74-106 [facility] Comment on above: Result Comment: JEAN GEMENT OF PATIENT CARE PER NURSING PROTOCOL Performed By: #### L 501.080 #### [facility] [address] [place], [address] FINGERSTICK GLU 80 mg/dL Normal 74-106 [facility] Comment on above: Result Comment: JEAN GEMENT OF PATIENT CARE PER NURSING PROTOCOL Performed By: #### L 501.4020, L500.2500, L100.0100 #### [facility] [address] [place], [address] FINGERSTICK GLU 79 mg/dL Normal 74-106 [facility] Comment on above: Result Comment: JEAN GEMENT OF PATIENT CARE PER NURSING PROTOCOL Performed By: #### L 501.080 ####[facility] [address] [place], [address] FINGERSTICK GLU 67 mg/dL Low 74-106 [facility] Comment on above: Result Comment: JEAN GEMENT OF PATIENT CARE PER NURSING PROTOCOL Performed By: #### L 501.080 ####[facility] [address] [place], [address] Culture, Blood (WB)on 2023 CUB No growth in 5 days. Normal [facility] Comment on above: Performed By: #### L 501.4020, L500.2500, L100.0100 #### [facility] [address] [place], [address] CUB No growth in 5 days. Normal [facility] Comment on above: Performed By: #### L 501.4020, L500.2500, L100.0100 #### [facility] [address] [place], [address] Basic Metabolic Profile (BMP )on 08-30-2023 BUN/CRE 39.5 RATIO High 10-20 [facility] Comment on above: Performed By: #### L 501.4020, L500.2500, L100.0100 #### [facility] [address] [place], [address] CA,Total 9.0 mg/dL Normal 8.5-10.1 [facility] Comment on above: Performed By: #### L 501.4020, L500.2500, L100.0100 #### [facility] [address] [place], [address] Chloride [Moles/Vol] 107 mmol/L Normal 98-107 [facility] Comment on above: Performed By: #### L 501.4020, L500.2500, L100.0100 #### [facility] [address] [place], [address] CO2 [Moles/Vol] 24.0 mmol/L Normal 21.0-32.0 [facility] Comment on above: Performed By: #### L 501.4020, L500.2500, L100.0100 #### [facility] [address] [place], [address] Creatinine [Mass/Vol] 0.63 mg/dL Normal 0.55-1.02 [facility] Comment on above: Result Comment: The validity of the calculated GFR GFRAA in patients over 70 years has not been determined. Clinical correlation is essential. Performed By: #### L 501.4020, L500.2500, L100.0100 #### [facility] [address] [place], [address] ECRCL 69.78 ml/min Normal [facility] Comment on above: Performed By: #### L 501.4020, L500.2500, L100.0100 #### [facility] [address] [place], [address] EST GFR - AA 119 mL/min Normal >60 [facility] Comment on above: Result Comment: Afri can Latvian GFR Calc Performed By: #### L 501.4020, L500.2500, L100.0100 #### [facility] [address] [place], [address] GAP 7 Normal 5-15 [facility] Comment on above: Performed By: #### L 501.4020, L500.2500, L100.0100 #### [facility] [address] [place], [address] GFR/1.73 sq M.predicted among non-blacks MDRD (S/P/Bld) [Vol rate/Area] 98 mL/min/{1.73_m2} Normal >60 [facility] Comment on above: Result Comment: Non- GFR Calc Performed By: #### L 501.4020, L500.2500, L100.0100 #### [facility] [address] [place], [address] Glucose [Mass/Vol] 77 mg/dL Normal 74-106 [facility] Comment on above: Performed By: #### L 501.4020, L500.2500, L100.0100 #### [facility] [address] [place], [address] Potassium [Moles/Vol] 3.8 mmol/L Normal 3.5-5.1 [facility] Comment on above: Performed By: #### L 501.4020, L500.2500, L100.0100 #### [facility] [address] [place], [address] Sodium [Moles/Vol] 138 mmol/L Normal 136-145 [facility] Comment on above: Performed By: #### L 501.4020, L500.2500, L100.0100 #### [facility] [address] [place], [address] Urea nitrogen [Mass/Vol] 25 mg/dL High 7-18 [facility] Comment on above: Performed By: #### L 501.4020, L500.2500, L100.0100 #### [facility] [address] [place], [address] Bedside Glucoseon 08-30-2023 FINGERSTICK GLU 77 mg/dL Normal 74-106 [facility] Comment on above: Result Comment: JEAN GEMENT OF PATIENT CARE PER NURSING PROTOCOL Performed By: #### L 501.4020, L500.2500, L100.0100 #### [facility] [address] [place], [address] FINGERSTICK GLU 77 mg/dL Normal 74-106 [facility] Comment on above: Result Comment: JEAN GEMENT OF PATIENT CARE PER NURSING PROTOCOL Performed By: #### L 501.080 #### [facility] [address] [place], [address] FINGERSTICK GLU 93 mg/dL Normal 74-106 [facility] Comment on above: Result Comment: JEAN GEMENT OF PATIENT CARE PER NURSING PROTOCOL Performed By: #### L 501.4020, L500.2500, L100.0100 #### [facility] [address] [place], [address] FINGERSTICK GLU 79 mg/dL Normal 74-106 [facility] Comment on above: Result Comment: JEAN GEMENT OF PATIENT CARE PER NURSING PROTOCOL Performed By: #### L 501.080 ####[facility] [address] [place], [address] FINGERSTICK GLU 90 mg/dL Normal 74-106 [facility] Comment on above: Result Comment: JEAN GEMENT OF PATIENT CARE PER NURSING PROTOCOL Performed By: #### L 501.080 ####[facility] [address] [place], [address] FINGERSTICK GLU 69 mg/dL Low 74-106 [facility] Comment on above: Result Comment: JEAN GONZALES OF PATIENT CARE PER NURSING PROTOCOL Performed By: #### L 501.080 #### [facility] [address] [place], [address] CBC W/Diff, Automatedon 07-0 8-2023 Absolute Lymph 1.34 X10 3/uL Normal 0.83-4.51 [facility] Comment on above: Performed By: #### L 501.4020, L500.2500, L100.0100 #### [facility] [address] [place], [address] Absolute Neut 11.5 X10 3/uL High 2.0-7.7 [facility] Comment on above: Performed By: #### L 501.4020, L500.2500, L100.0100 #### [facility] [address] [place], [address] Basophils/100 WBC (Bld) 0.4 % Normal 0-1 [facility] Comment on above: Performed By: #### L 501.4020, L500.2500, L100.0100 #### [facility] [address] [place], [address] Eosinophils/100 WBC (Bld) 0.6 % Normal 0-5 [facility] Comment on above: Performed By: #### L 501.4020, L500.2500, L100.0100 #### [facility] [address] [place], [address] Erythrocyte distribution width (RBC) [Ratio] 14.2 % Normal 11.6-14.6 [facility] Comment on above: Performed By: #### L 501.4020, L500.2500, L100.0100 #### [facility] [address] [place], [address] Hematocrit (Bld) [Volume fraction] 37.9 % Normal 37-47 [facility] Comment on above: Performed By: #### L 501.4020, L500.2500, L100.0100 #### [facility] [address] [place], [address] Hemoglobin (Bld) [Mass/Vol] 12.0 g/dL Normal 12.0-15.0 [facility] Comment on above: Performed By: #### L 501.4020, L500.2500, L100.0100 #### [facility] [address] [place], [address] IG% 1.400 High 0.0-0.9 [facility] Comment on above: Result Comment: IG% - Immature Granulocytes (promyelocytes, myelocytes and metamyelocytes) > 1% indicates that a LEFT SHIFT is Present. Performed By: #### L 501.4020, L500.2500, L100.0100 #### [facility] [address] [place], [address] Lymphocytes/100 WBC (Bld) 9.7 % Low 19-41 [facility] Comment on above: Performed By: #### L 501.4020, L500.2500, L100.0100 #### [facility] [address] [place], [address] MCH (RBC) [Entitic mass] 31.3 pg Normal 27.0-32.0 [facility] Comment on above: Performed By: #### L 501.4020, L500.2500, L100.0100 #### [facility] [address] [place], [address] MCHC (RBC) [Mass/Vol] 31.7 g/dL Low 32-36 [facility] Comment on above: Performed By: #### L 501.4020, L500.2500, L100.0100 #### [facility] [address] [place], [address] MCV (RBC) [Entitic vol] 99.0 fL Normal 81-99 [facility] Comment on above: Performed By: #### L 501.4020, L500.2500, L100.0100 #### [facility] [address] [place], [address] Monocytes/100 WBC (Bld) 5.1 % Normal 0-10 [facility] Comment on above: Performed By: #### L 501.4020, L500.2500, L100.0100 #### [facility] [address] [place], [address] Neutrophils/100 WBC (Bld) 82.8 % High 47-70 [facility] Comment on above: Performed By: #### L 501.4020, L500.2500, L100.0100 #### [facility] [address] [place], [address] Nucleated RBC (Bld) [#/Vol] 0 10*3/uL Normal 0-5 [facility] Comment on above: Performed By: #### L 501.4020, L500.2500, L100.0100 #### [facility] [address] [place], [address] Platelet mean volume (Bld) [Entitic vol] 12.5 fL High 6.2-12.0 [facility] Comment on above: Performed By: #### L 501.4020, L500.2500, L100.0100 #### [facility] [address] [place], [address] Platelets (Bld) [#/Vol] 173 10*3/uL Normal 150-450 [facility] Comment on above: Performed By: #### L 501.4020, L500.2500, L100.0100 #### [facility] [address] [place], [address] RBC (Bld) [#/Vol] 3.83 10*6/uL Low 4.2-5.4 [facility] Comment on above: Performed By: #### L 501.4020, L500.2500, L100.0100 #### [facility] [address] [place], [address] RDW SD 52.1 fl High 35.1-43.9 [facility] Comment on above: Performed By: #### L 501.4020, L500.2500, L100.0100 #### [facility] [address] [place], [address] WBC (Bld) [#/Vol] 13.9 10*3/uL High 4.4-11.0 [facility] Comment on above: Performed By: #### L 501.4020, L500.2500, L100.0100 #### [facility] [address] [place], [address] Basic Metabolic Profile (BMP )on 08-29-2023 BUN/CRE 37.9 RATIO High 10-20 [facility] Comment on above: Performed By: #### L 501.4020, L500.2500, L100.0100 #### [facility] [address] [place], [address] CA,Total 8.8 mg/dL Normal 8.5-10.1 [facility] Comment on above: Performed By: #### L 501.4020, L500.2500, L100.0100 #### [facility] [address] [place], [address] Chloride [Moles/Vol] 105 mmol/L Normal 98-107 [facility] Comment on above: Performed By: #### L 501.4020, L500.2500, L100.0100 #### [facility] [address] [place], [address] CO2 [Moles/Vol] 26.0 mmol/L Normal 21.0-32.0 [facility] Comment on above: Performed By: #### L 501.4020, L500.2500, L100.0100 #### [facility] [address] [place], [address] Creatinine [Mass/Vol] 0.76 mg/dL Normal 0.55-1.02 [facility] Comment on above: Result Comment: The validity of the calculated GFR GFRAA in patients over 70 years has not been determined. Clinical correlation is essential. Performed By: #### L 501.4020, L500.2500, L100.0100 #### [facility] [address] [place], [address] ECRCL 69.78 ml/min Normal [facility] Comment on above: Performed By: #### L 501.4020, L500.2500, L100.0100 #### [facility] [address] [place], [address] EST GFR - AA 96 mL/min Normal >60 [facility] Comment on above: Result Comment: Afri can Latvian GFR Calc Performed By: #### L 501.4020, L500.2500, L100.0100 #### [facility] [address] [place], [address] GAP 7 Normal 5-15 [facility] Comment on above: Performed By: #### L 501.4020, L500.2500, L100.0100 #### [facility] [address] [place], [address] GFR/1.73 sq M.predicted among non-blacks MDRD (S/P/Bld) [Vol rate/Area] 79 mL/min/{1.73_m2} Normal >60 [facility] Comment on above: Result Comment: Non- GFR Calc Performed By: #### L 501.4020, L500.2500, L100.0100 #### [facility] [address] [place], [address] Glucose [Mass/Vol] 70 mg/dL Low 74-106 [facility] Comment on above: Performed By: #### L 501.4020, L500.2500, L100.0100 #### [facility] [address] [place], [address] Potassium [Moles/Vol] 3.8 mmol/L Normal 3.5-5.1 [facility] Comment on above: Performed By: #### L 501.4020, L500.2500, L100.0100 #### [facility] [address] [place], [address] Sodium [Moles/Vol] 138 mmol/L Normal 136-145 [facility] Comment on above: Performed By: #### L 501.4020, L500.2500, L100.0100 #### [facility] [address] [place], [address] Urea nitrogen [Mass/Vol] 29 mg/dL High 7-18 [facility] Comment on above: Performed By: #### L 501.4020, L500.2500, L100.0100 #### [facility] [address] [place], [address] Bedside Glucoseon 08-29-2023 FINGERSTICK GLU 101 mg/dL Normal 74-106 [facility] Comment on above: Result Comment: JEAN GEMENT OF PATIENT CARE PER NURSING PROTOCOL Performed By: #### L 501.080 ####[facility] [address] [place], [address] FINGERSTICK GLU 75 mg/dL Normal 74-106 [facility] Comment on above: Result Comment: JEAN GEMENT OF PATIENT CARE PER NURSING PROTOCOL Performed By: #### L 501.080 #### [facility] [address] [place], [address] FINGERSTICK GLU 60 mg/dL Low 74-106 [facility] Comment on above: Result Comment: JEAN GEMENT OF PATIENT CARE PER NURSING PROTOCOL Performed By: #### L 501.080 ####[facility] [address] [place], [address] FINGERSTICK GLU 67 mg/dL Low 74-106 [facility] Comment on above: Result Comment: JEAN GEMENT OF PATIENT CARE PER NURSING PROTOCOL Performed By: #### L 501.4020, L500.2500, L100.0100 #### [facility] [address] [place], [address] FINGERSTICK GLU 78 mg/dL Normal 74-106 [facility] Comment on above: Result Comment: JEAN GEMENT OF PATIENT CARE PER NURSING PROTOCOL Performed By: #### L 501.4020, L500.2500, L100.0100 #### [facility] [address] [place], [address] FINGERSTICK GLU 122 mg/dL High 74-106 [facility] Comment on above: Result Comment: JEAN GEMENT OF PATIENT CARE PER NURSING PROTOCOL Performed By: #### L 501.4020, L500.2500, L100.0100 #### [facility] [address] [place], [address] FINGERSTICK GLU 82 mg/dL Normal 74-106 [facility] Comment on above: Result Comment: JEAN GEMENT OF PATIENT CARE PER NURSING PROTOCOL Performed By: #### L 501.4020, L500.2500, L100.0100 #### [facility] [address] [place], [address] CBC W/Diff, Automatedon 07-0 -2023 Absolute Lymph 1.15 X10 3/uL Normal 0.83-4.51 [facility] Comment on above: Performed By: #### L 501.4020, L500.2500, L100.0100 #### [facility] [address] [place], [address] Absolute Neut 11.4 X10 3/uL High 2.0-7.7 [facility] Comment on above: Performed By: #### L 501.4020, L500.2500, L100.0100 #### [facility] [address] [place], [address] Basophils/100 WBC (Bld) 0.4 % Normal 0-1 [facility] Comment on above: Performed By: #### L 501.4020, L500.2500, L100.0100 #### [facility] [address] [place], [address] Eosinophils/100 WBC (Bld) 0.5 % Normal 0-5 [facility] Comment on above: Performed By: #### L 501.4020, L500.2500, L100.0100 #### [facility] [address] [place], [address] Erythrocyte distribution width (RBC) [Ratio] 14.0 % Normal 11.6-14.6 [facility] Comment on above: Performed By: #### L 501.4020, L500.2500, L100.0100 #### [facility] [address] [place], [address] Hematocrit (Bld) [Volume fraction] 35.8 % Low 37-47 [facility] Comment on above: Performed By: #### L 501.4020, L500.2500, L100.0100 #### [facility] [address] [place], [address] Hemoglobin (Bld) [Mass/Vol] 11.4 g/dL Low 12.0-15.0 [facility] Comment on above: Performed By: #### L 501.4020, L500.2500, L100.0100 #### [facility] [address] [place], [address] IG% 0.500 Normal 0.0-0.9 [facility] Comment on above: Result Comment: IG% - Immature Granulocytes (promyelocytes, myelocytes and metamyelocytes) > 1% indicates that a LEFT SHIFT is Present. Performed By: #### L 501.4020, L500.2500, L100.0100 #### [facility] [address] [place], [address] Lymphocytes/100 WBC (Bld) 8.5 % Low 19-41 [facility] Comment on above: Performed By: #### L 501.4020, L500.2500, L100.0100 #### [facility] [address] [place], [address] MCH (RBC) [Entitic mass] 31.4 pg Normal 27.0-32.0 [facility] Comment on above: Performed By: #### L 501.4020, L500.2500, L100.0100 #### [facility] [address] [place], [address] MCHC (RBC) [Mass/Vol] 31.8 g/dL Low 32-36 [facility] Comment on above: Performed By: #### L 501.4020, L500.2500, L100.0100 #### [facility] [address] [place], [address] MCV (RBC) [Entitic vol] 98.6 fL Normal 81-99 [facility] Comment on above: Performed By: #### L 501.4020, L500.2500, L100.0100 #### [facility] [address] [place], [address] Monocytes/100 WBC (Bld) 5.5 % Normal 0-10 [facility] Comment on above: Performed By: #### L 501.4020, L500.2500, L100.0100 #### [facility] [address] [place], [address] Neutrophils/100 WBC (Bld) 84.6 % High 47-70 [facility] Comment on above: Performed By: #### L 501.4020, L500.2500, L100.0100 #### [facility] [address] [place], [address] Nucleated RBC (Bld) [#/Vol] 0 10*3/uL Normal 0-5 [facility] Comment on above: Performed By: #### L 501.4020, L500.2500, L100.0100 #### [facility] [address] [place], [address] Platelet mean volume (Bld) [Entitic vol] 13.0 fL High 6.2-12.0 [facility] Comment on above: Performed By: #### L 501.4020, L500.2500, L100.0100 #### [facility] [address] [place], [address] Platelets (Bld) [#/Vol] 148 10*3/uL Low 150-450 [facility] Comment on above: Performed By: #### L 501.4020, L500.2500, L100.0100 #### [facility] [address] [place], [address] RBC (Bld) [#/Vol] 3.63 10*6/uL Low 4.2-5.4 [facility] Comment on above: Performed By: #### L 501.4020, L500.2500, L100.0100 #### [facility] [address] [place], [address] RDW SD 51.8 fl High 35.1-43.9 [facility] Comment on above: Performed By: #### L 501.4020, L500.2500, L100.0100 #### [facility] [address] [place], [address] WBC (Bld) [#/Vol] 13.5 10*3/uL High 4.4-11.0 [facility] Comment on above: Performed By: #### L 501.4020, L500.2500, L100.0100 #### [facility] [address] [place], [address] CRPon 08-29-2023 C-REACTIVE PROT 311.00 mg/L High 0.0-3.0 [facility] Comment on above: Result Comment: C-Re active Protein (CRP) provides useful information for the diagnosis, therapy and monitoring of inflammatory processes and associated diseases. For the evaluation of Relative Risk for Cardiovascular Disease, a High Sensitivity CRP (HSCRP) should be ordered. Performed By: #### L 501.080 #### [facility] [address] [place], [address] Erythrocyte Sed Rateon 08-28 SED RATE 77 mm/hr High 0-30 [facility] Comment on above: Performed By: #### L 101.9900 ####[facility] [address] [place], [address] Foot min 3 Viewson 4 Foot min 3 Views [facility] Imaging Services [address] [place] [address] Foot min 3 Views MR#: [id number] Acct: [id number] Name: YENIFERDAVID Ramesh Rep #: [id number] : 1950 F 73 From: Christian gilliam MD PCP: Dr. Richie Heredia, Status: ADM IN Study: Foot min 3 Views Date of Exam: 08/29/23 Exam# [id number] Ordering Dr: Jaya Rachel MD [id number] INDICATION: RIGHT FOOT AND TOES PAIN EXAMINATION/TECHNIQU E: X-RAY - RIGHT XR Foot Min 3 Views 3 VIEWS COMPARISON: No relevant prior comparison study available ____ FINDINGS: SOFT TISSUES: No soft tissue swelling or gas. No radiopaque foreign body. BONES/JOINTS: No acute fracture or subluxation.. Normal alignment. Preservation of the joint space.. No sclerotic or destructive changes observed. Heel spurs are noted. RAD/Foot min 3 Views IMPRESSION: No fracture or malalignment. Electronically Signed: Christian Huggins MD at 5:21 EDT , CC: Dr. Richie Heredia DO; Dr. Jaya Rachel MD Slab Depiler Operator: Signed Normal [facility] Tibia Fibula 2 Viewson 08-28 Tibia Fibula 2 Views [facility] Imaging Services [address] [place] [address] Tibia Fibula 2 Views MR#: [id number] Acct: [id number] Name: DAVID STREET Rep #: [id number] : 1950 F 73 From: Pritesh Chandler PCP: Dr. Richie Heredia DO Status: ADM IN Study: Tibia Fibula 2 Views Date of Exam: 08/29/23 Exam# [id number] Ordering Dr: Jaya Rachel MD [id number] EXAM: XR RIGHT TIBIA AND FIBULA, 1 VIEW CLINICAL INDICATION: RIGHT LEG PAIN TECHNIQUE: Frontal or lateral views of the right tibia and fibula. COMPARISON: No relevant prior studies available. FINDINGS: BONES/JOINTS: Total knee arthroplasty. Achilles enthesophyte. No acute fracture. No dislocation. SOFT TISSUES: Soft tissue calcifications. No radiopaque foreign body. RAD/Tibia Fibula 2 Views IMPRESSION: No acute findings in the right tibia and fibula or surrounding soft tissues. Electronically Signed: Pritesh Benson MD at 21:44 EDT , CC: Dr. Richie Heredia DO; Dr. Jaya Rachel MD Slab Depiler Operator: Signed Normal [facility] Uric Acidon 08-29-2023 URIC 5.7 mg/dL Normal 2.6-6.0 [facility] Comment on above: Result Comment: The drugs N-Acetylcysteine and Metamizole may falsely depress this assay. Performed By: #### L 501.1400, L501.6710 ####[facility] [address] [place], [address] Venous Duplex US - Placido Extre [facility] 08-29-2023 Venous Duplex US - Placido Extrem [facility] [address] [place] [address] Venous Duplex US - Placido Extrem 08/30/23 0847 MR#: [id number] Acct: [id number] Name: DAVID STREET Rep #: [id number] : 1950 73 From: Mejia Vega MD Attending Dr: Dr. Mejia Grissom DO Status: ADM IN Ordering Dr: Jaya Rachel MD Date: 08/29/23 Location: U Sex: F C Admitted: 08/26/23 Reason For Study: Bilateral leg pain RIGHT LEFT GSV is normal. GSV is normal. CFV is compressible, spontaneous, phasic, CFV is compressible, spontaneous, phasic, competent and demonstrates normal competent, and demonstrates normal augmentation. augmentation. FV is compressible, spontaneous, phasic, FV is compressible, spontaneous, phasic, competent and demonstrates normal competent and demonstrates normal augmentation. augmentation. POP V is compressible, spontaneous, phasic, POP V is compressible, spontaneous, phasic, competent and demonstrates normal competent and demonstrates normal augmentation. augmentation. T/P Trunk is compressible. T/P Trunk is compressible. PTV is compressible. PTV is compressible. RT PerV is compressible. LT PerV is compressible. Procedure This is a venous duplex using B-mode, color flow and spectral Doppler. Exam performed portable in patient room. The study was technically difficult. A preliminary report was called and/or faxed to [facility]. VL/Venous Duplex US - Placido Extrem Interpretation Summary Deep veins of the bilateral lower extremities are patent and compressible segmentally. There is no evidence of bilateral lower extremity deep vein thrombosis. The bilateral great saphenous veins appear patent and compressible segmentally. Ordering Physician: Jaya Rachel Referring Physician: Richie Heredia Performed By: Sarai Ashby RVT 08/31/23 1534 Date Mejia Vega MD CC: Dr. Mejia Grissom DO; Dr. Richie Heredia DO; Dr. Jaya Rachel MD Date Dictated: 08/30/23 0847 Date Transcribed: 08/31/[id number] Slab Depiler Operator: Signed Normal [facility] Bedside Glucoseon 08-28-2023 FINGERSTICK GLU 88 mg/dL Normal 74-106 [facility] Comment on above: Result Comment: JEAN GEMENT OF PATIENT CARE PER NURSING PROTOCOL Performed By: #### L 501.080 #### [facility] [address] [place], [address] FINGERSTICK GLU 96 mg/dL Normal 74-106 [facility] Comment on above: Result Comment: JEAN GEMENT OF PATIENT CARE PER NURSING PROTOCOL Performed By: #### L 501.080 #### [facility] [address] [place], [address] FINGERSTICK GLU 138 mg/dL High 74-106 [facility] Comment on above: Result Comment: JEAN GEMENT OF PATIENT CARE PER NURSING PROTOCOL Performed By: #### L 501.080 #### [facility] [address], [address] FINGERSTICK GLU 101 mg/dL Normal 74-106 [facility] Comment on above: Result Comment: JEAN GEMENT OF PATIENT CARE PER NURSING PROTOCOL Performed By: #### L 501.080 #### [facility] [address] [place], [address] Magnesiumon 08-28-2023 Magnesium [Mass/Vol] 2.5 mg/dL Normal 1.6-2.6 [facility] Comment on above: Performed By: #### L 501.080 #### [facility] [address] [place], [address] Phosphoruson 08-28-2023 Phosphate [Mass/Vol] 2.6 mg/dL Normal 2.5-4.9 [facility] Comment on above: Performed By: #### L 501.080 #### [facility] [address] [place], [address] 12 Lead EKGon 08-27-2023 12 Lead EKG [facility] Cardiovascular Services [address] [place] [address] 12 Lead EKG 08/27/23 1131 MR#: [id number] Acct: [id number] Name: DAVID STREET Rep #: [id number] : 1950 73 From: Alberto Williamson MD Attending Dr: Dr. Mejia Grissom, Status: ADM IN Ordering Dr: Daryl Verduzco MD Date: 08/27/23 Location: [facility] Sex: F C Admitted: 08/26/23 Test Reason : REPEAT Blood Pressure : / mmHG Vent. Rate : 139 BPM Atrial Rate : 139 BPM P-R Int : 154 ms QRS Dur : 098 ms QT Int : 294 ms P-R-T Axes : 068 -60 075 degrees QTc Int : 447 ms Sinus tachycardia Left anterior fascicular block Inferior infarct , age undetermined Abnormal ECG When compared with ECG of 27-AUG-2023 10:48, MANUAL COMPARISON REQUIRED, DATA IS UNCONFIRMED Confirmed by GREER BRAGG, ALBERTO ([id number]), technical editor MARY SAENZ ([id number]) on 08/30/2023 10:26:24 AM Referred By: DAVID Confirmed By:ALBERTO WILLIAMSON MD 08/30/23 1026 Date Alberto Williamson MD CC: Dr. Daryl Verduzco MD; Dr. Mejia Grissom DO; Dr. Richie Heredia DO Signed Normal [facility] 12 Lead EKG [facility] Cardiovascular Services [address] [place] [address] 12 Lead EKG 08/26/23 1458 MR#: [id number] Acct: [id number] Name: DAVID STREET Rep #: [id number] : 1950 73 From: Richie Small MD Attending Dr: Dr. Mejia Grissom DO Status: ADM IN Ordering Dr: Daryl Verduzco MD Date: 08/27/23 Location: [facility] Sex: F C Admitted: 08/26/23 Test Reason : TACHY Blood Pressure : / mmHG Vent. Rate : 120 BPM Atrial Rate : 120 BPM P-R Int : 158 ms QRS Dur : 096 ms QT Int : 318 ms P-R-T Axes : 065 -45 071 degrees QTc Int : 449 ms Sinus tachycardia with Premature atrial complexes Low voltage QRS Left anterior fascicular block Cannot rule out Inferior infarct , age undetermined Cannot rule out Anterior infarct , age undetermined Abnormal ECG When compared with ECG of 26-AUG-2023 05:31, MANUAL COMPARISON REQUIRED, DATA IS UNCONFIRMED Confirmed by Richie Small ([id number]), technical editor MARY SAENZ ([id number]) on 08/31/2023 7:54:48 AM Referred By: Confirmed By:Richie Small 08/31/23 0754 Date Richie Small MD CC: Dr. Daryl Verduzco MD; Dr. Mejia Grissom DO; Dr. Richie Heredia DO Signed Normal [facility] Bedside Glucoseon 08-27-2023 FINGERSTICK GLU 123 mg/dL High 74-106 [facility] Comment on above: Result Comment: JEAN GEMENT OF PATIENT CARE PER NURSING PROTOCOL Performed By: #### L 501.080 #### [facility] [address] [place], [address] FINGERSTICK GLU 179 mg/dL High 74-106 [facility] Comment on above: Result Comment: JEAN GEMENT OF PATIENT CARE PER NURSING PROTOCOL Performed By: #### L 501.080 #### [facility] [address] [place], [address] FINGERSTICK GLU 136 mg/dL High -106 [facility] Comment on above: Result Comment: JEAN GEMENT OF PATIENT CARE PER NURSING PROTOCOL Performed By: #### L 501.080 #### [facility] [address] [place], [address] FINGERSTICK GLU 79 mg/dL Normal 74-106 [facility] Comment on above: Result Comment: JEAN GEMENT OF PATIENT CARE PER NURSING PROTOCOL Performed By: #### L 501.080 #### [facility] [address] [place], [address] CBC W/Diff, Automatedon 07-0 Absolute Lymph 0.66 X10 3/uL Low 0.83-4.51 [facility] Comment on above: Performed By: #### L 501.080 #### [facility] [address] [place], [address] Absolute Neut 13.3 X10 3/uL High 2.0-7.7 [facility] Comment on above: Performed By: #### L 501.080 #### [facility] [address] [place], [address] Basophils/100 WBC (Bld) 0.3 % Normal 0-1 [facility] Comment on above: Performed By: #### L 501.080 #### [facility] [address] [place], [address] Eosinophils/100 WBC (Bld) 0.1 % Normal 0-5 [facility] Comment on above: Performed By: #### L 501.080 #### [facility] [address] [place], [address] Erythrocyte distribution width (RBC) [Ratio] 13.9 % Normal 11.6-14.6 [facility] Comment on above: Performed By: #### L 501.080 #### [facility] [address] [place], [address] Hematocrit (Bld) [Volume fraction] 37.1 % Normal 37-47 [facility] Comment on above: Performed By: #### L 501.080 #### [facility] [address] [place], [address] Hemoglobin (Bld) [Mass/Vol] 11.9 g/dL Low 12.0-15.0 [facility] Comment on above: Performed By: #### L 501.080 #### [facility] [address] [place], [address] IG% 1.500 High 0.0-0.9 [facility] Comment on above: Result Comment: IG% - Immature Granulocytes (promyelocytes, myelocytes and metamyelocytes) > 1% indicates that a LEFT SHIFT is Present. Performed By: #### L 501.080 #### [facility] [address] [place], [address] Lymphocytes/100 WBC (Bld) 4.4 % Low 19-41 [facility] Comment on above: Performed By: #### L 501.080 #### [facility] [address] [place], [address] MCH (RBC) [Entitic mass] 31.2 pg Normal 27.0-32.0 [facility] Comment on above: Performed By: #### L 501.080 #### [facility] [address] [place], [address] MCHC (RBC) [Mass/Vol] 32.1 g/dL Normal 32-36 [facility] Comment on above: Performed By: #### L 501.080 #### [facility] [address] [place], [address] MCV (RBC) [Entitic vol] 97.4 fL Normal 81-99 [facility] Comment on above: Performed By: #### L 501.080 #### [facility] [address] [place], [address] Monocytes/100 WBC (Bld) 4.4 % Normal 0-10 [facility] Comment on above: Performed By: #### L 501.080 #### [facility] [address] [place], [address] Neutrophils/100 WBC (Bld) 89.3 % High 47-70 [facility] Comment on above: Performed By: #### L 501.080 #### [facility] [address] [place], [address] Nucleated RBC (Bld) [#/Vol] 0 10*3/uL Normal 0-5 [facility] Comment on above: Performed By: #### L 501.080 #### [facility] [address] [place], [address] Platelet mean volume (Bld) [Entitic vol] 12.1 fL High 6.2-12.0 [facility] Comment on above: Performed By: #### L 501.080 #### [facility] [address] [place], [address] Platelets (Bld) [#/Vol] 173 10*3/uL Normal 150-450 [facility] Comment on above: Performed By: #### L 501.080 #### [facility] [address] [place], [address] RBC (Bld) [#/Vol] 3.81 10*6/uL Low 4.2-5.4 [facility] Comment on above: Performed By: #### L 501.080 #### [facility] [address] [place], [address] RDW SD 50.1 fl High 35.1-43.9 [facility] Comment on above: Performed By: #### L 501.080 #### [facility] [address] [place], [address] WBC (Bld) [#/Vol] 14.9 10*3/uL High 4.4-11.0 [facility] Comment on above: Performed By: #### L 501.080 #### [facility] [address] [place], [address] PATH REV Reviewed Normal [facility] Comment on above: Result Comment: Neut rophilic leukocytosis. Clinical correlation necessary. Kenneth Ramos M.D. 08/27/23 AMENDED REPORT 08/27/23 0934 PATH REV previously reported as: June marychuy Performed By: #### L 501.080 #### [facility] [address] [place], [address] Comprehensive Metabolic Prof ilon 08-27-2023 Albumin [Mass/Vol] 2.1 g/dL Low 3.2-5.0 [facility] Comment on above: Performed By: #### L 501.080 #### [facility] [address] [place], [address] Albumin/Globulin [Mass ratio] 0.5 {ratio} Low 0.9-2.4 [facility] Comment on above: Performed By: #### L 501.080 #### [facility] [address] [place], [address] ALK P 96 U/L Normal 45-117 [facility] Comment on above: Performed By: #### L 501.080 #### [facility] [address] [place], [address] ALT [Catalytic activity/Vol] 11 U/L Low 13-56 [facility] Comment on above: Performed By: #### L 501.080 #### [facility] [address] [place], [address] AST [Catalytic activity/Vol] 20 U/L Normal 15-37 [facility] Comment on above: Performed By: #### L 501.080 #### [facility] [address] [place], [address] Bilirubin [Mass/Vol] 0.20 mg/dL Normal 0.20-1.00 [facility] Comment on above: Result Comment: For patients on eltrombopag therapy, use of Dimension [place] TBIL is not recommended. Performed By: #### L 501.080 #### [facility] [address] [place], [address] BUN/CRE 24.6 RATIO High 10-20 [facility] Comment on above: Performed By: #### L 501.080 #### [facility] [address] [place], [address] CA,Total 8.4 mg/dL Low 8.5-10.1 [facility] Comment on above: Performed By: #### L 501.080 #### [facility] [address] [place], [address] Chloride [Moles/Vol] 104 mmol/L Normal 98-107 [facility] Comment on above: Performed By: #### L 501.080 #### [facility] [address] [place], [address] CO2 [Moles/Vol] 25.0 mmol/L Normal 21.0-32.0 [facility] Comment on above: Performed By: #### L 501.080 #### [facility] [address] [place], [address] Creatinine [Mass/Vol] 1.38 mg/dL High 0.55-1.02 [facility] Comment on above: Result Comment: The validity of the calculated GFR GFRAA in patients over 70 years has not been determined. Clinical correlation is essential. Performed By: #### L 501.080 #### [facility] [address] [place], [address] ECRCL 40.45 ml/min Normal [facility] Comment on above: Performed By: #### L 501.080 #### [facility] [address] [place], [address] EST GFR - AA 48 mL/min Low >60 [facility] Comment on above: Result Comment: Afri can Latvian GFR Calc Performed By: #### L 501.080 #### [facility] [address] [place], [address] GAP 9 Normal 5-15 [facility] Comment on above: Performed By: #### L 501.080 #### [facility] [address] [place], [address] GFR/1.73 sq M.predicted among non-blacks MDRD (S/P/Bld) [Vol rate/Area] 40 mL/min/{1.73_m2} Low >60 [facility] Comment on above: Result Comment: Non- GFR Calc Performed By: #### L 501.080 #### [facility] [address] [place], [address] Globulin (S) [Mass/Vol] 4.1 g/dL Normal 2.2-4.2 [facility] Comment on above: Performed By: #### L 501.080 #### [facility] [address] [place], [address] Glucose [Mass/Vol] 175 mg/dL High 74-106 [facility] Comment on above: Result Comment: Fast ing Glucose result greater than or equal to 126 mg/dL suggests DIABETES MELLITUS per A.D.A. criteria. Performed By: #### L 501.080 #### [facility] [address] [place], [address] Potassium [Moles/Vol] 3.4 mmol/L Low 3.5-5.1 [facility] Comment on above: Performed By: #### L 501.080 #### [facility] [address] [place], [address] Sodium [Moles/Vol] 138 mmol/L Normal 136-145 [facility] Comment on above: Performed By: #### L 501.080 #### [facility] [address] [place], [address] T PROT 6.2 g/dL Low 6.4-8.2 [facility] Comment on above: Performed By: #### L 501.080 #### [facility] [address] [place], [address] Urea nitrogen [Mass/Vol] 34 mg/dL High 7-18 [facility] Comment on above: Performed By: #### L 501.080 #### [facility] [address] [place], [address] 12 Lead EKGon 08-26-2023 12 Lead EKG [facility] Services [address] [place] [address] 12 Lead EKG 08/27/23 1048 MR#: [id number] Acct: [id number] Name: DAVID STREET Rep #: [id number] : 1950 73 From: Alberto Williamson MD Attending Dr: Dr. Mejia Grissom DO Status: ADM IN Ordering Dr: Daryl Verduzco MD Date: 08/26/23 Location: [facility] Sex: F C Admitted: 08/26/23 Test Reason : CHANGE Blood Pressure : / mmHG Vent. Rate : 152 BPM Atrial Rate : 138 BPM P-R Int : 144 ms QRS Dur : 096 ms QT Int : 300 ms P-R-T Axes : 042 -67 083 degrees QTc Int : 477 ms Critical Test Result: High HR Paroxysmal Atrial Fibrillation and Sinus Tachycardia Left anterior fascicular block Cannot rule out Inferior infarct , age undetermined Cannot rule out Anterior infarct , age undetermined Abnormal ECG When compared with ECG of 26-AUG-2023 14:58, MANUAL COMPARISON REQUIRED, DATA IS UNCONFIRMED Confirmed by GREER BRAGG, ALBERTO ([id number]), technical editor MARY SAENZ ([id number]) on 08/30/2023 10:25:45 AM Referred By: DAVID Confirmed By:ALBERTO WILLIAMSON MD 08/30/23 1025 Date Alberto Williamson MD CC: Dr. Daryl Verduzco MD; Dr. Mejia Grissom DO; Dr. Richie Heredia DO Signed Normal [facility] 12 Lead EKG [facility] [address] [place] [address] 12 Lead EKG 08/26/23 0531 MR#: [id number] Acct: [id number] Name: DAVID STREET Rep #: [id number] : 1950 73 From: Richie Small MD Attending Dr: Dr. Mejia Grissom DO Status: ADM IN Ordering Dr: Maximilian Ellison DO Date: 08/26/23 Location: [facility] Sex: F C Admitted: 08/26/23 Test Reason : TACHY Blood Pressure : / mmHG Vent. Rate : 114 BPM Atrial Rate : 115 BPM P-R Int : 174 ms QRS Dur : 098 ms QT Int : 334 ms P-R-T Axes : 073 -40 060 degrees QTc Int : 460 ms Sinus tachycardia Left axis deviation Cannot rule out Inferior LA Cannot rule out Anterior infarct , age undetermined Abnormal ECG When compared with ECG of 26-JUL-2023 16:55, Vent. rate has increased BY 43 BPM Nonspecific T wave abnormality now evident in Lateral leads Confirmed by Richie Small ([id number]), technical editor MARY SAENZ ([id number]) on 08/31/2023 7:55:15 AM Referred By: Confirmed By:Richie Small 08/31/23 0755 Date Richie Small MD CC: Dr. Maximilian Ellison DO; Dr. Mejia Grissom DO; Dr. Richie Heredia DO Signed Normal [facility] Basic Metabolic Profile (BMP )on 08-26-2023 BUN/CRE 20.0 RATIO Normal 10-20 [facility] Comment on above: Performed By: #### L 501.080 #### [facility] [address] [place], [place], [address] ([address] CA,Total 8.5 mg/dL Normal 8.5-10.1 [facility] Comment on above: Performed By: #### L 501.080 #### [facility] [address] [place], [address] Chloride [Moles/Vol] 104 mmol/L Normal 98-107 [facility] Comment on above: Performed By: #### L 501.080 #### [facility] [address] [place], [address] CO2 [Moles/Vol] 24.0 mmol/L Normal 21.0-32.0 [facility] Comment on above: Performed By: #### L 501.080 #### [facility] [address] [place], [address] Creatinine [Mass/Vol] 1.15 mg/dL High 0.55-1.02 [facility] Comment on above: Result Comment: The validity of the calculated GFR GFRAA in patients over 70 years has not been determined. Clinical correlation is essential. Performed By: #### L 501.080 #### [facility] [address] [place], [address] ECRCL 48.54 ml/min Normal [facility] Comment on above: Performed By: #### L 501.080 #### [facility] [address] [place], [address] EST GFR - AA 60 mL/min Normal >60 [facility] Comment on above: Result Comment: Afri can Latvian GFR Calc Performed By: #### L 501.080 #### [facility] [address] [place], [address] GAP 10 Normal 5-15 [facility] Comment on above: Performed By: #### L 501.080 #### [facility] [address] [place], [address] GFR/1.73 sq M.predicted among non-blacks MDRD (S/P/Bld) [Vol rate/Area] 49 mL/min/{1.73_m2} Low >60 [facility] Comment on above: Result Comment: Non- GFR Calc Performed By: #### L 501.080 #### [facility] [address] [place], [address] Glucose [Mass/Vol] 197 mg/dL High 74-106 [facility] Comment on above: Result Comment: Fast ing Glucose result greater than or equal to 126 mg/dL suggests DIABETES MELLITUS per A.D.A. criteria. Performed By: #### L 501.080 #### [facility] [address] [place], [address] Potassium [Moles/Vol] 3.8 mmol/L Normal 3.5-5.1 [facility] Comment on above: Performed By: #### L 501.080 #### [facility] [address] [place], [address] Sodium [Moles/Vol] 138 mmol/L Normal 136-145 [facility] Comment on above: Performed By: #### L 501.080 #### [facility] [address] [place], [address] Urea nitrogen [Mass/Vol] 23 mg/dL High 7-18 [facility] Comment on above: Performed By: #### L 501.080 #### [facility] [address] [place], [address] Bedside Glucoseon 08-26-2023 FINGERSTICK GLU 188 mg/dL High 74-106 [facility] Comment on above: Result Comment: JEAN GEMENT OF PATIENT CARE PER NURSING PROTOCOL Performed By: #### L 501.080 #### [facility] [address] [place], [address] FINGERSTICK GLU 155 mg/dL High 74-106 [facility] Comment on above: Result Comment: JEAN GEMENT OF PATIENT CARE PER NURSING PROTOCOL Performed By: #### L 501.080 #### [facility] [address] [place], [address] FINGERSTICK GLU 139 mg/dL High 74-106 [facility] Comment on above: Result Comment: JEAN GEMENT OF PATIENT CARE PER NURSING PROTOCOL Performed By: #### L 501.080 ####[facility] [address] [place], [address] FINGERSTICK GLU 160 mg/dL High 74-106 [facility] Comment on above: Result Comment: JEAN GONZALES OF PATIENT CARE PER NURSING PROTOCOL Performed By: #### L 501.4020, L500.2500, L100.0100 #### [facility] [address] [place], [address] Blood Gases by [facility] 024 KADEEM TEST Positive Normal [facility] Comment on above: Performed By: #### L 9000.0800 ####[facility] [address] [place], [address] Base excess Calc (Bld) [Moles/Vol] -1 mmol/L Normal -2 to +2 [facility] Comment on above: Performed By: #### L 9000.0800 ####[facility] [address] [place], [address] Blood Gas Type ART Normal [facility] Comment on above: Performed By: #### L 9000.0800 ####[facility] [address] [place], [address] CO2 [Moles/Vol] 24 mmol/L Normal [facility] Comment on above: Performed By: #### L 9000.0800 ####[facility] [address] [place], [address] FI02 3.0 Normal [facility] Comment on above: Performed By: #### L 9000.0800 ####[facility] [address] [place], [address] HCO3 (Bld) [Moles/Vol] 23.3 mmol/L Normal 22-26 [facility] Comment on above: Performed By: #### L 9000.0800 ####[facility] [address] [place], [address] Mode Not entered Normal [facility] Comment on above: Performed By: #### L 9000.0800 ####[facility] [address] [place], [address] O2 Delivery Dev Cannula Normal [facility] Comment on above: Performed By: #### L 9000.0800 ####[facility] [address] [place], [address] pCO2 32.3 mmHg Low 35-45 [facility] Comment on above: Performed By: #### L 9000.0800 ####[facility] [address] [place], [address] pH (Bld) 7.47 [pH] High 7.35-7.45 [facility] Comment on above: Performed By: #### L 9000.0800 ####[facility] [address] [place], [address] PO2 99 mmHG Normal 75-100 [facility] Comment on above: Performed By: #### L 9000.0800 ####[facility] [address] [place], [address] SITE R Radial Normal [facility] Comment on above: Performed By: #### L 9000.0800 ####[facility] [address] [place], [address] SO2 98 Normal 95-99 [facility] Comment on above: Performed By: #### L 9000.0800 ####[facility] [address] [place], [address] Brain/Head W/WO Contraston 0 08-26-2023 Brain/Head W/WO Contrast [facility] Imaging Services [address] [place] [address] Brain/Head W/WO Contrast MR#: [id number] Acct: [id number] Name: DAVID STREET Rep #: [id number] : 1950 F 73 From: Holger Marquez MD PCP: Dr. Richie Heredia DO Status: ADM PIERCE Study: Brain/Head W/WO Contrast Date of Exam: 4 Exam# [id number] Ordering Dr: Daryl Verduzco MD [id number] STUDY: CT BRAIN WITH AND WITHOUT CONTRAST REASON FOR EXAM: Female, 73 years old. confusion RADIATION DOSAGE (If Supplied By Facility): CTDIvol = ( 44.99 ) mGy, DLP = ( 1580.97 ) mGycm TECHNIQUE: Transaxial CT imaging of the brain was performed pre and post contrast administration. The examination was performed with intravenous administration of IV 50mL Isovue-370. Individualized dose optimization techniques were used for this CT. COMPARISON: None. FINDINGS: Normal soft tissue structures. Normal calvarium. There is mild cerebral atrophy with widening of the extra-axial spaces and ventricular dilatation. There are areas of decreased attenuation within the white matter tracts of the supratentorial brain, consistent with microvascular disease changes. There are small punctate calcifications of the basal ganglia which are seen in the aging brain as a normal variant. Normal brainstem. Normal cerebellum. No suspicious enhancing lesion. There is no intracranial hemorrhage. There are no findings of an acute ischemic infarction. Normal visualized paranasal sinuses. CT/Brain/Head W/WO Contrast IMPRESSION: Age consistent senescent changes, no acute hemorrhage or midline shift, mass effect or enhancing lesion Electronically Signed: Aftab Marquez MD at 11:13 EDT , CC: Dr. Daryl Verduzco MD; Dr. Richie Heredia DO Slab Depiler Operator: Signed Normal [facility] Echo Completeon 08-26-2023 Echo Complete [facility] Cardi[facility] Services [address] [place], [place] [address] [address] Echo Complete 08/27/2331 MR#: [id number] Acct: [id number] Name: DAVID STREET Rep #: [id number] : 1950 73 From: Alberto Williamson MD Attending Dr: Dr. Daryl Verduzco MD Status: AD M IN Ordering Dr: Daryl Verduzco MD Date: 08/26/23 Location: [facility] Sex: F C Admitted: 08/26/23 Reason For Study: AFIB Procedure This was a 2D Doppler, Color Flow transthoracic echocardiogram. The study was technically difficult. Definity deferred due to patient becoming sick. Exam performed portable in patient room. Left Ventricle Normal LV size. Left ventricular systolic function is normal. The left ventricular ejection fraction is 60 %. No regional wall motion abnormalities noted. Right Ventricle Normal RV size. Normal systolic function. Mitral Valve There is moderate mitral annular calcification. Great Vessels Normal aortic root. Pericardium/Pleural No pericardial effusion. MMode/2D Measurements Calculations Ao root diam: 2.6 cm LAV(MOD-bp): 47.0 ml LA A4 area: 18.9 cm2 LAV(MOD-bp) Indexed: 24.2 ml/m2 LAV(MOD-sp2): 38.2 ml LAV(MOD-sp4): 45.9 ml _ LA dimension(2D): 3.8 cm RA A4 area: 12.2 cm2 TAPSE: 2.4 cm Doppler Measurements Calculations Ao V2 max: 162.3 cm/sec LV V1 max: 125.9 cm/sec Ao max P.6 mmHg LV V1 max P.3 mmHg Ao V2 mean: 122.9 cm/sec LV V1 mean P.9 mmHg Ao mean P.7 mmHg LV V1 mean: 93.3 cm/sec Ao V2 VTI: 23.5 cm LV V1 VTI: 23.3 cm AV (velocity ratio): 0.99 ECHO/Echo Complete Interpretation Summary Normal LV size. Left ventricular systolic function is normal. The left ventricular ejection fraction is 60 %. There is moderate mitral annular calcification. Ordering Physician: Daryl Verduzco Referring Physician: RICHIE HEREDIA Performed By: Laura Moeller and Student 08/27/231739 Date Alberto Williamson MD CC: Dr. Daryl Verduzco MD; Dr. Richie Heredia DO Date Dictated: 08/27/23930 Date Transcribed: 08/27/231739 Slab Depiler Operator: Signed Normal [facility] Lactic Acidon 08-26-2023 Lactate [Moles/Vol] 3.4 mmol/L Invalid Interpretation Code 0.4-1.9 [facility] Comment on above: Result Comment: Crit ical Result(s) Called at: 15:12:55 08/26/2023 by: Mi Mccarty. Results read back by same. Performed By: #### L 501.080 #### [facility] [address] [place], [address] Lactate [Moles/Vol] 2.5 mmol/L Invalid Interpretation Code 0.4-1.9 [facility] Comment on above: Order Comment: Y Result Comment: Crit ical Result(s) Called at: 06:19:45 08/26/2023 by: Huong Martins to Brianda Bustamante. Results read back by same. Performed By: #### L 503.6005 ####[facility] [address] [place], [address] M100.678on 08-26-2023 M100.678 Normal Reference Range = Negative GeneXpert Instrument, PCR method SARS-CoV-2 (COVID 19) Negative INFLUENZA A Negative INFLUENZA B Negative RSV PCR Negative Normal [facility] Comment on above: Performed By: #### L 501.4020, L500.2500, L100.0100 #### [facility] [address] [place], [address] Magnesiumon 08-26-2023 Magnesium [Mass/Vol] 1.4 mg/dL Low 1.6-2.6 [facility] Comment on above: Performed By: #### L 501.080 #### [facility] [address] [place], [address] Phosphoruson 08-26-2023 Phosphate [Mass/Vol] 1.7 mg/dL Low 2.5-4.9 [facility] Comment on above: Performed By: #### L 501.080 #### [facility] [address] [place], [address] Basic Metabolic Profile (BMP )on 08-25-2023 BUN/CRE 12.7 RATIO Normal 10-20 [facility] Comment on above: Performed By: #### L 100.0100, L500.2500 ####[facility] [address] [place], [address] CA,Total 8.7 mg/dL Normal 8.5-10.1 [facility] Comment on above: Performed By: #### L 100.0100, L500.2500 ####[facility] [address] [place], [address] Chloride [Moles/Vol] 100 mmol/L Normal 98-107 [facility] Comment on above: Performed By: #### L 100.0100, L500.2500 ####[facility] [address] [place], [address] CO2 [Moles/Vol] 27.0 mmol/L Normal 21.0-32.0 [facility] Comment on above: Performed By: #### L 100.0100, L500.2500 ####[facility] [address] [place], [address] Creatinine [Mass/Vol] 1.42 mg/dL High 0.55-1.02 [facility] Comment on above: Result Comment: The validity of the calculated GFR GFRAA in patients over 70 years has not been determined. Clinical correlation is essential. Performed By: #### L 100.0100, L500.2500 ####[facility] [address] [place], [address] ECRCL 39.92 ml/min Normal [facility] Comment on above: Performed By: #### L 100.0100, L500.2500 ####[facility] [address] [place], [address] EST GFR - AA 47 mL/min Low >60 [facility] Comment on above: Result Comment: Afri can Latvian GFR Calc Performed By: #### L 100.0100, L500.2500 ####[facility] [facility] [address] [place], [address] GAP 8 Normal 5-15 [facility] Comment on above: Performed By: #### L 100.0100, L500.2500 ####[facility] [address] [place], [address] GFR/1.73 sq M.predicted among non-blacks MDRD (S/P/Bld) [Vol rate/Area] 39 mL/min/{1.73_m2} Low >60 [facility] Comment on above: Result Comment: Non- GFR Calc Performed By: #### L 100.0100, L500.2500 ####[facility] [address] [place], [address] Glucose [Mass/Vol] 176 mg/dL High 74-106 [facility] Comment on above: Result Comment: Fast ing Glucose result greater than or equal to 126 mg/dL suggests DIABETES MELLITUS per A.D.A. criteria. Performed By: #### L 100.0100, L500.2500 ####[facility] [address] [place], [address] Potassium [Moles/Vol] 3.6 mmol/L Normal 3.5-5.1 [facility] Comment on above: Performed By: #### L 100.0100, L500.2500 ####[facility] [address] [place], [address] Sodium [Moles/Vol] 135 mmol/L Low 136-145 [facility] Comment on above: Performed By: #### L 100.0100, L500.2500 ####[facility] [address] [place], [address] Urea nitrogen [Mass/Vol] 18 mg/dL Normal 7-18 [facility] Comment on above: Performed By: #### L 100.0100, L500.2500 ####[facility] [address] [place], [address] Bedside Glucoseon 08-25-2023 FINGERSTICK GLU 181 mg/dL High 74-106 [facility] Comment on above: Result Comment: JEAN GEMENT OF PATIENT CARE PER NURSING PROTOCOL Performed By: #### L 501.4020, L500.2500, L100.0100 #### [facility] [address] [place], [address] FINGERSTICK GLU 189 mg/dL High 74-106 [facility] Comment on above: Result Comment: JEAN GEMENT OF PATIENT CARE PER NURSING PROTOCOL Performed By: #### L 501.080 #### [facility] [address] [place], [address] FINGERSTICK GLU 107 mg/dL High 74-106 [facility] Comment on above: Result Comment: JEAN GONZALES OF PATIENT CARE PER NURSING PROTOCOL Performed By: #### L 501.080 #### [facility] [address] [place], [address] Blood [facility] KADEEM TEST Positive Normal [facility] Comment on above: Performed By: #### L 9000.0800 ####[facility] [address] [place], [address] Base excess Calc (Bld) [Moles/Vol] 3 mmol/L High -2 to +2 [facility] Comment on above: Performed By: #### L 9000.0800 ####[facility] [address] [place], [address] Blood Gas Type ART Normal [facility] Comment on above: Performed By: #### L 9000.0800 ####[facility] [address] [place], [address] CO2 [Moles/Vol] 28 mmol/L Normal [facility] Comment on above: Performed By: #### L 9000.0800 ####[facility] [address] [place], [address] FI02 4.0 Normal [facility] Comment on above: Performed By: #### L 9000.0800 ####[facility] [address] [place], [address] HCO3 (Bld) [Moles/Vol] 26.9 mmol/L High 22-26 [facility] Comment on above: Performed By: #### L 9000.0800 ####[facility] [address] [place], [address] Mode Not entered Normal [facility] Comment on above: Performed By: #### L 9000.0800 ####[facility] [address] [place], [address] O2 Delivery Dev Cannula Normal [facility] Comment on above: Performed By: #### L 0.0800 ####[facility] [address] [place], [address] pCO2 40.3 mmHg Normal 35-45 [facility] Comment on above: Performed By: #### L 0.0800 ####[facility] [address] [place], [address] pH (Bld) 7.43 [pH] Normal 7.35-7.45 [facility] Comment on above: Performed By: #### L 0.0800 ####[facility] [address] [place], [address] PO2 90 mmHG Normal 75-100 [facility] Comment on above: Performed By: #### L 0.0800 ####[facility] [address] [place], [address] SITE R Brach Normal [facility] Comment on above: Performed By: #### L 0.0800 ####[facility] [address] [place], [address] SO2 97 Normal 95-99 [facility] Comment on above: Performed By: #### L 0.0800 ####[facility] [address] [place], [address] CBC W/Diff, Automatedon 07-0 3-2024 Absolute Lymph 0.90 X10 3/uL Normal 0.83-4.51 [facility] Comment on above: Performed By: #### L 100.0100, L500.2500 ####[facility] [address] [place], [address] Absolute Neut 12.4 X10 3/uL High 2.0-7.7 [facility] Comment on above: Performed By: #### L 100.0100, L500.2500 ####[facility] [address] [place], [address] Basophils/100 WBC (Bld) 0.5 % Normal 0-1 [facility] Comment on above: Performed By: #### L 100.0100, L500.2500 ####[facility] [address] [place], [address] Eosinophils/100 WBC (Bld) 0.3 % Normal 0-5 [facility] Comment on above: Performed By: #### L 100.0100, L500.2500 ####[facility] [address] [place], [address] Erythrocyte distribution width (RBC) [Ratio] 13.4 % Normal 11.6-14.6 [facility] Comment on above: Performed By: #### L 100.0100, L500.2500 ####[facility] [address] [place], [address] Hematocrit (Bld) [Volume fraction] 40.2 % Normal 37-47 [facility] Comment on above: Performed By: #### L 100.0100, L500.2500 ####[facility] [address] [place], [address] Hemoglobin (Bld) [Mass/Vol] 13.1 g/dL Normal 12.0-15.0 [facility] Comment on above: Performed By: #### L 100.0100, L500.2500 ####[facility] [address] [place], [address] IG% 0.900 Normal 0.0-0.9 [facility] Comment on above: Result Comment: IG% - Immature Granulocytes (promyelocytes, myelocytes and metamyelocytes) > 1% indicates that a LEFT SHIFT is Present. Performed By: #### L 100.0100, L500.2500 ####[facility] [address] [place], [address] Lymphocytes/100 WBC (Bld) 6.3 % Low 19-41 [facility] Comment on above: Performed By: #### L 100.0100, L500.2500 ####[facility] [address] [place], [address] MCH (RBC) [Entitic mass] 31.5 pg Normal 27.0-32.0 [facility] Comment on above: Performed By: #### L 100.0100, L500.2500 ####[facility] [address] [place], [address] MCHC (RBC) [Mass/Vol] 32.6 g/dL Normal 32-36 [facility] Comment on above: Performed By: #### L 100.0100, L500.2500 ####[facility] [address] [place], [address] MCV (RBC) [Entitic vol] 96.6 fL Normal 81-99 [facility] Comment on above: Performed By: #### L 100.0100, L500.2500 ####[facility] [address] [place], [address] Monocytes/100 WBC (Bld) 5.5 % Normal 0-10 [facility] Comment on above: Performed By: #### L 100.0100, L500.2500 ####[facility] [address] [place], [address] Neutrophils/100 WBC (Bld) 86.5 % High 47-70 [facility] Comment on above: Performed By: #### L 100.0100, L500.2500 ####[facility] [address] [place], [address] Nucleated RBC (Bld) [#/Vol] 0 10*3/uL Normal 0-5 [facility] Comment on above: Performed By: #### L 100.0100, L500.2500 ####[facility] [address] [place], [address] Platelet mean volume (Bld) [Entitic vol] 11.1 fL Normal 6.2-12.0 [facility] Comment on above: Performed By: #### L 100.0100, L500.2500 ####[facility] [address] [place], [address] Platelets (Bld) [#/Vol] 266 10*3/uL Normal 150-450 [facility] Comment on above: Performed By: #### L 100.0100, L500.2500 ####[facility] [address] [place], [address] RBC (Bld) [#/Vol] 4.16 10*6/uL Low 4.2-5.4 [facility] Comment on above: Performed By: #### L 100.0100, L500.2500 ####[facility] [address] [place], [address] RDW SD 47.8 fl High 35.1-43.9 [facility] Comment on above: Performed By: #### L 100.0100, L500.2500 ####[facility] [address] [place], [address] WBC (Bld) [#/Vol] 14.3 10*3/uL High 4.4-11.0 [facility] Comment on above: Performed By: #### L 100.0100, L500.2500 ####[facility] [address] [place], [address] Emergency Department Summary on 08-25-2023 Emergency Department Summary [facility] Medical Records Department [address] [place] [address] Emergency Department Summary 08/25/23 MR#: [id number] Acct: [id number] Name: DAVID STREET Rep #: [id number] : 1950 73 From: Coy Syed MD PCP: Dr. Richie Heredia, DO Status:REG ER Location: ED HPI HPI - Fall History of Present Illness Chief Complaint: Fall Informant: patient and EMS Narrative Narrative: 73-year-old female accidentally rolled out of bed falling to the floor against her left side, saying that she is having pain on the right side. Initially EMS reported that she was having pain in her right hip but the patient is pointing to her right flank/ribs. She has no more dyspnea than she usually does, she is on 4 L of oxygen at home for COPD stating that her symptoms have been relatively consistent there with regards to cough and trouble breathing. EMS did not appreciate any length discrepancy with regards to her lower extremities. Patient denies any pain or injury to her arms or her legs otherwise. She complains of no pain on the left hip where she landed. [facility] Medical History Hypercholesteremia Peripheral vascular disease Palpitations Vertigo Osteoarthritis Diabetes mellitus type 2 in obese Paroxysmal atrial fibrillation Obstructive sleep apnea Home Medications ???Medication ???Instructions ???Recorded ???Last Taken ???Type insulin glargine 100 unit/mL (3 100 units subcut QHS diabetes 03/14/14 11/14/19 23:00 History mL) subcutaneous pen oxycodone-acetaminop hen 5 mg-325 1 tab PO Q6H PAIN 04/02/16 01/26/23 History mg tablet gabapentin 400 mg capsule 400 mg PO DAILY NEUROPATHY 11/15/19 01/26/23 History aspirin 81 mg tablet,delayed 81 mg PO DAILY HEART HEALTH #90 10/25/20 01/26/23 Rx release tabs empagliflozin 25 mg tablet 25 mg PO DAILY DIABETES 05/23/21 01/26/23 History (Jardiance) metformin 500 mg tablet,extended 1,000 mg PO DAILY DIABETES 05/23/21 01/26/23 History release 24 hr ropinirole 0.5 mg tablet 0.5 - 1 mg PO QHS RESTLESS LEGS 05/23/21 01/26/23 History albuterol sulfate 90 mcg/actuation 2 puff inhalation Q4H SHORTNESS OF 01/27/23 01/26/23 History aerosol inhaler BREATH bumetanide 1 mg tablet 1 mg PO DAILY EDEMA 01/27/23 01/26/23 History bupropion HCl 150 mg 24 hr tablet, 150 mg PO DAILY DEPRESSION 01/27/23 01/26/23 History extended release calcium carbonate 600 mg-vitamin 1 tab PO BID SUPPLEMENT 01/27/23 01/26/23 History D3 10 mcg (400 unit) tablet escitalopram oxalate 20 mg tablet 20 mg PO DAILY DEPRESSION 01/27/23 01/26/23 History fluticasone fur. 100 mcg-umeclid 1 inh inhalation DAILY SHORTNESS 01/27/23 01/26/23 History 62.5 mcg-vilant 25 mcg OF BREATH/WHEEZING inhalat.powder (Trelegy Ellipta) gabapentin 400 mg capsule 800 mg PO QPM NEUROPATHY 01/27/23 01/26/23 History meloxicam 15 mg tablet 15 mg PO DAILY ARTHRITIS 01/27/23 01/26/23 History pravastatin 40 mg tablet 40 mg PO QPM CHOLESTEROL 01/27/23 01/26/23 History ropinirole 0.5 mg tablet 1 mg PO QPM PRN RESTLESS LEGS 01/27/23 Unknown History cefdinir 300 mg capsule 300 mg PO BID #14 caps 01/30/23 Unknown Rx Allergy/AdvReac Type Severity Reaction Status Date / Time ampicillin Allergy Hives Verified 08/25/23 05:14 codeine Allergy Hives Verified 08/25/23 05:14 meperidine HCl (From Demerol) Allergy Hives Verified 08/25/23 05:14 Penicillins (PCN) Allergy Hives Verified 08/25/23 05:14 propoxyphene napsylate (From Allergy Hives Verified 08/25/23 05:14 Darvocet-N) Family History Mother Heart disease Brother Heart disease Grandfather CVA (cerebral vascular accident) Grandmother Myocardial infarction Surgical History History of laparoscopic cholecystectomy ( 11/2019) History of lumpectomy of both breasts History of cardiac catheterization History of knee replacement History of hysterectomy History of tubal ligation History of appendectomy Social History Smoking Status: Former smoker alcohol intake: never substance use type: does not use caffeine: Yes Type: coffee Number of servings: 5 ROS ROS ED Constitutional Constitutional ED: Denies chills or fever(s) Eyes Eyes: Denies change in vision or diplopia ENT ENT ED: Denies rhinorrhea or sore throat Cardiovascular Cardiovascular: Reports other Details: Right-sided rib pain see HPI ; Denies chest pain or palpitations Respiratory/Chest Respiratory/Chest: Reports cough and dyspnea on exertion Gastrointestinal Gastrointestinal: Denies abdominal pain, diarrhea, nausea or vomiting Genitourinary Genitourinary ED: Denies dysuria or hematuria Muscu (more content not included)... Normal [facility] H AND P Exam - Hospitaliston 08-25-2023 H&P Exam - Hospitalist [facility] Medical Records Department [address] [place] [address] H P Exam - Hospitalist 08/25/23 0745 MR#: [id number] Acct: [id number] Name: DAVID STREET Rep #: [id number] : 1950 73 From: Maximilian Kitchen MD PCP: Dr. Richie Heredia, DO Status:ADM PIERCE [place] [facility] [id number] HPI - General General Date of Admission: 08/25/23 Date of Service: 08/25/23 Chief Complaint: Shortness of breath HPI Narrative DAVID STREET, is a 73 F with past medical history is again for diabetes mellitus type 2, morbid obesity with BMI of 48.2, chronic hypoxic respiratory failure on baseline home oxygen who presented with shortness of breath. Per patient symptoms have been ongoing for the past couple of days. She in addition did extremities intermittent fever and chills. She apparently had a fall on the morning of her admission. She did call the EMS squad and was brought to the emergency department. She did complain of right flank pain imaging studies however did not show any broken ribs. She was found to have elevated WBC count as well as low-grade fever in addition to tachycardia. Checks x-ray and urinalysis both came back unremarkable admitted to regular nursing floor for further management [facility] Medical History Hypercholesteremia Peripheral vascular disease Palpitations Vertigo Osteoarthritis Diabetes mellitus type 2 in obese Paroxysmal atrial fibrillation Obstructive sleep apnea Home Medications ???Medication ???Instructions ???Recorded ???Last Taken ???Type insulin glargine 100 unit/mL (3 100 units subcut QHS diabetes 03/14/14 11/14/19 23:00 History mL) subcutaneous pen oxycodone-acetaminop hen 5 mg-325 1 tab PO Q6H PAIN 04/02/16 01/26/23 History mg tablet gabapentin 400 mg capsule 400 mg PO DAILY NEUROPATHY 11/15/19 01/26/23 History aspirin 81 mg tablet,delayed 81 mg PO DAILY HEART HEALTH #90 10/25/20 01/26/23 Rx release tabs empagliflozin 25 mg tablet 25 mg PO DAILY DIABETES 05/23/21 01/26/23 History (Jardiance) metformin 500 mg tablet,extended 1,000 mg PO DAILY DIABETES 05/23/21 01/26/23 History release 24 hr ropinirole 0.5 mg tablet 0.5 - 1 mg PO QHS RESTLESS LEGS 05/23/21 01/26/23 History albuterol sulfate 90 mcg/actuation 2 puff inhalation Q4H SHORTNESS OF 01/27/23 01/26/23 History aerosol inhaler BREATH bumetanide 1 mg tablet 1 mg PO DAILY EDEMA 01/27/23 01/26/23 History bupropion HCl 150 mg 24 hr tablet, 150 mg PO DAILY DEPRESSION 01/27/23 01/26/23 History extended release calcium carbonate 600 mg-vitamin 1 tab PO BID SUPPLEMENT 01/27/23 01/26/23 History D3 10 mcg (400 unit) tablet escitalopram oxalate 20 mg tablet 20 mg PO DAILY DEPRESSION 01/27/23 01/26/23 History fluticasone fur. 100 mcg-umeclid 1 inh inhalation DAILY SHORTNESS 01/27/23 01/26/23 History 62.5 mcg-vilant 25 mcg OF BREATH/WHEEZING inhalat.powder (Trelegy Ellipta) gabapentin 400 mg capsule 800 mg PO QPM NEUROPATHY 01/27/23 01/26/23 History meloxicam 15 mg tablet 15 mg PO DAILY ARTHRITIS 01/27/23 01/26/23 History pravastatin 40 mg tablet 40 mg PO QPM CHOLESTEROL 01/27/23 01/26/23 History ropinirole 0.5 mg tablet 1 mg PO QPM PRN RESTLESS LEGS 01/27/23 Unknown History cefdinir 300 mg capsule 300 mg PO BID #14 caps 01/30/23 Unknown Rx Allergy/AdvReac Type Severity Reaction Status Date / Time ampicillin Allergy Hives Verified 08/25/23 05:14 codeine Allergy Hives Verified 08/25/23 05:14 meperidine HCl (From Demerol) Allergy Hives Verified 08/25/23 05:14 Penicillins (PCN) Allergy Hives Verified 08/25/23 05:14 propoxyphene napsylate (From Allergy Hives Verified 08/25/23 05:14 Darvocet-N) Family History Mother Heart disease Brother Heart disease Grandfather CVA (cerebral vascular accident) Grandmother Myocardial infarction Surgical History History of laparoscopic cholecystectomy ( 11/2019) History of lumpectomy of both breasts History of cardiac catheterization History of knee replacement History of hysterectomy History of tubal ligation History of appendectomy Social History Smoking Status: Former smoker alcohol intake: never substance use type: does not use caffeine: Yes Type: coffee Number of servings: 5 ROS ROS Narrative GENERAL: fever, chills, night sweats, HEENT: denies headache, sinus congestion, RESPIRATORY: shortness of breath, dyspnea on exertion CARDIAC: denies chest pain, palpitations, orthopnea, GASTROINTESTINAL: denies abdominal pain, nausea, GENITOURINARY: denies dysuria, urgency, frequency, EXTREMITY: denies swelling MUSCULOSKELETAL: Right flank pain NEUROLOGIC: denies focal num (more content not included)... Normal [facility] Lactic Acidon 08-25-2023 Lactate [Moles/Vol] 3.2 mmol/L Invalid Interpretation Code 0.4-1.9 [facility] Comment on above: Result Comment: Crit ical Result(s) Called at: 11:00:25 08/25/2023 by: OTF COFFEY TO WENCESLAO FRYE. Results read back by same. Performed By: #### L 503.6005 ####[facility] [address] [place], [address] Lactate [Moles/Vol] 2.0 mmol/L Normal 0.4-1.9 [facility] Comment on above: Order Comment: 'TROP ' Serial specimen #1, #2 or #3: 1 Result Comment: Crit ical Result(s) Called at: 06:55:28 08/25/2023 by: YARY FLORIAN to Steve Ward. Results read back by same. Performed By: #### L 501.4020, L500.2500, L100.0100 #### [facility] [address] [place], [address] M100.678on 08-25-2023 M100.678 SARS-CoV-2 (COVID 19) Negative INFLUENZA A Negative INFLUENZA B Negative RSV PCR Negative Normal [facility] Comment on above: Performed By: #### L 400.0001, M100.678 ####[facility] [address] [place], [address] Pelvis 1 or 2 Viewson 2023 Pelvis 1 or 2 Views [facility] Imaging Services [address] [place] [address] Pelvis 1 or 2 Views MR#: [id number] Acct: [id number] Name: DAVID STREET Rep #: [id number] : 1950 F 73 From: Richie Chandler PCP: Dr. Richie Heredia, DO Status: DIS IN Study: Pelvis 1 or 2 Views Date of Exam: 08/25/23 Exam# [id number] Ordering Dr: Coy Syed MD [id number] EXAM: XR PELVIS, 1 OR 2 VIEWS CLINICAL INDICATION: fall/pain (pain right, fell on left; nontend) TECHNIQUE: Frontal view of the pelvis. COMPARISON: No relevant prior studies available. FINDINGS: BONES/JOINTS: Unremarkable. No displaced fracture. No destructive or sclerotic lesions. Note that overlapping bowel shadows may however obscure fine detail. Sacroiliac joints are unremarkable. No widening of the pubic symphysis. The articular structures are unremarkable. SOFT TISSUES: Unremarkable. No soft tissue swelling or gas. RAD/Pelvis 1 or 2 Views IMPRESSION: No evidence of displaced pelvic fracture. Electronically Signed: Richie Lopez MD at 7:09 EDT , CC: Dr. Coy Syed MD; Dr. Richie Heredia DO Slab Depiler Operator: Signed Normal [facility] RESPIRATORY PANEL MOLECULARo n 08-25-2023 RP PANEL ADENOVIRUS Not Detected INFLUENZA A Not Detected INFLUENZA A (SUBTYPE H1) Not Detected INFLUENZA A (SUBTYPE H3) Not Detected INFLUENZA B Not Detected HUMAN METAPHNEUMO Not Detected PARAINFLUENZA 1 Not Detected PARAINFLUENZA 2 Not Detected PARAINFLUENZA 3 Not Detected PARAINFLUENZA 4 Not Detected RHINOVIRUS Not Detected RSV A Not Detected RSV B Not Detected Normal [facility] Comment on above: Performed By: #### L 501.4020, L500.2500, L100.0100 #### [facility] [address] [facility] [place], [address] Ribs Uni Min 3V w/PA Cheston 08-25-2023 Ribs Uni Min 3V w/PA Chest [facility] Imaging Services [address] [place] [address] Ribs Uni Min 3V w/PA Chest MR#: [id number] Acct: [id number] Name: DAVID STREET Rep #: [id number] : 1950 F 73 From: Maximo Chandler PCP: Dr. Richie Heredia DO Status: REG ER Study: Ribs Uni Min 3V w/PA Chest Date of Exam: 08/24 Exam# [id number] Ordering Dr: Coy Syed MD [id number] INDICATION: fall/injury EXAMINATION/TECHNIQU E: X-RAY - XR Ribs Unilateral W/ PA Chest Min 3 Views COMPARISON: No relevant prior comparison study available ____ FINDINGS: SOFT TISSUES: No soft tissue swelling or gas. BONES: No displaced fracture. No sclerotic or destructive changes observed. VISUALIZED LUNGS: Clear. No pneumothorax. There is a calcified granuloma in the left lung upper lobe measures 1.2 cm in diameter. RAD/Ribs Uni Min 3V w/PA Chest IMPRESSION: No evidence of displaced rib fracture. Electronically Signed: Maximo Khoury MD at 7:10 EDT , CC: Dr. Coy Syed MD; Dr. Richie Heredia DO Slab Depiler Operator: Signed Normal [facility] Urinalysis, Completeon 08-24 BACTERIA 0 SEEN Normal None Seen [facility] Comment on above: Order Comment: BLADD ER TAP Performed By: #### L 400.0001, M1. ####[facility] [address] [place], [address] EPI,SQUAMOUS 0 SEEN Normal 5-10 [facility] Comment on above: Order Comment: BLADD ER TAP Performed By: #### L 400.0001, M1 ####[facility] [address] [place], [address] Mucus Ql (Urine sed) 0 SEEN Normal [facility] Comment on above: Order Comment: BLADD ER TAP Performed By: #### L 400.0001, M100.678 ####[facility] [address] [place], [address] RBC 0 SEEN Normal 0-5 [facility] Comment on above: Order Comment: BLADD ER TAP Performed By: #### L 400.0001, M100.678 ####[facility] [address] [place], [address] WBC 0 SEEN Normal 0-5 [facility] Comment on above: Order Comment: BLADD ER TAP Performed By: #### L 400.0001, M100.678 ####[facility] [address] [place], [address] CREATININE FINGERSTICKon 4 CREATININE WB < 1.0 Normal 0.55-1.02 [facility] Comment on above: Performed By: #### L 9100.0210, L9100.0220 ####[facility] [address] [place], [address] EGFR FINGERSTICKon 4 EGFR WB > 60.0 Normal >60 [facility] Comment on above: Performed By: #### L 9100.0210, L9100.0220 ####[facility] [address] [place], [address] FT3on 08-12-2023 Free T3 [Mass/Vol] 2.22 pg/mL Low 2.30-4.00 [facility] Comment on above: Performed By: #### T SH, FT3, FT4 #### [address] [address] FT4on 08-12-2023 Free T4 [Mass/Vol] 0.92 ng/dL Normal 0.76-1.46 [facility] [place] ([place] Comment on above: Performed By: #### T SH, FT3, FT4 #### [place] [address] [address] LABORATORYOrdered By: SYSTEM SYSTEM on 08-12-2023 Free T3 [Mass/Vol] 2.22 pg/mL Low 2.30 - 4. 00 pg/mL AO ADM SS Free T4 [Mass/Vol] 0.92 ng/dL Normal 0.76 - 1. 46 ng/dL AO ADM SS TSH Qn 4.34 m[IU]/L High 0.36 - 3.74 mcIU/mL AO ADM SS TSHon 08-12-2023 TSH Qn 4.34 m[IU]/L High 0.36-3.74 [facility] ([place]) Comment on above: Performed By: #### T SH, FT3, FT4 #### [address] [place], [place] [address] Venous Blood Gason 4 Blood Gas Type ANDRÉS [facility] Comment on above: Performed By: #### L 9000.0810 ####[facility] [address] [place], [address] CO2 [Moles/Vol] 37 mmol/L High 23-33 [facility] Comment on above: Performed By: #### L 9000.0810 ####[facility] [address] [place], [address] FI02 2.0 [facility] Comment on above: Performed By: #### L 9000.0810 ####[facility] [address] [place], [address] HCO3 (Bld) [Moles/Vol] 35 mmol/L High 22-26 [facility] Comment on above: Performed By: #### L 9000.0810 ####[facility] [address] [place], [address] O2 Delivery Dev Cannula Normal [facility] Comment on above: Performed By: #### L 9000.0810 ####[facility] [address] [place], [address] SITE Not entered [facility] Comment on above: Performed By: #### L 9000.0810 ####[facility] [address] [place], [place], [address] VBG BE 10 mmol/L High -1.0-3.5 [facility] Comment on above: Performed By: #### L 9000.0810 ####[facility] [address] [place], [address] VBG pCO2 59.8 mmHg High 41-51 [facility] Comment on above: Performed By: #### L 9000.0810 ####[facility] [address] [place], [address] VBG pH 7.38 Normal 7.32-7.42 [facility] Comment on above: Performed By: #### L 9000.0810 ####[facility] [address] [place], [address] VBG PO2 45 mmHg High 25-40 [facility] Comment on above: Performed By: #### L 9000.0810 ####[facility] [address] [place], [address] VBG SO2 78 High 50-70 [facility] Comment on above: Performed By: #### L 9000.0810 ####[facility] [address] [place], [address] 12 Lead EKGon 07-26-2023 12 Lead EKG [facility] Cardiovascular Services [address] [place] [address] 12 Lead EKG 07/26/23 1655 MR#: [id number] Acct: [id number] Name: DAVID STREET Rep #: [id number] : 1950 73 From: Alberto Williamson MD Attending Dr: Status: DEP ER Ordering Dr: Hunter Ryan MD Date: 07/26/23 Location: ED Sex: F C Admitted: Test Reason : CONFUSED Blood Pressure : / mmHG Vent. Rate : 071 BPM Atrial Rate : 071 BPM P-R Int : 182 ms QRS Dur : 100 ms QT Int : 404 ms P-R-T Axes : 072 -26 015 degrees QTc Int : 439 ms Normal sinus rhythm Low voltage QRS Abnormal ECG Confirmed by GREER BRAGG, ALBERTO ([id number]), technical editor JASVIR NESBITT ([id number]) on 07/27/2023 2:13:58 PM Referred By: ERROL SURESH Confirmed By:ALBERTO WILLIAMSON MD 07/27/23 1414 Date Alberto Williamson MD CC: Dr. Hunter Ryan MD; Dr. Richie Heredia, DO Signed Normal [facility] Ammoniaon 07-26-2023 Ammonia (P) [Moles/Vol] 19.0 umol/L Normal -32 [facility] Comment on above: Performed By: #### L 501.4020, L100.0100, L500.4050, L503.5510 ####[facility] [address] [place], [address] CBC W/Diff, Automatedon 06- Absolute Lymph 2.19 X10 3/uL Normal 0.83-4.51 [facility] Comment on above: Performed By: #### L 501.4020, L100.0100, L500.4050, L503.5510 ####[facility] [address] [place], [address] Absolute Neut 4.8 X10 3/uL Normal 2.0-7.7 [facility] Comment on above: Performed By: #### L 501.4020, L100.0100, L500.4050, L503.5510 ####[facility] [address] [place], [address] Basophils/100 WBC (Bld) 0.6 % Normal 0-1 [facility] Comment on above: Performed By: #### L 501.4020, L100.0100, L500.4050, L503.5510 ####[facility] [address] [place], [address] Eosinophils/100 WBC (Bld) 2.2 % Normal 0-5 [facility] Comment on above: Performed By: #### L 501.4020, L100.0100, L500.4050, L503.5510 ####[facility] [address] [place], [address] Erythrocyte distribution width (RBC) [Ratio] 13.3 % Normal 11.6-14.6 [facility] Comment on above: Performed By: #### L 501.4020, L100.0100, L500.4050, L503.5510 ####[facility] [address] [place], [address] Hematocrit (Bld) [Volume fraction] 41.9 % Normal 37-47 [facility] Comment on above: Performed By: #### L 501.4020, L100.0100, L500.4050, L503.5510 ####[facility] [address] [place], [address] Hemoglobin (Bld) [Mass/Vol] 13.2 g/dL Normal 12.0-15.0 [facility] Comment on above: Performed By: #### L 501.4020, L100.0100, L500.4050, L503.5510 ####[facility] [address] [place], [address] IG% 0.500 Normal 0.0-0.9 [facility] Comment on above: Result Comment: IG% - Immature Granulocytes (promyelocytes, myelocytes and metamyelocytes) > 1% indicates that a LEFT SHIFT is Present. Performed By: #### L 501.4020, L100.0100, L500.4050, L503.5510 ####[facility] [address] [place], [address] Lymphocytes/100 WBC (Bld) 28.4 % Normal 19-41 [facility] Comment on above: Performed By: #### L 501.4020, L100.0100, L500.4050, L503.5510 ####[facility] [address] [place] [place], [address] MCH (RBC) [Entitic mass] 31.4 pg Normal 27.0-32.0 [facility] Comment on above: Performed By: #### L 501.4020, L100.0100, L500.4050, L503.5510 ####[facility] [address] [place], [address] MCHC (RBC) [Mass/Vol] 31.5 g/dL Low 32-36 [facility] Comment on above: Performed By: #### L 501.4020, L100.0100, L500.4050, L503.5510 ####[facility] [address] [place], [address] MCV (RBC) [Entitic vol] 99.8 fL High 81-99 [facility] Comment on above: Performed By: #### L 501.4020, L100.0100, L500.4050, L503.5510 ####[facility] [address] [place], [address] Monocytes/100 WBC (Bld) 6.6 % Normal 0-10 [facility] Comment on above: Performed By: #### L 501.4020, L100.0100, L500.4050, L503.5510 ####[facility] [address] [place], [address] Neutrophils/100 WBC (Bld) 61.7 % Normal 47-70 [facility] Comment on above: Performed By: #### L 501.4020, L100.0100, L500.4050, L503.5510 ####[facility] [address] [place], [address] Nucleated RBC (Bld) [#/Vol] 0 10*3/uL Normal 0-5 [facility] Comment on above: Performed By: #### L 501.4020, L100.0100, L500.4050, L503.5510 ####[facility] [address] [place], [address] Platelet mean volume (Bld) [Entitic vol] 11.6 fL Normal 6.2-12.0 [facility] Comment on above: Performed By: #### L 501.4020, L100.0100, L500.4050, L503.5510 ####[facility] [address] [place], [address] Platelets (Bld) [#/Vol] 312 10*3/uL Normal 150-450 [facility] Comment on above: Performed By: #### L 501.4020, L100.0100, L500.4050, L503.5510 ####[facility] [address] [place], [address] RBC (Bld) [#/Vol] 4.20 10*6/uL Normal 4.2-5.4 [facility] Comment on above: Performed By: #### L 501.4020, L100.0100, L500.4050, L503.5510 ####[facility] [address] [place], [address] RDW SD 48.7 fl High 35.1-43.9 [facility] Comment on above: Performed By: #### L 501.4020, L100.0100, L500.4050, L503.5510 ####[facility] [address] [place], [address] WBC (Bld) [#/Vol] 7.7 10*3/uL Normal 4.4-11.0 [facility] Comment on above: Performed By: #### L 501.4020, L100.0100, L500.4050, L503.5510 ####[facility] [address] [place], [address] Chest 1 View (Portable)on Chest 1 View (Portable) [facility] Imaging Services [address] [place] [address] Chest 1 View (Portable) MR#: [id number] Acct: [id number] Name: DAVID STREET Rep #: [id number] : 1950 F 73 From: Yann Tsang DO PCP: Dr. Richie Heredia DO Status: PRE ER Study: Chest 1 View (Portable) Date of Exam: 07/26/23 Exam# [id number] Ordering Dr: Hunter Ryan MD [id number] INDICATION: shortness of breath EXAMINATION/TECHNIQU E: X-RAY - XR Chest 1 View COMPARISON: ____ FINDINGS: LINES/DEVICES: None. LUNGS: No consolidation, edema or effusion. Interstitial prominence. Left pulmonary calcified granulomas. No pneumothorax. MEDIASTINUM AND CARDIOVASCULAR STRUCTURES: Cardiac silhouette not enlarged. Central airways and mediastinal contour are unremarkable. BONES AND SOFT TISSUES: Degenerative vertebral changes. RAD/Chest 1 View (Portable) IMPRESSION: Interstitial prominence. Electronically Signed: Yann Tsang DO at 16:51 EDT , CC: Dr. Hunter Ryan MD; Dr. Richie Heredia DO Slab Depiler Operator: Signed Normal [facility] Comprehensive Metabolic Prof ilon 07-26-2023 Albumin [Mass/Vol] 3.3 g/dL Normal 3.2-5.0 [facility] Comment on above: Order Comment: 'TROP ' Serial specimen #1, #2 or #3: 1 Performed By: #### L 501.4020, L100.0100, L500.4050, L503.5510 ####[facility] [address] [place], [address] Albumin/Globulin [Mass ratio] 0.9 {ratio} Normal 0.9-2.4 [facility] Comment on above: Order Comment: 'TROP ' Serial specimen #1, #2 or #3: 1 Performed By: #### L 501.4020, L100.0100, L500.4050, L503.5510 ####[facility] [address] [place], [address] ALK P 144 U/L High 45-117 [facility] Comment on above: Order Comment: 'TROP ' Serial specimen #1, #2 or #3: 1 Performed By: #### L 501.4020, L100.0100, L500.4050, L503.5510 ####[facility] [address] [place], [address] ALT [Catalytic activity/Vol] 21 U/L Normal 13-56 [facility] Comment on above: Order Comment: 'TROP ' Serial specimen #1, #2 or #3: 1 Performed By: #### L 501.4020, L100.0100, L500.4050, L503.5510 ####[facility] [address] [place], [address] AST [Catalytic activity/Vol] 18 U/L Normal 15-37 [facility] Comment on above: Order Comment: 'TROP ' Serial specimen #1, #2 or #3: 1 Performed By: #### L 501.4020, L100.0100, L500.4050, L503.5510 ####[facility] [address] [place], [address] Bilirubin [Mass/Vol] 0.20 mg/dL Normal 0.20-1.00 [facility] Comment on above: Order Comment: 'TROP ' Serial specimen #1, #2 or #3: 1 Result Comment: For patients on eltrombopag therapy, use of Dimension [place] TBIL is not recommended. Performed By: #### L 501.4020, L100.0100, L500.4050, L503.5510 ####[facility] [address] [place], [address] BUN/CRE 21.0 RATIO High 10-20 [facility] Comment on above: Order Comment: 'TROP ' Serial specimen #1, #2 or #3: 1 Performed By: #### L 501.4020, L100.0100, L500.4050, L503.5510 ####[facility] [address] [place], [address] CA,Total 8.8 mg/dL Normal 8.5-10.1 [facility] Comment on above: Order Comment: 'TROP ' Serial specimen #1, #2 or #3: 1 Performed By: #### L 501.4020, L100.0100, L500.4050, L503.5510 ####[facility] [address] [place], [address] Chloride [Moles/Vol] 104 mmol/L Normal 98-107 [facility] Comment on above: Order Comment: 'TROP ' Serial specimen #1, #2 or #3: 1 Performed By: #### L 501.4020, L100.0100, L500.4050, L503.5510 ####[facility] [address] [place], [address] CO2 [Moles/Vol] 32.0 mmol/L Normal 21.0-32.0 [facility] Comment on above: Order Comment: 'TROP ' Serial specimen #1, #2 or #3: 1 Performed By: #### L 501.4020, L100.0100, L500.4050, L503.5510 ####[facility] [address] [place], [address] Creatinine [Mass/Vol] 1.05 mg/dL High 0.55-1.02 [facility] Comment on above: Order Comment: 'TROP ' Serial specimen #1, #2 or #3: 1 Result Comment: The validity of the calculated GFR GFRAA in patients over 70 years has not been determined. Clinical correlation is essential. Performed By: #### L 501.4020, L100.0100, L500.4050, L503.5510 ####[facility] [address] [place], [address] ECRCL 54.79 ml/min Normal [facility] Comment on above: Order Comment: 'TROP ' Serial specimen #1, #2 or #3: 1 Performed By: #### L 501.4020, L100.0100, L500.4050, L503.5510 ####[facility] [address] [place], [address] EST GFR - AA 66 mL/min Normal >60 [facility] Comment on above: Order Comment: 'TROP ' Serial specimen #1, #2 or #3: 1 Result Comment: Afri can Latvian GFR Calc Performed By: #### L 501.4020, L100.0100, L500.4050, L503.5510 ####[facility] [address] [place], [address] GAP 5 Normal 5-15 [facility] Comment on above: Order Comment: 'TROP ' Serial specimen #1, #2 or #3: 1 Performed By: #### L 501.4020, L100.0100, L500.4050, L503.5510 ####[facility] [address] [place], [address] GFR/1.73 sq M.predicted among non-blacks MDRD (S/P/Bld) [Vol rate/Area] 55 mL/min/{1.73_m2} Low >60 [facility] Comment on above: Order Comment: 'TROP ' Serial specimen #1, #2 or #3: 1 Result Comment: Non- GFR Calc Performed By: #### L 501.4020, L100.0100, L500.4050, L503.5510 ####[facility] [address] [place], [address] Globulin (S) [Mass/Vol] 3.5 g/dL Normal 2.2-4.2 [facility] Comment on above: Order Comment: 'TROP ' Serial specimen #1, #2 or #3: 1 Performed By: #### L 501.4020, L100.0100, L500.4050, L503.5510 ####[facility] [address] [place], [address] Glucose [Mass/Vol] 95 mg/dL Normal 74-106 [facility] Comment on above: Order Comment: 'TROP ' Serial specimen #1, #2 or #3: 1 Performed By: #### L 501.4020, L100.0100, L500.4050, L503.5510 ####[facility] [address] [place], [address] Potassium [Moles/Vol] 3.7 mmol/L Normal 3.5-5.1 [facility] Comment on above: Order Comment: 'TROP ' Serial specimen #1, #2 or #3: 1 Performed By: #### L 501.4020, L100.0100, L500.4050, L503.5510 ####[facility] [address] [place], [address] Sodium [Moles/Vol] 141 mmol/L Normal 136-145 [facility] Comment on above: Order Comment: 'TROP ' Serial specimen #1, #2 or #3: 1 Performed By: #### L 501.4020, L100.0100, L500.4050, L503.5510 ####[facility] [address] [place], [address] T PROT 6.8 g/dL Normal 6.4-8.2 [facility] Comment on above: Order Comment: 'TROP ' Serial specimen #1, #2 or #3: 1 Performed By: #### L 501.4020, L100.0100, L500.4050, L503.5510 ####[facility] [address] [place], [address] Urea nitrogen [Mass/Vol] 22 mg/dL High 7-18 [facility] Comment on above: Order Comment: 'TROP ' Serial specimen #1, #2 or #3: 1 Performed By: #### L 501.4020, L100.0100, L500.4050, L503.5510 ####[facility] [address] [facility] [place], [address] Emergency Department Summary on 07-26-2023 Emergency Department Summary [facility] Medical Records Department [address] [place] [address] Emergency Department Summary 07/26/23 MR#: [id number] Acct: [id number] Name: ADVID STREET Rep #: [id number] : 1950 73 From: Hunter Ryan MD PCP: Dr. Richie Heredia, DO Status:[facility] ER Location: ED HPI History of Present Illness Chief Complaint: Fatigue Narrative Narrative: 73-year-old female past medical history of COPD, wears oxygen per nasal cannula at all times presents with feelings of fatigue, and lethargy. She lives at home, states that she has been tired all day. She denies fevers or chills, no cough, no problems with urination. She states that this morning all she wanted to do was sleep all day. [facility] Medical History Hypercholesteremia Peripheral vascular disease Palpitations Vertigo Osteoarthritis Diabetes mellitus type 2 in obese Paroxysmal atrial fibrillation Obstructive sleep apnea Home Medications ???Medication ???Instructions ???Recorded ???Last Taken ???Type insulin glargine 100 unit/mL (3 100 units subcut QHS diabetes 03/14/14 11/14/19 23:00 History mL) subcutaneous pen oxycodone-acetaminop hen 5 mg-325 1 tab PO Q6H PAIN 04/02/16 01/26/23 History mg tablet gabapentin 400 mg capsule 400 mg PO DAILY NEUROPATHY 11/15/19 01/26/23 History aspirin 81 mg tablet,delayed 81 mg PO DAILY HEART HEALTH #90 10/25/20 01/26/23 Rx release tabs empagliflozin 25 mg tablet 25 mg PO DAILY DIABETES 05/23/21 01/26/23 History (Jardiance) metformin 500 mg tablet,extended 1,000 mg PO DAILY DIABETES 05/23/21 01/26/23 History release 24 hr ropinirole 0.5 mg tablet 0.5 - 1 mg PO QHS RESTLESS LEGS 05/23/21 01/26/23 History albuterol sulfate 90 mcg/actuation 2 puff inhalation Q4H SHORTNESS OF 01/27/23 01/26/23 History aerosol inhaler BREATH bumetanide 1 mg tablet 1 mg PO DAILY EDEMA 01/27/23 01/26/23 History bupropion HCl 150 mg 24 hr tablet, 150 mg PO DAILY DEPRESSION 01/27/23 01/26/23 History extended release calcium carbonate 600 mg-vitamin 1 tab PO BID SUPPLEMENT 01/27/23 01/26/23 History D3 10 mcg (400 unit) tablet escitalopram oxalate 20 mg tablet 20 mg PO DAILY DEPRESSION 01/27/23 01/26/23 History fluticasone fur. 100 mcg-umeclid 1 inh inhalation DAILY SHORTNESS 01/27/23 01/26/23 History 62.5 mcg-vilant 25 mcg OF BREATH/WHEEZING inhalat.powder (Trelegy Ellipta) gabapentin 400 mg capsule 800 mg PO QPM NEUROPATHY 01/27/23 01/26/23 History meloxicam 15 mg tablet 15 mg PO DAILY ARTHRITIS 01/27/23 01/26/23 History pravastatin 40 mg tablet 40 mg PO QPM CHOLESTEROL 01/27/23 01/26/23 History ropinirole 0.5 mg tablet 1 mg PO QPM PRN RESTLESS LEGS 01/27/23 Unknown History cefdinir 300 mg capsule 300 mg PO BID #14 caps 01/30/23 Unknown Rx Allergy/AdvReac Type Severity Reaction Status Date / Time ampicillin Allergy Hives Verified 01/27/23 08:31 codeine Allergy Hives Verified 01/27/23 08:31 meperidine HCl (From Demerol) Allergy Hives Verified 01/27/23 08:31 Penicillins (PCN) Allergy Hives Verified 01/27/23 08:31 propoxyphene napsylate (From Allergy Hives Verified 01/27/23 08:31 Darvocet-N) Family History Mother Heart disease Brother Heart disease Grandfather CVA (cerebral vascular accident) Grandmother Myocardial infarction Surgical History History of laparoscopic cholecystectomy ( 11/2019) History of lumpectomy of both breasts History of cardiac catheterization History of knee replacement History of hysterectomy History of tubal ligation History of appendectomy Social History Smoking Status: Former smoker alcohol intake: never substance use type: does not use caffeine: Yes Type: coffee Number of servings: 5 ROS ROS ED ROS Narrative Constitutional: No fever, no chills. Positive fatigue. Increased sleepiness/drowsines s. HEENT: No sore throat. No neck pain. No loss of vision. No rhinorrhea. Cardiovascular: No chest pain. No palpitations. No pedal edema. Respiratory: No cough, no shortness of breath. Abdominal: No abdominal pain. No nausea. No vomiting. Genitourinary: No dysuria. No hematuria. Musculoskeletal: No myalgias. No arthralgias. Neurologic: No headaches. No dizziness. No lightheadedness. Skin: No rash. No change in color. Psychiatric: No depression. No anxiety. EXAM Physical Exam Narrative Exam Narrative: Afebrile. Vital signs noted. HEENT: Normocephalic. Atraumatic. PERRL, EOMI. Neck soft and supple. No point tenderness or step off. Cardiovascular: Regular rate and rhythm. No murmurs, rubs, or gallops appreciated. Respiratory: No tachypnea. Lungs clear to auscultation bilaterally. (more content not included)... Normal [facility] L501.4020on 06-03-2024 TROPONIN-I HS 9 pg/mL Normal 3.0-54.0 [facility] Comment on above: Order Comment: 'TROP ' Serial specimen #1, #2 or #3: 1 Result Comment: Beranrdo feng Note: New Test Units and Gender Specific Reference Ranges. For more information see Policy Stat Procedure Preston High Sensitivity Troponin (TNIH) and attachments. Performed By: #### L 501.4020, L100.0100, L500.4050, L503.5510 ####[facility] [address] [place], [address] Urinalysis, Completeon 07-25 EPI,SQUAMOUS 0-5 SEEN Normal 5-10 [facility] Comment on above: Order Comment: AUDREY TER SPECIMEN Performed By: #### L 501.080 #### [facility] [address] [place], [address] WBC 0-5 SEEN Normal 0-5 [facility] Comment on above: Order Comment: AUDREY TER SPECIMEN Performed By: #### L 501.080 #### [facility] [address] [place], [address] YEAST 2+ /hpf Normal None Seen [facility] Comment on above: Order Comment: AUDREY TER SPECIMEN Performed By: #### L 501.080 #### [facility] [address] [place], [address] BACTERIA 0 SEEN Normal None Seen [facility] Comment on above: Order Comment: AUDREY TER SPECIMEN Performed By: #### L 501.080 #### [facility] [address] [place], [address] Mucus Ql (Urine sed) 0 SEEN Normal [facility] Comment on above: Order Comment: AUDREY TER SPECIMEN Performed By: #### L 501.080 #### [facility] [address] [place], [address] RBC 0 SEEN Normal 0-5 [facility] Comment on above: Order Comment: AUDREY [facility] SPECIMEN Performed By: #### L 501.080 #### [facility] [address] [place], [place], [id number] Basophil percentageOrdered B y: Richie Heredia on 04-20-2023 Bilirubin [Mass/Vol] 0.40 mg/dL 0.20-1.00 [facility] Comment on above: For patients on eltr ombopag therapy, use of Dimension [place] TBIL is not recommended. Chloride [Moles/Vol] 106 mmol/L 98-107 [facility] Cholesterol [Mass/Vol] 191 mg/dL <200 [facility] Comment on above: <200 mg/dL Desirable 200-240 mg/dL Borderline >240 mg/dL High Risk Glucose [Mass/Vol] 130 mg/dL 74-106 [facility] Comment on above: Fasting Glucose resu lt greater than or equal to 126 mg/dL suggests DIABETES MELLITUS per A.D.A. criteria. Hemoglobin (Bld) [Mass/Vol] 13.6 g/dL 12.0-15.0 [facility] Potassium [Moles/Vol] 4.4 mmol/L 3.5-5.1 [facility] Protein [Mass/Vol] 6.9 g/dL 6.4-8.2 [facility] Sodium [Moles/Vol] 139 mmol/L 136-145 [facility] Triglyceride [Mass/Vol] 114 mg/dL <199 [facility] Comment on above: The drugs N-Acetylcy steine and Metamizole may falsely depress this assay.Serum Triglycerides Reference Interval Normal <150 mg/dL Borderline high 150 - 199 mg/dL High 200 - 499 mg/dL Very High > or = 500 mg/dL WBC (Bld) [#/Vol] 8.1 10*3/uL 4.4-11.0 [facility] Determination of erythrocyte mean corpuscular volume (MCV)Ordered By: Richie Heredia on 04-20-2023 MCV (RBC) [Entitic vol] 96.0 fL 81-99 [facility] Erythrocyte distribution wid th ratioOrdered By: Richie Heredia on 04-20-2023 Erythrocyte distribution width (RBC) [Ratio] 14.0 % 11.6-14.6 [facility] Erythrocyte distribution wid th standard deviationOrdered By: Richie Heredia on 04-20-2023 Erythrocyte distribution width (RBC) [Entitic vol] 49.8 fL 35.1-43.9 [facility] Hematocrit Auto (Bld) [Volum e fraction]Ordered By: Richie Heredia on 04-20-2023 Hematocrit (Bld) [Volume fraction] 43.7 % 37-47 [facility] Laboratory - Chemistry and C hemistry - challengeOrdered By: Richie Heredia on 04-20-2023 Albumin/Globulin [Mass ratio] 1.0 {ratio} 0.9-2.4 [facility] ALP [Catalytic activity/Vol] 102 U/L 45-117 [facility] ALT [Catalytic activity/Vol] 14 U/L 13-56 [facility] Cholesterol in HDL [Mass/Vol] 46 mg/dL >40 [facility] Comment on above: The drugs N-Acetylcy steine and Metamizole may falsely depress this assay. Reference Range HDL <40 mg/dL Low HDL Cholesterol HDL >or= 60 mg/dL High HDL Cholesterol Cholesterol in LDL [Mass/Vol] 122 mg/dL 0-130 [facility] CO2 [Moles/Vol] 32.0 mmol/L 21.0-32.0 [facility] Cobalamin (Vitamin B12) [Mass/Vol] 655 pg/mL 211-911 [facility] Globulin (S) [Mass/Vol] 3.5 g/dL 2.2-4.2 [facility] Natriuretic peptide B (Bld) [Mass/Vol] 106.6 pg/mL 0-100 [facility] Urea nitrogen/Creatinine [Mass ratio] 25.9 mg/mg 10-20 [facility] Laboratory - Hematology and Cell countsOrdered By: Richie Heredia on 04-20-2023 MCH (RBC) [Entitic mass] 29.9 pg 27.0-32.0 [facility] MCHC (RBC) [Mass/Vol] 31.1 g/dL 32-36 [facility] Platelet mean volume (Bld) [Entitic vol] 11.5 fL 6.2-12.0 [facility] Platelets (Bld) [#/Vol] 320 10*3/uL 150-450 [facility] No Panel InformationOrdered By: Richie Heredia on 04-20-2023 Estimated GFR (MDRD) Amer 64 mL/min >60 [facility] Comment on above: GFR Calc Estimated GFR (MDRD) Non-Af Amer 53 mL/min >60 [facility] Comment on above: Non- GFR Calc Folate 3.20 ng/mL 3.1-55.4 [facility] Urine Microalbumin/Creatinine Ratio 8.3 mg/g CRE <30 [facility] Vitamin D 25-Hydroxy 26.1 ng/mL [facility] Comment on above: Vitamin D 25(OH) Sta tus Range Deficiency <20 ng/mL (50nmol/L) Insufficiency 20 - 30 ng/mL (50 - 75 nmol/L) Sufficiency 30 - 100 ng/mL (75 - 250 nmol/L) Toxicity >100 ng/mL (>250 nmol/L) VLDL Cholesterol 23 mg/dL 5-40 [facility] RBC Auto (Bld) [#/Vol]Ordere d By: Richie Heredia on 04-20-2023 RBC (Bld) [#/Vol] 4.55 10*6/uL 4.2-5.4 [facility] Serum or plasma calcium brittny urement (mass/volume)Ordered By: Richie Heredia on 04-20-2023 Calcium [Mass/Vol] 9.6 mg/dL 8.5-10.1 [facility] Serum or plasma creatinine m easurement (mass/volume)Ordered By: Richie Heredia on 04-20-2023 Creatinine [Mass/Vol] 1.08 mg/dL 0.55-1.02 [facility] Comment on above: The validity of the calculated GFR & GFRAA in patients over 70 years has not been determined. Clinical correlation is essential. Serum or plasma thyroid stim ulating hormone (TSH) measurement (units/volume)Ordered By: Richie Heredia on 04-20-2023 TSH Qn 3.70 uIU/mL 0.358-3.74 [facility] Serum or plasma urea nitroge n measurement (mass/volume)Ordered By: Richie Heredia on 04-20-2023 Urea nitrogen [Mass/Vol] 28 mg/dL 7-18 [facility] Thin prep Papanicolaou smear with manual screeningOrdered By: Richie Heredia on 04-20-2023 Thin prep Papanicolaou smear with manual screening 3.4 g/dL 3.2-5.0 [facility] Thin prep Papanicolaou smear with manual screening 10 U/L 15-37 [facility] Thin prep Papanicolaou smear with manual screening 1 5-15 [facility] Thin prep Papanicolaou smear with manual screening 10.4 mg/L NO RANGE EST. [facility] Thin prep Papanicolaou smear with manual screening 0.92 ng/dL 0.76-1.46 [facility] Urine creatinine measurement (mass/volume)Ordered By: Richie Heredia on 04-20-2023 Creatinine (U) [Mass/Vol] 125.00 mg/dL NO RANGE EST. [facility] Whole blood hemoglobin A1c/t otal hemoglobin ratio (mass fraction)Ordered By: Richie Heredia on 04-20-2023 HbA1c (Bld) [Mass fraction] 5.8 % 3.8-5.6 [facility] Comment on above: Normal < 5.7 % Predi abetic 5.7 - 6.4 % Diabetic >or= 6.5 % Please note range changes. .Urinalysis Microscopic (AO) on 03-18-2023 UA Bacteria 4+ /hpf Abnormal [facility] ([place]) Comment on above: Performed By: #### U A, UAMICAO #### [address] [address] UA RBC 5-10 Abnormal None Seen [facility] ([place] Comment on above: Performed By: #### U A, UAMICAO #### [address] [address] UA Squam Epithelial 15-25 Abnormal None Seen [facility] ([place] Comment on above: Performed By: #### U A, UAMICAO #### [address] [address] UA WBC LOADED Abnormal None Seen [facility] ([place] Comment on above: Performed By: #### U A, UAMICAO #### [address] [place] [address] LABORATORYOrdered By: Oxana Ball on 03-18-2023 Appearance (U) Slightly Cloudy *ABN* (03/18/23 11:41 AM) Invalid Interpretation Code Clear AO Auto Urine SS Bacteria LM.HPF (Urine sed) [#/Area] 4 /[HPF] Invalid Interpretation Code AO Auto Urine SS Bilirubin Ql (U) Negative (03/18/23 11:41 AM) Normal Negative AO Auto Urine SS Color (U) Yellow (03/18/23 11:41 AM) Normal AO Auto Urine SS Glucose Test strip (U) [Mass/Vol] 500 mg/dL Invalid Interpretation Code Negative AO Auto Urine SS Hemoglobin Auto test strip (U) [Mass/Vol] Trace *ABN* (03/18/23 11:41 AM) Invalid Interpretation Code Negative AO Auto Urine SS Ketones Ql (U) Negative Normal Negative AO Auto Urine SS UA Leuk Est Large *ABN* (03/18/23 11:41 AM) Invalid Interpretation Code Negative AO Auto Urine SS UA Nitrite Negative (03/18/23 11:41 AM) Normal Negative AO Auto Urine SS UA pH 6.0 (03/18/23 11:41 AM) Normal 5.0 - 8.0 AO Auto Urine SS UA Protein Negative Normal Negative AO Auto Urine SS UA RBC 5-10 /HPF Invalid Interpretation Code None Seen AO Auto Urine SS UA Spec Grav 1.015 (03/18/23 11:41 AM) Normal 1.015-1.025 AO Auto Urine SS UA Specimen Type Not Given (03/18/23 11:41 AM) Normal AO Auto Urine SS UA Squam Epithelial 15-25 /HPF Invalid Interpretation Code None Seen AO Auto Urine SS UA Urobilinogen 0.2 E.U./dL Normal 0.2-1.0 AO Auto Urine SS WBC LM.HPF (Urine sed) [#/Area] LOADED /HPF Invalid Interpretation Code None Seen AO Auto Urine SS LEVOFLOXACIN:SUSC:PT:ISOLATE :ORDQN:MICon 03-18-2023 levoFLOXacin TWYLA [Susc] >100,000 cfu/ml Escherichia coli [facility] Work Phone: UAon 03-18-2023 Color (U) Yellow Normal [facility] ([place]) Comment on above: Performed By: #### U A, UAMICAO #### [address] [address] Glucose (U) [Mass/Vol] 500 mg/dL Abnormal Negative [facility] ([place]) Comment on above: Performed By: #### U A, UAMICAO #### [address] [address] Ketones Ql (U) Negative Normal Negative [facility] [place] Comment on above: Performed By: #### U A, UAMICAO #### [address] [address] UA Appear Slightly Cloudy Abnormal Clear [facility] ([place] Comment on above: Performed By: #### U A, UAMICAO #### [address] [address] UA Blood Trace Abnormal Negative [facility] ([place] Comment on above: Performed By: #### U A, UAMICAO #### [address] [address] UA Leuk Est Large Abnormal Negative [facility] ([place] Comment on above: Performed By: #### U A, UAMICAO #### [address] [address] UA Nitrite Negative Normal Negative [facility] ([place] Comment on above: Performed By: #### U A, UAMICAO #### [address] [address] UA pH 6.0 Normal 5.0 - 8.0 [facility] ([place] Comment on above: Performed By: #### U A, UAMICAO #### [address] [address] UA Protein Negative Normal Negative [facility] ([place] Comment on above: Performed By: #### U A, UAMICAO #### [address] [address] UA Spec Grav 1.015 Normal 1.015-1.025 [facility] ([place] Comment on above: Performed By: #### U A, UAMICAO #### [facility] [address] [place], [place] [address] UA Specimen Type Not Given Normal [facility] [place] Comment on above: Performed By: #### U A, UAMICAO #### [facility] [address] [place], [place] [address] UA Urobilinogen 0.2 E.U./dL Normal 0.2-1.0 [facility] ([place] Comment on above: Performed By: #### U A, UAMICAO #### [facility] [address] [place], [place] [address] Urobilinogen (U) [Mass/Vol] Negative Normal Negative [facility] ([place] Comment on above: Performed By: #### U A, UAMICAO #### [address] [place], [place] [address] levoFLOXacin TWYLA [[facility]]on Escherichia coli Escherichia coli [facility] Work Phone: Absolute lymphocyte countOrd ered By: Maximilian Kitchen on 01-30-2023 Lymphocytes Auto (Unsp spec) [#/Vol] 1.18 10*3/uL 0.83-4.51 [facility] Basophil percentageOrdered B y: Maximilian Kitchen on 01-30-2023 Basophils/100 WBC (Bld) 0.5 % 0-1 [facility] Chloride [Moles/Vol] 113 mmol/L 98-107 [facility] Eosinophils/100 WBC (Bld) 2.1 % 0-5 [facility] Glucose [Mass/Vol] 78 mg/dL 74-106 [facility] Neutrophils (Bld) [#/Vol] 5.6 10*3/uL 2.0-7.7 [facility] Neutrophils/100 WBC (Bld) 73.1 % 47-70 [facility] Potassium [Moles/Vol] 4.2 mmol/L 3.5-5.1 [facility] Sodium [Moles/Vol] 140 mmol/L 136-145 [facility] WBC (Bld) [#/Vol] 7.7 10*3/uL 4.4-11.0 [facility] Blood erythrocytes count (nu mber/volume)Ordered By: Maximilian Kitchen on 01-30-2023 RBC (Bld) [#/Vol] 3.46 10*6/uL 4.2-5.4 [facility] Blood hemoglobin measurement (mass/volume)Ordered By: Maximilian Kitchen on 01-30-2023 Hemoglobin (Bld) [Mass/Vol] 10.5 g/dL 12.0-15.0 [facility] Blood lymphocytes/100 leukoc ytesOrdered By: Maximilian Kitchen on 01-30-2023 Lymphocytes/100 WBC (Bld) 15.4 % 19-41 [facility] Blood monocytes/100 leukocyt esOrdered By: Maximilian Kitchen on 01-30-2023 Monocytes/100 WBC (Bld) 8.5 % 0-10 [facility] Blood platelet mean volumeOr dered By: Maximilian Kitchen on 01-30-2023 Platelet mean volume (Bld) [Entitic vol] 12.6 fL 6.2-12.0 [facility] Determination of erythrocyte mean corpuscular volume (MCV)Ordered By: Maximilian Kitchen on 01-30-2023 MCV (RBC) [Entitic vol] 97.1 fL 81-99 [facility] Glucose Glucometer (dC) [M ass/Vol]Ordered By: Maximilian Kitchen on 01-30-2023 Glucose [Mass/Vol] 81 mg/dL 74-106 [facility] Comment on above: MANAGEMENT OF PATIEN T CARE PER NURSING PROTOCOL Hematocrit Auto (Bld) [Volum e fraction]Ordered By: Maximilian Kitchen on 01-30-2023 Hematocrit (Bld) [Volume fraction] 33.6 % 37-47 [facility] Laboratory - Chemistry and C hemistry - challengeOrdered By: Maximilian Kitchen on 01-30-2023 CO2 [Moles/Vol] 25.0 mmol/L 21.0-32.0 [facility] Urea nitrogen/Creatinine [Mass ratio] 14.7 mg/mg 10-20 [facility] Laboratory - Hematology and Cell countsOrdered By: Maximilian Kitchen on 01-30-2023 Erythrocyte distribution width (RBC) [Entitic vol] 54.1 fL 35.1-43.9 [facility] Erythrocyte distribution width (RBC) [Ratio] 15.3 % 11.6-14.6 [facility] Immature granulocytes/100 WBC (Bld) 0.400 % 0.0-0.9 [facility] Comment on above: IG% - Immature Granu locytes (promyelocytes, myelocytes and metamyelocytes) > 1% indicates that a LEFT SHIFT is Present. MCH (RBC) [Entitic mass] 30.3 pg 27.0-32.0 [facility] Nucleated RBC/100 WBC (Bld) [Ratio] 0 % 0-5 [facility] MCHC Auto (RBC) [Mass/Vol]Or dered By: Maximilian Kitchen on 01-30-2023 MCHC (RBC) [Mass/Vol] 31.3 g/dL 32-36 [facility] No Panel InformationOrdered By: Maximilian Kitchen on 01-30-2023 Estimated Creatinine Clearance Calc 93.51 ml/min [facility] Estimated GFR (MDRD) Amer 110 mL/min >60 [facility] Comment on above: GFR Calc Estimated GFR (MDRD) Non-Af Amer 91 mL/min >60 [facility] Comment on above: Non- GFR Calc Platelets bldOrdered By: Doroteo Kitchen on 01-30-2023 Platelets (Bld) [#/Vol] 168 10*3/uL 150-450 [facility] Serum or plasma calcium brittny urement (mass/volume)Ordered By: Maximilian Kitchen on 01-30-2023 Calcium [Mass/Vol] 8.1 mg/dL 8.5-10.1 [facility] Serum or plasma creatinine m easurement (mass/volume)Ordered By: Maximilian Kitchen on 01-30-2023 Creatinine [Mass/Vol] 0.68 mg/dL 0.55-1.02 [facility] Comment on above: The validity of the calculated GFR & GFRAA in patients over 70 years has not been determined. Clinical correlation is essential. Serum or plasma urea nitroge n measurement (mass/volume)Ordered By: Maximilian Kitchen on 01-30-2023 Urea nitrogen [Mass/Vol] 10 mg/dL 7-18 [facility] Thin prep Papanicolaou smear with manual screeningOrdered By: Maximilian Kitchen on 01-30-2023 Thin prep Papanicolaou smear with manual screening 2 5-15 [facility] Absolute lymphocyte countOrd ered By: Maximilian Kitchen on 01-29-2023 Lymphocytes Auto (Unsp spec) [#/Vol] 1.26 10*3/uL 0.83-4.51 [facility] Basophil percentageOrdered B y: Maximilian Kitchen on 01-29-2023 Basophils/100 WBC (Bld) 0.5 % 0-1 [facility] Chloride [Moles/Vol] 117 mmol/L 98-107 [facility] Eosinophils/100 WBC (Bld) 1.2 % 0-5 [facility] Glucose [Mass/Vol] 93 mg/dL 74-106 [facility] Neutrophils (Bld) [#/Vol] 6.6 10*3/uL 2.0-7.7 [facility] Neutrophils/100 WBC (Bld) 76.0 % 47-70 [facility] Potassium [Moles/Vol] 3.9 mmol/L 3.5-5.1 [facility] Sodium [Moles/Vol] 142 mmol/L 136-145 [facility] WBC (Bld) [#/Vol] 8.6 10*3/uL 4.4-11.0 [facility] Blood erythrocytes count (nu mber/volume)Ordered By: Maximilian Kitchen on 01-29-2023 RBC (Bld) [#/Vol] 3.27 10*6/uL 4.2-5.4 [facility] Blood hemoglobin measurement (mass/volume)Ordered By: Maximilian Kitchen on 01-29-2023 Hemoglobin (Bld) [Mass/Vol] 10.3 g/dL 12.0-15.0 [facility] Blood lymphocytes/100 leukoc ytesOrdered By: Maximilian Kitchen on 01-29-2023 Lymphocytes/100 WBC (Bld) 14.6 % 19-41 [facility] Blood monocytes/100 leukocyt esOrdered By: Maximilian Kitchen on 01-29-2023 Monocytes/100 WBC (Bld) 7.2 % 0-10 [facility] Blood platelet mean volumeOr dered By: Maximilian Kitchen on 01-29-2023 Platelet mean volume (Bld) [Entitic vol] 12.3 fL 6.2-12.0 [facility] Determination of erythrocyte mean corpuscular volume (MCV)Ordered By: Maximilian Kitchen on 01-29-2023 MCV (RBC) [Entitic vol] 96.9 fL 81-99 [facility] Glucose Glucometer (BldC) [M ass/Vol]Ordered By: Maximilian Kitchen on 01-29-2023 Glucose [Mass/Vol] 97 mg/dL 74-106 [facility] Comment on above: MANAGEMENT OF PATIEN T CARE PER NURSING PROTOCOL Gram stain for investigation of transfusion reactionOrdered By: Maximilian Kitchen on 01-29-2023 Microscopic observation Gram stain Nom (Unsp spec) [facility] Hematocrit Auto (Bld) [Volum e fraction]Ordered By: Maximilian Kitchen on 01-29-2023 Hematocrit (Bld) [Volume fraction] 31.7 % 37-47 [facility] Laboratory - Chemistry and C hemistry - challengeOrdered By: Maximilian Kitchen on 01-29-2023 CO2 [Moles/Vol] 25.0 mmol/L 21.0-32.0 [facility] Urea nitrogen/Creatinine [Mass ratio] 23.3 mg/mg 10-20 [facility] Laboratory - CoagulationOrde red By: Maximilian Thomas on 01-29-2023 aPTT Coag (Bld) [Time] 46.2 s 24.1-36.2 [facility] Laboratory - Hematology and Cell countsOrdered By: Maximilian Kitchen on 01-29-2023 Erythrocyte distribution width (RBC) [Entitic vol] 54.3 fL 35.1-43.9 [facility] Erythrocyte distribution width (RBC) [Ratio] 15.3 % 11.6-14.6 [facility] Immature granulocytes/100 WBC (Bld) 0.500 % 0.0-0.9 [facility] Comment on above: IG% - Immature Granu locytes (promyelocytes, myelocytes and metamyelocytes) > 1% indicates that a LEFT SHIFT is Present. MCH (RBC) [Entitic mass] 31.5 pg 27.0-32.0 [facility] Nucleated RBC/100 WBC (Bld) [Ratio] 0 % 0-5 [facility] MCHC Auto (RBC) [Mass/Vol]Or dered By: Maximilian Kitchen on 01-29-2023 MCHC (RBC) [Mass/Vol] 32.5 g/dL 32-36 [facility] Microbial respiratory cultur eOrdered By: Maximilian Kitchen on 01-29-2023 Bacteria identified Respiratory culture Nom (Unsp spec) or Staphylococcus aureus isolated. [facility] No Panel InformationOrdered By: Maximilian Kitchen on 01-29-2023 Estimated Creatinine Clearance Calc 93.43 ml/min [facility] Estimated GFR (MDRD) Amer 117 mL/min >60 [facility] Comment on above: GFR Calc Estimated GFR (MDRD) Non-Af Amer 96 mL/min >60 [facility] Comment on above: Non- GFR Calc No Panel InformationOrdered By: Maximilian Thomas on 01-29-2023 Giardia Antigen (TWYLA) [facility] Ova and parasitesOrdered By: Maximilian Thomas on 01-29-2023 Ova and parasites identified LM Nom (Unsp spec) [facility] Platelets bldOrdered By: Doroteo Kitchen on 01-29-2023 Platelets (Bld) [#/Vol] 147 10*3/uL 150-450 [facility] Serum or plasma calcium brittny urement (mass/volume)Ordered By: Maximilian Kitchen on 01-29-2023 Calcium [Mass/Vol] 7.5 mg/dL 8.5-10.1 [facility] Serum or plasma creatinine m easurement (mass/volume)Ordered By: Maximilian Kitchen on 01-29-2023 Creatinine [Mass/Vol] 0.64 mg/dL 0.55-1.02 [facility] Comment on above: The validity of the calculated GFR & GFRAA in patients over 70 years has not been determined. Clinical correlation is essential. Serum or plasma urea nitroge n measurement (mass/volume)Ordered By: Maximilian Kitchen on 01-29-2023 Urea nitrogen [Mass/Vol] 15 mg/dL 7-18 [facility] Stool enteric pathogen panel by probe and target amplification methodOrdered By: Maximilian Thomas on 01-29-2023 Gastrointestinal pathogens panel IVAN+probe (Stl) [facility] Thin prep Papanicolaou smear with manual screeningOrdered By: Maximilian Kitchen on 01-29-2023 Thin prep Papanicolaou smear with manual screening 0 5-15 [facility] Basophil percentageOrdered B y: Maximilian Kitchen on 01-28-2023 Basophil percentage 3.7 mg/dL 2.5-4.9 [facility] INR in Blood by Coagulation assayOrdered By: Maximilian Kitchen on 01-28-2023 INR Coag (Bld) [Relative time] 1.3 {INR} [facility] Laboratory - Chemistry and C hemistry - challengeOrdered By: Maximilian Kitchen on 01-28-2023 Magnesium [Mass/Vol] 2.0 mg/dL 1.6-2.6 [facility] Laboratory - CoagulationOrde red By: Maximilian Kitchen on 01-28-2023 PT Coag (PPP) [Time] 16.0 s 11.7-14.9 [facility] No Panel InformationOrdered By: Maximilian Kitchen on 01-28-2023 Methicillin-Resist S.aureus DNA PCR Negative Negative [facility] Troponin I High Sensitivity 4907 pg/mL 3.0-54.0 [facility] Comment on above: Critical Result(s) C alled at: 01:20:17 01/28/2023 by: CATRACHO Mccarty RN ICU. Results read back by same. Please Note: New Test Units and Gender Specific Reference Ranges. For more information see Policy Stat Procedure [place] High Sensitivity Troponin (TNIH) and attachments. Assessment of wrist artery p atency prior to arterial punctureOrdered By: Maximilian Kitchen on 01-27-2023 Arterial patency Wrist artery --pre arterial puncture Positive [facility] Base excessOrdered By: Maximilian Kitchen on 01-27-2023 Base excess Calc (BldV) [Moles/Vol] -2 mmol/L -2-2 [facility] Basophil percentageOrdered B y: Maximilian Kitchen on 01-27-2023 Basophil percentage 24.0 mmol/L 22-26 [facility] Basophils/100 WBC (Bld) 96 % 95-99 [facility] Basophil percentageOrdered B y: Darius Ryan on 01-27-2023 Lactate [Moles/Vol] 1.3 mmol/L 0.4-2.0 [facility] Bilirubin [Mass/Vol] 0.80 mg/dL 0.20-1.00 [facility] Comment on above: For patients on eltr ombopag therapy, use of Dimension [place] TBIL is not recommended. Protein [Mass/Vol] 6.9 g/dL 6.4-8.2 [facility] Basophil percentage 0-5 SEEN /hpf 0-5 [facility] Bilirubin Test strip Ql (U)O rdered By: Darius Ryan on 01-27-2023 Bilirubin Ql (U) Negative Negative [facility] Blood manual differential co mment interpretation (narrative result)Ordered By: Darius Ryan on 01-27-2023 Manual differential comment Deon (Bld) [Interp] COMMENT [facility] Comment on above: LYMPHOPENIA. CO2 (BldA) [Partial pressure ]Ordered By: Maximilian Kitchen on 01-27-2023 CO2 (Bld) [Partial pressure] 42.5 mm[Hg] 35-45 [facility] Culture, urineOrdered By: Reymundo Ryan on 01-27-2023 Bacteria identified Cx Nom (U) Escherichia coli [facility] Direct bilirubinOrdered By: Darius Ryan on 01-27-2023 Bilirubin.direct [Mass/Vol] 0.19 mg/dL 0.00-0.30 [facility] Ketones Test strip Ql (U)Ord ered By: Darius Ryan on 01-27-2023 Ketones Ql (U) Negative Negative [facility] Laboratory - Chemistry and C hemistry - challengeOrdered By: Darius Ryan on 01-27-2023 ALP [Catalytic activity/Vol] 92 U/L 45-117 [facility] ALT [Catalytic activity/Vol] 13 U/L 13-56 [facility] Globulin (S) [Mass/Vol] 3.6 g/dL 2.2-4.2 [facility] Lipase [Catalytic activity/Vol] 25 U/L 13-75 [facility] Comment on above: Please note:LIPASE r evised reference range effective 22. New Lipase methodology. Expected to produce lower values than the previous assay method. NEW Reference Range: 13 - 75 U/L Laboratory - Microbiology an d Antimicrobial susceptibilityOrdered By: Darius Ryan on 01-27-2023 Bacteria identified Cx Nom (Bld) No growth in 5 days. [facility] Mucus LM Ql (Urine sed)Order ed By: Darius Ryan on 01-27-2023 Mucus Ql (Urine sed) 0 SEEN /hpf [facility] Nitrite Test strip Ql (U)Ord ered By: Darius Ryan on 01-27-2023 Nitrite Ql (U) Negative Negative [facility] No Panel InformationOrdered By: Maximilian Kitchen on 01-27-2023 Bedside Blood Gas PEEP 10 [facility] Blood Gas Oxygen Percent 35.0 [facility] Blood Gas Respiration Rate 12 [facility] Blood Gas Sample Site R Radial [facility] Blood Gas Specimen Type ART [facility] Blood Gas Total CO2 25 mmol/L [facility] Blood Gas Vent Mode Not entered [facility] Oxygen Delivery Device BiPAP [facility] Oxygen (BldA) [Partial press ure]Ordered By: Maximilian Kitchen on 01-27-2023 Oxygen (Bld) [Partial pressure] 86 mmHG 75-100 [facility] Protein Test strip Ql (U)Ord ered By: Darius Ryan on 01-27-2023 Protein Ql (U) 30 mg/dl Negative [facility] Serum or plasma albumin brittny urement (mass/volume)Ordered By: Darius Ryan on 01-27-2023 Albumin [Mass/Vol] 3.3 g/dL 3.2-5.0 [facility] Squamous epithelial cells de tection in urine sediment by light microscopyOrdered By: Darius Ryan on 01-27-2023 Epithelial cells.squamous LM Ql (Urine sed) 10-25 SEEN /hpf 5-10 [facility] Thin prep Papanicolaou smear with manual screeningOrdered By: Darius Ryan on 01-27-2023 Thin prep Papanicolaou smear with manual screening 10 U/L 15-37 [facility] Urine blood detectionOrdered By: Darius Ryan on 01-27-2023 RBC Ql (U) 50 /ul Negative [facility] RBC Ql (U) 0-5 SEEN /hpf 0-5 [facility] [facility] clarityOrdered By: Bruce Ryan on 01-27-2023 Clarity (U) Sl. Cloudy Clear [facility] Urine color determinationOrd ered By: Darius Ryan on 01-27-2023 Color (U) Yellow Yellow [facility] Urine glucose detectionOrder ed By: Darius Ryan on 01-27-2023 Glucose Ql (U) 1000 mg/dl Normal [facility] Urine leukocyte esterase det ection by dipstickOrdered By: Darius Ryan on 01-27-2023 Leukocyte esterase Test strip Ql (U) 25 /ul Negative [facility] Urine pHOrdered By: Darius jennings on 01-27-2023 pH (U) 7.0 [pH] 5.0 - 8.0 [facility] Urine sediment bacteria coun t by microscopy (number/high power field)Ordered By: Darius Ryan on 01-27-2023 Bacteria LM.HPF (Urine sed) [#/Area] 2 /[HPF] None Seen [facility] Urine specific gravity measu rementOrdered By: Darius Ryan on 01-27-2023 Specific gravity (U) [Rel density] 1.005 1.002-1.030 [facility] Urobilinogen Auto test strip Ql (U)Ordered By: Darius Ryan on 01-27-2023 Urobilinogen Ql (U) Normal mg/dl Normal [facility] pH measurementOrdered By: Reymundo Kitchen on 01-27-2023 pH (Unsp spec) 7.36 [pH] 7.35-7.45 [facility] Basophil percentageOrdered B y: Richie Heredia on 01-25-2023 Bilirubin [Mass/Vol] 0.30 mg/dL 0.20-1.00 [facility] Comment on above: For patients on eltr ombopag therapy, use of Dimension [place] TBIL is not recommended. Chloride [Moles/Vol] 104 mmol/L 98-107 [facility] Cholesterol [Mass/Vol] 142 mg/dL <200 [facility] Comment on above: <200 mg/dL Desirable 200-240 mg/dL Borderline >240 mg/dL High Risk Glucose [Mass/Vol] 83 mg/dL 74-106 [facility] Potassium [Moles/Vol] 4.6 mmol/L 3.5-5.1 [facility] Protein [Mass/Vol] 7.0 g/dL 6.4-8.2 [facility] Sodium [Moles/Vol] 139 mmol/L 136-145 [facility] Triglyceride [Mass/Vol] 173 mg/dL <199 [facility] Comment on above: The drugs N-Acetylcy steine and Metamizole may falsely depress this assay.Serum Triglycerides Reference Interval Normal <150 mg/dL Borderline high 150 - 199 mg/dL High 200 - 499 mg/dL Very High > or = 500 mg/dL WBC (Bld) [#/Vol] 7.7 10*3/uL 4.4-11.0 [facility] Blood erythrocytes count (nu mber/volume)Ordered By: Richie Heredia on 01-25-2023 RBC (Bld) [#/Vol] 4.39 10*6/uL 4.2-5.4 [facility] Blood hemoglobin measurement (mass/volume)Ordered By: Richie Heredia on 01-25-2023 Hemoglobin (Bld) [Mass/Vol] 13.5 g/dL 12.0-15.0 [facility] Blood platelet mean volumeOr dered By: Richie Heredia on 01-25-2023 Platelet mean volume (Bld) [Entitic vol] 12.4 fL 6.2-12.0 [facility] Determination of erythrocyte mean corpuscular volume (MCV)Ordered By: Richie Heredia on 01-25-2023 MCV (RBC) [Entitic vol] 97.9 fL 81-99 [facility] Hematocrit Auto (Bld) [Volum e fraction]Ordered By: Richie Heredia on 01-25-2023 Hematocrit (Bld) [Volume fraction] 43.0 % 37-47 [facility] Laboratory - Chemistry and C hemistry - challengeOrdered By: Richie Heredia on 01-25-2023 ALP [Catalytic activity/Vol] 84 U/L 45-117 [facility] ALT [Catalytic activity/Vol] 11 U/L 13-56 [facility] CO2 [Moles/Vol] 31.0 mmol/L 21.0-32.0 [facility] Cobalamin (Vitamin B12) [Mass/Vol] 199 pg/mL 211-911 [facility] Free T4 [Mass/Vol] 0.95 ng/dL 0.76-1.46 [facility] Globulin (S) [Mass/Vol] 3.6 g/dL 2.2-4.2 [facility] Urea nitrogen/Creatinine [Mass ratio] 16.5 mg/mg 10-20 [facility] Laboratory - Hematology and Cell countsOrdered By: Richie Heredia on 01-25-2023 Erythrocyte distribution width (RBC) [Entitic vol] 55.4 fL 35.1-43.9 [facility] Erythrocyte distribution width (RBC) [Ratio] 15.3 % 11.6-14.6 [facility] MCH (RBC) [Entitic mass] 30.8 pg 27.0-32.0 [facility] MCHC Auto (RBC) [Mass/Vol]Or dered By: Richie Heredia on 01-25-2023 MCHC (RBC) [Mass/Vol] 31.4 g/dL 32-36 [facility] No Panel InformationOrdered By: Richie Heredia on 01-25-2023 Estimated GFR (MDRD) Amer 64 mL/min >60 [facility] Comment on above: GFR Calc Estimated GFR (MDRD) Non-Af Amer 53 mL/min >60 [facility] Comment on above: Non- GFR Calc Thyroid Stimulating Hormone (TSH) 4.44 uIU/mL 0.358-3.74 [facility] Platelets bldOrdered By: Twyla Heredia on 01-25-2023 Platelets (Bld) [#/Vol] 246 10*3/uL 150-450 [facility] Serum or plasma albumin brittny urement (mass/volume)Ordered By: Richie Heredia on 01-25-2023 Albumin [Mass/Vol] 3.4 g/dL 3.2-5.0 [facility] Serum or plasma albumin/glob ulin mass ratioOrdered By: Richie Heredia on 01-25-2023 Albumin/Globulin [Mass ratio] 0.9 {ratio} 0.9-2.4 [facility] Serum or plasma calcium brittny urement (mass/volume)Ordered By: Richie Heredia on 01-25-2023 Calcium [Mass/Vol] 9.2 mg/dL 8.5-10.1 [facility] Serum or plasma cholesterol in HDL measurement (mass/volume)Ordered By: Richie Heredia on 01-25-2023 Cholesterol in HDL [Mass/Vol] 35 mg/dL >40 [facility] Comment on above: The drugs N-Acetylcy steine and Metamizole may falsely depress this assay. Reference Range HDL <40 mg/dL Low HDL Cholesterol HDL >or= 60 mg/dL High HDL Cholesterol Serum or plasma cholesterol in VLDL measurement (mass/volume)Ordered By: Richie Heredia on 01-25-2023 Cholesterol in VLDL [Mass/Vol] 35 mg/dL 5-40 [facility] Serum or plasma creatinine m easurement (mass/volume)Ordered By: Richie Heredia on 01-25-2023 Creatinine [Mass/Vol] 1.09 mg/dL 0.55-1.02 [facility] Comment on above: The validity of the calculated GFR & GFRAA in patients over 70 years has not been determined. Clinical correlation is essential. Serum or plasma low density lipoprotein (LDL) cholesterol measurement (mass/volume)Ordered By: Richie Heredia on 01-25-2023 Cholesterol in LDL [Mass/Vol] 72 mg/dL 0-130 [facility] Serum or plasma urea nitroge n measurement (mass/volume)Ordered By: Richie Heredia on 01-25-2023 Urea nitrogen [Mass/Vol] 18 mg/dL 7-18 [facility] Thin prep Papanicolaou smear with manual screeningOrdered By: Richie Heredia on 01-25-2023 Thin prep Papanicolaou smear with manual screening 9 U/L 15-37 [facility] Thin prep Papanicolaou smear with manual screening 4 5-15 [facility] MA MAMMOGRAM SCREENING BILAT ERAL W/TOMOon 10-27-2022 MA MAMMOGRAM SCREENING BILATERAL W/GLENN ORIGINAL FROM: JULIET SMITH [address] [place], [place] [address] PROCEDURE FOR: [address] [place] [address] Home: PID#: [id number] Exam#: [id number] : 1950 Age: 72 TO: R[address]IE [address] [place] [address] Fax: NO FAX EXAMINATION: SCREENING DIGITAL BILATERAL MAMMOGRAM WITH TOMOSYNTHESIS, 10/19/2022 3:38 pm TECHNIQUE: Screening mammography of the bilateral breasts was performed with tomosynthesis. 2D standard and 3D tomosynthesis combination imaging performed through both breasts in the MLO and CC projection. Computer aided detection was utilized in the interpretation of this exam. COMPARISON: 10/19/2022, 06/03/2021 HISTORY: Breast cancer screening. FINDINGS: BREAST DENSITY: Scattered fibroglandular tissue There are benign appearing calcifications in both breasts. There are no significant masses or calcifications. IMPRESSION: No mammographic evidence of malignancy. Continued screening with annual mammograms is recommended. BIRADS: MAMMOGRAM BI-RADS: 2: Benign finding RECALL: 1 year screening RECALL TYPE: mammo LETTER SENT: Normal BI-RADS 1 and 2 Interpreted by: Maximilian Fagan MD Preliminary Report By: Maximilian Fagan MD Electronically signed By Maximilian Fagan MD Dictated Date: 10/27/2022 10:09:19 AM Prelim Date: 10/27/2022 10:12:14 AM Sign Date: 10/27/2022 10:12:14 AM Ordering Provider: RICHIE HEREDIA Dental Hygiene Instructor: TANG ERNANDEZ RT (R) (M) (CT) letter sent: Normal BI-RADS 1 and 2 Mammogram BI-RADS: 2 Benign Normal [facility] [place] Absolute lymphocyte countOrd ered By: Darius Encarnacionehne on 10-20-2022 Lymphocytes Auto (Unsp spec) [#/Vol] 1.30 10*3/uL 0.83-4.51 [facility] Basophil percentageOrdered B y: Darius Ryan on 10-20-2022 Basophils/100 WBC (Bld) 0.4 % 0-1 [facility] Eosinophils/100 WBC (Bld) 0.4 % 0-5 [facility] Neutrophils (Bld) [#/Vol] 11.1 10*3/uL 2.0-7.7 [facility] Neutrophils/100 WBC (Bld) 81.1 % 47-70 [facility] WBC (Bld) [#/Vol] 13.7 10*3/uL 4.4-11.0 [facility] Bilirubin [Mass/Vol] 0.70 mg/dL 0.20-1.00 [facility] Comment on above: For patients on eltr ombopag therapy, use of Dimension [place] TBIL is not recommended. Chloride [Moles/Vol] 101 mmol/L 98-107 [facility] Glucose [Mass/Vol] 150 mg/dL 74-106 [facility] Comment on above: Fasting Glucose resu lt greater than or equal to 126 mg/dL suggests DIABETES MELLITUS per A.D.A. criteria. Potassium [Moles/Vol] 4.8 mmol/L 3.5-5.1 [facility] Comment on above: Moderate Hemolysis, Result may be falsely increased. Protein [Mass/Vol] 7.3 g/dL 6.4-8.2 [facility] Sodium [Moles/Vol] 132 mmol/L 136-145 [facility] Blood erythrocytes count (nu mber/volume)Ordered By: Darius Ryan on 10-20-2022 RBC (Bld) [#/Vol] 4.46 10*6/uL 4.2-5.4 [facility] Blood hemoglobin measurement (mass/volume)Ordered By: Darius Ryan on 10-20-2022 Hemoglobin (Bld) [Mass/Vol] 13.6 g/dL 12.0-15.0 [facility] Blood lymphocytes/100 leukoc ytesOrdered By: Darius Ryan on 10-20-2022 Lymphocytes/100 WBC (Bld) 9.5 % 19-41 [facility] Blood monocytes/100 leukocyt esOrdered By: Darius Ryan on 10-20-2022 Monocytes/100 WBC (Bld) 7.9 % 0-10 [facility] Blood platelet mean volumeOr dered By: Darius Ryan on 10-20-2022 Platelet mean volume (Bld) [Entitic vol] 11.1 fL 6.2-12.0 [facility] Determination of erythrocyte mean corpuscular volume (MCV)Ordered By: Darius Ryan on 10-20-2022 MCV (RBC) [Entitic vol] 97.3 fL 81-99 [facility] Hematocrit Auto (Bld) [Volum e fraction]Ordered By: Darius Ryan on 10-20-2022 Hematocrit (Bld) [Volume fraction] 43.4 % 37-47 [facility] Laboratory - Chemistry and C hemistry - challengeOrdered By: Dairus Ryan on 10-20-2022 ALP [Catalytic activity/Vol] 70 U/L 45-117 [facility] ALT [Catalytic activity/Vol] 16 U/L 13-56 [facility] CO2 [Moles/Vol] 21.0 mmol/L 21.0-32.0 [facility] Globulin (S) [Mass/Vol] 4.4 g/dL 2.2-4.2 [facility] Urea nitrogen/Creatinine [Mass ratio] 15.2 mg/mg 10-20 [facility] Laboratory - Hematology and Cell countsOrdered By: Darius Ryan on 10-20-2022 Erythrocyte distribution width (RBC) [Entitic vol] 47.7 fL 35.1-43.9 [facility] Erythrocyte distribution width (RBC) [Ratio] 13.2 % 11.6-14.6 [facility] Immature granulocytes/100 WBC (Bld) 0.700 % 0.0-0.9 [facility] Comment on above: IG% - Immature Granu locytes (promyelocytes, myelocytes and metamyelocytes) > 1% indicates that a LEFT SHIFT is Present. MCH (RBC) [Entitic mass] 30.5 pg 27.0-32.0 [facility] Nucleated RBC/100 WBC (Bld) [Ratio] 0 % 0-5 [facility] MCHC Auto (RBC) [Mass/Vol]Or dered By: Darius Ryan on 10-20-2022 MCHC (RBC) [Mass/Vol] 31.3 g/dL 32-36 [facility] No Panel InformationOrdered By: Darius Ryan on 10-20-2022 Estimated GFR (MDRD) Amer 62 mL/min >60 [facility] Comment on above: GFR Calc Estimated GFR (MDRD) Non-Af Amer 51 mL/min >60 [facility] Comment on above: Non- GFR Calc Troponin I High Sensitivity 17 pg/mL 3.0-54.0 [facility] Comment on above: Please Note: New Alanis t Units and Gender Specific Reference Ranges. For more information see Policy Stat Procedure [place] High Sensitivity Troponin (TNIH) and attachments. Ova and parasitesOrdered By: Darius Ryan on 10-20-2022 Ova and parasites identified LM Nom (Unsp spec) [facility] Platelets bldOrdered By: Bruce Ryan on 10-20-2022 Platelets (Bld) [#/Vol] 370 10*3/uL 150-450 [facility] Serum or plasma albumin brittny urement (mass/volume)Ordered By: Darius Ryan on 10-20-2022 Albumin [Mass/Vol] 2.9 g/dL 3.2-5.0 [facility] Serum or plasma albumin/glob ulin mass ratioOrdered By: Darius Ryan on 10-20-2022 Albumin/Globulin [Mass ratio] 0.7 {ratio} 0.9-2.4 [facility] Serum or plasma calcium brittny urement (mass/volume)Ordered By: Darius Ryan on 10-20-2022 Calcium [Mass/Vol] 9.5 mg/dL 8.5-10.1 [facility] Serum or plasma creatinine m easurement (mass/volume)Ordered By: Darius Ryan on 10-20-2022 Creatinine [Mass/Vol] 1.12 mg/dL 0.55-1.02 [facility] Comment on above: The validity of the calculated GFR & GFRAA in patients over 70 years has not been determined. Clinical correlation is essential. Serum or plasma urea nitroge n measurement (mass/volume)Ordered By: Darius Ryan on 10-20-2022 Urea nitrogen [Mass/Vol] 17 mg/dL 7-18 [facility] Stool lactoferrin detection by immunoassayOrdered By: Darius Ryan on 10-20-2022 Lactoferrin IA Ql (Stl) [facility] Thin prep Papanicolaou smear with manual screeningOrdered By: Darius Ryan on 10-20-2022 Thin prep Papanicolaou smear with manual screening 21 U/L 15-37 [facility] Comment on above: Moderate Hemolysis, Result may be falsely increased. Thin prep Papanicolaou smear with manual screening 10 5-15 [facility] Basophil percentageOrdered B y: Richie Heredia on 07-07-2022 Bilirubin [Mass/Vol] 0.50 mg/dL 0.20-1.00 [facility] Comment on above: For patients on eltr ombopag therapy, use of Dimension [place] TBIL is not recommended. Chloride [Moles/Vol] 104 mmol/L 98-107 [facility] Glucose [Mass/Vol] 161 mg/dL 74-106 [facility] Comment on above: Fasting Glucose resu lt greater than or equal to 126 mg/dL suggests DIABETES MELLITUS per A.D.A. criteria. Potassium [Moles/Vol] 4.6 mmol/L 3.5-5.1 [facility] Protein [Mass/Vol] 7.0 g/dL 6.4-8.2 [facility] Sodium [Moles/Vol] 138 mmol/L 136-145 [facility] WBC (Bld) [#/Vol] 11.8 10*3/uL 4.4-11.0 [facility] Blood erythrocytes count (nu mber/volume)Ordered By: Richie Heredia on 07-07-2022 RBC (Bld) [#/Vol] 4.51 10*6/uL 4.2-5.4 [facility] Blood hemoglobin measurement (mass/volume)Ordered By: Richie Heredia on 07-07-2022 Hemoglobin (Bld) [Mass/Vol] 14.2 g/dL 12.0-15.0 [facility] Blood platelet mean volumeOr dered By: Richie Heredia on 07-07-2022 Platelet mean volume (Bld) [Entitic vol] 11.1 fL 6.2-12.0 [facility] Determination of erythrocyte mean corpuscular volume (MCV)Ordered By: Richie Heredia on 07-07-2022 MCV (RBC) [Entitic vol] 97.3 fL 81-99 [facility] Hematocrit Auto (Bld) [Volum e fraction]Ordered By: Richie Heredia on 07-07-2022 Hematocrit (Bld) [Volume fraction] 43.9 % 37-47 [facility] Laboratory - Chemistry and C hemistry - challengeOrdered By: Richie Heredia on 07-07-2022 ALP [Catalytic activity/Vol] 80 U/L 45-117 [facility] ALT [Catalytic activity/Vol] 24 U/L 13-56 [facility] CO2 [Moles/Vol] 28.0 mmol/L 21.0-32.0 [facility] Free T4 [Mass/Vol] 0.96 ng/dL 0.76-1.46 [facility] Globulin (S) [Mass/Vol] 3.5 g/dL 2.2-4.2 [facility] Natriuretic peptide B (Bld) [Mass/Vol] 76.7 pg/mL 0-100 [facility] Urea nitrogen/Creatinine [Mass ratio] 25.1 mg/mg 10-20 [facility] Laboratory - Hematology and Cell countsOrdered By: Richie Heredia on 07-07-2022 Erythrocyte distribution width (RBC) [Entitic vol] 48.2 fL 35.1-43.9 [facility] Erythrocyte distribution width (RBC) [Ratio] 13.5 % 11.6-14.6 [facility] MCH (RBC) [Entitic mass] 31.5 pg 27.0-32.0 [facility] MCHC Auto (RBC) [Mass/Vol]Or dered By: Richie Heredia on 07-07-2022 MCHC (RBC) [Mass/Vol] 32.3 g/dL 32-36 [facility] No Panel InformationOrdered By: Richie Heredia on 07-07-2022 Estimated GFR (MDRD) Amer 78 mL/min >60 [facility] Comment on above: GFR Calc Estimated GFR (MDRD) Non-Af Amer 64 mL/min >60 [facility] Comment on above: Non- GFR Calc Thyroid Stimulating Hormone (TSH) 2.44 uIU/mL 0.358-3.74 [facility] Platelets bldOrdered By: Twyla Heredia on 07-07-2022 Platelets (Bld) [#/Vol] 263 10*3/uL 150-450 [facility] Serum or plasma albumin brittny urement (mass/volume)Ordered By: Richie Heredia on 07-07-2022 Albumin [Mass/Vol] 3.5 g/dL 3.2-5.0 [facility] Serum or plasma albumin/glob ulin mass ratioOrdered By: Richie Heredia on 07-07-2022 Albumin/Globulin [Mass ratio] 1.0 {ratio} 0.9-2.4 [facility] Serum or plasma calcium brittny urement (mass/volume)Ordered By: Richie Heredia on 07-07-2022 Calcium [Mass/Vol] 9.1 mg/dL 8.5-10.1 [facility] Serum or plasma creatinine m easurement (mass/volume)Ordered By: Richie Heredia on 07-07-2022 Creatinine [Mass/Vol] 0.92 mg/dL 0.55-1.02 [facility] Comment on above: The validity of the calculated GFR & GFRAA in patients over 70 years has not been determined. Clinical correlation is essential. Serum or plasma urea nitroge n measurement (mass/volume)Ordered By: Richie Heredia on 07-07-2022 Urea nitrogen [Mass/Vol] 23 mg/dL 7-18 [facility] Thin prep Papanicolaou smear with manual screeningOrdered By: Richie Heredia on 07-07-2022 Thin prep Papanicolaou smear with manual screening 14 U/L 15-37 [facility] Thin prep Papanicolaou smear with manual screening 6 5-15 [facility] Whole blood hemoglobin A1c/t otal hemoglobin ratio (mass fraction)Ordered By: Richie Heredia on 07-07-2022 HbA1c (Bld) [Mass fraction] 6.5 % 3.8-5.6 [facility] Comment on above: Normal < 5.7 % Predi abetic 5.7 - 6.4 % Diabetic >or= 6.5 % Please note range changes. Basophil percentageOrdered B y: Dr. Heredia on 03-03-2022 Bilirubin [Mass/Vol] 0.30 mg/dL 0.20-1.00 [facility] Comment on above: For patients on eltr ombopag therapy, use of Dimension [place] TBIL is not recommended. Chloride [Moles/Vol] 103 mmol/L 98-107 [facility] Cholesterol [Mass/Vol] 170 mg/dL <200 [facility] Comment on above: <200 mg/dL Desirable 200-240 mg/dL Borderline >240 mg/dL High Risk Glucose [Mass/Vol] 153 mg/dL 74-106 [facility] Comment on above: Fasting Glucose resu lt greater than or equal to 126 mg/dL suggests DIABETES MELLITUS per A.D.A. criteria. Potassium [Moles/Vol] 4.4 mmol/L 3.5-5.1 [facility] Protein [Mass/Vol] 6.3 g/dL 6.4-8.2 [facility] Sodium [Moles/Vol] 138 mmol/L 136-145 [facility] Triglyceride [Mass/Vol] 128 mg/dL <199 [facility] Comment on above: The drugs N-Acetylcy steine and Metamizole may falsely depress this assay.Serum Triglycerides Reference Interval Normal <150 mg/dL Borderline high 150 - 199 mg/dL High 200 - 499 mg/dL Very High > or = 500 mg/dL WBC (Bld) [#/Vol] 6.8 10*3/uL 4.4-11.0 [facility] Bilirubin Test strip Ql (U)O rdered By: Dr. Heredia on 03-03-2022 Bilirubin Ql (U) Negative Negative [facility] Blood erythrocytes count (nu mber/volume)Ordered By: Dr. Heredia on 03-03-2022 RBC (Bld) [#/Vol] 4.39 10*6/uL 4.2-5.4 [facility] Blood hemoglobin measurement (mass/volume)Ordered By: Dr. Heredia on 03-03-2022 Hemoglobin (Bld) [Mass/Vol] 13.5 g/dL 12.0-15.0 [facility] Blood platelet mean volumeOr dered By: Dr. Heredia on 03-03-2022 Platelet mean volume (Bld) [Entitic vol] 11.7 fL 6.2-12.0 [facility] Determination of erythrocyte mean corpuscular volume (MCV)Ordered By: Dr. Heredia on 03-03-2022 MCV (RBC) [Entitic vol] 96.4 fL 81-99 [facility] Hematocrit Auto (Bld) [Volum e fraction]Ordered By: Dr. Heredia on 03-03-2022 Hematocrit (Bld) [Volume fraction] 42.3 % 37-47 [facility] Ketones Test strip Ql (U)Ord ered By: Dr. Heredia on 03-03-2022 Ketones Ql (U) Negative Negative [facility] Laboratory - Chemistry and C hemistry - challengeOrdered By: Dr. Heredia on 03-03-2022 ALP [Catalytic activity/Vol] 68 U/L 45-117 [facility] ALT [Catalytic activity/Vol] 20 U/L 13-56 [facility] CO2 [Moles/Vol] 28.0 mmol/L 21.0-32.0 [facility] Free T4 [Mass/Vol] 1.00 ng/dL 0.76-1.46 [facility] Globulin (S) [Mass/Vol] 3.0 g/dL 2.2-4.2 [facility] Urea nitrogen/Creatinine [Mass ratio] 34.0 mg/mg 10-20 [facility] Laboratory - Hematology and Cell countsOrdered By: Dr. Heredia on 03-03-2022 Erythrocyte distribution width (RBC) [Entitic vol] 51.1 fL 35.1-43.9 [facility] Erythrocyte distribution width (RBC) [Ratio] 14.3 % 11.6-14.6 [facility] MCH (RBC) [Entitic mass] 30.8 pg 27.0-32.0 [facility] MCHC Auto (RBC) [Mass/Vol]Or dered By: Dr. Heredia on 03-03-2022 MCHC (RBC) [Mass/Vol] 31.9 g/dL 32-36 [facility] Nitrite Test strip Ql (U)Ord ered By: Dr. Heredia on 03-03-2022 Nitrite Ql (U) Negative Negative [facility] No Panel InformationOrdered By: Dr. Heredia on 03-03-2022 Estimated GFR (MDRD) Amer 100 mL/min >60 [facility] Comment on above: GFR Calc Estimated GFR (MDRD) Non-Af Amer 83 mL/min >60 [facility] Comment on above: Non- GFR Calc Thyroid Stimulating Hormone (TSH) 1.74 uIU/mL 0.358-3.74 [facility] Platelets bldOrdered By: Dr. Heredia on 03-03-2022 Platelets (Bld) [#/Vol] 225 10*3/uL 150-450 [facility] Protein Test strip Ql (U)Ord ered By: Dr. Heredia on 03-03-2022 Protein Ql (U) Negative Negative [facility] Serum or plasma albumin brittny urement (mass/volume)Ordered By: Dr. Heredia on 03-03-2022 Albumin [Mass/Vol] 3.3 g/dL 3.2-5.0 [facility] Serum or plasma albumin/glob ulin mass ratioOrdered By: Dr. Heredia on 03-03-2022 Albumin/Globulin [Mass ratio] 1.1 {ratio} 0.9-2.4 [facility] Serum or plasma calcium brittny urement (mass/volume)Ordered By: Dr. Heredia on 03-03-2022 Calcium [Mass/Vol] 8.8 mg/dL 8.5-10.1 [facility] Serum or plasma cholesterol in HDL measurement (mass/volume)Ordered By: Dr. Heredia on 03-03-2022 Cholesterol in HDL [Mass/Vol] 44 mg/dL >40 [facility] Comment on above: The drugs N-Acetylcy steine and Metamizole may falsely depress this assay. Reference Range HDL <40 mg/dL Low HDL Cholesterol HDL >or= 60 mg/dL High HDL Cholesterol Serum or plasma cholesterol in VLDL measurement (mass/volume)Ordered By: Dr. Heredia on 03-03-2022 Cholesterol in VLDL [Mass/Vol] 26 mg/dL 5-40 [facility] Serum or plasma creatinine m easurement (mass/volume)Ordered By: Dr. Heredia on 03-03-2022 Creatinine [Mass/Vol] 0.74 mg/dL 0.55-1.02 [facility] Comment on above: The validity of the calculated GFR & GFRAA in patients over 70 years has not been determined. Clinical correlation is essential. Serum or plasma low density lipoprotein (LDL) cholesterol measurement (mass/volume)Ordered By: Dr. Heredia on 03-03-2022 Cholesterol in LDL [Mass/Vol] 100 mg/dL 0-130 [facility] Serum or plasma urea nitroge n measurement (mass/volume)Ordered By: Dr. Heredia on 03-03-2022 Urea nitrogen [Mass/Vol] 25 mg/dL 7-18 [facility] Thin prep Papanicolaou smear with manual screeningOrdered By: Dr. Heredia on 03-03-2022 Thin prep Papanicolaou smear with manual screening 12 U/L 15-37 [facility] Thin prep Papanicolaou smear with manual screening 7 5-15 [facility] Thin prep Papanicolaou smear with manual screening 26.7 mg/L NO RANGE EST. [facility] Urine blood detectionOrdered By: Dr. Heredia on 03-03-2022 RBC Ql (U) Negative Negative [facility] Urine clarityOrdered By: Dr. Heredia on 03-03-2022 Clarity (U) Clear Clear [facility] Urine color determinationOrd ered By: Dr. Heredia on 03-03-2022 Color (U) Yellow Yellow [facility] Urine glucose detectionOrder ed By: Dr. Heredia on 03-03-2022 Glucose Ql (U) Normal mg/dl Normal [facility] Urine leukocyte esterase det ection by dipstickOrdered By: Dr. Heredia on 03-03-2022 Leukocyte esterase Test strip Ql (U) Negative Negative [facility] Urine pHOrdered By: Dr. Mayco charlton on 03-03-2022 pH (U) 5.0 [pH] 5.0 - 8.0 [facility] Urine specific gravity measu rementOrdered By: Dr. Heredia on 03-03-2022 Specific gravity (U) [Rel density] 1.020 1.002-1.030 [facility] Urobilinogen Auto test strip Ql (U)Ordered By: Dr. Heredia on 03-03-2022 Urobilinogen Ql (U) Normal mg/dl Normal [facility] Whole blood hemoglobin A1c/t otal hemoglobin ratio (mass fraction)Ordered By: Dr. Heredia on 03-03-2022 HbA1c (Bld) [Mass fraction] 6.6 % 3.8-5.6 [facility] Comment on above: Normal < 5.7 % Predi abetic 5.7 - 6.4 % Diabetic >or= 6.5 % Please note range changes. CNPLorin 09-10-2021 CNPN Telephone ([email or web address]) [address] ([id number]) 1950 F Date Time Provider Department 09/10/21 NAYE BETTS During your visit today, we recorded the following information about you: Marium Borrero 09/10/2021 9:45 AM Signed 10/07 colon/egd lodi Demetrius Mccarty 10/01/2021 9:25 AM Signed Cardiac clearance obtained and scanned into EPIC Marium Gissell 10/06/2021 8:19 AM Signed 1st attempt to contact patient to inform clearance was not met and procedure tomorrow in [place] with Alpesh had to be cancelled until the clearance is met and approved. LV to contact me directly if any questions. Marium Gissell Allergies As of Date: 09/10/2021 Noted Allergy Reaction DARVOCET A500 (PROPOXYPHENE N-LEFTY*05/17/2006 DARVON (PROPOXYPHENE HCL) 05/17/2006 DEMORAL (MEPERIDINE) 05/17/2006 PENICILLINS 05/17/2006 Date Reviewed: 09/09/2021 Reviewed by: Mary Thomas PA-C - Fully Assessed Reason for Visit: 10/07 colon/egd lodi [Other] Prescriptions as of 10/30/2021 - gabapentin (NEURONTIN) 400 mg capsule Take 400 mg by mouth three times daily. - meloxicam (MOBIC) 15 mg tablet Take 15 mg by mouth once daily. - pravastatin (PRAVACHOL) 10 mg tablet Take 10 mg by mouth once daily. - metoprolol succinate ER (TOPROL XL) 25 mg 24 hr tablet Take 25 mg by mouth once daily. - empagliflozin (JARDIANCE) 25 mg tablet Take 25 mg by mouth daily with breakfast. - metFORMIN (GLUCOPHAGE) 500 mg tablet Take 1,000 mg by mouth twice daily with meals. - escitalopram oxalate (LEXAPRO) 20 mg tablet Take 20 mg by mouth once daily. - furosemide (LASIX) 40 mg tablet Take 40 mg by mouth once daily. - oxyCODONE IR (ROXICODONE) 10 mg tab Take 10 mg by mouth four times daily. - rOPINIRole (REQUIP) 0.5 mg tablet Take 1 mg by mouth daily at bedtime. - morphine SR (MARISSA) 20 mg ORAL CSRP Take one(1) tablet two(2) times daily. - morphine SR 20 mg ORAL C24P Take one(1) tablet daily. - DIGITOXIN POWDER Take one(1) tablet daily. - DILTIAZEM CR 240 MG CAP Take one(1) tablet daily. - EFFEXOR 75 MG TAB Take one(1) tablet two(2) times daily. - ADULT ASPIRIN EC LOW STRENGTH 81 MG TAB, DELAYED RELEASE Take one(1) tablet daily. - PROPAFENONE 150 MG TAB Take one(1) tablet daily. - GLUCOTROL 10 MG TAB Take one(1) tablet daily. Problem List As Of Date 09/10/2021 Noted Resolved NONHEALING SURGICAL WOUND [T81.89XA] 06/25/2006 Encounter Status:Closed by MARIUM BORRERO on 10/30/21 [facility] CNOVon 09-09-2021 CNOV Office Visit (GENSWS) [address] ([id number]) 1950 F Date Time Provider Department 09/09/21 1:30 PM MARY THOMAS During your visit today, we recorded the following information about you: Temperature Pulse Blood pressure Weight 98.4 degrees 85/minute 128/60 108 kg Height 1.524 m Mary Thomas PA-C 09/16/2021 3:45 PM Signed HISTORY AND PHYSICAL [address] 1950 REFERRING PHYSICIAN: Richie Heredia IV, MD CHIEF COMPLAINT: Consult (colonoscopy consult) HPI: The patient is a 71 year old female referred for endoscopy. David notes her bowel habits occasionally alternate between constipation and diarrhea. Patient denies any weight changes, blood in stools, black tarry stools or abdominal pain. Denies family history of colon issues. The patient NOTES occasional dysphagia worse with hamburger and pills. NOTES history of tobacco use. David has undergone remote prior endoscopy-. Patient's past medical history is significant for heart disease, atrial fibrillation, diabetes mellitus, hypertension, sleep apnea. Patient uses home oxygen at night. Patient follows with Dr. Richie Heredia IV in primary care for her chronic medical conditions, and with [facility] for her heart issues, Dr. Hurley for pulmonology. Patient denies chest pain or shortness of breath. PAST MEDICAL HISTORY Diagnosis Date - Atrial fibrillation (HCC) - Diabetes mellitus without mention of complication Diabetes mellitus - Heart disease, unspecified - hypertension - Unspecified asthma, with exacerbation - Unspecified sleep apnea PAST SURGICAL HISTORY Procedure Laterality Date - ARTHRP KNE CONDYLEANDPLATU MEDIALANDLAT COMPARTMENTS placido 2000 Knee replacement, total - COLONOSCOPY 1993 - EXC TUMOR SOFT TISS UPPER ARM/ELBW SUBFASC 5+CM Right benign - FOREIGN BODY REMOVAL left ear - PAST SURGICAL HISTORY OF bilateral lens implants - REMOVAL GALLBLADDER - VAGINAL HYSTERECTOMY UTERUS 250 GM/< Hysterectomy, vaginal Current Outpatient Medications Medication Sig - gabapentin (NEURONTIN) 400 mg capsule Take 400 mg by mouth three times daily. - meloxicam (MOBIC) 15 mg tablet Take 15 mg by mouth once daily. - pravastatin (PRAVACHOL) 10 mg tablet Take 10 mg by mouth once daily. - metoprolol succinate ER (TOPROL XL) 25 mg 24 hr tablet Take 25 mg by mouth once daily. - empagliflozin (JARDIANCE) 25 mg tablet Take 25 mg by mouth daily with breakfast. - metFORMIN (GLUCOPHAGE) 500 mg tablet Take 1,000 mg by mouth twice daily with meals. - escitalopram oxalate (LEXAPRO) 20 mg tablet Take 20 mg by mouth once daily. - furosemide (LASIX) 40 mg tablet Take 40 mg by mouth once daily. - oxyCODONE IR (ROXICODONE) 10 mg tab Take 10 mg by mouth four times daily. - rOPINIRole (REQUIP) 0.5 mg tablet Take 1 mg by mouth daily at bedtime. - ADULT ASPIRIN EC LOW STRENGTH 81 MG TAB, DELAYED RELEASE Take one(1) tablet daily. - morphine SR (MARISSA) 20 mg ORAL CSRP Take one(1) tablet two(2) times daily. (Patient not taking: No sig reported) - morphine SR 20 mg ORAL C24P Take one(1) tablet daily. (Patient not taking: No sig reported) - DIGITOXIN POWDER Take one(1) tablet daily. (Patient not taking: ) - DILTIAZEM CR 240 MG CAP Take one(1) tablet daily. (Patient not taking: Capsule may be opened and contents sprinkled on applesauce. Swallow applesauce without chewing. ) - EFFEXOR 75 MG TAB Take one(1) tablet two(2) times daily. (Patient not taking: ) - PROPAFENONE 150 MG TAB Take one(1) tablet daily. (Patient not taking: ) - GLUCOTROL 10 MG TAB Take one(1) tablet daily. (Patient not taking: ) No current facility-administere d medications for this visit. ALLERGIES: Darvocet A500 [Propoxyphene N-Acetaminophen], Darvon [Propoxyphene Hcl], Demoral [Meperidine], and Penicillins PERSONAL HISTORY: Social History Tobacco Use - Smoking status: Current Every Day Smoker - Smokeless tobacco: Never Used Vaping Use - Vaping Use: Never used Substance Use Topics - Alcohol use: No - Drug use: No FAMILY HISTORY: FAMILY HISTORY Problem Relation Age of Onset - Diabetes Mother - Heart Mother - Tuberculosis Mother - Heart Brother - Cancer Brother - Brain Cancer Maternal Uncle - Brain Cancer Maternal Uncle throat cancer - Lung Cancer Maternal Uncle REVIEW OF SYMPTOMS: The review of systems data was entered by the nurse and reviewed by vt Nursing Notes: Marium Borrero 09/09/2021 2:57 PM Signed REVIEW OF SYSTEMS: General: The patient denies fatigue, denies weight loss, denies weight gain, NOTES feeling hot, and denies feelings of cold. Eyes: The patient denies glaucoma, NOTES eye injury/surgery, does not wear glasses or contacts. Ear/Nose/Throat: The patient denies allergies, NOTES hayfever, denies ear infections, and denies bloody noses. Cardiovascular: The patient denies chest p (more content not included)... Normal [facility] Sawyer 09-09-2021 [facility] Telephone ([facility]) [address] ([id number]) 1950 F Date Time Provider Department 09/09/21 MARY THOMAS During your visit today, we recorded the following information about you: Marium Borrero 09/09/2021 2:47 PM Signed 09/23 [facility]ON EGD [facility] Marium Borrero 09/09/2021 2:50 PM Signed Addended by: MARIUM BORRERO on: 09/09/2021 02:50 PM Modules accepted: Orders Marium Borrero 09/09/2021 2:50 PM Signed ENTERED OP TIME Marium Borrero 09/09/2021 2:53 PM Signed Patient is needing pulmonary and cardiac clearance Patient sees Dr. Montiel at the [facility] and sees Dr. Hurley at [facility] Patient is scheduled for both upper and lower scope in [place] with Dr. Betts on 09/23 Demetrius Mccarty 09/11/2021 9:08 AM Signed Clearance has been requested, please check scanned documents Demetrius Mccarty 10/01/2021 9:25 AM Signed Cardiac clearance obtained and scanned into Epic Demetrius Mccarty 11/05/2021 4:14 PM Signed Pulmonary clearance obtained and scanned into Epic Marium Borrero 11/06/2021 12:01 PM Signed Called patient to schedule upper and lower scopes with Dr. Betts in [place] since clearance has been met. Per patient stated she wants to wait until after she see Dr. Mullen first on 11/12 before setting anything up. Patient made aware she was cleared to proceed Per patient stated she will call in after her appointment and go from there. Marium Borrero 11/07/2021 9:08 AM Addendum 1st attempt to contact patient in regards to upcome "stress test" as mentioned from the patient yesterday. Calling for clarifications per Mary Sharmamail was full and was unable to reach patient. Will try again later Marium Borrero Allergies As of Date: 09/09/2021 Noted Allergy Reaction DARVOCET A500 (PROPOXYPHENE N-LEFTY*05/17/2006 DARVON (PROPOXYPHENE HCL) 05/17/2006 DEMORAL (MEPERIDINE) 05/17/2006 PENICILLINS 05/17/2006 Date Reviewed: 09/09/2021 Reviewed by: Mary Thomas PA-C - Fully Assessed Reason for Visit: 09/23 COLON EGD [facility] [Other] Primary Visit Diagnosis:Screening for colon cancer [Z12.11] Other Visit Diagnoses:Dysphagia, unspecified type [R13.10] History of tobacco use [Z87.891] Order(s):COLONOSCOPY SCREENING [GI51] Order #: [id number] FUTURE EGD DIAGNOSTIC [GI9] Order #: [id number] FUTURE Prescriptions as of 11/07/2021 - gabapentin (NEURONTIN) 400 mg capsule Take 400 mg by mouth three times daily. - meloxicam (MOBIC) 15 mg tablet Take 15 mg by mouth once daily. - pravastatin (PRAVACHOL) 10 mg tablet Take 10 mg by mouth once daily. - metoprolol succinate ER (TOPROL XL) 25 mg 24 hr tablet Take 25 mg by mouth once daily. - empagliflozin (JARDIANCE) 25 mg tablet Take 25 mg by mouth daily with breakfast. - metFORMIN (GLUCOPHAGE) 500 mg tablet Take 1,000 mg by mouth twice daily with meals. - escitalopram oxalate (LEXAPRO) 20 mg tablet Take 20 mg by mouth once daily. - furosemide (LASIX) 40 mg tablet Take 40 mg by mouth once daily. - oxyCODONE IR (ROXICODONE) 10 mg tab Take 10 mg by mouth four times daily. - rOPINIRole (REQUIP) 0.5 mg tablet Take 1 mg by mouth daily at bedtime. - morphine SR (MARISSA) 20 mg ORAL CSRP Take one(1) tablet two(2) times daily. - morphine SR 20 mg ORAL C24P Take one(1) tablet daily. - DIGITOXIN POWDER Take one(1) tablet daily. - DILTIAZEM CR 240 MG CAP Take one(1) tablet daily. - EFFEXOR 75 MG TAB Take one(1) tablet two(2) times daily. - ADULT ASPIRIN EC LOW STRENGTH 81 MG TAB, DELAYED RELEASE Take one(1) tablet daily. - PROPAFENONE 150 MG TAB Take one(1) tablet daily. - GLUCOTROL 10 MG TAB Take one(1) tablet daily. Problem List As Of Date 09/09/2021 Noted Resolved NONHEALING SURGICAL WOUND [T81.89XA] 06/25/2006 Encounter Status:Closed by MARIUM BORRERO on 09/09/21 Normal [facility] CNCOon 07-25-2021 CNCO Letter Text Normal [facility] Absolute lymphocyte counton 05-23-2021 Lymphocytes Auto (Unsp spec) [#/Vol] 1.83 10*3/uL 0.83-4.51 [facility] Work Phone: Basophil percentageon 2021 Basophils/100 WBC (Bld) 0.4 % 0-1 [facility] Work Phone: Chloride [Moles/Vol] 108 mmol/L 98-107 [facility] Work Phone: Eosinophils/100 WBC (Bld) 1.2 % 0-5 [facility] Work Phone: Glucose [Mass/Vol] 170 mg/dL 74-106 [facility] Work Phone: Comment on above: Fasting Glucose resu lt greater than or equal to 126 mg/dL suggests DIABETES MELLITUS per A.D.A. criteria. Neutrophils (Bld) [#/Vol] 4.8 10*3/uL 2.0-7.7 [facility] Work Phone: Neutrophils/100 WBC (Bld) 64.7 % 47-70 [facility] Work Phone: Potassium [Moles/Vol] 3.9 mmol/L 3.5-5.1 [facility] Work Phone: Sodium [Moles/Vol] 139 mmol/L 136-145 [facility] Work Phone: WBC (Bld) [#/Vol] 7.4 10*3/uL 4.4-11.0 [facility] Work Phone: Blood erythrocytes count (nu mber/volume)on 04-01-2022 RBC (Bld) [#/Vol] 4.88 10*6/uL 4.2-5.4 [facility] Work Phone: Blood hemoglobin measurement (mass/volume)on 05-23-2021 Hemoglobin (Bld) [Mass/Vol] 15.1 g/dL 12.0-15.0 [facility] Work Phone: Blood lymphocytes/100 leukoc yteson 05-23-2021 Lymphocytes/100 WBC (Bld) 24.8 % 19-41 [facility] Work Phone: [phone] Blood monocytes/100 leukocyt eson 05-23-2021 Monocytes/100 WBC (Bld) 8.4 % 0-10 [facility] Work Phone: Blood platelet mean volumeon 05-23-2021 Platelet mean volume (Bld) [Entitic vol] 11.8 fL 6.2-12.0 [facility] Work Phone: Determination of erythrocyte mean corpuscular volume (MCV)on 05-23-2021 MCV (RBC) [Entitic vol] 94.9 fL 81-99 [facility] Work Phone: Hematocrit Auto (Bld) [Volum e fraction]on 05-23-2021 Hematocrit (Bld) [Volume fraction] 46.3 % 37-47 [facility] Work Phone: Laboratory - Chemistry and C hemistry - challengeon 05-23-2021 CO2 [Moles/Vol] 26.0 mmol/L 21.0-32.0 [facility] Work Phone: Urea nitrogen/Creatinine [Mass ratio] 7.7 mg/mg 10-20 [facility] Work Phone: [phone] Laboratory - Hematology and Cell countson 05-23-2021 Erythrocyte distribution width (RBC) [Entitic vol] 47.0 fL 35.1-43.9 [facility] Work Phone: [phone] Erythrocyte distribution width (RBC) [Ratio] 13.2 % 11.6-14.6 [facility] Work Phone: Immature granulocytes/100 WBC (Bld) 0.500 % 0.0-0.9 [facility] Work Phone: [phone] Comment on above: IG% - Immature Granu locytes (promyelocytes, myelocytes and metamyelocytes) > 1% indicates that a LEFT SHIFT is Present. MCH (RBC) [Entitic mass] 30.9 pg 27.0-32.0 [facility] Work Phone: [phone] Nucleated RBC/100 WBC (Bld) [Ratio] 0 % 0-5 [facility] Work Phone: [phone] MCHC Auto (RBC) [Mass/Vol]on 05-23-2021 MCHC (RBC) [Mass/Vol] 32.6 g/dL 32-36 [facility] Work Phone: [phone] No Panel Informationon 05-23 Estimated Creatinine Clearance Calc 36.67 ml/min [facility] Work Phone: [phone] Estimated GFR (MDRD) Amer 67 mL/min >60 [facility] Work Phone: [phone] Comment on above: GFR Calc Estimated GFR (MDRD) Non-Af Amer 56 mL/min >60 [facility] Work Phone: [phone] Comment on above: Non- GFR Calc Troponin I High Sensitivity 8 pg/mL 3.0-54.0 [facility] Work Phone: Comment on above: Please Note: New Alanis t Units and Gender Specific Reference Ranges. For more information see Policy Stat Procedure [place] High Sensitivity Troponin (TNIH) and attachments. Platelets bldon 05-23-2021 Platelets (Bld) [#/Vol] 291 10*3/uL 150-450 [facility] Work Phone: [phone] Serum or plasma calcium brittny urement (mass/volume)on 05-23-2021 Calcium [Mass/Vol] 8.9 mg/dL 8.5-10.1 [facility] Work Phone: [phone] Serum or plasma creatinine m easurement (mass/volume)on 05-23-2021 Creatinine [Mass/Vol] 1.04 mg/dL 0.55-1.02 [facility] Work Phone: Comment on above: The validity of the calculated GFR & GFRAA in patients over 70 years has not been determined. Clinical correlation is essential. Serum or plasma urea nitroge n measurement (mass/volume)on 05-23-2021 Urea nitrogen [Mass/Vol] 8 mg/dL 7-18 [facility] Work Phone: Thin prep Papanicolaou smear with manual screeningon 05-23-2021 Thin prep Papanicolaou smear with manual screening 5 5-15 [facility] Work Phone: LABORATORYOrdered By: Gay Nash on 01-15-2021 ADMITTED TO INTENSIVE CARE UNIT FOR CONDITION OF INTEREST:FIND:PT:^PATIEN T:ORD: No (01/15/21 12:20 PM) Invalid Interpretation Code AO Auto Urine SS EMPLOYED IN A HEALTHCARE SETTING:FIND:PT:^PATIENT :ORD: No (01/15/21 12:20 PM) Invalid Interpretation Code AO Auto Urine SS FIRST TEST FOR CONDITION OF INTEREST:FIND:PT:^PATIEN T:ORD: No (01/15/21 12:20 PM) Invalid Interpretation Code AO Auto Urine SS HAS SYMPTOMS RELATED TO CONDITION OF INTEREST:FIND:PT:^PATIEN T:ORD: Yes (01/15/21 12:20 PM) Invalid Interpretation Code AO Auto Urine SS Illness or injury onset date and time 20210115 Invalid Interpretation Code AO Auto Urine SS Patient was hospitalized because of this condition No (01/15/21 12:20 PM) Invalid Interpretation Code AO Auto Urine SS status Not (01/15/21 12:20 PM) Invalid Interpretation Code AO Auto Urine SS RESIDES IN A CONGREGATE CARE SETTING:FIND:PT:^PATIENT :ORD: No (01/15/21 12:20 PM) Invalid Interpretation Code AO Auto Urine SS SARS-CoV-2 (COVID-19) RNA IVAN+probe Ql (Resp) Positive *ABN* (01/15/21 12:20 PM) Invalid Interpretation Code Negative AO Auto Urine SS SARS-CoV-2 (COVID-19) RNA IVAN+probe Ql (Unsp spec) Positive results are indicative of the presence of SARS-CoV-2 RNA; clinical correlation with patient history and other diagnostic information is necessary to determine patient infection status. Positive results do not rule out bacterial infection or co-infection with other viruses. The agent detected may not be the definite cause of disease. Laboratories within the [place] and its territories are required to report all positive results to the appropriate public health authorities.Detectio n of analyte target(s) does not imply that the corresponding virus(es) are infectious or are the causative agents for clinical symptoms.There is a risk of false positive values resulting from cross-contamination by target organisms, their nucleic acids or amplified product, or from non-specific signals in the assay.poLight SARS-CoV-2 Assay is a Real-Time reverse-transcriptas e polymerase chain reaction (RT-PCR) based qualitative in vitro diagnostic test intended for the qualitative detection of nucleic acid from the SARS-CoV-2 in nasopharyngeal swab specimens collected from individuals suspected of COVID-19 by their healthcare provider. Testing is limited to laboratories certified under the Clinical Laboratory Improvement Amendments of 1988 (CLIA), 42 U.S.C. 263a, to perform moderate and high complexity tests. Invalid Interpretation Code AO Auto Urine SS Otheron 05-19-2000 CONVERTED ELECTRONIC SIGNATURE SHANA CUELLO M.D., PATHOLOGIST (Electronic signature on file) Final Signed Out: 05/19/2000 12:53 [facility] CONVERTED FINAL DIAGNOSIS SYNOVIUM AND GANGLION, LEFT WRIST, EXCISION - GANGLION CYST AND UNREMARKABLE SYNOVIUM. [facility] CONVERTED ORDERING PROVIDER Ordering Provider: [facility] Otheron 02-10-2000 CONVERTED ELECTRONIC SIGNATURE ANA WARE M.D., PATHOLOGIST (Electronic signature on file) Final Signed Out: 02/10/2000 15:38 [facility] CONVERTED FINAL DIAGNOSIS TISSUE FROM RIGHT WRIST, EXCISION - 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 [facility] CONVERTED ORDERING PROVIDER Ordering Provider: [facility] Vital Signs Date Time Vital Sign Value Performing Clinician Facility 06-01-2024 14:23-0400 Body temperature 97.2 [degF] Dr. Richie Heredia DO Work Phone: [facility] 06-01-2024 14:23-0400 Diastolic blood pressure 59 mm[Hg] Dr. Richie Heredia DO Work Phone: [facility] 06-01-2024 14:23-0400 Heart rate 94 /min Dr. Richie Heredia DO Work Phone: [facility] 06-01-2024 14:23-0400 Respiratory rate 26 /min Dr. Richie Heredia DO Work Phone: [facility] 06-01-2024 14:23-0400 SaO2% (BldA) [Mass fraction] 95 % Dr. Richie Heredia DO Work Phone: [facility] 06-01-2024 14:23-0400 Systolic blood pressure 137 mm[Hg] Dr. Richie Heredia DO Work Phone: [facility] 06-01-2024 12:17-0400 Inhaled oxygen flow rate 3 L/min Dr. Richie Heredia DO Work Phone: [facility] 06-01-2024 10:45-0400 Body height 149.[address] Richie Heredia DO Work Phone: [facility] 06-01-2024 10:45-0400 Body mass index (BMI) [Ratio] 49.9 kg/m2 Dr. Richie Heredia DO Work Phone: [facility] 06-01-2024 10:45-0400 Body weight 112.[address] Richie Heredia DO Work Phone: [facility] 03-27-2024 23:26-0500 Heart rate 102 /min FLORENCIA CALLAWAY MD [facility] 03-27-2024 23:26-0500 Respiratory rate 20 /min FLORENCIA CALLAWAY MD [facility] 03-27-2024 22:04-0500 Respiratory rate 18 /min FLORENCIA CALLAWAY MD [facility] 03-27-2024 22:03-0500 Body temperature 98.78 [degF] FLORENCIA CALLAWAY MD [facility] 03-27-2024 22:03-0500 Body weight 99 kg FLORENCIA CALLAWAY MD [facility] 03-27-2024 22:03-0500 Diastolic Blood Pressure Non-Invasive 54 mm[Hg] FLORENCIA CALLAWAY MD [facility] 03-27-2024 22:03-0500 Heart rate 107 /min FLORENCIA CALLAWAY MD [facility] 03-27-2024 22:03-0500 Respiratory rate 20 /min FLORENCIA CALLAWAY MD [facility] 03-27-2024 22:03-0500 Systolic Blood Pressure Non-Invasive 127 mm[Hg] FLORENCIA CALLAWAY MD [facility] 03-10-2024 01:11-0500 Body temperature 98 [degF] Dr. Richie Heredia DO Work Phone: [facility] 03-10-2024 01:11-0500 Diastolic blood pressure 78 mm[Hg] Dr. Richie Heredia DO Work Phone: [facility] 03-10-2024 01:11-0500 Heart rate 97 /min Dr. Richie Heredia DO Work Phone: [facility] 03-10-2024 01:11-0500 Respiratory rate 16 /min Dr. Richie Heredia DO Work Phone: [facility] 03-10-2024 01:11-0500 SaO2% (BldA) [Mass fraction] 99 % Dr. Richie Heredia DO Work Phone: [facility] 03-10-2024 01:11-0500 Systolic blood pressure 132 mm[Hg] Dr. Richie Heredia DO Work Phone: [facility] 03-09-2024 22:06-0500 Body mass index (BMI) [Ratio] 45.5 kg/m2 Dr. Richie Heredia DO Work Phone: [facility] 03-09-2024 22:06-0500 Body weight 102.[address] Richie Heredia DO Work Phone: [facility] 02-21-2024 23:54-0500 Body temperature 97.8 [degF] Dr. Richie Heredia DO Work Phone: [facility] 02-21-2024 23:54-0500 Diastolic blood pressure 82 mm[Hg] Dr. Richie Heredia DO Work Phone: [facility] 02-21-2024 23:54-0500 Heart rate 93 /min Dr. Richie Heredia DO Work Phone: [facility] 02-21-2024 23:54-0500 Respiratory rate 20 /min Dr. Richie Heredia DO Work Phone: [facility] 02-21-2024 23:54-0500 SaO2% (BldA) [Mass fraction] 98 % Dr. Richie Heredia DO Work Phone: [facility] 02-21-2024 23:54-0500 Systolic blood pressure 160 mm[Hg] Dr. Richie Heredia DO Work Phone: [facility] 01-30-2023 14:00-0500 Inhaled oxygen flow rate 2 L/min Dr. Richie Heredia Work Phone: [facility] 01-30-2023 13:55-0500 Body temperature 97.5 [degF] Dr. Richie Heredia Work Phone: [facility] 01-30-2023 13:55-0500 Diastolic blood pressure 72 mm[Hg] Dr. Richie Heredia Work Phone: [facility] 01-30-2023 13:55-0500 Heart rate 80 /min Dr. Richie Heredia Work Phone: [facility] 01-30-2023 13:55-0500 Respiratory rate 16 /min Dr. Richie Heredia Work Phone: [facility] 01-30-2023 13:55-0500 SaO2% (BldA) [Mass fraction] 95 % Dr. Richie Heredia Work Phone: [facility] 01-30-2023 13:55-0500 Systolic blood pressure 126 mm[Hg] Dr. Richie Heredia Work Phone: [facility] 01-30-2023 06:00-0500 Body mass index (BMI) [Ratio] 49.6 kg/m2 Dr. Richie Heredia Work Phone: [facility] 01-30-2023 06:00-0500 Body weight 114.[address] Richie Heredia Work Phone: [facility] 01-30-2023 04:38-0500 Inhaled oxygen concentration 30 % Dr. Richie Heredia Work Phone: [facility] 01-29-2023 13:22-0500 Inhaled oxygen flow rate 2 L/min Dr. Richie Heredia Work Phone: [facility] 01-29-2023 12:55-0500 Heart rate 97 /min Dr. Richie Heredia Work Phone: [facility] 01-29-2023 12:55-0500 Respiratory rate 24 /min Dr. Richie Heredia Work Phone: [facility] 01-29-2023 12:55-0500 SaO2% (BldA) [Mass fraction] 99 % Dr. Richie Heredia Work Phone: [facility] 01-29-2023 09:24-0500 Body temperature 98.3 [degF] Dr. Richie Heredia Work Phone: [facility] 01-29-2023 09:24-0500 Diastolic blood pressure 73 mm[Hg] Dr. Richie Heredia Work Phone: [facility] 01-29-2023 09:24-0500 Systolic blood pressure 151 mm[Hg] Dr. Richie Heredia Work Phone: [facility] 01-29-2023 07:21-0500 Inhaled oxygen concentration 30 % Dr. Richie Heredia Work Phone: [facility] 01-29-2023 05:38-0500 Body mass index (BMI) [Ratio] 49.6 kg/m2 Dr. Richie Heredia Work Phone: [facility] 01-29-2023 05:38-0500 Body weight 114.[address] Richie Heredia Work Phone: [facility] 01-28-2023 13:57-0500 Body height 151.[address] Richie Heredia Work Phone: [facility] 10-20-2022 21:55-0400 Body temperature 97.7 [degF] [facility] 10-20-2022 21:55-0400 Diastolic blood pressure 66 mm[Hg] [facility] 10-20-2022 21:55-0400 Heart rate 101 /min [facility] 10-20-2022 21:55-0400 Respiratory rate 16 /min [facility] 10-20-2022 21:55-0400 SaO2% (BldA) [Mass fraction] 98 % [facility] 10-20-2022 21:55-0400 Systolic blood pressure 114 mm[Hg] [facility] 10-20-2022 21:19-0400 Body mass index (BMI) [Ratio] 51.4 kg/m2 [facility] 10-20-2022 21:19-0400 Body weight 119.5 kg [facility] 10-20-2022 19:23-0400 Body height 152.4 cm [facility] 09-09-2021 13:29-0400 Body height 152.4 cm Mary Thomas PA-C Work Phone: [facility] 09-09-2021 13:29-0400 Body temperature 98.4 [degF] Mary Salcedof PA-C Work Phone: [facility] 09-09-2021 13:29-0400 Body weight 107.96 kg Mary Salcedof PA-C Work Phone: [facility] 09-09-2021 13:29-0400 Diastolic blood pressure 60 mm[Hg] Mary Thomas PA-C Work Phone: [facility] 09-09-2021 13:29-0400 Heart rate 85 /min Mary Salcedof PA-C Work Phone: [facility] 09-09-2021 13:29-0400 SaO2% (BldA) [Mass fraction] 95 % Mary Thomas PA-C Work Phone: [facility] 09-09-2021 13:29-0400 Systolic blood pressure 128 mm[Hg] Mary Salcedof PA-C Work Phone: [facility] 05-23-2021 23:04-0400 Diastolic blood pressure 57 mm[Hg] [facility] Work Phone: 05-23-2021 23:04-0400 Heart rate 68 /min [facility] Work Phone: 05-23-2021 23:04-0400 Respiratory rate 18 /min [facility] Work Phone: 05-23-2021 23:04-0400 SaO2% (BldA) [Mass fraction] 96 % [facility] Work Phone: 05-23-2021 23:04-0400 Systolic blood pressure 135 mm[Hg] [facility] Work Phone: 05-23-2021 20:40-0400 Body height 152.4 cm [facility] Work Phone: 05-23-2021 20:40-0400 Body mass index (BMI) [Ratio] 46.3 kg/m2 [facility] Work Phone: 05-23-2021 20:40-0400 Body temperature 98.1 [degF] [facility] Work Phone: 05-23-2021 20:40-0400 Body weight 107.5 kg [facility] Work Phone: 04-26-2021 14:06-0500 Diastolic blood pressure 74 mm[Hg] [facility] Work Phone: 04-26-2021 14:06-0500 Heart rate 87 /min [facility] Work Phone: 04-26-2021 14:06-0500 Respiratory rate 16 /min [facility] Work Phone: 04-26-2021 14:06-0500 SaO2% (BldA) [Mass fraction] 95 % [facility] Work Phone: 04-26-2021 14:06-0500 Systolic blood pressure 154 mm[Hg] [facility] Work Phone: 04-26-2021 12:00-0500 Body mass index (BMI) [Ratio] 48.2 kg/m2 [facility] Work Phone: 04-26-2021 12:00-0500 Body temperature 97.1 [degF] [facility] Work Phone: 04-26-2021 12:00-0500 Body weight 112.03 kg [facility] Work Phone: 01-20-2021 15:16-0500 Body temperature 99.68 [degF] MAYLIN SOUZA MD [facility] 01-20-2021 15:16-0500 Diastolic blood pressure 72 mm[Hg] MAYLIN SOUZA MD [facility] 01-20-2021 15:16-0500 Heart rate 74 /min MAYLIN SOUZA MD [facility] 01-20-2021 15:16-0500 Respiratory rate 20 /min MAYLIN SOUZA MD [facility] 01-20-2021 15:16-0500 Systolic blood pressure 163 mm[Hg] MAYLIN SOUZA MD [facility] 01-20-2021 14:17-0500 Body temperature 98.42 [degF] MAYLIN SOUZA MD [facility] 01-20-2021 14:17-0500 diastolic 49 mm[Hg] MAYLIN SOUZA MD [facility] 01-20-2021 14:17-0500 Heart rate 75 /min MAYLIN SOUZA MD [facility] 01-20-2021 14:17-0500 Respiratory rate 20 /min MAYLIN SOUZA MD [facility] 01-20-2021 14:17-0500 systolic 132 mm[Hg] MAYLIN SOUZA MD [facility] 01-20-2021 13:47-0500 Body temperature 99.14 [degF] MAYLIN SOUZA MD [facility] 01-20-2021 13:47-0500 diastolic 50 mm[Hg] MAYLIN SOUZA MD [facility] 01-20-2021 13:47-0500 Heart rate 74 /min MAYLIN SOUZA MD [facility] 01-20-2021 13:47-0500 Respiratory rate 20 /min MAYLIN SOUZA MD [facility] 01-20-2021 13:47-0500 systolic 140 mm[Hg] MAYLIN SOUZA MD [facility] 01-15-2021 13:06-0500 Diastolic blood pressure 79 mm[Hg] MAYLIN SOUZA MD [facility] 01-15-2021 13:06-0500 Heart rate 93 /min MAYLIN SOUZA MD [facility] 01-15-2021 13:06-0500 Mean blood pressure 94 mm[Hg] MAYLIN SOUZA MD [facility] 01-15-2021 13:06-0500 Respiratory rate 16 /min MAYLIN SOUZA MD [facility] 01-15-2021 13:06-0500 Systolic blood pressure 125 mm[Hg] MAYLIN SOUZA MD [facility] 01-15-2021 12:00-0500 Body height 152 cm MAYLIN SOUZA MD [facility] 01-15-2021 12:00-0500 Body temperature 98.24 [degF] MAYLIN SOUZA MD [facility] 01-15-2021 12:00-0500 Body weight 112 kg MAYLIN SOUZA MD [facility] 01-15-2021 12:00-0500 Diastolic blood pressure 84 mm[Hg] MAYLIN SOUZA MD [facility] 01-15-2021 12:00-0500 Heart rate 98 /min MAYLIN SOUZA MD [facility] 01-15-2021 12:00-0500 Respiratory rate 18 /min MAYLIN SOUZA MD [facility] 01-15-2021 12:00-0500 Systolic blood pressure 95 mm[Hg] MAYLIN SOUZA MD [facility] Encounters Encounter Date Encounter Type Care Provider Facility Start: 09-01-2024 End: 09-01-2024 ambulatory RICHIE HEREDIA Facility:[facility] Start: 09-01-2024 End: 09-01-2024 Patient encounter procedure RICHIE GIOVANNA DO [facility] Start: 08-07-2024 End: 08-11-2024 ambulatory RICHIE GIOVANNA Facility:[facility] Start: 08-07-2024 End: 08-11-2024 Outreach Lab RICHIE GIOVANNA DO [facility] Start: 06-01-2024 End: 06-01-2024 Emergency department patient visit Dr. Richie Hereida DO Work Phone: -Emergency Department Work Phone: Start: 04-20-2024 End: 04-24-2024 ambulatory RICHIE GIOVANNA Facility:[facility] Start: 04-20-2024 End: 04-24-2024 Outreach Lab RICHIE GIOVANNA DO [facility] Start: 04-13-2024 End: 04-13-2024 ambulatory RICHIE GIOVANNA Facility[facility] Start: 04-13-2024 End: 04-13-2024 Patient encounter procedure RICHIE PARKKO DO [facility] Start: 03-30-2024 End: 04-03-2024 ambulatory RICHIE HALKO Facility:[facility] Start: 03-27-2024 End: 03-27-2024 Emergency department patient visit FLORENCIA CALLAWAY MD [facility] Start: 03-09-2024 End: 03-10-2024 Emergency department patient visit Dr. Hunter Ryan MD -Emergency Department Work Phone: Start: 02-21-2024 End: 02-21-2024 Emergency department patient visit Dr. Juliocesar Bryson-Usama DAVISON -Emergency Department Work Phone: Start: 11-25-2023 End: 11-29-2023 ambulatory RICHIE HALKO Facility:[facility] Start: 11-25-2023 End: 11-29-2023 Outreach Lab RICHIE HALKO DO [facility] Start: 11-25-2023 End: 11-29-2023 ambulatory RICHIE HALKO Facility:[facility] Start: 11-25-2023 End: 11-29-2023 Outreach Lab RICHIE HALKO DO [facility] Start: 11-25-2023 ambulatory Richie Halko Facility: [facility] Start: 09-02-2023 ambulatory Richie Halko Facility: [facility] Start: 08-30-2023 ambulatory RICHIE HALKO DO Facili ty:B Start: 08-30-2023 ambulatory Richie Halko Facility: [facility] Start: 08-27-2023 ambulatory Richie Halko Facility: [facility] Start: 08-26-2023 ambulatory Richie Halko Facility: [facility] Start: 08-26-2023 End: 09-01-2023 Evaluation and management of inpatient Richie Halko Facility:[facility] Start: 08-26-2023 End: 08-26-2023 ambulatory Richie Halko Facility:[facility] Start: 08-25-2023 ambulatory Richie Halko Facility: [facility] Start: 08-12-2023 End: 08-16-2023 ambulatory RICHIE HALKO DO Facility:[facility] Start: 08-12-2023 End: 08-16-2023 Outreach Lab RICHIE HEREDIA DO [facility] Start: 07-26-2023 End: 07-26-2023 Emergency department patient visit Richie Heredia Facility:[facility] Start: 06-18-2023 ambulatory RICHIE HEREDIA DO Facili ty:[facility] Start: 04-20-2023 End: 04-20-[address] Richie Heredia Work Phone: [facility] Work Phone: Start: 04-20-2023 End: 04-20-[address] Richie Heredia Work Phone: [facility] Work Phone: Start: 04-13-2023 End: 04-13-2023 ambulatory RICHIE HEREDIA DO Facility:[facility] Start: 04-13-2023 End: 04-13-2023 Patient encounter procedure RICHIE HEREDIA DO [facility] Start: 03-18-2023 End: 03-22-2023 ambulatory RICHIE HEREDIA DO Facility:[facility] Start: 03-18-2023 End: 03-22-2023 Outreach Lab RICHIE HEREDIA DO [facility] Start: 03-08-2023 End: 05-06-2023 ambulatory RICHIE HEREDIA DO Facility:[facility] Start: 02-02-2023 End: 02-21-2023 ambulatory RICHIE HEREDIA DO Facility:[facility] Start: 01-30-2023 Non-patient / Non-visit Dr. Paige Heredia Work Phone: [facility] Start: 01-30-2023 Non-patient / Non-visit Dr. Paige Heredia Work Phone: [facility] Work Phone: Start: 01-29-2023 Non-patient / Non-visit Dr. Paige Heredia Work Phone: [facility] Work Phone: Start: 01-28-2023 Non-patient / Non-visit Dr. Paige Heredia Work Phone: [facility] Start: 01-28-2023 Non-patient / Non-visit Dr. Paige Heredia Work Phone: [facility] Work Phone: Start: 01-27-2023 Non-patient / Non-visit Dr. Paige Heredia Work Phone: [facility] Start: 01-27-2023 End: 01-30-2023 Evaluation and management of inpatient Dr. Richie Heredia Work Phone: [facility] Work Phone: Start: 01-27-2023 Non-patient / Non-visit Dr. Paige Heredia Work Phone: [facility] Work Phone: Start: 01-25-2023 End: 01-25-[address] Richie Heredia Work Phone: [facility] Work Phone: Start: 01-25-2023 End: 01-25-[address] Richie Heredia Work Phone: [facility] Work Phone: Start: 10-20-2022 End: 10-20-2022 Emergency department patient visit [facility] Work Phone: Start: 10-19-2022 End: 10-19-2022 ambulatory RICHIE HEREDIA DO Facility:[facility] Start: 10-19-2022 End: 10-19-2022 Patient encounter procedure RICHIE HEREDIA DO [facility] Start: 10-15-2022 ambulatory RICHIE Lou ty:[facility] Start: 07-07-2022 End: 07-07-2022 Patient encounter procedure [facility] Work Phone: Start: 04-27-2022 End: 04-27-2022 Patient encounter procedure RICHIE NICKCHATO DAVISON [facility] Start: 04-22-2022 Non-patient / Non-visit Dr. Paige Heredia Work Phone: [facility] Start: 04-22-2022 End: 04-22-[address] Richie Heredia Work Phone: [facility] Work Phone: Start: 04-22-2022 End: 04-22-[address] Richie Heredia Work Phone: [facility] Start: 04-10-2022 End: 04-10-2022 Patient encounter procedure RICHIE PARKCHATO DAVISON [facility] Start: 03-03-2022 End: 03-03-2022 ambulatory [facility] Work Phone: Start: 03-03-2022 End: 03-03-2022 Patient encounter procedure [facility] Start: 11-06-2021 End: 11-06-2021 ambulatory [facility] Work Phone: Start: 11-06-2021 End: 11-06-2021 Patient encounter procedure [facility], [facility] Start: 09-10-2021 Telephone encounter Naye Lu MD Work Phone: General Surgery Comment on above: 10/07 colon/egd lodi Start: 09-09-2021 End: 09-09-2021 ambulatory RICHIE HEREDIA IV Facility:[facility] Start: 09-09-2021 Telephone encounter Mary moreno PA-C Work Phone: General Surgery Comment on above: 09/23 COLON EGD LODI Start: 09-09-2021 End: 09-09-2021 Patient encounter procedure Mary Thomas PA-C Work Phone: General Surgery Comment on above: Encounter for screen ing for malignant neoplasm of colon (Primary Dx); Other dysphagia; History of tobacco use Start: 08-18-2021 End: 08-18-2021 Patient encounter procedure RICHIE HEREDIA DO [facility] Start: 06-03-2021 End: 06-03-2021 Patient encounter procedure RICHIE HEREDIA DO [facility] Start: 05-23-2021 End: 05-23-2021 [facility] Start: 05-08-2021 End: 05-08-2021 Patient encounter procedure RICHIE HEREDIA DO [facility] Start: 04-26-2021 End: 04-26-2021 Emergency department patient visit [facility] Start: 01-20-2021 End: 01-20-2021 Patient encounter procedure MAYLIN SOUZA MD [facility] Start: 01-15-2021 End: 01-15-2021 Emergency department patient visit MAYLIN SOUZA MD [facility] Start: 01-15-2021 End: 01-15-2021 Patient encounter procedure RICHIE HEREDIA DO [facility] Start: 05-17-2000 End: 05-17-2000 Patient encounter procedure Cristopher Thomason Work Phone: [facility] Start: 05-17-2000 Results Only Cristopher blair Work Phone: [facility] Start: 02-09-2000 End: 02-09-2000 Patient encounter procedure Cristopher Thomason Work Phone: [facility] Start: 02-09-2000 Results Only Cristopher blair Work Phone: [facility] Procedures Date Procedure Procedure Detail Performing Clinician Start: 06-01-2024 SARS-CoV-2, Influenz a & RSV (PCR) Dr. Richie Heredia DO Work Phone: Start: 06-01-2024 Plain chest X-ray Dr. Yosvany Heredia DO Work Phone: Start: 03-09-2024 Plain chest X-ray Dr. Yosvany Heredia DO Work Phone: Start: 03-09-2024 SARS-CoV-2, Influenz a & RSV (PCR) Dr. Richie Heredia DO Work Phone: Start: 02-21-2024 X-ray of chest, PA a nd lateral views Dr. Richie Heredia DO Work Phone: Start: 02-21-2024 SARS-CoV-2, Influenz a & RSV (PCR) Dr. Richie Heredia DO Work Phone: Start: 01-29-2023 Giardia Antigen (TWYLA) Ramesh Heredia Work Phone: Start: 01-29-2023 Investigation of transfusion reaction Dr. Richie Heredia Work Phone: Start: 01-29-[address] Richie Heredia Work Phone: Start: 01-29-[address] [address] parasites identification Dr. Richie Heredia Work Phone: Start: 01-29-2023 Respiratory microbia l culture Dr. Richie Heredia Work Phone: Start: 01-27-2023 Bacteria identified in Blood by Culture Dr. Richie Heredia Work Phone: Start: 01-27-[address] Oren Heredia Work Phone: Start: 01-27-2023 CT angiography of ch est with contrast Dr. Richie Heredia Work Phone: Start: 01-27-2023 Plain chest X-ray Dr. Yosvany Heredia Work Phone: Start: 01-27-2023 CT of head without contrast Dr. Richie Heredia Work Phone: Start: 10-20-2022 CT angiography of ch est with contrast Start: 10-20-2022 Lactoferrin measurement Start: 10-20-[address] [address] parasites identification [address] Richie Heredia Work Phone: Start: 04-22-2022 CT of chest without contrast Dr. Richie Heredia Work Phone: Start: 11-06-2021 Plain X-ray of shoulder Start: 05-23-2021 CT of head without contrast Start: 04-26-2021 X-ray of lumbar spin e, two or three views Start: 04-26-2021 Plain X-ray of tibia and fibula Start: 02-13-2013 Specimen from breast obtained by biopsy (specimen) RICHIE HEREDIA DO Comment on above: left Start: 06-03-2010 Knee region structur e (body structure) RICHIE GIOVANNA DO Comment on above: left Start: 01-12-2005 Knee region structur e (body structure) RICHIE GIOVANNA DO Comment on above: left Start: 05-29-2002 Knee region structur e (body structure) RICHIE GIOVANNA DO Comment on above: right Start: 05-17-2000 CONVERTED SURGICAL PATHOLOGY Cristopher Thomason Work Phone: Start: 02-09-2000 CONVERTED SURGICAL PATHOLOGY Cristopher Thomason Work Phone: Start: 09-16-1999 Arthroplasty of knee [place] CAMILLE HEREDIA DO Comment on above: left Start: 07-10-1993 Colonoscopy RICHIE NAVA DO Start: 09-22-1978 Hysterectomy RICHIE NAVA DO Start: 08-22-1977 Appendectomy RICHIE NAVA DO Start: 08-22-1977 Ligation of fallopia n tube RICHIE HEREDIA DO Cardiac catheterization ESEQUIEL AEChastity HEREDIA DO Cholecystectomy RICHIE SOUSA O DO H/O: hysterectomy S/P hysterecto my( Confirmed ) RICHIE HEREDIA DO History of cholecystectomy S/P laparoscopic cholecystectomy( Confirmed ) RICHIE HEREDIA DO Plan of Treatment Date Care Activity Detail Author Start: 06-01-2024 Bacteria identified in Urine by Culture Urine Culture [facility] Start: 06-01-2024 [facility] Start: 03-10-2024 [facility] Start: 03-09-2024 [facility] Start: 02-21-2024 [facility] Start: 02-21-2024 [facility] Start: 04-20-2023 Thiamine measurement [facility] Start: 02-01-2023 Referral to service [facility] Start: 01-30-2023 Patient discharge [facility] Start: 01-30-2023 Blood chemistry [facility] Start: 01-29-2023 Partial thromboplast in time, activated [facility] Start: 01-29-2023 Enteric Bacteriology Enteric Bacteri ology [facility] Start: 01-29-2023 Respiratory Culture Respiratory Cult ure [facility] Start: 01-28-2023 End: 01-29-2023 [facility] Start: 01-28-2023 Care planning and pr oblem solving actions [facility] Start: 01-28-2023 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 [facility] Start: 01-28-2023 Referral to service [facility] Start: 01-27-2023 Care planning and pr oblem solving actions [facility] Start: 01-27-2023 End: 01-27-2023 Following clinical pathway protocol [facility] Start: 01-27-2023 Dual pressure sponta neous ventilation support [facility] Start: 01-27-2023 Bacteria identified in Blood by Culture Blood Culture [facility] Start: 01-27-2023 Urine culture Urine Culture [facility] Start: 01-27-2023 Admission procedure [facility] Start: 01-27-2023 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 to 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 chain vice president [facility] Start: 01-27-2023 Inhalation therapy procedure [facility] Start: 01-27-2023 Oxygen therapy [facility] Start: 01-27-2023 Care regimes management [facility] Start: 01-27-2023 Assessment of risk o f venous thromboembolism [facility] Start: 01-27-2023 Cardiac monitoring [facility] Start: 01-27-2023 Catheterization of vein [facility] Start: 01-27-2023 Continuous pulse oximetry [facility] Start: 01-27-2023 Insertion of cathete r into peripheral vein [facility] Start: 01-27-2023 Measuring intake and output [facility] Start: 01-27-2023 End: 01-27-2023 Notification of physician [facility] Start: 01-27-2023 Providing care accor ding to standard [facility] Start: 01-27-2023 Vital signs measurements [facility] Start: 01-27-2023 End: 01-27-2023 [facility] Start: 01-27-2023 Ambulation without limitation [facility] Start: 01-27-2023 Verification routine [facility] Start: 01-27-2023 Blood culture [facility] Start: 01-27-2023 [facility] Start: 01-27-2023 Patient referral to dietitian [facility] Start: 10-20-2022 Enteric precautions [facility] Start: 10-20-2022 C. difficile DNA Amplification C. difficile DNA Amplification [facility] Start: 10-20-2022 Enteric Bacteriology Enteric Bacteri ology [facility] Start: 11-16-2021 COVID-19 VACCINE (4 - Booster for Moderna series) COVID-19 VACCINE (4 - Booster for Moderna series) [facility] Start: 10-23-2021 Influenza vaccination INFLUENZA (#1) [facility] Start: 02-22-2021 ADVANCE DIRECTIVE DISCUSSION ADVANCE DIRECTIVE DISCUSSION [facility] Start: 10-24-2019 Influenza vaccination INFLUENZA (#1) [facility] Start: 07-23-2016 ADVANCE DIRECTIVE DISCUSSION ADVANCE DIRECTIVE DISCUSSION [facility] Start: 07-23-2016 BONE DENSITY BONE DENSITY [facility] Start: 07-23-2016 PNEUMOVAX AGE 65 AND OVER WITH 5YR LOOKBACK (#1) PNEUMOVAX AGE 65 AND OVER WITH 5YR LOOKBACK (#1) [facility] Start: 07-23-2001 SHINGRIX VACCINE (1 of 2) SON GRIX VACCINE (1 of 2) [facility] Start: 07-23-2001 Tuberculosis screening COLOREC DAVID CANCER SCREENING,SEE MODIFIER [facility] Start: 07-23-1996 COLOGUARD (FIT-DNA) COLOGUARD (FIT-D NA) [facility] Start: 07-23-1996 Colonoscopy COLONOSCOPY [facility] Start: 07-23-1996 COLORECTAL CANCER SCREENING COLORECTAL CANCER SCREENING [facility] Start: 07-23-[address] [facility] Start: 07-23-1996 FECAL OCCULT BLOOD FECAL OCCULT BLOO D [facility] Start: 07-23-1996 SIGMOIDOSCOPY SIGMOIDOSCOPY 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 ANNUAL PCP TEAM CHRONIC DISEASE VISIT [facility] Start: 07-23-1969 Hepatitis B surface antibody level LDL CHOLESTEROL [facility] Start: 07-23-1969 HEPATITIS C SCREENING HEPATITIS C SC REENING [facility] Start: 1963 Adult depression scr eening assessment DEPRESSION SCREENING [facility] Start: 07-23-1961 [object Object] DIABETIC FOOT EXAM C [facility] Start: 07-23-1961 Hepatitis B screening URINE ALBUMIN:CREATININE RATIO [facility] Start: 07-23-1961 Hepatitis C antibody , confirmatory test DILATED RETINAL EXAM [facility] Start: 07-23-1957 PNEUMOCOCCAL: 65+ (1 - PCV) PNEUMOCOCCAL: 65+ (1 - PCV) [facility] Start: 07-23-1956 HbA1c (Bld) [Mass fraction] HBA1C [facility] Anion gap measurement [facility] Bacteria identified in Sputum by Respiratory culture [facility] Bacteria identified in Unspecified specimen by Respiratory culture [facility] BUN/Creatinine ratio [facility] Calcium [Mass/volume ] in Serum or Plasma [facility] Carbon dioxide, tota l [Moles/volume] in Serum or Plasma [facility] Chloride [Moles/volu me] in Serum or Plasma [facility] Clostridioides diffi cile DNA [Presence] in Unspecified specimen by IVAN with probe detection [facility] Creatinine [Moles/vo lume] in Serum or Plasma [facility] End: 09-09-2022 EGD DIAGNOSTIC EGD DIAGNOSTIC Endoscopy Routine Dysphagia, unspecified type History of tobacco use 1 Occurrences starting 09/09/2021 until 09/09/2022 [facility] Work Phone: Comment on above: 1 Occurrences starti ng 09/09/2021 until 09/09/2022 Gastrointestinal pat hogens panel - Stool by IVAN with probe detection [facility] Gastrointestinal pat hogens panel - Stool by IVAN with probe detection [facility] Glucose [Mass/volume ] in Serum or Plasma [facility] Hematocrit [Volume Fraction] of Blood [facility] Hemoglobin [Mass/vol ume] in Blood [facility] Leukocytes [#/volume ] in Blood [facility] Mean corpuscular hemoglobin concentration determination [facility] Mean corpuscular hemoglobin determination [facility] Measurement of renal function [facility] Neutrophil count [facility] Neutrophil percent differential count [facility] Ova and parasites identified in Unspecified specimen by Light microscopy [facility] Ova and parasites identified in Unspecified specimen by Light microscopy [facility] Patient Education [facility] Work Phone: Patient referral [facility] Work Phone: Platelets [#/volume] in Blood [facility] Potassium [Moles/vol ume] in Serum or Plasma [facility] Red blood cell count [facility] Red cell distributio n width determination [facility] End: 09-09-2022 Screening colonoscopy COLONOSCOPY SCREENING Endoscopy Routine Screening for colon cancer 1 Occurrences starting 09/09/2021 until 09/09/2022 [facility] Work Phone: Comment on above: 1 Occurrences starti ng 09/09/2021 until 09/09/2022 Sodium [Moles/volume ] in Serum or Plasma [facility] Urea nitrogen [Mass/volume] in Serum or Plasma [facility] Urine culture [facility] Immunizations Immunization Date Immunization Notes Care Provider Fa cility 12-29-2023 influenza, high dose seasonal, preservative-free; Translations: [Afluria PF Prefilled Syringe ] FLORENCIA CALLAWAY MD [facility] 12-06-2022 pneumococcal 20-destin nt conjugate vaccine RICHIE HEREDIA DO [facility] 12-06-2022 RSV vaccine preF3, recombinant RICHIE HEREDIA DO [facility] 12-06-2022 zoster vaccine recombinant RICHIE HEREDIA DO [facility] 12-03-2022 influenza, injectabl e, quadrivalent, preservative free Dr. Richie Heredia DO Work Phone: [facility] 01-26-2022 influenza, high dose seasonal, preservative-free RICHIE HEREDIA DO [facility] 11-18-2021 COVID-19, mRNA, LNP- S, bivalent booster, PF, 30 mcg/0.3 mL dose; Translations: [[employer] COVID-19 (12y+) Bivalent Booster Vaccine PF] RICHIE HEREDIA DO [facility] [place] Comment on above: Early/Late Reason: E yue/Late Reason: Other: 11-18-2021 SARSCoV2 mRNA(glpkyrlyivg29y+)biv al vac 1; Translations: [Pfizer-BioNTech COVID-19 (12y+) Bivalent Booster Vaccine PF] RICHIE HEREDIA DO [facility] Comment on above: Early/Late Reason: E yue/Late Reason: Other: 07-16-2021 COVID-19, mRNA, LNP- S, PF, 100 mcg or 50 mcg dose; Translations: [Moderna COVID-19 Vaccine] RICHIE HEREDIA DO [facility] 07-11-2021 pneumococcal polysaccharide vaccine, 23 valent; Translations: [Pneumovax 23] RICHIE HEREDIA DO [facility] 12-24-2020 influenza, high dose seasonal, preservative-free; Translations: [Fluad Quadrivalent PF ] RICHIE HEREDIA DO [facility] 09-04-2020 COVID-19, mRNA, LNP- S, PF, 100 mcg/ 0.5 mL dose; Translations: [Moderna COVID-19 Vaccine] RICHIE HEREDIA DO [facility] 08-01-2020 COVID-19, mRNA, LNP- S, PF, 100 mcg/ 0.5 mL dose; Translations: [Moderna COVID-19 Vaccine] RICHIE HEREDIA DO [facility] 11-17-2019 influenza, injectabl e, quadrivalent, preservative free Dr. Richie Heredia Work Phone: [facility] 11-17-2019 influenza, seasonal, injectable [facility] 02-01-2018 influenza virus vacc ine, unspecified formulation RICHIE HEREDIA DO [facility] 11-04-2017 influenza virus vacc ine, unspecified formulation RICHIE HEREDIA DO [facility] 10-08-2017 pneumococcal conjuga te vaccine, 13 valent RICHIE HEREDIA DO [facility] 01-29-2015 influenza virus vacc ine, unspecified formulation RICHIE HEREDIA DO [facility] 03-15-2014 influenza virus vacc ine, unspecified formulation RICHIE HEREDIA DO [facility] 03-15-2014 influenza, injectabl e, quadrivalent, preservative free Dr. Richie Heredia Work Phone: [facility] 03-15-2014 influenza, seasonal, injectable [facility] 01-21-2013 influenza virus vacc ine, unspecified formulation RICHIE HEREDIA DO [facility] Payers Date Payer Category Payer Unknown [id number] 2023 Private Health Insurance [id number] 2023 Private Health Insurance [id number] 2023 Self-pay [id number] 2023 Private Health Insurance [id number] 2023 Unknown [id number] 2023 Medicaid [id number] 2022 Medicaid [id number] 2021 Medicare UHC MEDICARE UHC DUAL COMPLETE HMO SNP [id number] 2021-Present [phone] [address] [place] [address] Medicare [id number] 2021 Medicare UHC MEDICARE UHC DUAL COMPLETE HMO SNP [id number] 2021-Present [phone] [address] [place] [address] Medicare [id number] 2021 Unknown [id number] 2021 Unknown [id number] 2013 Medicare [id number] 1992 Unknown [facility] PREF [facility]ED [facility] [id number] 1992-2012 PPO [id number]. [id number] 1950 Unknown [id number] 840.1.454034.3.579.2. 1950 Unknown [id number] .840.1.568185.3.579.2. 1950 Unknown [id number] .840.1.006221.3.579.2. 62 1950 Unknown [id number] .0.1.487251.3.579.2. 1950 Unknown [id number] 2.16.840.1.467850.3.579.2. 627 1950 Unknown [id number] 2.16.840.1.465535.3.579.2. 1950 Unknown [id number] 2.16.840.1.491384.3.579.2. 1950 Unknown [id number] 2.16.840.1.233653.3.579.2. 1950 Unknown [id number] 2.16.840.1.944648.3.579.2. 1950 Unknown [id number] 2.16.840.1.231159.3.579.2. 1950 Unknown [id number] 2.16.840.1.354705.3.579.2. 1950 Unknown [id number] 2.16.840.1.497958.3.579.2. 1950 Unknown [id number] 2.16.840.1.225836.3.579.2. 1950 Unknown [id number] 2.16.840.1.159409.3.579.2. 1950 Unknown [id number] 2.16.840.1.464828.3.579.2. 627 Unknown [id number] Unknown [id number] 2.16.840.1.027982.3.579.2. 462 Unknown [id number] 2.16.840.1.455783.3.579.2. 462 Unknown [id number] 2.16.840.1.231621.3.579.2. 462 Unknown [id number] 2.16.840.1.460324.3.579.2. 462 Unknown [id number] 2.16.840.1.590911.3.579.2. 462 Unknown [id number] 2.16.840.1.670435.3.579.2. 462 Unknown [id number] 2.16.840.1.754863.3.579.2. 462 Unknown [id number] 2.16.840.1.927562.3.579.2. 462 Unknown [id number] 2.16.840.1.684691.3.579.2. 462 Unknown [id number] 2.16.840.1.165979.3.579.2. 462 Unknown [id number] 2.16.840.1.897402.3.579.2. 462 Unknown [id number] 2.16.840.1.467237.3.579.2. 462 Unknown [id number] 2.16.840.1.289450.3.579.2. 462 Unknown [id number] 2.16.840.1.053229.3.579.2. 462 Unknown [id number] 2.16.840.1.733843.3.579.2. 462 Unknown [id number] 2.16.840.1.927847.3.579.2. 462 Unknown [id number] 2.16.840.1.598153.3.579.2. 462 Social History Date Type Detail Facility Tobacco smoking status NHIS Unknown if ever smoked [facility] Start: 1950 Sex Assigned At Not on file [facility] Start: 02-06-2020 Heavy tobacco smoker (finding) [facility] Sex Assigned At [facility] Start: 05-23-2021 End: 01-29-2023 Tobacco smoking status NHIS Unknown if ever smoked [facility] Start: 07-16-2019 None [facility] Start: 07-16-2019 With Family;[facility] Start: 11-16-2019 Cigarettes [facility] Start: 1950 Sex Assigned At Female [facility] Start: 09-09-2021 Tobacco smoking status NHIS Smokes tobacco daily [facility] Start: 09-09-2021 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) [facility] Start: 08-30-2021 End: 09-09-2021 Exposure to SARS-CoV-2 (event) Not sure [facility] Start: 09-09-2021 Tobacco use and exposure Smokeless tobacco non-user [facility] Start: 08-31-2022 End: 08-07-2024 Tobacco smoking status Light tobacco smoker (finding) [facility] Start: 06-10-2023 End: 06-01-2024 Tobacco smoking status Ex-smoker (finding) [facility] Start: 05-01-2014 End: 06-01-2024 Sex Female (finding) [facility] Medical Equipment Procedure Code Equipment Code Equipment Original Text Equipment Identifier Dates Total cholecystectomy with exploration of common bile duct CLIP,HEMOLOSTEVEN GUEVARA WESTEVEN FDA Start: 11-16-2019 Total cholecystectomy with exploration of common bile duct CLIP,HEMOLOSTEVEN GUEVARA WESTEVEN FDA Start: 11-16-2019 Total cholecystectomy with exploration of common bile duct CLIP,HEMYOGI GUEVARA WESTEVEN FDA Start: 11-16-2019 Total cholecystectomy with exploration of common bile duct CLIP,HEMOLOSTEVEN GUEVARA WESTEVEN FDA Start: 11-16-2019 Total cholecystectomy with exploration of common bile duct CLIP,HEMYOGI GUEVARA WESTEVEN FDA Start: 11-16-2019 Total cholecystectomy with exploration of common bile duct CLIP,HEMOLOSTEVEN GUEVARA WESTEVEN FDA Start: 11-16-2019 Total cholecystectomy with exploration of common bile duct CLIP,HEMOLOCK MED WESTEVEN FDA Start: 11-16-2019 Total cholecystectomy with exploration of common bile duct CLIP,HEMOLOSTEVNE GUEVARA WESTEVEN FDA Start: 11-16-2019 Total cholecystectomy with exploration of common bile duct CLIP,HEMOLOSTEVEN GUEVARA WESTEVEN FDA Start: 11-16-2019 Total cholecystectomy with exploration of common bile duct CLIP,HEMOLOSTEVEN GUEVARA WESTEVEN FDA Start: 11-16-2019 Total cholecystectomy with exploration of common bile duct CLIP,HEMOLOSTEVEN GUEVARA WESTEVEN FDA Start: 11-16-2019 Total cholecystectomy with exploration of common bile duct CLIP,HEMOLOCodeoscopic SAUNDRA FDA Start: 11-16-2019 Total cholecystectomy with exploration of common bile duct CLIP,HEMYOGI [employer]ationsSTEVEN FDA Start: 11-16-2019 Total cholecystectomy with exploration of common bile duct CLIP,HEMYOGI copygram SAUNDRA FDA Start: 11-16-2019 Total cholecystectomy with exploration of common bile duct CLIP,HEMYOGI copygram SAUNDRA FDA Start: 11-16-2019 Total cholecystectomy with exploration of common bile duct CLIP,AccuRevYOGI copygram SAUNDRA FDA Start: 11-16-2019 Total cholecystectomy with exploration of common bile duct CLIP,AccuRevBIANCAYield SoftwareSTEVEN FDA Start: 11-16-2019 Total cholecystectomy with exploration of common bile duct CLIP,AccuRevBIANCAYield SoftwareSTEVEN FDA Start: 11-16-2019 NOVOFINE 32G NEEDLES Start: 10-25-2018 NOVOFINE 32G NEEDLES Start: 10-25-2018 NOVOFINE 32G NEEDLES Start: 10-25-2018 NOVOFINE 32G NEEDLES Start: 10-25-2018 NOVOFINE 32G NEEDLES, one daily, 0 Refill(s) Start: 10-25-2018 See Instructions , dispense #60 Novofine 32 G pen needles; 11 refills; dx E11.9, # 60 EA, 11 Refill(s), Pharmacy: [facility]/pharmacy #[id number], 153.5, cm, 04/17/19 16:11:00 EST, Height, 136.1, kg, 04/17/19 16:11:00 EST, Dosing Weight Start: 05-10-2019 See Instructions , dispense #60 Novofine 32 G pen needles; 11 refills; dx E11.9, # 60 EA, 11 Refill(s), Pharmacy: [facility]/pharmacy #[id number], 153.5, cm, 04/17/19 16:11:00 EST, Height, 136.1, kg, 04/17/19 16:11:00 EST, Dosing Weight Start: 05-10-2019 See Instructions , dispense #60 Novofine 32 G pen needles; 11 refills; dx E11.9, # 60 EA, 11 Refill(s), Pharmacy: [facility]/pharmacy #[id number], 153.5, cm, 04/17/19 16:11:00 EST, Height, 136.1, kg, 04/17/19 16:11:00 EST, Dosing Weight Start: 05-10-2019 See Instructions , dispense #60 Novofine 32 G pen needles; 11 refills; dx E11.9, # 60 EA, 11 Refill(s), [id number], 153.5, cm, 04/17/19 16:11:00 EST, Height, 136.1, kg, 04/17/19 16:11:00 EST, Dosing Weight Start: 05-10-2019 See Instructions , dispense #60 Novofine 32 G pen needles; 11 refills; dx E11.9, # 60 EA, 11 Refill(s), [id number], 153.5, cm, 04/17/19 16:11:00 EST, Height, 136.1, kg, 04/17/19 16:11:00 EST, Dosing Weight Start: 05-10-2019 See Instructions , dispense #60 Novofine 32 G pen needles; 11 refills; dx E11.9, # 60 EA, 11 Refill(s), [id number], 153.5, cm, 04/17/19 16:11:00 EST, Height, 136.1, kg, 04/17/19 16:11:00 EST, Dosing Weight Start: 05-10-2019 See Instructions , dispense #60 Novofine 32 G pen needles; 11 refills; dx E11.9, # 60 EA, 11 Refill(s), [id number], 153.5, cm, 04/17/19 16:11:00 EST, Height, 136.1, kg, 04/17/19 16:11:00 EST, Dosing Weight Start: 05-10-2019 See Instructions , dispense #60 Novofine 32 G pen needles; 11 refills; dx E11.9, # 60 EA, 11 Refill(s), [id number], 153.5, cm, 04/17/19 16:11:00 EST, Height, 136.1, kg, 04/17/19 16:11:00 EST, Dosing Weight Start: 05-10-2019 See Instructions , dispense #60 Novofine 32 G pen needles; 11 refills; dx E11.9, # 60 EA, 11 Refill(s), [id number], 153.5, cm, 04/17/19 16:11:00 EST, Height, 136.1, kg, 04/17/19 16:11:00 EST, Dosing Weight Start: 05-10-2019 See Instructions , dispense #60 Novofine 32 G pen needles; 11 refills; dx E11.9, # 60 EA, 11 Refill(s), [id number], 153.5, cm, 04/17/19 16:11:00 EST, Height, 136.1, kg, 04/17/19 16:11:00 EST, Dosing Weight Start: 05-10-2019 See Instructions , dispense #60 Novofine 32 G pen needles; 11 refills; dx E11.9, # 60 EA, 11 Refill(s), [id number], 153.5, cm, 04/17/19 16:11:00 EST, Height, 136.1, kg, 04/17/19 16:11:00 EST, Dosing Weight Start: 05-10-2019 See Instructions , dispense #60 Novofine 32 G pen needles; 11 refills; dx E11.9, # 60 EA, 11 Refill(s), Pharmacy: [facility] #[id number], 153.5, cm, 04/17/19 16:11:00 EST, Height, 136.1, kg, 04/17/19 16:11:00 EST, Dosing Weight Start: 05-10-2019 See Instructions , dispense #60 Novofine 32 G pen needles; 11 refills; dx E11.9, # 60 EA, 11 Refill(s), Pharmacy: [facility] #[id number], 153.5, cm, 04/17/19 16:11:00 EST, Height, 136.1, kg, 04/17/19 16:11:00 EST, Dosing Weight Start: 05-10-2019 Goals Date Patient Goal Desired Activity /State Functional Status Date Assessment Result Facility 03-27-2024 Functional Status Awake [facility] [place] 03-27-2024 Functional Status Juliet fraser [facility] 01-30-2023 Functional status Bathroom Privilege [facility] Work Phone: 01-29-2023 Functional status Chair [facility] Work Phone: Mental Status Date Assessment Result Facility 06-01-2024 Cognitive function Level Of Cons ciousness Awake;Alert;Appropriate;Follow s Commands [facility] Work Phone: 03-27-2024 Mental Status Orientation Oriented x 4 [facility] 03-27-2024 Mental Status [facility] 01-30-2023 Cognitive function Voice/Name [facility] Work Phone: 01-29-2023 Cognitive function Voice/Name [facility] Work Phone: 10-20-2022 Cognitive function Level Of Cons ciousness Awake;Alert;Appropriate;Follow s Commands [facility] Work Phone: 05-23-2021 Cognitive function Voice/Name [facility] Work Phone: Clinical Notes 01-15-2021 to 08-10-2024 Note Date & Type Note Facility 08-10-2024 Note . MICRO - Microbiology PROCEDURE: Urine Culture [*1] SOURCE: Urine, Clean Catch BODY SITE: COLLECTED DATE/TIME: 08/07/2024 16:07 EDT RECEIVED DATE/TIME: 08/08/2024 17:17 EDT START DATE/TIME: 08/08/2024 17:17 EDT FREE TEXT SOURCE: FINAL REPORTS Final Report [] Verified Date/Time/Personnel: 08/10/2024 08:02 EDT >100,000 cfu/ml Escherichia coli PRELIMINARY REPORTS Preliminary Report [] Verified Date/Time/Personnel: 08/09/2024 13:20 EDT >100,000 cfu/ml Escherichia coli TWYLA to follow Preliminary Report [] Verified Date/Time/Personnel: 08/08/2024 17:59 EDT Specimen received in lab. SUSCEPTIBILITY RESULTS Escherichia coli Antibiotic TWYLA Dilut TWYLA Inter Ampicillin >16 Resistant Ampicillin/ 8/4 Susceptible Sulbactam Aztreonam <=4 Susceptible Cefazolin <=2 Susceptible Cefepime <=2 Susceptible Ceftolozane/ <=2 Susceptible Tazobactam Ciprofloxacin <=0.25 Susceptible Ertapenem <=0.5 Susceptible Gentamicin <=2 Susceptible ID Panel Not Not Applicable Applicable Imipenem <=1 Susceptible Levofloxacin <=0.5 Susceptible Meropenem <=1 Susceptible Minocycline 8 Intermediate Nitrofurantoin 64 Intermediate Piperacillin/ <=8 Susceptible Tazobactam Trimethoprim/ >2/38 Resistant Sulfa Performing Locations *1: This test was performed at: [facility], [address] [place] [address], [address] , [facility] 06-01-2024 Radiology Diagnostic study note [facility] Imaging Services [address] [place] [id number] Chest 1 View (Portable) MR#: [id number] Acct: [id number] Name: DAVID [address]RE[address] Rep #: [id number] : 1950 F 73 From: Jacklyn Jackson MD PCP: Dr. Richie Heredia DO Status: REG ER Study:Chest 1 View (Portable) Date of Exam: 06/01/24 Exam# [id number] Ordering Dr: Ramesh Ryan DO EXAM: XR Chest, 1 View CLINICAL INDICATION: WEAKNESS TECHNIQUE: Frontal view of the chest. COMPARISON: No relevant prior studies available. FINDINGS: LUNGS AND PLEURAL SPACES: Unremarkable. No consolidation. No pneumothorax. HEART: Unremarkable. No cardiomegaly. MEDIASTINUM: Unremarkable. Normal mediastinal contour. BONES/JOINTS: Unremarkable. No acute fracture. RAD/Chest 1 View (Portable) IMPRESSION: No acute cardiopulmonary process. Reading Location: [facility] CC: Dr. Darius Ryan DO; Dr. 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 MICRO - Microbiology PROCEDURE: Urine Culture [O1 *1] SOURCE: Urine BODY SITE: COLLECTED DATE/TIME: 04/20/2024 15:32 EST RECEIVED DATE/TIME: 04/21/2024 13:48 EST START DATE/TIME: 04/21/2024 13:48 EST FREE TEXT SOURCE: FINAL REPORTS Final Report [] Verified Date/Time/Personnel: 04/22/2024 14:09 EST >100,000 cfu/ml Multiple bacterial morphotypes present. Probable Contamination. Suggest recollection if clinically indicated. PRELIMINARY REPORTS Preliminary Report [] Verified Date/Time/Personnel: 04/21/2024 14:59 EST Specimen received in lab. Order Comments O1: Urine Culture Added by Discern Performing Locations *1: This test was performed at: [facility], [address] [place] [address], [id number] 03-28-2024 Hospital Discharge instructions Patient Education 03/27/2024 22:53:55 Urinary Tract Infections in Women Urinary Tract Infections in Women Urinary tract infections (UTIs) are most often caused by bacteria. These bacteria enter the urinary tract. The bacteria may come from outside the body. Or they may travel from the skin outside the rectum or vagina into the urethra. Female anatomy makes it easy for bacteria from the bowel to enter a woman s urinary tract, which is the most common source of UTI. This means women develop UTIs more often than men. Pain in or around the urinary tract is a common UTI symptom. But the only way to know for sure if you have a UTI for the healthcare provider to test your urine. The two tests that may be done are the urinalysis and urine culture. Types of UTIs Cystitis. A bladder infection (cystitis) is the most common UTI in women. You may have urgent or frequent urination. You may also have pain, burning when you urinate, and bloody urine. Urethritis. This is an inflamed urethra, which is the tube that carries urine from the bladder to outside the body. You may have lower stomach or back pain. You may also have urgent or frequent urination. Pyelonephritis. This is a kidney infection. If not treated, it can be serious and damage your kidneys. In severe cases, you may need to stay in the hospital. You may have a fever and lower back pain. Medicines to treat a UTI Most UTIs are treated with antibiotics. These kill the bacteria. The length of time you need to take them depends on the type of infection. It may be as short as 3 days. If you have repeated UTIs, you may need a low-dose antibiotic for several months. Take antibiotics exactly as directed. Don t stop taking them until all of the medicine is gone. If you stop taking the antibiotic too soon, the infection may not go away. You may also develop a resistance to the antibiotic. This can make it much harder to treat. Lifestyle changes to treat and prevent UTIs The lifestyle changes below will help get rid of your UTI. They may also help prevent future UTIs. Drink plenty of fluids. This includes water, juice, or other caffeine-free drinks. Fluids help flush bacteria out of your body. Empty your bladder. Always empty your bladder when you feel the urge to urinate. And always urinate before going to sleep. Urine that stays in your bladder can lead to infection. Try to urinate before and after sex as well. Practice good personal hygiene. Wipe yourself from front to back after using the toilet. This helps keep bacteria from getting into the urethra. Use condoms during sex. These help prevent UTIs caused by sexually transmitted bacteria. Also don't use spermicides during sex. These can increase the risk for UTIs. Choose other forms of control instead. For women who tend to get UTIs after sex, a low-dose of a preventive antibiotic may be used. Be sure to discuss this option with your healthcare provider. Follow up with your healthcare provider as directed. He or she may test to make sure the infection has cleared. If needed, more treatment may be started. 9015-4603 [employer] [address] [place] [address]. All rights reserved. This information is not intended as a substitute for professional medical care. Always follow your healthcare professional's instructions. Follow Up Care 03/27/2024 22:02:03 With:RICHIE HEREDIA Address: [address] [facility] [place] [address]- [phone] Business (1) When:3-5 days Comments:Schedule appointment for follow-up if symptoms are not improving.Push fluids.Use Tylenol or Advil for fever and discomfort as needed.Use Pyridium as prescribed to help with the urinary discomfort and antibiotic (Macrobid) to treat the urinary tract infection.Return to the ED if symptoms worsen. [facility] 03-27-2024 Emergency department Discharge summary Discharge Instructions Thank you for allowing [facility] to assist you with your healthcare needs. The following is important discharge information regarding your hospital visit. What to Do Next Instructions from Your Care Team No qualifying data available. Post Acute Orders No qualifying data available. You Need to Schedule the Following Appointments Follow Up with RICHIE HEREDIA When:Within 3-5 days Where:[address] [place] [address]- [phone] Business (1) Additional Information: Schedule appointment for follow-up if symptoms are not improving. Push fluids. Use Tylenol or Advil for fever and discomfort as needed. Use Pyridium as prescribed to help with the urinary discomfort and antibiotic (Macrobid) to treat the urinary tract infection. Return to the ED if symptoms worsen. Allergies cilostazol (Moderate) dizziness, peripheral edema Darvon Unknown Demerol Burning ampicillin Unknown penicillin Unknown Medications Please ask your primary doctor or pharmacist before taking any other medication not listed, including over the counter drugs, herbal medications, vitamins and or supplements as they may interact with your home medications. What How Much When Why Instructions Last Dose New nitrofurantoin (Macrobid 100 mg oral capsule) 1 cap by mouth Two (2) times a day Duration: 7 Days Take with food Printed Prescription New phenazopyridine (Pyridium 200 mg oral tablet) 1 tab(s) by mouth Three (3) times a day as needed for as needed for urinary discomfort Duration: 2 Days Printed Prescription Unchanged acetaminophen (acetaminophen 500 mg oral tablet) 1 tab(s) by mouth Every 8 hours as needed for as needed for pain Duration: 90 Days Unchanged acetaminophen-oxyCODONE (acetaminophen-oxyCODONE 325 mg-5 mg oral tablet) 1 tab(s) by mouth Every 6 hours Low back pain with sciatica Inflammatory polyarthropathy Duration: 30 Days new frequency, discontinue percocet rx at q8h dosing on file fill on or after 2023 Unchanged albuterol (albuterol MDI (90 mcg/ inh) CFC free inhalation aerosol) 2 puff(s) by inhalation Every 4 hours Wheezing Duration: 90 Days Unchanged albuterol (albuterol 0.63 mg/ 3 mL (0.021%) inhalation solution) 3 Milliliter Nebulized inhalation Four (4) times a day Duration: 30 Days Unchanged apixaban (Eliquis 5 mg oral tablet) 1 tab(s) by mouth Two (2) times a day dx I48.91 Unchanged aspirin (aspirin 81 mg oral delayed release tablet) 1 tab(s) by mouth Every day Unchanged bumetanide (bumetanide 1 mg oral tablet) 1 tab(s) by mouth Two (2) times a day Duration: 90 Days Unchanged calcium-vitamin D (calcium (as carbonate)-vitamin D 600 mg-10 mcg (400 intl units) oral tablet) 1 tab(s) by mouth Two (2) times a day Duration: 90 Days Unchanged chlorhexidine topical (chlorhexidine 4% topical soap) 1 Bottle(s) Topical Every day Open wound of arm Open wound of chest wall Duration: 7 Days Daily bathing x 7 days Unchanged cholecalciferol (cholecalciferol 125 mcg (5000 intl units) oral capsule) 1 cap by mouth Once a day Duration: 90 Days Unchanged cyanocobalamin (cyanocobalamin 500 mcg sublingual tablet) 1 tab(s) under the tongue Once a day Unchanged DME (DME MISCellaneous) See instructions DDD (degenerative disc disease), lumbar COPD with hypoxia dx: M51.36, J44.9, R09.02 dispense one hosptial bed and pressure relief mattress Unchanged DME (DME MISCellaneous) See instructions dispense one lift chair with massage capabilities; dx M54.4, M79.7, G89.4. Unchanged DME (DME MISCellaneous) See instructions Stress fracture dispense one pair of crutches; dx M84.30XA Unchanged DME (DME MISCellaneous) See instructions Debility Unsteady gait dx J44.9, R53.81, R26.81; dispense one power scooter Unchanged DME (DME MISCellaneous) See instructions COPD with emphysema full breathing mask and tubing for nebulizer; dx J43.9 Unchanged DME (DME MISCellaneous) See instructions dispense one flutter valve; dx J44.1. Unchanged DME (DME MISCellaneous) See instructions dx: M79.89; dispense 2 pair 20-30 mmHg knee high compresssion stockings Unchanged DME (DME MISCellaneous) See instructions DDD (degenerative disc disease), lumbar Diabetic neuropathy dispense one motorized scooter dx: G25.71, M51.36, E11.49 Unchanged DME (DME MISCellaneous) See instructions Type 2 diabetes mellitus Accucheck 1 box of 100 testing 2 times daily; dx E11.42 Unchanged DME (DME MISCellaneous) See instructions . Unchanged DME (DME MISCellaneous) See instructions Debility dispense one shower chair; dx R53.81 Unchanged DME (DME MISCellaneous) See instructions dispense one lift massaging reclining chair. dx M54.4, M79.7, G89.4 Unchanged DME (DME MISCellaneous) See instructions COPD with emphysema dx J43.9, J46.11, M51.36 dispense one wheeled walker with seat Unchanged DME (Pen needles) See instructions dispense #60 Novofine 32 G pen needles; 11 refills; dx E11.9 Unchanged empagliflozin (Jardiance 25 mg oral tablet) 1 tab(s) by mouth Once a day (in the morning) Unchanged fluticasone/ umeclidinium/ vilanterol (Trelegy Ellipta 100 mcg-62.5 mcg-25 mcg/ inh inhalation powder) 1 puff(s) by inhalation Once a day Duration: 90 Days Unchanged gabapentin (gabapentin 400 mg oral capsule) 1 cap by mouth Two (2) times a day Low back pain with sciatica Duration: 30 Days fill on or after 2023 Unchanged insulin glargine (Lantus Solostar Pen 100 units/ mL 3 mL Pen) 50 unit(s) Subcutaneous Two (2) times a day Duration: 90 Days holding at this time Unchanged levothyroxine (levothyroxine 75 mcg (0.075 mg) oral tablet) 1 tab(s) by mouth Once a day new dose Take first thing in am on an empty stomach with plenty of water; wait 30 minutes before ingesting anything other than water Unchanged meloxicam (meloxicam 7.5 mg oral tablet) 1 tab(s) by mouth Once a day Unchanged metFORMIN (MetFORMIN (Eqv-Glucophage XR) 500 mg oral tablet, EXTENDED RELEASE) 1 tab(s) by mouth Once a day Duration: 90 Days Unchanged metoprolol (Metoprolol Succinate ER 50 mg oral TABLET extended release) 1 tab(s) by mouth Once a day new dose Unchanged Misc Medication (ACCU-CHEK MAURISIO PLUS TEST STRP) See instructions one daily Unchanged nystatin topical (nystatin 100,000 units/ g topical powder) 1 application Topical Two (2) times a day Unchanged pravastatin (pravastatin 40 mg oral tablet) 1 tab(s) by mouth Daily at bedtime Duration: 90 Days Unchanged predniSONE (Deltasone 20mg tab (TAPER)) 3 tab(s) by mouth Once a day Unchanged rOPINIRole (rOPINIRole 0.5 mg oral tablet) 2 tab(s) by mouth Two (2) times a day Duration: 90 Days Unchanged venlafaxine (venlafaxine 225 mg oral tablet, extended release) 1 tab(s) by mouth Once a day new rx Please take this list to your next doctor s visit. Bring all medications you take, including over the counter medications, herbals and other supplements with you to your doctor s visit. Patients and families are reminded to discard old lists and to update any records with all medication providers or retail pharmacies. Education Materials Urinary Tract Infections in Women Urinary tract infections (UTIs) are most often caused by bacteria. These bacteria enter the urinary tract. The bacteria may come from outside the body. Or they may travel from the skin outside the rectum or vagina into the urethra. Female anatomy makes it easy for bacteria from the bowel to enter a woman s urinary tract, which is the most common source of UTI. This means women develop UTIs more often than men. Pain in or around the urinary tract is a common UTI symptom. But the only way to know for sure if you have a UTI for the healthcare provider to test your urine. The two tests that may be done are the urinalysis and urine culture. Types of UTIs Cystitis. A bladder infection (cystitis) is the most common UTI in women. You may have urgent or frequent urination. You may also have pain, burning when you urinate, and bloody urine. Urethritis. This is an inflamed urethra, which is the tube that carries urine from the bladder to outside the body. You may have lower stomach or back pain. You may also have urgent or frequent urination. Pyelonephritis. This is a kidney infection. If not treated, it can be serious and damage your kidneys. In severe cases, you may need to stay in the hospital. You may have a fever and lower back pain. Medicines to treat a UTI Most UTIs are treated with antibiotics. These kill the bacteria. The length of time you need to take them depends on the type of infection. It may be as short as 3 days. If you have repeated UTIs, you may need a low-dose antibiotic for several months. Take antibiotics exactly as directed. Don t stop taking them until all of the medicine is gone. If you stop taking the antibiotic too soon, the infection may not go away. You may also develop a resistance to the antibiotic. This can make it much harder to treat. Lifestyle changes to treat and prevent UTIs The lifestyle changes below will help get rid of your UTI. They may also help prevent future UTIs. Drink plenty of fluids. This includes water, juice, or other caffeine-free drinks. Fluids help flush bacteria out of your body. Empty your bladder. Always empty your bladder when you feel the urge to urinate. And always urinate before going to sleep. Urine that stays in your bladder can lead to infection. Try to urinate before and after sex as well. Practice good personal hygiene. Wipe yourself from front to back after using the toilet. This helps keep bacteria from getting into the urethra. Use condoms during sex. These help prevent UTIs caused by sexually transmitted bacteria. Also don't use spermicides during sex. These can increase the risk for UTIs. Choose other forms of control instead. For women who tend to get UTIs after sex, a low-dose of a preventive antibiotic may be used. Be sure to discuss this option with your healthcare provider. Follow up with your healthcare provider as directed. He or she may test to make sure the infection has cleared. If needed, more treatment may be started. 5662-0960 [employer]. [address] [place] [address], [place] [address]. All rights reserved. This information is not intended as a substitute for professional medical care. Always follow your healthcare professional's instructions. Additional Information VACCINATE! IT SAVES LIVES! Members of the community who have not yet received the COVID-19 vaccine and would like to receive it can visit one of [facility] vaccine clinics. There are many vaccine clinic locations within the [facility]. For locations and available times, please visit [email or web address] It is important to note that some COVID mobile vaccine clinics are held outdoors and may be canceled in rainy or stormy conditions. To learn more about pediatric vaccinations (ages 5-11), we invite you to visit the [facility] webpage. [email or web address]/p [email or web address]-Lfkjn-[email or web address]-Freq dbqvcz-[email or web address]-[email or web address] To learn more about the COVID-19 vaccine, we invite you to visit the CDC website for a list of frequently asked questions. https://www.cdc.gov/coronavirus/ 2019-ncov/vaccines/faq.html [facility] Patient Portal Access Instructions: Stay connected with your healthcare team and access your personal medical information anytime with the [facility] Patient Portal. If you would like a full copy of your medical records please contact the [facility] Medical Records Department Wednesday through Wednesday between 8a.m. and 4:30p.m. Please follow the directions below to access the portal: 1.Access the email account you provided upon registration to the hospital.2.Look for an invitation email from [facility].3.Open the email and access the invitation link: Accept Invitation to [facility].Fill in the required schmidt to create your account. Sign into [email or web address] with your username and password that you created in the above steps to stay up to date. You can then view a summary of results, a summary of your visits, and the ability to download your summaries to your computer or send the information securely to a physician. Remember that your healthcare information is confidential, so carefully consider who you will allow to register on the [facility] Patient Portal for access to your information. You can also access the [facility] Patient Portal on the Z[employer]. Simply click on "Health Records" under "Health Data" and then click on the [employer] logo. HOW TO SAFELY DISPOSE OF PRESCRIPTION MEDICATIONS Please use one of the following methods to safely dispose of your unused medications. 1.Use a drug disposal kit: the drug disposal pouch allows you to safely discard your old and unused drugs. Ask your nurse to give you one when you are discharged.2.Visit a local take-back location: Many local pharmacies and police departments have programs that collect old and unwanted prescription drugs. Call your local pharmacy or go to http://JellyCloud.Cytomedix/0C6Mn5n to find one close to you.3.Make use of household items: Use cat litter or old coffee grounds to dispose medications if other options are not available. Mix your drugs with these household products, seal them in an airtight container and throw it into the garbage. Call [facility]: [phone] to be sure your drugs can be disposed of in this way. Some medicines may require a different approach.4.Never flush your medications down the toilet. IF YOU HAVE BEEN PRESCRIBED AN OPIOIDS FOR PAIN If you have been prescribed an opioid (such as hydrocodone, oxycodone or morphine), it is critical to understand the possible side effects and risks of opioid pain medications. Even when taken as directed, opioids can have several side effects including: Tolerance, meaning you might need to take more of a medication for the same pain relief. Nausea, vomiting and/or constipation. Sleepiness, dizziness, dry mouth, confusion, depression or itching. Physical dependence, meaning you have withdrawal symptoms when a medication is stopped ? this can develop within a few days. KNOW YOUR RESPONSIBILITIES It is important to know exactly how much and how often to take the opioid pain medications you are prescribed. Never take opioids in higher amounts or more often than prescribed. Do not combine opioids with alcohol or other drugs that cause drowsiness, such as benzodiazepines, also known as benzos, including diazepam and alprazolam, muscle relaxants or sleep aids. Never sell or share prescription opioids. This is illegal. Store opioids in a secure place and out of reach of others (including children, family, friends and visitors). The last page(s) of this document has been signed and retained as a CHART COPY Signatures Patient Education Materials Urinary Tract Infections in Women Medication Leaflets My discharge plan and instructions have been reviewed and explained to me and IYENIFER LYNDA D understand my current condition and have read and understand these discharge instructions. I have received a written copy of the plan/instructions. If I have questions, I am aware that I should contact my doctor. 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 MICRO - Microbiology PROCEDURE: Culture Wound Aerobic with Gram Stain [*1] SOURCE: Wound (surface) BODY SITE: Toe COLLECTED DATE/TIME: 11/25/2023 16:48 EDT RECEIVED DATE/TIME: 11/25/2023 19:54 EDT START DATE/TIME: 11/25/2023 19:54 EDT FREE TEXT SOURCE: right great toe paronychia FINAL REPORTS Final Report [] Verified Date/Time/Personnel: 11/28/2023 08:25 EDT Light Staphylococcus aureus This staphylococci does not demonstrate inducible clindamycin resistance in vitro. Few normal skin alan present. Sensitivity testing not indicated. PRELIMINARY REPORTS Preliminary Report [] Verified Date/Time/Personnel: 11/27/2023 08:36 EDT Light Staphylococcus aureus TWYLA to follow Few normal skin alan present. Sensitivity testing not indicated. Preliminary Report [] Verified Date/Time/Personnel: 11/26/2023 11:14 EDT Culture results pending. STAINS GS [] Verified Date/Time/Personnel: 11/25/2023 23:15 EDT No organisms seen. SUSCEPTIBILITY RESULTS Staphylococcus aureus Antibiotic TWLYA Dilut TWYLA Inter Ampicillin 8 Beta Lactamase Positive Ampicillin/ <=8/4 Susceptible Sulbactam Azithromycin >4 Resistant Ciprofloxacin <=1 Susceptible Clindamycin <=0.25 Susceptible Erythromycin >4 Resistant Levofloxacin <=1 Susceptible Oxacillin 0.5 Susceptible Penicillin >2 Beta Lactamase Positive Tetracycline <=4 Susceptible Trimethoprim/ <=0.5/9.5 Susceptible Sulfa Vancomycin 0.5 Susceptible Performing Locations *1: This test was performed at: [facility], [address] [place] [address], [id number]- , [facility] 09-01-2023 Note [facility] Medical Records Department [address] [place] [address] Discharge Summary 09/01/23 1600 MR#: [id number] Acct: [id number] Name: DAVID STREET Rep #: [id number] : 1950 73 From: Mejia Grissom DO PCP: Dr. Richie Heredia DO Status:ADM IN Location: [place] [address] Providers Date of Admission: 08/26/23 Primary Care Physician: Dr. Richie Heredia DO Reason For Visit: FAILURE TO THRIVE Diagnosis Discharge Diagnosis (1) Accidental fall from bed: Status: Acute Code(s): W06.XXXA - Fall from bed, initial encounter (2) Acute exacerbation of chronic obstructive pulmonary disease (COPD): Status: Chronic Code(s): J44.1 - Chronic obstructive pulmonary disease with (acute) exacerbation Plan Community-acquired pneumonia. * RULED OUT * infectious work up negative * DC abx and observe. 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 * Echo 08/26 shows an EF of 60% Elevated ESR and CRP * have been both elevated in the past, though higher now. * infectious work up, tib-fib xrays, foot xray negative. * in 2019, had RF, CCP, NATALIE that were negative. * recommend outpt follow up with rheumatology. DM2 * stable * glargine, empagliflozin Acute kidney injury * improved with IVF. Chronic conditions: * Class III obesity with BMI of 48??? Complicating care weight loss advised * Intertrigo??? Requested for nystatin powder to be applied to skin folds * Paroxysmal A-fib??? Patient was in sinus rhythm on admission * Obstructive sleep apnea??? Consistent use of PAP therapy encourage * Depression with anxiety??? Patient is on escitalopram as well as bupropion continue * Restless leg syndrome??? Patient is on ropinirole continue VTE prophylaxis: -Heparin SC Disposition: to [facility] Medications at Discharge Home Medications aspirin 81 mg tablet,delayed release 81 mg PO DAILY HEART HEALTH #90 tabs 10/25/20 albuterol sulfate 90 mcg/actuation aerosol inhaler 2 puff inhalation Q4H SHORTNESS OF BREATH 01/27/23 bumetanide 1 mg tablet 1 mg PO DAILY EDEMA 01/27/23 bupropion HCl 150 mg 24 hr tablet, extended release 150 mg PO DAILY DEPRESSION 01/27/23 calcium carbonate 600 mg-vitamin D3 10 mcg (400 unit) tablet 1 tab PO BID SUPPLEMENT 01/27/23 escitalopram oxalate 20 mg tablet 20 mg PO DAILY DEPRESSION 01/27/23 fluticasone fur. 100 mcg-umeclid 62.5 mcg-vilant 25 mcg inhalat.powder (Trelegy Ellipta) 1 inh inhalation DAILY SHORTNESS OF BREATH/WHEEZING 01/27/23 meloxicam 15 mg tablet 15 mg PO DAILY ARTHRITIS 01/27/23 pravastatin 40 mg tablet 40 mg PO QPM CHOLESTEROL 01/27/23 metoprolol succinate 50 mg tablet,extended release 24 hr 50 mg PO DAILY blood pressure 08/28/23 acetaminophen 500 mg tablet 1,000 mg (2 x 500 mg) PO Q8 #0 tabs 08/31/23 nystatin 100,000 unit/gram topical powder (Nyamyc) 1 applic topical BID #0 grams 08/31/23 Hospital Course Operations None Summary of Care Provided Hospital Course: Patient presents with shortness of breath. There was some initial concern for pneumonia but no infiltrate was noted on chest x-ray so antibiotics discontinued. Seen primarily her symptoms related with COPD exacerbation. Patient was started on bronchodilators and steroids and patient overall improved. Patient will be discharged with prednisone. Patient does have elevated ESR and CRP but that is been elevated in the past. Patient's workup here was negative. She has also been evaluated for rheumatologic workup in the past which is also been negative. Would advise patient follow-up with rheumatology as outpatient. Patient was weak and debilitated will be going to [facility] in stable condition. Weight / BMI Weight Weight: 105.596 kg Body Mass Index (BMI) 47.0 ABG / Lab / Microbiology Data 08/30/23 05:48 08/30/23 05:48 Laboratory: Laboratory Results - last 24 hr 08/31/23 15:39: POC Glucose 107 H 08/31/23 22:04: POC Glucose 94 09/01/23 06:37: POC Glucose 131 H 09/01/23 11:37: POC Glucose 188 H Microbiology: Microbiology 08/26/23 14:05 Blood Culture (Wb) - Right Hand Blood Culture - Final No growth in 5 days. 08/26/23 14:25 Blood Culture (Wb) - Right Wrist Blood Culture - Final No growth in 5 days. 08/26/23 10:10 Mucosa - Nasopharyngeal SARS-CoV-2, Influenza RSV (PCR) - Final 08/25/23 08:17 Mucosa - Nasopharyngeal Respiratory Panel (PCR) - Final 08/25/23 05:36 Mucosa - Nose SARS-CoV-2, Influenza RSV (PCR) - Final Meaningful Use Info Meaningful Use Meaningful Use Diagnoses (Choose all that apply): None applicable Ischemic Stroke Statin Dosing Therapy Reference: STATIN DOSE THERAPY REFERENCE: * Patients > 75 years receive moderate or high dose statin thera (more content not included)... [facility] 04-14-2023 Note . MICRO - Microbiology PROCEDURE: Urine Culture [*1] SOURCE: Urine, Clean Catch BODY SITE: COLLECTED DATE/TIME: 04/13/2023 17:11 EST RECEIVED DATE/TIME: 04/13/2023 19:06 EST START DATE/TIME: 04/13/2023 19:06 EST FREE TEXT SOURCE: FINAL REPORTS Final Report [] Verified Date/Time/Personnel: 04/14/2023 14:22 EST <10,000 cfu/ml. No Significant growth. Sensitivity not indicated. Performing Locations *1: This test was performed at: [facility], [address] [place] [address], [facility] , [facility] 03-20-2023 Note . MICRO - Microbiology PROCEDURE: Urine Culture [*1] SOURCE: Urine BODY SITE: COLLECTED DATE/TIME: 03/18/2023 11:41 EST RECEIVED DATE/TIME: 03/18/2023 19:40 EST START DATE/TIME: 03/18/2023 19:41 EST FREE TEXT SOURCE: FINAL REPORTS Final Report [] Verified Date/Time/Personnel: 03/20/2023 08:27 EST >100,000 cfu/ml Escherichia coli PRELIMINARY REPORTS Preliminary Report [] Verified Date/Time/Personnel: 03/19/2023 13:17 EST >100,000 cfu/ml Escherichia coli TWYLA to follow SUSCEPTIBILITY RESULTS Escherichia coli Antibiotic TWYLA Dilut TWYLA Inter Ampicillin >16 Resistant Ampicillin/ <=4/2 Susceptible Sulbactam Aztreonam <=4 Susceptible Cefazolin <=2 Susceptible Ciprofloxacin <=0.25 Susceptible Ertapenem <=0.5 Susceptible Gentamicin <=2 Susceptible ID Panel Not Not Applicable Applicable Imipenem <=1 Susceptible Levofloxacin <=0.5 Susceptible Meropenem <=1 Susceptible Minocycline 8 Intermediate Nitrofurantoin <=32 Susceptible Piperacillin/ <=8 Susceptible Tazobactam Trimethoprim/ >2/38 Resistant Sulfa Performing Locations *1: This test was performed at: [facility], [address] [place] [address], [address] , [facility] 01-30-2023 Progress note Note Date/Time January 30, 2023 11:24am [facility] Medical Records Department [address] [place] [address] Progress Note - Cardiology 01/30/231121 MR#: [id number] Acct: [id number] Name: YENIFERDAVID D Rep #:[id number] : 1950 72 From: Michael Saravia MD PCP: Dr. Richie Heredia, DO Status:ADM IN Location: [place] [address] Subjective Subjective Denies any complaints. Objective Data Vital Signs: Vital Signs Temp Pulse Resp BP Pulse Ox O2 Del Method O2 Flow Rate 97.8 F 94 16 127/66 H 99 Nasal Cannula 3 01/30/23 09:45 01/30/23 09:45 01/30/23 09:45 01/30/23 09:45 01/30/23 09:45 01/30/23 09:45 01/30/23 09:45 FiO2 30 01/30/23 04:38 Oxygen Flow Rate (L/min) 3 Oxygen Delivery Method Nasal Cannula Weight: 253 lb 1.451 oz Body Mass Index (BMI) 49.6 Intake & Output: Intake and Output for Last 24 Hours 01/28/23 01/29/23 01/30/23 23:59 23:59 23:59 Intake Total 3972.83 / 4122.83 1721.80 / 2121.80 720 / 720 Output Total 675 / 1025 353 / 353 Balance 3297.83 / 3097.83 1368.80 / 1768.80 720 / 720 Lab / Micro Data 01/30/23 05:55 01/30/23 05:55 Labs: Laboratory Results - last 24 hr 01/29/23 11:41: POC Glucose 97 01/29/23 15:55: WBC 8.6, RBC 3.27 L, Hgb 10.3 L, Hct 31.7 L, MCV 96.9, MCH 31.5,MCHC 32.5, RDW Std Deviation 54.3 H, RDW Coeff of Penny 15.3 H, Plt Count 147 L, MPV 12.3 H, Immature Gran % (Auto) 0.500, Neut % (Auto) 76.0 H, Lymph % (Auto) 14.6 L, [place] % (Auto) 7.2, Eos % (Auto) 1.2, Baso % (Auto) 0.5, Absolute Neuts (auto) 6.6, Absolute Lymphs (auto) 1.26, Nucleated RBC % 0, Sodium 142, Potassium 3.9, Chloride 117 H, Carbon Dioxide 25.0, Anion Gap 0 L, BUN 15, Creatinine 0.64, Estim Creat Clear Calc 93.43, Est GFR (MDRD) Af Amer 117, Est GFR (MDRD) Non-Af 96, BUN/Creatinine Ratio 23.3 H, Glucose 93, Calcium 7.5 L 01/29/23 17:29: POC Glucose 78 01/29/23 21:27: POC Glucose 95 01/30/23 05:55: WBC 7.7, RBC 3.46 L, Hgb 10.5 L, Hct 33.6 L, MCV 97.1, MCH 30.3,MCHC 31.3 L, RDW Std Deviation 54.1 H, RDW Coeff of Penny 15.3 H, Plt Count 168, MPV 12.6 H, Immature Gran % (Auto) 0.400, Neut % (Auto) 73.1 H, Lymph % (Auto) 15.4 L, [place] % (Auto) 8.5, Eos % (Auto) 2.1, Baso % (Auto) 0.5, Absolute Neuts (auto) 5.6, Absolute Lymphs (auto) 1.18, Nucleated RBC % 0, Sodium 140, Potassium 4.2, Chloride 113 H, Carbon Dioxide 25.0, Anion Gap 2 L, BUN 10, Creatinine 0.68, Estim Creat Clear Calc 93.51, Est GFR (MDRD) Af Amer 110, Est GFR (MDRD) Non-Af 91, BUN/Creatinine Ratio 14.7, Glucose 78, Calcium 8.1 L 01/30/23 06:14: POC Glucose 86 Micro: Microbiology 01/27/23 08:51 Urine Catheter - Das Urine Culture - Final Escherichia coli 01/29/23 01:40 Stool Enteric Bacteriology - Final 01/29/23 13:13 Sputum, Expectorated/Coughed Gram Stain - Final 01/27/23 09:40 Blood Culture (Wb) - Right Forearm Blood Culture - Preliminary No growth in 48 hours. 01/27/23 08:56 Blood Culture (Wb) - Venous Blood Culture - Final Escherichia coli Cardiology Labs/Tests 01/29/23 15:55: WBC 8.6, RBC 3.27 L, Hgb 10.3 L, Hct 31.7 L, MCV 96.9, MCH 31.5,MCHC 32.5, Plt Count 147 L, MPV 12.3 H, Immature Gran % (Auto) 0.500, Neut % (Auto) 76.0 H, Lymph % (Auto) 14.6 L, [place] % (Auto) 7.2, Eos % (Auto) 1.2, Baso % (Auto) 0.5, Absolute Neuts (auto) 6.6, Nucleated RBC % 0, Sodium 142, Potassium 3.9, Chloride 117 H, Carbon Dioxide 25.0, Anion Gap 0 L, BUN 15, Creatinine 0.64, Est GFR (MDRD) Af Amer 117, Est GFR (MDRD) Non-Af 96, BUN/Creatinine Ratio 23.3 H, Glucose 93, Calcium 7.5 L 01/30/23 05:55: WBC 7.7, RBC 3.46 L, Hgb 10.5 L, Hct 33.6 L, MCV 97.1, MCH 30.3,MCHC 31.3 L, Plt Count 168, MPV 12.6 H, Immature Gran % (Auto) 0.400, Neut % (Auto) 73.1 H, Lymph % (Auto) 15.4 L, [place] % (Auto) 8.5, Eos % (Auto) 2.1, Baso % (Auto) 0.5, Absolute Neuts (auto) 5.6, Nucleated RBC % 0, Sodium 140, Potassium 4.2, Chloride 113 H, Carbon Dioxide 25.0, Anion Gap 2 L, BUN 10, Creatinine 0.68, Est GFR (MDRD) Af Amer 110, Est GFR (MDRD) Non-Af 91, BUN/Creatinine Ratio 14.7, Glucose 78, Calcium 8.1 L Rhythm: EKG: ECHO: Stress Test: Cardiac Cath: PCI: CT Surgery: Holter monitor: EPS: PPM: CXR: Chest CT Scan: Physical Exam Narrative Appears comfortable. No apparent distress. Heart sounds 1 and 2 are noted. Chest clear to auscultation bilaterally.. Alert oriented x 3. No ankle edema. Assessment & Plan Assessment/Plan (1) NSTEMI (non-ST elevated myocardial infarction): PLAN: Likely type II elevation in the setting of sepsis with febrile illness. Continue aspirin. Normal LV systolic function. Start low-dose beta-blockers. Recommend pharmacological stress test as outpatient. (2) Sepsis: QUALIFIERS: Sepsis type: sepsis due to unspecified organism Sepsis acute organ dysfunction status: with acute organ dysfunction Severe sepsis acute organ dysfunction type: acute renal failure Acute renal failure type: with acute tubular necrosis Severe sepsis shock status: without septic shock Qualified Code(s): A41.9 - Sepsis, unspecified organism; R65.20 - Severe sepsis without septic shock; N17.0 - Acute kidney failure with tubular necrosis PLAN: On antibiotics. Continue to manage as per internal medicine/critical care. (3) HTN (hypertension): QUALIFIERS: Hypertension type: essential hypertension Qualified Code(s): I10 - Essential (primary) hypertension PLAN: Monitor. (4) Diabetes mellitus type 2 in obese: 01/30/23 1124 <Electronically signed by Michael Saravia MD> Cosigner Signature (if applicable): CC: ~ Signed [facility] Work Phone: 1(847) 557-465312-09-2023 Discharge summary Author Maximilian Kitchen [facility] January 30, 2023 11:00am Note Date/Time January 30, 2023 1 0:56am [facility] Medical Records Department [address] [place] [id number] Discharge Summary 01/30/23 1056 MR#: [id number] Acct: [id number] Name: DAVID STREET Rep #:[id number] : 1950 72 From: Maximilian Kitchen MD PCP: Dr. Richie Heredia DO Status:ADM IN [facility] Providers Date of Admission: 01/27/23 Date of Discharge: 01/30/23 Primary Care Physician: Dr. Richie Heredia, Consultations 01/27/23 12:12 Consult: Cardiology Routine Consulting Provider: Michael Saravia Reason for Consult: Elevated troponin EMERGENT Consult: No MD Notified: Yes Date Notified: 01/27/23 Time Notified: 12:13 Method of Notification: ED Physician Initiated Reason For Visit: SEPSIS Diagnosis Discharge Diagnosis (1) Sepsis: Status: Acute Code(s): A41.9 - Sepsis, unspecified organism Qualifiers: Sepsis type: sepsis due to unspecified organism Sepsis acute organ dysfunction status: with acute organ dysfunction Severe sepsis acute organ dysfunction type: acute renal failure Acute renal failure type: with acute tubular necrosis Severe sepsis shock status: without septic shock Qualified Code(s): A41.9 - Sepsis, unspecified organism; R65.20 - Severe sepsis without septic shock; N17.0 - Acute kidney failure with tubular necrosis Plan Patient is a 72-year-old lady presented with increasing lethargy workup was consistent with sepsis secondary to acute acute cystitis admitted to a monitoredbed for further management 1. Sepsis secondary to acute cystitis with E. coli ? Secondary to acute cystitis evidence of sepsis (patient febrile with temperature of 102.4, respiratory rate of 26,Pulse rate of 120, with evidence ofendorgan dysfunction acute kidney injury and lactic acidosis) admitted to monitored bed treatment initiated per protocol with aggressive IV fluid resuscitation after cultures have been sent. Patient response to therapy being monitored with blood pressure as well as serial lactic acid levels ? 01/28/2023 patient cultures so far positive for gram-negative rods in the blood ? 01/29/2023 patient blood cultures positive for E. coli 2. Acute cystitis with E. coli ? Patient started on cefepime cultures sent ? 01/29/2023; patient remains on appropriate antibiotic therapy 3. Acute kidney injury ? Creatinine on admission was 1.20. Patient baseline creatinine from November 2022 was 0.73 started on IV fluid with subsequent monitoring of electrolytes ordered ? 01/28/2023; patient on IV fluid with subsequent monitoring of electrolyte 4. Acute hypoxic respiratory failure ? This was evidenced by tachypnea as well as hypoxia secondary to fluid overloadpatient had to be placed on noninvasive ventilation BiPAP and subsequently transferred to the intensive care unit. Patient has since been weaned off BiPAPas of this a.m. 5. Elevated troponin ? Secondary to suspected myocardial injury from above patient started on heparindrip consult placed to cardiology also ordered 2D echo ? 01/29/2023 patient was seen in consultation by Dr. Saravia's notes and recommendations reviewed. 6. Diabetes mellitus type II -patient's oral hypoglycemics held. Placed on long acting insulin, Accu-Cheks a.c. and at bedtime and covered with sliding scale insulin 7. COPD ? Without acute exacerbation aerosol treatment as needed 8. Class III obesity with BMI of 49.9 ? Complicating care weight loss advised 9. Paroxysmal A-fib ? Patient was in sinus rhythm on admission 10. Obstructive sleep apnea ? Consistent use of PAP therapy encourage 11. Tobacco dependence - Counseled on cessation, offered nicotine patch for tobacco cravings 12. Depression with anxiety ? Patient is on escitalopram as well as bupropion continue 13. Restless leg syndrome ? Patient is on ropinirole continue 14. DVT prophylaxis - On enoxaparin Time critical Spent in the patient's overall evaluation,decision-making process,review of diagnostic data, adjustment of management, discussion with other providers, nursing nursing and ancillary staff involved in patient's care documentation, 35 minutes Medications at Discharge Home Medications insulin glargine 100 unit/mL (3 mL) subcutaneous pen 100 units subcut QHS diabetes 03/14/14 oxycodone-acetaminophen 5 mg-325 mg tablet 1 tab PO Q6H PAIN 04/02/16 gabapentin 400 mg capsule 400 mg PO DAILY NEUROPATHY 11/15/19 aspirin 81 mg tablet,delayed release 81 mg PO DAILY HEART HEALTH #90 tabs 10/25/20 empagliflozin 25 mg tablet (Jardiance) 25 mg PO DAILY DIABETES 05/23/21 metformin 500 mg tablet,extended release 24 hr 1,000 mg PO DAILY DIABETES 05/23/21 ropinirole 0.5 mg tablet 0.5 - 1 mg PO QHS RESTLESS LEGS 05/23/21 albuterol sulfate 90 mcg/actuation aerosol inhaler 2 puff inhalation Q4H SHORTNESS OF BREATH 01/27/23 bumetanide 1 mg tablet 1 mg PO DAILY EDEMA 01/27/23 bupropion HCl 150 mg 24 hr tablet, extended release 150 mg PO DAILY DEPRESSION 01/27/23 calcium carbonate 600 mg-vitamin D3 10 mcg (400 unit) tablet 1 tab PO BID SUPPLEMENT 01/27/23 escitalopram oxalate 20 mg tablet 20 mg PO DAILY DEPRESSION 01/27/23 fluticasone fur. 100 mcg-umeclid 62.5 mcg-vilant 25 mcg inhalat.powder (Trelegy Ellipta) 1 inh inhalation DAILY SHORTNESS OF BREATH/WHEEZING 01/27/23 gabapentin 400 mg capsule 800 mg PO QPM NEUROPATHY 01/27/23 meloxicam 15 mg tablet 15 mg PO DAILY ARTHRITIS 01/27/23 pravastatin 40 mg tablet 40 mg PO QPM CHOLESTEROL 01/27/23 ropinirole 0.5 mg tablet 1 mg PO QPM PRN RESTLESS LEGS 01/27/23 cefdinir 300 mg capsule 300 mg PO BID #14 caps 01/30/23 Hospital Course Summary of Care Provided Minutes Spent on Discharge: 35 Physical Exam Narrative GENERAL: Cooperative no acute distress HEENT: Atraumatic; normocephalic EYES; Anicteric, Normal Conjunctiva NECK; supple, normal thyroid, RESPIRATORY: Diminished to auscultation CARDIOVASCULAR: Regular S1 S2, GI: soft, normoactive bowel sounds, : No Renal angle tenderness; EXTREMITIES: edema, no clubbing, MUSCULOSKELETAL: no muscle wasting NEURO: Awake; no lateralizing signs. SKIN: No Rash PSYCH; Flat affect Weight / BMI Weight Weight: 114.8 kg Body Mass Index (BMI) 49.6 ABG / Lab / Microbiology Data 01/30/23 05:55 01/30/23 05:55 Laboratory: Laboratory Results - last 24 hr 01/29/23 11:41: POC Glucose 97 01/29/23 15:55: WBC 8.6, RBC 3.27 L, Hgb 10.3 L, Hct 31.7 L, MCV 96.9, MCH 31.5,MCHC 32.5, RDW Std Deviation 54.3 H, RDW Coeff of Penny 15.3 H, Plt Count 147 L, MPV 12.3 H, Immature Gran % (Auto) 0.500, Neut % (Auto) 76.0 H, Lymph % (Auto) 14.6 L, [place] % (Auto) 7.2, Eos % (Auto) 1.2, Baso % (Auto) 0.5, Absolute Neuts (auto) 6.6, Absolute Lymphs (auto) 1.26, Nucleated RBC % 0, Sodium 142, Potassium 3.9, Chloride 117 H, Carbon Dioxide 25.0, Anion Gap 0 L, BUN 15, Creatinine 0.64, Estim Creat Clear Calc 93.43, Est GFR (MDRD) Af Amer 117, Est GFR (MDRD) Non-Af 96, BUN/Creatinine Ratio 23.3 H, Glucose 93, Calcium 7.5 L 01/29/23 17:29: POC Glucose 78 01/29/23 21:27: POC Glucose 95 01/30/23 05:55: WBC 7.7, RBC 3.46 L, Hgb 10.5 L, Hct 33.6 L, MCV 97.1, MCH 30.3,MCHC 31.3 L, RDW Std Deviation 54.1 H, RDW Coeff of Penny 15.3 H, Plt Count 168, MPV 12.6 H, Immature Gran % (Auto) 0.400, Neut % (Auto) 73.1 H, Lymph % (Auto) 15.4 L, [place] % (Auto) 8.5, Eos % (Auto) 2.1, Baso % (Auto) 0.5, Absolute Neuts (auto) 5.6, Absolute Lymphs (auto) 1.18, Nucleated RBC % 0, Sodium 140, Potassium 4.2, Chloride 113 H, Carbon Dioxide 25.0, Anion Gap 2 L, BUN 10, Creatinine 0.68, Estim Creat Clear Calc 93.51, Est GFR (MDRD) Af Amer 110, Est GFR (MDRD) Non-Af 91, BUN/Creatinine Ratio 14.7, Glucose 78, Calcium 8.1 L 01/30/23 06:14: POC Glucose 86 Microbiology: Microbiology 01/27/23 08:51 Urine Catheter - Das Urine Culture - Final Escherichia coli 01/29/23 01:40 Stool Enteric Bacteriology - Final 01/29/23 13:13 Sputum, Expectorated/Coughed Gram Stain - Final 01/27/23 09:40 Blood Culture (Wb) - Right Forearm Blood Culture - Preliminary No growth in 48 hours. 01/27/23 08:56 Blood Culture (Wb) - Venous Blood Culture - Final Escherichia coli 01/28/23 19:40 Stool Stool Occult Blood (TWYLA) - Final 01/28/23 14:17 Mucosa - Nose Influenza Types A,B Direct FA (TWYLA) - Final 01/28/23 14:17 Mucosa - Nasopharyngeal Rapid RSV (DFA) - Final 01/27/23 10:54 Mucosa - Nasopharyngeal Respiratory Panel (PCR) - Final 01/27/23 08:51 Nasal Secretion SARS-CoV-2 & FLU Antigen (Rapid) - Final D/C Instructions Discharge Diet: 1800 Calorie Control Diet Discharge Activity: Return to Normal Activity Call your doctor if you observe: Fever of 101 or Higher, Shortness of breath, Fainting spells and Chest pain Meaningful Use Info Meaningful Use Diagnoses (Choose all that apply): None applicable Discharge Plan Admission Admit Date/Time: 01/27/23 13:11 Attending Provider: Maximilian Kitchen Primary Care Provider: Richie Heredia Consulting Providers: Michael Saravia Discharge Orders/Prescriptions Prescriptions: New cefdinir 300 mg capsule 300 mg PO BID Qty: 14 0RF Continued insulin glargine 100 UNITS/ML insulin pen 100 units SC QHS Patient Comments: PTS FAMILY MEMBER STATES THAT THE PT IS SUPPOSED TO BE USING INSULIN BUT THEYHAVE NOT BEEN DOING THAT. UNSURE OF WHEN THE PT LAST USED THEIR INSULIN. ( OF 01-27-23) oxycodone-acetaminophen 1 TABLET tablet 1 tab PO Q6H gabapentin 400 MG capsule 400 mg PO DAILY ropinirole 0.5 mg tablet 0.5 - 1 mg PO QHS Patient Comments: TAKE TWO TABLETS (1MG) BY MOUTH ONCE EVERY EVENING IF NEEDED. TAKE AN ADDITIONAL 1-2 TABLETS (0.5MG-1MG) AT BEDTIME. metformin 500 mg tablet extended release 24 hr 1,000 mg PO DAILY Jardiance 25 mg tablet 25 mg PO DAILY ropinirole 0.5 mg tablet 1 mg PO QPM PRN (Reason: RESTLESS LEGS) Rx Instructions: TAKE TWO TABLETS (1MG) BY MOUTH ONCE EVERY EVENING IF NEEDED. TAKE AN ADDITIONAL 1-2 TABLETS (0.5MG-1MG) AT BEDTIME. albuterol sulfate 90 mcg/actuation HFA aerosol inhaler 2 puff INHALATION Q4H bumetanide 1 mg tablet 1 mg PO DAILY bupropion HCl 150 mg tablet extended release 24 hr 150 mg PO DAILY calcium carbonate-vitamin D3 600 mg-10 mcg (400 unit) tablet 1 tab PO BID Trelegy Ellipta 100-62.5-25 mcg blister with device 1 inh INHALATION DAILY meloxicam 15 mg tablet 15 mg PO DAILY pravastatin 40 mg tablet 40 mg PO QPM escitalopram oxalate 20 mg tablet 20 mg PO DAILY gabapentin 400 mg capsule 800 mg PO QPM aspirin 81 mg tablet,delayed release (DR/EC) 81 mg PO DAILY Qty: 90 3RF Referrals / Follow Up: Richie Heredia DO [Primary Care Provider] - In 1 Week Disposition Disposition (needs filled in before D/C Order can be placed): Home, Self Care Charges/Coding Visit Charges Inpatient E&M: 38738 Disch Hosp >30min 01/30/23 1100 <Electronically signed by Maximilian Kitchen MD> Cosigner Signature (if applicable): CC: Dr. Maximilian Kitchen MD; Dr. Richie Heredia DO~ Signed [facility] Work Phone: 1(523) 748-709512-09-2023 Progress note Author Maximilian Kitchen [facility] January 30, 2023 10:55am Note Date/Time January 30, 2023 8 :09am [facility] Medical Records Department [address] [place] [address] Progress Note - Hospitalist 01/30/23807 MR#: [id number] Acct: [id number] Name: DAVID STREET Rep #:[id number] : 1950 72 From: Maximilian Kitchen MD PCP: Dr. Richie Heredia DO Status:ADM IN Location: [place] [address] Reason for Visit Reason for Visit: Diagnoses Sepsis, unspecified organism (01/27/23) Type 2 diabetes mellitus without complications (01/27/23) Obesity, unspecified (01/27/23) Essential (primary) hypertension (01/27/23) Non-ST elevation (NSTEMI) myocardial infarction (01/27/23) Paroxysmal atrial fibrillation (01/27/23) Acute kidney failure with tubular necrosis (01/27/23) Severe sepsis without septic shock (01/27/23) Subjective Subjective Seen back to baseline culture results reviewed. Patient will be assessed for possible discharge Objective Data Objective Data Vital Signs: Vital Signs Temp Pulse Resp BP Pulse Ox O2 Del Method O2 Flow Rate 98.2 F 74 15 123/57 H 98 Bi-pap 2 01/30/23 03:40 01/30/23 04:38 01/30/23 04:38 01/30/23 03:40 01/30/23 04:38 01/30/23 03:40 01/29/23 18:06 FiO2 30 01/30/23 04:38 Oxygen Flow Rate (L/min) 2 Oxygen Delivery Method Bi-pap Weight: 114.8 kg Body Mass Index (BMI) 49.6 Intake & Output: Intake and Output for Last 24 Hours 01/28/23 01/29/23 01/30/23 23:59 23:59 23:59 Intake Total 3972.83 / 4122.83 1721.80 / 2121.80 720 / 720 Output Total 675 / 1025 353 / 353 Balance 3297.83 / 3097.83 1368.80 / 1768.80 720 / 720 Lab / Micro Data 01/30/23 05:55 01/30/23 05:55 Labs: Laboratory Results - last 24 hr 01/29/23 08:00: APTT 46.2 H, POC Glucose 105 01/29/23 11:41: POC Glucose 97 01/29/23 15:55: WBC 8.6, RBC 3.27 L, Hgb 10.3 L, Hct 31.7 L, MCV 96.9, MCH 31.5,MCHC 32.5, RDW Std Deviation 54.3 H, RDW Coeff of Penny 15.3 H, Plt Count 147 L, MPV 12.3 H, Immature Gran % (Auto) 0.500, Neut % (Auto) 76.0 H, Lymph % (Auto) 14.6 L, [place] % (Auto) 7.2, Eos % (Auto) 1.2, Baso % (Auto) 0.5, Absolute Neuts (auto) 6.6, Absolute Lymphs (auto) 1.26, Nucleated RBC % 0, Sodium 142, Potassium 3.9, Chloride 117 H, Carbon Dioxide 25.0, Anion Gap 0 L, BUN 15, Creatinine 0.64, Estim Creat Clear Calc 93.43, Est GFR (MDRD) Af Amer 117, Est GFR (MDRD) Non-Af 96, BUN/Creatinine Ratio 23.3 H, Glucose 93, Calcium 7.5 L 01/29/23 17:29: POC Glucose 78 01/29/23 21:27: POC Glucose 95 01/30/23 05:55: WBC 7.7, RBC 3.46 L, Hgb 10.5 L, Hct 33.6 L, MCV 97.1, MCH 30.3,MCHC 31.3 L, RDW Std Deviation 54.1 H, RDW Coeff of Penny 15.3 H, Plt Count 168, MPV 12.6 H, Immature Gran % (Auto) 0.400, Neut % (Auto) 73.1 H, Lymph % (Auto) 15.4 L, [place] % (Auto) 8.5, Eos % (Auto) 2.1, Baso % (Auto) 0.5, Absolute Neuts (auto) 5.6, Absolute Lymphs (auto) 1.18, Nucleated RBC % 0, Sodium 140, Potassium 4.2, Chloride 113 H, Carbon Dioxide 25.0, Anion Gap 2 L, BUN 10, Creatinine 0.68, Estim Creat Clear Calc 93.51, Est GFR (MDRD) Af Amer 110, Est GFR (MDRD) Non-Af 91, BUN/Creatinine Ratio 14.7, Glucose 78, Calcium 8.1 L 01/30/23 06:14: POC Glucose 86 Micro: Microbiology 01/27/23 08:51 Urine Catheter - Das Urine Culture - Final Escherichia coli 01/29/23 01:40 Stool Enteric Bacteriology - Final 01/29/23 13:13 Sputum, Expectorated/Coughed Gram Stain - Final 01/27/23 09:40 Blood Culture (Wb) - Right Forearm Blood Culture - Preliminary No growth in 48 hours. 01/27/23 08:56 Blood Culture (Wb) - Venous Blood Culture - Final Escherichia coli 01/28/23 19:40 Stool Stool Occult Blood (TWYLA) - Final 01/28/23 14:17 Mucosa - Nose Influenza Types A,B Direct FA (TWYLA) - Final 01/28/23 14:17 Mucosa - Nasopharyngeal Rapid RSV (DFA) - Final 01/27/23 10:54 Mucosa - Nasopharyngeal Respiratory Panel (PCR) - Final 01/27/23 08:51 Nasal Secretion SARS-CoV-2 & FLU Antigen (Rapid) - Final Physical Exam Narrative GENERAL: Dyspneic at rest HEENT: Atraumatic; normocephalic EYES; Anicteric, Normal Conjunctiva NECK; supple, normal thyroid, RESPIRATORY: Diminished to auscultation CARDIOVASCULAR: Regular S1 S2, GI: soft, normoactive bowel sounds, : No Renal angle tenderness; EXTREMITIES: edema, no clubbing, MUSCULOSKELETAL: no muscle wasting NEURO: Awake; no lateralizing signs. SKIN: No Rash PSYCH; Flat affect Assessment & Plan Assessment/Plan (1) Sepsis: QUALIFIERS: Acute renal failure type: with acute tubular necrosis Sepsis acute organ dysfunction status: with acute organ dysfunction Sepsis type: sepsis due to unspecified organism Severe sepsis acute organ dysfunction type: acute renal failure Severe sepsis shock status: without septic shock Qualified Code(s): A41.9 - Sepsis, unspecified organism; R65.20 - Severe sepsis without septic shock; N17.0 - Acute kidney failure with tubular necrosis PLAN: Plan Patient is a 72-year-old lady presented with increasing lethargy workup was consistent with sepsis secondary to acute acute cystitis admitted to a [facility] for further management 1. Sepsis secondary to acute cystitis with E. coli ? Secondary to acute cystitis evidence of sepsis (patient febrile with temperature of 102.4, respiratory rate of 26,Pulse rate of 120, with evidence ofendorgan dysfunction acute kidney injury and lactic acidosis) admitted to monitored bed treatment initiated per protocol with aggressive IV fluid resuscitation after cultures have been sent. Patient response to therapy being monitored with blood pressure as well as serial lactic acid levels ? 01/28/2023 patient cultures so far positive for gram-negative rods in the blood ? 01/29/2023 patient blood cultures positive for E. coli 2. Acute cystitis with E. coli ? Patient started on cefepime cultures sent ? 01/29/2023; patient remains on appropriate antibiotic therapy 3. Acute kidney injury ? Creatinine on admission was 1.20. Patient baseline creatinine from November 2022 was 0.73 started on IV fluid with subsequent monitoring of electrolytes ordered ? 01/28/2023; patient on IV fluid with subsequent monitoring of electrolyte 4. Acute hypoxic respiratory failure ? This was evidenced by tachypnea as well as hypoxia secondary to fluid overloadpatient had to be placed on noninvasive ventilation BiPAP and subsequently transferred to the intensive care unit. Patient has since been weaned off BiPAPas of this a.m. 5. Elevated troponin ? Secondary to suspected myocardial injury from above patient started on heparindrip consult placed to cardiology also ordered 2D echo ? 01/29/2023 patient was seen in consultation by Dr. Saravia's notes and recommendations reviewed. 6. Diabetes mellitus type II -patient's oral hypoglycemics held. Placed on long acting insulin, Accu-Cheks a.c. and at bedtime and covered with sliding scale insulin 7. COPD ? Without acute exacerbation aerosol treatment as needed 8. Class III obesity with BMI of 49.9 ? Complicating care weight loss advised 9. Paroxysmal A-fib ? Patient was in sinus rhythm on admission 10. Obstructive sleep apnea ? Consistent use of PAP therapy encourage 11. Tobacco dependence - Counseled on cessation, offered nicotine patch for tobacco cravings 12. Depression with anxiety ? Patient is on escitalopram as well as bupropion continue 13. Restless leg syndrome ? Patient is on ropinirole continue 14. DVT prophylaxis - On enoxaparin Time critical Spent in the patient's overall evaluation,decision-making process,review of diagnostic data, adjustment of management, discussion with other providers, nursing nursing and ancillary staff involved in patient's care documentation, 35 minutes Charges/Coding Visit Charges Inpatient E&M: 64224 Subs Hosp L2 01/30/23 1055 <Electronically signed by Maximilian Kitchen MD> Cosigner Signature (if applicable): CC: ~ Signed [facility] Work Phone: 1(199) 560-544112-08-2023 Progress note Author Maximilian Kitchen [facility] January 29, 2023 11:05am Note Date/Time January 29, 2023 7 :49am [facility] Medical Records Department [address] [place] [address] Progress Note - Hospitalist 01/29/23 0744 MR#: [id number] Acct: [id number] Name: YENIFERDAVID D Rep #:[id number] : 1950 72 From: Maximilian Kitchen MD PCP: Dr. Richie Heredia, DO Status:ADM IN Location: ICU ICU01-1 Reason for Visit Reason for Visit: Diagnoses Sepsis, unspecified organism (01/27/23) Type 2 diabetes mellitus without complications (01/27/23) Obesity, unspecified (01/27/23) Essential (primary) hypertension (01/27/23) Non-ST elevation (NSTEMI) myocardial infarction (01/27/23) Paroxysmal atrial fibrillation (01/27/23) Acute kidney failure with tubular necrosis (01/27/23) Severe sepsis without septic shock (01/27/23) Subjective Subjective Patient blood cultures positive for Escherichia coli. Patient remains on appropriate antibiotic therapy. Also complains of having experienced restlessness during the night. Objective Data Objective Data Vital Signs: Vital Signs Temp Pulse Resp BP Pulse Ox O2 Del Method O2 Flow Rate 97.9 F 98 23 H 144/83 H 95 Room Air 2 01/29/23 04:00 01/29/23 04:35 01/29/23 04:35 01/29/23 04:00 01/29/23 04:35 01/29/23 04:00 01/28/23 14:16 FiO2 30 01/29/23 04:35 Oxygen Flow Rate (L/min) 2 Oxygen Delivery Method Room Air Weight: 114.7 kg Body Mass Index (BMI) 49.6 Intake & Output: Intake and Output for Last 24 Hours 01/27/23 01/28/23 01/29/23 23:59 23:59 23:59 Intake Total 5596.67 / 5596.67 3972.83 / 4122.83 435.4 / 435.4 Output Total 1840 / 1900 675 / 1025 353 / 353 Balance 3756.67 / 3696.67 3297.83 / 3097.83 82.4 / 82.4 Lab / Micro Data 01/28/23 04:23 01/28/23 04:23 Labs: Laboratory Results - last 24 hr 01/28/23 07:52: POC Glucose 38 L* 01/28/23 08:20: POC Glucose 65 L 01/28/23 08:52: POC Glucose 91 01/28/23 10:40: PT 16.0 H, INR 1.3, APTT 32.2 01/28/23 13:20: POC Glucose 95 01/28/23 14:17: MRSA (PCR) Negative 01/28/23 16:23: POC Glucose 116 H 01/28/23 17:30: APTT 39.4 H 01/28/23 22:24: POC Glucose 105 01/29/23 01:00: APTT 46.3 H Micro: Microbiology 01/28/23 19:40 Stool Stool Occult Blood (TWYLA) - Final 01/28/23 14:17 Mucosa - Nose Influenza Types A,B Direct FA (TWYLA) - Final 01/28/23 14:17 Mucosa - Nasopharyngeal Rapid RSV (DFA) - Final 01/27/23 08:51 Urine Catheter - Das Urine Culture - Preliminary Gram negative gregg Gram negative gregg#2 01/27/23 08:56 Blood Culture (Wb) - Venous Blood Culture - Preliminary Gram negative gregg 01/27/23 10:54 Mucosa - Nasopharyngeal Respiratory Panel (PCR) - Final 01/27/23 08:51 Nasal Secretion SARS-CoV-2 & FLU Antigen (Rapid) - Final Radiography Diagnostic Testing: Radiology Impression Echocardiogram 01/27/23 12:12 Interpretation Summary Mild concentric left ventricular hypertrophy. The left ventricular ejection fraction is 65 %. Diastolic function is indeterminate. Severe mitral annular calcification. Mild (1+) mitral valve insufficiency. Aortic sclerosis, no stenosis. Ordering Physician: Maximilian Kitchen Referring Physician: Richie Heredia Performed By: Amelia Giron, JOHANN, RVT Physical Exam Narrative GENERAL: Dyspneic at rest HEENT: Atraumatic; normocephalic EYES; Anicteric, Normal Conjunctiva NECK; supple, normal thyroid, RESPIRATORY: Diminished to auscultation CARDIOVASCULAR: Regular S1 S2, GI: soft, normoactive bowel sounds, : No Renal angle tenderness; EXTREMITIES: edema, no clubbing, MUSCULOSKELETAL: no muscle wasting NEURO: Awake; no lateralizing signs. SKIN: No Rash PSYCH; Flat affect Assessment & Plan Assessment/Plan (1) Sepsis: QUALIFIERS: Acute renal failure type: with acute tubular necrosis Sepsis acute organ dysfunction status: with acute organ dysfunction Sepsis type: sepsis due to unspecified organism Severe sepsis acute organ dysfunction type: acute renal failure Severe sepsis shock status: without septic shock Qualified Code(s): A41.9 - Sepsis, unspecified organism; R65.20 - Severe sepsis without septic shock; N17.0 - Acute kidney failure with tubular necrosis PLAN: Plan Patient is a 72-year-old lady presented with increasing lethargy workup was consistent with sepsis secondary to acute acute cystitis admitted to a monitoredbed for further management 1. Sepsis secondary to acute cystitis with E. coli ? Secondary to acute cystitis evidence of sepsis (patient febrile with temperature of 102.4, respiratory rate of 26,Pulse rate of 120, with evidence ofendorgan dysfunction acute kidney injury and lactic acidosis) admitted to monitored bed treatment initiated per protocol with aggressive IV fluid resuscitation after cultures have been sent. Patient response to therapy being monitored with blood pressure as well as serial lactic acid levels ? 01/28/2023 patient cultures so far positive for gram-negative rods in the blood ? 01/29/2023 patient blood cultures positive for E. coli 2. Acute cystitis with E. coli ? Patient started on cefepime cultures sent ? 01/29/2023; patient remains on appropriate antibiotic therapy 3. Acute kidney injury ? Creatinine on admission was 1.20. Patient baseline creatinine from November 2022 was 0.73 started on IV fluid with subsequent monitoring of electrolytes ordered ? 01/28/2023; patient on IV fluid with subsequent monitoring of electrolyte 4. Acute hypoxic respiratory failure ? This was evidenced by tachypnea as well as hypoxia secondary to fluid overloadpatient had to be placed on noninvasive ventilation BiPAP and subsequently transferred to the intensive care unit. Patient has since been weaned off BiPAPas of this a.m. 5. Elevated troponin ? Secondary to suspected myocardial injury from above patient started on heparindrip consult placed to cardiology also ordered 2D echo ? 01/29/2023 patient was seen in consultation by Dr. Saravia's notes and recommendations reviewed. 6. Diabetes mellitus type II -patient's oral hypoglycemics held. Placed on long acting insulin, Accu-Cheks a.c. and at bedtime and covered with sliding scale insulin 7. COPD ? Without acute exacerbation aerosol treatment as needed 8. Class III obesity with BMI of 49.9 ? Complicating care weight loss advised 9. Paroxysmal A-fib ? Patient was in sinus rhythm on admission 10. Obstructive sleep apnea ? Consistent use of PAP therapy encourage 11. Tobacco dependence - Counseled on cessation, offered nicotine patch for tobacco cravings 12. Depression with anxiety ? Patient is on escitalopram as well as bupropion continue 13. Restless leg syndrome ? Patient is on ropinirole continue 14. DVT prophylaxis - On enoxaparin Time critical Spent in the patient's overall evaluation,decision-making process,review of diagnostic data, adjustment of management, discussion with other providers, nursing nursing and ancillary staff involved in patient's care documentation, 50 minutes Charges/Coding Visit Charges Inpatient E&M: 81016 Subs Hosp L3 01/29/23 1105 <Electronically signed by Maximilian Kitchen MD> Cosigner Signature (if applicable): CC: ~ Signed [facility] Work Phone: [phone]) 206-630112-07-2023 Consult note Author Michael Saravia [facility] January 28, 2023 2:56pm Note Date/Time January 28, 2023 2 :56pm [facility] Medical Records Department [address] [place] [id number] Consultation - Cardiology 01/28/23 1450 MR#: [id number] Acct: [id number] Name: DAVID STREET Rep #:[id number] : 1950 72 From: Michael Saravia MD PCP: Dr. Richie Heredia, DO Status:ADM IN Location: ICU ICU01-1 Assessment & Plan Assessment/Plan (1) NSTEMI (non-ST elevated myocardial infarction): PLAN: Likely type II elevation in the setting of sepsis with febrile illness. Continue aspirin. Check echo. (2) Sepsis: QUALIFIERS: Sepsis type: sepsis due to unspecified organism Sepsis acute organ dysfunction status: with acute organ dysfunction Severe sepsis acute organ dysfunction type: acute renal failure Acute renal failure type: with acute tubular necrosis Severe sepsis shock status: without septic shock Qualified Code(s): A41.9 - Sepsis, unspecified organism; R65.20 - Severe sepsis without septic shock; N17.0 - Acute kidney failure with tubular necrosis PLAN: On antibiotics. Continue to manage as per internal medicine/critical care. (3) HTN (hypertension): QUALIFIERS: Hypertension type: essential hypertension Qualified Code(s): I10 - Essential (primary) hypertension PLAN: Monitor. (4) Diabetes mellitus type 2 in obese: (5) Paroxysmal atrial fibrillation: PLAN: Maintaining sinus rhythm. HPI Consult Data Date of Consult: 01/28/23 HPI Narrative Reason for Consultation: NSTEMI HPI Narrative: This lady has history significant for diabetes mellitus, dyslipidemia and paroxysmal atrial fibrillation. She was brought to the hospital with complaintsof confusion at home. Workup revealed cystitis. Diagnosis of acute cystitis with sepsis was made. As part of her workup, troponins were checked. These are noted to be elevated ruling her in for NSTEMI. Patient denies any chest pains or shortness of breath. Denies any palpitations. [facility] Medical History Diabetes mellitus type 2 in obese Hypercholesteremia Obstructive sleep apnea Osteoarthritis Palpitations Paroxysmal atrial fibrillation Peripheral vascular disease Vertigo Home Medications insulin glargine 100 unit/mL (3 mL) subcutaneous pen 100 units subcut QHS diabetes 03/14/14 [History Last Taken 11/14/19 23:00] oxycodone-acetaminophen 5 mg-325 mg tablet 1 tab PO Q6H PAIN 04/02/16 [History Last Taken 01/26/23] gabapentin 400 mg capsule 400 mg PO DAILY NEUROPATHY 11/15/19 [History Last Taken 01/26/23] aspirin 81 mg tablet,delayed release 81 mg PO DAILY HEART HEALTH #90 tabs 10/25/20 [Rx Last Taken 01/26/23] empagliflozin 25 mg tablet (Jardiance) 25 mg PO DAILY DIABETES 05/23/21 [History Last Taken 01/26/23] metformin 500 mg tablet,extended release 24 hr 1,000 mg PO DAILY DIABETES 05/23/21 [History Last Taken 01/26/23] ropinirole 0.5 mg tablet 0.5 - 1 mg PO QHS RESTLESS LEGS 05/23/21 [History Last Taken 01/26/23] albuterol sulfate 90 mcg/actuation aerosol inhaler 2 puff inhalation Q4H SHORTNESS OF BREATH 01/27/23 [History Last Taken 01/26/23] bumetanide 1 mg tablet 1 mg PO DAILY EDEMA 01/27/23 [History Last Taken 01/26/23] bupropion HCl 150 mg 24 hr tablet, extended release 150 mg PO DAILY DEPRESSION 01/27/23 [History Last Taken 01/26/23] calcium carbonate 600 mg-vitamin D3 10 mcg (400 unit) tablet 1 tab PO BID SUPPLEMENT 01/27/23 [History Last Taken 01/26/23] escitalopram oxalate 20 mg tablet 20 mg PO DAILY DEPRESSION 01/27/23 [History Last Taken 01/26/23] fluticasone fur. 100 mcg-umeclid 62.5 mcg-vilant 25 mcg inhalat.powder (Trelegy Ellipta) 1 inh inhalation DAILY SHORTNESS OF BREATH/WHEEZING 01/27/23 [History Last Taken 01/26/23] gabapentin 400 mg capsule 800 mg PO QPM NEUROPATHY 01/27/23 [History Last Taken 01/26/23] meloxicam 15 mg tablet 15 mg PO DAILY ARTHRITIS 01/27/23 [History Last Taken 01/26/23] pravastatin 40 mg tablet 40 mg PO QPM CHOLESTEROL 01/27/23 [History Last Taken 01/26/23] ropinirole 0.5 mg tablet 1 mg PO QPM PRN RESTLESS LEGS 01/27/23 [History Last Taken Unknown] Allergy/AdvReac Type Severity Reaction Status Date / Time ampicillin Allergy Hives Verified 01/27/23 08:31 codeine Allergy Hives Verified 01/27/23 08:31 meperidine HCl [From Demerol] Allergy Hives Verified 01/27/23 08:31 Penicillins [PCN] Allergy Hives Verified 01/27/23 08:31 propoxyphene napsylate Allergy Hives Verified 01/27/23 08:31 [From Darvocet-N] Family History Mother Heart disease Brother Heart disease Grandfather CVA (cerebral vascular accident) Grandmother Myocardial infarction Surgical History History of appendectomy History of cardiac catheterization History of hysterectomy History of knee replacement History of laparoscopic cholecystectomy (~11/2019) History of lumpectomy of both breasts History of tubal ligation Social History Smoking Status: Current every day smoker tobacco type: cigarettes alcohol intake: never substance use type: does not use caffeine: Yes Type: coffee Number of servings: 5 Physical Exam Narrative Appears comfortable. No apparent distress. Heart sounds 1 and 2 are noted. Decreased breath sounds both bases. Alert oriented x 3. No ankle edema. Risk Stratification Risk Stratification Applicable: No Objective Data Vital Signs: Vital Signs Temp Pulse Resp BP Pulse Ox O2 Del Method O2 Flow Rate 99.6 F H 88 18 142/62 H 97 Nasal Cannula 2 01/28/23 13:00 01/28/23 14:16 01/28/23 14:16 01/28/23 13:00 01/28/23 14:16 01/28/23 14:16 01/28/23 14:16 FiO2 55 01/28/23 07:00 Oxygen Flow Rate (L/min) 2 Oxygen Delivery Method Nasal Cannula Weight: 251 lb 1.704 oz Body Mass Index (BMI) 49.3 Intake & Output: Intake and Output for Last 24 Hours 01/26/23 01/27/23 01/28/23 23:59 23:59 23:59 Intake Total 5596.67 / 5596.67 2580 / 2580 Output Total 1840 / 1900 675 / 675 Balance 3756.67 / 3696.67 1905 / 1905 Lab / Micro Data 01/28/23 04:23 01/28/23 04:23 Labs: Laboratory Results - last 24 hr 01/27/23 18:45: Troponin I High Sens 6729 H* 01/27/23 20:21: Troponin I High Sens 6714 H* 01/27/23 22:01: POC Glucose 118 H 01/28/23 00:18: Troponin I High Sens 4907 H* 01/28/23 04:23: WBC 16.6 H, RBC 3.93 L, Hgb 11.9 L, Hct 38.2, MCV 97.2, MCH 30.3, MCHC 31.2 L, RDW Std Deviation 55.7 H, RDW Coeff of Penny 15.5 H, Plt Count 196, MPV 12.0, Immature Gran % (Auto) 0.500, Neut % (Auto) 78.3 H, Lymph % (Auto) 12.9 L, [place] % (Auto) 7.5, Eos % (Auto) 0.4, Baso % (Auto) 0.4, Absolute Neuts (auto) 13.0 H, Absolute Lymphs (auto) 2.14, Nucleated RBC % 0, Sodium 141,Potassium 4.6, Chloride 111 H, Carbon Dioxide 27.0, Anion Gap 3 L, BUN 21 H, Creatinine 1.09 H, Estim Creat Clear Calc 85.12, Est GFR (MDRD) Af Amer 64, Est GFR (MDRD) Non-Af 53 L, BUN/Creatinine Ratio 19.3, Glucose 102, Calcium 7.6 L, Phosphorus 3.7, Magnesium 2.0 01/28/23 07:52: POC Glucose 38 L* 01/28/23 08:20: POC Glucose 65 L 01/28/23 08:52: POC Glucose 91 01/28/23 10:40: PT 16.0 H, INR 1.3, APTT 32.2 01/28/23 13:20: POC Glucose 95 Micro: Microbiology 01/27/23 08:51 Urine Catheter - Das Urine Culture - Preliminary Gram negative gregg Gram negative gregg#2 01/27/23 08:56 Blood Culture (Wb) - Venous Blood Culture - Preliminary Gram negative gregg 01/27/23 10:54 Mucosa - Nasopharyngeal Respiratory Panel (PCR) - Final ABG Data ABG results: ABG 01/27/23 21:32 Specimen Type ART Sample Site R Radial pH 7.36 Bicarbonate Actual 24.0 Total CO2 25 Base Excess -2 O2 Saturation 96 O2 % 35.0 ABG pCO2 42.5 ABG pO2 86 Kadeem Test Positive Respiration Rate 12 O2 Delivery Device BiPAP Vent Mode Not entered POC PEEP 10 Cardiology Labs/Tests 01/27/23 21:32: pH 7.36, Bicarbonate Actual 24.0, Base Excess -2, O2 Saturation 96, ABG pCO2 42.5, ABG pO2 86, Kadeem Test Positive 01/28/23 04:23: WBC 16.6 H, RBC 3.93 L, Hgb 11.9 L, Hct 38.2, MCV 97.2, MCH 30.3, MCHC 31.2 L, Plt Count 196, MPV 12.0, Immature Gran % (Auto) 0.500, Neut %(Auto) 78.3 H, Lymph % (Auto) 12.9 L, [place] % (Auto) 7.5, Eos % (Auto) 0.4, Baso % (Auto) 0.4, Absolute Neuts (auto) 13.0 H, Nucleated RBC % 0, Sodium 141, Potassium 4.6, Chloride 111 H, Carbon Dioxide 27.0, Anion Gap 3 L, BUN 21 H, Creatinine 1.09 H, Est GFR (MDRD) Af Amer 64, Est GFR (MDRD) Non-Af 53 L, BUN/Creatinine Ratio 19.3, Glucose 102, Calcium 7.6 L, Phosphorus 3.7, Magnesium2.0 01/28/23 10:40: PT 16.0 H, INR 1.3, APTT 32.2 Rhythm: EKG: ECHO: Stress Test: Cardiac Cath: PCI: CT Surgery: Holter monitor: EPS: PPM: CXR: Chest CT Scan: 01/28/23 1456 <Electronically signed by Michael Saravia MD> Cosigner Signature (if applicable): CC: Dr. Michael Saravia MD; Dr. Darius Ryan DO; Dr. Richie Heredia DO~ Signed [facility] Work Phone: [phone]) 911-761012-07-2023 Progress note Author Maximilian Kitchen [facility] January 28, 2023 9:18am Note Date/Time January 28, 2023 9 :11am [facility] Medical Records Department [address] [place] [id number] Progress Note - Hospitalist 01/28/23 0911 MR#: [id number] Acct: [id number] Name: DAVID STREET Rep #:[id number] : 1950 72 From: Maximilian Kitchen MD PCP: Dr. Richie Heredia DO Status:ADM IN Location: ICU ICU01-1 Reason for Visit Reason for Visit: Diagnoses Sepsis, unspecified organism (01/27/23) Acute kidney failure with tubular necrosis (01/27/23) Severe sepsis without septic shock (01/27/23) Subjective Subjective Patient went into respiratory distress thought to be secondary to aggressive fluid resuscitation. Patient did receive Lasix placed on BiPAP and transferred to the intensive care unit. Patient troponin peaked at 6000. Objective Data Objective Data Vital Signs: Vital Signs Temp Pulse Resp BP Pulse Ox O2 Del Method O2 Flow Rate 98.7 F 103 H 22 H 125/63 H 96 Nasal Cannula 5 01/28/23 08:00 01/28/23 08:00 01/28/23 08:00 01/28/23 08:00 01/28/23 08:40 01/28/23 08:40 01/28/23 08:40 FiO2 55 01/28/23 07:00 Oxygen Flow Rate (L/min) 5 Oxygen Delivery Method Nasal Cannula Weight: 113.9 kg Body Mass Index (BMI) 49.3 Intake & Output: Intake and Output for Last 24 Hours 01/26/23 01/27/23 01/28/23 23:59 23:59 23:59 Intake Total 5596.67 / 5596.67 1000 / 1000 Output Total 1840 / 1900 225 / 225 Balance 3756.67 / 3696.67 775 / 775 Lab / Micro Data 01/28/23 04:23 01/28/23 04:23 Labs: Laboratory Results - last 24 hr 01/27/23 08:51: Urine Color Yellow, Urine Clarity Sl. Cloudy, Urine pH 7.0, Ur Specific [place] 1.005, Urine Protein 30 H, Urine Glucose (UA) 1000 H, Urine Ketones Negative, Urine Occult Blood 50 H, Urine Nitrite Negative, Urine Bilirubin Negative, Urine Urobilinogen Normal, Ur Leukocyte Esterase 25 H, Urine RBC0-5 SEEN, Urine WBC 0-5 SEEN, Ur Squamous Epith Cells 10-25 SEEN, Urine Bacteria2+, Urine Mucus 0 SEEN 01/27/23 08:56: WBC 10.8, RBC 4.78, Hgb 14.4, Hct 45.3, MCV 94.8, MCH 30.1, MCHC31.8 L, RDW Std Deviation 53.7 H, RDW Coeff of Penny 15.2 H, Plt Count 200, MPV 11.6, Immature Gran % (Auto) 0.400, Neut % (Auto) 95.3 H, Lymph % (Auto) 3.0 L, [place] % (Auto) 0.7, Eos % (Auto) 0.3, Baso % (Auto) 0.3, Absolute Neuts (auto) 10.3 H, Absolute Lymphs (auto) 0.32 L, Nucleated RBC % 0, Differential Comment COMMENT, PT 13.3, INR 1.0, APTT 25.3, Sodium 135 L, Potassium 4.5, Chloride 104,Carbon Dioxide 26.0, Anion Gap 5, BUN 16, Creatinine 1.20 H, Estim Creat Clear Calc 78.20, Est GFR (MDRD) Af Amer 57 L, Est GFR (MDRD) Non-Af 47 L, BUN/Creatinine Ratio 13.3, Glucose 150 H, Lactic Acid 2.2 H*, Calcium 9.2, TotalBilirubin 0.80, Direct Bilirubin 0.19, AST 10 L, ALT 13, Alkaline Phosphatase 92, Troponin I High Sens 852 H*, Total Protein 6.9, Albumin 3.3, Globulin 3.6, Lipase 25 01/27/23 10:57: Troponin I High Sens 1612 H* 01/27/23 13:05: Lactic Acid 1.3 01/27/23 18:45: Troponin I High Sens 6729 H* 01/27/23 20:21: Troponin I High Sens 6714 H* 01/27/23 22:01: POC Glucose 118 H 01/28/23 00:18: Troponin I High Sens 4907 H* 01/28/23 04:23: WBC 16.6 H, RBC 3.93 L, Hgb 11.9 L, Hct 38.2, MCV 97.2, MCH 30.3, MCHC 31.2 L, RDW Std Deviation 55.7 H, RDW Coeff of Penny 15.5 H, Plt Count 196, MPV 12.0, Immature Gran % (Auto) 0.500, Neut % (Auto) 78.3 H, Lymph % (Auto) 12.9 L, [place] % (Auto) 7.5, Eos % (Auto) 0.4, Baso % (Auto) 0.4, Absolute Neuts (auto) 13.0 H, Absolute Lymphs (auto) 2.14, Nucleated RBC % 0, Sodium 141,Potassium 4.6, Chloride 111 H, Carbon Dioxide 27.0, Anion Gap 3 L, BUN 21 H, Creatinine 1.09 H, Estim Creat Clear Calc 85.12, Est GFR (MDRD) Af Amer 64, Est GFR (MDRD) Non-Af 53 L, BUN/Creatinine Ratio 19.3, Glucose 102, Calcium 7.6 L, Phosphorus 3.7, Magnesium 2.0 Micro: Microbiology 01/27/23 08:56 Blood Culture (Wb) - Venous Blood Culture - Preliminary Gram negative gregg 01/27/23 10:54 Mucosa - Nasopharyngeal Respiratory Panel (PCR) - Final 01/27/23 08:51 Nasal Secretion SARS-CoV-2 & FLU Antigen (Rapid) - Final ABG Data ABG results: ABG 01/27/23 21:32 Specimen Type ART Sample Site R Radial pH 7.36 Bicarbonate Actual 24.0 Total CO2 25 Base Excess -2 O2 Saturation 96 O2 % 35.0 ABG pCO2 42.5 ABG pO2 86 Kadeem Test Positive Respiration Rate 12 O2 Delivery Device BiPAP Vent Mode Not entered POC PEEP 10 Radiography Diagnostic Testing: Radiology Impression Brain CT 01/27/23 08:39 IMPRESSION: Chronic involutional changes of the brain. Electronically Signed: Jesse Huntley MD at 9:28 EST , Chest X-Ray 01/27/23 09:12 IMPRESSION: Stable mild increased markings at the lung bases. No acute abnormality is seen. Electronically Signed: Jesse Huntley MD at 9:41 EST , Chest CTA 01/27/23 12:13 IMPRESSION: No evidence of pulmonary embolism. Mild degree of emphysematous changes with scarring and bronchiectasis as described. Electronically Signed: Jesse Huntley MD at 12:47 EST , Physical Exam Narrative GENERAL: Dyspneic at rest HEENT: Atraumatic; normocephalic EYES; Anicteric, Normal Conjunctiva NECK; supple, normal thyroid, RESPIRATORY: Diminished to auscultation CARDIOVASCULAR: Regular S1 S2, GI: soft, normoactive bowel sounds, : No Renal angle tenderness; EXTREMITIES: edema, no clubbing, MUSCULOSKELETAL: no muscle wasting NEURO: Awake; no lateralizing signs. SKIN: No Rash PSYCH; Flat affect Assessment & Plan Assessment/Plan (1) Sepsis: QUALIFIERS: Acute renal failure type: with acute tubular necrosis Sepsis acute organ dysfunction status: with acute organ dysfunction Sepsis type: sepsis due to unspecified organism Severe sepsis acute organ dysfunction type: acute renal failure Severe sepsis shock status: without septic shock Qualified Code(s): A41.9 - Sepsis, unspecified organism; R65.20 - Severe sepsis without septic shock; N17.0 - Acute kidney failure with tubular necrosis PLAN: Plan Patient is a 72-year-old lady presented with increasing lethargy workup was consistent with sepsis secondary to acute acute cystitis admitted to a monitoredbed for further management 1. Sepsis ? Secondary to acute cystitis evidence of sepsis (patient febrile with temperature of 102.4, respiratory rate of 26,Pulse rate of 120, with evidence ofendorgan dysfunction acute kidney injury and lactic acidosis) admitted to monitored bed treatment initiated per protocol with aggressive IV fluid resuscitation after cultures have been sent. Patient response to therapy being monitored with blood pressure as well as serial lactic acid levels ? 01/28/2023 patient cultures so far positive for gram-negative rods in the blood 2. Acute cystitis ? Patient started on cefepime cultures sent 3. Acute kidney injury ? Creatinine on admission was 1.20. Patient baseline creatinine from November 2022 was 0.73 started on IV fluid with subsequent monitoring of electrolytes ordered ? 01/28/2023; patient on IV fluid with subsequent monitoring of electrolyte 4. Acute hypoxic respiratory failure ? This was evidenced by tachypnea as well as hypoxia secondary to fluid overloadpatient had to be placed on noninvasive ventilation BiPAP and subsequently transferred to the intensive care unit. Patient has since been weaned off BiPAPas of this a.m. 5. Elevated troponin ? Secondary to suspected myocardial injury from above patient started on heparindrip consult placed to cardiology also ordered 2D echo 6. Diabetes mellitus type II -patient's oral hypoglycemics held. Placed on long acting insulin, Accu-Cheks a.c. and at bedtime and covered with sliding scale insulin 7. COPD ? Without acute exacerbation aerosol treatment as needed 8. Class III obesity with BMI of 49.9 ? Complicating care weight loss advised 9. Paroxysmal A-fib ? Patient was in sinus rhythm on admission 10. Obstructive sleep apnea ? Consistent use of PAP therapy encourage 11. Tobacco dependence - Counseled on cessation, offered nicotine patch for tobacco cravings 12. Depression with anxiety ? Patient is on escitalopram as well as bupropion continue 13. Restless leg syndrome ? Patient is on ropinirole continue 14. DVT prophylaxis - On enoxaparin Time critical Spent in the patient's overall evaluation,decision-making process,review of diagnostic data, adjustment of management, discussion with other providers, nursing nursing and ancillary staff involved in patient's care documentation, 55 minutes Charges/Coding Procedures Hospitalists Procedures: 77091 Critial Care 1st Hr 01/28/23 0918 <Electronically signed by Maximilian Kitchen MD> Cosigner Signature (if applicable): CC: ~ Signed [facility] Work Phone: 1(805) 151-660512-07-2023 Discharge summary Author Darius Ryan [facility] January 28, 2023 8:30am Note Date/Time January 27, 2023 8 :51am [facility] Medical Records Department [address] [facility] [place] [address] Emergency Department Summary 01/27/23 MR#: [id number] Acct: [id number] Name: DAVID STREET Rep #:[id number] : 1950 72 From: Darius Charlton PCP: Dr. Richie Heredia, DO Status:ADM IN Location: ICU ICU01-1 HPI History of Present Illness Chief Complaint: Unresponsive Informant: family and EMS Narrative Narrative: 72-year-old female brought to the emergency department with a chief complaint ofbeing unresponsive. Family states the patient seemed fine last evening. She cooked dinner and went to bed. Family notes that around 0300 hrs. the patient was noted to have nausea and took Zofran. When they checked on her this morningshe was unresponsive. They noted that she did not have her CPAP on. They notedthat her pulse ox was in the mid 80s. EMS was called. They confirm some hypoxia and administer supplemental oxygen. They note that she feels very warm. She is a long-term smoker but does not wear home oxygen. PFSH [facility] Medical History Diabetes mellitus type 2 in obese Hypercholesteremia Obstructive sleep apnea Osteoarthritis Palpitations Paroxysmal atrial fibrillation Peripheral vascular disease Vertigo Home Medications insulin glargine 100 unit/mL (3 mL) subcutaneous pen 100 units subcut QHS diabetes 03/14/14 [History Last Taken 09/22/20 23:00] oxycodone-acetaminophen 5 mg-325 mg tablet 1 tab PO Q6H PAIN 04/02/16 [History Last Taken 01/26/23] gabapentin 400 mg capsule 400 mg PO DAILY NEUROPATHY 11/15/19 [History Last Taken 01/26/23] aspirin 81 mg tablet,delayed release 81 mg PO DAILY HEART HEALTH #90 tabs 10/25/20 [Rx Last Taken 01/26/23] empagliflozin 25 mg tablet (Jardiance) 25 mg PO DAILY DIABETES 05/23/21 [History Last Taken 01/26/23] metformin 500 mg tablet,extended release 24 hr 1,000 mg PO DAILY DIABETES 05/23/21 [History Last Taken 01/26/23] ropinirole 0.5 mg tablet 0.5 - 1 mg PO QHS RESTLESS LEGS 05/23/21 [History Last Taken 01/26/23] albuterol sulfate 90 mcg/actuation aerosol inhaler 2 puff inhalation Q4H SHORTNESS OF BREATH 01/27/23 [History Last Taken 01/26/23] bumetanide 1 mg tablet 1 mg PO DAILY EDEMA 01/27/23 [History Last Taken 01/26/23] bupropion HCl 150 mg 24 hr tablet, extended release 150 mg PO DAILY DEPRESSION 01/27/23 [History Last Taken 01/26/23] calcium carbonate 600 mg-vitamin D3 10 mcg (400 unit) tablet 1 tab PO BID SUPPLEMENT 01/27/23 [History Last Taken 01/26/23] escitalopram oxalate 20 mg tablet 20 mg PO DAILY DEPRESSION 01/27/23 [History Last Taken 01/26/23] fluticasone fur. 100 mcg-umeclid 62.5 mcg-vilant 25 mcg inhalat.powder (Trelegy Ellipta) 1 inh inhalation DAILY SHORTNESS OF BREATH/WHEEZING 01/27/23 [History Last Taken 01/26/23] gabapentin 400 mg capsule 800 mg PO QPM NEUROPATHY 01/27/23 [History Last Taken 01/26/23] meloxicam 15 mg tablet 15 mg PO DAILY ARTHRITIS 01/27/23 [History Last Taken 01/26/23] pravastatin 40 mg tablet 40 mg PO QPM CHOLESTEROL 01/27/23 [History Last Taken 01/26/23] ropinirole 0.5 mg tablet 1 mg PO QPM PRN RESTLESS LEGS 01/27/23 [History Last Taken Unknown] Allergy/AdvReac Type Severity Reaction Status Date / Time ampicillin Allergy Hives Verified 01/27/23 08:31 codeine Allergy Hives Verified 01/27/23 08:31 meperidine HCl [From Demerol] Allergy Hives Verified 01/27/23 08:31 Penicillins [PCN] Allergy Hives Verified 01/27/23 08:31 propoxyphene napsylate Allergy Hives Verified 01/27/23 08:31 [From Darvocet-N] Family History Mother Heart disease Brother Heart disease Grandfather CVA (cerebral vascular accident) Grandmother Myocardial infarction Surgical History History of appendectomy History of cardiac catheterization History of hysterectomy History of knee replacement History of laparoscopic cholecystectomy (~11/2019) History of lumpectomy of both breasts History of tubal ligation Social History Smoking Status: Current every day smoker tobacco type: cigarettes alcohol intake: never substance use type: does not use caffeine: Yes Type: coffee Number of servings: 5 ROS ROS ED Review of Systems ROS Unobtainable: due to mental status EXAM Physical Exam Const Vital Signs: 01/27/23 08:31 01/27/23 08:39 01/27/23 08:34 Temperature 99.8 F H 99.8 F H Temperature Source Temporal Temporal Pulse Rate 119 H 119 H Respiratory Rate 26 H 26 H Blood Pressure 155/84 H 155/84 H Blood Pressure Mean 107 107 Pulse Ox 100 100 Oxygen Delivery Method Non-Rebreather Non-Rebreather Non-Rebreather Oxygen Flow Rate (L/min) 01/27/23 09:34 01/27/23 09:31 01/27/23 10:31 Temperature 102.4 F H Temperature Source Core Pulse Rate 115 H 116 H 104 H Respiratory Rate 23 H 23 H 23 H Blood Pressure 103/66 124/69 H 88/57 L Blood Pressure Mean 78 87 67 Pulse Ox 97 98 96 Oxygen Delivery Method Venturi Mask Room Air Nasal Cannula Oxygen Flow Rate (L/min) 01/27/23 11:23 01/27/23 11:32 Temperature 101 F H 100.9 F H Temperature Source Core Pulse Rate 97 97 Respiratory Rate 24 H 17 Blood Pressure 103/55 L 106/57 L Blood Pressure Mean 71 73 Pulse Ox 97 99 Oxygen Delivery Method Nasal Cannula Oxygen Flow Rate (L/min) 4 Positive well nourished, well developed and obese General Appearance ED: well developed Nutritional Appearance: obese HEENT Reports normocephalic, head/scalp atraumatic and moist mucous membranes Eyes PERRL and EOMs intact bilaterally Eyes Narrative: Pupils 4-2 bilaterally Neck no lymphadenopathy, supple and no JVD Neck Narrative: The neck is supple with no meningeal signs Resp normal respiratory effort and clear to auscultation bilaterally Cardio regular rate, regular rhythm and no murmurs Rate: tachycardic GI normal to inspection, nondistended, normoactive bowel sounds and non-tender Palpation: soft Back/Spine no CVA tenderness and normal ROM Extremity normal to inspection General Extremety ED: Yes edema General Extremity: edema bilateral (Mild bilateral lower extremity edema) lower extremity Neuro CN's II-XII intact bilaterally Neuro Narrative: Patient is able to communicate but is lethargic. She notes that she needs to use the bathroom. Sensorium / Orientation: lethargic Motor Exam: strength 5/5 throughout Psych Psych Narrative: Unable to assess Skin no rashes or lesions noted and no wounds Sepsis Attestation Sepsis Alert: Yes Sepsis Attestation: Agree w/Sepsis Date exam was performed: 01/27/23 Time exam was performed: 11:30 Possible Source of Sepsis: Unknown Sepsis Organ Dysfunction Criteria Present: Lactic Acid > 2 mmol/L and New/Unexplained change in mental status MDM MDM MDM Narrative Medical decision making narrative: Broad-based differential. Pulmonary infection bacteremia UTI ACS. temperaturesensitive Das was placed. Her temperature was 102.4 and she received Tylenol. She received supplemental oxygen. Mental status has gradually been improving. White count 10.8 with 95.3 neutrophils. Lactic acid slightly elevated at 2.2. This is probably multifactorial. She is on metformin and she has been hypoxic. I think this is most likely the cause of the elevated lactic acid. She has not had hypotension. Troponin is elevated did at 852. Patient received a dose of aspirin. EKG is nonischemic in nature. BMP showed a creatinine 1.2 with a BUN of 18. Liver and normal. Urinalysis 0-5 white is 10-25 epithelial cells. Negative nitrates 2+ bacteria. Most likely contaminant but no overt infection. This was sent for culture. Blood cultures were also obtained. CT the brain demonstrates no acute findings. My independent interpretation of the chest x-ray is no definitive infiltrate. Normal mediastinal silhouette. Patient had some lower than expected blood pressures but still greater than mean of 65. It is being taken off of a forearm cuff. We will attempt a upper arm reading but due to the patient's body habitus this may be difficult. We will continue to provide IV fluids. At this point I am think that the patient's mental status isimproving. I am not convinced that she needs pressors at this point. As she continues to improve I am not convinced that large volume fluid resuscitation isnecessarily needed. We will continue with hydration with frequent reassessments. Her second troponin came back elevated more so than the first. We are going to obtain a CTA. History & Record Review Discussion w/independent historian: EMS personnel, Patient and Family Additional record(s) reviewed:: Prior inpatient record, Prior ED visit and Priorlabs Lab Data Attestation: I reviewed the patient's lab results. Labs: Laboratory Results - last 24 hr 01/27/23 01/27/23 01/27/23 08:51 08:56 10:57 WBC 10.8 RBC 4.78 Hgb 14.4 Hct 45.3 MCV 94.8 MCH 30.1 MCHC 31.8 L RDW Std Deviation 53.7 H RDW Coeff of Penny 15.2 H Plt Count 200 MPV 11.6 Immature Gran % (Auto) 0.400 Neut % (Auto) 95.3 H Lymph % (Auto) 3.0 L [place] % (Auto) 0.7 Eos % (Auto) 0.3 Baso % (Auto) 0.3 Absolute Neuts (auto) 10.3 H Absolute Lymphs (auto) 0.32 L Nucleated RBC % 0 Differential Comment COMMENT PT 13.3 INR 1.0 APTT 25.3 Sodium 135 L Potassium 4.5 Chloride 104 Carbon Dioxide 26.0 Anion Gap 5 BUN 16 Creatinine 1.20 H Estim Creat Clear Calc 78.20 Est GFR (MDRD) Af Amer 57 L Est GFR (MDRD) Non-Af 47 L BUN/Creatinine Ratio 13.3 Glucose 150 H Lactic Acid 2.2 H* Calcium 9.2 Total Bilirubin 0.80 Direct Bilirubin 0.19 AST 10 L ALT 13 Alkaline Phosphatase 92 Troponin I High Sens 852 H* 1612 H* Total Protein 6.9 Albumin 3.3 Globulin 3.6 Lipase 25 Urine Color Yellow Urine Clarity Sl. Cloudy Urine pH 7.0 Ur Specific [place] 1.005 Urine Protein 30 H Urine Glucose (UA) 1000 H Urine Ketones Negative Urine Occult Blood 50 H Urine Nitrite Negative Urine Bilirubin Negative Urine Urobilinogen Normal Ur Leukocyte Esterase 25 H Urine RBC 0-5 SEEN Urine WBC 0-5 SEEN Ur Squamous Epith Cells 10-25 SEEN Urine Bacteria 2+ Urine Mucus 0 SEEN Radiography Diagnostic Testing: Clinical Impression(s) from Imaging Studies Brain CT 01/27/23 08:39 IMPRESSION: Chronic involutional changes of the brain. Electronically Signed: Jesse Huntley MD at 9:28 EST , Chest X-Ray 01/27/23 09:12 IMPRESSION: Stable mild increased markings at the lung bases. No acute abnormality is seen. Electronically Signed: Jesse Huntley MD at 9:41 EST , EKG Initial EKG: Attestation: I personally reviewed and interpreted this EKG as follows: Comments: Sinus tachycardia ventricular rate of 117 bpm. No definitive features of ACS noted. Follow-up EKG: Attestation: I personally reviewed and interpreted this EKG as follows: Comments: Normal sinus rhythm ventricular rate of 98 bpm. No definitive features of ACS noted Management Discussion w/another healthcare provider: Hospitalist Discharge Plan Dx/Rx/DC Orders Clinical Impression: Obstructive sleep apnea, Morbid obesity, Diabetes mellitus type 2 in obese, Hypoxemia, Elevated troponin, Altered mental status, Acute febrile illness Disposition Disposition: Acute Care Hospital [facility] What to do if you have Problems For any increased pain, shortness of breath, bleeding, nausea or vomiting, chestpain, or any unexpected problems, contact your Primary Care Provider. Call [facility] ([phone]) or report to the closest Emergency Room. Call 911 if necessary. 01/28/23 0830 <Electronically signed by Darius Ryan DO> Cosigner Signature (if applicable): CC: Dr. Richie Heredia DO ~ Signed [facility] Work Phone: 1(148) 452-663512-06-2023 Progress note Author Maximilian [facility] January 27, 2023 3:38pm Note Date/Time January 27, 2023 3 :39pm [facility] Medical Records Department [address] [place] [address] Progress Note - Sepsis 01/27/23 1537 MR#: [id number] Acct: [id number] Name: DAVID STREET Rep #:[id number] : 1950 72 From: Maximilian Kitchen MD PCP: Dr. Richie Heredia DO Status:ADM IN Location: [place] [address] Sepsis Attestation Sepsis Alert: Yes Date exam was performed: 01/27/23 Time exam was performed: 11:53 Possible Source of Sepsis: Genitourinary Sepsis Organ Dysfunction Criteria Present: SBP < 90 mmHg or MAP < 65 mmHg and Lactic Acid > 2 mmol/L Fluid Resuscitation Fluid Resuscitation ordered: 30 ml/kg fluid bolus ordered Sepsis Note Date exam was performed: 01/27/23 Time exam was performed: 15:38 Response to fluids: Fluid responsive hypotension 01/27/23 1538 <Electronically signed by Maximilian Kitchen MD> Cosigner Signature (if applicable): CC: ~ Signed [facility] Work Phone: 1(317) 202-675212-06-2023 Procedure [facility] 01-27-2023 History and physical note Author Maximilian [facility] January 27, 2023 12:14pm Note Date/Time January 27, 2023 1 1:26am [facility] Medical Records Department [address] [place] [address] H&P Exam - Hospitalist 01/27/23 1126 MR#: [id number] Acct: [id number] Name: DAVID STREET Rep #:[id number] : 1950 72 From: Maximilian Kitchen MD PCP: Dr. Richie Heredia, DO Status:REG ER Location: ED HPI - General General Date of Admission: 01/27/23 Date of Service: 01/27/23 Chief Complaint: Generalized weakness HPI Narrative DAVID STREET, is a 72 F who presents with past medical history significant diabetes mellitus type 2, COPD who was brought to the emergency department by the family. Patient was apparently in her usual state of health the day prior to admission however on the morning of her presentation patient was found by family not to be acting right. Patient was reported to be confused unable to recognize family members who were with her. Her level of sensorium continued toworsen resulting in family calling EMS. Patient was brought to the emergency department an assessment of sepsis secondary to acute cystitis was made treatment initiated per protocol patient admitted to intensive care unit for further management [facility] Medical History Diabetes mellitus type 2 in obese Hypercholesteremia Obstructive sleep apnea Osteoarthritis Palpitations Paroxysmal atrial fibrillation Peripheral vascular disease Vertigo Home Medications insulin glargine 100 unit/mL (3 mL) subcutaneous pen 100 units subcut QHS diabetes 03/14/14 [History Last Taken 11/14/19 23:00] oxycodone-acetaminophen 5 mg-325 mg tablet 1 tab PO Q6H PAIN 04/02/16 [History Last Taken 01/26/23] gabapentin 400 mg capsule 400 mg PO DAILY NEUROPATHY 11/15/19 [History Last Taken 01/26/23] aspirin 81 mg tablet,delayed release 81 mg PO DAILY HEART HEALTH #90 tabs 10/25/20 [Rx Last Taken 01/26/23] empagliflozin 25 mg tablet (Jardiance) 25 mg PO DAILY DIABETES 05/23/21 [History Last Taken 01/26/23] metformin 500 mg tablet,extended release 24 hr 1,000 mg PO DAILY DIABETES 05/23/21 [History Last Taken 01/26/23] ropinirole 0.5 mg tablet 0.5 - 1 mg PO QHS RESTLESS LEGS 05/23/21 [History Last Taken 01/26/23] albuterol sulfate 90 mcg/actuation aerosol inhaler 2 puff inhalation Q4H SHORTNESS OF BREATH 01/27/23 [History Last Taken 01/26/23] bumetanide 1 mg tablet 1 mg PO DAILY EDEMA 01/27/23 [History Last Taken 01/26/23] bupropion HCl 150 mg 24 hr tablet, extended release 150 mg PO DAILY DEPRESSION 01/27/23 [History Last Taken 01/26/23] calcium carbonate 600 mg-vitamin D3 10 mcg (400 unit) tablet 1 tab PO BID SUPPLEMENT 01/27/23 [History Last Taken 01/26/23] escitalopram oxalate 20 mg tablet 20 mg PO DAILY DEPRESSION 01/27/23 [History Last Taken 01/26/23] fluticasone fur. 100 mcg-umeclid 62.5 mcg-vilant 25 mcg inhalat.powder (Trelegy Ellipta) 1 inh inhalation DAILY SHORTNESS OF BREATH/WHEEZING 01/27/23 [History Last Taken 01/26/23] gabapentin 400 mg capsule 800 mg PO QPM NEUROPATHY 01/27/23 [History Last Taken 01/26/23] meloxicam 15 mg tablet 15 mg PO DAILY ARTHRITIS 01/27/23 [History Last Taken 01/26/23] pravastatin 40 mg tablet 40 mg PO QPM CHOLESTEROL 01/27/23 [History Last Taken 01/26/23] ropinirole 0.5 mg tablet 1 mg PO QPM PRN RESTLESS LEGS 01/27/23 [History Last Taken Unknown] Allergy/AdvReac Type Severity Reaction Status Date / Time ampicillin Allergy Hives Verified 01/27/23 08:31 codeine Allergy Hives Verified 01/27/23 08:31 meperidine HCl [From Demerol] Allergy Hives Verified 01/27/23 08:31 Penicillins [PCN] Allergy Hives Verified 01/27/23 08:31 propoxyphene napsylate Allergy Hives Verified 01/27/23 08:31 [From Darvocet-N] Family History Mother Heart disease Brother Heart disease Grandfather CVA (cerebral vascular accident) Grandmother Myocardial infarction Surgical History History of appendectomy History of cardiac catheterization History of hysterectomy History of knee replacement History of laparoscopic cholecystectomy (~11/2019) History of lumpectomy of both breasts History of tubal ligation Social History Smoking Status: Current every day smoker tobacco type: cigarettes alcohol intake: never substance use type: does not use caffeine: Yes Type: coffee Number of servings: 5 ROS ROS Narrative GENERAL: Generalized weakness HEENT: denies headache, sinus congestion, RESPIRATORY: denies cough, sputum production, CARDIAC: denies chest pain, palpitations, orthopnea, GASTROINTESTINAL: denies abdominal pain, nausea, GENITOURINARY: denies dysuria, urgency, frequency, EXTREMITY: denies swelling MUSCULOSKELETAL: denies current joint pain or tenderness NEUROLOGIC: Forgetfulness HEMATOLOGIC: denies easy bruising and/or hemorrhage INTEGUMENT: denies rashes PSYCHIATRIC: denies suicidal or homicidal ideation Vital Signs Vital Signs Vital Signs: 01/27/23 08:31 01/27/23 08:39 01/27/23 08:34 Temperature 99.8 F H 99.8 F H Temperature Source Temporal Temporal Pulse Rate 119 H 119 H Respiratory Rate 26 H 26 H Blood Pressure 155/84 H 155/84 H Blood Pressure Mean 107 107 Pulse Ox 100 100 Oxygen Delivery Method Non-Rebreather Non-Rebreather Non-Rebreather Oxygen Flow Rate (L/min) 01/27/23 09:34 01/27/23 09:31 01/27/23 10:31 Temperature 102.4 F H Temperature Source Core Pulse Rate 115 H 116 H 104 H Respiratory Rate 23 H 23 H 23 H Blood Pressure 103/66 124/69 H 88/57 L Blood Pressure Mean 78 87 67 Pulse Ox 97 98 96 Oxygen Delivery Method Venturi Mask Room Air Nasal Cannula Oxygen Flow Rate (L/min) 01/27/23 11:23 Temperature 101 F H Temperature Source Core Pulse Rate 97 Respiratory Rate 24 H Blood Pressure 103/55 L Blood Pressure Mean 71 Pulse Ox 97 Oxygen Delivery Method Nasal Cannula Oxygen Flow Rate (L/min) 4 Weight Weight: 115.2 kg Body Mass Index (BMI) 49.8 Physical Exam Narrative GENERAL: Somewhat lethargic HEENT: Atraumatic; normocephalic EYES; Anicteric, Normal Conjunctiva NECK; supple, normal thyroid, RESPIRATORY: Diminished to auscultation CARDIOVASCULAR: Regular S1 S2, GI: soft, normoactive bowel sounds, : No Renal angle tenderness; EXTREMITIES: No edema, no clubbing, MUSCULOSKELETAL: no muscle wasting NEURO: Awake; no lateralizing signs. SKIN: No Rash PSYCH; Flat affect Results Lab / Micro Data 01/27/23 08:56 01/27/23 08:56 Labs: Laboratory Results - last 24 hr 01/27/23 08:51: Urine Color Yellow, Urine Clarity Sl. Cloudy, Urine pH 7.0, Ur Specific [place] 1.005, Urine Protein 30 H, Urine Glucose (UA) 1000 H, Urine Ketones Negative, Urine Occult Blood 50 H, Urine Nitrite Negative, Urine Bilirubin Negative, Urine Urobilinogen Normal, Ur Leukocyte Esterase 25 H, UrineRBC 0-5 SEEN, Urine WBC 0-5 SEEN, Ur Squamous Epith Cells 10-25 SEEN, Urine Bacteria 2+, Urine Mucus 0 SEEN 01/27/23 08:56: WBC 10.8, RBC 4.78, Hgb 14.4, Hct 45.3, MCV 94.8, MCH 30.1, MCHC31.8 L, RDW Std Deviation 53.7 H, RDW Coeff of Penny 15.2 H, Plt Count 200, MPV 11.6, Immature Gran % (Auto) 0.400, Neut % (Auto) 95.3 H, Lymph % (Auto) 3.0 L, [place] % (Auto) 0.7, Eos % (Auto) 0.3, Baso % (Auto) 0.3, Absolute Neuts (auto) 10.3 H, Absolute Lymphs (auto) 0.32 L, Nucleated RBC % 0, Differential Comment COMMENT, PT 13.3, INR 1.0, APTT 25.3, Sodium 135 L, Potassium 4.5, Chloride 104,Carbon Dioxide 26.0, Anion Gap 5, BUN 16, Creatinine 1.20 H, Estim Creat Clear Calc 78.20, Est GFR (MDRD) Af Amer 57 L, Est GFR (MDRD) Non-Af 47 L, BUN/Creatinine Ratio 13.3, Glucose 150 H, Lactic Acid 2.2 H*, Calcium 9.2, TotalBilirubin 0.80, Direct Bilirubin 0.19, AST 10 L, ALT 13, Alkaline Phosphatase 92, Troponin I High Sens 852 H*, Total Protein 6.9, Albumin 3.3, Globulin 3.6, Lipase 25 Micro: Microbiology 01/27/23 08:51 Nasal Secretion SARS-CoV-2 & FLU Antigen (Rapid) - Final Imagaing Radiology Impression Brain CT 01/27/23 08:39 IMPRESSION: Chronic involutional changes of the brain. Electronically Signed: Jesse Huntley MD at 9:28 EST , Chest X-Ray 01/27/23 09:12 IMPRESSION: Stable mild increased markings at the lung bases. No acute abnormality is seen. Electronically Signed: Jesse Huntley MD at 9:41 EST , Assessment & Plan Assessment/Plan (1) Sepsis: QUALIFIERS: Sepsis acute organ dysfunction status: with acute organ dysfunction Sepsis type: sepsis due to unspecified organism Acute renal failure type: with acute tubular necrosis Severe sepsis shock status: without septic shock Severe sepsis acute organ dysfunction type: acute renal failure Qualified Code(s): A41.9 - Sepsis, unspecified organism; R65.20 - Severe sepsis without septic shock; N17.0 - Acute kidney failure with tubular necrosis PLAN: Plan Patient is a 72-year-old lady presented with increasing lethargy workup was consistent with sepsis secondary to acute acute cystitis admitted to a monitoredbed for further management 1. Sepsis ? Secondary to acute cystitis evidence of sepsis (patient febrile with temperature of 102.4, respiratory rate of 26,Pulse rate of 120, with evidence ofendorgan dysfunction acute kidney injury and lactic acidosis) admitted to monitored bed treatment initiated per protocol with aggressive IV fluid resuscitation after cultures have been sent. Patient response to therapy being monitored with blood pressure as well as serial lactic acid levels 2. Acute cystitis ? Patient started on cefepime cultures sent 3. Acute kidney injury ? Creatinine on admission was 1.20. Patient baseline creatinine from November 2022 was 0.73 started on IV fluid with subsequent monitoring of electrolytes ordered 4. COPD ? Without acute exacerbation aerosol treatment as needed 5. Diabetes mellitus type II -patient's oral hypoglycemics held. Placed on long acting insulin, Accu-Cheks a.c. and at bedtime and covered with sliding scale insulin 6. Class III obesity with BMI of 49.9 ? Complicating care weight loss advised 7. Paroxysmal A-fib ? Patient was in sinus rhythm on admission 8. Obstructive sleep apnea ? Consistent use of PAP therapy encourage 9. Tobacco dependence - Counseled on cessation, offered nicotine patch for tobacco cravings 10. Depression with anxiety ? Patient is on escitalopram as well as bupropion continue 11. Restless leg syndrome ? Patient is on ropinirole continue 12. DVT prophylaxis - On enoxaparin Time spent in the patient's overall evaluation,decision-making process, review of diagnostic data, adjustment of management, discussion with other providers, nursing nursing and ancillary staff involved in patient's care documentation, 76 Minutes Advance planning; did discuss with the patient and family regarding advanced directives as well as CODE STATUS. Did explain the various scenarios involved (FULL CODE, DNR CCA, DNR CCA with no intubation, and DNR CC and what each meant) patient elected remain full code with CPR and intubation if needed. Order was placed. Time spent on discussion 18 minutes. Sepsis Attestation Sepsis Attestation: Agree w/Sepsis Date exam was performed: 01/27/23 Time exam was performed: 11:53 Possible Source of Sepsis: Genitourinary Sepsis Organ Dysfunction Criteria Present: SBP < 90 mmHg or MAP < 65 mmHg, Lactic Acid > 2 mmol/L and New/Unexplained change in mental status Fluid Resuscitation Fluid resuscitation indicated?: Yes Fluid Resuscitation ordered: 30 ml/kg fluid bolus ordered Sepsis Note Date exam was performed: 01/27/23 Response to fluids: Fluid responsive hypotension Charges/Coding Visit Charges Inpatient E&M: 40135 Init Hosp L3 Procedures Hospitalists Procedures: 22170 Advncd Care Plan 30 Min 01/27/23 1211 <Electronically signed by Maximilian Kitchen MD> Cosigner Signature (if applicable): CC: Dr. Maximilian Kitchen MD; Dr. Richie Heredia, DO~ Signed ADDENDUM by Dr. Maximilian Kitchen MD on 01/27/23 at 1213 Addendum Elevated troponin ? Suspected to be secondary to myocardial injury from patient sepsis. Patient has however been admitted to monitored bed serial cardiac enzymes obtained in addition to 2D echo with consultation placed to cardiology 01/27/23 1213<Electronically signed by Maximilian Kitchen MD> Cosigner Signature (if applicable): cc: Dr. Maximilian Kitchen MD; Dr. Richie Heredia DO ~* Signed [facility] Work Phone: 1(130) 956-481908-15-2022 Miscellaneous Notes* Telephone Encounter - Marium Borrero - 10/06/2021 8:19 AM EDT 1st attempt to contact patient to inform clearance was not met and procedure tomorrow in [place] with [facility] had to be cancelled until the clearance is met and approved. LV to contact me directly if any questions. Marium Gissell * Telephone Encounter - Demetrius Mccarty - 10/01/2021 9:24 AM EDT Cardiac clearance obtained and scanned into EPIC * Telephone Encounter - Marium Borrero - 09/10/2021 9:45 AM EDT 10/07 colon/egd lodi [facility] NoteHNO ID: [id number] Author: Mary Thomas PA-C Service: ? Author Type: Physician Ekg/Ecg Technician Type: Progress Notes Filed: 09/16/2021 3:45 PM Note Text: HISTORY AND PHYSICAL [address] 1950 REFERRING PHYSICIAN: Richie Heredia IV, MD CHIEF COMPLAINT: Consult (colonoscopy consult) HPI: The patient is a 71 year old female referred for endoscopy. David notes her bowel habits occasionally alternate between constipation and diarrhea. Patient denies any weight changes, blood in stools, black tarry stools or abdominal pain. Denies family history of colon issues. The patient NOTES occasional dysphagia worse with hamburger and pills. NOTES history of tobacco use. David has undergone remote prior endoscopy-. Patient's past medical history is significant for heart disease, atrial fibrillation, diabetes mellitus, hypertension, sleep apnea. Patient uses home oxygen at night. Patient follows with Dr. Richie Heredia IV in primary care for her chronic medical conditions, and with [facility] for her heart issues, Dr. Hurley for pulmonology. Patient denies chest pain or shortness of breath. PAST MEDICAL HISTORY Diagnosis Date - Atrial fibrillation (HCC) - Diabetes mellitus without mention of complication Diabetes mellitus - Heart disease, unspecified - hypertension - Unspecified asthma, with exacerbation - Unspecified sleep apnea PAST SURGICAL HISTORY Procedure Laterality Date - ARTHRP KNE CONDYLEANDPLATU MEDIALANDLAT COMPARTMENTS plac[place] 2000 Knee replacement, total - COLONOSCOPY 1993 - EXC TUMOR SOFT TISS UPPER ARM/ELBW SUBFASC 5+CM Right benign - FOREIGN BODY REMOVAL left ear - PAST SURGICAL HISTORY OF bilateral lens implants - REMOVAL GALLBLADDER - VAGINAL HYSTERECTOMY UTERUS 250 GM/< Hysterectomy, vaginal Current Outpatient Medications Medication Sig - gabapentin (NEURONTIN) 400 mg capsule Take 400 mg by mouth three times daily. - meloxicam (MOBIC) 15 mg tablet Take 15 mg by mouth once daily. - pravastatin (PRAVACHOL) 10 mg tablet Take 10 mg by mouth once daily. - metoprolol succinate ER (TOPROL XL) 25 mg 24 hr tablet Take 25 mg by mouth once daily. - empagliflozin (JARDIANCE) 25 mg tablet Take 25 mg by mouth daily with breakfast. - metFORMIN (GLUCOPHAGE) 500 mg tablet Take 1,000 mg by mouth twice daily with meals. - escitalopram oxalate (LEXAPRO) 20 mg tablet Take 20 mg by mouth once daily. - furosemide (LASIX) 40 mg tablet Take 40 mg by mouth once daily. - oxyCODONE IR (ROXICODONE) 10 mg tab Take 10 mg by mouth four times daily. - rOPINIRole (REQUIP) 0.5 mg tablet Take 1 mg by mouth daily at bedtime. - ADULT ASPIRIN EC LOW STRENGTH 81 MG TAB, DELAYED RELEASE Take one(1) tablet daily. - morphine SR (MARISSA) 20 mg ORAL CSRP Take one(1) tablet two(2) times daily. (Patient not taking: No sig reported) - morphine SR 20 mg ORAL C24P Take one(1) tablet daily. (Patient not taking: No sig reported) - DIGITOXIN POWDER Take one(1) tablet daily. (Patient not taking: ) - DILTIAZEM CR 240 MG CAP Take one(1) tablet daily. (Patient not taking: Capsule may be opened and contents sprinkled on applesauce. Swallow applesauce without chewing. ) - EFFEXOR 75 MG TAB Take one(1) tablet two(2) times daily. (Patient not taking: ) - PROPAFENONE 150 MG TAB Take one(1) tablet daily. (Patient not taking: ) - GLUCOTROL 10 MG TAB Take one(1) tablet daily. (Patient not taking: ) No current facility-administered medications for this visit. ALLERGIES: Darvocet A500 [Propoxyphene N-Acetaminophen], Darvon [Propoxyphene Hcl], Demoral [Meperidine], and Penicillins PERSONAL HISTORY: Social History Tobacco Use - Smoking status: Current Every Day Smoker - Smokeless tobacco: Never Used Vaping Use - Vaping Use: Never used Substance Use Topics - Alcohol use: No - Drug use: No FAMILY HISTORY: FAMILY HISTORY Problem Relation Age of Onset - Diabetes Mother - Heart Mother - Tuberculosis Mother - Heart Brother - Cancer Brother - Brain Cancer Maternal Uncle - Brain Cancer Maternal Uncle throat cancer - Lung Cancer Maternal Uncle REVIEW OF SYMPTOMS: The review of systems data was entered by the nurse and reviewed by vt Nursing Notes: Marium Borrero 09/09/2021 2:57 PM Signed REVIEW OF SYSTEMS: General: The patient denies fatigue, denies weight loss, denies weight gain, NOTES feeling hot, and denies feelings of cold. Eyes: The patient denies glaucoma, NOTES eye injury/surgery, does not wear glasses or contacts. Ear/Nose/Throat: The patient denies allergies, NOTES hayfever, denies ear infections, and denies bloody noses. Cardiovascular: The patient denies chest pain, NOTES heart disease, NOTES high blood pressure,denies cardiac stent, denies prior heart attack, denies irregular heart beat, NOTES high cholesterol, NOTES poor circulation, denies heart failure, other cardiac issues, denies claudication, NOTES cold feet, d (more content not included)...[facility]07-19-2022 Nurse Note* Marium Borrero - 09/09/2021 2:54 PM EDT REVIEW OF SYSTEMS: General: The patient denies fatigue, denies weight loss, denies weight gain, NOTES feeling hot, anddenies feelings of cold. Eyes: The patient denies glaucoma, NOTES eye injury/surgery, does not wear glasses or contacts. Ear/Nose/Throat: The patient denies allergies, NOTES hayfever, denies ear infections, and denies bloody noses. Cardiovascular: The patient denies chest pain, NOTES heart disease, NOTES high blood pressure,denies cardiac stent, denies prior heart attack, denies irregular heart beat, NOTES high cholesterol, NOTES poor circulation, denies heart failure, other cardiac issues, denies claudication, NOTES cold feet, denies peripheral arterial stent. Respiratory: The patient denies tuberculosis, NOTES pneumonia, NOTES frequent cough, denies pulmonary embolism, denies shortness of breath, and denies coughing up blood. Gastrointestinal: The patient denies difficulty swallowing, denies acid reflux, denies ulcers, denies vomiting, denies jaundice/hepatitis, NOTES gallbladder problems, denies black or tarry stools, denies hemorrhoids, denies bleeding from rectum, denies diverticulitis, NOTES constipation, denies diarrhea, denies loss of stool control, and denies hernias. Kidney/Bladder: The patient denies kidney stones, denies urine infections, and denies bloody urine. Skin: The patient denies a history of skin cancer, denies bleeding/changing moles, and NOTES a history of skin rash. Neurologic: The patient denies a history of epilepsy/convulsions, denies headaches, denies head/spinal injuries, and denies stroke/TIA. Psychiatric: The patient denies psychiatric medications, NOTES depression, and denies voices, denies substance abuse. Endocrine: The patient denies thyroid disorders, NOTES diabetes, and denies hormonal problems. Hematologic: The patient denies a history of bruising, denies bleeding, and denies anemia, denies blood clots. Infections: The patient NOTES a history of measles and mumps, denies rheumatic fever, and denies sexually transmitted diseases. Musculoskeletal: The patient NOTES back pain/injury, denies back problems, denies sciatica, denies knee/foot trouble, denies arthritis, or denies gout. When was patient's last Mammogram screening? 2021 Last Colonoscopy: 1993 Marium Borrero documented in this encounterAs[facility] Miscellaneous Notes* Telephone Encounter - Marium Borrero - 09/09/2021 2:52 PM EDT Patient is needing pulmonary and cardiac clearance Patient sees Dr. Montiel at the [facility] and sees Dr. Hurley at [facility] Patient is scheduled for both upper and lower scope in [place] with Dr. Betts on 09/23 * Telephone Encounter - Marium Borrero - 09/09/2021 2:50 PM EDT ENTERED OP TIME * Addendum Note - Marium Borrero - 09/09/2021 2:50 PM EDT Addended by: MARIUM BORRERO on: 09/09/2021 02:50 PM Modules accepted: Orders * Telephone Encounter - Marium Borrero - 09/09/2021 2:46 PM EDT 09/23 COLON EGD LODI documented in this encounterAs[facility]07-19-2022 History of Present illness Narrative* Mary Thomas PA-C - 09/09/2021 1:37 PM EDT HISTORY AND PHYSICAL [address] 1950 REFERRING PHYSICIAN: Richie Heredia IV, MD CHIEF COMPLAINT: Consult (colonoscopy consult) HPI: The patient is a 71 year old female referred for endoscopy. David notes her bowel habits occasionally alternate between constipation and diarrhea. Patient denies any weight changes, blood in stools, black tarry stools or abdominal pain. Denies family history of colon issues. The patient NOTES occasional dysphagia worse with hamburger and pills. NOTES history of tobacco use. David has undergone remote prior endoscopy-. Patient's past medical history is significant for heart disease, atrial fibrillation, diabetes mellitus, hypertension, sleep apnea. Patient uses home oxygen at night. Patient follows with Dr. Geronimo LANDON in primary care for her chronic medical conditions, and with [facility] for her heart issues, Dr. Hurley for pulmonology. Patient denies chest pain or shortness of breath. PAST MEDICAL HISTORY Diagnosis Date Atrial fibrillation (HCC) Diabetes mellitus without mention of complication Diabetes mellitus Heart disease, unspecified hypertension Unspecified asthma, with exacerbation Unspecified sleep apnea PAST SURGICAL HISTORY Procedure Laterality Date ARTHRP KNE CONDYLE&PLATU MEDIAL&LAT COMPARTMENTS plac[place] 2000 Knee replacement, total COLONOSCOPY 1993 EXC TUMOR SOFT TISS UPPER ARM/ELBW SUBFASC 5+CM Right benign FOREIGN BODY REMOVAL left ear PAST SURGICAL HISTORY OF bilateral lens implants REMOVAL GALLBLADDER VAGINAL HYSTERECTOMY UTERUS 250 GM/< Hysterectomy, vaginal Current Outpatient Medications Medication Sig gabapentin (NEURONTIN) 400 mg capsule Take 400 mg by mouth three times daily. meloxicam (MOBIC) 15 mg tablet Take 15 mg by mouth once daily. pravastatin (PRAVACHOL) 10 mg tablet Take 10 mg by mouth once daily. metoprolol succinate ER (TOPROL XL) 25 mg 24 hr tablet Take 25 mg by mouth once daily. empagliflozin (JARDIANCE) 25 mg tablet Take 25 mg by mouth daily with breakfast. metFORMIN (GLUCOPHAGE) 500 mg tablet Take 1,000 mg by mouth twice daily with meals. escitalopram oxalate (LEXAPRO) 20 mg tablet Take 20 mg by mouth once daily. furosemide (LASIX) 40 mg tablet Take 40 mg by mouth once daily. oxyCODONE IR (ROXICODONE) 10 mg tab Take 10 mg by mouth four times daily. rOPINIRole (REQUIP) 0.5 mg tablet Take 1 mg by mouth daily at bedtime. ADULT ASPIRIN EC LOW STRENGTH 81 MG TAB, DELAYED RELEASE Take one(1) tablet daily. morphine SR (MARISSA) 20 mg ORAL CSRP Take one(1) tablet two(2) times daily. (Patient not taking: Nosig reported) morphine SR 20 mg ORAL C24P Take one(1) tablet daily. (Patient not taking: No sig reported) DIGITOXIN POWDER Take one(1) tablet daily. (Patient not taking: ) DILTIAZEM CR 240 MG CAP Take one(1) tablet daily. (Patient not taking: Capsule may be opened and contents sprinkled on applesauce. Swallow applesauce without chewing. ) EFFEXOR 75 MG TAB Take one(1) tablet two(2) times daily. (Patient not taking: ) PROPAFENONE 150 MG TAB Take one(1) tablet daily. (Patient not taking: ) GLUCOTROL 10 MG TAB Take one(1) tablet daily. (Patient not taking: ) No current facility-administered medications for this visit. ALLERGIES: Darvocet A500 [Propoxyphene N-Acetaminophen], Darvon [Propoxyphene Hcl], Demoral [Meperidine], and Penicillins PERSONAL HISTORY: Social History Tobacco Use Smoking status: Current Every Day Smoker Smokeless tobacco: Never Used Vaping Use Vaping Use: Never used Substance Use Topics Alcohol use: No Drug use: No FAMILY HISTORY: FAMILY HISTORY Problem Relation Age of Onset Diabetes Mother Heart Mother Tuberculosis Mother Heart Brother Cancer Brother Brain Cancer Maternal Uncle Brain Cancer Maternal Uncle throat cancer Lung Cancer Maternal Uncle REVIEW OF SYMPTOMS: The review of systems data was entered by the nurse and reviewed by me Nursing Notes: Marium Borrero 09/09/2021 2:57 PM Signed REVIEW OF SYSTEMS: General: The patient denies fatigue, denies weight loss, denies weight gain, NOTES feeling hot, anddenies feelings of cold. Eyes: The patient denies glaucoma, NOTES eye injury/surgery, does not wear glasses or contacts. Ear/Nose/Throat: The patient denies allergies, NOTES hayfever, denies ear infections, and denies bloody noses. Cardiovascular: The patient denies chest pain, NOTES heart disease, NOTES high blood pressure,denies cardiac stent, denies prior heart attack, denies irregular heart beat, NOTES high cholesterol, NOTES poor circulation, denies heart failure, other cardiac issues, denies claudication, NOTES cold feet, denies peripheral arterial stent. Respiratory: The patient denies tuberculosis, NOTES pneumonia, NOTES frequent cough, denies pulmonary embolism, denies shortness of breath, and denies coughing up blood. Gastrointestinal: The patient denies difficulty swallowing, denies acid reflux, denies ulcers, denies vomiting, denies jaundice/hepatitis, NOTES gallbladder problems, denies black or tarry stools, denies hemorrhoids, denies bleeding from rectum, denies diverticulitis, NOTES constipation, denies diarrhea, denies loss of stool control, and denies hernias. Kidney/Bladder: The patient denies kidney stones, denies urine infections, and denies bloody urine. Skin: The patient denies a history of skin cancer, denies bleeding/changing moles, and NOTES a history of skin rash. Neurologic: The patient denies a history of epilepsy/convulsions, denies headaches, denies head/spinal injuries, and denies stroke/TIA. Psychiatric: The patient denies psychiatric medications, NOTES depression, and denies voices, denies substance abuse. Endocrine: The patient denies thyroid disorders, NOTES diabetes, and denies hormonal problems. Hematologic: The patient denies a history of bruising, denies bleeding, and denies anemia, denies blood clots. Infections: The patient NOTES a history of measles and mumps, denies rheumatic fever, and denies sexually transmitted diseases. Musculoskeletal: The patient NOTES back pain/injury, denies back problems, denies sciatica, denies knee/foot trouble, denies arthritis, or denies gout. When was patient's last Mammogram screening? 2021 Last Colonoscopy: 1993 Marium Borrero I have confirmed and edited as necessary, the PFSH and ROS obtained by others. Mary Thomas PA-C PHYSICAL EXAMINATION: General: The patient is 71 year old female, well nourished, well hydrated in no acute distress. Thepatient is oriented to time, place, and person. VITALS: Blood pressure 128/60, pulse 85, temperature 36.9 C (98.4 F), height 152.4 cm (5'), weight 108 kg (238 lb), SpO2 95 %. Body mass index is 46.48 kg/m . HEENT: Normal cephalic, ataumatic, pupils are equally round, sclera are anicteric, mucous membranesare moist, oropharynx is clear. Neck has no masses, asymmetry or lymphadenopathy. Respiratory: Clear to auscultation and percussion. Normal respiratory excursion and pattern. Cardiac: Examination is regular rate and rhythm. Normal S1/S2 Abdominal exam: Soft, nontender, with no palpable masses. No hepatosplenomegaly. No palpable hernias. Extremities: no clubbing, cyanosis or edema. No adenopathy. LABORATORY VALUES: As Noted RADIOLOGIC STUDIES: As Noted Assessment IMPRESSION: encounter for colonoscopy. Dysphagia and history of tobacco use- recommend EGD in addition to colonoscopy PLAN: I have reviewed my findings with the surgeon. Will plan for lower endoscopy. We discussed therisks and benefits of the planned endoscopy. I have informed the patient that complications can occur including failure to complete the endoscopy and perforation. The patient had the opportunity to ask questions concerning the planned endoscopy. My staff has also explained the procedure to the patient in understandable terms and has given the patient printed material concerning the procedure. Thepatient freely consents to surgery. The patient was offered a [facility]. I have counseled the patient regarding the risk of exposure to and/or potential harm posed by the COVID-19 virus with having a surgery/procedure at this time versus the risk of delaying the surgery/procedure. It is not possible to know either the risk of delaying the surgery or procedure or chance of getting an infection with perfect accuracy, but a joint decision was made between the patient and myself to proceed at this time with endoscopy. I plan to use Golytely bowel preparation Patient instructed to contact PCP for instructions regarding diabetic medication, which may requireadjustment during bowel preparation and/or day of procedure The patient takes prescription medications which I feel decrease the chance of successful sedation,therefore we will plan for procedure to be done under Monitored [facility]esthetic [facility]. Diagnoses: (Z12.11) Encounter for screening for malignant neoplasm of colon (primary encounter diagnosis) (R13.19) Other dysphagia (Z87.891) History of tobacco use Consultation requested by Dr. Richie Heredia IV, MD for an opinion regarding colonoscopy. My final recommendations will be communicated back to the requesting physician by way of shared Medical recordor letter to requesting physician via US mail. Mary Thomas PA-C documented in this encounterAs[facility]11-24-[facility] Hospital Discharge instructions Patient Education 01/15/2021 12:54:50 COVID-19 Prevent the Spread of COVID-19 If You Are Sick (07/11/2019)(CUSTOM) Prevent the Spread of COVID-19 If You Are Sick Accessible version: https://www.cdc.gov/coronavirus/2019-ncov/sf-nqp-gkk-sick/oxgwo-nomn-qwyk.html If you are sick with COVID-19 or think you might have COVID-19, follow the steps below to help protect other people in your home and community. Stay home except to get medical care. Stay home. Most people with COVID-19 have mild illness and are able to recover at home without medical care. Do not leave your home, except to get medical care. Do not visit public areas. Take care of yourself. Get rest and stay hydrated. Get medical care when needed. Call your doctor before you go to their office for care. But, if you have trouble breathing or other concerning symptoms, call 911 for immediate help. Avoid public transportation, ride-sharing, or taxis. Separate yourself from other people and pets in your home. As much as possible, stay in a specific room and away from other people and pets in your home. Also, you should use a separate bathroom, if available. If you need to be around other people or animalsin or outside of the home, wear a cloth face covering. See COVID-19 and Animals if you have questions about pets: https://www.cdc.gov/coronavirus/2019ncov/faq.html#SJGKY10rydquiy Monitor your symptoms. Common symptoms of COVID-19 include fever and cough. Trouble breathing is a more serious symptom that means you should get medical attention. Follow care instructions from your healthcare provider and local health department. Your local health authorities will give instructions on checking your symptoms and reporting information. If you develop emergency warning signs for COVID-19 get medical attention immediately. Emergency warning signs include*: Trouble breathing Persistent pain or pressure in the chest New confusion or not able to be woken Bluish lips or face *This list is not all inclusive. Please consult your medical provider for any other symptoms that are severe or concerning to you. Call 911 if you have a medical emergency. If you have a medical emergency and need to call 911, notify the harvester operator that you have or think you might have, COVID-19. If possible, put on a facemask before medical help arrives Call ahead before visiting your doctor. Call ahead. Many medical visits for routine care are being postponed or done by phone or telemedicine. If you have a medical appointment that cannot be postponed, call your doctor s office. This will help the office protect themselves and other patients. If you are sick, wear a cloth covering over your nose and mouth. You should wear a cloth face covering over your nose and mouth if you must be around other people or animals, including pets (even at home). You don t need to wear the cloth face covering if you are alone. If you can t put on a cloth face covering (because of trouble breathing for example), cover your coughs and sneezes in some other way.Try to stay at least 6 feet away from other people. This will help protect the people around you. Note: During the COVID-19 pandemic, medical grade facemasks are reserved for healthcare workers andsome first responders. You may need to make a cloth face covering using a scarf or bandana. Cover your coughs and sneezes. Cover your mouth and nose with a tissue when you cough or sneeze. Throw used tissues in a lined trash can. Immediately wash your hands with soap and water for at least 20 seconds. If soap and water are not available, clean your hands with an alcohol-based hand deputy district customs director that contains at least 60% alcohol. Clean your hands often. Wash your hands often with soap and water for at least 20 seconds. This is especially important after blowing your nose, coughing, or sneezing; going to the bathroom; and before eating or preparing food. Use hand deputy district customs director if soap and water are not available. Use an alcohol-based hand deputy district customs director with atleast 60% alcohol, covering all surfaces of your hands and rubbing them together until they feel dry. Soap and water are the best option, especially if your hands are visibly dirty. \\ Avoid touching your eyes, nose, and mouth with unwashed hands. Avoid sharing personal household items. Do not share dishes, drinking glasses, cups, eating utensils, towels, or bedding with other people in your home. Wash these items thoroughly after using them with soap and water or put them in the conference service coordinator. Clean all high-touch surfaces everyday. Clean and disinfect high-touch surfaces in your sick room and bathroom. Let someone else clean and disinfect surfaces in common areas, but not your bedroom and bathroom. If a caregiver or other person needs to clean and disinfect a sick person s bedroom or bathroom, they should do so on an as-needed basis. The caregiver/other person should wear a mask and wait as long as possible after the sick person has used the bathroom High-touch surfaces include phones, remote controls, counters, tabletops, doorknobs, bathroom fixtures, toilets, keyboards, tablets, and bedside tables. Clean and disinfect areas that may have blood, stool, or body fluids on them. Use household leather heel breaster and disinfectants. Clean the area or item with soap and water or another detergent if it is dirty. Then use a household disinfectant. Be sure to follow the instructions on the label to ensure safe and effective use of the product. Many products recommend keeping the surface wet for several minutes to ensure germs are killed. Many also recommend precautions such as wearing gloves and making sure you have good ventilation during use of the product. Most EPA-registered household disinfectants should be effective. How to discontinue home isolation. People with COVID-19 who have stayed home (home isolated) can stop home isolation under the following conditions: If you will not have a test to determine if you are still contagious, you can leave home after these three things have happened: You have had no fever for at least 72 hours (that is three full days of no fever without the use ofmedicine that reduces fevers) AND other symptoms have improved (for example, when your cough or shortness of breath has improved) AND at least 10 days have passed since your symptoms first appeared. If you will be tested to determine if you are still contagious, you can leave home after these three things have happened: You no longer have a fever (without the use of medicine that reduces fevers) AND other symptoms have improved (for example, when your cough or shortness of breath has improved) AND you received two negative tests in a row, 24 hours apart. Your doctor will follow CDC guidelines. In all cases, follow the guidance of your healthcare provider and local health department. The decision to stop home isolation should be made in consultation with your healthcare provider and state and local health departments. Local decisions depend on local circumstances. cdc.gov/coronavirus Follow Up Care 01/15/2021 11:48:52 With:RICHIE HEREDIA DO Address: [phone] When:3-5 days [facility] Evaluation + Plan note Future Appointments Appointment Date:01/21/2021 02:30:00 PM Scheduled Provider:RICHIE HEREDIA DO Location:[facility] Appointment Type:PC Office Procedure OMT Future Scheduled Tests Laboratory* COVID-19 Only (AO) 01/14/21 Radiology* XR Hip Minimum 2 Views Left 11/19/20 * CT Thorax High Resolution w/o Contrast 01/25/20 [facility] Evaluation + Plan note Future Appointments Appointment Date:01/21/2021 12:00:00 PM Scheduled Provider:RICHIE HEREDIA DO Location:[facility] Appointment Type:Telehealth Future Scheduled Tests Laboratory* COVID-19 Only (AO) 01/14/21 Radiology* XR Hip Minimum 2 Views Left 11/19/20 * CT Thorax High Resolution w/o Contrast 01/25/20 [facility] Evaluation + Plan note Future Appointments Appointment Date:05/19/2021 03:30:00 PM Scheduled Provider:RICHIE HEREDIA DO Location:[facility] Appointment Type:PC OV Appointment Date:06/03/2021 02:30:00 PM Scheduled Provider: Location:[facility] Appointment Type:BD Bone Density DEXA Axial Skeleton Appointment Date:06/03/2021 03:30:00 PM Scheduled Provider: Location:[facility] Appointment Type:MA Mammogram Screening Bilateral w/ Glenn Appointment Date:07/11/2021 03:30:00 PM Scheduled Provider:RICHIE HEREDIA DO [facility] Appoint[facility] Type:PC Wellness Medicare Future Scheduled Tests Laboratory* COVID-19 Only (AO) 01/14/21 Radiology* BD Bone Density DEXA Axial Skeleton 06/03/21 * XR Hip Minimum 2 Views Left 11/19/20 * MA Mammo Screening Bilateral w/ Glenn 06/03/21 [facility] Evaluation + Plan note Future Appointments Appointment Date:06/18/2021 02:30:00 PM Scheduled Provider:RICHIE HEREDIA DO [facility] Appointment Type:PC OV Appointment Date:07/11/2021 03:30:00 PM Scheduled Provider:RICHIE HEREDIA DO Location:[facility] Appointment Type:PC Wellness Medicare Future Scheduled Tests Laboratory* COVID-19 Only (AO) 01/14/21 Radiology* BD Bone Density DEXA Axial Skeleton 06/03/21 * XR Hip Minimum 2 Views Left 11/19/20 [facility] Evaluation + Plan note Future Appointments Appointment Date:09/04/2021 02:00:00 PM Scheduled Provider:RICHIE HEREDIA DO [facility] Appointment Type:PC OV Appointment Date:10/24/2021 02:00:00 PM Scheduled Provider: Location:[facility] Appointment Type:COVID AMB VACCINE Future Scheduled Tests Laboratory* COVID-19 Only (AO) 01/14/21 Radiology* XR Hip Minimum 2 Views Left 11/19/20 [facility] Evaluation + Plan note Future Appointments Appointment Date:04/23/2022 03:30:00 PM Scheduled Provider:RICHIE HEREDIA DO [facility] Appointment Type:PC OV Appointment Date:05/27/2022 04:00:00 PM Scheduled Provider:RICHIE HEREDIA DO Location:[facility] Appointment Type:PC OV Future Scheduled Tests Radiology* XR Chest 2 Views (PA & Lateral) 04/08/22 [facility] Evaluation + Plan note Future Appointments Appointment Date:05/27/2022 04:00:00 PM Scheduled Provider:RICHIE HEREDIA DO Location:[facility] Appointment Type:PC OV Future Scheduled Tests Radiology* XR Chest 2 Views (PA & Lateral) 04/08/22 [facility] Evaluation + Plan note Future Appointments Appointment Date:10/20/2022 03:30:00 PM Scheduled Provider: Location:[facility] Appointment Type:VL AOH - Venous US/Doppler One Leg (for Appointment Date:11/13/2022 04:00:00 PM Scheduled Provider:RICHIE HEREDIA DO Location:[facility] Appointment Type:PC OV Appointment Date:01/20/2023 04:00:00 PM Scheduled Provider:RICHIE HEREDIA DO Location:[facility] Appointment Type:PC OV Future Scheduled Tests Radiology* XR Chest 2 Views (PA & Lateral) 04/08/22 [facility] Evaluation + Plan note Future Appointments Appointment Date:04/16/2023 03:00:00 PM Scheduled Provider:RICHIE HEREDIA DO Location:[facility] Appointment Type:PC OV Future Scheduled Tests Laboratory* Basic Metabolic Panel 01/26/23 * Urinalysis 03/03/23 * Thyroid Stimulating Hormone 01/26/23 * Free T4 01/26/23 * Vitamin B12 Level 01/26/23 * Urine Culture 03/03/23 * Albumin/Creatinine Ratio, Random Urine 12/21/22 Radiology* NM Myocardial Spect Rest/Stress 12/21/22 * XR Chest 2 Views (PA & Lateral) 02/09/23 * XR Chest 2 Views (PA & Lateral) 04/08/22 [facility] Evaluation + Plan note Future Appointments Appointment Date:04/16/2023 03:00:00 PM Scheduled Provider:RICHIE HEREDIA DO Location:[facility] Appointment Type:PC OV Diagnostic Tests Pending * Urine Culture 04/13/23 Future Scheduled Tests Laboratory* Basic Metabolic Panel 01/26/23 * Urinalysis 03/03/23 * Thyroid Stimulating Hormone 01/26/23 * Free T4 01/26/23 * Vitamin B12 Level 01/26/23 * Urine Culture 03/03/23 * Albumin/Creatinine Ratio, Random Urine 12/21/22 Radiology* NM Myocardial Spect Rest/Stress 12/21/22 * XR Chest 2 Views (PA & Lateral) 02/09/23 [facility] Evaluation + Plan note Future Appointments Appointment Date:09/01/2023 03:30:00 PM Scheduled Provider: Location:[facility] Appointment Type:MRI Brain w/o Contrast Appointment Date:09/09/2023 04:00:00 PM Scheduled Provider:RICHIE HEREDIA DO Location:[facility] Appointment Type:PC OV Appointment Date:10/11/2023 04:00:00 PM Scheduled Provider:RICHIE HEREDIA DO Location:[facility] Appointment Type:PC OV Appointment Date:11/12/2023 04:00:00 PM Scheduled Provider:RICHIE HEREDIA DO Location:[facility] Appointment Type:PC Wellness Medicare Appointment Date:12/08/2023 04:30:00 PM Scheduled Provider:RICHIE HEREDIA DO [facility] Appointment Type:PC OV Future Scheduled Tests Radiology* MRI Brain w/o Contrast 09/01/23 * NM Myocardial Spect Rest/Stress 12/21/22 * XR Chest 2 Views (PA & Lateral) 02/09/23 [facility] Evaluation + Plan note Future Appointments Appointment Date:12/29/2023 03:30:00 PM Scheduled Provider:RICHIE HEREDIA DO Location:[facility] Appointment Type:PC OV Future Scheduled Tests Laboratory* Basic Metabolic Panel 11/29/23 Radiology* MRI Brain w/o Contrast 09/01/23 * NM Myocardial Spect Rest/Stress 12/21/22 * XR Chest 2 Views (PA & Lateral) 02/09/23 * XR Hip Bilateral w/Pelvis Minimum 5 Views 11/25/23 * XR Spine Lumbar W/Obliques 4 Views 11/25/23 [facility] Evaluation + Plan note Future Appointments Appointment Date:03/30/2024 03:30:00 PM Scheduled Provider:RICHIE HEREDIA DO [facility] Appointment Type:PC OV Controlled Medication Future Scheduled Tests Laboratory* Basic Metabolic Panel 11/29/23 * Culture Wound Deep Aerobe/Anaerobe w Gram Stain 02/25/24 Radiology* XR Ribs 2 Views Right/PA Chest (AO) 03/16/24 * CT Low Dose Lung Cancer Screening (LDCT) 12/29/23 * MA Mammo Screening Bilateral w/ Glenn 12/29/23 * BD Bone Density DEXA Axial Skeleton Adult (21 yrs or older) 12/29/23 * MRI Brain w/o Contrast 09/01/23 * NM Myocardial Spect Rest/Stress 12/21/22 * XR Humerus Minimum 2 Views Right 03/16/24 * XR Shoulder Minimum 2 Views Right 03/16/24 * XR Hip Bilateral w/Pelvis Minimum 5 Views 11/25/23 * XR Spine Lumbar W/Obliques 4 Views 11/25/23 [facility] Evaluation + Plan note Future Appointments Appointment Date:07/03/2024 02:30:00 PM Scheduled Provider:RICHIE HEREDIA DO Location:[facility] Appointment Type:PC OV Future Scheduled Tests Laboratory* Basic Metabolic Panel 11/29/23 * Urinalysis w/ C&S if Indicated 03/30/24 * Urine Culture 03/30/24 * Culture Wound Deep Aerobe/Anaerobe w Gram Stain 02/25/24 Radiology* XR Ribs 2 Views Right/PA Chest (AO) 03/16/24 * CT Low Dose Lung Cancer Screening (LDCT) 12/29/23 * MA Mammo Screening Bilateral w/ Glenn 12/29/23 * BD Bone Density DEXA Axial Skeleton Adult (21 yrs or older) 12/29/23 * MRI Brain w/o Contrast 09/01/23 * NM Myocardial Spect Rest/Stress 12/21/22 * XR Humerus Minimum 2 Views Right 03/16/24 * XR Shoulder Minimum 2 Views Right 03/16/24 * XR Hip Bilateral w/Pelvis Minimum 5 Views 11/25/23 * XR Spine Lumbar W/Obliques 4 Views 11/25/23 [facility] Evaluation + Plan note Future Appointments Appointment Date:07/03/2024 02:30:00 PM Scheduled Provider:RICHIE HEREDIA DO Location:[facility] Appointment Type: OV Future Scheduled Tests Laboratory* Basic Metabolic Panel 11/29/23 * Urinalysis w/ C&S if Indicated 04/24/24 * Urinalysis w/ C&S if Indicated 03/30/24 * Urine Culture 04/24/24 * Urine Culture 03/30/24 * Culture Wound Deep Aerobe/Anaerobe w Gram Stain 02/25/24 Radiology* XR Ribs 2 Views Right/PA Chest (AO) 03/16/24 * CT Low Dose Lung Cancer Screening (LDCT) 12/29/23 * MA Mammo Screening Bilateral w/ Glenn 12/29/23 * BD Bone Density DEXA Axial Skeleton Adult (21 yrs or older) 12/29/23 * MRI Brain w/o Contrast 09/01/23 * NM Myocardial Spect Rest/Stress 12/21/22 * XR Humerus Minimum 2 Views Right 03/16/24 * XR Shoulder Minimum 2 Views Right 03/16/24 * XR Hip Bilateral w/Pelvis Minimum 5 Views 11/25/23 * XR Spine Lumbar W/Obliques 4 Views 11/25/23 [facility] Evaluation + Plan note Future Appointments Appointment Date:08/31/2024 11:00:00 AM Scheduled Provider: [facility] Appointment Type:PC Nurse Lab Appointment Date:09/20/2024 02:30:00 PM Scheduled Provider:RICHIE HEREDIA DO [facility] Appointment Type: OV Follow Up Future Scheduled Tests Laboratory* Basic Metabolic Panel 11/29/23 * Urinalysis w/ C&S if Indicated 04/24/24 * Urinalysis w/ C&S if Indicated 07/03/24 * Urinalysis w/ C&S if Indicated 03/30/24 * Thyroid Stimulating Hormone 07/03/24 * Free T4 07/03/24 * Vitamin B12 Level 07/03/24 * Urine Culture 04/24/24 * Urine Culture 07/03/24 * Urine Culture 03/30/24 * A1C Hemoglobin 07/03/24 * Complete Blood Count 07/03/24 * Lipid Profile 07/03/24 * Albumin/Creatinine Ratio, Random Urine 07/03/24 * Vitamin D Level 07/03/24 * Complete Metabolic Panel 07/03/24 * Culture Wound Deep Aerobe/Anaerobe w Gram Stain 02/25/24 * [facility] [place] out (Blood Specimens) 07/03/24 Radiology* XR Ribs 2 Views Right/PA Chest (AO) 03/16/24 * CT Low Dose Lung Cancer Screening (LDCT) 12/29/23 * MA Mammo Screening Bilateral w/ Glenn 12/29/23 * BD Bone Density DEXA Axial Skeleton Adult (21 yrs or older) 12/29/23 * MRI Brain w/o Contrast 09/01/23 * NM Myocardial Spect Rest/Stress 12/21/22 * XR Humerus Minimum 2 Views Right 03/16/24 * XR Shoulder Minimum 2 Views Right 03/16/24 * XR Hip Bilateral w/Pelvis Minimum 5 Views 11/25/23 * XR Spine Lumbar W/Obliques 4 Views 11/25/23 [facility] Evaluation + Plan note Future Appointments Appointment Date:09/20/2024 02:30:00 PM Scheduled Provider:RICHIE HEREDIA DO Location:[facility] Appointment Type:PC OV Follow Up Diagnostic Tests Pending * Miscellaneous LC Test 09/01/24 Future Scheduled Tests Laboratory* Basic Metabolic Panel 11/29/23 * Urinalysis w/ C&S if Indicated 04/24/24 * Urinalysis w/ C&S if Indicated 07/03/24 * Urinalysis w/ C&S if Indicated 03/30/24 * Urine Culture 04/24/24 * Urine Culture 07/03/24 * Urine Culture 03/30/24 * Albumin/Creatinine Ratio, Random Urine 07/03/24 * Culture Wound Deep Aerobe/Anaerobe w Gram Stain 02/25/24 Radiology* XR Ribs 2 Views Right/PA Chest (AO) 03/16/24 * CT Low Dose Lung Cancer Screening (LDCT) 12/29/23 * MA Mammo Screening Bilateral w/ Glenn 12/29/23 * BD Bone Density DEXA Axial Skeleton Adult (21 yrs or older) 12/29/23 * NM Myocardial Spect Rest/Stress 12/21/22 * XR Humerus Minimum 2 Views Right 03/16/24 * XR Shoulder Minimum 2 Views Right 03/16/24 * XR Hip Bilateral w/Pelvis Minimum 5 Views 11/25/23 * XR Spine Lumbar W/Obliques 4 Views 11/25/23 [facility] Evaluation noteNo assessment information available [facility] Work Phone: Evaluation note* Diagnosis Screening for colon cancer- Primary Special screening for malignant neoplasms, colon Dysphagia, unspecified type History of tobacco use Personal history of tobacco use, presenting hazards to health documented [facility]* Diagnosis Encounter for screening for malignant neoplasm of colon- Primary Special screening for malignant neoplasms, colon Other dysphagia History of tobacco use Personal history of tobacco use, presenting hazards to health Dysphagia, unspecified type History of tobacco use Personal history of tobacco use, presenting hazards to health Screening for colon cancer Special screening for malignant neoplasms, colon documented in this encounter [facility]* Diagnosis Onset Date Resolution Status Acute febrile illness acute Altered mental status acute Elevated troponin acute Hypoxemia acute NSTEMI (non-ST elevated myocardial infarction) acute Sepsis acute 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 HTN (hypertension) chronic Morbid obesity chronic Obstructive sleep apnea 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 Paroxysmal atrial fibrillation chronic [facility] Work Phone: Evaluation note* Diagnosis Onset Date Resolution Status Hypoxemia acute NSTEMI (non-ST elevated myocardial infarction) acute 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 HTN (hypertension) chronic Morbid obesity chronic Obstructive sleep apnea 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 Paroxysmal atrial fibrillation chronic Acute febrile illness resolv ed Altered mental status resolv ed Elevated troponin resolved Sepsis resolved [facility] Work Phone: Hospital course Narrative No data available for this section [facility] Discharge instructions No data available for this section [facility] Progress note No data available for this section [facility] Reason for referral (narrative)* Outpatient Procedure (Routine) - Pending Review Specialty Diagnoses / Procedures Referred By Britney davila Referred To Contact [facility] Diagnoses Dysphagia, unspecified type History of tobacco use Procedures EGD DIAGNOSTIC EGD DIAGNOSTIC EGD DIAGNOSTIC ESOPHAGOGASTRODUODENOSC OPY TRANSORAL DIAGNOSTIC ESOPHAGOGASTRODUODENOSC OPY TRANSORAL DIAGNOSTIC ESOPHAGOGASTRODUODENOSC OPY TRANSORAL DIAGNOSTIC Mary Thomas PA-C [address] [place] [address] [facility] [address] [place] [address] Referral ID Status Reason Start Date Expiration Date Visits Requested Visits Authorized [id number] Pending Review Auto-Generat ed Referral 09/09/2021 09/09/2022 1 1 * Outpatient Procedure (Routine) - Pending Review Specialty Diagnoses / Procedures Referred By Britney davila Referred To Contact [facility] Diagnoses Screening for colon cancer Procedures COLONOSCOPY SCREENING COLONOSCOPY SCREENING COLONOSCOPY SCREENING COLONOSCOPY FLX DX W/COLLJ SPEC WHEN PFRMD COLONOSCOPY FLX DX W/COLLJ SPEC WHEN PFRMD COLONOSCOPY FLX DX W/COLLJ SPEC WHEN PFRMD Mary Thomas PA-C [address] [place] [address] [facility] [address] Referral ID Status Reason Start Date Expiration Date Visits Requested Visits Authorized [id number] Pending Review Auto-Generat ed Referral 09/09/2021 09/09/2022 1 1 [facility] for referral (narrative)No reason for referral [facility] Work [facility]: Chief Complaint and Reason for Visit Chief Complaint back pain dizziness Chief Complaint OCULAR ISCHEMIC SYND ARLETTE Chief Complaint E-ORDER GENERAL ILLNESS Chief Complaint GENERAL ILLNESS unresponsive SEPSIS SEPSIS SEPSIS SEPSIS SEPSIS Reason for Visit Acute febrile illnes s Altered mental status Elevated troponin Hypoxemia NSTEMI (non-ST elevated myocardial infarction) Sepsis Diabetes mellitus type 2 in obese HTN (hypertension) Morbid obesity Obstructive sleep apnea Paroxysmal atrial fibrillation Chief Complaint GENERAL ILLNESS unresponsive SEPSIS SEPSIS SEPSIS SEPSIS SEPSIS SEPSIS SEPSIS Reason for Visit Acute febrile illnes s Altered mental status Elevated troponin Hypoxemia NSTEMI (non-ST elevated myocardial infarction) Sepsis Diabetes mellitus type 2 in obese HTN (hypertension) Morbid obesity Obstructive sleep apnea Paroxysmal atrial fibrillation Chief Complaint unresponsive SEPSIS SEPSIS SEPSIS SEPSIS SEPSIS SEPSIS SEPSIS NO ORDERS Reason for Visit Hypoxemia NSTEMI (non-ST elevated myocardial infarction) Diabetes mellitus type 2 in obese HTN (hypertension) Morbid obesity Obstructive sleep apnea Paroxysmal atrial fibrillation Acute febrile illness Altered mental status Elevated troponin Sepsis Chief Complaint Admit Date SOB February 21, 2024 9:12pm SOB March 09, 2024 1 0:06pm weakness June 01, 2024 10: 44am Family History No Family History Records Found Relationship Condition Age at Onset Recorded Date/T lisseth mother Cardiac disease Unknown brother Cardiac disease Unknown grandfather Cerebrovascular accident (CVA) Unknown grandmother Myocardial infarction Unknown Advance Directives No Advanced Directives Records Found Advance Directive Response Recorded Date/ Time Advance Directives No March 06, 2017 11:46pm Living Will No May 23, 2021 8:44pm Power of Fruit And Vegetable Packer No May 23 8:44pm Advance Directive Response Recorded Date/ Time Advance Directives No March 06, 2017 10:46pm Living Will No May 23, 2021 7:44pm Power of Fruit And Vegetable Packer No May 23 2 7:44pm Advance Directive Response Recorded Date/ Time Advance Directives No March 06, 2017 11:46pm Living Will No October 20 3 8:28pm Power of Fruit And Vegetable Packer No October 20 023 8:28pm Advance Directive Response Recorded Date/ Time Advance Directives No March 06, 2017 10:46pm Living Will No January 27 5:33pm Power of Fruit And Vegetable Packer No January 27, 2023 5:33pm Advance Directive Response Recorded Date/ Time Living Will Yes March 09 11:32pm Do you have a Healthcare Pow er of Fruit And Vegetable Packer? Yes March 09, 2024 11:32pm Name of Medical Power of Fruit And Vegetable Packer AMIE SQUIRES [place] March 09, 2024 11:32pm Living Will No February 20 11:00pm Do you have a Healthcare Pow er of Fruit And Vegetable Packer? No February 21, 2024 11:00pm Living Will Yes June 01, 2024 10:45am Do you have a Healthcare Pow er of Fruit And Vegetable Packer? Yes June 01, 2024 10:45am Name of Medical Power of Fruit And Vegetable Packer Amie Squires [place] June 01, 2024 10:45am Advance Directives No March 06, 2017 11:46pm Summary Purpose Additional Source Comments Source Comments (unrecognize d section and content) In the event this informatio n is protected by the Federal Confidentiality of Alcohol and Drug Abuse Patient Records regulations: The Federal rules restrict any use of the information to criminally investigate or prosecute any alcohol or drug abuse patient.[facility] the event this information is protected by the Federal Confidentiality of Alcohol and Drug Abuse Patient Records regulations: The Federal rules restrict any use of the information to criminally investigate or prosecute any alcohol or drug abuse patient.[facility] the event this information is protected by the Federal Confidentiality of Alcohol and Drug Abuse Patient Records regulations: The Federal rules restrict any use of the information to criminally investigate or prosecute any alcohol or drug abuse patient.[facility] the event this information is protected by the Federal Confidentiality of Alcohol and Drug Abuse Patient Records regulations: The Federal rules restrict any use of the information to criminally investigate or prosecute any alcohol or drug abuse patient.[facility] Center[facility] the event this information is protected by the Federal Confidentiality of Alcohol and Drug Abuse Patient Records regulations: The Federal rules restrict any use of the information to criminally investigate or prosecute any alcohol or drug abuse patient.[facility] Goals (unrecognized section and content) Goals may be documented in a n alternate section Care Team (unrecognized sect ion and content) Headrig Sawyer Relationship Specialty Start Date End Date Richie Heredia IV, MD [address] [place] [id number] PCP - General Family Practice 07/25/21 Headrig Sawyer Relationship Specialty Start Date End Date Richie Heredia IV, MD [address] [place] [id number] PCP - General Family Practice 07/25/21 Headrig Sawyer Relationship Specialty Start Date End Date Richie Heredia IV, MD [address] [place] [id number] PCP - General Family Practice 07/25/21 Team Status: Active Member Role Status Dates Dr. Nicola Johnson , DO Family Provider Active Dr. Richie Heredia , DO Primary Care Provider Active Team Status: Inactive Member Role Status Dates Dr. Richie Heredia DO Primary Care Prov ider, Attending Provider, Referring Provider Active Team Status: Active Member Role Status Dates Dr. Richie Heredia DO Primary Care Provider Active Dr. Mejia Vega MD Attending Provider Active Team Status: Inactive Member Role Status Dates Dr. Richie Heredia DO Primary Care Provider Active Dr. Jarett Hurley MD Attending Provider Active Team Status: Inactive Member Role Status Dates Dr. Richie Heredia DO Primary Care Prov ider, Attending Provider, Referring Provider Active Dr. Alberto Williamson MD Other Provider Active Team Status: Inactive Member Role Status Dates Dr. Richie Heredia DO Primary Care Provider Active Dr. Darius Ryan , DO Emergency Provider Active Team Status: Active Member Role Status Dates Dr. Richie Heredia DO Primary Care Provider Active Dr. Darius Ryan , DO Referring Provider, Emergency P rovider Active Dr. Junior Marquez MD Other Provider Active Dr. Remy Guido , DO Other Provider Active Dr. Mora Live MD Other Provider Active Dr. Dominic Cantu MD Other Provider Active Maeve Parra RIBBON WINDER, RIBBON WINDER-C Other Provider Active Dr. Maximilian Kitchen MD Attending Provider Active Team Status: Active Member Role Status Dates Dr. Richie Heredia DO Primary Care Provider Active Dr. Darius Ryan , DO Referring Provider, Emergency P rovider Active Dr. Michael Saravia MD Other Provider Active Dr. Maximilian Kitchen MD Admit Provider, Other Provider A ctive Lia Rodriguez NP-C Attending Provider Active Team Status: Active Member Role Status Dates Dr. Richie Heredia , DO Primary Care Provider Active Dr. Darius Ryan DO Referring Provider, Emergency P rovider Active Dr. Maximilian Kitchen MD Admit Provider, At tending Provider, Other Provider Active Dr. Michael Saravia MD Other Provider Active Team Status: Active Member Role Status Dates Dr. Richie Heredia , DO Primary Care Provider Active Dr. Darius Ryan , DO Referring Provider, Emergency P rovider Active Dr. Maximilian Kitchen MD Admit Provider, Other Provider A ctive Dr. Michael Saravia MD Attending Provider, Other Provid er Active Team Status: Active Member Role Status Dates Dr. Richie Heredia , DO Primary Care Provider Active Dr. Darius Ryan , DO Referring Provider, Emergency P rovider Active Dr. Maximilian Kitchen MD Admit Provider, Attending Provid er Active Dr. Michael Saravia MD Other Provider Active Team Status: Inactive Member Role Status Dates Dr. Richie Heredia , DO Primary Care Provider Active Dr. Darius Ryan , DO Attending Provider, Emergency P rovider Active Team Status: Inactive Member Role Status Dates Dr. Richie Heredia DO Primary Care Provider Active Dr. Darius Ryan , DO Referring Provider, Emergency P rovider Active Dr. Maximilian Kitchen MD Admit Provider, Attending Provid er Active Dr. Michael Saravia MD Other Provider Active Team Status: Active Member Role Status Dates Dr. Richie Heredia , Primary Care Provider Active Dr. Darius Ryan , DO Emergency Provider Active Dr. Junior Marquez MD Other Provider Active Dr. Remy Guido , Other Provider Active Dr. Mora Live MD Other Provider Active Dr. Dominic Cantu MD Other Provider Active Meave Parra NP, [facility] Other Provider Active Dr. Maximilian Kitchen MD Attending Provider Active Team Status: Active Member Role Status Dates Dr. Richie Heredia DO Primary Care Provider Active Dr. Darius Ryan , DO Emergency Provider Active Dr. Maximilian Kitchen MD Admit Provider, At tending Provider, Other Provider Active Dr. Michael Saravia MD Other Provider Active Team Status: Active Member Role Status Dates Dr. Richie Heredia , DO Primary Care Provider Active Team Status: Inactive Member Role Status Dates Dr. Richie Heredia DO Primary Care Provider Active Start: February 21, 2024 End: February 21, 2024 Dr. Juliocesar Hyatt DO Attending Provider Activ e Start: February 21, 2024 End: February 21, 2024 Dr. Juliocesar Hyatt DO Emergency Provider Activ e Start: February 21, 2024 End: February 21, 2024 Team Status: Inactive Member Role Status Dates Dr. Richie Heredia DO Primary Care Provider Active Start: March 09, 2024 End: March 10, 2024 Hunter Ryan MD Attending Provider Active Star t: March 09, 2024 End: March 10, 2024 Hunter Ryan MD Emergency Provider Active Star t: March 09, 2024 End: March 10, 2024 Team Status: Inactive Member Role Status Dates Dr. Richie Heredia DO Primary Care Provider Active Start: June 01, 2024 End: June 01, 2024 Dr. Darius Ryan DO Emergency Provider Active Start: June 01, 2024 End: June 01, 2024 Care Team (unrecognized sect ion and content) Personnel Name: RICHIE HEREDIA DO Address: Address: [address] [place] [address] Care Team Personnel Name: RICHIE HEREDIA DO Position: P4 Physician - Primary Care Member Role: Primary Care Physician Address: Address: [address] [place] [address] Care Team Related Persons Name: AMIE AGUIRRE Care Team Personnel Name: RICHIE HEREDIA DO Position: P4 Physician - Primary Care Member Role: Primary Care Physician Address: Address: [address] [place] [address] Care Team Related Persons Name: AMIE AGUIRRE Care Team Personnel Name: RICHIE HEREDIA DO Position: P4 Physician - Primary Care Member Role: Primary Care Physician Address: Address: [address] [place] [address] Care Team Related Persons Name: AMIE AGUIRRE Reason for Visit (unrecogniz ed section and content) Reason Comments 8/2 COLON EGD LODI Reason Comments Consult colonoscopy consult Specialty Diagnoses / Procedures Referred By Contac t Referred To Contact General Surgery / GENERAL SURGERY Diagnoses consult for colonoscopy referred by PCP - IN SCANNED DOC Procedures NEW DDI PATIENT Richie Heredia IV, MD [address] [place] [address] Mary Thomas PA-C [address] [place] [address] Referral ID Status Reason Start Date Expiration Date Visits Re quested Visits Authorized [id number] Closed 09/09/2021 02/21/2022 1 1 Reason Comments 10/07 colon/egd lodi INFORMATION SOURCE (unrecogn ized section and content) DATE CREATED AUTHOR 11/19/2021 [facility] DATE CREATED AUTHOR AUTHOR'S ORGANIZ ATION 09/06/2023 [facility] DATE CREATED AUTHOR AUTHOR'S ORGANIZ ATION 06/07/2024 [facility] DATE CREATED AUTHOR AUTHOR'S ORGANIZ ATION 09/10/2024 [facility] FOR RECORDS PERTAINING TO PATIENTS WHO ARE OR HAVE BEEN ENROLLED IN A CHEMICAL DEPENDENCY/SUBSTANCEABUSE PROGRAM, SOME INFORMATION MAY BE OMITTED. This clinical summary was aggregated from multiple sources. Caution should be exercised in using it in the provision of clinical care. This summary normalizes information from multiple sources, and as a consequence, information in this document may materially change the coding, format and clinical context of patient data. In addition, data may be omitted in some cases. CLINICAL DECISIONS SHOULD BE BASED ON THE PRIMARY CLINICAL RECORDS. [employer] [facility]. provides no warranty or guarantee of the accuracy or completeness of information in this document.
[2024-12-12 17:29] LABS: Color, Urine Yellow (Yellow); Glucose, Dipstick 1000 mg/dl (Normal); Ketone-Dipstick 5 mg/dl (Negative); Leukocyte Esterase-Dipstick Negative /ul (Negative); Nitrite-Dipstick Negative (Negative); Occult Blood-Urine Negative /ul (Negative); Protein-Dipstick 15 mg/dl (Negative); Specific Gravity, Urine 1.010 (1.002-1.030); Urine Bilirubin Dipstick Negative (Negative)
[2024-12-12 18:47] LABS: Differential Comment SCANNED
[2024-12-12 19:25] LABS: Squamous Epithelial Cells - UA 5-10 SEEN /hpf (5-10)
[2024-12-12 19:27] LABS: Red Blood Cells-Urine 0-5 SEEN /hpf (0-5)
--- OUTSIDE RECORDS SUMMARY | 2024-12-12 19:58 | XMS RPT_ITS | CCD ---
Author Organization [facility] [employer] Care Team Providers Care Mixer Whipped Topping Name Role Phone Nicola Johnson Primary Care [...] Referring Provider Dr. Darius Ryan Emergency Provider [phone] Dr. Junior Marquez Other Provider Dr. Remy Guido Other Provider Dr. Mora Live Other Provider Unavailable Dr. Dominic Cantu Other Provider Unavailab Castro ARCHITECTURE DEPARTMENT CHAIR, ARCHITECTURE DEPARTMENT CHAIR-C Maeve Other Provider Dr. Maximilian Kitchen Attending [...] Halko DO, Dr. Molina Primary Care Provider Olena DAVISON, Dr. Gandara Attending Provider Dr. Juliocesar Hyatt DO Emergency Provider Hunter Ryan MD Attending Provider Hunter Ryan MD Emergency Provider Dr. Darius Ryan DO Emergency Provider [phone] Halko, Richie Primary Care Unavailable Halko, Richie [...] [MEPERIDINE] Drug Allergy 7 Burning (qualifier value) [facility] (16 sources) Penicillins; Translations: [PENICILLINS] Propensity to adverse reactions 7 [facility] (6 sources) Propoxyphene; Translations: [PROPOXYPHENE HCL] Drug Allergy 7 [facility] (6 sources) Propoxyphene N-Acetaminophen; Translations: [PROPOXYPHENE N-ACETAMINOPHEN] Propensity to adverse reactions 7 [facility] (20 sources) Ampicillin; Translations: [ampicillin] Drug Allergy 2 Unknown, [facility] (20 sources) Penicillin; Translations: [penicillin] Drug Allergy Unknown [facility] (20 sources) Propoxyphene; Translations: [propoxyphene] Drug Allergy Unknown [facility] (9 sources) Codeine Drug Allergy 2 [facility] (10 sources) Meperidine; Translations: [meperidine HCl] Drug Allergy 2 [facility] (10 sources) Propoxyphene; Translations: [propoxyphene napsylate] Drug Allergy 2 [facility] (11 sources) cilostazol; Translations: [cilostazol] Drug Allergy dizziness, peripheral edema [facility] (1 source) Ampicillin Drug Allergy 5 [facility] (1 source) Codeine Drug Allergy 5 [facility] Medications Current Medications Medication Drug Class(es) Dates Sig (Normalized) Sig (Original) ACCU-CHEK MAURISIO PLUS TEST STRP (17 sources) Start: 10-25-2018 ACCU-CHEK MAURISIO PLUS TEST STRP ACCU-CHEK MAURISIO PLUS TEST [...] 1 Refill(s), 04/25/24 11:57:00 AM EST, Pharmacy: [facility], 155, cm, 10/28/23 11:31:00 EDT, Height, kg, 10/28/23 11:19:00 EDT, Dosing Weight Start Date: 10/28/23 Stop Date: 04/25/24 Status: Ordered Start: 08-31-2023 take 2 tablets by mo [facility] every eight hours Acetaminophen 500 mg [...] patient, # 180 tab(s), 0 Refill(s), Pharmacy: [facility], Low back pain with sciatica [...] 90 tab(s), 0 Refill(s), [id number], Low back pain with sciatica Inflammatory polyarthropathy, [...] 08/20/2023, # 120 tab(s), 0 Refill(s), Pharmacy: [facility], Low back pain with sciatica [...] 120 tab(s), 0 Refill(s), [facility] #[id number], Low back pain with sciatica Inflammatory polyarthropathy, [...] 120 tab(s), 0 Refill(s), [facility] #[id number], Low back pain with sciatica Inflammatory polyarthropathy, [...] 120 tab(s), 0 Refill(s), [facility]: [facility] #[id number], Low back pain with sciatica Inflammatory polyarthropathy, [...] # 120 tab(s), 0 Refill(s), [facility]: [facility], Low back pain with sciatica, 152, cm, 07/11/21 15:19:00 EDT, Height, 103... Start Date: 08/13/21 Stop Date: 09/12/21 Status: Ordered Start: 04-02-2016 End: 08-31-2023 take 1 tablet by mouth every six hours Percocet 5 mg-325 mg oral tablet Dose = 1 tab(s), Oral, q6hr, to be filled on or after 05/28/21, X 30 day(s), # 120 tab(s), 0 Refill(s), Pharmacy: [facility]/pharmacy #[id number], Inflammatory polyarthropathy Chronic low [...] dose, # 90 tab(s), 0 Refill(s), Pharmacy: [facility], 155, cm, 08/12/23 13:54:00 EDT, Height, kg, 08/12/23 13:54:00 EDT, Dosing Weight Start Date: 08/12/23 Stop Date: 11/10/23 Status: Ordered Start: 04-12-2023 End: 05-12-2023 amitriptyline 25 mg oral tab let Dose : 25 mg = 1 tab(s), Oral, qHS, # 30 tab(s), 0 Refill(s), Pharmacy: [facility][id number], 155, cm, 02/05/23 10:24:00 EST, Height, kg, 04/12/23 15:40:00 EST, Dosing Weight Start Date: 04/12/23 Stop Date: 05/12/23 Status: Ordered apixaban 5 mg oral tablet (6 sources) Factor Xa Inhibitor Start: 03-09-2024 Eliquis 5 mg oral tablet Dose : 5 mg = 1 tab(s), Oral, BID, dx I48.91, # 180 tab(s), 1 Refill(s), Pharmacy: [facility], 155, cm, 03/30/24 15:26:00 EST, Height, 104.1, kg, 03/30/24 15:26:00 EST, Dosing Weight Start Date: 04/25/24 Status: Ordered Quantity: 180.0 Unit: tab(s) Repeat number: 2 Start: 10-28-2023 Eliquis 5 mg o ral tablet Dose : 5 mg = 1 tab(s), Oral, BID, dx I48.91, # 180 tab(s), 1 Refill(s), Pharmacy: [facility], 155, cm, 10/28/23 11:31:00 EDT, Height, 99.5, kg, 10/28/23 11:19:00 EDT, Dosing Weight Start Date: 10/28/23 Status: Ordered Start: 06-10-2023 Eliquis 5 mg o ral tablet Dose : 5 mg = 1 tab(s), Oral, BID, dx I48.91, # 180 tab(s), 1 Refill(s), Pharmacy: [facility] #[id number], 155, cm, 06/10/23 16:49:00 EDT, Height, 108, kg, 06/10/23 16:49:00 EDT, Dosing Weight Start Date: 06/10/23 Status: Ordered aspirin 81 mg delayed release oral tablet (20 sources) Platelet Aggregation Inhibitor, Nonsteroidal Anti-inflammatory Drug Start: 04-13-2024 aspirin 81 mg ora l delayed release tablet Dose : 81 mg = 1 tab(s), Oral, Daily, # 90 tab(s), 1 Refill(s), Pharmacy: [facility], 155, cm, 03/30/24 15:26:00 EST, Height, kg, 03/30/24 15:26:00 EST, Dosing Weight Start Date: 04/13/24 Status: Ordered Quantity: 90.0 Unit: tab(s) Repeat number: 2 Start: 10-28-2023 aspirin 81 mg oral delayed release tablet Dose : 81 mg = 1 tab(s), Oral, Daily, # 90 tab(s), 1 Refill(s), Pharmacy: [facility], 155, cm, 10/28/23 11:31:00 EDT, [...] Refill(s), 06/25/22 16:52:00 EDT, [facility]: [facility] #[id number], 156, cm, 01/02/22 13:01:00 EST, Height, 118 Start Date: 03/27/22 Stop Date: 06/25/22 Status: Ordered bumetanide 1 mg oral tablet (12 sources) Loop Diuretic Start: 01-27-2023 bumetanide 1 mg oral tablet Dose : 1 mg = 1 tab(s), Oral, BID, # 180 tab(s), 1 Refill(s), Pharmacy: [facility], 155, cm, 03/30/24 15:26:00 EST, Height, kg, 03/30/24 15:26:00 EST, Dosing Weight Start Date: 04/25/24 Status: Ordered Quantity: 180.0 Unit: tab(s) Repeat number: 2 Start: 07-27-2022 End: 04-25-2024 bumetanide 1 mg oral tablet Dose : 1 mg = 1 tab(s), Oral, BID, # 180 tab(s), 1 Refill(s), Pharmacy: [facility], 155, cm, 10/28/23 11:31:00 EDT, Height, kg, 10/28/23 11:19:00 EDT, Dosing Weight Start Date: 10/28/23 Stop Date: 04/25/24 Status: Ordered buPROPion hydrochloride 75 mg oral tablet (15 sources) Aminoketone Start: 07-03-2024 buPROPion 75 m g oral tablet Dose : 75 mg = 1 tab(s), Oral, BID, am and afternoon, # 60 tab(s), 0 Refill(s), [facility]: [facility] #[id number], 150.3, cm, 07/03/24 14:25:00 EDT, Height, kg, [...] # 30 tab(s), 1 Refill(s), [facility]: [facility] #[id number], 155, cm, 10/14/22 9:25:00 EDT, Height, kg, [...] # 180 tab(s), 1 Refill(s), [facility]acy: [facility] #[id number], 155, cm, 03/30/24 15:26:00 EST, Height, kg, [...] 0 Refill(s), 12/05/23 9:18:00 AM EDT, [facility]acy: [facility] #[id number], 155, cm, 11/25/23 8:45:00 EDT, Height, 98.9, [...] qDay, # 90 cap(s), 1 Refill(s), Pharmacy: [facility] #[id number], 155, cm, 03/30/24 15:26:00 EST, Height, kg, [...] E11.42, # 1 EA, 11 Refill(s), [id number], Type 2 diabetes mellitus, 152.4, cm, 05/31/19 10:39:00 EDT, Height, 135.5, kg, 05/31/19 10:39:00 EDT, Dosing Weight Start Date: 07/04/19 Status: Ordered Quantity: 1.0 Unit: EA Repeat number: 12 Indications: Type 2 diabetes mellitus without complications; Start: 07-04-2019 DME MISCellane ous See Instructions, Accucheck 1 box of 100 testing 2 times daily; dx E11.42, # 1 EA, 11 Refill(s), Pharmacy: [facility]/pharmacy #[id number], Type 2 diabetes mellitus, [...] 0 Refill(s), 12/09/23 12:50:00 PM EDT, Pharmacy: [facility] #[id number], 155, cm, 11/25/23 8:45:00 EDT, Height, 98.9, kg, 11/25/23 8:45:00 EDT, Dosing Weight Start Date: 11/29/23 Stop Date: 12/09/23 Status: Ordered empagliflozin 25 mg oral tablet (20 sources) Sodium-Glucose Cotransporter 2 Inhibitor Start: 03-09-2024 Jardiance 25 m g oral tablet Dose : 25 mg = 1 tab(s), Oral, qAM, # 90 tab(s), 1 Refill(s), Pharmacy: [facility], 155, cm, 03/30/24 15:26:00 EST, [...] sources) Anticholinergic, Corticosteroid, beta2-Adrenergic Agonist Start: 01-27-2023 Kxkqoekqmzv-Liluidljo-Bx lanter (Trelegy Ellipta) 100-62.5-25 mcg blister with [...] Start: 03-09-2024 take 1 capsule by mo [facility] every twelve hours Gabapentin 400 mg capsule Active 400 mg PO Q12H March 09, 2024 1:00am Start: 11-25-2023 End: 12-25-2023 gabapentin 400 mg oral capsu le Dose : 400 mg = 1 cap(s), Oral, BID, fill on or after 11/26/2023, # 60 cap(s), 0 Refill(s), [facility]: [facility] #[id number], Low back pain with sciatica, 155, cm, 11/25/23 8:45:00 EDT, Height, 98.9, kg, 11/25/23 8:45:00 EDT, Dosing Weight Start Date: 11/25/23 Stop Date: 12/25/23 Status: Ordered Start: 08-12-2023 End: 09-11-2023 gabapentin 600 mg oral table t Dose : 600 mg = 1 tab(s), Oral, TID, new dose fill on or after 08/12/2023, # 90 tab(s), 0 Refill(s), Pharmacy: [facility], Diabetic neuropathy, 155, cm, 08/12/23 [...] 90 cap(s), 2 Refill(s), [facility]: [facility] #[id number], Radiculopathy, 156, cm, 01/02/22 13:01:00 EST, Height, [...] Refill(s), 07/25/22 16:39:00 EDT, [facility]acy: [facility] #[id number], 156, cm, 01/02/22 13:01:00 EST, Height Start Date: 01/26/22 Stop Date: 07/25/22 Status: Ordered 3 ml insulin detemir 100 unt/ml pen injector (1 source) Insulin Analog Start: 09-17-19 End: 12-16-19 inject 1 dose by subcutaneous injection twice daily Levemir 100 units/mL FlexPen 3 mL Pen Dose : 50 unit(s) =, Subcutaneous, BID, # 90 mL, 0 Refill(s), [facility]: [facility] #[id number], 152, cm, 08/31/22 9:34:00 EDT, Height, kg, [...] water, # 90 tab(s), 1 Refill(s), Pharmacy: [facility], 155, cm, 03/30/24 15:26:00 EST, [...] water, # 90 tab(s), 1 Refill(s), Pharmacy: [facility], 155, cm, 11/25/23 8:45:00 EDT, [...] water, # 90 tab(s), 0 Refill(s), Pharmacy: [facility], 155, cm, 08/12/23 13:54:00 EDT, Height, kg, 08/12/23 13:54:00 EDT, Dosing Weight Start Date: 08/13/23 Status: Ordered meclizine hydrochloride 25 m g oral tablet (20 sources) Antiemetic Start: 07-01-2023 meclizine 25 m g oral tablet Dose : 25 mg = 1 tab(s), Oral, TID, PRN as needed for dizziness, # 30 tab(s), 2 Refill(s), Pharmacy: [facility], 155, cm, 06/10/23 16:49:00 EDT, [...] dizziness, # 40 tab(s), 1 Refill(s), Pharmacy: [facility]/pharmacy #[id number], Benign positional vertigo, 152.4, cm, 05/31/19 10:39:00 EDT, Height, kg, 05/31/19 10:39:00 EDT, Dosing Weight Start Date: 05/31/19 Status: Ordered meloxicam 7.5 mg oral tablet (18 sources) Nonsteroidal Anti-inflammatory Drug Start: 03-09-2024 meloxicam 7.5 mg oral tablet Dose : 7.5 mg = 1 tab(s), Oral, qDay, # 90 tab(s), 1 Refill(s), Pharmacy: [facility], 155, cm, 03/30/24 15:26:00 EST, Height, kg, 03/30/24 15:26:00 EST, Dosing Weight Start Date: 04/13/24 Status: Ordered Quantity: 90.0 Unit: tab(s) Repeat number: 2 Start: 10-28-2023 meloxicam 7.5 mg oral tablet Dose : 7.5 mg = 1 tab(s), Oral, qDay, # 90 tab(s), 0 Refill(s), Pharmacy: [facility], 155, , 10/28/23 11:31:00 EDT, Height, kg, 10/28/23 11:19:00 EDT, Dosing Weight Start Date: 10/28/23 Status: Ordered Start: 07-26-2023 End: 01-22-2024 meloxicam 15 mg oral tablet Dose : 15 mg = 1 tab(s), Oral, qDay, # 90 tab(s), 1 Refill(s), Pharmacy: [facility], 155, , 07/08/23 16:10:00 EDT, [...] 90 tab(s), 1 Refill(s), [facility]: [facility] #[id number], 156, cm, 01/02/22 13:01:00 EST, Height, kg, [...] qDay, # 90 tab(s), 1 Refill(s), [facility], 155, cm, 03/30/24 15:26:00 EST, Height, kg, 03/30/24 15:26:00 EST, Dosing Weight Start Date: 04/13/24 Stop Date: 10/10/24 Status: Ordered Quantity: 90.0 Unit: tab(s) Repeat number: 2 Start: 08-13-2021 End: 07-25-2022 MetFORMIN (Eqv-Glucophage XR ) 500 mg oral tablet, EXTENDED RELEASE Dose : 1,000 mg = 2 tab(s), Oral, qDay, # 180 tab(s), 1 Refill(s), [facility]: [facility] #[id number], 156, cm, 01/02/22 13:01:00 EST, Height, kg, [...] BID, # 180 tab(s), 0 Refill(s), Pharmacy: [facility]/pharmacy #[id number], 155.4, cm, 04/30/21 13:11:00 EST, Height, kg, 04/30... Start Date: 04/30/21 Stop Date: 07/29/21 Status: Ordered take 2 tablets by mo [facility] twice daily at mealtime metFORMIN (GLUCOPHAGE) [...] dose, # 90 tab(s), 1 Refill(s), Pharmacy: [facility], 155, cm, 03/30/24 15:26:00 EST, Height, kg, 03/30/24 15:26:00 EST, Dosing Weight Start Date: 04/13/24 Status: Ordered Quantity: 90.0 Unit: tab(s) Repeat number: 2 Start: 10-28-2023 Metoprolol Suc cinate ER 50 mg oral TABLET extended release Dose : 50 mg = 1 tab(s), Oral, qDay, new dose, # 90 tab(s), 1 Refill(s), Pharmacy: [facility], 155, cm, 10/28/23 11:31:00 EDT, Height, kg, 10/28/23 11:19:00 EDT, Dosing Weight Start Date: 10/28/23 Status: Ordered Start: 08-28-2023 take 1 tablet by [facility] once daily Metoprolol Succinate 50 mg tablet extended release 24 hr Active 50 mg PO DAILY August 28, 2023 12:00am Start: 07-01-2023 Metoprolol Suc cinate ER 50 mg oral TABLET extended release Dose : 50 mg = 1 tab(s), Oral, qDay, new dose, # 90 tab(s), 1 Refill(s), Pharmacy: [facility], 155, cm, 06/10/23 16:49:00 EDT, Height, kg, 06/10/23 16:49:00 EDT, Dosing Weight Start Date: 07/01/23 Status: Ordered Start: 04-14-2021 End: 09-15-2023 Metoprolol Succinate ER 25 m g oral TABLET extended release Dose : 25 mg = 1 tab(s), Oral, qDay, # 90 tab(s), 1 Refill(s), [facility]acy: [facility] #[id number], 155, cm, 02/05/23 10:24:00 EST, Height, kg, 03/19/23 15:04:00 EST, Dosing Weight Start Date: 03/19/23 Stop Date: 09/15/23 Status: Ordered Start: 07-26-2020 End: 03-23-2021 Metoprolol Succinate ER 25 m g oral TABLET extended release Dose : 25 mg = 1 tab(s), Oral, qDay, # 120 tab(s), 1 Refill(s), Pharmacy: [facility]/pharmacy #[id number], 152.5, cm, 07/26/20 15:04:00 [...] qDay, # 16.9 mL, 0 Refill(s), Pharmacy: [facility]/pharmacy #[id number], 152.4, cm, 11/19/20 17:11:00 EDT, Height, kg, 11/19/20 17:11:00 EDT, Dosing Weight Start Date: 11/19/20 Status: Ordered 24 hr nicotine 0.292 mg/hr transdermal system (20 sources) Cholinergic Nicotinic Agonist Start: nicotine 14 mg/24 hr transdermal film, extended release Apply 1 patch(es), Transdermal, qDay, # 21 patch(es), 0 Refill(s), [facility]: [facility] #[id number], 155, cm, 02/05/23 10:24:00 EST, Height, 105.3, kg, 03/19/23 15:04:00 EST, Dosing Weight Start Date: 03/19/23 Status: Ordered Start: 03-19-2023 apply 1 dose transde rmal route once daily nicotine 21mg / 24hrs transdermal patch Dose = 1 patch(es), Transdermal, qDay, # 21 patch(es), 0 Refill(s), [facility]: [facility] #[id number], 155, cm, 02/05/23 10:24:00 EST, Height, kg, 03/19/23 15:04:00 EST, Dosing Weight Start Date: 03/19/23 Status: Ordered Start: 03-19-2023 nicotine 7 mg/ 24 hr transdermal film, extended release Apply 1 patch(es), Transdermal, qDay, # 21 patch(es), 0 Refill(s), [facility]: [facility] #[id number], 155, cm, 02/05/23 10:24:00 EST, Height, 105.3, kg, 03/19/23 15:04:00 EST, Dosing Weight Start Date: 03/19/23 Status: Ordered Start: 10-14-2022 nicotine 14 mg /24 hr transdermal film, extended release Apply 1 patch(es), Transdermal, qDay, # 21 patch(es), 0 Refill(s), Pharmacy: [facility] #[id number], 155, cm, 10/14/22 9:25:00 EDT, Height, 120.7, kg, 10/14/22 9:25:00 EDT, Dosing Weight Start Date: 10/14/22 Status: Ordered Start: 10-14-2022 nicotine 7 mg/ 24 hr transdermal film, extended release Apply 1 patch(es), Transdermal, qDay, # 21 patch(es), 0 Refill(s), Pharmacy: [facility] #[id number], 155, cm, 10/14/22 9:25:00 EDT, Height, 120.7, kg, 10/14/22 9:25:00 EDT, Dosing Weight Start Date: 10/14/22 Status: Ordered Start: 03-27-2022 apply 1 dose transde rmal route once daily nicotine 7mg / 24hrs transdermal patch Dose = 1 patch(es), Transdermal, qDay, # 21 patch(es), 0 Refill(s), [facility][id number], 156, cm, 01/02/22 13:01:00 EST, Height Start Date: 03/27/22 Status: Ordered Start: 01-26-2022 apply 1 dose transde rmal route once daily nicotine 21mg / 24hrs transdermal patch Dose = 1 patch(es), Transdermal, qDay, # 21 patch(es), 0 Refill(s), [facility]: [facility] #[id number], 156, cm, 01/02/22 13:01:00 EST, Height Start Date: 01/26/22 Status: Ordered Start: 01-26-2022 nicotine 14 mg /24 hr transdermal film, extended release Apply 1 patch(es), Transdermal, qDay, # 21 patch(es), 0 Refill(s), [facility][id number], 156, cm, 01/02/22 13:01:00 EST, Height, 118 Start Date: 03/27/22 Status: Ordered Start: 01-26-2022 nicotine 7 mg/ 24 hr transdermal film, extended release Apply 1 patch(es), Transdermal, qDay, # 21 patch(es), 0 Refill(s), [facility][id number], 156, cm, 01/02/22 13:01:00 EST, Height, 118, [...] number: 2 Start: 08-31-2023 End: 03-09-2024 Nystatin ([facility]) 100,000 un it/gram Powder Active 1 NMA [...] dose, # 30 tab(s), 0 Refill(s), Pharmacy: [facility], 150.3, cm, 08/07/24 15:40:00 EDT, Height, kg, 08/07/24 15:40:00 EDT, Dosing Weight Start Date: 08/07/24 Status: Ordered Quantity: 30.0 Unit: tab(s) Repeat number: 1 Start: 08-07-2024 End: 08-14-2024 OLANZapine 2.5 mg oral table t Dose : 2.5 mg = 1 tab(s), Oral, Daily, # 7 tab(s), 0 Refill(s), Pharmacy: [facility], 150.3, cm, 08/07/24 15:40:00 EDT, Height, kg, 08/07/24 15:40:00 EDT, Dosing Weight Start Date: 08/07/24 Stop Date: 08/14/24 Status: Ordered Quantity: 7.0 Unit: tab(s) Repeat number: 1 ondansetron 4 mg oral tablet (5 sources) Serotonin-3 Receptor Antagonist Start: 10-25-2020 Zofran 4 mg oral tab let Dose : 4 mg = 1 tab(s), Oral, q8h, # 10 tab(s), 1 Refill(s), Pharmacy: [facility]/pharmacy #[id number], Superficial thrombophlebitis of arm S/P laparoscopic cholecystectomy, 152.5, cm, 10/25/20 14:47:00 EDT, Height, kg, 10/25/20 14:47:00 EDT, Dosing Weight Start Date: 10/25/20 Status: Ordered Pen needles (4 sources) Start: 05-10-2019 Pen needles Se e Instructions, dispense #60 Novofine 32 G pen needles; 11 refills; dx E11.9, # 60 EA, 11 Refill(s), Pharmacy: [facility]/pharmacy #[id number], 153.5, cm, 04/17/19 16:11:00 EST, Height, 136.1, kg, 04/17/19 16:11:00 EST, Dosing Weight Start Date: 05/10/19 Status: Ordered pravastatin sodium 40 mg oral tablet (19 sources) HMG-CoA Reductase Inhibitor Start: 07-27-2022 End: 10-10-2024 pravastatin 40 mg oral tablet Dose : 40 mg = 1 tab(s), Oral, qHS, # 90 tab(s), 1 Refill(s), Pharmacy: [facility], 155, cm, 03/30/24 15:26:00 EST, Height, kg, 03/30/24 15:26:00 EST, Dosing Weight Start Date: 04/13/24 Stop Date: 10/10/24 Status: Ordered Quantity: 90.0 Unit: tab(s) Repeat number: 2 Start: 08-13-2021 End: 07-25-2022 pravastatin 20 mg oral table t Dose : 20 mg = 1 tab(s), Oral, qDay, # 90 tab(s), 1 Refill(s), Pharmacy: [facility] #[id number], 156, cm, 01/02/22 13:01:00 EST, Height, kg, [...] BID, # 360 tab(s), 1 Refill(s), Pharmacy: [facility], 155, cm, 03/30/24 15:26:00 EST, [...] BID, # 30 gram(s), 2 Refill(s), [id number], Cream, 152, cm, 11/28/21 14:22:00 EDT, Height, [...] qDay, # 3 EA, 1 Refill(s), [facility]: [facility] #[id number], 155, cm, 06/10/23 16:49:00 EDT, Height, kg, 06/10/23 16:49:00 EDT, Dosing Weight Start Date: 06/10/23 Stop Date: 12/07/23 Status: Ordered Start: 12-21-2022 End: 06-19-2023 take 1 dose by inhalation once daily Trelegy Ellipta 100 mcg-62.5 mcg-25 mcg/inh inhalation powder Dose = 1 puff(s), Inhalation, qDay, # 3 EA, 1 Refill(s), Pharmacy: [facility] #[id number], 155, cm, 12/21/22 14:33:00 EDT, Height, kg, 12/21/22 14:33:00 EDT, Dosing Weight Start Date: 12/21/22 Stop Date: 06/19/23 Status: Ordered Start: 07-27-2022 End: 01-23-2023 take 1 dose by inhalation once daily Trelegy Ellipta 100 mcg-62.5 mcg-25 mcg/inh inhalation powder Dose = 1 puff(s), Inhalation, qDay, # 3 EA, 1 Refill(s), Pharmacy: [facility] #[id number], 153, cm, 07/27/22 16:06:00 EDT, Height, kg, 07/27/22 16:06:00 EDT, Dosing Weight Start Date: 07/27/22 Stop Date: 01/23/23 Status: Ordered Start: 01-26-2022 End: 07-25-2022 take 1 dose by inhalation once daily Trelegy Ellipta 100 mcg-62.5 mcg-25 mcg/inh inhalation powder Dose = 1 puff(s), Inhalation, qDay, # 3 EA, 1 Refill(s), Pharmacy: [facility] #[id number], 156, cm, 01/02/22 13:01:00 EST, Height, kg, 01/26/22 15:00:00 EST, Dosing Weight Start Date: 01/26/22 Stop Date: 07/25/22 Status: Ordered Start: 08-13-2021 End: 02-09-2022 take 1 dose by inhalation once daily Trelegy Ellipta 100 mcg-62.5 mcg-25 mcg/inh inhalation powder Dose = 1 puff(s), Inhalation, qDay, # 3 EA, 1 Refill(s), Pharmacy: [facility], 152, cm, 07/11/21 15:19:00 EDT, Height, kg, 08/13/21 13:00:00 EDT, Dosing Weight Start Date: 08/13/21 Stop Date: 02/09/22 Status: Ordered Start: 02-06-2020 End: 08-04-2020 take 1 dose by inhalation once daily Trelegy Ellipta 100 mcg-62.5 mcg-25 mcg/inh inhalation powder Dose = 1 puff(s), Inhalation, qDay, # 3 EA, 1 Refill(s), Pharmacy: [facility]/pharmacy #[id number], 152, cm, 02/06/20 13:12:00 [...] food, # 90 tab(s), 0 Refill(s), Pharmacy: [facility], 150.3, cm, 07/03/24 14:25:00 EDT, Height, kg, 07/03/24 14:25:00 EDT, Dosing Weight Start Date: 08/04/24 Status: Ordered Quantity: 90.0 Unit: tab(s) Repeat number: 1 Start: 03-09-2024 take 1 tablet by [facility] once daily Venlafaxine 225 mg tablet extended release 24hr Active 225 mg PO DAILY March 09, 2024 1:00am Start: 08-02-2023 End: 01-29-2024 venlafaxine 225 mg oral tabl et, extended release Dose : 225 mg = 1 tab(s), Oral, qDay, new rx, # 90 tab(s), 1 Refill(s), Pharmacy: [facility], 155, cm, 10/28/23 11:31:00 EDT, [...] 90 cap(s), 0 Refill(s), [facility]: [facility][id number], 155, cm, 02/05/23 10:24:00 EST, Height, kg, [...] 100 tab(s), 1 Refill(s), [facility]: [facility] #[id number], 155, cm, 03/30/24 15:26:00 EST, Height, kg, 03/30/24 15:26:00 EST, Dosing Weight Start Date: 03/30/24 Status: Ordered Quantity: 100.0 Unit: tab(s) Repeat number: 2 Start: 10-28-2023 cyanocobalamin 500 mcg sublingual tablet Dose : 500 mcg = 1 tab(s), Sublingual, qDay, # 100 tab(s), 1 Refill(s), [facility]acy: [facility], 155, cm, 10/28/23 11:31:00 EDT, Height, kg, 10/28/23 11:19:00 EDT, Dosing Weight Start Date: 10/28/23 Status: Ordered Start: 06-10-2023 cyanocobalamin 500 mcg sublingual tablet Dose : 500 mcg = 1 tab(s), Sublingual, qDay, # 100 tab(s), 1 Refill(s), [facility]: [facility] #[id number], 155, cm, 06/10/23 16:49:00 EDT, Height, kg, 06/10/23 16:49:00 EDT, Dosing Weight Start Date: 06/10/23 Status: Ordered Start: 01-26-2023 cyanocobalamin 500 mcg sublingual tablet Dose : 500 mcg = 1 tab(s), Sublingual, qDay, # 100 tab(s), 0 Refill(s), Pharmacy: [facility] #[id number], 155, cm, 01/08/23 16:04:00 EST, Height, kg, 01/08/23 16:04:00 EST, Dosing Weight Start Date: 01/26/23 Status: Ordered Start: 01-26-2023 cyanocobalamin 500 mcg sublingual tablet Dose : 500 mcg = 1 tab(s), Sublingual, qDay, # 100 tab(s), 0 Refill(s), [facility]: [facility] #[id number], 155, cm, 01/08/23 16:04:00 EST, Height, kg, [...] QID, # 360 mL, 5 Refill(s), [facility], 155, cm, 10/28/23 11:31:00 EDT, Height, [...] wheezing, # 3 EA, 1 Refill(s), Pharmacy: [facility] #[id number], 156, cm, 01/02/22 13:01:00 EST, Height Start Date: 04/01/22 Stop Date: 09/28/22 Status: Ordered Start: 04-14-2021 End: 07-25-2022 take 1 dose by inhalation four times daily albuterol 0.63 mg/3 mL (0.021%) inhalation solution Dose : 0.63 mg = 3 mL, Nebulized, QID, # 360 mL, 5 Refill(s), Pharmacy: [facility] #[id number], 156, cm, 01/02/22 13:01:00 EST, Height, kg, 01/26/22 15:00:00 EST, Dosing Weight Start Date: 01/26/22 Stop Date: 07/25/22 Status: Ordered Start: 04-14-2021 End: 10-11-2021 take 1 dose by inhalation four times daily albuterol 0.63 mg/3 mL (0.021%) inhalation solution Dose : 0.63 mg = 3 mL, Nebulized, QID, # 360 mL, 5 Refill(s), Pharmacy: [facility]/pharmacy #[id number], 154.5, cm, 04/14/21 16:08:00 EST, Height, kg, 04/14/21 16:08:00 EST, Dosing Weight Start Date: 04/14/21 Stop Date: 10/11/21 Status: Ordered Start: 2019 End: 01-20-2020 take 1 dose by inhalation four times daily albuterol 0.63 mg/3 mL (0.021%) inhalation solution Dose : 0.63 mg = 3 mL, Nebulized, QID, # 360 mL, 5 Refill(s), Pharmacy: [facility]/pharmacy #[id number], 152.5, cm, 07/14/19 15:58:00 EDT, Height, kg, 07/24/19 15:44:00 EDT, Dosing Weight Start Date: 07/24/19 Stop Date: 01/20/20 Status: Ordered albuterol MDI (90 mcg/inh) CFC free inhalation aerosol (17 sources) Start: 10-28-2023 End: 04-25-2024 take 2 puff(s) by inhalation every four hours albuterol MDI (90 mcg/inh) CFC free inhalation aerosol 2 puff(s), Inhalation, q4h, # 3 EA, 1 Refill(s), Pharmacy: [facility], Wheezing, 155, cm, 10/28/23 11:31:00 EDT, Height, kg, 10/28/23 11:19:00 EDT, Dosing Weight Start Date: 10/28/23 Stop Date: 04/25/24 Status: Ordered Quantity: 3.0 Unit: EA Repeat number: 2 Indications: Wheezing; Start: 10-28-2023 End: 04-25-2024 take 2 puff(s) by inhalation every four hours albuterol MDI (90 mcg/inh) CFC free inhalation aerosol 2 puff(s), Inhalation, q4h, # 3 EA, 1 Refill(s), Pharmacy: [facility], Wheezing, 155, cm, 10/28/23 11:31:00 EDT, Height, kg, 10/28/23 11:19:00 EDT, Dosing Weight Start Date: 10/28/23 Stop Date: 04/25/24 Status: Ordered Start: 07-26-2023 End: 01-22-2024 take 2 puff(s) by inhalation every four hours albuterol MDI (90 mcg/inh) CFC free inhalation aerosol 2 puff(s), Inhalation, q4h, # 3 EA, 1 Refill(s), Pharmacy: [facility], Wheezing, 155, cm, 07/08/23 16:10:00 EDT, Height, kg, 07/08/23 16:10:00 EDT, Dosing Weight Start Date: 07/26/23 Stop Date: 01/22/24 Status: Ordered Start: 03-19-2023 End: 09-15-2023 take 2 puff(s) by inhalation every four hours albuterol MDI (90 mcg/inh) CFC free inhalation aerosol 2 puff(s), Inhalation, q4h, dispense Proair, # 3 EA, 1 Refill(s), [id number], Wheezing, 155, cm, 02/05/23 10:24:00 EST, Height, kg, 03/19/23 15:04:00 EST, Dosing Weight Start Date: 03/19/23 Stop Date: 09/15/23 Status: Ordered Start: 09-16-2022 End: 03-15-2023 take 2 puff(s) by inhalation every four hours albuterol MDI (90 mcg/inh) CFC free inhalation aerosol 2 puff(s), Inhalation, q4h, dispense Proair, # 3 EA, 1 Refill(s), [facility]: [facility] #[id number], Wheezing, 152, cm, 08/31/22 9:34:00 EDT, Height, kg, 08/31/22 9:34:00 EDT, Dosing Weight Start Date: 09/16/22 Stop Date: 03/15/23 Status: Ordered Start: 03-18-2022 End: 09-14-2022 take 2 puff(s) by inhalation every four hours albuterol MDI (90 mcg/inh) CFC free inhalation aerosol 2 puff(s), Inhalation, q4h, # 3 EA, 1 Refill(s), [facility]: [facility] #[id number], Wheezing, 156, cm, 01/02/22 13:01:00 EST, Height, kg, 02/25/22 15:58:00 EST, Dosing Weight Start Date: 03/18/22 Stop Date: 09/14/22 Status: Ordered Start: 08-13-2021 End: 02-09-2022 take 2 puff(s) by inhalation every four hours albuterol MDI (90 mcg/inh) CFC free inhalation aerosol 2 puff(s), Inhalation, q4h, # 3 EA, 1 Refill(s), [facility], Wheezing, 152, cm, 07/11/21 15:19:00 EDT, Height, kg, 08/13/21 13:00:00 EDT, Dosing Weight Start Date: 08/13/21 Stop Date: 02/09/22 Status: Ordered Start: 03-13-2021 End: 09-09-2021 take 2 puff(s) by inhalation every four hours albuterol MDI (90 mcg/inh) CFC free inhalation aerosol 2 puff(s), Inhalation, q4h, # 3 EA, 1 Refill(s), Pharmacy: [facility]/pharmacy #[id number], Wheezing, 153.5, cm, 03/13/21 11:47:00 EST, Height, kg, 03/13/21 11:47:00 EST, Dosing Weight Start Date: 03/13/21 Stop Date: 09/09/21 Status: Ordered Start: 11-15-2019 End: 12-15-2019 take 2 puff(s) by inhalation every four hours albuterol MDI (90 mcg/inh) CFC free inhalation aerosol 2 puff(s), Inhalation, q4h, # 1 EA, 0 Refill(s), Pharmacy: [facility]/pharmacy #[id number], Wheezing, 155, cm, 11/15/19 [...] mg/ml oral solution (3 sources) Phenothiazine, Uncompetitive N-stdynf-J-aspartate Receptor Antagonist, Sigma-1 Agonist Start: 07-27-2022 End: 10-19-2022 take 1 dose by mouth every six hours dextromethorphan-promethazine 15 mg-6.25 mg/5 mL oral syrup Dose = 5 mL, Oral, q6hr, # 280 mL, 5 Refill(s), [facility]: [facility] #[id number], 153, cm, 07/27/22 16:06:00 EDT, Height Start [...] 90 tab(s), 1 Refill(s), [facility]: [facility] #[id number], 153, cm, 07/27/22 16:06:00 EDT, Height, kg, 07/27/22 16:06:00 EDT, Dosing Weight Start Date: 07/27/22 Status: Ordered Start: 01-26-2022 escitalopram 2 0 mg oral tablet Dose : 20 mg = 1 tab(s), Oral, qDay, increased dose, # 90 tab(s), 1 Refill(s), [facility]: [facility] #[id number], 156, cm, 01/02/22 13:01:00 EST, Height, kg, 01/26/22 15:00:00 EST, Dosing Weight Start Date: 01/26/22 Status: Ordered Start: 08-13-2021 End: 02-09-2022 escitalopram 10 mg oral tabl et Dose : 10 mg = 1 tab(s), Oral, qDay, # 90 tab(s), 1 Refill(s), [facility]: [facility], 152, cm, 07/11/21 15:19:00 EDT, Height, [...] time, # 90 mL, 1 Refill(s), Pharmacy: [facility] #[id number], 155, cm, 06/10/23 16:49:00 EDT, Height, kg, 06/10/23 16:49:00 EDT, Dosing Weight Start Date: 06/10/23 Stop Date: 12/07/23 Status: Ordered Quantity: 90.0 Unit: mL Repeat number: 2 Start: 03-13-2021 End: 07-25-2022 inject 1 dose by subcutaneous injection twice daily Lantus Solostar Pen 100 units/mL 3 mL Pen Dose : 50 unit(s) =, Subcutaneous, BID, # 90 mL, 1 Refill(s), Pharmacy: [facility] #[id number], 156, cm, 01/02/22 13:01:00 EST, Height, kg, 01/26/22 15:00:00 EST, Dosing Weight Start Date: 01/26/22 Stop Date: 07/25/22 Status: Ordered Start: 12-17-2020 End: 09-09-2021 inject 1 dose by subcutaneous injection twice daily Lantus Solostar Pen 100 units/mL 3 mL Pen Dose : 50 unit(s) =, Subcutaneous, BID, # 90 mL, 1 Refill(s), Pharmacy: [facility]/pharmacy #[id number], 153.5, cm, 03/13/21 11:47:00 [...] mouth four times daily. polyethylene glycol 3350 414601 mg / potassium chloride 2970 mg / sodium bicarbonate 6740 mg / sodium chloride 5860 mg / sodium sulfate 43992 mg powder for oral solution (2 sources) [...] qDayM, # 5 tab(s), 0 Refill(s), Pharmacy: [facility]/pharmacy #[id number], 154.5, cm, 04/14/21 16:08:00 EST, Height, kg, 04/14/21 16:08:00 EST, Dosing Weight Start Date: 04/25/21 Stop Date: 04/30/21 Status: Ordered Start: 04-14-2021 End: 04-19-2021 predniSONE 50 mg oral tablet Dose : 50 mg = 1 tab(s), Oral, qDayM, # 5 tab(s), 0 Refill(s), Pharmacy: [facility]/pharmacy #[id number], 154.5, cm, 04/14/21 16:08:00 EST, Height, kg, 04/14/21 16:08:00 EST, Dosing Weight Start Date: 04/14/21 Stop Date: 04/19/21 Status: Ordered Start: 01-13-2021 End: 01-18-2021 predniSONE 50 mg oral tablet Dose : 50 mg = 1 tab(s), Oral, qDayM, # 5 tab(s), 0 Refill(s), Pharmacy: [facility]/pharmacy #[id number], 153, cm, 12/24/20 14:55:00 [...] qWeek, # 3 EA, 0 Refill(s), [id number], 152.5, cm, 08/23/20 14:51:00 EDT, Height, [...] Test Name Value Interpretation Reference Range Facility [facility] 09-07-2024 Order Number [id number] [facility] Comment on above: Order Comment: Send to [facility] lavender frozen [id number] pour off Performed By: #### U PACO HANNON #### [address] Test Name phosphorylated tau 217 [facility] Comment on above: Order Comment: Send to [facility] lavender frozen [id number] pour off Performed By: #### U PARVEZ UA #### [address] 09-06-2024 [facility] Result COMMENT Normal [facility] Comment on above: Order Comment: Send to [facility] [facility] lavender frozen [id number] pour off Result Comment: Test Ordered: [id number] 0.99 [H ] pg/mL L9 Reference Range: 0.00-0.18 This test was developed and its performance characteristics determined by [employer]. It has not been cleared or approved by the Food and Drug Administration. Clinical cutoff value was established using samples from a patient cohort characterized with amyloid PET data. A p-yvh464 value of >0.18 is a reported surrogate marker for beta amyloid pathology, and can be used to facilitate biological identification of Alzheimer's disease (1). p-qhi608 has also been used in clinical trials to monitor patients on anti-amyloid therapy (2,3). Test performed by [employer] chemiluminescent enzyme immunoassay (CLEIA). Values obtained with different methods cannot be used interchangeably. The validated limit of quantification is 0.06 pg/mL. Assay detection limit is 0.03 pg/mL. Footnotes Comment L9 1. Obdulio Loyola, et al. "Diagnostic Accuracy of a Plasma Phosphorylated Tau 217 Immunoassay for Alzheimer Disease Pathology." [facility] [facility] (2023). 2. Obdulio Loyola, et al. "Differential roles of A42/40, p-cze100 and p-ipc603 for Alzheimer's trial selection and disease monitoring." Nature medicine 28.12 (2021): 0392-2651. 3. Livia ART, Peyton M, [place], et al. "Association of Donanemab Treatment With Exploratory Plasma Biomarkers in Early Symptomatic Alzheimer Disease: A Secondary Analysis of the TRAILBLAZER-ALZ Randomized Clinical Trial". [facility]. 2021;79(12):0084-0751. Performed At: [facility] [id number] Shi Joy PhD Ph:[phone] Performed At: L[facility] [address] [place] [address], [place] [id number] Clem Nazario MD Ph:[phone] Performed By: #### U PARVEZ UA #### [address] [address] .Auto Diffon 09-01-2024 Basophil, Absolute 0.1 10 3/mcL Normal 0.0-0.3 [facility] Comment on above: Performed By: #### U AMICAO, UA #### [address] [address] Basophils/100 WBC (Bld) 0.8 % Normal 0.0-2.5 [facility] Comment on above: Performed By: #### U AMICAO, UA #### [address] [address] Eosinophil, Absolute 0.2 10 3/mcL Normal 0.0-0.7 [facility] Comment on above: Performed By: #### U AMICAO, UA #### [address] [address] Eosinophils/100 WBC (Bld) 1.7 % Normal 0.0-6.0 [facility] Comment on above: Performed By: #### U AMICAO, UA #### [address] [address] Lymphocyte, Absolute 2.7 10 3/mcL Normal 0.9-4.3 [facility] Comment on above: Performed By: #### U AMICAO, UA #### [address] [address] Lymphocytes/100 WBC (Bld) 27.3 % Normal 20.0-40.0 [facility] Comment on above: Performed By: #### U AMICAO, UA #### [address] [address] Monocyte, Absolute 0.6 10 3/mcL Normal 0.1-1.4 [facility] Comment on above: Performed By: #### U AMICAO, UA #### [address] [address] Monocytes/100 WBC (Bld) 5.9 % Normal 2.0-13.0 [facility] Comment on above: Performed By: #### U PARVEZ UA #### [address] [place], [place] [address] Neutrophils/100 WBC (Bld) 64.3 % Normal 50.0-75.0 [facility] Comment on above: Performed By: #### U PARVEZ UA #### [address] [place], [place] [address] .GFRon 09-01-2024 Estimated Glomerular Filtration Rate 41 ml/min/1.73sqm Normal [facility] Comment on above: Result Comment: Stages of [...] CBC, ADIFF, VIDH, A1C, CMP, ANEU #### [address] [address] #### B12 #### [address] [address] .NEUABSon 09-01-2024 Neutrophil, Absolute 6.3 10 3/mcL Normal 2.3-8.1 [facility] Comment on above: Performed By: #### U PARVEZ UA #### [address] [place], [place] [address] A1Con 09-01-2024 Glucose [Mass/Vol] 128 mg/dL Normal [facility] Comment on above: Result Comment: Eloisa mated Average Glucose calculated by equation ((28.7xA1C)-46.7) Estimated average glucose (eAG) is a calculated value from Hemoglobin A1C and is client care representative of the average blood glucose level in the last 2-3 month period. Normal range: less than 114 mg/dL Performed By: #### T SH, GFR, FT4, CBC, ADIFF, VIDH, A1C, CMP, ANEU #### [address] [address] #### B12 #### [address] [address] HbA1c (Bld) [Mass fraction] 6.1 % Normal 4.3-6.4 [facility] Comment on above: Performed By: #### T SH, GFR, FT4, CBC, ADIFF, VIDH, A1C, CMP, ANEU #### [address] [address] #### B12 #### [address] [address] B12on 09-01-2024 Cobalamin (Vitamin B12) [Mass/Vol] 336 pg/mL Normal 211-911 [facility] Comment on above: Performed By: #### T SH, GFR, FT4, CBC, ADIFF, VIDH, A1C, CMP, ANEU #### [address] [address] #### B12 #### [address] [address] CBCon 09-01-2024 Erythrocyte distribution width (RBC) [Ratio] 14.9 % Normal 11.5-15.5 [facility] Comment on above: Performed By: #### U PARVEZ UA #### [address] [address] Hematocrit (Bld) [Volume fraction] 42.0 % Normal 34.0-46.0 [facility] Comment on above: Performed By: #### U PARVEZ UA #### [address] [address] Hgb 13.9 G/dL Normal 12.0-16.0 [facility] Comment on above: Performed By: #### PACO ASHFORD #### [address] [address] MCH (RBC) [Entitic mass] 31.3 pg Normal 27.0-33.0 [facility] Comment on above: Performed By: #### PACO ASHFORD #### [address] [address] MCHC 33.0 G/dL Normal 32.0-36.0 [facility] Comment on above: Performed By: #### Kush HANNON UA #### [address] [address] MCV (RBC) [Entitic vol] 94.8 fL Normal 80.0-99.0 [facility] Comment on above: Performed By: #### Kush HANNON UA #### [address] [address] Platelet 274 10 3/mcL Normal 150-450 [facility] Comment on above: Performed By: #### PACO ASHFORD #### [address] [address] Platelet mean volume (Bld) [Entitic vol] 10.8 fL High 6.6-10.5 [facility] Comment on above: Performed By: #### Kush HANNON UA #### [address] [address] RBC 4.43 10 6/mcL Normal 4.10-5.30 [facility] Comment on above: Performed By: #### Kush HANNON UA #### [address] [address] WBC 9.8 10 3/mcL Normal 4.5-10.8 [facility] Comment on above: Performed By: #### Kush HANNON UA #### [address] [address] CMPon 09-01-2024 Albumin Level 3.5 G/dL Normal 3.4-4.8 [facility] Comment on above: Performed By: #### T SH, GFR, FT4, CBC, ADIFF, VIDH, A1C, CMP, ANEU #### [place] [address] #### B12 #### [address] [address] Albumin/Globulin [Mass ratio] 0.9 {ratio} Low 1.1-2.5 [facility] Comment on above: Performed By: #### T SH, GFR, FT4, CBC, ADIFF, VIDH, A1C, CMP, ANEU #### [place] [address] #### B12 #### [address] [address] ALP [Catalytic activity/Vol] 114 U/L Normal 40-135 [facility] Comment on above: Performed By: #### T SH, GFR, FT4, CBC, ADIFF, VIDH, A1C, CMP, ANEU #### [place] [address] #### B12 #### [place] [address] ALT [Catalytic activity/Vol] 19 U/L Normal 14-59 [facility] Comment on above: Performed By: #### T SH, GFR, FT4, CBC, ADIFF, VIDH, A1C, CMP, ANEU #### [place] [address] #### B12 #### [place] [address] AST [Catalytic activity/Vol] 13 U/L Normal 10-40 [facility] Comment on above: Performed By: #### T SH, GFR, FT4, CBC, ADIFF, VIDH, A1C, CMP, ANEU #### [place] [address] #### B12 #### [place] [address] Bili Total 0.4 mg/dL Normal 0.2-1.0 [facility] Comment on above: Result Comment: Use of this assay is not recommended for patients undergoing treatment with eltrombopag due to the potential for falsely elevated results. Performed By: #### T SH, GFR, FT4, CBC, ADIFF, VIDH, A1C, CMP, ANEU #### [address] [address] #### B12 #### [address] [address] BUN/Creatinine Ratio 16 ratio Normal 7-27 [facility] Comment on above: Performed By: #### T SH, GFR, FT4, CBC, ADIFF, VIDH, A1C, CMP, ANEU #### [place] [address] #### B12 #### [address] [address] Calcium [Mass/Vol] 9.4 mg/dL Normal 8.4-10.2 [facility] Comment on above: Performed By: #### T SH, GFR, FT4, CBC, ADIFF, VIDH, A1C, CMP, ANEU #### [place] [address] #### B12 #### [address] [address] Chloride [Moles/Vol] 104 mmol/L Normal 98-107 [facility] Comment on above: Performed By: #### T SH, GFR, FT4, CBC, ADIFF, VIDH, A1C, CMP, ANEU #### [place] [address] #### B12 #### [address] [address] CO2 [Moles/Vol] 29 mmol/L Normal 23-31 [facility] Comment on above: Performed By: #### T SH, GFR, FT4, CBC, ADIFF, VIDH, A1C, CMP, ANEU #### [place] [address] #### B12 #### [address] [address] Creatinine [Mass/Vol] 1.37 mg/dL High 0.51-0.95 [facility] Comment on above: Performed By: #### T SH, GFR, FT4, CBC, ADIFF, VIDH, A1C, CMP, ANEU #### [place] [address] #### B12 #### [address] [address] Electrolyte Balance 10.0 mEq/L Normal 4.0-15.0 [facility] Comment on above: Performed By: #### T SH, GFR, FT4, CBC, ADIFF, VIDH, A1C, CMP, ANEU #### [place] [address] #### B12 #### [address] [address] Globulin 3.9 G/dL Normal 2.7-4.4 [facility] Comment on above: Performed By: #### T SH, GFR, FT4, CBC, ADIFF, VIDH, A1C, CMP, ANEU #### [place] [address] #### B12 #### [place] [address] Glucose [Mass/Vol] 174 mg/dL High 83-110 [facility] Comment on above: Performed By: #### T SH, GFR, FT4, CBC, ADIFF, VIDH, A1C, CMP, ANEU #### [place] [address] #### B12 #### [place] [address] Potassium [Moles/Vol] 3.5 mmol/L Normal 3.5-5.1 [facility] Comment on above: Performed By: #### T SH, GFR, FT4, CBC, ADIFF, VIDH, A1C, CMP, ANEU #### [place] [address] #### B12 #### [address] [address] Sodium [Moles/Vol] 143 mmol/L Normal 136-145 [facility] Comment on above: Performed By: #### T SH, GFR, FT4, CBC, ADIFF, VIDH, A1C, CMP, ANEU #### [address] [address] #### B12 #### [place] [address] Total Protein 7.4 G/dL Normal 6.4-8.2 [facility] Comment on above: Performed By: #### T SH, GFR, FT4, CBC, ADIFF, VIDH, A1C, CMP, ANEU #### [address] [address] #### B12 #### [place] [address] Urea nitrogen [Mass/Vol] 22 mg/dL High 7-18 [facility] Comment on above: Performed By: #### T SH, GFR, FT4, CBC, ADIFF, VIDH, A1C, CMP, ANEU #### [place] [address] #### B12 #### [place] [address] FT4on 09-01-2024 Free T4 [Mass/Vol] 0.99 ng/dL Normal 0.76-1.46 [facility] Comment on above: Performed By: #### T SH, GFR, FT4, CBC, ADIFF, VIDH, A1C, CMP, ANEU #### [place] [address] #### B12 #### [place] [address] LABORATORYOrdered By: SYSTEM SYSTEM on 09-01-2024 25-hydroxyvitamin [...] calculated value from Hemoglobin A1C and is client care representative of the average blood glucose level [...] 09-01-2024 Cholesterol [Mass/Vol] 167 mg/dL Normal 0-200 [facility] Comment on above: Result Comment: Chol esterol Reference Interval: Less than 200 Desirable 200-239 Borderline high risk 240 and above High risk Performed By: #### T SH, GFR, FT4, CBC, ADIFF, VIDH, A1C, CMP, ANEU #### [address] [address] #### B12 #### [address] [address] Cholesterol in HDL [Mass/Vol] 42 mg/dL Normal 40-60 [facility] Comment on above: Performed By: #### T SH, GFR, FT4, CBC, ADIFF, VIDH, A1C, CMP, ANEU #### [address] [address] #### B12 #### [address] [address] Cholesterol in LDL [Mass/Vol] 98 mg/dL Normal 0-130 [facility] Comment on above: Performed By: #### T SH, GFR, FT4, CBC, ADIFF, VIDH, A1C, CMP, ANEU #### [address] [address] #### B12 #### [address] [address] Triglyceride [Mass/Vol] 136 mg/dL Normal 0-150 [facility] Comment on above: Result Comment: Trig lyceride Reference Interval: Less than 150 Normal 150-199 Borderline high risk 200-499 High risk 500 or higher Very high risk Performed By: #### T SH, GFR, FT4, CBC, ADIFF, VIDH, A1C, CMP, ANEU #### [address] [address] #### B12 #### [address] [address] TSHon 09-01-2024 TSH Qn 0.86 m[IU]/L Normal 0.36-3.74 [facility] Comment on above: Performed By: #### U AMIMIRYAM, UA #### [place] [address] VIDHon 09-01-2024 Vit. D 25-Hydroxy 48.6 ng/mL Normal [facility] Comment on above: Result Comment: Inte rpretive Values Based on Total 25(OH) Vitamin D: Deficient <20 ng/mL Insufficient 20 - <30 ng/mL Sufficient 30-100 ng/mL Performed By: #### T SH, GFR, FT4, CBC, ADIFF, VIDH, A1C, CMP, ANEU #### [facility] [address] [place], [place] [address] #### B12 #### [facility] [address] [place] [address] LEVOFLOXACIN:SUSC:PT:ISOLATE :ORDQN:MICon 08-07-2024 levoFLOXacin TWYLA [Susc] >100,000 cfu/ml Escherichia coli [facility] Work Phone: levoFLOXacin TWYLA [Susc]on Escherichia coli Escherichia coli [facility] Work Phone: Urine Cultureon 06-03-2024 [facility] Escherichia coli Morrice Count >100,000 Escherichia coli: REACTION Ampicillin Islt [...] TMP SMX Islt TWYLA >=320 R Normal [facility] Comment on above: Performed By: #### L 501.4020, L500.2500, L100.0100 #### [facility] [address] [place], [address] 12 Lead EKGon 06-01-2024 12 Lead EKG [facility] [address] [place] [address] 12 Lead EKG 06/01/24 1119 MR#: [id number] Acct: [id number] Name: [address] Rep #: [id number] : 1950 73 From: Richie Small MD [...] undetermined Abnormal ECG Confirmed by Richie Small ([id number]), purchasing expeditor MARY SAENZ ([id number]) on 06/05/2024 6:39:06 AM Referred By: Confirmed By: Richie Small 06/05/24 0639 Date Richie Small MD CC: Dr. Darius Ryan DO; Dr. Richie Heredia DO Signed Normal [facility] Absolute neutrophil countOrd ered By: Darius Ryan on 06-01-2024 Neutrophils (Bld) [#/Vol] 6.8 10*3/uL 2.0-7.7 [facility] Anion gap in Serum or Plasma Ordered By: Darius Ryan on 06-01-2024 Anion gap [Moles/Vol] 11 mmol/L 5-15 [facility] BUN/creatinine ratioOrdered By: Darius Ryan on 06-01-2024 Urea nitrogen/Creatinine [Mass ratio] 20.4 mg/mg High 10-20 [facility] Basophil percentageOrdered B y: Darius Ryan on 06-01-2024 Basophils/100 WBC (Bld) 0.5 % 0-1 [facility] Bilirubin Test strip Ql (U)O rdered By: aDrius Ryan on 06-01-2024 Bilirubin Ql (U) Negative Negative [facility] Bilirubin, totalOrdered By: Darius Ryan on 06-01-2024 Bilirubin [Mass/Vol] mg/dL 0.00-1.30 [facility] CBC W/Diff, Automatedon 04-1 0-5 Absolute Lymph 2.69 X10 3/uL Normal 0.83-4.51 [facility] Comment on above: Performed By: #### L 100.0100, L500.4050 ####[facility] [id number] [place], [address] Absolute Neut 6.8 X10 3/uL Normal 2.0-7.7 [facility] Comment on above: Performed By: #### L 100.0100, L500.4050 ####[facility] [id number] [place], [address] Basophils/100 WBC (Bld) 0.5 % Normal 0-1 [facility] Comment on above: Performed By: #### L 100.0100, L500.4050 ####[facility] [id number] [place], [address] Eosinophils/100 WBC (Bld) 2.8 % Normal 0-5 [facility] Comment on above: Performed By: #### L 100.0100, L500.4050 ####[facility] [id number] [place], [address] Erythrocyte distribution width (RBC) [Ratio] 13.8 % Normal 11.6-14.6 [facility] Comment on above: Performed By: #### L 100.0100, L500.4050 ####[facility] [address] [place], [address] Hematocrit (Bld) [Volume fraction] 36.6 % Low 37-47 [facility] Comment on above: Performed By: #### L 100.0100, L500.4050 ####[facility] [address] [place], [address] Hemoglobin (Bld) [Mass/Vol] 11.8 g/dL Low 12.0-15.0 [facility] Comment on above: Performed By: #### L 100.0100, L500.4050 ####[facility] [address] [place], [address] IG% 0.500 Normal 0.0-0.9 [facility] Comment on above: Result Comment: IG% - Immature Granulocytes (promyelocytes, myelocytes and metamyelocytes) > 1% indicates that a LEFT SHIFT is Present. Performed By: #### L 100.0100, L500.4050 ####[facility] [address] [place], [address] Lymphocytes/100 WBC (Bld) 25.7 % Normal 19-41 [facility] Comment on above: Performed By: #### L 100.0100, L500.4050 ####[facility] [address] [place], [address] MCH (RBC) [Entitic mass] 31.6 pg Normal 27.0-32.0 [facility] Comment on above: Performed By: #### L 100.0100, L500.4050 ####[facility] [address] [place], [address] MCHC (RBC) [Mass/Vol] 32.2 g/dL Normal 32-36 [facility] Comment on above: Performed By: #### L 100.0100, L500.4050 ####[facility] [address] [place], [address] MCV (RBC) [Entitic vol] 98.1 fL Normal 81-99 [facility] Comment on above: Performed By: #### L 100.0100, L500.4050 ####[facility] [address] [place], [address] Monocytes/100 WBC (Bld) 5.7 % Normal 0-10 [facility] Comment on above: Performed By: #### L 100.0100, L500.4050 ####[facility] [address] [place], [address] Neutrophils/100 WBC (Bld) 64.8 % Normal 47-70 [facility] Comment on above: Performed By: #### L 100.0100, L500.4050 ####[facility] [address] [place], [address] Nucleated RBC (Bld) [#/Vol] 0 10*3/uL Normal 0-5 [facility] Comment on above: Performed By: #### L 100.0100, L500.4050 ####[facility] [address] [place], [address] Platelet mean volume (Bld) [Entitic vol] 11.4 fL Normal 6.2-12.0 [facility] Comment on above: Performed By: #### L 100.0100, L500.4050 ####[facility] [address] [place], [address] Platelets (Bld) [#/Vol] 339 10*3/uL Normal 150-450 [facility] Comment on above: Performed By: #### L 100.0100, L500.4050 ####[facility] [address] [place], [address] RBC (Bld) [#/Vol] 3.73 10*6/uL Low 4.2-5.4 [facility] Comment on above: Performed By: #### L 100.0100, L500.4050 ####[facility] [address] [place], [address] RDW SD 49.4 fl High 35.1-43.9 [facility] Comment on above: Performed By: #### L 100.0100, L500.4050 ####[facility] [address] [place], [address] WBC (Bld) [#/Vol] 10.5 10*3/uL Normal 4.4-11.0 [facility] Comment on above: Performed By: #### L 100.0100, L500.4050 ####[facility] [address] [facility] [place], [place], [address] Calcium oxalate crystals LM Ql (Urine sed)Ordered By: Darius Ryan on 06-01-2024 Urine Calcium Oxalate Crystals 1+ /hpf [facility] Carbon dioxide, total [Moles /volume] in Central venous bloodOrdered By: Darius Ryan on 06-01-2024 CO2 [Moles/Vol] 29.1 mmol/L 21.0-32.0 [facility] Chest 1 View (Portable)on Chest 1 View (Portable) [facility] Imaging Services [address] [place] [address] Chest 1 View (Portable) MR#: [id number] Acct: [id number] Name: DAVID STREET Rep #: [id number] : 1950 F 73 From: Justin Jackson MD PCP: Dr. Richie Heredia DO Status: [facility] ER Study: Chest 1 View (Portable) Date of Exam: 06/01/24 Exam# [id number] Ordering Dr: Darius Ryan DO EXAM: XR Chest, 1 View CLINICAL INDICATION: WEAKNESS TECHNIQUE: Frontal view of the chest. COMPARISON: No relevant prior studies available. FINDINGS: LUNGS AND PLEURAL SPACES: Unremarkable. No consolidation. No pneumothorax. HEART: Unremarkable. No cardiomegaly. MEDIASTINUM: Unremarkable. Normal mediastinal contour. BONES/JOINTS: Unremarkable. No acute fracture. RAD/Chest 1 View (Portable) IMPRESSION: No acute cardiopulmonary process. Reading [facility] CC: Dr. Darius Ryan DO; Dr. Richie Heredia DO Tax Intern: Signed Normal [facility] Chloride assayOrdered By: Reymundo Ryan on 06-01-2024 Chloride [Moles/Vol] 98 mmol/L 98-108 [facility] Comprehensive Metabolic Prof ilon 06-01-2024 Albumin [Mass/Vol] 3.7 g/dL Normal 3.4-4.8 [facility] Comment on above: Performed By: #### L 100.0100, L500.4050 ####[facility] [address] [place], [address] Albumin/Globulin [Mass ratio] 1.3 {ratio} Normal 0.9-2.4 [facility] Comment on above: Performed By: #### L 100.0100, L500.4050 ####[facility] [address] [place], [address] ALK PHOS 104 U/L Normal 35-104 [facility] Comment on above: Performed By: #### L 100.0100, L500.4050 ####[facility] [address] [place], [address] ALT [Catalytic activity/Vol] 17 U/L Normal <=34 [facility] Comment on above: Performed By: #### L 100.0100, L500.4050 ####[facility] [address] [place], [address] AST [Catalytic activity/Vol] 17 U/L Normal <=31 [facility] Comment on above: Performed By: #### L 100.0100, L500.4050 ####[facility] [address] [place], [address] BUN/CRE 20.4 RATIO High 10-20 [facility] Comment on above: Performed By: #### L 100.0100, L500.4050 ####[facility] [address] [place], [address] Calcium [Mass/Vol] 9.2 mg/dL Normal 7.6-11.0 [facility] Comment on above: Performed By: #### L 100.0100, L500.4050 ####[facility] [address] [place], [address] Chloride [Moles/Vol] 98 mmol/L Normal 98-108 [facility] Comment on above: Performed By: #### L 100.0100, L500.4050 ####[facility] [address] [place], [address] CO2 [Moles/Vol] 29.1 mmol/L Normal 21.0-32.0 [facility] Comment on above: Performed By: #### L 100.0100, L500.4050 ####[facility] [address] [place], [address] Creatinine [Mass/Vol] 1.63 mg/dL High 0.70-1.20 [facility] Comment on above: Performed By: #### L 100.0100, L500.4050 ####[facility] [address] [place], [address] ECRCL 35.55 ml/min Low 50-250 [facility] Comment on above: Performed By: #### L 100.0100, L500.4050 ####[facility] [address] [place], [address] GAP 11 Normal 5-15 [facility] Comment on above: Performed By: #### L 100.0100, L500.4050 ####[facility] [address] [place], [address] GFR/1.73 sq M.predicted among non-blacks MDRD (S/P/Bld) [Vol rate/Area] 33 mL/min/{1.73_m2} Low >60 [facility] Comment on above: Result Comment: mL/m in/1.73m2 CKD-EPI Creatinine Equation (2020) Performed By: #### L 100.0100, L500.4050 ####[facility] [address] [place], [address] Globulin (S) [Mass/Vol] 3.0 g/dL Normal 2.2-4.2 [facility] Comment on above: Performed By: #### L 100.0100, L500.4050 ####[facility] [address] [place], [address] Glucose [Mass/Vol] 211 mg/dL High 70-99 [facility] Comment on above: Performed By: #### L 100.0100, L500.4050 ####[facility] [address] [place], [address] Potassium [Moles/Vol] 3.4 mmol/L Normal 3.3-5.1 [facility] Comment on above: Performed By: #### L 100.0100, L500.4050 ####[facility] [address] [place], [address] Sodium [Moles/Vol] 138 mmol/L Normal 133-145 [facility] Comment on above: Performed By: #### L 100.0100, L500.4050 ####[facility] [address] [place], [address] T BILI < 0.15 Normal 0.00-1.30 [facility] Comment on above: Performed By: #### L 100.0100, L500.4050 ####[facility] [address] [place], [address] T PROT 6.7 g/dL Normal 5.9-8.4 [facility] Comment on above: Performed By: #### L 100.0100, L500.4050 ####[facility] [address] [place], [address] Urea nitrogen [Mass/Vol] 33 mg/dL High 4-19 [facility] Comment on above: Performed By: #### L 100.0100, L500.4050 ####[facility] [address] [place], [address] Emergency Department Summary on 06-01-2024 Emergency Department Summary [facility] Medical Records Department [address] [place] [address] Emergency Department Summary 06/01/24 MR#: [id number] Acct: [id number] Name: DAVID STREET Rep #: [id number] : 1950 73 From: Darius Ryan DO [...] felt weak. She states that her home theater specialist came this morning and she was very [...] whenever she tries to give a specimen. [facility] Medical History Morbid obesity HTN (hypertension) Urinary, [...] orthopnea, palpitation (more content not included)... Normal [facility] Eosinophil percentageOrdered By: Darius Ryan on 06-01-2024 Eosinophils/100 WBC (Bld) 2.8 % 0-5 [facility] Epithelial cells.renal LM.HP F (Urine sed) [#/Area]Ordered By: Darius Ryan on 06-01-2024 Urine Renal Epithelial Cells 0-5 SEEN /hpf 0-5 [facility] Epithelial cells.squamous LM Ql (Urine sed)Ordered By: Darius Ryan on 06-01-2024 Epithelial cells.squamous LM.HPF (Urine sed) [#/Area] 0 /[HPF] 5-10 [facility] Erythrocyte distribution wid th (RBC) [Ratio]Ordered By: Darius Ryan on 06-01-2024 Erythrocyte distribution width (RBC) [Entitic vol] 49.4 fL High 35.1-43.9 [facility] Erythrocyte distribution wid th ratioOrdered By: Darius Ryan on 06-01-2024 Erythrocyte distribution width (RBC) [Ratio] 13.8 % 11.6-14.6 [facility] Estimation of creatinine crissy aranceOrdered By: Darius Ryan on 06-01-2024 Estimated Creatinine Clearance Calc 35.55 ml/min Low 50-250 [facility] GFR/1.73 sq M.predicted olga g non-blacks MDRD (S/P/Bld) [Vol rate/Area]Ordered By: Darius Ryan on 06-01-2024 Estimated GFR (MDRD) Non-Af Amer 33 Low >60 [facility] Comment on above: mL/min/1.73m2 CKD-EP I Creatinine Equation (2020) Glucose Ql (U)Ordered By: Reymundo Ryan on 06-01-2024 Glucose (U) [Mass/Vol] 1000 mg/dL High Normal [facility] Hematocrit Auto (Bld) [Volum e fraction]Ordered By: Darius Ryan on 06-01-2024 Hematocrit (Bld) [Volume fraction] 36.6 % Low 37-47 [facility] Hemoglobin measurementOrdere d By: Darius Ryan on 06-01-2024 Hemoglobin (Bld) [Mass/Vol] 11.8 g/dL Low 12.0-15.0 [facility] Immature granulocytes/100 WB C Auto (Bld)Ordered By: Darius Ryan on 06-01-2024 Immature granulocytes/100 WBC (Bld) 0.500 % 0.0-0.9 [facility] Comment on above: IG% - Immature Granu locytes (promyelocytes, myelocytes and metamyelocytes) > 1% indicates that a LEFT SHIFT is Present. Influenza virus A and B and SARS-CoV-2 (COVID-19) and Respiratory syncytial virus RNAOrdered By: Darius Ryan on 06-01-2024 SARS-CoV-2 (COVID-19) RNA IVAN+probe Ql (Unsp spec) [facility] Ketones Test strip Ql (U)Ord ered By: Darius Ryan on 06-01-2024 Ketones Ql (U) Negative Negative [facility] Laboratory - Chemistry and C hemistry - challengeOrdered By: Darius Ryan on 06-01-2024 AST [Catalytic activity/Vol] 17 U/L <32 [facility] Lymphocytes Auto (Unsp spec) [#/Vol]Ordered By: Darius Ryan on 06-01-2024 Lymphocytes (Bld) [#/Vol] 2.69 10*3/uL 0.83-4.51 [facility] Lymphocytes/100 WBC Auto (Un sp spec)Ordered By: Darius Ryan on 06-01-2024 Lymphocytes/100 WBC (Bld) 25.7 % 19-41 [facility] M100.678on 06-01-2024 M100.678 Normal Reference Range = Negative FLUABV+SARS-CoV-2+RS V Pnl Resp IVAN+probe GeneXpert Instrument, PCR method SARS-CoV-2 (COVID 19) Negative INFLUENZA A Negative INFLUENZA B Negative RSV PCR Negative Normal [facility] Comment on above: Performed By: #### L 501.4020, L500.2500, L100.0100 #### [facility] Laboratory [address] [place], [address] MCV (mean corpuscular volume ) determinationOrdered By: Darius Ryan on 06-01-2024 MCV (RBC) [Entitic vol] 98.1 fL 81-99 [facility] Mean corpuscular hemoglobin (MCH) determinationOrdered By: Darius Ryan on 06-01-2024 MCH (RBC) [Entitic mass] 31.6 pg 27.0-32.0 [facility] Mean corpuscular hemoglobin concentration (MCHC) determinationOrdered By: Darius Ryan on 06-01-2024 MCHC (RBC) [Mass/Vol] 32.2 g/dL 32-36 [facility] Mean platelet volume determi nationOrdered By: Darius Ryan on 06-01-2024 Platelet mean volume (Bld) [Entitic vol] 11.4 fL 6.2-12.0 [facility] Microscopic analysis of urin e for red blood cells (RBC)Ordered By: Darius Ryan on 06-01-2024 Urine RBC 0-5 SEEN /hpf 0-5 [facility] Monocyte percentageOrdered B y: Darius Ryan on 06-01-2024 Monocytes/100 WBC (Bld) 5.7 % 0-10 [facility] Mucus LM Ql (Urine sed)Order ed By: Darius Ryan on 06-01-2024 Mucus Ql (Urine sed) 0 SEEN /hpf [facility] Neutrophil percentageOrdered By: Darius Ryan on 06-01-2024 Neutrophils/100 WBC (Bld) 64.8 % 47-70 [facility] Nitrite Test strip Ql (U)Ord ered By: Darius Ryan on 06-01-2024 Nitrite Ql (U) Positive High Negative [facility] Nucleated red blood cell per centageOrdered By: Darius Ryan on 06-01-2024 Nucleated RBC/100 WBC (Bld) [Ratio] 0 % 0-5 [facility] Platelet countOrdered By: Reymundo Ryan on 06-01-2024 Platelets (Bld) [#/Vol] 339 10*3/uL 150-450 [facility] Potassium (Unsp spec) [Mass/ Vol]Ordered By: Darius Ryan on 06-01-2024 Potassium [Moles/Vol] 3.4 mmol/L 3.3-5.1 [facility] Protein Test strip Ql (U)Ord ered By: Darius Ryan on 06-01-2024 Protein Ql (U) Negative Negative [facility] RBC Auto (Bld) [#/Vol]Ordere d By: Darius Ryan on 06-01-2024 RBC (Bld) [#/Vol] 3.73 10*6/uL Low 4.2-5.4 [facility] Serum creatinine measurement (mass/volume)Ordered By: Darius Ryan on 06-01-2024 Creatinine [Mass/Vol] 1.63 mg/dL High 0.70-1.20 [facility] Serum globulin measurementOr dered By: Darius Ryan on 06-01-2024 Globulin (S) [Mass/Vol] 3.0 g/dL 2.2-4.2 [facility] Serum glucose measurement (m ass/volume)Ordered By: Darius Ryan on 06-01-2024 Glucose [Mass/Vol] 211 mg/dL High 70-99 [facility] Serum or plasma alanine lawson otransferase (ALT) measurementOrdered By: Darius Ryan on 06-01-2024 ALT [Catalytic activity/Vol] 17 U/L <35 [facility] Serum or plasma albumin brittny urement (mass/volume)Ordered By: Darius Ryan on 06-01-2024 Albumin [Mass/Vol] 3.7 g/dL 3.4-4.8 [facility] Serum or plasma albumin/glob ulin mass ratioOrdered By: Darius Ryan on 06-01-2024 Albumin/Globulin [Mass ratio] 1.3 {ratio} 0.9-2.4 [facility] Serum or plasma alkaline ghazala sphatase measurementOrdered By: Darius Ryan on 06-01-2024 ALP [Catalytic activity/Vol] 104 U/L 35-104 [facility] Serum or plasma calcium brittny urement (mass/volume)Ordered By: Darius Ryan on 06-01-2024 Calcium [Mass/Vol] 9.2 mg/dL 7.6-11.0 [facility] Serum or plasma urea nitroge n measurement (mass/volume)Ordered By: Darius Ryan on 06-01-2024 Urea nitrogen [Mass/Vol] 33 mg/dL High 4-19 [facility] Sodium levelOrdered By: Jason Ryan on 06-01-2024 Sodium [Moles/Vol] 138 mmol/L 133-145 [facility] Total proteinOrdered By: Bruce Ryan on 06-01-2024 Protein [Mass/Vol] 6.7 g/dL 5.9-8.4 [facility] Urinalysis, Completeon 06-01 BACTERIA 1+ /hpf Normal None Seen [facility] Comment on above: Order Comment: AUDREY TER SPECIMEN Performed By: #### L 400.0001 ####[facility] [address] [place], [place], [id number] EPI,RENAL 0-5 SEEN Normal 0-5 [facility] Comment on above: Order Comment: AUDREY TER SPECIMEN Performed By: #### L 400.0001 ####[facility] [address] [place], [address] RBC 0-5 SEEN Normal 0-5 [facility] Comment on above: Order Comment: AUDREY TER SPECIMEN Performed By: #### L 400.0001 ####[facility] [address] [place], [address] WBC 0-5 SEEN Normal 0-5 [facility] Comment on above: Order Comment: AUDREY TER SPECIMEN Performed By: #### L 400.0001 ####[facility] [address] [place], [address] CA OX CRYSTAL 1+ /hpf Normal [facility] Comment on above: Order Comment: AUDREY TER SPECIMEN Performed By: #### L 400.0001 ####[facility] [address] [place], [address] EPI,SQUAMOUS 0 SEEN Normal 5-10 [facility] Comment on above: Order Comment: AUDREY TER SPECIMEN Performed By: #### L 400.0001 ####[facility] [address] [place], [address] Mucus Ql (Urine sed) 0 SEEN Normal [facility] Comment on above: Order Comment: AUDREY TER SPECIMEN Performed By: #### L 400.0001 ####[facility] [address] [place], [address] Urine blood detectionOrdered By: Darius Ryan on 06-01-2024 Urine Occult Blood 10 /ul High Negative [facility] Urine clarityOrdered By: Bruce Ryan on 06-01-2024 Clarity (U) Cloudy Clear [facility] Urine color determinationOrd ered By: Darius Ryan on 06-01-2024 Color (U) Straw Yellow [facility] Urine leukocyte esterase det ection by dipstickOrdered By: Darius Ryan on 06-01-2024 Leukocyte esterase Test strip Ql (U) 100 /ul High Negative [facility] Urine pHOrdered By: Darius jennings on 06-01-2024 pH (U) 5.0 [pH] 5.0 - 8.0 [facility] Urine sediment bacteria coun t by microscopy (number/high power field)Ordered By: Darius Ryan on 06-01-2024 Bacteria LM.HPF (Urine sed) [#/Area] 1 /[HPF] None Seen [facility] Urine specific gravity measu rementOrdered By: Darius Ryan on 06-01-2024 Specific gravity (U) [Rel density] 1.010 1.002-1.030 [facility] Urobilinogen Ql (U)Ordered B y: Darius Ryan on 06-01-2024 Urine Urobilinogen Normal mg/dl Normal [facility] White blood cell (WBC) count Ordered By: Darius Ryan on 06-01-2024 WBC (Bld) [#/Vol] 10.5 10*3/uL 4.4-11.0 [facility] White blood cell countOrdere d By: Darius Ryan on 06-01-2024 Urine WBC 0-5 SEEN /hpf 0-5 [facility] MALBRon 05-05-2024 U Ratio Alb/Cre 61 mg/G High 0-30 [facility] Comment on above: Performed By: #### U AMICAO, UA #### [place] [address] .Urinalysis Microscopic (AO) on 04-20-2024 UA Bacteria 3+ /hpf Abnormal [facility] Comment on above: Performed By: #### U AMICAO, UA #### [place] [address] UA RBC 0-5 Abnormal None Seen [facility] Comment on above: Performed By: #### U AMICAO, UA #### [address] [address] UA Squam Epithelial 5-10 Abnormal None Seen [facility] Comment on above: Performed By: #### U AMICAO, UA #### [place] [address] UA WBC LOADED Abnormal None Seen [facility] Comment on above: Performed By: #### U AMICAO, UA #### [place] [id number] LABORATORYOrdered By: Kristie Hollis on 04-20-2024 Appearance [...] Probable Contamination. Suggest recollection if clinically indicated. [facility] Work Phone: UAon 04-20-2024 Color (U) Yellow Normal [facility] Comment on above: Performed By: #### U TEEO, UA #### [address] [address] Glucose (U) [Mass/Vol] mg/dL Abnormal Negative [facility] Comment on above: Performed By: #### U AMICAO, UA #### [address] [address] Ketones Ql (U) Negative Normal Negative [facility] Comment on above: Performed By: #### U AMICAO, UA #### [place] [address] UA Appear Cloudy Abnormal Clear [facility] Comment on above: Performed By: #### U AMICAO, UA #### [place] [address] UA Blood Trace Abnormal Negative [facility] Comment on above: Performed By: #### U AMICAO, UA #### [place] [address] UA Leuk Est Small Abnormal Negative [facility] Comment on above: Performed By: #### U AMICAO, UA #### [place] [address] UA Nitrite Positive Abnormal Negative [facility] Comment on above: Performed By: #### U AMICAO, UA #### [place] [address] UA pH 6.5 Normal 5.0 - 8.0 [facility] Comment on above: Performed By: #### U AMICAO, UA #### [address] [address] UA Protein Negative Normal Negative [facility] Comment on above: Performed By: #### U AMICAO, UA #### [place] [address] UA Spec Grav 1.015 Normal 1.015-1.025 [facility] Comment on above: Performed By: #### U AMICAO, UA #### [place] [address] UA Specimen Type Clean Catch Normal [facility] Comment on above: Performed By: #### U AMICAO, UA #### [place] [address] UA Urobilinogen 0.2 E.U./dL Normal 0.2-1.0 [facility] Comment on above: Performed By: #### U AMICAO, UA #### [place] [address] Urobilinogen (U) [Mass/Vol] Negative Normal Negative [facility] Comment on above: Performed By: #### U AMICAO, UA #### [place] [address] MALBRon 03-31-2024 U Creatinine 71.3 mg/dL Normal [facility] Comment on above: Performed By: #### U AMICAO, UA #### [place] [address] U Microalb 43.7 mg/L Normal [facility] Comment on above: Performed By: #### U AMICAO, UA #### [place] [address] .Urinalysis Microscopic (AO) on 03-27-2024 UA Bacteria 1+ /hpf Abnormal [facility] Comment on above: Performed By: #### U AMICAO, UA #### [place] [address] UA RBC LOADED Abnormal None Seen [facility] Comment on above: Performed By: #### U AMICAO, UA #### [address] [address] UA Squam Epithelial None Seen Normal None Seen [facility] Comment on above: Performed By: #### U AMICAO, UA #### [place] [address] UA WBC 5-10 Abnormal None Seen [facility] Comment on above: Performed By: #### U AMICAO, UA #### [id number] [place], [place] [address] LABORATORYOrdered By: Pancho Luna on 03-27-2024 Appearance [...] SS UAon 03-27-2024 Color (U) Brown Abnormal [facility] Comment on above: Performed By: #### U PARVEZ UA #### [place] [place], [place] [address] Glucose (U) [Mass/Vol] mg/dL Abnormal Negative [facility] Comment on above: Performed By: #### U AMICAO, UA #### [place] [address] Ketones Ql (U) Negative Normal Negative [facility] Comment on above: Performed By: #### U AMICAO, UA #### [place] [address] UA Appear Cloudy Abnormal Clear [facility] Comment on above: Performed By: #### U AMICAO, UA #### [address] [address] UA Blood Large Abnormal Negative [facility] Comment on above: Performed By: #### U AMICAO, UA #### [place] [address] UA Leuk Est Trace Abnormal Negative [facility] Comment on above: Performed By: #### U AMICAO, UA #### [place] [address] UA Nitrite Positive Abnormal Negative [facility] Comment on above: Performed By: #### U AMICAO, UA #### [place] [address] UA pH 5.5 Normal 5.0 - 8.0 [facility] Comment on above: Performed By: #### U AMICAO, UA #### [place] [address] UA Protein >=300 Abnormal Negative [facility] Comment on above: Performed By: #### U AMICAO, UA #### [place] [address] UA Spec Grav 1.015 Normal 1.015-1.025 [facility] Comment on above: Performed By: #### U AMICAO, UA #### [place] [address] UA Specimen Type Void Normal [facility] Comment on above: Performed By: #### U AMICAO, UA #### [facility] [address] [place], [place] [address] UA Urobilinogen 1.0 E.U./dL Normal 0.2-1.0 [facility] Comment on above: Performed By: #### U AMICAO, UA #### [facility] [address] [place], [place] [address] Urobilinogen (U) [Mass/Vol] Negative Normal Negative [facility] Comment on above: Performed By: #### U AMICAO, UA #### [facility] [address] [place], [place] [address] L501.4020on 03-10-2024 TROPONIN-I HS 17 pg/mL Normal 3.0-54.0 [facility] Comment on above: Order Comment: 'TROP ' Serial specimen #1, #2 or #3: 2 Result Comment: Pledena feng Note: New Test Units and Gender Specific Reference Ranges. For more information see Policy Stat Procedure [place] High Sensitivity Troponin (TNIH) and attachments. Performed By: #### L 501.4020 ####[facility] [id number] [place], [address] Troponin IOrdered By: Hunter cao on 03-10-2024 Troponin I High Sensitivity 17 pg/mL 3.0-54.0 [facility] Comment on above: Please Note: New Alanis t Units and Gender Specific Reference Ranges. For more information see Policy Stat Procedure [place] High Sensitivity Troponin (TNIH) and attachments. Absolute neutrophil countOrd ered By: Hunter Ryan on 03-09-2024 Neutrophils (Bld) [#/Vol] 8.8 10*3/uL High 2.0-7.7 [facility] BNP (brain natriuretic pepti de measurement)Ordered By: Hunter Ryan on 03-09-2024 Natriuretic peptide B (Bld) [Mass/Vol] 49.2 pg/mL 0-100 [facility] BNP,B-Type NATRIURETIC PEPTI Rory 03-09-2024 Natriuretic peptide B (Bld) [Mass/Vol] 49.2 pg/mL Normal 0-100 [facility] Comment on above: Performed By: #### L 501.080 #### [facility] [address] [place], [address] Basic Metabolic Profile (BMP )on 03-09-2024 BUN/CRE 13.7 RATIO Normal 10-20 [facility] Comment on above: Order Comment: 'TROP ' Serial specimen #1, #2 or #3: 1 Performed By: #### L 501.080 #### [facility] [address] [place], [address] CA,Total 9.9 mg/dL Normal 8.5-10.1 [facility] Comment on above: Order Comment: 'TROP ' Serial specimen #1, #2 or #3: 1 Performed By: #### L 501.080 #### [facility] [address] [place], [address] Chloride [Moles/Vol] 102 mmol/L Normal 98-107 [facility] Comment on above: Order Comment: 'TROP ' Serial specimen #1, #2 or #3: 1 Performed By: #### L 501.080 #### [facility] [address] [place], [address] CO2 [Moles/Vol] 28.0 mmol/L Normal 21.0-32.0 [facility] Comment on above: Order Comment: 'TROP ' Serial specimen #1, #2 or #3: 1 Performed By: #### L 501.080 #### [facility] [address] [place], [address] Creatinine [Mass/Vol] 1.46 mg/dL High 0.55-1.02 [facility] Comment on above: Order Comment: 'TROP ' Serial specimen #1, #2 or #3: 1 Result Comment: The validity of the calculated GFR GFRAA in patients over 70 years has not been determined. Clinical correlation is essential. Performed By: #### L 501.080 #### [facility] [address] [place], [address] ECRCL 37.51 ml/min Normal [facility] Comment on above: Order Comment: 'TROP ' Serial specimen #1, #2 or #3: 1 Performed By: #### L 501.080 #### [facility] [address] [place], [address] EST GFR - AA 45 mL/min Low >60 [facility] Comment on above: Order Comment: 'TROP ' Serial specimen #1, #2 or #3: 1 Result Comment: Afri can [place]ian GFR Calc Performed By: #### L 501.080 #### [facility] [address] [place], [address] GAP 7 Normal 5-15 [facility] Comment on above: Order Comment: 'TROP ' Serial specimen #1, #2 or #3: 1 Performed By: #### L 501.080 #### [facility] [address] [place], [address] GFR/1.73 sq M.predicted among non-blacks MDRD (S/P/Bld) [Vol rate/Area] 37 mL/min/{1.73_m2} Low >60 [facility] Comment on above: Order Comment: 'TROP ' Serial specimen #1, #2 or #3: 1 Result Comment: Non- GFR Calc Performed By: #### L 501.080 #### [facility] [address] [place], [address] Glucose [Mass/Vol] 171 mg/dL High 74-106 [facility] Comment on above: Order Comment: 'TROP ' Serial specimen #1, #2 or #3: 1 Result Comment: Fast ing Glucose result greater than or equal to 126 mg/dL suggests DIABETES MELLITUS per A.D.A. criteria. Performed By: #### L 501.080 #### [facility] [address] [place], [address] Potassium [Moles/Vol] 3.8 mmol/L Normal 3.5-5.1 [facility] Comment on above: Order Comment: 'TROP ' Serial specimen #1, #2 or #3: 1 Result Comment: Mode rate Hemolysis, Result may be falsely increased. Performed By: #### L 501.080 #### [facility] [address] [place], [address] Sodium [Moles/Vol] 137 mmol/L Normal 136-145 [facility] Comment on above: Order Comment: 'TROP ' Serial specimen #1, #2 or #3: 1 Performed By: #### L 501.080 #### [facility] [address] [place], [address] Urea nitrogen [Mass/Vol] 20 mg/dL High 7-18 [facility] Comment on above: Order Comment: 'TROP ' Serial specimen #1, #2 or #3: 1 Performed By: #### L 501.080 #### [facility] [address] [place], [address] Basophil percentageOrdered B y: Hunter Ryan on 03-09-2024 Basophils/100 WBC (Bld) 0.8 % 0-1 [facility] Blood urea nitrogen (BUN)/cr eatinine ratioOrdered By: Hunter Ryan on 03-09-2024 Urea nitrogen/Creatinine [Mass ratio] 13.7 mg/mg 10-20 [facility] CBC W/Diff, Automatedon 02-22 Absolute Lymph 3.14 X10 3/uL Normal 0.83-4.51 [facility] Comment on above: Performed By: #### L 501.080 #### [facility] [address] [place], [address] Absolute Neut 8.8 X10 3/uL High 2.0-7.7 [facility] Comment on above: Performed By: #### L 501.080 #### [facility] [address] [place], [address] Basophils/100 WBC (Bld) 0.8 % Normal 0-1 [facility] Comment on above: Performed By: #### L 501.080 #### [facility] [address] [place], [address] Eosinophils/100 WBC (Bld) 0.8 % Normal 0-5 [facility] Comment on above: Performed By: #### L 501.080 #### [facility] [address] [place], [address] Erythrocyte distribution width (RBC) [Ratio] 14.0 % Normal 11.6-14.6 [facility] Comment on above: Performed By: #### L 501.080 #### [facility] [address] [place], [address] Hematocrit (Bld) [Volume fraction] 44.8 % Normal 37-47 [facility] Comment on above: Performed By: #### L 501.080 #### [facility] [address] [place], [address] Hemoglobin (Bld) [Mass/Vol] 14.9 g/dL Normal 12.0-15.0 [facility] Comment on above: Performed By: #### L 501.080 #### [facility] [address] [place], [address] IG% 0.800 Normal 0.0-0.9 [facility] Comment on above: Result Comment: IG% - Immature Granulocytes (promyelocytes, myelocytes and metamyelocytes) > 1% indicates that a LEFT SHIFT is Present. Performed By: #### L 501.080 #### [facility] [address] [place], [address] Lymphocytes/100 WBC (Bld) 23.9 % Normal 19-41 [facility] Comment on above: Performed By: #### L 501.080 #### [facility] [address] [place], [address] MCH (RBC) [Entitic mass] 32.0 pg Normal 27.0-32.0 [facility] Comment on above: Performed By: #### L 501.080 #### [facility] [address] [place], [address] MCHC (RBC) [Mass/Vol] 33.3 g/dL Normal 32-36 [facility] Comment on above: Performed By: #### L 501.080 #### [facility] [address] [place], [address] MCV (RBC) [Entitic vol] 96.3 fL Normal 81-99 [facility] Comment on above: Performed By: #### L 501.080 #### [facility] [address] [place], [address] Monocytes/100 WBC (Bld) 6.5 % Normal 0-10 [facility] Comment on above: Performed By: #### L 501.080 #### [facility] [address] [place], [address] Neutrophils/100 WBC (Bld) 67.2 % Normal 47-70 [facility] Comment on above: Performed By: #### L 501.080 #### [facility] [address] [place], [address] Nucleated RBC (Bld) [#/Vol] 0 10*3/uL Normal 0-5 [facility] Comment on above: Performed By: #### L 501.080 #### [facility] [address] [place], [address] Platelet mean volume (Bld) [Entitic vol] 11.7 fL Normal 6.2-12.0 [facility] Comment on above: Performed By: #### L 501.080 #### [facility] [address] [place], [address] Platelets (Bld) [#/Vol] 332 10*3/uL Normal 150-450 [facility] Comment on above: Performed By: #### L 501.080 #### [facility] [address] [place], [address] RBC (Bld) [#/Vol] 4.65 10*6/uL Normal 4.2-5.4 [facility] Comment on above: Performed By: #### L 501.080 #### [facility] [address] [place], [address] RDW SD 49.6 fl High 35.1-43.9 [facility] Comment on above: Performed By: #### L 501.080 #### [facility] [address] [place], [address] WBC (Bld) [#/Vol] 13.1 10*3/uL High 4.4-11.0 [facility] Comment on above: Performed By: #### L 501.080 #### [facility] [address] [place], [address] Carbon dioxide measurementOr dered By: Hunter Ryan on 03-09-2024 CO2 [Moles/Vol] 28.0 mmol/L 21.0-32.0 [facility] Chest 1 View (Portable)on Chest 1 View (Portable) [facility] Imaging Services [address] [place] [address] Chest 1 View (Portable) MR#: [id number] Acct: [id number] Name: DAVID STREET Rep #: [id number] : 1950 F 73 From: Perez Khoury MD PCP: Dr. Richie Heredia, DO Status: [facility] ER Study: Chest 1 View (Portable) Date of Exam: 03/09/24 Exam# [id number] Ordering Dr: Hunter Ryan MD [id number] EXAM: XR CHEST, 1 VIEW CLINICAL INDICATION: [...] Hunter Ryan MD; Dr. Richie Heredia DO Tax Intern: Signed Normal [facility] Chloride measurementOrdered By: Hunter Ryan on 03-09-2024 Chloride [Moles/Vol] 102 mmol/L 98-107 [facility] Emergency Department Summary on 03-09-2024 Emergency Department Summary [facility] Medical Records Department [address] [place] [address] Emergency Department Summary 03/09/24 MR#: [id number] Acct: [id number] Name: DAVID STREET Rep #: [id number] : 1950 73 From: Hunter Ryan MD [...] BID PRN rash 03/09/24 Unknown History powder ([facility]) oxycodone-acetaminop hen 5 mg-325 1 tab PO [...] Positive n (more content not included)... Normal [facility] Eosinophil percentageOrdered By: Hunter Ryan on 03-09-2024 Eosinophils/100 WBC (Bld) 0.8 % 0-5 [facility] Erythrocyte distribution wid th (RBC) [Ratio]Ordered By: Hunter Ryan on 03-09-2024 Erythrocyte distribution width (RBC) [Entitic vol] 49.6 fL High 35.1-43.9 [facility] Erythrocyte distribution wid th ratioOrdered By: Hunter Ryan on 03-09-2024 Erythrocyte distribution width (RBC) [Ratio] 14.0 % 11.6-14.6 [facility] Estimated glomerular filtrat ion rate (GFR) AmericanOrdered By: Hunter Ryan on 03-09-2024 Estimated GFR (MDRD) Amer 45 mL/min Low >60 [facility] Comment on above: GFR Calc Estimation of creatinine crissy aranceOrdered By: Hunter Ryan on 03-09-2024 Estimated Creatinine Clearance Calc 37.51 ml/min [facility] Glomerular filtration rate ( GFR) estimationOrdered By: Hunter Ryan on 03-09-2024 Estimated GFR (MDRD) Non-Af Amer 37 mL/min Low >60 [facility] Comment on above: Non- GFR Calc Glucose measurementOrdered B y: Hunter Ryan on 03-09-2024 Glucose [Mass/Vol] 171 mg/dL High 74-106 [facility] Comment on above: Fasting Glucose resu lt greater than or equal to 126 mg/dL suggests DIABETES MELLITUS per A.D.A. criteria. Hematocrit Auto (Bld) [Volum e fraction]Ordered By: Hunter Ryan on 03-09-2024 Hematocrit (Bld) [Volume fraction] 44.8 % 37-47 [facility] Hemoglobin measurementOrdere d By: Hunter Ryan on 03-09-2024 Hemoglobin (Bld) [Mass/Vol] 14.9 g/dL 12.0-15.0 [facility] Immature granulocytes/100 WB C Auto (Bld)Ordered By: Hunter Ryan on 03-09-2024 Immature granulocytes/100 WBC (Bld) 0.800 % 0.0-0.9 [facility] Comment on above: IG% - Immature Granu locytes (promyelocytes, myelocytes and metamyelocytes) > 1% indicates that a LEFT SHIFT is Present. Influenza virus A and B and SARS-CoV-2 (COVID-19) and Respiratory syncytial virus RNAOrdered By: Hunter Ryan on 03-09-2024 SARS-CoV-2 (COVID-19) RNA IVAN+probe Ql (Unsp spec) [facility] L501.4020on 03-09-2024 TROPONIN-I HS 16 pg/mL Normal 3.0-54.0 [facility] Comment on above: Order Comment: 'TROP ' Serial specimen #1, #2 or #3: 1 Result Comment: Plea se Note: New Test Units and Gender Specific Reference Ranges. For more information see Policy Stat Procedure [place] High Sensitivity Troponin (TNIH) and attachments. Performed By: #### L 501.080 #### [facility] [address] [place], [address] Lymphocytes Auto (Unsp spec) [#/Vol]Ordered By: Hunter Ryan on 03-09-2024 Lymphocytes (Bld) [#/Vol] 3.14 10*3/uL 0.83-4.51 [facility] Lymphocytes/100 WBC Auto (Un sp spec)Ordered By: Hunter Ryan on 03-09-2024 Lymphocytes/100 WBC (Bld) 23.9 % 19-41 [facility] M100.678on 03-09-2024 M100.678 Pending SARS-CoV-2 (COVID 19) Negative INFLUENZA A Negative INFLUENZA B Negative RSV PCR Negative Normal [facility] Comment on above: Performed By: #### L 501.4020, L500.2500, L100.0100 #### [facility] [address] [facility] [place], [address] MCV (mean corpuscular volume ) determinationOrdered By: Hunter Ryan on 03-09-2024 MCV (RBC) [Entitic vol] 96.3 fL 81-99 [facility] Mean corpuscular hemoglobin (MCH) determinationOrdered By: Hunter Ryan on 03-09-2024 MCH (RBC) [Entitic mass] 32.0 pg 27.0-32.0 [facility] Mean corpuscular hemoglobin concentration (MCHC) determinationOrdered By: Hunter Ryan on 03-09-2024 MCHC (RBC) [Mass/Vol] 33.3 g/dL 32-36 [facility] Mean platelet volume determi nationOrdered By: Hunter Ryan on 03-09-2024 Platelet mean volume (Bld) [Entitic vol] 11.7 fL 6.2-12.0 [facility] Monocyte percentageOrdered B y: Hunter Ryan on 03-09-2024 Monocytes/100 WBC (Bld) 6.5 % 0-10 [facility] Neutrophil percentageOrdered By: Hunter Ryan on 03-09-2024 Neutrophils/100 WBC (Bld) 67.2 % 47-70 [facility] Nucleated red blood cell per centageOrdered By: Hunter Ryan on 03-09-2024 Nucleated RBC/100 WBC (Bld) [Ratio] 0 % 0-5 [facility] Platelet countOrdered By: Reynold Ryan on 03-09-2024 Platelets (Bld) [#/Vol] 332 10*3/uL 150-450 [facility] Potassium measurementOrdered By: Hunter Ryan on 03-09-2024 Potassium [Moles/Vol] 3.8 mmol/L 3.5-5.1 [facility] Comment on above: Moderate Hemolysis, Result may be falsely increased. RBC Auto (Bld) [#/Vol]Ordere d By: Hunter Ryan on 03-09-2024 RBC (Bld) [#/Vol] 4.65 10*6/uL 4.2-5.4 [facility] Serum anion gap measurementO rdered By: Hunter Ryan on 03-09-2024 Anion gap [Moles/Vol] 7 mmol/L 5-15 [facility] Serum or plasma calcium brittny urement (mass/volume)Ordered By: Hunter Ryan on 03-09-2024 Calcium [Mass/Vol] 9.9 mg/dL 8.5-10.1 [facility] Serum or plasma creatinine m easurement (mass/volume)Ordered By: Hunter Ryan on 03-09-2024 Creatinine [Mass/Vol] 1.46 mg/dL High 0.55-1.02 [facility] Comment on above: The validity of the calculated GFR & GFRAA in patients over 70 years has not been determined. Clinical correlation is essential. Serum or plasma urea nitroge n measurement (mass/volume)Ordered By: Hunter Ryan on 03-09-2024 Urea nitrogen [Mass/Vol] 20 mg/dL High 7-18 [facility] Sodium levelOrdered By: Hunter Ryan on 03-09-2024 Sodium [Moles/Vol] 137 mmol/L 136-145 [facility] White blood cell (WBC) count Ordered By: Hunter Ryan on 03-09-2024 WBC (Bld) [#/Vol] 13.1 10*3/uL High 4.4-11.0 [facility] 12 Lead EKGon 02-21-2024 12 Lead EKG [facility] [address] [place] [address] 12 Lead EKG 02/21/242120 MR#: [id number] Acct: [id number] Name: DAVID STRE[address] Rep #: [id number] : 1950 73 From: Alberto Williamson MD [...] Abnormal ECG Confirmed by ALBERTO WILLIAMSON MD ([id number]), purchasing expeditor JASVIR NESBITT ([id number]) on 02/22/2024 8:03:35 AM Referred By: Confirmed By: ALBERTO WILLIAMSON MD 02/22/24 0803 Date Alberto Williamson MD CC: Dr. Juliocesar Hyatt, DO; Dr. Richie Heredia DO Signed Normal [facility] Absolute neutrophil countOrd ered By: Juliocesar Hyatt on 02-21-2024 Neutrophils (Bld) [#/Vol] 8.1 10*3/uL High 2.0-7.7 [facility] Base excess Calc (BldV) [Mol es/Vol]Ordered By: Juliocesar Hyatt on 02-21-2024 Venous Blood Base Excess 1 mmol/L -1.0-3.5 [facility] Basic Metabolic Profile (BMP )on 02-21-2024 BUN/CRE 13.2 RATIO Normal 10-20 [facility] Comment on above: Order Comment: 'TROP ' Serial specimen #1, #2 or #3: 1 Performed By: #### L 501.4020, L500.2500, L100.0100 #### [facility] [address] [place], [address] CA,Total 9.7 mg/dL Normal 8.5-10.1 [facility] Comment on above: Order Comment: 'TROP ' Serial specimen #1, #2 or #3: 1 Performed By: #### L 501.4020, L500.2500, L100.0100 #### [facility] [address] [place], [address] Chloride [Moles/Vol] 100 mmol/L Normal 98-107 [facility] Comment on above: Order Comment: 'TROP ' Serial specimen #1, #2 or #3: 1 Performed By: #### L 501.4020, L500.2500, L100.0100 #### [facility] [address] [place], [address] CO2 [Moles/Vol] 30.0 mmol/L Normal 21.0-32.0 [facility] [facility] Comment on above: Order Comment: 'TROP ' Serial specimen #1, #2 or #3: 1 Performed By: #### L 501.4020, L500.2500, L100.0100 #### [facility] [address] [place], [address] Creatinine [Mass/Vol] 1.36 mg/dL High 0.55-1.02 [facility] Comment on above: Order Comment: 'TROP ' Serial specimen #1, #2 or #3: 1 Result Comment: The validity of the calculated GFR GFRAA in patients over 70 years has not been determined. Clinical correlation is essential. Performed By: #### L 501.4020, L500.2500, L100.0100 #### [facility] [address] [place], [address] EST GFR - AA 49 mL/min Low >60 [facility] Comment on above: Order Comment: 'TROP ' Serial specimen #1, #2 or #3: 1 Result Comment: Afri can Bur[place] GFR Calc Performed By: #### L 501.4020, L500.2500, L100.0100 #### [facility] [address] [place], [address] GAP 8 Normal 5-15 [facility] Comment on above: Order Comment: 'TROP ' Serial specimen #1, #2 or #3: 1 Performed By: #### L 501.4020, L500.2500, L100.0100 #### [facility] [address] [place], [address] GFR/1.73 sq M.predicted among non-blacks MDRD (S/P/Bld) [Vol rate/Area] 41 mL/min/{1.73_m2} Low >60 [facility] Comment on above: Order Comment: 'TROP ' Serial specimen #1, #2 or #3: 1 Result Comment: Non- GFR Calc Performed By: #### L 501.4020, L500.2500, L100.0100 #### [facility] [address] [place], [address] Glucose [Mass/Vol] 148 mg/dL High 74-106 [facility] Comment on above: Order Comment: 'TROP ' Serial specimen #1, #2 or #3: 1 Result Comment: Fast ing Glucose result greater than or equal to 126 mg/dL suggests DIABETES MELLITUS per A.D.A. criteria. Performed By: #### L 501.4020, L500.2500, L100.0100 #### [facility] [address] [place], [address] Potassium [Moles/Vol] 3.8 mmol/L Normal 3.5-5.1 [facility] Comment on above: Order Comment: 'TROP ' Serial specimen #1, #2 or #3: 1 Performed By: #### L 501.4020, L500.2500, L100.0100 #### [facility] [address] [place], [address] Sodium [Moles/Vol] 138 mmol/L Normal 136-145 [facility] Comment on above: Order Comment: 'TROP ' Serial specimen #1, #2 or #3: 1 Performed By: #### L 501.4020, L500.2500, L100.0100 #### [facility] [address] [place], [address] Urea nitrogen [Mass/Vol] 18 mg/dL Normal 7-18 [facility] Comment on above: Order Comment: 'TROP ' Serial specimen #1, #2 or #3: 1 Performed By: #### L 501.4020, L500.2500, L100.0100 #### [facility] [address] [place], [address] Basophil percentageOrdered B y: Juliocesar Hyatt on 02-21-2024 Basophils/100 WBC (Bld) 0.5 % 0-1 [facility] Blood urea nitrogen (BUN)/cr eatinine ratioOrdered By: Juliocesar Hyatt on 02-21-2024 Urea nitrogen/Creatinine [Mass ratio] 13.2 mg/mg 10-20 [facility] CBC W/Diff, Automatedon 12-3 0-2024 Absolute Lymph 2.58 X10 3/uL Normal 0.83-4.51 [facility] Comment on above: Performed By: #### L 501.4020, L500.2500, L100.0100 #### [facility] [address] [place], [address] Absolute Neut 8.1 X10 3/uL High 2.0-7.7 [facility] Comment on above: Performed By: #### L 501.4020, L500.2500, L100.0100 #### [facility] [address] [place], [address] Basophils/100 WBC (Bld) 0.5 % Normal 0-1 [facility] Comment on above: Performed By: #### L 501.4020, L500.2500, L100.0100 #### [facility] [address] [place], [address] Eosinophils/100 WBC (Bld) 1.2 % Normal 0-5 [facility] Comment on above: Performed By: #### L 501.4020, L500.2500, L100.0100 #### [facility] [address] [place], [address] Erythrocyte distribution width (RBC) [Ratio] 14.3 % Normal 11.6-14.6 [facility] Comment on above: Performed By: #### L 501.4020, L500.2500, L100.0100 #### [facility] [address] [place], [address] Hematocrit (Bld) [Volume fraction] 39.3 % Normal 37-47 [facility] Comment on above: Performed By: #### L 501.4020, L500.2500, L100.0100 #### [facility] [address] [place], [address] Hemoglobin (Bld) [Mass/Vol] 13.0 g/dL Normal 12.0-15.0 [facility] Comment on above: Performed By: #### L 501.4020, L500.2500, L100.0100 #### [facility] [address] [place], [address] IG% 0.700 Normal 0.0-0.9 [facility] Comment on above: Result Comment: IG% - Immature Granulocytes (promyelocytes, myelocytes and metamyelocytes) > 1% indicates that a LEFT SHIFT is Present. Performed By: #### L 501.4020, L500.2500, L100.0100 #### [facility] [address] [place], [address] Lymphocytes/100 WBC (Bld) 22.2 % Normal 19-41 [facility] Comment on above: Performed By: #### L 501.4020, L500.2500, L100.0100 #### [facility] [address] [place], [address] MCH (RBC) [Entitic mass] 32.2 pg High 27.0-32.0 [facility] Comment on above: Performed By: #### L 501.4020, L500.2500, L100.0100 #### [facility] [address] [place], [address] MCHC (RBC) [Mass/Vol] 33.1 g/dL Normal 32-36 [facility] Comment on above: Performed By: #### L 501.4020, L500.2500, L100.0100 #### [facility] [address] [place], [address] MCV (RBC) [Entitic vol] 97.3 fL Normal 81-99 [facility] Comment on above: Performed By: #### L 501.4020, L500.2500, L100.0100 #### [facility] [address] [place], [address] Monocytes/100 WBC (Bld) 5.5 % Normal 0-10 [facility] Comment on above: Performed By: #### L 501.4020, L500.2500, L100.0100 #### [facility] [address] [place], [address] Neutrophils/100 WBC (Bld) 69.9 % Normal 47-70 [facility] Comment on above: Performed By: #### L 501.4020, L500.2500, L100.0100 #### [facility] [address] [place], [address] Nucleated RBC (Bld) [#/Vol] 0 10*3/uL Normal 0-5 [facility] Comment on above: Performed By: #### L 501.4020, L500.2500, L100.0100 #### [facility] [address] [place], [address] Platelet mean volume (Bld) [Entitic vol] 10.8 fL Normal 6.2-12.0 [facility] Comment on above: Performed By: #### L 501.4020, L500.2500, L100.0100 #### [facility] [address] [place], [address] Platelets (Bld) [#/Vol] 375 10*3/uL Normal 150-450 [facility] Comment on above: Performed By: #### L 501.4020, L500.2500, L100.0100 #### [facility] [address] [place], [address] RBC (Bld) [#/Vol] 4.04 10*6/uL Low 4.2-5.4 [facility] Comment on above: Performed By: #### L 501.4020, L500.2500, L100.0100 #### [facility] [address] [place], [address] RDW SD 51.4 fl High 35.1-43.9 [facility] Comment on above: Performed By: #### L 501.4020, L500.2500, L100.0100 #### [facility] [address] [place], [address] WBC (Bld) [#/Vol] 11.6 10*3/uL High 4.4-11.0 [facility] Comment on above: Performed By: #### L 501.4020, L500.2500, L100.0100 #### [facility] [address] [place], [address] CO2 (BldV) [Moles/Vol]Ordere d By: Juliocesar Hyatt on 02-21-2024 CO2 [Moles/Vol] 25 mmol/L 23-33 [facility] CO2 (BldV) [Partial pressure ]Ordered By: Juliocesar Hyatt on 02-21-2024 Bed Mix Venous Bld PCO2 at Pat Temp 29.7 mmHg Low 41-51 [facility] Carbon dioxide measurementOr dered By: Juliocesar Hyatt on 02-21-2024 CO2 [Moles/Vol] 30.0 mmol/L 21.0-32.0 [facility] Chest PA and Lateralon 02-20 Chest PA and Lateral [facility] [address] [place] [address] Chest PA and Lateral MR#: [id number] Acct: [id number] Name: DAVID STREET Ramesh Rep #: [id number] : 1950 F 73 From: Mikey Vanegas MD PCP: Dr. Richie Heredia, DO Status: [facility] ER Study: Chest PA and Lateral Date of Exam: 02/21/24 Exam# [id number] Ordering Dr: Juliocesar Hyatt DO [id number] EXAM: XR CHEST, 2 VIEWS CLINICAL INDICATION: [...] Juliocesar Hyatt DO; Dr. Richie Heredia DO Tax Intern: Signed Normal [facility] Chloride measurementOrdered By: Juliocesar Hyatt on 02-21-2024 Chloride [Moles/Vol] 100 mmol/L 98-107 [facility] Emergency Department Summary on 02-21-2024 Emergency Department Summary [facility] Medical Records Department [address] [place] [address] Emergency Department Summary 02/21/24 MR#: [id number] Acct: [id number] Name: DAVID STREET Rep #: [id number] : 1950 73 From: Juliocesar Hyatt DO [...] intact Psych: Cooperative, appropriate mood and affect [facility] Medical History Hypercholesteremia Peripheral vascular disease Palpitations Vertigo Osteoarthritis Diabetes mellitus type 2 in obese Paroxysmal atrial fibrillation Obstructive sleep apnea Home Medications ???Medication ???Instructions ???Recorded ???Last Taken ???Type aspirin 81 mg tablet,delayed 81 mg PO DAILY [employer] 10/25/20 01/26/23 Rx release tabs albuterol [...] BID #0 grams 08/31/23 Unknown Rx powder ([facility]) prednisone 20 mg tablet 60 mg (3 [...] 115 Pul (more content not included)... Normal [facility] Eosinophil percentageOrdered By: Juliocesar Hyatt on 02-21-2024 Eosinophils/100 WBC (Bld) 1.2 % 0-5 [facility] Erythrocyte distribution wid th (RBC) [Ratio]Ordered By: Juliocesar Hyatt on 02-21-2024 Erythrocyte distribution width (RBC) [Entitic vol] 51.4 fL High 35.1-43.9 [facility] Erythrocyte distribution wid th ratioOrdered By: Lindsborg Olena on 02-21-2024 Erythrocyte distribution width (RBC) [Ratio] 14.3 % 11.6-14.6 [facility] Estimated glomerular filtrat ion rate (GFR) AmericanOrdered By: Lindsborg Olena on 02-21-2024 Estimated GFR (MDRD) Amer 49 mL/min Low >60 [facility] Comment on above: GFR Calc Glomerular filtration rate ( GFR) estimationOrdered By: Juliocesarmargarette Hyatt on 02-21-2024 Estimated GFR (MDRD) Non-Af Amer 41 mL/min Low >60 [facility] Comment on above: Non- GFR Calc Glucose measurementOrdered B y: Juliocesarmargarette TorresUsama on 02-21-2024 Glucose [Mass/Vol] 148 mg/dL High 74-106 [facility] Comment on above: Fasting Glucose resu lt greater than or equal to 126 mg/dL suggests DIABETES MELLITUS per A.D.A. criteria. Hematocrit Auto (Bld) [Volum e fraction]Ordered By: Juliocesarmargarette Hyatt on 02-21-2024 Hematocrit (Bld) [Volume fraction] 39.3 % 37-47 [facility] Hemoglobin measurementOrdere d By: Juliocesar Hyatt on 02-21-2024 Hemoglobin (Bld) [Mass/Vol] 13.0 g/dL 12.0-15.0 [facility] Immature granulocytes/100 WB C Auto (Bld)Ordered By: Juliocesarmargarette Hyatt on 02-21-2024 Immature granulocytes/100 WBC (Bld) 0.700 % 0.0-0.9 [facility] Comment on above: IG% - Immature Granu locytes (promyelocytes, myelocytes and metamyelocytes) > 1% indicates that a LEFT SHIFT is Present. Influenza virus A and B and SARS-CoV-2 (COVID-19) and Respiratory syncytial virus RNAOrdered By: Juliocesar Hyatt on 02-21-2024 SARS-CoV-2 (COVID-19) RNA IVAN+probe Ql (Unsp spec) [facility] L501.4020on 02-21-2024 TROPONIN-I HS 12 pg/mL Normal 3.0-54.0 [facility] Comment on above: Order Comment: 'TROP ' Serial specimen #1, #2 or #3: 1 Result Comment: Plea se Note: New Test Units and Gender Specific Reference Ranges. For more information see Policy Stat Procedure [place] High Sensitivity Troponin (TNIH) and attachments. Performed By: #### L 501.4020, L500.2500, L100.0100 #### [facility] [address] [place], [address] Lymphocytes Auto (Unsp spec) [#/Vol]Ordered By: Juliocesar Hyatt on 02-21-2024 Lymphocytes (Bld) [#/Vol] 2.58 10*3/uL 0.83-4.51 [facility] Lymphocytes/100 WBC Auto (Un sp spec)Ordered By: Juliocesar Hyatt on 02-21-2024 Lymphocytes/100 WBC (Bld) 22.2 % 19-41 [facility] M100.678on 02-21-2024 M100.678 Pending SARS-CoV-2 (COVID 19) Negative INFLUENZA A Negative INFLUENZA B Negative RSV PCR Negative Normal [facility] Comment on above: Performed By: #### M 100.678 ####[facility] [address] [place], [place], [id number] MCV (mean corpuscular volume ) determinationOrdered By: Juliocesar Hyatt on 02-21-2024 MCV (RBC) [Entitic vol] 97.3 fL 81-99 [facility] Mean corpuscular hemoglobin (MCH) determinationOrdered By: Juliocesar Hyatt on 02-21-2024 MCH (RBC) [Entitic mass] 32.2 pg High 27.0-32.0 [facility] Mean corpuscular hemoglobin concentration (MCHC) determinationOrdered By: Juliocesar Hyatt on 02-21-2024 MCHC (RBC) [Mass/Vol] 33.1 g/dL 32-36 [facility] Mean platelet volume determi nationOrdered By: Juliocesar Hyatt on 02-21-2024 Platelet mean volume (Bld) [Entitic vol] 10.8 fL 6.2-12.0 [facility] Monocyte percentageOrdered B y: Juliocesar Hyatt on 02-21-2024 Monocytes/100 WBC (Bld) 5.5 % 0-10 [facility] Neutrophil percentageOrdered By: Juliocesar Hyatt on 02-21-2024 Neutrophils/100 WBC (Bld) 69.9 % 47-70 [facility] No Panel InformationOrdered By: Juliocesar Hyatt on 02-21-2024 Blood Gas Sample Site Not entered [facility] Blood Gas Specimen Type ANDRÉS [facility] Oxygen Delivery Device Room Air [facility] Nucleated red blood cell per centageOrdered By: Juliocesar Hyatt on 02-21-2024 Nucleated RBC/100 WBC (Bld) [Ratio] 0 % 0-5 [facility] Oxygen (BldV) [Partial press ure]Ordered By: Juliocesar Hyatt on 02-21-2024 Venous Blood Partial Pressure O2 28 mmHg 25-40 [facility] Platelet countOrdered By: Errol Hyatt on 02-21-2024 Platelets (Bld) [#/Vol] 375 10*3/uL 150-450 [facility] Potassium measurementOrdered By: Juliocesar Hyatt on 02-21-2024 Potassium [Moles/Vol] 3.8 mmol/L 3.5-5.1 [facility] RBC Auto (Bld) [#/Vol]Ordere d By: Juliocesar Hyatt on 02-21-2024 RBC (Bld) [#/Vol] 4.04 10*6/uL Low 4.2-5.4 [facility] Serum anion gap measurementO rdered By: Juliocesar Hyatt on 02-21-2024 Anion gap [Moles/Vol] 8 mmol/L 5-15 [facility] Serum or plasma calcium brittny urement (mass/volume)Ordered By: Juliocesar Forrester on 02-21-2024 Calcium [Mass/Vol] 9.7 mg/dL 8.5-10.1 [facility] Serum or plasma creatinine m easurement (mass/volume)Ordered By: Juliocesar Forrester on 02-21-2024 Creatinine [Mass/Vol] 1.36 mg/dL High 0.55-1.02 [facility] Comment on above: The validity of the calculated GFR & GFRAA in patients over 70 years has not been determined. Clinical correlation is essential. Serum or plasma urea nitroge n measurement (mass/volume)Ordered By: Juliocesar Hyatt on 02-21-2024 Urea nitrogen [Mass/Vol] 18 mg/dL 7-18 [facility] Sodium levelOrdered By: Diego Hyatt on 02-21-2024 Sodium [Moles/Vol] 138 mmol/L 136-145 [facility] Troponin IOrdered By: Juliocesar Hyatt on 02-21-2024 Troponin I High Sensitivity 12 pg/mL 3.0-54.0 [facility] Comment on above: Please Note: New Alanis t Units and Gender Specific Reference Ranges. For more information see Policy Stat Procedure [place] High Sensitivity Troponin (TNIH) and attachments. Venous Blood Gason 4 Blood Gas Type ANDRÉS Normal [facility] Comment on above: Performed By: #### L 9000.0810 ####[facility] [address] [place], [address] CO2 [Moles/Vol] 25 mmol/L Normal 23-33 [facility] Comment on above: Performed By: #### L 9000.0810 ####[facility] [address] [place], [address] HCO3 (Bld) [Moles/Vol] 24 mmol/L Normal 22-[address] [facility] Comment on above: Performed By: #### L 9000.0810 ####[facility] [address] [place], [address] O2 Delivery Dev Room Air Normal [facility] Comment on above: Performed By: #### L 900.0810 ####[facility] [address] [place], [address] SITE Not entered Normal [facility] Comment on above: Performed By: #### L 9000.0810 ####[facility] [address] [place], [address] VBG BE 1 mmol/L Normal -1.0-3.5 [facility] Comment on above: Performed By: #### L 900.0810 ####[facility] [address] [place], [address] VBG pCO2 29.7 mmHg Low 41-51 [facility] Comment on above: Performed By: #### L 900.0810 ####[facility] [address] [place], [address] VBG pH 7.51 High 7.32-7.42 [facility] Comment on above: Performed By: #### L 9000.0810 ####[facility] [address] [place], [address] VBG PO2 28 mmHg Normal 25-40 [facility] Comment on above: Performed By: #### L 9000.0810 ####[facility] [address] [place], [address] VBG SO2 61 Normal 50-70 [facility] Comment on above: Performed By: #### L 9000.0810 ####[facility] [address] [place], [address] Venous blood bicarbonate peter surementOrdered By: Juliocesar Hyatt on 02-21-2024 HCO3 (Bld) [Moles/Vol] 24 mmol/L - [facility] Venous blood oxygen saturati on measurementOrdered By: Juliocesar Hyatt on 02-21-2024 Oxygen saturation in Blood 61 % 50-70 [facility] White blood cell (WBC) count Ordered By: Juliocesar Hyatt on 02-21-2024 WBC (Bld) [#/Vol] 11.6 10*3/uL High 4.4-11.0 [facility] pH (BldV)Ordered By: Juliocesar Patricia on 02-21-2024 Venous Blood pH 7.51 High 7.32-7.42 [facility] .Auto Diffon 11-25-2023 Basophil, Absolute 0.1 10 3/mcL Normal 0.0-0.2 [facility] Comment on above: Performed By: #### T SH, GFR, FT4, CBC, ADIFF, VIDH, A1C, CMP, ANEU #### [address] [address] #### B12 #### [address] [address] Basophils/100 WBC (Bld) 0.9 % Normal 0.0-2.5 [facility] Comment on above: Performed By: #### T SH, GFR, FT4, CBC, ADIFF, VIDH, A1C, CMP, ANEU #### [address] [address] #### B12 #### [address] [address] Eosinophil, Absolute 0.3 10 3/mcL Normal 0.0-0.7 [facility] Comment on above: Performed By: #### T SH, GFR, FT4, CBC, ADIFF, VIDH, A1C, CMP, ANEU #### [address] [address] #### B12 #### [address] [address] Eosinophils/100 WBC (Bld) 2.8 % Normal 0.0-7.0 [facility] Comment on above: Performed By: #### T SH, GFR, FT4, CBC, ADIFF, VIDH, A1C, CMP, ANEU #### [address] [address] #### B12 #### [address] [address] Lymphocyte, Absolute 2.2 10 3/mcL Normal 0.9-4.3 [facility] Comment on above: Performed By: #### T SH, GFR, FT4, CBC, ADIFF, VIDH, A1C, CMP, ANEU #### [place] [address] #### B12 #### [address] [address] Lymphocytes/100 WBC (Bld) 20.5 % Normal 20.0-40.0 [facility] Comment on above: Performed By: #### T SH, GFR, FT4, CBC, ADIFF, VIDH, A1C, CMP, ANEU #### [place] [address] #### B12 #### [address] [address] Monocyte, Absolute 0.6 10 3/mcL Normal 0.1-1.4 [facility] Comment on above: Performed By: #### T SH, GFR, FT4, CBC, ADIFF, VIDH, A1C, CMP, ANEU #### [place] [address] #### B12 #### [address] [address] Monocytes/100 WBC (Bld) 5.9 % Normal 2.0-13.0 [facility] Comment on above: Performed By: #### T SH, GFR, FT4, CBC, ADIFF, VIDH, A1C, CMP, ANEU #### [place] [address] #### B12 #### [address] [address] Neutrophils/100 WBC (Bld) 69.9 % Normal 50.0-75.0 [facility] Comment on above: Performed By: #### T SH, GFR, FT4, CBC, ADIFF, VIDH, A1C, CMP, ANEU #### [address] [address] #### B12 #### [address] [address] .GFRon 11-25-2023 GFR 42 ml/min/1.73sqm Normal [facility] Comment on above: Result Comment: GFR Population [...] CBC, ADIFF, VIDH, A1C, CMP, ANEU #### [address] [address] #### B12 #### [address] [address] GFR Non- 34 ml/min/1.73sqm Normal [facility] Comment on above: Result Comment: GFR Population [...] CBC, ADIFF, VIDH, A1C, CMP, ANEU #### [address] [address] #### B12 #### [address] [address] .NEUABSon 11-25-2023 Neutrophil, Absolute 7.6 10 3/mcL Normal 2.3-8.1 [facility] Comment on above: Performed By: #### T SH, GFR, FT4, CBC, ADIFF, VIDH, A1C, CMP, ANEU #### [address] [address] #### B12 #### [address] [address] A1Con 11-25-2023 Glucose [Mass/Vol] 111 mg/dL Normal [facility] Comment on above: Result Comment: Eloisa mated Average Glucose calculated by equation ((28.7xA1C)-46.7) Estimated average glucose (eAG) is a calculated value from Hemoglobin A1C and is client care representative of the average blood glucose level in the last 2-3 month period. Normal range: less than 114 mg/dL Performed By: #### U PARVEZ UA #### [address] [address] HbA1c (Bld) [Mass fraction] 5.5 % Normal 4.3-6.4 [facility] Comment on above: Performed By: #### Kush HANNON UA #### [address] [address] B12on 11-25-2023 Cobalamin (Vitamin B12) [Mass/Vol] 638 pg/mL Normal 211-911 [facility] Comment on above: Performed By: #### Kush HANNON UA #### [address] [address] CBCon 11-25-2023 Erythrocyte distribution width (RBC) [Ratio] 13.9 % Normal 11.5-15.5 [facility] Comment on above: Performed By: #### T SH, GFR, FT4, CBC, ADIFF, VIDH, A1C, CMP, ANEU #### [place] [address] #### B12 #### [place] [address] Hematocrit (Bld) [Volume fraction] 38.3 % Normal 34.0-46.0 [facility] Comment on above: Performed By: #### T SH, GFR, FT4, CBC, ADIFF, VIDH, A1C, CMP, ANEU #### [place] [address] #### B12 #### [place] [address] Hgb 12.9 G/dL Normal 12.0-16.0 [facility] Comment on above: Performed By: #### T SH, GFR, FT4, CBC, ADIFF, VIDH, A1C, CMP, ANEU #### [place] [address] #### B12 #### [place] [address] MCH (RBC) [Entitic mass] 31.9 pg Normal 27.0-33.0 [facility] Comment on above: Performed By: #### T SH, GFR, FT4, CBC, ADIFF, VIDH, A1C, CMP, ANEU #### [place] [address] #### B12 #### [place] [address] MCHC 33.5 G/dL Normal 32.0-36.0 [facility] Comment on above: Performed By: #### T SH, GFR, FT4, CBC, ADIFF, VIDH, A1C, CMP, ANEU #### [place] [address] #### B12 #### [place] [address] MCV (RBC) [Entitic vol] 95.1 fL Normal 80.0-99.0 [facility] Comment on above: Performed By: #### T SH, GFR, FT4, CBC, ADIFF, VIDH, A1C, CMP, ANEU #### [place] [address] #### B12 #### [place] [address] Platelet 340 10 3/mcL Normal 150-450 [facility] Comment on above: Performed By: #### T SH, GFR, FT4, CBC, ADIFF, VIDH, A1C, CMP, ANEU #### [place] [address] #### B12 #### [place] [address] Platelet mean volume (Bld) [Entitic vol] 10.4 fL Normal 6.6-10.5 [facility] Comment on above: Performed By: #### T SH, GFR, FT4, CBC, ADIFF, VIDH, A1C, CMP, ANEU #### [place] [address] #### B12 #### [place] [address] RBC 4.03 10 6/mcL Low 4.10-5.30 [facility] Comment on above: Performed By: #### T SH, GFR, FT4, CBC, ADIFF, VIDH, A1C, CMP, ANEU #### [place] [address] #### B12 #### [place] [address] WBC 10.9 10 3/mcL High 4.5-10.8 [facility] Comment on above: Performed By: #### T SH, GFR, FT4, CBC, ADIFF, VIDH, A1C, CMP, ANEU #### [place] [address] #### B12 #### [address] [address] CLINDAMYCIN:SUSC:PT:ISOLATE: ALEKSANDARQN:MICon 11-25-2023 Clindamycin TWYLA [Susc] Light Staphylococ cus aureus This staphylococci does not demonstrate inducible clindamycin resistance in vitro. Few normal skin alan present. Sensitivity testing not indicated. [facility] Work Phone[facility] Albumin Level 3.5 G/dL Normal 3.4-4.8 [facility] Comment on above: Performed By: #### T SH, GFR, FT4, CBC, ADIFF, VIDH, A1C, CMP, ANEU #### [place] [address] #### B12 #### [place] [address] Albumin/Globulin [Mass ratio] 0.9 {ratio} Low 1.1-2.5 [facility] Comment on above: Performed By: #### T SH, GFR, FT4, CBC, ADIFF, VIDH, A1C, CMP, ANEU #### [place] [address] #### B12 #### [address] [address] ALP [Catalytic activity/Vol] 115 U/L Normal 40-135 [facility] Comment on above: Performed By: #### T SH, GFR, FT4, CBC, ADIFF, VIDH, A1C, CMP, ANEU #### [place] [address] #### B12 #### [address] [address] ALT [Catalytic activity/Vol] 19 U/L Normal 14-59 [facility] Comment on above: Performed By: #### T SH, GFR, FT4, CBC, ADIFF, VIDH, A1C, CMP, ANEU #### [place] [address] #### B12 #### [address] [address] AST [Catalytic activity/Vol] 9 U/L Low 10-40 [facility] Comment on above: Performed By: #### T SH, GFR, FT4, CBC, ADIFF, VIDH, A1C, CMP, ANEU #### [address] [address] #### B12 #### [place] [address] Bili Total 0.3 mg/dL Normal 0.2-1.0 [facility] Comment on above: Result Comment: Use of this assay is not recommended for patients undergoing treatment with eltrombopag due to the potential for falsely elevated results. Performed By: #### T SH, GFR, FT4, CBC, ADIFF, VIDH, A1C, CMP, ANEU #### [place] [address] #### B12 #### [place] [address] BUN/Creatinine Ratio 11 ratio Normal 7-27 [facility] Comment on above: Performed By: #### T SH, GFR, FT4, CBC, ADIFF, VIDH, A1C, CMP, ANEU #### [place] [address] #### B12 #### [place] [address] Calcium [Mass/Vol] 9.5 mg/dL Normal 8.4-10.2 [facility] Comment on above: Performed By: #### T SH, GFR, FT4, CBC, ADIFF, VIDH, A1C, CMP, ANEU #### [place] [address] #### B12 #### [place] [address] Chloride [Moles/Vol] 96 mmol/L Low 98-107 [facility] Comment on above: Performed By: #### T SH, GFR, FT4, CBC, ADIFF, VIDH, A1C, CMP, ANEU #### [place] [address] #### B12 #### [address] [address] CO2 [Moles/Vol] 26 mmol/L Normal 23-31 [facility] Comment on above: Performed By: #### T SH, GFR, FT4, CBC, ADIFF, VIDH, A1C, CMP, ANEU #### [place] [address] #### B12 #### [place] [address] Creatinine [Mass/Vol] 1.49 mg/dL High 0.55-1.02 [facility] Comment on above: Result Comment: Test ing performed on [employer] Dimension EXL analyzer using a modified kinetic Jesi technique. Performed By: #### T SH, GFR, FT4, CBC, ADIFF, VIDH, A1C, CMP, ANEU #### [place] [address] #### B12 #### [place] [address] Electrolyte Balance 14.0 mEq/L Normal 4.0-15.0 [facility] Comment on above: Performed By: #### T SH, GFR, FT4, CBC, ADIFF, VIDH, A1C, CMP, ANEU #### [place] [address] #### B12 #### [place] [address] Globulin 3.9 G/dL Normal [facility] Comment on above: Performed By: #### T SH, GFR, FT4, CBC, ADIFF, VIDH, A1C, CMP, ANEU #### [place] [address] #### B12 #### [place] [address] Glucose [Mass/Vol] 142 mg/dL High 83-110 [facility] Comment on above: Performed By: #### T SH, GFR, FT4, CBC, ADIFF, VIDH, A1C, CMP, ANEU #### [address] [address] #### B12 #### [address] [address] Potassium [Moles/Vol] 3.3 mmol/L Low 3.5-5.1 [facility] Comment on above: Performed By: #### T SH, GFR, FT4, CBC, ADIFF, VIDH, A1C, CMP, ANEU #### [address] [address] #### B12 #### [address] [address] Sodium [Moles/Vol] 136 mmol/L Normal 136-145 [facility] Comment on above: Performed By: #### T SH, GFR, FT4, CBC, ADIFF, VIDH, A1C, CMP, ANEU #### [place] [address] #### B12 #### [address] [address] Total Protein 7.4 G/dL Normal 6.4-8.2 [facility] Comment on above: Performed By: #### T SH, GFR, FT4, CBC, ADIFF, VIDH, A1C, CMP, ANEU #### [address] [address] #### B12 #### [address] [address] Urea nitrogen [Mass/Vol] 17 mg/dL Normal 7-18 [facility] Comment on above: Performed By: #### T SH, GFR, FT4, CBC, ADIFF, VIDH, A1C, CMP, ANEU #### [place] [address] #### B12 #### [address] [address] Clindamycin TWYLA [Susc]on GS No organisms seen. [facility] Work Phone: Staphylococcus aureus Staphylococcus aureus [facility] Work Phone: FT4on 11-25-2023 Free T4 [Mass/Vol] 1.05 ng/dL Normal 0.76-1.46 [facility] Comment on above: Performed By: #### T SH, GFR, FT4, CBC, ADIFF, VIDH, A1C, CMP, ANEU #### [facility] [address] [place], [place] [address] #### B12 #### [facility] [address] [place] [address] LABORATORYOrdered By: SYSTEM SYSTEM on 11-25-2023 25-hydroxyvitamin [...] calculated value from Hemoglobin A1C and is client care representative of the average blood glucose level [...] 11-25-2023 TSH Qn 4.70 m[IU]/L High 0.36-3.74 [facility] Comment on above: Performed By: #### T SH, GFR, FT4, CBC, ADIFF, VIDH, A1C, CMP, ANEU #### [place] [address] [place], [place] [address] #### B12 #### [address] [address] VIDHon 11-25-2023 Vit. D 25-Hydroxy 34.6 ng/mL Normal [facility] Comment on above: Result Comment: Inte rpretive Values Based on Total 25([place]) Vitamin D: Deficient <20 ng/mL Insufficient 20 - <30 ng/mL Sufficient 30-100 ng/mL Performed By: #### T SH, GFR, FT4, CBC, ADIFF, VIDH, A1C, CMP, ANEU #### [place] [address] [place], [place] [address] #### B12 #### [facility] [address] [place] [address] Basic Metabolic Profile (BMP )on 09-02-2023 BUN/CRE 33.1 RATIO High 10-20 [facility] Comment on above: Order Comment: 'TROP ' Serial specimen #1, #2 or #3: 1 Performed By: #### L 501.4020, L500.2500, L100.0100 #### [facility] [address] [place], [address] CA,Total 9.1 mg/dL Normal 8.5-10.1 [facility] Comment on above: Order Comment: 'TROP ' Serial specimen #1, #2 or #3: 1 Performed By: #### L 501.4020, L500.2500, L100.0100 #### [facility] [address] [place], [address] Chloride [Moles/Vol] 102 mmol/L Normal 98-107 [facility] Comment on above: Order Comment: 'TROP ' Serial specimen #1, #2 or #3: 1 Performed By: #### L 501.4020, L500.2500, L100.0100 #### [facility] [address] [place], [address] CO2 [Moles/Vol] 24.0 mmol/L Normal 21.0-32.0 [facility] Comment on above: Order Comment: 'TROP ' Serial specimen #1, #2 or #3: 1 Performed By: #### L 501.4020, L500.2500, L100.0100 #### [facility] [address] [place], [address] Creatinine [Mass/Vol] 0.36 mg/dL Low 0.55-1.02 [facility] Comment on above: Order Comment: 'TROP ' Serial specimen #1, #2 or #3: 1 Result Comment: The validity of the calculated GFR GFRAA in patients over 70 years has not been determined. Clinical correlation is essential. Performed By: #### L 501.4020, L500.2500, L100.0100 #### [facility] [address] [place], [address] EST GFR - AA 226 mL/min Normal >60 [facility] Comment on above: Order Comment: 'TROP ' Serial specimen #1, #2 or #3: 1 Result Comment: Afri can Burundian GFR Calc Performed By: #### L 501.4020, L500.2500, L100.0100 #### [facility] [address] [place], [address] GAP 10 Normal 5-15 [facility] Comment on above: Order Comment: 'TROP ' Serial specimen #1, #2 or #3: 1 Performed By: #### L 501.4020, L500.2500, L100.0100 #### [facility] [address] [place], [address] GFR/1.73 sq M.predicted among non-blacks MDRD (S/P/Bld) [Vol rate/Area] 187 mL/min/{1.73_m2} Normal >60 [facility] Comment on above: Order Comment: 'TROP ' Serial specimen #1, #2 or #3: 1 Result Comment: Non- GFR Calc Performed By: #### L 501.4020, L500.2500, L100.0100 #### [facility] [address] [place], [address] Glucose [Mass/Vol] 98 mg/dL Normal 74-106 [facility] Comment on above: Order Comment: 'TROP ' Serial specimen #1, #2 or #3: 1 Performed By: #### L 501.4020, L500.2500, L100.0100 #### [facility] [address] [place], [address] Potassium [Moles/Vol] 3.9 mmol/L Normal 3.5-5.1 [facility] Comment on above: Order Comment: 'TROP ' Serial specimen #1, #2 or #3: 1 Performed By: #### L 501.4020, L500.2500, L100.0100 #### [facility] [address] [place], [address] Sodium [Moles/Vol] 136 mmol/L Normal 136-145 [facility] Comment on above: Order Comment: 'TROP ' Serial specimen #1, #2 or #3: 1 Performed By: #### L 501.4020, L500.2500, L100.0100 #### [facility] [address] [place], [address] Urea nitrogen [Mass/Vol] 12 mg/dL Normal 7-18 [facility] Comment on above: Order Comment: 'TROP ' Serial specimen #1, #2 or #3: 1 Performed By: #### L 501.4020, L500.2500, L100.0100 #### [facility] [address] [place], [address] CBC-Complete Blood Cnt No Di ffon 09-02-2023 Erythrocyte distribution width (RBC) [Ratio] 14.0 % Normal 11.6-14.6 [facility] Comment on above: Order Comment: 'TROP ' Serial specimen #1, #2 or #3: 1 Performed By: #### L 501.4020, L500.2500, L100.0100 #### [facility] [address] [place], [address] Hematocrit (Bld) [Volume fraction] 37.3 % Normal 37-47 [facility] Comment on above: Order Comment: 'TROP ' Serial specimen #1, #2 or #3: 1 Performed By: #### L 501.4020, L500.2500, L100.0100 #### [facility] [address] [place], [address] Hemoglobin (Bld) [Mass/Vol] 12.0 g/dL Normal 12.0-15.0 [facility] Comment on above: Order Comment: 'TROP ' Serial specimen #1, #2 or #3: 1 Performed By: #### L 501.4020, L500.2500, L100.0100 #### [facility] [address] [place], [address] MCH (RBC) [Entitic mass] 30.8 pg Normal 27.0-32.0 [facility] Comment on above: Order Comment: 'TROP ' Serial specimen #1, #2 or #3: 1 Performed By: #### L 501.4020, L500.2500, L100.0100 #### [facility] [address] [place], [address] MCHC (RBC) [Mass/Vol] 32.2 g/dL Normal 32-36 [facility] Comment on above: Order Comment: 'TROP ' Serial specimen #1, #2 or #3: 1 Performed By: #### L 501.4020, L500.2500, L100.0100 #### [facility] [address] [place], [address] MCV (RBC) [Entitic vol] 95.9 fL Normal 81-99 [facility] Comment on above: Order Comment: 'TROP ' Serial specimen #1, #2 or #3: 1 Performed By: #### L 501.4020, L500.2500, L100.0100 #### [facility] [address] [place], [address] Platelet mean volume (Bld) [Entitic vol] 11.3 fL Normal 6.2-12.0 [facility] Comment on above: Order Comment: 'TROP ' Serial specimen #1, #2 or #3: 1 Performed By: #### L 501.4020, L500.2500, L100.0100 #### [facility] [address] [place], [address] Platelets (Bld) [#/Vol] 268 10*3/uL Normal 150-450 [facility] Comment on above: Order Comment: 'TROP ' Serial specimen #1, #2 or #3: 1 Performed By: #### L 501.4020, L500.2500, L100.0100 #### [facility] [address] [place], [address] RBC (Bld) [#/Vol] 3.89 10*6/uL Low 4.2-5.4 [facility] Comment on above: Order Comment: 'TROP ' Serial specimen #1, #2 or #3: 1 Performed By: #### L 501.4020, L500.2500, L100.0100 #### [facility] [address] [place], [address] RDW SD 49.3 fl High 35.1-43.9 [facility] Comment on above: Order Comment: 'TROP ' Serial specimen #1, #2 or #3: 1 Performed By: #### L 501.4020, L500.2500, L100.0100 #### [facility] [address] [place], [address] WBC (Bld) [#/Vol] 14.2 10*3/uL High 4.4-11.0 [facility] Comment on above: Order Comment: 'TROP ' Serial specimen #1, #2 or #3: 1 Performed By: #### L 501.4020, L500.2500, L100.0100 #### [facility] [address] [place], [address] Hemoglobin A1con 09-02-2023 HbA1c (Bld) [Mass fraction] 5.8 % High 3.8-5.6 [facility] Comment on above: Order Comment: 'TROP ' Serial specimen #1, #2 or #3: 1 Result Comment: Norm al < 5.7 % Prediabetic 5.7 - 6.4 % Diabetic >or= 6.5 % Please note range changes. Performed By: #### L 501.4020, L500.2500, L100.0100 #### [facility] [address] [place], [address] Lipid Profileon 09-02-2023 Cholesterol [Mass/Vol] 105 mg/dL Normal [address] [facility] Comment on above: Order Comment: 'TROP ' Serial specimen #1, #2 or #3: 1 Result Comment: <200 mg/dL Desirable 200-240 mg/dL Borderline >240 mg/dL High Risk Performed By: #### L 501.4020, L500.2500, L100.0100 #### [facility] [address] [place], [address] Cholesterol in HDL [Mass/Vol] 24 mg/dL Low [facility] Comment on above: Order Comment: 'TROP ' Serial specimen #1, #2 or #3: 1 Result Comment: The drugs N-Acetylcysteine and Metamizole may falsely depress this assay. Reference Range HDL <40 mg/dL Low HDL Cholesterol HDL >or= 60 mg/dL High HDL Cholesterol Performed By: #### L 501.4020, L500.2500, L100.0100 #### [facility] [address] [place], [address] Cholesterol in LDL [Mass/Vol] 39 mg/dL Normal 0-130 [facility] Comment on above: Order Comment: 'TROP ' Serial specimen #1, #2 or #3: 1 Performed By: #### L 501.4020, L500.2500, L100.0100 #### [facility] [address] [place], [address] Cholesterol in VLDL [Mass/Vol] 42 mg/dL High 5-40 [facility] Comment on above: Order Comment: 'TROP ' Serial specimen #1, #2 or #3: 1 Performed By: #### L 501.4020, L500.2500, L100.0100 #### [facility] [address] [place], [address] Triglyceride [Mass/Vol] 209 mg/dL High [facility] Comment on above: Order Comment: 'TROP ' Serial specimen #1, #2 or #3: 1 Result Comment: The drugs N-Acetylcysteine and Metamizole may falsely depress this assay. Serum Triglycerides Reference Interval Normal <150 mg/dL Borderline high 150 - 199 mg/dL High 200 - 499 mg/dL Very High > or = 500 mg/dL Performed By: #### L 501.4020, L500.2500, L100.0100 #### [facility] [address] [place], [address] Bedside Glucoseon 09-01-2023 FINGERSTICK GLU 99 mg/dL Normal 74-106 [facility] Comment on above: Result Comment: JEAN GEMENT OF PATIENT CARE PER NURSING PROTOCOL Performed By: #### L 501.080 ####[facility] [address] [place], [address] FINGERSTICK GLU 188 mg/dL High 74-106 [facility] Comment on above: Result Comment: JEAN GEMENT OF PATIENT CARE PER NURSING PROTOCOL Performed By: #### L 501.080 ####[facility] [id number] [place], [address] FINGERSTICK GLU 131 mg/dL High 74-106 [facility] Comment on above: Result Comment: JEAN GEMENT OF PATIENT CARE PER NURSING PROTOCOL Performed By: #### L 501.4020, L500.2500, L100.0100 #### [facility] [address] [place], [address] Bedside Glucoseon 08-31-2023 FINGERSTICK GLU 94 mg/dL Normal 74-106 [facility] Comment on above: Result Comment: JEAN GEMENT OF PATIENT CARE PER NURSING PROTOCOL Performed By: #### L 501.080 ####[facility] [address] [place], [address] FINGERSTICK GLU 107 mg/dL High 74-106 [facility] Comment on above: Result Comment: JEAN GEMENT OF PATIENT CARE PER NURSING PROTOCOL Performed By: #### L 501.080 ####[facility] [address] [place], [address] FINGERSTICK GLU 48 mg/dL Low 74-106 [facility] Comment on above: Result Comment: JEAN GEMENT OF PATIENT CARE PER NURSING PROTOCOL Performed By: #### L 501.080 #### [facility] [address] [place], [address] FINGERSTICK GLU 80 mg/dL Normal 74-106 [facility] Comment on above: Result Comment: JEAN GEMENT OF PATIENT CARE PER NURSING PROTOCOL Performed By: #### L 501.4020, L500.2500, L100.0100 #### [facility] [address] [place], [address] FINGERSTICK GLU 79 mg/dL Normal 74-106 [facility] Comment on above: Result Comment: JEAN GEMENT OF PATIENT CARE PER NURSING PROTOCOL Performed By: #### L 501.080 ####[facility] [address] [place], [address] FINGERSTICK GLU 67 mg/dL Low 74-106 [facility] Comment on above: Result Comment: JEAN GEMENT OF PATIENT CARE PER NURSING PROTOCOL Performed By: #### L 501.080 ####[facility] [address] [place], [address] Culture, Blood (WB)on 2023 CUB No growth in 5 days. Normal [facility] Comment on above: Performed By: #### L 501.4020, L500.2500, L100.0100 #### [facility] [address] [place], [address] CUB No growth in 5 days. Normal [facility] Comment on above: Performed By: #### L 501.4020, L500.2500, L100.0100 #### [facility] [address] [place], [address] Basic Metabolic Profile (BMP )on 08-30-2023 BUN/CRE 39.5 RATIO High 10-20 [facility] Comment on above: Performed By: #### L 501.4020, L500.2500, L100.0100 #### [facility] [address] [place], [address] CA,Total 9.0 mg/dL Normal 8.5-10.1 [facility] Comment on above: Performed By: #### L 501.4020, L500.2500, L100.0100 #### [facility] [address] [place], [address] Chloride [Moles/Vol] 107 mmol/L Normal 98-107 [facility] Comment on above: Performed By: #### L 501.4020, L500.2500, L100.0100 #### [facility] [address] [place], [address] CO2 [Moles/Vol] 24.0 mmol/L Normal 21.0-32.0 [facility] Comment on above: Performed By: #### L 501.4020, L500.2500, L100.0100 #### [facility] [address] [place], [address] Creatinine [Mass/Vol] 0.63 mg/dL Normal 0.55-1.02 [facility] Comment on above: Result Comment: The validity of the calculated GFR GFRAA in patients over 70 years has not been determined. Clinical correlation is essential. Performed By: #### L 501.4020, L500.2500, L100.0100 #### [facility] [address] [place], [address] ECRCL 69.78 ml/min Normal [facility] Comment on above: Performed By: #### L 501.4020, L500.2500, L100.0100 #### [facility] [address] [place], [address] EST GFR - AA 119 mL/min Normal >60 [facility] Comment on above: Result Comment: Afri can Burundian GFR Calc Performed By: #### L 501.4020, L500.2500, L100.0100 #### [facility] [address] [place], [address] GAP 7 Normal 5-15 [facility] Comment on above: Performed By: #### L 501.4020, L500.2500, L100.0100 #### [facility] [address] [place], [address] GFR/1.73 sq M.predicted among non-blacks MDRD (S/P/Bld) [Vol rate/Area] 98 mL/min/{1.73_m2} Normal >60 [facility] Comment on above: Result Comment: Non- GFR Calc Performed By: #### L 501.4020, L500.2500, L100.0100 #### [facility] [facility] [address] [place], [address] Glucose [Mass/Vol] 77 mg/dL Normal 74-106 [facility] Comment on above: Performed By: #### L 501.4020, L500.2500, L100.0100 #### [facility] [address] [place], [address] Potassium [Moles/Vol] 3.8 mmol/L Normal 3.5-5.1 [facility] Comment on above: Performed By: #### L 501.4020, L500.2500, L100.0100 #### [facility] [address] [place], [address] Sodium [Moles/Vol] 138 mmol/L Normal 136-145 [facility] Comment on above: Performed By: #### L 501.4020, L500.2500, L100.0100 #### [facility] [address] [place], [address] Urea nitrogen [Mass/Vol] 25 mg/dL High 7-18 [facility] Comment on above: Performed By: #### L 501.4020, L500.2500, L100.0100 #### [facility] [address] [place], [address] Bedside Glucoseon 08-30-2023 FINGERSTICK GLU 77 mg/dL Normal 74-106 [facility] Comment on above: Result Comment: JEAN GEMENT OF PATIENT CARE PER NURSING PROTOCOL Performed By: #### L 501.4020, L500.2500, L100.0100 #### [facility] [address] [place], [address] FINGERSTICK GLU 77 mg/dL Normal 74-106 [facility] Comment on above: Result Comment: JEAN GEMENT OF PATIENT CARE PER NURSING PROTOCOL Performed By: #### L 501.080 #### [facility] [address] [place], [address] FINGERSTICK GLU 93 mg/dL Normal 74-106 [facility] Comment on above: Result Comment: JEAN GEMENT OF PATIENT CARE PER NURSING PROTOCOL Performed By: #### L 501.4020, L500.2500, L100.0100 #### [facility] [address] [place], [address] FINGERSTICK GLU 79 mg/dL Normal 74-106 [facility] Comment on above: Result Comment: JEAN GEMENT OF PATIENT CARE PER NURSING PROTOCOL Performed By: #### L 501.080 ####[facility] [address] [place], [address] FINGERSTICK GLU 90 mg/dL Normal 74-106 [facility] Comment on above: Result Comment: JEAN GEMENT OF PATIENT CARE PER NURSING PROTOCOL Performed By: #### L 501.080 ####[facility] [address] [place], [address] FINGERSTICK GLU 69 mg/dL Low 74-106 [facility] Comment on above: Result Comment: JEAN GONZALES OF PATIENT CARE PER NURSING PROTOCOL Performed By: #### L 501.080 #### [facility] [address] [place], [address] CBC W/Diff, Automatedon 07-0 8-2023 Absolute Lymph 1.34 X10 3/uL Normal 0.83-4.51 [facility] Comment on above: Performed By: #### L 501.4020, L500.2500, L100.0100 #### [facility] [address] [place], [address] Absolute Neut 11.5 X10 3/uL High 2.0-7.7 [facility] Comment on above: Performed By: #### L 501.4020, L500.2500, L100.0100 #### [facility] [address] [place], [address] Basophils/100 WBC (Bld) 0.4 % Normal 0-1 [facility] Comment on above: Performed By: #### L 501.4020, L500.2500, L100.0100 #### [facility] [address] [place], [address] Eosinophils/100 WBC (Bld) 0.6 % Normal 0-5 [facility] Comment on above: Performed By: #### L 501.4020, L500.2500, L100.0100 #### [facility] [address] [place], [address] Erythrocyte distribution width (RBC) [Ratio] 14.2 % Normal 11.6-14.6 [facility] Comment on above: Performed By: #### L 501.4020, L500.2500, L100.0100 #### [facility] [address] [place], [address] Hematocrit (Bld) [Volume fraction] 37.9 % Normal 37-47 [facility] Comment on above: Performed By: #### L 501.4020, L500.2500, L100.0100 #### [facility] [address] [place], [address] Hemoglobin (Bld) [Mass/Vol] 12.0 g/dL Normal 12.0-15.0 [facility] Comment on above: Performed By: #### L 501.4020, L500.2500, L100.0100 #### [facility] [address] [place], [address] IG% 1.400 High 0.0-0.9 [facility] Comment on above: Result Comment: IG% - Immature Granulocytes (promyelocytes, myelocytes and metamyelocytes) > 1% indicates that a LEFT SHIFT is Present. Performed By: #### L 501.4020, L500.2500, L100.0100 #### [facility] [address] [place], [address] Lymphocytes/100 WBC (Bld) 9.7 % Low 19-41 [facility] Comment on above: Performed By: #### L 501.4020, L500.2500, L100.0100 #### [facility] [address] [place], [address] MCH (RBC) [Entitic mass] 31.3 pg Normal 27.0-32.0 [facility] Comment on above: Performed By: #### L 501.4020, L500.2500, L100.0100 #### [facility] [address] [place], [address] MCHC (RBC) [Mass/Vol] 31.7 g/dL Low 32-36 [facility] Comment on above: Performed By: #### L 501.4020, L500.2500, L100.0100 #### [facility] [address] [place], [address] MCV (RBC) [Entitic vol] 99.0 fL Normal 81-99 [facility] Comment on above: Performed By: #### L 501.4020, L500.2500, L100.0100 #### [facility] [address] [place], [address] Monocytes/100 WBC (Bld) 5.1 % Normal 0-10 [facility] Comment on above: Performed By: #### L 501.4020, L500.2500, L100.0100 #### [facility] [address] [place], [address] Neutrophils/100 WBC (Bld) 82.8 % High 47-70 [facility] Comment on above: Performed By: #### L 501.4020, L500.2500, L100.0100 #### [facility] [address] [place], [address] Nucleated RBC (Bld) [#/Vol] 0 10*3/uL Normal 0-5 [facility] Comment on above: Performed By: #### L 501.4020, L500.2500, L100.0100 #### [facility] [address] [place], [address] Platelet mean volume (Bld) [Entitic vol] 12.5 fL High 6.2-12.0 [facility] Comment on above: Performed By: #### L 501.4020, L500.2500, L100.0100 #### [facility] [address] [place], [address] Platelets (Bld) [#/Vol] 173 10*3/uL Normal 150-450 [facility] Comment on above: Performed By: #### L 501.4020, L500.2500, L100.0100 #### [facility] [address] [place], [address] RBC (Bld) [#/Vol] 3.83 10*6/uL Low 4.2-5.4 [facility] Comment on above: Performed By: #### L 501.4020, L500.2500, L100.0100 #### [facility] [address] [place], [address] RDW SD 52.1 fl High 35.1-43.9 [facility] Comment on above: Performed By: #### L 501.4020, L500.2500, L100.0100 #### [facility] [address] [place], [address] WBC (Bld) [#/Vol] 13.9 10*3/uL High 4.4-11.0 [facility] Comment on above: Performed By: #### L 501.4020, L500.2500, L100.0100 #### [facility] [address] [place], [address] Basic Metabolic Profile (BMP )on 08-29-2023 BUN/CRE 37.9 RATIO High 10-20 [facility] Comment on above: Performed By: #### L 501.4020, L500.2500, L100.0100 #### [facility] [address] [place], [address] CA,Total 8.8 mg/dL Normal 8.5-10.1 [facility] Comment on above: Performed By: #### L 501.4020, L500.2500, L100.0100 #### [facility] [address] [place], [address] Chloride [Moles/Vol] 105 mmol/L Normal 98-107 [facility] Comment on above: Performed By: #### L 501.4020, L500.2500, L100.0100 #### [facility] [address] [place], [address] CO2 [Moles/Vol] 26.0 mmol/L Normal 21.0-32.0 [facility] Comment on above: Performed By: #### L 501.4020, L500.2500, L100.0100 #### [facility] [address] [place], [address] Creatinine [Mass/Vol] 0.76 mg/dL Normal 0.55-1.02 [facility] Comment on above: Result Comment: The validity of the calculated GFR GFRAA in patients over 70 years has not been determined. Clinical correlation is essential. Performed By: #### L 501.4020, L500.2500, L100.0100 #### [facility] [address] [place], [address] ECRCL 69.78 ml/min Normal [facility] Comment on above: Performed By: #### L 501.4020, L500.2500, L100.0100 #### [facility] [address] [place], [address] EST GFR - AA 96 mL/min Normal >60 [facility] Comment on above: Result Comment: Afri can Burundian GFR Calc Performed By: #### L 501.4020, L500.2500, L100.0100 #### [facility] [address] [place], [address] GAP 7 Normal 5-15 [facility] Comment on above: Performed By: #### L 501.4020, L500.2500, L100.0100 #### [facility] [address] [place], [address] GFR/1.73 sq M.predicted among non-blacks MDRD (S/P/Bld) [Vol rate/Area] 79 mL/min/{1.73_m2} Normal >60 [facility] Comment on above: Result Comment: Non- GFR Calc Performed By: #### L 501.4020, L500.2500, L100.0100 #### [facility] [address] [place], [address] Glucose [Mass/Vol] 70 mg/dL Low 74-106 [facility] Comment on above: Performed By: #### L 501.4020, L500.2500, L100.0100 #### [facility] [address] [place], [address] Potassium [Moles/Vol] 3.8 mmol/L Normal 3.5-5.1 [facility] Comment on above: Performed By: #### L 501.4020, L500.2500, L100.0100 #### [facility] [address] [place], [address] Sodium [Moles/Vol] 138 mmol/L Normal 136-145 [facility] Comment on above: Performed By: #### L 501.4020, L500.2500, L100.0100 #### [facility] [address] [place], [address] Urea nitrogen [Mass/Vol] 29 mg/dL High 7-18 [facility] Comment on above: Performed By: #### L 501.4020, L500.2500, L100.0100 #### [facility] [address] [place], [address] Bedside Glucoseon 08-29-2023 FINGERSTICK GLU 101 mg/dL Normal 74-106 [facility] Comment on above: Result Comment: JEAN GEMENT OF PATIENT CARE PER NURSING PROTOCOL Performed By: #### L 501.080 ####[facility] [address] [place], [address] FINGERSTICK GLU 75 mg/dL Normal 74-106 [facility] Comment on above: Result Comment: JEAN GEMENT OF PATIENT CARE PER NURSING PROTOCOL Performed By: #### L 501.080 #### [facility] [address] [place], [address] FINGERSTICK GLU 60 mg/dL Low 74-106 [facility] Comment on above: Result Comment: JEAN GEMENT OF PATIENT CARE PER NURSING PROTOCOL Performed By: #### L 501.080 ####[facility] [address] [place], [address] FINGERSTICK GLU 67 mg/dL Low 74-106 [facility] Comment on above: Result Comment: JEAN GEMENT OF PATIENT CARE PER NURSING PROTOCOL Performed By: #### L 501.4020, L500.2500, L100.0100 #### [facility] [address] [place], [address] FINGERSTICK GLU 78 mg/dL Normal 74-106 [facility] Comment on above: Result Comment: JEAN GEMENT OF PATIENT CARE PER NURSING PROTOCOL Performed By: #### L 501.4020, L500.2500, L100.0100 #### [facility] [address] [place], [address] FINGERSTICK GLU 122 mg/dL High 74-106 [facility] Comment on above: Result Comment: JEAN GEMENT OF PATIENT CARE PER NURSING PROTOCOL Performed By: #### L 501.4020, L500.2500, L100.0100 #### [facility] [address] [place], [address] FINGERSTICK GLU 82 mg/dL Normal 74-106 [facility] Comment on above: Result Comment: JEAN GEMENT OF PATIENT CARE PER NURSING PROTOCOL Performed By: #### L 501.4020, L500.2500, L100.0100 #### [facility] [address] [place], [address] CBC W/Diff, Automatedon 07-0 -2023 Absolute Lymph 1.15 X10 3/uL Normal 0.83-4.51 [facility] Comment on above: Performed By: #### L 501.4020, L500.2500, L100.0100 #### [facility] [address] [place], [address] Absolute Neut 11.4 X10 3/uL High 2.0-7.7 [facility] Comment on above: Performed By: #### L 501.4020, L500.2500, L100.0100 #### [facility] [address] [place], [address] Basophils/100 WBC (Bld) 0.4 % Normal 0-1 [facility] Comment on above: Performed By: #### L 501.4020, L500.2500, L100.0100 #### [facility] [address] [place], [address] Eosinophils/100 WBC (Bld) 0.5 % Normal 0-5 [facility] Comment on above: Performed By: #### L 501.4020, L500.2500, L100.0100 #### [facility] [address] [place], [address] Erythrocyte distribution width (RBC) [Ratio] 14.0 % Normal 11.6-14.6 [facility] Comment on above: Performed By: #### L 501.4020, L500.2500, L100.0100 #### [facility] [address] [place], [address] Hematocrit (Bld) [Volume fraction] 35.8 % Low 37-47 [facility] Comment on above: Performed By: #### L 501.4020, L500.2500, L100.0100 #### [facility] [address] [place], [address] Hemoglobin (Bld) [Mass/Vol] 11.4 g/dL Low 12.0-15.0 [facility] Comment on above: Performed By: #### L 501.4020, L500.2500, L100.0100 #### [facility] [address] [place], [address] IG% 0.500 Normal 0.0-0.9 [facility] Comment on above: Result Comment: IG% - Immature Granulocytes (promyelocytes, myelocytes and metamyelocytes) > 1% indicates that a LEFT SHIFT is Present. Performed By: #### L 501.4020, L500.2500, L100.0100 #### [facility] [address] [place], [address] Lymphocytes/100 WBC (Bld) 8.5 % Low 19-41 [facility] Comment on above: Performed By: #### L 501.4020, L500.2500, L100.0100 #### [facility] [address] [place], [address] MCH (RBC) [Entitic mass] 31.4 pg Normal 27.0-32.0 [facility] Comment on above: Performed By: #### L 501.4020, L500.2500, L100.0100 #### [facility] [address] [place], [address] MCHC (RBC) [Mass/Vol] 31.8 g/dL Low 32-36 [facility] Comment on above: Performed By: #### L 501.4020, L500.2500, L100.0100 #### [facility] [address] [place], [address] MCV (RBC) [Entitic vol] 98.6 fL Normal 81-99 [facility] Comment on above: Performed By: #### L 501.4020, L500.2500, L100.0100 #### [facility] [address] [place], [address] Monocytes/100 WBC (Bld) 5.5 % Normal 0-10 [facility] Comment on above: Performed By: #### L 501.4020, L500.2500, L100.0100 #### [facility] [address] [place], [address] Neutrophils/100 WBC (Bld) 84.6 % High 47-70 [facility] Comment on above: Performed By: #### L 501.4020, L500.2500, L100.0100 #### [facility] [address] [place], [address] Nucleated RBC (Bld) [#/Vol] 0 10*3/uL Normal 0-5 [facility] Comment on above: Performed By: #### L 501.4020, L500.2500, L100.0100 #### [facility] [address] [place], [address] Platelet mean volume (Bld) [Entitic vol] 13.0 fL High 6.2-12.0 [facility] Comment on above: Performed By: #### L 501.4020, L500.2500, L100.0100 #### [facility] [address] [place], [address] Platelets (Bld) [#/Vol] 148 10*3/uL Low 150-450 [facility] Comment on above: Performed By: #### L 501.4020, L500.2500, L100.0100 #### [facility] [address] [place], [address] RBC (Bld) [#/Vol] 3.63 10*6/uL Low 4.2-5.4 [facility] Comment on above: Performed By: #### L 501.4020, L500.2500, L100.0100 #### [facility] [address] [place], [address] RDW SD 51.8 fl High 35.1-43.9 [facility] Comment on above: Performed By: #### L 501.4020, L500.2500, L100.0100 #### [facility] [address] [place], [address] WBC (Bld) [#/Vol] 13.5 10*3/uL High 4.4-11.0 [facility] Comment on above: Performed By: #### L 501.4020, L500.2500, L100.0100 #### [facility] [address] [place], [address] CRPon 08-29-2023 C-REACTIVE PROT 311.00 mg/L High 0.0-3.0 [facility] Comment on above: Result Comment: C-Re active Protein (CRP) provides useful information for the diagnosis, therapy and monitoring of inflammatory processes and associated diseases. For the evaluation of Relative Risk for Cardiovascular Disease, a High Sensitivity CRP (HSCRP) should be ordered. Performed By: #### L 501.080 #### [facility] [address] [place], [address] Erythrocyte Sed Rateon 08-28 SED RATE 77 mm/hr High 0-30 [facility] Comment on above: Performed By: #### L 101.9900 ####[facility] [id number] [place], [address] Foot min 3 Viewson 4 Foot min 3 Views [facility] [address] [place] [address] Foot min 3 Views MR#: [id number] Acct: [id number] Name: YENIFERDAVID Ramesh Rep #: [id number] : 1950 F 73 From: Christian gilliam MD PCP: Dr. Richie Heredia, Status: ADM IN Study: Foot min 3 Views Date of Exam: 08/29/23 Exam# [id number] Ordering Dr: Jaya Rachel MD [id number] INDICATION: RIGHT FOOT AND TOES PAIN EXAMINATION/TECHNIQU [...] Richie Heredia DO; Dr. Jaya Rachel MD Tax Intern: Signed Normal [facility] Tibia Fibula 2 Viewson 08-28 Tibia Fibula 2 Views [facility] [address] [place] [address] Tibia Fibula 2 Views MR#: [id number] Acct: [id number] Name: DAVID STREET Rep #: [id number] : 1950 F 73 From: Pritesh Chandler PCP: Dr. Richie Heredia DO Status: ADM IN Study: Tibia Fibula 2 Views Date of Exam: 08/29/23 Exam# [id number] Ordering Dr: Jaya Rachel MD [id number] EXAM: XR RIGHT TIBIA AND FIBULA, 1 [...] Richie Heredia DO; Dr. Jaya Rachel MD Tax Intern: Signed Normal [facility] Uric Acidon 08-29-2023 URIC 5.7 mg/dL Normal 2.6-6.0 [facility] Comment on above: Result Comment: The drugs N-Acetylcysteine and Metamizole may falsely depress this assay. Performed By: #### L 501.1400, L501.6710 ####[facility] [id number] [place], [address] Venous Duplex US - Placido Extre [facility] 08-29-2023 Venous Duplex US - Placido Extrem [facility] [address] [place] [address] Venous Duplex US - Placido Extrem 08/30/23 0847 MR#: [id number] Acct: [id number] Name: DAVID STREET Rep #: [id number] : 1950 73 From: Mejia Vega MD [...] preliminary report was called and/or faxed to [facility]. VL/Venous Duplex US - Placido Extrem [...] Date Dictated: 08/30/23 0847 Date Transcribed: 08/31/231533 Tax Intern: Signed Normal [facility] Bedside Glucoseon 08-28-2023 FINGERSTICK GLU 88 mg/dL Normal 74-106 [facility] Comment on above: Result Comment: JEAN GEMENT OF PATIENT CARE PER NURSING PROTOCOL Performed By: #### L 501.080 #### [facility] [address] [place], [address] FINGERSTICK GLU 96 mg/dL Normal 74-106 [facility] Comment on above: Result Comment: JEAN GEMENT OF PATIENT CARE PER NURSING PROTOCOL Performed By: #### L 501.080 #### [facility] [address] [place], [address] FINGERSTICK GLU 138 mg/dL High 74-106 [facility] Comment on above: Result Comment: JEAN GEMENT OF PATIENT CARE PER NURSING PROTOCOL Performed By: #### L 501.080 #### [facility] [address], [address] FINGERSTICK GLU 101 mg/dL Normal 74-106 [facility] Comment on above: Result Comment: JEAN GEMENT OF PATIENT CARE PER NURSING PROTOCOL Performed By: #### L 501.080 #### [facility] [address] [place], [address] Magnesiumon 08-28-2023 Magnesium [Mass/Vol] 2.5 mg/dL Normal 1.6-2.6 [facility] Comment on above: Performed By: #### L 501.080 #### [facility] [address] [place], [address] Phosphoruson 08-28-2023 Phosphate [Mass/Vol] 2.6 mg/dL Normal 2.5-4.9 [facility] [facility] Comment on above: Performed By: #### L 501.080 #### [facility] [address] [place], [address] 12 Lead EKGon 08-27-2023 12 Lead EKG [facility] [address] [place] [address] 12 Lead EKG 08/27/23 1131 MR#: [id number] Acct: [id number] Name: DAVID STREET Rep #: [id number] : 1950 73 From: Alberto Williamson MD Attending Dr: Dr. Mejia Grissom, Status: ADM IN Ordering Dr: Daryl Verduzco MD Date: 08/27/23 Location: [facility] Sex: F C Admitted: 08/26/23 Test [...] UNCONFIRMED Confirmed by GREER BRAGG, ALBERTO ([id number]), purchasing expeditor MARY SAENZ ([id number]) on 08/30/2023 10:26:24 AM Referred By: DAVID Confirmed By:ALBERTO WILLIAMSON MD 08/30/23 1026 Date Alberto Williamson MD CC: Dr. Daryl Verduzco MD; Dr. Mejia Grissom DO; Dr. Richie Heredia DO Signed Normal [facility] 12 Lead EKG [facility] [address] [place] [address] 12 Lead EKG 08/26/23 1458 MR#: [id number] Acct: [id number] Name: DAVID STREET Rep #: [id number] : 1950 73 From: Richie Small MD Attending Dr: Dr. Mejia Grissom DO Status: ADM IN Ordering Dr: Daryl Verduzco MD Date: 08/27/23 Location: [facility] Sex: F C Admitted: 08/26/23 Test [...] DATA IS UNCONFIRMED Confirmed by Richie Small ([id number]), purchasing expeditor MARY SAENZ ([id number]) on 08/31/2023 7:54:48 AM Referred By: Confirmed By:Richie Small 08/31/23 0754 Date Richie Small MD CC: Dr. Daryl Verduzco MD; Dr. Mejia Grissom DO; Dr. Richie Heredia DO Signed Normal [facility] Bedside Glucoseon 08-27-2023 FINGERSTICK GLU 123 mg/dL High 74-106 [facility] Comment on above: Result Comment: JEAN GEMENT OF PATIENT CARE PER NURSING PROTOCOL Performed By: #### L 501.080 #### [facility] [address] [place], [address] FINGERSTICK GLU 179 mg/dL High 74-106 [facility] Comment on above: Result Comment: JEAN GEMENT OF PATIENT CARE PER NURSING PROTOCOL Performed By: #### L 501.080 #### [facility] [address] [place], [address] FINGERSTICK GLU 136 mg/dL High -106 [facility] Comment on above: Result Comment: JEAN GEMENT OF PATIENT CARE PER NURSING PROTOCOL Performed By: #### L 501.080 #### [facility] [address] [place], [address] FINGERSTICK GLU 79 mg/dL Normal 74-106 [facility] Comment on above: Result Comment: JEAN GEMENT OF PATIENT CARE PER NURSING PROTOCOL Performed By: #### L 501.080 #### [facility] [address] [place], [address] CBC W/Diff, Automatedon 07-0 Absolute Lymph 0.66 X10 3/uL Low 0.83-4.51 [facility] Comment on above: Performed By: #### L 501.080 #### [facility] [address] [place], [address] Absolute Neut 13.3 X10 3/uL High 2.0-7.7 [facility] Comment on above: Performed By: #### L 501.080 #### [facility] [address] [place], [address] Basophils/100 WBC (Bld) 0.3 % Normal 0-1 [facility] Comment on above: Performed By: #### L 501.080 #### [facility] [address] [place], [address] Eosinophils/100 WBC (Bld) 0.1 % Normal 0-5 [facility] Comment on above: Performed By: #### L 501.080 #### [facility] [address] [place], [address] Erythrocyte distribution width (RBC) [Ratio] 13.9 % Normal 11.6-14.6 [facility] Comment on above: Performed By: #### L 501.080 #### [facility] [address] [place], [address] Hematocrit (Bld) [Volume fraction] 37.1 % Normal 37-47 [facility] Comment on above: Performed By: #### L 501.080 #### [facility] [address] [place], [address] Hemoglobin (Bld) [Mass/Vol] 11.9 g/dL Low 12.0-15.0 [facility] Comment on above: Performed By: #### L 501.080 #### [facility] [address] [place], [address] IG% 1.500 High 0.0-0.9 [facility] Comment on above: Result Comment: IG% - Immature Granulocytes (promyelocytes, myelocytes and metamyelocytes) > 1% indicates that a LEFT SHIFT is Present. Performed By: #### L 501.080 #### [facility] [address] [place], [address] Lymphocytes/100 WBC (Bld) 4.4 % Low 19-41 [facility] Comment on above: Performed By: #### L 501.080 #### [facility] [address] [place], [address] MCH (RBC) [Entitic mass] 31.2 pg Normal 27.0-32.0 [facility] Comment on above: Performed By: #### L 501.080 #### [facility] [address] [place], [address] MCHC (RBC) [Mass/Vol] 32.1 g/dL Normal 32-36 [facility] Comment on above: Performed By: #### L 501.080 #### [facility] [address] [place], [address] MCV (RBC) [Entitic vol] 97.4 fL Normal 81-99 [facility] Comment on above: Performed By: #### L 501.080 #### [facility] [address] [place], [address] Monocytes/100 WBC (Bld) 4.4 % Normal 0-10 [facility] Comment on above: Performed By: #### L 501.080 #### [facility] [address] [place], [address] Neutrophils/100 WBC (Bld) 89.3 % High 47-70 [facility] Comment on above: Performed By: #### L 501.080 #### [facility] [address] [place], [address] Nucleated RBC (Bld) [#/Vol] 0 10*3/uL Normal 0-5 [facility] Comment on above: Performed By: #### L 501.080 #### [facility] [address] [place], [address] Platelet mean volume (Bld) [Entitic vol] 12.1 fL High 6.2-12.0 [facility] Comment on above: Performed By: #### L 501.080 #### [facility] [address] [place], [address] Platelets (Bld) [#/Vol] 173 10*3/uL Normal 150-450 [facility] Comment on above: Performed By: #### L 501.080 #### [facility] [address] [place], [address] RBC (Bld) [#/Vol] 3.81 10*6/uL Low 4.2-5.4 [facility] Comment on above: Performed By: #### L 501.080 #### [facility] [address] [place], [address] RDW SD 50.1 fl High 35.1-43.9 [facility] Comment on above: Performed By: #### L 501.080 #### [facility] [address] [place], [address] WBC (Bld) [#/Vol] 14.9 10*3/uL High 4.4-11.0 [facility] Comment on above: Performed By: #### L 501.080 #### [facility] [address] [place], [address] PATH REV Reviewed Normal [facility] Comment on above: Result Comment: Neut rophilic leukocytosis. Clinical correlation necessary. Kenneth Ramos M.D. 08/27/23 AMENDED REPORT 08/27/23 0934 PATH REV previously reported as: June marychuy Performed By: #### L 501.080 #### [facility] [address] [place], [address] Comprehensive Metabolic Prof ilon 08-27-2023 Albumin [Mass/Vol] 2.1 g/dL Low 3.2-5.0 [facility] Comment on above: Performed By: #### L 501.080 #### [facility] [address] [place], [address] Albumin/Globulin [Mass ratio] 0.5 {ratio} Low 0.9-2.4 [facility] Comment on above: Performed By: #### L 501.080 #### [facility] [address] [place], [address] ALK P 96 U/L Normal 45-117 [facility] Comment on above: Performed By: #### L 501.080 #### [facility] [address] [place], [address] ALT [Catalytic activity/Vol] 11 U/L Low 13-56 [facility] Comment on above: Performed By: #### L 501.080 #### [facility] [address] [place], [address] AST [Catalytic activity/Vol] 20 U/L Normal 15-37 [facility] Comment on above: Performed By: #### L 501.080 #### [facility] [address] [place], [address] Bilirubin [Mass/Vol] 0.20 mg/dL Normal 0.20-1.00 [facility] Comment on above: Result Comment: For patients on eltrombopag therapy, use of Dimension [place] TBIL is not recommended. Performed By: #### L 501.080 #### [facility] [address] [place], [address] BUN/CRE 24.6 RATIO High 10-20 [facility] Comment on above: Performed By: #### L 501.080 #### [facility] [address] [place], [address] CA,Total 8.4 mg/dL Low 8.5-10.1 [facility] Comment on above: Performed By: #### L 501.080 #### [facility] [address] [place], [address] Chloride [Moles/Vol] 104 mmol/L Normal 98-107 [facility] Comment on above: Performed By: #### L 501.080 #### [facility] [address] [place], [address] CO2 [Moles/Vol] 25.0 mmol/L Normal 21.0-32.0 [facility] Comment on above: Performed By: #### L 501.080 #### [facility] [address] [place], [address] Creatinine [Mass/Vol] 1.38 mg/dL High 0.55-1.02 [facility] Comment on above: Result Comment: The validity of the calculated GFR GFRAA in patients over 70 years has not been determined. Clinical correlation is essential. Performed By: #### L 501.080 #### [facility] [address] [place], [address] ECRCL 40.45 ml/min Normal [facility] Comment on above: Performed By: #### L 501.080 #### [facility] [address] [place], [address] EST GFR - AA 48 mL/min Low >60 [facility] Comment on above: Result Comment: Afri can Bur[place]ian GFR Calc Performed By: #### L 501.080 #### [facility] [address] [place], [address] GAP 9 Normal 5-15 [facility] Comment on above: Performed By: #### L 501.080 #### [facility] [address] [place], [address] GFR/1.73 sq M.predicted among non-blacks MDRD (S/P/Bld) [Vol rate/Area] 40 mL/min/{1.73_m2} Low >60 [facility] Comment on above: Result Comment: Non- GFR Calc Performed By: #### L 501.080 #### [facility] [address] [place], [address] Globulin (S) [Mass/Vol] 4.1 g/dL Normal 2.2-4.2 [facility] Comment on above: Performed By: #### L 501.080 #### [facility] [address] [place], [address] Glucose [Mass/Vol] 175 mg/dL High 74-106 [facility] Comment on above: Result Comment: Fast ing Glucose result greater than or equal to 126 mg/dL suggests DIABETES MELLITUS per A.D.A. criteria. Performed By: #### L 501.080 #### [facility] [address] [place], [address] Potassium [Moles/Vol] 3.4 mmol/L Low 3.5-5.1 [facility] Comment on above: Performed By: #### L 501.080 #### [facility] [address] [place], [address] Sodium [Moles/Vol] 138 mmol/L Normal 136-145 [facility] Comment on above: Performed By: #### L 501.080 #### [facility] [address] [place], [address] T PROT 6.2 g/dL Low 6.4-8.2 [facility] Comment on above: Performed By: #### L 501.080 #### [facility] [address] [place], [address] Urea nitrogen [Mass/Vol] 34 mg/dL High 7-18 [facility] Comment on above: Performed By: #### L 501.080 #### [facility] [address] [place], [address] 12 Lead EKGon 08-26-2023 12 Lead EKG [facility] [address] [place] [address] 12 Lead EKG 08/27/23 1048 MR#: [id number] Acct: [id number] Name: DAVID STREET Rep #: [id number] : 1950 73 From: Alberto Williamson MD Attending Dr: Dr. Mejia Grissom DO Status: ADM IN Ordering Dr: Daryl Verduzco MD Date: 08/26/23 Location: [facility] Sex: F C Admitted: 08/26/23 Test [...] UNCONFIRMED Confirmed by GREER BRAGG, ALBERTO ([id number]), purchasing expeditor MARY SAENZ ([id number]) on 08/30/2023 10:25:45 AM Referred By: DAVID Confirmed By:ALBERTO WILLIAMSON MD 08/30/23 1025 Date Alberto Williamson MD CC: Dr. Daryl Verduzco MD; Dr. Mejia Grissom DO; Dr. Richie Heredia DO Signed Normal [facility] 12 Lead EKG [facility] [address] [place] [address] 12 Lead EKG 08/26/23 0531 MR#: [id number] Acct: [id number] Name: DAVID STREET Rep #: [id number] : 1950 73 From: Richie Small MD Attending Dr: Dr. Mejia Grissom DO Status: ADM IN Ordering Dr: Maximilian Ellison DO Date: 08/26/23 Location: [facility] Sex: F C Admitted: 08/26/23 Test Reason : TACHY Blood Pressure : / mmHG Vent. Rate : 114 BPM Atrial Rate : 115 BPM P-R Int : 174 ms QRS Dur : 098 ms QT Int : 334 ms P-R-T Axes : 073 -40 060 degrees QTc Int : 460 ms Sinus tachycardia Left axis deviation Cannot rule out Inferior CO Cannot rule out Anterior infarct , age undetermined Abnormal ECG When compared with ECG of 26-JUL-2023 16:55, Vent. rate has increased BY 43 BPM Nonspecific T wave abnormality now evident in Lateral leads Confirmed by Richie Small ([id number]), purchasing expeditor MARY SAENZ ([id number]) on 08/31/2023 7:55:15 AM Referred By: Confirmed By:Richie Small 08/31/23 0755 Date Richie Small MD CC: Dr. Maximilian Ellison DO; Dr. Mejia Grissom DO; Dr. Richie Heredia DO Signed Normal [facility] Basic Metabolic Profile (BMP )on 08-26-2023 BUN/CRE 20.0 RATIO Normal 10-20 [facility] Comment on above: Performed By: #### L 501.080 #### [facility] [address] [place], [place], [address] ([address] CA,Total 8.5 mg/dL Normal 8.5-10.1 [facility] Comment on above: Performed By: #### L 501.080 #### [facility] [address] [place], [address] Chloride [Moles/Vol] 104 mmol/L Normal 98-107 [facility] Comment on above: Performed By: #### L 501.080 #### [facility] [address] [place], [address] CO2 [Moles/Vol] 24.0 mmol/L Normal 21.0-32.0 [facility] Comment on above: Performed By: #### L 501.080 #### [facility] [address] [place], [address] Creatinine [Mass/Vol] 1.15 mg/dL High 0.55-1.02 [facility] Comment on above: Result Comment: The validity of the calculated GFR GFRAA in patients over 70 years has not been determined. Clinical correlation is essential. Performed By: #### L 501.080 #### [facility] [address] [place], [address] ECRCL 48.54 ml/min Normal [facility] Comment on above: Performed By: #### L 501.080 #### [facility] [address] [place], [address] EST GFR - AA 60 mL/min Normal >60 [facility] Comment on above: Result Comment: Afri can [place] GFR Calc Performed By: #### L 501.080 #### [facility] [address] [place], [address] GAP 10 Normal 5-15 [facility] Comment on above: Performed By: #### L 501.080 #### [facility] [address] [place], [address] GFR/1.73 sq M.predicted among non-blacks MDRD (S/P/Bld) [Vol rate/Area] 49 mL/min/{1.73_m2} Low >60 [facility] Comment on above: Result Comment: Non- GFR Calc Performed By: #### L 501.080 #### [facility] [address] [place], [address] Glucose [Mass/Vol] 197 mg/dL High 74-106 [facility] Comment on above: Result Comment: Fast ing Glucose result greater than or equal to 126 mg/dL suggests DIABETES MELLITUS per A.D.A. criteria. Performed By: #### L 501.080 #### [facility] [address] [place], [address] Potassium [Moles/Vol] 3.8 mmol/L Normal 3.5-5.1 [facility] Comment on above: Performed By: #### L 501.080 #### [facility] [address] [place], [address] Sodium [Moles/Vol] 138 mmol/L Normal 136-145 [facility] Comment on above: Performed By: #### L 501.080 #### [facility] [address] [place], [address] Urea nitrogen [Mass/Vol] 23 mg/dL High 7-18 [facility] Comment on above: Performed By: #### L 501.080 #### [facility] [address] [place], [address] Bedside Glucoseon 08-26-2023 FINGERSTICK GLU 188 mg/dL High 74-106 [facility] Comment on above: Result Comment: JEAN GEMENT OF PATIENT CARE PER NURSING PROTOCOL Performed By: #### L 501.080 #### [facility] [address] [place], [address] FINGERSTICK GLU 155 mg/dL High 74-106 [facility] Comment on above: Result Comment: JEAN GEMENT OF PATIENT CARE PER NURSING PROTOCOL Performed By: #### L 501.080 #### [facility] [address] [place], [address] FINGERSTICK GLU 139 mg/dL High 74-106 [facility] Comment on above: Result Comment: JEAN GEMENT OF PATIENT CARE PER NURSING PROTOCOL Performed By: #### L 501.080 ####[facility] [address] [place], [address] FINGERSTICK GLU 160 mg/dL High 74-106 [facility] Comment on above: Result Comment: JEAN GONZALES OF PATIENT CARE PER NURSING PROTOCOL Performed By: #### L 501.4020, L500.2500, L100.0100 #### [facility] [address] [place], [address] Blood Gases by [facility] 024 KADEEM TEST Positive Normal [facility] Comment on above: Performed By: #### L 9000.0800 ####[facility] [address] [place], [address] Base excess Calc (Bld) [Moles/Vol] -1 mmol/L Normal -2 to +2 [facility] Comment on above: Performed By: #### L 9000.0800 ####[facility] [address] [place], [address] Blood Gas Type ART Normal [facility] Comment on above: Performed By: #### L 9000.0800 ####[facility] [address] [place], [address] CO2 [Moles/Vol] 24 mmol/L Normal [facility] Comment on above: Performed By: #### L 9000.0800 ####[facility] [address] [place], [address] FI02 3.0 Normal [facility] Comment on above: Performed By: #### L 9000.0800 ####[facility] [address] [place], [address] HCO3 (Bld) [Moles/Vol] 23.3 mmol/L Normal 22-26 [facility] Comment on above: Performed By: #### L 9000.0800 ####[facility] [address] [place], [address] Mode Not entered Normal [facility] Comment on above: Performed By: #### L 9000.0800 ####[facility] [address] [place], [address] O2 Delivery Dev Cannula Normal [facility] Comment on above: Performed By: #### L 9000.0800 ####[facility] [address] [place], [address] pCO2 32.3 mmHg Low 35-45 [facility] Comment on above: Performed By: #### L 9000.0800 ####[facility] [address] [place], [address] pH (Bld) 7.47 [pH] High 7.35-7.45 [facility] Comment on above: Performed By: #### L 9000.0800 ####[facility] [address] [place], [address] PO2 99 mmHG Normal 75-100 [facility] Comment on above: Performed By: #### L 9000.0800 ####[facility] [address] [place], [address] SITE R Radial Normal [facility] Comment on above: Performed By: #### L 9000.0800 ####[facility] [address] [place], [address] SO2 98 Normal 95-99 [facility] Comment on above: Performed By: #### L 9000.0800 ####[facility] [address] [place], [address] Brain/Head W/WO Contraston 0 08-26-2023 Brain/Head W/WO Contrast [facility] [address] [place] [address] Brain/Head W/WO Contrast MR#: [id number] Acct: [id number] Name: DAVID STREET Rep #: [id number] : 1950 F 73 From: Holger Marquez MD PCP: Dr. Richie Heredia DO Status: ADM PIERCE Study: Brain/Head W/WO Contrast Date of Exam: 4 Exam# [id number] Ordering Dr: Daryl Verduzco MD [id number] STUDY: CT BRAIN WITH AND WITHOUT CONTRAST [...] Daryl Verduzco MD; Dr. Richie Heredia DO Tax Intern: Signed Normal [facility] Echo Completeon 08-26-2023 Echo Complete [facility] [address] [place], [place] [address] [address] Echo Complete 08/27/2331 MR#: [id number] Acct: [id number] Name: DAVID STREET Rep #: [id number] : 1950 73 From: Alberto Williamson MD Attending Dr: Dr. Daryl Verduzco MD Status: AD M IN Ordering Dr: Daryl Verduzco MD Date: 08/26/23 Location: [facility] Sex: F C Admitted: 08/26/23 Reason [...] DO Date Dictated: 08/27/23930 Date Transcribed: 08/27/231739 Tax Intern: Signed Normal [facility] Lactic Acidon 08-26-2023 Lactate [Moles/Vol] 3.4 mmol/L Invalid Interpretation Code 0.4-1.9 [facility] Comment on above: Result Comment: Crit ical Result(s) Called at: 15:12:55 08/26/2023 by: Mi Mccarty. Results read back by same. Performed By: #### L 501.080 #### [facility] Laboratory [address] [place], [address] Lactate [Moles/Vol] 2.5 mmol/L Invalid Interpretation Code 0.4-1.9 [facility] Comment on above: Order Comment: Y Result Comment: Crit ical Result(s) Called at: 06:19:45 08/26/2023 by: Huong Martins to Brianda Bustamante. Results read back by same. Performed By: #### L 503.6005 ####[facility] [address] [place], [address] M100.678on 08-26-2023 M100.678 Normal Reference Range = Negative GeneXpert Instrument, PCR method SARS-CoV-2 (COVID 19) Negative INFLUENZA A Negative INFLUENZA B Negative RSV PCR Negative Normal [facility] Comment on above: Performed By: #### L 501.4020, L500.2500, L100.0100 #### [facility] Laboratory [address] [place], [address] Magnesiumon 08-26-2023 Magnesium [Mass/Vol] 1.4 mg/dL Low 1.6-2.6 [facility] Comment on above: Performed By: #### L 501.080 #### [facility] [address] [place], [address] Phosphoruson 08-26-2023 Phosphate [Mass/Vol] 1.7 mg/dL Low 2.5-4.9 [facility] Comment on above: Performed By: #### L 501.080 #### [facility] [address] [place], [address] Basic Metabolic Profile (BMP )on 08-25-2023 BUN/CRE 12.7 RATIO Normal 10-20 [facility] Comment on above: Performed By: #### L 100.0100, L500.2500 ####[facility] [address] [place], [address] CA,Total 8.7 mg/dL Normal 8.5-10.1 [facility] Comment on above: Performed By: #### L 100.0100, L500.2500 ####[facility] [address] [place], [address] Chloride [Moles/Vol] 100 mmol/L Normal 98-107 [facility] Comment on above: Performed By: #### L 100.0100, L500.2500 ####[facility] [address] [place], [address] CO2 [Moles/Vol] 27.0 mmol/L Normal 21.0-32.0 [facility] Comment on above: Performed By: #### L 100.0100, L500.2500 ####[facility] [address] [place], [address] Creatinine [Mass/Vol] 1.42 mg/dL High 0.55-1.02 [facility] Comment on above: Result Comment: The validity of the calculated GFR GFRAA in patients over 70 years has not been determined. Clinical correlation is essential. Performed By: #### L 100.0100, L500.2500 ####[facility] [address] [place], [address] ECRCL 39.92 ml/min Normal [facility] Comment on above: Performed By: #### L 100.0100, L500.2500 ####[facility] [address] [place], [address] EST GFR - AA 47 mL/min Low >60 [facility] Comment on above: Result Comment: Afri can Burundian GFR Calc Performed By: #### L 100.0100, L500.2500 ####[facility] [address] [place], [address] GAP 8 Normal 5-15 [facility] Comment on above: Performed By: #### L 100.0100, L500.2500 ####[facility] [address] [place], [address] GFR/1.73 sq M.predicted among non-blacks MDRD (S/P/Bld) [Vol rate/Area] 39 mL/min/{1.73_m2} Low >60 [facility] Comment on above: Result Comment: Non- GFR Calc Performed By: #### L 100.0100, L500.2500 ####[facility] [address] [place], [address] Glucose [Mass/Vol] 176 mg/dL High 74-106 [facility] Comment on above: Result Comment: Fast ing Glucose result greater than or equal to 126 mg/dL suggests DIABETES MELLITUS per A.D.A. criteria. Performed By: #### L 100.0100, L500.2500 ####[facility] [address] [place], [address] Potassium [Moles/Vol] 3.6 mmol/L Normal 3.5-5.1 [facility] Comment on above: Performed By: #### L 100.0100, L500.2500 ####[facility] [address] [place], [address] Sodium [Moles/Vol] 135 mmol/L Low 136-145 [facility] Comment on above: Performed By: #### L 100.0100, L500.2500 ####[facility] [address] [place], [address] Urea nitrogen [Mass/Vol] 18 mg/dL Normal 7-18 [facility] Comment on above: Performed By: #### L 100.0100, L500.2500 ####[facility] [address] [place], [address] Bedside Glucoseon 08-25-2023 FINGERSTICK GLU 181 mg/dL High 74-106 [facility] Comment on above: Result Comment: JEAN GEMENT OF PATIENT CARE PER NURSING PROTOCOL Performed By: #### L 501.4020, L500.2500, L100.0100 #### [facility] Laboratory [address] [place], [address] FINGERSTICK GLU 189 mg/dL High 74-106 [facility] Comment on above: Result Comment: JEAN GEMENT OF PATIENT CARE PER NURSING PROTOCOL Performed By: #### L 501.080 #### [facility] Laboratory [address] [place], [address] FINGERSTICK GLU 107 mg/dL High 74-106 [facility] Comment on above: Result Comment: JEAN GONZALES OF PATIENT CARE PER NURSING PROTOCOL Performed By: #### L 501.080 #### [facility] [address] [place], [address] [facility] Positive Normal [facility] Comment on above: Performed By: #### L 9000.0800 ####[facility] [address] [place], [address] Base excess Calc (Bld) [Moles/Vol] 3 mmol/L High -2 to +2 [facility] Comment on above: Performed By: #### L 9000.0800 ####[facility] [address] [place], [address] Blood Gas Type ART Normal [facility] Comment on above: Performed By: #### L 9000.0800 ####[facility] [address] [place], [address] CO2 [Moles/Vol] 28 mmol/L Normal [facility] Comment on above: Performed By: #### L 9000.0800 ####[facility] [address] [place], [address] FI02 4.0 Normal [facility] Comment on above: Performed By: #### L 9000.0800 ####[facility] [address] [place], [address] HCO3 (Bld) [Moles/Vol] 26.9 mmol/L High 22-26 [facility] Comment on above: Performed By: #### L 9000.0800 ####[facility] [address] [place], [address] Mode Not entered Normal [facility] Comment on above: Performed By: #### L 9000.0800 ####[facility] [address] [place], [address] O2 Delivery Dev Cannula Normal [facility] Comment on above: Performed By: #### L 0.0800 ####[facility] [address] [place], [address] pCO2 40.3 mmHg Normal 35-45 [facility] Comment on above: Performed By: #### L 0.0800 ####[facility] [address] [place], [address] pH (Bld) 7.43 [pH] Normal 7.35-7.45 [facility] Comment on above: Performed By: #### L 0.0800 ####[facility] [address] [place], [address] PO2 90 mmHG Normal 75-100 [facility] Comment on above: Performed By: #### L 0.0800 ####[facility] [address] [place], [address] SITE R Brach Normal [facility] Comment on above: Performed By: #### L 0.0800 ####[facility] [address] [place], [address] SO2 97 Normal 95-99 [facility] Comment on above: Performed By: #### L 0.0800 ####[facility] [address] [place], [address] CBC W/Diff, Automatedon 07-0 3-2024 Absolute Lymph 0.90 X10 3/uL Normal 0.83-4.51 [facility] Comment on above: Performed By: #### L 100.0100, L500.2500 ####[facility] [address] [place], [address] Absolute Neut 12.4 X10 3/uL High 2.0-7.7 [facility] Comment on above: Performed By: #### L 100.0100, L500.2500 ####[facility] [address] [place], [address] Basophils/100 WBC (Bld) 0.5 % Normal 0-1 [facility] Comment on above: Performed By: #### L 100.0100, L500.2500 ####[facility] [address] [place], [address] Eosinophils/100 WBC (Bld) 0.3 % Normal 0-5 [facility] Comment on above: Performed By: #### L 100.0100, L500.2500 ####[facility] [address] [place], [address] Erythrocyte distribution width (RBC) [Ratio] 13.4 % Normal 11.6-14.6 [facility] Comment on above: Performed By: #### L 100.0100, L500.2500 ####[facility] [address] [place], [address] Hematocrit (Bld) [Volume fraction] 40.2 % Normal 37-47 [facility] Comment on above: Performed By: #### L 100.0100, L500.2500 ####[facility] [address] [place], [address] Hemoglobin (Bld) [Mass/Vol] 13.1 g/dL Normal 12.0-15.0 [facility] Comment on above: Performed By: #### L 100.0100, L500.2500 ####[facility] [address] [place], [address] IG% 0.900 Normal 0.0-0.9 [facility] Comment on above: Result Comment: IG% - Immature Granulocytes (promyelocytes, myelocytes and metamyelocytes) > 1% indicates that a LEFT SHIFT is Present. Performed By: #### L 100.0100, L500.2500 ####[facility] [address] [place], [address] Lymphocytes/100 WBC (Bld) 6.3 % Low 19-41 [facility] Comment on above: Performed By: #### L 100.0100, L500.2500 ####[facility] [address] [place], [address] MCH (RBC) [Entitic mass] 31.5 pg Normal 27.0-32.0 [facility] Comment on above: Performed By: #### L 100.0100, L500.2500 ####[facility] [address] [place], [address] MCHC (RBC) [Mass/Vol] 32.6 g/dL Normal 32-36 [facility] Comment on above: Performed By: #### L 100.0100, L500.2500 ####[facility] [address] [place], [address] MCV (RBC) [Entitic vol] 96.6 fL Normal 81-99 [facility] Comment on above: Performed By: #### L 100.0100, L500.2500 ####[facility] [address] [place], [address] Monocytes/100 WBC (Bld) 5.5 % Normal 0-10 [facility] Comment on above: Performed By: #### L 100.0100, L500.2500 ####[facility] [address] [place], [address] Neutrophils/100 WBC (Bld) 86.5 % High 47-70 [facility] Comment on above: Performed By: #### L 100.0100, L500.2500 ####[facility] [address] [place], [address] Nucleated RBC (Bld) [#/Vol] 0 10*3/uL Normal 0-5 [facility] Comment on above: Performed By: #### L 100.0100, L500.2500 ####[facility] [address] [place], [address] Platelet mean volume (Bld) [Entitic vol] 11.1 fL Normal 6.2-12.0 [facility] Comment on above: Performed By: #### L 100.0100, L500.2500 ####[facility] [address] [place], [address] Platelets (Bld) [#/Vol] 266 10*3/uL Normal 150-450 [facility] Comment on above: Performed By: #### L 100.0100, L500.2500 ####[facility] [address] [place], [address] RBC (Bld) [#/Vol] 4.16 10*6/uL Low 4.2-5.4 [facility] Comment on above: Performed By: #### L 100.0100, L500.2500 ####[facility] [address] [place], [address] RDW SD 47.8 fl High 35.1-43.9 [facility] Comment on above: Performed By: #### L 100.0100, L500.2500 ####[facility] [address] [place], [address] WBC (Bld) [#/Vol] 14.3 10*3/uL High 4.4-11.0 [facility] Comment on above: Performed By: #### L 100.0100, L500.2500 ####[facility] [address] [place], [address] Emergency Department Summary on 08-25-2023 Emergency Department Summary [facility] Medical Records Department [address] [place] [address] Emergency Department Summary 08/25/23 MR#: [id number] Acct: [id number] Name: DAVID STREET Rep #: [id number] : 1950 73 From: Coy Syed MD [...] on the left hip where she landed. [facility] Medical History Hypercholesteremia Peripheral vascular disease [...] hematuria Muscu (more content not included)... Normal [facility] H AND P Exam - Hospitaliston 08-25-2023 H&P Exam - Hospitalist [facility] Medical Records Department [address] [place] [address] H P Exam - Hospitalist 08/25/23 0745 MR#: [id number] Acct: [id number] Name: DAVID STREET Rep #: [id number] : 1950 73 From: Maximilian Kitchen MD PCP: Dr. Richie Heredia, DO Status:ADM PIERCE Location: [facility] [id number] HPI - General General Date of Admission: [...] to regular nursing floor for further management [facility] Medical History Hypercholesteremia Peripheral vascular disease Palpitations [...] focal num (more content not included)... Normal [facility] Lactic Acidon 08-25-2023 Lactate [Moles/Vol] 3.2 mmol/L Invalid Interpretation Code 0.4-1.9 [facility] Comment on above: Result Comment: Crit ical Result(s) Called at: 11:00:25 08/25/2023 by: OTF COFFEY TO WENCESLAO FRYE. Results read back by same. Performed By: #### L 503.6005 ####[facility] [address] [place], [address] Lactate [Moles/Vol] 2.0 mmol/L Normal 0.4-1.9 [facility] Comment on above: Order Comment: 'TROP ' Serial specimen #1, #2 or #3: 1 Result Comment: Crit ical Result(s) Called at: 06:55:28 08/25/2023 by: YARY FLORIAN to Steve Ward. Results read back by same. Performed By: #### L 501.4020, L500.2500, L100.0100 #### [facility] Laboratory [address] [place], [address] M100.678on 08-25-2023 M100.678 SARS-CoV-2 (COVID 19) Negative INFLUENZA A Negative INFLUENZA B Negative RSV PCR Negative Normal [facility] Comment on above: Performed By: #### L 400.0001, M100.678 ####[facility] [address] [place], [address] Pelvis 1 or 2 Viewson 2023 Pelvis 1 or 2 Views [facility] [address] [place] [address] Pelvis 1 or 2 Views MR#: [id number] Acct: [id number] Name: DAVID STREET Rep #: [id number] : 1950 F 73 From: Richie Chandler PCP: Dr. Richie Heredia, DO Status: DIS IN Study: Pelvis 1 or 2 Views Date of Exam: 08/25/23 Exam# [id number] Ordering Dr: Coy Syed MD [id number] EXAM: XR PELVIS, 1 OR 2 VIEWS [...] Coy Syed MD; Dr. Richie Heredia DO Tax Intern: Signed Normal [facility] RESPIRATORY PANEL MOLECULARo n 08-25-2023 RP PANEL ADENOVIRUS Not Detected INFLUENZA A Not Detected INFLUENZA A (SUBTYPE H1) Not Detected INFLUENZA A (SUBTYPE H3) Not Detected INFLUENZA B Not Detected HUMAN METAPHNEUMO Not Detected PARAINFLUENZA 1 Not Detected PARAINFLUENZA 2 Not Detected PARAINFLUENZA 3 Not Detected PARAINFLUENZA 4 Not Detected RHINOVIRUS Not Detected RSV A Not Detected RSV B Not Detected Normal [facility] Comment on above: Performed By: #### L 501.4020, L500.2500, L100.0100 #### [facility] [address] [facility] [place], [address] Ribs Uni Min 3V w/PA Cheston 08-25-2023 Ribs Uni Min 3V w/PA Chest [facility] [address] [place] [address] Ribs Uni Min 3V w/PA Chest MR#: [id number] Acct: [id number] Name: DAVID STREET Rep #: [id number] : 1950 F 73 From: Maximo Chandler PCP: Dr. Richie Heredia DO Status: REG ER Study: Ribs Uni Min 3V w/PA Chest Date of Exam: 08/24 Exam# [id number] Ordering Dr: Coy Syed MD [id number] INDICATION: fall/injury EXAMINATION/TECHNIQU E: X-RAY - XR [...] Coy Syed MD; Dr. Richie Heredia DO Tax Intern: Signed Normal [facility] Urinalysis, Completeon 08-24 BACTERIA 0 SEEN Normal None Seen [facility] Comment on above: Order Comment: BLADD ER TAP Performed By: #### L 400.0001, M1. ####[facility] [address] [place], [address] EPI,SQUAMOUS 0 SEEN Normal 5-10 [facility] Comment on above: Order Comment: BLADD ER TAP Performed By: #### L 400.0001, M1 ####[facility] [address] [place], [address] Mucus Ql (Urine sed) 0 SEEN Normal [facility] Comment on above: Order Comment: BLADD ER TAP Performed By: #### L 400.0001, M100.678 ####[facility] [address] [place], [address] RBC 0 SEEN Normal 0-5 [facility] Comment on above: Order Comment: BLADD ER TAP Performed By: #### L 400.0001, M100.678 ####[facility] [address] [place], [address] WBC 0 SEEN Normal 0-5 [facility] Comment on above: Order Comment: BLADD ER TAP Performed By: #### L 400.0001, M100.678 ####[facility] [address] [place], [address] CREATININE FINGERSTICKon 4 CREATININE WB < 1.0 Normal 0.55-1.02 [facility] Comment on above: Performed By: #### L 9100.0210, L9100.0220 ####[facility] [address] [place], [address] EGFR FINGERSTICKon 4 EGFR WB > 60.0 Normal >60 [facility] Comment on above: Performed By: #### L 9100.0210, L9100.0220 ####[facility] [address] [place], [address] FT3on 08-12-2023 Free T3 [Mass/Vol] 2.22 pg/mL Low 2.30-4.00 [facility] [place] Comment on above: Performed By: #### T SH, FT3, FT4 #### [place] [address] [address] FT4on 08-12-2023 Free T4 [Mass/Vol] 0.92 ng/dL Normal 0.76-1.46 [facility] Comment on above: Performed By: #### T SH, FT3, FT4 #### [place] [address] [address] LABORATORYOrdered By: SYSTEM SYSTEM on 08-12-2023 Free T3 [Mass/Vol] 2.22 pg/mL Low 2.30 - 4. 00 pg/mL AO ADM SS Free T4 [Mass/Vol] 0.92 ng/dL Normal 0.76 - 1. 46 ng/dL AO ADM SS TSH Qn 4.34 m[IU]/L High 0.36 - 3.74 mcIU/mL AO ADM SS TSHon 08-12-2023 TSH Qn 4.34 m[IU]/L High 0.36-3.74 [facility] [place] Comment on above: Performed By: #### T SH, FT3, FT4 #### [place] [address] [place], [place] [address] Venous Blood Gason 4 Blood Gas Type ANDRÉS [facility] Comment on above: Performed By: #### L 9000.0810 ####[facility] [address] [place], [address] CO2 [Moles/Vol] 37 mmol/L High 23-33 [facility] Comment on above: Performed By: #### L 9000.0810 ####[facility] [address] [place], [address] FI02 2.0 [facility] Comment on above: Performed By: #### L 9000.0810 ####[facility] [address] [place], [address] HCO3 (Bld) [Moles/Vol] 35 mmol/L High 22-[address] [facility] Comment on above: Performed By: #### L 9000.0810 ####[facility] [address] [place], [address] O2 Delivery Dev Cannula Normal [facility] Comment on above: Performed By: #### L 9000.0810 ####[facility] [address] [place], [address] SITE Not entered [facility] Comment on above: Performed By: #### L 9000.0810 ####[facility] [address] [place], [place], [address] VBG BE 10 mmol/L High -1.0-3.5 [facility] Comment on above: Performed By: #### L 9000.0810 ####[facility] [address] [place], [address] VBG pCO2 59.8 mmHg High 41-51 [facility] Comment on above: Performed By: #### L 9000.0810 ####[facility] [address] [place], [address] VBG pH 7.38 Normal 7.32-7.42 [facility] Comment on above: Performed By: #### L 9000.0810 ####[facility] [address] [place], [address] VBG PO2 45 mmHg High 25-40 [facility] Comment on above: Performed By: #### L 9000.0810 ####[facility] [address] [place], [address] VBG SO2 78 High 50-70 [facility] Comment on above: Performed By: #### L 9000.0810 ####[facility] [address] [place], [address] 12 Lead EKGon 07-26-2023 12 Lead EKG [facility] [address] [place] [address] 12 Lead EKG 07/26/23 1655 MR#: [id number] Acct: [id number] Name: DAVID STREET Rep #: [id number] : 1950 73 From: Alberto Williamson MD [...] ECG Confirmed by GREER BRAGG, ALBERTO ([id number]), purchasing expeditor JASVIR NESBITT ([id number]) on 07/27/2023 2:13:58 PM Referred By: ERROL SURESH Confirmed By:ALBERTO WILLIAMSON MD 07/27/23 1414 Date Alberto Williamson MD CC: Dr. Hunter Ryan MD; Dr. Richie Heredia, DO Signed Normal [facility] Ammoniaon 07-26-2023 Ammonia (P) [Moles/Vol] 19.0 umol/L Normal -32 [facility] Comment on above: Performed By: #### L 501.4020, L100.0100, L500.4050, L503.5510 ####[facility] [address] [place], [address] CBC W/Diff, Automatedon 06- Absolute Lymph 2.19 X10 3/uL Normal 0.83-4.51 [facility] Comment on above: Performed By: #### L 501.4020, L100.0100, L500.4050, L503.5510 ####[facility] [address] [place], [address] Absolute Neut 4.8 X10 3/uL Normal 2.0-7.7 [facility] Comment on above: Performed By: #### L 501.4020, L100.0100, L500.4050, L503.5510 ####[facility] [address] [place], [address] Basophils/100 WBC (Bld) 0.6 % Normal 0-1 [facility] Comment on above: Performed By: #### L 501.4020, L100.0100, L500.4050, L503.5510 ####[facility] [address] [place], [address] Eosinophils/100 WBC (Bld) 2.2 % Normal 0-5 [facility] Comment on above: Performed By: #### L 501.4020, L100.0100, L500.4050, L503.5510 ####[facility] [address] [place], [address] Erythrocyte distribution width (RBC) [Ratio] 13.3 % Normal 11.6-14.6 [facility] Comment on above: Performed By: #### L 501.4020, L100.0100, L500.4050, L503.5510 ####[facility] [address] [place], [address] Hematocrit (Bld) [Volume fraction] 41.9 % Normal 37-47 [facility] Comment on above: Performed By: #### L 501.4020, L100.0100, L500.4050, L503.5510 ####[facility] [address] [place], [address] Hemoglobin (Bld) [Mass/Vol] 13.2 g/dL Normal 12.0-15.0 [facility] Comment on above: Performed By: #### L 501.4020, L100.0100, L500.4050, L503.5510 ####[facility] [address] [place], [address] IG% 0.500 Normal 0.0-0.9 [facility] Comment on above: Result Comment: IG% - Immature Granulocytes (promyelocytes, myelocytes and metamyelocytes) > 1% indicates that a LEFT SHIFT is Present. Performed By: #### L 501.4020, L100.0100, L500.4050, L503.5510 ####[facility] [address] [place], [address] Lymphocytes/100 WBC (Bld) 28.4 % Normal 19-41 [facility] Comment on above: Performed By: #### L 501.4020, L100.0100, L500.4050, L503.5510 ####[facility] [address] [place], [address] MCH (RBC) [Entitic mass] 31.4 pg Normal 27.0-32.0 [facility] Comment on above: Performed By: #### L 501.4020, L100.0100, L500.4050, L503.5510 ####[facility] [address] [place], [address] MCHC (RBC) [Mass/Vol] 31.5 g/dL Low 32-36 [facility] Comment on above: Performed By: #### L 501.4020, L100.0100, L500.4050, L503.5510 ####[facility] [address] [place], [address] MCV (RBC) [Entitic vol] 99.8 fL High 81-99 [facility] Comment on above: Performed By: #### L 501.4020, L100.0100, L500.4050, L503.5510 ####[facility] [address] [place], [address] Monocytes/100 WBC (Bld) 6.6 % Normal 0-10 [facility] Comment on above: Performed By: #### L 501.4020, L100.0100, L500.4050, L503.5510 ####[facility] [address] [place], [address] Neutrophils/100 WBC (Bld) 61.7 % Normal 47-70 [facility] Comment on above: Performed By: #### L 501.4020, L100.0100, L500.4050, L503.5510 ####[facility] [address] [place], [address] Nucleated RBC (Bld) [#/Vol] 0 10*3/uL Normal 0-5 [facility] Comment on above: Performed By: #### L 501.4020, L100.0100, L500.4050, L503.5510 ####[facility] [address] [place], [address] Platelet mean volume (Bld) [Entitic vol] 11.6 fL Normal 6.2-12.0 [facility] Comment on above: Performed By: #### L 501.4020, L100.0100, L500.4050, L503.5510 ####[facility] [address] [place], [address] Platelets (Bld) [#/Vol] 312 10*3/uL Normal 150-450 [facility] Comment on above: Performed By: #### L 501.4020, L100.0100, L500.4050, L503.5510 ####[facility] [address] [place], [address] RBC (Bld) [#/Vol] 4.20 10*6/uL Normal 4.2-5.4 [facility] Comment on above: Performed By: #### L 501.4020, L100.0100, L500.4050, L503.5510 ####[facility] [address] [place], [address] RDW SD 48.7 fl High 35.1-43.9 [facility] Comment on above: Performed By: #### L 501.4020, L100.0100, L500.4050, L503.5510 ####[facility] [address] [place], [address] WBC (Bld) [#/Vol] 7.7 10*3/uL Normal 4.4-11.0 [facility] Comment on above: Performed By: #### L 501.4020, L100.0100, L500.4050, L503.5510 ####[facility] [address] [place], [address] Chest 1 View (Portable)on Chest 1 View (Portable) [facility] Imaging Services [address] [place] [address] Chest 1 View (Portable) MR#: [id number] Acct: [id number] Name: DAVID STREET Rep #: [id number] : 1950 F 73 From: Yann Tsang DO PCP: Dr. Richie Heredia DO Status: PRE ER Study: Chest 1 View (Portable) Date of Exam: 07/26/23 Exam# [id number] Ordering Dr: Hunter Ryan MD [id number] INDICATION: shortness of breath EXAMINATION/TECHNIQU E: X-RAY [...] Hunter Ryan MD; Dr. Richie Heredia DO Tax Intern: Signed Normal [facility] Comprehensive Metabolic Prof ilon 07-26-2023 Albumin [Mass/Vol] 3.3 g/dL Normal 3.2-5.0 [facility] Comment on above: Order Comment: 'TROP ' Serial specimen #1, #2 or #3: 1 Performed By: #### L 501.4020, L100.0100, L500.4050, L503.5510 ####[facility] [address] [place], [address] Albumin/Globulin [Mass ratio] 0.9 {ratio} Normal 0.9-2.4 [facility] Comment on above: Order Comment: 'TROP ' Serial specimen #1, #2 or #3: 1 Performed By: #### L 501.4020, L100.0100, L500.4050, L503.5510 ####[facility] [address] [place], [address] ALK P 144 U/L High 45-117 [facility] Comment on above: Order Comment: 'TROP ' Serial specimen #1, #2 or #3: 1 Performed By: #### L 501.4020, L100.0100, L500.4050, L503.5510 ####[facility] [address] [place], [address] ALT [Catalytic activity/Vol] 21 U/L Normal 13-56 [facility] Comment on above: Order Comment: 'TROP ' Serial specimen #1, #2 or #3: 1 Performed By: #### L 501.4020, L100.0100, L500.4050, L503.5510 ####[facility] [address] [place], [address] AST [Catalytic activity/Vol] 18 U/L Normal 15-37 [facility] Comment on above: Order Comment: 'TROP ' Serial specimen #1, #2 or #3: 1 Performed By: #### L 501.4020, L100.0100, L500.4050, L503.5510 ####[facility] [address] [place], [address] Bilirubin [Mass/Vol] 0.20 mg/dL Normal 0.20-1.00 [facility] Comment on above: Order Comment: 'TROP ' Serial specimen #1, #2 or #3: 1 Result Comment: For patients on eltrombopag therapy, use of Dimension [place] TBIL is not recommended. Performed By: #### L 501.4020, L100.0100, L500.4050, L503.5510 ####[facility] [address] [place], [address] BUN/CRE 21.0 RATIO High 10-20 [facility] Comment on above: Order Comment: 'TROP ' Serial specimen #1, #2 or #3: 1 Performed By: #### L 501.4020, L100.0100, L500.4050, L503.5510 ####[facility] [address] [place], [address] CA,Total 8.8 mg/dL Normal 8.5-10.1 [facility] Comment on above: Order Comment: 'TROP ' Serial specimen #1, #2 or #3: 1 Performed By: #### L 501.4020, L100.0100, L500.4050, L503.5510 ####[facility] [address] [place], [address] Chloride [Moles/Vol] 104 mmol/L Normal 98-107 [facility] Comment on above: Order Comment: 'TROP ' Serial specimen #1, #2 or #3: 1 Performed By: #### L 501.4020, L100.0100, L500.4050, L503.5510 ####[facility] [address] [place], [address] CO2 [Moles/Vol] 32.0 mmol/L Normal 21.0-32.0 [facility] Comment on above: Order Comment: 'TROP ' Serial specimen #1, #2 or #3: 1 Performed By: #### L 501.4020, L100.0100, L500.4050, L503.5510 ####[facility] [address] [place], [address] Creatinine [Mass/Vol] 1.05 mg/dL High 0.55-1.02 [facility] Comment on above: Order Comment: 'TROP ' Serial specimen #1, #2 or #3: 1 Result Comment: The validity of the calculated GFR GFRAA in patients over 70 years has not been determined. Clinical correlation is essential. Performed By: #### L 501.4020, L100.0100, L500.4050, L503.5510 ####[facility] [address] [place], [address] ECRCL 54.79 ml/min Normal [facility] Comment on above: Order Comment: 'TROP ' Serial specimen #1, #2 or #3: 1 Performed By: #### L 501.4020, L100.0100, L500.4050, L503.5510 ####[facility] [address] [place], [address] EST GFR - AA 66 mL/min Normal >60 [facility] Comment on above: Order Comment: 'TROP ' Serial specimen #1, #2 or #3: 1 Result Comment: Afri can [place] GFR Calc Performed By: #### L 501.4020, L100.0100, L500.4050, L503.5510 ####[facility] [address] [place], [address] GAP 5 Normal 5-15 [facility] Comment on above: Order Comment: 'TROP ' Serial specimen #1, #2 or #3: 1 Performed By: #### L 501.4020, L100.0100, L500.4050, L503.5510 ####[facility] [address] [place], [address] GFR/1.73 sq M.predicted among non-blacks MDRD (S/P/Bld) [Vol rate/Area] 55 mL/min/{1.73_m2} Low >60 [facility] Comment on above: Order Comment: 'TROP ' Serial specimen #1, #2 or #3: 1 Result Comment: Non- GFR Calc Performed By: #### L 501.4020, L100.0100, L500.4050, L503.5510 ####[facility] [address] [place], [address] Globulin (S) [Mass/Vol] 3.5 g/dL Normal 2.2-4.2 [facility] Comment on above: Order Comment: 'TROP ' Serial specimen #1, #2 or #3: 1 Performed By: #### L 501.4020, L100.0100, L500.4050, L503.5510 ####[facility] [address] [place], [address] Glucose [Mass/Vol] 95 mg/dL Normal 74-106 [facility] Comment on above: Order Comment: 'TROP ' Serial specimen #1, #2 or #3: 1 Performed By: #### L 501.4020, L100.0100, L500.4050, L503.5510 ####[facility] [address] [place], [address] Potassium [Moles/Vol] 3.7 mmol/L Normal 3.5-5.1 [facility] Comment on above: Order Comment: 'TROP ' Serial specimen #1, #2 or #3: 1 Performed By: #### L 501.4020, L100.0100, L500.4050, L503.5510 ####[facility] [address] [place], [address] Sodium [Moles/Vol] 141 mmol/L Normal 136-145 [facility] Comment on above: Order Comment: 'TROP ' Serial specimen #1, #2 or #3: 1 Performed By: #### L 501.4020, L100.0100, L500.4050, L503.5510 ####[facility] [address] [place], [address] T PROT 6.8 g/dL Normal 6.4-8.2 [facility] Comment on above: Order Comment: 'TROP ' Serial specimen #1, #2 or #3: 1 Performed By: #### L 501.4020, L100.0100, L500.4050, L503.5510 ####[facility] [address] [place], [address] Urea nitrogen [Mass/Vol] 22 mg/dL High 7-18 [facility] Comment on above: Order Comment: 'TROP ' Serial specimen #1, #2 or #3: 1 Performed By: #### L 501.4020, L100.0100, L500.4050, L503.5510 ####[facility] [address] [facility] [place], [address] Emergency Department Summary on 07-26-2023 Emergency Department Summary [facility] Medical Records Department [address] [place] [address] Emergency Department Summary 07/26/23 MR#: [id number] Acct: [id number] Name: DAVID STREET Rep #: [id number] : 1950 73 From: Hunter Ryan MD PCP: Dr. Richie Heredia, DO Status:[facility] ER Location: ED HPI History of Present [...] wanted to do was sleep all day. [facility] Medical History Hypercholesteremia Peripheral vascular disease [...] auscultation bilaterally. (more content not included)... Normal [facility] L501.4020on 06-03-2024 TROPONIN-I HS 9 pg/mL Normal 3.0-54.0 [facility] Comment on above: Order Comment: 'TROP ' Serial specimen #1, #2 or #3: 1 Result Comment: Bernardo feng Note: New Test Units and Gender Specific Reference Ranges. For more information see Policy Stat Procedure [place] High Sensitivity Troponin (TNIH) and attachments. Performed By: #### L 501.4020, L100.0100, L500.4050, L503.5510 ####[facility] [address] [place], [address] Urinalysis, Completeon 07-25 EPI,SQUAMOUS 0-5 SEEN Normal 5-10 [facility] Comment on above: Order Comment: AUDREY TER SPECIMEN Performed By: #### L 501.080 #### [facility] Laboratory [address] [place], [address] WBC 0-5 SEEN Normal 0-5 [facility] Comment on above: Order Comment: AUDREY TER SPECIMEN Performed By: #### L 501.080 #### [facility] [address] [place], [address] YEAST 2+ /hpf Normal None Seen [facility] Comment on above: Order Comment: AUDREY TER SPECIMEN Performed By: #### L 501.080 #### [facility] [address] [place], [address] BACTERIA 0 SEEN Normal None Seen [facility] Comment on above: Order Comment: AUDREY TER SPECIMEN Performed By: #### L 501.080 #### [facility] [address] [place], [address] Mucus Ql (Urine sed) 0 SEEN Normal [facility] Comment on above: Order Comment: AUDREY TER SPECIMEN Performed By: #### L 501.080 #### [facility] [address] [place], [address] RBC 0 SEEN Normal 0-5 [facility] Comment on above: Order Comment: AUDREY [facility] SPECIMEN Performed By: #### L 501.080 #### [facility] Laboratory [address] [place], [place], [id number] Basophil percentageOrdered B y: Richie Heredia on 04-20-2023 Bilirubin [Mass/Vol] 0.40 mg/dL 0.20-1.00 [facility] Comment on above: For patients on eltr ombopag therapy, use of Dimension [place] TBIL is not recommended. Chloride [Moles/Vol] 106 mmol/L 98-107 [facility] Cholesterol [Mass/Vol] 191 mg/dL <[address] [facility] Comment on above: <200 mg/dL Desirable 200-240 mg/dL Borderline >240 mg/dL High Risk Glucose [Mass/Vol] 130 mg/dL 74-106 [facility] Comment on above: Fasting Glucose resu lt greater than or equal to 126 mg/dL suggests DIABETES MELLITUS per A.D.A. criteria. Hemoglobin (Bld) [Mass/Vol] 13.6 g/dL 12.0-15.0 [facility] Potassium [Moles/Vol] 4.4 mmol/L 3.5-5.1 [facility] Protein [Mass/Vol] 6.9 g/dL 6.4-8.2 [facility] Sodium [Moles/Vol] 139 mmol/L 136-145 [facility] Triglyceride [Mass/Vol] 114 mg/dL <199 [facility] Comment on above: The drugs N-Acetylcy steine and Metamizole may falsely depress this assay.Serum Triglycerides Reference Interval Normal <150 mg/dL Borderline high 150 - 199 mg/dL High 200 - 499 mg/dL Very High > or = 500 mg/dL WBC (Bld) [#/Vol] 8.1 10*3/uL 4.4-11.0 [facility] Determination of erythrocyte mean corpuscular volume (MCV)Ordered By: Richie Heredia on 04-20-2023 MCV (RBC) [Entitic vol] 96.0 fL 81-99 [facility] Erythrocyte distribution wid th ratioOrdered By: Richie Heredia on 04-20-2023 Erythrocyte distribution width (RBC) [Ratio] 14.0 % 11.6-14.6 [facility] Erythrocyte distribution wid th standard deviationOrdered By: Richie Heredia on 04-20-2023 Erythrocyte distribution width (RBC) [Entitic vol] 49.8 fL 35.1-43.9 [facility] Hematocrit Auto (Bld) [Volum e fraction]Ordered By: Richie Heredia on 04-20-2023 Hematocrit (Bld) [Volume fraction] 43.7 % 37-47 [facility] Laboratory - Chemistry and C hemistry - challengeOrdered By: Richie Heredia on 04-20-2023 Albumin/Globulin [Mass ratio] 1.0 {ratio} 0.9-2.4 [facility] ALP [Catalytic activity/Vol] 102 U/L 45-117 [facility] ALT [Catalytic activity/Vol] 14 U/L 13-56 [facility] Cholesterol in HDL [Mass/Vol] 46 mg/dL >40 [facility] Comment on above: The drugs N-Acetylcy steine and Metamizole may falsely depress this assay. Reference Range HDL <40 mg/dL Low HDL Cholesterol HDL >or= 60 mg/dL High HDL Cholesterol Cholesterol in LDL [Mass/Vol] 122 mg/dL 0-130 [facility] CO2 [Moles/Vol] 32.0 mmol/L 21.0-32.0 [facility] Cobalamin (Vitamin B12) [Mass/Vol] 655 pg/mL 211-911 [facility] Globulin (S) [Mass/Vol] 3.5 g/dL 2.2-4.2 [facility] Natriuretic peptide B (Bld) [Mass/Vol] 106.6 pg/mL 0-100 [facility] Urea nitrogen/Creatinine [Mass ratio] 25.9 mg/mg 10-20 [facility] Laboratory - Hematology and Cell countsOrdered By: Richie Heredia on 04-20-2023 MCH (RBC) [Entitic mass] 29.9 pg 27.0-32.0 [facility] MCHC (RBC) [Mass/Vol] 31.1 g/dL 32-36 [facility] Platelet mean volume (Bld) [Entitic vol] 11.5 fL 6.2-12.0 [facility] Platelets (Bld) [#/Vol] 320 10*3/uL 150-450 [facility] No Panel InformationOrdered By: Richie Heredia on 04-20-2023 Estimated GFR (MDRD) Amer 64 mL/min >60 [facility] Comment on above: GFR Calc Estimated GFR (MDRD) Non-Af Amer 53 mL/min >60 [facility] Comment on above: Non- GFR Calc Folate 3.20 ng/mL 3.1-55.4 [facility] Urine Microalbumin/Creatinine Ratio 8.3 mg/g CRE <30 [facility] Vitamin D 25-Hydroxy 26.1 ng/mL [facility] Comment on above: Vitamin D 25(OH) Sta tus Range Deficiency <20 ng/mL (50nmol/L) Insufficiency 20 - 30 ng/mL (50 - 75 nmol/L) Sufficiency 30 - 100 ng/mL (75 - 250 nmol/L) Toxicity >100 ng/mL (>250 nmol/L) VLDL Cholesterol 23 mg/dL 5-40 [facility] RBC Auto (Bld) [#/Vol]Ordere d By: Richie Heredia on 04-20-2023 RBC (Bld) [#/Vol] 4.55 10*6/uL 4.2-5.4 [facility] Serum or plasma calcium brittny urement (mass/volume)Ordered By: Richie Heredia on 04-20-2023 Calcium [Mass/Vol] 9.6 mg/dL 8.5-10.1 [facility] Serum or plasma creatinine m easurement (mass/volume)Ordered By: Richie Heredia on 04-20-2023 Creatinine [Mass/Vol] 1.08 mg/dL 0.55-1.02 [facility] Comment on above: The validity of the calculated GFR & GFRAA in patients over 70 years has not been determined. Clinical correlation is essential. Serum or plasma thyroid stim ulating hormone (TSH) measurement (units/volume)Ordered By: Richie Heredia on 04-20-2023 TSH Qn 3.70 uIU/mL 0.358-3.74 [facility] Serum or plasma urea nitroge n measurement (mass/volume)Ordered By: Richie Heredia on 04-20-2023 Urea nitrogen [Mass/Vol] 28 mg/dL 7-18 [facility] Thin prep Papanicolaou smear with manual screeningOrdered By: Richie Heredia on 04-20-2023 Thin prep Papanicolaou smear with manual screening 3.4 g/dL 3.2-5.0 [facility] Thin prep Papanicolaou smear with manual screening 10 U/L 15-37 [facility] Thin prep Papanicolaou smear with manual screening 1 5-15 [facility] Thin prep Papanicolaou smear with manual screening 10.4 mg/L NO RANGE EST. [facility] Thin prep Papanicolaou smear with manual screening 0.92 ng/dL 0.76-1.46 [facility] Urine creatinine measurement (mass/volume)Ordered By: Richie Heredia on 04-20-2023 Creatinine (U) [Mass/Vol] 125.00 mg/dL NO RANGE EST. [facility] Whole blood hemoglobin A1c/t otal hemoglobin ratio (mass fraction)Ordered By: Richie Heredia on 04-20-2023 HbA1c (Bld) [Mass fraction] 5.8 % 3.8-5.6 [facility] Comment on above: Normal < 5.7 % Predi abetic 5.7 - 6.4 % Diabetic >or= 6.5 % Please note range changes. .Urinalysis Microscopic (AO) on 03-18-2023 UA Bacteria 4+ /hpf Abnormal [facility] ([place]) Comment on above: Performed By: #### U A, UAMICAO #### [address] [address] UA RBC 5-10 Abnormal None Seen [facility] ([place]) Comment on above: Performed By: #### U A, UAMICAO #### [address] [address] UA Squam Epithelial 15-25 Abnormal None Seen [facility] ([place]) Comment on above: Performed By: #### U A, UAMICAO #### [address] [address] UA WBC LOADED Abnormal None Seen [facility] ([place]) Comment on above: Performed By: #### U A, UAMICAO #### [address] [place] [address] LABORATORYOrdered By: Oxana Ball on 03-18-2023 Appearance [...] levoFLOXacin TWYLA [Susc] >100,000 cfu/ml Escherichia coli [facility] Work Phone: UAon 03-18-2023 Color (U) Yellow Normal [facility] ([place]) Comment on above: Performed By: #### U A, UAMICAO #### [address] [address] Glucose (U) [Mass/Vol] 500 mg/dL Abnormal Negative [facility] ([place]) Comment on above: Performed By: #### U A, UAMICAO #### [address] [address] Ketones Ql (U) Negative Normal Negative [facility] ([place]) Comment on above: Performed By: #### U A, UAMICAO #### [address] [address] UA Appear Slightly Cloudy Abnormal Clear [facility] ([place]) Comment on above: Performed By: #### U A, UAMICAO #### [address] [address] UA Blood Trace Abnormal Negative [facility] ([place]) Comment on above: Performed By: #### U A, UAMICAO #### [address] [address] UA Leuk Est Large Abnormal Negative [facility] ([place]) Comment on above: Performed By: #### U A, UAMICAO #### [address] [address] UA Nitrite Negative Normal Negative [facility] ([place]) Comment on above: Performed By: #### U A, UAMICAO #### [address] [address] UA pH 6.0 Normal 5.0 - 8.0 [facility] ([place]) Comment on above: Performed By: #### U A, UAMICAO #### [address] [address] UA Protein Negative Normal Negative [facility] ([place]) Comment on above: Performed By: #### U A, UAMICAO #### [address] [address] UA Spec Grav 1.015 Normal 1.015-1.025 [facility] ([place]) Comment on above: Performed By: #### U A, UAMICAO #### [facility] [address] [place], [place] [address] UA Specimen Type Not Given Normal [facility] ([place]) Comment on above: Performed By: #### U A, UAMICAO #### [facility] [address] [place], [place] [address] UA Urobilinogen 0.2 E.U./dL Normal 0.2-1.0 [facility] ([place]) Comment on above: Performed By: #### U A, UAMICAO #### [facility] [address] [place], [place] [address] Urobilinogen (U) [Mass/Vol] Negative Normal Negative [facility] ([place]) Comment on above: Performed By: #### U A, UAMICAO #### [id number] [place], [place] [address] levoFLOXacin TWYLA [place]on Escherichia coli Escherichia coli [facility] Work Phone: Absolute lymphocyte countOrd ered By: Maximilian Kitchen on 01-30-2023 Lymphocytes Auto (Unsp spec) [#/Vol] 1.18 10*3/uL 0.83-4.51 [facility] Basophil percentageOrdered B y: Maximilian Kitchen on 01-30-2023 Basophils/100 WBC (Bld) 0.5 % 0-1 [facility] Chloride [Moles/Vol] 113 mmol/L 98-107 [facility] Eosinophils/100 WBC (Bld) 2.1 % 0-5 [facility] Glucose [Mass/Vol] 78 mg/dL 74-106 [facility] Neutrophils (Bld) [#/Vol] 5.6 10*3/uL 2.0-7.7 [facility] Neutrophils/100 WBC (Bld) 73.1 % 47-70 [facility] Potassium [Moles/Vol] 4.2 mmol/L 3.5-5.1 [facility] Sodium [Moles/Vol] 140 mmol/L 136-145 [facility] WBC (Bld) [#/Vol] 7.7 10*3/uL 4.4-11.0 [facility] Blood erythrocytes count (nu mber/volume)Ordered By: Maximilian Kitchen on 01-30-2023 RBC (Bld) [#/Vol] 3.46 10*6/uL 4.2-5.4 [facility] Blood hemoglobin measurement (mass/volume)Ordered By: Maximilian Kitchen on 01-30-2023 Hemoglobin (Bld) [Mass/Vol] 10.5 g/dL 12.0-15.0 [facility] Blood lymphocytes/100 leukoc ytesOrdered By: Maximilian Kitchen on 01-30-2023 Lymphocytes/100 WBC (Bld) 15.4 % 19-41 [facility] Blood monocytes/100 leukocyt esOrdered By: Maximilian Kitchen on 01-30-2023 Monocytes/100 WBC (Bld) 8.5 % 0-10 [facility] Blood platelet mean volumeOr dered By: Maximilian Kitchen on 01-30-2023 Platelet mean volume (Bld) [Entitic vol] 12.6 fL 6.2-12.0 [facility] Determination of erythrocyte mean corpuscular volume (MCV)Ordered By: Maximilian Kitchen on 01-30-2023 MCV (RBC) [Entitic vol] 97.1 fL 81-99 [facility] Glucose Glucometer (dC) [M ass/Vol]Ordered By: Maximilian Kitchen on 01-30-2023 Glucose [Mass/Vol] 81 mg/dL 74-106 [facility] Comment on above: MANAGEMENT OF PATIEN T CARE PER NURSING PROTOCOL Hematocrit Auto (Bld) [Volum e fraction]Ordered By: Maximilian Kitchen on 01-30-2023 Hematocrit (Bld) [Volume fraction] 33.6 % 37-47 [facility] Laboratory - Chemistry and C hemistry - challengeOrdered By: Maximilian Kitchen on 01-30-2023 CO2 [Moles/Vol] 25.0 mmol/L 21.0-32.0 [facility] Urea nitrogen/Creatinine [Mass ratio] 14.7 mg/mg 10-20 [facility] Laboratory - Hematology and Cell countsOrdered By: Maximilian Kitchen on 01-30-2023 Erythrocyte distribution width (RBC) [Entitic vol] 54.1 fL 35.1-43.9 [facility] Erythrocyte distribution width (RBC) [Ratio] 15.3 % 11.6-14.6 [facility] Immature granulocytes/100 WBC (Bld) 0.400 % 0.0-0.9 [facility] Comment on above: IG% - Immature Granu locytes (promyelocytes, myelocytes and metamyelocytes) > 1% indicates that a LEFT SHIFT is Present. MCH (RBC) [Entitic mass] 30.3 pg 27.0-32.0 [facility] Nucleated RBC/100 WBC (Bld) [Ratio] 0 % 0-5 [facility] MCHC Auto (RBC) [Mass/Vol]Or dered By: Maximilian Kitchen on 01-30-2023 MCHC (RBC) [Mass/Vol] 31.3 g/dL 32-36 [facility] No Panel InformationOrdered By: Maximilian Kitchen on 01-30-2023 Estimated Creatinine Clearance Calc 93.51 ml/min [facility] Estimated GFR (MDRD) Amer 110 mL/min >60 [facility] Comment on above: GFR Calc Estimated GFR (MDRD) Non-Af Amer 91 mL/min >60 [facility] Comment on above: Non- GFR Calc Platelets bldOrdered By: Doroteo Kitchen on 01-30-2023 Platelets (Bld) [#/Vol] 168 10*3/uL 150-450 [facility] Serum or plasma calcium brittny urement (mass/volume)Ordered By: Maximilian Kitchen on 01-30-2023 Calcium [Mass/Vol] 8.1 mg/dL 8.5-10.1 [facility] Serum or plasma creatinine m easurement (mass/volume)Ordered By: Maximilian Kitchen on 01-30-2023 Creatinine [Mass/Vol] 0.68 mg/dL 0.55-1.02 [facility] Comment on above: The validity of the calculated GFR & GFRAA in patients over 70 years has not been determined. Clinical correlation is essential. Serum or plasma urea nitroge n measurement (mass/volume)Ordered By: Maximilian Kitchen on 01-30-2023 Urea nitrogen [Mass/Vol] 10 mg/dL 7-18 [facility] Thin prep Papanicolaou smear with manual screeningOrdered By: Maximilian Kitchen on 01-30-2023 Thin prep Papanicolaou smear with manual screening 2 5-15 [facility] Absolute lymphocyte countOrd ered By: Maximilian Kitchen on 01-29-2023 Lymphocytes Auto (Unsp spec) [#/Vol] 1.26 10*3/uL 0.83-4.51 [facility] Basophil percentageOrdered B y: Maximilian Kitchen on 01-29-2023 Basophils/100 WBC (Bld) 0.5 % 0-1 [facility] Chloride [Moles/Vol] 117 mmol/L 98-107 [facility] Eosinophils/100 WBC (Bld) 1.2 % 0-5 [facility] Glucose [Mass/Vol] 93 mg/dL 74-106 [facility] Neutrophils (Bld) [#/Vol] 6.6 10*3/uL 2.0-7.7 [facility] Neutrophils/100 WBC (Bld) 76.0 % 47-70 [facility] Potassium [Moles/Vol] 3.9 mmol/L 3.5-5.1 [facility] Sodium [Moles/Vol] 142 mmol/L 136-145 [facility] WBC (Bld) [#/Vol] 8.6 10*3/uL 4.4-11.0 [facility] Blood erythrocytes count (nu mber/volume)Ordered By: Maximilian Kitchen on 01-29-2023 RBC (Bld) [#/Vol] 3.27 10*6/uL 4.2-5.4 [facility] Blood hemoglobin measurement (mass/volume)Ordered By: Maximilian Kitchen on 01-29-2023 Hemoglobin (Bld) [Mass/Vol] 10.3 g/dL 12.0-15.0 [facility] Blood lymphocytes/100 leukoc ytesOrdered By: Maximilian Kitchen on 01-29-2023 Lymphocytes/100 WBC (Bld) 14.6 % 19-41 [facility] Blood monocytes/100 leukocyt esOrdered By: Maximilian Kitchen on 01-29-2023 Monocytes/100 WBC (Bld) 7.2 % 0-10 [facility] Blood platelet mean volumeOr dered By: Maximilian Kitchen on 01-29-2023 Platelet mean volume (Bld) [Entitic vol] 12.3 fL 6.2-12.0 [facility] Determination of erythrocyte mean corpuscular volume (MCV)Ordered By: Maximilian Kitchen on 01-29-2023 MCV (RBC) [Entitic vol] 96.9 fL 81-99 [facility] Glucose Glucometer (BldC) [M ass/Vol]Ordered By: Maximilian Kitchen on 01-29-2023 Glucose [Mass/Vol] 97 mg/dL 74-106 [facility] Comment on above: MANAGEMENT OF PATIEN T CARE PER NURSING PROTOCOL Gram stain for investigation of transfusion reactionOrdered By: Maximilian Kitchen on 01-29-2023 Microscopic observation Gram stain Nom (Unsp spec) [facility] Hematocrit Auto (Bld) [Volum e fraction]Ordered By: Maximilian Kitchen on 01-29-2023 Hematocrit (Bld) [Volume fraction] 31.7 % 37-47 [facility] Laboratory - Chemistry and C hemistry - challengeOrdered By: Maximilian Kitchen on 01-29-2023 CO2 [Moles/Vol] 25.0 mmol/L 21.0-32.0 [facility] Urea nitrogen/Creatinine [Mass ratio] 23.3 mg/mg 10-20 [facility] Laboratory - CoagulationOrde red By: Maximilian Thomas on 01-29-2023 aPTT Coag (Bld) [Time] 46.2 s 24.1-36.[address] [facility] Laboratory - Hematology and Cell countsOrdered By: Maximilian Kitchen on 01-29-2023 Erythrocyte distribution width (RBC) [Entitic vol] 54.3 fL 35.1-43.9 [facility] Erythrocyte distribution width (RBC) [Ratio] 15.3 % 11.6-14.6 [facility] Immature granulocytes/100 WBC (Bld) 0.500 % 0.0-0.9 [facility] Comment on above: IG% - Immature Granu locytes (promyelocytes, myelocytes and metamyelocytes) > 1% indicates that a LEFT SHIFT is Present. MCH (RBC) [Entitic mass] 31.5 pg 27.0-32.0 [facility] Nucleated RBC/100 WBC (Bld) [Ratio] 0 % 0-5 [facility] MCHC Auto (RBC) [Mass/Vol]Or dered By: Maximilian Kitchen on 01-29-2023 MCHC (RBC) [Mass/Vol] 32.5 g/dL 32-36 [facility] Microbial respiratory cultur eOrdered By: Maximilian Kitchen on 01-29-2023 Bacteria identified Respiratory culture Nom (Unsp spec) or Staphylococcus aureus isolated. [facility] No Panel InformationOrdered By: Maximilian Kitchen on 01-29-2023 Estimated Creatinine Clearance Calc 93.43 ml/min [facility] Estimated GFR (MDRD) Amer 117 mL/min >60 [facility] Comment on above: GFR Calc Estimated GFR (MDRD) Non-Af Amer 96 mL/min >60 [facility] Comment on above: Non- GFR Calc No Panel InformationOrdered By: Maximilian Thomas on 01-29-2023 Giardia Antigen (TWYLA) [facility] Ova and parasitesOrdered By: Maximilian Thomas on 01-29-2023 Ova and parasites identified LM Nom (Unsp spec) [facility] Platelets bldOrdered By: Doroteo Kitchen on 01-29-2023 Platelets (Bld) [#/Vol] 147 10*3/uL 150-450 [facility] Serum or plasma calcium brittny urement (mass/volume)Ordered By: Maximilian Kitchen on 01-29-2023 Calcium [Mass/Vol] 7.5 mg/dL 8.5-10.1 [facility] Serum or plasma creatinine m easurement (mass/volume)Ordered By: Maximilian Kitchen on 01-29-2023 Creatinine [Mass/Vol] 0.64 mg/dL 0.55-1.02 [facility] Comment on above: The validity of the calculated GFR & GFRAA in patients over 70 years has not been determined. Clinical correlation is essential. Serum or plasma urea nitroge n measurement (mass/volume)Ordered By: Maximilian Kitchen on 01-29-2023 Urea nitrogen [Mass/Vol] 15 mg/dL 7-18 [facility] Stool enteric pathogen panel by probe and target amplification methodOrdered By: Maximilian Thomas on 01-29-2023 Gastrointestinal pathogens panel IVAN+probe (Stl) [facility] Thin prep Papanicolaou smear with manual screeningOrdered By: Maximilian Kitchen on 01-29-2023 Thin prep Papanicolaou smear with manual screening 0 5-15 [facility] Basophil percentageOrdered B y: Maximilian Kitchen on 01-28-2023 Basophil percentage 3.7 mg/dL 2.5-4.9 [facility] INR in Blood by Coagulation assayOrdered By: Maximilian Kitchen on 01-28-2023 INR Coag (Bld) [Relative time] 1.3 {INR} [facility] Laboratory - Chemistry and C hemistry - challengeOrdered By: Maximilian Kitchen on 01-28-2023 Magnesium [Mass/Vol] 2.0 mg/dL 1.6-2.6 [facility] Laboratory - CoagulationOrde red By: Maximilian Kitchen on 01-28-2023 PT Coag (PPP) [Time] 16.0 s 11.7-14.9 [facility] No Panel InformationOrdered By: Maximilian Kitchen on 01-28-2023 Methicillin-Resist S.aureus DNA PCR Negative Negative [facility] Troponin I High Sensitivity 4907 pg/mL 3.0-54.0 [facility] Comment on above: Critical Result(s) C alled at: 01:20:17 01/28/2023 by: CATRACHO Mccarty RN ICU. Results read back by same. Please Note: New Test Units and Gender Specific Reference Ranges. For more information see Policy Stat Procedure [place] High Sensitivity Troponin (TNIH) and attachments. Assessment of wrist artery p atency prior to arterial punctureOrdered By: Maximilian Kitchen on 01-27-2023 Arterial patency Wrist artery --pre arterial puncture Positive [facility] Base excessOrdered By: Maximilian Kitchen on 01-27-2023 Base excess Calc (BldV) [Moles/Vol] -2 mmol/L -2-2 [facility] Basophil percentageOrdered B y: Maximilian Kitchen on 01-27-2023 Basophil percentage 24.0 mmol/L 22-26 [facility] Basophils/100 WBC (Bld) 96 % 95-99 [facility] Basophil percentageOrdered B y: Darius Ryan on 01-27-2023 Lactate [Moles/Vol] 1.3 mmol/L 0.4-2.0 [facility] Bilirubin [Mass/Vol] 0.80 mg/dL 0.20-1.00 [facility] Comment on above: For patients on eltr ombopag therapy, use of Dimension [place] TBIL is not recommended. Protein [Mass/Vol] 6.9 g/dL 6.4-8.2 [facility] Basophil percentage 0-5 SEEN /hpf 0-[address] [facility] Bilirubin Test strip Ql (U)O rdered By: Darius Ryan on 01-27-2023 Bilirubin Ql (U) Negative Negative [facility] Blood manual differential co mment interpretation (narrative result)Ordered By: Darius Ryan on 01-27-2023 Manual differential comment Deon (Bld) [Interp] COMMENT [facility] Comment on above: LYMPHOPENIA. CO2 (BldA) [Partial pressure ]Ordered By: Maximilian Kitchen on 01-27-2023 CO2 (Bld) [Partial pressure] 42.5 mm[Hg] 35-45 [facility] Culture, urineOrdered By: Reymundo Ryan on 01-27-2023 Bacteria identified Cx Nom (U) Escherichia coli [facility] Direct bilirubinOrdered By: Darius Ryan on 01-27-2023 Bilirubin.direct [Mass/Vol] 0.19 mg/dL 0.00-0.30 [facility] Ketones Test strip Ql (U)Ord ered By: Darius Ryan on 01-27-2023 Ketones Ql (U) Negative Negative [facility] Laboratory - Chemistry and C hemistry - challengeOrdered By: Darius Ryan on 01-27-2023 ALP [Catalytic activity/Vol] 92 U/L 45-117 [facility] ALT [Catalytic activity/Vol] 13 U/L 13-56 [facility] Globulin (S) [Mass/Vol] 3.6 g/dL 2.2-4.2 [facility] Lipase [Catalytic activity/Vol] 25 U/L 13-75 [facility] Comment on above: Please note:LIPASE r evised reference range effective 22. New Lipase methodology. Expected to produce lower values than the previous assay method. NEW Reference Range: 13 - 75 U/L Laboratory - Microbiology an d Antimicrobial susceptibilityOrdered By: Darius Ryan on 01-27-2023 Bacteria identified Cx Nom (Bld) No growth in 5 days. [facility] Mucus LM Ql (Urine sed)Order ed By: Darius Ryan on 01-27-2023 Mucus Ql (Urine sed) 0 SEEN /hpf [facility] Nitrite Test strip Ql (U)Ord ered By: Darius Ryan on 01-27-2023 Nitrite Ql (U) Negative Negative [facility] No Panel InformationOrdered By: Maximilian Kitchen on 01-27-2023 Bedside Blood Gas PEEP [address] [facility] Blood Gas Oxygen Percent 35.0 [facility] Blood Gas Respiration Rate 12 [facility] Blood Gas Sample Site R Radial [facility] Blood Gas Specimen Type ART [facility] Blood Gas Total CO2 25 mmol/L [facility] Blood Gas Vent Mode Not entered [facility] Oxygen Delivery Device BiPAP [facility] Oxygen (BldA) [Partial press ure]Ordered By: Maximilian Kitchen on 01-27-2023 Oxygen (Bld) [Partial pressure] 86 mmHG 75-100 [facility] Protein Test strip Ql (U)Ord ered By: Darius Ryan on 01-27-2023 Protein Ql (U) 30 mg/dl Negative [facility] Serum or plasma albumin brittny urement (mass/volume)Ordered By: Darius Ryan on 01-27-2023 Albumin [Mass/Vol] 3.3 g/dL 3.2-5.0 [facility] Squamous epithelial cells de tection in urine sediment by light microscopyOrdered By: Darius Ryan on 01-27-2023 Epithelial cells.squamous LM Ql (Urine sed) 10-25 SEEN /hpf 5-10 [facility] Thin prep Papanicolaou smear with manual screeningOrdered By: Darius Ryan on 01-27-2023 Thin prep Papanicolaou smear with manual screening 10 U/L 15-37 [facility] Urine blood detectionOrdered By: Darius Ryan on 01-27-2023 RBC Ql (U) 50 /ul Negative [facility] RBC Ql (U) 0-5 SEEN /hpf 0-5 [facility] Urine clarityOrdered By: Bruce Ryan on 01-27-2023 Clarity (U) Sl. Cloudy Clear [facility] Urine color determinationOrd ered By: Darius Ryan on 01-27-2023 Color (U) Yellow Yellow [facility] Urine glucose detectionOrder ed By: Darius Ryan on 01-27-2023 Glucose Ql (U) 1000 mg/dl Normal [facility] Urine leukocyte esterase det ection by dipstickOrdered By: Darius Ryan on 01-27-2023 Leukocyte esterase Test strip Ql (U) 25 /ul Negative [facility] Urine pHOrdered By: Darius jennings on 01-27-2023 pH (U) 7.0 [pH] 5.0 - 8.0 [facility] Urine sediment bacteria coun t by microscopy (number/high power field)Ordered By: Darius Ryan on 01-27-2023 Bacteria LM.HPF (Urine sed) [#/Area] 2 /[HPF] None Seen [facility] Urine specific gravity measu rementOrdered By: Darius Ryan on 01-27-2023 Specific gravity (U) [Rel density] 1.005 1.002-1.030 [facility] Urobilinogen Auto test strip Ql (U)Ordered By: Darius Ryan on 01-27-2023 Urobilinogen Ql (U) Normal mg/dl Normal [facility] pH measurementOrdered By: Reymundo Kitchen on 01-27-2023 pH (Unsp spec) 7.36 [pH] 7.35-7.45 [facility] Basophil percentageOrdered B y: Richie Heredia on 01-25-2023 Bilirubin [Mass/Vol] 0.30 mg/dL 0.20-1.00 [facility] Comment on above: For patients on eltr ombopag therapy, use of Dimension [place] TBIL is not recommended. Chloride [Moles/Vol] 104 mmol/L 98-107 [facility] Cholesterol [Mass/Vol] 142 mg/dL <[address] [facility] Comment on above: <200 mg/dL Desirable 200-240 mg/dL Borderline >240 mg/dL High Risk Glucose [Mass/Vol] 83 mg/dL 74-106 [facility] Potassium [Moles/Vol] 4.6 mmol/L 3.5-5.1 [facility] Protein [Mass/Vol] 7.0 g/dL 6.4-8.2 [facility] Sodium [Moles/Vol] 139 mmol/L 136-145 [facility] Triglyceride [Mass/Vol] 173 mg/dL <199 [facility] Comment on above: The drugs N-Acetylcy steine and Metamizole may falsely depress this assay.Serum Triglycerides Reference Interval Normal <150 mg/dL Borderline high 150 - 199 mg/dL High 200 - 499 mg/dL Very High > or = 500 mg/dL WBC (Bld) [#/Vol] 7.7 10*3/uL 4.4-11.0 [facility] Blood erythrocytes count (nu mber/volume)Ordered By: Richie Heredia on 01-25-2023 RBC (Bld) [#/Vol] 4.39 10*6/uL 4.2-5.4 [facility] Blood hemoglobin measurement (mass/volume)Ordered By: Richie Heredia on 01-25-2023 Hemoglobin (Bld) [Mass/Vol] 13.5 g/dL 12.0-15.0 [facility] Blood platelet mean volumeOr dered By: Richie Heredia on 01-25-2023 Platelet mean volume (Bld) [Entitic vol] 12.4 fL 6.2-12.0 [facility] Determination of erythrocyte mean corpuscular volume (MCV)Ordered By: Richie Heredia on 01-25-2023 MCV (RBC) [Entitic vol] 97.9 fL 81-99 [facility] Hematocrit Auto (Bld) [Volum e fraction]Ordered By: Richie Heredia on 01-25-2023 Hematocrit (Bld) [Volume fraction] 43.0 % 37-47 [facility] Laboratory - Chemistry and C hemistry - challengeOrdered By: Richie Heredia on 01-25-2023 ALP [Catalytic activity/Vol] 84 U/L 45-117 [facility] ALT [Catalytic activity/Vol] 11 U/L 13-56 [facility] CO2 [Moles/Vol] 31.0 mmol/L 21.0-32.0 [facility] Cobalamin (Vitamin B12) [Mass/Vol] 199 pg/mL 211-911 [facility] Free T4 [Mass/Vol] 0.95 ng/dL 0.76-1.46 [facility] Globulin (S) [Mass/Vol] 3.6 g/dL 2.2-4.2 [facility] Urea nitrogen/Creatinine [Mass ratio] 16.5 mg/mg 10-20 [facility] Laboratory - Hematology and Cell countsOrdered By: Richie Heredia on 01-25-2023 Erythrocyte distribution width (RBC) [Entitic vol] 55.4 fL 35.1-43.9 [facility] Erythrocyte distribution width (RBC) [Ratio] 15.3 % 11.6-14.6 [facility] MCH (RBC) [Entitic mass] 30.8 pg 27.0-32.0 [facility] MCHC Auto (RBC) [Mass/Vol]Or dered By: Richie Heredia on 01-25-2023 MCHC (RBC) [Mass/Vol] 31.4 g/dL 32-36 [facility] No Panel InformationOrdered By: Richie Heredia on 01-25-2023 Estimated GFR (MDRD) Amer 64 mL/min >60 [facility] Comment on above: GFR Calc Estimated GFR (MDRD) Non-Af Amer 53 mL/min >60 [facility] Comment on above: Non- GFR Calc Thyroid Stimulating Hormone (TSH) 4.44 uIU/mL 0.358-3.74 [facility] Platelets bldOrdered By: Twyla Heredia on 01-25-2023 Platelets (Bld) [#/Vol] 246 10*3/uL 150-450 [facility] Serum or plasma albumin brittny urement (mass/volume)Ordered By: Richie Heredia on 01-25-2023 Albumin [Mass/Vol] 3.4 g/dL 3.2-5.0 [facility] Serum or plasma albumin/glob ulin mass ratioOrdered By: Richie Heredia on 01-25-2023 Albumin/Globulin [Mass ratio] 0.9 {ratio} 0.9-2.4 [facility] Serum or plasma calcium brittny urement (mass/volume)Ordered By: Richie Heredia on 01-25-2023 Calcium [Mass/Vol] 9.2 mg/dL 8.5-10.1 [facility] Serum or plasma cholesterol in HDL measurement (mass/volume)Ordered By: Richie Heredia on 01-25-2023 Cholesterol in HDL [Mass/Vol] 35 mg/dL >40 [facility] Comment on above: The drugs N-Acetylcy steine and Metamizole may falsely depress this assay. Reference Range HDL <40 mg/dL Low HDL Cholesterol HDL >or= 60 mg/dL High HDL Cholesterol Serum or plasma cholesterol in VLDL measurement (mass/volume)Ordered By: Richie Heredia on 01-25-2023 Cholesterol in VLDL [Mass/Vol] 35 mg/dL 5-40 [facility] Serum or plasma creatinine m easurement (mass/volume)Ordered By: Richie Heredia on 01-25-2023 Creatinine [Mass/Vol] 1.09 mg/dL 0.55-1.02 [facility] Comment on above: The validity of the calculated GFR & GFRAA in patients over 70 years has not been determined. Clinical correlation is essential. Serum or plasma low density lipoprotein (LDL) cholesterol measurement (mass/volume)Ordered By: Richie Heredia on 01-25-2023 Cholesterol in LDL [Mass/Vol] 72 mg/dL 0-130 [facility] Serum or plasma urea nitroge n measurement (mass/volume)Ordered By: Richie Heredia on 01-25-2023 Urea nitrogen [Mass/Vol] 18 mg/dL 7-18 [facility] Thin prep Papanicolaou smear with manual screeningOrdered By: Richie Heredia on 01-25-2023 Thin prep Papanicolaou smear with manual screening 9 U/L 15-37 [facility] Thin prep Papanicolaou smear with manual screening 4 5-15 [facility] MA MAMMOGRAM SCREENING BILAT ERAL W/TOMOon 10-27-2022 MA MAMMOGRAM SCREENING BILATERAL W/GLENN ORIGINAL FROM: JULIET SMITH [address], [place] [address] PROCEDURE FOR: [address] [place] [address] Home: PID#: [id number] Exam#: [id number] : 1950 Age: 72 TO: RICHIE ESC[address] [place] [address] Fax: NO FAX EXAMINATION: SCREENING DIGITAL BILATERAL [...] 10/27/2022 10:12:14 AM Ordering Provider: RICHIE HEREDIA Manager Communication: TANG ERNANDEZ RT (R) (M) (CT) letter sent: Normal BI-RADS 1 and 2 Mammogram BI-RADS: 2 Benign Normal [facility] ([place]) Absolute lymphocyte countOrd ered By: Darius Encarnacionehne on 10-20-2022 Lymphocytes Auto (Unsp spec) [#/Vol] 1.30 10*3/uL 0.83-4.51 [facility] Basophil percentageOrdered B y: Darius Ryan on 10-20-2022 Basophils/100 WBC (Bld) 0.4 % 0-1 [facility] Eosinophils/100 WBC (Bld) 0.4 % 0-5 [facility] Neutrophils (Bld) [#/Vol] 11.1 10*3/uL 2.0-7.7 [facility] Neutrophils/100 WBC (Bld) 81.1 % 47-70 [facility] WBC (Bld) [#/Vol] 13.7 10*3/uL 4.4-11.0 [facility] Bilirubin [Mass/Vol] 0.70 mg/dL 0.20-1.00 [facility] Comment on above: For patients on eltr ombopag therapy, use of Dimension [place] TBIL is not recommended. Chloride [Moles/Vol] 101 mmol/L 98-107 [facility] Glucose [Mass/Vol] 150 mg/dL 74-106 [facility] Comment on above: Fasting Glucose resu lt greater than or equal to 126 mg/dL suggests DIABETES MELLITUS per A.D.A. criteria. Potassium [Moles/Vol] 4.8 mmol/L 3.5-5.1 [facility] Comment on above: Moderate Hemolysis, Result may be falsely increased. Protein [Mass/Vol] 7.3 g/dL 6.4-8.2 [facility] Sodium [Moles/Vol] 132 mmol/L 136-145 [facility] Blood erythrocytes count (nu mber/volume)Ordered By: Darius Ryan on 10-20-2022 RBC (Bld) [#/Vol] 4.46 10*6/uL 4.2-5.4 [facility] Blood hemoglobin measurement (mass/volume)Ordered By: Darius Ryan on 10-20-2022 Hemoglobin (Bld) [Mass/Vol] 13.6 g/dL 12.0-15.0 [facility] Blood lymphocytes/100 leukoc ytesOrdered By: Darius Ryan on 10-20-2022 Lymphocytes/100 WBC (Bld) 9.5 % 19-41 [facility] Blood monocytes/100 leukocyt esOrdered By: Darius Ryan on 10-20-2022 Monocytes/100 WBC (Bld) 7.9 % 0-10 [facility] Blood platelet mean volumeOr dered By: Darius Ryan on 10-20-2022 Platelet mean volume (Bld) [Entitic vol] 11.1 fL 6.2-12.0 [facility] Determination of erythrocyte mean corpuscular volume (MCV)Ordered By: Darius Rayn on 10-20-2022 MCV (RBC) [Entitic vol] 97.3 fL 81-99 [facility] Hematocrit Auto (Bld) [Volum e fraction]Ordered By: Darius Ryan on 10-20-2022 Hematocrit (Bld) [Volume fraction] 43.4 % 37-47 [facility] Laboratory - Chemistry and C hemistry - challengeOrdered By: Darius Ryan on 10-20-2022 ALP [Catalytic activity/Vol] 70 U/L 45-117 [facility] ALT [Catalytic activity/Vol] 16 U/L 13-56 [facility] CO2 [Moles/Vol] 21.0 mmol/L 21.0-32.0 [facility] Globulin (S) [Mass/Vol] 4.4 g/dL 2.2-4.2 [facility] Urea nitrogen/Creatinine [Mass ratio] 15.2 mg/mg 10-20 [facility] Laboratory - Hematology and Cell countsOrdered By: Darius Ryan on 10-20-2022 Erythrocyte distribution width (RBC) [Entitic vol] 47.7 fL 35.1-43.9 [facility] Erythrocyte distribution width (RBC) [Ratio] 13.2 % 11.6-14.6 [facility] Immature granulocytes/100 WBC (Bld) 0.700 % 0.0-0.9 [facility] Comment on above: IG% - Immature Granu locytes (promyelocytes, myelocytes and metamyelocytes) > 1% indicates that a LEFT SHIFT is Present. MCH (RBC) [Entitic mass] 30.5 pg 27.0-32.0 [facility] Nucleated RBC/100 WBC (Bld) [Ratio] 0 % 0-5 [facility] MCHC Auto (RBC) [Mass/Vol]Or dered By: Darius Ryan on 10-20-2022 MCHC (RBC) [Mass/Vol] 31.3 g/dL 32-36 [facility] No Panel InformationOrdered By: Darius Ryan on 10-20-2022 Estimated GFR (MDRD) Amer 62 mL/min >60 [facility] Comment on above: GFR Calc Estimated GFR (MDRD) Non-Af Amer 51 mL/min >60 [facility] Comment on above: Non- GFR Calc Troponin I High Sensitivity 17 pg/mL 3.0-54.0 [facility] Comment on above: Please Note: New Alanis t Units and Gender Specific Reference Ranges. For more information see Policy Stat Procedure [place] High Sensitivity Troponin (TNIH) and attachments. Ova and parasitesOrdered By: Darius Ryan on 10-20-2022 Ova and parasites identified LM Nom (Unsp spec) [facility] Platelets bldOrdered By: Bruce Ryan on 10-20-2022 Platelets (Bld) [#/Vol] 370 10*3/uL 150-450 [facility] Serum or plasma albumin brittny urement (mass/volume)Ordered By: Darius Ryan on 10-20-2022 Albumin [Mass/Vol] 2.9 g/dL 3.2-5.0 [facility] Serum or plasma albumin/glob ulin mass ratioOrdered By: Darius Ryan on 10-20-2022 Albumin/Globulin [Mass ratio] 0.7 {ratio} 0.9-2.4 [facility] Serum or plasma calcium brittny urement (mass/volume)Ordered By: Darius Ryan on 10-20-2022 Calcium [Mass/Vol] 9.5 mg/dL 8.5-10.1 [facility] Serum or plasma creatinine m easurement (mass/volume)Ordered By: Darius Ryan on 10-20-2022 Creatinine [Mass/Vol] 1.12 mg/dL 0.55-1.02 [facility] Comment on above: The validity of the calculated GFR & GFRAA in patients over 70 years has not been determined. Clinical correlation is essential. Serum or plasma urea nitroge n measurement (mass/volume)Ordered By: Darius Ryan on 10-20-2022 Urea nitrogen [Mass/Vol] 17 mg/dL 7-18 [facility] Stool lactoferrin detection by immunoassayOrdered By: Darius Ryan on 10-20-2022 Lactoferrin IA Ql (Stl) [facility] Thin prep Papanicolaou smear with manual screeningOrdered By: Darius Ryan on 10-20-2022 Thin prep Papanicolaou smear with manual screening 21 U/L 15-37 [facility] Comment on above: Moderate Hemolysis, Result may be falsely increased. Thin prep Papanicolaou smear with manual screening 10 5-15 [facility] Basophil percentageOrdered B y: Richie Heredia on 07-07-2022 Bilirubin [Mass/Vol] 0.50 mg/dL 0.20-1.00 [facility] Comment on above: For patients on eltr ombopag therapy, use of Dimension [place] TBIL is not recommended. Chloride [Moles/Vol] 104 mmol/L 98-107 [facility] Glucose [Mass/Vol] 161 mg/dL 74-106 [facility] Comment on above: Fasting Glucose resu lt greater than or equal to 126 mg/dL suggests DIABETES MELLITUS per A.D.A. criteria. Potassium [Moles/Vol] 4.6 mmol/L 3.5-5.1 [facility] Protein [Mass/Vol] 7.0 g/dL 6.4-8.2 [facility] Sodium [Moles/Vol] 138 mmol/L 136-145 [facility] WBC (Bld) [#/Vol] 11.8 10*3/uL 4.4-11.0 [facility] Blood erythrocytes count (nu mber/volume)Ordered By: Richie Heredia on 07-07-2022 RBC (Bld) [#/Vol] 4.51 10*6/uL 4.2-5.4 [facility] Blood hemoglobin measurement (mass/volume)Ordered By: Richie Heredia on 07-07-2022 Hemoglobin (Bld) [Mass/Vol] 14.2 g/dL 12.0-15.0 [facility] Blood platelet mean volumeOr dered By: Richie Heredia on 07-07-2022 Platelet mean volume (Bld) [Entitic vol] 11.1 fL 6.2-12.0 [facility] Determination of erythrocyte mean corpuscular volume (MCV)Ordered By: Richie Heredia on 07-07-2022 MCV (RBC) [Entitic vol] 97.3 fL 81-99 [facility] Hematocrit Auto (Bld) [Volum e fraction]Ordered By: Richie Heredia on 07-07-2022 Hematocrit (Bld) [Volume fraction] 43.9 % 37-47 [facility] Laboratory - Chemistry and C hemistry - challengeOrdered By: Richie Heredia on 07-07-2022 ALP [Catalytic activity/Vol] 80 U/L 45-117 [facility] ALT [Catalytic activity/Vol] 24 U/L 13-56 [facility] CO2 [Moles/Vol] 28.0 mmol/L 21.0-32.0 [facility] Free T4 [Mass/Vol] 0.96 ng/dL 0.76-1.46 [facility] Globulin (S) [Mass/Vol] 3.5 g/dL 2.2-4.2 [facility] Natriuretic peptide B (Bld) [Mass/Vol] 76.7 pg/mL 0-100 [facility] Urea nitrogen/Creatinine [Mass ratio] 25.1 mg/mg 10-20 [facility] Laboratory - Hematology and Cell countsOrdered By: Richie Heredia on 07-07-2022 Erythrocyte distribution width (RBC) [Entitic vol] 48.2 fL 35.1-43.9 [facility] Erythrocyte distribution width (RBC) [Ratio] 13.5 % 11.6-14.6 [facility] MCH (RBC) [Entitic mass] 31.5 pg 27.0-32.0 [facility] MCHC Auto (RBC) [Mass/Vol]Or dered By: Richie Heredia on 07-07-2022 MCHC (RBC) [Mass/Vol] 32.3 g/dL 32-36 [facility] No Panel InformationOrdered By: Richie Heredia on 07-07-2022 Estimated GFR (MDRD) Amer 78 mL/min >60 [facility] Comment on above: GFR Calc Estimated GFR (MDRD) Non-Af Amer 64 mL/min >60 [facility] Comment on above: Non- GFR Calc Thyroid Stimulating Hormone (TSH) 2.44 uIU/mL 0.358-3.74 [facility] Platelets bldOrdered By: Twyla Heredia on 07-07-2022 Platelets (Bld) [#/Vol] 263 10*3/uL 150-450 [facility] Serum or plasma albumin brittny urement (mass/volume)Ordered By: Richie Heredia on 07-07-2022 Albumin [Mass/Vol] 3.5 g/dL 3.2-5.0 [facility] Serum or plasma albumin/glob ulin mass ratioOrdered By: Richie Heredia on 07-07-2022 Albumin/Globulin [Mass ratio] 1.0 {ratio} 0.9-2.4 [facility] Serum or plasma calcium brittny urement (mass/volume)Ordered By: Richie Heredia on 07-07-2022 Calcium [Mass/Vol] 9.1 mg/dL 8.5-10.1 [facility] Serum or plasma creatinine m easurement (mass/volume)Ordered By: Richie Heredia on 07-07-2022 Creatinine [Mass/Vol] 0.92 mg/dL 0.55-1.02 [facility] Comment on above: The validity of the calculated GFR & GFRAA in patients over 70 years has not been determined. Clinical correlation is essential. Serum or plasma urea nitroge n measurement (mass/volume)Ordered By: Richie Heredia on 07-07-2022 Urea nitrogen [Mass/Vol] 23 mg/dL 7-18 [facility] Thin prep Papanicolaou smear with manual screeningOrdered By: Richie Heredia on 07-07-2022 Thin prep Papanicolaou smear with manual screening 14 U/L 15-37 [facility] Thin prep Papanicolaou smear with manual screening 6 5-15 [facility] Whole blood hemoglobin A1c/t otal hemoglobin ratio (mass fraction)Ordered By: Richie Heredia on 07-07-2022 HbA1c (Bld) [Mass fraction] 6.5 % 3.8-5.6 [facility] Comment on above: Normal < 5.7 % Predi abetic 5.7 - 6.4 % Diabetic >or= 6.5 % Please note range changes. Basophil percentageOrdered B y: Dr. Heredia on 03-03-2022 Bilirubin [Mass/Vol] 0.30 mg/dL 0.20-1.00 [facility] Comment on above: For patients on eltr ombopag therapy, use of Dimension [place] TBIL is not recommended. Chloride [Moles/Vol] 103 mmol/L 98-107 [facility] Cholesterol [Mass/Vol] 170 mg/dL <[address] [facility] Comment on above: <200 mg/dL Desirable 200-240 mg/dL Borderline >240 mg/dL High Risk Glucose [Mass/Vol] 153 mg/dL 74-106 [facility] Comment on above: Fasting Glucose resu lt greater than or equal to 126 mg/dL suggests DIABETES MELLITUS per A.D.A. criteria. Potassium [Moles/Vol] 4.4 mmol/L 3.5-5.1 [facility] Protein [Mass/Vol] 6.3 g/dL 6.4-8.2 [facility] Sodium [Moles/Vol] 138 mmol/L 136-145 [facility] Triglyceride [Mass/Vol] 128 mg/dL <199 [facility] Comment on above: The drugs N-Acetylcy steine and Metamizole may falsely depress this assay.Serum Triglycerides Reference Interval Normal <150 mg/dL Borderline high 150 - 199 mg/dL High 200 - 499 mg/dL Very High > or = 500 mg/dL WBC (Bld) [#/Vol] 6.8 10*3/uL 4.4-11.0 [facility] Bilirubin Test strip Ql (U)O rdered By: Dr. Heredia on 03-03-2022 Bilirubin Ql (U) Negative Negative [facility] Blood erythrocytes count (nu mber/volume)Ordered By: Dr. Heredia on 03-03-2022 RBC (Bld) [#/Vol] 4.39 10*6/uL 4.2-5.4 [facility] Blood hemoglobin measurement (mass/volume)Ordered By: Dr. Heredia on 03-03-2022 Hemoglobin (Bld) [Mass/Vol] 13.5 g/dL 12.0-15.0 [facility] Blood platelet mean volumeOr dered By: Dr. Heredia on 03-03-2022 Platelet mean volume (Bld) [Entitic vol] 11.7 fL 6.2-12.0 [facility] Determination of erythrocyte mean corpuscular volume (MCV)Ordered By: Dr. Heredia on 03-03-2022 MCV (RBC) [Entitic vol] 96.4 fL 81-99 [facility] Hematocrit Auto (Bld) [Volum e fraction]Ordered By: Dr. Heredia on 03-03-2022 Hematocrit (Bld) [Volume fraction] 42.3 % 37-47 [facility] Ketones Test strip Ql (U)Ord ered By: Dr. Heredia on 03-03-2022 Ketones Ql (U) Negative Negative [facility] Laboratory - Chemistry and C hemistry - challengeOrdered By: Dr. Heredia on 03-03-2022 ALP [Catalytic activity/Vol] 68 U/L 45-117 [facility] ALT [Catalytic activity/Vol] 20 U/L 13-56 [facility] CO2 [Moles/Vol] 28.0 mmol/L 21.0-32.0 [facility] Free T4 [Mass/Vol] 1.00 ng/dL 0.76-1.46 [facility] Globulin (S) [Mass/Vol] 3.0 g/dL 2.2-4.2 [facility] Urea nitrogen/Creatinine [Mass ratio] 34.0 mg/mg 10-20 [facility] Laboratory - Hematology and Cell countsOrdered By: Dr. Heredia on 03-03-2022 Erythrocyte distribution width (RBC) [Entitic vol] 51.1 fL 35.1-43.9 [facility] Erythrocyte distribution width (RBC) [Ratio] 14.3 % 11.6-14.6 [facility] MCH (RBC) [Entitic mass] 30.8 pg 27.0-32.0 [facility] MCHC Auto (RBC) [Mass/Vol]Or dered By: Dr. Heredia on 03-03-2022 MCHC (RBC) [Mass/Vol] 31.9 g/dL 32-36 [facility] Nitrite Test strip Ql (U)Ord ered By: Dr. Heredia on 03-03-2022 Nitrite Ql (U) Negative Negative [facility] No Panel InformationOrdered By: Dr. Heredia on 03-03-2022 Estimated GFR (MDRD) Amer 100 mL/min >60 [facility] Comment on above: GFR Calc Estimated GFR (MDRD) Non-Af Amer 83 mL/min >60 [facility] Comment on above: Non- GFR Calc Thyroid Stimulating Hormone (TSH) 1.74 uIU/mL 0.358-3.74 [facility] Platelets bldOrdered By: Dr. Heredia on 03-03-2022 Platelets (Bld) [#/Vol] 225 10*3/uL 150-450 [facility] Protein Test strip Ql (U)Ord ered By: Dr. Heredia on 03-03-2022 Protein Ql (U) Negative Negative [facility] Serum or plasma albumin brittny urement (mass/volume)Ordered By: Dr. Heredia on 03-03-2022 Albumin [Mass/Vol] 3.3 g/dL 3.2-5.0 [facility] Serum or plasma albumin/glob ulin mass ratioOrdered By: Dr. Heredia on 03-03-2022 Albumin/Globulin [Mass ratio] 1.1 {ratio} 0.9-2.4 [facility] Serum or plasma calcium brittny urement (mass/volume)Ordered By: Dr. Heredia on 03-03-2022 Calcium [Mass/Vol] 8.8 mg/dL 8.5-10.1 [facility] Serum or plasma cholesterol in HDL measurement (mass/volume)Ordered By: Dr. Heredia on 03-03-2022 Cholesterol in HDL [Mass/Vol] 44 mg/dL >40 [facility] Comment on above: The drugs N-Acetylcy steine and Metamizole may falsely depress this assay. Reference Range HDL <40 mg/dL Low HDL Cholesterol HDL >or= 60 mg/dL High HDL Cholesterol Serum or plasma cholesterol in VLDL measurement (mass/volume)Ordered By: Dr. Heredia on 03-03-2022 Cholesterol in VLDL [Mass/Vol] 26 mg/dL 5-40 [facility] Serum or plasma creatinine m easurement (mass/volume)Ordered By: Dr. Heredia on 03-03-2022 Creatinine [Mass/Vol] 0.74 mg/dL 0.55-1.02 [facility] Comment on above: The validity of the calculated GFR & GFRAA in patients over 70 years has not been determined. Clinical correlation is essential. Serum or plasma low density lipoprotein (LDL) cholesterol measurement (mass/volume)Ordered By: Dr. Heredia on 03-03-2022 Cholesterol in LDL [Mass/Vol] 100 mg/dL 0-130 [facility] Serum or plasma urea nitroge n measurement (mass/volume)Ordered By: Dr. Heredia on 03-03-2022 Urea nitrogen [Mass/Vol] 25 mg/dL 7-18 [facility] Thin prep Papanicolaou smear with manual screeningOrdered By: Dr. Heredia on 03-03-2022 Thin prep Papanicolaou smear with manual screening 12 U/L 15-37 [facility] Thin prep Papanicolaou smear with manual screening 7 5-15 [facility] Thin prep Papanicolaou smear with manual screening 26.7 mg/L NO RANGE EST. [facility] Urine blood detectionOrdered By: Dr. Heredia on 03-03-2022 RBC Ql (U) Negative Negative [facility] Urine clarityOrdered By: Dr. Heredia on 03-03-2022 Clarity (U) Clear Clear [facility] Urine color determinationOrd ered By: Dr. Heredia on 03-03-2022 Color (U) Yellow Yellow [facility] Urine glucose detectionOrder ed By: Dr. Heredia on 03-03-2022 Glucose Ql (U) Normal mg/dl Normal [facility] Urine leukocyte esterase det ection by dipstickOrdered By: Dr. Heredia on 03-03-2022 Leukocyte esterase Test strip Ql (U) Negative Negative [facility] Urine pHOrdered By: Dr. Mayco charltno on 03-03-2022 pH (U) 5.0 [pH] 5.0 - 8.0 [facility] Urine specific gravity measu rementOrdered By: Dr. Heredia on 03-03-2022 Specific gravity (U) [Rel density] 1.020 1.002-1.030 [facility] Urobilinogen Auto test strip Ql (U)Ordered By: Dr. Heredia on 03-03-2022 Urobilinogen Ql (U) Normal mg/dl Normal [facility] Whole blood hemoglobin A1c/t otal hemoglobin ratio (mass fraction)Ordered By: Dr. Heredia on 03-03-2022 HbA1c (Bld) [Mass fraction] 6.6 % 3.8-5.6 [facility] Comment on above: Normal < 5.7 % Predi abetic 5.7 - 6.4 % Diabetic >or= 6.5 % Please note range changes. CNPLorin 09-10-2021 CNPN Telephone ([facility] [address] ([id number]) 1950 F Date Time Provider Department 09/10/21 NAYE BETTS During your visit today, we recorded the following information about you: Marium Borrero 09/10/2021 9:45 AM Signed 10/07 colon/egd lodi Demetrius Mccarty 10/01/2021 9:25 AM Signed Cardiac clearance obtained and scanned into EPIC Marium Gissell 10/06/2021 8:19 AM Signed 1st attempt to contact patient to inform clearance was not met and procedure tomorrow in [place] with Alpesh had to be cancelled until [...] Encounter Status:Closed by MARIUM BORRERO on 10/30/21 [facility] CNOVon 09-09-2021 CNOV Office Visit ([facility]) [address] ([id number]) 1950 F Date Time Provider Department 09/09/21 [...] for her chronic medical conditions, and with [facility] for her heart issues, Dr. Hulrey for pulmonology. Patient denies chest pain or [...] entered by the nurse and reviewed by nv Nursing Notes: Marium Borrero 09/09/2021 2:57 PM [...] chest p (more content not included)... Normal [facility]yer 09-09-2021 [facility] Telephone ([facility]) [address] ([id number]) 1950 F Date Time Provider Department 09/09/21 MARY THOMAS During your visit today, we recorded the following information about you: Marium Borrero 09/09/2021 2:47 PM Signed 09[facility] Mar[facility] Borrero 09/09/2021 2:50 PM Signed Addended by: MARIUM BORRERO on: 09/09/2021 02:50 PM Modules accepted: Orders Marium Borrero 09/09/2021 2:50 PM Signed ENTERED OP TIME Marium Borrero 09/09/2021 2:53 PM Signed Patient is needing pulmonary and cardiac clearance Patient sees Dr. Montiel at the [facility] and sees Dr. Hurley at [facility] Patient is scheduled for both upper and lower scope in [place] with Dr. Betts on 09/23 Demetrius Mccarty 09/11/2021 9:08 AM Signed Clearance has been requested, please check scanned documents Demetrius Mccarty 10/01/2021 9:25 AM Signed Cardiac clearance obtained and scanned into Epic Demetrius Mccarty 11/05/2021 4:14 PM Signed Pulmonary clearance obtained and scanned into Epic Marium Borrero 11/06/2021 12:01 PM Signed Called patient to schedule upper and lower scopes with Dr. Betts in [place] since clearance has been met. Per patient [...] use [Z87.891] Order(s):COLONOSCOPY SCREENING [GI51] Order #: [id number] FUTURE EGD DIAGNOSTIC [GI9] Order #: [id number] FUTURE Prescriptions as of 11/07/2021 - gabapentin [...] Status:Closed by MARIUM BORRERO on 09/09/21 Normal [facility] CNCOon 07-25-2021 CNCO Letter Text Normal [facility] Absolute lymphocyte counton 05-23-2021 Lymphocytes Auto (Unsp spec) [#/Vol] 1.83 10*3/uL 0.83-4.51 [facility] Work Phone: Basophil percentageon 2021 Basophils/100 WBC (Bld) 0.4 % 0-1 [facility] Work Phone: Chloride [Moles/Vol] 108 mmol/L 98-107 [facility] Work Phone: Eosinophils/100 WBC (Bld) 1.2 % 0-5 [facility] Work Phone: Glucose [Mass/Vol] 170 mg/dL 74-106 [facility] Work Phone: Comment on above: Fasting Glucose resu lt greater than or equal to 126 mg/dL suggests DIABETES MELLITUS per A.D.A. criteria. Neutrophils (Bld) [#/Vol] 4.8 10*3/uL 2.0-7.7 [facility] Work Phone: Neutrophils/100 WBC (Bld) 64.7 % 47-70 [facility] Work Phone: Potassium [Moles/Vol] 3.9 mmol/L 3.5-5.1 [facility] Work Phone: Sodium [Moles/Vol] 139 mmol/L 136-145 [facility] Work Phone: WBC (Bld) [#/Vol] 7.4 10*3/uL 4.4-11.0 [facility] Work Phone: Blood erythrocytes count (nu mber/volume)on 04-01-2022 RBC (Bld) [#/Vol] 4.88 10*6/uL 4.2-5.4 [facility] Work Phone: Blood hemoglobin measurement (mass/volume)on 05-23-2021 Hemoglobin (Bld) [Mass/Vol] 15.1 g/dL 12.0-15.0 [facility] Work Phone: Blood lymphocytes/100 leukoc yteson 05-23-2021 Lymphocytes/100 WBC (Bld) 24.8 % 19-41 [facility] Work Phone: [phone] Blood monocytes/100 leukocyt eson 05-23-2021 Monocytes/100 WBC (Bld) 8.4 % 0-10 [facility] Work Phone: Blood platelet mean volumeon 05-23-2021 Platelet mean volume (Bld) [Entitic vol] 11.8 fL 6.2-12.0 [facility] Work Phone: Determination of erythrocyte mean corpuscular volume (MCV)on 05-23-2021 MCV (RBC) [Entitic vol] 94.9 fL 81-99 [facility] Work Phone: Hematocrit Auto (Bld) [Volum e fraction]on 05-23-2021 Hematocrit (Bld) [Volume fraction] 46.3 % 37-47 [facility] Work Phone: Laboratory - Chemistry and C hemistry - challengeon 05-23-2021 CO2 [Moles/Vol] 26.0 mmol/L 21.0-32.0 [facility] Work Phone: Urea nitrogen/Creatinine [Mass ratio] 7.7 mg/mg 10-20 [facility] Work Phone: [phone] Laboratory - Hematology and Cell countson 05-23-2021 Erythrocyte distribution width (RBC) [Entitic vol] 47.0 fL 35.1-43.9 [facility] Work Phone: [phone] Erythrocyte distribution width (RBC) [Ratio] 13.2 % 11.6-14.6 [facility] Work Phone: Immature granulocytes/100 WBC (Bld) 0.500 % 0.0-0.9 [facility] Work Phone: [phone] Comment on above: IG% - Immature Granu locytes (promyelocytes, myelocytes and metamyelocytes) > 1% indicates that a LEFT SHIFT is Present. MCH (RBC) [Entitic mass] 30.9 pg 27.0-32.0 [facility] Work Phone: [phone] Nucleated RBC/100 WBC (Bld) [Ratio] 0 % 0-5 [facility] Work Phone: [phone] MCHC Auto (RBC) [Mass/Vol]on 05-23-2021 MCHC (RBC) [Mass/Vol] 32.6 g/dL 32-36 [facility] Work Phone: [phone] No Panel Informationon 05-23 Estimated Creatinine Clearance Calc 36.67 ml/min [facility] Work Phone: [phone] Estimated GFR (MDRD) Amer 67 mL/min >60 [facility] Work Phone: [phone] Comment on above: GFR Calc Estimated GFR (MDRD) Non-Af Amer 56 mL/min >60 [facility] Work Phone: [phone] Comment on above: Non- GFR Calc Troponin I High Sensitivity 8 pg/mL 3.0-54.0 [facility] Work Phone: Comment on above: Please Note: New Alanis t Units and Gender Specific Reference Ranges. For more information see Policy Stat Procedure [place] High Sensitivity Troponin (TNIH) and attachments. Platelets bldon 05-23-2021 Platelets (Bld) [#/Vol] 291 10*3/uL 150-450 [facility] Work Phone: [phone] Serum or plasma calcium brittny urement (mass/volume)on 05-23-2021 Calcium [Mass/Vol] 8.9 mg/dL 8.5-10.1 [facility] Work Phone: [phone] Serum or plasma creatinine m easurement (mass/volume)on 05-23-2021 Creatinine [Mass/Vol] 1.04 mg/dL 0.55-1.02 [facility] Work Phone: Comment on above: The validity of the calculated GFR & GFRAA in patients over 70 years has not been determined. Clinical correlation is essential. Serum or plasma urea nitroge n measurement (mass/volume)on 05-23-2021 Urea nitrogen [Mass/Vol] 8 mg/dL 7-18 [facility] Work Phone: Thin prep Papanicolaou smear with manual screeningon 05-23-2021 Thin prep Papanicolaou smear with manual screening 5 5-15 [facility] Work Phone: LABORATORYOrdered By: Gay Nash on [...] definite cause of disease. Laboratories within the [place] and its territories are required to report all positive results to the appropriate public health authorities.Detectio n of analyte target(s) does not imply that the corresponding virus(es) are infectious or are the causative agents for clinical symptoms.There is a risk of false positive values resulting from cross-contamination by target organisms, their nucleic acids or amplified product, or from non-specific signals in the assay.[employer] SARS-CoV-2 Assay is a Real-Time reverse-transcriptas e [...] on file) Final Signed Out: 05/19/2000 12:53 [facility] CONVERTED FINAL DIAGNOSIS SYNOVIUM AND GANGLION, LEFT WRIST, EXCISION - GANGLION CYST AND UNREMARKABLE SYNOVIUM. [facility] CONVERTED ORDERING PROVIDER Ordering Provider: [facility] Otheron 02-10-2000 CONVERTED ELECTRONIC SIGNATURE ANA WARE M.D., PATHOLOGIST (Electronic signature on file) Final Signed Out: 02/10/2000 15:38 [facility] CONVERTED FINAL DIAGNOSIS TISSUE FROM RIGHT WRIST, EXCISION - 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 [facility] CONVERTED ORDERING PROVIDER Ordering Provider: [facility] Vital Signs Date Time Vital Sign Value Performing Clinician Facility 06-01-2024 14:23-0400 Body temperature 97.2 [degF] Dr. Richie Heredia DO Work Phone: [facility] 06-01-2024 14:23-0400 Diastolic blood pressure 59 mm[Hg] Dr. Richie Heredia DO Work Phone: [facility] 06-01-2024 14:23-0400 Heart rate 94 /min Dr. Richie Heredia DO Work Phone: [facility] 06-01-2024 14:23-0400 Respiratory rate 26 /min Dr. Richie Heredia DO Work Phone: [facility] 06-01-2024 14:23-0400 SaO2% (BldA) [Mass fraction] 95 % Dr. Richie Heredia DO Work Phone: [facility] 06-01-2024 14:23-0400 Systolic blood pressure 137 mm[Hg] Dr. Richie Heredia DO Work Phone: [facility] 06-01-2024 12:17-0400 Inhaled oxygen flow rate 3 L/min Dr. Richie Heredia DO Work Phone: [facility] 06-01-2024 10:45-0400 Body height 149.[address] Richie Heredia DO Work Phone: [facility] 06-01-2024 10:45-0400 Body mass index (BMI) [Ratio] 49.9 kg/m2 Dr. Richie Heredia DO Work Phone: [facility] 06-01-2024 10:45-0400 Body weight 112.[address] Richie Heredia DO Work Phone: [facility] 03-27-2024 23:26-0500 Heart rate 102 /min FLORENCIA CALLAWAY MD [facility] 03-27-2024 23:26-0500 Respiratory rate 20 /min FLORENCIA CALLAWAY MD [facility] 03-27-2024 22:04-0500 Respiratory rate 18 /min FLORENCIA CALLAWAY MD [facility] 03-27-2024 22:03-0500 Body temperature 98.78 [degF] FLORENCIA CALLAWAY MD [facility] 03-27-2024 22:03-0500 Body weight 99 kg FLORENCIA CALLAWAY MD [facility] 03-27-2024 22:03-0500 Diastolic Blood Pressure Non-Invasive 54 mm[Hg] FLORENCIA CALLAWAY MD [facility] 03-27-2024 22:03-0500 Heart rate 107 /min FLORENCIA CALLAWAY MD [facility] 03-27-2024 22:03-0500 Respiratory rate 20 /min FLORENCIA CALLAWAY MD [facility] 03-27-2024 22:03-0500 Systolic Blood Pressure Non-Invasive 127 mm[Hg] FLORENCIA CALLAWAY MD [facility] 03-10-2024 01:11-0500 Body temperature 98 [degF] Dr. Richie Heredia DO Work Phone: [facility] 03-10-2024 01:11-0500 Diastolic blood pressure 78 mm[Hg] Dr. Richie Heredia DO Work Phone: [facility] 03-10-2024 01:11-0500 Heart rate 97 /min Dr. Richie Heredia DO Work Phone: [facility] 03-10-2024 01:11-0500 Respiratory rate 16 /min Dr. Richie Heredia DO Work Phone: [facility] 03-10-2024 01:11-0500 SaO2% (BldA) [Mass fraction] 99 % Dr. Richie Heredia DO Work Phone: [facility] 03-10-2024 01:11-0500 Systolic blood pressure 132 mm[Hg] Dr. Richie Heredia DO Work Phone: [facility] 03-09-2024 22:06-0500 Body mass index (BMI) [Ratio] 45.5 kg/m2 Dr. Richie Heredia DO Work Phone: [facility] 03-09-2024 22:06-0500 Body weight 102.[address] Richie Heredia DO Work Phone: [facility] 02-21-2024 23:54-0500 Body temperature 97.8 [degF] Dr. Richie Heredia DO Work Phone: [facility] 02-21-2024 23:54-0500 Diastolic blood pressure 82 mm[Hg] Dr. Richie Heredia DO Work Phone: [facility] 02-21-2024 23:54-0500 Heart rate 93 /min Dr. Richie Heredia DO Work Phone: [facility] 02-21-2024 23:54-0500 Respiratory rate 20 /min Dr. Richie Heredia DO Work Phone: [facility] 02-21-2024 23:54-0500 SaO2% (BldA) [Mass fraction] 98 % Dr. Richie Heredia DO Work Phone: [facility] 02-21-2024 23:54-0500 Systolic blood pressure 160 mm[Hg] Dr. Richie Heredia DO Work Phone: [facility] 01-30-2023 14:00-0500 Inhaled oxygen flow rate 2 L/min Dr. Richie Heredia Work Phone: [facility] 01-30-2023 13:55-0500 Body temperature 97.5 [degF] Dr. Richie Heredia Work Phone: [facility] 01-30-2023 13:55-0500 Diastolic blood pressure 72 mm[Hg] Dr. Richie Heredia Work Phone: [facility] 01-30-2023 13:55-0500 Heart rate 80 /min Dr. Richie Heredia Work Phone: [facility] 01-30-2023 13:55-0500 Respiratory rate 16 /min Dr. Richie Heredia Work Phone: [facility] 01-30-2023 13:55-0500 SaO2% (BldA) [Mass fraction] 95 % Dr. Richie Heredia Work Phone: [facility] 01-30-2023 13:55-0500 Systolic blood pressure 126 mm[Hg] Dr. Richie Heredia Work Phone: [facility] 01-30-2023 06:00-0500 Body mass index (BMI) [Ratio] 49.6 kg/m2 Dr. Richie Heredia Work Phone: [facility] 01-30-2023 06:00-0500 Body weight 114.[address] Richie Heredia Work Phone: [facility] 01-30-2023 04:38-0500 Inhaled oxygen concentration 30 % Dr. Richie Heredia Work Phone: [facility] 01-29-2023 13:22-0500 Inhaled oxygen flow rate 2 L/min Dr. iRchie Heredia Work Phone: [facility] 01-29-2023 12:55-0500 Heart rate 97 /min Dr. Richie Heredia Work Phone: [facility] 01-29-2023 12:55-0500 Respiratory rate 24 /min Dr. Richie Heredia Work Phone: [facility] 01-29-2023 12:55-0500 SaO2% (BldA) [Mass fraction] 99 % Dr. Richie Heredia Work Phone: [facility] 01-29-2023 09:24-0500 Body temperature 98.3 [degF] Dr. Richie Heredia Work Phone: [facility] 01-29-2023 09:24-0500 Diastolic blood pressure 73 mm[Hg] Dr. Richie Heredia Work Phone: [facility] 01-29-2023 09:24-0500 Systolic blood pressure 151 mm[Hg] Dr. Richie Heredia Work Phone: [facility] 01-29-2023 07:21-0500 Inhaled oxygen concentration 30 % Dr. Richie Heredia Work Phone: [facility] 01-29-2023 05:38-0500 Body mass index (BMI) [Ratio] 49.6 kg/m2 Dr. Richie Heredia Work Phone: [facility] 01-29-2023 05:38-0500 Body weight 114.[address] Richie Heredia Work Phone: [facility] 01-28-2023 13:57-0500 Body height 151.[address] Richie Heredia Work Phone: [facility] 10-20-2022 21:55-0400 Body temperature 97.7 [degF] [facility] 10-20-2022 21:55-0400 Diastolic blood pressure 66 mm[Hg] [facility] 10-20-2022 21:55-0400 Heart rate 101 /min [facility] 10-20-2022 21:55-0400 Respiratory rate 16 /min [facility] 10-20-2022 21:55-0400 SaO2% (BldA) [Mass fraction] 98 % [facility] 10-20-2022 21:55-0400 Systolic blood pressure 114 mm[Hg] [facility] 10-20-2022 21:19-0400 Body mass index (BMI) [Ratio] 51.4 kg/m2 [facility] 10-20-2022 21:19-0400 Body weight 119.5 kg [facility] 10-20-2022 19:23-0400 Body height 152.4 cm [facility] 09-09-2021 13:29-0400 Body height 152.4 cm Mary Thomas PA-C Work Phone: [facility] 09-09-2021 13:29-0400 Body temperature 98.4 [degF] Mary Salcedof PA-C Work Phone: [facility] 09-09-2021 13:29-0400 Body weight 107.96 kg Mary Salcedof PA-C Work Phone: [facility] 09-09-2021 13:29-0400 Diastolic blood pressure 60 mm[Hg] Mary Thomas PA-C Work Phone: [facility] 09-09-2021 13:29-0400 Heart rate 85 /min Mary Salcedof PA-C Work Phone: [facility] 09-09-2021 13:29-0400 SaO2% (BldA) [Mass fraction] 95 % Mary Thomas PA-C Work Phone: [facility] 09-09-2021 13:29-0400 Systolic blood pressure 128 mm[Hg] Mary Salcedof PA-C Work Phone: [facility] 05-23-2021 23:04-0400 Diastolic blood pressure 57 mm[Hg] [facility] Work Phone: 05-23-2021 23:04-0400 Heart rate 68 /min [facility] Work Phone: 05-23-2021 23:04-0400 Respiratory rate 18 /min [facility] Work Phone: 05-23-2021 23:04-0400 SaO2% (BldA) [Mass fraction] 96 % [facility] Work Phone: 05-23-2021 23:04-0400 Systolic blood pressure 135 mm[Hg] [facility] Work Phone: 05-23-2021 20:40-0400 Body height 152.4 cm [facility] Work Phone: 05-23-2021 20:40-0400 Body mass index (BMI) [Ratio] 46.3 kg/m2 [facility] Work Phone: 05-23-2021 20:40-0400 Body temperature 98.1 [degF] [facility] Work Phone: 05-23-2021 20:40-0400 Body weight 107.5 kg [facility] Work Phone: 04-26-2021 14:06-0500 Diastolic blood pressure 74 mm[Hg] [facility] Work Phone: 04-26-2021 14:06-0500 Heart rate 87 /min [facility] Work Phone: 04-26-2021 14:06-0500 Respiratory rate 16 /min [facility] Work Phone: 04-26-2021 14:06-0500 SaO2% (BldA) [Mass fraction] 95 % [facility] Work Phone: 04-26-2021 14:06-0500 Systolic blood pressure 154 mm[Hg] [facility] Work Phone: 04-26-2021 12:00-0500 Body mass index (BMI) [Ratio] 48.2 kg/m2 [facility] Work Phone: 04-26-2021 12:00-0500 Body temperature 97.1 [degF] [facility] Work Phone: 04-26-2021 12:00-0500 Body weight 112.03 kg [facility] Work Phone: 01-20-2021 15:16-0500 Body temperature 99.68 [degF] MAYLIN SOUZA MD [facility] 01-20-2021 15:16-0500 Diastolic blood pressure 72 mm[Hg] MAYLIN SOUZA MD [facility] 01-20-2021 15:16-0500 Heart rate 74 /min MAYLIN SOUZA MD [facility] 01-20-2021 15:16-0500 Respiratory rate 20 /min MAYLIN SOUZA MD [facility] 01-20-2021 15:16-0500 Systolic blood pressure 163 mm[Hg] MAYLIN SOUZA MD [facility] 01-20-2021 14:17-0500 Body temperature 98.42 [degF] MAYLIN SOUZA MD [facility] 01-20-2021 14:17-0500 diastolic 49 mm[Hg] MAYLIN SOUZA MD [facility] 01-20-2021 14:17-0500 Heart rate 75 /min MAYLIN SOUZA MD [facility] 01-20-2021 14:17-0500 Respiratory rate 20 /min MAYLIN SOUZA MD [facility] 01-20-2021 14:17-0500 systolic 132 mm[Hg] MAYLIN SOUZA MD [facility] 01-20-2021 13:47-0500 Body temperature 99.14 [degF] MAYLIN SOUZA MD [facility] 01-20-2021 13:47-0500 diastolic 50 mm[Hg] MAYLIN SOUZA MD [facility] 01-20-2021 13:47-0500 Heart rate 74 /min MAYLIN SOUZA MD [facility] 01-20-2021 13:47-0500 Respiratory rate 20 /min MAYLIN SOUZA MD [facility] 01-20-2021 13:47-0500 systolic 140 mm[Hg] MAYLIN SOUZA MD [facility] 01-15-2021 13:06-0500 Diastolic blood pressure 79 mm[Hg] MAYLIN SOUZA MD [facility] 01-15-2021 13:06-0500 Heart rate 93 /min MAYLIN SOUZA MD [facility] 01-15-2021 13:06-0500 Mean blood pressure 94 mm[Hg] MAYLIN SOUZA MD [facility] 01-15-2021 13:06-0500 Respiratory rate 16 /min MAYLIN SOUZA MD [facility] 01-15-2021 13:06-0500 Systolic blood pressure 125 mm[Hg] MAYLIN SOUZA MD [facility] 01-15-2021 12:00-0500 Body height 152 cm MAYLIN SOUZA MD [facility] 01-15-2021 12:00-0500 Body temperature 98.24 [degF] MAYLIN SOUZA MD [facility] 01-15-2021 12:00-0500 Body weight 112 kg MAYLIN SOUZA MD [facility] 01-15-2021 12:00-0500 Diastolic blood pressure 84 mm[Hg] MAYLIN SOUZA MD [facility] 01-15-2021 12:00-0500 Heart rate 98 /min MAYLIN SOUZA MD [facility] 01-15-2021 12:00-0500 Respiratory rate 18 /min MAYLIN SOUZA MD [facility] 01-15-2021 12:00-0500 Systolic blood pressure 95 mm[Hg] MAYLIN SOUZA MD [facility] Encounters Encounter Date Encounter Type Care Provider Facility Start: 09-01-2024 End: 09-01-2024 ambulatory RICHIE HEREDIA Facility:[facility] Start: 09-01-2024 End: 09-01-2024 Patient encounter procedure RICHIE GIOVANNA DO [facility] Start: 08-07-2024 End: 08-11-2024 ambulatory RICHIE GIOVANNA Facility:[facility] Start: 08-07-2024 End: 08-11-2024 Outreach Lab RICHIE GIOVANNA DO [facility] Start: 06-01-2024 End: 06-01-2024 Emergency department patient visit Dr. Richie Heredia DO Work Phone: -Emergency Department Work Phone: Start: 04-20-2024 End: 04-24-2024 ambulatory RICHIE GIOVANNA Facility:[facility] Start: 04-20-2024 End: 04-24-2024 Outreach Lab RICHIE GIOVANNA DO [facility] Start: 04-13-2024 End: 04-13-2024 ambulatory RICHIE GIOVANNA Facility:[facility] Start: 04-13-2024 End: 04-13-2024 Patient encounter procedure RICHIE PARKKO DO [facility] Start: 03-30-2024 End: 04-03-2024 ambulatory RICHIE HALKO Facility:[facility] Start: 03-27-2024 End: 03-27-2024 Emergency department patient visit FLORENCIA CALLAWAY MD [facility] Start: 03-09-2024 End: 03-10-2024 Emergency department patient visit Dr. Hunter Ryan MD -Emergency Department Work Phone: Start: 02-21-2024 End: 02-21-2024 Emergency department patient visit Dr. Juliocesar Bryson-Usama DAVISON -Emergency Department Work Phone: Start: 11-25-2023 End: 11-29-2023 ambulatory RICHIE HALKO Facility:[facility] Start: 11-25-2023 End: 11-29-2023 Outreach Lab RICHIE HALKO DO [facility] Start: 11-25-2023 End: 11-29-2023 ambulatory RICHIE HALKO Facility:[facility] Start: 11-25-2023 End: 11-29-2023 Outreach Lab RICHIE HALKO DO [facility] Start: 11-25-2023 ambulatory Richie Halko Facility: [facility] Start: 09-02-2023 ambulatory Richie Halko Facility: [facility] Start: 08-30-2023 ambulatory RICHIE HALKO DO Facili ty:[facility] Start: 08-30-2023 ambulatory Richie Halko Facility: [facility] Start: 08-27-2023 ambulatory Richie Halko Facility: [facility] Start: 08-26-2023 ambulatory Richie Halko Facility: [facility] Start: 08-26-2023 End: 09-01-2023 Evaluation and management of inpatient Richie Halko Facility:[facility] Start: 08-26-2023 End: 08-26-2023 ambulatory Richie Halko Facility:[facility] Start: 08-25-2023 ambulatory Richie Halko Facility: [facility] Start: 08-12-2023 End: 08-16-2023 ambulatory RICHIE HALKO DO Facility:[facility] Start: 08-12-2023 End: 08-16-2023 Outreach Lab RICHIE HEREDIA DO [facility] Start: 07-26-2023 End: 07-26-2023 Emergency department patient visit Richie Heredia Facility:[facility] Start: 06-18-2023 ambulatory RICHIE HEREDIA DO Facili ty:[facility] Start: 04-20-2023 End: 04-20-[address] Richie Heredia Work Phone: [facility] Work Phone: Start: 04-20-2023 End: 04-20-[address] Richie Heredia Work Phone: [facility] Work Phone: Start: 04-13-2023 End: 04-13-2023 ambulatory RICHIE HEREDIA DO Facility:[facility] Start: 04-13-2023 End: 04-13-2023 Patient encounter procedure RICHIE HEREDIA DO [facility] Start: 03-18-2023 End: 03-22-2023 ambulatory RICHIE HEREDIA DO Facility:[facility] Start: 03-18-2023 End: 03-22-2023 Outreach Lab RICHIE HEREDIA DO [facility] Start: 03-08-2023 End: 05-06-2023 ambulatory RICHIE HEREDIA DO Facility:R Start: 02-02-2023 End: 02-21-2023 ambulatory RICHIE HEREDIA DO Facility:R Start: 01-30-2023 Non-patient / Non-visit Dr. Paige Heredia [place] Phone[place] [facility] Start: 01-30-2023 Non-patient / Non-visit Dr. Paige Heredia Work Phone: [facility] Work Phone: Start: 01-29-2023 Non-patient / Non-visit Dr. Paige Heredia Work Phone: [facility] Work Phone: Start: 01-28-2023 Non-patient / Non-visit Dr. Paige Heredia Work Phone: [facility] Start: 01-28-2023 Non-patient / Non-visit Dr. Paige Heredia Work Phone: [facility] Work Phone: Start: 01-27-2023 Non-patient / Non-visit Dr. Paige Heredia Work Phone: [facility] Start: 01-27-2023 End: 01-30-2023 Evaluation and management of inpatient Dr. Richie Heredia Work Phone: [facility]-Intensive Care Unit Work Phone: Start: 01-27-2023 Non-patient / Non-visit Dr. Paige Heredia Work Phone: [facility] Work Phone: Start: 01-25-2023 End: 01-25-[address] Richie Heredia Work Phone: [facility] Work Phone: Start: 01-25-2023 End: 01-25-[address] Richie Heredia Work Phone: [facility]-Laboratory Work Phone: Start: 10-20-2022 End: 10-20-2022 Emergency department patient visit [facility]Emergency Department Work Phone: Start: 10-19-2022 End: 10-19-2022 ambulatory RICHIE HEREDIA DO Facility:B Start: 10-19-2022 End: 10-19-2022 Patient encounter procedure RICHIE HEREDIA DO [facility] Start: 10-15-2022 ambulatory RICHIE Lou ty:B Start: 07-07-2022 End: 07-07-2022 Patient encounter procedure [facility] Work Phone: Start: 04-27-2022 End: 04-27-2022 Patient encounter procedure RICHIE NICKCHATO DAVISON [facility] Start: 04-22-2022 Non-patient / Non-visit Dr. Paige Heredia Work Phone: [facility] Start: 04-22-2022 End: 04-22-[address] Richie Heredia Work Phone: [facility] Work Phone: Start: 04-22-2022 End: 04-22-[address] Richie Heredia Work Phone: [facility]-Cardiovascular Services Start: 04-10-2022 End: 04-10-2022 Patient encounter procedure RICHIE PARKCHATO DAVISON [facility] Start: 03-03-2022 End: 03-03-2022 ambulatory [facility] Work Phone: Start: 03-03-2022 End: 03-03-2022 Patient encounter procedure [facility]Laboratory Start: 11-06-2021 End: 11-06-2021 ambulatory [facility] Work Phone: Start: 11-06-2021 End: 11-06-2021 Patient encounter procedure [facility]-Radiology, [facility] Start: 09-10-2021 Telephone encounter Naye Lu MD Work Phone: General Surgery Comment on above: 10/07 colon/egd lodi Start: 09-09-2021 End: 09-09-2021 ambulatory RICHIE HEREDIA IV Facility:[facility] Start: 09-09-2021 Telephone encounter Mary moreno PA-C Work Phone: General Surgery Comment on above: 09/23 COLON EGD LODI Start: 09-09-2021 End: 09-09-2021 Patient encounter procedure Mary Thomas PA-C Work Phone: General Surgery Comment on above: Encounter for screen ing for malignant neoplasm of colon (Primary Dx); Other dysphagia; History of tobacco use Start: 08-18-2021 End: 08-18-2021 Patient encounter procedure RICHIE HEREDIA DO [facility] Start: 06-03-2021 End: 06-03-2021 Patient encounter procedure RICHIE HEREDIA DO [facility] Start: 05-23-2021 End: 05-23-2021 [facility] Start: 05-08-2021 End: 05-08-2021 Patient encounter procedure RICHIE HEREDIA DO [facility] Start: 04-26-2021 End: 04-26-2021 Emergency department patient visit [facility]Emergency Department Start: 01-20-2021 End: 01-20-2021 Patient encounter procedure MAYLIN SOUZA MD [facility] Start: 01-15-2021 End: 01-15-2021 Emergency department patient visit MAYLIN SOUZA MD [facility] Start: 01-15-2021 End: 01-15-2021 Patient encounter procedure RICHIE HEREDIA DO [facility] Start: 05-17-2000 End: 05-17-2000 Patient encounter procedure Cristopher Thomason Work Phone: [facility] Start: 05-17-2000 Results Only Cristopher blair Work Phone: [facility] Start: 02-09-2000 End: 02-09-2000 Patient encounter procedure Cristopher Thomason Work Phone: [facility] Start: 02-09-2000 Results Only Cristopher blair Work Phone: [facility] Procedures Date Procedure Procedure Detail Performing Clinician [...] Work Phone: Start: 09-16-1999 Arthroplasty of knee CO CAMILLE HEREDIA DO Comment on above: left [...] identified in Urine by Culture Urine Culture [facility] Start: 06-01-2024 [facility] Start: 03-10-2024 [facility] Start: 03-09-2024 [facility] Start: 02-21-2024 [facility] Start: 02-21-2024 [facility] Start: 04-20-2023 Thiamine measurement [facility] Start: 02-01-2023 Referral to service [facility] Start: 01-30-2023 Patient discharge [facility] Start: 01-30-2023 Blood chemistry [facility] Start: 01-29-2023 Partial thromboplast in time, activated [facility] Start: 01-29-2023 Enteric Bacteriology Enteric Bacteri ology [facility] Start: 01-29-2023 Respiratory Culture Respiratory Cult ure [facility] Start: 01-28-2023 End: 01-29-2023 [facility] Start: 01-28-2023 Care planning and pr oblem solving actions [facility] Start: 01-28-2023 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 [facility] Start: 01-28-2023 Referral to service [facility] Start: 01-27-2023 Care planning and pr oblem solving actions [facility] Start: 01-27-2023 End: 01-27-2023 Following clinical pathway protocol [facility] Start: 01-27-2023 Dual pressure sponta neous ventilation support [facility] Start: 01-27-2023 Bacteria identified in Blood by Culture Blood Culture [facility] Start: 01-27-2023 Urine culture Urine Culture [facility] Start: 01-27-2023 Admission procedure [facility] Start: 01-27-2023 Referral to communication specialist [facility] Start: 01-27-2023 Inhalation therapy procedure [facility] Start: 01-27-2023 Oxygen therapy [facility] Start: 01-27-2023 Care regimes management [facility] Start: 01-27-2023 Assessment of risk o f venous thromboembolism [facility] Start: 01-27-2023 Cardiac monitoring [facility] Start: 01-27-2023 Catheterization of vein [facility] Start: 01-27-2023 Continuous pulse oximetry [facility] Start: 01-27-2023 Insertion of cathete r into peripheral vein [facility] Start: 01-27-2023 Measuring intake and output [facility] Start: 01-27-2023 End: 01-27-2023 Notification of physician [facility] Start: 01-27-2023 Providing care accor ding to standard [facility] Start: 01-27-2023 Vital signs measurements [facility] Start: 01-27-2023 End: 01-27-2023 [facility] Start: 01-27-2023 Ambulation without limitation [facility] Start: 01-27-2023 Verification routine [facility] Start: 01-27-2023 Blood culture [facility] Start: 01-27-2023 [facility] Start: 01-27-2023 Patient referral to dietitian [facility] Start: 10-20-2022 Enteric precautions [facility] Start: 10-20-2022 C. difficile DNA Amplification C. difficile DNA Amplification [facility] Start: 10-20-2022 Enteric Bacteriology Enteric Bacteri ology [facility] Start: 11-16-2021 COVID-19 VACCINE (4 - Booster for Moderna series) COVID-19 VACCINE (4 - Booster for Moderna series) [facility] Start: 10-23-2021 Influenza vaccination INFLUENZA (#1) [facility] Start: 02-22-2021 ADVANCE DIRECTIVE DISCUSSION ADVANCE DIRECTIVE DISCUSSION [facility] Start: 10-24-2019 Influenza vaccination INFLUENZA (#1) [facility] Start: 07-23-2016 ADVANCE DIRECTIVE DISCUSSION ADVANCE DIRECTIVE DISCUSSION [facility] Start: 07-23-2016 BONE DENSITY BONE DENSITY [facility] Start: 07-23-2016 PNEUMOVAX AGE 65 AND OVER WITH 5YR LOOKBACK (#1) PNEUMOVAX AGE 65 AND OVER WITH 5YR LOOKBACK (#1) [facility] Start: 07-23-2001 SHINGRIX VACCINE (1 of 2) SON GRIX VACCINE (1 of 2) [facility] Start: 07-23-2001 Tuberculosis screening COLOREC DAVID CANCER SCREENING,SEE MODIFIER [facility] Start: 07-23-1996 COLOGUARD (FIT-DNA) COLOGUARD (FIT-D NA) [facility] Start: 07-23-1996 Colonoscopy COLONOSCOPY [facility] Start: 07-23-1996 COLORECTAL CANCER SCREENING COLORECTAL CANCER SCREENING [facility] Start: 07-23-[address] [facility] Start: 07-23-1996 FECAL OCCULT BLOOD FECAL OCCULT BLOO D [facility] Start: 07-23-1996 SIGMOIDOSCOPY SIGMOIDOSCOPY [facility] Start: 1991 Mammography MAMMOGRAM [facility] Start: 07-23-1970 Urine microalbumin profile DTAP,TDAP ,TD (1 - Tdap) [facility] Start: 07-23-1969 ANNUAL PCP TEAM CULINARY INTERN TASHA DISEASE VISIT ANNUAL PCP TEAM CHRONIC DISEASE VISIT [facility] Start: 07-23-1969 Hepatitis B surface antibody level LDL CHOLESTEROL [facility] Start: 07-23-1969 HEPATITIS C SCREENING HEPATITIS C SC REENING [facility] Start: 1963 Adult depression scr eening assessment DEPRESSION SCREENING [facility] Start: 07-23-1961 [object Object] DIABETIC FOOT EXAM [facility] Start: 07-23-1961 Hepatitis B screening URINE ALBUMIN:CREATININE RATIO [facility] Start: 07-23-1961 Hepatitis C antibody , confirmatory test DILATED RETINAL EXAM [facility] Start: 07-23-1957 PNEUMOCOCCAL: 65+ (1 - PCV) PNEUMOCOCCAL: 65+ (1 - PCV) [facility] Start: 07-23-1956 HbA1c (Bld) [Mass fraction] HBA1C [facility] Anion gap measurement [facility] Bacteria identified in Sputum by Respiratory culture [facility] Bacteria identified in Unspecified specimen by Respiratory culture [facility] BUN/Creatinine ratio [facility] Calcium [Mass/volume ] in Serum or Plasma [facility] Carbon dioxide, tota l [Moles/volume] in Serum or Plasma [facility] Chloride [Moles/volu me] in Serum or Plasma [facility] Clostridioides diffi cile DNA [Presence] in Unspecified specimen by IVAN with probe detection [facility] Creatinine [Moles/vo lume] in Serum or Plasma [facility] End: 09-09-2022 EGD DIAGNOSTIC EGD DIAGNOSTIC Endoscopy Routine Dysphagia, unspecified type History of tobacco use 1 Occurrences starting 09/09/2021 until 09/09/2022 [facility] Work Phone: Comment on above: 1 Occurrences starti ng 09/09/2021 until 09/09/2022 Gastrointestinal pat hogens panel - Stool by IVAN with probe detection [facility] Gastrointestinal pat hogens panel - Stool by IVAN with probe detection [facility] Glucose [Mass/volume ] in Serum or Plasma [facility] Hematocrit [Volume Fraction] of Blood [facility] Hemoglobin [Mass/vol ume] in Blood [facility] Leukocytes [#/volume ] in Blood [facility] Mean corpuscular hemoglobin concentration determination [facility] Mean corpuscular hemoglobin determination [facility] Measurement of renal function [facility] Neutrophil count [facility] Neutrophil percent differential count [facility] Ova and parasites identified in Unspecified specimen by Light microscopy [facility] Ova and parasites identified in Unspecified specimen by Light microscopy [facility] Patient Education [facility] Work Phone: Patient referral [facility] Work Phone: Platelets [#/volume] in Blood [facility] Potassium [Moles/vol ume] in Serum or Plasma [facility] Red blood cell count [facility] Red cell distributio n width determination [facility] End: 09-09-2022 Screening colonoscopy COLONOSCOPY SCREENING Endoscopy Routine Screening for colon cancer 1 Occurrences starting 09/09/2021 until 09/09/2022 [facility] Work Phone: Comment on above: 1 Occurrences starti ng 09/09/2021 until 09/09/2022 Sodium [Moles/volume ] in Serum or Plasma [facility] Urea nitrogen [Mass/volume] in Serum or Plasma [facility] Urine culture [facility] Immunizations Immunization Date Immunization Notes Care Provider Fa cility 12-29-2023 influenza, high dose seasonal, preservative-free; Translations: [Afluria PF Prefilled Syringe ] FLORENCIA CALLAWAY MD [facility] 12-06-2022 pneumococcal 20-destin nt conjugate vaccine RICHIE HEREDIA DO [facility] 12-06-2022 RSV vaccine preF3, recombinant RICHIE HEREDIA DO [facility] 12-06-2022 zoster vaccine recombinant RICHIE HEREDIA DO [facility] 12-03-2022 influenza, injectabl e, quadrivalent, preservative free Dr. Richie Heredia DO Work Phone: [facility] 01-26-2022 influenza, high dose seasonal, preservative-free RICHIE HEREDIA DO [facility] 11-18-2021 COVID-19, mRNA, LNP- S, bivalent booster, PF, 30 mcg/0.3 mL dose; Translations: [[employer] COVID-19 (12y+) Bivalent Booster Vaccine PF] RICHIE HEREDIA DO [facility] [place] Comment on above: Early/Late Reason: E yue/Late Reason: Other: 11-18-2021 SARSCoV2 mRNA([id number]+)biv al vac 1; Translations: [Pfizer-BioNTech COVID-19 (12y+) Bivalent Booster Vaccine PF] RICHIE HEREDIA DO [facility] Comment on above: Early/Late Reason: E yue/Late Reason: Other: 07-16-2021 COVID-19, mRNA, LNP- S, PF, 100 mcg or 50 mcg dose; Translations: [Moderna COVID-19 Vaccine] RICHIE HEREDIA DO [facility] 07-11-2021 pneumococcal polysaccharide vaccine, 23 valent; Translations: [Pneumovax 23] RICHIE HEREDIA DO [facility] 12-24-2020 influenza, high dose seasonal, preservative-free; Translations: [Fluad Quadrivalent PF ] RICHIE HEREDIA DO [facility] 09-04-2020 COVID-19, mRNA, LNP- S, PF, 100 mcg/ 0.5 mL dose; Translations: [Moderna COVID-19 Vaccine] RICHIE HEREDIA DO [facility] 08-01-2020 COVID-19, mRNA, LNP- S, PF, 100 mcg/ 0.5 mL dose; Translations: [Moderna COVID-19 Vaccine] RICHIE HEREDIA DO [facility] 11-17-2019 influenza, injectabl e, quadrivalent, preservative free Dr. Richie Heredia Work Phone: [facility] 11-17-2019 influenza, seasonal, injectable [facility] 02-01-2018 influenza virus vacc ine, unspecified formulation RICHIE HEERDIA DO [facility] 11-04-2017 influenza virus vacc ine, unspecified formulation RICHIE HEREDIA DO [facility] 10-08-2017 pneumococcal conjuga te vaccine, 13 valent RICHIE HEREDIA DO [facility] 01-29-2015 influenza virus vacc ine, unspecified formulation RICHIE HEREDIA DO [facility] 03-15-2014 influenza virus vacc ine, unspecified formulation RICHIE HEREDIA DO [facility] 03-15-2014 influenza, injectabl e, quadrivalent, preservative free Dr. Richie Heredia Work Phone: [facility] 03-15-2014 influenza, seasonal, injectable [facility] 01-21-2013 influenza virus vacc ine, unspecified formulation RICHIE HEREDIA DO [facility] Payers Date Payer Category Payer Unknown [id number] 2023 Private Health Insurance [id number] 2023 Private Health Insurance [id number] 2023 Self-pay [id number] 2023 Private Health Insurance [id number] 2023 Unknown [id number] 2023 Medicaid [id number] 2022 Medicaid [id number] 2021 Medicare UHC MEDICARE UHC DUAL COMPLETE HMO SNP [id number] 2021-Present [phone] [place] [address] Medicare [id number] 2021 Medicare UHC MEDICARE UHC DUAL COMPLETE HMO SNP [id number] 2021-Present [phone] [address] [place] [address] Medicare [id number] 2021 Unknown [id number] 2021 Unknown [id number] 2013 Medicare [id number] 1992 Unknown [facility]REF [facility] [id number] 1992-2012 PPO [id number]. [id number] 1951 Unknown [id number] 840.1.342614.3.579.2. 1950 Unknown [id number] .840.1.989097.3.579.2. 1950 Unknown [id number] .840.1.513138.3.579.2. 62 1951 Unknown [id number] .0.1.679407.3.579.2. 1950 Unknown [id number] 2.16.840.1.383927.3.579.2. 627 1951 Unknown [id number] 2.16.840.1.880138.3.579.2. 1951 Unknown [id number] 2.16.840.1.681075.3.579.2. 1950 Unknown [id number] 2.16.840.1.559925.3.579.2. 1951 Unknown [id number] 2.16.840.1.385355.3.579.2. 1951 Unknown [id number] 2.16.840.1.370914.3.579.2. 1951 Unknown [id number] 2.16.840.1.276469.3.579.2. 1951 Unknown [id number] 2.16.840.1.284112.3.579.2. 1951 Unknown [id number] 2.16.840.1.048665.3.579.2. 1950 Unknown [id number] 2.16.840.1.089851.3.579.2. 1951 Unknown [id number] 2.16.840.1.293546.3.579.2. 627 Unknown [id number] Unknown [id number] 2.16.840.1.724520.3.579.2. 462 Unknown [id number] 2.16.840.1.172705.3.579.2. 462 Unknown [id number] 2.16.840.1.546093.3.579.2. 462 Unknown [id number] 2.16.840.1.621494.3.579.2. 462 Unknown [id number] 2.16.840.1.875273.3.579.2. 462 Unknown [id number] 2.16.840.1.397891.3.579.2. 462 Unknown [id number] 2.16.840.1.436862.3.579.2. 462 Unknown [id number] 2.16.840.1.847160.3.579.2. 462 Unknown [id number] 2.16.840.1.244553.3.579.2. 462 Unknown [id number] 2.16.840.1.550693.3.579.2. 462 Unknown [id number] 2.16.840.1.342168.3.579.2. 462 Unknown [id number] 2.16.840.1.158234.3.579.2. 462 Unknown [id number] 2.16.840.1.165073.3.579.2. 462 Unknown [id number] 2.16.840.1.784195.3.579.2. 462 Unknown [id number] 2.16.840.1.924770.3.579.2. 462 Unknown [id number] 2.16.840.1.248742.3.579.2. 462 Unknown [id number] 2.16.840.1.247659.3.579.2. 462 Social History Date Type Detail Facility Tobacco smoking status NHIS Unknown if ever smoked [facility] Start: 1950 Sex Assigned At Not on file [facility] Start: 02-06-2020 Heavy tobacco smoker (finding) [facility] Sex Assigned At [facility] Start: 05-23-2021 End: 01-29-2023 Tobacco smoking status NHIS Unknown if ever smoked [facility] Start: 07-16-2019 None [facility] Start: 07-16-2019 With Family[facility] Start: 11-16-2019 Cigarettes [facility] Start: 1950 Sex Assigned At Female [facility] Start: 09-09-2021 Tobacco smoking status NHIS Smokes tobacco daily [facility] Start: 09-09-2021 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 intake 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) [facility] Start: 08-30-2021 End: 09-09-2021 Exposure to SARS-CoV-2 (event) Not sure [facility] Start: 09-09-2021 Tobacco use and exposure Smokeless tobacco non-user [facility] Start: 08-31-2022 End: 08-07-2024 Tobacco smoking status Light tobacco smoker (finding) [facility] Start: 06-10-2023 End: 06-01-2024 Tobacco smoking status Ex-smoker (finding) [facility] Start: 05-01-2014 End: 06-01-2024 Sex Female (finding) [facility] Medical Equipment Procedure Code Equipment Code Equipment [...] cholecystectomy with exploration of common bile duct CLIP,HEMOLOEnvision Blue Green [place]UNDRA FDA Start: 11-16-2019 Total cholecystectomy with exploration of common bile duct CLIP,HEMYOGI INFERNO FITNESS [place] [employer] Start: 11-16-2019 Total cholecystectomy with exploration of common bile duct CLIP,HEMYOGI Join The Wellness Team [place]A FDA Start: 11-16-2019 Total cholecystectomy with exploration of common bile duct CLIP,HEMYOGI Join [employer] Wellness Team [place] FDA Start: 11-16-2019 Total cholecystectomy with exploration of common bile duct CLIP,FestEvoYOGI Join The Wellness Team [place] FDA Start: 11-16-2019 Total cholecystectomy with exploration of common bile duct CLIP,FestEvoBIANCANoribachiSTEVEN FDA Start: 11-16-2019 Total cholecystectomy with exploration of common bile duct CLIP,FestEvoBIANCANoribachiSTEVEN FDA Start: 11-16-2019 NOVOFINE 32G NEEDLES Start: 10-25-2018 NOVOFINE 32G NEEDLES Start: 10-25-2018 NOVOFINE 32G NEEDLES Start: 10-25-2018 NOVOFINE 32G NEEDLES Start: 10-25-2018 NOVOFINE 32G NEEDLES, one daily, 0 Refill(s) Start: 10-25-2018 See Instructions , dispense #60 Novofine 32 G pen needles; 11 refills; dx E11.9, # 60 EA, 11 Refill(s), Pharmacy: [facility]/pharmacy #3321, 153.5, cm, 04/17/19 16:11:00 EST, Height, 136.1, kg, 04/17/19 16:11:00 EST, Dosing Weight Start: 05-10-2019 See Instructions , dispense #60 Novofine 32 G pen needles; 11 refills; dx E11.9, # 60 EA, 11 Refill(s), Pharmacy: [facility]/pharmacy #3321, 153.5, cm, 04/17/19 16:11:00 EST, Height, 136.1, kg, 04/17/19 16:11:00 EST, Dosing Weight Start: 05-10-2019 See Instructions , dispense #60 Novofine 32 G pen needles; 11 refills; dx E11.9, # 60 EA, 11 Refill(s), Pharmacy: [facility]/pharmacy #3321, 153.5, cm, 04/17/19 16:11:00 EST, Height, 136.1, kg, 04/17/19 16:11:00 EST, Dosing Weight Start: 05-10-2019 See Instructions , dispense #60 Novofine 32 G pen needles; 11 refills; dx E11.9, # 60 EA, 11 Refill(s), [facility], 153.5, cm, 04/17/19 16:11:00 EST, Height, 136.1, kg, 04/17/19 16:11:00 EST, Dosing Weight Start: 05-10-2019 See Instructions , dispense #60 Novofine 32 G pen needles; 11 refills; dx E11.9, # 60 EA, 11 Refill(s), [facility], 153.5, cm, 04/17/19 16:11:00 EST, Height, 136.1, kg, 04/17/19 16:11:00 EST, Dosing Weight Start: 05-10-2019 See Instructions , dispense #60 Novofine 32 G pen needles; 11 refills; dx E11.9, # 60 EA, 11 Refill(s), [facility], 153.5, cm, 04/17/19 16:11:00 EST, Height, 136.1, kg, 04/17/19 16:11:00 EST, Dosing Weight Start: 05-10-2019 See Instructions , dispense #60 Novofine 32 G pen needles; 11 refills; dx E11.9, # 60 EA, 11 Refill(s), [facility], 153.5, cm, 04/17/19 16:11:00 EST, Height, 136.1, kg, 04/17/19 16:11:00 EST, Dosing Weight Start: 05-10-2019 See Instructions , dispense #60 Novofine 32 G pen needles; 11 refills; dx E11.9, # 60 EA, 11 Refill(s), [facility], 153.5, cm, 04/17/19 16:11:00 EST, Height, 136.1, kg, 04/17/19 16:11:00 EST, Dosing Weight Start: 05-10-2019 See Instructions , dispense #60 Novofine 32 G pen needles; 11 refills; dx E11.9, # 60 EA, 11 Refill(s), [facility], 153.5, cm, 04/17/19 16:11:00 EST, Height, 136.1, kg, 04/17/19 16:11:00 EST, Dosing Weight Start: 05-10-2019 See Instructions , dispense #60 Novofine 32 G pen needles; 11 refills; dx E11.9, # 60 EA, 11 Refill(s), [facility], 153.5, cm, 04/17/19 16:11:00 EST, Height, 136.1, kg, 04/17/19 16:11:00 EST, Dosing Weight Start: 05-10-2019 See Instructions , dispense #60 Novofine 32 G pen needles; 11 refills; dx E11.9, # 60 EA, 11 Refill(s), [facility], 153.5, cm, 04/17/19 16:11:00 EST, Height, 136.1, kg, 04/17/19 16:11:00 EST, Dosing Weight Start: 05-10-2019 See Instructions , dispense #60 Novofine 32 G pen needles; 11 refills; dx E11.9, # 60 EA, 11 Refill(s), Pharmacy: [facility] #3321, 153.5, cm, 04/17/19 16:11:00 EST, Height, 136.1, kg, 04/17/19 16:11:00 EST, Dosing Weight Start: 05-10-2019 See Instructions , dispense #60 Novofine 32 G pen needles; 11 refills; dx E11.9, # 60 EA, 11 Refill(s), Pharmacy: [facility] #3321, 153.5, cm, 04/17/19 16:11:00 EST, Height, 136.1, kg, 04/17/19 16:11:00 EST, Dosing Weight Start: 05-10-2019 Goals Date Patient Goal Desired Activity /State Functional Status Date Assessment Result Facility 03-27-2024 Functional Status Awake [facility] [place] 03-27-2024 Functional Status Juliet fraser [facility] 01-30-2023 Functional status Bathroom Privilege [facility] Work Phone: 01-29-2023 Functional status Chair [facility] Work Phone: Mental Status Date Assessment Result Facility 06-01-2024 Cognitive function Level Of Cons ciousness Awake;Alert;Appropriate;Follow s Commands [facility] Work Phone: 03-27-2024 Mental Status Orientation Oriented x 4 [facility] 03-27-2024 Mental Status [facility] 01-30-2023 Cognitive function Voice/Name [facility] Work Phone: 01-29-2023 Cognitive function Voice/Name [facility] Work Phone: 10-20-2022 Cognitive function Level Of Cons ciousness Awake;Alert;Appropriate;Follow s Commands [facility] Work Phone: 05-23-2021 Cognitive function Voice/Name [facility] Work Phone: Clinical Notes 01-15-2021 to [...] Locations *1: This test was performed at: [facility], [address] [place] [address], [address]- , [facility] 06-01-2024 Radiology Diagnostic study note [facility] [address] [place] [address] Chest 1 View (Portable) MR#: [id number] Acct: [id number] Name: DAVID STREET Rep #: [id number] : 1950 F 73 From: Jacklyn Jackson MD PCP: Dr. Richie Heredia DO Status: REG ER Study:Chest 1 View (Portable) Date of Exam: 06/01/24 Exam# [id number] Ordering Dr: Ramesh Ryan DO EXAM: XR Chest, 1 View CLINICAL INDICATION: WEAKNESS TECHNIQUE: Frontal view of the chest. COMPARISON: No relevant prior studies available. FINDINGS: LUNGS AND PLEURAL SPACES: Unremarkable. No consolidation. No pneumothorax. HEART: Unremarkable. No cardiomegaly. MEDIASTINUM: Unremarkable. Normal mediastinal contour. BONES/JOINTS: Unremarkable. No acute fracture. RAD/Chest 1 View (Portable) IMPRESSION: No acute cardiopulmonary process. Reading [facility]: [facility] CC: Dr. Darius Ryan DO; Dr. Richie Heredia DO ~ Tax Intern: Signed [facility] 04-22-2024 Note . MICRO - Microbiology PROCEDURE: [...] Locations *1: This test was performed at: [facility], [address] [place] [address], [address] 03-28-2024 Hospital Discharge instructions Patient Education [...] If needed, more treatment may be started. 3960-4402 [employer]. [address] [place] [address]. All rights reserved. This information is not intended as a substitute for professional medical care. Always follow your healthcare professional's instructions. Follow Up Care 03/27/2024 22:02:03 With:RICHIE HEREDIA Address: [address] [facility] [place] [phone] Business (1) When:3-5 days Comments:Schedule appointment for follow-up if symptoms are not improving.Push fluids.Use Tylenol or Advil for fever and discomfort as needed.Use Pyridium as prescribed to help with the urinary discomfort and antibiotic (Macrobid) to treat the urinary tract infection.Return to the ED if symptoms worsen. [facility] 03-27-2024 Emergency department Discharge summary Discharge Instructions [...] with RICHIE HEREDIA When:Within 3-5 days Where:[address] [place] [phone] Business (1) Additional Information: Schedule appointment for [...] If needed, more treatment may be started. 3345-3410 [employer]. [address] [place] [address], [place] [address]. All rights reserved. This information is not intended as a substitute for professional medical care. Always follow your healthcare professional's instructions. Additional Information VACCINATE! IT SAVES LIVES! Members of the community who have not yet received the COVID-19 vaccine and would like to receive it can visit one of [facility] vaccine clinics. There are many vaccine clinic locations within the [facility]. For locations and available times, please visit [email or web address] [email or web address] It is important to note that some COVID mobile vaccine clinics are held outdoors and may be canceled in rainy or stormy conditions. To learn more about pediatric vaccinations (ages 5-11), we invite you to visit the [facility] webpage. https://[email or web address]/p ages/6626-Pfrvb-Smoeqwcgfvc-Freq sekgvf-Myvlv-Loweqwmha.html To learn more about the COVID-19 vaccine, we invite you to visit the CDC website for a list of frequently asked questions. https://www.cdc.gov/coronavirus/ 2019-ncov/vaccines/faq.html [facility] Patient [facility] Access Instructions: Stay connected with your healthcare team and access your personal medical information anytime with the [facility] Patient Portal. If you would like a full copy of your medical records please contact the [facility] Medical Records Department Wednesday through Wednesday between 8a.m. and 4:30p.m. Please follow the directions below to access the portal: 1.Access the email account you provided upon registration to the hospital.2.Look for an invitation email from [facility].3.Open the email and access the invitation link: Accept Invitation to [facility].Fill in the required schmidt to create your account. Sign into [email or web address] with your username and password that you [...] you will allow to register on the [facility] Patient Portal for access to your information. You can also access the [facility] Patient Portal on the PharmAssistant. Simply click on "Health Records" under "Health Data" and then click on the Briefcase logo. HOW TO SAFELY DISPOSE OF PRESCRIPTION [...] Call your local pharmacy or go to [email or web address] to find one close to you.3.Make use of household items: Use cat litter or old coffee grounds to dispose medications if other options are not available. Mix your drugs with these household products, seal them in an airtight container and throw it into the garbage. Call [facility]: [phone] to be sure your drugs can be [...] aware that I should contact my doctor. Patient/Legal Intern Signature: Date/Time: Relationship to Patient: Witness Name/Signature: Date/Time: [facility] 11-28-2023 Note . MICRO - Microbiology PROCEDURE: [...] organisms seen. SUSCEPTIBILITY RESULTS Staphylococcus aureus Antibiotic TWYLA Dilut TWYLA Inter Ampicillin 8 Beta Lactamase Positive Ampicillin/ <=8/4 Susceptible Sulbactam Azithromycin >4 Resistant Ciprofloxacin <=1 Susceptible Clindamycin <=0.25 Susceptible Erythromycin >4 Resistant Levofloxacin <=1 Susceptible Oxacillin 0.5 Susceptible Penicillin >2 Beta Lactamase Positive Tetracycline <=4 Susceptible Trimethoprim/ <=0.5/9.5 Susceptible Sulfa Vancomycin 0.5 Susceptible Performing Locations *1: This test was performed at: [facility], [address] [place] [address], [address]- , [facility] 09-01-2023 Note [facility] Medical Records Department [address] [place] [address] Discharge Summary 09/01/23 1600 MR#: [id number] Acct: [id number] Name: DAVID STREET Rep #: [id number] : 1950 73 From: Mejia Grissom DO PCP: Dr. Richie Heredia DO Status:ADM IN Location: [place] [address] Providers Date of Admission: 08/26/23 Primary Care [...] continue VTE prophylaxis: -Heparin SC Disposition: to [facility] Medications at Discharge Home Medications aspirin [...] weak and debilitated will be going to [facility] in stable condition. Weight / BMI Weight [...] dose statin thera (more content not included)... [facility] 04-14-2023 Note . MICRO - Microbiology PROCEDURE: Urine Culture [*1] SOURCE: Urine, Clean Catch BODY SITE: COLLECTED DATE/TIME: 04/13/2023 17:11 EST RECEIVED DATE/TIME: 04/13/2023 19:06 EST START DATE/TIME: 04/13/2023 19:06 EST FREE TEXT SOURCE: FINAL REPORTS Final Report [] Verified Date/Time/Personnel: 04/14/2023 14:22 EST <10,000 cfu/ml. No Significant growth. Sensitivity not indicated. Performing Locations *1: This test was performed at: [facility], [address] [place] [address], [facility] , [facility] ([place]) 03-20-2023 Note . MICRO - Microbiology PROCEDURE: [...] Locations *1: This test was performed at: [facility], [address] [place] [address], [address] , [facility] ([place]) 01-30-2023 Progress note Note Date/Time January 30, 2023 11:24am [facility] Medical Records Department [address] [place] [address] Progress Note - Cardiology 01/30/231121 MR#: [id number] Acct: [id number] Name: YENIFERDAVID D Rep #:[id number] : 1950 72 From: Michael Saravia MD PCP: Dr. Richie Heredia, DO Status:ADM IN Location: [place] [address] Subjective Subjective Denies any complaints. Objective Data [...] 76.0 H, Lymph % (Auto) 14.6 L, Citrus % (Auto) 7.2, Eos % (Auto) 1.2, [...] 73.1 H, Lymph % (Auto) 15.4 L, Citrus % (Auto) 8.5, Eos % (Auto) 2.1, [...] 76.0 H, Lymph % (Auto) 14.6 L, Citrus % (Auto) 7.2, Eos % (Auto) 1.2, [...] 73.1 H, Lymph % (Auto) 15.4 L, Citrus % (Auto) 8.5, Eos % (Auto) 2.1, [...] Cosigner Signature (if applicable): CC: ~ Signed [facility] Work Phone: 1(457) 474-405512-09-2023 Discharge summary Author Maximilian Kitchen [facility] January 30, 2023 11:00am Note Date/Time January 30, 2023 1 0:56am [facility] Medical Records Department [address] [place] [address] Discharge Summary 01/30/23 1056 MR#: [id number] Acct: [id number] Name: DAVID STREET Rep #:[id number] : 1950 72 From: Maximilian Kitchen MD PCP: Dr. Richie Heredia DO Status:ADM IN [facility] Prov[facility] Date of Admission: 01/27/23 [...] 76.0 H, Lymph % (Auto) 14.6 L, Citrus % (Auto) 7.2, Eos % (Auto) 1.2, [...] 73.1 H, Lymph % (Auto) 15.4 L, Citrus % (Auto) 8.5, Eos % (Auto) 2.1, [...] Self Care Charges/Coding Visit Charges Inpatient E&M: 13004 Disch Hosp >30min 01/30/23 1100 <Electronically signed by Maximilian Kitchen MD> Cosigner Signature (if applicable): CC: Dr. Maximilian Kitchen MD; Dr. Richie Heredia DO~ Signed [facility] Work Phone: 1(484) 420-671012-09-2023 Progress note Author Maximilian Kitchen [facility] January 30, 2023 10:55am Note Date/Time January 30, 2023 8 :09am [facility] Medical Records Department [address] [place] [address] Progress Note - Hospitalist 01/30/23807 MR#: [id number] Acct: [id number] Name: DAVID STREET Rep #:[id number] : 1950 72 From: Maximilian Kitchen MD PCP: Dr. Richie Heredia DO Status:ADM IN Location: [place] [address] Reason for Visit Reason for Visit: Diagnoses [...] 76.0 H, Lymph % (Auto) 14.6 L, Citrus % (Auto) 7.2, Eos % (Auto) 1.2, [...] 73.1 H, Lymph % (Auto) 15.4 L, Citrus % (Auto) 8.5, Eos % (Auto) 2.1, [...] to acute acute cystitis [facility] 1. Sepsis secondary [...] 35 minutes Charges/Coding Visit Charges Inpatient E&M: 54075 Subs Hosp L2 01/30/23 1055 <Electronically signed by Maximilian Kitchen MD> Cosigner Signature (if applicable): CC: ~ Signed [facility] Work Phone: 1(309) 370-938312-08-2023 Progress note Author Maximilian Kitchen [facility] January 29, 2023 11:05am Note Date/Time January 29, 2023 7 :49am [facility] Medical Records Department [address] [place] [address] Progress Note - Hospitalist 01/29/23 0744 MR#: [id number] Acct: [id number] Name: YENIFERDAVID D Rep #:[id number] : 1950 72 From: Maximilian Kitchen MD [...] 50 minutes Charges/Coding Visit Charges Inpatient E&M: 21275 Subs Hosp L3 01/29/23 1105 <Electronically signed by Maximilian Kitchen MD> Cosigner Signature (if applicable): CC: ~ Signed [facility] Work Phone: 1(723) 128-804912-07-2023 Consult note Author Michael Saravia [facility] January 28, 2023 2:56pm Note Date/Time January 28, 2023 2 :56pm [facility] Medical Records Department [address] [place] [address] Consultation - Cardiology 01/28/23 1450 MR#: [id number] Acct: [id number] Name: DAVID STREET Rep #:[id number] : 1950 72 From: Michael Saravia MD [...] or shortness of breath. Denies any palpitations. [facility] Medical History Diabetes mellitus type 2 in [...] 78.3 H, Lymph % (Auto) 12.9 L, Citrus % (Auto) 7.5, Eos % (Auto) 0.4, [...] 78.3 H, Lymph % (Auto) 12.9 L, Citrus % (Auto) 7.5, Eos % (Auto) 0.4, [...] Ryan DO; Dr. Richie Heredia DO~ Signed [facility] Work Phone: 1(124) 837-868612-07-2023 Progress note Author Maximilian Kitchen [facility] January 28, 2023 9:18am Note Date/Time January 28, 2023 9 :11am [facility] Medical Records Department [address] [place] [address] Progress Note - Hospitalist 01/28/23 0911 MR#: [id number] Acct: [id number] Name: DAVID STREET Rep #:[id number] : 1950 72 From: Maximilian Kitchen MD [...] Sl. Cloudy, Urine pH 7.0, Ur Specific Cook Sta 1.005, Urine Protein 30 H, Urine Glucose [...] 95.3 H, Lymph % (Auto) 3.0 L, Citrus % (Auto) 0.7, Eos % (Auto) 0.3, [...] 78.3 H, Lymph % (Auto) 12.9 L, Citrus % (Auto) 7.5, Eos % (Auto) 0.4, [...] documentation, 55 minutes Charges/Coding Procedures Hospitalists Procedures: 99909 Critial Care 1st Hr 01/28/23 0918 <Electronically signed by Maximilian Kitchen MD> Cosigner Signature (if applicable): CC: ~ Signed [facility] Work Phone: 1(894) 468-233312-07-2023 Discharge summary Author Darius Ryan [facility] January 28, 2023 8:30am Note Date/Time January 27, 2023 8 :51am [facility] Medical Records Department [address] [place] [address] Emergency Department Summary 01/27/23 MR#: [id number] Acct: [id number] Name: DAVID STREET Rep #:[id number] : 1950 72 From: Darius Charlton PCP: [...] but does not wear home oxygen. PFSH [facility] Medical History Diabetes mellitus type 2 in [...] 95.3 H Lymph % (Auto) 3.0 L Citrus % (Auto) 0.7 Eos % (Auto) 0.3 [...] Sl. Cloudy Urine pH 7.0 Ur Specific Cook Sta 1.005 Urine Protein 30 H Urine Glucose [...] febrile illness Disposition Disposition: Acute Care Hospital [facility] What to do if you have Problems For any increased pain, shortness of breath, bleeding, nausea or vomiting, chestpain, or any unexpected problems, contact your Primary Care Provider. Call [facility] ([phone]) or report to the closest Emergency Room. Call 911 if necessary. 01/28/23 0830 <Electronically signed by Darius Ryan DO> Cosigner Signature (if applicable): CC: Dr. Richie Heredia DO ~ Signed [facility] Work Phone: 1(225) 319-132412-06-2023 Progress note Author Maximilian [facility] January 27, 2023 3:38pm Note Date/Time January 27, 2023 3 :39pm [facility] Medical Records Department [address] [facility] [place] [address] Progress Note - Sepsis 01/27/23 1537 MR#: [id number] Acct: [id number] Name: DAVID STREET Rep #:[id number] : 1950 72 From: Maximilian Kitchen MD PCP: Dr. Richie Heredia DO Status:ADM IN Location: [place] [address] Sepsis Attestation Sepsis Alert: Yes Date exam [...] Cosigner Signature (if applicable): CC: ~ Signed [facility] Work Phone: 1(250) 797-398012-06-2023 Procedure [facility] 01-27-2023 History and physical note Author Maximilian [facility] January 27, 2023 12:14pm Note Date/Time January 27, 2023 1 1:26am [facility] Medical Records Department [address] [place] [address] H&P Exam - Hospitalist 01/27/23 1126 MR#: [id number] Acct: [id number] Name: DAVID STREET Rep #:[id number] : 1950 72 From: Maximilian Kitchen MD [...] to intensive care unit for further management [facility] Medical History Diabetes mellitus type 2 in [...] Sl. Cloudy, Urine pH 7.0, Ur Specific Cook Sta 1.005, Urine Protein 30 H, Urine Glucose [...] 95.3 H, Lymph % (Auto) 3.0 L, Citrus % (Auto) 0.7, Eos % (Auto) 0.3, [...] responsive hypotension Charges/Coding Visit Charges Inpatient E&M: 34490 Init Hosp L3 Procedures Hospitalists Procedures: 02642 Advncd Care Plan 30 Min 01/27/23 1211 [...] MD; Dr. Richie Heredia DO ~* Signed [facility] Work Phone: 1(113) 325-254308-15-2022 Miscellaneous Notes* Telephone Encounter - Marium Borrero - 10/06/2021 8:19 AM EDT 1st attempt to contact patient to inform clearance was not met and procedure tomorrow in [place] with Betts had to be cancelled until the clearance is met and approved. LV to contact me directly if any questions. Marium Gissell * Telephone Encounter - Demetrius Mccarty - 10/01/2021 9:24 AM EDT Cardiac clearance obtained and scanned into EPIC * Telephone Encounter - Marium Borrero - 09/10/2021 9:45 AM EDT 10/07 colon/egd lodi [facility] NoteHNO ID: [id number] Author: Mary Thomas PA-C Service: ? Author Type: Physician Field Cane Scaler Type: Progress Notes Filed: 09/16/2021 3:45 PM [...] for her chronic medical conditions, and with [facility] for her heart issues, Dr. [...] entered by the nurse and reviewed by nv Nursing Notes: Marium Borrero 09/09/2021 2:57 PM [...] NOTES cold feet, d (more content not included)...[facility]07-19-2022 Nurse Note* Marium Borrero - 09/09/2021 2:54 [...] Colonoscopy: 1993 Marium Borrero [facility]Day[facility]2022 Miscellaneous Notes* Telephone Encounter - Marium Borrero - 09/09/2021 2:52 PM EDT Patient is needing pulmonary and cardiac clearance Patient sees Dr. Montiel at the [facility] and sees Dr. Hurley at [facility] Patient is scheduled for both upper and lower scope in [place] with Dr. Betts on 09/23 * Telephone Encounter - Marium Borrero - 09/09/2021 2:50 PM EDT ENTERED OP TIME * Addendum Note - Marium Borrero - 09/09/2021 2:50 PM EDT Addended by: MARIUM BORRERO on: 09/09/2021 02:50 PM Modules accepted: Orders * Telephone Encounter - Marium Borrero - 09/09/2021 2:46 PM EDT 09/23 COLON EGD LODI documented in [facility]Day[facility] History of Present illness Narrative* Mary Thomas [...] for her chronic medical conditions, and with [facility] for her heart issues, Dr. [...] patient was offered a [facility]. I have counseled the patient regarding [...] mail. Mary Thomas PA-C documented in [facility]Day[facility]11[facility] Hospital Discharge instructions Patient Education 01/15/2021 12:54:50 COVID-19 Prevent the Spread of COVID-19 If You Are Sick (07/11/2019)(CUSTOM) Prevent the Spread of COVID-19 If You Are Sick Accessible version: https://www.cdc.gov/coronavirus/2019-ncov/cc-qpg-ohh-sick/czewy-huta-dtxe.html If you are sick with COVID-19 or [...] Animals if you have questions about pets: https://www.cdc.gov/coronavirus/2019ncov/faq.html#UEDEY88xqelhfg Monitor your symptoms. Common symptoms of COVID-19 [...] and need to call 911, notify the operator lights that you have or think you might [...] clean your hands with an alcohol-based hand home health lpn that contains at least 60% alcohol. Clean your hands often. Wash your hands often with soap and water for at least 20 seconds. This is especially important after blowing your nose, coughing, or sneezing; going to the bathroom; and before eating or preparing food. Use hand home health lpn if soap and water are not available. Use an alcohol-based hand home health lpn with atleast 60% alcohol, covering all surfaces [...] and water or put them in the human insights lead ads marketing. Clean all high-touch surfaces everyday. Clean and [...] or body fluids on them. Use household dietary assistant and disinfectants. Clean the area or item [...] Care 01/15/2021 11:48:52 With:RICHIE HEREDIA DO Address: [phone] When:3-5 days [facility] Evaluation + Plan note Future Appointments Appointment Date:01/21/2021 02:30:00 PM Scheduled Provider:RICHIE HEREDIA DO Location:[facility] Appointment Type:PC Office Procedure OMT Future Scheduled Tests Laboratory* COVID-19 Only (AO) 01/14/21 Radiology* XR Hip Minimum 2 Views Left 11/19/20 * CT Thorax High Resolution w/o Contrast 01/25/20 [facility] Evaluation + Plan note Future Appointments Appointment Date:01/21/2021 12:00:00 PM Scheduled Provider:RICHIE HEREDIA DO Location:[facility] Appointment Type:Telehealth Future Scheduled Tests Laboratory* COVID-19 Only (AO) 01/14/21 Radiology* XR Hip Minimum 2 Views Left 11/19/20 * CT Thorax High Resolution w/o Contrast 01/25/20 [facility] Evaluation + Plan note Future Appointments Appointment Date:05/19/2021 03:30:00 PM Scheduled Provider:RICHIE HEREDIA DO Location:[facility] Appointment Type:PC OV Appointment Date:06/03/2021 02:30:00 PM Scheduled Provider: Location:[facility] Appointment Type:BD Bone Density DEXA Axial Skeleton Appointment Date:06/03/2021 03:30:00 PM Scheduled Provider: Location:[facility] Appointment Type:MA Mammogram Screening Bilateral w/ Glenn Appointment Date:07/11/2021 03:30:00 PM Scheduled Provider:RICHIE HEREDIA DO [facility] Appointment Type:PC Wellness Medicare Future Scheduled Tests Laboratory* COVID-19 Only (AO) 01/14/21 Radiology* BD Bone Density DEXA Axial Skeleton 06/03/21 * XR Hip Minimum 2 Views Left 11/19/20 * MA Mammo Screening Bilateral w/ Glenn 06/03/21 [facility] Evaluation + Plan note Future Appointments Appointment Date:06/18/2021 02:30:00 PM Scheduled Provider:RICHIE HEREDIA DO Location[facility] Appointment Type:PC OV Appointment Date:07/11/2021 03:30:00 PM Scheduled Provider:RICHIE HEREDIA DO Location:[facility] Appointment Type:PC Wellness Medicare Future Scheduled Tests Laboratory* COVID-19 Only (AO) 01/14/21 Radiology* BD Bone Density DEXA Axial Skeleton 06/03/21 * XR Hip Minimum 2 Views Left 11/19/20 [facility] Evaluation + Plan note Future Appointments Appointment Date:09/04/2021 02:00:00 PM Scheduled Provider:RICHIE HEREDIA DO Location:[facility] Appointment Type:PC OV Appointment Date:10/24/2021 02:00:00 PM Scheduled Provider: Location:[facility] Appointment Type:COVID AMB VACCINE Future Scheduled Tests Laboratory* COVID-19 Only (AO) 01/14/21 Radiology* XR Hip Minimum 2 Views Left 11/19/20 [facility] Evaluation + Plan note Future Appointments Appointment Date:04/23/2022 03:30:00 PM Scheduled Provider:RICHIE HEREDIA DO Location:[facility] Appointment Type:PC OV Appointment Date:05/27/2022 04:00:00 PM Scheduled Provider:RICHIE HEREDIA DO Location:[facility] Appointment Type:PC OV Future Scheduled Tests Radiology* XR Chest 2 Views (PA & Lateral) 04/08/22 [facility] Evaluation + Plan note Future Appointments Appointment Date:05/27/2022 04:00:00 PM Scheduled Provider:RICHIE HEREDIA DO Location:[facility] Appointment Type:PC OV Future Scheduled Tests Radiology* XR Chest 2 Views (PA & Lateral) 04/08/22 [facility] Evaluation + Plan note Future Appointments Appointment Date:10/20/2022 03:30:00 PM Scheduled Provider: Location:[facility] Appointment Type:VL AOH - Venous US/Doppler One Leg (for Appointment Date:11/13/2022 04:00:00 PM Scheduled Provider:RICHIE HEREDIA DO Location:[facility] Appointment Type:PC OV Appointment Date:01/20/2023 04:00:00 PM Scheduled Provider:RICHIE HEREDIA DO Location:[facility] Appointment Type:PC OV Future Scheduled Tests Radiology* XR Chest 2 Views (PA & Lateral) 04/08/22 [facility] Evaluation + Plan note Future Appointments Appointment Date:04/16/2023 03:00:00 PM Scheduled Provider:RICHIE HEREDIA DO Location:[facility] Appointment Type:PC OV Future Scheduled [...] Chest 2 Views (PA & Lateral) 04/08/22 [facility] Evaluation + Plan note Future Appointments Appointment Date:04/16/2023 03:00:00 PM Scheduled Provider:RICHIE HEREDIA DO Location:[facility] Appointment Type:PC OV Diagnostic Tests Pending * Urine Culture 04/13/23 Future Scheduled Tests Laboratory* Basic Metabolic Panel 01/26/23 * Urinalysis 03/03/23 * Thyroid Stimulating Hormone 01/26/23 * Free T4 01/26/23 * Vitamin B12 Level 01/26/23 * Urine Culture 03/03/23 * Albumin/Creatinine Ratio, Random Urine 12/21/22 Radiology* NM Myocardial Spect Rest/Stress 12/21/22 * XR Chest 2 Views (PA & Lateral) 02/09/23 [facility] Evaluation + Plan note Future Appointments Appointment Date:09/01/2023 03:30:00 PM Scheduled Provider: Location:[facility] Appointment Type:MRI Brain w/o Contrast Appointment Date:09/09/2023 04:00:00 PM Scheduled Provider:RICHIE HEREDIA DO Location:[facility] Appointment Type:PC OV Appointment Date:10/11/2023 04:00:00 PM Scheduled Provider:RICHIE HEREDIA DO Location:[facility] Appointment Type:PC OV Appointment Date:11/12/2023 04:00:00 PM Scheduled Provider:RICHIE HEREDIA DO Location:[facility] Appointment Type:PC Wellness Medicare Appointment Date:12/08/2023 04:30:00 PM Scheduled Provider:RICHIE HEREDIA DO Location:[facility] Appointment Type:PC OV Future Scheduled Tests Radiology* MRI Brain w/o Contrast 09/01/23 * NM Myocardial Spect Rest/Stress 12/21/22 * XR Chest 2 Views (PA & Lateral) 02/09/23 [facility] Evaluation + Plan note Future Appointments Appointment Date:12/29/2023 03:30:00 PM Scheduled Provider:RICHIE HEREDIA DO Location:[facility] Appointment Type:PC OV Future Scheduled Tests Laboratory* Basic Metabolic Panel 11/29/23 Radiology* MRI Brain w/o Contrast 09/01/23 * NM Myocardial Spect Rest/Stress 12/21/22 * XR Chest 2 Views (PA & Lateral) 02/09/23 * XR Hip Bilateral w/Pelvis Minimum 5 Views 11/25/23 * XR Spine Lumbar W/Obliques 4 Views 11/25/23 [facility] Evaluation + Plan note Future Appointments Appointment Date:03/30/2024 03:30:00 PM Scheduled Provider:RICHIE HEREDIA DO Location:[facility] Appointment Type:PC OV Controlled Medication Future Scheduled [...] XR Spine Lumbar W/Obliques 4 Views 11/25/23 [facility] Evaluation + Plan note Future Appointments Appointment Date:07/03/2024 02:30:00 PM Scheduled Provider:RICHIE HEREDIA DO Location:[facility] Appointment Type:PC OV Future Scheduled Tests [...] XR Spine Lumbar W/Obliques 4 Views 11/25/23 [facility] Evaluation + Plan note Future Appointments Appointment Date:07/03/2024 02:30:00 PM Scheduled Provider:RICHIE HEREDIA DO Location:[facility] Appointment Type: OV Future Scheduled Tests [...] XR Spine Lumbar W/Obliques 4 Views 11/25/23 [facility] Evaluation + Plan note Future Appointments Appointment Date:08/31/2024 11:00:00 AM Scheduled Provider: Location:[facility] Appointment Type:PC Nurse Lab Appointment Date:09/20/2024 02:30:00 PM Scheduled Provider:RICHIE HEREDIA DO Location:[facility] Appointment Type: OV Follow Up Future Scheduled [...] Deep Aerobe/Anaerobe w Gram Stain 02/25/24 * [facility] Lab Send out (Blood Specimens) 07/03/24 Radiology* [...] XR Spine Lumbar W/Obliques 4 Views 11/25/23 [facility] Evaluation + Plan note Future Appointments Appointment Date:09/20/2024 02:30:00 PM Scheduled Provider:RICHIE HEREDIA DO Location:[facility] Appointment Type:PC OV Follow Up Diagnostic [...] XR Spine Lumbar W/Obliques 4 Views 11/25/23 [facility] Evaluation noteNo assessment information available [facility] Work Phone: Evaluation note* Diagnosis Screening for colon cancer- Primary Special screening for malignant neoplasms, colon Dysphagia, unspecified type History of tobacco use Personal history of tobacco use, presenting hazards to health documented [facility]* Diagnosis Encounter for screening for malignant neoplasm of colon- Primary Special screening for malignant neoplasms, colon Other dysphagia History of tobacco use Personal history of tobacco use, presenting hazards to health Dysphagia, unspecified type History of tobacco use Personal history of tobacco use, presenting hazards to health Screening for colon cancer Special screening for malignant neoplasms, colon documented in this encounter [facility]* Diagnosis Onset Date Resolution Status Acute febrile illness acute Altered mental status acute Elevated troponin acute Hypoxemia acute NSTEMI (non-ST elevated myocardial infarction) acute Sepsis acute 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 HTN (hypertension) chronic Morbid obesity chronic 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 Paroxysmal atrial fibrillation chronic [facility] Work Phone: Evaluation note* Diagnosis Onset Date Resolution Status Hypoxemia acute NSTEMI (non-ST elevated myocardial infarction) acute 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 HTN (hypertension) chronic Morbid obesity chronic 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 Paroxysmal atrial fibrillation chronic Acute febrile illness resolv ed Altered mental status resolv ed Elevated troponin resolved Sepsis resolved [facility] Work Phone: Hospital course Narrative No data available for this section [facility] Hospital Discharge instructions No data available for this section [facility] Progress note No data available for this section [facility] Reason for referral (narrative)* Outpatient Procedure (Routine) - Pending Review Specialty Diagnoses / Procedures Referred By Britney davila Referred To Contact [facility] Diagnoses Dysphagia, unspecified type History of tobacco use Procedures EGD DIAGNOSTIC EGD DIAGNOSTIC EGD DIAGNOSTIC ESOPHAGOGASTRODUODENOSC OPY TRANSORAL DIAGNOSTIC ESOPHAGOGASTRODUODENOSC OPY TRANSORAL DIAGNOSTIC ESOPHAGOGASTRODUODENOSC OPY TRANSORAL DIAGNOSTIC Mary Thomas PA-C [address] [place] [address] [facility] [address] [place] [address] Referral ID Status Reason Start Date Expiration Date Visits Requested Visits Authorized [id number] Pending Review Auto-Generat ed Referral 09/09/2021 09/09/2022 [...] PFRMD Mary Thomas PA-C [address] [place] [address] [facility] [place] [address] Referral ID Status Reason Start Date Expiration Date Visits Requested Visits Authorized [id number] Pending Review Auto-Generat ed Referral 09/09/2021 09/09/2022 1 1 [facility] for referral (narrative)No reason for referral [facility] Work Phone: Chief Complaint and Reason [...] No May 23, 2021 8:44pm Power of Splitter Hand No May 23 8:44pm Advance Directive Response Recorded Date/ Time Advance Directives No March 06, 2017 10:46pm Living Will No May 23, 2021 7:44pm Power of Splitter Hand No May 23 2 7:44pm Advance Directive Response Recorded Date/ Time Advance Directives No March 06, 2017 11:46pm Living Will No October 20 3 8:28pm Power of Splitter Hand No October 20 023 8:28pm Advance Directive Response Recorded Date/ Time Advance Directives No March 06, 2017 10:46pm Living Will No January 27 5:33pm Power of Splitter Hand No January 27, 2023 5:33pm Advance Directive Response Recorded Date/ Time Living Will Yes March 09 11:32pm Do you have a Healthcare Pow er of Splitter Hand? Yes March 09, 2024 11:32pm Name of Medical Power of Splitter Hand AMIE SQUIRES [place] March 09, 2024 11:32pm Living Will No February 20 11:00pm Do you have a Healthcare Pow er of Splitter Hand? No February 21, 2024 11:00pm Living Will Yes June 01, 2024 10:45am Do you have a Healthcare Pow er of Splitter Hand? Yes June 01, 2024 10:45am Name of Medical Power of Splitter Hand Amie Squires [place] June 01, 2024 10:45am [...] or prosecute any alcohol or drug abuse patient.[facility] the event this information is protected by the Federal Confidentiality of Alcohol and Drug Abuse Patient Records regulations: The Federal rules restrict any use of the information to criminally investigate or prosecute any alcohol or drug abuse patient.[facility] the event this information is protected by the Federal Confidentiality of Alcohol and Drug Abuse Patient Records regulations: The Federal rules restrict any use of the information to criminally investigate or prosecute any alcohol or drug abuse patient.[facility] the event this information is protected by the Federal Confidentiality of Alcohol and Drug Abuse Patient Records regulations: The Federal rules restrict any use of the information to criminally investigate or prosecute any alcohol or drug abuse patient.[facility] the event this information is protected by the Federal Confidentiality of Alcohol and Drug Abuse Patient Records regulations: The Federal rules restrict any use of the information to criminally investigate or prosecute any alcohol or drug abuse patient.[facility] Goals (unrecognized section and content) Goals may be documented in a n alternate section Care Team (unrecognized sect ion and content) Mixer Whipped Topping Relationship Specialty Start Date End Date Richie Heredia IV, MD [address] [place] [id number] PCP - General Family Practice 07/25/21 Mixer Whipped Topping Relationship Specialty Start Date End Date Richie Heredia IV, MD [address] [place] [id number] PCP - General Family Practice 07/25/21 Mixer Whipped Topping Relationship Specialty Start Date End Date Richie Heredia IV, MD [address] [place] [phone] PCP - General Family Practice 07/25/21 Team Status: Active Member Role Status Dates Dr. Nicola Johnson , DO Family Provider Active Dr. Richie Heredia , DO Primary Care Provider Active Team Status: Inactive Member Role Status Dates Dr. Richie Heredia DO Primary Care Prov ider, Attending Provider, Referring Provider Active Team Status: Active Member Role Status Dates Dr. Richie Hreedia DO Primary Care Provider Active Dr. Mejia [...] Cantu MD Other Provider Active Maeve Parra ARCHITECTURE DEPARTMENT CHAIR, ARCHITECTURE DEPARTMENT CHAIR-C Other Provider Active Dr. Maximilian Kitchen MD [...] Cantu MD Other Provider Active Maeve Parra NP, ARCHITECTURE DEPARTMENT CHAIR-C Other Provider Active Dr. Maximilian Kitchen MD [...] Personnel Name: RICHIE HEREDIA DO Address: Address: [address] [place] [address] Care Team Personnel Name: RICHIE HEREDIA DO Position: P4 Physician - Primary Care Member Role: Primary Care Physician Address: Address: [address] [place] [address] Care Team Related Persons Name: AMIE AGUIRRE Care Team Personnel Name: RICHIE HEREDIA DO Position: P4 Physician - Primary Care Member Role: Primary Care Physician Address: Address: [address] [place] [address] Care Team Related Persons Name: AMIE AGUIRRE Care Team Personnel Name: RICHIE HEREDIA DO Position: P4 Physician - Primary Care Member Role: Primary Care Physician Address: Address: [address] [place] [address] Care Team Related Persons Name: AMIE AGUIRRE [...] Richie Heredia IV, MD [address] [place] [address] Mary Thomas PA-C [address] [place] [address] Referral ID Status Reason Start Date Expiration Date Visits Re quested Visits Authorized [id number] Closed 09/09/2021 02/21/2022 1 1 Reason Comments 10/07 colon/egd lodi INFORMATION SOURCE (unrecogn ized section and content) DATE CREATED AUTHOR 11/19/2021 [facility] DATE CREATED AUTHOR AUTHOR'S ORGANIZ ATION 09/06/2023 [facility] ([place]) DATE CREATED AUTHOR AUTHOR'S ORGANIZ ATION 06/07/2024 [facility] DATE CREATED AUTHOR AUTHOR'S ORGANIZ ATION 09/10/2024 [facility] RECOR[facility] PERTAINING TO PATIENTS WHO ARE [...] BE BASED ON THE PRIMARY CLINICAL RECORDS. [employer] [facility]. provides no warranty or guarantee of the accuracy or completeness of information in this document.
--- NOTE | 2024-12-12 20:06 | PCM.HP.STD ---
HPI - General General Date of Admission: 12/12/24 Date of Service: 12/12/24 Chief Complaint: nausea, inability to tolerate PO HPI Narrative [address], is a 74 F with a history of A-fib, hypothyroidism, restless leg syndrome, COPD, tobacco use, diabetes, depression and anxiety who presented [facility] ED 12/12/2024 due to nausea, vomiting, diarrhea for the past several days and inability to tolerate p.o. In the ED temp 97.7, heart rate 89, blood pressure 148/92, respiratory rate 20 and pulse ox 100% on room air. White blood cell count 14.2, hemoglobin 15.1, BMP with potassium of 3.4, BUN of 26 and a creatinine of 1.61. Liver panel with an alk phos of 122. Lipase 15. UA does not appear overtly infectious. CT abdomen pelvis showed dilated small bowel loops with small and large bowel air-fluid levels likely representing enteric colitis or other diarrheal illness. Also incidentally found a left renal mass 2.1 x 2 x 2.3 cm possibly oncocytoma with central scar or renal cell carcinoma with central necrosis. Hospitalist contacted for admission due to patient's diarrhea and nausea and vomiting and inability to tolerate p.o. Patient evaluated with friend at bedside. Reportedly for the past 3 days patient's had nausea, vomiting, and liquid diarrhea, has some general diffuse abdominal pain but main complaint is inability to tolerate p.o. due to her nausea. Notes she gets sweats but said this has been happening for 10 years and is not new. Multiple chronic complaints like chronic shortness of breath and sometimes difficulty with urination but no other new or acute complaints. Denies any fevers at home. Denies any blood in her stool. [facility] Medical History Morbid obesity HTN (hypertension) Urinary, incontinence, stress female Tobacco abuse disorder Obesity Hypercholesteremia Peripheral vascular disease Palpitations Vertigo Osteoarthritis Diabetes mellitus type 2 in obese Paroxysmal atrial fibrillation Obstructive sleep apnea Home Medications Medication Instructions Recorded Last Taken Type aspirin 81 mg tablet,delayed 81 mg PO DAILY [employer] #90 10/25/20 01/26/23 Rx release tabs albuterol sulfate 90 mcg/actuation 2 puff inhalation Q4H SHORTNESS OF 01/27/23 01/26/23 History aerosol inhaler BREATH bumetanide 1 mg tablet 1 mg PO Q12H EDEMA 01/27/23 01/26/23 History calcium 600 mg (as 1 tab PO BID SUPPLEMENT 01/27/23 01/26/23 History carbonate)-vitamin D3 10 mcg (400 unit) tablet fluticasone fur. 100 mcg-umeclid 1 inh inhalation DAILY SHORTNESS 01/27/23 01/26/23 History 62.5 mcg-vilant 25 mcg OF BREATH/WHEEZING inhalat.powder (Trelegy Ellipta) pravastatin 40 mg tablet 40 mg PO QPM CHOLESTEROL 01/27/23 01/26/23 History metoprolol succinate 50 mg 50 mg PO DAILY blood pressure 08/28/23 Unknown History tablet,extended release 24 hr acetaminophen 500 mg tablet 1,000 mg (2 x 500 mg) PO Q8 #0 tabs 08/31/23 Unknown Rx apixaban 5 mg tablet (Eliquis) 5 mg PO BID 03/09/24 Unknown History empagliflozin 25 mg tablet 25 mg PO DAILY 03/09/24 Unknown History (Jardiance) gabapentin 400 mg capsule 400 mg PO TID 03/09/24 Unknown History levothyroxine 75 mcg tablet 75 mcg PO DAILY 03/09/24 Unknown History meloxicam 7.5 mg tablet 7.5 mg PO DAILY 03/09/24 Unknown History metformin 500 mg tablet,extended 500 mg PO DAILY 03/09/24 Unknown History release 24 hr oxycodone-acetaminophen 5 mg-325 1 tab PO Q6H PRN pain 03/09/24 Unknown History mg tablet ropinirole 0.5 mg tablet 1 mg PO QHS 03/09/24 Unknown History venlafaxine 225 mg tablet,extended 225 mg PO DAILY 03/09/24 Unknown History release 24 hr vitamin B complex 1 tab PO DAILY 06/01/24 Unknown History Allergy/AdvReac Type Severity Reaction Status Date / Time ampicillin Allergy Hives Verified 12/12/24 15:51 codeine Allergy Hives Verified 12/12/24 15:51 meperidine HCl (From Demerol) Allergy Hives Verified 12/12/24 15:51 Penicillins (PCN) Allergy Hives Verified 12/12/24 15:51 propoxyphene napsylate (From Allergy Hives Verified 12/12/24 15:51 Darvocet-N) Family History Mother Heart disease Brother Heart disease Grandfather CVA (cerebral vascular accident) Grandmother Myocardial infarction Surgical History History of laparoscopic cholecystectomy (~11/2019) History of lumpectomy of both breasts History of cardiac catheterization History of knee replacement History of hysterectomy History of tubal ligation History of appendectomy Social History Smoking Status: Current every day smoker tobacco type: cigarettes alcohol intake: never substance use type: does not use caffeine: Yes Type: coffee Number of servings: 5 ROS ROS Narrative General: Denies fever/chills, gets some sweats but that has been present for a decade HENT: Sometimes gets headaches, denies stuffy nose, denies sore throat EYES: Some chronic visual changes Resp: Has some chronic shortness of breath that has not changed Cardiac: Denies chest pain GI: Some general diffuse abdominal pain with liquid stools and nausea with vomiting : Denies changes in urination Extremity: Denies any change in swelling MSK: Often unsteady and unbalanced Neuro: Denies any numbness/tingling Heme: Denies any bleeding or bruising Skin: Denies rashes Psychiatric: No complaints voiced Vital Signs Vital Signs Vital Signs: 12/12/24 15:39 12/12/24 17:36 12/12/24 19:03 Temperature 97.7 F L Temperature Source Oral Pulse Rate 89 85 84 Respiratory Rate 20 H Blood Pressure 148/92 H 119/76 106/71 Blood Pressure Mean 110 90 82 Pulse Ox 100 97 100 Oxygen Delivery Method Room Air Weight Weight: 91.7 kg Body Mass Index (BMI) 40.8 Physical Exam Narrative General: Alert, oriented, no apparent distress HEENT: Atraumatic, normocephalic Eyes: Anicteric, normal conjunctiva, extraocular movements grossly intact Neck: Supple Respiratory: Clear to auscultation bilaterally, normal respiratory effort Cardiovascular: Regular rate and rhythm GI: Soft, slightly tender diffusely without any rebound, guarding, rigidity, nondistended Extremities: No edema Musculoskeletal: Moving all extremities Neuro: No overt focal neurological deficits Skin: No rashes appreciated Psych: Cooperative Results Lab / Micro Data 12/12/24 16:02 12/12/24 16:02 Labs: Laboratory Results - last 24 hr 12/12/24 16:02: WBC 14.2 H, RBC 4.93, Hgb 15.1 H, Hct 46.1, MCV 93.5, MCH 30.6, MCHC 32.8, RDW Std Deviation 48.7 H, RDW Coeff of Penny 14.2, Plt Count 336, MPV 12.4 H, Immature Gran % (Auto) 0.500, Neut % (Auto) 74.2 H, Lymph % (Auto) 16.1 L, [place] % (Auto) 8.0, Eos % (Auto) 0.5, Baso % (Auto) 0.7, Absolute Neuts (auto) 10.5 H, Absolute Lymphs (auto) 2.28, Nucleated RBC % 0, Differential Comment SCANNED, Platelet Estimate ADEQUATE, Sodium 138, Potassium 3.4, Chloride 94 L, Carbon Dioxide 30.1, Anion Gap 14, BUN 26 H, Creatinine 1.61 H, Estim Creat Clear Calc 31.43 L, Est GFR (MDRD) Non-Af 34 L, BUN/Creatinine Ratio 16.0, Glucose 152 H, Calcium 10.0, Total Bilirubin 0.49, AST 23, ALT 22, Alkaline Phosphatase 122 H, Total Protein 7.8, Albumin 4.2, Globulin 3.6, Albumin/Globulin Ratio 1.2, Lipase 15 12/12/24 16:23: Lactic Acid 1.5 12/12/24 16:33: Urine Color Yellow, Urine Clarity Sl. Cloudy, Urine pH 6.0, Ur Specific [place] 1.010, Urine Protein 15 H, Urine Glucose (UA) 1000 H, Urine Ketones 5 H, Urine Occult Blood Negative, Urine Nitrite Negative, Urine Bilirubin Negative, Urine Urobilinogen Normal, Ur Leukocyte Esterase Negative, Urine RBC 0-5 SEEN, Urine WBC 0-5 SEEN, Ur Squamous Epith Cells 5-10 SEEN, Urine Bacteria 1+, Urine Mucus 0 SEEN Imaging Radiology Impression Abdomen/Pelvis CT 12/12/24 16:04 IMPRESSION: 1. Left renal mass with central radiating hypodense areas, possibly an oncocytoma with central scar or renal cell carcinoma with central necrosis. 2. Dilated small bowel loops with small and large bowel air-fluid levels. Findings likely represent acute enterocolitis, an ileus or other diarrheal illness. 3. Colonic diverticulosis without signs of diverticulitis. Reading Location: [facility] Assessment & Plan Assessment/Plan (1) Nausea & vomiting: (2) Left renal mass: PLAN: Plan #Nausea/Vomiting/Diarrhea -CT scan dilated small bowel loops with small and large bowel air-fluid levels. Findings likely represent acute enterocolitis, an ileus or other diarrheal illness. -Patient had slightly more formed stool today with no blood in stool and is afebrile however unable to treat on an outpatient basis due to inability to tolerate p.o. given her nausea and vomiting so will admit for supportive care, presently do not see an indication for antibiotics however - IV fluids, antiemetics -Hold home bumetanide -Full liquid diet, advance as tolerated -Order stool studies -Monitor daily weights and I's and O's #Left renal lesion -Left renal mass with central radiating hypodense areas, possibly an oncocytoma with central scar or renal cell carcinoma with central necrosis. -Reported size 2.1 x 2 x 2.3 cm -Discussed with patient that this could be benign versus cancerous and that she will need to follow-up with urology on discharge -Will need to add urology referral when patient is discharged # CKD stage III b -Appears to be at baseline -Avoid nephrotoxic agents -Daily BMPs #Paroxysmal Atrial Fibrillation -Rate control: Metoprolol -Anticoagulation: Eliquis #Hypothyroidism -Continue Synthroid # Restless leg syndrome -continue patient's home medication regimen #Hx COPD -Continue home inhalers -Incentive spirometer #Depression/anxiety -Continue home medications #Tobacco use -Advise cessation -Nicotine replacement available if desired #Type 2 diabetes mellitus -Glucose checks and sliding scale insulin -Hold home metformin #Morbid obesity -BMI documented as 40.8 kg/m² at time of admission -Complicates treatment, prognosis, outcomes -Recommend weight loss and lifestyle changes #DVT ppx: Not indicated, patient on full dose Eliquis Gavi Bekcham MD Charges/Coding Visit Charges Inpatient E&M: 72147 Init Hosp L2
[2024-12-12] MEDS: 0.9% Normal Saline (1000mL) 1,000 ML 75 ML IV (21:14)
[2024-12-12] MEDS: Budesonide Respules 0.5 MG/2 ML AMPUL.NEB. INHALATION (21:35)
[2024-12-12] MEDS: APIXABAN 5 MG TABLET PO (22:12)
[2024-12-12] MEDS: Nicotine (PBKC) 14 MG Patch TD (22:13)
[2024-12-13] VITALS (10 sets, daily range): BP systolic 115–137; BP diastolic 50–78; PULSE 72–100; RESP 16–18; TEMP 36.4–37.2; O2SAT 92–98; BMI 38.7
--- OUTSIDE RECORDS SUMMARY | 2024-12-13 01:11 | XMS RPT_ITS | CCD ---
Author Organization [facility] CliniSyhi Care Team Providers Care Hr Operations Advisor Name Role Phone Nicola Johnson Primary Care [...] Dr. Dominic Cantu Other Provider Unavailab Castro RAILROAD SURVEYOR, RAILROAD SURVEYOR-C Maeve Other Provider Dr. Maximilian Kitchen Attending [...] HALKO DO, RICHIE Attending Unavailable HALKO DO, RICHEI Primary Care Unavailable HALKO DO, RICHIE Attending Unavailable HALKO DO, RICHIE Primary Care Unavailable Halko DO, Dr. Molina Primary Care Provider Olena DAVISON, Dr. Gandara Attending Provider Dr. Juliocesar Hyatt DO Emergency Provider Hunter Ryan MD Attending Provider Hunter Ryan MD Emergency Provider Dr. Darius Ryan DO Emergency Provider [phone] Halko, Richie Primary Care Unavailable Halko, Richie [...] 7 [facility] (6 sources) Propoxyphene; Translations: [PROPOXYPHENE HCL] Drug Allergy 7 [facility] (6 sources) Propoxyphene N-Acetaminophen; Translations: [PROPOXYPHENE N-ACETAMINOPHEN] Propensity to adverse reactions 7 [facility] (20 sources) Ampicillin; Translations: [ampicillin] Drug Allergy 2 Unknown, [facility] (20 sources) Penicillin; Translations: [penicillin] Drug Allergy Unknown [facility] (20 sources) Propoxyphene; Translations: [propoxyphene] Drug Allergy Unknown [facility] (9 sources) Codeine Drug Allergy 2 [facility] (10 sources) Meperidine; Translations: [meperidine HCl] Drug Allergy 2 [facility] (10 sources) Propoxyphene; Translations: [propoxyphene napsylate] Drug Allergy 2 [facility] (11 sources) cilostazol; Translations: [cilostazol] Drug Allergy dizziness, peripheral edema [facility] (1 source) Ampicillin Drug Allergy 5 [facility] (1 source) Codeine Drug Allergy 5 [facility] Medications Current Medications Medication Drug Class(es) [...] 1 Refill(s), 04/25/24 11:57:00 AM EST, Pharmacy: [facility], 155, cm, 10/28/23 11:31:00 EDT, Height, kg, 10/28/23 11:19:00 EDT, Dosing Weight Start Date: 10/28/23 Stop Date: 04/25/24 Status: Ordered Start: 08-31-2023 take 2 tablets by mo [facility] every eight hours Acetaminophen 500 mg Tablet [...] patient, # 180 tab(s), 0 Refill(s), Pharmacy: [id number], Low back pain with [...] 90 tab(s), 0 Refill(s), [facility]: [facility][id number], Low back pain with sciatica Inflammatory polyarthropathy, [...] 08/20/2023, # 120 tab(s), 0 Refill(s), Pharmacy: [facility], Low back pain with sciatica [...] 120 tab(s), 0 Refill(s), [facility] #[id number], Low back pain with sciatica Inflammatory polyarthropathy, [...] 120 tab(s), 0 Refill(s), [facility]: [facility] #[id number], Low back pain with sciatica Inflammatory polyarthropathy, [...] 120 tab(s), 0 Refill(s), [facility]: [facility][id number], Low back pain with sciatica Inflammatory polyarthropathy, [...] # 120 tab(s), 0 Refill(s), [facility]: [facility], Low back pain with sciatica, 152, cm, 07/11/21 15:19:00 EDT, Height, 103... Start Date: 08/13/21 Stop Date: 09/12/21 Status: Ordered Start: 04-02-2016 End: 08-31-2023 take 1 tablet by mouth every six hours Percocet 5 mg-325 mg oral tablet Dose = 1 tab(s), Oral, q6hr, to be filled on or after 05/28/21, X 30 day(s), # 120 tab(s), 0 Refill(s), Pharmacy: [facility]/pharmacy #[id number], Inflammatory polyarthropathy Chronic low back [...] dose, # 90 tab(s), 0 Refill(s), Pharmacy: [facility], 155, cm, 08/12/23 13:54:00 EDT, Height, kg, 08/12/23 13:54:00 EDT, Dosing Weight Start Date: 08/12/23 Stop Date: 11/10/23 Status: Ordered Start: 04-12-2023 End: 05-12-2023 amitriptyline 25 mg oral tab let Dose : 25 mg = 1 tab(s), Oral, qHS, # 30 tab(s), 0 Refill(s), [facility]: [facility][id number], 155, cm, 02/05/23 10:24:00 EST, Height, kg, 04/12/23 15:40:00 EST, Dosing Weight Start Date: 04/12/23 Stop Date: 05/12/23 Status: Ordered apixaban 5 mg oral tablet (6 sources) Factor Xa Inhibitor Start: 03-09-2024 Eliquis 5 mg oral tablet Dose : 5 mg = 1 tab(s), Oral, BID, dx I48.91, # 180 tab(s), 1 Refill(s), Pharmacy: [facility], 155, cm, 03/30/24 15:26:00 EST, Height, 104.1, kg, 03/30/24 15:26:00 EST, Dosing Weight Start Date: 04/25/24 Status: Ordered Quantity: 180.0 Unit: tab(s) Repeat number: 2 Start: 10-28-2023 Eliquis 5 mg o ral tablet Dose : 5 mg = 1 tab(s), Oral, BID, dx I48.91, # 180 tab(s), 1 Refill(s), Pharmacy: [facility], 155, cm, 10/28/23 11:31:00 EDT, Height, 99.5, kg, 10/28/23 11:19:00 EDT, Dosing Weight Start Date: 10/28/23 Status: Ordered Start: 06-10-2023 Eliquis 5 mg o ral tablet Dose : 5 mg = 1 tab(s), Oral, BID, dx I48.91, # 180 tab(s), 1 Refill(s), [facility]acy: [facility] #[id number], 155, cm, 06/10/23 16:49:00 EDT, Height, 108, kg, 06/10/23 16:49:00 EDT, Dosing Weight Start Date: 06/10/23 Status: Ordered aspirin 81 mg delayed release oral tablet (20 sources) Platelet Aggregation Inhibitor, Nonsteroidal Anti-inflammatory Drug Start: 04-13-2024 aspirin 81 mg ora l delayed release tablet Dose : 81 mg = 1 tab(s), Oral, Daily, # 90 tab(s), 1 Refill(s), Pharmacy: [facility], 155, cm, 03/30/24 15:26:00 EST, Height, kg, 03/30/24 15:26:00 EST, Dosing Weight Start Date: 04/13/24 Status: Ordered Quantity: 90.0 Unit: tab(s) Repeat number: 2 Start: 10-28-2023 aspirin 81 mg oral delayed release tablet Dose : 81 mg = 1 tab(s), Oral, Daily, # 90 tab(s), 1 Refill(s), Pharmacy: [facility], 155, cm, 10/28/23 11:31:00 EDT, [...] Refill(s), 06/25/22 16:52:00 EDT, [facility]: [facility] #[id number], 156, cm, 01/02/22 13:01:00 EST, Height, 118 Start Date: 03/27/22 Stop Date: 06/25/22 Status: Ordered bumetanide 1 mg oral tablet (12 sources) Loop Diuretic Start: 01-27-2023 bumetanide 1 mg oral tablet Dose : 1 mg = 1 tab(s), Oral, BID, # 180 tab(s), 1 Refill(s), Pharmacy: [facility], 155, cm, 03/30/24 15:26:00 EST, Height, kg, 03/30/24 15:26:00 EST, Dosing Weight Start Date: 04/25/24 Status: Ordered Quantity: 180.0 Unit: tab(s) Repeat number: 2 Start: 07-27-2022 End: 04-25-2024 bumetanide 1 mg oral tablet Dose : 1 mg = 1 tab(s), Oral, BID, # 180 tab(s), 1 Refill(s), Pharmacy: [facility], 155, cm, 10/28/23 11:31:00 EDT, Height, kg, 10/28/23 11:19:00 EDT, Dosing Weight Start Date: 10/28/23 Stop Date: 04/25/24 Status: Ordered buPROPion hydrochloride 75 mg oral tablet (15 sources) Aminoketone Start: 07-03-2024 buPROPion 75 m g oral tablet Dose : 75 mg = 1 tab(s), Oral, BID, am and afternoon, # 60 tab(s), 0 Refill(s), [facility]: [facility] #[id number], 150.3, cm, 07/03/24 14:25:00 EDT, Height, kg, [...] # 30 tab(s), 1 Refill(s), [facility]: [facility][id number], 155, cm, 10/14/22 9:25:00 EDT, Height, kg, [...] # 180 tab(s), 1 Refill(s), [facility]: [facility] #[id number], 155, cm, 03/30/24 15:26:00 EST, Height, kg, [...] 0 Refill(s), 12/05/23 9:18:00 AM EDT, Pharmacy: [facility] #[id number], 155, cm, 11/25/23 8:45:00 EDT, Height, 98.9, [...] qDay, # 90 cap(s), 1 Refill(s), Pharmacy: [facility] #[id number], 155, cm, 03/30/24 15:26:00 EST, Height, kg, [...] E11.42, # 1 EA, 11 Refill(s), [id number], Type 2 diabetes mellitus, 152.4, cm, 05/31/19 10:39:00 EDT, Height, 135.5, kg, 05/31/19 10:39:00 EDT, Dosing Weight Start Date: 07/04/19 Status: Ordered Quantity: 1.0 Unit: EA Repeat number: 12 Indications: Type 2 diabetes mellitus without complications; Start: 07-04-2019 DME MISCellane ous See Instructions, Accucheck 1 box of 100 testing 2 times daily; dx E11.42, # 1 EA, 11 Refill(s), Pharmacy: [facility]/pharmacy #[id number], Type 2 diabetes mellitus, 152.4, [...] 0 Refill(s), 12/09/23 12:50:00 PM EDT, Pharmacy: [facility] #[id number], 155, cm, 11/25/23 8:45:00 EDT, Height, 98.9, kg, 11/25/23 8:45:00 EDT, Dosing Weight Start Date: 11/29/23 Stop Date: 12/09/23 Status: Ordered empagliflozin 25 mg oral tablet (20 sources) Sodium-Glucose Cotransporter 2 Inhibitor Start: 03-09-2024 Jardiance 25 m g oral tablet Dose : 25 mg = 1 tab(s), Oral, qAM, # 90 tab(s), 1 Refill(s), Pharmacy: [facility], 155, cm, 03/30/24 15:26:00 EST, [...] sources) Anticholinergic, Corticosteroid, beta2-Adrenergic Agonist Start: 01-27-2023 Qzgisgfguod-Lbnqnnjly-Bd lanter (Trelegy Ellipta) 100-62.5-25 mcg blister with [...] Start: 03-09-2024 take 1 capsule by mo [facility] every twelve hours Gabapentin 400 mg capsule Active 400 mg PO Q12H March 09, 2024 1:00am Start: 11-25-2023 End: 12-25-2023 gabapentin 400 mg oral capsu le Dose : 400 mg = 1 cap(s), Oral, BID, fill on or after 11/26/2023, # 60 cap(s), 0 Refill(s), [facility]: [facility] #[id number], Low back pain with sciatica, 155, cm, 11/25/23 8:45:00 EDT, Height, 98.9, kg, 11/25/23 8:45:00 EDT, Dosing Weight Start Date: 11/25/23 Stop Date: 12/25/23 Status: Ordered Start: 08-12-2023 End: 09-11-2023 gabapentin 600 mg oral table t Dose : 600 mg = 1 tab(s), Oral, TID, new dose fill on or after 08/12/2023, # 90 tab(s), 0 Refill(s), Pharmacy: [facility], Diabetic neuropathy, 155, cm, 08/12/23 [...] 90 cap(s), 2 Refill(s), [facility]: [facility] #[id number], Radiculopathy, 156, cm, 01/02/22 13:01:00 EST, Height, [...] Refill(s), 07/25/22 16:39:00 EDT, [facility]acy: [facility] #[id number], 156, cm, 01/02/22 13:01:00 EST, Height Start Date: 01/26/22 Stop Date: 07/25/22 Status: Ordered 3 ml insulin detemir 100 unt/ml pen injector (1 source) Insulin Analog Start: 09-17-19 End: 12-16-19 inject 1 dose by subcutaneous injection twice daily Levemir 100 units/mL FlexPen 3 mL Pen Dose : 50 unit(s) =, Subcutaneous, BID, # 90 mL, 0 Refill(s), [facility]acy: [facility] #[id number], 152, cm, 08/31/22 9:34:00 EDT, Height, kg, [...] water, # 90 tab(s), 1 Refill(s), Pharmacy: [facility], 155, cm, 03/30/24 15:26:00 EST, [...] water, # 90 tab(s), 1 Refill(s), Pharmacy: [facility], 155, cm, 11/25/23 8:45:00 EDT, [...] water, # 90 tab(s), 0 Refill(s), Pharmacy: [facility], 155, cm, 08/12/23 13:54:00 EDT, Height, kg, 08/12/23 13:54:00 EDT, Dosing Weight Start Date: 08/13/23 Status: Ordered meclizine hydrochloride 25 m g oral tablet (20 sources) Antiemetic Start: 07-01-2023 meclizine 25 m g oral tablet Dose : 25 mg = 1 tab(s), Oral, TID, PRN as needed for dizziness, # 30 tab(s), 2 Refill(s), Pharmacy: [facility], 155, cm, 06/10/23 16:49:00 EDT, [...] dizziness, # 40 tab(s), 1 Refill(s), Pharmacy: [facility]/pharmacy #[id number], Benign positional vertigo, 152.4, cm, 05/31/19 10:39:00 EDT, Height, kg, 05/31/19 10:39:00 EDT, Dosing Weight Start Date: 05/31/19 Status: Ordered meloxicam 7.5 mg oral tablet (18 sources) Nonsteroidal Anti-inflammatory Drug Start: 03-09-2024 meloxicam 7.5 mg oral tablet Dose : 7.5 mg = 1 tab(s), Oral, qDay, # 90 tab(s), 1 Refill(s), Pharmacy: [facility], 155, cm, 03/30/24 15:26:00 EST, Height, kg, 03/30/24 15:26:00 EST, Dosing Weight Start Date: 04/13/24 Status: Ordered Quantity: 90.0 Unit: tab(s) Repeat number: 2 Start: 10-28-2023 meloxicam 7.5 mg oral tablet Dose : 7.5 mg = 1 tab(s), Oral, qDay, # 90 tab(s), 0 Refill(s), Pharmacy: [facility], 155, , 10/28/23 11:31:00 EDT, Height, kg, 10/28/23 11:19:00 EDT, Dosing Weight Start Date: 10/28/23 Status: Ordered Start: 07-26-2023 End: 01-22-2024 meloxicam 15 mg oral tablet Dose : 15 mg = 1 tab(s), Oral, qDay, # 90 tab(s), 1 Refill(s), Pharmacy: [facility], 155, , 07/08/23 16:10:00 EDT, [...] 90 tab(s), 1 Refill(s), [facility]: [facility] #[id number], 156, cm, 01/02/22 13:01:00 EST, Height, kg, [...] qDay, # 90 tab(s), 1 Refill(s), [facility], [facility], cm, 03/30/24 15:26:00 EST, Height, kg, 03/30/24 15:26:00 EST, Dosing Weight Start Date: 04/13/24 Stop Date: 10/10/24 Status: Ordered Quantity: 90.0 Unit: tab(s) Repeat number: 2 Start: 08-13-2021 End: 07-25-2022 MetFORMIN (Eqv-Glucophage XR ) 500 mg oral tablet, EXTENDED RELEASE Dose : 1,000 mg = 2 tab(s), Oral, qDay, # 180 tab(s), 1 Refill(s), [facility]: [facility] #[id number], 156, cm, 01/02/22 13:01:00 EST, Height, kg, [...] BID, # 180 tab(s), 0 Refill(s), Pharmacy: [facility]/pharmacy #[id number], 155.4, cm, 04/30/21 13:11:00 EST, Height, kg, 04/30... Start Date: 04/30/21 Stop Date: 07/29/21 Status: Ordered take 2 tablets by mo [facility] twice daily at mealtime metFORMIN (GLUCOPHAGE) 500 [...] dose, # 90 tab(s), 1 Refill(s), Pharmacy: [facility], 155, cm, 03/30/24 15:26:00 EST, Height, kg, 03/30/24 15:26:00 EST, Dosing Weight Start Date: 04/13/24 Status: Ordered Quantity: 90.0 Unit: tab(s) Repeat number: 2 Start: 10-28-2023 Metoprolol Suc cinate ER 50 mg oral TABLET extended release Dose : 50 mg = 1 tab(s), Oral, qDay, new dose, # 90 tab(s), 1 Refill(s), Pharmacy: [facility], 155, cm, 10/28/23 11:31:00 EDT, Height, kg, 10/28/23 11:19:00 EDT, Dosing Weight Start Date: 10/28/23 Status: Ordered Start: 08-28-2023 take 1 tablet by [facility] once daily Metoprolol Succinate 50 mg tablet extended release 24 hr Active 50 mg PO DAILY August 28, 2023 12:00am Start: 07-01-2023 Metoprolol Suc cinate ER 50 mg oral TABLET extended release Dose : 50 mg = 1 tab(s), Oral, qDay, new dose, # 90 tab(s), 1 Refill(s), Pharmacy: [facility], 155, cm, 06/10/23 16:49:00 EDT, Height, kg, 06/10/23 16:49:00 EDT, Dosing Weight Start Date: 07/01/23 Status: Ordered Start: 04-14-2021 End: 09-15-2023 Metoprolol Succinate ER 25 m g oral TABLET extended release Dose : 25 mg = 1 tab(s), Oral, qDay, # 90 tab(s), 1 Refill(s), Pharmacy: [facility] #[id number], 155, cm, 02/05/23 10:24:00 EST, Height, kg, 03/19/23 15:04:00 EST, Dosing Weight Start Date: 03/19/23 Stop Date: 09/15/23 Status: Ordered Start: 07-26-2020 End: 03-23-2021 Metoprolol Succinate ER 25 m g oral TABLET extended release Dose : 25 mg = 1 tab(s), Oral, qDay, # 120 tab(s), 1 Refill(s), Pharmacy: [facility]/pharmacy #[id number], 152.5, cm, 07/26/20 15:04:00 EDT, [...] qDay, # 16.9 mL, 0 Refill(s), Pharmacy: [facility]/pharmacy #[id number], 152.4, cm, 11/19/20 17:11:00 EDT, Height, kg, 11/19/20 17:11:00 EDT, Dosing Weight Start Date: 11/19/20 Status: Ordered 24 hr nicotine 0.292 mg/hr transdermal system (20 sources) Cholinergic Nicotinic Agonist Start: nicotine 14 mg/24 hr transdermal film, extended release Apply 1 patch(es), Transdermal, qDay, # 21 patch(es), 0 Refill(s), [facility]: [facility] #[id number], 155, cm, 02/05/23 10:24:00 EST, Height, 105.3, kg, 03/19/23 15:04:00 EST, Dosing Weight Start Date: 03/19/23 Status: Ordered Start: 03-19-2023 apply 1 dose transde rmal route once daily nicotine 21mg / 24hrs transdermal patch Dose = 1 patch(es), Transdermal, qDay, # 21 patch(es), 0 Refill(s), [facility]: [facility] #[id number], 155, cm, 02/05/23 10:24:00 EST, Height, kg, 03/19/23 15:04:00 EST, Dosing Weight Start Date: 03/19/23 Status: Ordered Start: 03-19-2023 nicotine 7 mg/ 24 hr transdermal film, extended release Apply 1 patch(es), Transdermal, qDay, # 21 patch(es), 0 Refill(s), [facility]: [facility] #[id number], 155, cm, 02/05/23 10:24:00 EST, Height, 105.3, kg, 03/19/23 15:04:00 EST, Dosing Weight Start Date: 03/19/23 Status: Ordered Start: 10-14-2022 nicotine 14 mg /24 hr transdermal film, extended release Apply 1 patch(es), Transdermal, qDay, # 21 patch(es), 0 Refill(s), Pharmacy: [facility] #[id number], 155, cm, 10/14/22 9:25:00 EDT, Height, 120.7, kg, 10/14/22 9:25:00 EDT, Dosing Weight Start Date: 10/14/22 Status: Ordered Start: 10-14-2022 nicotine 7 mg/ 24 hr transdermal film, extended release Apply 1 patch(es), Transdermal, qDay, # 21 patch(es), 0 Refill(s), Pharmacy: [facility] #[id number], 155, cm, 10/14/22 9:25:00 EDT, Height, 120.7, kg, 10/14/22 9:25:00 EDT, Dosing Weight Start Date: 10/14/22 Status: Ordered Start: 03-27-2022 apply 1 dose transde rmal route once daily nicotine 7mg / 24hrs transdermal patch Dose = 1 patch(es), Transdermal, qDay, # 21 patch(es), 0 Refill(s), [facility][id number], 156, cm, 01/02/22 13:01:00 EST, Height Start Date: 03/27/22 Status: Ordered Start: 01-26-2022 apply 1 dose transde rmal route once daily nicotine 21mg / 24hrs transdermal patch Dose = 1 patch(es), Transdermal, qDay, # 21 patch(es), 0 Refill(s), [facility]: [facility] #[id number], 156, cm, 01/02/22 13:01:00 EST, Height Start Date: 01/26/22 Status: Ordered Start: 01-26-2022 nicotine 14 mg /24 hr transdermal film, extended release Apply 1 patch(es), Transdermal, qDay, # 21 patch(es), 0 Refill(s), [facility] #[id number], 156, cm, 01/02/22 13:01:00 EST, Height, 118 Start Date: 03/27/22 Status: Ordered Start: 01-26-2022 nicotine 7 mg/ 24 hr transdermal film, extended release Apply 1 patch(es), Transdermal, qDay, # 21 patch(es), 0 Refill(s), [facility][id number], 156, cm, 01/02/22 13:01:00 EST, Height, 118, [...] number: 2 Start: 08-31-2023 End: 03-09-2024 Nystatin ([facility]) 100,000 un it/gram Powder Active 1 NMA [...] dose, # 30 tab(s), 0 Refill(s), Pharmacy: [facility], 150.3, cm, 08/07/24 15:40:00 [...] q8h, # 10 tab(s), 1 Refill(s), Pharmacy: [facility]/pharmacy #[id number], Superficial thrombophlebitis of arm S/P laparoscopic cholecystectomy, 152.5, cm, 10/25/20 14:47:00 EDT, Height, kg, 10/25/20 14:47:00 EDT, Dosing Weight Start Date: 10/25/20 Status: Ordered Pen needles (4 sources) Start: 05-10-2019 Pen needles Se e Instructions, dispense #60 Novofine 32 G pen needles; 11 refills; dx E11.9, # 60 EA, 11 Refill(s), Pharmacy: [facility]/pharmacy #[id number], 153.5, cm, 04/17/19 16:11:00 EST, Height, 136.1, kg, 04/17/19 16:11:00 EST, Dosing Weight Start Date: 05/10/19 Status: Ordered pravastatin sodium 40 mg oral tablet (19 sources) HMG-CoA Reductase Inhibitor Start: 07-27-2022 End: 10-10-2024 pravastatin 40 mg oral tablet Dose : 40 mg = 1 tab(s), Oral, qHS, # 90 tab(s), 1 Refill(s), Pharmacy: [facility], 155, cm, 03/30/24 15:26:00 EST, Height, kg, 03/30/24 15:26:00 EST, Dosing Weight Start Date: 04/13/24 Stop Date: 10/10/24 Status: Ordered Quantity: 90.0 Unit: tab(s) Repeat number: 2 Start: 08-13-2021 End: 07-25-2022 pravastatin 20 mg oral table t Dose : 20 mg = 1 tab(s), Oral, qDay, # 90 tab(s), 1 Refill(s), Pharmacy: [facility] #[id number], 156, cm, 01/02/22 13:01:00 EST, Height, kg, [...] BID, # 360 tab(s), 1 Refill(s), Pharmacy: [facility], 155, cm, 03/30/24 15:26:00 EST, [...] BID, # 30 gram(s), 2 Refill(s), [id number], Cream, 152, cm, 11/28/21 14:22:00 EDT, Height, [...] qDay, # 3 EA, 1 Refill(s), [facility]: [facility] #[id number], 155, cm, 06/10/23 16:49:00 EDT, Height, kg, 06/10/23 16:49:00 EDT, Dosing Weight Start Date: 06/10/23 Stop Date: 12/07/23 Status: Ordered Start: 12-21-2022 End: 06-19-2023 take 1 dose by inhalation once daily Trelegy Ellipta 100 mcg-62.5 mcg-25 mcg/inh inhalation powder Dose = 1 puff(s), Inhalation, qDay, # 3 EA, 1 Refill(s), [facility]: [facility] #[id number], 155, cm, 12/21/22 14:33:00 EDT, Height, kg, 12/21/22 14:33:00 EDT, Dosing Weight Start Date: 12/21/22 Stop Date: 06/19/23 Status: Ordered Start: 07-27-2022 End: 01-23-2023 take 1 dose by inhalation once daily Trelegy Ellipta 100 mcg-62.5 mcg-25 mcg/inh inhalation powder Dose = 1 puff(s), Inhalation, qDay, # 3 EA, 1 Refill(s), Pharmacy: [facility] #[id number], 153, cm, 07/27/22 16:06:00 EDT, Height, kg, 07/27/22 16:06:00 EDT, Dosing Weight Start Date: 07/27/22 Stop Date: 01/23/23 Status: Ordered Start: 01-26-2022 End: 07-25-2022 take 1 dose by inhalation once daily Trelegy Ellipta 100 mcg-62.5 mcg-25 mcg/inh inhalation powder Dose = 1 puff(s), Inhalation, qDay, # 3 EA, 1 Refill(s), Pharmacy: [facility] #[id number], 156, cm, 01/02/22 13:01:00 EST, Height, kg, 01/26/22 15:00:00 EST, Dosing Weight Start Date: 01/26/22 Stop Date: 07/25/22 Status: Ordered Start: 08-13-2021 End: 02-09-2022 take 1 dose by inhalation once daily Trelegy Ellipta 100 mcg-62.5 mcg-25 mcg/inh inhalation powder Dose = 1 puff(s), Inhalation, qDay, # 3 EA, 1 Refill(s), Pharmacy: [facility], 152, cm, 07/11/21 15:19:00 EDT, Height, kg, 08/13/21 13:00:00 EDT, Dosing Weight Start Date: 08/13/21 Stop Date: 02/09/22 Status: Ordered Start: 02-06-2020 End: 08-04-2020 take 1 dose by inhalation once daily Trelegy Ellipta 100 mcg-62.5 mcg-25 mcg/inh inhalation powder Dose = 1 puff(s), Inhalation, qDay, # 3 EA, 1 Refill(s), Pharmacy: [facility]/pharmacy #[id number], 152, cm, 02/06/20 13:12:00 EST, [...] food, # 90 tab(s), 0 Refill(s), Pharmacy: [facility], 150.3, cm, 07/03/24 14:25:00 EDT, Height, kg, 07/03/24 14:25:00 EDT, Dosing Weight Start Date: 08/04/24 Status: Ordered Quantity: 90.0 Unit: tab(s) Repeat number: 1 Start: 03-09-2024 take 1 tablet by [facility] once daily Venlafaxine 225 mg tablet extended release 24hr Active 225 mg PO DAILY March 09, 2024 1:00am Start: 08-02-2023 End: 01-29-2024 venlafaxine 225 mg oral tabl et, extended release Dose : 225 mg = 1 tab(s), Oral, qDay, new rx, # 90 tab(s), 1 Refill(s), Pharmacy: [facility], 155, cm, 10/28/23 11:31:00 EDT, [...] 90 cap(s), 0 Refill(s), [facility]: [facility] #[id number], 155, cm, 02/05/23 10:24:00 EST, Height, kg, [...] 100 tab(s), 1 Refill(s), [facility]: [facility] #[id number], 155, cm, 03/30/24 15:26:00 EST, Height, kg, 03/30/24 15:26:00 EST, Dosing Weight Start Date: 03/30/24 Status: Ordered Quantity: 100.0 Unit: tab(s) Repeat number: 2 Start: 10-28-2023 cyanocobalamin 500 mcg sublingual tablet Dose : 500 mcg = 1 tab(s), Sublingual, qDay, # 100 tab(s), 1 Refill(s), [facility], [facility], cm, 10/28/23 11:31:00 EDT, Height, kg, 10/28/23 11:19:00 EDT, Dosing Weight Start Date: 10/28/23 Status: Ordered Start: 06-10-2023 cyanocobalamin 500 mcg sublingual tablet Dose : 500 mcg = 1 tab(s), Sublingual, qDay, # 100 tab(s), 1 Refill(s), [facility]: [facility][id number], 155, cm, 06/10/23 16:49:00 EDT, Height, kg, 06/10/23 16:49:00 EDT, Dosing Weight Start Date: 06/10/23 Status: Ordered Start: 01-26-2023 cyanocobalamin 500 mcg sublingual tablet Dose : 500 mcg = 1 tab(s), Sublingual, qDay, # 100 tab(s), 0 Refill(s), Pharmacy: [facility] #[id number], 155, cm, 01/08/23 16:04:00 EST, Height, kg, 01/08/23 16:04:00 EST, Dosing Weight Start Date: 01/26/23 Status: Ordered Start: 01-26-2023 cyanocobalamin 500 mcg sublingual tablet Dose : 500 mcg = 1 tab(s), Sublingual, qDay, # 100 tab(s), 0 Refill(s), [facility]: [facility] #[id number], 155, cm, 01/08/23 16:04:00 EST, Height, kg, [...] QID, # 360 mL, 5 Refill(s), [facility], 155, cm, 10/28/23 11:31:00 EDT, Height, [...] wheezing, # 3 EA, 1 Refill(s), Pharmacy: [facility] #[id number], 156, cm, 01/02/22 13:01:00 EST, Height Start Date: 04/01/22 Stop Date: 09/28/22 Status: Ordered Start: 04-14-2021 End: 07-25-2022 take 1 dose by inhalation four times daily albuterol 0.63 mg/3 mL (0.021%) inhalation solution Dose : 0.63 mg = 3 mL, Nebulized, QID, # 360 mL, 5 Refill(s), Pharmacy: [facility] #[id number], 156, cm, 01/02/22 13:01:00 EST, Height, kg, 01/26/22 15:00:00 EST, Dosing Weight Start Date: 01/26/22 Stop Date: 07/25/22 Status: Ordered Start: 04-14-2021 End: 10-11-2021 take 1 dose by inhalation four times daily albuterol 0.63 mg/3 mL (0.021%) inhalation solution Dose : 0.63 mg = 3 mL, Nebulized, QID, # 360 mL, 5 Refill(s), Pharmacy: [facility]/pharmacy #[id number], 154.5, cm, 04/14/21 16:08:00 EST, Height, kg, 04/14/21 16:08:00 EST, Dosing Weight Start Date: 04/14/21 Stop Date: 10/11/21 Status: Ordered Start: 2019 End: 01-20-2020 take 1 dose by inhalation four times daily albuterol 0.63 mg/3 mL (0.021%) inhalation solution Dose : 0.63 mg = 3 mL, Nebulized, QID, # 360 mL, 5 Refill(s), Pharmacy: [facility]/pharmacy #[id number], 152.5, cm, 07/14/19 15:58:00 EDT, Height, kg, 07/24/19 15:44:00 EDT, Dosing Weight Start Date: 07/24/19 Stop Date: 01/20/20 Status: Ordered albuterol MDI (90 mcg/inh) CFC free inhalation aerosol (17 sources) Start: 10-28-2023 End: 04-25-2024 take 2 puff(s) by inhalation every four hours albuterol MDI (90 mcg/inh) CFC free inhalation aerosol 2 puff(s), Inhalation, q4h, # 3 EA, 1 Refill(s), Pharmacy: [facility], Wheezing, 155, cm, 10/28/23 11:31:00 EDT, Height, kg, 10/28/23 11:19:00 EDT, Dosing Weight Start Date: 10/28/23 Stop Date: 04/25/24 Status: Ordered Quantity: 3.0 Unit: EA Repeat number: 2 Indications: Wheezing; Start: 10-28-2023 End: 04-25-2024 take 2 puff(s) by inhalation every four hours albuterol MDI (90 mcg/inh) CFC free inhalation aerosol 2 puff(s), Inhalation, q4h, # 3 EA, 1 Refill(s), Pharmacy: [facility], Wheezing, 155, cm, 10/28/23 11:31:00 EDT, Height, kg, 10/28/23 11:19:00 EDT, Dosing Weight Start Date: 10/28/23 Stop Date: 04/25/24 Status: Ordered Start: 07-26-2023 End: 01-22-2024 take 2 puff(s) by inhalation every four hours albuterol MDI (90 mcg/inh) CFC free inhalation aerosol 2 puff(s), Inhalation, q4h, # 3 EA, 1 Refill(s), Pharmacy: [facility], Wheezing, 155, cm, 07/08/23 16:10:00 EDT, Height, kg, 07/08/23 16:10:00 EDT, Dosing Weight Start Date: 07/26/23 Stop Date: 01/22/24 Status: Ordered Start: 03-19-2023 End: 09-15-2023 take 2 puff(s) by inhalation every four hours albuterol MDI (90 mcg/inh) CFC free inhalation aerosol 2 puff(s), Inhalation, q4h, dispense Proair, # 3 EA, 1 Refill(s), [facility]: [facility][id number], Wheezing, 155, cm, 02/05/23 10:24:00 EST, Height, kg, 03/19/23 15:04:00 EST, Dosing Weight Start Date: 03/19/23 Stop Date: 09/15/23 Status: Ordered Start: 09-16-2022 End: 03-15-2023 take 2 puff(s) by inhalation every four hours albuterol MDI (90 mcg/inh) CFC free inhalation aerosol 2 puff(s), Inhalation, q4h, dispense Proair, # 3 EA, 1 Refill(s), [facility]: [facility] #[id number], Wheezing, 152, cm, 08/31/22 9:34:00 EDT, Height, kg, 08/31/22 9:34:00 EDT, Dosing Weight Start Date: 09/16/22 Stop Date: 03/15/23 Status: Ordered Start: 03-18-2022 End: 09-14-2022 take 2 puff(s) by inhalation every four hours albuterol MDI (90 mcg/inh) CFC free inhalation aerosol 2 puff(s), Inhalation, q4h, # 3 EA, 1 Refill(s), [facility]: [facility] #[id number], Wheezing, 156, cm, 01/02/22 13:01:00 EST, Height, kg, 02/25/22 15:58:00 EST, Dosing Weight Start Date: 03/18/22 Stop Date: 09/14/22 Status: Ordered Start: 08-13-2021 End: 02-09-2022 take 2 puff(s) by inhalation every four hours albuterol MDI (90 mcg/inh) CFC free inhalation aerosol 2 puff(s), Inhalation, q4h, # 3 EA, 1 Refill(s), [facility], Wheezing, 152, cm, 07/11/21 15:19:00 EDT, Height, kg, 08/13/21 13:00:00 EDT, Dosing Weight Start Date: 08/13/21 Stop Date: 02/09/22 Status: Ordered Start: 03-13-2021 End: 09-09-2021 take 2 puff(s) by inhalation every four hours albuterol MDI (90 mcg/inh) CFC free inhalation aerosol 2 puff(s), Inhalation, q4h, # 3 EA, 1 Refill(s), Pharmacy: [facility]/pharmacy #[id number], Wheezing, 153.5, cm, 03/13/21 11:47:00 EST, Height, kg, 03/13/21 11:47:00 EST, Dosing Weight Start Date: 03/13/21 Stop Date: 09/09/21 Status: Ordered Start: 11-15-2019 End: 12-15-2019 take 2 puff(s) by inhalation every four hours albuterol MDI (90 mcg/inh) CFC free inhalation aerosol 2 puff(s), Inhalation, q4h, # 1 EA, 0 Refill(s), Pharmacy: [facility]/pharmacy #[id number], Wheezing, 155, cm, 11/15/19 15:33:00 [...] mg/ml oral solution (3 sources) Phenothiazine, Uncompetitive F-mgulma-B-aspartate Receptor Antagonist, Sigma-1 Agonist Start: 07-27-2022 End: 10-19-2022 take 1 dose by mouth every six hours dextromethorphan-promethazine 15 mg-6.25 mg/5 mL oral syrup Dose = 5 mL, Oral, q6hr, # 280 mL, 5 Refill(s), [facility]: [facility] #[id number], 153, cm, 07/27/22 16:06:00 EDT, Height Start [...] 90 tab(s), 1 Refill(s), [facility]: [facility] #[id number], 153, cm, 07/27/22 16:06:00 EDT, Height, kg, 07/27/22 16:06:00 EDT, Dosing Weight Start Date: 07/27/22 Status: Ordered Start: 01-26-2022 escitalopram 2 0 mg oral tablet Dose : 20 mg = 1 tab(s), Oral, qDay, increased dose, # 90 tab(s), 1 Refill(s), [facility]: [facility] #[id number], 156, cm, 01/02/22 13:01:00 EST, Height, kg, 01/26/22 15:00:00 EST, Dosing Weight Start Date: 01/26/22 Status: Ordered Start: 08-13-2021 End: 02-09-2022 escitalopram 10 mg oral tabl et Dose : 10 mg = 1 tab(s), Oral, qDay, # 90 tab(s), 1 Refill(s), [facility]: [facility], 152, cm, 07/11/21 15:19:00 EDT, Height, [...] time, # 90 mL, 1 Refill(s), Pharmacy: [facility] #[id number], 155, cm, 06/10/23 16:49:00 EDT, Height, kg, 06/10/23 16:49:00 EDT, Dosing Weight Start Date: 06/10/23 Stop Date: 12/07/23 Status: Ordered Quantity: 90.0 Unit: mL Repeat number: 2 Start: 03-13-2021 End: 07-25-2022 inject 1 dose by subcutaneous injection twice daily Lantus Solostar Pen 100 units/mL 3 mL Pen Dose : 50 unit(s) =, Subcutaneous, BID, # 90 mL, 1 Refill(s), Pharmacy: [facility] #[id number], 156, cm, 01/02/22 13:01:00 EST, Height, kg, 01/26/22 15:00:00 EST, Dosing Weight Start Date: 01/26/22 Stop Date: 07/25/22 Status: Ordered Start: 12-17-2020 End: 09-09-2021 inject 1 dose by subcutaneous injection twice daily Lantus Solostar Pen 100 units/mL 3 mL Pen Dose : 50 unit(s) =, Subcutaneous, BID, # 90 mL, 1 Refill(s), Pharmacy: [facility]/pharmacy #[id number], 153.5, cm, 03/13/21 11:47:00 EST, [...] mouth four times daily. polyethylene glycol 3350 748543 mg / potassium chloride 2970 mg / sodium bicarbonate 6740 mg / sodium chloride 5860 mg / sodium sulfate 80315 mg powder for oral solution (2 sources) [...] qDayM, # 5 tab(s), 0 Refill(s), Pharmacy: [facility]/pharmacy #[id number], 154.5, cm, 04/14/21 16:08:00 EST, Height, kg, 04/14/21 16:08:00 EST, Dosing Weight Start Date: 04/25/21 Stop Date: 04/30/21 Status: Ordered Start: 04-14-2021 End: 04-19-2021 predniSONE 50 mg oral tablet Dose : 50 mg = 1 tab(s), Oral, qDayM, # 5 tab(s), 0 Refill(s), Pharmacy: [facility]/pharmacy #[id number], 154.5, cm, 04/14/21 16:08:00 EST, Height, kg, 04/14/21 16:08:00 EST, Dosing Weight Start Date: 04/14/21 Stop Date: 04/19/21 Status: Ordered Start: 01-13-2021 End: 01-18-2021 predniSONE 50 mg oral tablet Dose : 50 mg = 1 tab(s), Oral, qDayM, # 5 tab(s), 0 Refill(s), Pharmacy: [facility]/pharmacy #[id number], 153, cm, 12/24/20 14:55:00 EDT, [...] qWeek, # 3 EA, 0 Refill(s), [id number], 152.5, cm, 08/23/20 14:51:00 EDT, Height, [...] Interpretation Reference Range Facility [facility] 09-07-2024 Order Number [id number] [facility] Comment on above: Order Comment: Send to [facility] lavender frozen [id number] pour off Performed By: #### U PACO HANNON #### [address] Test Name phosphorylated tau 217 [facility] Comment on above: Order Comment: Send to [facility] lavender frozen [id number] pour off Performed By: #### U PARVEZ UA #### [address] 09-06-2024 [facility] Test Result COMMENT Normal [facility] Comment on above: Order Comment: Send to [facility] lavender frozen [id number] pour off Result Comment: Test Ordered: [id number] [id number] p-kow403 0.99 [H ] pg/mL L9 Reference Range: 0.00-0.18 This test was developed and its performance characteristics determined by [facility]. It has not been cleared or approved by the Food and Drug Administration. Clinical cutoff value was established using samples from a patient cohort characterized with amyloid PET data. A p-puq023 value of >0.18 is a reported surrogate marker for beta amyloid pathology, and can be used to facilitate biological identification of Alzheimer's disease (1). p-fxk025 has also been used in clinical trials to monitor patients on anti-amyloid therapy (2,3). Test performed by [employer] chemiluminescent enzyme immunoassay (CLEIA). Values obtained with different methods cannot be used interchangeably. The validated limit of quantification is 0.06 pg/mL. Assay detection limit is 0.03 pg/mL. Footnotes Comment L9 1. Obdulio Loyola, et al. "Diagnostic Accuracy of a Plasma Phosphorylated Tau 217 Immunoassay for Alzheimer Disease Pathology." [facility] (2023). 2. Obdulio Loyola, et al. "Differential roles of A42/40, p-gim429 and p-dtr783 for Alzheimer's trial selection and disease monitoring." Nature medicine 28.12 (2021): 8055-2241. 3. Livia ART, Peyton M, [place], et al. "Association of Donanemab Treatment With Exploratory Plasma Biomarkers in Early Symptomatic Alzheimer Disease: A Secondary Analysis of the TRAILBLAZER-ALZ Randomized Clinical Trial". [facility]. 2021;79(12):9671-7665. Performed At: [facility] [id number] Shi Joy PhD Ph:[phone] Performed At: L9 [facility] [address] [place] [address], [place] [id number] Clem Nazario MD Ph:[phone] Performed By: #### U PARVEZ UA #### [address] [address] .Auto Diffon 09-01-2024 Basophil, Absolute 0.1 10 3/mcL Normal 0.0-0.3 [facility] Comment on above: Performed By: #### U AMICAO, UA #### [address] [address] Basophils/100 WBC (Bld) 0.8 % Normal 0.0-2.5 [facility] Comment on above: Performed By: #### U AMICAO, UA #### [address] [address] Eosinophil, Absolute 0.2 10 3/mcL Normal 0.0-0.7 [facility] Comment on above: Performed By: #### U AMICAO, UA #### [address] [address] Eosinophils/100 WBC (Bld) 1.7 % Normal 0.0-6.0 [facility] Comment on above: Performed By: #### U AMICAO, UA #### [address] [address] Lymphocyte, Absolute 2.7 10 3/mcL Normal 0.9-4.3 [facility] Comment on above: Performed By: #### U AMICAO, UA #### [address] [address] Lymphocytes/100 WBC (Bld) 27.3 % Normal 20.0-40.0 [facility] Comment on above: Performed By: #### U AMICAO, UA #### [address] [address] Monocyte, Absolute 0.6 10 3/mcL Normal 0.1-1.4 [facility] Comment on above: Performed By: #### U AMICAO, UA #### [address] [address] Monocytes/100 WBC (Bld) 5.9 % Normal 2.0-13.0 [facility] Comment on above: Performed By: #### U PARVEZ UA #### [address] [place], [place] [address] Neutrophils/100 WBC (Bld) 64.3 % Normal 50.0-75.0 [facility] Comment on above: Performed By: #### U PARVEZ UA #### [address] [place], [place] [address] .GFRon 09-01-2024 Estimated Glomerular Filtration Rate 41 ml/min/1.73sqm Normal [facility] Comment on above: Result Comment: Stages [...] CBC, ADIFF, VIDH, A1C, CMP, ANEU #### [address] [address] #### B12 #### [address] [address] .NEUABSon 09-01-2024 Neutrophil, Absolute 6.3 10 3/mcL Normal 2.3-8.1 [facility] Comment on above: Performed By: #### U PARVEZ UA #### [address] [place], [place] [address] A1Con 09-01-2024 Glucose [Mass/Vol] 128 mg/dL Normal [facility] Comment on above: Result Comment: Eloisa mated Average Glucose calculated by equation ((28.7xA1C)-46.7) Estimated average glucose (eAG) is a calculated value from Hemoglobin A1C and is reimbursement representative of the average blood glucose level in the last 2-3 month period. Normal range: less than 114 mg/dL Performed By: #### T SH, GFR, FT4, CBC, ADIFF, VIDH, A1C, CMP, ANEU #### [address] [address] #### B12 #### [address] [address] HbA1c (Bld) [Mass fraction] 6.1 % Normal 4.3-6.4 [facility] Comment on above: Performed By: #### T SH, GFR, FT4, CBC, ADIFF, VIDH, A1C, CMP, ANEU #### [address] [address] #### B12 #### [address] [address] B12on 09-01-2024 Cobalamin (Vitamin B12) [Mass/Vol] 336 pg/mL Normal 211-911 [facility] Comment on above: Performed By: #### T SH, GFR, FT4, CBC, ADIFF, VIDH, A1C, CMP, ANEU #### [address] [address] #### B12 #### [address] [address] CBCon 09-01-2024 Erythrocyte distribution width (RBC) [Ratio] 14.9 % Normal 11.5-15.5 [facility] Comment on above: Performed By: #### U PARVEZ UA #### [address] [address] Hematocrit (Bld) [Volume fraction] 42.0 % Normal 34.0-46.0 [facility] Comment on above: Performed By: #### U PARVEZ UA #### [address] [address] Hgb 13.9 G/dL Normal 12.0-16.0 [facility] Comment on above: Performed By: #### PACO ASHFORD #### [address] [address] MCH (RBC) [Entitic mass] 31.3 pg Normal 27.0-33.0 [facility] Comment on above: Performed By: #### PACO ASHFORD #### [address] [address] MCHC 33.0 G/dL Normal 32.0-36.0 [facility] Comment on above: Performed By: #### Kush HANNON UA #### [address] [address] MCV (RBC) [Entitic vol] 94.8 fL Normal 80.0-99.0 [facility] Comment on above: Performed By: #### Kush HANNON UA #### [address] [address] Platelet 274 10 3/mcL Normal 150-450 [facility] Comment on above: Performed By: #### PACO ASHFORD #### [address] [address] Platelet mean volume (Bld) [Entitic vol] 10.8 fL High 6.6-10.5 [facility] Comment on above: Performed By: #### Kush HANNON UA #### [address] [address] RBC 4.43 10 6/mcL Normal 4.10-5.30 [facility] Comment on above: Performed By: #### Kush HANNON UA #### [address] [address] WBC 9.8 10 3/mcL Normal 4.5-10.8 [facility] Comment on above: Performed By: #### Kush HANNON UA #### [address] [address] CMPon 09-01-2024 Albumin Level 3.5 G/dL Normal 3.4-4.8 [facility] Comment on above: Performed By: #### T SH, GFR, FT4, CBC, ADIFF, VIDH, A1C, CMP, ANEU #### [place] [address] #### B12 #### [address] [address] Albumin/Globulin [Mass ratio] 0.9 {ratio} Low 1.1-2.5 [facility] Comment on above: Performed By: #### T SH, GFR, FT4, CBC, ADIFF, VIDH, A1C, CMP, ANEU #### [place] [address] #### B12 #### [address] [address] ALP [Catalytic activity/Vol] 114 U/L Normal 40-135 [facility] Comment on above: Performed By: #### T SH, GFR, FT4, CBC, ADIFF, VIDH, A1C, CMP, ANEU #### [place] [address] #### B12 #### [place] [address] ALT [Catalytic activity/Vol] 19 U/L Normal 14-59 [facility] Comment on above: Performed By: #### T SH, GFR, FT4, CBC, ADIFF, VIDH, A1C, CMP, ANEU #### [place] [address] #### B12 #### [place] [address] AST [Catalytic activity/Vol] 13 U/L Normal 10-40 [facility] Comment on above: Performed By: #### T SH, GFR, FT4, CBC, ADIFF, VIDH, A1C, CMP, ANEU #### [place] [address] #### B12 #### [place] [address] Bili Total 0.4 mg/dL Normal 0.2-1.0 [facility] Comment on above: Result Comment: Use of this assay is not recommended for patients undergoing treatment with eltrombopag due to the potential for falsely elevated results. Performed By: #### T SH, GFR, FT4, CBC, ADIFF, VIDH, A1C, CMP, ANEU #### [address] [address] #### B12 #### [address] [address] BUN/Creatinine Ratio 16 ratio Normal 7-27 [facility] Comment on above: Performed By: #### T SH, GFR, FT4, CBC, ADIFF, VIDH, A1C, CMP, ANEU #### [place] [address] #### B12 #### [address] [address] Calcium [Mass/Vol] 9.4 mg/dL Normal 8.4-10.2 [facility] Comment on above: Performed By: #### T SH, GFR, FT4, CBC, ADIFF, VIDH, A1C, CMP, ANEU #### [place] [address] #### B12 #### [address] [address] Chloride [Moles/Vol] 104 mmol/L Normal 98-107 [facility] Comment on above: Performed By: #### T SH, GFR, FT4, CBC, ADIFF, VIDH, A1C, CMP, ANEU #### [place] [address] #### B12 #### [address] [address] CO2 [Moles/Vol] 29 mmol/L Normal 23-31 [facility] Comment on above: Performed By: #### T SH, GFR, FT4, CBC, ADIFF, VIDH, A1C, CMP, ANEU #### [place] [address] #### B12 #### [address] [address] Creatinine [Mass/Vol] 1.37 mg/dL High 0.51-0.95 [facility] Comment on above: Performed By: #### T SH, GFR, FT4, CBC, ADIFF, VIDH, A1C, CMP, ANEU #### [place] [address] #### B12 #### [address] [address] Electrolyte Balance 10.0 mEq/L Normal 4.0-15.0 [facility] Comment on above: Performed By: #### T SH, GFR, FT4, CBC, ADIFF, VIDH, A1C, CMP, ANEU #### [place] [address] #### B12 #### [address] [address] Globulin 3.9 G/dL Normal 2.7-4.4 [facility] Comment on above: Performed By: #### T SH, GFR, FT4, CBC, ADIFF, VIDH, A1C, CMP, ANEU #### [place] [address] #### B12 #### [place] [address] Glucose [Mass/Vol] 174 mg/dL High 83-110 [facility] Comment on above: Performed By: #### T SH, GFR, FT4, CBC, ADIFF, VIDH, A1C, CMP, ANEU #### [place] [address] #### B12 #### [place] [address] Potassium [Moles/Vol] 3.5 mmol/L Normal 3.5-5.1 [facility] Comment on above: Performed By: #### T SH, GFR, FT4, CBC, ADIFF, VIDH, A1C, CMP, ANEU #### [place] [address] #### B12 #### [address] [address] Sodium [Moles/Vol] 143 mmol/L Normal 136-145 [facility] Comment on above: Performed By: #### T SH, GFR, FT4, CBC, ADIFF, VIDH, A1C, CMP, ANEU #### [address] [address] #### B12 #### [place] [address] Total Protein 7.4 G/dL Normal 6.4-8.2 [facility] Comment on above: Performed By: #### T SH, GFR, FT4, CBC, ADIFF, VIDH, A1C, CMP, ANEU #### [address] [address] #### B12 #### [place] [address] Urea nitrogen [Mass/Vol] 22 mg/dL High 7-18 [facility] Comment on above: Performed By: #### T SH, GFR, FT4, CBC, ADIFF, VIDH, A1C, CMP, ANEU #### [place] [address] #### B12 #### [place] [address] FT4on 09-01-2024 Free T4 [Mass/Vol] 0.99 ng/dL Normal 0.76-1.46 [facility] Comment on above: Performed By: #### T SH, GFR, FT4, CBC, ADIFF, VIDH, A1C, CMP, ANEU #### [place] [address] #### B12 #### [place] [address] LABORATORYOrdered By: SYSTEM SYSTEM on 09-01-2024 25-hydroxyvitamin [...] calculated value from Hemoglobin A1C and is reimbursement representative of the average blood glucose level [...] 09-01-2024 Cholesterol [Mass/Vol] 167 mg/dL Normal 0-200 [facility] Comment on above: Result Comment: Chol esterol Reference Interval: Less than 200 Desirable 200-239 Borderline high risk 240 and above High risk Performed By: #### T SH, GFR, FT4, CBC, ADIFF, VIDH, A1C, CMP, ANEU #### [address] [address] #### B12 #### [address] [address] Cholesterol in HDL [Mass/Vol] 42 mg/dL Normal 40-60 [facility] Comment on above: Performed By: #### T SH, GFR, FT4, CBC, ADIFF, VIDH, A1C, CMP, ANEU #### [address] [address] #### B12 #### [address] [address] Cholesterol in LDL [Mass/Vol] 98 mg/dL Normal 0-130 [facility] Comment on above: Performed By: #### T SH, GFR, FT4, CBC, ADIFF, VIDH, A1C, CMP, ANEU #### [address] [address] #### B12 #### [address] [address] Triglyceride [Mass/Vol] 136 mg/dL Normal 0-150 [facility] Comment on above: Result Comment: Trig lyceride Reference Interval: Less than 150 Normal 150-199 Borderline high risk 200-499 High risk 500 or higher Very high risk Performed By: #### T SH, GFR, FT4, CBC, ADIFF, VIDH, A1C, CMP, ANEU #### [address] [address] #### B12 #### [address] [address] TSHon 09-01-2024 TSH Qn 0.86 m[IU]/L Normal 0.36-3.74 [facility] Comment on above: Performed By: #### U AMIMIRYAM, UA #### [place] [address] VIDHon 09-01-2024 Vit. D 25-Hydroxy 48.6 ng/mL Normal [facility] Comment on above: Result Comment: Inte rpretive Values Based on Total 25(OH) Vitamin D: Deficient <20 ng/mL Insufficient 20 - <30 ng/mL Sufficient 30-100 ng/mL Performed By: #### T SH, GFR, FT4, CBC, ADIFF, VIDH, A1C, CMP, ANEU #### [facility] [address] [place], [place] [address] #### B12 #### [facility] [address] [place] [address] LEVOFLOXACIN:SUSC:PT:ISOLATE :ORDQN:MICon 08-07-2024 levoFLOXacin TWYLA [Susc] >100,000 cfu/ml Escherichia coli [facility] Work Phone: levoFLOXacin TWYLA [Susc]on Escherichia coli Escherichia coli [facility] Work Phone: Urine Cultureon 06-03-2024 [facility] Escherichia coli [place] Count >100,000 Escherichia coli: REACTION Ampicillin Islt [...] TMP SMX Islt TWYLA >=320 R Normal [facility] Comment on above: Performed By: #### L 501.4020, L500.2500, L100.0100 #### [facility] [address] [place], [address] 12 Lead EKGon 06-01-2024 12 Lead EKG [facility] [address] [place] [address] 12 Lead EKG 06/01/24 1119 MR#: [id number] Acct: [id number] Name: [address] Rep #: [id number] : 1950 73 From: Richie Small MD [...] undetermined Abnormal ECG Confirmed by Richie Small ([id number]), image editor MARY SAENZ ([id number]) on 06/05/2024 6:39:06 AM Referred By: Confirmed By: Richie Small 06/05/24 0639 Date Richie Small MD CC: Dr. Darius Ryan DO; Dr. Richie Heredia DO Signed Normal [facility] Absolute neutrophil countOrd ered By: Darius Ryan on 06-01-2024 Neutrophils (Bld) [#/Vol] 6.8 10*3/uL 2.0-7.7 [facility] Anion gap in Serum or Plasma Ordered By: Darius Ryan on 06-01-2024 Anion gap [Moles/Vol] 11 mmol/L 5-15 [facility] BUN/creatinine ratioOrdered By: Darius Ryan on 06-01-2024 Urea nitrogen/Creatinine [Mass ratio] 20.4 mg/mg High 10-20 [facility] Basophil percentageOrdered B y: Darius Ryan on 06-01-2024 Basophils/100 WBC (Bld) 0.5 % 0-1 [facility] Bilirubin Test strip Ql (U)O rdered By: Darius Ryan on 06-01-2024 Bilirubin Ql (U) Negative Negative [facility] Bilirubin, totalOrdered By: Darius Ryan on 06-01-2024 Bilirubin [Mass/Vol] mg/dL 0.00-1.30 [facility] CBC W/Diff, Automatedon 04-1 0-5 Absolute Lymph 2.69 X10 3/uL Normal 0.83-4.51 [facility] Comment on above: Performed By: #### L 100.0100, L500.4050 ####[facility] [address] [place], [address] Absolute Neut 6.8 X10 3/uL Normal 2.0-7.7 [facility] Comment on above: Performed By: #### L 100.0100, L500.4050 ####[facility] [address] [place], [address] Basophils/100 WBC (Bld) 0.5 % Normal 0-1 [facility] Comment on above: Performed By: #### L 100.0100, L500.4050 ####[facility] [address] [place] [place], [address] Eosinophils/100 WBC (Bld) 2.8 % Normal 0-5 [facility] Comment on above: Performed By: #### L 100.0100, L500.4050 ####[facility] [address] [place], [address] Erythrocyte distribution width (RBC) [Ratio] 13.8 % Normal 11.6-14.6 [facility] Comment on above: Performed By: #### L 100.0100, L500.4050 ####[facility] [address] [place], [address] Hematocrit (Bld) [Volume fraction] 36.6 % Low 37-47 [facility] Comment on above: Performed By: #### L 100.0100, [id number] ####[facility] [address] [place], [address] Hemoglobin (Bld) [Mass/Vol] 11.8 g/dL Low 12.0-15.0 [facility] Comment on above: Performed By: #### L 100.0100, L500.4050 ####[facility] [address] [place], [address] IG% 0.500 Normal 0.0-0.9 [facility] Comment on above: Result Comment: IG% - Immature Granulocytes (promyelocytes, myelocytes and metamyelocytes) > 1% indicates that a LEFT SHIFT is Present. Performed By: #### L 100.0100, L500.4050 ####[facility] [address] [place], [address] Lymphocytes/100 WBC (Bld) 25.7 % Normal 19-41 [facility] Comment on above: Performed By: #### L 100.0100, L500.4050 ####[facility] [address] [place], [address] MCH (RBC) [Entitic mass] 31.6 pg Normal 27.0-32.0 [facility] Comment on above: Performed By: #### L 100.0100, L500.4050 ####[facility] [address] [place], [address] MCHC (RBC) [Mass/Vol] 32.2 g/dL Normal 32-36 [facility] Comment on above: Performed By: #### L 100.0100, L500.4050 ####[facility] [address] [place], [address] MCV (RBC) [Entitic vol] 98.1 fL Normal 81-99 [facility] Comment on above: Performed By: #### L 100.0100, L500.4050 ####[facility] [address] [place], [address] Monocytes/100 WBC (Bld) 5.7 % Normal 0-10 [facility] Comment on above: Performed By: #### L 100.0100, L500.4050 ####[facility] [address] [place], [address] Neutrophils/100 WBC (Bld) 64.8 % Normal 47-70 [facility] Comment on above: Performed By: #### L 100.0100, L500.4050 ####[facility] [address] [place], [address] Nucleated RBC (Bld) [#/Vol] 0 10*3/uL Normal 0-5 [facility] Comment on above: Performed By: #### L 100.0100, L500.4050 ####[facility] [address] [place], [address] Platelet mean volume (Bld) [Entitic vol] 11.4 fL Normal 6.2-12.0 [facility] Comment on above: Performed By: #### L 100.0100, L500.4050 ####[facility] [address] [place], [address] Platelets (Bld) [#/Vol] 339 10*3/uL Normal 150-450 [facility] Comment on above: Performed By: #### L 100.0100, L500.4050 ####[facility] [address] [place], [address] RBC (Bld) [#/Vol] 3.73 10*6/uL Low 4.2-5.4 [facility] Comment on above: Performed By: #### L 100.0100, L500.4050 ####[facility] [address] [place], [address] RDW SD 49.4 fl High 35.1-43.9 [facility] Comment on above: Performed By: #### L 100.0100, L500.4050 ####[facility] [address] [place], [address] WBC (Bld) [#/Vol] 10.5 10*3/uL Normal 4.4-11.0 [facility] Comment on above: Performed By: #### L 100.0100, L500.4050 ####[facility] [address] [facility] [place], [place], [address] Calcium oxalate crystals LM Ql (Urine sed)Ordered By: Darius Ryan on 06-01-2024 Urine Calcium Oxalate Crystals 1+ /hpf [facility] Carbon dioxide, total [Moles /volume] in Central venous bloodOrdered By: Darius Ryan on 06-01-2024 CO2 [Moles/Vol] 29.1 mmol/L 21.0-32.0 [facility] Chest 1 View (Portable)on Chest 1 View (Portable) [facility] Imaging Services [address] [place] [address] Chest 1 View (Portable) MR#: [id number] Acct: [id number] Name: DAVID STREET Rep #: [id number] : 1950 F 73 From: Justin Jackson MD PCP: Dr. Richie Heredia DO Status: [facility] ER Study: Chest 1 View (Portable) Date of Exam: 06/01/24 Exam# [id number] Ordering Dr: Darius Ryan DO EXAM: XR Chest, 1 View CLINICAL INDICATION: WEAKNESS TECHNIQUE: Frontal view of the chest. COMPARISON: No relevant prior studies available. FINDINGS: LUNGS AND PLEURAL SPACES: Unremarkable. No consolidation. No pneumothorax. HEART: Unremarkable. No cardiomegaly. MEDIASTINUM: Unremarkable. Normal mediastinal contour. BONES/JOINTS: Unremarkable. No acute fracture. RAD/Chest 1 View (Portable) IMPRESSION: No acute cardiopulmonary process. Reading [facility] CC: Dr. Darius Ryan DO; Dr. Richie Heredia DO Road Crossing Guard: Signed Normal [facility] Chloride assayOrdered By: Reymundo Ryan on 06-01-2024 Chloride [Moles/Vol] 98 mmol/L 98-108 [facility] Comprehensive Metabolic Prof ilon 06-01-2024 Albumin [Mass/Vol] 3.7 g/dL Normal 3.4-4.[address] [facility] Comment on above: Performed By: #### L 100.0100, L500.4050 ####[facility] [address] [place], [address] Albumin/Globulin [Mass ratio] 1.3 {ratio} Normal 0.9-2.4 [facility] Comment on above: Performed By: #### L 100.0100, L500.4050 ####[facility] [address] [place], [address] ALK PHOS 104 U/L Normal 35-104 [facility] Comment on above: Performed By: #### L 100.0100, L500.4050 ####[facility] [address] [place], [address] ALT [Catalytic activity/Vol] 17 U/L Normal <=34 [facility] Comment on above: Performed By: #### L 100.0100, L500.4050 ####[facility] [address] [place], [address] AST [Catalytic activity/Vol] 17 U/L Normal <=31 [facility] Comment on above: Performed By: #### L 100.0100, L500.4050 ####[facility] [address] [place], [address] BUN/CRE 20.4 RATIO High 10-20 [facility] Comment on above: Performed By: #### L 100.0100, L500.4050 ####[facility] [address] [place], [address] Calcium [Mass/Vol] 9.2 mg/dL Normal 7.6-11.[address] [facility] Comment on above: Performed By: #### L 100.0100, L500.4050 ####[facility] [address] [place], [address] Chloride [Moles/Vol] 98 mmol/L Normal 98-108 [facility] Comment on above: Performed By: #### L 100.0100, L500.4050 ####[facility] [address] [place], [address] CO2 [Moles/Vol] 29.1 mmol/L Normal 21.0-32.0 [facility] Comment on above: Performed By: #### L 100.0100, L500.4050 ####[facility] [address] [place], [address] Creatinine [Mass/Vol] 1.63 mg/dL High 0.70-1.20 [facility] Comment on above: Performed By: #### L 100.0100, L500.4050 ####[facility] [address] [place], [address] ECRCL 35.55 ml/min Low 50-250 [facility] Comment on above: Performed By: #### L 100.0100, L500.4050 ####[facility] [address] [place], [address] GAP 11 Normal 5-15 [facility] Comment on above: Performed By: #### L 100.0100, L500.4050 ####[facility] [address] [place], [address] GFR/1.73 sq M.predicted among non-blacks MDRD (S/P/Bld) [Vol rate/Area] 33 mL/min/{1.73_m2} Low >60 [facility] Comment on above: Result Comment: mL/m in/1.73m2 CKD-EPI Creatinine Equation (2020) Performed By: #### L 100.0100, L500.4050 ####[facility] [address] [place], [address] Globulin (S) [Mass/Vol] 3.0 g/dL Normal 2.2-4.2 [facility] Comment on above: Performed By: #### L 100.0100, L500.4050 ####[facility] [address] [place], [address] Glucose [Mass/Vol] 211 mg/dL High 70-[address] [facility] Comment on above: Performed By: #### L 100.0100, L500.4050 ####[facility] [address] [place], [address] Potassium [Moles/Vol] 3.4 mmol/L Normal 3.3-5.1 [facility] Comment on above: Performed By: #### L 100.0100, L500.4050 ####[facility] [address] [place], [address] Sodium [Moles/Vol] 138 mmol/L Normal 133-[address] [facility] Comment on above: Performed By: #### L 100.0100, L500.4050 ####[facility] [address] [place], [address] T BILI < 0.15 Normal 0.00-1.30 [facility] Comment on above: Performed By: #### L 100.0100, L500.4050 ####[facility] [address] [place], [address] T PROT 6.7 g/dL Normal 5.9-8.4 [facility] Comment on above: Performed By: #### L 100.0100, L500.4050 ####[facility] [address] [place], [address] Urea nitrogen [Mass/Vol] 33 mg/dL High 4-19 [facility] Comment on above: Performed By: #### L 100.0100, L500.4050 ####[facility] [address] [place], [address] Emergency Department Summary on 06-01-2024 Emergency Department Summary [facility] Medical Records Department [address] [place] [address] Emergency Department Summary 06/01/24 MR#: [id number] Acct: [id number] Name: DAVID STREET Rep #: [id number] : 1950 73 From: Darius Ryan DO [...] felt weak. She states that her home hospice rn came this morning and she was very [...] whenever she tries to give a specimen. [facility] Medical History Morbid obesity HTN [...] orthopnea, palpitation (more content not included)... Normal [facility] Eosinophil percentageOrdered By: Darius Ryan on 06-01-2024 Eosinophils/100 WBC (Bld) 2.8 % 0-5 [facility] Epithelial cells.renal LM.HP F (Urine sed) [#/Area]Ordered By: Darius Ryan on 06-01-2024 Urine Renal Epithelial Cells 0-5 SEEN /hpf 0-5 [facility] Epithelial cells.squamous LM Ql (Urine sed)Ordered By: Darius Ryan on 06-01-2024 Epithelial cells.squamous LM.HPF (Urine sed) [#/Area] 0 /[HPF] 5-10 [facility] Erythrocyte distribution wid th (RBC) [Ratio]Ordered By: Darius Ryan on 06-01-2024 Erythrocyte distribution width (RBC) [Entitic vol] 49.4 fL High 35.1-43.9 [facility] Erythrocyte distribution wid th ratioOrdered By: Darius Ryan on 06-01-2024 Erythrocyte distribution width (RBC) [Ratio] 13.8 % 11.6-14.6 [facility] Estimation of creatinine crissy aranceOrdered By: Darius Ryan on 06-01-2024 Estimated Creatinine Clearance Calc 35.55 ml/min Low 50-250 [facility] GFR/1.73 sq M.predicted olga g non-blacks MDRD (S/P/Bld) [Vol rate/Area]Ordered By: Darius Ryan on 06-01-2024 Estimated GFR (MDRD) Non-Af Amer 33 Low >60 [facility] Comment on above: mL/min/1.73m2 CKD-EP I Creatinine Equation (2020) Glucose Ql (U)Ordered By: Reymundo Ryan on 06-01-2024 Glucose (U) [Mass/Vol] 1000 mg/dL High Normal [facility] Hematocrit Auto (Bld) [Volum e fraction]Ordered By: Darius Ryan on 06-01-2024 Hematocrit (Bld) [Volume fraction] 36.6 % Low 37-47 [facility] Hemoglobin measurementOrdere d By: Darius Ryan on 06-01-2024 Hemoglobin (Bld) [Mass/Vol] 11.8 g/dL Low 12.0-15.0 [facility] Immature granulocytes/100 WB C Auto (Bld)Ordered By: Darius Ryan on 06-01-2024 Immature granulocytes/100 WBC (Bld) 0.500 % 0.0-0.9 [facility] Comment on above: IG% - Immature Granu locytes (promyelocytes, myelocytes and metamyelocytes) > 1% indicates that a LEFT SHIFT is Present. Influenza virus A and B and SARS-CoV-2 (COVID-19) and Respiratory syncytial virus RNAOrdered By: Darius Ryan on 06-01-2024 SARS-CoV-2 (COVID-19) RNA IVAN+probe Ql (Unsp spec) [facility] Ketones Test strip Ql (U)Ord ered By: Darius Ryan on 06-01-2024 Ketones Ql (U) Negative Negative [facility] Laboratory - Chemistry and C hemistry - challengeOrdered By: Darius Ryan on 06-01-2024 AST [Catalytic activity/Vol] 17 U/L <32 [facility] Lymphocytes Auto (Unsp spec) [#/Vol]Ordered By: Darius Ryan on 06-01-2024 Lymphocytes (Bld) [#/Vol] 2.69 10*3/uL 0.83-4.51 [facility] Lymphocytes/100 WBC Auto (Un sp spec)Ordered By: Darius Ryan on 06-01-2024 Lymphocytes/100 WBC (Bld) 25.7 % 19-41 [facility] M100.678on 06-01-2024 M100.678 Normal Reference Range = Negative FLUABV+SARS-CoV-2+RS V Pnl Resp IVAN+probe GeneXpert Instrument, PCR method SARS-CoV-2 (COVID 19) Negative INFLUENZA A Negative INFLUENZA B Negative RSV PCR Negative Normal [facility] Comment on above: Performed By: #### L 501.4020, L500.2500, L100.0100 #### [facility] [address] [place], [address] MCV (mean corpuscular volume ) determinationOrdered By: Darius Ryan on 06-01-2024 MCV (RBC) [Entitic vol] 98.1 fL 81-99 [facility] Mean corpuscular hemoglobin (MCH) determinationOrdered By: Darius Ryan on 06-01-2024 MCH (RBC) [Entitic mass] 31.6 pg 27.0-32.0 [facility] Mean corpuscular hemoglobin concentration (MCHC) determinationOrdered By: Darius Ryan on 06-01-2024 MCHC (RBC) [Mass/Vol] 32.2 g/dL 32-36 [facility] Mean platelet volume determi nationOrdered By: Darius Ryan on 06-01-2024 Platelet mean volume (Bld) [Entitic vol] 11.4 fL 6.2-12.0 [facility] Microscopic analysis of urin e for red blood cells (RBC)Ordered By: Darius Ryan on 06-01-2024 Urine RBC 0-5 SEEN /hpf 0-5 [facility] Monocyte percentageOrdered B y: Darius Ryan on 06-01-2024 Monocytes/100 WBC (Bld) 5.7 % 0-10 [facility] Mucus LM Ql (Urine sed)Order ed By: Darius Ryan on 06-01-2024 Mucus Ql (Urine sed) 0 SEEN /hpf [facility] Neutrophil percentageOrdered By: Darius Ryan on 06-01-2024 Neutrophils/100 WBC (Bld) 64.8 % 47-70 [facility] Nitrite Test strip Ql (U)Ord ered By: Darius Ryan on 06-01-2024 Nitrite Ql (U) Positive High Negative [facility] Nucleated red blood cell per centageOrdered By: Darius Ryan on 06-01-2024 Nucleated RBC/100 WBC (Bld) [Ratio] 0 % 0-5 [facility] Platelet countOrdered By: Reymundo Ryan on 06-01-2024 Platelets (Bld) [#/Vol] 339 10*3/uL 150-450 [facility] Potassium (Unsp spec) [Mass/ Vol]Ordered By: Darius Ryan on 06-01-2024 Potassium [Moles/Vol] 3.4 mmol/L 3.3-5.1 [facility] Protein Test strip Ql (U)Ord ered By: Darius Ryan on 06-01-2024 Protein Ql (U) Negative Negative [facility] RBC Auto (Bld) [#/Vol]Ordere d By: Darius Ryan on 06-01-2024 RBC (Bld) [#/Vol] 3.73 10*6/uL Low 4.2-5.4 [facility] Serum creatinine measurement (mass/volume)Ordered By: Darius Ryan on 06-01-2024 Creatinine [Mass/Vol] 1.63 mg/dL High 0.70-1.20 [facility] Serum globulin measurementOr dered By: Darius Ryan on 06-01-2024 Globulin (S) [Mass/Vol] 3.0 g/dL 2.2-4.2 [facility] Serum glucose measurement (m ass/volume)Ordered By: Darius Ryan on 06-01-2024 Glucose [Mass/Vol] 211 mg/dL High 70-[address] [facility] Serum or plasma alanine lawson otransferase (ALT) measurementOrdered By: Darius Ryan on 06-01-2024 ALT [Catalytic activity/Vol] 17 U/L <35 [facility] Serum or plasma albumin brittny urement (mass/volume)Ordered By: Darius Ryan on 06-01-2024 Albumin [Mass/Vol] 3.7 g/dL 3.4-4.[address] [facility] Serum or plasma albumin/glob ulin mass ratioOrdered By: Darius Ryan on 06-01-2024 Albumin/Globulin [Mass ratio] 1.3 {ratio} 0.9-2.4 [facility] Serum or plasma alkaline ghazala sphatase measurementOrdered By: Darius Ryan on 06-01-2024 ALP [Catalytic activity/Vol] 104 U/L 35-104 [facility] Serum or plasma calcium brittny urement (mass/volume)Ordered By: Darius Ryan on 06-01-2024 Calcium [Mass/Vol] 9.2 mg/dL 7.6-11.[address] [facility] Serum or plasma urea nitroge n measurement (mass/volume)Ordered By: Darius Ryan on 06-01-2024 Urea nitrogen [Mass/Vol] 33 mg/dL High 4-19 [facility] Sodium levelOrdered By: Jason Ryan on 06-01-2024 Sodium [Moles/Vol] 138 mmol/L 133-[address] [facility] Total proteinOrdered By: Bruce Ryan on 06-01-2024 Protein [Mass/Vol] 6.7 g/dL 5.9-8.[address] [facility] Urinalysis, Completeon 06-01 BACTERIA 1+ /hpf Normal None Seen [facility] Comment on above: Order Comment: AUDREY TER SPECIMEN Performed By: #### L 400.0001 ####[facility] [address] [place], [place], [address] EPI,RENAL 0-5 SEEN Normal 0-5 [facility] Comment on above: Order Comment: AUDREY TER SPECIMEN Performed By: #### L 400.0001 ####[facility] [address] [place], [address] RBC 0-5 SEEN Normal 0-5 [facility] Comment on above: Order Comment: AUDREY TER SPECIMEN Performed By: #### L 400.0001 ####[facility] [address] [place], [address] WBC 0-5 SEEN Normal 0-5 [facility] Comment on above: Order Comment: AUDREY TER SPECIMEN Performed By: #### L 400.0001 ####[facility] [address] [place], [address] CA OX CRYSTAL 1+ /hpf Normal [facility] Comment on above: Order Comment: AUDREY TER SPECIMEN Performed By: #### L 400.0001 ####[facility] [address] [place], [address] EPI,SQUAMOUS 0 SEEN Normal 5-10 [facility] Comment on above: Order Comment: AUDREY TER SPECIMEN Performed By: #### L 400.0001 ####[facility] [address] [place], [address] Mucus Ql (Urine sed) 0 SEEN Normal [facility] Comment on above: Order Comment: AUDREY TER SPECIMEN Performed By: #### L 400.0001 ####[facility] [address] [place], [address] Urine blood detectionOrdered By: Darius Ryan on 06-01-2024 Urine Occult Blood 10 /ul High Negative [facility] Urine clarityOrdered By: Bruce Ryan on 06-01-2024 Clarity (U) Cloudy Clear [facility] Urine color determinationOrd ered By: Darius Ryan on 06-01-2024 Color (U) Straw Yellow [facility] Urine leukocyte esterase det ection by dipstickOrdered By: Darius Ryan on 06-01-2024 Leukocyte esterase Test strip Ql (U) 100 /ul High Negative [facility] Urine pHOrdered By: Darius jennings on 06-01-2024 pH (U) 5.0 [pH] 5.0 - 8.0 [facility] Urine sediment bacteria coun t by microscopy (number/high power field)Ordered By: Darius Ryan on 06-01-2024 Bacteria LM.HPF (Urine sed) [#/Area] 1 /[HPF] None Seen [facility] Urine specific gravity measu rementOrdered By: Darius Ryan on 06-01-2024 Specific gravity (U) [Rel density] 1.010 1.002-1.030 [facility] Urobilinogen Ql (U)Ordered B y: Darius Ryan on 06-01-2024 Urine Urobilinogen Normal mg/dl Normal [facility] White blood cell (WBC) count Ordered By: Darius Ryan on 06-01-2024 WBC (Bld) [#/Vol] 10.5 10*3/uL 4.4-11.0 [facility] White blood cell countOrdere d By: Darius Ryan on 06-01-2024 Urine WBC 0-5 SEEN /hpf 0-5 [facility] MALBRon 05-05-2024 U Ratio Alb/Cre 61 mg/G High 0-30 [facility] Comment on above: Performed By: #### U AMICAO, UA #### [place] [address] .Urinalysis Microscopic (AO) on 04-20-2024 UA Bacteria 3+ /hpf Abnormal [facility] Comment on above: Performed By: #### U AMICAO, UA #### [place] [address] UA RBC 0-5 Abnormal None Seen [facility] Comment on above: Performed By: #### U AMICAO, UA #### [address] [address] UA Squam Epithelial 5-10 Abnormal None Seen [facility] Comment on above: Performed By: #### U AMICAO, UA #### [place] [address] UA WBC LOADED Abnormal None Seen [facility] Comment on above: Performed By: #### U AMICAO, UA #### [place] [id number] LABORATORYOrdered By: Kristie Hollis on 04-20-2024 Appearance [...] Probable Contamination. Suggest recollection if clinically indicated. [facility] Work Phone: UAon 04-20-2024 Color (U) Yellow Normal [facility] Comment on above: Performed By: #### U TEEO, UA #### [address] [address] Glucose (U) [Mass/Vol] mg/dL Abnormal Negative [facility] Comment on above: Performed By: #### U AMICAO, UA #### [address] [address] Ketones Ql (U) Negative Normal Negative [facility] Comment on above: Performed By: #### U AMICAO, UA #### [place] [address] UA Appear Cloudy Abnormal Clear [facility] Comment on above: Performed By: #### U AMICAO, UA #### [place] [address] UA Blood Trace Abnormal Negative [facility] Comment on above: Performed By: #### U AMICAO, UA #### [place] [address] UA Leuk Est Small Abnormal Negative [facility] Comment on above: Performed By: #### U AMICAO, UA #### [place] [address] UA Nitrite Positive Abnormal Negative [facility] Comment on above: Performed By: #### U AMICAO, UA #### [place] [address] UA pH 6.5 Normal 5.0 - 8.0 [facility] Comment on above: Performed By: #### U AMICAO, UA #### [address] [address] UA Protein Negative Normal Negative [facility] Comment on above: Performed By: #### U AMICAO, UA #### [place] [address] UA Spec Grav 1.015 Normal 1.015-1.025 [facility] Comment on above: Performed By: #### U AMICAO, UA #### [place] [address] UA Specimen Type Clean Catch Normal [facility] Comment on above: Performed By: #### U AMICAO, UA #### [place] [address] UA Urobilinogen 0.2 E.U./dL Normal 0.2-1.0 [facility] Comment on above: Performed By: #### U AMICAO, UA #### [place] [address] Urobilinogen (U) [Mass/Vol] Negative Normal Negative [facility] Comment on above: Performed By: #### U AMICAO, UA #### [place] [address] MALBRon 03-31-2024 U Creatinine 71.3 mg/dL Normal [facility] Comment on above: Performed By: #### U AMICAO, UA #### [place] [address] U Microalb 43.7 mg/L Normal [facility] Comment on above: Performed By: #### U AMICAO, UA #### [place] [address] .Urinalysis Microscopic (AO) on 03-27-2024 UA Bacteria 1+ /hpf Abnormal [facility] Comment on above: Performed By: #### U AMICAO, UA #### [place] [address] UA RBC LOADED Abnormal None Seen [facility] Comment on above: Performed By: #### U AMICAO, UA #### [address] [address] UA Squam Epithelial None Seen Normal None Seen [facility] Comment on above: Performed By: #### U AMICAO, UA #### [place] [address] UA WBC 5-10 Abnormal None Seen [facility] Comment on above: Performed By: #### U AMICAO, UA #### [place] [address] [place], [place] [address] LABORATORYOrdered By: Pancho Luna on 03-27-2024 Appearance [...] SS UAon 03-27-2024 Color (U) Brown Abnormal [facility] Comment on above: Performed By: #### U PARVEZ UA #### [place] [address] [place], [place] [address] Glucose (U) [Mass/Vol] mg/dL Abnormal Negative [facility] Comment on above: Performed By: #### U AMICAO, UA #### [place] [address] Ketones Ql (U) Negative Normal Negative [facility] Comment on above: Performed By: #### U AMICAO, UA #### [place] [address] UA Appear Cloudy Abnormal Clear [facility] Comment on above: Performed By: #### U AMICAO, UA #### [address] [address] UA Blood Large Abnormal Negative [facility] Comment on above: Performed By: #### U AMICAO, UA #### [place] [address] UA Leuk Est Trace Abnormal Negative [facility] Comment on above: Performed By: #### U AMICAO, UA #### [place] [address] UA Nitrite Positive Abnormal Negative [facility] Comment on above: Performed By: #### U AMICAO, UA #### [place] [address] UA pH 5.5 Normal 5.0 - 8.0 [facility] Comment on above: Performed By: #### U AMICAO, UA #### [place] [address] UA Protein >=300 Abnormal Negative [facility] Comment on above: Performed By: #### U AMICAO, UA #### [place] [address] UA Spec Grav 1.015 Normal 1.015-1.025 [facility] Comment on above: Performed By: #### U AMICAO, UA #### [place] [address] UA Specimen Type Void Normal [facility] Comment on above: Performed By: #### U AMICAO, UA #### [facility] [address] [place], [place] [address] UA Urobilinogen 1.0 E.U./dL Normal 0.2-1.0 [facility] Comment on above: Performed By: #### U AMICAO, UA #### [facility] [address] [place], [place] [address] Urobilinogen (U) [Mass/Vol] Negative Normal Negative [facility] Comment on above: Performed By: #### U AMICAO, UA #### [facility] [address] [place], [place] [address] L501.4020on 03-10-2024 TROPONIN-I HS 17 pg/mL Normal 3.0-54.0 [facility] Comment on above: Order Comment: 'TROP ' Serial specimen #1, #2 or #3: 2 Result Comment: Pledena feng Note: New Test Units and Gender Specific Reference Ranges. For more information see Policy Stat Procedure [place] High Sensitivity Troponin (TNIH) and attachments. Performed By: #### L 501.4020 ####[facility] [address] [place], [address] Troponin IOrdered By: Hunter cao on 03-10-2024 Troponin I High Sensitivity 17 pg/mL 3.0-54.0 [facility] Comment on above: Please Note: New Alanis t Units and Gender Specific Reference Ranges. For more information see Policy Stat Procedure [place] High Sensitivity Troponin (TNIH) and attachments. Absolute neutrophil countOrd ered By: Hunter Ryan on 03-09-2024 Neutrophils (Bld) [#/Vol] 8.8 10*3/uL High 2.0-7.7 [facility] BNP (brain natriuretic pepti de measurement)Ordered By: Hunter Ryan on 03-09-2024 Natriuretic peptide B (Bld) [Mass/Vol] 49.2 pg/mL 0-100 [facility] BNP,B-Type NATRIURETIC PEPTI Rory 03-09-2024 Natriuretic peptide B (Bld) [Mass/Vol] 49.2 pg/mL Normal 0-100 [facility] Comment on above: Performed By: #### L 501.080 #### [facility] [address] [place], [address] Basic Metabolic Profile (BMP )on 03-09-2024 BUN/CRE 13.7 RATIO Normal 10-20 [facility] Comment on above: Order Comment: 'TROP ' Serial specimen #1, #2 or #3: 1 Performed By: #### L 501.080 #### [facility] [address] [place], [address] CA,Total 9.9 mg/dL Normal 8.5-10.1 [facility] Comment on above: Order Comment: 'TROP ' Serial specimen #1, #2 or #3: 1 Performed By: #### L 501.080 #### [facility] [address] [place], [address] Chloride [Moles/Vol] 102 mmol/L Normal 98-107 [facility] Comment on above: Order Comment: 'TROP ' Serial specimen #1, #2 or #3: 1 Performed By: #### L 501.080 #### [facility] [address] [place], [address] CO2 [Moles/Vol] 28.0 mmol/L Normal 21.0-32.0 [facility] Comment on above: Order Comment: 'TROP ' Serial specimen #1, #2 or #3: 1 Performed By: #### L 501.080 #### [facility] [address] [place], [address] Creatinine [Mass/Vol] 1.46 mg/dL High 0.55-1.02 [facility] Comment on above: Order Comment: 'TROP ' Serial specimen #1, #2 or #3: 1 Result Comment: The validity of the calculated GFR GFRAA in patients over 70 years has not been determined. Clinical correlation is essential. Performed By: #### L 501.080 #### [facility] [address] [place], [address] ECRCL 37.51 ml/min Normal [facility] Comment on above: Order Comment: 'TROP ' Serial specimen #1, #2 or #3: 1 Performed By: #### L 501.080 #### [facility] [address] [place], [address] EST GFR - AA 45 mL/min Low >60 [facility] Comment on above: Order Comment: 'TROP ' Serial specimen #1, #2 or #3: 1 Result Comment: Afri can Slovenian GFR Calc Performed By: #### L 501.080 #### [facility] [address] [place], [address] GAP 7 Normal 5-15 [facility] Comment on above: Order Comment: 'TROP ' Serial specimen #1, #2 or #3: 1 Performed By: #### L 501.080 #### [facility] [address] [place], [address] GFR/1.73 sq M.predicted among non-blacks MDRD (S/P/Bld) [Vol rate/Area] 37 mL/min/{1.73_m2} Low >60 [facility] Comment on above: Order Comment: 'TROP ' Serial specimen #1, #2 or #3: 1 Result Comment: Non- GFR Calc Performed By: #### L 501.080 #### [facility] [address] [place], [address] Glucose [Mass/Vol] 171 mg/dL High 74-[address] [facility] Comment on above: Order Comment: 'TROP ' Serial specimen #1, #2 or #3: 1 Result Comment: Fast ing Glucose result greater than or equal to 126 mg/dL suggests DIABETES MELLITUS per A.D.A. criteria. Performed By: #### L 501.080 #### [facility] [address] [place], [address] Potassium [Moles/Vol] 3.8 mmol/L Normal 3.5-5.1 [facility] Comment on above: Order Comment: 'TROP ' Serial specimen #1, #2 or #3: 1 Result Comment: Mode rate Hemolysis, Result may be falsely increased. Performed By: #### L 501.080 #### [facility] [address] [place], [address] Sodium [Moles/Vol] 137 mmol/L Normal 136-[address] [facility] Comment on above: Order Comment: 'TROP ' Serial specimen #1, #2 or #3: 1 Performed By: #### L 501.080 #### [facility] [address] [place], [address] Urea nitrogen [Mass/Vol] 20 mg/dL High 7-18 [facility] Comment on above: Order Comment: 'TROP ' Serial specimen #1, #2 or #3: 1 Performed By: #### L 501.080 #### [facility] [address] [place], [address] Basophil percentageOrdered B y: Hunter Ryan on 03-09-2024 Basophils/100 WBC (Bld) 0.8 % 0-1 [facility] Blood urea nitrogen (BUN)/cr eatinine ratioOrdered By: Hunter Ryan on 03-09-2024 Urea nitrogen/Creatinine [Mass ratio] 13.7 mg/mg 10-20 [facility] CBC W/Diff, Automatedon 02-22 Absolute Lymph 3.14 X10 3/uL Normal 0.83-4.51 [facility] Comment on above: Performed By: #### L 501.080 #### [facility] [address] [place], [address] Absolute Neut 8.8 X10 3/uL High 2.0-7.7 [facility] Comment on above: Performed By: #### L 501.080 #### [facility] [address] [place], [address] Basophils/100 WBC (Bld) 0.8 % Normal 0-1 [facility] Comment on above: Performed By: #### L 501.080 #### [facility] [address] [place], [address] Eosinophils/100 WBC (Bld) 0.8 % Normal 0-5 [facility] Comment on above: Performed By: #### L 501.080 #### [facility] [address] [place], [address] Erythrocyte distribution width (RBC) [Ratio] 14.0 % Normal 11.6-14.6 [facility] Comment on above: Performed By: #### L 501.080 #### [facility] [address] [place], [address] Hematocrit (Bld) [Volume fraction] 44.8 % Normal 37-47 [facility] Comment on above: Performed By: #### L 501.080 #### [facility] [address] [place], [address] Hemoglobin (Bld) [Mass/Vol] 14.9 g/dL Normal 12.0-15.0 [facility] Comment on above: Performed By: #### L 501.080 #### [facility] [address] [place], [address] IG% 0.800 Normal 0.0-0.9 [facility] Comment on above: Result Comment: IG% - Immature Granulocytes (promyelocytes, myelocytes and metamyelocytes) > 1% indicates that a LEFT SHIFT is Present. Performed By: #### L 501.080 #### [facility] [address] [place], [address] Lymphocytes/100 WBC (Bld) 23.9 % Normal 19-41 [facility] Comment on above: Performed By: #### L 501.080 #### [facility] [address] [place], [address] MCH (RBC) [Entitic mass] 32.0 pg Normal 27.0-32.0 [facility] Comment on above: Performed By: #### L 501.080 #### [facility] [address] [place], [address] MCHC (RBC) [Mass/Vol] 33.3 g/dL Normal 32-36 [facility] Comment on above: Performed By: #### L 501.080 #### [facility] [address] [place], [address] MCV (RBC) [Entitic vol] 96.3 fL Normal 81-99 [facility] Comment on above: Performed By: #### L 501.080 #### [facility] [address] [place], [address] Monocytes/100 WBC (Bld) 6.5 % Normal 0-10 [facility] Comment on above: Performed By: #### L 501.080 #### [facility] [address] [place], [address] Neutrophils/100 WBC (Bld) 67.2 % Normal 47-70 [facility] Comment on above: Performed By: #### L 501.080 #### [facility] [address] [place], [address] Nucleated RBC (Bld) [#/Vol] 0 10*3/uL Normal 0-5 [facility] Comment on above: Performed By: #### L 501.080 #### [facility] [address] [place], [address] Platelet mean volume (Bld) [Entitic vol] 11.7 fL Normal 6.2-12.0 [facility] Comment on above: Performed By: #### L 501.080 #### [facility] [address] [place], [address] Platelets (Bld) [#/Vol] 332 10*3/uL Normal 150-450 [facility] Comment on above: Performed By: #### L 501.080 #### [facility] [address] [place], [address] RBC (Bld) [#/Vol] 4.65 10*6/uL Normal 4.2-5.4 [facility] Comment on above: Performed By: #### L 501.080 #### [facility] [address] [place], [address] RDW SD 49.6 fl High 35.1-43.9 [facility] Comment on above: Performed By: #### L 501.080 #### [facility] [address] [place], [address] WBC (Bld) [#/Vol] 13.1 10*3/uL High 4.4-11.0 [facility] Comment on above: Performed By: #### L 501.080 #### [facility] [address] [place], [address] Carbon dioxide measurementOr dered By: Hunter Ryan on 03-09-2024 CO2 [Moles/Vol] 28.0 mmol/L 21.0-32.0 [facility] Chest 1 View (Portable)on Chest 1 View (Portable) [facility] Imaging Services [address] [place] [address] Chest 1 View (Portable) MR#: [id number] Acct: [id number] Name: DAVID STREET Rep #: [id number] : 1950 F 73 From: Perez Khoury MD PCP: Dr. Richie Heredia, DO Status: [facility] ER Study: Chest 1 View (Portable) Date of Exam: 03/09/24 Exam# [id number] Ordering Dr: Hunter Ryan MD [id number] EXAM: XR CHEST, 1 VIEW CLINICAL INDICATION: [...] Hunter Ryan MD; Dr. Richie Heredia DO Road Crossing Guard: Signed Normal [facility] Chloride measurementOrdered By: Hunter Ryan on 03-09-2024 Chloride [Moles/Vol] 102 mmol/L 98-107 [facility] Emergency Department Summary on 03-09-2024 Emergency Department Summary [facility] Medical Records Department [address] [place] [address] Emergency Department Summary 03/09/24 MR#: [id number] Acct: [id number] Name: DAVID STREET Rep #: [id number] : 1950 73 From: Hunter Ryan MD [...] BID PRN rash 03/09/24 Unknown History powder ([facility]) oxycodone-acetaminop hen 5 mg-325 1 tab PO [...] Positive n (more content not included)... Normal [facility] Eosinophil percentageOrdered By: Hunter Ryan on 03-09-2024 Eosinophils/100 WBC (Bld) 0.8 % 0-5 [facility] Erythrocyte distribution wid th (RBC) [Ratio]Ordered By: Hunter Ryan on 03-09-2024 Erythrocyte distribution width (RBC) [Entitic vol] 49.6 fL High 35.1-43.9 [facility] Erythrocyte distribution wid th ratioOrdered By: Hunter Ryan on 03-09-2024 Erythrocyte distribution width (RBC) [Ratio] 14.0 % 11.6-14.6 [facility] Estimated glomerular filtrat ion rate (GFR) AmericanOrdered By: Hunter Ryan on 03-09-2024 Estimated GFR (MDRD) Amer 45 mL/min Low >60 [facility] Comment on above: GFR Calc Estimation of creatinine crissy aranceOrdered By: Hunter Ryan on 03-09-2024 Estimated Creatinine Clearance Calc 37.51 ml/min [facility] Glomerular filtration rate ( GFR) estimationOrdered By: Hunter Rayn on 03-09-2024 Estimated GFR (MDRD) Non-Af Amer 37 mL/min Low >60 [facility] Comment on above: Non- GFR Calc Glucose measurementOrdered B y: Hunter Ryan on 03-09-2024 Glucose [Mass/Vol] 171 mg/dL High 74-[address] [facility] Comment on above: Fasting Glucose resu lt greater than or equal to 126 mg/dL suggests DIABETES MELLITUS per A.D.A. criteria. Hematocrit Auto (Bld) [Volum e fraction]Ordered By: Hunter Ryan on 03-09-2024 Hematocrit (Bld) [Volume fraction] 44.8 % 37-47 [facility] Hemoglobin measurementOrdere d By: Hunter Ryan on 03-09-2024 Hemoglobin (Bld) [Mass/Vol] 14.9 g/dL 12.0-15.0 [facility] Immature granulocytes/100 WB C Auto (Bld)Ordered By: Hunter Ryan on 03-09-2024 Immature granulocytes/100 WBC (Bld) 0.800 % 0.0-0.9 [facility] Comment on above: IG% - Immature Granu locytes (promyelocytes, myelocytes and metamyelocytes) > 1% indicates that a LEFT SHIFT is Present. Influenza virus A and B and SARS-CoV-2 (COVID-19) and Respiratory syncytial virus RNAOrdered By: Hunter Ryan on 03-09-2024 SARS-CoV-2 (COVID-19) RNA IVAN+probe Ql (Unsp spec) [facility] L501.4020on 03-09-2024 TROPONIN-I HS 16 pg/mL Normal 3.0-54.0 [facility] Comment on above: Order Comment: 'TROP ' Serial specimen #1, #2 or #3: 1 Result Comment: Plea se Note: New Test Units and Gender Specific Reference Ranges. For more information see Policy Stat Procedure [place] High Sensitivity Troponin (TNIH) and attachments. Performed By: #### L 501.080 #### [facility] [address] [place] [place], [address] Lymphocytes Auto (Unsp spec) [#/Vol]Ordered By: Hnuter Ryan on 03-09-2024 Lymphocytes (Bld) [#/Vol] 3.14 10*3/uL 0.83-4.51 [facility] Lymphocytes/100 WBC Auto (Un sp spec)Ordered By: Hunter Ryan on 03-09-2024 Lymphocytes/100 WBC (Bld) 23.9 % 19-41 [facility] M100.678on 03-09-2024 M100.678 Pending SARS-CoV-2 (COVID 19) Negative INFLUENZA A Negative INFLUENZA B Negative RSV PCR Negative Normal [facility] Comment on above: Performed By: #### L 501.4020, L500.2500, L100.0100 #### [facility] [address] [facility] [place], [address] MCV (mean corpuscular volume ) determinationOrdered By: Hunter Ryan on 03-09-2024 MCV (RBC) [Entitic vol] 96.3 fL 81-99 [facility] Mean corpuscular hemoglobin (MCH) determinationOrdered By: Hunter Ryan on 03-09-2024 MCH (RBC) [Entitic mass] 32.0 pg 27.0-32.0 [facility] Mean corpuscular hemoglobin concentration (MCHC) determinationOrdered By: Hunter Ryan on 03-09-2024 MCHC (RBC) [Mass/Vol] 33.3 g/dL 32-36 [facility] Mean platelet volume determi nationOrdered By: Hunter Ryan on 03-09-2024 Platelet mean volume (Bld) [Entitic vol] 11.7 fL 6.2-12.0 [facility] Monocyte percentageOrdered B y: Hunter Ryan on 03-09-2024 Monocytes/100 WBC (Bld) 6.5 % 0-10 [facility] Neutrophil percentageOrdered By: Hunter Ryan on 03-09-2024 Neutrophils/100 WBC (Bld) 67.2 % 47-70 [facility] Nucleated red blood cell per centageOrdered By: Hunter Ryan on 03-09-2024 Nucleated RBC/100 WBC (Bld) [Ratio] 0 % 0-5 [facility] Platelet countOrdered By: Reynold Ryan on 03-09-2024 Platelets (Bld) [#/Vol] 332 10*3/uL 150-450 [facility] Potassium measurementOrdered By: Hunter Ryan on 03-09-2024 Potassium [Moles/Vol] 3.8 mmol/L 3.5-5.1 [facility] Comment on above: Moderate Hemolysis, Result may be falsely increased. RBC Auto (Bld) [#/Vol]Ordere d By: Hunter Ryan on 03-09-2024 RBC (Bld) [#/Vol] 4.65 10*6/uL 4.2-5.4 [facility] Serum anion gap measurementO rdered By: Hunter Ryan on 03-09-2024 Anion gap [Moles/Vol] 7 mmol/L 5-15 [facility] Serum or plasma calcium brittny urement (mass/volume)Ordered By: Hunter Ryan on 03-09-2024 Calcium [Mass/Vol] 9.9 mg/dL 8.5-10.[address] [facility] Serum or plasma creatinine m easurement (mass/volume)Ordered By: Hunter Ryan on 03-09-2024 Creatinine [Mass/Vol] 1.46 mg/dL High 0.55-1.02 [facility] Comment on above: The validity of the calculated GFR & GFRAA in patients over 70 years has not been determined. Clinical correlation is essential. Serum or plasma urea nitroge n measurement (mass/volume)Ordered By: Hunter Ryan on 03-09-2024 Urea nitrogen [Mass/Vol] 20 mg/dL High 7-18 [facility] Sodium levelOrdered By: Hunter Ryan on 03-09-2024 Sodium [Moles/Vol] 137 mmol/L 136-[address] [facility] White blood cell (WBC) count Ordered By: Hunter Ryan on 03-09-2024 WBC (Bld) [#/Vol] 13.1 10*3/uL High 4.4-11.0 [facility] 12 Lead EKGon 02-21-2024 12 Lead EKG [facility] Cardiovascular Services [address] [place] [address] 12 Lead EKG 02/21/242120 MR#: [id number] Acct: [id number] Name: DAVID STREET Rep #: [id number] : 1950 73 From: Alberto Williamson MD [...] Abnormal ECG Confirmed by ALBERTO WILLIAMSON MD ([id number]), image editor JASVIR NESBITT ([id number]) on 02/22/2024 8:03:35 AM Referred By: Confirmed By: ALBERTO WILLIAMSON MD 02/22/24 0803 Date Alberto Williamson MD CC: Dr. Juliocesar Hyatt, DO; Dr. Richie Heredia DO Signed Normal [facility] Absolute neutrophil countOrd ered By: Juliocesar Hyatt on 02-21-2024 Neutrophils (Bld) [#/Vol] 8.1 10*3/uL High 2.0-7.7 [facility] Base excess Calc (BldV) [Mol es/Vol]Ordered By: Juliocesar Hyatt on 02-21-2024 Venous Blood Base Excess 1 mmol/L -1.0-3.5 [facility] Basic Metabolic Profile (BMP )on 02-21-2024 BUN/CRE 13.2 RATIO Normal 10-20 [facility] Comment on above: Order Comment: 'TROP ' Serial specimen #1, #2 or #3: 1 Performed By: #### L 501.4020, L500.2500, L100.0100 #### [facility] [address] [place], [address] CA,Total 9.7 mg/dL Normal 8.5-10.1 [facility] Comment on above: Order Comment: 'TROP ' Serial specimen #1, #2 or #3: 1 Performed By: #### L 501.4020, L500.2500, L100.0100 #### [facility] [address] [place], [address] Chloride [Moles/Vol] 100 mmol/L Normal 98-107 [facility] Comment on above: Order Comment: 'TROP ' Serial specimen #1, #2 or #3: 1 Performed By: #### L 501.4020, L500.2500, L100.0100 #### [facility] [address] [place], [address] CO2 [Moles/Vol] 30.0 mmol/L Normal 21.0-32.0 [facility] Comment on above: Order Comment: 'TROP ' Serial specimen #1, #2 or #3: 1 Performed By: #### L 501.4020, L500.2500, L100.0100 #### [facility] [address] [place], [address] Creatinine [Mass/Vol] 1.36 mg/dL High 0.55-1.02 [facility] Comment on above: Order Comment: 'TROP ' Serial specimen #1, #2 or #3: 1 Result Comment: The validity of the calculated GFR GFRAA in patients over 70 years has not been determined. Clinical correlation is essential. Performed By: #### L 501.4020, L500.2500, L100.0100 #### [facility] [address] [place], [address] EST GFR - AA 49 mL/min Low >60 [facility] Comment on above: Order Comment: 'TROP ' Serial specimen #1, #2 or #3: 1 Result Comment: Afri can Slovenian GFR Calc Performed By: #### L 501.4020, L500.2500, L100.0100 #### [facility] [address] [place], [address] GAP 8 Normal 5-15 [facility] Comment on above: Order Comment: 'TROP ' Serial specimen #1, #2 or #3: 1 Performed By: #### L 501.4020, L500.2500, L100.0100 #### [facility] [address] [place], [address] GFR/1.73 sq M.predicted among non-blacks MDRD (S/P/Bld) [Vol rate/Area] 41 mL/min/{1.73_m2} Low >60 [facility] Comment on above: Order Comment: 'TROP ' Serial specimen #1, #2 or #3: 1 Result Comment: Non- GFR Calc Performed By: #### L 501.4020, L500.2500, L100.0100 #### [facility] [address] [place], [address] Glucose [Mass/Vol] 148 mg/dL High 74-[address] [facility] Comment on above: Order Comment: 'TROP ' Serial specimen #1, #2 or #3: 1 Result Comment: Fast ing Glucose result greater than or equal to 126 mg/dL suggests DIABETES MELLITUS per A.D.A. criteria. Performed By: #### L 501.4020, L500.2500, L100.0100 #### [facility] [address] [place], [address] Potassium [Moles/Vol] 3.8 mmol/L Normal 3.5-5.1 [facility] Comment on above: Order Comment: 'TROP ' Serial specimen #1, #2 or #3: 1 Performed By: #### L 501.4020, L500.2500, L100.0100 #### [facility] [address] [place], [address] Sodium [Moles/Vol] 138 mmol/L Normal 136-[address] [facility] Comment on above: Order Comment: 'TROP ' Serial specimen #1, #2 or #3: 1 Performed By: #### L 501.4020, L500.2500, L100.0100 #### [facility] [address] [place], [address] Urea nitrogen [Mass/Vol] 18 mg/dL Normal 7-18 [facility] Comment on above: Order Comment: 'TROP ' Serial specimen #1, #2 or #3: 1 Performed By: #### L 501.4020, L500.2500, L100.0100 #### [facility] [address] [place], [address] Basophil percentageOrdered B y: Juliocesar Hyatt on 02-21-2024 Basophils/100 WBC (Bld) 0.5 % 0-1 [facility] Blood urea nitrogen (BUN)/cr eatinine ratioOrdered By: Juliocesar Hyatt on 02-21-2024 Urea nitrogen/Creatinine [Mass ratio] 13.2 mg/mg 10-20 [facility] CBC W/Diff, Automatedon 12-3 0-2024 Absolute Lymph 2.58 X10 3/uL Normal 0.83-4.51 [facility] Comment on above: Performed By: #### L 501.4020, L500.2500, L100.0100 #### [facility] [address] [place], [address] Absolute Neut 8.1 X10 3/uL High 2.0-7.7 [facility] Comment on above: Performed By: #### L 501.4020, L500.2500, L100.0100 #### [facility] [address] [place], [address] Basophils/100 WBC (Bld) 0.5 % Normal 0-1 [facility] Comment on above: Performed By: #### L 501.4020, L500.2500, L100.0100 #### [facility] [address] [place], [address] Eosinophils/100 WBC (Bld) 1.2 % Normal 0-5 [facility] Comment on above: Performed By: #### L 501.4020, L500.2500, L100.0100 #### [facility] [address] [place], [address] Erythrocyte distribution width (RBC) [Ratio] 14.3 % Normal 11.6-14.6 [facility] Comment on above: Performed By: #### L 501.4020, L500.2500, L100.0100 #### [facility] [address] [place], [address] Hematocrit (Bld) [Volume fraction] 39.3 % Normal 37-47 [facility] Comment on above: Performed By: #### L 501.4020, L500.2500, L100.0100 #### [facility] [address] [place], [address] Hemoglobin (Bld) [Mass/Vol] 13.0 g/dL Normal 12.0-15.0 [facility] Comment on above: Performed By: #### L 501.4020, L500.2500, L100.0100 #### [facility] [address] [place], [address] IG% 0.700 Normal 0.0-0.9 [facility] Comment on above: Result Comment: IG% - Immature Granulocytes (promyelocytes, myelocytes and metamyelocytes) > 1% indicates that a LEFT SHIFT is Present. Performed By: #### L 501.4020, L500.2500, L100.0100 #### [facility] [address] [place], [address] Lymphocytes/100 WBC (Bld) 22.2 % Normal 19-41 [facility] Comment on above: Performed By: #### L 501.4020, L500.2500, L100.0100 #### [facility] [address] [place], [address] MCH (RBC) [Entitic mass] 32.2 pg High 27.0-32.0 [facility] Comment on above: Performed By: #### L 501.4020, L500.2500, L100.0100 #### [facility] [address] [place], [address] MCHC (RBC) [Mass/Vol] 33.1 g/dL Normal 32-36 [facility] Comment on above: Performed By: #### L 501.4020, L500.2500, L100.0100 #### [facility] [address] [place], [address] MCV (RBC) [Entitic vol] 97.3 fL Normal 81-99 [facility] Comment on above: Performed By: #### L 501.4020, L500.2500, L100.0100 #### [facility] [address] [place], [address] Monocytes/100 WBC (Bld) 5.5 % Normal 0-10 [facility] Comment on above: Performed By: #### L 501.4020, L500.2500, L100.0100 #### [facility] [address] [place], [address] Neutrophils/100 WBC (Bld) 69.9 % Normal 47-70 [facility] Comment on above: Performed By: #### L 501.4020, L500.2500, L100.0100 #### [facility] [address] [place], [address] Nucleated RBC (Bld) [#/Vol] 0 10*3/uL Normal 0-5 [facility] Comment on above: Performed By: #### L 501.4020, L500.2500, L100.0100 #### [facility] [address] [place], [address] Platelet mean volume (Bld) [Entitic vol] 10.8 fL Normal 6.2-12.0 [facility] Comment on above: Performed By: #### L 501.4020, L500.2500, L100.0100 #### [facility] [address] [place], [address] Platelets (Bld) [#/Vol] 375 10*3/uL Normal 150-450 [facility] Comment on above: Performed By: #### L 501.4020, L500.2500, L100.0100 #### [facility] [address] [place], [address] RBC (Bld) [#/Vol] 4.04 10*6/uL Low 4.2-5.4 [facility] Comment on above: Performed By: #### L 501.4020, L500.2500, L100.0100 #### [facility] [address] [place], [address] RDW SD 51.4 fl High 35.1-43.9 [facility] Comment on above: Performed By: #### L 501.4020, L500.2500, L100.0100 #### [facility] [address] [place], [address] WBC (Bld) [#/Vol] 11.6 10*3/uL High 4.4-11.0 [facility] Comment on above: Performed By: #### L 501.4020, L500.2500, L100.0100 #### [facility] [address] [place], [address] CO2 (BldV) [Moles/Vol]Ordere d By: Juliocesar Hyatt on 02-21-2024 CO2 [Moles/Vol] 25 mmol/L 23-33 [facility] CO2 (BldV) [Partial pressure ]Ordered By: Juliocesar Hyatt on 02-21-2024 Bed Mix Venous Bld PCO2 at Pat Temp 29.7 mmHg Low 41-51 [facility] Carbon dioxide measurementOr dered By: Juliocesar Hyatt on 02-21-2024 CO2 [Moles/Vol] 30.0 mmol/L 21.0-32.0 [facility] Chest PA and Lateralon 02-20 Chest PA and Lateral [facility] Imaging Services [address] [place] [address] Chest PA and Lateral MR#: [id number] Acct: [id number] Name: DAVID STREET Ramesh Rep #: [id number] : 1950 F 73 From: Mikey Vanegas MD PCP: Dr. Richie Heredia, DO Status: [facility] ER Study: Chest PA and Lateral Date of Exam: 02/21/24 Exam# [id number] Ordering Dr: Juliocesar Hyatt DO [id number] EXAM: XR CHEST, 2 VIEWS CLINICAL INDICATION: [...] No acute cardiopulmonary disease. Electronically Signed: Mikey Vnaegas MD at 0:08 EST , CC: Dr. Juliocesar Hyatt DO; Dr. Richie Heredia DO Road Crossing Guard: Signed Normal [facility] Chloride measurementOrdered By: Juliocesar Hyatt on 02-21-2024 Chloride [Moles/Vol] 100 mmol/L 98-107 [facility] Emergency Department Summary on 02-21-2024 Emergency Department Summary [facility] Medical Records Department [address] [place] [address] Emergency Department Summary 02/21/24 MR#: [id number] Acct: [id number] Name: DAVID STREET Rep #: [id number] : 1950 73 From: Juliocesar Hyatt DO [...] intact Psych: Cooperative, appropriate mood and affect [facility] Medical History Hypercholesteremia Peripheral vascular disease Palpitations Vertigo Osteoarthritis Diabetes mellitus type 2 in obese Paroxysmal atrial fibrillation Obstructive sleep apnea Home Medications ???Medication ???Instructions ???Recorded ???Last Taken ???Type aspirin 81 mg tablet,delayed 81 mg PO DAILY Zmags #90 10/25/20 01/26/23 Rx release tabs albuterol [...] BID #0 grams 08/31/23 Unknown Rx powder ([facility]) prednisone 20 mg tablet 60 mg (3 [...] 115 Pul (more content not included)... Normal [facility] Eosinophil percentageOrdered By: Juliocesar Hyatt on 02-21-2024 Eosinophils/100 WBC (Bld) 1.2 % 0-5 [facility] Erythrocyte distribution wid th (RBC) [Ratio]Ordered By: Juliocesar Hyatt on 02-21-2024 Erythrocyte distribution width (RBC) [Entitic vol] 51.4 fL High 35.1-43.9 [facility] Erythrocyte distribution wid th ratioOrdered By: Kenosha Olena on 02-21-2024 Erythrocyte distribution width (RBC) [Ratio] 14.3 % 11.6-14.6 [facility] Estimated glomerular filtrat ion rate (GFR) AmericanOrdered By: Kenosha Olena on 02-21-2024 Estimated GFR (MDRD) Amer 49 mL/min Low >60 [facility] Comment on above: GFR Calc Glomerular filtration rate ( GFR) estimationOrdered By: Juliocesarmargarette Hyatt on 02-21-2024 Estimated GFR (MDRD) Non-Af Amer 41 mL/min Low >60 [facility] Comment on above: Non- GFR Calc Glucose measurementOrdered B y: Juliocesarmargarette TorresUsama on 02-21-2024 Glucose [Mass/Vol] 148 mg/dL High 74-[address] [facility] Comment on above: Fasting Glucose resu lt greater than or equal to 126 mg/dL suggests DIABETES MELLITUS per A.D.A. criteria. Hematocrit Auto (Bld) [Volum e fraction]Ordered By: Juliocesarmargarette Hyatt on 02-21-2024 Hematocrit (Bld) [Volume fraction] 39.3 % 37-47 [facility] Hemoglobin measurementOrdere d By: Juliocesar Hyatt on 02-21-2024 Hemoglobin (Bld) [Mass/Vol] 13.0 g/dL 12.0-15.0 [facility] Immature granulocytes/100 WB C Auto (Bld)Ordered By: Juliocesarmargarette Hyatt on 02-21-2024 Immature granulocytes/100 WBC (Bld) 0.700 % 0.0-0.9 [facility] Comment on above: IG% - Immature Granu locytes (promyelocytes, myelocytes and metamyelocytes) > 1% indicates that a LEFT SHIFT is Present. Influenza virus A and B and SARS-CoV-2 (COVID-19) and Respiratory syncytial virus RNAOrdered By: Juliocesar Hyatt on 02-21-2024 SARS-CoV-2 (COVID-19) RNA IVAN+probe Ql (Unsp spec) [facility] L501.4020on 02-21-2024 TROPONIN-I HS 12 pg/mL Normal 3.0-54.0 [facility] Comment on above: Order Comment: 'TROP ' Serial specimen #1, #2 or #3: 1 Result Comment: Plea se Note: New Test Units and Gender Specific Reference Ranges. For more information see Policy Stat Procedure [place] High Sensitivity Troponin (TNIH) and attachments. Performed By: #### L 501.4020, L500.2500, L100.0100 #### [facility] [address] [place], [address] Lymphocytes Auto (Unsp spec) [#/Vol]Ordered By: Juliocesar Hyatt on 02-21-2024 Lymphocytes (Bld) [#/Vol] 2.58 10*3/uL 0.83-4.51 [facility] Lymphocytes/100 WBC Auto (Un sp spec)Ordered By: Juliocesar Hyatt on 02-21-2024 Lymphocytes/100 WBC (Bld) 22.2 % 19-41 [facility] M100.678on 02-21-2024 M100.678 Pending SARS-CoV-2 (COVID 19) Negative INFLUENZA A Negative INFLUENZA B Negative RSV PCR Negative Normal [facility] Comment on above: Performed By: #### M 100.678 ####[facility] [address] [place], [place], [address] MCV (mean corpuscular volume ) determinationOrdered By: Juliocesar Hyatt on 02-21-2024 MCV (RBC) [Entitic vol] 97.3 fL 81-99 [facility] Mean corpuscular hemoglobin (MCH) determinationOrdered By: Juliocesar Hyatt on 02-21-2024 MCH (RBC) [Entitic mass] 32.2 pg High 27.0-32.0 [facility] Mean corpuscular hemoglobin concentration (MCHC) determinationOrdered By: Juliocesar Hyatt on 02-21-2024 MCHC (RBC) [Mass/Vol] 33.1 g/dL 32-36 [facility] Mean platelet volume determi nationOrdered By: Juliocesar Hyatt on 02-21-2024 Platelet mean volume (Bld) [Entitic vol] 10.8 fL 6.2-12.0 [facility] Monocyte percentageOrdered B y: Juliocesar Hyatt on 02-21-2024 Monocytes/100 WBC (Bld) 5.5 % 0-10 [facility] Neutrophil percentageOrdered By: Juliocesar Hyatt on 02-21-2024 Neutrophils/100 WBC (Bld) 69.9 % 47-70 [facility] No Panel InformationOrdered By: Juliocesar Hyatt on 02-21-2024 Blood Gas Sample Site Not entered [facility] Blood Gas Specimen Type ANDRÉS [facility] Oxygen Delivery Device Room Air [facility] Nucleated red blood cell per centageOrdered By: Juliocesar Hyatt on 02-21-2024 Nucleated RBC/100 WBC (Bld) [Ratio] 0 % 0-5 [facility] Oxygen (BldV) [Partial press ure]Ordered By: Juliocesar Hyatt on 02-21-2024 Venous Blood Partial Pressure O2 28 mmHg 25-40 [facility] Platelet countOrdered By: Errol Hyatt on 02-21-2024 Platelets (Bld) [#/Vol] 375 10*3/uL 150-450 [facility] Potassium measurementOrdered By: Juliocesar Hyatt on 02-21-2024 Potassium [Moles/Vol] 3.8 mmol/L 3.5-5.1 [facility] RBC Auto (Bld) [#/Vol]Ordere d By: Juliocesar Hyatt on 02-21-2024 RBC (Bld) [#/Vol] 4.04 10*6/uL Low 4.2-5.4 [facility] Serum anion gap measurementO rdered By: Juliocesar Hyatt on 02-21-2024 Anion gap [Moles/Vol] 8 mmol/L 5-15 [facility] Serum or plasma calcium brittny urement (mass/volume)Ordered By: Juliocesar Forrester on 02-21-2024 Calcium [Mass/Vol] 9.7 mg/dL 8.5-10.[address] [facility] Serum or plasma creatinine m easurement (mass/volume)Ordered By: Juliocesar Forrester on 02-21-2024 Creatinine [Mass/Vol] 1.36 mg/dL High 0.55-1.02 [facility] Comment on above: The validity of the calculated GFR & GFRAA in patients over 70 years has not been determined. Clinical correlation is essential. Serum or plasma urea nitroge n measurement (mass/volume)Ordered By: Juliocesar Hyatt on 02-21-2024 Urea nitrogen [Mass/Vol] 18 mg/dL 7-18 [facility] Sodium levelOrdered By: Diego Hyatt on 02-21-2024 Sodium [Moles/Vol] 138 mmol/L 136-[address] [facility] Troponin IOrdered By: Juliocesar Hyatt on 02-21-2024 Troponin I High Sensitivity 12 pg/mL 3.0-54.0 [facility] Comment on above: Please Note: New Alanis t Units and Gender Specific Reference Ranges. For more information see Policy Stat Procedure [place] High Sensitivity Troponin (TNIH) and attachments. Venous Blood Gason 4 Blood Gas Type ANDRÉS Normal [facility] Comment on above: Performed By: #### L 9000.0810 ####[facility] [address] [place], [address] CO2 [Moles/Vol] 25 mmol/L Normal 23-33 [facility] Comment on above: Performed By: #### L 9000.0810 ####[facility] [address] [place], [address] HCO3 (Bld) [Moles/Vol] 24 mmol/L Normal 22-26 [facility] Comment on above: Performed By: #### L 9000.0810 ####[facility] [address] [place], [address] O2 Delivery Dev Room Air Normal [facility] Comment on above: Performed By: #### L 900.0810 ####[facility] [address] [place], [address] SITE Not entered Normal [facility] Comment on above: Performed By: #### L 9000.0810 ####[facility] [address] [place], [address] VBG BE 1 mmol/L Normal -1.0-3.5 [facility] Comment on above: Performed By: #### L 900.0810 ####[facility] [address] [place], [address] VBG pCO2 29.7 mmHg Low 41-51 [facility] Comment on above: Performed By: #### L 900.0810 ####[facility] [address] [place], [address] VBG pH 7.51 High 7.32-7.42 [facility] Comment on above: Performed By: #### L 9000.0810 ####[facility] [address] [place], [address] VBG PO2 28 mmHg Normal 25-40 [facility] Comment on above: Performed By: #### L 9000.0810 ####[facility] [address] [place], [address] VBG SO2 61 Normal 50-70 [facility] Comment on above: Performed By: #### L 9000.0810 ####[facility] [address] [place], [address] Venous blood bicarbonate peter surementOrdered By: Juliocesar Hyatt on 02-21-2024 HCO3 (Bld) [Moles/Vol] 24 mmol/L - [facility] Venous blood oxygen saturati on measurementOrdered By: Juliocesar Hyatt on 02-21-2024 Oxygen saturation in Blood 61 % 50-70 [facility] White blood cell (WBC) count Ordered By: Juliocesar Hyatt on 02-21-2024 WBC (Bld) [#/Vol] 11.6 10*3/uL High 4.4-11.0 [facility] pH (BldV)Ordered By: Juliocesar Patricia on 02-21-2024 Venous Blood pH 7.51 High 7.32-7.42 [facility] .Auto Diffon 11-25-2023 Basophil, Absolute 0.1 10 3/mcL Normal 0.0-0.2 [facility] Comment on above: Performed By: #### T SH, GFR, FT4, CBC, ADIFF, VIDH, A1C, CMP, ANEU #### [address] [address] #### B12 #### [address] [address] Basophils/100 WBC (Bld) 0.9 % Normal 0.0-2.5 [facility] Comment on above: Performed By: #### T SH, GFR, FT4, CBC, ADIFF, VIDH, A1C, CMP, ANEU #### [address] [address] #### B12 #### [address] [address] Eosinophil, Absolute 0.3 10 3/mcL Normal 0.0-0.7 [facility] Comment on above: Performed By: #### T SH, GFR, FT4, CBC, ADIFF, VIDH, A1C, CMP, ANEU #### [address] [address] #### B12 #### [address] [address] Eosinophils/100 WBC (Bld) 2.8 % Normal 0.0-7.0 [facility] Comment on above: Performed By: #### T SH, GFR, FT4, CBC, ADIFF, VIDH, A1C, CMP, ANEU #### [address] [address] #### B12 #### [address] [address] Lymphocyte, Absolute 2.2 10 3/mcL Normal 0.9-4.3 [facility] Comment on above: Performed By: #### T SH, GFR, FT4, CBC, ADIFF, VIDH, A1C, CMP, ANEU #### [place] [address] #### B12 #### [address] [address] Lymphocytes/100 WBC (Bld) 20.5 % Normal 20.0-40.0 [facility] Comment on above: Performed By: #### T SH, GFR, FT4, CBC, ADIFF, VIDH, A1C, CMP, ANEU #### [place] [address] #### B12 #### [address] [address] Monocyte, Absolute 0.6 10 3/mcL Normal 0.1-1.4 [facility] Comment on above: Performed By: #### T SH, GFR, FT4, CBC, ADIFF, VIDH, A1C, CMP, ANEU #### [place] [address] #### B12 #### [address] [address] Monocytes/100 WBC (Bld) 5.9 % Normal 2.0-13.0 [facility] Comment on above: Performed By: #### T SH, GFR, FT4, CBC, ADIFF, VIDH, A1C, CMP, ANEU #### [place] [address] #### B12 #### [address] [address] Neutrophils/100 WBC (Bld) 69.9 % Normal 50.0-75.0 [facility] Comment on above: Performed By: #### T SH, GFR, FT4, CBC, ADIFF, VIDH, A1C, CMP, ANEU #### [address] [address] #### B12 #### [address] [address] .GFRon 11-25-2023 GFR 42 ml/min/1.73sqm Normal [facility] Comment on above: Result Comment: GFR [...] CBC, ADIFF, VIDH, A1C, CMP, ANEU #### [address] [address] #### B12 #### [address] [address] GFR Non- 34 ml/min/1.73sqm Normal [facility] Comment on above: Result Comment: GFR [...] CBC, ADIFF, VIDH, A1C, CMP, ANEU #### [address] [address] #### B12 #### [address] [address] .NEUABSon 11-25-2023 Neutrophil, Absolute 7.6 10 3/mcL Normal 2.3-8.1 [facility] Comment on above: Performed By: #### T SH, GFR, FT4, CBC, ADIFF, VIDH, A1C, CMP, ANEU #### [address] [address] #### B12 #### [address] [address] A1Con 11-25-2023 Glucose [Mass/Vol] 111 mg/dL Normal [facility] Comment on above: Result Comment: Eloisa mated Average Glucose calculated by equation ((28.7xA1C)-46.7) Estimated average glucose (eAG) is a calculated value from Hemoglobin A1C and is reimbursement representative of the average blood glucose level in the last 2-3 month period. Normal range: less than 114 mg/dL Performed By: #### U PARVEZ UA #### [address] [address] HbA1c (Bld) [Mass fraction] 5.5 % Normal 4.3-6.4 [facility] Comment on above: Performed By: #### Kush HANNON UA #### [address] [address] B12on 11-25-2023 Cobalamin (Vitamin B12) [Mass/Vol] 638 pg/mL Normal 211-911 [facility] Comment on above: Performed By: #### Kush HANNON UA #### [address] [address] CBCon 11-25-2023 Erythrocyte distribution width (RBC) [Ratio] 13.9 % Normal 11.5-15.5 [facility] Comment on above: Performed By: #### T SH, GFR, FT4, CBC, ADIFF, VIDH, A1C, CMP, ANEU #### [place] [address] #### B12 #### [place] [address] Hematocrit (Bld) [Volume fraction] 38.3 % Normal 34.0-46.0 [facility] Comment on above: Performed By: #### T SH, GFR, FT4, CBC, ADIFF, VIDH, A1C, CMP, ANEU #### [place] [address] #### B12 #### [place] [address] Hgb 12.9 G/dL Normal 12.0-16.0 [facility] Comment on above: Performed By: #### T SH, GFR, FT4, CBC, ADIFF, VIDH, A1C, CMP, ANEU #### [place] [address] #### B12 #### [place] [address] MCH (RBC) [Entitic mass] 31.9 pg Normal 27.0-33.0 [facility] Comment on above: Performed By: #### T SH, GFR, FT4, CBC, ADIFF, VIDH, A1C, CMP, ANEU #### [place] [address] #### B12 #### [place] [address] MCHC 33.5 G/dL Normal 32.0-36.0 [facility] Comment on above: Performed By: #### T SH, GFR, FT4, CBC, ADIFF, VIDH, A1C, CMP, ANEU #### [place] [address] #### B12 #### [place] [address] MCV (RBC) [Entitic vol] 95.1 fL Normal 80.0-99.0 [facility] Comment on above: Performed By: #### T SH, GFR, FT4, CBC, ADIFF, VIDH, A1C, CMP, ANEU #### [place] [address] #### B12 #### [place] [address] Platelet 340 10 3/mcL Normal 150-450 [facility] Comment on above: Performed By: #### T SH, GFR, FT4, CBC, ADIFF, VIDH, A1C, CMP, ANEU #### [place] [address] #### B12 #### [place] [address] Platelet mean volume (Bld) [Entitic vol] 10.4 fL Normal 6.6-10.5 [facility] Comment on above: Performed By: #### T SH, GFR, FT4, CBC, ADIFF, VIDH, A1C, CMP, ANEU #### [place] [address] #### B12 #### [place] [address] RBC 4.03 10 6/mcL Low 4.10-5.30 [facility] Comment on above: Performed By: #### T SH, GFR, FT4, CBC, ADIFF, VIDH, A1C, CMP, ANEU #### [place] [address] #### B12 #### [place] [address] WBC 10.9 10 3/mcL High 4.5-10.8 [facility] Comment on above: Performed By: #### T SH, GFR, FT4, CBC, ADIFF, VIDH, A1C, CMP, ANEU #### [place] [address] #### B12 #### [address] [address] CLINDAMYCIN:SUSC:PT:ISOLATE: ALEKSANDARQN:MICon 11-25-2023 Clindamycin TWYLA [Susc] Light Staphylococ cus aureus This staphylococci does not demonstrate inducible clindamycin resistance in vitro. Few normal skin alan present. Sensitivity testing not indicated. [facility] Work Phone: [facility] Albumin Level 3.5 G/dL Normal 3.4-4.8 [facility] Comment on above: Performed By: #### T SH, GFR, FT4, CBC, ADIFF, VIDH, A1C, CMP, ANEU #### [place] [address] #### B12 #### [place] [address] Albumin/Globulin [Mass ratio] 0.9 {ratio} Low 1.1-2.5 [facility] Comment on above: Performed By: #### T SH, GFR, FT4, CBC, ADIFF, VIDH, A1C, CMP, ANEU #### [place] [address] #### B12 #### [address] [address] ALP [Catalytic activity/Vol] 115 U/L Normal 40-135 [facility] Comment on above: Performed By: #### T SH, GFR, FT4, CBC, ADIFF, VIDH, A1C, CMP, ANEU #### [place] [address] #### B12 #### [address] [address] ALT [Catalytic activity/Vol] 19 U/L Normal 14-59 [facility] Comment on above: Performed By: #### T SH, GFR, FT4, CBC, ADIFF, VIDH, A1C, CMP, ANEU #### [place] [address] #### B12 #### [address] [address] AST [Catalytic activity/Vol] 9 U/L Low 10-40 [facility] Comment on above: Performed By: #### T SH, GFR, FT4, CBC, ADIFF, VIDH, A1C, CMP, ANEU #### [address] [address] #### B12 #### [place] [address] Bili Total 0.3 mg/dL Normal 0.2-1.0 [facility] Comment on above: Result Comment: Use of this assay is not recommended for patients undergoing treatment with eltrombopag due to the potential for falsely elevated results. Performed By: #### T SH, GFR, FT4, CBC, ADIFF, VIDH, A1C, CMP, ANEU #### [place] [address] #### B12 #### [place] [address] BUN/Creatinine Ratio 11 ratio Normal 7-27 [facility] Comment on above: Performed By: #### T SH, GFR, FT4, CBC, ADIFF, VIDH, A1C, CMP, ANEU #### [place] [address] #### B12 #### [place] [address] Calcium [Mass/Vol] 9.5 mg/dL Normal 8.4-10.2 [facility] Comment on above: Performed By: #### T SH, GFR, FT4, CBC, ADIFF, VIDH, A1C, CMP, ANEU #### [place] [address] #### B12 #### [place] [address] Chloride [Moles/Vol] 96 mmol/L Low 98-107 [facility] Comment on above: Performed By: #### T SH, GFR, FT4, CBC, ADIFF, VIDH, A1C, CMP, ANEU #### [place] [address] #### B12 #### [address] [address] CO2 [Moles/Vol] 26 mmol/L Normal 23-31 [facility] Comment on above: Performed By: #### T SH, GFR, FT4, CBC, ADIFF, VIDH, A1C, CMP, ANEU #### [place] [address] #### B12 #### [place] [address] Creatinine [Mass/Vol] 1.49 mg/dL High 0.55-1.02 [facility] Comment on above: Result Comment: Test ing performed on [employer] Dimension EXL analyzer using a modified kinetic Jesi technique. Performed By: #### T SH, GFR, FT4, CBC, ADIFF, VIDH, A1C, CMP, ANEU #### [place] [address] #### B12 #### [place] [address] Electrolyte Balance 14.0 mEq/L Normal 4.0-15.0 [facility] Comment on above: Performed By: #### T SH, GFR, FT4, CBC, ADIFF, VIDH, A1C, CMP, ANEU #### [place] [address] #### B12 #### [place] [address] Globulin 3.9 G/dL Normal [facility] Comment on above: Performed By: #### T SH, GFR, FT4, CBC, ADIFF, VIDH, A1C, CMP, ANEU #### [place] [address] #### B12 #### [place] [address] Glucose [Mass/Vol] 142 mg/dL High 83-110 [facility] Comment on above: Performed By: #### T SH, GFR, FT4, CBC, ADIFF, VIDH, A1C, CMP, ANEU #### [address] [address] #### B12 #### [address] [address] Potassium [Moles/Vol] 3.3 mmol/L Low 3.5-5.1 [facility] Comment on above: Performed By: #### T SH, GFR, FT4, CBC, ADIFF, VIDH, A1C, CMP, ANEU #### [address] [address] #### B12 #### [address] [address] Sodium [Moles/Vol] 136 mmol/L Normal 136-145 [facility] Comment on above: Performed By: #### T SH, GFR, FT4, CBC, ADIFF, VIDH, A1C, CMP, ANEU #### [place] [address] #### B12 #### [address] [address] Total Protein 7.4 G/dL Normal 6.4-8.2 [facility] Comment on above: Performed By: #### T SH, GFR, FT4, CBC, ADIFF, VIDH, A1C, CMP, ANEU #### [address] [address] #### B12 #### [address] [address] Urea nitrogen [Mass/Vol] 17 mg/dL Normal 7-18 [facility] Comment on above: Performed By: #### T SH, GFR, FT4, CBC, ADIFF, VIDH, A1C, CMP, ANEU #### [place] [address] #### B12 #### [address] [address] Clindamycin TWYLA [Susc]on GS No organisms seen. [facility] Work Phone: Staphylococcus aureus Staphylococcus aureus [facility] Work Phone: FT4on 11-25-2023 Free T4 [Mass/Vol] 1.05 ng/dL Normal 0.76-1.46 [facility] Comment on above: Performed By: #### T SH, GFR, FT4, CBC, ADIFF, VIDH, A1C, CMP, ANEU #### [facility] [address] [place], [place] [address] #### B12 #### [facility] [address] [place] [address] LABORATORYOrdered By: SYSTEM SYSTEM on 11-25-2023 25-hydroxyvitamin [...] calculated value from Hemoglobin A1C and is reimbursement representative of the average blood glucose level [...] 11-25-2023 TSH Qn 4.70 m[IU]/L High 0.36-3.74 [facility] Comment on above: Performed By: #### T SH, GFR, FT4, CBC, ADIFF, VIDH, A1C, CMP, ANEU #### [place] [address] [place], [place] [address] #### B12 #### [address] [address] VIDHon 11-25-2023 Vit. D 25-Hydroxy 34.6 ng/mL Normal [facility] Comment on above: Result Comment: Inte rpretive Values Based on Total 25(OH) Vitamin D: Deficient <20 ng/mL Insufficient 20 - <30 ng/mL Sufficient 30-100 ng/mL Performed By: #### T SH, GFR, FT4, CBC, ADIFF, VIDH, A1C, CMP, ANEU #### [place] [address] [place], [place] [address] #### B12 #### [facility] [address] [place] [address] Basic Metabolic Profile (BMP )on 09-02-2023 BUN/CRE 33.1 RATIO High 10-20 [facility] Comment on above: Order Comment: 'TROP ' Serial specimen #1, #2 or #3: 1 Performed By: #### L 501.4020, L500.2500, L100.0100 #### [facility] [address] [place], [address] CA,Total 9.1 mg/dL Normal 8.5-10.1 [facility] Comment on above: Order Comment: 'TROP ' Serial specimen #1, #2 or #3: 1 Performed By: #### L 501.4020, L500.2500, L100.0100 #### [facility] [address] [place], [address] Chloride [Moles/Vol] 102 mmol/L Normal 98-107 [facility] Comment on above: Order Comment: 'TROP ' Serial specimen #1, #2 or #3: 1 Performed By: #### L [id number], L500.2500, L100.0100 #### [facility] [address] [place], [address] CO2 [Moles/Vol] 24.0 mmol/L Normal 21.0-32.0 [facility] Comment on above: Order Comment: 'TROP ' Serial specimen #1, #2 or #3: 1 Performed By: #### L 501.4020, L500.2500, L100.0100 #### [facility] [address] [place], [address] Creatinine [Mass/Vol] 0.36 mg/dL Low 0.55-1.02 [facility] Comment on above: Order Comment: 'TROP ' Serial specimen #1, #2 or #3: 1 Result Comment: The validity of the calculated GFR GFRAA in patients over 70 years has not been determined. Clinical correlation is essential. Performed By: #### L 501.4020, L500.2500, L100.0100 #### [facility] [address] [place], [address] EST GFR - AA 226 mL/min Normal >60 [facility] Comment on above: Order Comment: 'TROP ' Serial specimen #1, #2 or #3: 1 Result Comment: Afri can Slovenian GFR Calc Performed By: #### L 501.4020, L500.2500, L100.0100 #### [facility] [address] [place], [address] GAP 10 Normal 5-15 [facility] Comment on above: Order Comment: 'TROP ' Serial specimen #1, #2 or #3: 1 Performed By: #### L 501.4020, L500.2500, L100.0100 #### [facility] [address] [place], [address] GFR/1.73 sq M.predicted among non-blacks MDRD (S/P/Bld) [Vol rate/Area] 187 mL/min/{1.73_m2} Normal >60 [facility] Comment on above: Order Comment: 'TROP ' Serial specimen #1, #2 or #3: 1 Result Comment: Non- GFR Calc Performed By: #### L 501.4020, L500.2500, L100.0100 #### [facility] [address] [place], [address] Glucose [Mass/Vol] 98 mg/dL Normal 74-[address] [facility] Comment on above: Order Comment: 'TROP ' Serial specimen #1, #2 or #3: 1 Performed By: #### L 501.4020, L500.2500, L100.0100 #### [facility] [address] [place], [address] Potassium [Moles/Vol] 3.9 mmol/L Normal 3.5-5.1 [facility] Comment on above: Order Comment: 'TROP ' Serial specimen #1, #2 or #3: 1 Performed By: #### L 501.4020, L500.2500, L100.0100 #### [facility] [address] [place], [address] Sodium [Moles/Vol] 136 mmol/L Normal 136-[address] [facility] Comment on above: Order Comment: 'TROP ' Serial specimen #1, #2 or #3: 1 Performed By: #### L 501.4020, L500.2500, L100.0100 #### [facility] [address] [place], [address] Urea nitrogen [Mass/Vol] 12 mg/dL Normal 7-18 [facility] Comment on above: Order Comment: 'TROP ' Serial specimen #1, #2 or #3: 1 Performed By: #### L 501.4020, L500.2500, L100.0100 #### [facility] [address] [place], [address] CBC-Complete Blood Cnt No Di ffon 09-02-2023 Erythrocyte distribution width (RBC) [Ratio] 14.0 % Normal 11.6-14.6 [facility] Comment on above: Order Comment: 'TROP ' Serial specimen #1, #2 or #3: 1 Performed By: #### L 501.4020, L500.2500, L100.0100 #### [facility] [address] [place], [address] Hematocrit (Bld) [Volume fraction] 37.3 % Normal 37-47 [facility] Comment on above: Order Comment: 'TROP ' Serial specimen #1, #2 or #3: 1 Performed By: #### L 501.4020, L500.2500, L100.0100 #### [facility] [address] [place], [address] Hemoglobin (Bld) [Mass/Vol] 12.0 g/dL Normal 12.0-15.0 [facility] Comment on above: Order Comment: 'TROP ' Serial specimen #1, #2 or #3: 1 Performed By: #### L 501.4020, L500.2500, L100.0100 #### [facility] [address] [place], [address] MCH (RBC) [Entitic mass] 30.8 pg Normal 27.0-32.0 [facility] Comment on above: Order Comment: 'TROP ' Serial specimen #1, #2 or #3: 1 Performed By: #### L 501.4020, L500.2500, L100.0100 #### [facility] [address] [place], [address] MCHC (RBC) [Mass/Vol] 32.2 g/dL Normal 32-36 [facility] Comment on above: Order Comment: 'TROP ' Serial specimen #1, #2 or #3: 1 Performed By: #### L 501.4020, L500.2500, L100.0100 #### [facility] [address] [place], [address] MCV (RBC) [Entitic vol] 95.9 fL Normal 81-99 [facility] Comment on above: Order Comment: 'TROP ' Serial specimen #1, #2 or #3: 1 Performed By: #### L 501.4020, L500.2500, L100.0100 #### [facility] [address] [place], [address] Platelet mean volume (Bld) [Entitic vol] 11.3 fL Normal 6.2-12.0 [facility] Comment on above: Order Comment: 'TROP ' Serial specimen #1, #2 or #3: 1 Performed By: #### L 501.4020, L500.2500, L100.0100 #### [facility] [address] [place], [address] Platelets (Bld) [#/Vol] 268 10*3/uL Normal 150-450 [facility] Comment on above: Order Comment: 'TROP ' Serial specimen #1, #2 or #3: 1 Performed By: #### L 501.4020, L500.2500, L100.0100 #### [facility] [address] [place], [address] RBC (Bld) [#/Vol] 3.89 10*6/uL Low 4.2-5.4 [facility] Comment on above: Order Comment: 'TROP ' Serial specimen #1, #2 or #3: 1 Performed By: #### L 501.4020, L500.2500, L100.0100 #### [facility] [address] [place], [address] RDW SD 49.3 fl High 35.1-43.9 [facility] Comment on above: Order Comment: 'TROP ' Serial specimen #1, #2 or #3: 1 Performed By: #### L 501.4020, L500.2500, L100.0100 #### [facility] [address] [place], [address] WBC (Bld) [#/Vol] 14.2 10*3/uL High 4.4-11.0 [facility] Comment on above: Order Comment: 'TROP ' Serial specimen #1, #2 or #3: 1 Performed By: #### L 501.4020, L500.2500, L100.0100 #### [facility] [address] [place], [address] Hemoglobin A1con 09-02-2023 HbA1c (Bld) [Mass fraction] 5.8 % High 3.8-5.6 [facility] Comment on above: Order Comment: 'TROP ' Serial specimen #1, #2 or #3: 1 Result Comment: Norm al < 5.7 % Prediabetic 5.7 - 6.4 % Diabetic >or= 6.5 % Please note range changes. Performed By: #### L 501.4020, L500.2500, L100.0100 #### [facility] [address] [place], [address] Lipid Profileon 09-02-2023 Cholesterol [Mass/Vol] 105 mg/dL Normal 200 [facility] Comment on above: Order Comment: 'TROP ' Serial specimen #1, #2 or #3: 1 Result Comment: <200 mg/dL Desirable 200-240 mg/dL Borderline >240 mg/dL High Risk Performed By: #### L 501.4020, L500.2500, L100.0100 #### [facility] [address] [place], [address] Cholesterol in HDL [Mass/Vol] 24 mg/dL Low [facility] Comment on above: Order Comment: 'TROP ' Serial specimen #1, #2 or #3: 1 Result Comment: The drugs N-Acetylcysteine and Metamizole may falsely depress this assay. Reference Range HDL <40 mg/dL Low HDL Cholesterol HDL >or= 60 mg/dL High HDL Cholesterol Performed By: #### L 501.4020, L500.2500, L100.0100 #### [facility] [address] [place], [address] Cholesterol in LDL [Mass/Vol] 39 mg/dL Normal 0-130 [facility] Comment on above: Order Comment: 'TROP ' Serial specimen #1, #2 or #3: 1 Performed By: #### L 501.4020, L500.2500, L100.0100 #### [facility] [address] [place], [address] Cholesterol in VLDL [Mass/Vol] 42 mg/dL High 5-40 [facility] Comment on above: Order Comment: 'TROP ' Serial specimen #1, #2 or #3: 1 Performed By: #### L 501.4020, L500.2500, L100.0100 #### [facility] [address] [place], [address] Triglyceride [Mass/Vol] 209 mg/dL High [facility] Comment on above: Order Comment: 'TROP ' Serial specimen #1, #2 or #3: 1 Result Comment: The drugs N-Acetylcysteine and Metamizole may falsely depress this assay. Serum Triglycerides Reference Interval Normal <150 mg/dL Borderline high 150 - 199 mg/dL High 200 - 499 mg/dL Very High > or = 500 mg/dL Performed By: #### L 501.4020, L500.2500, L100.0100 #### [facility] [address] [place], [address] Bedside Glucoseon 09-01-2023 FINGERSTICK GLU 99 mg/dL Normal 74-106 [facility] Comment on above: Result Comment: JEAN GEMENT OF PATIENT CARE PER NURSING PROTOCOL Performed By: #### L 501.080 ####[facility] [address] [place], [address] FINGERSTICK GLU 188 mg/dL High 74-106 [facility] Comment on above: Result Comment: JEAN GEMENT OF PATIENT CARE PER NURSING PROTOCOL Performed By: #### L 501.080 ####[facility] [address] [place], [address] FINGERSTICK GLU 131 mg/dL High 74-106 [facility] Comment on above: Result Comment: JEAN GEMENT OF PATIENT CARE PER NURSING PROTOCOL Performed By: #### L 501.4020, L500.2500, L100.0100 #### [facility] [address] [place], [address] Bedside Glucoseon 08-31-2023 FINGERSTICK GLU 94 mg/dL Normal 74-106 [facility] Comment on above: Result Comment: JEAN GEMENT OF PATIENT CARE PER NURSING PROTOCOL Performed By: #### L 501.080 ####[facility] [address] [place], [address] FINGERSTICK GLU 107 mg/dL High 74-106 [facility] Comment on above: Result Comment: JEAN GEMENT OF PATIENT CARE PER NURSING PROTOCOL Performed By: #### L 501.080 ####[facility] [address] [place], [address] FINGERSTICK GLU 48 mg/dL Low 74-106 [facility] Comment on above: Result Comment: JEAN GEMENT OF PATIENT CARE PER NURSING PROTOCOL Performed By: #### L 501.080 #### [facility] [address] [place], [address] FINGERSTICK GLU 80 mg/dL Normal 74-106 [facility] Comment on above: Result Comment: JEAN GEMENT OF PATIENT CARE PER NURSING PROTOCOL Performed By: #### L 501.4020, L500.2500, L100.0100 #### [facility] [address] [place], [address] FINGERSTICK GLU 79 mg/dL Normal 74-106 [facility] Comment on above: Result Comment: JEAN GEMENT OF PATIENT CARE PER NURSING PROTOCOL Performed By: #### L 501.080 ####[facility] [address] [place], [address] FINGERSTICK GLU 67 mg/dL Low 74-106 [facility] Comment on above: Result Comment: JEAN GEMENT OF PATIENT CARE PER NURSING PROTOCOL Performed By: #### L 501.080 ####[facility] [address] [place], [address] Culture, Blood (WB)on 2023 CUB No growth in 5 days. Normal [facility] Comment on above: Performed By: #### L 501.4020, L500.2500, L100.0100 #### [facility] [address] [place], [address] CUB No growth in 5 days. Normal [facility] Comment on above: Performed By: #### L 501.4020, L500.2500, L100.0100 #### [facility] [address] [place], [address] Basic Metabolic Profile (BMP )on 08-30-2023 BUN/CRE 39.5 RATIO High 10-20 [facility] Comment on above: Performed By: #### L 501.4020, L500.2500, L100.0100 #### [facility] [address] [place], [address] CA,Total 9.0 mg/dL Normal 8.5-10.1 [facility] Comment on above: Performed By: #### L 501.4020, L500.2500, L100.0100 #### [facility] [address] [place], [address] Chloride [Moles/Vol] 107 mmol/L Normal 98-107 [facility] Comment on above: Performed By: #### L 501.4020, L500.2500, L100.0100 #### [facility] [address] [place], [address] CO2 [Moles/Vol] 24.0 mmol/L Normal 21.0-32.0 [facility] Comment on above: Performed By: #### L 501.4020, L500.2500, L100.0100 #### [facility] [address] [place], [address] Creatinine [Mass/Vol] 0.63 mg/dL Normal 0.55-1.02 [facility] Comment on above: Result Comment: The validity of the calculated GFR GFRAA in patients over 70 years has not been determined. Clinical correlation is essential. Performed By: #### L 501.4020, L500.2500, L100.0100 #### [facility] [address] [place], [address] ECRCL 69.78 ml/min Normal [facility] Comment on above: Performed By: #### L 501.4020, L500.2500, L100.0100 #### [facility] [address] [place], [address] EST GFR - AA 119 mL/min Normal >60 [facility] Comment on above: Result Comment: Afri can Slovenian GFR Calc Performed By: #### L 501.4020, L500.2500, L100.0100 #### [facility] [address] [place], [address] GAP 7 Normal 5-15 [facility] Comment on above: Performed By: #### L 501.4020, L500.2500, L100.0100 #### [facility] [address] [place], [address] GFR/1.73 sq M.predicted among non-blacks MDRD (S/P/Bld) [Vol rate/Area] 98 mL/min/{1.73_m2} Normal >60 [facility] Comment on above: Result Comment: Non- GFR Calc Performed By: #### L 501.4020, L500.2500, L100.0100 #### [facility] [address] [place], [address] Glucose [Mass/Vol] 77 mg/dL Normal 74-[address] [facility] Comment on above: Performed By: #### L 501.4020, L500.2500, L100.0100 #### [facility] [address] [place], [address] Potassium [Moles/Vol] 3.8 mmol/L Normal 3.5-5.1 [facility] Comment on above: Performed By: #### L 501.4020, L500.2500, L100.0100 #### [facility] [address] [place], [address] Sodium [Moles/Vol] 138 mmol/L Normal 136-[address] [facility] Comment on above: Performed By: #### L 501.4020, L500.2500, L100.0100 #### [facility] [address] [place], [address] Urea nitrogen [Mass/Vol] 25 mg/dL High 7-18 [facility] Comment on above: Performed By: #### L 501.4020, L500.2500, L100.0100 #### [facility] [address] [place], [address] Bedside Glucoseon 08-30-2023 FINGERSTICK GLU 77 mg/dL Normal 74-106 [facility] Comment on above: Result Comment: JEAN GEMENT OF PATIENT CARE PER NURSING PROTOCOL Performed By: #### L 501.4020, L500.2500, L100.0100 #### [facility] [address] [place], [address] FINGERSTICK GLU 77 mg/dL Normal 74-106 [facility] Comment on above: Result Comment: JEAN GEMENT OF PATIENT CARE PER NURSING PROTOCOL Performed By: #### L 501.080 #### [facility] [address] [place], [address] FINGERSTICK GLU 93 mg/dL Normal 74-106 [facility] Comment on above: Result Comment: JEAN GEMENT OF PATIENT CARE PER NURSING PROTOCOL Performed By: #### L 501.4020, L500.2500, L100.0100 #### [facility] [address] [place], [address] FINGERSTICK GLU 79 mg/dL Normal 74-106 [facility] Comment on above: Result Comment: JEAN GEMENT OF PATIENT CARE PER NURSING PROTOCOL Performed By: #### L 501.080 ####[facility] [address] [place], [address] FINGERSTICK GLU 90 mg/dL Normal 74-106 [facility] Comment on above: Result Comment: JEAN GEMENT OF PATIENT CARE PER NURSING PROTOCOL Performed By: #### L 501.080 ####[facility] [address] [place], [address] FINGERSTICK GLU 69 mg/dL Low 74-106 [facility] Comment on above: Result Comment: JEAN GONZALES OF PATIENT CARE PER NURSING PROTOCOL Performed By: #### L 501.080 #### [facility] [address] [place], [address] CBC W/Diff, Automatedon 07-0 8-2023 Absolute Lymph 1.34 X10 3/uL Normal 0.83-4.51 [facility] Comment on above: Performed By: #### L 501.4020, L500.2500, L100.0100 #### [facility] [address] [place], [address] Absolute Neut 11.5 X10 3/uL High 2.0-7.7 [facility] Comment on above: Performed By: #### L 501.4020, L500.2500, L100.0100 #### [facility] [address] [place], [address] Basophils/100 WBC (Bld) 0.4 % Normal 0-1 [facility] Comment on above: Performed By: #### L 501.4020, L500.2500, L100.0100 #### [facility] [address] [place], [address] Eosinophils/100 WBC (Bld) 0.6 % Normal 0-5 [facility] Comment on above: Performed By: #### L 501.4020, L500.2500, L100.0100 #### [facility] [address] [place], [address] Erythrocyte distribution width (RBC) [Ratio] 14.2 % Normal 11.6-14.6 [facility] Comment on above: Performed By: #### L 501.4020, L500.2500, L100.0100 #### [facility] [address] [place], [address] Hematocrit (Bld) [Volume fraction] 37.9 % Normal 37-47 [facility] Comment on above: Performed By: #### L 501.4020, L500.2500, L100.0100 #### [facility] [address] [place], [address] Hemoglobin (Bld) [Mass/Vol] 12.0 g/dL Normal 12.0-15.0 [facility] Comment on above: Performed By: #### L 501.4020, L500.2500, L100.0100 #### [facility] [address] [place], [address] IG% 1.400 High 0.0-0.9 [facility] Comment on above: Result Comment: IG% - Immature Granulocytes (promyelocytes, myelocytes and metamyelocytes) > 1% indicates that a LEFT SHIFT is Present. Performed By: #### L 501.4020, L500.2500, L100.0100 #### [facility] [address] [place], [address] Lymphocytes/100 WBC (Bld) 9.7 % Low 19-41 [facility] Comment on above: Performed By: #### L 501.4020, L500.2500, L100.0100 #### [facility] [address] [place], [address] MCH (RBC) [Entitic mass] 31.3 pg Normal 27.0-32.0 [facility] Comment on above: Performed By: #### L 501.4020, L500.2500, L100.0100 #### [facility] [address] [place], [address] MCHC (RBC) [Mass/Vol] 31.7 g/dL Low 32-36 [facility] Comment on above: Performed By: #### L 501.4020, L500.2500, L100.0100 #### [facility] [address] [place], [address] MCV (RBC) [Entitic vol] 99.0 fL Normal 81-99 [facility] Comment on above: Performed By: #### L 501.4020, L500.2500, L100.0100 #### [facility] [address] [place], [address] Monocytes/100 WBC (Bld) 5.1 % Normal 0-10 [facility] Comment on above: Performed By: #### L 501.4020, L500.2500, L100.0100 #### [facility] [address] [place], [address] Neutrophils/100 WBC (Bld) 82.8 % High 47-70 [facility] Comment on above: Performed By: #### L 501.4020, L500.2500, L100.0100 #### [facility] [address] [place], [address] Nucleated RBC (Bld) [#/Vol] 0 10*3/uL Normal 0-5 [facility] Comment on above: Performed By: #### L 501.4020, L500.2500, L100.0100 #### [facility] [address] [place], [address] Platelet mean volume (Bld) [Entitic vol] 12.5 fL High 6.2-12.0 [facility] Comment on above: Performed By: #### L 501.4020, L500.2500, L100.0100 #### [facility] [address] [place], [address] Platelets (Bld) [#/Vol] 173 10*3/uL Normal 150-450 [facility] Comment on above: Performed By: #### L 501.4020, L500.2500, L100.0100 #### [facility] [address] [place], [address] RBC (Bld) [#/Vol] 3.83 10*6/uL Low 4.2-5.4 [facility] Comment on above: Performed By: #### L 501.4020, L500.2500, L100.0100 #### [facility] [address] [place], [address] RDW SD 52.1 fl High 35.1-43.9 [facility] Comment on above: Performed By: #### L 501.4020, L500.2500, L100.0100 #### [facility] [address] [place], [address] WBC (Bld) [#/Vol] 13.9 10*3/uL High 4.4-11.0 [facility] Comment on above: Performed By: #### L 501.4020, L500.2500, L100.0100 #### [facility] [address] [place], [address] Basic Metabolic Profile (BMP )on 08-29-2023 BUN/CRE 37.9 RATIO High 10-20 [facility] Comment on above: Performed By: #### L 501.4020, L500.2500, L100.0100 #### [facility] [address] [place], [address] CA,Total 8.8 mg/dL Normal 8.5-10.1 [facility] Comment on above: Performed By: #### L 501.4020, L500.2500, L100.0100 #### [facility] [address] [place], [address] Chloride [Moles/Vol] 105 mmol/L Normal 98-107 [facility] Comment on above: Performed By: #### L 501.4020, L500.2500, L100.0100 #### [facility] [address] [place], [address] CO2 [Moles/Vol] 26.0 mmol/L Normal 21.0-32.0 [facility] Comment on above: Performed By: #### L 501.4020, L500.2500, L100.0100 #### [facility] [address] [place], [address] Creatinine [Mass/Vol] 0.76 mg/dL Normal 0.55-1.02 [facility] Comment on above: Result Comment: The validity of the calculated GFR GFRAA in patients over 70 years has not been determined. Clinical correlation is essential. Performed By: #### L 501.4020, L500.2500, L100.0100 #### [facility] [address] [place], [address] ECRCL 69.78 ml/min Normal [facility] Comment on above: Performed By: #### L 501.4020, L500.2500, L100.0100 #### [facility] [address] [place], [address] EST GFR - AA 96 mL/min Normal >60 [facility] Comment on above: Result Comment: Afri can Slovenian GFR Calc Performed By: #### L 501.4020, L500.2500, L100.0100 #### [facility] [address] [place], [address] GAP 7 Normal 5-15 [facility] Comment on above: Performed By: #### L 501.4020, L500.2500, L100.0100 #### [facility] [address] [place], [address] GFR/1.73 sq M.predicted among non-blacks MDRD (S/P/Bld) [Vol rate/Area] 79 mL/min/{1.73_m2} Normal >60 [facility] Comment on above: Result Comment: Non- GFR Calc Performed By: #### L 501.4020, L500.2500, L100.0100 #### [facility] [address] [place], [address] Glucose [Mass/Vol] 70 mg/dL Low 74-[address] [facility] Comment on above: Performed By: #### L 501.4020, L500.2500, L100.0100 #### [facility] [address] [place], [address] Potassium [Moles/Vol] 3.8 mmol/L Normal 3.5-5.1 [facility] Comment on above: Performed By: #### L 501.4020, L500.2500, L100.0100 #### [facility] [address] [place], [address] Sodium [Moles/Vol] 138 mmol/L Normal 136-[address] [facility] Comment on above: Performed By: #### L 501.4020, L500.2500, L100.0100 #### [facility] [address] [place], [address] Urea nitrogen [Mass/Vol] 29 mg/dL High 7-18 [facility] Comment on above: Performed By: #### L 501.4020, L500.2500, L100.0100 #### [facility] [address] [place], [address] Bedside Glucoseon 08-29-2023 FINGERSTICK GLU 101 mg/dL Normal 74-106 [facility] Comment on above: Result Comment: JEAN GEMENT OF PATIENT CARE PER NURSING PROTOCOL Performed By: #### L 501.080 ####[facility] [address] [place], [address] FINGERSTICK GLU 75 mg/dL Normal 74-106 [facility] Comment on above: Result Comment: JEAN GEMENT OF PATIENT CARE PER NURSING PROTOCOL Performed By: #### L 501.080 #### [facility] [address] [place], [address] FINGERSTICK GLU 60 mg/dL Low 74-106 [facility] Comment on above: Result Comment: JEAN GEMENT OF PATIENT CARE PER NURSING PROTOCOL Performed By: #### L 501.080 ####[facility] [address] [place], [address] FINGERSTICK GLU 67 mg/dL Low 74-106 [facility] Comment on above: Result Comment: JEAN GEMENT OF PATIENT CARE PER NURSING PROTOCOL Performed By: #### L 501.4020, L500.2500, L100.0100 #### [facility] [address] [place], [address] FINGERSTICK GLU 78 mg/dL Normal 74-106 [facility] Comment on above: Result Comment: JEAN GEMENT OF PATIENT CARE PER NURSING PROTOCOL Performed By: #### L 501.4020, L500.2500, L100.0100 #### [facility] [address] [place], [address] FINGERSTICK GLU 122 mg/dL High 74-106 [facility] Comment on above: Result Comment: JEAN GEMENT OF PATIENT CARE PER NURSING PROTOCOL Performed By: #### L 501.4020, L500.2500, L100.0100 #### [facility] [address] [place], [address] FINGERSTICK GLU 82 mg/dL Normal 74-106 [facility] Comment on above: Result Comment: JEAN GEMENT OF PATIENT CARE PER NURSING PROTOCOL Performed By: #### L 501.4020, L500.2500, L100.0100 #### [facility] [address] [place], [address] CBC W/Diff, Automatedon 07-0 -2023 Absolute Lymph 1.15 X10 3/uL Normal 0.83-4.51 [facility] Comment on above: Performed By: #### L 501.4020, L500.2500, L100.0100 #### [facility] [address] [place], [address] Absolute Neut 11.4 X10 3/uL High 2.0-7.7 [facility] Comment on above: Performed By: #### L 501.4020, L500.2500, L100.0100 #### [facility] [address] [place], [address] Basophils/100 WBC (Bld) 0.4 % Normal 0-1 [facility] Comment on above: Performed By: #### L 501.4020, L500.2500, L100.0100 #### [facility] [address] [place], [address] Eosinophils/100 WBC (Bld) 0.5 % Normal 0-5 [facility] Comment on above: Performed By: #### L 501.4020, L500.2500, L100.0100 #### [facility] [address] [place], [address] Erythrocyte distribution width (RBC) [Ratio] 14.0 % Normal 11.6-14.6 [facility] Comment on above: Performed By: #### L 501.4020, L500.2500, L100.0100 #### [facility] [address] [place], [address] Hematocrit (Bld) [Volume fraction] 35.8 % Low 37-47 [facility] Comment on above: Performed By: #### L 501.4020, L500.2500, L100.0100 #### [facility] [address] [place], [address] Hemoglobin (Bld) [Mass/Vol] 11.4 g/dL Low 12.0-15.0 [facility] Comment on above: Performed By: #### L 501.4020, L500.2500, L100.0100 #### [facility] [address] [place], [address] IG% 0.500 Normal 0.0-0.9 [facility] Comment on above: Result Comment: IG% - Immature Granulocytes (promyelocytes, myelocytes and metamyelocytes) > 1% indicates that a LEFT SHIFT is Present. Performed By: #### L 501.4020, L500.2500, L100.0100 #### [facility] [address] [place], [address] Lymphocytes/100 WBC (Bld) 8.5 % Low 19-41 [facility] Comment on above: Performed By: #### L 501.4020, L500.2500, L100.0100 #### [facility] [address] [place], [address] MCH (RBC) [Entitic mass] 31.4 pg Normal 27.0-32.0 [facility] Comment on above: Performed By: #### L 501.4020, L500.2500, L100.0100 #### [facility] [address] [place], [address] MCHC (RBC) [Mass/Vol] 31.8 g/dL Low 32-36 [facility] Comment on above: Performed By: #### L 501.4020, L500.2500, L100.0100 #### [facility] [address] [place], [address] MCV (RBC) [Entitic vol] 98.6 fL Normal 81-99 [facility] Comment on above: Performed By: #### L 501.4020, L500.2500, L100.0100 #### [facility] [address] [place], [address] Monocytes/100 WBC (Bld) 5.5 % Normal 0-10 [facility] Comment on above: Performed By: #### L 501.4020, L500.2500, L100.0100 #### [facility] [address] [place], [address] Neutrophils/100 WBC (Bld) 84.6 % High 47-70 [facility] Comment on above: Performed By: #### L 501.4020, L500.2500, L100.0100 #### [facility] [address] [place], [address] Nucleated RBC (Bld) [#/Vol] 0 10*3/uL Normal 0-5 [facility] Comment on above: Performed By: #### L 501.4020, L500.2500, L100.0100 #### [facility] [address] [place], [address] Platelet mean volume (Bld) [Entitic vol] 13.0 fL High 6.2-12.0 [facility] Comment on above: Performed By: #### L 501.4020, L500.2500, L100.0100 #### [facility] [address] [place], [address] Platelets (Bld) [#/Vol] 148 10*3/uL Low 150-450 [facility] Comment on above: Performed By: #### L 501.4020, L500.2500, L100.0100 #### [facility] [address] [place], [address] RBC (Bld) [#/Vol] 3.63 10*6/uL Low 4.2-5.4 [facility] Comment on above: Performed By: #### L 501.4020, L500.2500, L100.0100 #### [facility] [address] [place], [address] RDW SD 51.8 fl High 35.1-43.9 [facility] Comment on above: Performed By: #### L 501.4020, L500.2500, L100.0100 #### [facility] [address] [place], [address] WBC (Bld) [#/Vol] 13.5 10*3/uL High 4.4-11.0 [facility] Comment on above: Performed By: #### L 501.4020, L500.2500, L100.0100 #### [facility] [address] [place], [address] CRPon 08-29-2023 C-REACTIVE PROT 311.00 mg/L High 0.0-3.0 [facility] Comment on above: Result Comment: C-Re active Protein (CRP) provides useful information for the diagnosis, therapy and monitoring of inflammatory processes and associated diseases. For the evaluation of Relative Risk for Cardiovascular Disease, a High Sensitivity CRP (HSCRP) should be ordered. Performed By: #### L 501.080 #### [facility] [address] [place], [address] Erythrocyte Sed Rateon 08-28 SED RATE 77 mm/hr High 0-30 [facility] Comment on above: Performed By: #### L 101.9900 ####[facility] [address] [place], [address] Foot min 3 Viewson 4 Foot min 3 Views [facility] Imaging Services [address] [place] [address] Foot min 3 Views MR#: [id number] Acct: [id number] Name: YENIFERDAVID Ramesh Rep #: [id number] : 1950 F 73 From: Christian gilliam MD PCP: Dr. Richie Heredia, Status: ADM IN Study: Foot min 3 Views Date of Exam: 08/29/23 Exam# [id number] Ordering Dr: Jaya Rachel MD [id number] INDICATION: RIGHT FOOT AND TOES PAIN EXAMINATION/TECHNIQU [...] Richie Heredia DO; Dr. Jaya Rachel MD Road Crossing Guard: Signed Normal [facility] Tibia Fibula 2 Viewson 08-28 Tibia Fibula 2 Views [facility] Imaging Services [address] [place] [address] Tibia Fibula 2 Views MR#: [id number] Acct: [id number] Name: DAVID STREET Rep #: [id number] : 1950 F 73 From: Pritesh Chandler PCP: Dr. Richie Heredia DO Status: ADM IN Study: Tibia Fibula 2 Views Date of Exam: 08/29/23 Exam# [id number] Ordering Dr: Jaya Rachel MD [id number] EXAM: XR RIGHT TIBIA AND FIBULA, 1 [...] Richie Heredia DO; Dr. Jaya Rachel MD Road Crossing Guard: Signed Normal [facility] Uric Acidon 08-29-2023 URIC 5.7 mg/dL Normal 2.6-6.0 [facility] Comment on above: Result Comment: The drugs N-Acetylcysteine and Metamizole may falsely depress this assay. Performed By: #### L 501.1400, L501.6710 ####[facility] [address] [place], [address] Venous Duplex US - Placido Extre [facility] 08-29-2023 Venous Duplex US - Placido Extrem [facility] Cardiovascular Services [address] [place] [address] Venous Duplex US - Placido Extrem 08/30/23 0847 MR#: [id number] Acct: [id number] Name: DAVID STREET Rep #: [id number] : 1950 73 From: Mejia Vega MD [...] report was called and/or faxed to [facility]. VL/Venous Duplex US - Placido Extrem Interpretation Summary Deep veins of the bilateral lower extremities are patent and compressible segmentally. There is no evidence of bilateral lower extremity deep vein thrombosis. The bilateral great saphenous veins appear patent and compressible segmentally. Ordering Physician: aJya Rachel Referring Physician: Richie Heredia Performed By: Sarai Ashby RVT 08/31/23 1534 Date Mejia Vega MD CC: Dr. Mejia Grissom DO; Dr. Richie Heredia DO; Dr. Jaya Rachel MD Date Dictated: 08/30/23 0847 Date Transcribed: 08/31/231533 Road Crossing Guard: Signed Normal [facility] Bedside Glucoseon 08-28-2023 FINGERSTICK GLU 88 mg/dL Normal 74-106 [facility] Comment on above: Result Comment: JEAN GEMENT OF PATIENT CARE PER NURSING PROTOCOL Performed By: #### L 501.080 #### [facility] [address] [place], [address] FINGERSTICK GLU 96 mg/dL Normal 74-106 [facility] Comment on above: Result Comment: JEAN GEMENT OF PATIENT CARE PER NURSING PROTOCOL Performed By: #### L 501.080 #### [facility] [address] [place], [address] FINGERSTICK GLU 138 mg/dL High 74-106 [facility] Comment on above: Result Comment: JEAN GEMENT OF PATIENT CARE PER NURSING PROTOCOL Performed By: #### L 501.080 #### [facility] [address], [address] FINGERSTICK GLU 101 mg/dL Normal 74-106 [facility] Comment on above: Result Comment: JEAN GEMENT OF PATIENT CARE PER NURSING PROTOCOL Performed By: #### L 501.080 #### [facility] [address] [place], [address] Magnesiumon 08-28-2023 Magnesium [Mass/Vol] 2.5 mg/dL Normal 1.6-2.6 [facility] Comment on above: Performed By: #### L 501.080 #### [facility] [address] [place], [address] Phosphoruson 08-28-2023 Phosphate [Mass/Vol] 2.6 mg/dL Normal 2.5-4.9 [facility] Comment on above: Performed By: #### L 501.080 #### [facility] [address] [place], [address] 12 Lead EKGon 08-27-2023 12 Lead EKG [facility] Cardiovascular Services [address] [place] [address] 12 Lead EKG 08/27/23 1131 MR#: [id number] Acct: [id number] Name: DAVID STREET Rep #: [id number] : 1950 73 From: Alberto Williamson MD Attending Dr: Dr. Mejia Grissom, Status: ADM IN Ordering Dr: Daryl Verduzco MD Date: 08/27/23 Location: [facility] Sex: F C Admitted: 08/26/23 Test [...] UNCONFIRMED Confirmed by GREER BRAGG, ALBERTO ([id number]), image editor MARY SAENZ ([id number]) on 08/30/2023 10:26:24 AM Referred By: DAVID Confirmed By:ALBERTO WILLIAMSON MD 08/30/23 1026 Date Alberto Williamson MD CC: Dr. Daryl Verduzco MD; Dr. Mejia Grissom DO; Dr. Richie Heredia DO Signed Normal [facility] 12 Lead EKG [facility] Cardiovascular Services [address] [place] [address] 12 Lead EKG 08/26/23 1458 MR#: [id number] Acct: [id number] Name: DAVID STREET Rep #: [id number] : 1950 73 From: Richie Small MD Attending Dr: Dr. Mejia Grissom DO Status: ADM IN Ordering Dr: Daryl Verduzco MD Date: 08/27/23 Location: [facility] Sex: F C Admitted: 08/26/23 Test [...] DATA IS UNCONFIRMED Confirmed by Richie Small ([id number]), image editor MARY SAENZ ([id number]) on 08/31/2023 7:54:48 AM Referred By: Confirmed By:Richie Small 08/31/23 0754 Date Richie Small MD CC: Dr. Daryl Verduzco MD; Dr. Mejia Grissom DO; Dr. Richie Heredia DO Signed Normal [facility] Bedside Glucoseon 08-27-2023 FINGERSTICK GLU 123 mg/dL High 74-106 [facility] Comment on above: Result Comment: JEAN GEMENT OF PATIENT CARE PER NURSING PROTOCOL Performed By: #### L 501.080 #### [facility] [address] [place], [address] FINGERSTICK GLU 179 mg/dL High 74-106 [facility] Comment on above: Result Comment: JEAN GEMENT OF PATIENT CARE PER NURSING PROTOCOL Performed By: #### L 501.080 #### [facility] [address] [place], [address] FINGERSTICK GLU 136 mg/dL High -106 [facility] Comment on above: Result Comment: JEAN GEMENT OF PATIENT CARE PER NURSING PROTOCOL Performed By: #### L 501.080 #### [facility] [address] [place], [address] FINGERSTICK GLU 79 mg/dL Normal 74-106 [facility] Comment on above: Result Comment: JEAN GEMENT OF PATIENT CARE PER NURSING PROTOCOL Performed By: #### L 501.080 #### [facility] [address] [place], [address] CBC W/Diff, Automatedon 07-0 Absolute Lymph 0.66 X10 3/uL Low 0.83-4.51 [facility] Comment on above: Performed By: #### L 501.080 #### [facility] [address] [place], [address] Absolute Neut 13.3 X10 3/uL High 2.0-7.7 [facility] Comment on above: Performed By: #### L 501.080 #### [facility] [address] [place], [address] Basophils/100 WBC (Bld) 0.3 % Normal 0-1 [facility] Comment on above: Performed By: #### L 501.080 #### [facility] [address] [place], [address] Eosinophils/100 WBC (Bld) 0.1 % Normal 0-5 [facility] Comment on above: Performed By: #### L 501.080 #### [facility] [address] [place], [address] Erythrocyte distribution width (RBC) [Ratio] 13.9 % Normal 11.6-14.6 [facility] Comment on above: Performed By: #### L 501.080 #### [facility] [address] [place], [address] Hematocrit (Bld) [Volume fraction] 37.1 % Normal 37-47 [facility] Comment on above: Performed By: #### L 501.080 #### [facility] [address] [place], [address] Hemoglobin (Bld) [Mass/Vol] 11.9 g/dL Low 12.0-15.0 [facility] Comment on above: Performed By: #### L 501.080 #### [facility] [address] [place], [address] IG% 1.500 High 0.0-0.9 [facility] Comment on above: Result Comment: IG% - Immature Granulocytes (promyelocytes, myelocytes and metamyelocytes) > 1% indicates that a LEFT SHIFT is Present. Performed By: #### L 501.080 #### [facility] [address] [place], [address] Lymphocytes/100 WBC (Bld) 4.4 % Low 19-41 [facility] Comment on above: Performed By: #### L 501.080 #### [facility] [address] [place], [address] MCH (RBC) [Entitic mass] 31.2 pg Normal 27.0-32.0 [facility] Comment on above: Performed By: #### L 501.080 #### [facility] [address] [place], [address] MCHC (RBC) [Mass/Vol] 32.1 g/dL Normal 32-36 [facility] Comment on above: Performed By: #### L 501.080 #### [facility] [address] [place], [address] MCV (RBC) [Entitic vol] 97.4 fL Normal 81-99 [facility] Comment on above: Performed By: #### L 501.080 #### [facility] [address] [place], [address] Monocytes/100 WBC (Bld) 4.4 % Normal 0-10 [facility] Comment on above: Performed By: #### L 501.080 #### [facility] [address] [place], [address] Neutrophils/100 WBC (Bld) 89.3 % High 47-70 [facility] Comment on above: Performed By: #### L 501.080 #### [facility] [address] [place], [address] Nucleated RBC (Bld) [#/Vol] 0 10*3/uL Normal 0-5 [facility] Comment on above: Performed By: #### L 501.080 #### [facility] [address] [place], [address] Platelet mean volume (Bld) [Entitic vol] 12.1 fL High 6.2-12.0 [facility] Comment on above: Performed By: #### L 501.080 #### [facility] [address] [place], [address] Platelets (Bld) [#/Vol] 173 10*3/uL Normal 150-450 [facility] Comment on above: Performed By: #### L 501.080 #### [facility] [address] [place], [address] RBC (Bld) [#/Vol] 3.81 10*6/uL Low 4.2-5.4 [facility] Comment on above: Performed By: #### L 501.080 #### [facility] [address] [place], [address] RDW SD 50.1 fl High 35.1-43.9 [facility] Comment on above: Performed By: #### L 501.080 #### [facility] [address] [place], [address] WBC (Bld) [#/Vol] 14.9 10*3/uL High 4.4-11.0 [facility] Comment on above: Performed By: #### L 501.080 #### [facility] [address] [place], [address] PATH REV Reviewed Normal [facility] Comment on above: Result Comment: Neut rophilic leukocytosis. Clinical correlation necessary. Kenneth Ramos M.D. 08/27/23 AMENDED REPORT 08/27/23 0934 PATH REV previously reported as: June marychuy Performed By: #### L 501.080 #### [facility] [address] [place], [address] Comprehensive Metabolic Prof ilon 08-27-2023 Albumin [Mass/Vol] 2.1 g/dL Low 3.2-5.[address] [facility] Comment on above: Performed By: #### L 501.080 #### [facility] [address] [place], [address] Albumin/Globulin [Mass ratio] 0.5 {ratio} Low 0.9-2.4 [facility] Comment on above: Performed By: #### L 501.080 #### [facility] [address] [place], [address] ALK P 96 U/L Normal 45-117 [facility] Comment on above: Performed By: #### L 501.080 #### [facility] [address] [place], [address] ALT [Catalytic activity/Vol] 11 U/L Low 13-56 [facility] Comment on above: Performed By: #### L 501.080 #### [facility] [address] [place], [address] AST [Catalytic activity/Vol] 20 U/L Normal 15-37 [facility] Comment on above: Performed By: #### L 501.080 #### [facility] [address] [place], [address] Bilirubin [Mass/Vol] 0.20 mg/dL Normal 0.20-1.00 [facility] Comment on above: Result Comment: For patients on eltrombopag therapy, use of Dimension [place] TBIL is not recommended. Performed By: #### L 501.080 #### [facility] [address] [place], [address] BUN/CRE 24.6 RATIO High 10-20 [facility] Comment on above: Performed By: #### L 501.080 #### [facility] [address] [place], [address] CA,Total 8.4 mg/dL Low 8.5-10.1 [facility] Comment on above: Performed By: #### L 501.080 #### [facility] [address] [place], [address] Chloride [Moles/Vol] 104 mmol/L Normal 98-107 [facility] Comment on above: Performed By: #### L 501.080 #### [facility] [address] [place], [address] CO2 [Moles/Vol] 25.0 mmol/L Normal 21.0-32.0 [facility] Comment on above: Performed By: #### L 501.080 #### [facility] [address] [place], [address] Creatinine [Mass/Vol] 1.38 mg/dL High 0.55-1.02 [facility] Comment on above: Result Comment: The validity of the calculated GFR GFRAA in patients over 70 years has not been determined. Clinical correlation is essential. Performed By: #### L 501.080 #### [facility] [address] [place], [address] ECRCL 40.45 ml/min Normal [facility] Comment on above: Performed By: #### L 501.080 #### [facility] [address] [place], [address] EST GFR - AA 48 mL/min Low >60 [facility] Comment on above: Result Comment: Afri can Slovenian GFR Calc Performed By: #### L 501.080 #### [facility] [address] [place], [address] GAP 9 Normal 5-15 [facility] Comment on above: Performed By: #### L 501.080 #### [facility] [address] [place], [address] GFR/1.73 sq M.predicted among non-blacks MDRD (S/P/Bld) [Vol rate/Area] 40 mL/min/{1.73_m2} Low >60 [facility] Comment on above: Result Comment: Non- GFR Calc Performed By: #### L 501.080 #### [facility] [address] [place], [address] Globulin (S) [Mass/Vol] 4.1 g/dL Normal 2.2-4.2 [facility] Comment on above: Performed By: #### L 501.080 #### [facility] [address] [place], [address] Glucose [Mass/Vol] 175 mg/dL High 74-[address] [facility] Comment on above: Result Comment: Fast ing Glucose result greater than or equal to 126 mg/dL suggests DIABETES MELLITUS per A.D.A. criteria. Performed By: #### L 501.080 #### [facility] [address] [place], [address] Potassium [Moles/Vol] 3.4 mmol/L Low 3.5-5.1 [facility] Comment on above: Performed By: #### L 501.080 #### [facility] [address] [place], [address] Sodium [Moles/Vol] 138 mmol/L Normal 136-[address] [facility] Comment on above: Performed By: #### L 501.080 #### [facility] [address] [place], [address] T PROT 6.2 g/dL Low 6.4-8.2 [facility] Comment on above: Performed By: #### L 501.080 #### [facility] [address] [place], [address] Urea nitrogen [Mass/Vol] 34 mg/dL High 7-18 [facility] Comment on above: Performed By: #### L 501.080 #### [facility] [address] [place], [address] 12 Lead EKGon 08-26-2023 12 Lead EKG [facility] Cardiovascular Services [address] [place] [address] 12 Lead EKG 08/27/23 1048 MR#: [id number] Acct: [id number] Name: DAVID STREET Rep #: [id number] : 1950 73 From: Alberto Williamson MD Attending Dr: Dr. Mejia Grissom DO Status: ADM IN Ordering Dr: Daryl Verduzco MD Date: 08/26/23 Location: [facility] Sex: F C Admitted: 08/26/23 Test [...] UNCONFIRMED Confirmed by GREER BRAGG, ALBERTO ([id number]), image editor MARY SAENZ ([id number]) on 08/30/2023 10:25:45 AM Referred By: DAVID Confirmed By:ALBERTO WILLIAMSON MD 08/30/23 1025 Date Alberto Williamson MD CC: Dr. Daryl Verduzco MD; Dr. Mejia Grissom DO; Dr. Richie Heredia DO Signed Normal [facility] 12 Lead EKG [facility] Cardiovascular Services [address] [place] [address] 12 Lead EKG 08/26/23 0531 MR#: [id number] Acct: [id number] Name: DAVID STREET Rep #: [id number] : 1950 73 From: Richie Small MD Attending Dr: Dr. Mejia Grissom DO Status: ADM IN Ordering Dr: Maximilian Ellison DO Date: 08/26/23 Location: [facility] Sex: F C Admitted: 08/26/23 Test Reason : TACHY Blood Pressure : / mmHG Vent. Rate : 114 BPM Atrial Rate : 115 BPM P-R Int : 174 ms QRS Dur : 098 ms QT Int : 334 ms P-R-T Axes : 073 -40 060 degrees QTc Int : 460 ms Sinus tachycardia Left axis deviation Cannot rule out Inferior IL Cannot rule out Anterior infarct , age undetermined Abnormal ECG When compared with ECG of 26-JUL-2023 16:55, Vent. rate has increased BY 43 BPM Nonspecific T wave abnormality now evident in Lateral leads Confirmed by Richie Small ([id number]), image editor MARY SAENZ ([id number]) on 08/31/2023 7:55:15 AM Referred By: Confirmed By:Richie Small 08/31/23 0755 Date Richie Small MD CC: Dr. Maximilian Ellison DO; Dr. Mejia Grissom DO; Dr. Richie Heredia DO Signed Normal [facility] Basic Metabolic Profile (BMP )on 08-26-2023 BUN/CRE 20.0 RATIO Normal 10-20 [facility] Comment on above: Performed By: #### L 501.080 #### [facility] [address] [place], [place], [address] ([address] CA,Total 8.5 mg/dL Normal 8.5-10.1 [facility] Comment on above: Performed By: #### L 501.080 #### [facility] [address] [place], [address] Chloride [Moles/Vol] 104 mmol/L Normal 98-107 [facility] Comment on above: Performed By: #### L 501.080 #### [facility] [address] [place], [address] CO2 [Moles/Vol] 24.0 mmol/L Normal 21.0-32.0 [facility] Comment on above: Performed By: #### L 501.080 #### [facility] [address] [place], [address] Creatinine [Mass/Vol] 1.15 mg/dL High 0.55-1.02 [facility] Comment on above: Result Comment: The validity of the calculated GFR GFRAA in patients over 70 years has not been determined. Clinical correlation is essential. Performed By: #### L 501.080 #### [facility] [address] [place], [address] ECRCL 48.54 ml/min Normal [facility] Comment on above: Performed By: #### L 501.080 #### [facility] [address] [place], [address] EST GFR - AA 60 mL/min Normal >60 [facility] Comment on above: Result Comment: Afri can Slovenian GFR Calc Performed By: #### L 501.080 #### [facility] [address] [place], [address] GAP 10 Normal 5-15 [facility] Comment on above: Performed By: #### L 501.080 #### [facility] [address] [place], [address] GFR/1.73 sq M.predicted among non-blacks MDRD (S/P/Bld) [Vol rate/Area] 49 mL/min/{1.73_m2} Low >60 [facility] Comment on above: Result Comment: Non- GFR Calc Performed By: #### L 501.080 #### [facility] [address] [place], [address] Glucose [Mass/Vol] 197 mg/dL High 74-[address] [facility] Comment on above: Result Comment: Fast ing Glucose result greater than or equal to 126 mg/dL suggests DIABETES MELLITUS per A.D.A. criteria. Performed By: #### L 501.080 #### [facility] [address] [place], [address] Potassium [Moles/Vol] 3.8 mmol/L Normal 3.5-5.1 [facility] Comment on above: Performed By: #### L 501.080 #### [facility] [address] [place], [address] Sodium [Moles/Vol] 138 mmol/L Normal 136-[address] [facility] Comment on above: Performed By: #### L 501.080 #### [facility] [address] [place], [address] Urea nitrogen [Mass/Vol] 23 mg/dL High 7-18 [facility] Comment on above: Performed By: #### L 501.080 #### [facility] [address] [place], [address] Bedside Glucoseon 08-26-2023 FINGERSTICK GLU 188 mg/dL High 74-106 [facility] Comment on above: Result Comment: JEAN GEMENT OF PATIENT CARE PER NURSING PROTOCOL Performed By: #### L 501.080 #### [facility] [address] [place], [address] FINGERSTICK GLU 155 mg/dL High 74-106 [facility] Comment on above: Result Comment: JEAN GEMENT OF PATIENT CARE PER NURSING PROTOCOL Performed By: #### L 501.080 #### [facility] [address] [place], [address] FINGERSTICK GLU 139 mg/dL High 74-106 [facility] Comment on above: Result Comment: JEAN GEMENT OF PATIENT CARE PER NURSING PROTOCOL Performed By: #### L 501.080 ####[facility] [address] [place], [address] FINGERSTICK GLU 160 mg/dL High 74-106 [facility] Comment on above: Result Comment: JEAN GONZALES OF PATIENT CARE PER NURSING PROTOCOL Performed By: #### L 501.4020, L500.2500, L100.0100 #### [facility] [address] [place], [address] Blood Gases by [facility] 024 KADEEM TEST Positive Normal [facility] Comment on above: Performed By: #### L 9000.0800 ####[facility] [address] [place], [address] Base excess Calc (Bld) [Moles/Vol] -1 mmol/L Normal -2 to +2 [facility] Comment on above: Performed By: #### L 9000.0800 ####[facility] [address] [place], [address] Blood Gas Type ART Normal [facility] Comment on above: Performed By: #### L 9000.0800 ####[facility] [address] [place], [address] CO2 [Moles/Vol] 24 mmol/L Normal [facility] Comment on above: Performed By: #### L 9000.0800 ####[facility] [address] [place], [address] FI02 3.0 Normal [facility] Comment on above: Performed By: #### L 9000.0800 ####[facility] [address] [place], [address] HCO3 (Bld) [Moles/Vol] 23.3 mmol/L Normal 22-26 [facility] Comment on above: Performed By: #### L 9000.0800 ####[facility] [address] [place], [address] Mode Not entered Normal [facility] Comment on above: Performed By: #### L 9000.0800 ####[facility] [address] [place], [address] O2 Delivery Dev Cannula Normal [facility] Comment on above: Performed By: #### L 9000.0800 ####[facility] [address] [place], [address] pCO2 32.3 mmHg Low 35-45 [facility] Comment on above: Performed By: #### L 9000.0800 ####[facility] [address] [place], [address] pH (Bld) 7.47 [pH] High 7.35-7.45 [facility] Comment on above: Performed By: #### L 9000.0800 ####[facility] [address] [place], [address] PO2 99 mmHG Normal 75-100 [facility] Comment on above: Performed By: #### L 9000.0800 ####[facility] [address] [place], [address] SITE R Radial Normal [facility] Comment on above: Performed By: #### L 9000.0800 ####[facility] [address] [place], [address] SO2 98 Normal 95-99 [facility] Comment on above: Performed By: #### L 9000.0800 ####[facility] [address] [place], [address] Brain/Head W/WO Contraston 0 08-26-2023 Brain/Head W/WO Contrast [facility] Imaging Services [address] [place] [address] Brain/Head W/WO Contrast MR#: [id number] Acct: [id number] Name: DAVID STREET Rep #: [id number] : 1950 F 73 From: Holger Marquez MD PCP: Dr. Richie Heredia DO Status: ADM PIERCE Study: Brain/Head W/WO Contrast Date of Exam: 4 Exam# [id number] Ordering Dr: Daryl Verduzco MD [id number] STUDY: CT BRAIN WITH AND WITHOUT CONTRAST [...] Daryl Verduzco MD; Dr. Richie Heredia DO Road Crossing Guard: Signed Normal [facility] Echo Completeon 08-26-2023 Echo Complete [facility] Cardiovascular Services [address] [place], [place] [address] [address] Echo Complete 08/27/2331 MR#: [id number] Acct: [id number] Name: DAVID STREET Rep #: [id number] : 1950 73 From: Alberto Williamson MD Attending Dr: Dr. Daryl Verduzco MD Status: AD M IN Ordering Dr: Daryl Verduzco MD Date: 08/26/23 Location: [facility] Sex: F C Admitted: 08/26/23 Reason [...] DO Date Dictated: 08/27/23930 Date Transcribed: 08/27/231739 Road Crossing Guard: Signed Normal [facility] Lactic Acidon 08-26-2023 Lactate [Moles/Vol] 3.4 mmol/L Invalid Interpretation Code 0.4-1.9 [facility] Comment on above: Result Comment: Crit ical Result(s) Called at: 15:12:55 08/26/2023 by: Mi Mccarty. Results read back by same. Performed By: #### L 501.080 #### [facility] [address] [place], [address] Lactate [Moles/Vol] 2.5 mmol/L Invalid Interpretation Code 0.4-1.9 [facility] Comment on above: Order Comment: Y Result Comment: Crit ical Result(s) Called at: 06:19:45 08/26/2023 by: Huong Martins to Brianda Bustamante. Results read back by same. Performed By: #### L 503.6005 ####[facility] [address] [place], [address] M100.678on 08-26-2023 M100.678 Normal Reference Range = Negative GeneXpert Instrument, PCR method SARS-CoV-2 (COVID 19) Negative INFLUENZA A Negative INFLUENZA B Negative RSV PCR Negative Normal [facility] Comment on above: Performed By: #### L 501.4020, L500.2500, L100.0100 #### [facility] [address] [place], [address] Magnesiumon 08-26-2023 Magnesium [Mass/Vol] 1.4 mg/dL Low 1.6-2.6 [facility] Comment on above: Performed By: #### L 501.080 #### [facility] [address] [place], [address] Phosphoruson 08-26-2023 Phosphate [Mass/Vol] 1.7 mg/dL Low 2.5-4.9 [facility] Comment on above: Performed By: #### L 501.080 #### [facility] [address] [place], [address] Basic Metabolic Profile (BMP )on 08-25-2023 BUN/CRE 12.7 RATIO Normal 10-20 [facility] Comment on above: Performed By: #### L 100.0100, L500.2500 ####[facility] [address] [place], [address] CA,Total 8.7 mg/dL Normal 8.5-10.1 [facility] Comment on above: Performed By: #### L 100.0100, L500.2500 ####[facility] [address] [place], [address] Chloride [Moles/Vol] 100 mmol/L Normal 98-107 [facility] Comment on above: Performed By: #### L 100.0100, L500.2500 ####[facility] [address] [place], [address] CO2 [Moles/Vol] 27.0 mmol/L Normal 21.0-32.0 [facility] Comment on above: Performed By: #### L 100.0100, L500.2500 ####[facility] [address] [place], [address] Creatinine [Mass/Vol] 1.42 mg/dL High 0.55-1.02 [facility] Comment on above: Result Comment: The validity of the calculated GFR GFRAA in patients over 70 years has not been determined. Clinical correlation is essential. Performed By: #### L 100.0100, L500.2500 ####[facility] [address] [place], [address] ECRCL 39.92 ml/min Normal [facility] Comment on above: Performed By: #### L 100.0100, L500.2500 ####[facility] [address] [place], [address] EST GFR - AA 47 mL/min Low >60 [facility] Comment on above: Result Comment: Afri can Slovenian GFR Calc Performed By: #### L 100.0100, L500.2500 ####[facility] [address] [place], [address] GAP 8 Normal 5-15 [facility] Comment on above: Performed By: #### L 100.0100, L500.2500 ####[facility] [address] [place], [address] GFR/1.73 sq M.predicted among non-blacks MDRD (S/P/Bld) [Vol rate/Area] 39 mL/min/{1.73_m2} Low >60 [facility] Comment on above: Result Comment: Non- GFR Calc Performed By: #### L 100.0100, L500.2500 ####[facility] [address] [place], [address] Glucose [Mass/Vol] 176 mg/dL High 74-[address] [facility] Comment on above: Result Comment: Fast ing Glucose result greater than or equal to 126 mg/dL suggests DIABETES MELLITUS per A.D.A. criteria. Performed By: #### L 100.0100, L500.2500 ####[facility] [address] [place], [address] Potassium [Moles/Vol] 3.6 mmol/L Normal 3.5-5.1 [facility] Comment on above: Performed By: #### L 100.0100, L500.2500 ####[facility] [address] [place], [address] Sodium [Moles/Vol] 135 mmol/L Low 136-[address] [facility] Comment on above: Performed By: #### L 100.0100, L500.2500 ####[facility] [address] [place], [address] Urea nitrogen [Mass/Vol] 18 mg/dL Normal 7-18 [facility] Comment on above: Performed By: #### L 100.0100, L500.2500 ####[facility] [address] [place], [address] Bedside Glucoseon 08-25-2023 FINGERSTICK GLU 181 mg/dL High 74-106 [facility] Comment on above: Result Comment: JEAN GEMENT OF PATIENT CARE PER NURSING PROTOCOL Performed By: #### L 501.4020, L500.2500, L100.0100 #### [facility] [address] [place], [address] FINGERSTICK GLU 189 mg/dL High 74-106 [facility] Comment on above: Result Comment: JEAN GEMENT OF PATIENT CARE PER NURSING PROTOCOL Performed By: #### L 501.080 #### [facility] [address] [place], [address] FINGERSTICK GLU 107 mg/dL High 74-106 [facility] Comment on above: Result Comment: JEAN GONZALES OF PATIENT CARE PER NURSING PROTOCOL Performed By: #### L 501.080 #### [facility] [address] [place], [address] [facility] K[facility]EM [facility] Positive Normal [facility] Comment on above: Performed By: #### L 9000.0800 ####[facility] [address] [place], [address] Base excess Calc (Bld) [Moles/Vol] 3 mmol/L High -2 to +2 [facility] Comment on above: Performed By: #### L 9000.0800 ####[facility] [address] [place], [address] Blood Gas Type ART Normal [facility] Comment on above: Performed By: #### L 9000.0800 ####[facility] [address] [place], [address] CO2 [Moles/Vol] 28 mmol/L Normal [facility] Comment on above: Performed By: #### L 9000.0800 ####[facility] [address] [place], [address] FI02 4.0 Normal [facility] Comment on above: Performed By: #### L 9000.0800 ####[facility] [address] [place], [address] HCO3 (Bld) [Moles/Vol] 26.9 mmol/L High 22-26 [facility] Comment on above: Performed By: #### L 9000.0800 ####[facility] [address] [place], [address] Mode Not entered Normal [facility] Comment on above: Performed By: #### L 9000.0800 ####[facility] [address] [place], [address] O2 Delivery Dev Cannula Normal [facility] Comment on above: Performed By: #### L 0.0800 ####[facility] [address] [place], [address] pCO2 40.3 mmHg Normal 35-45 [facility] Comment on above: Performed By: #### L 0.0800 ####[facility] [address] [place], [address] pH (Bld) 7.43 [pH] Normal 7.35-7.45 [facility] Comment on above: Performed By: #### L 0.0800 ####[facility] [address] [place], [address] PO2 90 mmHG Normal 75-100 [facility] Comment on above: Performed By: #### L 0.0800 ####[facility] [address] [place], [address] SITE R Brach Normal [facility] Comment on above: Performed By: #### L 0.0800 ####[facility] [address] [place], [address] SO2 97 Normal 95-99 [facility] Comment on above: Performed By: #### L 0.0800 ####[facility] [address] [place], [address] CBC W/Diff, Automatedon 07-0 3-2024 Absolute Lymph 0.90 X10 3/uL Normal 0.83-4.51 [facility] Comment on above: Performed By: #### L 100.0100, L500.2500 ####[facility] [address] [place], [address] Absolute Neut 12.4 X10 3/uL High 2.0-7.7 [facility] Comment on above: Performed By: #### L 100.0100, L500.2500 ####[facility] [address] [place], [address] Basophils/100 WBC (Bld) 0.5 % Normal 0-1 [facility] Comment on above: Performed By: #### L 100.0100, L500.2500 ####[facility] [address] [place], [address] Eosinophils/100 WBC (Bld) 0.3 % Normal 0-5 [facility] Comment on above: Performed By: #### L 100.0100, L500.2500 ####[facility] [address] [place], [address] Erythrocyte distribution width (RBC) [Ratio] 13.4 % Normal 11.6-14.6 [facility] Comment on above: Performed By: #### L 100.0100, L500.2500 ####[facility] [address] [place], [address] Hematocrit (Bld) [Volume fraction] 40.2 % Normal 37-47 [facility] Comment on above: Performed By: #### L 100.0100, L500.2500 ####[facility] [address] [place], [address] Hemoglobin (Bld) [Mass/Vol] 13.1 g/dL Normal 12.0-15.0 [facility] Comment on above: Performed By: #### L 100.0100, L500.2500 ####[facility] [address] [place], [address] IG% 0.900 Normal 0.0-0.9 [facility] Comment on above: Result Comment: IG% - Immature Granulocytes (promyelocytes, myelocytes and metamyelocytes) > 1% indicates that a LEFT SHIFT is Present. Performed By: #### L 100.0100, L500.2500 ####[facility] [address] [place], [address] Lymphocytes/100 WBC (Bld) 6.3 % Low 19-41 [facility] Comment on above: Performed By: #### L 100.0100, L500.2500 ####[facility] [address] [place], [address] MCH (RBC) [Entitic mass] 31.5 pg Normal 27.0-32.0 [facility] Comment on above: Performed By: #### L 100.0100, L500.2500 ####[facility] [address] [place], [address] MCHC (RBC) [Mass/Vol] 32.6 g/dL Normal 32-36 [facility] Comment on above: Performed By: #### L 100.0100, L500.2500 ####[facility] [address] [place], [address] MCV (RBC) [Entitic vol] 96.6 fL Normal 81-99 [facility] Comment on above: Performed By: #### L 100.0100, L500.2500 ####[facility] [address] [place], [address] Monocytes/100 WBC (Bld) 5.5 % Normal 0-10 [facility] Comment on above: Performed By: #### L 100.0100, L500.2500 ####[facility] [address] [place], [address] Neutrophils/100 WBC (Bld) 86.5 % High 47-70 [facility] Comment on above: Performed By: #### L 100.0100, L500.2500 ####[facility] [address] [place], [address] Nucleated RBC (Bld) [#/Vol] 0 10*3/uL Normal 0-5 [facility] Comment on above: Performed By: #### L 100.0100, L500.2500 ####[facility] [address] [place], [address] Platelet mean volume (Bld) [Entitic vol] 11.1 fL Normal 6.2-12.0 [facility] Comment on above: Performed By: #### L 100.0100, L500.2500 ####[facility] [address] [place], [address] Platelets (Bld) [#/Vol] 266 10*3/uL Normal 150-450 [facility] Comment on above: Performed By: #### L 100.0100, L500.2500 ####[facility] [address] [place], [address] RBC (Bld) [#/Vol] 4.16 10*6/uL Low 4.2-5.4 [facility] Comment on above: Performed By: #### L 100.0100, L500.2500 ####[facility] [address] [place], [address] RDW SD 47.8 fl High 35.1-43.9 [facility] Comment on above: Performed By: #### L 100.0100, L500.2500 ####[facility] [address] [place], [address] WBC (Bld) [#/Vol] 14.3 10*3/uL High 4.4-11.0 [facility] Comment on above: Performed By: #### L 100.0100, L500.2500 ####[facility] [address] [place], [address] Emergency Department Summary on 08-25-2023 Emergency Department Summary [facility] Medical Records Department [address] [place] [address] Emergency Department Summary 08/25/23 MR#: [id number] Acct: [id number] Name: DAVID STREET Rep #: [id number] : 1950 73 From: Coy Syed MD [...] on the left hip where she landed. [facility] Medical History Hypercholesteremia Peripheral vascular [...] hematuria Muscu (more content not included)... Normal [facility] H AND P Exam - Hospitaliston 08-25-2023 H&P Exam - Hospitalist [facility] Medical Records Department [address] [place] [address] H P Exam - Hospitalist 08/25/23 0745 MR#: [id number] Acct: [id number] Name: DAVID STREET Rep #: [id number] : 1950 73 From: Maximilian Kitchen MD PCP: Dr. Richie Heredia, DO Status:ADM PIERCE [place] [facility] [id number] HPI - General General Date of Admission: [...] to regular nursing floor for further management [facility] Medical History Hypercholesteremia Peripheral vascular disease Palpitations [...] focal num (more content not included)... Normal [facility] Lactic Acidon 08-25-2023 Lactate [Moles/Vol] 3.2 mmol/L Invalid Interpretation Code 0.4-1.9 [facility] Comment on above: Result Comment: Crit ical Result(s) Called at: 11:00:25 08/25/2023 by: OTF COFFEY TO WENCESLAO FRYE. Results read back by same. Performed By: #### L 503.6005 ####[facility] [address] [place], [address] Lactate [Moles/Vol] 2.0 mmol/L Normal 0.4-1.9 [facility] Comment on above: Order Comment: 'TROP ' Serial specimen #1, #2 or #3: 1 Result Comment: Crit ical Result(s) Called at: 06:55:28 08/25/2023 by: YARY FLORIAN to Steve Ward. Results read back by same. Performed By: #### L 501.4020, L500.2500, L100.0100 #### [facility] [address] [place], [address] M100.678on 08-25-2023 M100.678 SARS-CoV-2 (COVID 19) Negative INFLUENZA A Negative INFLUENZA B Negative RSV PCR Negative Normal [facility] Comment on above: Performed By: #### L 400.0001, M100.678 ####[facility] [address] [place], [address] Pelvis 1 or 2 Viewson 2023 Pelvis 1 or 2 Views [facility] Imaging Services [address] [place] [address] Pelvis 1 or 2 Views MR#: [id number] Acct: [id number] Name: DAVID STREET Rep #: [id number] : 1950 F 73 From: Richie Chandler PCP: Dr. Richie Heredia, DO Status: DIS IN Study: Pelvis 1 or 2 Views Date of Exam: 08/25/23 Exam# [id number] Ordering Dr: Coy Syed MD [id number] EXAM: XR PELVIS, 1 OR 2 VIEWS [...] Coy Syed MD; Dr. Richie Heredia DO Road Crossing Guard: Signed Normal [facility] RESPIRATORY PANEL MOLECULARo n 08-25-2023 RP PANEL ADENOVIRUS Not Detected INFLUENZA A Not Detected INFLUENZA A (SUBTYPE H1) Not Detected INFLUENZA A (SUBTYPE H3) Not Detected INFLUENZA B Not Detected HUMAN METAPHNEUMO Not Detected PARAINFLUENZA 1 Not Detected PARAINFLUENZA 2 Not Detected PARAINFLUENZA 3 Not Detected PARAINFLUENZA 4 Not Detected RHINOVIRUS Not Detected RSV A Not Detected RSV B Not Detected Normal [facility] Comment on above: Performed By: #### L 501.4020, L500.2500, L100.0100 #### [facility] [address] [facility] [place], [address] Ribs Uni Min 3V w/PA Cheston 08-25-2023 Ribs Uni Min 3V w/PA Chest [facility] Imaging Services [address] [place] [address] Ribs Uni Min 3V w/PA Chest MR#: [id number] Acct: [id number] Name: DAVID STREET Rep #: [id number] : 1950 F 73 From: Maximo Chandler PCP: Dr. Richie Heredia DO Status: REG ER Study: Ribs Uni Min 3V w/PA Chest Date of Exam: 08/24 Exam# [id number] Ordering Dr: Coy Syed MD [id number] INDICATION: fall/injury EXAMINATION/TECHNIQU E: X-RAY - XR [...] Coy Syed MD; Dr. Richie Heredia DO Road Crossing Guard: Signed Normal [facility] Urinalysis, Completeon 08-24 BACTERIA 0 SEEN Normal None Seen [facility] Comment on above: Order Comment: BLADD ER TAP Performed By: #### L 400.0001, M1. ####[facility] [address] [place], [address] EPI,SQUAMOUS 0 SEEN Normal 5-10 [facility] Comment on above: Order Comment: BLADD ER TAP Performed By: #### L 400.0001, M1 ####[facility] [address] [place], [address] Mucus Ql (Urine sed) 0 SEEN Normal [facility] Comment on above: Order Comment: BLADD ER TAP Performed By: #### L 400.0001, M100.678 ####[facility] [address] [place], [address] RBC 0 SEEN Normal 0-5 [facility] Comment on above: Order Comment: BLADD ER TAP Performed By: #### L 400.0001, M100.678 ####[facility] [address] [place], [address] WBC 0 SEEN Normal 0-5 [facility] Comment on above: Order Comment: BLADD ER TAP Performed By: #### L 400.0001, M100.678 ####[facility] [address] [place], [address] CREATININE FINGERSTICKon 4 CREATININE WB < 1.0 Normal 0.55-1.02 [facility] Comment on above: Performed By: #### L 9100.0210, L9100.0220 ####[facility] [address] [place], [address] EGFR FINGERSTICKon 4 EGFR WB > 60.0 Normal >60 [facility] Comment on above: Performed By: #### L 9100.0210, L9100.0220 ####[facility] [address] [place], [address] FT3on 08-12-2023 Free T3 [Mass/Vol] 2.22 pg/mL Low 2.30-4.00 [facility] ([place]) Comment on above: Performed By: #### T SH, FT3, FT4 #### [place] [address] [address] FT4on 08-12-2023 Free T4 [Mass/Vol] 0.92 ng/dL Normal 0.76-1.46 [facility] ([place]) Comment on above: Performed By: #### T SH, FT3, FT4 #### [place] [address] [address] LABORATORYOrdered By: SYSTEM SYSTEM on 08-12-2023 Free T3 [Mass/Vol] 2.22 pg/mL Low 2.30 - 4. 00 pg/mL AO ADM SS Free T4 [Mass/Vol] 0.92 ng/dL Normal 0.76 - 1. 46 ng/dL AO ADM SS TSH Qn 4.34 m[IU]/L High 0.36 - 3.74 mcIU/mL AO ADM SS TSHon 08-12-2023 TSH Qn 4.34 m[IU]/L High 0.36-3.74 [facility] ([place]) Comment on above: Performed By: #### T SH, FT3, FT4 #### [place] [place], [place] [address] Venous Blood Gason 4 Blood Gas Type ANDRÉS [facility] Comment on above: Performed By: #### L 9000.0810 ####[facility] [address] [place], [address] CO2 [Moles/Vol] 37 mmol/L High 23-33 [facility] Comment on above: Performed By: #### L 9000.0810 ####[facility] [address] [place], [address] FI02 2.0 [facility] Comment on above: Performed By: #### L 9000.0810 ####[facility] [address] [place], [address] HCO3 (Bld) [Moles/Vol] 35 mmol/L High 22-26 [facility] Comment on above: Performed By: #### L 9000.0810 ####[facility] [address] [place], [address] O2 Delivery Dev Cannula Normal [facility] Comment on above: Performed By: #### L 9000.0810 ####[facility] [address] [place], [address] SITE Not entered [facility] Comment on above: Performed By: #### L 9000.0810 ####[facility] [address] [place], [place], [address] VBG BE 10 mmol/L High -1.0-3.5 [facility] Comment on above: Performed By: #### L 9000.0810 ####[facility] [address] [place], [address] VBG pCO2 59.8 mmHg High 41-51 [facility] Comment on above: Performed By: #### L 9000.0810 ####[facility] [address] [place], [address] VBG pH 7.38 Normal 7.32-7.42 [facility] Comment on above: Performed By: #### L 9000.0810 ####[facility] [address] [place], [address] VBG PO2 45 mmHg High 25-40 [facility] Comment on above: Performed By: #### L 9000.0810 ####[facility] [address] [place], [address] VBG SO2 78 High 50-70 [facility] Comment on above: Performed By: #### L 9000.0810 ####[facility] [address] [place], [address] 12 Lead EKGon 07-26-2023 12 Lead EKG [facility] Cardiovascular Services [address] [place] [address] 12 Lead EKG 07/26/23 1655 MR#: [id number] Acct: [id number] Name: DAVID STREET Rep #: [id number] : 1950 73 From: Alberto Williamson MD [...] ECG Confirmed by GREER BRAGG, ALBERTO ([id number]), image editor JASVIR NESBITT ([id number]) on 07/27/2023 2:13:58 PM Referred By: ERROL SURESH Confirmed By:ALBERTO WILLIAMSON MD 07/27/23 1414 Date Alberto Williamson MD CC: Dr. Hunter Ryna MD; Dr. Richie Heredia, DO Signed Normal [facility] Ammoniaon 07-26-2023 Ammonia (P) [Moles/Vol] 19.0 umol/L Normal -32 [facility] Comment on above: Performed By: #### L 501.4020, L100.0100, L500.4050, L503.5510 ####[facility] [address] [place], [address] CBC W/Diff, Automatedon 06- Absolute Lymph 2.19 X10 3/uL Normal 0.83-4.51 [facility] Comment on above: Performed By: #### L 501.4020, L100.0100, L500.4050, L503.5510 ####[facility] [address] [place], [address] Absolute Neut 4.8 X10 3/uL Normal 2.0-7.7 [facility] Comment on above: Performed By: #### L 501.4020, L100.0100, L500.4050, L503.5510 ####[facility] [address] [place], [address] Basophils/100 WBC (Bld) 0.6 % Normal 0-1 [facility] Comment on above: Performed By: #### L 501.4020, L100.0100, L500.4050, L503.5510 ####[facility] [address] [place], [address] Eosinophils/100 WBC (Bld) 2.2 % Normal 0-5 [facility] Comment on above: Performed By: #### L 501.4020, L100.0100, L500.4050, L503.5510 ####[facility] [address] [place], [address] Erythrocyte distribution width (RBC) [Ratio] 13.3 % Normal 11.6-14.6 [facility] Comment on above: Performed By: #### L 501.4020, L100.0100, L500.4050, L503.5510 ####[facility] [address] [place], [address] Hematocrit (Bld) [Volume fraction] 41.9 % Normal 37-47 [facility] Comment on above: Performed By: #### L 501.4020, L100.0100, L500.4050, L503.5510 ####[facility] [address] [place], [address] Hemoglobin (Bld) [Mass/Vol] 13.2 g/dL Normal 12.0-15.0 [facility] Comment on above: Performed By: #### L 501.4020, L100.0100, L500.4050, L503.5510 ####[facility] [address] [place], [address] IG% 0.500 Normal 0.0-0.9 [facility] Comment on above: Result Comment: IG% - Immature Granulocytes (promyelocytes, myelocytes and metamyelocytes) > 1% indicates that a LEFT SHIFT is Present. Performed By: #### L 501.4020, L100.0100, L500.4050, L503.5510 ####[facility] [address] [place], [address] Lymphocytes/100 WBC (Bld) 28.4 % Normal 19-41 [facility] Comment on above: Performed By: #### L 501.4020, L100.0100, L500.4050, L503.5510 ####[facility] [address] [place], [address] MCH (RBC) [Entitic mass] 31.4 pg Normal 27.0-32.0 [facility] Comment on above: Performed By: #### L 501.4020, L100.0100, L500.4050, L503.5510 ####[facility] [address] [place], [address] MCHC (RBC) [Mass/Vol] 31.5 g/dL Low 32-36 [facility] Comment on above: Performed By: #### L 501.4020, L100.0100, L500.4050, L503.5510 ####[facility] [address] [place], [address] MCV (RBC) [Entitic vol] 99.8 fL High 81-99 [facility] Comment on above: Performed By: #### L 501.4020, L100.0100, L500.4050, L503.5510 ####[facility] [address] [place], [address] Monocytes/100 WBC (Bld) 6.6 % Normal 0-10 [facility] Comment on above: Performed By: #### L 501.4020, L100.0100, L500.4050, L503.5510 ####[facility] [address] [place], [address] Neutrophils/100 WBC (Bld) 61.7 % Normal 47-70 [facility] Comment on above: Performed By: #### L 501.4020, L100.0100, L500.4050, L503.5510 ####[facility] [address] [place], [address] Nucleated RBC (Bld) [#/Vol] 0 10*3/uL Normal 0-5 [facility] Comment on above: Performed By: #### L 501.4020, L100.0100, L500.4050, L503.5510 ####[facility] [address] [place], [address] Platelet mean volume (Bld) [Entitic vol] 11.6 fL Normal 6.2-12.0 [facility] Comment on above: Performed By: #### L 501.4020, L100.0100, L500.4050, L503.5510 ####[facility] [address] [place], [address] Platelets (Bld) [#/Vol] 312 10*3/uL Normal 150-450 [facility] Comment on above: Performed By: #### L 501.4020, L100.0100, L500.4050, L503.5510 ####[facility] [address] [place], [address] RBC (Bld) [#/Vol] 4.20 10*6/uL Normal 4.2-5.4 [facility] Comment on above: Performed By: #### L 501.4020, L100.0100, L500.4050, L503.5510 ####[facility] [address] [place], [address] RDW SD 48.7 fl High 35.1-43.9 [facility] Comment on above: Performed By: #### L 501.4020, L100.0100, L500.4050, L503.5510 ####[facility] [address] [place], [address] WBC (Bld) [#/Vol] 7.7 10*3/uL Normal 4.4-11.[address] [facility] Comment on above: Performed By: #### L 501.4020, L100.0100, L500.4050, L503.5510 ####[facility] [address] [place], [address] Chest 1 View (Portable)on Chest 1 View (Portable) [facility] Imaging Services [address] [place] [address] Chest 1 View (Portable) MR#: [id number] Acct: [id number] Name: DAVID STREET Rep #: [id number] : 1950 F 73 From: Yann Tsang DO PCP: Dr. Richie Heredia DO Status: PRE ER Study: Chest 1 View (Portable) Date of Exam: 07/26/23 Exam# [id number] Ordering Dr: Hunter Ryan MD [id number] INDICATION: shortness of breath EXAMINATION/TECHNIQU E: X-RAY [...] Hunter Ryan MD; Dr. Richie Heredia DO Road Crossing Guard: Signed Normal [facility] Comprehensive Metabolic Prof ilon 07-26-2023 Albumin [Mass/Vol] 3.3 g/dL Normal 3.2-5.[address] [facility] Comment on above: Order Comment: 'TROP ' Serial specimen #1, #2 or #3: 1 Performed By: #### L 501.4020, L100.0100, L500.4050, L503.5510 ####[facility] [address] [place], [address] Albumin/Globulin [Mass ratio] 0.9 {ratio} Normal 0.9-2.4 [facility] Comment on above: Order Comment: 'TROP ' Serial specimen #1, #2 or #3: 1 Performed By: #### L 501.4020, L100.0100, L500.4050, L503.5510 ####[facility] [address] [place], [address] ALK P 144 U/L High 45-117 [facility] Comment on above: Order Comment: 'TROP ' Serial specimen #1, #2 or #3: 1 Performed By: #### L 501.4020, L100.0100, L500.4050, L503.5510 ####[facility] [address] [place], [address] ALT [Catalytic activity/Vol] 21 U/L Normal 13-56 [facility] Comment on above: Order Comment: 'TROP ' Serial specimen #1, #2 or #3: 1 Performed By: #### L 501.4020, L100.0100, L500.4050, L503.5510 ####[facility] [address], [address] AST [Catalytic activity/Vol] 18 U/L Normal 15-37 [facility] Comment on above: Order Comment: 'TROP ' Serial specimen #1, #2 or #3: 1 Performed By: #### L 501.4020, L100.0100, L500.4050, L503.5510 ####[facility] [address] [place], [address] Bilirubin [Mass/Vol] 0.20 mg/dL Normal 0.20-1.00 [facility] Comment on above: Order Comment: 'TROP ' Serial specimen #1, #2 or #3: 1 Result Comment: For patients on eltrombopag therapy, use of Dimension [place] TBIL is not recommended. Performed By: #### L 501.4020, L100.0100, L500.4050, L503.5510 ####[facility] [address] [place], [address] BUN/CRE 21.0 RATIO High 10-20 [facility] Comment on above: Order Comment: 'TROP ' Serial specimen #1, #2 or #3: 1 Performed By: #### L 501.4020, L100.0100, L500.4050, L503.5510 ####[facility] [address] [place], [address] CA,Total 8.8 mg/dL Normal 8.5-10.1 [facility] Comment on above: Order Comment: 'TROP ' Serial specimen #1, #2 or #3: 1 Performed By: #### L 501.4020, L100.0100, L500.4050, L503.5510 ####[facility] [address] [place], [address] Chloride [Moles/Vol] 104 mmol/L Normal 98-107 [facility] Comment on above: Order Comment: 'TROP ' Serial specimen #1, #2 or #3: 1 Performed By: #### L 501.4020, L100.0100, L500.4050, L503.5510 ####[facility] [address] [place], [address] CO2 [Moles/Vol] 32.0 mmol/L Normal 21.0-32.0 [facility] Comment on above: Order Comment: 'TROP ' Serial specimen #1, #2 or #3: 1 Performed By: #### L 501.4020, L100.0100, L500.4050, L503.5510 ####[facility] [address] [place], [address] Creatinine [Mass/Vol] 1.05 mg/dL High 0.55-1.02 [facility] Comment on above: Order Comment: 'TROP ' Serial specimen #1, #2 or #3: 1 Result Comment: The validity of the calculated GFR GFRAA in patients over 70 years has not been determined. Clinical correlation is essential. Performed By: #### L 501.4020, L100.0100, L500.4050, L503.5510 ####[facility] [address] [place], [address] ECRCL 54.79 ml/min Normal [facility] Comment on above: Order Comment: 'TROP ' Serial specimen #1, #2 or #3: 1 Performed By: #### L 501.4020, L100.0100, L500.4050, L503.5510 ####[facility] [address] [place], [address] EST GFR - AA 66 mL/min Normal >60 [facility] Comment on above: Order Comment: 'TROP ' Serial specimen #1, #2 or #3: 1 Result Comment: Afri can Slovenian GFR Calc Performed By: #### L 501.4020, L100.0100, L500.4050, L503.5510 ####[facility] [address] [place], [address] GAP 5 Normal 5-15 [facility] Comment on above: Order Comment: 'TROP ' Serial specimen #1, #2 or #3: 1 Performed By: #### L 501.4020, L100.0100, L500.4050, L503.5510 ####[facility] [address] [place], [address] GFR/1.73 sq M.predicted among non-blacks MDRD (S/P/Bld) [Vol rate/Area] 55 mL/min/{1.73_m2} Low >60 [facility] Comment on above: Order Comment: 'TROP ' Serial specimen #1, #2 or #3: 1 Result Comment: Non- GFR Calc Performed By: #### L 501.4020, L100.0100, L500.4050, L503.5510 ####[facility] [address] [place], [address] Globulin (S) [Mass/Vol] 3.5 g/dL Normal 2.2-4.2 [facility] Comment on above: Order Comment: 'TROP ' Serial specimen #1, #2 or #3: 1 Performed By: #### L 501.4020, L100.0100, L500.4050, L503.5510 ####[facility] [address] [place], [address] Glucose [Mass/Vol] 95 mg/dL Normal 74-[address] [facility] Comment on above: Order Comment: 'TROP ' Serial specimen #1, #2 or #3: 1 Performed By: #### L 501.4020, L100.0100, L500.4050, L503.5510 ####[facility] [address] [place], [address] Potassium [Moles/Vol] 3.7 mmol/L Normal 3.5-5.1 [facility] Comment on above: Order Comment: 'TROP ' Serial specimen #1, #2 or #3: 1 Performed By: #### L 501.4020, L100.0100, L500.4050, L503.5510 ####[facility] [address] [place], [address] Sodium [Moles/Vol] 141 mmol/L Normal 136-[address] [facility] Comment on above: Order Comment: 'TROP ' Serial specimen #1, #2 or #3: 1 Performed By: #### L 501.4020, L100.0100, L500.4050, L503.5510 ####[facility] [address] [place], [address] T PROT 6.8 g/dL Normal 6.4-8.2 [facility] Comment on above: Order Comment: 'TROP ' Serial specimen #1, #2 or #3: 1 Performed By: #### L 501.4020, L100.0100, L500.4050, L503.5510 ####[facility] [address] [place], [address] Urea nitrogen [Mass/Vol] 22 mg/dL High 7-18 [facility] Comment on above: Order Comment: 'TROP ' Serial specimen #1, #2 or #3: 1 Performed By: #### L 501.4020, L100.0100, L500.4050, L503.5510 ####[facility] [address] [facility] [place], [address] Emergency Department Summary on 07-26-2023 Emergency Department Summary [facility] Medical Records Department [address] [place] [address] Emergency Department Summary 07/26/23 MR#: [id number] Acct: [id number] Name: DAVID STREET Rep #: [id number] : 1950 73 From: Hunter Ryan MD PCP: Dr. Richie Heredia, DO Status:[facility] ER Location: ED HPI History of Present [...] wanted to do was sleep all day. [facility] Medical History Hypercholesteremia Peripheral vascular [...] auscultation bilaterally. (more content not included)... Normal [facility] L501.4020on 06-03-2024 TROPONIN-I HS 9 pg/mL Normal 3.0-54.0 [facility] Comment on above: Order Comment: 'TROP ' Serial specimen #1, #2 or #3: 1 Result Comment: Bernardo feng Note: New Test Units and Gender Specific Reference Ranges. For more information see Policy Stat Procedure [place] High Sensitivity Troponin (TNIH) and attachments. Performed By: #### L 501.4020, L100.0100, L500.4050, L503.5510 ####[facility] [address] [place], [address] Urinalysis, Completeon 07-25 EPI,SQUAMOUS 0-5 SEEN Normal 5-10 [facility] Comment on above: Order Comment: AUDREY TER SPECIMEN Performed By: #### L 501.080 #### [facility] [address] [place], [address] WBC 0-5 SEEN Normal 0-5 [facility] Comment on above: Order Comment: AUDREY TER SPECIMEN Performed By: #### L 501.080 #### [facility] [address] [place], [address] YEAST 2+ /hpf Normal None Seen [facility] Comment on above: Order Comment: AUDREY TER SPECIMEN Performed By: #### L 501.080 #### [facility] [address] [place], [address] BACTERIA 0 SEEN Normal None Seen [facility] Comment on above: Order Comment: AUDREY TER SPECIMEN Performed By: #### L 501.080 #### [facility] [address] [place], [address] Mucus Ql (Urine sed) 0 SEEN Normal [facility] Comment on above: Order Comment: AUDREY TER SPECIMEN Performed By: #### L 501.080 #### [facility] [address] [place], [address] RBC 0 SEEN Normal 0-5 [facility] Comment on above: Order Comment: AUDREY [facility] SPECIMEN Performed By: #### L 501.080 #### [facility] [address] [place], [place], [address] Basophil percentageOrdered B y: Richie Heredia on 04-20-2023 Bilirubin [Mass/Vol] 0.40 mg/dL 0.20-1.00 [facility] Comment on above: For patients on eltr ombopag therapy, use of Dimension [place] TBIL is not recommended. Chloride [Moles/Vol] 106 mmol/L 98-107 [facility] Cholesterol [Mass/Vol] 191 mg/dL <200 [facility] Comment on above: <200 mg/dL Desirable 200-240 mg/dL Borderline >240 mg/dL High Risk Glucose [Mass/Vol] 130 mg/dL 74-[address] [facility] Comment on above: Fasting Glucose resu lt greater than or equal to 126 mg/dL suggests DIABETES MELLITUS per A.D.A. criteria. Hemoglobin (Bld) [Mass/Vol] 13.6 g/dL 12.0-15.0 [facility] Potassium [Moles/Vol] 4.4 mmol/L 3.5-5.1 [facility] Protein [Mass/Vol] 6.9 g/dL 6.4-8.[address] [facility] Sodium [Moles/Vol] 139 mmol/L 136-[address] [facility] Triglyceride [Mass/Vol] 114 mg/dL <199 [facility] Comment on above: The drugs N-Acetylcy steine and Metamizole may falsely depress this assay.Serum Triglycerides Reference Interval Normal <150 mg/dL Borderline high 150 - 199 mg/dL High 200 - 499 mg/dL Very High > or = 500 mg/dL WBC (Bld) [#/Vol] 8.1 10*3/uL 4.4-11.[address] [facility] Determination of erythrocyte mean corpuscular volume (MCV)Ordered By: Richie Heredia on 04-20-2023 MCV (RBC) [Entitic vol] 96.0 fL 81-99 [facility] Erythrocyte distribution wid th ratioOrdered By: Richie Heredia on 04-20-2023 Erythrocyte distribution width (RBC) [Ratio] 14.0 % 11.6-14.6 [facility] Erythrocyte distribution wid th standard deviationOrdered By: Richie Heredia on 04-20-2023 Erythrocyte distribution width (RBC) [Entitic vol] 49.8 fL 35.1-43.9 [facility] Hematocrit Auto (Bld) [Volum e fraction]Ordered By: Richie Heredia on 04-20-2023 Hematocrit (Bld) [Volume fraction] 43.7 % 37-47 [facility] - Chemistry and C hemistry - challengeOrdered By: Richie Heredia on 04-20-2023 Albumin/Globulin [Mass ratio] 1.0 {ratio} 0.9-2.4 [facility] ALP [Catalytic activity/Vol] 102 U/L 45-117 [facility] ALT [Catalytic activity/Vol] 14 U/L 13-56 [facility] Cholesterol in HDL [Mass/Vol] 46 mg/dL >40 [facility] Comment on above: The drugs N-Acetylcy steine and Metamizole may falsely depress this assay. Reference Range HDL <40 mg/dL Low HDL Cholesterol HDL >or= 60 mg/dL High HDL Cholesterol Cholesterol in LDL [Mass/Vol] 122 mg/dL 0-130 [facility] CO2 [Moles/Vol] 32.0 mmol/L 21.0-32.0 [facility] Cobalamin (Vitamin B12) [Mass/Vol] 655 pg/mL 211-911 [facility] Globulin (S) [Mass/Vol] 3.5 g/dL 2.2-4.2 [facility] Natriuretic peptide B (Bld) [Mass/Vol] 106.6 pg/mL 0-100 [facility] Urea nitrogen/Creatinine [Mass ratio] 25.9 mg/mg 10-20 [facility] - Hematology and Cell countsOrdered By: Richie Heredia on 04-20-2023 MCH (RBC) [Entitic mass] 29.9 pg 27.0-32.0 [facility] MCHC (RBC) [Mass/Vol] 31.1 g/dL 32-36 [facility] Platelet mean volume (Bld) [Entitic vol] 11.5 fL 6.2-12.0 [facility] Platelets (Bld) [#/Vol] 320 10*3/uL 150-450 [facility] No Panel InformationOrdered By: Richie Heredia on 04-20-2023 Estimated GFR (MDRD) Amer 64 mL/min >60 [facility] Comment on above: GFR Calc Estimated GFR (MDRD) Non-Af Amer 53 mL/min >60 [facility] Comment on above: Non- GFR Calc Folate 3.20 ng/mL 3.1-55.4 [facility] Urine Microalbumin/Creatinine Ratio 8.3 mg/g CRE <30 [facility] Vitamin D 25-Hydroxy 26.1 ng/mL [facility] Comment on above: Vitamin D 25(OH) Sta tus Range Deficiency <20 ng/mL (50nmol/L) Insufficiency 20 - 30 ng/mL (50 - 75 nmol/L) Sufficiency 30 - 100 ng/mL (75 - 250 nmol/L) Toxicity >100 ng/mL (>250 nmol/L) VLDL Cholesterol 23 mg/dL 5-40 [facility] RBC Auto (Bld) [#/Vol]Ordere d By: Richie Heredia on 04-20-2023 RBC (Bld) [#/Vol] 4.55 10*6/uL 4.2-5.4 [facility] Serum or plasma calcium brittny urement (mass/volume)Ordered By: Richie Heredia on 04-20-2023 Calcium [Mass/Vol] 9.6 mg/dL 8.5-10.[address] [facility] Serum or plasma creatinine m easurement (mass/volume)Ordered By: Richie Heredia on 04-20-2023 Creatinine [Mass/Vol] 1.08 mg/dL 0.55-1.02 [facility] Comment on above: The validity of the calculated GFR & GFRAA in patients over 70 years has not been determined. Clinical correlation is essential. Serum or plasma thyroid stim ulating hormone (TSH) measurement (units/volume)Ordered By: Richie Heredia on 04-20-2023 TSH Qn 3.70 uIU/mL 0.358-3.74 [facility] Serum or plasma urea nitroge n measurement (mass/volume)Ordered By: Richie Heredia on 04-20-2023 Urea nitrogen [Mass/Vol] 28 mg/dL 7-18 [facility] Thin prep Papanicolaou smear with manual screeningOrdered By: Richie Heredia on 04-20-2023 Thin prep Papanicolaou smear with manual screening 3.4 g/dL 3.2-5.0 [facility] Thin prep Papanicolaou smear with manual screening 10 U/L 15-37 [facility] Thin prep Papanicolaou smear with manual screening 1 5-15 [facility] Thin prep Papanicolaou smear with manual screening 10.4 mg/L NO RANGE EST. [facility] Thin prep Papanicolaou smear with manual screening 0.92 ng/dL 0.76-1.46 [facility] Urine creatinine measurement (mass/volume)Ordered By: Richie Heredia on 04-20-2023 Creatinine (U) [Mass/Vol] 125.00 mg/dL NO RANGE EST. [facility] Whole blood hemoglobin A1c/t otal hemoglobin ratio (mass fraction)Ordered By: Richie Heredia on 04-20-2023 HbA1c (Bld) [Mass fraction] 5.8 % 3.8-5.6 [facility] Comment on above: Normal < 5.7 % Predi abetic 5.7 - 6.4 % Diabetic >or= 6.5 % Please note range changes. .Urinalysis Microscopic (AO) on 03-18-2023 UA Bacteria 4+ /hpf Abnormal [facility] ([place]) Comment on above: Performed By: #### U A, UAMICAO #### [address] [address] UA RBC 5-10 Abnormal None Seen [facility] ([place]) Comment on above: Performed By: #### U A, UAMICAO #### [address] [address] UA Squam Epithelial 15-25 Abnormal None Seen [facility] ([place]) Comment on above: Performed By: #### U A, UAMICAO #### [address] [address] UA WBC LOADED Abnormal None Seen [facility] ([place]) Comment on above: Performed By: #### U A, UAMICAO #### [address] [place] [address] LABORATORYOrdered By: Oxana Ball on 03-18-2023 Appearance [...] levoFLOXacin TWYLA [Susc] >100,000 cfu/ml Escherichia coli [facility] Work Phone: UAon 03-18-2023 Color (U) Yellow Normal [facility] ([place]) Comment on above: Performed By: #### U A, UAMICAO #### [address] [address] Glucose (U) [Mass/Vol] 500 mg/dL Abnormal Negative [facility] ([place]) Comment on above: Performed By: #### U A, UAMICAO #### [address] [address] Ketones Ql (U) Negative Normal Negative [facility] ([place]) Comment on above: Performed By: #### U A, UAMICAO #### [address] [address] UA Appear Slightly Cloudy Abnormal Clear [facility] ([place]) Comment on above: Performed By: #### U A, UAMICAO #### [address] [address] UA Blood Trace Abnormal Negative [facility] ([place]) Comment on above: Performed By: #### U A, UAMICAO #### [address] [address] UA Leuk Est Large Abnormal Negative [facility] ([place]) Comment on above: Performed By: #### U A, UAMICAO #### [address] [address] UA Nitrite Negative Normal Negative [facility] ([place]) Comment on above: Performed By: #### U A, UAMICAO #### [address] [address] UA pH 6.0 Normal 5.0 - 8.0 [facility] ([place]) Comment on above: Performed By: #### U A, UAMICAO #### [address] [address] UA Protein Negative Normal Negative [facility] ([place]) Comment on above: Performed By: #### U A, UAMICAO #### [address] [address] UA Spec Grav 1.015 Normal 1.015-1.025 [facility] ([place]) Comment on above: Performed By: #### U A, UAMICAO #### [facility] [address] [place], [place] [address] UA Specimen Type Not Given Normal [facility] ([place]) Comment on above: Performed By: #### U A, UAMICAO #### [facility] [address] [place], [place] [address] UA Urobilinogen 0.2 E.U./dL Normal 0.2-1.0 [facility] ([place]) Comment on above: Performed By: #### U A, UAMICAO #### [facility] [address] [place], [place] [address] Urobilinogen (U) [Mass/Vol] Negative Normal Negative [facility] ([place]) Comment on above: Performed By: #### U A, UAMICAO #### [address] [place], [place] [address] levoFLOXacin TWYLA [[facility]]on Escherichia coli Escherichia coli [facility] Work Phone: Absolute lymphocyte countOrd ered By: Maximilian Kitchen on 01-30-2023 Lymphocytes Auto (Unsp spec) [#/Vol] 1.18 10*3/uL 0.83-4.51 [facility] Basophil percentageOrdered B y: Maximilian Kitchen on 01-30-2023 Basophils/100 WBC (Bld) 0.5 % 0-1 [facility] Chloride [Moles/Vol] 113 mmol/L 98-107 [facility] Eosinophils/100 WBC (Bld) 2.1 % 0-5 [facility] Glucose [Mass/Vol] 78 mg/dL 74-[address] [facility] Neutrophils (Bld) [#/Vol] 5.6 10*3/uL 2.0-7.7 [facility] Neutrophils/100 WBC (Bld) 73.1 % 47-70 [facility] Potassium [Moles/Vol] 4.2 mmol/L 3.5-5.1 [facility] Sodium [Moles/Vol] 140 mmol/L 136-[address] [facility] WBC (Bld) [#/Vol] 7.7 10*3/uL 4.4-11.[address] [facility] Blood erythrocytes count (nu mber/volume)Ordered By: Maximilian Kitchen on 01-30-2023 RBC (Bld) [#/Vol] 3.46 10*6/uL 4.2-5.4 [facility] Blood hemoglobin measurement (mass/volume)Ordered By: Maximilian Kitchen on 01-30-2023 Hemoglobin (Bld) [Mass/Vol] 10.5 g/dL 12.0-15.0 [facility] Blood lymphocytes/100 leukoc ytesOrdered By: Maximilian Kitchen on 01-30-2023 Lymphocytes/100 WBC (Bld) 15.4 % 19-41 [facility] Blood monocytes/100 leukocyt esOrdered By: Maximilian Kitchen on 01-30-2023 Monocytes/100 WBC (Bld) 8.5 % 0-10 [facility] Blood platelet mean volumeOr dered By: Maximilian Kitchen on 01-30-2023 Platelet mean volume (Bld) [Entitic vol] 12.6 fL 6.2-12.0 [facility] Determination of erythrocyte mean corpuscular volume (MCV)Ordered By: Maximilian Kitchen on 01-30-2023 MCV (RBC) [Entitic vol] 97.1 fL 81-99 [facility] Glucose Glucometer (dC) [M ass/Vol]Ordered By: Maximilian Kitchen on 01-30-2023 Glucose [Mass/Vol] 81 mg/dL 74-[address] [facility] Comment on above: MANAGEMENT OF PATIEN T CARE PER NURSING PROTOCOL Hematocrit Auto (Bld) [Volum e fraction]Ordered By: Maximilian Kitchen on 01-30-2023 Hematocrit (Bld) [Volume fraction] 33.6 % 37-47 [facility] - Chemistry and C hemistry - challengeOrdered By: Maximilian Kitchen on 01-30-2023 CO2 [Moles/Vol] 25.0 mmol/L 21.0-32.0 [facility] Urea nitrogen/Creatinine [Mass ratio] 14.7 mg/mg 10-20 [facility] - Hematology and Cell countsOrdered By: Maximilian Kitchen on 01-30-2023 Erythrocyte distribution width (RBC) [Entitic vol] 54.1 fL 35.1-43.9 [facility] Erythrocyte distribution width (RBC) [Ratio] 15.3 % 11.6-14.6 [facility] Immature granulocytes/100 WBC (Bld) 0.400 % 0.0-0.9 [facility] Comment on above: IG% - Immature Granu locytes (promyelocytes, myelocytes and metamyelocytes) > 1% indicates that a LEFT SHIFT is Present. MCH (RBC) [Entitic mass] 30.3 pg 27.0-32.0 [facility] Nucleated RBC/100 WBC (Bld) [Ratio] 0 % 0-5 [facility] MCHC Auto (RBC) [Mass/Vol]Or dered By: Maximilian Kitchen on 01-30-2023 MCHC (RBC) [Mass/Vol] 31.3 g/dL 32-36 [facility] No Panel InformationOrdered By: Maximilian Kitchen on 01-30-2023 Estimated Creatinine Clearance Calc 93.51 ml/min [facility] Estimated GFR (MDRD) Amer 110 mL/min >60 [facility] Comment on above: GFR Calc Estimated GFR (MDRD) Non-Af Amer 91 mL/min >60 [facility] Comment on above: Non- GFR Calc Platelets bldOrdered By: Doroteo Kitchen on 01-30-2023 Platelets (Bld) [#/Vol] 168 10*3/uL 150-450 [facility] Serum or plasma calcium brittny urement (mass/volume)Ordered By: Maximilian Kitchen on 01-30-2023 Calcium [Mass/Vol] 8.1 mg/dL 8.5-10.[address] [facility] Serum or plasma creatinine m easurement (mass/volume)Ordered By: Maximilian Kitchen on 01-30-2023 Creatinine [Mass/Vol] 0.68 mg/dL 0.55-1.02 [facility] Comment on above: The validity of the calculated GFR & GFRAA in patients over 70 years has not been determined. Clinical correlation is essential. Serum or plasma urea nitroge n measurement (mass/volume)Ordered By: Maximilian Kitchen on 01-30-2023 Urea nitrogen [Mass/Vol] 10 mg/dL 7-18 [facility] Thin prep Papanicolaou smear with manual screeningOrdered By: Maximilian Kitchen on 01-30-2023 Thin prep Papanicolaou smear with manual screening 2 5-15 [facility] Absolute lymphocyte countOrd ered By: Maximilian Kicthen on 01-29-2023 Lymphocytes Auto (Unsp spec) [#/Vol] 1.26 10*3/uL 0.83-4.51 [facility] Basophil percentageOrdered B y: Maximilian Kitchen on 01-29-2023 Basophils/100 WBC (Bld) 0.5 % 0-1 [facility] Chloride [Moles/Vol] 117 mmol/L 98-107 [facility] Eosinophils/100 WBC (Bld) 1.2 % 0-5 [facility] Glucose [Mass/Vol] 93 mg/dL 74-[address] [facility] Neutrophils (Bld) [#/Vol] 6.6 10*3/uL 2.0-7.7 [facility] Neutrophils/100 WBC (Bld) 76.0 % 47-70 [facility] Potassium [Moles/Vol] 3.9 mmol/L 3.5-5.1 [facility] Sodium [Moles/Vol] 142 mmol/L 136-[address] [facility] WBC (Bld) [#/Vol] 8.6 10*3/uL 4.4-11.[address] [facility] Blood erythrocytes count (nu mber/volume)Ordered By: Maximilian Kitchen on 01-29-2023 RBC (Bld) [#/Vol] 3.27 10*6/uL 4.2-5.4 [facility] Blood hemoglobin measurement (mass/volume)Ordered By: Maximilian Kitchen on 01-29-2023 Hemoglobin (Bld) [Mass/Vol] 10.3 g/dL 12.0-15.0 [facility] Blood lymphocytes/100 leukoc ytesOrdered By: Maximilian Kitchen on 01-29-2023 Lymphocytes/100 WBC (Bld) 14.6 % 19-41 [facility] Blood monocytes/100 leukocyt esOrdered By: Maximilian Kitchen on 01-29-2023 Monocytes/100 WBC (Bld) 7.2 % 0-10 [facility] Blood platelet mean volumeOr dered By: Maximilian Kitchen on 01-29-2023 Platelet mean volume (Bld) [Entitic vol] 12.3 fL 6.2-12.0 [facility] Determination of erythrocyte mean corpuscular volume (MCV)Ordered By: Maximilian Kitchen on 01-29-2023 MCV (RBC) [Entitic vol] 96.9 fL 81-99 [facility] Glucose Glucometer (BldC) [M ass/Vol]Ordered By: Maximilian Kitchen on 01-29-2023 Glucose [Mass/Vol] 97 mg/dL 74-[address] [facility] Comment on above: MANAGEMENT OF PATIEN T CARE PER NURSING PROTOCOL Gram stain for investigation of transfusion reactionOrdered By: Maximilian Kitchen on 01-29-2023 Microscopic observation Gram stain Nom (Unsp spec) [facility] Hematocrit Auto (Bld) [Volum e fraction]Ordered By: Maximilian Kitchen on 01-29-2023 Hematocrit (Bld) [Volume fraction] 31.7 % 37-47 [facility] - Chemistry and C hemistry - challengeOrdered By: Maximilian Kitchen on 01-29-2023 CO2 [Moles/Vol] 25.0 mmol/L 21.0-32.0 [facility] Urea nitrogen/Creatinine [Mass ratio] 23.3 mg/mg 10-20 [facility] - CoagulationOrde red By: Maximilian Thomas on 01-29-2023 aPTT Coag (Bld) [Time] 46.2 s 24.1-36.2 [facility] - Hematology and Cell countsOrdered By: Maximilian Kitchen on 01-29-2023 Erythrocyte distribution width (RBC) [Entitic vol] 54.3 fL 35.1-43.9 [facility] Erythrocyte distribution width (RBC) [Ratio] 15.3 % 11.6-14.6 [facility] Immature granulocytes/100 WBC (Bld) 0.500 % 0.0-0.9 [facility] Comment on above: IG% - Immature Granu locytes (promyelocytes, myelocytes and metamyelocytes) > 1% indicates that a LEFT SHIFT is Present. MCH (RBC) [Entitic mass] 31.5 pg 27.0-32.0 [facility] Nucleated RBC/100 WBC (Bld) [Ratio] 0 % 0-5 [facility] MCHC Auto (RBC) [Mass/Vol]Or dered By: Maximilian Kitchen on 01-29-2023 MCHC (RBC) [Mass/Vol] 32.5 g/dL 32-36 [facility] Microbial respiratory cultur eOrdered By: Maximilian Kitchen on 01-29-2023 Bacteria identified Respiratory culture Nom (Unsp spec) or Staphylococcus aureus isolated. [facility] No Panel InformationOrdered By: Maximilian Kitchen on 01-29-2023 Estimated Creatinine Clearance Calc 93.43 ml/min [facility] Estimated GFR (MDRD) Amer 117 mL/min >60 [facility] Comment on above: GFR Calc Estimated GFR (MDRD) Non-Af Amer 96 mL/min >60 [facility] Comment on above: Non- GFR Calc No Panel InformationOrdered By: Maximilian Thomas on 01-29-2023 Giardia Antigen (TWYLA) [facility] Ova and parasitesOrdered By: Maximilian Thomas on 01-29-2023 Ova and parasites identified LM Nom (Unsp spec) [facility] Platelets bldOrdered By: Doroteo Kitchen on 01-29-2023 Platelets (Bld) [#/Vol] 147 10*3/uL 150-450 [facility] Serum or plasma calcium brittny urement (mass/volume)Ordered By: Maximilian Kitchen on 01-29-2023 Calcium [Mass/Vol] 7.5 mg/dL 8.5-10.[address] [facility] Serum or plasma creatinine m easurement (mass/volume)Ordered By: Maximilian Kitchen on 01-29-2023 Creatinine [Mass/Vol] 0.64 mg/dL 0.55-1.02 [facility] Comment on above: The validity of the calculated GFR & GFRAA in patients over 70 years has not been determined. Clinical correlation is essential. Serum or plasma urea nitroge n measurement (mass/volume)Ordered By: Maximilian Kitchen on 01-29-2023 Urea nitrogen [Mass/Vol] 15 mg/dL 7-18 [facility] Stool enteric pathogen panel by probe and target amplification methodOrdered By: Maximilian Thomas on 01-29-2023 Gastrointestinal pathogens panel IVAN+probe (Stl) [facility] Thin prep Papanicolaou smear with manual screeningOrdered By: Maximilian Kitchen on 01-29-2023 Thin prep Papanicolaou smear with manual screening 0 5-15 [facility] Basophil percentageOrdered B y: Maximilian Kitchen on 01-28-2023 Basophil percentage 3.7 mg/dL 2.5-4.9 [facility] INR in Blood by Coagulation assayOrdered By: Maximilian Kitchen on 01-28-2023 INR Coag (Bld) [Relative time] 1.3 {INR} [facility] - Chemistry and C hemistry - challengeOrdered By: Maximilian Kitchen on 01-28-2023 Magnesium [Mass/Vol] 2.0 mg/dL 1.6-2.6 [facility] - CoagulationOrde red By: Maximilian Kitchen on 01-28-2023 PT Coag (PPP) [Time] 16.0 s 11.7-14.9 [facility] No Panel InformationOrdered By: Maximilian Kitchen on 01-28-2023 Methicillin-Resist S.aureus DNA PCR Negative Negative [facility] Troponin I High Sensitivity 4907 pg/mL 3.0-54.0 [facility] Comment on above: Critical Result(s) C alled at: 01:20:17 01/28/2023 by: CATRACHO Mccarty RN ICU. Results read back by same. Please Note: New Test Units and Gender Specific Reference Ranges. For more information see Policy Stat Procedure [place] High Sensitivity Troponin (TNIH) and attachments. Assessment of wrist artery p atency prior to arterial punctureOrdered By: Maximilian Kitchen on 01-27-2023 Arterial patency Wrist artery --pre arterial puncture Positive [facility] Base excessOrdered By: Maximilian Kitchen on 01-27-2023 Base excess Calc (BldV) [Moles/Vol] -2 mmol/L -2-2 [facility] Basophil percentageOrdered B y: Maximilian Kitchen on 01-27-2023 Basophil percentage 24.0 mmol/L 22-26 [facility] Basophils/100 WBC (Bld) 96 % 95-99 [facility] Basophil percentageOrdered B y: Darius Ryan on 01-27-2023 Lactate [Moles/Vol] 1.3 mmol/L 0.4-2.0 [facility] Bilirubin [Mass/Vol] 0.80 mg/dL 0.20-1.00 [facility] Comment on above: For patients on eltr ombopag therapy, use of Dimension [place] TBIL is not recommended. Protein [Mass/Vol] 6.9 g/dL 6.4-8.[address] [facility] Basophil percentage 0-5 SEEN /hpf 0-5 [facility] Bilirubin Test strip Ql (U)O rdered By: Darius Ryan on 01-27-2023 Bilirubin Ql (U) Negative Negative [facility] Blood manual differential co mment interpretation (narrative result)Ordered By: Darius Ryan on 01-27-2023 Manual differential comment Deon (Bld) [Interp] COMMENT [facility] Comment on above: LYMPHOPENIA. CO2 (BldA) [Partial pressure ]Ordered By: Maximilian Kitchen on 01-27-2023 CO2 (Bld) [Partial pressure] 42.5 mm[Hg] 35-45 [facility] Culture, urineOrdered By: Reymundo Ryan on 01-27-2023 Bacteria identified Cx Nom (U) Escherichia coli [facility] Direct bilirubinOrdered By: Darius Ryan on 01-27-2023 Bilirubin.direct [Mass/Vol] 0.19 mg/dL 0.00-0.30 [facility] Ketones Test strip Ql (U)Ord ered By: Darius Ryan on 01-27-2023 Ketones Ql (U) Negative Negative [facility] - Chemistry and C hemistry - challengeOrdered By: Darius Ryan on 01-27-2023 ALP [Catalytic activity/Vol] 92 U/L 45-117 [facility] ALT [Catalytic activity/Vol] 13 U/L 13-56 [facility] Globulin (S) [Mass/Vol] 3.6 g/dL 2.2-4.2 [facility] Lipase [Catalytic activity/Vol] 25 U/L 13-75 [facility] Comment on above: Please note:LIPASE r evised reference range effective 22. New Lipase methodology. Expected to produce lower values than the previous assay method. NEW Reference Range: 13 - 75 U/L Laboratory - Microbiology an d Antimicrobial susceptibilityOrdered By: Darius Ryan on 01-27-2023 Bacteria identified Cx Nom (Bld) No growth in 5 days. [facility] Mucus LM Ql (Urine sed)Order ed By: Darius Ryan on 01-27-2023 Mucus Ql (Urine sed) 0 SEEN /hpf [facility] Nitrite Test strip Ql (U)Ord ered By: Darius Ryan on 01-27-2023 Nitrite Ql (U) Negative Negative [facility] No Panel InformationOrdered By: Maximilian Kitchen on 01-27-2023 Bedside Blood Gas PEEP 10 [facility] Blood Gas Oxygen Percent 35.0 [facility] Blood Gas Respiration Rate 12 [facility] Blood Gas Sample Site R Radial [facility] Blood Gas Specimen Type ART [facility] Blood Gas Total CO2 25 mmol/L [facility] Blood Gas Vent Mode Not entered [facility] Oxygen Delivery Device BiPAP [facility] Oxygen (BldA) [Partial press ure]Ordered By: Maximilian Kitchen on 01-27-2023 Oxygen (Bld) [Partial pressure] 86 mmHG 75-100 [facility] Protein Test strip Ql (U)Ord ered By: Darius Ryan on 01-27-2023 Protein Ql (U) 30 mg/dl Negative [facility] Serum or plasma albumin brittny urement (mass/volume)Ordered By: Darius Ryan on 01-27-2023 Albumin [Mass/Vol] 3.3 g/dL 3.2-5.[address] [facility] Squamous epithelial cells de tection in urine sediment by light microscopyOrdered By: Darius Ryan on 01-27-2023 Epithelial cells.squamous LM Ql (Urine sed) 10-25 SEEN /hpf 5-10 [facility] Thin prep Papanicolaou smear with manual screeningOrdered By: Darius Ryan on 01-27-2023 Thin prep Papanicolaou smear with manual screening 10 U/L 15-37 [facility] Urine blood detectionOrdered By: Darius Ryan on 01-27-2023 RBC Ql (U) 50 /ul Negative [facility] RBC Ql (U) 0-5 SEEN /hpf 0-5 [facility] Urine clarityOrdered By: Bruce Ryan on 01-27-2023 Clarity (U) Sl. Cloudy Clear [facility] Urine color determinationOrd ered By: Darius Ryan on 01-27-2023 Color (U) Yellow Yellow [facility] Urine glucose detectionOrder ed By: Darius Ryan on 01-27-2023 Glucose Ql (U) 1000 mg/dl Normal [facility] Urine leukocyte esterase det ection by dipstickOrdered By: Darius Ryan on 01-27-2023 Leukocyte esterase Test strip Ql (U) 25 /ul Negative [facility] Urine pHOrdered By: Darius jennings on 01-27-2023 pH (U) 7.0 [pH] 5.0 - 8.0 [facility] Urine sediment bacteria coun t by microscopy (number/high power field)Ordered By: Darius Ryan on 01-27-2023 Bacteria LM.HPF (Urine sed) [#/Area] 2 /[HPF] None Seen [facility] Urine specific gravity measu rementOrdered By: Darius Ryan on 01-27-2023 Specific gravity (U) [Rel density] 1.005 1.002-1.030 [facility] Urobilinogen Auto test strip Ql (U)Ordered By: Darius Ryan on 01-27-2023 Urobilinogen Ql (U) Normal mg/dl Normal [facility] pH measurementOrdered By: Reymundo Kitchen on 01-27-2023 pH (Unsp spec) 7.36 [pH] 7.35-7.45 [facility] Basophil percentageOrdered B y: Richie Heredia on 01-25-2023 Bilirubin [Mass/Vol] 0.30 mg/dL 0.20-1.00 [facility] Comment on above: For patients on eltr ombopag therapy, use of Dimension [place] TBIL is not recommended. Chloride [Moles/Vol] 104 mmol/L 98-107 [facility] Cholesterol [Mass/Vol] 142 mg/dL <200 [facility] Comment on above: <200 mg/dL Desirable 200-240 mg/dL Borderline >240 mg/dL High Risk Glucose [Mass/Vol] 83 mg/dL 74-[address] [facility] Potassium [Moles/Vol] 4.6 mmol/L 3.5-5.1 [facility] Protein [Mass/Vol] 7.0 g/dL 6.4-8.[address] [facility] Sodium [Moles/Vol] 139 mmol/L 136-[address] [facility] Triglyceride [Mass/Vol] 173 mg/dL <199 [facility] Comment on above: The drugs N-Acetylcy steine and Metamizole may falsely depress this assay.Serum Triglycerides Reference Interval Normal <150 mg/dL Borderline high 150 - 199 mg/dL High 200 - 499 mg/dL Very High > or = 500 mg/dL WBC (Bld) [#/Vol] 7.7 10*3/uL 4.4-11.[address] [facility] Blood erythrocytes count (nu mber/volume)Ordered By: Richie Heredia on 01-25-2023 RBC (Bld) [#/Vol] 4.39 10*6/uL 4.2-5.4 [facility] Blood hemoglobin measurement (mass/volume)Ordered By: Richie Heredia on 01-25-2023 Hemoglobin (Bld) [Mass/Vol] 13.5 g/dL 12.0-15.0 [facility] Blood platelet mean volumeOr dered By: Richie Heredia on 01-25-2023 Platelet mean volume (Bld) [Entitic vol] 12.4 fL 6.2-12.0 [facility] Determination of erythrocyte mean corpuscular volume (MCV)Ordered By: Richie Heredia on 01-25-2023 MCV (RBC) [Entitic vol] 97.9 fL 81-99 [facility] Hematocrit Auto (Bld) [Volum e fraction]Ordered By: Richie Heredia on 01-25-2023 Hematocrit (Bld) [Volume fraction] 43.0 % 37-47 [facility] - Chemistry and C hemistry - challengeOrdered By: Richie Heredia on 01-25-2023 ALP [Catalytic activity/Vol] 84 U/L 45-117 [facility] ALT [Catalytic activity/Vol] 11 U/L 13-56 [facility] CO2 [Moles/Vol] 31.0 mmol/L 21.0-32.0 [facility] Cobalamin (Vitamin B12) [Mass/Vol] 199 pg/mL 211-911 [facility] Free T4 [Mass/Vol] 0.95 ng/dL 0.76-1.[address] [facility] Globulin (S) [Mass/Vol] 3.6 g/dL 2.2-4.2 [facility] Urea nitrogen/Creatinine [Mass ratio] 16.5 mg/mg 10-20 [facility] - Hematology and Cell countsOrdered By: Richie Heredia on 01-25-2023 Erythrocyte distribution width (RBC) [Entitic vol] 55.4 fL 35.1-43.9 [facility] Erythrocyte distribution width (RBC) [Ratio] 15.3 % 11.6-14.6 [facility] MCH (RBC) [Entitic mass] 30.8 pg 27.0-32.0 [facility] MCHC Auto (RBC) [Mass/Vol]Or dered By: Richie Heredia on 01-25-2023 MCHC (RBC) [Mass/Vol] 31.4 g/dL 32-36 [facility] No Panel InformationOrdered By: Richie Heredia on 01-25-2023 Estimated GFR (MDRD) Amer 64 mL/min >60 [facility] Comment on above: GFR Calc Estimated GFR (MDRD) Non-Af Amer 53 mL/min >60 [facility] Comment on above: Non- GFR Calc Thyroid Stimulating Hormone (TSH) 4.44 uIU/mL 0.358-3.74 [facility] Platelets bldOrdered By: Twyla Heredia on 01-25-2023 Platelets (Bld) [#/Vol] 246 10*3/uL 150-450 [facility] Serum or plasma albumin brittny urement (mass/volume)Ordered By: Richie Heredia on 01-25-2023 Albumin [Mass/Vol] 3.4 g/dL 3.2-5.[address] [facility] Serum or plasma albumin/glob ulin mass ratioOrdered By: Richie Heredia on 01-25-2023 Albumin/Globulin [Mass ratio] 0.9 {ratio} 0.9-2.4 [facility] Serum or plasma calcium brittny urement (mass/volume)Ordered By: Richie Heredia on 01-25-2023 Calcium [Mass/Vol] 9.2 mg/dL 8.5-10.[address] [facility] Serum or plasma cholesterol in HDL measurement (mass/volume)Ordered By: Richie Heredia on 01-25-2023 Cholesterol in HDL [Mass/Vol] 35 mg/dL >40 [facility] Comment on above: The drugs N-Acetylcy steine and Metamizole may falsely depress this assay. Reference Range HDL <40 mg/dL Low HDL Cholesterol HDL >or= 60 mg/dL High HDL Cholesterol Serum or plasma cholesterol in VLDL measurement (mass/volume)Ordered By: Richie Heredia on 01-25-2023 Cholesterol in VLDL [Mass/Vol] 35 mg/dL 5-40 [facility] Serum or plasma creatinine m easurement (mass/volume)Ordered By: Richie Heredia on 01-25-2023 Creatinine [Mass/Vol] 1.09 mg/dL 0.55-1.02 [facility] Comment on above: The validity of the calculated GFR & GFRAA in patients over 70 years has not been determined. Clinical correlation is essential. Serum or plasma low density lipoprotein (LDL) cholesterol measurement (mass/volume)Ordered By: Richie Heredia on 01-25-2023 Cholesterol in LDL [Mass/Vol] 72 mg/dL 0-130 [facility] Serum or plasma urea nitroge n measurement (mass/volume)Ordered By: Richie Heredia on 01-25-2023 Urea nitrogen [Mass/Vol] 18 mg/dL 7-18 [facility] Thin prep Papanicolaou smear with manual screeningOrdered By: Richie Heredia on 01-25-2023 Thin prep Papanicolaou smear with manual screening 9 U/L 15-37 [facility] Thin prep Papanicolaou smear with manual screening 4 5-15 [facility] MA MAMMOGRAM SCREENING BILAT ERAL W/TOMOon 10-27-2022 MA MAMMOGRAM SCREENING BILATERAL W/GLENN ORIGINAL FROM: JULIET SMITH [address], [place] [address] PROCEDURE FOR: [address] [place] [address] Home: PID#: [id number] Exam#: [id number] : 1950 Age: 72 TO: RICHIE [address] [place] [address] Fax: NO FAX EXAMINATION: SCREENING DIGITAL BILATERAL [...] 10/27/2022 10:12:14 AM Ordering Provider: RICHIE HEREDIA Distance Education Director: TANG ERNANDEZ RT (R) (M) (CT) letter sent: Normal BI-RADS 1 and 2 Mammogram BI-RADS: 2 Benign Normal [facility] ([place]) Absolute lymphocyte countOrd ered By: Darius Encarnacionehne on 10-20-2022 Lymphocytes Auto (Unsp spec) [#/Vol] 1.30 10*3/uL 0.83-4.51 [facility] Basophil percentageOrdered B y: Darius Ryan on 10-20-2022 Basophils/100 WBC (Bld) 0.4 % 0-1 [facility] Eosinophils/100 WBC (Bld) 0.4 % 0-5 [facility] Neutrophils (Bld) [#/Vol] 11.1 10*3/uL 2.0-7.7 [facility] Neutrophils/100 WBC (Bld) 81.1 % 47-70 [facility] WBC (Bld) [#/Vol] 13.7 10*3/uL 4.4-11.0 [facility] Bilirubin [Mass/Vol] 0.70 mg/dL 0.20-1.00 [facility] Comment on above: For patients on eltr ombopag therapy, use of Dimension [place] TBIL is not recommended. Chloride [Moles/Vol] 101 mmol/L 98-107 [facility] Glucose [Mass/Vol] 150 mg/dL 74-[address] [facility] Comment on above: Fasting Glucose resu lt greater than or equal to 126 mg/dL suggests DIABETES MELLITUS per A.D.A. criteria. Potassium [Moles/Vol] 4.8 mmol/L 3.5-5.1 [facility] Comment on above: Moderate Hemolysis, Result may be falsely increased. Protein [Mass/Vol] 7.3 g/dL 6.4-8.[address] [facility] Sodium [Moles/Vol] 132 mmol/L 136-[address] [facility] Blood erythrocytes count (nu mber/volume)Ordered By: Darius Ryan on 10-20-2022 RBC (Bld) [#/Vol] 4.46 10*6/uL 4.2-5.4 [facility] Blood hemoglobin measurement (mass/volume)Ordered By: Darius Ryan on 10-20-2022 Hemoglobin (Bld) [Mass/Vol] 13.6 g/dL 12.0-15.0 [facility] Blood lymphocytes/100 leukoc ytesOrdered By: Darius Ryan on 10-20-2022 Lymphocytes/100 WBC (Bld) 9.5 % 19-41 [facility] Blood monocytes/100 leukocyt esOrdered By: Darius Ryan on 10-20-2022 Monocytes/100 WBC (Bld) 7.9 % 0-10 [facility] Blood platelet mean volumeOr dered By: Darius Ryan on 10-20-2022 Platelet mean volume (Bld) [Entitic vol] 11.1 fL 6.2-12.0 [facility] Determination of erythrocyte mean corpuscular volume (MCV)Ordered By: Darius Ryan on 10-20-2022 MCV (RBC) [Entitic vol] 97.3 fL 81-99 [facility] Hematocrit Auto (Bld) [Volum e fraction]Ordered By: Darius Ryan on 10-20-2022 Hematocrit (Bld) [Volume fraction] 43.4 % 37-47 [facility] - Chemistry and C hemistry - challengeOrdered By: Darius Ryan on 10-20-2022 ALP [Catalytic activity/Vol] 70 U/L 45-117 [facility] ALT [Catalytic activity/Vol] 16 U/L 13-56 [facility] CO2 [Moles/Vol] 21.0 mmol/L 21.0-32.0 [facility] Globulin (S) [Mass/Vol] 4.4 g/dL 2.2-4.2 [facility] Urea nitrogen/Creatinine [Mass ratio] 15.2 mg/mg 10-20 [facility] - Hematology and Cell countsOrdered By: Darius Ryan on 10-20-2022 Erythrocyte distribution width (RBC) [Entitic vol] 47.7 fL 35.1-43.9 [facility] Erythrocyte distribution width (RBC) [Ratio] 13.2 % 11.6-14.6 [facility] Immature granulocytes/100 WBC (Bld) 0.700 % 0.0-0.9 [facility] Comment on above: IG% - Immature Granu locytes (promyelocytes, myelocytes and metamyelocytes) > 1% indicates that a LEFT SHIFT is Present. MCH (RBC) [Entitic mass] 30.5 pg 27.0-32.0 [facility] Nucleated RBC/100 WBC (Bld) [Ratio] 0 % 0-5 [facility] MCHC Auto (RBC) [Mass/Vol]Or dered By: Darius Ryan on 10-20-2022 MCHC (RBC) [Mass/Vol] 31.3 g/dL 32-36 [facility] No Panel InformationOrdered By: Darius Ryan on 10-20-2022 Estimated GFR (MDRD) Amer 62 mL/min >60 [facility] Comment on above: GFR Calc Estimated GFR (MDRD) Non-Af Amer 51 mL/min >60 [facility] Comment on above: Non- GFR Calc Troponin I High Sensitivity 17 pg/mL 3.0-54.0 [facility] Comment on above: Please Note: New Alanis t Units and Gender Specific Reference Ranges. For more information see Policy Stat Procedure [place] High Sensitivity Troponin (TNIH) and attachments. Ova and parasitesOrdered By: Darius Ryan on 10-20-2022 Ova and parasites identified LM Nom (Unsp spec) [facility] Platelets bldOrdered By: Bruce Ryan on 10-20-2022 Platelets (Bld) [#/Vol] 370 10*3/uL 150-450 [facility] Serum or plasma albumin brittny urement (mass/volume)Ordered By: Darius Ryan on 10-20-2022 Albumin [Mass/Vol] 2.9 g/dL 3.2-5.[address] [facility] Serum or plasma albumin/glob ulin mass ratioOrdered By: Darius Ryan on 10-20-2022 Albumin/Globulin [Mass ratio] 0.7 {ratio} 0.9-2.4 [facility] Serum or plasma calcium brittny urement (mass/volume)Ordered By: Darius Ryan on 10-20-2022 Calcium [Mass/Vol] 9.5 mg/dL 8.5-10.[address] [facility] Serum or plasma creatinine m easurement (mass/volume)Ordered By: Darius Ryan on 10-20-2022 Creatinine [Mass/Vol] 1.12 mg/dL 0.55-1.02 [facility] Comment on above: The validity of the calculated GFR & GFRAA in patients over 70 years has not been determined. Clinical correlation is essential. Serum or plasma urea nitroge n measurement (mass/volume)Ordered By: Darius Ryan on 10-20-2022 Urea nitrogen [Mass/Vol] 17 mg/dL 7-18 [facility] Stool lactoferrin detection by immunoassayOrdered By: Darisu Ryan on 10-20-2022 Lactoferrin IA Ql (Stl) [facility] Thin prep Papanicolaou smear with manual screeningOrdered By: Darius Ryan on 10-20-2022 Thin prep Papanicolaou smear with manual screening 21 U/L 15-37 [facility] Comment on above: Moderate Hemolysis, Result may be falsely increased. Thin prep Papanicolaou smear with manual screening 10 5-15 [facility] Basophil percentageOrdered B y: Richie Heredia on 07-07-2022 Bilirubin [Mass/Vol] 0.50 mg/dL 0.20-1.00 [facility] Comment on above: For patients on eltr ombopag therapy, use of Dimension [place] TBIL is not recommended. Chloride [Moles/Vol] 104 mmol/L 98-107 [facility] Glucose [Mass/Vol] 161 mg/dL 74-[address] [facility] Comment on above: Fasting Glucose resu lt greater than or equal to 126 mg/dL suggests DIABETES MELLITUS per A.D.A. criteria. Potassium [Moles/Vol] 4.6 mmol/L 3.5-5.1 [facility] Protein [Mass/Vol] 7.0 g/dL 6.4-8.[address] [facility] Sodium [Moles/Vol] 138 mmol/L 136-[address] [facility] WBC (Bld) [#/Vol] 11.8 10*3/uL 4.4-11.0 [facility] Blood erythrocytes count (nu mber/volume)Ordered By: Richie Heredia on 07-07-2022 RBC (Bld) [#/Vol] 4.51 10*6/uL 4.2-5.4 [facility] Blood hemoglobin measurement (mass/volume)Ordered By: Richie Heredia on 07-07-2022 Hemoglobin (Bld) [Mass/Vol] 14.2 g/dL 12.0-15.0 [facility] Blood platelet mean volumeOr dered By: Richie Heredia on 07-07-2022 Platelet mean volume (Bld) [Entitic vol] 11.1 fL 6.2-12.0 [facility] Determination of erythrocyte mean corpuscular volume (MCV)Ordered By: Richie Heredia on 07-07-2022 MCV (RBC) [Entitic vol] 97.3 fL 81-99 [facility] Hematocrit Auto (Bld) [Volum e fraction]Ordered By: Richie Heredia on 07-07-2022 Hematocrit (Bld) [Volume fraction] 43.9 % 37-47 [facility] Laboratory - Chemistry and C hemistry - challengeOrdered By: Richie Heredia on 07-07-2022 ALP [Catalytic activity/Vol] 80 U/L 45-117 [facility] ALT [Catalytic activity/Vol] 24 U/L 13-56 [facility] CO2 [Moles/Vol] 28.0 mmol/L 21.0-32.0 [facility] Free T4 [Mass/Vol] 0.96 ng/dL 0.76-1.[address] [facility] Globulin (S) [Mass/Vol] 3.5 g/dL 2.2-4.2 [facility] Natriuretic peptide B (Bld) [Mass/Vol] 76.7 pg/mL 0-100 [facility] Urea nitrogen/Creatinine [Mass ratio] 25.1 mg/mg 10-20 [facility] - Hematology and Cell countsOrdered By: Richie Heredia on 07-07-2022 Erythrocyte distribution width (RBC) [Entitic vol] 48.2 fL 35.1-43.9 [facility] Erythrocyte distribution width (RBC) [Ratio] 13.5 % 11.6-14.6 [facility] MCH (RBC) [Entitic mass] 31.5 pg 27.0-32.0 [facility] MCHC Auto (RBC) [Mass/Vol]Or dered By: Richie Heredia on 07-07-2022 MCHC (RBC) [Mass/Vol] 32.3 g/dL 32-36 [facility] No Panel InformationOrdered By: Richie Heredia on 07-07-2022 Estimated GFR (MDRD) Amer 78 mL/min >60 [facility] Comment on above: GFR Calc Estimated GFR (MDRD) Non-Af Amer 64 mL/min >60 [facility] Comment on above: Non- GFR Calc Thyroid Stimulating Hormone (TSH) 2.44 uIU/mL 0.358-3.74 [facility] Platelets bldOrdered By: Twyla Heredia on 07-07-2022 Platelets (Bld) [#/Vol] 263 10*3/uL 150-450 [facility] Serum or plasma albumin brittny urement (mass/volume)Ordered By: Richie Heredia on 07-07-2022 Albumin [Mass/Vol] 3.5 g/dL 3.2-5.[address] [facility] Serum or plasma albumin/glob ulin mass ratioOrdered By: Richie Heredia on 07-07-2022 Albumin/Globulin [Mass ratio] 1.0 {ratio} 0.9-2.4 [facility] Serum or plasma calcium brittny urement (mass/volume)Ordered By: Richie Heredia on 07-07-2022 Calcium [Mass/Vol] 9.1 mg/dL 8.5-10.[address] [facility] Serum or plasma creatinine m easurement (mass/volume)Ordered By: Richie Heredia on 07-07-2022 Creatinine [Mass/Vol] 0.92 mg/dL 0.55-1.02 [facility] Comment on above: The validity of the calculated GFR & GFRAA in patients over 70 years has not been determined. Clinical correlation is essential. Serum or plasma urea nitroge n measurement (mass/volume)Ordered By: Richie Heredia on 07-07-2022 Urea nitrogen [Mass/Vol] 23 mg/dL 7-18 [facility] Thin prep Papanicolaou smear with manual screeningOrdered By: Richie Heredia on 07-07-2022 Thin prep Papanicolaou smear with manual screening 14 U/L 15-37 [facility] Thin prep Papanicolaou smear with manual screening 6 5-15 [facility] Whole blood hemoglobin A1c/t otal hemoglobin ratio (mass fraction)Ordered By: Richie Heredia on 07-07-2022 HbA1c (Bld) [Mass fraction] 6.5 % 3.8-5.6 [facility] Comment on above: Normal < 5.7 % Predi abetic 5.7 - 6.4 % Diabetic >or= 6.5 % Please note range changes. Basophil percentageOrdered B y: Dr. Heredia on 03-03-2022 Bilirubin [Mass/Vol] 0.30 mg/dL 0.20-1.00 [facility] Comment on above: For patients on eltr ombopag therapy, use of Dimension [place] TBIL is not recommended. Chloride [Moles/Vol] 103 mmol/L 98-107 [facility] Cholesterol [Mass/Vol] 170 mg/dL <200 [facility] Comment on above: <200 mg/dL Desirable 200-240 mg/dL Borderline >240 mg/dL High Risk Glucose [Mass/Vol] 153 mg/dL 74-[address] [facility] Comment on above: Fasting Glucose resu lt greater than or equal to 126 mg/dL suggests DIABETES MELLITUS per A.D.A. criteria. Potassium [Moles/Vol] 4.4 mmol/L 3.5-5.1 [facility] Protein [Mass/Vol] 6.3 g/dL 6.4-8.[address] [facility] Sodium [Moles/Vol] 138 mmol/L 136-[address] [facility] Triglyceride [Mass/Vol] 128 mg/dL <199 [facility] Comment on above: The drugs N-Acetylcy steine and Metamizole may falsely depress this assay.Serum Triglycerides Reference Interval Normal <150 mg/dL Borderline high 150 - 199 mg/dL High 200 - 499 mg/dL Very High > or = 500 mg/dL WBC (Bld) [#/Vol] 6.8 10*3/uL 4.4-11.[address] [facility] Bilirubin Test strip Ql (U)O rdered By: Dr. Heredia on 03-03-2022 Bilirubin Ql (U) Negative Negative [facility] Blood erythrocytes count (nu mber/volume)Ordered By: Dr. Heredia on 03-03-2022 RBC (Bld) [#/Vol] 4.39 10*6/uL 4.2-5.4 [facility] Blood hemoglobin measurement (mass/volume)Ordered By: Dr. Heredia on 03-03-2022 Hemoglobin (Bld) [Mass/Vol] 13.5 g/dL 12.0-15.0 [facility] Blood platelet mean volumeOr dered By: Dr. Heredia on 03-03-2022 Platelet mean volume (Bld) [Entitic vol] 11.7 fL 6.2-12.0 [facility] Determination of erythrocyte mean corpuscular volume (MCV)Ordered By: Dr. Heredia on 03-03-2022 MCV (RBC) [Entitic vol] 96.4 fL 81-99 [facility] Hematocrit Auto (Bld) [Volum e fraction]Ordered By: Dr. Heredia on 03-03-2022 Hematocrit (Bld) [Volume fraction] 42.3 % 37-47 [facility] Ketones Test strip Ql (U)Ord ered By: Dr. Heredia on 03-03-2022 Ketones Ql (U) Negative Negative [facility] Laboratory - Chemistry and C hemistry - challengeOrdered By: Dr. Heredia on 03-03-2022 ALP [Catalytic activity/Vol] 68 U/L 45-117 [facility] ALT [Catalytic activity/Vol] 20 U/L 13-56 [facility] CO2 [Moles/Vol] 28.0 mmol/L 21.0-32.0 [facility] Free T4 [Mass/Vol] 1.00 ng/dL 0.76-1.[address] [facility] Globulin (S) [Mass/Vol] 3.0 g/dL 2.2-4.2 [facility] Urea nitrogen/Creatinine [Mass ratio] 34.0 mg/mg 10-20 [facility] - Hematology and Cell countsOrdered By: Dr. Heredia on 03-03-2022 Erythrocyte distribution width (RBC) [Entitic vol] 51.1 fL 35.1-43.9 [facility] Erythrocyte distribution width (RBC) [Ratio] 14.3 % 11.6-14.6 [facility] MCH (RBC) [Entitic mass] 30.8 pg 27.0-32.0 [facility] MCHC Auto (RBC) [Mass/Vol]Or dered By: Dr. Heredia on 03-03-2022 MCHC (RBC) [Mass/Vol] 31.9 g/dL 32-36 [facility] Nitrite Test strip Ql (U)Ord ered By: Dr. Heredia on 03-03-2022 Nitrite Ql (U) Negative Negative [facility] No Panel InformationOrdered By: Dr. Heredia on 03-03-2022 Estimated GFR (MDRD) Amer 100 mL/min >60 [facility] Comment on above: GFR Calc Estimated GFR (MDRD) Non-Af Amer 83 mL/min >60 [facility] Comment on above: Non- GFR Calc Thyroid Stimulating Hormone (TSH) 1.74 uIU/mL 0.358-3.74 [facility] Platelets bldOrdered By: Dr. Heredia on 03-03-2022 Platelets (Bld) [#/Vol] 225 10*3/uL 150-450 [facility] Protein Test strip Ql (U)Ord ered By: Dr. Heredia on 03-03-2022 Protein Ql (U) Negative Negative [facility] Serum or plasma albumin brittny urement (mass/volume)Ordered By: Dr. Heredia on 03-03-2022 Albumin [Mass/Vol] 3.3 g/dL 3.2-5.[address] [facility] Serum or plasma albumin/glob ulin mass ratioOrdered By: Dr. Heredia on 03-03-2022 Albumin/Globulin [Mass ratio] 1.1 {ratio} 0.9-2.4 [facility] Serum or plasma calcium brittny urement (mass/volume)Ordered By: Dr. Heredia on 03-03-2022 Calcium [Mass/Vol] 8.8 mg/dL 8.5-10.[address] [facility] Serum or plasma cholesterol in HDL measurement (mass/volume)Ordered By: Dr. Heredia on 03-03-2022 Cholesterol in HDL [Mass/Vol] 44 mg/dL >40 [facility] Comment on above: The drugs N-Acetylcy steine and Metamizole may falsely depress this assay. Reference Range HDL <40 mg/dL Low HDL Cholesterol HDL >or= 60 mg/dL High HDL Cholesterol Serum or plasma cholesterol in VLDL measurement (mass/volume)Ordered By: Dr. Heredia on 03-03-2022 Cholesterol in VLDL [Mass/Vol] 26 mg/dL 5-40 [facility] Serum or plasma creatinine m easurement (mass/volume)Ordered By: Dr. Heredia on 03-03-2022 Creatinine [Mass/Vol] 0.74 mg/dL 0.55-1.02 [facility] Comment on above: The validity of the calculated GFR & GFRAA in patients over 70 years has not been determined. Clinical correlation is essential. Serum or plasma low density lipoprotein (LDL) cholesterol measurement (mass/volume)Ordered By: Dr. Heredia on 03-03-2022 Cholesterol in LDL [Mass/Vol] 100 mg/dL 0-130 [facility] Serum or plasma urea nitroge n measurement (mass/volume)Ordered By: Dr. Heredia on 03-03-2022 Urea nitrogen [Mass/Vol] 25 mg/dL 7-18 [facility] Thin prep Papanicolaou smear with manual screeningOrdered By: Dr. Heredia on 03-03-2022 Thin prep Papanicolaou smear with manual screening 12 U/L 15-37 [facility] Thin prep Papanicolaou smear with manual screening 7 5-15 [facility] Thin prep Papanicolaou smear with manual screening 26.7 mg/L NO RANGE EST. [facility] Urine blood detectionOrdered By: Dr. Heredia on 03-03-2022 RBC Ql (U) Negative Negative [facility] Urine clarityOrdered By: Dr. Heredia on 03-03-2022 Clarity (U) Clear Clear [facility] Urine color determinationOrd ered By: Dr. Heredia on 03-03-2022 Color (U) Yellow Yellow [facility] Urine glucose detectionOrder ed By: Dr. Heredia on 03-03-2022 Glucose Ql (U) Normal mg/dl Normal [facility] Urine leukocyte esterase det ection by dipstickOrdered By: Dr. Heredia on 03-03-2022 Leukocyte esterase Test strip Ql (U) Negative Negative [facility] Urine pHOrdered By: Dr. Mayco charlton on 03-03-2022 pH (U) 5.0 [pH] 5.0 - 8.0 [facility] Urine specific gravity measu rementOrdered By: Dr. Heredia on 03-03-2022 Specific gravity (U) [Rel density] 1.020 1.002-1.030 [facility] Urobilinogen Auto test strip Ql (U)Ordered By: Dr. Heredia on 03-03-2022 Urobilinogen Ql (U) Normal mg/dl Normal [facility] Whole blood hemoglobin A1c/t otal hemoglobin ratio (mass fraction)Ordered By: Dr. Heredia on 03-03-2022 HbA1c (Bld) [Mass fraction] 6.6 % 3.8-5.6 [facility] Comment on above: Normal < 5.7 % Predi abetic 5.7 - 6.4 % Diabetic >or= 6.5 % Please note range changes. CNPLorin 09-10-2021 CNPN Telephone (GENAdaptiveMobileS) [address] ([id number]) 1950 F Date Time Provider Department 09/10/21 NAYE BETTS During your visit today, we recorded the following information about you: Marium Borrero 09/10/2021 9:45 AM Signed 10/07 colon/egd lodi Demetrius Mccarty 10/01/2021 9:25 AM Signed Cardiac clearance obtained and scanned into EPIC Marium Gissell 10/06/2021 8:19 AM Signed 1st attempt to contact patient to inform clearance was not met and procedure tomorrow in [place] with Alpesh had to be cancelled until [...] Encounter Status:Closed by MARIUM BORRERO on 10/30/21 [facility] CNOVon 09-09-2021 CNOV Office Visit (GENSWS) [address] ([id number]) 1950 F Date Time Provider Department 09/09/21 [...] for her chronic medical conditions, and with [facility] for her heart issues, Dr. [...] entered by the nurse and reviewed by or Nursing Notes: Marium Borrero 09/09/2021 2:57 PM [...] included)... Normal [facility] [place] Sawyer 09-09-2021 [facility] Telephone ([email or web address].csS) [address] ([id number]) 1950 F Date Time Provider Department 09/09/21 MARY THOMAS During your visit today, we recorded the following information about you: Marium Borrero 09/09/2021 2:47 PM Signed 09/23 [facility] Mar[facility] Borrero 09/09/2021 2:50 PM Signed Addended by: MARIUM BORRERO on: 09/09/2021 02:50 PM Modules accepted: Orders Marium Borrero 09/09/2021 2:50 PM Signed ENTERED OP TIME Marium Borrero 09/09/2021 2:53 PM Signed Patient is needing pulmonary and cardiac clearance Patient sees Dr. Montiel at the [facility] and sees Dr. Hurley at [facility] Patient is scheduled for both upper and lower scope in [place] with Dr. Betts on 09/23 Demetrius Mccarty 09/11/2021 9:08 AM Signed Clearance has been requested, please check scanned documents Demetrius Mccarty 10/01/2021 9:25 AM Signed Cardiac clearance obtained and scanned into Epic Demetrius Mccarty 11/05/2021 4:14 PM Signed Pulmonary clearance obtained and scanned into Epic Marium Borrero 11/06/2021 12:01 PM Signed Called patient to schedule upper and lower scopes with Dr. Betts in [place] since clearance has been met. Per patient [...] use [Z87.891] Order(s):COLONOSCOPY SCREENING [GI51] Order #: [id number] FUTURE EGD DIAGNOSTIC [GI9] Order #: [id number] FUTURE Prescriptions as of 11/07/2021 - gabapentin [...] 09/09/21 Normal [facility] [place] CNCOon 07-25-2021 CNCO Letter Text Normal [facility] [place] Absolute lymphocyte counton 05-23-2021 Lymphocytes Auto (Unsp spec) [#/Vol] 1.83 10*3/uL 0.83-4.51 [facility] Work Phone: Basophil percentageon 2021 Basophils/100 WBC (Bld) 0.4 % 0-1 [facility] Work Phone: Chloride [Moles/Vol] 108 mmol/L 98-107 [facility] Work Phone: Eosinophils/100 WBC (Bld) 1.2 % 0-5 [facility] Work Phone: Glucose [Mass/Vol] 170 mg/dL 74-[address] [facility] Work Phone: Comment on above: Fasting Glucose resu lt greater than or equal to 126 mg/dL suggests DIABETES MELLITUS per A.D.A. criteria. Neutrophils (Bld) [#/Vol] 4.8 10*3/uL 2.0-7.7 [facility] Work Phone: Neutrophils/100 WBC (Bld) 64.7 % 47-70 [facility] Work Phone: Potassium [Moles/Vol] 3.9 mmol/L 3.5-5.1 [facility] Work Phone: Sodium [Moles/Vol] 139 mmol/L 136-[address] [facility] Work Phone: WBC (Bld) [#/Vol] 7.4 10*3/uL 4.4-11.[address] [facility] Work Phone: Blood erythrocytes count (nu mber/volume)on 04-01-2022 RBC (Bld) [#/Vol] 4.88 10*6/uL 4.2-5.4 [facility] Work Phone: Blood hemoglobin measurement (mass/volume)on 05-23-2021 Hemoglobin (Bld) [Mass/Vol] 15.1 g/dL 12.0-15.0 [facility] Work Phone: Blood lymphocytes/100 leukoc yteson 05-23-2021 Lymphocytes/100 WBC (Bld) 24.8 % 19-41 [facility] Work Phone: [phone] Blood monocytes/100 leukocyt eson 05-23-2021 Monocytes/100 WBC (Bld) 8.4 % 0-10 [facility] Work Phone: Blood platelet mean volumeon 05-23-2021 Platelet mean volume (Bld) [Entitic vol] 11.8 fL 6.2-12.0 [facility] Work Phone: Determination of erythrocyte mean corpuscular volume (MCV)on 05-23-2021 MCV (RBC) [Entitic vol] 94.9 fL 81-99 [facility] Work Phone: Hematocrit Auto (Bld) [Volum e fraction]on 05-23-2021 Hematocrit (Bld) [Volume fraction] 46.3 % 37-47 [facility] Work Phone: Laboratory - Chemistry and C hemistry - challengeon 05-23-2021 CO2 [Moles/Vol] 26.0 mmol/L 21.0-32.0 [facility] Work Phone: Urea nitrogen/Creatinine [Mass ratio] 7.7 mg/mg 10-20 [facility] Work Phone: [phone] Laboratory - Hematology and Cell countson 05-23-2021 Erythrocyte distribution width (RBC) [Entitic vol] 47.0 fL 35.1-43.9 [facility] Work Phone: [phone] Erythrocyte distribution width (RBC) [Ratio] 13.2 % 11.6-14.6 [facility] Work Phone: Immature granulocytes/100 WBC (Bld) 0.500 % 0.0-0.9 [facility] Work Phone: [phone] Comment on above: IG% - Immature Granu locytes (promyelocytes, myelocytes and metamyelocytes) > 1% indicates that a LEFT SHIFT is Present. MCH (RBC) [Entitic mass] 30.9 pg 27.0-32.0 [facility] Work Phone: [phone] Nucleated RBC/100 WBC (Bld) [Ratio] 0 % 0-5 [facility] Work Phone: [phone] MCHC Auto (RBC) [Mass/Vol]on 05-23-2021 MCHC (RBC) [Mass/Vol] 32.6 g/dL 32-36 [facility] Work Phone: [phone] No Panel Informationon 05-23 Estimated Creatinine Clearance Calc 36.67 ml/min [facility] Work Phone: [phone] Estimated GFR (MDRD) Amer 67 mL/min >60 [facility] Work Phone: [phone] Comment on above: GFR Calc Estimated GFR (MDRD) Non-Af Amer 56 mL/min >60 [facility] Work Phone: [phone] Comment on above: Non- GFR Calc Troponin I High Sensitivity 8 pg/mL 3.0-54.0 [facility] Work Phone: Comment on above: Please Note: New Alanis t Units and Gender Specific Reference Ranges. For more information see Policy Stat Procedure [place] High Sensitivity Troponin (TNIH) and attachments. Platelets bldon 05-23-2021 Platelets (Bld) [#/Vol] 291 10*3/uL 150-450 [facility] Work Phone: [phone] Serum or plasma calcium brittny urement (mass/volume)on 05-23-2021 Calcium [Mass/Vol] 8.9 mg/dL 8.5-10.[address] [facility] Work Phone: [phone] Serum or plasma creatinine m easurement (mass/volume)on 05-23-2021 Creatinine [Mass/Vol] 1.04 mg/dL 0.55-1.02 [facility] Work Phone: Comment on above: The validity of the calculated GFR & GFRAA in patients over 70 years has not been determined. Clinical correlation is essential. Serum or plasma urea nitroge n measurement (mass/volume)on 05-23-2021 Urea nitrogen [Mass/Vol] 8 mg/dL 7-18 [facility] Work Phone: Thin prep Papanicolaou smear with manual screeningon 05-23-2021 Thin prep Papanicolaou smear with manual screening 5 5-15 [facility] Work Phone: LABORATORYOrdered By: Gay Nash on [...] definite cause of disease. Laboratories within the [place] and its territories are required to report all positive results to the appropriate public health authorities.Detectio n of analyte target(s) does not imply that the corresponding virus(es) are infectious or are the causative agents for clinical symptoms.There is a risk of false positive values resulting from cross-contamination by target organisms, their nucleic acids or amplified product, or from non-specific signals in the assay.BidR[employer]or SARS-CoV-2 Assay is a Real-Time reverse-transcriptas e [...] [facility] CONVERTED ORDERING PROVIDER Ordering Provider: [facility] Otheron 02-10-2000 CONVERTED ELECTRONIC SIGNATURE ANA WARE M.D., PATHOLOGIST (Electronic signature on file) Final Signed Out: 02/10/2000 15:38 [facility] CONVERTED FINAL DIAGNOSIS TISSUE FROM RIGHT WRIST, EXCISION - 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 [facility] CONVERTED ORDERING PROVIDER Ordering Provider: [facility] Vital Signs Date Time Vital Sign Value Performing Clinician Facility 06-01-2024 14:23-0400 Body temperature 97.2 [degF] Dr. Richie Heredia DO Work Phone: [facility] 06-01-2024 14:23-0400 Diastolic blood pressure 59 mm[Hg] Dr. Richie Heredia DO Work Phone: [facility] 06-01-2024 14:23-0400 Heart rate 94 /min Dr. Richie Heredia DO Work Phone: [facility] 06-01-2024 14:23-0400 Respiratory rate 26 /min Dr. Richie Heredia DO Work Phone: [facility] 06-01-2024 14:23-0400 SaO2% (BldA) [Mass fraction] 95 % Dr. Richie Heredia DO Work Phone: [facility] 06-01-2024 14:23-0400 Systolic blood pressure 137 mm[Hg] Dr. Richie Heredia DO Work Phone: [facility] 06-01-2024 12:17-0400 Inhaled oxygen flow rate 3 L/min Dr. Richie Heredia DO Work Phone: [facility] 06-01-2024 10:45-0400 Body height 149.[address] Richie Heredia DO Work Phone: [facility] 06-01-2024 10:45-0400 Body mass index (BMI) [Ratio] 49.9 kg/m2 Dr. Richie Heredia DO Work Phone: [facility] 06-01-2024 10:45-0400 Body weight 112.[address] Richie Heredia DO Work Phone: [facility] 03-27-2024 23:26-0500 Heart rate 102 /min FLORENCIA CALLAWAY MD [facility] 03-27-2024 23:26-0500 Respiratory rate 20 /min FLORENCIA CALLAWAY MD [facility] 03-27-2024 22:04-0500 Respiratory rate 18 /min FLORENCIA CALLAWAY MD [facility] 03-27-2024 22:03-0500 Body temperature 98.78 [degF] FLORENCIA CALLAWAY MD [facility] 03-27-2024 22:03-0500 Body weight 99 kg FLORENCIA CALLAWAY MD [facility] 03-27-2024 22:03-0500 Diastolic Blood Pressure Non-Invasive 54 mm[Hg] FLORENCIA CALLAWAY MD [facility] 03-27-2024 22:03-0500 Heart rate 107 /min FLORENCIA CALLAWAY MD [facility] 03-27-2024 22:03-0500 Respiratory rate 20 /min FLORENCIA CALLAWAY MD [facility] 03-27-2024 22:03-0500 Systolic Blood Pressure Non-Invasive 127 mm[Hg] FLORENCIA CALLAWAY MD [facility] 03-10-2024 01:11-0500 Body temperature 98 [degF] Dr. Richie Heredia DO Work Phone: [facility] 03-10-2024 01:11-0500 Diastolic blood pressure 78 mm[Hg] Dr. Richie Heredia DO Work Phone: [facility] 03-10-2024 01:11-0500 Heart rate 97 /min Dr. Ricihe Heredia DO Work Phone: [facility] 03-10-2024 01:11-0500 Respiratory rate 16 /min Dr. Richie Heredia DO Work Phone: [facility] 03-10-2024 01:11-0500 SaO2% (BldA) [Mass fraction] 99 % Dr. Richie Heredia DO Work Phone: [facility] 03-10-2024 01:11-0500 Systolic blood pressure 132 mm[Hg] Dr. Richie Heredia DO Work Phone: [facility] 03-09-2024 22:06-0500 Body mass index (BMI) [Ratio] 45.5 kg/m2 Dr. Richie Heredia DO Work Phone: [facility] 03-09-2024 22:06-0500 Body weight 102.[address] Richie Heredia DO Work Phone: [facility] 02-21-2024 23:54-0500 Body temperature 97.8 [degF] Dr. Richie Heredia DO Work Phone: [facility] 02-21-2024 23:54-0500 Diastolic blood pressure 82 mm[Hg] Dr. Richie Heredia DO Work Phone: [facility] 02-21-2024 23:54-0500 Heart rate 93 /min Dr. Richie Heredia DO Work Phone: [facility] 02-21-2024 23:54-0500 Respiratory rate 20 /min Dr. Richie Heredia DO Work Phone: [facility] 02-21-2024 23:54-0500 SaO2% (BldA) [Mass fraction] 98 % Dr. Richie Heredia DO Work Phone: [facility] 02-21-2024 23:54-0500 Systolic blood pressure 160 mm[Hg] Dr. Richie Heredia DO Work Phone: [facility] 01-30-2023 14:00-0500 Inhaled oxygen flow rate 2 L/min Dr. Richie Heredia Work Phone: [facility] 01-30-2023 13:55-0500 Body temperature 97.5 [degF] Dr. Richie Heredia Work Phone: [facility] 01-30-2023 13:55-0500 Diastolic blood pressure 72 mm[Hg] Dr. Richie Heredia Work Phone: [facility] 01-30-2023 13:55-0500 Heart rate 80 /min Dr. Richie Heredia Work Phone: [facility] 01-30-2023 13:55-0500 Respiratory rate 16 /min Dr. Richie Heredia Work Phone: [facility] 01-30-2023 13:55-0500 SaO2% (BldA) [Mass fraction] 95 % Dr. Richie Heredia Work Phone: [facility] 01-30-2023 13:55-0500 Systolic blood pressure 126 mm[Hg] Dr. Richie Heredia Work Phone: [facility] 01-30-2023 06:00-0500 Body mass index (BMI) [Ratio] 49.6 kg/m2 Dr. Richie Heredia Work Phone: [facility] 01-30-2023 06:00-0500 Body weight 114.[address] Richie Heredia Work Phone: [facility] 01-30-2023 04:38-0500 Inhaled oxygen concentration 30 % Dr. Richie Heredia Work Phone: [facility] 01-29-2023 13:22-0500 Inhaled oxygen flow rate 2 L/min Dr. Richie Heredia Work Phone: [facility] 01-29-2023 12:55-0500 Heart rate 97 /min Dr. Richie Heredia Work Phone: [facility] 01-29-2023 12:55-0500 Respiratory rate 24 /min Dr. Richie Heredia Work Phone: [facility] 01-29-2023 12:55-0500 SaO2% (BldA) [Mass fraction] 99 % Dr. Richie Heredia Work Phone: [facility] 01-29-2023 09:24-0500 Body temperature 98.3 [degF] Dr. Richie Heredia Work Phone: [facility] 01-29-2023 09:24-0500 Diastolic blood pressure 73 mm[Hg] Dr. Richie Heredia Work Phone: [facility] 01-29-2023 09:24-0500 Systolic blood pressure 151 mm[Hg] Dr. Richie Heredia Work Phone: [facility] 01-29-2023 07:21-0500 Inhaled oxygen concentration 30 % Dr. Richie Heredia Work Phone: [facility] 01-29-2023 05:38-0500 Body mass index (BMI) [Ratio] 49.6 kg/m2 Dr. Richie Heredia Work Phone: [facility] 01-29-2023 05:38-0500 Body weight 114.[address] Richie Heredia Work Phone: [facility] 01-28-2023 13:57-0500 Body height 151.[address] Richie Heredia Work Phone: [facility] 10-20-2022 21:55-0400 Body temperature 97.7 [degF] [facility] 10-20-2022 21:55-0400 Diastolic blood pressure 66 mm[Hg] [facility] 10-20-2022 21:55-0400 Heart rate 101 /min [facility] 10-20-2022 21:55-0400 Respiratory rate 16 /min [facility] 10-20-2022 21:55-0400 SaO2% (BldA) [Mass fraction] 98 % [facility] 10-20-2022 21:55-0400 Systolic blood pressure 114 mm[Hg] [facility] 10-20-2022 21:19-0400 Body mass index (BMI) [Ratio] 51.4 kg/m2 [facility] 10-20-2022 21:19-0400 Body weight 119.[address] [facility] 10-20-2022 19:23-0400 Body height 152.[address] [facility] 09-09-2021 13:29-0400 Body height 152.4 cm [...] 05-23-2021 23:04-0400 Diastolic blood pressure 57 mm[Hg] [facility] Work Phone: 05-23-2021 23:04-0400 Heart rate 68 /min [facility] Work Phone: 05-23-2021 23:04-0400 Respiratory rate 18 /min [facility] Work Phone: 05-23-2021 23:04-0400 SaO2% (BldA) [Mass fraction] 96 % [facility] Work Phone: 05-23-2021 23:04-0400 Systolic blood pressure 135 mm[Hg] [facility] Work Phone: 05-23-2021 20:40-0400 Body height 152.[address] [facility] Work Phone: 05-23-2021 20:40-0400 Body mass index (BMI) [Ratio] 46.3 kg/m2 [facility] Work Phone: 05-23-2021 20:40-0400 Body temperature 98.1 [degF] [facility] Work Phone: 05-23-2021 20:40-0400 Body weight 107.[address] [facility] Work Phone: 04-26-2021 14:06-0500 Diastolic blood pressure 74 mm[Hg] [facility] Work Phone: 04-26-2021 14:06-0500 Heart rate 87 /min [facility] Work Phone: 04-26-2021 14:06-0500 Respiratory rate 16 /min [facility] Work Phone: 04-26-2021 14:06-0500 SaO2% (BldA) [Mass fraction] 95 % [facility] Work Phone: 04-26-2021 14:06-0500 Systolic blood pressure 154 mm[Hg] [facility] Work Phone: 04-26-2021 12:00-0500 Body mass index (BMI) [Ratio] 48.2 kg/m2 [facility] Work Phone: 04-26-2021 12:00-0500 Body temperature 97.1 [degF] [facility] Work Phone: 04-26-2021 12:00-0500 Body weight 112.[address] [facility] Work Phone: 01-20-2021 15:16-0500 Body temperature 99.68 [degF] MAYLIN SOUZA MD [facility] 01-20-2021 15:16-0500 Diastolic blood pressure 72 mm[Hg] MAYLIN SOUZA MD [facility] 01-20-2021 15:16-0500 Heart rate 74 /min MAYLIN SOUZA MD [facility] 01-20-2021 15:16-0500 Respiratory rate 20 /min MAYLIN SOUZA MD [facility] 01-20-2021 15:16-0500 Systolic blood pressure 163 mm[Hg] MAYLIN SOUZA MD [facility] 01-20-2021 14:17-0500 Body temperature 98.42 [degF] MAYLIN SOUZA MD [facility] 01-20-2021 14:17-0500 diastolic 49 mm[Hg] MAYLIN SOUZA MD [facility] 01-20-2021 14:17-0500 Heart rate 75 /min MAYLIN SOUZA MD [facility] 01-20-2021 14:17-0500 Respiratory rate 20 /min MAYLIN SOUZA MD [facility] 01-20-2021 14:17-0500 systolic 132 mm[Hg] MAYLIN SOUZA MD [facility] 01-20-2021 13:47-0500 Body temperature 99.14 [degF] MAYLIN SOUZA MD [facility] 01-20-2021 13:47-0500 diastolic 50 mm[Hg] MAYLIN SOUZA MD [facility] 01-20-2021 13:47-0500 Heart rate 74 /min MAYLIN SOUZA MD [facility] 01-20-2021 13:47-0500 Respiratory rate 20 /min MAYLIN SOUZA MD [facility] 01-20-2021 13:47-0500 systolic 140 mm[Hg] MAYLIN SOUZA MD [facility] 01-15-2021 13:06-0500 Diastolic blood pressure 79 mm[Hg] MAYLIN SOUZA MD [facility] 01-15-2021 13:06-0500 Heart rate 93 /min MAYLIN SOUZA MD [facility] 01-15-2021 13:06-0500 Mean blood pressure 94 mm[Hg] MAYLIN SOUZA MD [facility] 01-15-2021 13:06-0500 Respiratory rate 16 /min MAYLIN SOUZA MD [facility] 01-15-2021 13:06-0500 Systolic blood pressure 125 mm[Hg] MAYLIN SOUZA MD [facility] 01-15-2021 12:00-0500 Body height 152 cm MAYLIN SOUZA MD [facility] 01-15-2021 12:00-0500 Body temperature 98.24 [degF] MAYLIN SOUZA MD [facility] 01-15-2021 12:00-0500 Body weight 112 kg MAYLIN SOUZA MD [facility] 01-15-2021 12:00-0500 Diastolic blood pressure 84 mm[Hg] MAYLIN SOUZA MD [facility] 01-15-2021 12:00-0500 Heart rate 98 /min MAYLIN SOUZA MD [facility] 01-15-2021 12:00-0500 Respiratory rate 18 /min MAYLIN SOUZA MD [facility] 01-15-2021 12:00-0500 Systolic blood pressure 95 mm[Hg] MAYLIN SOUZA MD [facility] Encounters Encounter Date Encounter Type Care Provider Facility Start: 09-01-2024 End: 09-01-2024 ambulatory RICHIE HEREDIA Facility[facility] Start: 09-01-2024 End: 09-01-2024 Patient encounter procedure RICHIE GIOVANNA DO [facility] Start: 08-07-2024 End: 08-11-2024 ambulatory RICHIE GIOVANNA Facility[facility] Start: 08-07-2024 End: 08-11-2024 Outreach Lab RICHIE GIOVANNA DO [facility] Start: 06-01-2024 End: 06-01-2024 Emergency department patient visit Dr. Richie Heredia DO Work Phone: -Emergency Department Work Phone: Start: 04-20-2024 End: 04-24-2024 ambulatory RICHIE GIOVANNA Facility:[facility] Start: 04-20-2024 End: 04-24-2024 Outreach Lab RICHIE GIOVANNA DO [facility] Start: 04-13-2024 End: 04-13-2024 ambulatory RICHIE GIOVANNA Facility[facility] Start: 04-13-2024 End: 04-13-2024 Patient encounter procedure RICHIE PARKKO DO [facility] Start: 03-30-2024 End: 04-03-2024 ambulatory RICHIE HALKO Facility[facility] Start: 03-27-2024 End: 03-27-2024 Emergency department patient visit FLORENCIA CALLAWAY MD [facility] Start: 03-09-2024 End: 03-10-2024 Emergency department patient visit Dr. Hunter Ryan MD -Emergency Department Work Phone: Start: 02-21-2024 End: 02-21-2024 Emergency department patient visit Dr. Juliocesar Bryson-Usama DAVISON -Emergency Department Work Phone: Start: 11-25-2023 End: 11-29-2023 ambulatory RICHIE HALKO Facility[facility] Start: 11-25-2023 End: 11-29-2023 Outreach Lab RICHIE HALKO DO [facility] Start: 11-25-2023 End: 11-29-2023 ambulatory RICHIE HALKO Facility[facility] Start: 11-25-2023 End: 11-29-2023 Outreach Lab RICHIE HALKO DO [facility] Start: 11-25-2023 ambulatory Richie Halko Facility: [facility] Start: 09-02-2023 ambulatory Richie Halko Facility: [facility] Start: 08-30-2023 ambulatory RICHIE HALKO DO Facili ty:[facility] Start: 08-30-2023 ambulatory Richie Halko Facility: [facility] Start: 08-27-2023 ambulatory Richie Halko Facility: [facility] Start: 08-26-2023 ambulatory Richie Halko Facility: [facility] Start: 08-26-2023 End: 09-01-2023 Evaluation and management of inpatient Richie Halko Facility:[facility] Start: 08-26-2023 End: 08-26-2023 ambulatory Richie Halko Facility:[facility] Start: 08-25-2023 ambulatory Richie Halko Facility: [facility] Start: 08-12-2023 End: 08-16-2023 ambulatory RICHIE HALKO DO Facility:[facility] Start: 08-12-2023 End: 08-16-2023 Outreach Lab RICHIE HEREDIA DO [facility] Start: 07-26-2023 End: 07-26-2023 Emergency department patient visit Richie Heredia Facility:[facility] Start: 06-18-2023 ambulatory RICHIE HEREDIA DO Facili ty:[facility] Start: 04-20-2023 End: 04-20-[address] Richie Heredia Work Phone: [facility] Work Phone: Start: 04-20-2023 End: 04-20-[address] Richie Heredia Work Phone: [facility] Work Phone: Start: 04-13-2023 End: 04-13-2023 ambulatory RICHIE HEREDIA DO Facility:[facility] Start: 04-13-2023 End: 04-13-2023 Patient encounter procedure RICHIE HEREDIA DO [facility] Start: 03-18-2023 End: 03-22-2023 ambulatory RICHIE HEREDIA DO Facility:[facility] Start: 03-18-2023 End: 03-22-2023 Outreach Lab RICHIE HEREDIA DO [facility] Start: 03-08-2023 End: 05-06-2023 ambulatory RICHIE HEREDIA DO Facility:[facility] Start: 02-02-2023 End: 02-21-2023 ambulatory RICHIE HEREDIA DO Facility:[facility] Start: 01-30-2023 Non-patient / Non-visit Dr. Paige Heredia Work Phone: [facility] Start: 01-30-2023 Non-patient / Non-visit Dr. Paige Heredia Work Phone: [facility] Work Phone: Start: 01-29-2023 Non-patient / Non-visit Dr. Paige Heredia Work Phone: [facility] Work Phone: Start: 01-28-2023 Non-patient / Non-visit Dr. Paige Heredia Work Phone: [facility] Start: 01-28-2023 Non-patient / Non-visit Dr. Paige Heredia Work Phone: [facility] Work Phone: Start: 01-27-2023 Non-patient / Non-visit Dr. Paige Heredia Work Phone: [facility] Start: 01-27-2023 End: 01-30-2023 Evaluation and management of inpatient Dr. Richie Heredia Work Phone: [facility] Work Phone: Start: 01-27-2023 Non-patient / Non-visit Dr. Paige Heredia Work Phone: [facility] Work Phone: Start: 01-25-2023 End: 01-25-[address] Richie Heredia Work Phone: [facility] Work Phone: Start: 01-25-2023 End: 01-25-[address] Richie Heredia Work Phone: [facility] Work Phone: Start: 10-20-2022 End: 10-20-2022 Emergency department patient visit [facility] Work Phone: Start: 10-19-2022 End: 10-19-2022 ambulatory RICHIE HEREDIA DO Facility:[facility] Start: 10-19-2022 End: 10-19-2022 Patient encounter procedure RICHIE HEREDIA DO [facility] Start: 10-15-2022 ambulatory RICHIE Lou ty:B Start: 07-07-2022 End: 07-07-2022 Patient encounter procedure [facility] Work Phone: Start: 04-27-2022 End: 04-27-2022 Patient encounter procedure RICHIE NICKCHATO DAVISON [facility] Start: 04-22-2022 Non-patient / Non-visit Dr. Paige Heredia Work Phone: [facility] Start: 04-22-2022 End: 04-22-[address] Richie Heredia Work Phone: [facility] Work Phone: Start: 04-22-2022 End: 04-22-[address] Richie Heredia Work Phone: [facility] Start: 04-10-2022 End: 04-10-2022 Patient encounter procedure RICHIE PARKCHATO DAVISON [facility] Start: 03-03-2022 End: 03-03-2022 ambulatory [facility] Work Phone: Start: 03-03-2022 End: 03-03-2022 Patient encounter procedure [facility] Start: 11-06-2021 End: 11-06-2021 ambulatory [facility] Work Phone: Start: 11-06-2021 End: 11-06-2021 Patient encounter procedure [facility], [facility] Start: 09-10-2021 Telephone encounter Naye Lu MD Work Phone: General Surgery Comment on above: 10/07 colon/egd lodi Start: 09-09-2021 End: 09-09-2021 ambulatory RICHIE HEREDIA IV Facility:[facility] Start: 09-09-2021 Telephone encounter Mary moreno PA-C Work Phone: General Surgery Comment on above: 09/23 COLON EGD LODI Start: 09-09-2021 End: 09-09-2021 Patient encounter procedure Mary Thomas PA-C Work Phone: General Surgery Comment on above: Encounter for screen ing for malignant neoplasm of colon (Primary Dx); Other dysphagia; History of tobacco use Start: 08-18-2021 End: 08-18-2021 Patient encounter procedure RICHIE HEREDIA DO [facility] Start: 06-03-2021 End: 06-03-2021 Patient encounter procedure RICHIE HEREDIA DO [facility] Start: 05-23-2021 End: 05-23-2021 [facility] Start: 05-08-2021 End: 05-08-2021 Patient encounter procedure RICHIE HEREDIA DO [facility] Start: 04-26-2021 End: 04-26-2021 Emergency department patient visit [facility] Start: 01-20-2021 End: 01-20-2021 Patient encounter procedure MAYLIN SOUZA MD [facility] Start: 01-15-2021 End: 01-15-2021 Emergency department patient visit MAYLIN SOUZA MD [facility] Start: 01-15-2021 End: 01-15-2021 Patient encounter procedure RICHIE HEREDIA DO [facility] Start: 05-17-2000 End: 05-17-2000 Patient encounter procedure Cristopher Thomason Work Phone: [facility] Start: 05-17-2000 Results Only Cristopher blair Work Phone: [facility] Start: 02-09-2000 End: 02-09-2000 Patient encounter procedure Cristopher Thomason Work Phone: [facility] Start: 02-09-2000 Results Only Cristopher blair Work Phone: [facility] Procedures Date Procedure Procedure Detail Performing Clinician [...] Work Phone: Start: 09-16-1999 Arthroplasty of knee [place] CAMILLE HEREDIA DO Comment on above: left [...] identified in Urine by Culture Urine Culture [facility] Start: 06-01-2024 [facility] Start: 03-10-2024 [facility] Start: 03-09-2024 [facility] Start: 02-21-2024 [facility] Start: 02-21-2024 [facility] Start: 04-20-2023 Thiamine measurement [facility] Start: 02-01-2023 Referral to service [facility] Start: 01-30-2023 Patient discharge [facility] Start: 01-30-2023 Blood chemistry [facility] Start: 01-29-2023 Partial thromboplast in time, activated [facility] Start: 01-29-2023 Enteric Bacteriology Enteric Bacteri ology [facility] Start: 01-29-2023 Respiratory Culture Respiratory Cult ure [facility] Start: 01-28-2023 End: 01-29-2023 [facility] Start: 01-28-2023 Care planning and pr oblem solving actions [facility] Start: 01-28-2023 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 [facility] Start: 01-28-2023 Referral to service [facility] Start: 01-27-2023 Care planning and pr oblem solving actions [facility] Start: 01-27-2023 End: 01-27-2023 Following clinical pathway protocol [facility] Start: 01-27-2023 Dual pressure sponta neous ventilation support [facility] Start: 01-27-2023 Bacteria identified in Blood by Culture Blood Culture [facility] Start: 01-27-2023 Urine culture Urine Culture [facility] Start: 01-27-2023 Admission procedure [facility] Start: 01-27-2023 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 [facility] Start: 01-27-2023 Inhalation therapy procedure [facility] Start: 01-27-2023 Oxygen therapy [facility] Start: 01-27-2023 Care regimes management [facility] Start: 01-27-2023 Assessment of risk o f venous thromboembolism [facility] Start: 01-27-2023 Cardiac monitoring [facility] Start: 01-27-2023 Catheterization of vein [facility] Start: 01-27-2023 Continuous pulse oximetry [facility] Start: 01-27-2023 Insertion of cathete r into peripheral vein [facility] Start: 01-27-2023 Measuring intake and output [facility] Start: 01-27-2023 End: 01-27-2023 Notification of physician [facility] Start: 01-27-2023 Providing care accor ding to standard [facility] Start: 01-27-2023 Vital signs measurements [facility] Start: 01-27-2023 End: 01-27-2023 [facility] Start: 01-27-2023 Ambulation without limitation [facility] Start: 01-27-2023 Verification routine [facility] Start: 01-27-2023 Blood culture [facility] Start: 01-27-2023 [facility] Start: 01-27-2023 Patient referral to dietitian [facility] Start: 10-20-2022 Enteric precautions [facility] Start: 10-20-2022 C. difficile DNA Amplification C. difficile DNA Amplification [facility] Start: 10-20-2022 Enteric Bacteriology Enteric Bacteri ology [facility] Start: 11-16-2021 COVID-19 VACCINE (4 - Booster [...] Center Start: 07-23-[address] [facility] Start: 07-23-1996 FECAL OCCULT BLOOD FECAL OCCULT BLOO D [facility] Start: 07-23-1996 SIGMOIDOSCOPY SIGMOIDOSCOPY [facility] Start: 1991 Mammography MAMMOGRAM [facility] Start: 07-23-1970 Urine microalbumin profile DTAP,TDAP ,TD (1 - Tdap) [facility] Start: 07-23-1969 ANNUAL PCP TEAM TAKER AWAY TASHA DISEASE VISIT ANNUAL PCP TEAM CHRONIC DISEASE VISIT [facility] Start: 07-23-1969 Hepatitis B surface antibody level LDL CHOLESTEROL [facility] Start: 07-23-1969 HEPATITIS C SCREENING HEPATITIS C SC REENING [facility] Start: 1963 Adult depression scr eening assessment DEPRESSION SCREENING [facility] Start: 07-23-1961 [object Object] DIABETIC FOOT EXAM C [facility] Start: 07-23-1961 Hepatitis B screening URINE ALBUMIN:CREATININE [...] Bacteria identified in Sputum by Respiratory culture [facility] Bacteria identified in Unspecified specimen by Respiratory culture [facility] BUN/Creatinine ratio [facility] Calcium [Mass/volume ] in Serum or Plasma [facility] Carbon dioxide, tota l [Moles/volume] in Serum or Plasma [facility] Chloride [Moles/volu me] in Serum or Plasma [facility] Clostridioides diffi cile DNA [Presence] in Unspecified specimen by IVAN with probe detection [facility] Creatinine [Moles/vo lume] in Serum or Plasma [facility] End: 09-09-2022 EGD DIAGNOSTIC EGD DIAGNOSTIC Endoscopy Routine Dysphagia, unspecified type History of tobacco use 1 Occurrences starting 09/09/2021 until 09/09/2022 [facility] Work Phone: Comment on above: 1 Occurrences starti ng 09/09/2021 until 09/09/2022 Gastrointestinal pat hogens panel - Stool by IVAN with probe detection [facility] Gastrointestinal pat hogens panel - Stool by IVAN with probe detection [facility] Glucose [Mass/volume ] in Serum or Plasma [facility] Hematocrit [Volume Fraction] of Blood [facility] Hemoglobin [Mass/vol ume] in Blood [facility] Leukocytes [#/volume ] in Blood [facility] Mean corpuscular hemoglobin concentration determination [facility] Mean corpuscular hemoglobin determination [facility] Measurement of renal function [facility] Neutrophil count [facility] Neutrophil percent differential count [facility] Ova and parasites identified in Unspecified specimen by Light microscopy [facility] Ova and parasites identified in Unspecified specimen by Light microscopy [facility] Patient Education [facility] Work Phone: Patient referral [facility] Work Phone: Platelets [#/volume] in Blood [facility] Potassium [Moles/vol ume] in Serum or Plasma [facility] Red blood cell count [facility] Red cell distributio n width determination [facility] End: 09-09-2022 Screening colonoscopy COLONOSCOPY SCREENING Endoscopy Routine Screening for colon cancer 1 Occurrences starting 09/09/2021 until 09/09/2022 [facility] Work Phone: Comment on above: 1 Occurrences starti ng 09/09/2021 until 09/09/2022 Sodium [Moles/volume ] in Serum or Plasma [facility] Urea nitrogen [Mass/volume] in Serum or Plasma [facility] Urine culture [facility] Immunizations Immunization Date Immunization Notes Care Provider Fa cility 12-29-2023 influenza, high dose seasonal, preservative-free; Translations: [Afluria PF Prefilled Syringe ] FLORENCIA CALLAWAY MD [facility] 12-06-2022 pneumococcal 20-destin nt conjugate vaccine RICHIE HEREDIA DO [facility] 12-06-2022 RSV vaccine preF3, recombinant RICHIE HEREDIA DO [facility] 12-06-2022 zoster vaccine recombinant RICHIE HEREDIA DO [facility] 12-03-2022 influenza, injectabl e, quadrivalent, preservative free Dr. Richie Heredia DO Work Phone: [facility] 01-26-2022 influenza, high dose seasonal, preservative-free RICHIE HEREDIA DO [facility] 11-18-2021 COVID-19, mRNA, LNP- S, bivalent booster, PF, 30 mcg/0.3 mL dose; Translations: [[employer] COVID-19 (12y+) Bivalent Booster Vaccine PF] RICHIE HEREDIA DO [facility] [place] Comment on above: Early/Late Reason: E yue/Late Reason: Other: 11-18-2021 SARSCoV2 mRNA(gvythspkozy27e+)biv al vac 1; Translations: [Pfizer-BioNTech COVID-19 (12y+) Bivalent Booster Vaccine PF] RICHIE HEREDIA DO [facility] Comment on above: Early/Late Reason: E yue/Late Reason: Other: 07-16-2021 COVID-19, mRNA, LNP- S, PF, 100 mcg or 50 mcg dose; Translations: [Moderna COVID-19 Vaccine] RICHIE HEREDIA DO [facility] 07-11-2021 pneumococcal polysaccharide vaccine, 23 valent; Translations: [Pneumovax 23] RICHIE HEREDIA DO [facility] 12-24-2020 influenza, high dose seasonal, preservative-free; Translations: [Fluad Quadrivalent PF ] RICHIE HEREDIA DO [facility] 09-04-2020 COVID-19, mRNA, LNP- S, PF, 100 mcg/ 0.5 mL dose; Translations: [Moderna COVID-19 Vaccine] RICHIE HEREDIA DO [facility] 08-01-2020 COVID-19, mRNA, LNP- S, PF, 100 mcg/ 0.5 mL dose; Translations: [Moderna COVID-19 Vaccine] RICHIE HEREDIA DO [facility] 11-17-2019 influenza, injectabl e, quadrivalent, preservative free Dr. Richie Heredia Work Phone: [facility] 11-17-2019 influenza, seasonal, injectable [facility] 02-01-2018 influenza virus vacc ine, unspecified formulation RICHIE HEREDIA DO [facility] 11-04-2017 influenza virus vacc ine, unspecified formulation RICHIE HEREDIA DO [facility] 10-08-2017 pneumococcal conjuga te vaccine, 13 valent RICHIE HEREDIA DO [facility] 01-29-2015 influenza virus vacc ine, unspecified formulation RICHIE HEREDIA DO [facility] 03-15-2014 influenza virus vacc ine, unspecified formulation RICHIE HEREDIA DO [facility] 03-15-2014 influenza, injectabl e, quadrivalent, preservative free Dr. Richie Heredia Work Phone: [facility] 03-15-2014 influenza, seasonal, injectable [facility] 01-21-2013 influenza virus vacc ine, unspecified formulation RICHIE HEREDIA DO [facility] Payers Date Payer Category Payer Unknown [id number] 2023 Private Health Insurance [id number] 2023 Private Health Insurance [id number] 2023 Self-pay [id number] 2023 Private Health Insurance [id number] 2023 Unknown [id number] 2023 Medicaid [id number] 2022 Medicaid [id number] 2021 Medicare UHC MEDICARE UHC DUAL COMPLETE HMO SNP [id number] 2021-Present [phone] [address] [place] [address] Medicare [id number] 2021 Medicare UHC MEDICARE UHC DUAL COMPLETE HMO SNP [id number] 2021-Present [phone] [address] [place] [address] Medicare [id number]. [id number] 2021 Unknown [id number] 2021 Unknown [id number] 2013 Medicare [id number] 1992 Unknown [facility] PREF ERRED [facility] [id number] 1992-2012 PPO [id number] 1.2.840.149609.1.13.159.2. 7.3.329017.315 1950 Unknown [id number] 840.1.344542.3.579.2. 1950 Unknown [id number] .840.1.810044.3.579.2. 1950 Unknown [id number] .840.1.536303.3.579.2. 62 1950 Unknown [id number] .0.1.698514.3.579.2. 1950 Unknown [id number] 2.16.840.1.245650.3.579.2. 627 1950 Unknown [id number] 2.16.840.1.995163.3.579.2. 1950 Unknown [id number] 2.16.840.1.103625.3.579.2. 1950 Unknown [id number] 2.16.840.1.196430.3.579.2. 1950 Unknown [id number] 2.16.840.1.403567.3.579.2. 1951 Unknown [id number] 2.16.840.1.203906.3.579.2. 1950 Unknown [id number] 2.16.840.1.019518.3.579.2. 1950 Unknown [id number] 2.16.840.1.493181.3.579.2. 1950 Unknown [id number] 2.16.840.1.067971.3.579.2. 1950 Unknown [id number] 2.16.840.1.538178.3.579.2. 1950 Unknown [id number] 2.16.840.1.625763.3.579.2. 627 Unknown [id number] Unknown [id number] 2.16.840.1.674969.3.579.2. 462 Unknown [id number] 2.16.840.1.253846.3.579.2. 462 Unknown [id number] 2.16.840.1.787066.3.579.2. 462 Unknown [id number] 2.16.840.1.719235.3.579.2. 462 Unknown [id number] 2.16.840.1.247657.3.579.2. 462 Unknown [id number] 2.16.840.1.154532.3.579.2. 462 Unknown [id number] 2.16.840.1.050110.3.579.2. 462 Unknown [id number] 2.16.840.1.450657.3.579.2. 462 Unknown [id number] 2.16.840.1.718430.3.579.2. 462 Unknown [id number] 2.16.840.1.995631.3.579.2. 462 Unknown [id number] 2.16.840.1.693649.3.579.2. 462 Unknown [id number] 2.16.840.1.806041.3.579.2. 462 Unknown [id number] 2.16.840.1.934344.3.579.2. 462 Unknown [id number] 2.16.840.1.193618.3.579.2. 462 Unknown [id number] 2.16.840.1.301312.3.579.2. 462 Unknown [id number] 2.16.840.1.194027.3.579.2. 462 Unknown [id number] 2.16.840.1.249275.3.579.2. 462 Social History Date Type Detail Facility Tobacco smoking status NHIS Unknown if ever smoked [facility] Start: 1950 Sex Assigned At Not on file [facility] Start: 02-06-2020 Heavy tobacco smoker (finding) [facility] Sex Assigned At [facility] Start: 05-23-2021 End: 01-29-2023 Tobacco smoking status NHIS Unknown if ever smoked [facility] Start: 07-16-2019 None [facility] Start: 07-16-2019 With Family;Friends [facility] Start: 11-16-2019 Cigarettes [facility] Start: 1950 Sex Assigned At Female [facility] Start: 09-09-2021 Tobacco smoking status NHIS Smokes tobacco daily [facility] Start: 09-09-2021 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..] cholecystectomy with exploration of common bile duct CLIP,HEMOLOZapproved SAUNDRA FDA Start: 11-16-2019 Total cholecystectomy with exploration of common bile duct CLIP,HEMYOGI NovanSTEVEN FDA Start: 11-16-2019 Total cholecystectomy with exploration of common bile duct CLIP,HEMYOGI [employer] SAUNDRA FDA Start: 11-16-2019 Total cholecystectomy with exploration of common bile duct CLIP,HEMYOGI [employer] SAUNDRA FDA Start: 11-16-2019 Total cholecystectomy with exploration of common bile duct CLIP,[employer]YOGI [employer] SAUNDRA FDA Start: 11-16-2019 Total cholecystectomy with exploration of common bile duct CLIP,[employer] GroupBIANCAA[employer]IV [employer] SystemsSTEVEN FDA Start: 11-16-2019 Total cholecystectomy with exploration of common bile duct CLIP,[employer] GroupBIANCAACTIV [employer] SystemsSTEVEN FDA Start: 11-16-2019 NOVOFINE 32G NEEDLES Start: 10-25-2018 NOVOFINE 32G NEEDLES Start: 10-25-2018 NOVOFINE 32G NEEDLES Start: 10-25-2018 NOVOFINE 32G NEEDLES Start: 10-25-2018 NOVOFINE 32G NEEDLES, one daily, 0 Refill(s) Start: 10-25-2018 See Instructions , dispense #60 Novofine 32 G pen needles; 11 refills; dx E11.9, # 60 EA, 11 Refill(s), Pharmacy: [facility]/pharmacy #[id number], 153.5, cm, 04/17/19 16:11:00 EST, Height, 136.1, kg, 04/17/19 16:11:00 EST, Dosing Weight Start: 05-10-2019 See Instructions , dispense #60 Novofine 32 G pen needles; 11 refills; dx E11.9, # 60 EA, 11 Refill(s), Pharmacy: [facility]/pharmacy #3321, 153.5, cm, 04/17/19 16:11:00 EST, Height, 136.1, kg, 04/17/19 16:11:00 EST, Dosing Weight Start: 05-10-2019 See Instructions , dispense #60 Novofine 32 G pen needles; 11 refills; dx E11.9, # 60 EA, 11 Refill(s), Pharmacy: [facility]/pharmacy #3321, 153.5, cm, 04/17/19 16:11:00 EST, Height, 136.1, kg, 04/17/19 16:11:00 EST, Dosing Weight Start: 05-10-2019 See Instructions , dispense #60 Novofine 32 G pen needles; 11 refills; dx E11.9, # 60 EA, 11 Refill(s), [facility], 153.5, cm, 04/17/19 16:11:00 EST, Height, 136.1, kg, 04/17/19 16:11:00 EST, Dosing Weight Start: 05-10-2019 See Instructions , dispense #60 Novofine 32 G pen needles; 11 refills; dx E11.9, # 60 EA, 11 Refill(s), [facility], 153.5, cm, 04/17/19 16:11:00 EST, Height, 136.1, kg, 04/17/19 16:11:00 EST, Dosing Weight Start: 05-10-2019 See Instructions , dispense #60 Novofine 32 G pen needles; 11 refills; dx E11.9, # 60 EA, 11 Refill(s), [facility], 153.5, cm, 04/17/19 16:11:00 EST, Height, 136.1, kg, 04/17/19 16:11:00 EST, Dosing Weight Start: 05-10-2019 See Instructions , dispense #60 Novofine 32 G pen needles; 11 refills; dx E11.9, # 60 EA, 11 Refill(s), [facility], 153.5, cm, 04/17/19 16:11:00 EST, Height, 136.1, kg, 04/17/19 16:11:00 EST, Dosing Weight Start: 05-10-2019 See Instructions , dispense #60 Novofine 32 G pen needles; 11 refills; dx E11.9, # 60 EA, 11 Refill(s), [facility], 153.5, cm, 04/17/19 16:11:00 EST, Height, 136.1, kg, 04/17/19 16:11:00 EST, Dosing Weight Start: 05-10-2019 See Instructions , dispense #60 Novofine 32 G pen needles; 11 refills; dx E11.9, # 60 EA, 11 Refill(s), [facility], 153.5, cm, 04/17/19 16:11:00 EST, Height, 136.1, kg, 04/17/19 16:11:00 EST, Dosing Weight Start: 05-10-2019 See Instructions , dispense #60 Novofine 32 G pen needles; 11 refills; dx E11.9, # 60 EA, 11 Refill(s), [facility], 153.5, cm, 04/17/19 16:11:00 EST, Height, 136.1, kg, 04/17/19 16:11:00 EST, Dosing Weight Start: 05-10-2019 See Instructions , dispense #60 Novofine 32 G pen needles; 11 refills; dx E11.9, # 60 EA, 11 Refill(s), [facility], 153.5, cm, 04/17/19 16:11:00 EST, Height, 136.1, kg, 04/17/19 16:11:00 EST, Dosing Weight Start: 05-10-2019 See Instructions , dispense #60 Novofine 32 G pen needles; 11 refills; dx E11.9, # 60 EA, 11 Refill(s), Pharmacy: [facility] #3321, 153.5, cm, 04/17/19 16:11:00 EST, Height, 136.1, kg, 04/17/19 16:11:00 EST, Dosing Weight Start: 05-10-2019 See Instructions , dispense #60 Novofine 32 G pen needles; 11 refills; dx E11.9, # 60 EA, 11 Refill(s), Pharmacy: [facility] #3321, 153.5, cm, 04/17/19 16:11:00 EST, Height, 136.1, kg, 04/17/19 16:11:00 EST, Dosing Weight Start: 05-10-2019 Goals Date Patient Goal Desired Activity /State Functional Status Date Assessment Result Facility 03-27-2024 Functional Status Awake [facility] 03-27-2024 Functional Status Juliet fraser [facility] 01-30-2023 Functional status Bathroom Privilege [facility] Work Phone: 01-29-2023 Functional status Chair [facility] Work Phone: Mental Status Date Assessment Result Facility 06-01-2024 Cognitive function Level Of Cons ciousness Awake;Alert;Appropriate;Follow s Commands [facility] Work Phone: 03-27-2024 Mental Status Orientation Oriented x 4 [facility] 03-27-[address] [facility] 01-30-2023 Cognitive function Voice/Name [facility] Work Phone: 01-29-2023 Cognitive function Voice/Name [facility] Work Phone: 10-20-2022 Cognitive function Level Of Cons ciousness Awake;Alert;Appropriate;Follow s Commands [facility] Work Phone: 05-23-2021 Cognitive function Voice/Name [facility] Work Phone: Clinical Notes 01-15-2021 to [...] Locations *1: This test was performed at: [facility], [address] [place] [address], [address] , [facility] 06-01-2024 Radiology Diagnostic study note [facility] Imaging Services [address] [place] [address] Chest 1 View (Portable) MR#: [id number] Acct: [id number] Name: DAVID STREET Rep #: [id number] : 1950 F 73 From: Jacklyn Jackson MD PCP: Dr. Richie Heredia DO Status: REG ER Study:Chest 1 View (Portable) Date of Exam: 06/01/24 Exam# [id number] Ordering Dr: Ramesh Ryan DO EXAM: XR Chest, 1 View CLINICAL INDICATION: WEAKNESS TECHNIQUE: Frontal view of the chest. COMPARISON: No relevant prior studies available. FINDINGS: LUNGS AND PLEURAL SPACES: Unremarkable. No consolidation. No pneumothorax. HEART: Unremarkable. No cardiomegaly. MEDIASTINUM: Unremarkable. Normal mediastinal contour. BONES/JOINTS: Unremarkable. No acute fracture. RAD/Chest 1 View (Portable) IMPRESSION: No acute cardiopulmonary process. Reading Location: [facility] CC: Dr. Darius Ryan DO; Dr. Richie Heredia DO ~ Road Crossing Guard: Signed [facility] 04-22-2024 Note . MICRO - Microbiology PROCEDURE: [...] Locations *1: This test was performed at: [facility], [address] [place] [address], [address] 03-28-2024 Hospital Discharge instructions Patient Education [...] If needed, more treatment may be started. 1020-6961 [employer]. [address] [place] [address]. All rights reserved. This information is not intended as a substitute for professional medical care. Always follow your healthcare professional's instructions. Follow Up Care 03/27/2024 22:02:03 With:RICHIE HEREDIA Address: [address] [facility] [place] [phone] Business (1) When:3-5 days Comments:Schedule appointment for follow-up if symptoms are not improving.Push fluids.Use Tylenol or Advil for fever and discomfort as needed.Use Pyridium as prescribed to help with the urinary discomfort and antibiotic (Macrobid) to treat the urinary tract infection.Return to the ED if symptoms worsen. [facility] 03-27-2024 Emergency department Discharge summary Discharge Instructions [...] with RICHIE HEREDIA When:Within 3-5 days Where:[address] [place] [phone] Business (1) Additional Information: Schedule appointment for [...] If needed, more treatment may be started. 8209-3197 [employer]. [address] [place] [address], [place] [address]. All rights reserved. This information is not intended as a substitute for professional medical care. Always follow your healthcare professional's instructions. Additional Information VACCINATE! IT SAVES LIVES! Members of the community who have not yet received the COVID-19 vaccine and would like to receive it can visit one of [facility] vaccine clinics. There are many vaccine clinic locations within the [facility]. For locations and available times, please visit www.[email or web address].[place]. gov/. It is important to note that some COVID mobile vaccine clinics are held outdoors and may be canceled in rainy or stormy conditions. To learn more about pediatric vaccinations (ages 5-11), we invite you to visit the [facility] webpage. https://www.[facility].org/p ages/0725-Wlsep-Fdqrpomxuyn-Freq zlfxfe-Khatd-Kbcqjfefl.html To learn more about the COVID-19 vaccine, we invite you to visit the CDC website for a list of frequently asked questions. https://www.cdc.gov/coronavirus/ 2019-ncov/vaccines/faq.html [facility] Patient Portal Access Instructions: Stay connected with your healthcare team and access your personal medical information anytime with the [facility] Patient Portal. If you would like a full copy of your medical records please contact the [facility] Medical Records Department Wednesday through Wednesday between 8a.m. and 4:30p.m. Please follow the directions below to access the portal: 1.Access the email account you provided upon registration to the hospital.2.Look for an invitation email from [facility].3.Open the email and access the invitation link: Accept Invitation to [facility]4.Fill in the required schmidt to create your account. Sign into [email or web address] with your username and password that you [...] you will allow to register on the [facility] Patient Portal for access to your information. You can also access the [facility] Patient Portal on the [employer]. Simply click on "Health Records" under "Health Data" and then click on the [employer] logo. HOW TO SAFELY DISPOSE OF PRESCRIPTION [...] Call your local pharmacy or go to http://Cuculus.girnarsoft/7O6Nc9o to find one close to you.3.Make use of household items: Use cat litter or old coffee grounds to dispose medications if other options are not available. Mix your drugs with these household products, seal them in an airtight container and throw it into the garbage. Call [facility]: [phone] to be sure your drugs can be [...] aware that I should contact my doctor. Patient/Director Cpg Signature: Date/Time: Relationship to Patient: Witness Name/Signature: Date/Time: [facility] 11-28-2023 Note . MICRO - Microbiology PROCEDURE: [...] Locations *1: This test was performed at: [facility], [address] [place] [address], [address]- , [facility] 09-01-2023 Note [facility] Medical Records Department [address] [place] [address] Discharge Summary 09/01/23 1600 MR#: [id number] Acct: [id number] Name: DAVID STREET Rep #: [id number] : 1950 73 From: Mejia Grissom DO PCP: Dr. Richie Heredia DO Status:ADM IN Location: [place] [address] Providers Date of Admission: 08/26/23 Primary Care [...] continue VTE prophylaxis: -Heparin SC Disposition: to [facility] Medications at Discharge Home Medications aspirin [...] dose statin thera (more content not included)... [facility] 04-14-2023 Note . MICRO - Microbiology PROCEDURE: Urine Culture [*1] SOURCE: Urine, Clean Catch BODY SITE: COLLECTED DATE/TIME: 04/13/2023 17:11 EST RECEIVED DATE/TIME: 04/13/2023 19:06 EST START DATE/TIME: 04/13/2023 19:06 EST FREE TEXT SOURCE: FINAL REPORTS Final Report [] Verified Date/Time/Personnel: 04/14/2023 14:22 EST <10,000 cfu/ml. No Significant growth. Sensitivity not indicated. Performing Locations *1: This test was performed at: [facility], [address] [place] [address], [facility] , [facility], [facility] ([place]) 03-20-2023 Note . MICRO - Microbiology PROCEDURE: [...] Locations *1: This test was performed at: [facility], [address] [place] [address], [address] , [facility], [facility] ([place]) 01-30-2023 Progress note Note Date/Time January 30, 2023 11:24am [facility] Medical Records Department [address] [place] [address] Progress Note - Cardiology 01/30/231121 MR#: [id number] Acct: [id number] Name: YENIFERDAVID D Rep #:[id number] : 1950 72 From: Michael Saravia MD PCP: Dr. Richie eHredia, DO Status:ADM IN Location: [place] [address] Subjective Subjective Denies any complaints. Objective Data [...] 76.0 H, Lymph % (Auto) 14.6 L, Hays % (Auto) 7.2, Eos % (Auto) 1.2, [...] 73.1 H, Lymph % (Auto) 15.4 L, Hays % (Auto) 8.5, Eos % (Auto) 2.1, [...] 76.0 H, Lymph % (Auto) 14.6 L, Hays % (Auto) 7.2, Eos % (Auto) 1.2, [...] 73.1 H, Lymph % (Auto) 15.4 L, Hays % (Auto) 8.5, Eos % (Auto) 2.1, [...] Cosigner Signature (if applicable): CC: ~ Signed [facility] Work Phone: 1(634) 204-680412-09-2023 Discharge summary Author Maximilian Kitchen [facility] January 30, 2023 11:00am Note Date/Time January 30, 2023 1 0:56am [facility] Medical Records Department [address] [place] [address] Discharge Summary 01/30/23 1056 MR#: [id number] Acct: [id number] Name: DAVID STREET Rep #:[id number] : 1950 72 From: Maximilian Kitchen MD PCP: Dr. Richie Heredia DO Status:ADM IN [facility] Prov[facility] Date of Admission: 01/27/23 [...] 76.0 H, Lymph % (Auto) 14.6 L, Hays % (Auto) 7.2, Eos % (Auto) 1.2, [...] 73.1 H, Lymph % (Auto) 15.4 L, Hays % (Auto) 8.5, Eos % (Auto) 2.1, [...] Self Care Charges/Coding Visit Charges Inpatient E&M: 39405 Disch Hosp >30min 01/30/23 1100 <Electronically signed by Maximilian Kitchen MD> Cosigner Signature (if applicable): CC: Dr. Maximilian Kitchen MD; Dr. Richie Heredia DO~ Signed [facility] Work Phone: 1(440) 159-939412-09-2023 Progress note Author Maximilian Kitchen [facility] January 30, 2023 10:55am Note Date/Time January 30, 2023 8 :09am [facility] Medical Records Department [address] [place] [address] Progress Note - Hospitalist 01/30/23807 MR#: [id number] Acct: [id number] Name: DAVID STREET Rep #:[id number] : 1950 72 From: Maximilian Kitchen MD PCP: Dr. Richie Heredia DO Status:ADM IN Location: [place] [address] Reason for Visit Reason for Visit: Diagnoses [...] 76.0 H, Lymph % (Auto) 14.6 L, Hays % (Auto) 7.2, Eos % (Auto) 1.2, [...] 73.1 H, Lymph % (Auto) 15.4 L, Hays % (Auto) 8.5, Eos % (Auto) 2.1, [...] to acute acute [facility] 1. Sepsis secondary [...] 35 minutes Charges/Coding Visit Charges Inpatient E&M: 36705 Subs Hosp L2 01/30/23 1055 <Electronically signed by Maximilian Kitchen MD> Cosigner Signature (if applicable): CC: ~ Signed [facility] Work Phone: 1(679) 952-854612-08-2023 Progress note Author Maximilian Kitchen [facility] January 29, 2023 11:05am Note Date/Time January 29, 2023 7 :49am [facility] Medical Records Department [address] [place] [address] Progress Note - Hospitalist 01/29/23 0744 MR#: [id number] Acct: [id number] Name: YENIFERDAVID D Rep #:[id number] : 1950 72 From: Maximilian Kitchen MD [...] 50 minutes Charges/Coding Visit Charges Inpatient E&M: 26805 Subs Hosp L3 01/29/23 1105 <Electronically signed by Maximilian Kitchen MD> Cosigner Signature (if applicable): CC: ~ Signed [facility] Work Phone: 1(549) 326-566012-07-2023 Consult note Author Michael Saravia [facility] January 28, 2023 2:56pm Note Date/Time January 28, 2023 2 :56pm [facility] Medical Records Department [address] [place] [address] Consultation - Cardiology 01/28/23 1450 MR#: [id number] Acct: [id number] Name: DAVID STREET Rep #:[id number] : 1950 72 From: Michael Saravia MD [...] or shortness of breath. Denies any palpitations. [facility] Medical History Diabetes mellitus type 2 in [...] 78.3 H, Lymph % (Auto) 12.9 L, Hays % (Auto) 7.5, Eos % (Auto) 0.4, [...] 78.3 H, Lymph % (Auto) 12.9 L, Hays % (Auto) 7.5, Eos % (Auto) 0.4, [...] Ryan DO; Dr. Richie Heredia DO~ Signed [facility] Work Phone: 1(699) 104-371312-07-2023 Progress note Author Maximilian Kitchen [facility] January 28, 2023 9:18am Note Date/Time January 28, 2023 9 :11am [facility] Medical Records Department [address] [place] [address] Progress Note - Hospitalist 01/28/23 0911 MR#: [id number] Acct: [id number] Name: DAVID STREET Rep #:[id number] : 1950 72 From: Maximilian Kitchen MD [...] Sl. Cloudy, Urine pH 7.0, Ur Specific Chamois 1.005, Urine Protein 30 H, Urine Glucose [...] 95.3 H, Lymph % (Auto) 3.0 L, Hays % (Auto) 0.7, Eos % (Auto) 0.3, [...] 78.3 H, Lymph % (Auto) 12.9 L, Hays % (Auto) 7.5, Eos % (Auto) 0.4, [...] documentation, 55 minutes Charges/Coding Procedures Hospitalists Procedures: 50571 Critial Care 1st Hr 01/28/23 0918 <Electronically signed by Maximilian Kitchen MD> Cosigner Signature (if applicable): CC: ~ Signed [facility] Work Phone: 1(690) 571-104412-07-2023 Discharge summary Author Darius Ryan [facility] January 28, 2023 8:30am Note Date/Time January 27, 2023 8 :51am [facility] Medical Records Department [address] [facility] [place] [address] Emergency Department Summary 01/27/23 MR#: [id number] Acct: [id number] Name: DAVID STRETE Rep #:[id number] : 1950 72 From: Darius Charlton PCP: [...] but does not wear home oxygen. PFSH [facility] Medical History Diabetes mellitus type 2 in [...] 95.3 H Lymph % (Auto) 3.0 L Hays % (Auto) 0.7 Eos % (Auto) 0.3 [...] Sl. Cloudy Urine pH 7.0 Ur Specific [place]amois 1.005 Urine Protein 30 H Urine Glucose [...] febrile illness Disposition Disposition: [facility] Care [facility] What to do if you have Problems For any increased pain, shortness of breath, bleeding, nausea or vomiting, chestpain, or any unexpected problems, contact your Primary Care Provider. Call [facility] ([phone]) or report to the closest Emergency Room. Call 911 if necessary. 01/28/23 0830 <Electronically signed by Darius Ryan DO> Cosigner Signature (if applicable): CC: Dr. Richie Heredia DO ~ Signed [facility] Work Phone: 1(443) 487-856312-06-2023 Progress note Author Maximilian [facility] January 27, 2023 3:38pm Note Date/Time January 27, 2023 3 :39pm [facility] Medical Records Department [address] [facility] [place] [address] Progress Note - Sepsis 01/27/23 1537 MR#: [id number] Acct: [id number] Name: DAVID STREET Rep #:[id number] : 1950 72 From: Maximilian Kitchen MD PCP: Dr. Richie Heredia DO Status:ADM IN Location: [place] [address] Sepsis Attestation Sepsis Alert: Yes Date exam [...] Cosigner Signature (if applicable): CC: ~ Signed [facility] Work Phone: 1(846) 814-771812-06-2023 Procedure [facility] 01-27-2023 History and physical note Author Maximilian [facility] January 27, 2023 12:14pm Note Date/Time January 27, 2023 1 1:26am [facility] Medical Records Department [address] [place] [address] H&P Exam - Hospitalist 01/27/23 1126 MR#: [id number] Acct: [id number] Name: [address] Rep #:[id number] : 1950 72 From: Maximilian Kitchen MD [...] to intensive care unit for further management [facility] Medical History Diabetes mellitus type 2 in [...] Sl. Cloudy, Urine pH 7.0, Ur Specific [place] 1.005, Urine Protein 30 H, Urine Glucose [...] 95.3 H, Lymph % (Auto) 3.0 L, Hays % (Auto) 0.7, Eos % (Auto) 0.3, [...] responsive hypotension Charges/Coding Visit Charges Inpatient E&M: 94128 Init Hosp L3 Procedures Hospitalists Procedures: 59157 Advncd Care Plan 30 Min 01/27/23 1211 [...] MD; Dr. Richie Heredia DO ~* Signed [facility] Work Phone: 1(975) 376-971708-15-2022 Miscellaneous Notes* Telephone Encounter - Marium Borrero - 10/06/2021 8:19 AM EDT 1st attempt to contact patient to inform clearance was not met and procedure tomorrow in [place] with Betts had to be cancelled until [...] [facility] NoteHNO ID: [id number] Author: Mary Thomas PA-C Service: ? Author Type: Physician Bath Solution Maker Type: Progress Notes Filed: 09/16/2021 3:45 PM [...] for her chronic medical conditions, and with [facility] for her heart issues, Dr. [...] entered by the nurse and reviewed by or Nursing Notes: Marium Borrero 09/09/2021 2:57 PM [...] content not included)...[facility]07-19-2022 Nurse Note* Marium Borrero - 09/09/2021 2:54 [...] clearance Patient sees Dr. Montiel at the [facility] and sees Dr. Hurley at [facility] Patient is scheduled for both upper and lower scope in [place] with Dr. Betts on 09/23 * Telephone [...] for her chronic medical conditions, and with [facility] for her heart issues, Dr. [...] COVID-19 If You Are Sick Accessible version: https://www.cdc.gov/coronavirus/2019-ncov/vb-xgv-ogl-sick/ktqun-niqv-ytwx.html If you are sick with COVID-19 or [...] Animals if you have questions about pets: https://www.cdc.gov/coronavirus/2019ncov/faq.html#SOATM98czmcqcm Monitor your symptoms. Common symptoms of COVID-19 [...] and need to call 911, notify the accounting machine operator that you have or think you [...] clean your hands with an alcohol-based hand java integration developer that contains at least 60% alcohol. Clean your hands often. Wash your hands often with soap and water for at least 20 seconds. This is especially important after blowing your nose, coughing, or sneezing; going to the bathroom; and before eating or preparing food. Use hand java integration developer if soap and water are not available. Use an alcohol-based hand java integration developer with atleast 60% alcohol, covering all surfaces [...] and water or put them in the mainframe analyst. Clean all high-touch surfaces everyday. Clean and [...] or body fluids on them. Use household program project analyst and disinfectants. Clean the area or item [...] Care 01/15/2021 11:48:52 With:RICHIE HEREDIA DO Address: [phone] When:3-5 days [facility] Evaluation + Plan note Future Appointments Appointment Date:01/21/2021 02:30:00 PM Scheduled Provider:RICHIE HEREDIA DO Location:[facility] Appointment Type:PC Office Procedure OMT Future Scheduled Tests Laboratory* COVID-19 Only (AO) 01/14/21 Radiology* XR Hip Minimum 2 Views Left 11/19/20 * CT Thorax High Resolution w/o Contrast 01/25/20 [facility] Evaluation + Plan note Future Appointments Appointment Date:01/21/2021 12:00:00 PM Scheduled Provider:RICHIE HEREDIA DO Location:[facility] Appointment Type:Telehealth Future Scheduled Tests Laboratory* COVID-19 Only (AO) 01/14/21 Radiology* XR Hip Minimum 2 Views Left 11/19/20 * CT Thorax High Resolution w/o Contrast 01/25/20 [facility] Evaluation + Plan note Future Appointments Appointment Date:05/19/2021 03:30:00 PM Scheduled Provider:RICHIE HEREDIA DO Location:[facility] Appointment Type:PC OV Appointment Date:06/03/2021 02:30:00 PM Scheduled Provider: Location:[facility] Appointment Type:BD Bone Density DEXA Axial Skeleton Appointment Date:06/03/2021 03:30:00 PM Scheduled Provider: Location:[facility] Appointment Type:MA Mammogram Screening Bilateral w/ Glenn Appointment Date:07/11/2021 03:30:00 PM Scheduled Provider:RICHIE HEREDIA DO [facility] Appoint[facility] Type:PC Wellness Medicare Future Scheduled Tests Laboratory* COVID-19 Only (AO) 01/14/21 Radiology* BD Bone Density DEXA Axial Skeleton 06/03/21 * XR Hip Minimum 2 Views Left 11/19/20 * MA Mammo Screening Bilateral w/ Glenn 06/03/21 [facility] Evaluation + Plan note Future Appointments Appointment Date:06/18/2021 02:30:00 PM Scheduled Provider:RICHIE HEREDIA DO [facility] Appointment Type:PC OV Appointment Date:07/11/2021 03:30:00 PM Scheduled Provider:RICHIE HEREDIA DO Location:[facility] Appointment Type:PC Wellness Medicare Future Scheduled Tests Laboratory* COVID-19 Only (AO) 01/14/21 Radiology* BD Bone Density DEXA Axial Skeleton 06/03/21 * XR Hip Minimum 2 Views Left 11/19/20 [facility] Evaluation + Plan note Future Appointments Appointment Date:09/04/2021 02:00:00 PM Scheduled Provider:RICHIE HEREDIA DO [facility] Appointment Type:PC OV Appointment Date:10/24/2021 02:00:00 PM Scheduled Provider: Location:[facility] Appointment Type:COVID AMB VACCINE Future Scheduled Tests Laboratory* COVID-19 Only (AO) 01/14/21 Radiology* XR Hip Minimum 2 Views Left 11/19/20 [facility] Evaluation + Plan note Future Appointments Appointment Date:04/23/2022 03:30:00 PM Scheduled Provider:RICHIE HEREDIA DO [facility] Appointment Type:PC OV Appointment Date:05/27/2022 04:00:00 PM Scheduled Provider:RICHIE HEREDIA DO Location:[facility] Appointment Type:PC OV Future Scheduled Tests Radiology* XR Chest 2 Views (PA & Lateral) 04/08/22 [facility] Evaluation + Plan note Future Appointments Appointment Date:05/27/2022 04:00:00 PM Scheduled Provider:RICHIE HEREDIA DO Location:[facility] Appointment Type:PC OV Future Scheduled Tests Radiology* XR Chest 2 Views (PA & Lateral) 04/08/22 [facility] Evaluation + Plan note Future Appointments Appointment Date:10/20/2022 03:30:00 PM Scheduled Provider: Location:[facility] Appointment Type:VL AOH - Venous US/Doppler One Leg (for Appointment Date:11/13/2022 04:00:00 PM Scheduled Provider:RICHIE HEREDIA DO Location:[facility] Appointment Type:PC OV Appointment Date:01/20/2023 04:00:00 PM Scheduled Provider:RICHIE HEREDIA DO Location:[facility] Appointment Type:PC OV Future Scheduled Tests Radiology* XR Chest 2 Views (PA & Lateral) 04/08/22 [facility] Evaluation + Plan note Future Appointments Appointment Date:04/16/2023 03:00:00 PM Scheduled Provider:RICHIE HEREDIA DO Location:[facility] Appointment Type:PC OV Future Scheduled Tests Laboratory* Basic Metabolic Panel 01/26/23 * Urinalysis 03/03/23 * Thyroid Stimulating Hormone 01/26/23 * Free T4 01/26/23 * Vitamin B12 Level 01/26/23 * Urine Culture 03/03/23 * Albumin/Creatinine Ratio, Random Urine 12/21/22 Radiology* NM Myocardial Spect Rest/Stress 12/21/22 * XR Chest 2 Views (PA & Lateral) 02/09/23 * XR Chest 2 Views (PA & Lateral) 04/08/22 [facility] Evaluation + Plan note Future Appointments Appointment Date:04/16/2023 03:00:00 PM Scheduled Provider:RICHIE HEREDIA DO Location:[facility] Appointment Type:PC OV Diagnostic Tests Pending * Urine Culture 04/13/23 Future Scheduled Tests Laboratory* Basic Metabolic Panel 01/26/23 * Urinalysis 03/03/23 * Thyroid Stimulating Hormone 01/26/23 * Free T4 01/26/23 * Vitamin B12 Level 01/26/23 * Urine Culture 03/03/23 * Albumin/Creatinine Ratio, Random Urine 12/21/22 Radiology* NM Myocardial Spect Rest/Stress 12/21/22 * XR Chest 2 Views (PA & Lateral) 02/09/23 [facility] Evaluation + Plan note Future Appointments Appointment Date:09/01/2023 03:30:00 PM Scheduled Provider: Location:[facility] Appointment Type:MRI Brain w/o Contrast Appointment Date:09/09/2023 04:00:00 PM Scheduled Provider:RICHIE HEREDIA DO Location:[facility] Appointment Type:PC OV Appointment Date:10/11/2023 04:00:00 PM Scheduled Provider:RICHIE HEREDIA DO Location:[facility] Appointment Type:PC OV Appointment Date:11/12/2023 04:00:00 PM Scheduled Provider:RICHIE HEREDIA DO Location:[facility] Appointment Type:PC Wellness Medicare Appointment Date:12/08/2023 04:30:00 PM Scheduled Provider:RICHIE HEREDIA DO [facility] Appointment Type:PC OV Future Scheduled Tests Radiology* MRI Brain w/o Contrast 09/01/23 * NM Myocardial Spect Rest/Stress 12/21/22 * XR Chest 2 Views (PA & Lateral) 02/09/23 [facility] Evaluation + Plan note Future Appointments Appointment Date:12/29/2023 03:30:00 PM Scheduled Provider:RICHIE HEREDIA DO Location:[facility] Appointment Type:PC OV Future Scheduled Tests Laboratory* Basic Metabolic Panel 11/29/23 Radiology* MRI Brain w/o Contrast 09/01/23 * NM Myocardial Spect Rest/Stress 12/21/22 * XR Chest 2 Views (PA & Lateral) 02/09/23 * XR Hip Bilateral w/Pelvis Minimum 5 Views 11/25/23 * XR Spine Lumbar W/Obliques 4 Views 11/25/23 [facility] Evaluation + Plan note Future Appointments Appointment Date:03/30/2024 03:30:00 PM Scheduled Provider:RICHIE HEREDIA DO [facility] Appointment Type:PC OV Controlled Medication Future Scheduled [...] XR Spine Lumbar W/Obliques 4 Views 11/25/23 [facility] Evaluation + Plan note Future Appointments Appointment Date:07/03/2024 02:30:00 PM Scheduled Provider:RICHIE HEREDIA DO Location:[facility] Appointment Type:PC OV Future Scheduled Tests [...] XR Spine Lumbar W/Obliques 4 Views 11/25/23 [facility] Evaluation + Plan note Future Appointments Appointment Date:07/03/2024 02:30:00 PM Scheduled Provider:RICHIE HEREDIA DO Location:[facility] Appointment Type: OV Future Scheduled Tests [...] XR Spine Lumbar W/Obliques 4 Views 11/25/23 [facility] Evaluation + Plan note Future Appointments Appointment Date:08/31/2024 11:00:00 AM Scheduled Provider: [facility] Appointment Type:PC Nurse Lab Appointment Date:09/20/2024 02:30:00 PM Scheduled Provider:RICHIE HEREDIA DO [facility] Appointment Type: OV Follow Up Future Scheduled [...] Deep Aerobe/Anaerobe w Gram Stain 02/25/24 * [facility] Send out (Blood Specimens) 07/03/24 Radiology* [...] XR Spine Lumbar W/Obliques 4 Views 11/25/23 [facility] Evaluation + Plan note Future Appointments Appointment Date:09/20/2024 02:30:00 PM Scheduled Provider:RICHIE HEREDIA DO Location:[facility] Appointment Type:PC OV Follow Up Diagnostic [...] XR Spine Lumbar W/Obliques 4 Views 11/25/23 [facility] Evaluation noteNo assessment information available [facility] Work Phone: Evaluation note* Diagnosis Screening for colon cancer- Primary Special screening for malignant neoplasms, colon Dysphagia, unspecified type History of tobacco use Personal history of tobacco use, presenting hazards to health documented in this [facility]* Diagnosis Encounter for screening for malignant neoplasm of colon- Primary Special screening for malignant neoplasms, colon Other dysphagia History of tobacco use Personal history of tobacco use, presenting hazards to health Dysphagia, unspecified type History of tobacco use Personal history of tobacco use, presenting hazards to health Screening for colon cancer Special screening for malignant neoplasms, colon documented in this [facility]* Diagnosis Onset Date Resolution Status Acute febrile illness acute Altered mental status acute Elevated troponin acute Hypoxemia acute NSTEMI (non-ST elevated myocardial infarction) acute Sepsis acute 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 HTN (hypertension) chronic Morbid obesity chronic Obstructive sleep apnea section repairer tasha Paroxysmal atrial fibrillation chronic [facility] Work Phone: Evaluation note* Diagnosis Onset Date Resolution Status Hypoxemia acute NSTEMI (non-ST elevated myocardial infarction) acute 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 HTN (hypertension) chronic Morbid obesity chronic Obstructive sleep apnea section repairer tasha Paroxysmal atrial fibrillation chronic Acute febrile illness resolv ed Altered mental status resolv ed Elevated troponin resolved Sepsis resolved [facility] Work Phone: Hospital course Narrative No data available for this section [facility] Hospital Discharge instructions No data available for this section [facility] Progress note No data available for this section [facility] Reason for referral (narrative)* Outpatient Procedure (Routine) - Pending Review Specialty Diagnoses / Procedures Referred By Britney davila Referred To Contact [facility] Diagnoses Dysphagia, unspecified type History of tobacco use Procedures EGD DIAGNOSTIC EGD DIAGNOSTIC EGD DIAGNOSTIC ESOPHAGOGASTRODUODENOSC OPY TRANSORAL DIAGNOSTIC ESOPHAGOGASTRODUODENOSC OPY TRANSORAL DIAGNOSTIC ESOPHAGOGASTRODUODENOSC OPY TRANSORAL DIAGNOSTIC Mary Thomas PA-C [address] [place] [address] [facility] [address] [place] [address] Referral ID Status Reason Start Date Expiration Date Visits Requested Visits Authorized [id number] Pending Review Auto-Generat ed Referral 09/09/2021 09/09/2022 [...] PFRMD Mary Thomas PA-C [address] [place] [address] [facility] [address] Referral ID Status Reason Start Date Expiration Date Visits Requested Visits Authorized [id number] Pending Review Auto-Generat ed Referral 09/09/2021 09/09/2022 1 1 [facility] for referral (narrative)No reason for referral [facility] Work Phone: Chief Complaint and Reason [...] No May 23, 2021 8:44pm Power of Center Machine Operator No May 23 8:44pm Advance Directive Response Recorded Date/ Time Advance Directives No March 06, 2017 10:46pm Living Will No May 23, 2021 7:44pm Power of Center Machine Operator No May 23 2 7:44pm Advance Directive Response Recorded Date/ Time Advance Directives No March 06, 2017 11:46pm Living Will No October 20 3 8:28pm Power of Center Machine Operator No October 20 023 8:28pm Advance Directive Response Recorded Date/ Time Advance Directives No March 06, 2017 10:46pm Living Will No January 27 5:33pm Power of Center Machine Operator No January 27, 2023 5:33pm Advance Directive Response Recorded Date/ Time Living Will Yes March 09 11:32pm Do you have a Healthcare Pow er of Center Machine Operator? Yes March 09, 2024 11:32pm Name of Medical Power of Center Machine Operator AMIE SQUIRES [place] March 09, 2024 11:32pm Living Will No February 20 11:00pm Do you have a Healthcare Pow er of Center Machine Operator? No February 21, 2024 11:00pm Living Will Yes June 01, 2024 10:45am Do you have a Healthcare Pow er of Center Machine Operator? Yes June 01, 2024 10:45am Name of Medical Power of Center Machine Operator Amie Squires [place] June 01, 2024 10:45am [...] Care Team (unrecognized sect ion and content) Hr Operations Advisor Relationship Specialty Start Date End Date Richie Heredia IV, MD [address] [place] [id number] PCP - General Family Practice 07/25/21 Hr Operations Advisor Relationship Specialty Start Date End Date Richie Heredia IV, MD [address] [place] [address] [id number] PCP - General Family Practice 07/25/21 Hr Operations Advisor Relationship Specialty Start Date End Date Richie Heredia IV, MD [address] [place] [address] [id number] PCP - General Family Practice 07/25/21 Team [...] Cantu MD Other Provider Active Maeve Parra RAILROAD SURVEYOR, RAILROAD SURVEYOR-C Other Provider Active Dr. Maximilian Kitchen MD [...] MD Other Provider Active Maeve Parra NP, RAILROAD SURVEYOR-C Other Provider Active Dr. Maximilian Kitchen MD [...] Personnel Name: RICHIE HEREDIA DO Address: Address: [address] [place] [address] Care Team Personnel Name: RICHIE HEREDIA DO Position: P4 Physician - Primary Care Member Role: Primary Care Physician Address: Address: [address] [place] [address] Care Team Related Persons Name: AMIE AGUIRRE Care Team Personnel Name: RICHIE HEREDIA DO Position: P4 Physician - Primary Care Member Role: Primary Care Physician Address: Address: [address] [place] [address] Care Team Related Persons Name: AMIE AGUIRRE Care Team Personnel Name: RICHIE HEREDIA DO Position: P4 Physician - Primary Care Member Role: Primary Care Physician Address: Address: [address] [place] [address] Care Team Related Persons Name: AMIE AGUIRRE [...] Richie Heredia IV, MD [address] [place] [address] Mary Thomas PA-C [address] [place] [address] Referral ID Status Reason Start Date Expiration Date Visits Re quested Visits Authorized [id number] Closed 09/09/2021 02/21/2022 1 1 Reason Comments 10/07 colon/egd lodi INFORMATION SOURCE (unrecogn ized section and content) DATE CREATED AUTHOR 11/19/2021 [facility] DATE CREATED AUTHOR AUTHOR'S ORGANIZ ATION 09/06/2023 [facility] DATE CREATED AUTHOR AUTHOR'S ORGANIZ ATION 06/07/[address] [facility] DATE CREATED AUTHOR AUTHOR'S ORGANIZ ATION 09/10/2024 [facility] FOR RECORDS PERTAINING TO PATIENTS WHO [...] BE BASED ON THE PRIMARY CLINICAL RECORDS. [employer] [facility]. provides no warranty or guarantee of the accuracy or completeness of information in this document.
[2024-12-13 06:30] LABS: Hematocrit 41.4 % (37-47); Hemoglobin 13.5 g/dL (12.0-15.0); Immature Granulocytes Count 0.080 X10^3/uL (0.0-0.0); Mean Corp Hgb Conc 32.6 g/dL (32-36); Mean Corpuscular Volume 94.7 fL (81-99); Mean Platelet Vol. 12.2 fl (6.2-12.0); NRBC Flagged by Analyzer 0 % (0-5); POSITIVE MORPHOLOGY YES; Platelet Count 316 K/mm3 (150-450); RBC Distribution Width CV 14.4 % (11.6-14.6); RBC Distribution Width SD 49.9 fl (35.1-43.9); Red Blood Count 4.37 M/mm3 (4.2-5.4); White Blood Count 12.7 K/mm3 (4.4-11.0)
[2024-12-13 06:42] LABS: Differential Indicated SCAN CRITERIA MET
[2024-12-13] MEDS: Budesonide Respules 0.5 MG/2 ML AMPUL.NEB. INHALATION ×2 (07:00→19:42)
[2024-12-13 07:10] LABS: Albumin, Serum 3.8 g/dL (3.4-4.8); BUN 24 mg/dL (4-19); BUN/Creat Ratio 15.4 RATIO (10-20); Estimated Creatinine Clearance 31.51 ml/min (50-250); Glucose 105 mg/dL (70-99)
[2024-12-13 07:11] LABS: AST(SGOT) 22 U/L (<=31); Alanine Aminotransfer ALT/SGPT 19 U/L (<=34); Alkaline Phosphatase 107 U/L (35-104); Anion Gap 12 (5-15); Calcium,Total 9.0 mg/dL (7.6-11.0); Carbon Dioxide 28.0 mmol/L (21.0-32.0); Chloride 99 mmol/L (98-108); Globulin 3.2 g/dL (2.2-4.2); Magnesium 2.1 mg/dL (1.5-2.2); Potassium 3.2 mmol/L (3.3-5.1)
--- NOTE | 2024-12-13 07:53 | PN.HOSP_ITS ---
Reason for Visit Chief Complaint: nausea, inability to tolerate PO Subjective Subjective Feeling better, but still having abdominal pain. Objective Data Objective Data Vital Signs: Vital Signs Temp Pulse Resp BP Pulse Ox O2 Del Method O2 Flow Rate 36.9 C 88 16 115/78 92 Nasal Cannula 3 12/13/24 06:46 12/13/24 07:00 12/13/24 07:00 12/13/24 06:46 12/13/24 07:00 12/13/24 07:00 12/13/24 07:00 Oxygen Flow Rate (L/min) 3 Oxygen Delivery Method Nasal Cannula Weight: 87.1 kg Body Mass Index (BMI) 38.7 Intake & Output: Intake and Output for Last 24 Hours 12/11/24 12/12/24 12/13/24 23:59 23:59 23:59 Intake Total 1000 / 1000 Balance 1000 / 1000 Lab / Micro Data 12/13/24 06:12 12/13/24 06:12 Labs: Laboratory Results - last 24 hr 12/12/24 16:02: WBC 14.2 H, RBC 4.93, Hgb 15.1 H, Hct 46.1, MCV 93.5, MCH 30.6, MCHC 32.8, RDW Std Deviation 48.7 H, RDW Coeff of Penny 14.2, Plt Count 336, MPV 12.4 H, Immature Gran % (Auto) 0.500, Neut % (Auto) 74.2 H, Lymph % (Auto) 16.1 L, [facility] % (Auto) 8.0, Eos % (Auto) 0.5, Baso % (Auto) 0.7, Absolute Neuts (auto) 10.5 H, Absolute Lymphs (auto) 2.28, Nucleated RBC % 0, Differential Comment SCANNED, Platelet Estimate ADEQUATE, Sodium 138, Potassium 3.4, Chloride 94 L, Carbon Dioxide 30.1, Anion Gap 14, BUN 26 H, Creatinine 1.61 H, Estim Creat Clear Calc 31.43 L, Est GFR (MDRD) Non-Af 34 L, BUN/Creatinine Ratio 16.0, G lucose 152 H, Calcium 10.0, Total Bilirubin 0.49, AST 23, ALT 22, Alkaline Phosphatase 122 H, Total Protein 7.8, Albumin 4.2, Globulin 3.6, Albumin/Globulin Ratio 1.2, Lipase 15 12/12/24 16:23: Lactic Acid 1.5 12/12/24 16:33: Urine Color Yellow, Urine Clarity Sl. Cloudy, Urine pH 6.0, Ur Specific [place] 1.010, Urine Protein 15 H, Urine Glucose (UA) 1000 H, Urine Ketones 5 H, Urine Occult Blood Negative, Urine Nitrite Negative, Urine Bilirubin Negative, Urine Urobilinogen Normal, Ur Leukocyte Esterase Negative, Urine RBC 0-5 SEEN, Urine WBC 0-5 SEEN, Ur Squamous Epith Cells 5-10 SEEN, Urine Bacteria 1+, Urine Mucus 0 SEEN 12/12/24 22:20: POC Glucose 123 H 12/13/24 06:12: WBC 12.7 H, RBC 4.37, Hgb 13.5, Hct 41.4, MCV 94.7, MCH 30.9, MCHC 32.6, RDW Std Deviation 49.9 H, RDW Coeff of Penny 14.4, Plt Count 316, MPV 12.2 H, Immature Gran % (Auto) 0.600, Neut % (Auto) 66.2, Lymph % (Auto) 23.2, [facility] % (Auto) 7.9, Eos % (Auto) 1.3, Baso % (Auto) 0.8, Absolute Neuts (auto) 8.4 H, Absolute Lymphs (auto) 2.94, Nucleated RBC % 0, Sodium 139, Potassium 3.2 L, Chloride 99, Carbon Dioxide 28.0, Anion Gap 12, BUN 24 H, Creatinine 1.56 H, Estim Creat Clear Calc 31.51 L, Est GFR (MDRD) Non-Af 35 L, BUN/Creatinine Ratio 15.4, Glucose 105 H, Calcium 9.0, Magnesium 2.1, Total Bilirubin 0.42, AST 22, ALT 19, Alkaline Phosphatase 107 H, Total Protein 6.9, Albumin 3.8, Globulin 3.2, Albumin/Globulin Ratio 1.2 12/13/24 06:45: POC Glucose 104 Micro: Microbiology 12/12/24 21:35 Mucosa - Nasopharyngeal Respiratory Panel (PCR) - Final Radiography Diagnostic Testing: Radiology Impression Abdomen/Pelvis CT 12/12/24 16:04 IMPRESSION: 1. Left renal mass with central radiating hypodense areas, possibly an oncocytoma with central scar or renal cell carcinoma with central necrosis. 2. Dilated small bowel loops with small and large bowel air-fluid levels. Findings likely represent acute enterocolitis, an ileus or other diarrheal illness. 3. Colonic diverticulosis without signs of diverticulitis. Reading Location: [facility] Physical Exam Const alert and no apparent distress HEENT head/scalp atraumatic and moist oral mucous membranes Resp normal respiratory effort, no retractions, no use of accessory muscles and clear to auscultation bilaterally Cardio regular rate, regular rhythm, S1 normal heart sound and S2 normal heart sound GI normal to inspection, nondistended, normoactive bowel sounds, soft to palpation, non-tender and non-distended Assessment & Plan Assessment/Plan (1) Nausea & vomiting: (2) Left renal mass: PLAN: Plan Nausea/Vomiting/Diarrhea * acute enterocolitis v an ileus v other * Patient had slightly more formed stool today with no blood in stool and is afebrile however unable to treat on an outpatient basis due to inability to tolerate p.o. given her nausea and vomiting so will admit for supportive care, presently do not see an indication for antibiotics however * IV fluids, antiemetics * Hold home bumetanide * Full liquid diet, advance as tolerated * Enteric panel pending. C diff not collected yet (too small sample), though it seems unlikely that this is Cdiff. * Monitor daily weights and I's and O's Left renal lesion * Left renal mass with central radiating hypodense areas, possibly an oncocytoma with central scar or renal cell carcinoma with central necrosis. * Reported size 2.1 x 2 x 2.3 cm * Discussed with patient that this could be benign versus cancerous and that she will need to follow-up with urology on discharge * Will need to add urology referral when patient is discharged Chronic conditions * CKD stage III b-Appears to be at baseline-Avoid nephrotoxic agents-Daily BMPs * Paroxysmal Atrial Fibrillation-Rate control: Metoprolol-Anticoagulation: Eliquis * Hypothyroidism-Continue Synthroid * Restless leg syndrome-continue patient's home medication regimen * Hx COPD-Continue home inhalers-Incentive spirometer * Depression/anxiety-Continue home medications * Tobacco use-Advise cessation-Nicotine replacement available if desired * Type 2 diabetes mellitus-Glucose checks and sliding scale insulin-Hold home metformin * Morbid obesity-BMI documented as 40.8 kg/m² at time of admission-Complicates treatment, prognosis, outcomes-Recommend weight loss and lifestyle changes DVT ppx: Not indicated, patient on full dose Eliquis Charges/Coding Visit Charges Inpatient E&M: 41310 Subs Hosp L2
[2024-12-13] MEDS: APIXABAN 5 MG TABLET PO ×2 (09:46→22:16)
[2024-12-13] MEDS: Nicotine (PBKC) 14 MG Patch TD (09:46)
[2024-12-13] MEDS: Metoprolol(XL)Succ 25 MG Tablet PO (09:46)
[2024-12-13] MEDS: 0.9% Normal Saline (1000mL) 1,000 ML 75 ML IV (09:46)
[2024-12-13] MEDS: Potassium Chloride Oral Tablet 20 MEQ 40 MEQ PO (09:51)
[2024-12-13] MEDS: Aspirin E.C. 81 MG Tablet PO (09:51)
[2024-12-13] MEDS: FLU VACCINE HIGH DOSE 25-26(65YR UP) 180 MCG/0.5 ML SYRINGE IM (11:00)
--- NOTE | 2024-12-13 14:37 | CHAPLAIN ---
Type of Pastoral Visit _x__ Initial Visit ___ Follow-up Visit ___ On-call Visit ___ General Patient Visit ___ Spiritual Assessment ___ Family Conference ___ Bereavement ___ Rapid Response ___ Code Blue ___ Other (describe below) Pastoral Care Referral From _x__ Patient ___ Family ___ Nurse ___ Physician ___ Counter Installer ___ Field Rep ___ Other (describe below) Sacrament/Intervention _x__ Active listening ___ Anointing ___ Synagogue ___ Bereavement ___ Communion _x__ Jud exploration ___ _x__ Life review _x__ Prayer ___ Reconciliation ___ Sacrament of Sick _x__ Supportive presence ___ Wedding ___ Other (describe below) Pastoral Comments patient is welcoming and is asked about her life and situation; pt gives lots of background and review of her life; pt has cared for others in her family [place] but now has limited support for herself; pt just learned of a new diagnosis and is processing what this will mean for her; pt is able to state that most of her family has of cancer and thus "I know what this is and it is not a real surprise"; pt was able to articulate some feelings and concerns about her future; pt has raised the children that were in her life and that is satisfying for her; pt used to attend a local synagogue but was disappointed with some people in the synagogue and has not gone back; pt may think about reconnecting for more support in this difficult time; pt is welcoming of prayer support and presence
--- NOTE | 2024-12-13 14:44 | CASEMGMT ---
KWAKU LOW Assessment Face to Face with patient for initial transition planning/care coordination assessment. KWAKU LOW introduced self and role at [facility], pt voices understanding. Pt is A&Ox4 and is resting comfortably in bed and is calm. Pt's niece at the bedside. Care providers, pharmacy, and demographics verified. Admitting dx: Left Renal mass, Nausea, Dizziness PCP: Jesse Curran Specialists: Mei (Pulmonary) Preferred Pharmacy: [facility] Insurance: [facility] DUAL COMPLETE, [facility] Prescription Benefit: Yes LNOK: Amie (Niece), Rose Queen (Friend) Living Arrangements: Pt lives with her friend, Rose, in a 2 story home with 6 steps to enter with no handrails or grab bars. Pt states that Rose assists her into the home ADLs/IADLs: Pt states that she requires some assistance at home and that she has support through her friend and niece. Pt states that she was recently active with [employer] through [facility]. However, pt states that this has been revoked due to moving from [place] to [place]. Pt would appreciate a list of Pvt Duty FASHION [employer]. Pt states that she plans to move back in with her Niece in [place] by the end of the year. Transportation: Niece, friend DME: Home oxygen through [facility]. Pt states that she has a concentrator, portable tanks, pulse ox, and inhaler. Pt states that someone can bring in portability at [place]. Pt states that she still has a BGM with sufficient supplies. Pt also has a rollator, hospital bed, shower chair, and shower grab bars. HHC/SNF: Reports hx with [facility] HH and hx @ [facility] Pt’s goal: Home with HHC Plan: Anticipate home with friend with skilled HHC, pvt duty HH, follow for updated oxygen needs. Per PT, pt is currently at baseline functional status. However, pt states that she would appreciate skilled HHC being set up. Pt also would like a list of pvt duty F[employer]. When offered skilled HHC list, pt states that she is not picky and does not care who is able to accept her and come out to the home. Pt denies further questions or concerns at this time. Report given to SUNLI AMES CM and plans to tiffanie/lewis Mccarty RN, CM
--- NOTE | 2024-12-13 15:01 | CASEMGMT ---
TC to [facility] to verify oxygen rx. Noted no therapy recommended for PT and OT. Requested dc assistant fitness manager provide pt with a list of [facility] and obtain choices for referrals. Gave dc assistant fitness manager private duty list to also provide to pt at same time.
--- NOTE | 2024-12-13 15:22 | CASEMGMT ---
Addendum entered by Kira Krause 12/13/24 16:10: [facility] declined and [facility] did not respond. Wade Larson accepted and is foc. RN CM updated. Kira Krause DC Planning Asst. Original Note: Discharge Planning A list of HH providers including quality and resource use data and consistent with the patient's preferred geographic region, medical needs, and insurance network was created in [facility] Guide. This list was provided to the patient who requested that referrals be sent to all and was agreeable to mass referral being sent if choices on list decline. HH referral sent via [facility] to [facility], [facility], and [facility]. Kira Krause, Discharge Planning Asst.
[2024-12-13] MEDS: MELATONIN 10 MG TABLET PO (22:02)
[2024-12-13] MEDS: 0.9% Saline Lock 10 ML Syringe IV (22:02)
[2024-12-14] VITALS (10 sets, daily range): BP systolic 112–133; BP diastolic 49–97; PULSE 70–92; RESP 14–18; TEMP 36.2–36.8; O2SAT 97–100; BMI 42.7
[2024-12-14 06:15] LABS: Hematocrit 38.5 % (37-47); Hemoglobin 12.3 g/dL (12.0-15.0); Immature Granulocytes Count 0.030 X10^3/uL (0.0-0.0); Mean Corp Hgb Conc 31.9 g/dL (32-36); Mean Corpuscular Volume 97.0 fL (81-99); Mean Platelet Vol. 12.5 fl (6.2-12.0); NRBC Flagged by Analyzer 0 % (0-5); Platelet Count 228 K/mm3 (150-450); RBC Distribution Width CV 14.3 % (11.6-14.6); RBC Distribution Width SD 51.7 fl (35.1-43.9); Red Blood Count 3.97 M/mm3 (4.2-5.4); White Blood Count 8.6 K/mm3 (4.4-11.0)
[2024-12-14 06:54] LABS: Anion Gap 10 (5-15); BUN 18 mg/dL (4-19); BUN/Creat Ratio 14.0 RATIO (10-20); Calcium,Total 8.3 mg/dL (7.6-11.0); Carbon Dioxide 26.4 mmol/L (21.0-32.0); Chloride 102 mmol/L (98-108); Estimated Creatinine Clearance 39.69 ml/min (50-250); Glucose 115 mg/dL (70-99); Potassium 3.7 mmol/L (3.3-5.1)
[2024-12-14] MEDS: Budesonide Respules 0.5 MG/2 ML AMPUL.NEB. INHALATION ×2 (07:23→19:59)
--- NOTE | 2024-12-14 08:20 | PN.HOSP_ITS ---
Reason for Visit Chief Complaint: nausea, inability to tolerate PO Subjective Subjective Feeling better. Tolerating full liquid diets. Objective Data Objective Data Vital Signs: Vital Signs Temp Pulse Resp BP Pulse Ox O2 Del Method O2 Flow Rate 36.2 C L 72 16 112/49 L 99 Nasal Cannula 3 12/14/24 04:26 12/14/24 07:24 12/14/24 07:24 12/14/24 04:26 12/14/24 04:26 12/14/24 04:27 12/14/24 04:27 Oxygen Flow Rate (L/min) 3 Oxygen Delivery Method Nasal Cannula Weight: 96.1 kg Body Mass Index (BMI) 42.7 Intake & Output: Intake and Output for Last 24 Hours 12/12/24 12/13/24 12/14/24 23:59 23:59 23:59 Intake Total 1000 / 1000 2348.75 / 2598.75 250 / 250 Balance 1000 / 1000 2348.75 / 2598.75 250 / 250 Lab / Micro Data 12/14/24 05:45 12/14/24 05:45 Labs: Laboratory Results - last 24 hr 12/13/24 12:23: POC Glucose 146 H 12/13/24 17:00: POC Glucose 144 H 12/13/24 22:03: POC Glucose 92 12/14/24 05:45: WBC 8.6, RBC 3.97 L, Hgb 12.3, Hct 38.5, MCV 97.0, MCH 31.0, M CHC 31.9 L, RDW Std Deviation 51.7 H, RDW Coeff of Penny 14.3, Plt Count 228, MPV 12.5 H, Immature Gran % (Auto) 0.300, Neut % (Auto) 61.1, Lymph % (Auto) 28.4, [facility] % (Auto) 7.2, Eos % (Auto) 2.2, Baso % (Auto) 0.8, Absolute Neuts (auto) 5.2, Absolute Lymphs (auto) 2.44, Nucleated RBC % 0, Sodium 138, Potassium 3.7, Chloride 102, Carbon Dioxide 26.4, Anion Gap 10, BUN 18, Creatinine 1.31 H, E stim Creat Clear Calc 39.69 L, Est GFR (MDRD) Non-Af 43 L, BUN/Creatinine Ratio 14.0, Glucose 115 H, Calcium 8.3 Micro: Microbiology 12/13/24 22:10 Stool Clostridioides difficile (PCR) - Final 12/12/24 21:35 Mucosa - Nasopharyngeal Respiratory Panel (PCR) - Final Physical Exam Const alert and no apparent distress HEENT head/scalp atraumatic and moist oral mucous membranes Resp normal respiratory effort and no retractions Cardio regular rate, regular rhythm, S1 normal heart sound and S2 normal heart sound GI normal to inspection, nondistended, normoactive bowel sounds, soft to palpation, non-tender and non-distended Extremity normal to inspection and full ROM Neuro Sensorium / Orientation: awake and alert Assessment & Plan Assessment/Plan (1) Nausea & vomiting: (2) Left renal mass: PLAN: Plan Nausea/Vomiting/Diarrhea * acute enterocolitis v an ileus v other * Patient had slightly more formed stool today with no blood in stool and is afebrile however unable to treat on an outpatient basis due to inability to tolerate p.o. given her nausea and vomiting so will admit for supportive care, presently do not see an indication for antibiotics however * IV fluids, antiemetics * Hold home bumetanide * Tolerating full liquid diet, advance diet * Enteric panel pending. C diff not collected yet (too small sample), though it seems unlikely that this is Cdiff. * Monitor daily weights and I's and O's Left renal lesion * Left renal mass with central radiating hypodense areas, possibly an oncocytoma with central scar or renal cell carcinoma with central necrosis. * Reported size 2.1 x 2 x 2.3 cm * Discussed with patient that this could be benign versus cancerous and that she will need to follow-up with urology on discharge * Will need to add urology referral when patient is discharged Chronic conditions * CKD stage III b-Appears to be at baseline-Avoid nephrotoxic agents-Daily BMPs * Paroxysmal Atrial Fibrillation-Rate control: Metoprolol-Anticoagulation: Eliquis * Hypothyroidism-Continue Synthroid * Restless leg syndrome-continue patient's home medication regimen * Hx COPD-Continue home inhalers-Incentive spirometer * Depression/anxiety-Continue home medications * Tobacco use-Advise cessation-Nicotine replacement available if desired * Type 2 diabetes mellitus-Glucose checks and sliding scale insulin-Hold home metformin * Morbid obesity-BMI documented as 40.8 kg/m² at time of admission-Complicates treatment, prognosis, outcomes-Recommend weight loss and lifestyle changes DVT ppx: Not indicated, patient on full dose Eliquis Charges/Coding Visit Charges Inpatient E&M: 02928 Subs Hosp L2
[2024-12-14] MEDS: Nicotine (PBKC) 14 MG Patch TD (10:15)
[2024-12-14] MEDS: Metoprolol(XL)Succ 25 MG Tablet PO (10:15)
[2024-12-14] MEDS: Aspirin E.C. 81 MG Tablet PO (10:15)
[2024-12-14] MEDS: APIXABAN 5 MG TABLET PO ×2 (10:16→22:24)
--- NOTE | 2024-12-14 12:16 | CASEMGMT ---
Discharge Planning Pt made statements to nursing that brought question as to where pt would be residing after discharge. This content writer was able to clarify with pt that she would discharge to her friends house on spring in [place]. Kira Krause DC Planning Asst.
[2024-12-14] MEDS: 0.9% Saline Lock 10 ML Syringe IV (15:03)
[2024-12-14] MEDS: MELATONIN 10 MG TABLET PO (22:24)
[2024-12-15 05:00] VITALS: BP 122/54; PULSE 71; RESP 16; TEMP 36.4; O2SAT 100
[2024-12-15] MEDS: 0.9% Saline Lock 10 ML Syringe IV (05:05)
[2024-12-15 06:00] VITALS: BMI 42.6
[2024-12-15] MEDS: Budesonide Respules 0.5 MG/2 ML AMPUL.NEB. INHALATION (07:03)
[2024-12-15 07:04] VITALS: PULSE 74; RESP 16; O2SAT 95
--- NOTE | 2024-12-15 07:40 | PN.HOSP_ITS ---
Reason for Visit Chief Complaint: nausea, inability to tolerate PO Subjective Subjective Feeling better. Tolerating diet. Objective Data Objective Data Vital Signs: Vital Signs Temp Pulse Resp BP Pulse Ox O2 Del Method O2 Flow Rate 36.4 C L 74 16 122/54 H 95 Nasal Cannula 2 12/15/24 05:00 12/15/24 07:04 12/15/24 07:04 12/15/24 05:00 12/15/24 07:04 12/15/24 07:04 12/15/24 07:04 Oxygen Flow Rate (L/min) 2 Oxygen Delivery Method Nasal Cannula Weight: 95.8 kg Body Mass Index (BMI) 42.6 Intake & Output: Intake and Output for Last 24 Hours 12/13/24 12/14/24 12/15/24 23:59 23:59 23:59 Intake Total 2348.75 / 2598.75 2691.25 / 2941.25 450 / 450 Balance 2348.75 / 2598.75 2691.25 / 2941.25 450 / 450 Lab / Micro Data 12/14/24 05:45 12/14/24 05:45 Labs: Laboratory Results - last 24 hr 12/14/24 12:18: POC Glucose 170 H 12/14/24 16:59: POC Glucose 101 12/15/24 06:18: POC Glucose 93 Micro: Microbiology 12/13/24 22:10 Stool Clostridioides difficile (PCR) - Final 12/12/24 21:35 Mucosa - Nasopharyngeal Respiratory Panel (PCR) - Final Physical Exam Const alert and no apparent distress HEENT head/scalp atraumatic and moist oral mucous membranes Resp normal respiratory effort, no retractions, no use of accessory muscles and clear to auscultation bilaterally Cardio regular rate, regular rhythm, S1 normal heart sound and S2 normal heart sound GI normal to inspection, nondistended, normoactive bowel sounds, soft to palpation and non-tender Assessment & Plan Assessment/Plan (1) Nausea & vomiting: (2) Left renal mass: PLAN: Plan Nausea/Vomiting/Diarrhea * resolved * acute enterocolitis v an ileus v other * Patient had slightly more formed stool today with no blood in stool and is afebrile however unable to treat on an outpatient basis due to inability to tolerate p.o. given her nausea and vomiting so will admit for supportive care, presently do not see an indication for antibiotics however * IV fluids, antiemetics * Hold home bumetanide * Tolerating full liquid diet, advance diet * Enteric panel pending. C diff negative * Monitor daily weights and I's and O's Left renal lesion * Left renal mass with central radiating hypodense areas, possibly an oncocytoma with central scar or renal cell carcinoma with central necrosis. * Reported size 2.1 x 2 x 2.3 cm * Discussed with patient that this could be benign versus cancerous and that she will need to follow-up with urology on discharge * Will need to add urology referral when patient is discharged Chronic conditions * CKD stage III b-Appears to be at baseline-Avoid nephrotoxic agents-Daily BMPs * Paroxysmal Atrial Fibrillation-Rate control: Metoprolol-Anticoagulation: Eliquis * Hypothyroidism-Continue Synthroid * Restless leg syndrome-continue patient's home medication regimen * Hx COPD-Continue home inhalers-Incentive spirometer * Depression/anxiety-Continue home medications * Tobacco use-Advise cessation-Nicotine replacement available if desired * Type 2 diabetes mellitus-Glucose checks and sliding scale insulin-Hold home metformin * Morbid obesity-BMI documented as 40.8 kg/m² at time of admission-Complicates treatment, prognosis, outcomes-Recommend weight loss and lifestyle changes DVT ppx: Not indicated, patient on full dose Eliquis
[2024-12-15] MEDS: Aspirin E.C. 81 MG Tablet PO (08:59)
[2024-12-15] MEDS: APIXABAN 5 MG TABLET PO (08:59)
[2024-12-15] MEDS: Nicotine (PBKC) 14 MG Patch TD (08:59)
[2024-12-15 09:01] VITALS: BP 127/99; PULSE 77
[2024-12-15] MEDS: Metoprolol(XL)Succ 25 MG Tablet PO (09:01)
--- NOTE | 2024-12-15 09:31 | PCM.DC.SUM ---
Providers Date of Admission: 12/12/24 Primary Care Physician: Dr. Jesse Curran, DO Reason For Visit: LEFT RENAL MASS, INTRACTABLE NAUSE, DIZZINESS Diagnosis Discharge Diagnosis (1) Nausea & vomiting: Status: Acute Code(s): R11.2 - Nausea with vomiting, unspecified (2) Left renal mass: Status: Acute Code(s): N28.89 - Other specified disorders of kidney and ureter Plan Nausea/Vomiting/Diarrhea resolved acute enterocolitis v an ileus v other Patient had slightly more formed stool today with no blood in stool and is afebrile however unable to treat on an outpatient basis due to inability to tolerate p.o. given her nausea and vomiting so will admit for supportive care, presently do not see an indication for antibiotics however IV fluids, antiemetics Hold home bumetanide Tolerating full liquid diet, advance diet Enteric panel pending. C diff negative Monitor daily weights and I's and O's Left renal lesion Left renal mass with central radiating hypodense areas, possibly an oncocytoma with central scar or renal cell carcinoma with central necrosis. Reported size 2.1 x 2 x 2.3 cm Discussed with patient that this could be benign versus cancerous and that she will need to follow-up with urology on discharge Will need to add urology referral when patient is discharged Chronic conditions CKD stage III b-Appears to be at baseline-Avoid nephrotoxic agents-Daily BMPs Paroxysmal Atrial Fibrillation-Rate control: Metoprolol-Anticoagulation: Eliquis Hypothyroidism-Continue Synthroid Restless leg syndrome-continue patient's home medication regimen Hx COPD-Continue home inhalers-Incentive spirometer Depression/anxiety-Continue home medications Tobacco use-Advise cessation-Nicotine replacement available if desired Type 2 diabetes mellitus-Glucose checks and sliding scale insulin-Hold home metformin Morbid obesity-BMI documented as 40.8 kg/m² at time of admission-Complicates treatment, prognosis, outcomes-Recommend weight loss and lifestyle changes DVT ppx: Not indicated, patient on full dose Eliquis Medications at Discharge Home Medications aspirin 81 mg tablet,delayed release 81 mg PO DAILY HEART HEALTH #90 tabs 10/25/20 albuterol sulfate 90 mcg/actuation aerosol inhaler 2 puff inhalation Q4H SHORTNESS OF BREATH 01/27/23 bumetanide 1 mg tablet 1 mg PO Q12H EDEMA 01/27/23 calcium 600 mg (as carbonate)-vitamin D3 10 mcg (400 unit) tablet 1 tab PO BID SUPPLEMENT 01/27/23 fluticasone fur. 100 mcg-umeclid 62.5 mcg-vilant 25 mcg inhalat.powder (Trelegy Ellipta) 1 inh inhalation DAILY SHORTNESS OF BREATH/WHEEZING 01/27/23 pravastatin 40 mg tablet 40 mg PO QPM CHOLESTEROL 01/27/23 metoprolol succinate 50 mg tablet,extended release 24 hr 50 mg PO DAILY blood pressure 08/28/23 acetaminophen 500 mg tablet 1,000 mg (2 x 500 mg) PO Q8 #0 tabs 08/31/23 apixaban 5 mg tablet (Eliquis) 5 mg PO BID 03/09/24 empagliflozin 25 mg tablet (Jardiance) 25 mg PO DAILY 03/09/24 gabapentin 400 mg capsule 400 mg PO TID 03/09/24 levothyroxine 75 mcg tablet 75 mcg PO DAILY 03/09/24 meloxicam 7.5 mg tablet 7.5 mg PO DAILY 03/09/24 metformin 500 mg tablet,extended release 24 hr 500 mg PO DAILY 03/09/24 oxycodone-acetaminophen 5 mg-325 mg tablet 1 tab PO Q6H PRN pain 03/09/24 ropinirole 0.5 mg tablet 1 mg PO QHS 03/09/24 venlafaxine 225 mg tablet,extended release 24 hr 225 mg PO DAILY 03/09/24 vitamin B complex 1 tab PO DAILY 06/01/24 Hospital Course Operations None Procedures None Summary of Care Provided Hospital Course: Greater than 30 minutes spent on discharge. Patient reports that nausea. Patient had a noted left renal mass. Further work up with will be necessary. Also it showed dilated small bowel loops with small and large bowel air-fluid levels. Likely gastroenteritis. It took a couple days, but patient is feeling much better. Weight / BMI Weight Weight: 95.8 kg Body Mass Index (BMI) 42.6 ABG / Lab / Microbiology Data 12/14/24 05:45 12/14/24 05:45 Laboratory: Laboratory Results - last 24 hr 12/14/24 12:18: POC Glucose 170 H 12/14/24 16:59: POC Glucose 101 12/15/24 06:18: POC Glucose 93 Microbiology: Microbiology 12/13/24 22:10 Stool Clostridioides difficile (PCR) - Final 12/12/24 21:35 Mucosa - Nasopharyngeal Respiratory Panel (PCR) - Final D/C Instructions DC O2, CPAP, BIPAP Needs Home O2 Discharge instructions: Yes Type of respiratory needs?: Oxygen Oxygen frequency: Continuous Continuous oxygen liters per minute: 2 DC home with Oxygen: Yes Home O2 MD Review: I have reviewed the oxygen testing, and the patient qualifies for home oxygen equipment and portability. The patient is mobile in the home and the community. Meaningful Use Info Meaningful Use Meaningful Use Diagnoses (Choose all that apply): None applicable Discharge Plan Admission Admit Date/Time: 12/12/24 20:06 Primary Reason for Your Visit: gastroenteritis. Attending Provider: Mejia Grissom Primary Care Provider: Jesse Curran Consulting Providers: Gavi Beckham Discharge Orders/Prescriptions Prescriptions: Continued albuterol sulfate 90 mcg/actuation HFA aerosol inhaler 2 puff INHALATION Q4H bumetanide 1 mg tablet 1 mg PO Q12H calcium carbonate-vitamin D3 600 mg-10 mcg (400 unit) tablet 1 tab PO BID Trelegy Ellipta 100-62.5-25 mcg blister with device 1 inh INHALATION DAILY pravastatin 40 mg tablet 40 mg PO QPM metoprolol succinate 50 mg tablet extended release 24 hr 50 mg PO DAILY acetaminophen 500 mg Tablet 1,000 mg PO Q8 Qty: 0 0RF Eliquis 5 mg tablet 5 mg PO BID Jardiance 25 mg tablet 25 mg PO DAILY gabapentin 400 mg capsule 400 mg PO TID levothyroxine 75 mcg tablet 75 mcg PO DAILY meloxicam 7.5 mg tablet 7.5 mg PO DAILY oxycodone-acetaminophen 5-325 mg tablet 1 tab PO Q6H PRN (Reason: pain) ropinirole 0.5 mg tablet 1 mg PO QHS metformin 500 mg tablet extended release 24 hr 500 mg PO DAILY venlafaxine 225 mg tablet extended release 24hr 225 mg PO DAILY vitamin B complex Tablet 1 tab PO DAILY aspirin 81 mg tablet,delayed release (DR/EC) 81 mg PO DAILY Qty: 90 3RF Referrals / Follow Up: Jesse Curran DO [Primary Care Provider, Family Practice] - Within 2 Weeks Disposition Disposition (needs filled in before D/C Order can be placed): Home Health Service Charges/Coding Visit Charges Inpatient E&M: 48880 Disch Hosp >30min
[2024-12-15 09:48] VITALS: BP 127/99; PULSE 77; RESP 16; TEMP 36.5; O2SAT 100
[2024-12-15 10:05] VITALS: O2SAT 97; O2SAT 98
--- NOTE | 2024-12-15 10:11 | PHA.DC.MR.R ---
Pharmacy MD Med Reconciliation Pharmacy Service has performed discharge medication reconciliation for this patient. The patient's discharge medication list was reviewed for discrepancies and discrepancies were resolved. Medications at Discharge Home Medications aspirin 81 mg tablet,delayed release 81 mg PO DAILY HEART HEALTH #90 tabs 10/25/20 albuterol sulfate 90 mcg/actuation aerosol inhaler 2 puff inhalation Q4H SHORTNESS OF BREATH 01/27/23 bumetanide 1 mg tablet 1 mg PO Q12H EDEMA 01/27/23 calcium 600 mg (as carbonate)-vitamin D3 10 mcg (400 unit) tablet 1 tab PO BID SUPPLEMENT 01/27/23 fluticasone fur. 100 mcg-umeclid 62.5 mcg-vilant 25 mcg inhalat.powder (Trelegy Ellipta) 1 inh inhalation DAILY SHORTNESS OF BREATH/WHEEZING 01/27/23 pravastatin 40 mg tablet 40 mg PO QPM CHOLESTEROL 01/27/23 metoprolol succinate 50 mg tablet,extended release 24 hr 50 mg PO DAILY blood pressure 08/28/23 acetaminophen 500 mg tablet 1,000 mg (2 x 500 mg) PO Q8 #0 tabs 08/31/23 apixaban 5 mg tablet (Eliquis) 5 mg PO BID 03/09/24 empagliflozin 25 mg tablet (Jardiance) 25 mg PO DAILY 03/09/24 gabapentin 400 mg capsule 400 mg PO TID 03/09/24 levothyroxine 75 mcg tablet 75 mcg PO DAILY 03/09/24 meloxicam 7.5 mg tablet 7.5 mg PO DAILY 03/09/24 metformin 500 mg tablet,extended release 24 hr 500 mg PO DAILY 03/09/24 oxycodone-acetaminophen 5 mg-325 mg tablet 1 tab PO Q6H PRN pain 03/09/24 ropinirole 0.5 mg tablet 1 mg PO QHS 03/09/24 venlafaxine 225 mg tablet,extended release 24 hr 225 mg PO DAILY 03/09/24 vitamin B complex 1 tab PO DAILY 06/01/24
--- NOTE | 2024-12-15 10:12 | CASEMGMT ---
Discharge Planning DC Summary sent to [facility]. SOC will be 12/17. Kira Krause, DC Planning Asst
--- NOTE | 2024-12-15 10:59 | CASEMGMT ---
Pt does not qualify for increased oxygen rx. Pt to dc this date with [facility] set up.
[2024-12-15 14:47] VITALS: BP 131/61; PULSE 75; RESP 16; TEMP 36.7; O2SAT 99
== END 2024-12-15 15:56 | disposition home health service (06) | DRG 392 ==
LOC: ED 19:25 → MS3 12-13 01:02
PROVIDERS: Admitting Provider Internal Medicine; Emergency Provider Emergency Medicine; PCP Student in an Organized Health Care Education/Training Program
DX: A08.4 Viral intestinal infection, unspecified (principal); K56.7 Ileus, unspecified; Z68.41 Body mass index [BMI] 40.0-44.9, adult; G25.81 Restless legs syndrome; E03.9 Hypothyroidism, unspecified; I48.0 Paroxysmal atrial fibrillation; E11.51 Type 2 diabetes mellitus with diabetic peripheral angiopathy without gangrene; N18.32 Chronic kidney disease, stage 3b; J44.9 Chronic obstructive pulmonary disease, unspecified; I12.9 Hypertensive chronic kidney disease with stage 1 through stage 4 chronic kidney disease, or unspecified chronic kidney disease; F32.A Depression, unspecified; E66.01 Morbid (severe) obesity due to excess calories; E11.22 Type 2 diabetes mellitus with diabetic chronic kidney disease; F17.210 Nicotine dependence, cigarettes, uncomplicated; G47.33 Obstructive sleep apnea (adult) (pediatric); F41.9 Anxiety disorder, unspecified; N28.89 Other specified disorders of kidney and ureter; Z79.82 Long term (current) use of aspirin; Z79.899 Other long term (current) drug therapy; Z79.01 Long term (current) use of anticoagulants; Z79.51 Long term (current) use of inhaled steroids; Z79.84 Long term (current) use of oral hypoglycemic drugs
CPT/HCPCS: 36415; 74177; 80048; 80053; 81001; 82962; 83605; 83690; 83735; 85025; 87493; 87633; 94640; 94668; 97161; 97165; 99284; 99406; Q9967; A4216; J2405